=== PATIENT | male | born 1945 | race Caucasian/White ===

== ENCOUNTER → 2018-08-24 09:22 | Outpatient (CLI) | payer MEDICARE, SELFPAY ==
[2018-08-24] VITALS (8 sets, daily range): BP systolic 129–161; BP diastolic 60–76; PULSE 61–72; RESP 16–18; TEMP 36.4–36.8; O2SAT 95–98; BMI 26.6
[2018-08-24] MEDS: Acetaminophen 325 MG Tablet 650 MG PO (10:40)
[2018-08-24] MEDS: DiphenhydrAMINE 25 MG Capsule 50 MG PO (10:40)
== END ==
PROVIDERS: Family Provider Physician Assistant; PCP Physician Assistant; Referring Provider Internal Medicine Hematology & Oncology; Visit Provider Internal Medicine Hematology & Oncology
DX: D46.20 Refractory anemia with excess of blasts, unspecified (principal)
CPT/HCPCS: 36430; 86850; 86900; 86920; 86922; J7040; P9040; A4216

== ENCOUNTER → 2018-11-12 10:37 | Outpatient (CLI) | payer MEDICARE, SELFPAY ==
[2018-11-12 10:48] VITALS: BP 142/74; PULSE 71; RESP 16; TEMP 36.7; O2SAT 97; BMI 26.2
[2018-11-12] MEDS: Acetaminophen 325 MG Tablet 650 MG PO (10:58)
[2018-11-12 11:39] VITALS: BP 103/58; PULSE 65; RESP 16; TEMP 36.9; O2SAT 97
[2018-11-12 11:43] VITALS: BP 127/63; PULSE 64; RESP 15; TEMP 36.4; O2SAT 97
[2018-11-12 12:39] VITALS: BP 142/72; PULSE 68; RESP 16; TEMP 36.1; O2SAT 97
[2018-11-12 13:41] VITALS: BP 132/62; PULSE 69; RESP 16; TEMP 36.6; O2SAT 97
== END ==
PROVIDERS: Family Provider Physician Assistant; PCP Physician Assistant; Referring Provider Internal Medicine Hematology & Oncology; Visit Provider Internal Medicine Hematology & Oncology
DX: Z51.89 Encounter for other specified aftercare (principal); D46.20 Refractory anemia with excess of blasts, unspecified
CPT/HCPCS: 36430; 86850; 86900; 86920; 86922; J7040; P9016; A4216

== ENCOUNTER → 2018-12-25 08:37 | Outpatient (CLI) | payer MEDICARE, SELFPAY ==
[2018-11-12 10:48] VITALS: BMI 26.2
[2018-12-25] VITALS (7 sets, daily range): BP systolic 132–152; BP diastolic 55–80; PULSE 63–71; RESP 16–18; TEMP 36.1–36.4; O2SAT 95–99; BMI 26.1
== END ==
PROVIDERS: Family Provider Physician Assistant; PCP Physician Assistant; Referring Provider Internal Medicine Hematology & Oncology; Visit Provider Internal Medicine Hematology & Oncology
DX: D46.20 Refractory anemia with excess of blasts, unspecified (principal)
CPT/HCPCS: 36430; 86644; 86850; 86900; 86920; 86922; J7040; P9016; A4216

== ENCOUNTER → 2019-02-19 08:00 | Outpatient (CLI) | payer MEDICARE, SELFPAY ==
[2018-12-25 08:44] VITALS: BMI 26.1
[2019-02-19] VITALS (8 sets, daily range): BP systolic 128–148; BP diastolic 54–63; PULSE 65–74; RESP 16–18; TEMP 36.4–37; O2SAT 98–100; BMI 25.8
== END ==
PROVIDERS: Family Provider Physician Assistant; PCP Physician Assistant; Referring Provider Internal Medicine Hematology & Oncology; Visit Provider Internal Medicine Hematology & Oncology
DX: D46.9 Myelodysplastic syndrome, unspecified (principal)
CPT/HCPCS: 36430; 86850; 86900; 86920; 86922; J7040; P9016; A4216

== ENCOUNTER → 2019-04-16 09:00 | Outpatient (CLI) | payer MEDICARE, SELFPAY ==
[2019-02-19 08:11] VITALS: BMI 25.8
[2019-04-16] VITALS (7 sets, daily range): BP systolic 123–145; BP diastolic 47–89; PULSE 62–76; RESP 15–18; TEMP 36.4–37; O2SAT 98–100; BMI 25.8
== END ==
PROVIDERS: Family Provider Physician Assistant; PCP Physician Assistant; Referring Provider Internal Medicine Hematology & Oncology; Visit Provider Internal Medicine Hematology & Oncology
DX: D46.20 Refractory anemia with excess of blasts, unspecified (principal); D46.9 Myelodysplastic syndrome, unspecified
CPT/HCPCS: 36430; 86850; 86900; 86920; J7040; P9016; A4216

== ENCOUNTER → 2019-05-28 08:27 | Outpatient (CLI) | payer MEDICARE, SELFPAY ==
[2019-04-16 09:09] VITALS: BMI 25.8
[2019-05-28] VITALS (7 sets, daily range): BP systolic 118–142; BP diastolic 45–62; PULSE 58–67; RESP 16–18; TEMP 36.1–36.6; O2SAT 98–100; BMI 25.1
== END ==
PROVIDERS: Family Provider Physician Assistant; PCP Physician Assistant; Referring Provider Internal Medicine Hematology & Oncology; Visit Provider Internal Medicine Hematology & Oncology
DX: D46.20 Refractory anemia with excess of blasts, unspecified (principal)
CPT/HCPCS: 36430; 86850; 86900; 86920; 86922; J7040; P9016; A4216

== ENCOUNTER → 2019-07-09 08:32 | Outpatient (CLI) | payer MEDICARE, SELFPAY ==
[2019-05-28 08:35] VITALS: BMI 25.1
[2019-07-09 08:42] VITALS: BP 148/51; PULSE 85; RESP 16; TEMP 36.6; O2SAT 100; BMI 24.5
[2019-07-09 09:13] VITALS: BP 127/51; PULSE 68; RESP 15; TEMP 36.8; O2SAT 99
[2019-07-09 10:13] VITALS: BP 116/52; PULSE 65; RESP 16; TEMP 36.6; O2SAT 98
[2019-07-09 11:13] VITALS: BP 119/50; PULSE 60; RESP 16; TEMP 36.6; O2SAT 100
[2019-07-09 11:45] VITALS: BP 125/49; PULSE 58; RESP 16; TEMP 36.8; O2SAT 99
[2019-07-09 13:46] VITALS: BP 141/54; PULSE 65; RESP 16; TEMP 36.7; O2SAT 99
== END ==
PROVIDERS: Family Provider Physician Assistant; PCP Physician Assistant; Referring Provider Internal Medicine Hematology & Oncology; Visit Provider Internal Medicine Hematology & Oncology
DX: D46.9 Myelodysplastic syndrome, unspecified (principal)
CPT/HCPCS: 36430; 86850; 86900; 86901; 86920; 86922; J7040; P9016; A4216

== ENCOUNTER → 2019-08-18 07:58 | Outpatient (CLI) | payer MEDICARE, SELFPAY ==
[2019-07-09 08:42] VITALS: BMI 24.5
[2019-08-18] VITALS (7 sets, daily range): BP systolic 126–147; BP diastolic 57–71; PULSE 60–69; RESP 16; TEMP 36.1–36.5; O2SAT 99–100; BMI 24.3
== END ==
PROVIDERS: Family Provider Physician Assistant; PCP Physician Assistant; Referring Provider Internal Medicine Hematology & Oncology; Visit Provider Internal Medicine Hematology & Oncology
DX: D46.20 Refractory anemia with excess of blasts, unspecified (principal)
CPT/HCPCS: 36430; 86850; 86900; 86901; 86920; 86922; J7040; P9016; A4216

== ENCOUNTER → 2019-09-24 09:56 | Outpatient (CLI) | payer MEDICARE, SELFPAY ==
[2019-08-18 08:22] VITALS: BMI 24.3
[2019-09-24] VITALS (7 sets, daily range): BP systolic 124–154; BP diastolic 48–61; PULSE 60–77; RESP 16–18; TEMP 36.1–36.8; O2SAT 98–100; BMI 24.3
== END ==
PROVIDERS: Family Provider Physician Assistant; PCP Physician Assistant; Referring Provider Internal Medicine Hematology & Oncology; Visit Provider Internal Medicine Hematology & Oncology
DX: D46.20 Refractory anemia with excess of blasts, unspecified (principal)
CPT/HCPCS: 36430; 86850; 86900; 86901; 86920; 86922; J7040; P9016; A4216

== ENCOUNTER → 2019-10-29 08:52 | Outpatient (CLI) | payer MEDICARE, SELFPAY ==
[2019-09-24 10:17] VITALS: BMI 24.3
[2019-10-29] VITALS (7 sets, daily range): BP systolic 124–158; BP diastolic 57–72; PULSE 62–77; RESP 16–18; TEMP 36.1–36.3; O2SAT 98–100; BMI 24.8
== END ==
PROVIDERS: Family Provider Physician Assistant; PCP Physician Assistant; Referring Provider Internal Medicine Hematology & Oncology; Visit Provider Internal Medicine Hematology & Oncology
DX: D46.20 Refractory anemia with excess of blasts, unspecified (principal)
CPT/HCPCS: 36430; 86850; 86900; 86901; 86920; 86922; J7040; P9016; A4216

== ENCOUNTER → 2019-12-03 08:26 | Outpatient (CLI) | payer MEDICARE, SELFPAY ==
[2019-10-29 08:58] VITALS: BMI 24.8
[2019-12-03] VITALS (7 sets, daily range): BP systolic 123–144; BP diastolic 44–65; PULSE 62–75; RESP 16–18; TEMP 35.9–36.7; O2SAT 96–100; BMI 24.8
== END ==
PROVIDERS: PCP Physician Assistant; Referring Provider Internal Medicine Hematology & Oncology; Visit Provider Internal Medicine Hematology & Oncology
DX: D46.20 Refractory anemia with excess of blasts, unspecified (principal)
CPT/HCPCS: 36430; 86850; 86900; 86901; 86920; 86922; J7040; P9016; A4216

== ENCOUNTER → 2019-12-17 11:39 | Outpatient (CLI) | payer MEDICARE, SELFPAY ==
[2019-12-03 08:40] VITALS: BMI 24.8
[2019-12-17 11:47] VITALS: BP 163/65; PULSE 80; RESP 18; TEMP 35.7; O2SAT 96; BMI 24.8
[2019-12-17 12:44] VITALS: BP 138/64; PULSE 65; RESP 18; TEMP 36; O2SAT 97
[2019-12-17 13:45] VITALS: BP 137/76; PULSE 78; RESP 16; TEMP 36.7
[2019-12-17 14:11] VITALS: BP 142/59; PULSE 66; RESP 16; TEMP 36.3; O2SAT 98
[2019-12-17 14:31] VITALS: BP 153/67; PULSE 68; RESP 16; TEMP 36.3; O2SAT 98
== END ==
PROVIDERS: PCP Physician Assistant; Referring Provider Internal Medicine Hematology & Oncology; Visit Provider Internal Medicine Hematology & Oncology
DX: D46.20 Refractory anemia with excess of blasts, unspecified (principal)
CPT/HCPCS: 36430; 86850; 86900; 86901; 86920; 86922; J7040; P9016; A4216

== ENCOUNTER → 2019-12-31 08:59 | Outpatient (CLI) | payer MEDICARE, SELFPAY ==
[2019-12-17 11:47] VITALS: BMI 24.8
[2019-12-31 09:05] VITALS: BP 160/68; PULSE 79; RESP 16; TEMP 36.3; O2SAT 98; BMI 24.8
[2019-12-31 09:43] VITALS: BP 145/66; PULSE 67; RESP 16; TEMP 36.6
[2019-12-31 10:43] VITALS: BP 139/62; PULSE 62; RESP 18; TEMP 36.1; O2SAT 97
[2019-12-31 11:42] VITALS: BP 127/62; PULSE 60; RESP 16; TEMP 36.3; O2SAT 98
== END ==
PROVIDERS: PCP Physician Assistant; Referring Provider Internal Medicine Hematology & Oncology; Visit Provider Internal Medicine Hematology & Oncology
DX: D46.20 Refractory anemia with excess of blasts, unspecified (principal)
CPT/HCPCS: 36430; 86850; 86900; 86901; 86920; 86922; J7040; P9016; A4216

== ENCOUNTER → 2020-01-21 08:20 | Outpatient (CLI) | payer MEDICARE, SELFPAY ==
[2019-12-31 09:05] VITALS: BMI 24.8
[2020-01-21 08:29] VITALS: BP 161/60; PULSE 74; RESP 16; TEMP 36.2; O2SAT 100; BMI 24.8
[2020-01-21 09:04] VITALS: BP 133/52; PULSE 68; RESP 16; TEMP 36.6; O2SAT 98
[2020-01-21 10:04] VITALS: BP 133/50; PULSE 67; RESP 16; TEMP 36.4; O2SAT 99
[2020-01-21 10:45] VITALS: BP 135/53; PULSE 66; RESP 16; TEMP 36.4; O2SAT 100
== END ==
PROVIDERS: PCP Physician Assistant; Referring Provider Internal Medicine Hematology & Oncology; Visit Provider Internal Medicine Hematology & Oncology
DX: D46.20 Refractory anemia with excess of blasts, unspecified (principal)
CPT/HCPCS: 36430; 86850; 86900; 86901; 86920; 86922; J7040; P9016; A4216

== ENCOUNTER → 2020-02-23 09:23 | Outpatient (CLI) | payer MEDICARE, SELFPAY ==
[2020-01-21 08:29] VITALS: BMI 24.8
[2020-02-23 09:29] VITALS: BP 155/61; PULSE 78; RESP 16; TEMP 36.2; O2SAT 100; BMI 24.8
[2020-02-23] MEDS: 0.9% NaCl Peripheral Flush Adult/Peds IV (09:46)
[2020-02-23 10:24] VITALS: BP 133/57; PULSE 66; RESP 18; TEMP 36.5; O2SAT 96
[2020-02-23 11:24] VITALS: BP 130/54; PULSE 64; RESP 18; TEMP 36.1; O2SAT 97
[2020-02-23 12:15] VITALS: BP 132/59; PULSE 61; RESP 18; TEMP 36.4; O2SAT 100
== END ==
PROVIDERS: PCP Physician Assistant; Referring Provider Internal Medicine Hematology & Oncology; Visit Provider Internal Medicine Hematology & Oncology
DX: D46.20 Refractory anemia with excess of blasts, unspecified (principal)
CPT/HCPCS: 36430; 86850; 86900; 86901; 86920; 86922; J7040; P9016; A4216

== ENCOUNTER → 2020-03-24 08:31 | Outpatient (CLI) | payer MEDICARE, SELFPAY ==
[2020-02-23 09:29] VITALS: BMI 24.8
[2020-03-24] VITALS (9 sets, daily range): BP systolic 129–143; BP diastolic 53–67; PULSE 57–98; RESP 16–18; TEMP 36.3–37; O2SAT 98–100; BMI 24.8
--- OUTSIDE RECORDS SUMMARY | 2020-08-22 11:03 | XMS RPT_ITS | CCD ---
:1945 External Reference #:[id number] Author Organization [facility] Care Team Providers Name Role Phone Silas Carter) Primary Care Provider Allergies Reported Allergen Reaction(s) Severity Date of Onset Location antibiotics [Other] Other: See Comments 03-15-2011 - [facility] ([id number]) fluticasone / salmeterol Other: See Comments 1 - [facility] ([id number]) PARoxetine Other: See Comments 11-07-2017 [facility] ([id number]) Sulfamethoxazole GI Upset 01-20-2013 - [facility] ([id number]) Medications Medication Name Sig Date Prescriber Location Acetaminophen acetaminophen (TYLENOL EXTRA Ccf Provide r [facility] STRENGTH) 500 mg tablet (991 [id number]) Indications: MDS (myelodysplastic syndrome), low grade (HCC) Take 1,000 mg by mouth as needed. 0 Active Comment: Take 1,000 mg by mouth as ne eded. Albuterol albuterol HFA (VENTOLIN HFA) 06-02-2018 hollingsworth-Victoria) [facility] 90 mcg/actuation inhaler Raul ([id number]) Inhale 2 Puffs as instructed every 4 hours as needed for Wheezing/Shortness of Breath. 1 Inhaler 2 06/02/2018 Active Comment: Inhale 2 Puffs as instructed every 4 hours as needed for Wheezing/Shortness of Breath. Calcium Carbonate calcium carbonate 06-12-2020 Yuan) [facility] (CALCIUM ANTACID) Raul ([id number]) 500 mg chew Take 1-2 tablets by mouth once daily. 0 06/12/2020 Active Comment: Take 1-2 tablets by mouth on ce daily. Cephalexin cephALEXin (KEFLEX) 06-12-2020 - Sunday Yuan) [facility] 500 mg capsule 06-15-2020 Carter Sunday Rosen ([id number]) Indications: E. coli (Pa-C) Carter UTI Take 1 capsule by mouth every 8 hours. Started 06/02/20 21 capsule 0 06/12/2020 06/15/2020 Discontinued Comment: Take 1 capsule by mouth ever y 8 hours. Started 06/02/20 Cholecalciferol cholecalciferol (VITAMIN 06-12-2020 Rojas) [facility] D-3) 5,000 unit tab Carter ([id number]) Indications: MDS (myelodysplastic syndrome), low grade (HCC) Take 1 tablet by mouth once daily. 0 06/12/2020 Active Comment: Take 1 tablet by mouth once daily. COMPOUNDED COMPOUNDED 03-31-2018 [facility] PRESCRIPTION PRESCRIPTION (Niels-Victoria) Carter ([id number]) Indications: Stasis edema of both lower extremities Compression stockings 30-40mmHg 2 pairs Stasis edema of both lower extremities (primary encounter diagnosis) 1 Each 0 03/31/2018 Active COMPOUNDED PRESCRIPTION 03-31-2018 Yuan) [facility] ([id number]) Indications: Stasis edema of Carter both lower extremities Compression stockings 30-40mmHg 2 pairs Stasis edema of both lower extremities (primary encounter diagnosis) 1 Each 0 03/31/2018 Active COMPOUNDED PRESCRIPTION 03-31-2018 Yuan) [facility] ([id number]) Indications: Stasis edema of Carter both lower extremities Compression stockings 30-40mmHg 2 pairs Stasis edema of both lower extremities (primary encounter diagnosis) 1 Each 0 03/31/2018 Active COMPOUNDED PRESCRIPTION 03-31-2018 Yuan) [facility] ([id number]) Indications: Stasis edema of Carter both lower extremities Compression stockings 30-40mmHg 2 pairs Stasis edema of both lower extremities (primary encounter diagnosis) 1 Each 0 03/31/2018 Active COMPOUNDED PRESCRIPTION 03-31-2018 Yuan) [facility] ([id number]) Indications: Stasis edema of Carter both lower extremities Compression stockings 30-40mmHg 2 pairs Stasis edema of both lower extremities (primary encounter diagnosis) 1 Each 0 03/31/2018 Active COMPOUNDED PRESCRIPTION 03-31-2018 Dave-Victoria) [facility] ([id number]) Indications: Stasis edema of Carter both lower extremities Compression stockings 30-40mmHg 2 pairs Stasis edema of both lower extremities (primary encounter diagnosis) 1 Each 0 03/31/2018 Active COMPOUNDED PRESCRIPTION 03-31-2018 Dave-Victoria) [facility] ([id number]) Indications: Stasis edema of Carter both lower extremities Compression stockings 30-40mmHg 2 pairs Stasis edema of both lower extremities (primary encounter diagnosis) 1 Each 0 03/31/2018 Active COMPOUNDED PRESCRIPTION 03-31-2018 Dave-C) [facility] ([id number]) Indications: Stasis edema of Carter both lower extremities Compression stockings 30-40mmHg 2 pairs Stasis edema of both lower extremities (primary encounter diagnosis) 1 Each 0 03/31/2018 Active COMPOUNDED PRESCRIPTION 03-31-2018 [facility] ([id number]) Indications: Stasis edema of Carter both lower extremities Compression stockings 30-40mmHg 2 pairs Stasis edema of both lower extremities (primary encounter diagnosis) 1 Each 0 03/31/2018 Active COMPOUNDED PRESCRIPTION 03-31-2018 Yuan) [facility] ([id number]) Indications: Stasis edema of Carter both lower extremities Compression stockings 30-40mmHg 2 pairs Stasis edema of both lower extremities (primary encounter diagnosis) 1 Each 0 03/31/2018 Active COMPOUNDED PRESCRIPTION 03-31-2018 Dave-Victoria) [facility] ([id number]) Indications: Stasis edema of Carter both lower extremities Compression stockings 30-40mmHg 2 pairs Stasis edema of both lower extremities (primary encounter diagnosis) 1 Each 0 03/31/2018 Active COMPOUNDED PRESCRIPTION 03-31-2018 Dave-Victoria) [facility] ([id number]) Indications: Stasis edema of Carter both lower extremities Compression stockings 30-40mmHg 2 pairs Stasis edema of both lower extremities (primary encounter diagnosis) 1 Each 0 03/31/2018 Active COMPOUNDED PRESCRIPTION 03-31-2018 Dave-C) [facility] ([id number]) Indications: Stasis edema of Carter both lower extremities Compression stockings 30-40mmHg 2 pairs Stasis edema of both lower extremities (primary encounter diagnosis) 1 Each 0 03/31/2018 Active COMPOUNDED PRESCRIPTION 03-31-2018 Yuan) [facility] ([id number]) Indications: Stasis edema of Carter both lower extremities Compression stockings 30-40mmHg 2 pairs Stasis edema of both lower extremities (primary encounter diagnosis) 1 Each 0 03/31/2018 Active Comment: Compression stockings 30-40m mHg 2 pairs Stasis edema of both lower e xtremities (primary encounter diagnosis) Cranberry preparation Cranberry 400 mg 06-12-2020 Rosen (MattieC ) [facility] cap Take 4 capsules Carter ([id number]) by mouth once daily. 0 06/12/2020 Active Comment: Take 4 capsules by mouth onc e daily. Fluconazole fluconazole 06-12-2020 - Sunday Yuan) [facility] (DIFLUCAN) 150 mg 06-13-2020 Raul Rosen ([id number] ) tablet Indications: (Niels-C) Raul Dysuria Take 1 tablet by mouth once daily for 1 day. 1 tablet 0 06/12/2020 06/13/2020 Comment: Take 1 tablet by mouth once daily for 1 day. gabapentin gabapentin (NEURONTIN) 05-23-2020 - Sunday Rosen [facility] 300 mg capsule 08-21-2020 (MattieC) Raul ([id number]) Indications: Chronic midline low back pain without sciatica , Polyneuropathy in other diseases classified elsewhere (HCC) Take 1 capsule by mouth three times daily for 90 days. 270 capsule 1 05/23/2020 08/21/2020 Active Comment: Take 1 capsule by mouth thre e times daily for 90 days. guaiFENesin guaiFENesin (MUCINEX) 06-12-2020 - Sunday Rosen (MattieC) Cl bernice [facility] 600 mg 12 hr tablet 06-15-2020 Raul Rosen ([id number]) Take 2 tablets by (Niels-Victoria) Carter mouth twice daily. Started 06/02/20 14 tablet 0 06/12/2020 06/15/2020 Discontinued Comment: Take 2 tablets by mouth twic e daily. Started 06/02/20 montelukast montelukast (SINGULAIR) 02-16-2020 Shaheed Shukla [facility] 10 mg tablet Take 1 ([id number]) tablet by mouth daily at bedtime. 90 tablet 3 02/16/2020 Active Comment: Take 1 tablet by mouth daily at bedtime. omega-3 fatty acids omega-3 fatty acids 02-27-2017 - Silas [facility] (FISH OIL (FISH OIL 06-15-2020 (Niels-Victoria) Carter ([id number]) CONCENTRATE) 1,000 CONCENTRATE) 1,000 M Silas mg cap mg cap Take 2 (Diaz) Carter capsules by mouth twice daily. 360 capsule 3 02/27/2017 06/15/2020 Discontinued Comment: Take 2 capsules by mouth twi ce daily. Omeprazole omeprazole (PRILOSEC) 20 mg 06-08-2020 [facility] ([id number]) capsule Take 2 capsules by mouth once daily. 180 capsule 0 06/08/2020 Active Comment: Take 2 capsules by mouth onc e daily. POLYETHYLENE GLYCOL polyethylene glycol [id number] (MIRALAX) 17 (Diaz) Carter ([id number]) gram packet Indications: Chronic constipation Take 1 Packet by mouth once daily. 0 06/12/2020 Active Comment: Take 1 Packet by mouth once daily. tadalafil Tadalafil 2.5 mg tab 06-19-2020 Silas (Diaz) [facility] Indications: BPH with Carter (65514 ) obstruction/lower urinary tract symptoms Take 1 tablet by mouth once daily. 30 tablet 5 06/19/2020 Active Comment: Take 1 tablet by mouth once daily. Vitamin B6 pyridoxine, vitamin B6, (VITAMIN Ccf Prov ider [facility] (75485) B-6) 100 mg tablet Take 100 mg by mouth twice daily. 0 Active Comment: Take 100 mg by mouth twice d aily. 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 - [facility] macroglobulinemia (75469) Other nervous system 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 - [facility] disorders with another disorder (45399 ) Pulmonary heart disease Pulmonary hypertension Active 020 - [facility] (19350) Respiratory failure; Acute respiratory failure Active - [facility] insufficiency; arrest (48527 ) (adult) Unclassified Patient encounter status Active 06-02-2020 - [facility] (07807) Unclassified H/O: blood transfusion Active 12-24-2018 - [facility] (66596) Unclassified Protein level - finding Active 07-14-2015 - [facility] (05916) Past or Other Problems Category Problem Name Status Date Location Deficiency and other Macrocytic anemia Completed 07-14-2015 - [facility] anemia (28612) Neoplasms of Myelodysplastic syndrome Completed 12-13-2015 - [facility] unspecified nature or (clinical) (72151 ) uncertain behavior Other and unspecified Benign neoplasm of rectum Completed 2011 - [facility] benign neoplasm and anal canal (48679) Other and unspecified Benign neoplasm of colon Completed 012 - [facility] benign neoplasm (48705) Other connective Swelling of limb Completed 05-22-2018 - [facility] tissue disease (08707) Other lower Cough Completed 05-22-2018 - [facility] respiratory disease (62905) Other screening for Monoclonal IgM present Completed 08-14-2015 - [facility] suspected conditions (92855) (not mental disorders or infectious disease) Residual codes; Family history of Completed 01-23-2012 - [facility] unclassified malignant neoplasm of (08602 ) gastrointestinal tract Varicose veins of Venous varices Completed 01-30-2012 - [facility] lower extremity (53278) Results Result Name Value Range Unit Interpretation Flag Date Location cnpn on 2020-07-27 CNPN Telephone (HEMSANTI) Normal 07-27-2020 [facility] LORETA HURST ([id number]) 1945 M [facility] Date Time Provider Department ([id number]) 07/27/20 STEVEN AKERS During your visit today, we recorded the following informati on about you: Marina Martinez Pss 07/27/2020 3:39 PM Signed Please call patient with lab results. He is asking if he nee ds to have treatment tomorrow at [facility]. Margot De La Rosa LPN 07/27/2020 3:54 PM Signed Patient scheduled for 1 unit PRBC's 07/28/2020 @ [facility], [facility]. Orders faxed. Patient and lab aware. Margot De La Rosa LPN Allergies As of Date: 07/27/2020 Noted Allergy Reaction ADVAIR DISKUS (FLUTICASONE PROPIO*03/15/2011 14 - Other: See Comments Comments: oral yeast infection antibiotics [Other] 03/15/2011 14 - Other: See Comments Comments: Anything in Levaquin family BACTRIM (SULFAMETHOXAZOLE) 01/20/2013 8 - GI Upset PAXIL (PAROXETINE HCL) 11/07/2017 14 - Other: See Comments Comments: Mouth sores, sore throat, salivating constantly, t in taste in his mouth Date Reviewed: 06/15/2020 Reviewed by: Steven Akers - Fully Assessed Reason for Visit: Results [95] Prescriptions as of 07/27/2020 Sig: TADALAFIL 2.5 MG TABLET Take 1 tablet by mouth once d* CALCIUM CARBONATE 200 MG CALC* Take 1-2 tablets by mouth onc * CRANBERRY 400 MG CAPSULE Take 4 capsules by mouth once* CHOLECALCIFEROL (VITAMIN D3) * Take 1 tablet by mouth once d * POLYETHYLENE GLYCOL 3350 17 G* Take 1 Packet by mouth once d * OMEPRAZOLE 20 MG CAPSULE,PORTER* Take 2 capsules by mouth once * GABAPENTIN 300 MG CAPSULE Take 1 capsule by mouth three* MONTELUKAST 10 MG TABLET Take 1 tablet by mouth daily * ALBUTEROL SULFATE HFA 90 MCG/* Inhale 2 Puffs as instructed * COMPOUNDED PRESCRIPTION Compression stockings 30-40mm* PYRIDOXINE (VITAMIN B6) 100 M* Take 100 mg by mouth twice da * ACETAMINOPHEN 500 MG TABLET Take 1,000 mg by mouth as nee* Problem List As Of Date 07/27/2020 Noted Resolved Diverticulosis [K57.90] 01/23/2012 Family history of malignant neoplasm of gastroi*01/23/2012 More... 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 Pulmonary hypertension, mild (HCC) [I27.20] 06/12/2020 Acute respiratory failure with hypoxia (HCC) [J*06/12/2020 Ileus (HCC) [K56.7] 06/12/2020 Encounter Status:Closed by MARGOT DE LA ROSA LPN on 07/27/20 cbc and differential on 2020-07-27 Abs Baso 0.03 <0.11 k/uL Normal 07-27-2020 [facility] ([id number]) Abs Vance 0.35 <0.87 k/uL Normal 07-27-2020 [facility] ([id number]) Abs Neut 3.12 1.45-7.50 k/uL Normal 07-27-2020 [facility] (75782) Absolute nRBC <0.01 <0.01 Normal 07-27-2020 [facility] (24533) Basophils/100 WBC 0.6 % Normal 07-27-2020 [facility] (Bld) [facility] ([id number]) DTYPE Auto Diff Normal 07-27-2020 [facility] (48560) Eosinophils (Bld) 0.06 <0.46 k/uL Normal 07-27-2020 [facility] [#/Vol] [facility] (74301) Eosinophils/100 WBC 1.3 % Normal 07-27-2020 [facility] (Bld) [facility] ([id number]) Erythrocyte 22.4 11.5-15.0 % High 07-27-2020 [facility] distribution width [facility] (03287) (RBC) [Ratio] Hematocrit (Bld) 26.8 39.0-51.0 % Low 07-27-2020 [facility] [Volume fraction] [facility] (71434) Hemoglobin (Bld) 8.9 13.0-17.0 g/dL Low 07-27-2020 [facility] [Mass/Vol] [facility] ([id number]) Lymphocytes (Bld) 1.06 1.00-4.00 k/uL Normal 07-27-2020 [facility] [#/Vol] [facility] (91763) Lymphocytes/100 WBC 22.9 % Normal 07-27-2020 [facility] (d) [place] (47510) MCH (RBC) [Entitic 34.6 26.0-34.0 pG High 07-27-2020 [facility] mass] [facility] (17954) MCHC (RBC) 33.2 30.5-36.0 g/dL Normal 07-27-2020 [facility] [Mass/Vol] [facility] (27405) MCV (RBC) [Entitic 104.3 80.0-100.0 fL High 07-27-2020 [facility] vol] [facility] (27277) Monocytes/100 WBC 7.6 % Normal 07-27-2020 [facility] (Bld) [place] (68228) Neutrophils/100 WBC 67.6 % Normal 07-27-2020 [facility] (Bld) [facility] (57156) NRBCs 0.0 0 /100 WBC Normal 07-27-2020 [facility] (14850) Platelet mean volume 10.2 9.0-12.7 fL Normal 0 [facility] (Bld) [Entitic vol] [facility] (93413) Platelets (Bld) 260 150-400 k/uL Normal 07-27-2020 [facility] [#/Vol] [facility] (77846) RBC (Bld) [#/Vol] 2.57 4.20-6.00 m/uL Low 07-27-2020 [facility] (75074) WBC (Bld) [#/Vol] 4.62 3.70-11.00 k/uL Normal 07-27-2020 [facility] (06333) cnpn on 2020-06-29 CNPN Telephone (HEMAWS) Normal 06-29-2020 [facility] LORETA HURST ([id number]) 1945 M [place] Date Time Provider Department () 06/29/20 STEVEN AKERS During your visit today, we recorded the following informati on about you: Margot De La Rosa LPN 06/29/2020 12:23 PM Signed Patient scheduled for 2 units PRBC's 06/30/2020 @ 09, [facility]. Orders faxed. Patient and lab aware. Margot De La Rosa LPN Allergies As of Date: 06/29/2020 Noted Allergy Reaction ADVAIR DISKUS (FLUTICASONE PROPIO*03/15/2011 14 - Other: See Comments Comments: oral yeast infection antibiotics [Other] 03/15/2011 14 - Other: See Comments Comments: Anything in Levaquin family BACTRIM (SULFAMETHOXAZOLE) 01/20/2013 8 - GI Upset PAXIL (PAROXETINE HCL) 11/07/2017 14 - Other: See Comments Comments: Mouth sores, sore throat, salivating constantly, t in taste in his mouth Date Reviewed: 06/15/2020 Reviewed by: Steven Akers - Fully Assessed Reason for Visit: Transfusion [880] Prescriptions as of 06/29/2020 Sig: TADALAFIL 2.5 MG TABLET Take 1 tablet by mouth once d* CALCIUM CARBONATE 200 MG CALC* Take 1-2 tablets by mouth onc * CRANBERRY 400 MG CAPSULE Take 4 capsules by mouth once* CHOLECALCIFEROL (VITAMIN D3) * Take 1 tablet by mouth once d * POLYETHYLENE GLYCOL 3350 17 G* Take 1 Packet by mouth once d * OMEPRAZOLE 20 MG CAPSULE,PORTER* Take 2 capsules by mouth once * GABAPENTIN 300 MG CAPSULE Take 1 capsule by mouth three* MONTELUKAST 10 MG TABLET Take 1 tablet by mouth daily * ALBUTEROL SULFATE HFA 90 MCG/* Inhale 2 Puffs as instructed * COMPOUNDED PRESCRIPTION Compression stockings 30-40mm* PYRIDOXINE (VITAMIN B6) 100 M* Take 100 mg by mouth twice da * ACETAMINOPHEN 500 MG TABLET Take 1,000 mg by mouth as nee* Problem List As Of Date 06/29/2020 Noted Resolved Diverticulosis [K57.90] 01/23/2012 Family history of malignant neoplasm of gastroi*01/23/2012 More... 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 Pulmonary hypertension, mild (HCC) [I27.20] 06/12/2020 Acute respiratory failure with hypoxia (HCC) [J*06/12/2020 Ileus (HCC) [K56.7] 06/12/2020 Encounter Status:Closed by MARGOT DE LA ROSA LPN on 06/29/20 cbc and differential on 2020-06-29 Abs Baso 0.03 <0.11 k/uL Normal 06-29-2020 [facility] ([id number]) Abs Vance 0.33 <0.87 k/uL Normal 06-29-2020 [facility] ([id number]) Abs Neut 2.72 1.45-7.50 k/uL Normal 06-29-2020 [facility] (75457) Absolute nRBC <0.01 <0.01 Normal 06-29-2020 [facility] (08631) Basophils/100 WBC 0.7 % Normal 06-29-2020 [facility] (d) [place] (25992) DTYPE Auto Diff Normal 06-29-2020 [facility] ([id number]) Eosinophils (d) 0.06 <0.46 k/uL Normal 06-29-2020 [facility] [#/Vol] [place] ([id number]) Eosinophils/100 WBC 1.4 % Normal 06-29-2020 [facility] (Bld) [place] ([id number]) Erythrocyte 21.1 11.5-15.0 % High 06-29-2020 [facility] distribution width [facility] (42301) (RBC) [Ratio] Hematocrit (Bld) 28.0 39.0-51.0 % Low 06-29-2020 [facility] [Volume fraction] [facility] (39772) Hemoglobin (Bld) 9.2 13.0-17.0 g/dL Low 06-29-2020 [facility] [Mass/Vol] [place] (33786) Lymphocytes (Bld) 1.27 1.00-4.00 k/uL Normal 06-29-2020 [facility] [#/Vol] [facility] (46358) Lymphocytes/100 WBC 28.7 % Normal 06-29-2020 [facility] (Bld) [facility] ([id number]) MCH (RBC) [Entitic 33.7 26.0-34.0 pG Normal 06-29-2020 [facility] mass] [facility] (63445) MCHC (RBC) 32.9 30.5-36.0 g/dL Normal 06-29-2020 [facility] [Mass/Vol] [facility] (76956) MCV (RBC) [Entitic 102.6 80.0-100.0 fL High 06-29-2020 [facility] vol] [facility] (00734) Monocytes/100 WBC 7.5 % Normal 06-29-2020 [facility] (Bld) [facility] (88474) Neutrophils/100 WBC 61.7 % Normal 06-29-2020 [facility] (Bld) [facility] (15675) NRBCs 0.0 0 /100 WBC Normal 06-29-2020 [facility] (28230) Platelet mean volume 10.8 9.0-12.7 fL Normal 0 [facility] (Bld) [Entitic vol] [facility] (82054) Platelets (Bld) 270 150-400 k/uL Normal 06-29-2020 [facility] [#/Vol] [facility] (95570) RBC (Bld) [#/Vol] 2.73 4.20-6.00 m/uL Low 06-29-2020 [facility] (55440) WBC (Bld) [#/Vol] 4.42 3.70-11.00 k/uL Normal 06-29-2020 [facility] (52277) No panel information on 2020-06-29 Packaging Engineer the AASM Manual for Scoring of 06-29-2020 [facility] (13696) Sleep and Associated Events version 2.5. Packaging Engineer Apnea definition: The peak 06-29-2020 [facility] (81955) signal excursions drop by >90% of pre-event Packaging Engineer baseline using an oronasal 06-29-2020 [facility] (82380) thermal sensor (diagnostic study), PAP device flow Packaging Engineer (titration study) or an [facility] (52050) alternative apnea sensor (diagnostic study). The Packaging Engineer duration of the >90% drop in 06-29-2020 [facility] (08225) signal excursion is =10 seconds. Packaging Engineer Hypopnea definition: The peak 06-29-2020 [facility] (93395) signal excursions drop by =30% of pre-event Packaging Engineer baseline using nasal pressure 06-29-2020 [facility] ([facility]) (diagnostic study), PAP device flow (titration Packaging Engineer study) or an alternative 0 06-29-2020 [facility] ([facility]) hypopnea sensor (diagnostic study). The duration of Packaging Engineer the =30% drop in signal [facility] ([facility] Center) excursion is =10 seconds. There is a greater than or Packaging Engineer equal to 4% oxygen 020 [facility] ([facility]) desaturation from pre-event baseline. Packaging Engineer RESPIRATORY DATA: 06-29-20 [facility] ([facility]) Packaging Engineer The study started at 22:19:28 06-29-2020 [facility] ([facility]) and ended at 05:32:55 and the total recording Packaging Engineer time was 433 minutes. By 06-29-2020 [facility] ([facility]) convention, sleep is assumed for the whole Packaging Engineer recording. Snoring was noted. 06-29-2020 [facility] ([facility]) There was a total of 17 respiratory events. Of Packaging Engineer these events, the total number 06-29-2020 [facility] ([facility]) of apneas was 0 (0 obstructive, 0 mixed, and 0 Packaging Engineer central) and 17 hypopneas. The 06-29-2020 [facility] ([facility]) respiratory event index (MYRTLE) was 2.4 events Packaging Engineer per hour of study time. The 06-29-2020 [facility] ([facility]) mean oxygen saturation during the study was Packaging Engineer [facility] Sleep [facility] ([facility]) Disorders [facility] Packaging Engineer minutes at oxygen saturation 06-29-2020 [facility] ([facility]) measured less than 90% (0.3% of recording time) Packaging Engineer and 0.9 minutes at oxygen 06-29-2020 [facility] ([facility]) saturation measured at or less than 88% (0.2% of Packaging Engineer recording time). 0 [facility] ([facility]) Packaging Engineer Time MYRTLE/AHI 06-29-2020 [facility] ([facility]) Packaging Engineer Supine 3.5 min 0.0 020 [facility] ([facility]) Packaging Engineer Off-Supine 430.0 min 2.4 0 06-29-2020 [facility] ([facility]) Packaging Engineer test. Since the home sleep 06-29-2020 [facility] ([id number]) apnea test does not measure sleep, the MYRTLE is most Packaging Engineer ECG DATA: 06-29-2020 [facility] ([facility]) Packaging Engineer The average heart rate was [address] [place] [address]) bpm with a range of 55 bpm to 80 bpm. Packaging Engineer ICSD DIAGNOSIS: 06-29-2020 [facility] ([facility]) Packaging Engineer Primary Snoring [R06.83] 0 06-29-2020 [facility] ([facility]) Packaging Engineer Sleep Disorder, Unspecified 06-29-2020 [place] [address]) [G47.9] Packaging Engineer IMPRESSION: 06-29-2020 [facility] ([facility]) Packaging Engineer This study does not confirm [facility] ([facility]) absence of sleep apnea. Packaging Engineer Given the intrinsic 2019 [facility] ([facility]) limitations of home sleep testing in terms of lack of Packaging Engineer detection of sleep time and [address] [place] [address] ([facility]) lack of detection of electroencephalogram-based Packaging Engineer arousals to score potentially [address] [place] [address]) important respiratory events in addition to Packaging Engineer increased possibility of [address] [place] [address] ([facility]) unresolved technical issues, the degree of sleep Packaging Engineer apnea reflected in this study [address] ([facility]) may be an underestimate of the true degree of Packaging Engineer sleep disordered breathing. 06-29-2020 [facility] ([facility]) Packaging Engineer RECOMMENDATIONS: 0 [facility] ([facility]) Packaging Engineer This type of sleep study may [address] [place] [address]) underestimate the severity of sleep apnea. Packaging Engineer Recommend an in-laboratory [address] [place] [address]) polysomnogram if sleep apnea remains highly Packaging Engineer suspected. 06-29-2020 [facility] ([facility]) Packaging Engineer INTERPRETING PHYSICIAN: [address] [place] [address] ([facility]) Packaging Engineer I attest that [facility] [address] epoch by epoch review of the entire raw data. Packaging Engineer Araceli Morales MD, MS, [facility], [facility] [place] [address] ([facility]) [facility] Packaging Engineer Diplomate of the [place] [address] [place] [address] ([facility]) Board of Sleep Medicine Packaging Engineer 06-29-2020 [facility] ([facility]) Packaging Engineer Report Digitally Signed By: 06-29-2020 [facility] ([facility]) Packaging Engineer ARACELI MORALES M.D. (06/29/2020 06-29-2020 [facility] ([facility]) 6:05:14 PM) Packaging Engineer index has been replaced by the 06-29-2020 [facility] ([facility]) respiratory event index for home sleep apnea Packaging Engineer events x 60 / TRT (total 0 06-29-2020 [facility] ([facility]) recording time in minutes). Note: the apnea hypopnea Packaging Engineer MYRTLE definition: Respiratory 06-29-2020 [facility] ([facility]) event index (MYRTLE), calculated as respiratory Packaging Engineer abdominal effort, and body 06-29-2020 [facility] ([facility]) position. Packaging Engineer pressure transducer, snoring 06-29-2020 [facility] ([facility]) via nasal pressure transducer, chest and Packaging Engineer rate, oxygen saturation, 0 06-29-2020 [place] [address]) continuous airflow with thermistor and nasal Packaging Engineer a registered sleep [address] [place] [address]) technologist. The monitored parameters included heart Packaging Engineer and was unattended. The [facility] ([facility]) patient was instructed on proper use of the device by Packaging Engineer Procedure: This study was 06-29-2020 [facility] ([facility]) performed using a Type III ambulatory PSG device Packaging Engineer Sleep procedure: PSG 06-29 [facility] ([facility]) unattended Type III, minimum of 4 parameters ([id number]) Packaging Engineer ; Fax: 0 06-29-2020 [facility] ([facility]) Packaging Engineer Medications: Tylenol, Ventolin 06-29-2020 [facility] ([facility]) HFA, Neurontin, Singulair, Prilosec Packaging Engineer failure with hypoxia 06-29 [facility] ([facility]) Packaging Engineer Myelodysplastic syndrome, 06-29-2020 [facility] ([facility]) Pulmonary hypertension, Polyneuropathy, Respiratory Packaging Engineer Past medical history: Allergic 06-29-2020 [facility] ([facility]) rhinitis, Anxiety, Depression, GERD, Packaging Engineer throat. The patient endorses 06-29-2020 [facility] ([facility]) being a habitual side sleeper. Packaging Engineer snorting, multiple awakenings 06-29-2020 [facility] ([facility]) from sleep, and waking up with dry mouth/sore Packaging Engineer sleepiness, fatigue, snoring, 06-29-2020 [facility] ([facility]) witnessed apneas, waking up choking, gasping, Packaging Engineer Sleep history: The patient is 06-29-2020 [facility] ([facility]) a 75 year old male with a history of daytime Packaging Engineer Referring Provider: uSnday CARTER 06-29-2020 [facility] ([facility]) Mailcode: [id number] Packaging Engineer 93.0%, with a minimum oxygen 06-29-2020 [facility] ([facility]) saturation of 90.0%. The patient spent 1.4 Packaging Engineer Age: 75 (: 1945) ESS: 06-29-2020 [facility] ([facility]) Neck Circ. (cm): 38.0 Packaging Engineer Name: LORETA HURST Date of 06-29-2020 [facility] ([facility]) Study: 06/20/2020 [facility]#: [id number] Packaging Engineer Home Sleep Apnea Test (HSAT) 06-29-2020 [facility] ([facility]) Study Report Packaging Engineer [address] [facility] [address], 06-29-2020 [facility] ([facility]) [place] [address] Packaging Engineer Total 433.5 min 2.4 2019 [facility] ([facility]) Packaging Engineer accurate index of respiratory 06-29-2020 [facility] ([facility]) events. The MYRTLE is a surrogate of the AHI per progress on 2020-06 PROGRESS HNO ID: [id number] Normal 06-26-2020 [facility] Author: Alexia Mancera [facility] ([id number]) Service: ? Author Type: ? Type: Progress Notes Filed: 06/26/2020 9:26 AM Note Text: Sleep Study Check-In Documentation Date: June 26, 2020 Name: Loreta Husrt Comments: HST was returned in working order with all sleep q uflaco Mancera [facility] on 2020-06-22 CNPN Telephone (FAMPWS) Normal 06-22-2020 [facility] LORETA HURST ([id number]) 1945 [facility] Date Time Provider Department ([id number]) 06/22/20 CARTER (DIAZ) ENRIQUEPWS During your visit today, we recorded the following informati on about you: Malachi Leach LPN 06/22/2020 10:04 AM Signed Prior Authorization has been completed online at [employer] for Tadalafil, will await response. ORTEGA- [id number] Please keep encounter open until final decision has been rec eived and documented from insurance company. Stacey Leach LPN Vadim Bebo 06/22/2020 1:51 PM Signed Vascular Closure Plan returned call stating me dication has been approved. She will fax details. Malachi Leach LPN 06/26/2020 3:12 PM Signed Approval recieved and sent to scanning. Stacey Leach LPN Allergies As of Date: 06/22/2020 Noted Allergy Reaction ADVAIR DISKUS (FLUTICASONE PROPIO*03/15/2011 14 - Other: See Comments Comments: oral yeast infection antibiotics [Other] 03/15/2011 14 - Other: See Comments Comments: Anything in Levaquin family BACTRIM (SULFAMETHOXAZOLE) 01/20/2013 8 - GI Upset PAXIL (PAROXETINE HCL) 11/07/2017 14 - Other: See Comments Comments: Mouth sores, sore throat, salivating constantly, t in taste in his mouth Date Reviewed: 06/15/2020 Reviewed by: Steven Akers - Fully Assessed Reason for Visit: Insurance Authorization [[id number]] Cmt: Tadalafil Prescriptions as of 06/22/2020 Sig: TADALAFIL 2.5 MG TABLET Take 1 tablet by mouth once d* CALCIUM CARBONATE 200 MG CALC* Take 1-2 tablets by mouth onc * CRANBERRY 400 MG CAPSULE Take 4 capsules by mouth once* CHOLECALCIFEROL (VITAMIN D3) * Take 1 tablet by mouth once d * POLYETHYLENE GLYCOL 3350 17 G* Take 1 Packet by mouth once d * OMEPRAZOLE 20 MG CAPSULE,PORTER* Take 2 capsules by mouth once * GABAPENTIN 300 MG CAPSULE Take 1 capsule by mouth three* MONTELUKAST 10 MG TABLET Take 1 tablet by mouth daily * ALBUTEROL SULFATE HFA 90 MCG/* Inhale 2 Puffs as instructed * COMPOUNDED PRESCRIPTION Compression stockings 30-40mm* PYRIDOXINE (VITAMIN B6) 100 M* Take 100 mg by mouth twice da * ACETAMINOPHEN 500 MG TABLET Take 1,000 mg by mouth as nee* Problem List As Of Date 06/22/2020 Noted Resolved Diverticulosis [K57.90] 01/23/2012 Family history of malignant neoplasm of gastroi*01/23/2012 More... 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 Pulmonary hypertension, mild (HCC) [I27.20] 06/12/2020 Acute respiratory failure with hypoxia (HCC) [J*06/12/2020 Ileus (HCC) [K56.7] 06/12/2020 Encounter Status:Closed by MALACHI LEACH LPN on 06/26/20 progress on 2020-06 PROGRESS HNO ID: [id number] Normal 06-19-2020 [facility] Author: Martha Dominguez ([id number]) Service: ? Author Type: ? 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 Request/Comment: - Specimen received in preservative Critically 06-15-2020 [facility] identified Cx Nom Culture Result - <10,000 CFU /ml Enterococcus faecalis --> ABNORMAL ALERT Cephalosporins, clindamycin, and TMP-SMX are not effective for the treatment of enterococcal infections. --> ABNORMAL AL abnormal Clinic (U) ERT Insignificant colony count. No further workup. --> ABNOR MAL ALERT [facility] ([id number]) Comment: Performed By: #### URCUL ### #[facility] [id number] [place], [place] [phone] progress on 2020-06 PROGRESS HNO ID: [id number] Normal 06-15-2020 [facility] Author: Steven Akers [facility] Service: ? [facility] Author Type: Physician ([id number]) Type: Progress Notes Filed: 06/15/2020 9:59 AM Note Text: Diagnoses: 1) MDS--RARS. 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 Transfusion dependent. 5) Sensory neuropathy. HPI: The patient is a 75 yo male who had an unremarkable PMH . Evaluated 06/29/2015 for c/o sore throat, malaise and low grade fever t hat had been going on for about 2 weeks. Was found to have macrocytic ane beka and elevated serum iron and ferritin. Stool hemoccult negative. 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 Declined therapy. Current therapy: 1) Periodic RBC transfusion. Presents for ongoing oncologic management. Interim history: Was admitted to [facility] ICU for 3 days for urosepsis last week J alfonzo. Had dysuria and fever to 104.5. Symptoms improved but still some dysuria. Following up with PCP. No symptoms of cardiomyopathy including chest pain/pressure, palpitations, shortness of breath at rest, lower extremity swelling/edema, PND or orthopnea. Neuropathy stable--numbness limited to toes and balls of fee t. PMH, medications and allergies as below personally reviewed by me today. Any changes documented in appropriate section. ROS: Constitutional: No episode of fever, shaking chill and night sweats. Appetite is normal. Neuro: Denies vertigo and imbalance. HEENT: No recent change in voice, vision. Resp: Denies cough, wheeze and hemoptysis. CVS: See above. GI: No dysphagia or odynophagia. No nausea or vomiting. [facility] are working normally. Has occasional diarrhea. Endo: No hot flashes. Musculoskeletal: Denies bone, back, joint and muscular pain. Derm: No rash. Heme: No unusual bleeding or bruising. Psych: Normal mood. PHYSICAL EXAM: Vitals: Blood pressure 142/65, pulse 68, temperature 36.4 ?C (97.6 ?F), temperature source Temporal, weight 79.8 kg (176 lb), SpO2 9 8 %. Well-appearing and in no acute distress. EYES: Sclerae are anicteric bilaterally. NECK: Supple. LYMPHATIC: There is no palpable cervical or supraclavicular adenopathy. RESPIRATORY: Inspiratory breath sounds are of normal intensi ty in all ariza. No rales, wheezes or rhonchi. CARDIOVASCULAR: Rhythm is regular. Normal intensity S1/S2. ABDOMEN: The abdomen is nondistended. Still very tender LUQ. Extremities: No swelling. Has compression stockings on. SKIN: No jaundice or rash. No petechiae. NEUROLOGIC: equine breeder II-XII are grossly intact. No focal motor we akness. LABS: Component Latest Ref Rng AND Units 06/08/2020 WBC 3.70 - 11.00 k/uL 6.82 RBC 4.20 - 6.00 m/uL 3.40 (L) Hemoglobin 13.0 - 17.0 g/dL 11.3 (L) Hematocrit 39.0 - 51.0 % 35.4 (L) MCV 80.0 - 100.0 fL 104.1 (H) MCH 26.0 - 34.0 pG 33.2 MCHC 30.5 - 36.0 g/dL 31.9 RDW-CV 11.5 - 15.0 % 22.9 (H) Platelet Count 150 - 400 k/uL 324 MPV 9.0 - 12.7 fL 10.5 Neut% % 68.0 Abs Neut (ANC) 1.45 - 7.50 k/uL 4.64 Lymph% % 18.0 Abs Lymph 1.00 - 4.00 k/uL 1.23 Vance% % 11.0 Abs Vance <0.87 k/uL 0.75 Eosin% % 3.0 Abs Eosin <0.46 k/uL 0.20 Baso% % 0.0 Abs Baso <0.11 k/uL 0.00 NRBC 0 /100 WBC 2 (H) Absolute nRBC <0.01 k/uL 0.14 (H) ANC(includeSEG+BAND) k/uL 4.64 Anisocytosis Present Ovalocytes Few Polychromasia Slight RBC Fragments Few Platelet Estimate Platelet estimate adequate Diff Type Manual Diff Protein, Total 6.3 - 8.0 g/dL 7.1 Albumin 3.9 - 4.9 g/dL 4.5 Calcium 8.5 - 10.2 mg/dL 9.6 Bilirubin, Total 0.2 - 1.3 mg/dL 1.0 Alkaline Phosphatase 38 - 113 U/L 71 AST 14 - 40 U/L 30 Glucose 74 - 99 mg/dL 91 BUN 9 - 24 mg/dL 10 Creatinine 0.73 - 1.22 mg/dL 0.71 (L) Sodium 136 - 144 mmol/L 142 Potassium 3.7 - 5.1 mmol/L 4.4 Chloride 97 - 105 mmol/L 104 CO2 22 - 30 mmol/L 26 Anion Gap 9 - 18 mmol/L 12 ALT 10 - 54 U/L 57 (H) eGFR- >60 eGFR-All Other Races . >60 B2 Microglobulin <3.1 mg/L 2.5 Component Latest Ref Rng AND Units 07/14/2015 11/24/2015 06/11/20 16 04/28/2017 11/13/2017 08/13/2018 06/17/2019 06/08/2020 Protein, Total 6.3 - 8.0 g/dL 7.1 6.9 6.7 7.3 7.0 7.0 6.9 6. 7 Albumin 3.37 - 4.23 gm/dL 4.47 (H) 4.26 (H) 4.21 4.58 (H) 4. 40 (H) 4.49 (H) 4.33 (H) 4.10 Alpha 1 Globulin 0.18 - 0.31 gm/dL 0.21 0.22 0.17 (L) 0.22 0 .21 0.21 0.21 0.28 Alpha 2 Globulin 0.52 - 0.97 gm/dL 0.48 (L) 0.48 (L) 0.44 (L ) 0.53 0.50 (L) 0.49 (L) 0.56 0.66 Beta Globulin 0.84 - 1.36 gm/dL 0.78 (L) 0.76 (L) 0.74 (L) 0 .74 (L) 0.67 (L) 0.62 (L) 0.62 (L) 0.57 (L) Gamma Globulin 0.70 - 1.44 gm/dL 1.17 1.17 1.15 1.24 1.23 1. 20 1.18 1.09 Interpretation (Prot Electro) SEE COMMENT SEE COMMENT SEE CO MMENT SEE COMMENT SEE COMMENT SEE COMMENT SEE COMMENT SEE COMMENT M-Protein Location (1) Gamma fraction (2) Gamma fraction N/A Gamma fraction Gamma fraction Gamma fraction Gamma fraction Gamma fraction Gamma fraction M-Protein Concentration 0.00 gm/dL (1) 0.20 (2) 0.26 0.00 0. 19 (H) 0.22 (H) 0.20 (H) 0.18 (H) 0.22 (H) 1) 0.21 (2) 0.38 SPE Staff Review Reviewed by Fausto Meyer MD ([id number]) R eviewed by Virgilio Fletcher M.D. ([id number]) Reviewed by Fausto Meyer MD ([id number]) Reviewed by Liz Estrella MD ([id number]) Reviewed by Josep coffman MD.([id number]) Reviewed by Virgilio Fletcher M.D. ([id number]) Reviewed by Annie Sanches MD. ([id number]) Reviewed by Michelle Cruz MD PhD ([id number]) Component Latest Ref Rng AND Units 07/14/2015 11/24/2015 06/11/20 16 04/28/2017 11/13/2017 08/13/2018 06/17/2019 06/08/2020 MPA IgG, Serum 717 - 1,411 mg/dL 785 779 MPA IgA, Serum 78 - 391 mg/dL 186 223 MPA IgM, Serum 53 - 334 mg/dL 450 (H) 517 (H) [place] Free, Serum 3.30 - 19.40 mg/L 22.0 (H) 32.3 (H) 35.5 ( H) 35.7 (H) 38.1 (H) 42.8 (H) 41.1 (H) 44.7 (H) Lambda Free, Serum 5.7 - 26.3 mg/L 18.8 20.0 19.3 21.2 23.7 21.0 21.0 19.8 K/L Ratio, Serum 0.26 - 1.65 1.17 1.62 1.84 (H) 1.68 (H) 1.6 1 2.04 (H) 1.96 (H) 2.26 (H) MPA Result No M protein is identified. M protein is present. (A) M protein is present. (A) Interpretation ([facility]) SEE COMMENT SEE COMMENT Staff Review ([facility]) Reviewed by Annie Sanches MD. ([id number]) Reviewed by Liz Estrella MD ([id number]) PATHOLOGY: Bone marrow biopsy 08/2018: BONE MARROW, ASPIRATE, CLOT SECTION, CORE BIOPSY, PERIPHERAL BLOOD (A-C): - MYELODYSPLASTIC SYNDROME WITH RING SIDEROBLASTS AND SINGLE LINEAGE DYSPLASIA (SEE COMMENT). - HYPERCELLULAR MARROW (75%) WITH TRILINEAGE HEMATOPOIESIS. - ADEQUATE MEGAKARYOCYTES. - MARKEDLY INCREASED STAINABLE IRON WITH INCREASED RING SIDE ROBLASTS (86%). - NO EVIDENCE OF PERSISTENT/RECURRENT LYMPHOPROLIFERATIVE DI SORDER (SEE COMMENT). Comment: There is a macrocytic anemia associated with finn us ring sideroblasts in the marrow. Blasts are not increased and dys plastic features are not noted in other lineages. These findings are consistent with a myelodysplastic syndrome, best classified as myelodys plastic syndrome with ring sideroblasts and single lineage (erythroi d) dysplasia. Flow cytometry of the marrow aspirate was performed to rule out lymphoproliferative disorder and showed no evidence of an ab normal T- or B-lymphocyte population. Molecular analysis by next generation sequencing may be help ful to determine if SF3B1 mutation associated with MDS-RS and other mutations may be present. Please correlate with cytogenetic studies for ad ditional diagnostic and prognostic information. PERIPHERAL BLOOD: CBC (10/24/18): WBC 5.56 k/uL; Hgb 11 g/dL; MCV 106.1 fL; RD W 19.6%; Plts 324 k/uL. Differential (%): Neuts 65; Lymphs 29; Monos 4; Eos 0; Baso 2. Morphology/Interpretation: There is a macrocytic anemia with out hypersegmented neutrophils. RBC's show anisocytosis and occa sional ovalocytes. BONE MARROW ASPIRATE ? ?Normal % ? ?(0-2) ? ? ?1% ? Blasts ? ?(1-5) ? ? ?1% ? Promyelocytes ? ?(32-72) ? 63% ? Myelos/Metas/Bands/Segs ? ?(1-6) ? ? ?3% ? Eosinophils ? ?(0-1) ? ? ?0% ? Basophils ? ?(0-4) ? ? ?0% ? Monocytes ? ?(13-37) ? 31% ? Erythroid precursors ? ?(7-23) ? ? 0% ? Lymphocytes ? ?(0-2) ? ? ?1% ? Plasma cells ? ?Myeloid/Erythro (1.5-4): 2.19 ? Cells counted: 500 ?Iron stain result: Markedly increased with numerous ring sideroblasts (86% of NRBCs). ? ?Specimen Quality: Spicular, cellular. ? ?Megakaryocytes: Increased with normal morphology. ? ?Erythropoiesis: Dyserythropoiesis with megaloblastoid fea tures, basophilic stippling and irregular hemoglobinization. ? ?Granulopoiesis: Normal maturation. ? ?Other: Blasts are not increased. BONE MARROW BIOPSY: Adequacy: Adequate. Cellularity: Increased (75%). ME ratio: Decreased. Hematopoiesis: Erythroid hyperplasia. Megakaryocytes: Adequate to slightly increased. Megakaryocyte morphology: Normal. Lymphoid infiltrate: None present. Bone trabeculae: Normal. CLOT SECTION: Marrow particles: Many. Morphology: Similar to biopsy with small lipogranuloma. ANCILLARY TESTS: Flow cytometry: Performed. Cytogenetics: Pending. FISH: N/A Molecular: Buffy coat stored. Laboratory Developed Test (LDT) Disclaimer: Positive and negative controls stain appropriately. Performa nce characteristics of immunohistochemical, immunofluorescent an d chromogenic in-situ hybridization tests have been determined by [facility]'s Fritz Boucher [facility] ([facility]) in a manner consistent with CLIA requirements. One or more of t hese tests have not been cleared or approved by the FDA. [facility] is regulate d under CLIA as qualified to perform high-complexity testing. These tests ar e used for clinical purposes. They should not be regarded as investigat ional or for research. ? ? SPECIMEN SUBMITTED A: BONE MARROW, ?ASPIRATE RPIC B: BONE MARROW, BIOPSY RPIC C: BONE MARROW, CLOT RPIC ADDITIONAL PROCEDURE(S) CYTOGENETICS ? Date Ordered: ?09/02/2018 ? ? ? Date Reported: ?09/17/2018 Procedure Results and Interpretation Lab Analysis No: [id number] DIAGNOSIS: 46,XY[20] INTERPRETATION: Normal, male karyotype COMMENT: Ten metaphase cells were analyzed from the culture supplemented with GM-CSF and ten metaphase cells were analyzed from the 2 4 hour unstimulated culture. Twenty cells analyzed showed a 46,XY k aryotype or had random chromosomal loss, attributed to culture artifact. There was no significant numerical chromosome abnormality and no structur al change detected within the limits of resolution. The previous analysis in August 2015 also showed a normal k aryotype. Clinical and pathologic correlation is recommended. Morphologic/Cytogenetic Correlation: There is no change in t he diagnosis. FLOW CYTOMETRY - BONE MARROW LOW GRADE LEUK MARKERS ? Date Ordered: ?09/04/2018 ? ? ? Date Reported: ?09/04/2018 Procedure Results and Interpretation Specimen type: Bone Marrow Aspirate. CBC, differential and morphology comments: Please see bone m arrow report [id number]. Viability: 99%. ? ? Results: Marker ? Normal Cell ? ? ? Result (Lymphocytes) ? ?Type __ CD2 ?T/NK cells ? ? ?Normal pattern CD3 ?T-cells ? Normal pattern CD4 ?T-cell subset ? Normal pattern CD5 ?T-cells ? Normal pattern CD7 ?T/NK-cells ? ? ?Normal pattern CD8 ?T-cell subset ? Normal pattern CD10 ? B-cell subset ? Normal pattern CD13 ? Myeloid ? Normal pattern CD16/56 ?T/NK cell ? ? ? Normal pattern CD19 ? B-cell ?Normal pattern CD20 ? B-cell ?Normal pattern CD23 ? B-cell subset ? Normal pattern CD45 ? Simons-leukocyte ? Normal pattern CD79b ?B-cell ?Normal pattern CD123 ?Dendritic ? ? ? Normal pattern FMC7 ? B-cells ? Normal pattern kappa/lambda ? ? B-cells ? Polytypic Interpretation: Flow cytometric analysis of the bone marrow aspirate reveals that 11% of total events have the CD45 and side scatter properties of ly mphocytes. The lymphocytes are composed of a mixture of heterogenous T-cell s (72%; CD4:CD8 ratio = 1.46), NK cells (19%) and polytypic B-cells (12%). ? Final Impression: There is no immunophenotypic evidence of involvement by a lymphoproliferative disorder. Correlation with the clinical findings is suggested. ASSESSMENT/PLAN: (D46.20) MDS (myelodysplastic syndrome), low grade (HCC) (D53.9) Macrocytic anemia Assessment: -RARS. -IPSS=0 Low risk. -IPSS-R=2 Low risk. 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 -He developed secondary hypertension and left-sided tinnitus with Aranesp. -Previously discussed treatment options including supportive care with transfusion when indicated or treatment with azacitadine. Al so had offered [id number] trial--declined. He prefers periodic transfusion. Plan: -Continue supportive care for now. -Changed to scheduled CBC/possible transfusion every 2 weeks . Him to maintain hemoglobin above 9-9.5 as that is when he feels bes t. -Office visit with lab work in 6 months. -Monitor iron. 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 -Had CD5 negative low-grade lymphoproliferative disorder xavier ntified by flow cytometry only on bone marrow aspirate. The clonal cell s were lambda light chain restricted. -Patient has polyneuropathy. Previous MAG antibody testing n egative. -Over time, still nothing to suggest amyloidosis--ie, neurop athy rather limited stable for several years and has only very occasiona l and sporadic diarrhea. Echo 05/2018 was normal. -Serum monoclonal protein stable. -No evidence of the monoclonal lymphocyte population a most recent bone marrow biopsy. -Possible second MP--lambda light chain. Plan: -Will continue to monitor every 6 months. Steven Akers, DO PROGRESS HNO ID: [id number] Normal 06-15-2020 [place] Author: Junior Blancas III [facility] Service: ? [place] Author Type: Physician ([id number]) Type: Progress Notes Filed: 06/26/2020 9:26 AM Note Text: June 15, 2020 Standing PSG Orders signed in the last 90 days None Future PSG Orders signed in the last 90 days Ordered Auth. provider HOME SLEEP APNEA TEST (HSAT) [[id number]] 06/12/20 [facility] (P a-[facility]) Assoc. diagnoses: Pulmonary hypertension, mild (HCC) [I27.20 ], ROSS (obstructive sleep apnea) [G47.33] Q: Indications: A: Obstructive sleep apnea Q: STOP-BANG conditions - Select All That Apply: A: GENDER = male A2: AGE > 50 Q: Current use of supplemental oxygen during sleep period?: A: No All Prior Sleep Studies (past 365 days) Some values may be hidden. Unless noted otherwise, only the newest values recorded on each date are displayed. Sleep Studies HOME SLEEP APNEA TEST (HSAT) Future Expected: Expires: 1 BMI Readings from Last 2 Encounters: 12/16/19 : 27.50 kg/m? 11/18/19 : 26.97 kg/m? PAST MEDICAL HISTORY Diagnosis Date - Anemia - Asthma - Benign neoplasm of colon - Benign neoplasm of rectum and anal canal - Heartburn - Seasonal allergies - Snoring The medical record was reviewed to determine if the proposed sleep study conforms to the AASM Practice Parameters for the Indications for Polysomnography and Related Procedures, or if the sleep stud y is indicated for other reasons. Indications for study: ROSS suspected without comorbid medical or sleep disorders Sleep study to be performed: Home Sleep Apnea Test (HSAT) Special instructions: None-follow laboratory protocol Dannielle Kan Poly-T ----- I have read the above protocol, edited as needed, and agree to the plan. Lawrence Sierra MD 10:09 AM, 06/15/2020 I have read the above protocol, edited as needed, and agree to the plan Junior Blancas III, PhD, [facility] cnovsp on 6 CNOVSP Visit (SP) Office (DEMI) Normal [facility] LORETA HURST ([id number]) 1945 [facility] Date Time Provider Department ([id number]) 06/15/20 9:50 AM STEVEN AKERS During your visit today, we recorded the following informati on about you: Temperature Pulse Blood pressure Weight 97.6 degrees 68/minute 142/65 79.8 kg Steven Akers DO 06/15/2020 9:59 AM Signed Diagnoses: 1) MDS--RARS. 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 Transfusion dependent. 5) Sensory neuropathy. HPI: The patient is a 75 yo male who had an unremarkable PMH . Evaluated 06/29/2015 for c/o sore throat, malaise a nd low grade fever that had been going on for about 2 weeks. Was found to have macrocytic ane beka and elevated serum iron and ferritin. Stool hemoccult negative. 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 Declined therapy. Current therapy: 1) Periodic RBC transfusion. Presents for ongoing oncologic management. Interim history: Was admitted to [facility] ICU for 3 days for urosepsis last week May. Had dysuria and fever to 104.5. Symptoms improved but still some dysuria. Following up with PCP. No symptoms of cardiomyopathy including chest pain/pressure, palpitations, shortness of breath at rest, lower extre mity swelling/edema, PND or orthopnea. Neuropathy stable--numbness limited to toes and balls of fee t. PMH, medications and allergies as below personally rev iewed by me today. Any changes documented in appropriate section. ROS: Constitutional: No episode of fever, shaking chi ll and night sweats. Appetite is normal. Neuro: Denies vertigo and imbalance. HEENT: No recent change in voice, vision. Resp: Denies cough, wheeze and hemoptysis. CVS: See above. GI: No dysphagia or odynophagia. No nausea or vomiting. Faby ls are working normally. Has occasional diarrhea. Endo: No hot flashes. Musculoskeletal: Denies bone, back, joint and muscular pain. Derm: No rash. Heme: No unusual bleeding or bruising. Psych: Normal mood. PHYSICAL EXAM: Vitals: Blood pressure 142/65, pulse 68, temperature 36.4 ?C (97.6 ?F), temperature source Temporal, weight 79.8 kg (176 lb), SpO2 9 8 %. Well-appearing and in no acute distress. EYES: Sclerae are anicteric bilaterally. NECK: Supple. LYMPHATIC: There is no palpable cervical or supraclavicular adenopathy. RESPIRATORY: Inspiratory breath sounds are of no rmal intensity in all ariza. No rales, wheezes or rhonchi. CARDIOVASCULAR: Rhythm is regular. Normal intensity S1/S2. ABDOMEN: The abdomen is nondistended. Still very tender LUQ. Extremities: No swelling. Has compression stockings on. SKIN: No jaundice or rash. No petechiae. NEUROLOGIC: equine breeder II-XII are grossly intact. No focal motor we akness. LABS: Component Latest Ref Rng AND Units 06/08/2020 WBC 3.70 - 11.00 k/uL 6.82 RBC 4.20 - 6.00 m/uL 3.40 (L) Hemoglobin 13.0 - 17.0 g/dL 11.3 (L) Hematocrit 39.0 - 51.0 % 35.4 (L) MCV 80.0 - 100.0 fL 104.1 (H) MCH 26.0 - 34.0 pG 33.2 MCHC 30.5 - 36.0 g/dL 31.9 RDW-CV 11.5 - 15.0 % 22.9 (H) Platelet Count 150 - 400 k/uL 324 MPV 9.0 - 12.7 fL 10.5 Neut% % 68.0 Abs Neut (ANC) 1.45 - 7.50 k/uL 4.64 Lymph% % 18.0 Abs Lymph 1.00 - 4.00 k/uL 1.23 Vance% % 11.0 Abs Vance <0.87 k/uL 0.75 Eosin% % 3.0 Abs Eosin <0.46 k/uL 0.20 Baso% % 0.0 Abs Baso <0.11 k/uL 0.00 NRBC 0 /100 WBC 2 (H) Absolute nRBC <0.01 k/uL 0.14 (H) ANC(includeSEG+BAND) k/uL 4.64 Anisocytosis Present Ovalocytes Few Polychromasia Slight RBC Fragments Few Platelet Estimate Platelet estimate adequate Diff Type Manual Diff Protein, Total 6.3 - 8.0 g/dL 7.1 Albumin 3.9 - 4.9 g/dL 4.5 Calcium 8.5 - 10.2 mg/dL 9.6 Bilirubin, Total 0.2 - 1.3 mg/dL 1.0 Alkaline Phosphatase 38 - 113 U/L 71 AST 14 - 40 U/L 30 Glucose 74 - 99 mg/dL 91 BUN 9 - 24 mg/dL 10 Creatinine 0.73 - 1.22 mg/dL 0.71 (L) Sodium 136 - 144 mmol/L 142 Potassium 3.7 - 5.1 mmol/L 4.4 Chloride 97 - 105 mmol/L 104 CO2 22 - 30 mmol/L 26 Anion Gap 9 - 18 mmol/L 12 ALT 10 - 54 U/L 57 (H) eGFR- >60 eGFR-All Other Races . >60 B2 Microglobulin <3.1 mg/L 2.5 Component Latest Ref Rng AND Units 07/14/2015 11/24/2015 06/11/2016 04/28/2017 11/13/2017 08/13/2018 06/17/2019 06/08/2020 Protein, Total 6.3 - 8.0 g/dL 7.1 6.9 6.7 7.3 7.0 7.0 6.9 6. 7 Albumin 3.37 - 4.23 gm/dL 4.47 (H) 4.26 (H) 4.21 4.58 (H) 4.40 (H) 4.49 (H) 4.33 (H) 4.10 Alpha 1 Globulin 0.18 - 0.31 gm/dL 0.21 0.22 0.17 (L) 0.22 0.21 0.21 0.21 0.28 Alpha 2 Globulin 0.52 - 0.97 gm/dL 0.48 (L) 0.48 (L) 0.44 (L) 0.53 0.50 (L) 0.49 (L) 0.56 0.66 Beta Globulin 0.84 - 1.36 gm/dL 0.78 (L) 0.76 (L) 0.74 (L) 0.74 (L) 0.67 (L) 0.62 (L) 0.62 (L) 0.57 (L) Gamma Globulin 0.70 - 1.44 gm/dL 1.17 1.17 1.15 1.24 1.23 1. 20 1.18 1.09 Interpretation (Prot Electro) SEE COMMENT SEE CO MMENT SEE COMMENT SEE COMMENT SEE COMMENT SEE COMMENT SEE COMMENT SEE COMMENT M-Protein Location (1) Gamma fraction (2) Gamma fraction N /A Gamma fraction Gamma fraction Gamma fraction Gamma fraction Gamma fraction Gamma fraction M-Protein Concentration 0.00 gm/dL (1) 0.20 (2) 0.26 0.00 0.19 (H) 0.22 (H) 0.20 (H) 0.18 (H) 0.22 (H) 1) 0.21 (2) 0.38 SPE Staff Review Reviewed by Fausto Meyer MD ([id number]) Reviewed by Virgilio Fletcher M.D. ([id number]) Reviewed by Fausto jean MD ([id number]) Reviewed by Liz Estrella MD ([id number]) Reviewe d by Josep Cruz MD.([id number]) Reviewed by Virgilio Fletcher M.D. ([id number]) Reviewed by Annie Sanches MD. ([id number]) Reviewed by Michelle Cruz MD PhD ([id number]) Component Latest Ref Rng AND Units 07/14/2015 11/24/2015 06/11/2016 04/28/2017 11/13/2017 08/13/2018 06/17/2019 06/08/2020 MPA IgG, Serum 717 - 1,411 mg/dL 785 779 MPA IgA, Serum 78 - 391 mg/dL 186 223 MPA IgM, Serum 53 - 334 mg/dL 450 (H) 517 (H) [place] Free, Serum 3.30 - 19.40 mg/L 22.0 (H) 32.3 (H) 35.5 (H) 35.7 (H) 38.1 (H) 42.8 (H) 41.1 (H) 44.7 (H) Lambda Free, Serum 5.7 - 26.3 mg/L 18.8 20.0 19.3 21.2 23.7 21.0 21.0 19.8 K/L Ratio, Serum 0.26 - 1.65 1.17 1.62 1.84 (H) 1.68 (H) 1.61 2.04 (H) 1.96 (H) 2.26 (H) MPA Result No M protein is identified. M protein is present. (A) M protein is present. (A) Interpretation (MPA) SEE COMMENT SEE COMMENT Staff Review (MPA) Reviewed by Annie Sanches MD. ([id number]) Reviewed by Liz Estrella MD ([id number]) PATHOLOGY: Bone marrow biopsy 08/2018: BONE MARROW, ASPIRATE, CLOT SECTION, CORE BIOPSY, PERIPHERAL BLOOD (A-C): - MYELODYSPLASTIC SYNDROME WITH RING ROMARIO EROBLASTS AND SINGLE LINEAGE DYSPLASIA (SEE COMMENT). - HYPERCELLULAR MARROW (75%) WITH TRILINEAGE HEMATOPOIESIS. - ADEQUATE MEGAKARYOCYTES. - MARKEDLY INCREASED STAINABLE IRON WITH INCREASED RING SI DEROBLASTS (86%). - NO EVIDENCE OF PERSISTENT/RECURRENT LYMPHOPROLIFERATIVE DI SORDER (SEE COMMENT). Comment: There is a macrocytic anemia associated with finn us ring sideroblasts in the marrow. Blasts are not increased a nd dysplastic features are not noted in other lineages. These findings are consiste nt with a myelodysplastic syndrome, be st classified as myelodysplastic syndrome with ring sideroblasts and single lineage (erythroid) dysplasia. Flow cytometry of the marrow aspirate was performed to rule out lymphoproliferative disorder and showed no evidence of an ab normal T- or B-lymphocyte population. Molecular analysis by next g eneration sequencing may be helpful to determine if SF3B1 mutation associated with MDS-RS and other mutations ma y be present. Please correlate with cytogenetic studies for additional diagnostic and prognostic information. PERIPHERAL BLOOD: CBC (09/02/18): WBC 5.56 k/uL; Hgb 11 g/dL; MCV 106.1 fL; RD W 19.6%; Plts 324 k/uL. Differential (%): Neuts 65; Lymphs 29; Monos 4; Eos 0; Baso 2. Morphology/Interpretation: There is a ma crocytic anemia without hypersegmented neutrophils. RBC's show anisocytosis and occasional ovalocyt es. BONE MARROW ASPIRATE ? ?Normal % ? ?(0-2) ? ? ?1% ? Blasts ? ?(1-5) ? ? ?1% ? Promyelocytes ? ?(32-72) ? 63% ? Myelos/Metas/Bands/Segs ? ?(1-6) ? ? ?3% ? Eosinophils ? ?(0-1) ? ? ?0% ? Basophils ? ?(0-4) ? ? ?0% ? Monocytes ? ?(13-37) ? 31% ? Erythroid precursors ? ?(7-23) ? ? 0% ? Lymphocytes ? ?(0-2) ? ? ?1% ? Plasma cells ? ?Myeloid/Erythro (1.5-4): 2.19 ? Cells counted: 500 ?Iron stain result: Markedly increased with nu merous ring sideroblasts (86% of NRBCs). ? ?Specimen Quality: Spicular, cellular. ? ?Megakaryocytes: Increased with normal morphology. ? ?Erythropoiesis: Dyserythropoiesis with megaloblastoid fea tures, basophilic stippling and irregular hemoglobinization. ? ?Granulopoiesis: Normal maturation. ? ?Other: Blasts are not increased. BONE MARROW BIOPSY: Adequacy: Adequate. Cellularity: Increased (75%). ME ratio: Decreased. Hematopoiesis: Erythroid hyperplasia. Megakaryocytes: Adequate to slightly increased. Megakaryocyte morphology: Normal. Lymphoid infiltrate: None present. Bone trabeculae: Normal. CLOT SECTION: Marrow particles: Many. Morphology: Similar to biopsy with small lipogranuloma. ANCILLARY TESTS: Flow cytometry: Performed. Cytogenetics: Pending. FISH: N/A Molecular: Buffy coat stored. Laboratory Developed Test (LDT) Disclaimer: Positive and negative controls stain appropriately. Performa nce characteristics of immunohistochemical, immunofluorescent an d chromogenic in-situ hybridization tests have been determined by [facility] in a manner consistent with CLIA requirements. One or more of these tests have not been cleared or approved by the FDA. [facility] is regula zackery under CLIA as qualified to perform high-complexity testing. These tests ar e used for clinical purposes. They should not be regarded as investigat ional or for research. ? ? SPECIMEN SUBMITTED A: BONE MARROW, ?ASPIRATE RPIC B: BONE MARROW, BIOPSY RPIC C: BONE MARROW, CLOT RPIC ADDITIONAL PROCEDURE(S) CYTOGENETICS ? Date Ordered: ?09/02/2018 ? ? ? Date Reported: ?09/17/2018 Procedure Results and Interpretation Lab Analysis No: [id number] DIAGNOSIS: 46,XY[20] INTERPRETATION: Normal, male karyotype COMMENT: Ten metaphase cells were analyzed from the culture supplemented with GM-CSF and ten metaphase cells were analyzed from the 24 cecilia r unstimulated culture. Twenty cells analyzed showed a 46,XY karyotype or h ad random chromosomal loss, attributed to culture artifact. There was no significant numerical chromosome abnormality and no structural change detected within the limits of resolution. The previous analysis in August 2015 also showed a normal k aryotype. Clinical and pathologic correlation is recommended. Morphologic/Cytogenetic Correlation: There is no change in t he diagnosis. FLOW CYTOMETRY - BONE MARROW LOW GRADE LEUK MARKERS ? Date Ordered: ?09/04/2018 ? ? ? Date Reported: ?09/04/2018 Procedure Results and Interpretation Specimen type: Bone Marrow Aspirate. CBC, differential and morphology comments: Please see bone m arrow report [id number]. Viability: 99%. ? ? Results: Marker ? Normal Cell ? ? ? Result (Lymphocytes) ? ?Type __ CD2 ?T/NK cells ? ? ?Normal pattern CD3 ?T-cells ? Normal pattern CD4 ?T-cell subset ? Normal pattern CD5 ?T-cells ? Normal pattern CD7 ?T/NK-cells ? ? ?Normal pattern CD8 ?T-cell subset ? Normal pattern CD10 ? B-cell subset ? Normal pattern CD13 ? Myeloid ? Normal pattern CD16/56 ?T/NK cell ? ? ? Normal pattern CD19 ? B-cell ?Normal pattern CD20 ? B-cell ?Normal pattern CD23 ? B-cell subset ? Normal pattern CD45 ? Simons-leukocyte ? Normal pattern CD79b ?B-cell ?Normal pattern CD123 ?Dendritic ? ? ? Normal pattern FMC7 ? B-cells ? Normal pattern kappa/lambda ? ? B-cells ? Polytypic Interpretation: Flow cytometric analysis of the bone mar row aspirate reveals that 11% of total events have the CD45 and side scatter properties of lymphocy diego. The lymphocytes are composed of a mixture of heterogenous T-ce lls (72%; CD4:CD8 ratio = 1.46), NK cells (19%) and polytypic B-cells (12%). ? Final Impression: There is no immunophenotypic evidence of involve ment by a lymphoproliferative disorder. Correlation with the clinical findings is isabelle page ASSESSMENT/PLAN: (D46.20) MDS (myelodysplastic syndrome), low grade ([facility]) (D53.9) Macrocytic anemia Assessment: -RARS. -IPSS=0 Low risk. -IPSS-R=2 Low risk. 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 -He developed secondary hypertension and left-sided tinnitus with Aranesp. -Previously discussed treatment options including supportive care with transfusion when indicated or treatment with azacitadine. Al so had offered [id number] trial--declined. He prefers periodic transfusion. Plan: -Continue supportive care for now. -Changed to scheduled CBC/possible transfusion e very 2 weeks. Him to maintain hemoglobin above 9-9.5 as that is when he feels best. -Office visit with lab work in 6 months. -Monitor iron. 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 -Had CD5 negative low-grade lymphoproliferative disorder i dentified by flow cytometry only on bone marrow aspirate. The clonal cells wer e lambda light chain restricted. -Patient has polyneuropathy. Previous MAG antibody testing n egative. -Over time, still nothing to suggest amyloidosis--ie, neuropathy rather limited stable for several years and has only very occasional and sporadic diarrhea. Echo 05/2018 was normal. -Serum monoclonal protein stable. -No evidence of the monoclonal lymphocyt e population a most recent bone marrow biopsy. -Possible second MP--lambda light chain. Plan: -Will continue to monitor every 6 months. Steven Akers DO Referring Provider: STEVEN AKERS [[id number]] Allergies As of Date: 06/15/2020 Noted Allergy Reaction ADVAIR DISKUS (FLUTICASONE PROPIO*03/15/2011 14 - Other: See Comments Comments: oral yeast infection antibiotics [Other] 03/15/2011 14 - Other: See Comments Comments: Anything in Levaquin family BACTRIM (SULFAMETHOXAZOLE) 01/20/2013 8 - GI Upset PAXIL (PAROXETINE HCL) 11/07/2017 14 - Other: See Comments Comments: Mouth sores, sore throat, salivating constantly, t in taste in his mouth Date Reviewed: 06/15/2020 Reviewed by: Steven Akers - Fully Assessed Reason for Visit: Established Patient [175] Primary Visit Diagnosis:MDS (myelodysplastic syndrome), low grade (HCC) [D46.20] Other Visit Diagnoses:Macrocytic anemia [D53.9] 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 (HCC) [C88.0] Follow-up and Disposition History Recorded Prescriptions as of 06/15/2020 Sig: CALCIUM CARBONATE 200 MG CALC* Take 1-2 tablets by mouth onc * CRANBERRY 400 MG CAPSULE Take 4 capsules by mouth once* CHOLECALCIFEROL (VITAMIN D3) * Take 1 tablet by mouth once d * POLYETHYLENE GLYCOL 3350 17 G* Take 1 Packet by mouth once d * OMEPRAZOLE 20 MG CAPSULE,PORTER* Take 2 capsules by mouth once * GABAPENTIN 300 MG CAPSULE Take 1 capsule by mouth three* MONTELUKAST 10 MG TABLET Take 1 tablet by mouth daily * ALBUTEROL SULFATE HFA 90 MCG/* Inhale 2 Puffs as instructed * COMPOUNDED PRESCRIPTION Compression stockings 30-40mm* PYRIDOXINE (VITAMIN B6) 100 M* Take 100 mg by mouth twice da * ACETAMINOPHEN 500 MG TABLET Take 1,000 mg by mouth as nee* Medication notes this encounter CEPHALEXIN 500 MG CAPSULE >> Caity Moya MA 06/15/2020 9:37 AM >> CAITY MOYA MA [facility] Jun 15, 2020 9:37 AM Completed MUCINEX 600 MG TABLET, EXTENDED RELEASE >> Caity Moya MA 06/15/2020 9:37 AM >> CAITY MOYA MA Sandra Jun 15, 2020 9:37 AM Completed Problem List As Of Date 06/15/2020 Noted Resolved Diverticulosis [K57.90] 01/23/2012 Family history of malignant neoplasm of gastroi*01/23/2012 More... 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 Pulmonary hypertension, mild (HCC) [I27.20] 06/12/2020 Acute respiratory failure with hypoxia (HCC) [J*06/12/2020 Ileus (HCC) [K56.7] 06/12/2020 Encounter Status:Closed by STEVEN AKERS DO on 06/15/20 progress on 2020-06 PROGRESS HNO ID: [id number] Normal 06-14-2020 [facility] Author: Montse Ragland ([id number]) Service: ? Author Type: ? Type: Progress Notes Filed: 06/26/2020 9:26 AM Note Text: June 14, 2020 An order has been received for Home Sleep Apnea Test (HSAT) from rebeka Castrejon. [facility] Staff. Visit prep complete. Comments :No The sleep study is scheduled for 06/20. Insurance: Payor: PRIMETIME / Plan: PRIMETIME HMO POS / Prod uct Type: HMO / Payor/Plan Subscr Sex Relation Sub. Ins. ID Effective Gr oup Num 1. PRIMETIME - P* LORETA HURST R 1945 Male Self [id number] [birth year]19 [id number] [address] Montse Rodríguez Pss progress on 2020-06 PROGRESS HNO ID: [id number] Normal 06-12-2020 [facility] Author: Sunday Rosen (Diaz) Raul Dominguez ([id number]) Service: ? Author Type: Physician Concrete Finisher Type: Progress Notes Filed: 06/12/2020 12:26 PM Note Text: There were no vitals taken for this visit. This Team Access Model visit is a virtual encounter. It requ ired patient-provider interaction for the medical decision making as documented below. Patient was offered a virtual/telemedicine appointment in eu of an office visit due to recommendations to reduce patient exposu re to COVID-19. Patient is aware of limitations of performing the visit without a face to face visit in the office setting and agrees. 11:07 AM 75 year old male with c/o Admission date; 05/30/20 Discharge date: 06/02/20 Diagnoses: Hypoxia Possible transfusion reactions Suspected Covid-19 infections Sepsis secondary to E. Coli UTI/ pyelonephritis Chronic problems: Waldenstrom's macroglobulinemia Myelodysplastic syndrome: chronic transfusions IgM gammopathy GERD HTN Polyneuropathy Pre-admit info: 05/30/20 [facility] ED dysuria x 2 days, started on Keflex in ED 2 d ays prior with UC + E. Coli. Developed fever 102F, cough, chest pain increa sed by urinating, radiating down right arm into hand, constant x 3 days, mild SOB, COLEMAN. Also leg swelling but not wearing compression stock ings. Constipation with abdominal distention. T104.5, 15 59-90-2 3, 77%. EKG ST vr95, NS ST. CXR left basilar atelectasis. Chest CTA: neg ative for emboli, diffuse interstitial pulm edema. Negative: COVID-19, d-dimer 1.01, troponin <0.015, lactic acid 1.4, INR 1.4. Positives: WBC 9. 2 but elevated abs neut 8.4, low abs lymph0.26, H+H 8.4/24.9; Na 130, glu 1 31, ALT 72, AST 47. Hospital Course: Consults: ID Dr. Fritz Raygoza, Pulm Med Will Stared ceftriaxone in ED. Nocturnal desats: kept on O2 2l/min Transfused 2u PRBCs started in ED. Became SOB, given transie nt BiPAP and Lasix 40mg with improvement. Stabilized and discharged on Keflex x 1 week. Cardiac: 05/30/20 echo: EF 65%, diastole NL for age, trivial TI, RVSP 32mmHG, mild . Imagin06/01/20 CT ABD/PEL w/ contrast: lung bases bilateral pleural effusions, bibasilar atelectasis, mildly dilated bilateral kidneys with surrounding induration, rigth sided perla-ureteral stranding; dilated bow el loops consistent with ileus, induration subcutaneous fat consisten t with anasarca Labs: 05/31/20 BNP 237; fibrinogen 491 (H), troponin 0.022. hgb 8.8 , hct 27.2, total bili 2.1 (H), ferritin 2919, NA 131 (L) 06/01/20 Ca++ 7.6 (l). Serial troponins negative. Total bili 2.1 Blood cultures negative Urine culture E. Coli Procedures/ Surgery: 2 u PRBC's Medication Reconciliation: Achieved. Follow up scheduled: Dr. Will: Current symptoms: Feeling much better over last 2 days. Still some pain with urination but nothing like it was. Bowels moving, LBM this morning. On miralax. Weight was up to 190lbs, down to 170lbs. Wearing compression stockings; still swelling in left ankle/ foot. Was called To see erp pm Dr. Will. Wears breath-right strips, can't sleep on back. + snores. Coleman s been observed with apneas by . Urine flow weak over last year. Nocturia currently every 90 minutes but prior to hospitaliza tion about 3/ night. + stranguria. Component Latest Ref Rng AND Units 04/07/2014 05/04/20152016 PSA Screening 0.00 - 2.59 ng/mL 1.60 1.49 PSA 0.00 - 2.59 ng/mL 0.56 HISTORIES FAMILY HISTORY Problem Relation Age of Onset - None Father - Diabetes Mother - Heart Mother - Hypertension Mother - Colon Cancer Sister - other (uterine cancer) Sister - other (blood disorder) Sister - Breast Cancer Daughter PAST MEDICAL HISTORY Diagnosis Date - Anemia - Asthma - Benign neoplasm of colon - Benign neoplasm of rectum and anal canal - Heartburn - Seasonal allergies - Snoring PAST SURGICAL HISTORY Procedure Laterality Date - AXILLARY LYMPHADENECTOMY Left 1997 No BP or IV to left upper extremity - COLONOSCOP W/ OR W/O BRS SPEC 2002 Colonoscopy - COLONOSCOP W/ OR W/O BRS SPEC 05/01/2012 Colonoscopy - COLONOSCOP W/ OR W/O BRS SPEC 04/30/2017 Colonoscopy - EGD W/O OR W/BRUSH/WASH 04/30/2017 EGD - KNEE SCOPE,DIAGNOSTIC 2004? Arthroscopy, right knee - LAP UMBILICAL HERNIA REPAIR 1997 - PAST SURGICAL HISTORY OF 1997 Lymphnodes AND fatty tumor removed left axilla - PAST SURGICAL HISTORY OF 1996 Fatty tumors removed from chest AND abdomen - VASECTOMY 1998 Social History Tobacco Use - Smoking status: Former Smoker Packs/day: 0.80 Years: 16.00 Pack years: 12.80 Types: Cigarettes Quit date: 11/09/1977 Years since quittin.6 - Smokeless tobacco: Never Used - Tobacco comment: Smoked from age [age]. Substance Use Topics - Alcohol use: No - Drug use: No ACTIVE PROBLEM LIST Diverticulosis Family History of Malignant Neoplasm of Gastrointestinal Tra ct Varicosity Benign Neoplasm of Colon Benign Neoplasm of Rectum and Anal Canal Macrocytic Anemia Elevated Ferritin Igm Lambda Monoclonal Gammopathy Mds (Myelodysplastic Syndrome), Low Grade (Hcc) Polyneuropathy in Other Diseases Classified Elsewhere (Hcc) Chronic Gerd Idiopathic Aplastic Anemia (Hcc) Cough Swelling of Limb Waldenstroms Macroglobulinemia (Hcc) History of Transfusion Encounter for Support and Coordination of Transition of Care Current Outpatient Medications Medication Sig Dispense Refill - omeprazole (PRILOSEC) 20 mg capsule Take 2 capsules by garret th once daily. 180 capsule 0 - gabapentin (NEURONTIN) 300 mg capsule Take 1 capsule by mo uth three times daily for 90 days. 270 capsule 1 - montelukast (SINGULAIR) 10 mg tablet Take 1 tablet by mout h daily at bedtime. 90 tablet 3 - albuterol HFA (VENTOLIN HFA) 90 mcg/actuation inhaler Inha le 2 Puffs as instructed every 4 hours as needed for Wheezing/Shortness of Breath. 1 Inhaler 2 - COMPOUNDED PRESCRIPTION Compression stockings 30-40mmHg 2 pairs Stasis edema of both lower extremities (primary encounter di agnosis) 1 Each 0 - pyridoxine, vitamin B6, (VITAMIN B-6) 100 mg tablet Take 1 00 mg by mouth twice daily. - cholecalciferol (VITAMIN D-3) 5,000 unit tab Take 5,000 Un its by mouth once daily. - acetaminophen (TYLENOL EXTRA STRENGTH) 500 mg tablet Take 1,000 mg by mouth as needed. - omega-3 fatty acids (FISH OIL CONCENTRATE) 1,000 mg cap Ta ke 2 capsules by mouth twice daily. 360 capsule 3 - ibuprofen (MOTRIN) 400 mg tablet Take 400 mg by mouth as n eeded. No current facility-administered medications for this visit. DTAP,TDAP,TD(1 - Tdap) due on 1963 ADVANCE DIRECTIVE DISCUSSION due on 2009 SHINGRIX VACCINE(2 of 3) due on 09/01/2013 LIPID SCREEN due on 05/04/2020 EXAM: There were no vitals taken for this visit. Pleasant adult man in no acute distress. Alert and oriented all spheres. Normal affect and cognition. Speech normal. No deficits to l earning or comprehension. Speaking in full sentences easily. Oral membranes moist, pink ASSESSMENT/PLAN: 1. E. coli UTI - ICD9: 599.0, 041.49, ICD10: N39.0, B96.20 ( primary diagnosis) acute - Patient education for prevention given Completed treatment: still having polyuria and dysuria but i mproving. Recheck urine when comes in for visit with Dr. Akers this we ek. - CEPHALEXIN 500 MG CAPSULE - URINALYSIS, WITH MICROSCOPIC - URINE CULTURE 2. Acute pulmonary edema (HCC) - ICD9: 518.4, ICD10: J81.0 resolved 3. Acute respiratory failure with hypoxia (HCC) - ICD9: 518. 81, ICD10: J96.01 Resolved. Off O2. 4. MDS (myelodysplastic syndrome), low grade (HCC) - ICD9: 2 38.72, ICD10: D46.20 Chronic, followed by dr. Akers 5. Macrocytic anemia - ICD9: 281.9, ICD10: D53.9 As above 6. 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 7. 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 BPH with obstruction/lower urinary tract symptoms - ICD9: 600.01, 599.69, ICD10: N40.1, N13.8 Discussed options. Has had dizziness with Flomax in past. Discussed options including urology referral. After discussion of options including 1/2 dose Flomax, Nataliya chauhan, want to wait for a week or so to see baseline after recovery. 9. Pulmonary hypertension, mild (HCC) - ICD9: 416.8, ICD10: I27.20 Mild but + ROSS sx - HOME SLEEP APNEA TEST (HSAT) 10. ROSS (obstructive sleep apnea) - ICD9: 327.23, ICD10: G47 .33 - HOME SLEEP APNEA TEST (HSAT) 11. Chronic constipation - ICD9: 564.00, ICD10: K59.09 - POLYETHYLENE GLYCOL 3350 17 GRAM ORAL POWDER PACKET 12. Dysuria - ICD9: 788.1, ICD10: R30.0 complicated - Patient education for prevention given Treat for trauma - FLUCONAZOLE 150 MG TABLET 13. Ileus (HCC) - ICD9: 560.1, ICD10: K56.7 resolved 14. Other ascites - ICD9: 789.59, ICD10: R18.8 Resolved. Still swelling in left leg. Update in 1-2 week on progress: agrees to notify me through Nursing Home Quality F/u in 3 months otherwise. Sunday Carter PA-C 11:40a 43 minute visit Sunday Carter PA-C cnpn [facility]) Normal 06-12-2020 [facility] LORETA HURST ([id number]) 1945 [facility] Date Time Provider Department ([id number]) 06/12/20 CARTER) FAMWS During your visit today, we recorded the following informati on about you: Patricia Poe LPN 06/12/2020 12:46 PM Signed Please schedule 3 month follow up Mauro Moreno PA-C Julia Russell LPN 06/12/2020 12:57 PM Signed LEFT MESSAGE FOR PATIENT TO CALL OFFICE. Allergies As of Date: 06/12/2020 Noted Allergy Reaction ADVAIR DISKUS (FLUTICASONE PROPIO*03/15/2011 14 - Other: See Comments Comments: oral yeast infection antibiotics [Other] 03/15/2011 14 - Other: See Comments Comments: Anything in Levaquin family BACTRIM (SULFAMETHOXAZOLE) 01/20/2013 8 - GI Upset PAXIL (PAROXETINE HCL) 11/07/2017 14 - Other: See Comments Comments: Mouth sores, sore throat, salivating constantly, t in taste in his mouth Date Reviewed: 12/16/2019 Reviewed by: Caity Moya - Fully Assessed Reason for Visit: Appointment [186] Prescriptions as of 06/12/2020 Sig: CALCIUM CARBONATE 200 MG CALC* Take 1-2 tablets by mouth onc * CRANBERRY 400 MG CAPSULE Take 4 capsules by mouth once* CHOLECALCIFEROL (VITAMIN D3) * Take 1 tablet by mouth once d * POLYETHYLENE GLYCOL 3350 17 G* Take 1 Packet by mouth once d * FLUCONAZOLE 150 MG TABLET Take 1 tablet by mouth once d* X CEPHALEXIN 500 MG CAPSULE Take 1 capsule by mouth every* X MUCINEX 600 MG TABLET, EXTEND* Take 2 tablets by mouth twi ce* OMEPRAZOLE 20 MG CAPSULE,PORTER* Take 2 capsules by mouth once * GABAPENTIN 300 MG CAPSULE Take 1 capsule by mouth three* MONTELUKAST 10 MG TABLET Take 1 tablet by mouth daily * ALBUTEROL SULFATE HFA 90 MCG/* Inhale 2 Puffs as instructed * COMPOUNDED PRESCRIPTION Compression stockings 30-40mm* PYRIDOXINE (VITAMIN B6) 100 M* Take 100 mg by mouth twice da * ACETAMINOPHEN 500 MG TABLET Take 1,000 mg by mouth as nee* X OMEGA-3 FATTY ACIDS 1,000 MG * Take 2 capsules by mouth tw ic* Problem List As Of Date 06/12/2020 Noted Resolved Diverticulosis [K57.90] 01/23/2012 Family history of malignant neoplasm of gastroi*01/23/2012 More... 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 Pulmonary hypertension, mild (HCC) [I27.20] 06/12/2020 Acute respiratory failure with hypoxia (HCC) [J*06/12/2020 Ileus (HCC) [K56.7] 06/12/2020 Encounter Status:Closed by PATRICIA POE LPN on 07/06/20 protein electrophor. on 2020-06-08 Albumin [Mass/Vol] 4.10 3.37-4.23 gm/dL Normal 06-08-2020 [facility] ([id number]) Comment: Performed By: #### PAULIE Esparza SERMPA ####[facility] [id number] [place] [address] [phone] Alpha 1 Globulin 0.28 0.18-0.31 gm/dL Normal 06-08-2020 [facility] ([id number]) Comment: Performed By: #### B2M SEPG SERMPA ####[facility] [address] [place] [address] [phone] Alpha 2 Globulin 0.66 0.52-0.97 gm/dL Normal 06-08-2020 [facility] ([id number]) Comment: Performed By: #### B2M SEPG SERMPA ####[facility] [address] [place] [address] [phone] Beta Globulin 0.57 0.84-1.36 gm/dL Low 06-08-2020 [facility] ([id number]) Comment: Performed By: #### B2M, SEPG , SERMPA ####[place] [id number] [place] [address] Gamma Globulin 1.09 0.70-1.44 gm/dL Normal 06-08-2020 [facility] ([id number]) Comment: Performed By: #### B2M, SEPG , SERMPA ####[place] [address] [phone] Interpretation SEE COMMENT Normal 06-08-2020 [facility] (03554) Comment: Result Comment: An M protein is identified on protein electrophoresis. See separate immunofixation report for characterization of the M protein. Performed By: #### B2M, SEPG , SERMPA ####[place] [address] M Ari Concentratn 1) 0.21 (2) 0.38 0.00 Normal [facility] ([id number]) Comment: Performed By: #### B2M, SEPG , SERMPA ####[place] [address] Protein [Mass/Vol] Gamma fraction Normal 2019 [facility] ([id number]) Comment: Performed By: #### B2M, SEPG , SERMPA ####[place] [address] Protein [Mass/Vol] 6.7 6.3-8.0 g/dL Normal 06-08-2020 [facility] ([id number]) Comment: Performed By: #### B2M, SEPG , SERMPA ####[place] [address] SPE Staff Review Reviewed by Michelle Normal 0 06-08-2020 [facility] MD Nancy PhD ([id number]) [facility] ([id number]) Comment: Performed By: #### B2M, SEPG , SERMPA ####[place] [address] [address], [place] [address] [phone] protein elec,ur rand on 2020-06-08 Albumin [Mass/Vol] 54.7 % Normal 06-08-2020 [facility] (06994) Comment: Performed By: #### UJACKIE LAMAS PA ####[address] [place], [place] [phone] Alpha 1 Globulin 5.0 >0 % Normal 06-08-2020 [facility] ([id number]) Comment: Performed By: #### UJACKIE LAMAS PA ####[address] [place], [place] [phone] Alpha 2 Globulin 12.0 % Normal 06-08-2020 [facility] ([id number]) Comment: Performed By: #### UJACKIE LAMAS PA ####[address] [place], [place] [phone] Beta Globulin 16.3 % Normal 06-08-2020 [facility] ([id number]) Comment: Performed By: #### JACKIE MEJIA PA ####[place] [address] [address] [place], [place] [phone] Gamma Globulin 12.0 % Normal 06-08-2020 [facility] ([id number]) Comment: Performed By: #### UEPJACKIE Hebert PA ####[place] [address] [address] [place], [place] [phone] Interpretation SEE COMMENT Normal 06-08-2020 [facility] ([id number]) Comment: Result Comment: No definitiv e M protein is identified on protein electrophoresis. Performed By: #### UEPJACKIE Hebert PA ####[address] [place], [place] [phone] Protein (U) [Mass/Vol] <4 0-20 mg/dL Normal 020 [facility] ([id number]) Comment: Performed By: #### UEPG, URM PA ####[facility] [address] [place], [place] [phone] Staff Review Reviewed by Michelle Joyner 06-08 [facility] MD Nancy PhD ([id number]) [facility] ([id number]) Comment: Performed By: #### JACKIE MEJIA ####[facility] [place], [place] [phone] obsolete on 2020-05 OBSOLETE Refill (HEMAWS) Normal 06-08-2020 Roberto Carlos [facility] LORETA HURST ([id number]) 1945 [facility] Date Time Provider Department ([id number]) 06/08/20 STEVEN AKERS During your visit today, we recorded the following informati on about you: Christina Hernandez MD 06/08/2020 8:10 AM Signed Patient's request for medication is as follows Signed Prescriptions Disp Refills omeprazole (PRILOSEC) 20 mg capsule 180 capsule 0 Sig: Take 2 capsules by mouth once daily. DARIAN: No Authorizing Provider: CHRISTINA HERNANDEZ Order entered - please phone pharmacy and notify patient. Christina Hernandez MD Allergies As of Date: 06/08/2020 Noted Allergy Reaction ADVAIR DISKUS (FLUTICASONE PROPIO*03/15/2011 14 - Other: See Comments Comments: oral yeast infection antibiotics [Other] 03/15/2011 14 - Other: See Comments Comments: Anything in Levaquin family BACTRIM (SULFAMETHOXAZOLE) 01/20/2013 8 - GI Upset PAXIL (PAROXETINE HCL) 11/07/2017 14 - Other: See Comments Comments: Mouth sores, sore throat, salivating constantly, t in taste in his mouth Date Reviewed: 12/16/2019 Reviewed by: Caity Ma Pelfrey - Fully Assessed Reason for Visit: Refill Request [94] Order(s):omeprazole (PRILOSEC) 20 mg capsuleTake 2 capsules by mouth once daily.Disp: 180 capsuleRfl: 0 Prescriptions as of 06/08/2020 Sig: OMEPRAZOLE 20 MG CAPSULE,PORTER* Take 2 capsules by mouth once * GABAPENTIN 300 MG CAPSULE Take 1 capsule by mouth three* MONTELUKAST 10 MG TABLET Take 1 tablet by mouth daily * ALBUTEROL SULFATE HFA 90 MCG/* Inhale 2 Puffs as instructed * COMPOUNDED PRESCRIPTION Compression stockings 30-40mm* PYRIDOXINE (VITAMIN B6) 100 M* Take 100 mg by mouth twice da * CHOLECALCIFEROL (VITAMIN D3) * Take 5,000 Units by mouth onc * ACETAMINOPHEN 500 MG TABLET Take 1,000 mg by mouth as nee* OMEGA-3 FATTY ACIDS 1,000 MG * Take 2 capsules by mouth twic * IBUPROFEN 400 MG TABLET Take 400 mg by mouth as neede* Problem List As Of Date 06/08/2020 Noted Resolved Diverticulosis [K57.90] 01/23/2012 Family history of malignant neoplasm of gastroi*01/23/2012 More... 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 Prescriptions ordered this encounter Disp Refills Start End OMEPRAZOLE 20 MG CAPSULE,DELAYED REL* 180 * 0 06/08/2020 Route: ORAL Sig: Take 2 capsules by mouth once daily. Medications Discontinued During This Encounter omeprazole (PRILOSEC) 20 mg capsule 180 * 0 03/10/2020 06/08/20 Route: ORAL Sig: Take 2 capsules by mouth once daily. Disc: Reason for discontinue is not on file. Encounter Status:Closed by MARGOT DE LA ROSA LPN on 06/08/20 monoclonal prot ur on 2020-06-08 Protein No M protein is No M protein is Normal 06-08-20 [facility] [Mass/Vol] identified. identified. [facility]ini [facility] ([id number]) Comment: Performed By: #### JACKIE MEJIA PA ####[facility] [place], [place] [phone] [facility] Staff Review Reviewed by Michelle Joyner 06-08-2020 [facility] MD Nancy PhD ([id number]) [facility] ([id number]) Comment: Performed By: #### JACKIE MEJIA PA ####[facility] [place], [place] [phone] monclnl protein, ser on 2020-06-08 K/L Ratio, Serum 2.26 0.26-1.65 High 06-08-2020 [facility] ([id number]) Comment: Performed By: #### B2M SEPG , SERMPA ####[facility] [place], [place] [address] [phone] [place], Free, Serum 44.7 3.30-19.40 mg/L High 06-08-2020 [facility] ([id number]) Comment: Result Comment: Test perform ed by an immunoturbidimetric assay on [employer] instrument from [facility] . Immunoglobulin free light chain assay results should be interpreted in con junction with other tests and in correlation with clinical picture. Performed By: #### B2M, SEPG , SERMPA ####[place] [address] [place] [address] [phone] Lambda, Free, Serum 19.8 5.7-26.3 mg/L Normal 06-08-2020 [facility] ([id number]) Comment: Result Comment: Test perform ed by an immunoturbidimetric assay on [employer] instrument from [facility] . Immunoglobulin free light chain assay results should be interpreted in con junction with other tests and in correlation with clinical picture. Performed By: #### PAULIE Esparza SERMPA ####[place] [address] [place] [address] [phone] MPA Interpretation SEE COMMENT Normal 0 [facility] ([id number]) Comment: Result Comment: Atypical res tricted bands are present in the IgM and kappa regions, with an additional band in the lambda region. Consistent with IgM kappa monoclonal gammopathy. The significance of the additional free lambda band is unclear, but may rep resent an additional lambda containing clone. Performed By: #### PAULIE Esparza SERMPA ####[place] [address] [place] [address] [phone] [facility] Serum IgA 223 78-391 mg/dL Normal 06-08-2020 [facility] (96211) Comment: Performed By: #### PAULIE Esparza SERMPA ####[place] [address] [place] [address] [phone] [facility] Serum IgG 778 877-1853 mg/dL Normal 06-08-2020 [facility] (17861) Comment: Performed By: #### B2Sunday SEPEmilee SERMPA ####[facility] [place] [address] [phone] MPA Serum IgM 517 53-334 mg/dL High 06-08-2020 [facility] (86550) Comment: Performed By: #### B2PAULIE Brand SERMPA ####[facility] [place] [address] [phone] Protein M protein is No M protein is Critically 06-08-2020 [facility] [Mass/Vol] present. identified. [facility] ([id number]) Comment: Performed By: #### B2M, SEPG , SERMPA ####[facility] [address] [place] [address] [phone] Staff Review Reviewed by Liz Normal 0 [facility] MD Delores ([id number]) [facility] ([id number]) Comment: Performed By: #### B2M, SEPG , SERMPA ####[facility] [address] [place] [address] [phone] comp metabolic panel on 2020-06-08 Albumin [Mass/Vol] 4.5 3.9-4.9 g/dL Normal 06-08-2020 [facility] ([id number]) ALP [Catalytic 71 38-113 U/L Normal 06-08-2020 [facility] activity/Vol] [facility] and (18175) ALT [Catalytic 57 10-54 U/L High 06-08-2020 [facility] activity/Vol] [facility] and (62715) Anion gap 12 9-18 mmol/L Normal 06-08-2020 [facility] [Moles/Vol] [facility] (92135[facility] AST [Catalytic 30 14-40 U/L Normal 06-08-2020 [facility] activity/Vol] [facility] and (99655) Bilirubin [Mass/Vol] 1.0 0.2-1.3 mg/dL Normal 0 [facility] (02792) Calcium [Mass/Vol] 9.6 8.5-10.2 mg/dL Normal 06-08-2020 [facility] (54246) Chloride [Moles/Vol] 104 97-105 mmol/L Normal 0 [facility] (05371) CO2 [Moles/Vol] 26 22-30 mmol/L Normal 06-08-2020 [facility] (26050) Creatinine 0.71 0.73-1.22 mg/dL Low 06-08-2020 [facility] [Mass/Vol] [facility] (55922) eGFR- Amer. >60 Normal 06-08-2020 [facility] (18120) GFR/1.73 sq M >60 mL/min/{1.73_m Normal 06-08-2020 [facility] predicted among 2} Lissa vargas (51518) non-blacks MDRD (S/P/Bld) [Vol rate/Area] Comment: Result Comment: eGFR (Estima zackery GFR) Units of measure: mL/min/1.73 meters squared eGFR is derived from the ree xpressed MDRD Study equation using the following parameters: serum creatinine, age, gender and race. The creatinine assay has been calibrated to be traceable to IDMS. An eGFR <60 mL/min/1.73m2 fo r >3 months is consistent with chronic kidney disease. Refer to KDOQI guidelines for clinical interpretation. In patients with unstable re nal function, e.g. those with acute kidney injury, the eGFR may not accurately reflect actual GFR. Glucose [Mass/Vol] 91 74-99 mg/dL Normal 06-08-2020 [facility] ([id number]) Comment: Result Comment: The [place] Diabetes Association (ADA) provides guidance for cutoff values for fasting glucose and random glucose. The ADA defines fasting as no caloric intake for at least 8 hours. Fas ting plasma glucose results between 100 to 125 mg/dL indicate increased risk for diabetes (prediabetes). Fasting plasma glucose resul ts greater than or equal to 126 mg/dL meet the criteria for diagnosis of diabetes. In the absence of unequivocal hyperglycemia, results should be confirmed by repeat testing. In a patient with classic s ymptoms of hyperglycemia or hyperglycemic crisis, random plasma glucose results greater than or equal to 200 mg/dL meet the criteria for diagnosis of diabetes. Reference: Standards of [facility] Care in Diabetes 2016, [place] Diabetes Association. Diabetes Care. 2016.39(Suppl 1). Potassium [Moles/Vol] 4.4 3.7-5.1 mmol/L Normal 06-08-20 20 [facility] ([id number]) Protein [Mass/Vol] 7.1 6.3-8.0 g/dL Normal 06-08-2020 [facility] ([id number]) Sodium [Moles/Vol] 142 136-144 mmol/L Normal 06-08-2020 [facility] ([id number]) Urea nitrogen [Mass/Vol] 10 9-24 mg/dL Normal 06-08 [facility] ([id number]) cbc and differential on 2020-06-08 Abs Baso 0.00 <0.11 k/uL Normal 06-08-2020 [facility] ([id number]) Abs Vance 0.75 <0.87 k/uL Normal 06-08-2020 [facility] ([id number]) Abs Neut 4.64 1.45-7.50 k/uL Normal 06-08-2020 [facility] ([id number]) Absolute nRBC 0.14 <0.01 k/uL High 06-08-2020 [place] [facility] ([id number]) ANC(includeSEG+BAND 4.64 k/uL Normal 06-08-2020 [place] ) [facility] (77089) Anisocytosis Ql Present Normal 06-08-2020 [facility] (Bld) [facility] ([id number]) Basophils/100 WBC 0.0 % Normal 06-08-2020 [facility] (d) [facility] (22652) DTYPE Manual Diff Normal 06-08-2020 [facility] ([id number]) Eosinophils (Bld) 0.20 <0.46 k/uL Normal 06-08-2020 [facility] [#/Vol] [facility] (68140) Eosinophils/100 WBC 3.0 % Normal 06-08-2020 [place] (Bld) [facility] ([id number]) Erythrocyte 22.9 11.5-15.0 % High 06-08-2020 [facility] distribution width C linic (RBC) [Ratio] [place] and ([id number]) Hematocrit (Bld) 35.4 39.0-51.0 % Low 06-08-2020 [facility] [Volume fraction] Cl inic [place] (01773) Hemoglobin (Bld) 11.3 13.0-17.0 g/dL Low 06-08-2020 [facility] [Mass/Vol] [facility] (43768) Lymphocytes (Bld) 1.23 1.00-4.00 k/uL Normal 06-08-2020 [facility] [#/Vol] [facility] (69194) Lymphocytes/100 WBC 18.0 % Normal 06-08-2020 [place] (Bld) [facility] (01238) MCH (RBC) [Entitic 33.2 26.0-34.0 pG Normal 06-08-2020 [place] mass] [facility] ([id number]) MCHC (RBC) 31.9 30.5-36.0 g/dL [facility] (57767) MCV (RBC) [Entitic 104.1 80.0-100.0 fL High 06-08-2020 [place] vol] [facility] (51092) Monocytes/100 WBC 11.0 % Normal 06-08-2020 [facility] (Bld) [facility] (99338) Neutrophils/100 WBC 68.0 % Normal 06-08-2020 [place] (Bld) [facility] (42501) NRBCs 2 0 /100 WBC High 06-08-2020 [facility] (55556) Ovalocytes Few Normal 06-08-2020 [facility] (30975) Platelet mean 10.5 9.0-12.7 fL Normal 06-08-2020 [facility] (Bld) [facility] [Entitic vol] [facility] and (64305) Platelets (Bld) 324 150-400 k/uL Normal 06-08-2020 [facility] [#/Vol] [facility] (50453) Platelets (Bld) Platelet Normal 06-08-2020 [facility] [#/Vol] estimate Clinic adequate [place] (68575) Polychromasia Slight Normal 06-08-2020 [facility] (48698) RBC (Bld) [#/Vol] 3.40 4.20-6.00 m/uL Low 06-08-2020 C [facility] (29272) RBC Fragments Few Normal 06-08-2020 [facility] ([id number]) WBC (Bld) [#/Vol] 6.82 3.70-11.00 k/uL Normal 06-08-2020 [facility] (83036) b2 microglobulin on 2020-06-08 Globulin (S) [Mass/Vol] 2.5 <3.1 mg/L Normal 2019 [facility] ([id number]) Comment: Performed By: #### B2M, SEPG , SERMPA ####[facility] [id number] [place] [address] [phone] progress on 2020-05 PROGRESS HNO ID: [id number] Normal 06-05-2020 [facility] Author: Patricia Ray PINA [place] ([id number]) Service: ? Author Type: ? Type: Progress Notes Filed: 06/09/2020 10:54 AM Note Text: aware and swelling is worse and so will take him to ER to rule out a blood clot. PROGRESS HNO ID: [id number] Normal 06-05-2020 [facility] Author: Shaheed Shukla [place] ([id number]) Service: ? Author Type: Physician Type: Progress Notes Filed: 06/09/2020 10:54 AM Note Text: They were still worried about covid despite the negative diego ting. 1. His initial follow up should actually be via virtual visi t given the above 2. If having worsening edema, just in hospital and possible covid, back to ER to rule out clot PROGRESS HNO ID: [id number] Normal 06-05-2020 [facility] Author: Shaheed Shukla [place] ([id number]) Service: ? Author Type: Physician Type: Progress Notes Filed: 06/09/2020 10:54 AM Note Text: Can you get me the discharge summary to look at PROGRESS HNO ID: [id number] Normal 06-05-2020 [facility] Author: Patricia Poe [employer] [facility] ([id number]) Service: ? Author Type: ? Type: Progress Notes Filed: 06/09/2020 10:54 AM Note Text: TRANSITION CARE MANAGEMENT (TCM) INITIAL CONTACT Assurance Engineer Outreach Provider Action/FYI: Patient was discontinued from [facility] 06/02/20. Was treated for UTI while there. Sent home on Keflex 500mg TID for 7 days. According to patient continues to c/o burning with urin ation and has been taking AZO which is helping some but questions if the symptoms should be continuing still at this time. also mentioned that his legs from ankles up into thighs are swollen. Was given Lasix while in hospital but was not sent home with any. Could not find if doppler was done on legs in hospital records. Qu estions if he should be on Lasix at home while legs remain swollen. Was tested for COVID twice but both times testing came back negative racquel though had a lot of the symptoms. See telephone encounter 06/05/20. Initial contact with patient post discharge, spoke to spouse . Patient identified by name and . TRANSITION CARE MANAGEMENT INITIAL OUTREACH DOCUMENTATION: No flowsheet data found. SUMMARY: -Pt discharged from [facility] on 06/02/20. -Admitted for: Hypoxia, possible reaction to transfusion, zuniga spected COVID and sepsis secondary to UTI Do you have a hospital follow up appointment with your PCP? Appointment on 07/09/20 with Mauro Carter. MEDICATIONS: Many patients have questions or concerns about their medicat ions once they are home. Were you prescribed any new medications? Yes Keflex 500 mg three times daily x 7 days. Mucinex 1,200 mg twice daily. Albuterol inhaler 2 puffs every 4 hours as needed. Were you told to hold any medications? No Were any of your medications discontinued? No Do you have any questions about getting or taking your medic ations? No Your discharge instructions/After visit Summary (AVS) are im portant in guiding you through the recovery process. Is there anything I might help you understand? No Do you have all the necessary equipment and supplies at home ? Yes Medical records from recent hospitalization: On Dr. tomlinson for review. cnptoutreach on CNPTOUTREACH Patient Outreach (FAMPWS) Normal 0 06-05-2020 [place] [facility] LORETA HURST ([id number]) 1945 [facility] Date Time Provider Department ([id number]) 06/05/20 CARTER (DIAZ) FAMPWS During your visit today, we recorded the following informati on about you: Patricia Poe LPN 06/09/2020 10:54 AM Signed TRANSITION CARE MANAGEMENT (TCM) INITIAL CONTACT Assurance Engineer Outreach Provider Action/FYI: Patient was discontinued from [facility] 06/02/20. Was treate d for UTI while there. Sent home on Keflex 500mg TID for 7 days. According to patient continues to c /o burning with urination and has been taking AZO which is helping some but questi ons if the symptoms should be continuing still at this time. also mentioned that his legs from ankles up into thighs are swollen. [facility] but was not sent home with any. Could not find if doppler was done on legs in hospital records. Questions if h e should be on Lasix at home while legs remain swollen. Was tested for COVID twice but both times testing came back negative racquel though had a lot of the symptoms. See telephone encounter 06/05/20. Initial contact with patient post discharge, spoke to spouse . Patient identified by name and . TRANSITION CARE MANAGEMENT INITIAL OUTREACH DOCUMENTATION: No flowsheet data found. SUMMARY: -Pt discharged from [facility] on 06/02/20. -Admitted for: Hypoxia, possible reaction to tra nsfusion, suspected COVID and sepsis secondary to UTI Do you have a hospital follow up appointment with your PCP? Appointment on 07/09/20 with Mauro Carter. MEDICATIONS: Many patients have questions or concerns about their medications once they are home. Were you prescribed any new medications? Yes Keflex 500 mg three times daily x 7 days. Mucinex 1,200 mg twice daily. Albuterol inhaler 2 puffs every 4 hours as needed. Were you told to hold any medications? No Were any of your medications discontinued? No Do you have any questions about getting or taking your medic ations? No Your discharge instructions/After visit Summary (AVS) are important in guiding you through the recovery pro cess. Is there anything I might help you understand? No Do you have all the necessary equipment and supplies at home ? Yes Medical records from recent hospitalization: On Dr. tomlinson for review. Shaheed Shukla MD 06/09/2020 10:54 AM Signed Can you get me the discharge summary to look at Shaheed Shukla MD 06/09/2020 10:54 AM Signed They were still worried about covid despite the negative diego ting. 1. His initial follow up should actually be via virtual visit given the above 2. If having worsening edema, just in hospital a nd possible covid, back to ER to rule out clot Patricia Ray PINA 06/09/2020 10:54 AM Signed aware and swelling is w orse and so will take him to ER to rule out a blood clot. Allergies As of Date: 06/05/2020 Noted Allergy Reaction ADVAIR DISKUS (FLUTICASONE PROPIO*03/15/2011 14 - Other: See Comments Comments: oral yeast infection antibiotics [Other] 03/15/2011 14 - Other: See Comments Comments: Anything in Levaquin family BACTRIM (SULFAMETHOXAZOLE) 01/20/2013 8 - GI Upset PAXIL (PAROXETINE HCL) 11/07/2017 14 - Other: See Comments Comments: Mouth sores, sore throat, salivating constantly, t in taste in his mouth Date Reviewed: 12/16/2019 Reviewed by: Caity Moya - Fully Assessed Reason for Visit: tansition of care [Other] Prescriptions as of 06/05/2020 Sig: GABAPENTIN 300 MG CAPSULE Take 1 capsule by mouth three* X OMEPRAZOLE 20 MG CAPSULE,PORTER* Take 2 capsules by mouth on ce* MONTELUKAST 10 MG TABLET Take 1 tablet by mouth daily * ALBUTEROL SULFATE HFA 90 MCG/* Inhale 2 Puffs as instructed * COMPOUNDED PRESCRIPTION Compression stockings 30-40mm* PYRIDOXINE (VITAMIN B6) 100 M* Take 100 mg by mouth twice da * CHOLECALCIFEROL (VITAMIN D3) * Take 5,000 Units by mouth onc * ACETAMINOPHEN 500 MG TABLET Take 1,000 mg by mouth as nee* OMEGA-3 FATTY ACIDS 1,000 MG * Take 2 capsules by mouth twic * IBUPROFEN 400 MG TABLET Take 400 mg by mouth as neede* Problem List As Of Date 06/05/2020 Noted Resolved Diverticulosis [K57.90] 01/23/2012 Family history of malignant neoplasm of gastroi*01/23/2012 More... 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 Encounter Status:Closed by PATRICIA POE LPN on 06/09/20 cnpn on 2020-06-[facility] Normal 06-05-2020 [place] [facility] LORETA HURST ([id number]) 1945 [facility] Date Time Provider Department ([id number]) 06/05/20 [facility] (DIAZ) [facility] During your visit today, we recorded the following informati on about you: Patricia Poe LPN 06/05/2020 1:25 PM Signed Patient was discontinued from [facility] 06/02/20. Was treate d for UTI while there. Sent home on Keflex 500mg TID for 7 days. According to patient continues to c /o burning with urination and has been taking AZO which is helping some but questi ons if the symptoms should be continuing still at this time. also mentioned that his legs from ankles up into thighs are swollen. [facility] was [facility] home with any. Could not find if doppler was done on legs in hospital records. Questions if h e should be on Lasix at home while legs remain swollen. Was tested for COVID twice but both times testing came back negative racquel though had a lot of the symptoms. Shaheed Shukla MD 06/05/2020 3:36 PM Signed See other note Allergies As of Date: 06/05/2020 Noted Allergy Reaction ADVAIR DISKUS (FLUTICASONE PROPIO*03/15/2011 14 - Other: See Comments Comments: oral yeast infection antibiotics [Other] 03/15/2011 14 - Other: See Comments Comments: Anything in Levaquin family BACTRIM (SULFAMETHOXAZOLE) 01/20/2013 8 - GI Upset PAXIL (PAROXETINE HCL) 11/07/2017 14 - Other: See Comments Comments: Mouth sores, sore throat, salivating constantly, t in taste in his mouth Date Reviewed: 12/16/2019 Reviewed by: Caity Moya - Fully Assessed Reason for Visit: UTI [116] Edema [39] Prescriptions as of 06/05/2020 Sig: GABAPENTIN 300 MG CAPSULE Take 1 capsule by mouth three* OMEPRAZOLE 20 MG CAPSULE,PORTER* Take 2 capsules by mouth once * MONTELUKAST 10 MG TABLET Take 1 tablet by mouth daily * ALBUTEROL SULFATE HFA 90 MCG/* Inhale 2 Puffs as instructed * COMPOUNDED PRESCRIPTION Compression stockings 30-40mm* PYRIDOXINE (VITAMIN B6) 100 M* Take 100 mg by mouth twice da * CHOLECALCIFEROL (VITAMIN D3) * Take 5,000 Units by mouth onc * ACETAMINOPHEN 500 MG TABLET Take 1,000 mg by mouth as nee* OMEGA-3 FATTY ACIDS 1,000 MG * Take 2 capsules by mouth twic * IBUPROFEN 400 MG TABLET Take 400 mg by mouth as neede* Problem List As Of Date 06/05/2020 Noted Resolved Diverticulosis [K57.90] 01/23/2012 Family history of malignant neoplasm of gastroi*01/23/2012 More... 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 Encounter Status:Closed by SHAHEED SHUKLA MD on 06/05/20 cnpn on 2020-05-25 CNPN Telephone (DEMI) Normal 05-25-2020 [place] [facility] LORETA HURST ([id number]) 1945 [facility] Date Time Provider Department ([id number]) 05/25/20 STEVEN AKERS During your visit today, we recorded the following informati on about you: Steven Akers DO 05/25/2020 11:02 AM Signed Order filed. Steven Akers DO Allergies As of Date: 05/25/2020 Noted Allergy Reaction ADVAIR DISKUS (FLUTICASONE PROPIO*03/15/2011 14 - Other: See Comments Comments: oral yeast infection antibiotics [Other] 03/15/2011 14 - Other: See Comments Comments: Anything in Levaquin family BACTRIM (SULFAMETHOXAZOLE) 01/20/2013 8 - GI Upset PAXIL (PAROXETINE HCL) 11/07/2017 14 - Other: See Comments Comments: Mouth sores, sore throat, salivating constantly, t in taste in his mouth Date Reviewed: 12/16/2019 Reviewed by: Caity Moya - Fully Assessed Reason for Visit: Orders [681] Primary Visit Diagnosis:MDS (myelodysplastic syndrome), low grade (HCC) [D46.20] Order(s):CBC + DIFF [SQCBCDIF] Order #: [id number] STANDING Prescriptions as of 05/25/2020 Sig: GABAPENTIN 300 MG CAPSULE Take 1 capsule by mouth three* OMEPRAZOLE 20 MG CAPSULE,PORTER* Take 2 capsules by mouth once * MONTELUKAST 10 MG TABLET Take 1 tablet by mouth daily * ALBUTEROL SULFATE HFA 90 MCG/* Inhale 2 Puffs as instructed * COMPOUNDED PRESCRIPTION Compression stockings 30-40mm* PYRIDOXINE (VITAMIN B6) 100 M* Take 100 mg by mouth twice da * CHOLECALCIFEROL (VITAMIN D3) * Take 5,000 Units by mouth onc * ACETAMINOPHEN 500 MG TABLET Take 1,000 mg by mouth as nee* OMEGA-3 FATTY ACIDS 1,000 MG * Take 2 capsules by mouth twic * IBUPROFEN 400 MG TABLET Take 400 mg by mouth as neede* Problem List As Of Date 05/25/2020 Noted Resolved Diverticulosis [K57.90] 01/23/2012 Family history of malignant neoplasm of gastroi*01/23/2012 More... 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 04/28/2017 MDS (myelodysplastic syndrome), low grade (HCC)*12/13/2015 Polyneuropathy in other diseases classified els*05/08/2016 Chronic GERD [K21.9] 05/08/2016 Idiopathic aplastic anemia (HCC) [D61.3] 08/11/2017 Cough [R05] 05/22/2018 Swelling of limb [M79.89] 05/22/2018 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 (HCC) [C88.0] 08/21/2018 History of transfusion [Z92.89] 12/24/2018 Encounter Status:Closed by DOMONIQUE LÓPEZ on 05/25/20 CNPN Telephone ([employer]) Normal 05-25-2020 [place] [facility] LORETA HURST ([id number]) 1945 M [place] Date Time Provider Department ([id number]) 05/25/20 STEVEN AKERS During your visit today, we recorded the following informati on about you: Domonique López LPN, LPN 05/25/2020 4:08 PM Signed Pt. Scheduled for transfusion 2 inuts packed cells @ [facility] 05/10 7 @ 9:30 am Pt. And lab notified orders faxed. Domonique López LPN Allergies As of Date: 05/25/2020 Noted Allergy Reaction ADVAIR DISKUS (FLUTICASONE PROPIO*03/15/2011 14 - Other: See Comments Comments: oral yeast infection antibiotics [Other] 03/15/2011 14 - Other: See Comments Comments: Anything in Levaquin family BACTRIM (SULFAMETHOXAZOLE) 01/20/2013 8 - GI Upset PAXIL (PAROXETINE HCL) 11/07/2017 14 - Other: See Comments Comments: Mouth sores, sore throat, salivating constantly, t in taste in his mouth Date Reviewed: 12/16/2019 Reviewed by: Caity Moya - Fully Assessed Reason for Visit: Transfusion [880] Prescriptions as of 05/25/2020 Sig: GABAPENTIN 300 MG CAPSULE Take 1 capsule by mouth three* OMEPRAZOLE 20 MG CAPSULE,PORTER* Take 2 capsules by mouth once * MONTELUKAST 10 MG TABLET Take 1 tablet by mouth daily * ALBUTEROL SULFATE HFA 90 MCG/* Inhale 2 Puffs as instructed * COMPOUNDED PRESCRIPTION Compression stockings 30-40mm* PYRIDOXINE (VITAMIN B6) 100 M* Take 100 mg by mouth twice da * CHOLECALCIFEROL (VITAMIN D3) * Take 5,000 Units by mouth onc * ACETAMINOPHEN 500 MG TABLET Take 1,000 mg by mouth as nee* OMEGA-3 FATTY ACIDS 1,000 MG * Take 2 capsules by mouth twic * IBUPROFEN 400 MG TABLET Take 400 mg by mouth as neede* Problem List As Of Date 05/25/2020 Noted Resolved Diverticulosis [K57.90] 01/23/2012 Family history of malignant neoplasm of gastroi*01/23/2012 More... 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 04/28/2017 MDS (myelodysplastic syndrome), low grade (HCC)*12/13/2015 Polyneuropathy in other diseases classified els*05/08/2016 Chronic GERD [K21.9] 05/08/2016 Idiopathic aplastic anemia (HCC) [D61.3] 08/11/2017 Cough [R05] 05/22/2018 Swelling of limb [M79.89] 05/22/2018 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 (HCC) [C88.0] 08/21/2018 History of transfusion [Z92.89] 12/24/2018 Encounter Status:Closed by DOMONIQUE LÓPEZ on 05/25/20 cbc and differential on 2020-05-25 Abs Baso <0.03 <0.11 Normal 05-25-2020 [facility] ([id number]) Abs Vance 0.36 <0.87 k/uL Normal 05-25-2020 [facility] ([id number]) Abs Neut 2.76 1.45-7.50 k/uL Normal 05-25-2020 [facility] ([id number]) Absolute nRBC 0.02 <0.01 k/uL High 05-25-2020 [facility] ([id number]) Basophils/100 WBC 0.5 % Normal 05-25-2020 [facility] [place] ([id number]) DTYPE Auto Diff Normal 05-25-2020 [facility] ([id number]) Eosinophils (d) 0.05 <0.46 k/uL Normal 05-25-2020 [facility] [#/Vol] [place] ([id number]) Eosinophils/100 WBC 1.2 % Normal 05-25-2020 [facility] (Bld) [place] ([id number]) Erythrocyte 23.3 11.5-15.0 % High 05-25-2020 [facility] distribution width [facility] ([id number]) (RBC) [Ratio] Hematocrit (Bld) 25.5 39.0-51.0 % Low 05-25-2020 [facility] [Volume [facility]] [facility] ([id number]) Hemoglobin (Bld) 8.5 13.0-17.0 g/dL Low 05-25-2020 [facility] [Mass/Vol] [place] ([id number]) Lymphocytes (Bld) 1.05 1.00-4.00 k/uL Normal 05-25-2020 [facility] [#/Vol] [place] ([id number]) Lymphocytes/100 WBC 24.7 % Normal 05-25-2020 [facility] (Bld) [place] ([id number]) MCH (RBC) [Entitic 36.6 26.0-34.0 pG High 05-25-2020 [facility] mass] [place] ([id number]) MCHC (RBC) 33.3 30.5-36.0 g/dL Normal 05-25-2020 [facility] [Mass/Vol] [place] ([id number]) MCV (RBC) [Entitic 109.9 80.0-100.0 fL High 05-25-2020 [facility] vol] [place] (89359) Monocytes/100 WBC 8.5 % Normal 05-25-2020 [facility] (Bld) [place] ([id number]) Neutrophils/100 WBC 65.1 % Normal 05-25-2020 [facility] (Bld) [place] ([id number]) NRBCs 0.5 0 /100 WBC High 05-25-2020 [facility] ([id number]) Platelet mean volume 10.2 9.0-12.7 fL Normal 0 [facility] (d) [Entitic vol] [place] (25032) Platelets (Bld) 250 150-400 k/uL Normal 05-25-2020 [facility] [#/Vol] [facility] ([id number]) RBC (Bld) [#/Vol] 2.32 4.20-6.00 m/uL Low 05-25-2020 [facility] ([id number]) WBC (Bld) [#/Vol] 4.25 3.70-11.00 k/uL Normal 05-25-2020 [facility] ([id number]) obsolete on 2020-05 OBSOLETE Refill (FAMPWS) Normal 05-23-2020 [facility] LORETA HURST ([id number]) 1945 [facility] Date Time Provider Department ([id number]) 05/23/20 CARTER (DIAZ) FAMPWS During your visit today, we recorded the following informati on about you: Bing Marquis Ma 05/23/2020 12:44 PM Signed Patient has been identified by name and date of : Yes Pending Prescriptions Disp Refills GABAPENTIN 300 MG CAPSULE 270 capsule 1 Sig: Take 1 capsule by mouth three times daily for 90 days. DARIAN: No RX INSTRUCTIONS: Patient aware RX will be sent to pharmacy. No need to notify patient. Bing Marquis Ma Last ov: 11/2019 Last refill: 11/2019 No appointment scheduled Allergies As of Date: 05/23/2020 Noted Allergy Reaction ADVAIR DISKUS (FLUTICASONE PROPIO*03/15/2011 14 - Other: See Comments Comments: oral yeast infection antibiotics [Other] 03/15/2011 14 - Other: See Comments Comments: Anything in Levaquin family BACTRIM (SULFAMETHOXAZOLE) 01/20/2013 8 - GI Upset PAXIL (PAROXETINE HCL) 11/07/2017 14 - Other: See Comments Comments: Mouth sores, sore throat, salivating constantly, t in taste in his mouth Date Reviewed: 12/16/2019 Reviewed by: Caity Moya - Fully Assessed Reason for Visit: Refill Request [94] Visit Diagnoses:Chronic midline low back pain without sciatica [M54.5, G89.29] Polyneuropathy in other diseases classified elsewhere ([facility]) [G63] Order(s):gabapentin (NEURONTIN) 300 mg capsuleTake 1 capsu le by mouth three times daily for 90 days.Disp: 270 capsuleRfl: 1 Prescriptions as of 05/23/2020 Sig: GABAPENTIN 300 MG CAPSULE Take 1 capsule by mouth three* OMEPRAZOLE 20 MG CAPSULE,PORTER* Take 2 capsules by mouth once * MONTELUKAST 10 MG TABLET Take 1 tablet by mouth daily * ALBUTEROL SULFATE HFA 90 MCG/* Inhale 2 Puffs as instructed * COMPOUNDED PRESCRIPTION Compression stockings 30-40mm* PYRIDOXINE (VITAMIN B6) 100 M* Take 100 mg by mouth twice da * CHOLECALCIFEROL (VITAMIN D3) * Take 5,000 Units by mouth onc * ACETAMINOPHEN 500 MG TABLET Take 1,000 mg by mouth as nee* OMEGA-3 FATTY ACIDS 1,000 MG * Take 2 capsules by mouth twic * IBUPROFEN 400 MG TABLET Take 400 mg by mouth as neede* Problem List As Of Date 05/23/2020 Noted Resolved Diverticulosis [K57.90] 01/23/2012 Family history of malignant neoplasm of gastroi*01/23/2012 More... 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 Medications Discontinued During This Encounter gabapentin (NEURONTIN) 300 mg capsule 270 * 1 11/18/20192019 Route: ORAL Sig: Take 1 capsule by mouth three times daily for 90 days. Disc: Reason for discontinue is not on file. Encounter Status:Closed by Sunday CARTER PA-C on 05/23/20 cnpn on 2020-04-20 KAYLEEN Telephone (DEMI) Normal 04-20-2020 [facility] LORETA HURST ([id number]) 1945 [facility] Date Time Provider Department ([id number]) 04/20/20 STEVEN AKERS During your visit today, we recorded the following informati on about you: Margot De La Rosa LPN 04/20/2020 11:41 AM Signed Patient scheduled for 1 unit PRBC's 04/21/2020 @ [facility], [facility]. Orders faxed. Patient and lab aware. Margot De La Rosa LPN Allergies As of Date: 04/20/2020 Noted Allergy Reaction ADVAIR DISKUS (FLUTICASONE PROPIO*03/15/2011 14 - Other: See Comments Comments: oral yeast infection antibiotics [Other] 03/15/2011 14 - Other: See Comments Comments: Anything in Levaquin family BACTRIM (SULFAMETHOXAZOLE) 01/20/2013 8 - GI Upset PAXIL (PAROXETINE HCL) 11/07/2017 14 - Other: See Comments Comments: Mouth sores, sore throat, salivating constantly, t in taste in his mouth Date Reviewed: 12/16/2019 Reviewed by: Caity Moya - Fully Assessed Reason for Visit: Transfusion [880] Prescriptions as of 04/20/2020 Sig: OMEPRAZOLE 20 MG CAPSULE,PORTER* Take 2 capsules by mouth once * MONTELUKAST 10 MG TABLET Take 1 tablet by mouth daily * GABAPENTIN 300 MG CAPSULE Take 1 capsule by mouth three* ALBUTEROL SULFATE HFA 90 MCG/* Inhale 2 Puffs as instructed * COMPOUNDED PRESCRIPTION Compression stockings 30-40mm* PYRIDOXINE (VITAMIN B6) 100 M* Take 100 mg by mouth twice da * CHOLECALCIFEROL (VITAMIN D3) * Take 5,000 Units by mouth onc * ACETAMINOPHEN 500 MG TABLET Take 1,000 mg by mouth as nee* OMEGA-3 FATTY ACIDS 1,000 MG * Take 2 capsules by mouth twic * IBUPROFEN 400 MG TABLET Take 400 mg by mouth as neede* Problem List As Of Date 04/20/2020 Noted Resolved Diverticulosis [K57.90] 01/23/2012 Family history of malignant neoplasm of gastroi*01/23/2012 More... 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 04/28/2017 MDS (myelodysplastic syndrome), low grade (HCC)*12/13/2015 Polyneuropathy in other diseases classified els*05/08/2016 Chronic GERD [K21.9] 05/08/2016 Idiopathic aplastic anemia (HCC) [D61.3] 08/11/2017 Cough [R05] 05/22/2018 Swelling of limb [M79.89] 05/22/2018 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 (HCC) [C88.0] 08/21/2018 History of transfusion [Z92.89] 12/24/2018 Encounter Status:Closed by MARGOT DE LA ROSA LPN on 04/20/20 cbc on 2020-04-20 Absolute nRBC 0.02 <0.01 k/uL High 04-20-2020 [facility] ([id number]) Erythrocyte distribution 22.1 11.5-15.0 % High 04-20 [facility] width (RBC) [Ratio] [place] ([id number]) Hematocrit (Bld) [Volume 28.5 39.0-51.0 % Low 04-20 [facility] fraction] [facility] ([id number]) Hemoglobin (Bld) 9.5 13.0-17.0 g/dL Low 04-20-2020 [facility] [Mass/Vol] [place] ([id number]) MCH (RBC) [Entitic mass] 36.0 26.0-34.0 pG High 04-20 [facility] ([id number]) MCHC (RBC) [Mass/Vol] 33.3 30.5-36.0 g/dL Normal 04-20-20 20 [facility] ([id number]) MCV (RBC) [Entitic vol] 108.0 80.0-100.0 fL High 04-20 [facility] ([id number]) Platelet mean volume 10.3 9.0-12.7 fL Normal 0 [facility] (Bld) [Entitic vol] [facility] ([id number]) Platelets (Bld) [#/Vol] 271 150-400 k/uL Normal 2019 [facility] ([id number]) RBC (Bld) [#/Vol] 2.64 4.20-6.00 m/uL Low 04-20-2020 [facility] ([id number]) WBC (Bld) [#/Vol] 4.39 3.70-11.00 k/uL Normal 04-20-2020 [facility] ([id number]) cnpn on 2020-03-23 CNPN Telephone (DEMI) Normal 03-23-2020 [place] LORETA HURST ([id number]) 1945 [facility] Date Time Provider Department ([id number]) 03/23/20 STEVEN AKERS During your visit today, we recorded the following informati on about you: Darlyn Rascon, RN, RN 03/23/2020 12:[address] Akers reviewed CBC and ordered transfusion. P t and lab notified. Scheduled for 830 tomorr. Orders faxed and taken to lab. Allergies As of Date: 03/23/2020 Noted Allergy Reaction ADVAIR DISKUS (FLUTICASONE PROPIO*03/15/2011 14 - Other: See Comments Comments: oral yeast infection antibiotics [Other] 03/15/2011 14 - Other: See Comments Comments: Anything in Levaquin family BACTRIM (SULFAMETHOXAZOLE) 01/20/2013 8 - GI Upset PAXIL (PAROXETINE HCL) 11/07/2017 14 - Other: See Comments Comments: Mouth sores, sore throat, salivating constantly, t in taste in his mouth Date Reviewed: 12/16/2019 Reviewed by: Caity Moya - Fully Assessed Reason for Visit: Results [95] Cmt: transfuion Reason For Visit History Recorded Prescriptions as of 03/23/2020 Sig: OMEPRAZOLE 20 MG CAPSULE,PORTER* Take 2 capsules by mouth once * MONTELUKAST 10 MG TABLET Take 1 tablet by mouth daily * GABAPENTIN 300 MG CAPSULE Take 1 capsule by mouth three* ALBUTEROL SULFATE HFA 90 MCG/* Inhale 2 Puffs as instructed * COMPOUNDED PRESCRIPTION Compression stockings 30-40mm* PYRIDOXINE (VITAMIN B6) 100 M* Take 100 mg by mouth twice da * CHOLECALCIFEROL (VITAMIN D3) * Take 5,000 Units by mouth onc * ACETAMINOPHEN 500 MG TABLET Take 1,000 mg by mouth as nee* OMEGA-3 FATTY ACIDS 1,000 MG * Take 2 capsules by mouth twic * IBUPROFEN 400 MG TABLET Take 400 mg by mouth as neede* Problem List As Of Date 03/23/2020 Noted Resolved Diverticulosis [K57.90] 01/23/2012 Family history of malignant neoplasm of gastroi*01/23/2012 More... 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 04/28/2017 MDS (myelodysplastic syndrome), low grade (HCC)*12/13/2015 Polyneuropathy in other diseases classified els*05/08/2016 Chronic GERD [K21.9] 05/08/2016 Idiopathic aplastic anemia (HCC) [D61.3] 08/11/2017 Cough [R05] 05/22/2018 Swelling of limb [M79.89] 05/22/2018 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 (HCC) [C88.0] 08/21/2018 History of transfusion [Z92.89] 12/24/2018 Encounter Status:Closed by DARLYN RASCON RN on 03/23/20 cbc on 2020-03-23 Absolute nRBC 0.02 <0.01 k/uL High 03-23-2020 [facility] ([id number]) Erythrocyte distribution 22.8 11.5-15.0 % High 03-23 [facility] width (RBC) [Ratio] [place] ([id number]) Hematocrit (Bld) [Volume 25.1 39.0-51.0 % Low 03-23 [facility] fraction] [place] ([id number]) Hemoglobin (Bld) 8.4 13.0-17.0 g/dL Low 03-23-2020 [facility] [Mass/Vol] [place] ([id number]) MCH (RBC) [Entitic mass] 37.2 26.0-34.0 pG High 03-23 [facility] ([id number]) MCHC (RBC) [Mass/Vol] 33.5 30.5-36.0 g/dL Normal 03-23-20 20 [facility] ([id number]) MCV (RBC) [Entitic vol] 111.1 80.0-100.0 fL High 03-23 [facility] ([id number]) Comment: Result Comment: RECHECKED Platelet mean volume 11.1 9.0-12.7 fL Normal 0 [facility] (Bld) [Entitic vol] [place] ([id number]) Platelets (Bld) [#/Vol] 266 150-400 k/uL Normal 2019 [facility] ([id number]) RBC (Bld) [#/Vol] 2.26 4.20-6.00 m/uL Low 03-23-2020 [facility] ([id number]) WBC (Bld) [#/Vol] 4.88 3.70-11.00 k/uL Normal 03-23-2020 [facility] ([id number]) obsolete on 2020-03 OBSOLETE Refill (HEMAWS) Normal 03-10-2020 [facility] LORETA HURST Arnie ([id number]) 1945 M [place] Date Time Provider Department ([id number]) 03/10/20 STEVEN AKERS During your visit today, we recorded the following informati on about you: Allergies As of Date: 03/10/2020 Noted Allergy Reaction ADVAIR DISKUS (FLUTICASONE PROPIO*03/15/2011 14 - Other: See Comments Comments: oral yeast infection antibiotics [Other] 03/15/2011 14 - Other: See Comments Comments: Anything in Levaquin family BACTRIM (SULFAMETHOXAZOLE) 01/20/2013 8 - GI Upset PAXIL (PAROXETINE HCL) 11/07/2017 14 - Other: See Comments Comments: Mouth sores, sore throat, salivating constantly, t in taste in his mouth Date Reviewed: 12/16/2019 Reviewed by: Caity Moya - Fully Assessed Reason for Visit: Refill Request [94] Order(s):omeprazole (PRILOSEC) 20 mg capsuleTake 2 capsules by mouth once daily.Disp: 180 capsuleRfl: 0 Prescriptions as of 03/10/2020 Sig: OMEPRAZOLE 20 MG CAPSULE,PORTER* Take 2 capsules by mouth once * MONTELUKAST 10 MG TABLET Take 1 tablet by mouth daily * GABAPENTIN 300 MG CAPSULE Take 1 capsule by mouth three* ALBUTEROL SULFATE HFA 90 MCG/* Inhale 2 Puffs as instructed * COMPOUNDED PRESCRIPTION Compression stockings 30-40mm* PYRIDOXINE (VITAMIN B6) 100 M* Take 100 mg by mouth twice da * CHOLECALCIFEROL (VITAMIN D3) * Take 5,000 Units by mouth onc * ACETAMINOPHEN 500 MG TABLET Take 1,000 mg by mouth as nee* OMEGA-3 FATTY ACIDS 1,000 MG * Take 2 capsules by mouth twic * IBUPROFEN 400 MG TABLET Take 400 mg by mouth as neede* Problem List As Of Date 03/10/2020 Noted Resolved Diverticulosis [K57.90] 01/23/2012 Family history of malignant neoplasm of gastroi*01/23/2012 More... 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 04/28/2017 MDS (myelodysplastic syndrome), low grade (HCC)*12/13/2015 Polyneuropathy in other diseases classified els*05/08/2016 Chronic GERD [K21.9] 05/08/2016 Idiopathic aplastic anemia (HCC) [D61.3] 08/11/2017 Cough [R05] 05/22/2018 Swelling of limb [M79.89] 05/22/2018 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 (HCC) [C88.0] 08/21/2018 History of transfusion [Z92.89] 12/24/2018 Prescriptions ordered this encounter Disp Refills Start End OMEPRAZOLE 20 MG CAPSULE,DELAYED REL* 180 * 0 03/10/2020 Route: ORAL Sig: Take 2 capsules by mouth once daily. Medications Discontinued During This Encounter omeprazole (PRILOSEC) 20 mg capsule 180 * 0 12/16/2019 0 Route: ORAL Sig: Take 2 capsules by mouth once daily. Disc: Reason for discontinue is not on file. Encounter Status:Closed by STEVEN AKERS DO on 03/10/20 cbc on 2020-02-22 Absolute nRBC 0.02 <0.01 k/uL High 02-22-2020 [facility] ([id number]) Erythrocyte distribution 23.3 11.5-15.0 % High 02-21 [facility] width (RBC) [Ratio] [place] () Hematocrit (Bld) [Volume 26.5 39.0-51.0 % Low 02-21 [facility] fraction] [facility] () Hemoglobin (Bld) 8.8 13.0-17.0 g/dL Low 02-22-2020 [facility] [Mass/Vol] [place] ([id number]) MCH (RBC) [Entitic mass] 35.9 26.0-34.0 pG High 02-21 [facility] ([id number]) MCHC (RBC) [Mass/Vol] 33.2 30.5-36.0 g/dL Normal 02-22-20 20 [facility] ([id number]) MCV (RBC) [Entitic vol] 108.2 80.0-100.0 fL High 02-21 [facility] ([id number]) Platelet mean volume 9.9 9.0-12.7 fL Normal 0 [facility] (Bld) [Entitic vol] [place] ([id number]) Platelets (Bld) [#/Vol] 301 150-400 k/uL Normal 2019 [facility] ([id number]) RBC (Bld) [#/Vol] 2.45 4.20-6.00 m/uL Low 02-22-2020 [facility] ([id number]) WBC (Bld) [#/Vol] 5.21 3.70-11.00 k/uL Normal 02-22-2020 [facility] ([id number]) obsolete on 2020-02 OBSOLETE Refill (FAMPWS) Normal 02-15-2020 [facility] LORETA HURST ([id number]) 1945 [facility] Date Time Provider Department ([id number]) 02/15/20 CARTER) AVNI During your visit today, we recorded the following informati on about you: Florecita Preston Pss 02/15/2020 11:25 AM Signed Patient has been identified by name and date of : Yes Last office visit in this department: 11/18/2019 RX INSTRUCTIONS: Patient aware RX will be sent to pharmacy. No need to notify patient. Patient phones requesting refills as follows: Pending Prescriptions Disp Refills MONTELUKAST 10 MG TABLET 90 tablet 3 Sig: Take 1 tablet by mouth daily at bedtime. DARIAN: No Please review and advise. Florecita Preston Pss Allergies As of Date: 02/15/2020 Noted Allergy Reaction ADVAIR DISKUS (FLUTICASONE PROPIO*03/15/2011 14 - Other: See Comments Comments: oral yeast infection antibiotics [Other] 03/15/2011 14 - Other: See Comments Comments: Anything in Levaquin family BACTRIM (SULFAMETHOXAZOLE) 01/20/2013 8 - GI Upset PAXIL (PAROXETINE HCL) 11/07/2017 14 - Other: See Comments Comments: Mouth sores, sore throat, salivating constantly, t in taste in his mouth Date Reviewed: 12/16/2019 Reviewed by: Caity Moya - Fully Assessed Reason for Visit: Refill Request [94] Order(s):montelukast (SINGULAIR) 10 mg tabletTake 1 ta blet by mouth daily at bedtime.Disp: 90 tabletRfl: 3 Prescriptions as of 02/15/2020 Sig: MONTELUKAST 10 MG TABLET Take 1 tablet by mouth daily * OMEPRAZOLE 20 MG CAPSULE,PORTER* Take 2 capsules by mouth once * GABAPENTIN 300 MG CAPSULE Take 1 capsule by mouth three* ALBUTEROL SULFATE HFA 90 MCG/* Inhale 2 Puffs as instructed * COMPOUNDED PRESCRIPTION Compression stockings 30-40mm* PYRIDOXINE (VITAMIN B6) 100 M* Take 100 mg by mouth twice da * CHOLECALCIFEROL (VITAMIN D3) * Take 5,000 Units by mouth onc * ACETAMINOPHEN 500 MG TABLET Take 1,000 mg by mouth as nee* OMEGA-3 FATTY ACIDS 1,000 MG * Take 2 capsules by mouth twic * IBUPROFEN 400 MG TABLET Take 400 mg by mouth as neede* Problem List As Of Date 02/15/2020 Noted Resolved Diverticulosis [K57.90] 01/23/2012 Family history of malignant neoplasm of gastroi*01/23/2012 More... 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 04/28/2017 MDS (myelodysplastic syndrome), low grade (HCC)*12/13/2015 Polyneuropathy in other diseases classified els*05/08/2016 Chronic GERD [K21.9] 05/08/2016 Idiopathic aplastic anemia (HCC) [D61.3] 08/11/2017 Cough [R05] 05/22/2018 Swelling of limb [M79.89] 05/22/2018 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 (HCC) [C88.0] 08/21/2018 History of transfusion [Z92.89] 12/24/2018 Prescriptions ordered this encounter Disp Refills Start End MONTELUKAST 10 MG TABLET 90 t* 3 02/16/2020 Route: ORAL Sig: Take 1 tablet by mouth daily at bedtime. Medications Discontinued During This Encounter montelukast (SINGULAIR) 10 mg tablet 90 t* 3 07/02/2019 020 Class: [employer] Route: ORAL Sig: Take 1 tablet by mouth daily at bedtime. Disc: Reason for discontinue is not on file. Encounter Status:Closed by SHAHEED SHUKLA MD on 02/16/20 ruthann on 2020-01-20 CNPN Telephone (DEMI) Normal 01-20-2020 [facility] LORETA HURST ([id number]) 1945 [facility] Date Time Provider Department ([id number]) 01/20/20 STEVEN AKERS During your visit today, we recorded the following informati on about you: Margot Kenny PINA 01/20/2020 11:52 AM Signed Patient scheduled for 1 unit PRBC's 01/21/2020 @ [facility], [facility]. Orders faxed. Patient and lab aware. Margot Kenny PINA Allergies As of Date: 01/20/2020 Noted Allergy Reaction ADVAIR DISKUS (FLUTICASONE PROPIO*03/15/2011 14 - Other: See Comments Comments: oral yeast infection antibiotics [Other] 03/15/2011 14 - Other: See Comments Comments: Anything in Levaquin family BACTRIM (SULFAMETHOXAZOLE) 01/20/2013 8 - GI Upset PAXIL (PAROXETINE HCL) 11/07/2017 14 - Other: See Comments Comments: Mouth sores, sore throat, salivating constantly, t in taste in his mouth Date Reviewed: 12/16/2019 Reviewed by: Caity Moya - Fully Assessed Reason for Visit: Transfusion [880] Prescriptions as of 01/20/2020 Sig: OMEPRAZOLE 20 MG CAPSULE,PORTER* Take 2 capsules by mouth once * GABAPENTIN 300 MG CAPSULE Take 1 capsule by mouth three* MONTELUKAST 10 MG TABLET Take 1 tablet by mouth daily * ALBUTEROL SULFATE HFA 90 MCG/* Inhale 2 Puffs as instructed * COMPOUNDED PRESCRIPTION Compression stockings 30-40mm* PYRIDOXINE (VITAMIN B6) 100 M* Take 100 mg by mouth twice da * CHOLECALCIFEROL (VITAMIN D3) * Take 5,000 Units by mouth onc * ACETAMINOPHEN 500 MG TABLET Take 1,000 mg by mouth as nee* OMEGA-3 FATTY ACIDS 1,000 MG * Take 2 capsules by mouth twic * IBUPROFEN 400 MG TABLET Take 400 mg by mouth as neede* Problem List As Of Date 01/20/2020 Noted Resolved Diverticulosis [K57.90] 01/23/2012 Family history of malignant neoplasm of gastroi*01/23/2012 More... 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 04/28/2017 MDS (myelodysplastic syndrome), low grade (HCC)*12/13/2015 Polyneuropathy in other diseases classified els*05/08/2016 Chronic GERD [K21.9] 05/08/2016 Idiopathic aplastic anemia (HCC) [D61.3] 08/11/2017 Cough [R05] 05/22/2018 Swelling of limb [M79.89] 05/22/2018 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 (HCC) [C88.0] 08/21/2018 History of transfusion [Z92.89] 12/24/2018 Encounter Status:Closed by MARGOT DE LA ROSA LPN on 01/20/20 cbc on 2020-01-20 Absolute nRBC <0.01 <0.01 Normal 01-20-2020 [facility] ([id number]) Erythrocyte distribution 21.3 11.5-15.0 % High 01-19 [facility] width (RBC) [Ratio] [place] ([id number]) Hematocrit (Bld) [Volume 27.9 39.0-51.0 % Low 01-19 [facility] fraction] [place] ([id number]) Hemoglobin (Bld) 9.3 13.0-17.0 g/dL Low 01-20-2020 [facility] [Mass/Vol] [place] ([id number]) MCH (RBC) [Entitic mass] 34.6 26.0-34.0 pG High 01-19 [facility] ([id number]) MCHC (RBC) [Mass/Vol] 33.3 30.5-36.0 g/dL Normal 01-20-20 20 [facility] ([id number]) MCV (RBC) [Entitic vol] 103.7 80.0-100.0 fL High 01-19 [facility] ([id number]) Platelet mean volume 10.3 9.0-12.7 fL Normal 0 [facility] (Bld) [Entitic vol] [place] ([id number]) Platelets (Bld) [#/Vol] 308 150-400 k/uL Normal 2019 [facility] ([id number]) RBC (Bld) [#/Vol] 2.69 4.20-6.00 m/uL Low 01-20-2020 [facility] ([id number]) WBC (Bld) [#/Vol] 4.92 3.70-11.00 k/uL Normal 01-20-2020 [facility] ([id number]) cbc on 2019-12-30 Absolute nRBC <0.01 <0.01 Normal 12-30-2019 [facility] ([id number]) Erythrocyte distribution 21.7 11.5-15.0 % High 12-30 [facility] width (RBC) [Ratio] [place] ([id number]) Hematocrit (Bld) [Volume 28.2 39.0-51.0 % Low 12-30 [facility] fraction] [place] ([id number]) Hemoglobin (Bld) 9.5 13.0-17.0 g/dL Low 12-30-2019 [facility] [Mass/Vol] [place] ([id number]) MCH (RBC) [Entitic mass] 34.9 26.0-34.0 pG High 12-30 [facility] ([id number]) MCHC (RBC) [Mass/Vol] 33.7 30.5-36.0 g/dL Normal 12-30-19 20 [facility] ([id number]) MCV (RBC) [Entitic vol] 103.7 80.0-100.0 fL High 12-30 [facility] ([id number]) Platelet mean volume 10.0 9.0-12.7 fL Normal 0 [facility] (Bld) [Entitic vol] [place] ([id number]) Platelets (Bld) [#/Vol] 286 150-400 k/uL Normal 2019 [facility] ([id number]) RBC (Bld) [#/Vol] 2.72 4.20-6.00 m/uL Low 12-30-2019 [facility] ([id number]) WBC (Bld) [#/Vol] 4.13 3.70-11.00 k/uL Normal 12-30-2019 [facility] ([id number]) progress on 2019-12 PROGRESS HNO ID: [id number] Normal 12-16-2019 [place] Author: Steven Akers [facility] Service: ? 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 3) Macrocytic anemia. 5) Sensory neuropathy. HPI: The patient is a 74 yo male with an unremarkable PMH wh o was evaluated 06/29/2015 for c/o sore throat, malaise and low gra de fever that had been going on for about 2 weeks. Was found to have macro cytic anemia and elevated serum iron and ferritin. Stool hemoccult negati ve. 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 Declined therapy with rituximab. Current therapy: 1) Periodic RBC transfusion. Presents for ongoing oncologic management. Interim history: He has been contacting me when he feels need for transfusion . He feel significantly better afterwards. When he gets symptomatic he gets very run down and fatigued and is not able to do a lot of tasks aroun d the house that he would like to do. He also gets a pumping sensation i n the head and this is particularly bothersome. He doesn't get dyspneic how ever. No chest pain. Neuropathy stable--numbness limited to toes and balls of fee t. PMH, medications and allergies as below personally reviewed by me today. Any changes documented in appropriate section. ROS: Constitutional: No episode of fever, shaking chill and night sweats. Appetite is normal. Neuro: Denies vertigo and imbalance. HEENT: No recent change in voice, vision. Resp: Denies cough, wheeze and hemoptysis. CVS: See above. GI: No dysphagia or odynophagia. No nausea or vomiting. Faby ls are working normally. Has occasional diarrhea. Endo: No hot flashes. Musculoskeletal: Denies bone, back, joint and muscular pain. Derm: No rash. Heme: No unusual bleeding or bruising. Psych: Normal mood. PHYSICAL EXAM: Vitals: Blood pressure 133/61, pulse 69, temperature 36.6 ?C (97.8 ?F), temperature source Temporal, weight 82.8 kg (182 lb 8 oz). Well-appearing and in no acute distress. EYES: Sclerae are anicteric bilaterally. NECK: Supple. LYMPHATIC: There is no palpable cervical or supraclavicular adenopathy. RESPIRATORY: Inspiratory breath sounds are of normal intensi ty in all ariza. No rales, wheezes or rhonchi. CARDIOVASCULAR: Rhythm is regular. Normal intensity S1/S2. ABDOMEN: The abdomen is nondistended. Extremities: No swelling. Has compression stockings on. SKIN: No jaundice or rash. No petechiae. NEUROLOGIC: equine breeder II-XII are grossly intact. No focal motor we akness. 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 - HYPERCELLULAR MARROW (75%) WITH TRILINEAGE HEMATOPOIESIS. - ADEQUATE MEGAKARYOCYTES. - MARKEDLY INCREASED STAINABLE IRON WITH INCREASED RING SIDE ROBLASTS (86%). - NO EVIDENCE OF PERSISTENT/RECURRENT LYMPHOPROLIFERATIVE DI SORDER (SEE COMMENT). Comment: There is a macrocytic anemia associated with finn us ring sideroblasts in the marrow. Blasts are not increased and dys plastic features are not noted in other lineages. These findings are consistent with a myelodysplastic syndrome, best classified as myelodys plastic syndrome with ring sideroblasts and single lineage (erythroi d) dysplasia. Flow cytometry of the marrow aspirate was performed to rule out lymphoproliferative disorder and showed no evidence of an ab normal T- or B-lymphocyte population. Molecular analysis by next generation sequencing may be help ful to determine if SF3B1 mutation associated with MDS-RS and other mutations may be present. Please correlate with cytogenetic studies for ad ditional diagnostic and prognostic information. PERIPHERAL BLOOD: CBC (09/02/18): WBC 5.56 k/uL; Hgb 11 g/dL; MCV 106.1 fL; RD W 19.6%; Plts 324 k/uL. Differential (%): Neuts 65; Lymphs 29; Monos 4; Eos 0; Baso 2. Morphology/Interpretation: There is a macrocytic anemia with out hypersegmented neutrophils. RBC's show anisocytosis and occa sional ovalocytes. BONE MARROW ASPIRATE ? ?Normal % ? ?(0-2) ? ? ?1% ? Blasts ? ?(1-5) ? ? ?1% ? Promyelocytes ? ?(32-72) ? 63% ? Myelos/Metas/Bands/Segs ? ?(1-6) ? ? ?3% ? Eosinophils ? ?(0-1) ? ? ?0% ? Basophils ? ?(0-4) ? ? ?0% ? Monocytes ? ?(13-37) ? 31% ? Erythroid precursors ? ?(7-23) ? ? 0% ? Lymphocytes ? ?(0-2) ? ? ?1% ? Plasma cells ? ?Myeloid/Erythro (1.5-4): 2.19 ? Cells counted: 500 ?Iron stain result: Markedly increased with numerous ring sideroblasts (86% of NRBCs). ? ?Specimen Quality: Spicular, cellular. ? ?Megakaryocytes: Increased with normal morphology. ? ?Erythropoiesis: Dyserythropoiesis with megaloblastoid fea tures, basophilic stippling and irregular hemoglobinization. ? ?Granulopoiesis: Normal maturation. ? ?Other: Blasts are not increased. BONE MARROW BIOPSY: Adequacy: Adequate. Cellularity: Increased (75%). ME ratio: Decreased. Hematopoiesis: Erythroid hyperplasia. Megakaryocytes: Adequate to slightly increased. Megakaryocyte morphology: Normal. Lymphoid infiltrate: None present. Bone trabeculae: Normal. CLOT SECTION: Marrow particles: Many. Morphology: Similar to biopsy with small lipogranuloma. ANCILLARY TESTS: Flow cytometry: Performed. Cytogenetics: Pending. FISH: N/A Molecular: Buffy coat stored. Laboratory Developed Test (LDT) Disclaimer: Positive and negative controls stain appropriately. Performa nce characteristics of immunohistochemical, immunofluorescent an d chromogenic in-situ hybridization tests have been determined by [facility] ([facility] in a manner consistent with CLIA requirements. One or more of t hese tests have not been cleared or approved by the FDA. [facility] is regulate d under CLIA as qualified to perform high-complexity testing. These tests ar e used for clinical purposes. They should not be regarded as investigat ional or for research. ? ? KT/zainab/09/04/18 ? ? Jose C Reis M.D. (Electronic Signature) SPECIMEN SUBMITTED A: BONE MARROW, ?ASPIRATE RPIC B: BONE MARROW, BIOPSY RPIC C: BONE MARROW, CLOT RPIC ADDITIONAL PROCEDURE(S) CYTOGENETICS ? Date Ordered: ?09/02/2018 ? ? ? Date Reported: ?09/17/2018 Procedure Results and Interpretation Lab Analysis No: [id number] DIAGNOSIS: 46,XY[20] INTERPRETATION: Normal, male karyotype COMMENT: Ten metaphase cells were analyzed from the culture supplemented with GM-CSF and ten metaphase cells were analyzed from the 2 4 hour unstimulated culture. Twenty cells analyzed showed a 46,XY k aryotype or had random chromosomal loss, attributed to culture artifact. The re was no significant numerical chromosome abnormality and no structur al change detected within the limits of resolution. The previous analysis in August 2015 also showed a normal k aryotype. Clinical and pathologic correlation is recommended. Seater Assembler Interpretation: Qian Anderson, Ph.D., F.A.C.M. G. Pathologist Interpretation: ?Mateo Rosales M.D., Ph.D. Morphologic/Cytogenetic Correlation: There is no change in t he diagnosis. As Reviewed By: Jose C Reis MD Procedure Pathologist: Martha Sales M.D./OLGA FLOW CYTOMETRY - BONE MARROW LOW GRADE LEUK MARKERS ? Date Ordered: ?09/04/2018 ? ? ? Date Reported: ?09/04/2018 Procedure Results and Interpretation Specimen type: Bone Marrow Aspirate. CBC, differential and morphology comments: Please see bone m arrow report [id number]. Viability: 99%. ? ? Results: Marker ? Normal Cell ? ? ? Result (Lymphocytes) ? ?Type __ CD2 ?T/NK cells ? ? ?Normal pattern CD3 ?T-cells ? Normal pattern CD4 ?T-cell subset ? Normal pattern CD5 ?T-cells ? Normal pattern CD7 ?T/NK-cells ? ? ?Normal pattern CD8 ?T-cell subset ? Normal pattern CD10 ? B-cell subset ? Normal pattern CD13 ? Myeloid ? Normal pattern CD16/56 ?T/NK cell ? ? ? Normal pattern CD19 ? B-cell ?Normal pattern CD20 ? B-cell ?Normal pattern CD23 ? B-cell subset ? Normal pattern CD45 ? Simons-leukocyte ? Normal pattern CD79b ?B-cell ?Normal pattern CD123 ?Dendritic ? ? ? Normal pattern FMC7 ? B-cells ? Normal pattern kappa/lambda ? ? B-cells ? Polytypic Interpretation: Flow cytometric analysis of the bone marrow aspirate reveals that 11% of total events have the CD45 and side scatter properties of ly mphocytes. The lymphocytes are composed of a mixture of heterogenous T-cell s (72%; CD4:CD8 ratio = 1.46), NK cells (19%) and polytypic B-cells (12%). ? Final Impression: There is no immunophenotypic evidence of involvement by a lymphoproliferative disorder. Correlation with the clinical findings is suggested. ANALYTE SPECIFIC REAGENT (ASR) DISCLAIMER This test was developed and its performance characteristics determined by [facility] [place] ([facility]). It has not been cleared or approved by the FDA. [facility] is regulated under CLIA as qualified to perform high -complexity testing. This test is used for clinical purposes. It should not be regarded as investigational or for research. ASSESSMENT/PLAN: (D46.20) MDS (myelodysplastic syndrome), low grade (HCC) (D53.9) Macrocytic anemia Assessment: -RARS. -IPSS=0 Low risk. -IPSS-R=2 Low risk. 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 -He developed secondary hypertension and left-sided tinnitus with Aranesp. -Discussed treatment options including supportive care with transfusion when indicated or treatment with azacitadine. -Again discussed various therapies including the [id number] tr ial--he is willing to consider when he would more clearly needs definit naila treatment, i.e. increasing frequency of transfusion requirement. -He prefers periodic transfusion. Plan: -Continue supportive care for now. -Changed to scheduled CBC/possible transfusion every 2 weeks . Him to maintain hemoglobin above 9-9.5 as that is when he feels bes t. -Office visit with lab work in 6 months. -Monitor iron. 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 -Had CD5 negative low-grade lymphoproliferative disorder xavier ntified by flow cytometry only on the bone marrow aspirate. The clonal cells were lambda light chain restricted. -Patient has polyneuropathy. Previous MAG antibody testing n egative. -Over time, still nothing to suggest amyloidosis--ie, neurop athy rather limited stable for several years and has only very occasiona l and sporadic diarrhea. Echo 05/2018 was normal. -Serum monoclonal protein stable. -No evidence of the monoclonal lymphocyte population a most recent bone marrow biopsy. Plan: -Will continue to monitor every 6 months. Steven Akers, DO comp metabolic panel on 2019-12-16 Albumin [Mass/Vol] 4.4 3.9-4.9 g/dL Normal 12-16-2019 [facility] ([id number]) ALP [Catalytic 59 38-113 U/L Normal 12-16-2019 [facility] activity/Vol] [place] and (55095) ALT [Catalytic 22 10-54 U/L Normal 12-16-2019 [facility] activity/Vol] [place] and (00293) Anion gap 9 9-18 mmol/L Normal 12-16-2019 [facility][id number] AST [Catalytic 20 14-40 U/L Normal 12-16-2019 [facility] activity/Vol] [facility] and (06493) Bilirubin [Mass/Vol] 1.3 0.2-1.3 mg/dL Normal 0 [facility] (06084) Calcium [Mass/Vol] 9.2 8.5-10.2 mg/dL Normal 12-16-2019 [facility] ([id number]) Chloride [Moles/Vol] 105 97-105 mmol/L Normal 0 [facility] ([id number]) CO2 [Moles/Vol] 27 22-30 mmol/L Normal 12-16-2019 [facility] ([id number]) Creatinine 0.79 0.73-1.22 mg/dL Normal 12-16-2019 [facility] [Mass/Vol] [place] ([id number]) eGFR- Amer. >60 Normal 12-16-2019 [facility] ([id number]) GFR/1.73 sq M >60 mL/min/{1.73_m Normal 12-16-2019 [facility] predicted among 2} [facility] ([id number]) non-blacks MDRD (S/P/Bld) [Vol rate/Area] Comment: Result Comment: eGFR (Estima zackery GFR) Units of measure: mL/min/1.73 meters squared eGFR is derived from the ree xpressed MDRD Study equation using the following parameters: serum creatinine, age, gender and race. The creatinine assay has been calibrated to be traceable to IDMS. An eGFR <60 mL/min/1.73m2 fo r >3 months is consistent with chronic kidney disease. Refer to KDOQI guidelines for clinical interpretation. In patients with unstable re nal function, e.g. those with acute kidney injury, the eGFR may not accurately reflect actual GFR. Glucose [Mass/Vol] 118 74-99 mg/dL High 12-16-2019 [facility] ([id number]) Comment: Result Comment: The [place] Diabetes Association (ADA) provides guidance for cutoff values for fasting glucose and random glucose. The ADA defines fasting as no caloric intake for at least 8 hours. Fas ting plasma glucose results between 100 to 125 mg/dL indicate increased risk for diabetes (prediabetes). Fasting plasma glucose resul ts greater than or equal to 126 mg/dL meet the criteria for diagnosis of diabetes. In the absence of unequivocal hyperglycemia, results should be confirmed by repeat testing. In a patient with classic s ymptoms of hyperglycemia or hyperglycemic crisis, random plasma glucose results greater than or equal to 200 mg/dL meet the criteria for diagnosis of diabetes. Reference: Standards of [facility] Care in Diabetes 2016, [place] Diabetes Association. Diabetes Care. 2016.39(Suppl 1). Potassium [Moles/Vol] 3.9 3.7-5.1 mmol/L Normal 12-16-19 [facility] ([id number]) Protein [Mass/Vol] 6.5 6.3-8.0 g/dL Normal 12-16-2019 [facility] ([id number]) Sodium [Moles/Vol] 141 136-144 mmol/L Normal 12-16-2019 [facility] ([id number]) Urea nitrogen [Mass/Vol] 12 9-24 mg/dL Normal 12-16 [facility] ([id number]) cnovsp on 6 CNOVSP Visit (SP) Office (DEMI) Normal [facility] LORETA HURST ([id number]) 1945 [facility] Date Time Provider Department ([id number]) 12/16/19 9:50 AM STEVEN AKERS During your visit today, we recorded the following informati on about you: Temperature Pulse Blood pressure Weight 97.8 degrees 69/minute 133/61 82.8 kg Steven Akers DO 12/16/2019 10:43 AM Signed Diagnosis: 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 3) Macrocytic anemia. 5) Sensory neuropathy. HPI: The patient is a 74 yo male with an unremarkable PMH who was evaluated 06/29/2015 for c/o sore throat, malaise a nd low grade fever that had been going on for about 2 weeks. Was found to have macrocytic ane beka and elevated serum iron and ferritin. Stool hemoccult negative. 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 Declined therapy with rituximab. Current therapy: 1) Periodic RBC transfusion. Presents for ongoing oncologic management. Interim history: He has been contacting me when he feels need for transfusion . He feel significantly better afterwa rds. When he gets symptomatic he gets very run down and fatigued and is not able to do a lot of tasks around the house that he would like to do. He also gets a pumping sensation in the he ad and this is particularly bothersome. He doesn't get dyspneic however. No chest pain. Neuropathy stable--numbness limited to toes and balls of fee t. PMH, medications and allergies as below personally rev iewed by me today. Any changes documented in appropriate section. ROS: Constitutional: No episode of fever, shaking chi ll and night sweats. Appetite is normal. Neuro: Denies vertigo and imbalance. HEENT: No recent change in voice, vision. Resp: Denies cough, wheeze and hemoptysis. CVS: See above. GI: No dysphagia or odynophagia. No nausea or vomiting. Faby ls are working normally. Has occasional diarrhea. Endo: No hot flashes. Musculoskeletal: Denies bone, back, joint and muscular pain. Derm: No rash. Heme: No unusual bleeding or bruising. Psych: Normal mood. PHYSICAL EXAM: Vitals: Blood pressure 133/61, pulse 69, temperature 36.6 ?C (97.8 ?F), temperature source Temporal, weight 82.8 kg (182 lb 8 oz). Well-appearing and in no acute distress. EYES: Sclerae are anicteric bilaterally. NECK: Supple. LYMPHATIC: There is no palpable cervical or supraclavicular adenopathy. RESPIRATORY: Inspiratory breath sounds are of no rmal intensity in all ariza. No rales, wheezes or rhonchi. CARDIOVASCULAR: Rhythm is regular. Normal intensity S1/S2. ABDOMEN: The abdomen is nondistended. Extremities: No swelling. Has compression stockings on. SKIN: No jaundice or rash. No petechiae. NEUROLOGIC: equine breeder II-XII are grossly intact. No focal motor we akness. 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 - HYPERCELLULAR MARROW (75%) WITH TRILINEAGE HEMATOPOIESIS. - ADEQUATE MEGAKARYOCYTES. - MARKEDLY INCREASED STAINABLE IRON WITH INCREASED RING SI DEROBLASTS (86%). - NO EVIDENCE OF PERSISTENT/RECURRENT LYMPHOPROLIFERATIVE DI SORDER (SEE COMMENT). Comment: There is a macrocytic anemia associated with finn us ring sideroblasts in the marrow. Blasts are not increased and dys plastic features are not noted in other lineages. These findings are consistent with a myelodysplastic syndrome, best classified as myelodys plastic syndrome with ring sideroblasts and single lineage (erythroi d) dysplasia. Flow cytometry of the marrow aspirate was performed to rule out lymphoproliferative disorder and showed no evidence of an ab normal T- or B-lymphocyte population. Molecular analysis by next g eneration sequencing may be helpful to determine if SF3B1 mutation associated with MDS-RS and other mutations ma y be present. Please correlate with cytogenetic studies for additional diagnostic and prognostic information. PERIPHERAL BLOOD: CBC (09/02/18): WBC 5.56 k/uL; Hgb 11 g/dL; MCV 106.1 fL; RD W 19.6%; Plts 324 k/uL. Differential (%): Neuts 65; Lymphs 29; Monos 4; Eos 0; Baso 2. Morphology/Interpretation: There is a ma crocytic anemia without hypersegmented neutrophils. RBC's show anisocytosis and occasional ovalocyt es. BONE MARROW ASPIRATE ? ?Normal % ? ?(0-2) ? ? ?1% ? Blasts ? ?(1-5) ? ? ?1% ? Promyelocytes ? ?(32-72) ? 63% ? Myelos/Metas/Bands/Segs ? ?(1-6) ? ? ?3% ? Eosinophils ? ?(0-1) ? ? ?0% ? Basophils ? ?(0-4) ? ? ?0% ? Monocytes ? ?(13-37) ? 31% ? Erythroid precursors ? ?(7-23) ? ? 0% ? Lymphocytes ? ?(0-2) ? ? ?1% ? Plasma cells ? ?Myeloid/Erythro (1.5-4): 2.19 ? Cells counted: 500 ?Iron stain result: Markedly increased with nu merous ring sideroblasts (86% of NRBCs). ? ?Specimen Quality: Spicular, cellular. ? ?Megakaryocytes: Increased with normal morphology. ? ?Erythropoiesis: Dyserythropoiesis with megaloblastoid fea tures, basophilic stippling and irregular hemoglobinization. ? ?Granulopoiesis: Normal maturation. ? ?Other: Blasts are not increased. BONE MARROW BIOPSY: Adequacy: Adequate. Cellularity: Increased (75%). ME ratio: Decreased. Hematopoiesis: Erythroid hyperplasia. Megakaryocytes: Adequate to slightly increased. Megakaryocyte morphology: Normal. Lymphoid infiltrate: None present. Bone trabeculae: Normal. CLOT SECTION: Marrow particles: Many. Morphology: Similar to biopsy with small lipogranuloma. ANCILLARY TESTS: Flow cytometry: Performed. Cytogenetics: Pending. FISH: N/A Molecular: Buffy coat stored. Laboratory Developed Test (LDT) Disclaimer: Positive and negative controls stain appropriately. Performa nce characteristics of immunohistochemical, immunofluorescent an d chromogenic in-situ hybridization tests have been determined by [facility] ([facility]) in a manner consistent with CLIA requirements. One or more of these tests have not been cleared or approved by the FDA. [facility] is regula zackery under CLIA as qualified to perform high-complexity testing. These tests ar e used for clinical purposes. They should not be regarded as investigat ional or for research. ? ? KT/zainab/09/04/18 ? ? Jose C Reis M.D. (Electronic Signature) SPECIMEN SUBMITTED A: BONE MARROW, ?ASPIRATE RPIC B: BONE MARROW, BIOPSY RPIC C: BONE MARROW, CLOT RPIC ADDITIONAL PROCEDURE(S) CYTOGENETICS ? Date Ordered: ?09/02/2018 ? ? ? Date Reported: ?09/17/2018 Procedure Results and Interpretation Lab Analysis No: [id number] DIAGNOSIS: 46,XY[20] INTERPRETATION: Normal, male karyotype COMMENT: Ten metaphase cells were analyzed from the culture supplemented with GM-CSF and ten metaphase cells were analyzed from the 2 4 hour unstimulated culture. Twenty cells analyzed showed a 46,XY karyotype or had random chromosomal loss, attributed to culture artifact. The re was no significant numerical chromosome abnormality and no structur al change detected within the limits of resolution. The previous analysis in August 2015 also showed a normal k aryotype. Clinical and pathologic correlation is recommended. Seater Assembler Interpretation: Qian Anderson, Ph.D., .A.C.M. G. Pathologist Interpretation: ?Mateo Rosales M.D., Ph.D. Morphologic/Cytogenetic Correlation: There is no change in t he diagnosis. As Reviewed By: Jose C Reis MD Procedure Pathologist: Martha Sales M.D./OLGA FLOW CYTOMETRY - BONE MARROW LOW GRADE LEUK MARKERS ? Date Ordered: ?09/04/2018 ? ? ? Date Reported: ?09/04/2018 Procedure Results and Interpretation Specimen type: Bone Marrow Aspirate. CBC, differential and morphology comments: Please see bone m arrow report [id number]. Viability: 99%. ? ? Results: Marker ? Normal Cell ? ? ? Result (Lymphocytes) ? ?Type __ CD2 ?T/NK cells ? ? ?Normal pattern CD3 ?T-cells ? Normal pattern CD4 ?T-cell subset ? Normal pattern CD5 ?T-cells ? Normal pattern CD7 ?T/NK-cells ? ? ?Normal pattern CD8 ?T-cell subset ? Normal pattern CD10 ? B-cell subset ? Normal pattern CD13 ? Myeloid ? Normal pattern CD16/56 ?T/NK cell ? ? ? Normal pattern CD19 ? B-cell ?Normal pattern CD20 ? B-cell ?Normal pattern CD23 ? B-cell subset ? Normal pattern CD45 ? Simons-leukocyte ? Normal pattern CD79b ?B-cell ?Normal pattern CD123 ?Dendritic ? ? ? Normal pattern FMC7 ? B-cells ? Normal pattern kappa/lambda ? ? B-cells ? Polytypic Interpretation: Flow cytometric analysis of the bone marrow aspirate reveals that 11% of total events have the CD45 and side scatter properties of ly mphocytes. The lymphocytes are composed of a mixture of heterogenous T-ce lls (72%; CD4:CD8 ratio = 1.46), NK cells (19%) and polytypic B-cells (12%). ? Final Impression: There is no immunophenotypic evidence of involve ment by a lymphoproliferative disorder. Correlation with the clinical findings is suggeste d. ANALYTE SPECIFIC REAGENT (ASR) DISCLAIMER This test was developed and its performance characteristics determined by [facility] [place] ([facility]). It has not been cleared or approved by the FDA. [facility] is regulated under CLIA as qualified to perform high -complexity testing. This test is used for clinical purposes. It shoul d not be regarded as investigational or for research. ASSESSMENT/PLAN: (D46.20) MDS (myelodysplastic syndrome), low grade (HCC) (D53.9) Macrocytic anemia Assessment: -RARS. -IPSS=0 Low risk. -IPSS-R=2 Low risk. 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 -He developed secondary hypertension and left-sided tinnitus with Aranesp. -Discussed treatment options including supportive care with transfusion when indicated or treatment with azacitadine. -Again discussed various therapies inclu ding the [id number] trial--he is willing to consider when he would more clearly needs definitive joe tment, i.e. increasing frequency of transfusion requirement. -He prefers periodic transfusion. Plan: -Continue supportive care for now. -Changed to scheduled CBC/possible transfusion e very 2 weeks. Him to maintain hemoglobin above 9-9.5 as that is when he feels best. -Office visit with lab work in 6 months. -Monitor iron. 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 -Had CD5 negative low-grade lymphoproliferative disorder i dentified by flow cytometry only on the bone marrow aspira te. The clonal cells were lambda light chain restricted. -Patient has polyneuropathy. Previous MAG antibody testing n egative. -Over time, still nothing to suggest amyloidosis--ie, neuropathy rather limited stable for several years and has only very occasional and sporadic diarrhea. Echo 05/2018 was normal. -Serum monoclonal protein stable. -No evidence of the monoclonal lymphocyt e population a most recent bone marrow biopsy. Plan: -Will continue to monitor every 6 months. Steven Akers DO Referring Provider: STEVEN AKERS [[id number]] Allergies As of Date: 12/16/2019 Noted Allergy Reaction ADVAIR DISKUS (FLUTICASONE PROPIO*03/15/2011 14 - Other: See Comments Comments: oral yeast infection antibiotics [Other] 03/15/2011 14 - Other: See Comments Comments: Anything in Levaquin family BACTRIM (SULFAMETHOXAZOLE) 01/20/2013 8 - GI Upset PAXIL (PAROXETINE HCL) 11/07/2017 14 - Other: See Comments Comments: Mouth sores, sore throat, salivating constantly, t in taste in his mouth Date Reviewed: 12/16/2019 Reviewed by: Caity Moya - Fully Assessed Reason for Visit: Established Patient [175] Primary Visit Diagnosis:MDS (myelodysplastic syndrome), low grade (HCC) [D46.20] Other Visit Diagnosis: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 (HCC) [ C88.0] Order(s):omeprazole (PRILOSEC) 20 mg capsuleTake 2 capsules by mouth once daily.Disp: 180 capsuleRfl: 0 Follow-up and Disposition History Recorded Prescriptions as of 12/16/2019 Sig: OMEPRAZOLE 20 MG CAPSULE,PORTER* Take 2 capsules by mouth once * GABAPENTIN 300 MG CAPSULE Take 1 capsule by mouth three* MONTELUKAST 10 MG TABLET Take 1 tablet by mouth daily * ALBUTEROL SULFATE HFA 90 MCG/* Inhale 2 Puffs as instructed * COMPOUNDED PRESCRIPTION Compression stockings 30-40mm* PYRIDOXINE (VITAMIN B6) 100 M* Take 100 mg by mouth twice da * CHOLECALCIFEROL (VITAMIN D3) * Take 5,000 Units by mouth onc * ACETAMINOPHEN 500 MG TABLET Take 1,000 mg by mouth as nee* OMEGA-3 FATTY ACIDS 1,000 MG * Take 2 capsules by mouth twic * IBUPROFEN 400 MG TABLET Take 400 mg by mouth as neede* Problem List As Of Date 12/16/2019 Noted Resolved Diverticulosis [K57.90] 01/23/2012 Family history of malignant neoplasm of gastroi*01/23/2012 More... 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 04/28/2017 MDS (myelodysplastic syndrome), low grade (HCC)*12/13/2015 Polyneuropathy in other diseases classified els*05/08/2016 Chronic GERD [K21.9] 05/08/2016 Idiopathic aplastic anemia (HCC) [D61.3] 08/11/2017 Cough [R05] 05/22/2018 Swelling of limb [M79.89] 05/22/2018 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 (HCC) [C88.0] 08/21/2018 History of transfusion [Z92.89] 12/24/2018 Encounter Status:Closed by STEVEN AKERS DO on 12/16/19 cbc and differential on 2019-12-16 Abs Baso 0.04 <0.11 k/uL Normal 12-16-2019 [facility] ([id number]) Abs Vance 0.32 <0.87 k/uL Normal 12-16-2019 [facility] ([id number]) Abs Neut 3.54 1.45-7.50 k/uL Normal 12-16-2019 [facility] ([id number]) Absolute nRBC <0.01 <0.01 Normal 12-16-2019 [facility] ([id number]) Basophils/100 WBC 0.8 % Normal 12-16-2019 [facility] (Bld) [place] ([id number]) DTYPE Auto Diff Normal 12-16-2019 [facility] ([id number]) Eosinophils (Bld) 0.07 <0.46 k/uL Normal 12-16-2019 [facility] [#/Vol] [place] ([id number]) Eosinophils/100 WBC 1.4 % Normal 12-16-2019 [facility] (Bld) [place] ([id number]) Erythrocyte 23.4 11.5-15.0 % High 12-16-2019 [facility] distribution width [facility] ([id number]) (RBC) [Ratio] Hematocrit (Bld) 28.2 39.0-51.0 % Low 12-16-2019 [facility] [Volume fraction] [facility] ([id number]) Hemoglobin (Bld) 9.4 13.0-17.0 g/dL Low 12-16-2019 [facility] [Mass/Vol] [place] ([id number]) Lymphocytes (Bld) 1.08 1.00-4.00 k/uL Normal 12-16-2019 [facility] [#/Vol] [place] ([id number]) Lymphocytes/100 WBC 21.3 % Normal 12-16-2019 [facility] (Bld) [place] ([id number]) MCH (RBC) [Entitic 34.7 26.0-34.0 pG High 12-16-2019 [facility] mass] [place] ([id number]) MCHC (RBC) 33.3 30.5-36.0 g/dL Normal 12-16-2019 [facility] [Mass/Vol] [place] ([id number]) MCV (RBC) [Entitic 104.1 80.0-100.0 fL High 12-16-2019 [facility] vol] [place] ([id number]) Monocytes/100 WBC 6.3 % Normal 12-16-2019 [facility] (Bld) [place] ([id number]) Neutrophils/100 WBC 70.2 % Normal 12-16-2019 [facility] (Bld) [place] ([id number]) NRBCs 0.0 0 /100 WBC Normal 12-16-2019 [facility] ([id number]) Platelet mean volume 11.2 9.0-12.7 fL Normal 0 [facility] (Bld) [Entitic vol] [place] ([id number]) Platelets (Bld) 306 150-400 k/uL Normal 12-16-2019 [facility] [#/Vol] [place] ([id number]) RBC (Bld) [#/Vol] 2.71 4.20-6.00 m/uL Low 12-16-2019 [facility] ([id number]) WBC (Bld) [#/Vol] 5.07 3.70-11.00 k/uL Normal 12-16-2019 [facility] ([id number]) cbc on 2019-12-02 Absolute nRBC <0.01 <0.01 Normal 12-02-2019 [facility] ([id number]) Erythrocyte distribution 23.8 11.5-15.0 % High 12-02 [facility] width (RBC) [Ratio] [place] ([id number]) Hematocrit (Bld) [Volume 25.9 39.0-51.0 % Low 12-02 [facility] fraction] [place] ([id number]) Hemoglobin (Bld) 8.5 13.0-17.0 g/dL Low 12-02-2019 [facility] [Mass/Vol] [place] ([id number]) MCH (RBC) [Entitic mass] 34.7 26.0-34.0 pG High 12-02 [facility] ([id number]) MCHC (RBC) [Mass/Vol] 32.8 30.5-36.0 g/dL Normal 12-02-19 20 [facility] ([id number]) MCV (RBC) [Entitic vol] 105.7 80.0-100.0 fL High 12-02 [facility] ([id number]) Platelet mean volume 10.6 9.0-12.7 fL Normal 0 [facility] (Bld) [Entitic vol] [place] ([id number]) Platelets (Bld) [#/Vol] 323 150-400 k/uL Normal 2019 [facility] ([id number]) RBC (Bld) [#/Vol] 2.45 4.20-6.00 m/uL Low 12-02-2019 [facility] ([id number]) WBC (Bld) [#/Vol] 4.86 3.70-11.00 k/uL Normal 12-02-2019 [facility] ([id number]) progress on 2019-11 PROGRESS HNO ID: [id number] Normal 11-18-2019 [place] Author: Sunday Rosen (Diaz) [facility] Service: ? [place] Author Type: Physician Concrete Finisher ([id number]) Type: Progress Notes Filed: 11/18/2019 6:47 PM Note Text: BP 130/54 Pulse 76 Temp 36.2 ?C (97.2 ?F) (Tympanic) R jair 20 Wt 81.2 kg (179 lb) BMI 26.97 kg/m? This Team Access Model visit is a walk in encounter. It requ ired patient-provider interaction for the medical decision making as documented below. 74 year old male with c/o low back radiating into both hips and center of low back. Once up and gets going no pain with walking. No foot pain other than numbness from neuropathy. Here because he was told to come to me for MDS pain manageme nt. Didn't feel physical therapy would help so he did not schedu le. Patient states that he seems to get worse with activity so I felt that more activity and physical therapy would make her more. Patient doesn't do much around the house at all: very inacti ve. Actually whenheismoreactivehispainseemsless. Pain centers around the mid low back area radiating into reshma ateral low back, into buttocks and upper thighs. No nocturnal waking although when he does wake up he notes b ack hurts. Denies any dysfunction with bowel or bladder function. Patient initially had good pain relief with at bedtime dose of gabapentin but seems to warn off. HISTORIES FAMILY HISTORY Problem Relation Age of Onset - None Father - Diabetes Mother - Heart Mother - Hypertension Mother - Colon Cancer Sister - other (uterine cancer) Sister - other (blood disorder) Sister - Breast Cancer Daughter PAST MEDICAL HISTORY Diagnosis Date - Anemia - Asthma - Benign neoplasm of colon - Benign neoplasm of rectum and anal canal - Heartburn - Seasonal allergies - Snoring PAST SURGICAL HISTORY Procedure Laterality Date - AXILLARY LYMPHADENECTOMY Left 1997 No BP or IV to left upper extremity - COLONOSCOP W/ OR W/O BRSH SPEC 2002 Colonoscopy - COLONOSCOP W/ OR W/O BRSH SPEC 05/01/2012 Colonoscopy - COLONOSCOP W/ OR W/O BRSH SPEC 04/30/2017 Colonoscopy - EGD W/O OR W/BRUSH/WASH 04/30/2017 EGD - KNEE SCOPE,DIAGNOSTIC 2004? Arthroscopy, right knee - LAP UMBILICAL HERNIA REPAIR 1997 - PAST SURGICAL HISTORY OF 1997 Lymphnodes AND fatty tumor removed left axilla - PAST SURGICAL HISTORY OF 1996 Fatty tumors removed from chest AND abdomen - VASECTOMY 1998 Social History Tobacco Use - Smoking status: Former Smoker Packs/day: 0.80 Years: 16.00 Pack years: 12.80 Types: Cigarettes Last attempt to quit: 11/09/1977 Years since quittin.0 - Smokeless tobacco: Never Used - Tobacco comment: Smoked from age [age]. Substance Use Topics - Alcohol use: No - Drug use: No ACTIVE PROBLEM LIST Diverticulosis Family History of Malignant Neoplasm of Gastrointestinal Tra ct Varicosity Benign Neoplasm of Colon Benign Neoplasm of Rectum and Anal Canal Macrocytic Anemia Elevated Ferritin Igm Lambda Monoclonal Gammopathy Mds (Myelodysplastic Syndrome), Low Grade (Hcc) Polyneuropathy in Other Diseases Classified Elsewhere (Hcc) Chronic Gerd Idiopathic Aplastic Anemia (Hcc) Cough Swelling of Limb Waldenstroms Macroglobulinemia (Hcc) History of Transfusion Current Outpatient Medications Medication Sig Dispense Refill - gabapentin (NEURONTIN) 300 mg capsule Take 1 capsule by mo uth daily at bedtime for 30 days. 30 capsule 1 - omeprazole (PRILOSEC) 20 mg capsule TAKE 2 CAPSULES BY GARRET ONCE DAILY. 180 capsule 0 - montelukast (SINGULAIR) 10 mg tablet Take 1 tablet by mout h daily at bedtime. 90 tablet 3 - albuterol HFA (VENTOLIN HFA) 90 mcg/actuation inhaler Inha le 2 Puffs as instructed every 4 hours as needed for Wheezing/Shortness of Breath. 1 Inhaler 2 - pyridoxine, vitamin B6, (VITAMIN B-6) 100 mg tablet Take 1 00 mg by mouth twice daily. - cholecalciferol (VITAMIN D-3) 5,000 unit tab Take 5,000 Un its by mouth once daily. - acetaminophen (TYLENOL EXTRA STRENGTH) 500 mg tablet Take 1,000 mg by mouth as needed. - omega-3 fatty acids (FISH OIL CONCENTRATE) 1,000 mg cap Ta ke 2 capsules by mouth twice daily. 360 capsule 3 - ibuprofen (MOTRIN) 400 mg tablet Take 400 mg by mouth as n eeded. - COMPOUNDED PRESCRIPTION Compression stockings 30-40mmHg 2 pairs Stasis edema of both lower extremities (primary encounter di agnosis) 1 Each 0 No current facility-administered medications for this visit. DTAP,TDAP,TD(1 - Tdap) due on 1955 EXAM: BP 130/54 Pulse 76 Temp 36.2 ?C (97.2 ?F) (Tympanic) R jair 20 Wt 81.2 kg (179 lb) BMI 26.97 kg/m? Pleasant adult man in no acute distress. Alert and oriented all spheres. Normal affect and cognition. Speech normal. No deficits to l earning or comprehension. Skin warm, dry, pink to lips and nailbeds. Normal turgor. Respirations regular and unlabored. HEENT WNL. TM's clear. Nose and oropharynx free from injecti on or lesion. No cervical lymph nodes. Thyroid non-tender, no masses Chest CTA. HRRR without murmur or gallop. Back is mildly kyphotic with posture. He is able to straight en somewhat. Midline back is nontender. He does have tenderness over bila teral lumbar paravertebral muscles. He has some spasm there. SI joints ar e open when he flexes forward, fingers to about upper calf. Extrem: no clubbing or cyanosis. Edema: none. Extremities ar e warm and pink with prompt capillary refill. no sensory loss. Straight leg raise is negative. No pain wit h internal/external rotation of hips. DTRs are 2 out of 4+ and symmetric bilaterally to knee jerk and Achilles. Patient is able walk on tiptoes although balance is poor. He has poor muscular development i n his lower legs bilaterally. OMT with permission: Myofascial release to tender trigger po ints in the lumbar area, hamstring stretching, muscle energy techniques and traction successful in improved pain significantly. Patient was able to stand and move without discomfort, was able to forward flexed ankles. ASSESSMENT/PLAN: 1. Chronic midline low back pain without sciatica - ICD9: 72 4.2, 338.29, ICD10: M54.5, G89.29 Chronic low back pain which I'm not sure how much has to do with his history of MDS. I suspect he has poor course strengthening a nd due to chronic fatigue poor aerobic fitness. Recommended he start physical therapy, patient plans to do s o closer to home in [place]. Follow-up as needed for OMT. We'll increase gabapentin to 300 mg progressively to 3 times a day. If this is not sufficient for pain management will work at [facility] ing him pain-free through manual therapy, physical therapy and medic ation. - Ice for localized tenderness - Patient given instructions use of medications as ordered, intermittent rest, back care exercise program, weight loss and improved p osture - GABAPENTIN 300 MG CAPSULE 2. Polyneuropathy in other diseases classified elsewhere ( C) - ICD9: 357.4, ICD10: G63 - GABAPENTIN 300 MG CAPSULE Follow-up in 4-6 weeks. DIAZ Markham on 2019-11-18 CNOV Office Visit (FAMPWS) Normal 11-18-[address] [place] [address] [facility] LORETA HURST ([id number]) 1945 [facility] Date Time Provider Department ([id number]) 11/18/19 1:40 PM Sunday CARTER) FAMPWS During your visit today, we recorded the following informati on about you: Temperature Pulse Respiration Blood pressure 97.2 degrees 76/minute 20/minute 130/54 Weight 81.2 kg Sunday Carter PA-C 11/18/2019 6:47 PM Signed BP 130/54 Pulse 76 Temp 36.2 ?C (97.2 ?F) (Tympanic) R jair 20 Wt 81.2 kg (179 lb) BMI 26.97 kg/m? This Team Access Model visit is a walk in encounter. It requ ired patient-provider interaction for the medical decision making as documented below. 74 year old male with c/o low back radiating int o both hips and center of low back. Once up and gets going no pain with walking. No foot pain other than numbness from neuropathy. Here because he was told to come to me for MDS pain manageme nt. Didn't feel physical therapy would help so he did not schedu le. Patient states that he seems to get worse with activity so I felt that more activity and physical therapy would make her more. Patient doesn't do much around the house at all: very inacti ve. Actually whenheismoreactivehispainseemsless. Pain centers around the mid low back area radiating in to bilateral low back, into buttocks and upper thighs. No nocturnal waking although when he does wake up he notes b ack hurts. Denies any dysfunction with bowel or bladder function. Patient initially had good pain relief with at b edtime dose of gabapentin but seems to warn off. HISTORIES FAMILY HISTORY Problem Relation Age of Onset - None Father - Diabetes Mother - Heart Mother - Hypertension Mother - Colon Cancer Sister - other (uterine cancer) Sister - other (blood disorder) Sister - Breast Cancer Daughter PAST MEDICAL HISTORY Diagnosis Date - Anemia - Asthma - Benign neoplasm of colon - Benign neoplasm of rectum and anal canal - Heartburn - Seasonal allergies - Snoring PAST SURGICAL HISTORY Procedure Laterality Date - AXILLARY LYMPHADENECTOMY Left 1997 No BP or IV to left upper extremity - COLONOSCOP W/ OR W/O [facility] SPEC 2002 Colonoscopy - COLONOSCOP W/ OR W/O BRSH SPEC 05/01/2012 Colonoscopy - COLONOSCOP W/ OR W/O BRS SPEC 04/30/2017 Colonoscopy - EGD W/O OR W/BRUSH/WASH 04/30/2017 EGD - KNEE SCOPE,DIAGNOSTIC 2004? Arthroscopy, right knee - LAP UMBILICAL HERNIA REPAIR 1997 - PAST SURGICAL HISTORY OF 1997 Lymphnodes AND fatty tumor removed left axilla - PAST SURGICAL HISTORY OF 1996 Fatty tumors removed from chest AND abdomen - VASECTOMY 1998 Social History Tobacco Use - Smoking status: Former Smoker Packs/day: 0.80 Years: 16.00 Pack years: 12.80 Types: Cigarettes Last attempt to quit: 11/09/1977 Years since quittin.0 - Smokeless tobacco: Never Used - Tobacco comment: Smoked from age [age]. Substance Use Topics - Alcohol use: No - Drug use: No ACTIVE PROBLEM LIST Diverticulosis Family History of Malignant Neoplasm of Gastrointestinal Tra ct Varicosity Benign Neoplasm of Colon Benign Neoplasm of Rectum and Anal Canal Macrocytic Anemia Elevated Ferritin Igm Lambda Monoclonal Gammopathy Mds (Myelodysplastic Syndrome), Low Grade (Hcc) Polyneuropathy in Other Diseases Classified Elsewhere (Hcc) Chronic Gerd Idiopathic Aplastic Anemia (Hcc) Cough Swelling of Limb Waldenstroms Macroglobulinemia (Hcc) History of Transfusion Current Outpatient Medications Medication Sig Dispense Refill - gabapentin (NEURONTIN) 300 mg capsule Take 1 capsule by mo uth daily at bedtime for 30 days. 30 capsule 1 - omeprazole (PRILOSEC) 20 mg capsule TA KE 2 CAPSULES BY MOUTH ONCE DAILY. 180 capsule 0 - montelukast (SINGULAIR) 10 mg tablet Take 1 tablet by mouth daily at bedtime. 90 tablet 3 - albuterol HFA (VENTOLIN HFA) 90 mcg/actuation inhaler Inha le 2 Puffs as instructed every 4 hours as needed for W heezing/Shortness of Breath. 1 Inhaler 2 - pyridoxine, vitamin B6, (VITAMIN B-6) 100 mg tablet Take 1 00 mg by mouth twice daily. - cholecalciferol (VITAMIN D-3) 5,000 unit tab T conrado 5,000 Units by mouth once daily. - acetaminophen (TYLENOL EXTRA STRENGTH) 500 mg tablet Take 1,000 mg by mouth as needed. - omega-3 fatty acids (FISH OIL CONCENTRATE) 1,000 mg cap Take 2 capsules by mouth twice daily. 360 capsule 3 - ibuprofen (MOTRIN) 400 mg tablet Take 400 mg by mouth as n eeded. - COMPOUNDED PRESCRIPTION Compression stockings 30-40mmHg 2 pairs Stasis edema of both lower extremities (primary encounter diagnosis) 1 Each 0 No current facility-administered medications for this visit. DTAP,TDAP,TD(1 - Tdap) due on 1955 EXAM: BP 130/54 Pulse 76 Temp 36.2 ?C (97.2 ?F) (Tympanic) R jair 20 Wt 81.2 kg (179 lb) BMI 26.97 kg/m? Pleasant adult man in no acu te distress. Alert and oriented all spheres. Normal affect and cognition. Speech normal. No deficits to learning or comprehension. Skin warm, dry, pink to lips and nailbeds. Normal turgor. Respirations regular and unlabored. HEENT WNL. TM's clear. Nose and oropharynx free from i njection or lesion. No cervical lymph nodes. Thyroid non-tender, no masses Chest CTA. HRRR without murmur or gallop. Back is mildly kyphotic with posture. He is able to straight en somewhat. Midline back is nontender. He does have tenderness over bila teral lumbar paravertebral muscles. He has some spasm there. SI joints ar e open when he flexes forward, fingers to about upper calf. Extrem: no clubbing or cyanosis. Edema: none. Extremities are warm and pink with prompt capillary refill. no sensory loss. Straight leg raise is negative. No pain wit h internal/external rotation of hips. DTRs are 2 out of 4+ and symmetric bilaterally to knee jerk and Achilles. Patient is able walk on tiptoes although balance is poor. He has poor muscular develop ment in his lower legs bilaterally. OMT with permission: Myofascial release to tender trigger points in the lumbar area, hamstring stretching, muscle energy techniques and traction successful in improved pain significantly. Patient was able to stand and m ove without discomfort, was able to forward flexed ankles. ASSESSMENT/PLAN: 1. Chronic midline low back pain without sciatica - ICD9: 724.2, 338.29, ICD10: M54.5, G89.29 Chronic low back pain which I'm not sure how much has to do with his history of MDS. I suspect he has poor course strengthening and due to c hronic fatigue poor aerobic fitness. Recommended he start physica l therapy, patient plans to do so closer to home in [place]. Follow-up as needed for OMT. We'll increase gabapentin to 300 mg prog ressively to 3 times a day. If this is not sufficient for pain management will work at getting him pain-free through manual therapy, physical therapy and medication. - Ice for localized tenderness - Patient given instructions use of medi cations as ordered, intermittent rest, back care exercise program, weight loss and improved posture - GABAPENTIN 300 MG CAPSULE 2. Polyneuropathy in other diseases classified e lsewhere (HCC) - ICD9: 357.4, ICD10: G63 - GABAPENTIN 300 MG CAPSULE Follow-up in 4-6 weeks. M Silas Carter PA-C Referring Provider: SELF [[id number]] Allergies As of Date: 11/18/2019 Noted Allergy Reaction ADVAIR DISKUS (FLUTICASONE PROPIO*03/15/2011 14 - Other: See Comments Comments: oral yeast infection antibiotics [Other] 03/15/2011 14 - Other: See Comments Comments: Anything in Levaquin family BACTRIM (SULFAMETHOXAZOLE) 01/20/2013 8 - GI Upset PAXIL (PAROXETINE HCL) 11/07/2017 14 - Other: See Comments Comments: Mouth sores, sore throat, salivating constantly, t in taste in his mouth Date Reviewed: 11/18/2019 Reviewed by: Patricia Poe LPN - Fully Assessed Reason for Visit: Pain, Back [855] Cmt: that radiates down into hip. worse i n the last couple of weeks. Visit Diagnoses:Chronic midline low back pain without sciatica [M54.5, G89.29] Polyneuropathy in other diseases classified elsewhere ([facility]) [G63] Order(s):gabapentin (NEURONTIN) 300 mg capsuleTake 1 capsu le by mouth three times daily for 90 days.Disp: 270 capsuleRfl: 1 Prescriptions as of 11/18/2019 Sig: GABAPENTIN 300 MG CAPSULE Take 1 capsule by mouth three* OMEPRAZOLE 20 MG CAPSULE,PORTER* TAKE 2 CAPSULES BY MOUTH ONCE * MONTELUKAST 10 MG TABLET Take 1 tablet by mouth daily * ALBUTEROL SULFATE HFA 90 MCG/* Inhale 2 Puffs as instructed * PYRIDOXINE (VITAMIN B6) 100 M* Take 100 mg by mouth twice da * CHOLECALCIFEROL (VITAMIN D3) * Take 5,000 Units by mouth onc * ACETAMINOPHEN 500 MG TABLET Take 1,000 mg by mouth as nee* OMEGA-3 FATTY ACIDS 1,000 MG * Take 2 capsules by mouth twic * IBUPROFEN 400 MG TABLET Take 400 mg by mouth as neede* COMPOUNDED PRESCRIPTION Compression stockings 30-40mm* Problem List As Of Date 11/18/2019 Noted Resolved Diverticulosis [K57.90] 01/23/2012 Family history of malignant neoplasm of gastroi*01/23/2012 More... 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 Medications Discontinued During This Encounter gabapentin (NEURONTIN) 300 mg capsule 30 c* 1 10/12/20192019 Route: ORAL Sig: Take 1 capsule by mouth daily at bedtime for 30 days. Disc: Reason for discontinue is not on file. Encounter Status:Closed by Sunday CARTER PA-C on 11/18/19 mendy cbc on 2018 Erythrocyte Unable to assay. 11.5-15.0 Normal 10-28-2019 [facility] (RBC) [Ratio] difficulty. [facility] ([id number]) Hematocrit (Bld) 24.8 39.0-51.0 % Low 10-28-2019 [id number] Hemoglobin (Bld) 8.4 13.0-17.0 g/dL Low 10-28-2019 Cl bernice [Mass/Vol] [facility] ([id number]) MCH (RBC) [Entitic 35.7 26.0-34.0 pg High 10-28-2019 Dominguez mass] [facility] ([id number]) MCHC (RBC) 33.9 30.5-36.0 g/dL Normal 10-28-2019 [place] d [Mass/Vol] [facility] ([id number]) MCV (RBC) [Entitic 105.5 80.0-100.0 fL High 10-28-2019 [facility] vol] [facility] (68135) Platelet mean 10.5 9.0-12.7 fL Normal 10-28-2019 [facility] land volume (Bld) [facility] [Entitic vol] [place] and ([id number]) Comment: Result Comment: Test perform ed by: [facility] [place], [address] [place] [address] Rd., [place], [place] [address]. RBC (Bld) [#/Vol] 2.35 4.20-6.00 m/uL Low 10-28-2019 C [facility] ([id number]) WBC (Bld) [#/Vol] 5.27 3.70-11.00 k/uL Normal 10-28-2019 [facility] ([id number]) [place] Platelet Cnt 310 150-400 k/uL Normal 9 [facility] ([id number]) xr lumbar 3v ap/lat/l5-s1 on 2019-10-12 XR LUMBAR 3V * * *Final Report* * * Normal [facility] AP/LAT/L5-S1 DATE OF EXAM: Oct 12 2019 2:04PM [facility] WOX 5228 - XR LUMBAR 3V AP/LAT/L5-S1 / [facility] PROCEDURE REASON: multiple diagnoses ([id number]) * * * * Physician Interpretation * * * * EXAM TITLE: XR LUMBAR 3V AP/LAT/L5-S1 EXAM DATE/TIME: 10/12/2019 2:04 PM COMPARISON: None. CLINICAL INDICATION/HISTORY: Low back pain. TECHNIQUE: AP, lateral and cone down lateral views of the javier mbar spine are presented. FINDINGS: There are five xtu-uti-lrkrrtz lumbar vertebra. No fracture or subluxations are noted. Right sided curvature of the lumbar spine is noted. L1-2 disc space narrowing is visualized. Questionable L3-4 mild disc space narrowing. There is moderate osteophyte formation. IMPRESSION: Lumbar spine degenerative changes as described a anny. Multimedia Educational Specialist: NUNO Transcribe Date/Time: Oct 12 2019 4:19P Dictated by : BEATRIZ RUSSO MD This examination was interpreted and the report reviewed and electronically signed by: BEATRIZ RUSSO MD on Oct 12 2019 4:20PM EST [id number] progress on 2019-10 PROGRESS HNO ID: [id number] Normal 10-12-2019 [facility] Author: Kane Hollingsworth (Rt) Abigail Avila [facility] ([id number]) Service: ? Author Type: Neurology Technician Type: Progress Notes Filed: 10/12/2019 2:04 PM Note Text: Radiology Service Progress Note PATIENT NAME: Loreta Hurst DATE OF SERVICE: October 12, 2019 TIME: 1:58 PM PATIENT IDENTITY VERIFICATION COMPLETED USING TWO (2) IDENTI FIERS: Name and Date of confirmed by patient verbally. PATIENT GENDER DATA: Male PATIENT RELEVANT IMPLANT DATA REVIEWED: Not Applicable RADIOLOGY DEPARTMENT: General X-ray: Exam(s) Completed: Spin e X-Ray(s): Lumbar AP / LAT / L5-S1 PERIPHERAL IV DATA: Not applicable SIGNED BY: RT Shameka October 12, 2019 1:58 PM PROGRESS HNO ID: [id number] Normal 10-12-2019 [facility] Author: Sunday Rosen (Diaz) Carter [facility] ([id number]) Service: ? Author Type: Physician Concrete Finisher Type: Progress Notes Filed: 10/12/2019 4:41 PM Note Text: BP (!) 126/44 Pulse 72 Temp 36.2 ?C (97.2 ?F) (Tympanic) Resp 16 Wt 79.8 kg (176 lb) BMI 26.52 kg/m? This Team Access Model visit is a walk in encounter. It requ ired patient-provider interaction for the medical decision making as documented below. 74 year old male with hx MDS, MGUS c/o hips/buttock/lower ba ck pain x few months. This is a chronic issue with relapse and recovery suually tr igger by activity. 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 He had mentioned this to Dr. Akers who referred him to us fo r pain control. Feels the area gets hot. Pain is worse in the morning and if he does too much physical activity. Denies pain radiation. Worse with activity and abdominal bloating, but still hurts at rest at times. 8 hr Arthritis Tylenol, biofreeze, and CBD oil once/day help s with some pain relief. Denies bowel or bladder incontinence. Denies fever, chills, night sweats. Admits to heat intolerance. Has different chronic pain with MDS. Notes that the pain gets worse when he is close to needing a transfusion. Last transfusion was 09/24/19, but the pain has not gotten m uch better this time. Gets prn transfusions based on sx and lab:needing about ever y 5 weeks at this point. Has a hx of numbness/tingling with bilateral foot neuropathy . HISTORIES FAMILY HISTORY Problem Relation Age of Onset - None Father - Diabetes Mother - Heart Mother - Hypertension Mother - Colon Cancer Sister - other (uterine cancer) Sister - other (blood disorder) Sister - Breast Cancer Daughter PAST MEDICAL HISTORY Diagnosis Date - Anemia - Asthma - Benign neoplasm of colon - Benign neoplasm of rectum and anal canal - Heartburn - Seasonal allergies - Snoring PAST SURGICAL HISTORY Procedure Laterality Date - AXILLARY LYMPHADENECTOMY Left 1997 No BP or IV to left upper extremity - COLONOSCOP W/ OR W/O [facility] SPEC 2002 Colonoscopy - COLONOSCOP W/ OR W/O BRS SPEC 05/01/2012 Colonoscopy - COLONOSCOP W/ OR W/O BRSH SPEC 04/30/2017 Colonoscopy - EGD W/O OR W/BRUSH/WASH 04/30/2017 EGD - KNEE SCOPE,DIAGNOSTIC 2004? Arthroscopy, right knee - LAP UMBILICAL HERNIA REPAIR 1997 - PAST SURGICAL HISTORY OF 1997 Lymphnodes AND fatty tumor removed left axilla - PAST SURGICAL HISTORY OF 1996 Fatty tumors removed from chest AND abdomen - VASECTOMY 1998 Social History Tobacco Use - Smoking status: Former Smoker Packs/day: 0.80 Years: 16.00 Pack years: 12.80 Types: Cigarettes Last attempt to quit: 11/09/1977 Years since quittin.9 - Smokeless tobacco: Never Used - Tobacco comment: Smoked from age [age]. Substance Use Topics - Alcohol use: No - Drug use: No ACTIVE PROBLEM LIST Diverticulosis Family History of Malignant Neoplasm of Gastrointestinal Tra ct Varicosity Benign Neoplasm of Colon Benign Neoplasm of Rectum and Anal Canal Macrocytic Anemia Elevated Ferritin Igm Lambda Monoclonal Gammopathy Mds (Myelodysplastic Syndrome), Low Grade (Hcc) Polyneuropathy in Other Diseases Classified Elsewhere (Hcc) Chronic Gerd Idiopathic Aplastic Anemia (Hcc) Cough Swelling of Limb Waldenstroms Macroglobulinemia (Hcc) History of Transfusion Current Outpatient Medications Medication Sig Dispense Refill - omeprazole (PRILOSEC) 20 mg capsule TAKE 2 CAPSULES BY GARRET TH ONCE DAILY. 180 capsule 0 - montelukast (SINGULAIR) 10 mg tablet Take 1 tablet by mout h daily at bedtime. 90 tablet 3 - albuterol HFA (VENTOLIN HFA) 90 mcg/actuation inhaler Inha le 2 Puffs as instructed every 4 hours as needed for Wheezing/Shortness of Breath. 1 Inhaler 2 - pyridoxine, vitamin B6, (VITAMIN B-6) 100 mg tablet Take 1 00 mg by mouth twice daily. - cholecalciferol (VITAMIN D-3) 5,000 unit tab Take 5,000 Un its by mouth once daily. - acetaminophen (TYLENOL EXTRA STRENGTH) 500 mg tablet Take 1,000 mg by mouth as needed. - omega-3 fatty acids (FISH OIL CONCENTRATE) 1,000 mg cap Ta ke 2 capsules by mouth twice daily. 360 capsule 3 - ibuprofen (MOTRIN) 400 mg tablet Take 400 mg by mouth as n eeded. - COMPOUNDED PRESCRIPTION Compression stockings 30-40mmHg 2 pairs Stasis edema of both lower extremities (primary encounter di agnosis) 1 Each 0 No current facility-administered medications for this visit. DTAP,TDAP,TD(1 - Tdap) due on 1955 EXAM: BP (!) 126/44 Pulse 72 Temp 36.2 ?C (97.2 ?F) (Tympanic) Resp 16 Wt 79.8 kg (176 lb) BMI 26.52 kg/m? Pleasant elderly male in no acute distress. Alert and orient ed all spheres. Normal affect and cognition. Speech normal. No defi cits to learning or comprehension. Skin warm, dry, pink to lips and nailbeds. Normal turgor. Respirations regular and unlabored. Lungs CTA Heart RRR no m/r/g Extrem: no clubbing or cyanosis. Edema: none. Extremities ar e warm and pink with prompt capillary refill. Back: forward flexion to knees. Some pain with flexion and e xtension. + TTPS in bilateral paralumbar muscle areas. SIJs are mobile. Reflexes intact b/l at patellar and achilles tendons. XR Lumbosacral interp: There are five wdl-zsi-atlicxu lumbar vertebra. No fracture or subluxations are noted. Right sided curvature of the lumbar spine is noted. L1-2 disc space narrowing is visualized. Questionable L3-4 mild disc space narrowing. There is moderate osteophyte formation. OMT: myofascial release and muscle energy techniques employe d with success in nearly complete relief and ability to flex to ankles. ASSESSMENT/PLAN: 1. Chronic midline low back pain without sciatica - ICD9: 72 4.2, 338.29, ICD10: M54.5, G89.29 (primary diagnosis) Mechanical low back pain - Patient given instructions use of medications as ordered, back care exercise program, improved posture, proper lifting technique s, intermittent use of heat and Don Tigney spine handout given and reviewed. Muscle energy techniques as shown 30 sec stretch 3-4 reps tw ice a day. As pain improves may move to additional postural and back stren gthening exercises. - XR LUMBAR GENERAL 3V AP/LAT/L5-S1 - CONSULT TO PHYSICAL THERAPY - GABAPENTIN 300 MG CAPSULE 2. MDS (myelodysplastic syndrome), low grade (HCC) - ICD9: 2 38.72, ICD10: D46.20 Requiring more frequent episodes with transfusion therapy 3. 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 4. DDD (degenerative disc disease), lumbar - ICD9: 722.52, I CD10: M51.36 As above. - CONSULT TO PHYSICAL THERAPY 5. Polyneuropathy in other diseases classified elsewhere (HC C) - ICD9: 357.4, ICD10: G63 Discussed medication vs no medication (patient preference). Agreed to trial Gabapentin. Start with HS dose. If symptomat ic, notify and will lower dose. Discussed administration and side effects. Boxed warnings re viewed. - GABAPENTIN 300 MG CAPSULE F/u prn M Silas Carter PA-C cnov on 2019-10-12 CNOV Office Visit (FAMPWS) Normal 10-12-20 19 [facility] LORETA HURST ([id number]) 1945 [facility] Date Time Provider Department ([id number]) 10/12/19 1:00 PM Sunday CARTER) AVNI During your visit today, we recorded the following informati on about you: Temperature Pulse Respiration Blood pressure 97.2 degrees 72/minute 16/minute 112/50 Weight 79.8 kg M Silas Carter PA-C 10/12/2019 4:41 PM Signed BP (!) 126/44 Pulse 72 Temp 36.2 ?C (97.2 ?F) (Tympani c) Resp 16 Wt 79.8 kg (176 lb) BMI 26.52 kg/m? This Team Access Model visit is a walk in encounter. It requ ired patient-provider interaction for the medical decision making as documented below. 74 year old male with hx MDS, MGUS c/o hips/buttock/lower ba ck pain x few months. This is a chronic issue with relapse and recovery suually trigger by activity. 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 He had mentioned this to Dr. Akers who referred him to us for pain control. Feels the area gets hot. Pain is worse in the mo rning and if he does too much physical activity. Denies pain radiation. Worse with activity and abdominal bloating, but still hurts at rest at times. 8 hr Arthritis Tylenol, biofreeze, and CBD oil once/da y helps with some pain relief. Denies bowel or bladder incontinence. Denies fever, chills, night sweats. Admits to heat intolerance. Has different chronic pain with MDS. Notes that the pain gets worse when he is close to needing a transfusion. Last transfusion was 09/24/19, but the pain has not gotten much better this time. Gets prn transfusions based on sx and lab:needin g about every 5 weeks at this point. Has a hx of numbness/tingling with bilateral foot neuropathy . HISTORIES FAMILY HISTORY Problem Relation Age of Onset - None Father - Diabetes Mother - Heart Mother - Hypertension Mother - Colon Cancer Sister - other (uterine cancer) Sister - other (blood disorder) Sister - Breast Cancer Daughter PAST MEDICAL HISTORY Diagnosis Date - Anemia - Asthma - Benign neoplasm of colon - Benign neoplasm of rectum and anal canal - Heartburn - Seasonal allergies - Snoring PAST SURGICAL HISTORY Procedure Laterality Date - AXILLARY LYMPHADENECTOMY Left 1997 No BP or IV to left upper extremity - COLONOSCOP W/ OR W/O BRS SPEC 2002 Colonoscopy - COLONOSCOP W/ OR W/O BRSH SPEC 05/01/2012 Colonoscopy - COLONOSCOP W/ OR W/O BRSH SPEC 04/30/2017 Colonoscopy - EGD W/O OR W/BRUSH/WASH 04/30/2017 EGD - KNEE SCOPE,DIAGNOSTIC 2004? Arthroscopy, right knee - LAP UMBILICAL HERNIA REPAIR 1997 - PAST SURGICAL HISTORY OF 1997 Lymphnodes AND fatty tumor removed left axilla - PAST SURGICAL HISTORY OF 1996 Fatty tumors removed from chest AND abdomen - VASECTOMY 1998 Social History Tobacco Use - Smoking status: Former Smoker Packs/day: 0.80 Years: 16.00 Pack years: 12.80 Types: Cigarettes Last attempt to quit: 11/09/1977 Years since quittin.9 - Smokeless tobacco: Never Used - Tobacco comment: Smoked from age [age]. Substance Use Topics - Alcohol use: No - Drug use: No ACTIVE PROBLEM LIST Diverticulosis Family History of Malignant Neoplasm of Gastrointestinal Tra ct Varicosity Benign Neoplasm of Colon Benign Neoplasm of Rectum and Anal Canal Macrocytic Anemia Elevated Ferritin Igm Lambda Monoclonal Gammopathy Mds (Myelodysplastic Syndrome), Low Grade (Hcc) Polyneuropathy in Other Diseases Classified Elsewhere (Hcc) Chronic Gerd Idiopathic Aplastic Anemia (Hcc) Cough Swelling of Limb Waldenstroms Macroglobulinemia (Hcc) History of Transfusion Current Outpatient Medications Medication Sig Dispense Refill - omeprazole (PRILOSEC) 20 mg capsule TA KE 2 CAPSULES BY MOUTH ONCE DAILY. 180 capsule 0 - montelukast (SINGULAIR) 10 mg tablet Take 1 tablet by mouth daily at bedtime. 90 tablet 3 - albuterol HFA (VENTOLIN HFA) 90 mcg/actuation inhaler Inha le 2 Puffs as instructed every 4 hours as needed for W heezing/Shortness of Breath. 1 Inhaler 2 - pyridoxine, vitamin B6, (VITAMIN B-6) 100 mg tablet Take 1 00 mg by mouth twice daily. - cholecalciferol (VITAMIN D-3) 5,000 unit tab T conrado 5,000 Units by mouth once daily. - acetaminophen (TYLENOL EXTRA STRENGTH) 500 mg tablet Take 1,000 mg by mouth as needed. - omega-3 fatty acids (FISH OIL CONCENTRATE) 1,000 mg cap Take 2 capsules by mouth twice daily. 360 capsule 3 - ibuprofen (MOTRIN) 400 mg tablet Take 400 mg by mouth as n eeded. - COMPOUNDED PRESCRIPTION Compression stockings 30-40mmHg 2 pairs Stasis edema of both lower extremities (primary encounter diagnosis) 1 Each 0 No current facility-administered medications for this visit. DTAP,TDAP,TD(1 - Tdap) due on 1955 EXAM: BP (!) 126/44 Pulse 72 Temp 36.2 ?C (97.2 ?F) (Tympani c) Resp 16 Wt 79.8 kg (176 lb) BMI 26.52 kg/m? Pleasant elderly male in no acute distress. Alert and orie nted all spheres. Normal affect and cognition. Speech normal. No deficits to l earning or comprehension. Skin warm, dry, pink to lips and nailbeds. Normal turgor. Respirations regular and unlabored. Lungs CTA Heart RRR no m/r/g Extrem: no clubbing or cyanosis. Edema: none. Extremities are warm and pink with prompt capillary refill. Back: forward flexion to kne es. Some pain with flexion and extension. + TTPS in bilateral paralumbar muscle areas. SIJs are mobile. Reflexes intact b/l at patellar and achilles tendons. XR Lumbosacral interp: There are five axm-tqj-gqznmnk lumbar vertebra. No fracture or subluxations are noted. Right sided curvature of the lumbar spine is noted. L1-2 disc space narrowing is visualized. Questionable L3-4 mild disc space narrowing. There is moderate osteophyte formation. OMT: myofascial release and muscle energy techni ques employed with success in nearly complete relief and ability to flex to ankles. ASSESSMENT/PLAN: 1. Chronic midline low back pain without sciatica - ICD9: 724.2, 338.29, ICD10: M54.5, G89.29 (primary diagnosis) Mechanical low back pain - Patient given instructions use of medi cations as ordered, back care exercise program, improved posture, proper liftin g techniques, intermittent use of heat and Don Tigney spine handout given and reviewed. Dea e energy techniques as shown 30 sec stretch 3-4 reps twice a day. As pain improves may move to additional postural and back strengthening exercises. - XR LUMBAR GENERAL 3V AP/LAT/L5-S1 - CONSULT TO PHYSICAL THERAPY - GABAPENTIN 300 MG CAPSULE 2. MDS (myelodysplastic synd claude), low grade (HCC) - ICD9: 238.72, ICD10: D46.20 Requiring more frequent episodes with transfusion therapy 3. 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 4. DDD (degenerative disc disease), lumbar - ICD9: 722.52, I CD10: M51.36 As above. - CONSULT TO PHYSICAL THERAPY 5. 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 Agreed to trial Gabapentin. Start with HS dose. If symptomatic, notify and will lower dose. Discussed administration and side effects. Boxed warnings re viewed. - GABAPENTIN 300 MG CAPSULE F/u prn M DIAZ Hooker PA-C 10/12/2019 4:40 PM Signed Gabapentin (Patient Education - Adult Medication) You must carefully read the Consumer In formation Use and Disclaimer below in order to understand and correctly use this information Pronunciation (DEEPA greene) Brand Names: USGralise; Gralise Starter; Neurontin Brand Names: CanadaACT Gabapentin [DSC]; AG-Gabapentin; APO- Gabapentin; Auro-Gabapentin; BCI Gabapentin [DSC]; BIO-Gabapentin; DOM-G abapentin; GD-Gabapentin; GLN-Gabapentin; JAMP-Gabapentin; Mar-Gabapent in; MYLAN-Gabapentin [DSC]; Neurontin; PHL-Gabapentin [DSC]; PMS -Gabapentin; Priva-Gabapentin; PRO-Gabapentin; RAN-Gabapentin; MAGAN-Gabap entin; TARO-Gabapentin; TEVA-Gabapentin; VAN-Gabapentin [DSC] What is this drug used for? -It is used to treat seizures. -It is used to treat painful nerve diseases. -It may be given to you for other reasons. Talk with the doc mao. What do I need to tell my doctor BEFORE I take this drug? -If you have an allergy to gabapentin or any other part of t his drug. -If you are allergic to any drugs like this one, any other drugs, foods, or other substances. Tell your doctor about the allergy a nd what signs you had, like rash; hives; itching; shortness of breath; wheezi ng; cough; swelling of face, lips, tongue, or throat; or any other signs. -If you have kidney disease or are on dialysis. This is not a list of all drugs or health problems that inte ract with this drug. Tell your doctor and pharmacist about all of you r drugs (prescription or OTC, natural products, vitamins) and health problems. You m ust check to make sure that it is safe for you to take this drug with all of your drugs and health problems. Do not start, stop, or change the dose of any drug without checking with your doctor. What are some things I need to know or do while I take this drug? -Tell all of your health care providers that you take this drug. This includes your doctors, nurses, pharmacists, and dentists. -Avoid driving and doing other tasks or actions that call for you to be alert until you see how this drug affects you. -This drug may affect certain lab tests. Tell all of your alth care providers and lab workers that you take this drug. -Have blood work checked as you have been told by the doct or. Talk with the doctor. -Talk with your doctor before you drink alcohol or use other drugs and natural products that slow your actions. -This drug is not the same as gabapentin enacarb il (Horizant?). Do not use in its place. Talk with the doctor. -A severe and sometimes deadly reaction has happened. Most of the time, this reaction has signs like fever, rash, or swollen glands with problems in body organs like the liver, kidney, blood, heart, mus cles and joints, or lungs. If you have questions, talk with the doctor. -Do not stop taking this drug all of a s udden without calling your doctor. You may have a greater risk of side effects. If you need to st op this drug, you will want to slowly stop it as ordered by your doctor. -If you are 65 or older, use this drug with care. You could have more side effects. -Use with care in children. Talk with the doctor. -Tell your doctor if you are or plan on getting p regnant. You will need to talk about the benefits and risks of using this drug while you are . -Tell your doctor if you are breast-feeding. You will need to talk about any risks to your baby. What are some side effects that I need to call my doctor abo fl right away? WARNING/CAUTION: Even though it may be r are, some people may have very bad and sometimes deadly side effects when taking a drug. Tell your doctor or get medical help right away if y ou have any of the following signs or symptoms that may be related to a very bad side effect: -Signs of an allergic reaction, like rash; hives; itching; r ed, swollen, blistered, or peeling skin with or without fever; whee zing; tightness in the chest or throat; trouble chelle athing, swallowing, or talking; unusual hoarseness; or swelling of the mouth, face, lips, tongue, or throat. -Signs of liver problems like dark urine, feeling tired, not hungry, upset stomach or stomach pain, light-colored stools, t hrowing up, or yellow skin or eyes. -Signs of kidney problems like unable to pass ur ine, change in how much urine is passed, blood in the urine, or a big weight gain. -Trouble controlling body movements, twitching, change in ba sally, trouble swallowing or speaking. -Memory problems or loss. -Change in eyesight. -Feeling confused. -Shakiness. -Shortness of breath, a big weight gain, or swelling in the arms or legs. -Feeling very tired or weak. -Not able to control eye movements. -If seizures are worse or not the same after starting this d rug. -Any unexplained bruising or bleeding. -Swollen gland. -Fever or chills. -Sore throat. -Muscle pain or weakness. -Not able to focus. -Very bad dizziness or passing out. -Patients who take this drug may be at a greater risk of h aving thoughts or actions of suicide. The risk may be greater in people who coleman ve had these thoughts or actions in the past. Call the doctor right away if signs like low mood (depression), nervousness, restlessness, grouchin ess, panic attacks, or changes in mood or actions are new or wo rse. Call the doctor right away if any thoughts or actions of suicide occur. What are some other side effects of this drug? All drugs may cause side effects. Dede r, many people have no side effects or only have minor side effects. Call your doctor or get medical help if any of these side effects or any other side effects bother you or d o not go away: -Dizziness. -Feeling sleepy. -Upset stomach or throwing up. -Diarrhea. -Dry mouth. -Feeling tired or weak. These are not all of the side effects that may occur. If y ou have questions about side effects, call you r doctor. Call your doctor for medical advice about side effects. You may report side effects to your national health agency. How is this drug best taken? Use this drug as ordered by your doctor. Read all informat ion given to you. Follow all instructions closely. All products: -Keep taking this drug as you have been told by your docto r or other health care provider, even if you feel well. -To gain the most benefit, do not miss doses. -If you are taking an antacid that has aluminum or magnesium in it, take this drug at least 2 hours after taking the antacid. Gralise: -Take with the evening meal. -Swallow whole. Do not chew, break, or crush. All other products: -Take with or without food. Take with food if it causes an u pset stomach. Capsules: -Swallow whole with a full glass of water. Tablets: -You may break the tablet in half. Do not chew or crush. -If you break the tablet in half, use the other half of the tablet for the next dose, as told by the doctor. Throw away half-tabl ets not used within 28 days. Liquid (solution): -Measure liquid doses carefully. Use the measuring device that comes with this drug. If there is none, ask the pharmacist for a device to measure this drug. What do I do if I miss a dose? -Take a missed dose as soon as you think about it. -If it is close to the time for your next dose, skip the m issed dose and go back to your normal time. -Do not take 2 doses at the same time or extra doses. How do I store and/or throw out this drug? Liquid (solution): -Store in a refrigerator. Do not freeze. All other products: -Store at room temperature. -Store in a dry place. Do not store in a bathroom. All dose forms: -Keep all drugs in a safe place. Keep all drugs out of the reach of children and pets. -Throw away unused or drugs. Do not flush down a toilet or pour down a drain unless you are told to do so. Check with your pharmaci st if you have questions about the best way to throw out drugs. There may be drug take-back programs in your area. General drug facts -If your symptoms or health problems do not get better or if they become worse, call your doctor. -Do not share your drugs with others and do not take anyone else's drugs. -Keep a list of all your drugs (prescrip tion, natural products, vitamins, OTC) with you. Give this list to your doctor. -Talk with the doctor before starting any new dr ug, including prescription or OTC, natural products, or vitamins. -Some drugs may have another patient information leaflet. If you have any questions about this drug, please talk w ith your doctor, nurse, pharmacist, or other health care provider. -If you think there has been an overdose, call your po usman control center or get medical care right away. Be ready to tell or show what was taken, how much, and when it happened. Last Reviewed Date 2018-02-13 Referring Provider: SELF [200] Allergies As of Date: 10/12/2019 Noted Allergy Reaction ADVAIR DISKUS (FLUTICASONE PROPIO*03/15/2011 14 - Other: See Comments Comments: oral yeast infection antibiotics [Other] 03/15/2011 14 - Other: See Comments Comments: Anything in Levaquin family BACTRIM (SULFAMETHOXAZOLE) 01/20/2013 8 - GI Upset PAXIL (PAROXETINE HCL) 11/07/2017 14 - Other: See Comments Comments: Mouth sores, sore throat, salivating constantly, t in taste in his mouth Date Reviewed: 10/12/2019 Reviewed by: Sunday Rosen (Timothy Carter - Fully Assessed Reason for Visit: Pain, Back [855] Cmt: off and on for several months Primary Visit Diagnosis:Chronic midline low back pain without sciatica [M54.5, G89.29] Other Visit Diagnoses:MDS (myelodysplast ic syndrome), low grade (HCC) [D46.20] IgM lambda monoclonal gammopathy [D47.2] DDD (degenerative disc disease), lumbar [M51.36] Polyneuropathy in other diseases classified elsewhere (HCC) [G63] Order(s):XR LUMBAR GENERAL 3 V AP/LAT/L5-S1 [6456429] Order #: [id number] FUTURE CONSULT TO PHYSICAL THERAPY [9080] Order #: [id number]: 1 FUTURE gabapentin (NEURONTIN) 300 mg capsuleTake 1 capsule by mouth daily at bedtime for 30 days.Disp: 30 capsuleRfl: 1 Prescriptions as of 10/12/2019 Sig: OMEPRAZOLE 20 MG CAPSULE,PORTER* TAKE 2 CAPSULES BY MOUTH ONCE * MONTELUKAST 10 MG TABLET Take 1 tablet by mouth daily * ALBUTEROL SULFATE HFA 90 MCG/* Inhale 2 Puffs as instructed * PYRIDOXINE (VITAMIN B6) 100 M* Take 100 mg by mouth twice da * CHOLECALCIFEROL (VITAMIN D3) * Take 5,000 Units by mouth onc * ACETAMINOPHEN 500 MG TABLET Take 1,000 mg by mouth as nee* OMEGA-3 FATTY ACIDS 1,000 MG * Take 2 capsules by mouth twic * IBUPROFEN 400 MG TABLET Take 400 mg by mouth as neede* GABAPENTIN 300 MG CAPSULE Take 1 capsule by mouth daily* COMPOUNDED PRESCRIPTION Compression stockings 30-40mm* Problem List As Of Date 10/12/2019 Noted Resolved Diverticulosis [K57.90] 01/23/2012 Family history of malignant neoplasm of gastroi*01/23/2012 More... 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 04/28/2017 MDS (myelodysplastic syndrome), low grade (HCC)*12/13/2015 Polyneuropathy in other diseases classified els*05/08/2016 Chronic GERD [K21.9] 05/08/2016 Idiopathic aplastic anemia (HCC) [D61.3] 08/11/2017 Cough [R05] 05/22/2018 Swelling of limb [M79.89] 05/22/2018 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 (HCC) [C88.0] 08/21/2018 History of transfusion [Z92.89] 12/24/2018 Other instructions from your clinician: Gabapentin (Patient Education - Adult Medication) You must carefully read the Consumer Information Use and Di sclaimer below in order to understand and correctly use this informat ion Pronunciation (GA ba pen tin) Brand Names: USGralise; Gralise Starter; Neurontin Brand Names: CanadaACT Gabapentin [DSC]; AG-Gabapentin; APO- Gabapentin; Auro-Gabapentin; BCI Gabapentin [DSC]; BIO-Gabapentin; DOM-G abapentin; GD-Gabapentin; GLN-Gabapentin; JAMP-Gabapentin; Mar-Gabapent in; MYLAN-Gabapentin [DSC]; Neurontin; PHL-Gabapentin [DSC]; PMS -Gabapentin; Priva-Gabapentin; PRO-Gabapentin; RAN-Gabapentin; MAGAN-Gabap entin; TARO-Gabapentin; TEVA-Gabapentin; VAN-Gabapentin [DSC] What is this drug used for? -It is used to treat seizures. -It is used to treat painful nerve diseases. -It may be given to you for other reasons. Talk with the doc mao. What do I need to tell my doctor BEFORE I take this drug? -If you have an allergy to gabapentin or any other part of t his drug. -If you are allergic to any drugs like this one, any other d rugs, foods, or other substances. Tell your doctor about the allergy and what signs you had, like rash; hives; itching; shortness of breath; wheezin g; cough; swelling of face, lips, tongue, or throat; or any other sign s. -If you have kidney disease or are on dialysis. This is not a list of all drugs or health problems that inte ract with this drug. Tell your doctor and pharmacist about all of your drugs (pre scription or OTC, natural products, vitamins) and health problems. You mu st check to make sure that it is safe for you to take this drug with all of your drugs and health problems. Do not start, stop, or change the dose of any drug without checking with your doctor. What are some things I need to know or do while I take this drug? -Tell all of your health care providers that you take this d rug. This includes your doctors, nurses, pharmacists, and dentists. -Avoid driving and doing other tasks or actions that call fo r you to be alert until you see how this drug affects you. -This drug may affect certain lab tests. Tell all of your he alth care providers and lab workers that you take this drug. -Have blood work checked as you have been told by the doctor . Talk with the doctor. -Talk with your doctor before you drink alcohol or use other drugs and natural products that slow your actions. -This drug is not the same as gabapentin enacarbil (Horizant ?). Do not use in its place. Talk with the doctor. -A severe and sometimes deadly reaction has happened. Most o f the time, this reaction has signs like fever, rash, or swollen glands with problems in body organs like the liver, kidney, blood, heart, muscles and joints, or lungs. If you have questions, talk with the doctor. -Do not stop taking this drug all of a sudden without callin g your doctor. You may have a greater risk of side effects. If you need to stop this drug, you will want to slowly stop it as ordered by you r doctor. -If you are 65 or older, use this drug with care. You could have more side effects. -Use with care in children. Talk with the doctor. -Tell your doctor if you are or plan on getting pre gnant. You will need to talk about the benefits and risks of using this drug while you are . -Tell your doctor if you are breast-feeding. You will need t o talk about any risks to your baby. What are some side effects that I need to call my doctor abo fl right away? WARNING/CAUTION: Even though it may be rare, some people may have very bad and sometimes deadly side effects when taking a drug. Te ll your doctor or get medical help right away if you have any of the follow ing signs or symptoms that may be related to a very bad side effect: -Signs of an allergic reaction, like rash; hives; itching; r ed, swollen, blistered, or peeling skin with or without fever; wheezing; tightness in the chest or throat; trouble breathing, swallowing, or talki ng; unusual hoarseness; or swelling of the mouth, face, lips, tongue, or throat. -Signs of liver problems like dark urine, feeling tired, not hungry, upset stomach or stomach pain, light-colored stools, throwin g up, or yellow skin or eyes. -Signs of kidney problems like unable to pass urine, change in how much urine is passed, blood in the urine, or a big weight gain. -Trouble controlling body movements, twitching, change in ba sally, trouble swallowing or speaking. -Memory problems or loss. -Change in eyesight. -Feeling confused. -Shakiness. -Shortness of breath, a big weight gain, or swelling in the arms or legs. -Feeling very tired or weak. -Not able to control eye movements. -If seizures are worse or not the same after starting this d rug. -Any unexplained bruising or bleeding. -Swollen gland. -Fever or chills. -Sore throat. -Muscle pain or weakness. -Not able to focus. -Very bad dizziness or passing out. -Patients who take this drug may be at a greater risk of hav ing thoughts or actions of suicide. The risk may be greater in people who have had these thoughts or actions in the past. Call the doctor right away if signs like low mood (depression), nervousness, restlessness, grouc hiness, panic attacks, or changes in mood or actions are new or worse. Yordan l the doctor right away if any thoughts or actions of suicide occur. What are some other side effects of this drug? All drugs may cause side effects. However, many people have no side effects or only have minor side effects. Call your doctor or get medical help if any of these side effects or any other side effects bother you or do not go away: -Dizziness. -Feeling sleepy. -Upset stomach or throwing up. -Diarrhea. -Dry mouth. -Feeling tired or weak. These are not all of the side effects that may occur. If you have questions about side effects, call your doctor. Call your do ctor for medical advice about side effects. You may report side effects to your national health agency. How is this drug best taken? Use this drug as ordered by your doctor. Read all informatio n given to you. Follow all instructions closely. All products: -Keep taking this drug as you have been told by your doctor or other health care provider, even if you feel well. -To gain the most benefit, do not miss doses. -If you are taking an antacid that has aluminum or magnesium in it, take this drug at least 2 hours after taking the antacid. Gralise: -Take with the evening meal. -Swallow whole. Do not chew, break, or crush. All other products: -Take with or without food. Take with food if it causes an u pset stomach. Capsules: -Swallow whole with a full glass of water. Tablets: -You may break the tablet in half. Do not chew or crush. -If you break the tablet in half, use the other half of the tablet for the next dose, as told by the doctor. Throw away half-tablet s not used within 28 days. Liquid (solution): -Measure liquid doses carefully. Use the measuring device th at comes with this drug. If there is none, ask the pharmacist for a device to measure this drug. What do I do if I miss a dose? -Take a missed dose as soon as you think about it. -If it is close to the time for your next dose, skip the mis sed dose and go back to your normal time. -Do not take 2 doses at the same time or extra doses. How do I store and/or throw out this drug? Liquid (solution): -Store in a refrigerator. Do not freeze. All other products: -Store at room temperature. -Store in a dry place. Do not store in a bathroom. All dose forms: -Keep all drugs in a safe place. Keep all drugs out of the r each of children and pets. -Throw away unused or drugs. Do not flush down a joe let or pour down a drain unless you are told to do so. Check with your p harmacist if you have questions about the best way to throw out drugs. Th ere may be drug take-back programs in your area. General drug facts -If your symptoms or health problems do not get better or if they become worse, call your doctor. -Do not share your drugs with others and do not take anyone else's drugs. -Keep a list of all your drugs (prescription, natural produc ts, vitamins, OTC) with you. Give this list to your doctor. -Talk with the doctor before starting any new drug, includin g prescription or OTC, natural products, or vitamins. -Some drugs may have another patient information leaflet. If you have any questions about this drug, please talk with your doctor, andrew se, pharmacist, or other health care provider. -If you think there has been an overdose, call your [facility] or get medical care right away. Be ready to tell or show wha t was taken, how much, and when it happened. Last Reviewed Date 2018-02-13 Prescriptions ordered this encounter Disp Refills Start End GABAPENTIN 300 MG CAPSULE 30 c* 1 10/12/2019 11/11/2019 Route: ORAL Sig: Take 1 capsule by mouth daily at bedtime for 30 days. Medications Discontinued During This Encounter ranitidine (ZANTAC) 150 mg tablet 180 * 1 03/15/2019 10/12/2019 Route: ORAL Sig: Take 2 tablets by mouth daily before breakfast. Disc: Reason for discontinue is not on file. hydrOXYzine pamoate (VISTARIL) 25 mg* 30 c* 0 03/15/20192018 Route: ORAL Sig: Take 1 capsule by mouth three times daily as needed. Disc: Reason for discontinue is not on file. hydrocortisone (CORTISONE) 1 % cream 1 Tu* 0 03/15/2019 019 Route: TOPICAL Sig: Apply 1 application to affected area twice daily. Disc: Reason for discontinue is not on file. Encounter Status:Closed by Sunday CARTER PA-C on 10/12/19 [place] cbc on 2018 Erythrocyte distribution 24.5 11.5-15.0 % High 09-23 [facility] width (RBC) [Ratio] [place] ([id number]) Hematocrit (Bld) [Volume 24.8 39.0-51.0 % Low 09-23 [facility] fraction] [place] ([id number]) Hemoglobin (Bld) 8.4 13.0-17.0 g/dL Low 09-23-2019 [facility] [Mass/Vol] [place] ([id number]) MCH (RBC) [Entitic mass] 36.2 26.0-34.0 pg High 09-23 [facility] ([id number]) MCHC (RBC) [Mass/Vol] 33.9 30.5-36.0 g/dL Normal 09-23-20 19 [facility] ([id number]) MCV (RBC) [Entitic vol] 106.9 80.0-100.0 fL High 09-23 [facility] ([id number]) Platelet mean volume 9.9 9.0-12.7 fL Normal 9 [facility] (Bld) [Entitic vol] [place] ([id number]) Comment: Result Comment: Test perform ed by: [facility], [address] [place] [address] Rd., [place], [place] [address]. RBC (Bld) [#/Vol] 2.32 4.20-6.00 m/uL Low 09-23-2019 [facility] ([id number]) WBC (Bld) [#/Vol] 4.91 3.70-11.00 k/uL Normal 09-23-2019 [facility] ([id number]) [place] Platelet Cnt 315 150-400 k/uL Normal 9 [facility] ([id number]) obsolete on 2019-09 OBSOLETE Refill (HEMAWS) Normal 09-17-2019 [facility] LORETA HURST ([id number]) 1945 [facility] Date Time Provider Department ([id number]) 09/17/19 STEVEN AKERS HEMAWS During your visit today, we recorded the following informati on about you: Christina Hernandez MD 09/17/2019 3:01 PM Signed Patient's request for medication is as follows Signed Prescriptions Disp Refills omeprazole (PRILOSEC) 20 mg capsule 180 capsule 0 Sig: TAKE 2 CAPSULES BY MOUTH ONCE DAILY. DARIAN: No Authorizing Provider: CHRISTINA HERNANDEZ Order entered - please phone pharmacy and notify patient. Christina Hernandez MD Allergies As of Date: 09/17/2019 Noted Allergy Reaction ADVAIR DISKUS (FLUTICASONE PROPIO*03/15/2011 14 - Other: See Comments Comments: oral yeast infection antibiotics [Other] 03/15/2011 14 - Other: See Comments Comments: Anything in Levaquin family BACTRIM (SULFAMETHOXAZOLE) 01/20/2013 8 - GI Upset PAXIL (PAROXETINE HCL) 11/07/2017 14 - Other: See Comments Comments: Mouth sores, sore throat, salivating constantly, t in taste in his mouth Date Reviewed: 06/17/2019 Reviewed by: Caity Moya - Fully Assessed Reason for Visit: Refill Request [94] Order(s):omeprazole (PRILOSEC) 20 mg capsuleTAKE 2 CAPSULES BY MOUTH ONCE DAILY.Disp: 180 capsuleRfl: 0 Prescriptions as of 09/17/2019 Sig: OMEPRAZOLE 20 MG CAPSULE,PORTER* TAKE 2 CAPSULES BY MOUTH ONCE * MONTELUKAST 10 MG TABLET Take 1 tablet by mouth daily * RANITIDINE 150 MG TABLET Take 2 tablets by mouth daily* HYDROXYZINE PAMOATE 25 MG CAP* Take 1 capsule by mouth three * HYDROCORTISONE 1 % TOPICAL CR* Apply 1 application to affect * ALBUTEROL SULFATE HFA 90 MCG/* Inhale 2 Puffs as instructed * COMPOUNDED PRESCRIPTION Compression stockings 30-40mm* PYRIDOXINE (VITAMIN B6) 100 M* Take 100 mg by mouth twice da * CHOLECALCIFEROL (VITAMIN D3) * Take 5,000 Units by mouth onc * ACETAMINOPHEN 500 MG TABLET Take 1,000 mg by mouth as nee* OMEGA-3 FATTY ACIDS 1,000 MG * Take 2 capsules by mouth twic * IBUPROFEN 400 MG TABLET Take 400 mg by mouth as neede* Problem List As Of Date 09/17/2019 Noted Resolved Diverticulosis [K57.90] INVALID FOR* Family history of malignant neoplasm of gastroi*INVALID FOR* More... 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] INVALID FOR* Lymphoplasmacytic B-cell irwin or systemic lymp*INVALID FOR* 04/28/2017 MDS (myelodysplastic syndrome), low grade (HCC)*INVALID FOR* Polyneuropathy in other diseases classified els*INVALID FOR* Chronic GERD [K21.9] INVALID FOR* Idiopathic aplastic anemia (HCC) [D61.3] INVALID FOR* Cough [R05] INVALID FOR* Swelling of limb [M79.89] INVALID FOR* 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 (HCC) [C88.0] INVALID FOR* History of transfusion [Z92.89] INVALID FOR* Prescriptions ordered this encounter Disp Refills Start End OMEPRAZOLE 20 MG CAPSULE,DELAYED REL* 180 * 0 09/17/2019 Route: ORAL Sig: TAKE 2 CAPSULES BY MOUTH ONCE DAILY. Medications Discontinued During This Encounter omeprazole (PRILOSEC) 20 mg capsule 180 * 3 07/23/2018 019 Class: [employer] Route: ORAL Sig: Take 2 capsules by mouth once daily. Disc: Reason for discontinue is not on file. Encounter Status:Closed by MARGOT DE LA ROSA LPN on 09/17/19 [place] cbc on 2018 Erythrocyte distribution 21.5 11.5-15.0 % High 08-17 [facility] width (RBC) [Ratio] [place] ([id number]) Hematocrit (Bld) [Volume 25.3 39.0-51.0 % Low 08-17 [facility] fraction] [place] ([id number]) Hemoglobin (Bld) 8.6 13.0-17.0 g/dL Low 08-17-2019 [facility] [Mass/Vol] [place] ([id number]) MCH (RBC) [Entitic mass] 36.4 26.0-34.0 pg High 08-17 [facility] ([id number]) MCHC (RBC) [Mass/Vol] 34.0 30.5-36.0 g/dL Normal 08-17-20 [facility] ([id number]) MCV (RBC) [Entitic vol] 107.2 80.0-100.0 fL High 08-17 [facility] ([id number]) Platelet mean volume 10.2 9.0-12.7 fL Normal [facility] (Bld) [Entitic vol] [place] ([id number]) Comment: Result Comment: Test perform ed by: [facility] [place], [address] [place] [address]. RBC (Bld) [#/Vol] 2.36 4.20-6.00 m/uL Low 08-17-2019 C [facility] ([id number]) WBC (Bld) [#/Vol] 5.15 3.70-11.00 k/uL Normal 08-17-2019 [facility] ([id number]) [place] Platelet Cnt 339 150-400 k/uL Normal 9 [facility] ([id number]) Vital Signs Vital Sign Description Value / Unit Date Location The following section is limited to 5 en tries per type and includes entries from the following time range: 20200629 - 20200611 0. Body mass index (BMI) Height (cm): 177.8 06-29-2020 [facility] ([id number]) [Ratio] Weight (kg): 77.3 BMI: 24.5 Encounters Date Type Reason Provider Location 07-26-2020 - Patient encounter Steven Hollingsworth Masci Hematology /Oncology 07-26-2020 procedure Comment: RE: [facility] 07-24-2020 - 07-24-2020 Patient encounter External Pro vider [facility] procedure 07-20-2020 - 07-20-2020 Patient encounter External Pro vider [facility] procedure 06-29-2020 - 06-29-2020 Patient encounter Steven A Masci Hematology/Oncology procedure Comment: RE: [facility] 06-20-2020 - Patient encounter Sunday Yuan) [facility] 06-20-2020 procedure Carter 07-24-2020 - Results Only External Provider External[facility]N [facility] 07-24-2020 07-20-2020 - Results Only External Provider External-N [facility] 07-20-2020 06-20-2020 Results Only Sunday Yuan) [facility] [place] 06-29-2020 - Telephone encounter Steven Pinedai Hematolo gy/Oncology 06-29-2020 Comment: Transfusion 06-22-2020 - 06-22-2020 Telephone encounter Sunday Yuan) Family [facility] [place] Comment: Insurance Authorization (Tad alafil) 06-12-2020 - 06-12-2020 Telephone encounter Sunday Dave-C) Family [facility] [place] Comment: Appointment Procedures Procedure Name Date Provider Location EXTERNAL CARDIOLOGY 07-24-2020 External Provider [facility] ([id number]) EXTERNAL IMAGING 07-24-2020 - External Provider [place] [facility] 07-24-2020 ([id number]) EXTERNAL LAB 07-24-2020 External [facility] [place] [facility] ([id number]) EXTERNAL CARDIOLOGY 07-20-2020 External Provider [facility] ([id number]) EXTERNAL IMAGING 07-20-2020 External Provider [place] [facility] ([id number]) Polysom 6/>yrs sleep 4/> 06-20-2020 Rosen (Diaz) [facility] addl bettye attnd [place] ([id number]) Colonoscopy 04-30-2017 - [facility] 04-30-2017 ([id number]) Plan of Treatment Plan Description Date Location COLONOSCOPY COLONOSCOPY 04-30-2027 - [facility] 04-30-2027 ([id number]) COLORECTAL CANCER COLORECTAL CANCER 04-30-2027 [facility] inic SCREENING,SEE MODIFIER SCREENING,SEE MODIFIER ([id number] [phone]) DIABETES SCREEN DIABETES SCREEN 06-08-2023 - [facility] 06-08-2023 ([id number]) INFLUENZA (#1) INFLUENZA (#1) 2020 - [facility] 07-11-2020 ([id number]) LIPID SCREEN LIPID SCREEN 05-04-2020 - [facility] 05-04-2020 ([id number]) SHINGRIX VACCINE (2 of SHINGRIX VACCINE (2 of 09-01-2013 - [facility] 3) 3) 09-01-2013 ([id number]) ADVANCE DIRECTIVE ADVANCE DIRECTIVE 2009 - [facility] inic DISCUSSION DISCUSSION 2009 ([id number]) DTAP,TDAP,TD (1 - Tdap) DTAP,TDAP,TD (1 - Tdap) 1963 - [facility] 1963 ([id number]) no information [facility] ([id number]) Immunizations Vaccine Notes Status Date Location Influenza Vaccine, influenza virus (completed) 09-04-2010 - [facility] Split-Non Spec vaccine, unspecified 09-04-2010 (4419 [id number]) formulation Pneumococcal-13 Vac pneumococcal conjugate (completed) 05-04-2015 - [facility] Conjugate vaccine, 13 valent 05-04-2015 ([id number]) [facility] pneum[facility] ([facility]) [facility], 03-24-2013 (441 [id number]) 23 valent Zostavax zoster vaccine, live (completed) 07-07-2013 - [facility] 07-07-2013 ([id number]) Payers Payer Name Policy Number Location PRIMETIME [id number] [facility] (44 195) The following information is from the original human readable contentNo Payer Records Found Social History Type Social History Date Location Description Tobacco smoking status Former smoker 06-15-2020 - [facility] NHIS 06-15-2020 ([id number]) History of tobacco use Current smoker 11-09-1977 [facility] ([id number]) History of tobacco use Cigarette Smoker 11-09-1977 [facility] ([id number]) Cigarettes smoked 06-15-[address] - [facility] ic current (pack per day) 06-15-2020 ([id number]) - Reported Tobacco use and Never used 06-15-2020 - [facility] exposure 06-15-2020 ([id number]) Alcohol intake Current non-drinker of 06-15-2020 - [facility] alcohol (finding) 06-15-2020 ([id number]) Tobacco Comment Smoked from age [age]. 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 This clinical summary was aggregated from multiple sources. Caution should be exercised in using it in the provision of clinical care. This summary normalizes information from multiple sources, and as a consequence, information in this document may materially changethe coding, format and clinical context of patient data. In addition, data may be omittedin some cases. CLINICAL DECISIONS SHOULD BE BASED ON THE PRIMARY CLINICAL RECORDS. [facility] provides no warranty or guarantee of the accuracy or completeness of information in this document. UNRECOGNIZED CONTENT PROVIDED BELOW FOR UNRECOGNIZED SECTION Source Comments In the event this information is protected by the Federal Confidentiality of Alcohol and Drug Abuse Patient Records regulations: The Federal rules restrict any use of the information to criminally investigate or prosecute any alcohol or drug abuse patient.[facility] the event this information is protected by the Federal Confidentiality of Alcohol and Drug Abuse Patient Records regulations: The Federal rules restrict any use of the information to criminally investigate or prosecute any alcohol or drug abuse patient.[facility] the event this information is protected by the Federal Confidentiality of Alcohol and Drug Abuse Patient Records regulations: The Federal rules restrict any use of the information to criminally investigate or prosecute any alcohol or drug abuse patient.[facility] the event this information is protected by the Federal Confidentiality of Alcohol and Drug Abuse Patient Records regulations: The Federal rules restrict any use of the information to criminally investigate or prosecute any alcohol or drug abuse patient.[facility] Center[facility] the event this information is protected by the Federal Confidentiality of Alcohol and Drug Abuse Patient Records regulations: The Federal rules restrict any use of the information to criminally investigate or prosecute any alcohol or drug abuse patient.[facility] Center[facility] the event this information is protected by the Federal Confidentiality of Alcohol and Drug Abuse Patient Records regulations: The Federal rules restrict any use of the information to criminally investigate or prosecute any alcohol or drug abuse patient.[facility] Center[facility] the event this information is protected by the Federal Confidentiality of Alcohol and Drug Abuse Patient Records regulations: The Federal rules restrict any use of the information to criminally investigate or prosecute any alcohol or drug abuse patient.[facility] Center[facility] the event this information is protected by the Federal Confidentiality of Alcohol and Drug Abuse Patient Records regulations: The Federal rules restrict any use of the information to criminally investigate or prosecute any alcohol or drug abuse patient.[facility] Center[facility] the event this information is protected by the Federal Confidentiality of Alcohol and Drug Abuse Patient Records regulations: The Federal rules restrict any use of the information to criminally investigate or prosecute any alcohol or drug abuse patient.[facility] CenterIn the event this information is protected by the Federal Confidentiality of Alcohol and Drug Abuse Patient Records regulations: The Federal rules restrict any use of the information to criminally investigate or prosecute any alcohol or drug abuse patient.[facility] CenterIn the event this information is protected by the Federal Confidentiality of Alcohol and Drug Abuse Patient Records regulations: The Federal rules restrict any use of the information to criminally investigate or prosecute any alcohol or drug abuse patient.[facility] CenterIn the event this information is protected by the Federal Confidentiality of Alcohol and Drug Abuse Patient Records regulations: The Federal rules restrict any use of the information to criminally investigate or prosecute any alcohol or drug abuse patient.[facility] CenterIn the event this information is protected by the Federal Confidentiality of Alcohol and Drug Abuse Patient Records regulations: The Federal rules restrict any use of the information to criminally investigate or prosecute any alcohol or drug abuse patient.[facility] CenterIn the event this information is protected by the Federal Confidentiality of Alcohol and Drug Abuse Patient Records regulations: The Federal rules restrict any use of the information to criminally investigate or prosecute any alcohol or drug abuse patient.[facility] UNRECOGNIZED CONTENT PROVIDED BELOW FOR UNRECOGNIZED SECTION Reason for Visit Reason Onset Date Comments Insurance Authorization 06/22/2020 Tadalafil Reason Onset Date Comments Transfusion 06/29/2020 Reason Onset Date Comments Appointment 06/12/2020 UNRECOGNIZED CONTENT PROVIDED BELOW FOR UNRECOGNIZED SECTION Miscellaneous Notes Telephone Encounter - Malachi Leach LPN - 06/26/2020 3:12 PM EDTApproval recieved and sent to scanning. Stacey Leach LPN elephone Encounter - Vadim Lagunas - 06/22/2020 1:48 PM EDTStephanie / [facility] returned call stating medication has been approved. She will fax details. elephone Encounter - Malachi Leach LPN - 06/22/2020 10:03 AM EDTPrior Authorization has been completed online at [employer] for Tadalafil, will await response. ORTEGA- [id number] Please keep encounter open until final decision has been received and documented from insurance company. Stacey Leach LPN documented in this encounterTelephone Encounter - Margot De La Rosa LPN - 06/29/2020 12:20 PM EDTPatient scheduled for 2 units PRBC's 06/30/2020 @ 0900, [facility]. Orders faxed. Patient and lab aware. Margot De La Rosa LPN documented in this encounterTelephone Encounter - Patricia Poe LPN - 06/12/2020 12:56 PM EDTLEFT MESSAGE FOR PATIENT TO CALL OFFICE. elephone Encounter - Patricia Poe LPN - 06/12/2020 12:46 PM EDTPlease schedule 3 month follow up Mauro Moreno PA-C documented in this encounter UNRECOGNIZED CONTENT PROVIDED BELOW FOR UNRECOGNIZED SECTION No Status Records Found UNRECOGNIZED CONTENT PROVIDED BELOW FOR UNRECOGNIZED SECTION INFORMATION SOURCE DATE CREATED AUTHOR AUTHOR'S ORGANIZATIO N 07/27/2020 [facility] Roberto Carlos bradley
== END ==
PROVIDERS: PCP Physician Assistant; Referring Provider Internal Medicine Hematology & Oncology; Visit Provider Internal Medicine Hematology & Oncology
DX: D46.9 Myelodysplastic syndrome, unspecified (principal)
CPT/HCPCS: 36430; 86850; 86900; 86901; 86920; 86921; 86922; J7040; P9016

== ENCOUNTER → 2020-04-21 10:32 | Outpatient (CLI) | payer MEDICARE, SELFPAY ==
[2020-03-24 09:17] VITALS: BMI 24.8
[2020-04-21 11:00] VITALS: BP 142/58; PULSE 69; RESP 16; TEMP 36.1; O2SAT 100; BMI 24.8
[2020-04-21] MEDS: 0.9% NaCl VAD Flush IV (11:00)
[2020-04-21 11:26] VITALS: BP 142/58; PULSE 69; RESP 16; TEMP 35.7; O2SAT 100
[2020-04-21 11:41] VITALS: BP 130/52; PULSE 65; RESP 16; TEMP 35.8; O2SAT 100
[2020-04-21 12:41] VITALS: BP 129/58; PULSE 59; RESP 16; TEMP 35.7; O2SAT 100
[2020-04-21 13:21] VITALS: BP 148/58; PULSE 65; RESP 16; TEMP 35.4; O2SAT 100
[2020-04-21 13:37] VITALS: BP 148/58; PULSE 65; RESP 16; TEMP 35.4; O2SAT 100
--- OUTSIDE RECORDS SUMMARY | 2020-08-27 12:30 | XMS RPT_ITS | CCD ---
:1945 External Reference #:[id number] Author Organization [facility] Care Team Providers Name Role Phone Silas Carter) Primary Care Provider Allergies Reported Allergen Reaction(s) Severity Date of Onset Location antibiotics [Other] Other: See Comments 03-15-2011 - [place] [facility] ([id number]) fluticasone / salmeterol Other: See Comments 1 - [facility] ([id number]) PARoxetine Other: See Comments [facility] ([id number]) Sulfamethoxazole GI Upset 01-20-2013 - [facility] ([id number]) Medications Medication Name Sig Date Prescriber Location Acetaminophen acetaminophen (TYLENOL EXTRA Ccf Provide r [facility] STRENGTH) 500 mg tablet ([id number]) Indications: MDS (myelodysplastic syndrome), low grade (HCC) Take 1,000 mg by mouth as needed. 0 Active Comment: Take 1,000 mg by mouth as ne eded. Albuterol albuterol HFA (VENTOLIN HFA) 06-02-2018 Quincy hollingsworth-Victoria) [facility] 90 mcg/actuation inhaler Raul ([id number] 195) Inhale 2 Puffs as instructed every 4 hours as needed for Wheezing/Shortness of Breath. 1 Inhaler 2 06/02/2018 Active Comment: Inhale 2 Puffs as instructed every 4 hours as needed for Wheezing/Shortness of Breath. Calcium Carbonate calcium carbonate 06-12-2020 Quincy Yuan) [place] [facility] (CALCIUM ANTACID) Raul ([id number]) 500 mg chew Take 1-2 tablets by mouth once daily. 0 06/12/2020 Active Comment: Take 1-2 tablets by mouth on ce daily. Cephalexin cephALEXin (KEFLEX) 06-12-2020 - Quincy Yuan) [facility] 500 mg capsule 06-15-2020 Carter Quincy Rosen ([id number]) Indications: E. coli (Pa-C) Carter UTI Take 1 capsule by mouth every 8 hours. Started 06/02/20 21 capsule 0 06/12/2020 06/15/2020 Discontinued Comment: Take 1 capsule by mouth ever y 8 hours. Started 06/02/20 Cholecalciferol cholecalciferol (VITAMIN 06-12-2020 Quincy Rojas) [facility] D-3) 5,000 unit tab Carter ([id number]) Indications: MDS (myelodysplastic syndrome), low grade (HCC) Take 1 tablet by mouth once daily. 0 06/12/2020 Active Comment: Take 1 tablet by mouth once daily. COMPOUNDED COMPOUNDED 03-31-2018 Quincy Rosen [facility] PRESCRIPTION PRESCRIPTION (Niels-Victoria) Carter ([id number]) Indications: Stasis edema of both lower extremities Compression stockings 30-40mmHg 2 pairs Stasis edema of both lower extremities (primary encounter diagnosis) 1 Each 0 03/31/2018 Active COMPOUNDED PRESCRIPTION 03-31-2018 Quincy Yuan) [facility] ([id number]) Indications: Stasis edema of Carter both lower extremities Compression stockings 30-40mmHg 2 pairs Stasis edema of both lower extremities (primary encounter diagnosis) 1 Each 0 03/31/2018 Active COMPOUNDED PRESCRIPTION 03-31-2018 Quincy Yuan) [facility] ([id number]) Indications: Stasis edema of Carter both lower extremities Compression stockings 30-40mmHg 2 pairs Stasis edema of both lower extremities (primary encounter diagnosis) 1 Each 0 03/31/2018 Active COMPOUNDED PRESCRIPTION 03-31-2018 Quincy Yuan) [facility] ([id number]) Indications: Stasis edema of Carter both lower extremities Compression stockings 30-40mmHg 2 pairs Stasis edema of both lower extremities (primary encounter diagnosis) 1 Each 0 03/31/2018 Active COMPOUNDED PRESCRIPTION 03-31-2018 Quincy Yuan) [facility] ([id number]) Indications: Stasis edema of Carter both lower extremities Compression stockings 30-40mmHg 2 pairs Stasis edema of both lower extremities (primary encounter diagnosis) 1 Each 0 03/31/2018 Active COMPOUNDED PRESCRIPTION 03-31-2018 Quincy Dave-Victoria) [facility] ([id number]) Indications: Stasis edema of Carter both lower extremities Compression stockings 30-40mmHg 2 pairs Stasis edema of both lower extremities (primary encounter diagnosis) 1 Each 0 03/31/2018 Active COMPOUNDED PRESCRIPTION 03-31-2018 Quincy Dave-Victoria) [facility] ([id number]) Indications: Stasis edema of Carter both lower extremities Compression stockings 30-40mmHg 2 pairs Stasis edema of both lower extremities (primary encounter diagnosis) 1 Each 0 03/31/2018 Active COMPOUNDED PRESCRIPTION 03-31-2018 Quincy Dave-C) [facility] ([id number]) Indications: Stasis edema of Carter both lower extremities Compression stockings 30-40mmHg 2 pairs Stasis edema of both lower extremities (primary encounter diagnosis) 1 Each 0 03/31/2018 Active COMPOUNDED PRESCRIPTION 03-31-2018 Quincy Dave[facility] ([id number]) Indications: Stasis edema of Carter both lower extremities Compression stockings 30-40mmHg 2 pairs Stasis edema of both lower extremities (primary encounter diagnosis) 1 Each 0 03/31/2018 Active COMPOUNDED PRESCRIPTION 03-31-2018 Quincy Yuan) [facility] ([id number]) Indications: Stasis edema of Carter both lower extremities Compression stockings 30-40mmHg 2 pairs Stasis edema of both lower extremities (primary encounter diagnosis) 1 Each 0 03/31/2018 Active COMPOUNDED PRESCRIPTION 03-31-2018 Quincy Dave-Victoria) [facility] ([id number]) Indications: Stasis edema of Carter both lower extremities Compression stockings 30-40mmHg 2 pairs Stasis edema of both lower extremities (primary encounter diagnosis) 1 Each 0 03/31/2018 Active COMPOUNDED PRESCRIPTION 03-31-2018 Quincy Dave-Victoria) [facility] ([id number]) Indications: Stasis edema of Carter both lower extremities Compression stockings 30-40mmHg 2 pairs Stasis edema of both lower extremities (primary encounter diagnosis) 1 Each 0 03/31/2018 Active COMPOUNDED PRESCRIPTION 03-31-2018 Quincy Dave-C) [facility] ([id number]) Indications: Stasis edema of Carter both lower extremities Compression stockings 30-40mmHg 2 pairs Stasis edema of both lower extremities (primary encounter diagnosis) 1 Each 0 03/31/2018 Active COMPOUNDED PRESCRIPTION 03-31-2018 Quincy Yuan) [facility] ([id number]) Indications: Stasis edema of Carter both lower extremities Compression stockings 30-40mmHg 2 pairs Stasis edema of both lower extremities (primary encounter diagnosis) 1 Each 0 03/31/2018 Active [facility]OUND[facility]-31-[facility][id number][facility] Indications: Stasis edema of Carter both lower extremities Compression stockings 30-40mmHg 2 pairs Stasis edema of both lower extremities (primary encounter diagnosis) 1 Each 0 03/31/2018 Active COMPOUNDED PRESCRIPTION 03-31-2018 Quincy Yuan) [facility] ([id number]) Indications: Stasis edema of Carter both lower extremities Compression stockings 30-40mmHg 2 pairs Stasis edema of both lower extremities (primary encounter diagnosis) 1 Each 0 03/31/2018 Active Comment: Compression stockings 30-40m mHg 2 pairs Stasis edema of both lower e xtremities (primary encounter diagnosis) Cranberry preparation Cranberry 400 mg 06-12-2020 Quincy Rosen (Diaz ) [facility] cap Take 4 capsules Carter ([id number]) by mouth once daily. 0 06/12/2020 Active Comment: Take 4 capsules by mouth onc e daily. Fluconazole fluconazole 06-12-2020 - Silas Yuan) [facility] (DIFLUCAN) 150 mg 06-13-2020 Raul Rosen ([id number] ) tablet Indications: (Diaz) Raul Dysuria Take 1 tablet by mouth once daily for 1 day. 1 tablet 0 06/12/2020 06/13/2020 Comment: Take 1 tablet by mouth once daily for 1 day. gabapentin gabapentin (NEURONTIN) 05-23-2020 - Silas [facility] 300 mg capsule 08-21-2020 (Diaz) Raul ([id number]) Indications: Chronic midline low back pain without sciatica , Polyneuropathy in other diseases classified elsewhere ([facility]) Take 1 capsule by mouth three times daily for 90 days. 270 capsule 1 05/23/2020 Active Comment: Take 1 capsule by mouth thre e times daily for 90 days. guaiFENesin guaiFENesin (MUCINEX) 06-12-2020 - Quincy Rosen (Diaz) [facility] 600 mg 12 hr tablet 06-15-2020 Raul Rosen ([id number]) Take 2 tablets by (Diaz) Carter mouth twice daily. Started 06/02/20 14 tablet 0 06/12/2020 06/15/2020 Discontinued Comment: Take 2 tablets by mouth twic e daily. Started 06/02/20 montelukast montelukast (SINGULAIR) 02-16-2020 Shaheed Shukla [facility] 10 mg tablet Take 1 (32196) tablet by mouth daily at bedtime. 90 tablet 3 02/16/2020 Active Comment: Take 1 tablet by mouth daily at bedtime. omega-3 fatty acids omega-3 fatty acids 02-27-2017 - Quincy Kessler [facility] (FISH OIL (FISH OIL 06-15-2020 (Diaz) Raul ([id number]) CONCENTRATE) 1,000 CONCENTRATE) 1,000 M Silas mg cap mg cap Take 2 (Diaz) Raul capsules by mouth twice daily. 360 capsule 3 02/27/2017 06/15/2020 Discontinued Comment: Take 2 capsules by mouth twi ce daily. Omeprazole omeprazole (PRILOSEC) 20 mg 06-08-2020 [facility] ([id number]) capsule Take 2 capsules by mouth once daily. 180 capsule 0 06/08/2020 Active Comment: Take 2 capsules by mouth onc e daily. POLYETHYLENE GLYCOL polyethylene glycol 06-12-2020 Quincy Kessler [facility] [id number] (MIRALAX) 17 (Diaz) Raul (55439) gram packet Indications: Chronic constipation Take 1 Packet by mouth once daily. 0 06/12/2020 Active Comment: Take 1 Packet by mouth once daily. tadalafil Tadalafil 2.5 mg tab 06-19-2020 Quincy Rosen (Diaz) [facility] Indications: BPH with Carter ([id number] ) obstruction/lower urinary tract symptoms Take 1 tablet by mouth once daily. 30 tablet 5 06/19/2020 Active Comment: Take 1 tablet by mouth once daily. Vitamin B6 pyridoxine, vitamin B6, (VITAMIN Ccf Prov ider [facility] (27803) B-6) 100 mg tablet Take 100 mg by mouth twice daily. 0 Active Comment: Take 100 mg by mouth twice d aily. Problems Active Problems Category Problem Name Status Date Location Deficiency and other Idiopathic aplastic anemia Active 2016 - [facility] anemia (50129) Diverticulosis and Diverticular disease Active 01-23-2012 - [facility] diverticulitis (03543) Esophageal disorders Gastroesophageal reflux Active 6 - [facility] disease (58422) Intestinal obstruction Intestinal obstruction Active 06-12-20 - 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 disorders with another disorder (34343 ) Pulmonary heart disease Pulmonary hypertension Active 020 - [facility] (23367) Respiratory failure; Acute respiratory failure Active - [facility] insufficiency; arrest (23142 ) (adult) Unclassified Patient encounter status Active 06-02-2020 - [facility] (82208) Unclassified H/O: blood transfusion Active 12-24-2018 - 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 benign neoplasm (98044) Other connective Swelling of limb Completed 05-22-2018 - [facility] tissue disease (93118) Other lower Cough Completed 05-22-2018 - [facility] respiratory disease (26090) Other screening for Monoclonal IgM present Completed 08-14-2015 - [facility] suspected conditions (72954) (not mental disorders or infectious disease) Residual codes; Family history of Completed 01-23-2012 - [facility] unclassified malignant neoplasm of (15601 ) gastrointestinal tract Varicose veins of Venous varices Completed 01-30-2012 - Shasha [facility] lower extremity (71969) Results Result Name Value Range Unit Interpretation Flag Date Location cnpn on 2020-08-23 CNPN Telephone (HEMAWS) Normal 08-23-2020 [facility] LORETA HURST ([id number]) 1945 M [place] Date Time Provider Department ([id number]) 08/23/20 STEVEN AKERS During your visit today, we recorded the following informati on about you: Margot De La Rosa LPN 08/23/2020 11:04 AM Signed Patient scheduled for 1 unit PRBC 08/24/2020 @ [facility], [facility]. Or ders faxed. Patient and lab aware. Margot De La Rosa LPN Allergies As of Date: 08/23/2020 Noted Allergy Reaction ADVAIR DISKUS (FLUTICASONE PROPIO*03/15/2011 [...] for Visit: Transfusion [880] Prescriptions as of 08/23/2020 Sig: TADALAFIL 2.5 MG TABLET Take 1 [...] as nee* Problem List As Of Date 08/23/2020 Noted Resolved Diverticulosis [K57.90] 01/23/2012 Family history [...] by MARGOT DE LA ROSA LPN on 08/23/20 cbc and differential on 2020-08-23 Abs Baso 0.03 <0.11 k/uL Normal 08-23-2020 [facility] (64187) Abs Coffey 0.35 <0.87 k/uL Normal 08-23-2020 [facility] (81951) Abs Neut 3.52 1.45-7.50 k/uL Normal 08-23-2020 [facility] (30777) Absolute nRBC <0.01 <0.01 Normal 08-23-2020 [facility] (97757) Basophils/100 WBC 0.6 % Normal 08-23-2020 [facility] (d) [place] (44830) DTYPE Auto Diff Normal 08-23-2020 [facility] (65725) Eosinophils (d) 0.08 <0.46 k/uL Normal 08-23-2020 [facility] [#/Vol] [place] (28975) Eosinophils/100 WBC 1.6 % Normal 08-23-2020 [facility] (d) [place] (15167) Erythrocyte 22.5 11.5-15.0 % High 08-23-2020 [facility] distribution width [facility] (55518) (RBC) [Ratio] Hematocrit (Bld) 28.0 39.0-51.0 % Low 08-23-2020 [facility] [Volume fraction] [facility] (28049) Hemoglobin (Bld) 9.3 13.0-17.0 g/dL Low 08-23-2020 [facility] [Mass/Vol] [place] (48402) Lymphocytes (Bld) 0.98 1.00-4.00 k/uL Low 08-23-2020 [facility] [#/Vol] [place] (57474) Lymphocytes/100 WBC 19.7 % Normal 08-23-2020 [facility] (Bld) [place] (67906) MCH (RBC) [Entitic 36.3 26.0-34.0 pG High 08-23-2020 [facility] mass] [place] (87707) MCHC (RBC) 33.2 30.5-36.0 g/dL Normal 08-23-2020 [facility] [Mass/Vol] [place] (77233) MCV (RBC) [Entitic 109.4 80.0-100.0 fL High 08-23-2020 [facility] vol] [facility] (88517) Monocytes/100 WBC 7.0 % Normal 08-23-2020 C [facility] (Bld) [place] (58353) Neutrophils/100 WBC 71.1 % Normal 08-23-2020 [facility] (Bld) [place] (56091) NRBCs 0.0 0 /100 WBC Normal 08-23-2020 [facility] (78152) Platelet mean volume 11.2 9.0-12.[address] [facility] (d) [Entitic vol] [place] (95080) Platelets (Bld) 292 150-400 k/uL Normal 08-23-2020 [facility] [#/Vol] [place] (50306) RBC (Bld) [#/Vol] 2.56 4.20-6.00 m/uL Low 08-23-2020 [facility] (51807) WBC (Bld) [#/Vol] 4.98 3.70-11.00 k/uL Normal 08-23-2020 [facility] (58893) cnpn on 2020-07-27 KAYLEEN Telephone (HEMSANTI) Normal 07-27-2020 [facility] LORETA HURST ([id number]) 1945 [facility] Date Time Provider Department () 07/27/20 STEVEN AKERS During your visit today, we recorded the following informati on about you: Marina Martinez Pss 07/27/2020 3:39 PM Signed Please call patient with lab results. He is asking if he nee ds to have treatment tomorrow at [facility]. Margot De La Rosa LPN 07/27/2020 3:54 PM Signed Patient scheduled for 1 unit PRBC's 07/28/2020 @ 1030, [facility]. Orders faxed. Patient and lab aware. [...] Abs Baso 0.03 <0.11 k/uL Normal 07-27-2020 [facility] (67045) Abs Coffey 0.35 <0.87 k/uL Normal 07-27-2020 [facility] (20183) Abs Neut 3.12 1.45-7.50 k/uL Normal 07-27-2020 [facility] (83805) Absolute nRBC <0.01 <0.01 Normal 07-27-2020 [facility] (35840) Basophils/100 WBC 0.6 % Normal 07-27-2020 [facility] (Bld) [place] (04669) DTYPE Auto Diff Normal 07-27-2020 [facility] (51875) Eosinophils (Bld) 0.06 <0.46 k/uL Normal 07-27-2020 [facility] [#/Vol] [place] (86443) Eosinophils/100 WBC 1.3 % Normal 07-27-2020 [facility] (Bld) [place] (39699) Erythrocyte 22.4 11.5-15.0 % High 07-27-2020 [facility] distribution width [facility] (02461) (RBC) [Ratio] Hematocrit (Bld) 26.8 39.0-51.0 % Low 07-27-2020 [facility] [Volume fraction] [facility] (17537) Hemoglobin (Bld) 8.9 13.0-17.0 g/dL Low 07-27-2020 Cl [facility] [Mass/Vol] [place] (12129) Lymphocytes (Bld) 1.06 1.00-4.00 k/uL Normal 07-27-2020 C [facility] [#/Vol] [place] (22737) Lymphocytes/100 WBC 22.9 % Normal 07-27-2020 [facility] (Bld) [place] (57866) MCH (RBC) [Entitic 34.6 26.0-34.0 pG High 07-27-2020 [facility] mass] [place] (48436) MCHC (RBC) 33.2 30.5-36.0 g/dL Normal 07-27[facility] [[facility] [place] (17143) MCV (RBC) [Entitic 104.3 80.0-100.0 fL High 07-27-2020 [facility] vol] [place] (92973) Monocytes/100 WBC 7.6 % Normal 07-27-2020 C [facility] (d) [place] (91205) Neutrophils/100 WBC 67.6 % Normal 07-27-2020 [facility] (Bld) [place] (16661) NRBCs 0.0 0 /100 WBC Normal 07-27-2020 [facility] (49106) Platelet mean volume 10.2 9.0-12.[address] [facility] (d) [Entitic vol] [place] (20855) Platelets (Bld) 260 150-400 k/uL Normal 07-27-2020 [facility] [#/Vol] [place] (40007) RBC (Bld) [#/Vol] 2.57 4.20-6.00 m/uL Low 07-27-2020 [facility] (32919) WBC (Bld) [#/Vol] 4.62 3.70-11.00 k/uL Normal 07-27-2020 [facility] (75091) cnpn on 2020-06-29 CNPN Telephone (HEMAWS) Normal 06-29-2020 [place] [facility] LORETA HURST ([id number]) 1945 M [place] Date Time Provider Department (89808) 06/29/20 STEVEN AKERS During your visit today, we recorded the following informati on about you: Margot De La Rosa LPN 06/29/2020 12:23 PM Signed Patient scheduled for 2 units PRBC's 06/30/2020 @ 09, [facility]. Orders faxed. Patient and lab aware. [...] Abs Baso 0.03 <0.11 k/uL Normal 06-29-2020 [facility] (47163) Abs Coffey 0.33 <0.87 k/uL Normal 06-29-2020 [facility] (81717) Abs Neut 2.72 1.45-7.50 k/uL Normal 06-29-2020 [facility] (18206) Absolute nRBC <0.01 <0.01 Normal 06-29-2020 [facility] (74564) Basophils/100 WBC 0.7 % Normal 06-29-2020 [facility] ([facility]) [place] (53468) DTYPE Auto Diff Normal 06-29-2020 [facility] (45277) Eosinophils (Bld) 0.06 <0.46 k/uL Normal 06-29-2020 C [facility] [#/Vol] [place] (12407) Eosinophils/100 WBC 1.4 % Normal 06-29-2020 [facility] (Bld) [place] (20796) Erythrocyte 21.1 11.5-15.0 % High 06-29-2020 [facility] distribution width [facility] (38819) (RBC) [Ratio] Hematocrit (Bld) 28.0 39.0-51.0 % Low 06-29-2020 [facility] [Volume fraction] [facility] (41559) Hemoglobin (Bld) 9.2 13.0-17.0 g/dL Low 06-29-2020 [facility] [Mass/Vol] [place] (35196) Lymphocytes (Bld) 1.27 1.00-4.00 k/uL Normal 06-29-2020 [facility] [#/Vol] [place] (41870) Lymphocytes/100 WBC 28.7 % Normal 06-29-2020 [facility] (Bld) [place] (68476) MCH (RBC) [Entitic 33.7 26.0-34.0 pG Normal 06-29-2020 [facility] mass] [place] (78454) MCHC (RBC) 32.9 30.5-36.0 g/dL Normal 06-29-2020 [facility] [Mass/Vol] [place] (87487) MCV (RBC) [Entitic 102.6 80.0-100.0 fL High 06-29-2020 [facility] vol] [place] (19738) Monocytes/100 WBC 7.5 % Normal 06-29-2020 C [facility] (Bld) [place] (01062) Neutrophils/100 WBC 61.7 % Normal 06-29-2020 [facility] (Bld) [place] (12517) NRBCs 0.0 0 /100 WBC Normal 06-29-2020 [facility] (42705) Platelet mean volume 10.8 9.0-12.[address] [facility] (d) [Entitic vol] [place] (31127) Platelets (Bld) 270 150-400 k/uL Normal 06-29-2020 [facility] [#/Vol] [place] (69842) RBC (Bld) [#/Vol] 2.73 4.20-6.00 m/uL Low 06-29-2020 [facility] (47922) WBC (Bld) [#/Vol] 4.42 3.70-11.00 k/uL Normal 06-29-2020 [facility] (70572) No panel information on 2020-06-29 [employer] [place] Off-Supine 430.0 min 2.4 0 06-29-2020 [facility] ([facility]) [employer] Total 433.[address] [facility] ([facility]) [employer] [facility] ECG DATA: 06-29-2020 [facility] ([facility]) [employer] [facility] The average heart rate was 62 06-29-2020 [place] [address]) bpm with a range of 55 bpm to 80 bpm. [employer] [facility] ICSD DIAGNOSIS: 06-29-2020 [facility] ([facility]) [employer] [facility] Primary Snoring [R06.83] 0 06-29-2020 [facility] ([facility]) [employer] Sleep Disorder, Unspecified 06-29-2020 [facility] ([facility]) [G47.9] [employer] IMPRESSION: 06-29-2020 [facility] ([facility]) [employer] This study does not confirm 06-29-2020 [facility] ([facility]) absence of sleep apnea. [employer] Given the intrinsic 2019 [facility] ([facility]) limitations of home sleep testing in terms of lack of [employer] detection of sleep time and 06-29-2020 [facility] ([facility]) lack of detection of electroencephalogram-based [employer] arousals to score potentially 06-29-2020 [facility] ([facility]) important respiratory events in addition to [employer] increased possibility of 0 06-29-2020 [facility] ([facility]) unresolved technical issues, the degree of sleep [employer] [facility] Supine 3.[address] [facility] ([facility]) [employer] sleep disordered breathing. 06-29-2020 [facility] ([facility]) [employer] RECOMMENDATIONS: 0 [facility] ([facility]) [facility] This type of sleep study may 06-29-2020 [place] [address]) underestimate the severity of sleep apnea. [employer] Recommend an in-laboratory 06-29-2020 [facility] ([facility]) polysomnogram if sleep apnea remains highly [employer] suspected. 06-29-2020 [facility] ([facility]) [employer] INTERPRETING PHYSICIAN: [facility] ([facility]) [employer] I attest that I have performed 06-29-2020 [facility] ([facility]) epoch by epoch review of the entire raw data. [employer] [facility] Araceli Morales MD, MS, [facility], 06-29-2020 [facility] ([facility]) [facility] Diplomate of the [place] 06-29-2020 [facility] ([facility]) Board of Sleep Medicine Ship Ceiler 06-29-2020 [facility] ([facility]) Ship Ceiler Report Digitally Signed By: 06-29-2020 [facility] ([facility]) Ship Ceiler ARACELI MORALES M.D. (06/29/2020 06-29-2020 [facility] ([facility]) 6:05:14 PM) Ship Ceiler Time MYRTLE/AHI 06-29-2020 [facility] ([facility]) Ship Ceiler recording time). 0 [facility] ([facility]) Ship Ceiler and 0.9 minutes at oxygen 06-29-2020 [facility] ([facility]) saturation measured at or less than 88% (0.2% of Ship Ceiler ; Fax: 0 06-29-2020 [facility] ([facility]) Ship Ceiler minutes at oxygen saturation [address] ([facility]) measured less than 90% (0.3% of recording time) Ship Ceiler [facility] Sleep [facility] ([facility]) Disorders Center at [facility] Ship Ceiler per hour of study time. The 06-29-2020 [facility] ([facility]) mean oxygen saturation during the study was Ship Ceiler central) and 17 hypopneas. The 06-29-2020 [facility] ([facility]) respiratory event index (MYRTLE) was 2.4 events Ship Ceiler these events, the total number [address] [place] [address]) of apneas was 0 (0 obstructive, 0 mixed, and 0 Ship Ceiler recording. Snoring was noted. 06-29-2020 [facility] ([facility]) There was a total of 17 respiratory events. Of Ship Ceiler time was 433 minutes. By 0 06-29-2020 [facility] (93175) convention, sleep is assumed for the whole Ship Ceiler The study started at 22:19:28 06-29-2020 [facility] (69596) and ended at 05:32:55 and the total recording Ship Ceiler RESPIRATORY DATA: 06-29-20 [facility] (51265) Ship Ceiler equal to 4% oxygen [facility] (95353) desaturation from pre-event baseline. Ship Ceiler the =30% drop in signal [facility] (17580) excursion is =10 seconds. There is a greater than or Ship Ceiler study) or an alternative 0 06-29-2020 [facility] (46802) hypopnea sensor (diagnostic study). The duration of Ship Ceiler baseline using nasal pressure 06-29-2020 [facility] (78479) (diagnostic study), PAP device flow (titration Ship Ceiler Hypopnea definition: The peak 06-29-2020 [facility] (16584) signal excursions drop by =30% of pre-event Ship Ceiler duration of the >90% drop in 06-29-2020 [facility] ([facility]) signal excursion is =10 seconds. Ship Ceiler (titration study) or an [facility] (26081) alternative apnea sensor (diagnostic study). The Ship Ceiler baseline using an oronasal 06-29-2020 [facility] (48313) thermal sensor (diagnostic study), PAP device flow Ship Ceiler Apnea definition: The peak 06-29-2020 [facility] (13422) signal excursions drop by >90% of pre-event Ship Ceiler the AASM Manual for Scoring of 06-29-2020 [facility] ([facility]) Sleep and Associated Events version 2.5. Ship Ceiler accurate index of respiratory 06-29-2020 [facility] ([facility]) events. The MYRTLE is a surrogate of the AHI per Ship Ceiler test. Since the home sleep 06-29-2020 [facility] (40864) apnea test does not measure sleep, the MYRTLE is most Ship Ceiler index has been replaced by the 06-29-2020 [facility] ([facility]) respiratory event index for home sleep apnea Ship Ceiler events x 60 / TRT (total 0 06-29-2020 [facility] (32210) recording time in minutes). Note: the apnea hypopnea Ship Ceiler MYRTLE definition: Respiratory 06-29-2020 [facility] ([facility]) event index (MYRTLE), calculated as respiratory Ship Ceiler apnea reflected in this study 06-29-2020 [facility] ([facility]) may be an underestimate of the true degree of Ship Ceiler pressure transducer, snoring 06-29-2020 [facility] ([facility]) via nasal pressure transducer, chest and Ship Ceiler rate, oxygen saturation, 0 06-29-2020 [facility] ([facility]) continuous airflow with thermistor and nasal Ship Ceiler a registered sleep [address] [place] [address] ([facility]) technologist. The monitored parameters included heart Ship Ceiler and was unattended. The [facility] ([facility]) patient was instructed on proper use of the device by Ship Ceiler Procedure: This study was 06-29-2020 [facility] ([facility]) performed using a Type III ambulatory PSG device Ship Ceiler Sleep procedure: PSG 06-29 [facility] ([facility]) unattended Type III, minimum of 4 parameters (67155) Ship Ceiler Medications: Tylenol, Ventolin 06-29-2020 [facility] ([facility]) HFA, Neurontin, Singulair, Prilosec Ship Ceiler failure with hypoxia 06-29 [facility] ([facility]) Ship Ceiler Myelodysplastic syndrome, 06-29-2020 [facility] ([facility]) Pulmonary hypertension, Polyneuropathy, Respiratory Ship Ceiler Past medical history: Allergic 06-29-2020 [facility] ([facility]) rhinitis, Anxiety, Depression, GERD, Ship Ceiler throat. The patient endorses 06-29-2020 [facility] ([facility]) being a habitual side sleeper. Ship Ceiler snorting, multiple awakenings [address] [place] [address] ([facility]) from sleep, and waking up with dry mouth/sore Ship Ceiler sleepiness, fatigue, snoring, 06-29-2020 [facility] ([facility]) witnessed apneas, waking up choking, gasping, Ship Ceiler Sleep history: The patient is 06-29-2020 [facility] ([facility]) a 75 year old male with a history of daytime Ship Ceiler Referring Provider: Quincy CARTER 06-29-2020 [facility] ([facility]) Mailcode: WO10 Ship Ceiler 93.0%, with a minimum oxygen 06-29-2020 [facility] ([facility]) saturation of 90.0%. The patient spent 1.4 Ship Ceiler Age: 75 (: 1945) ESS: 06-29-2020 [facility] (80323) Neck Circ. (cm): 38.0 Ship Ceiler Name: LORETA HURST Date of 06-29-2020 [facility] (16428) Study: 06/20/2020 F#: [id number] Ship Ceiler Home Sleep Apnea Test (HSAT) 06-29-2020 [facility] (39792) Study Report Ship Ceiler [address], 06-29-2020 [facility] ([address]) [place] [address] Ship Ceiler abdominal effort, and body 06-29-2020 [facility] (51755) position. progress on 2020-06 PROGRESS HNO ID: [id number] Normal 06-26-2020 [facility] Author: Alexia Mancera [facility] ([id number]) Service: ? Author Type: ? Type: Progress Notes Filed: 06/26/2020 9:26 AM Note Text: Sleep Study Check-In Documentation Date: June 26, 2020 Name: Danilorosalinda Gaitan Aris Comments: HST was returned in working order with all sleep q uestionjose Mancera [facility] on 2020-06-22 CNPN Telephone (FAMPWS) Normal 06-22-2020 [facility] ARISDANILOROSALINDA Arnie ([id number]) 1945 [facility] Time Provider Department (54946) 06/22/20 [facility] During your visit today, we recorded the following informati on about you: Malachi Leach LPN 06/22/2020 10:04 AM Signed Prior Authorization has been completed online at [employer] for Tadalafil, will await response. ORTEGA- [id number] Please keep encounter open until final decision has been rec eived and documented from insurance company. SILVANA Coleman 06/22/2020 1:51 PM Signed [facility] returned call stating me dication has been [...] Fully Assessed Reason for Visit: Insurance Authorization [[id number]] Cmt: Tadalafil Prescriptions as of 06/22/2020 Sig: [...] 06/26/20 progress on 2020-06 PROGRESS HNO ID: [id number] Normal 06-19-2020 [facility] Author: Martha [facility] ([id number]) Service: ? Author Type: ? 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 Request/Comment: - Specimen received in preservative Critically 06-15-2020 [facility] identified Cx Nom Culture Result - <10,000 CFU /ml Enterococcus faecalis --> ABNORMAL ALERT Cephalosporins, clindamycin, and TMP-SMX are not effective for the treatment of enterococcal infections. --> ABNORMAL AL abnormal Clinic (U) ERT Insignificant colony count. No further workup. --> ABNOR MAL ALERT [facility] ([id number]) Comment: Performed By: #### URCUL ### #[facility] [id number] [place], [place] [phone] progress on 2020-06 PROGRESS HNO ID: [id number] Normal 06-15-2020 [facility] Author: Steven Akers [facility] Service: ? [facility] Author Type: Physician ([id number]) Type: Progress Notes Filed: 06/15/2020 9:59 AM [...] oncologic management. Interim history: Was admitted to [facility] ICU for 3 days for urosepsis last week Patricia mejía. Had dysuria and fever to 104.5. Symptoms [...] No jaundice or rash. No petechiae. 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 No focal motor [...] Abs Lymph 1.00 - 4.00 k/uL 1.23 Coffey% % 11.0 Abs Coffey <0.87 k/uL 0.75 Eosin% % 3.0 Abs [...] Staff Review Reviewed by Fausto Meyer MD ([id number]) R eviewed by Virgilio Fletcher M.D. ([id number]) Reviewed by Fausto Meyer MD ([id number]) Reviewed by Liz Estrella MD ([id number]) Reviewed by Josep coffman MD.([id number]) Reviewed by Virgilio Fletcher M.D. ([id number]) Reviewed by Annie Sanches MD. ([id number]) Reviewed by Michelle Cruz MD PhD ([id number]) Component Latest Ref Rng AND Units 07/14/2015 11/24/2015 06/11/20 16 04/28/2017 11/13/2017 08/13/2018 06/17/2019 06/08/2020 MPA IgG, Serum 717 - 1,411 mg/dL 785 779 MPA IgA, Serum 78 - 391 mg/dL 186 223 MPA IgM, Serum 53 - 334 mg/dL 450 (H) 517 (H) [place] Free, Serum 3.30 - 19.40 mg/L 22.0 [...] (MPA) SEE COMMENT SEE COMMENT Staff Review ([facility]) Reviewed by Annie Sanches MD. ([id number] [id number]) Reviewed by Liz Estrella MD ([id number]) PATHOLOGY: Bone marrow biopsy 08/2018: BONE MARROW, [...] in-situ hybridization tests have been determined by [facility]'s Fritz Mirza [facility] ([facility]) in a manner consistent with CLIA requirements. One or more of t hese tests have not been cleared or approved by the FDA. [facility] is regulate d under CLIA as qualified [...] Procedure Results and Interpretation Lab Analysis No: [id number] DIAGNOSIS: 46,XY[20] INTERPRETATION: Normal, male karyotype COMMENT: [...] comments: Please see bone m arrow report [id number]. Viability: 99%. ? ? Results: Marker ? [...] treatment with azacitadine. Al so had offered [id number] trial--declined. He prefers periodic transfusion. Plan: -Continue [...] months. Steven Akers, DO PROGRESS HNO ID: [id number] Normal 06-15-2020 [facility] Author: Junior Blancas III [facility] Service: ? [facility] Author Type: Physician ([id number]) Type: Progress Notes Filed: 06/26/2020 9:26 AM Note Text: June 15, 2020 Standing PSG Orders signed in the last 90 days None Future PSG Orders signed in the last 90 days Ordered Auth. provider HOME SLEEP APNEA TEST (HSAT) [[id number]] 06/12/20 Quincy Carter (P a-C) Assoc. diagnoses: Pulmonary hypertension, [...] to the plan Junior Blancas III, PhD, [facility] cnovsp on 6 CNOVSP Visit (SP) Office (DEMI) Normal [facility] LORETA HURST ([id number]) 1945 M [facility] Date Time Provider Department ([id number]) 06/15/20 9:50 AM STEVEN AKERS During your [...] oncologic management. Interim history: Was admitted to [facility] ICU for 3 days for urosepsis [...] No jaundice or rash. No petechiae. 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 No focal motor [...] Abs Lymph 1.00 - 4.00 k/uL 1.23 Coffey% % 11.0 Abs Coffey <0.87 k/uL 0.75 Eosin% % 3.0 Abs [...] Staff Review Reviewed by Fausto Meyer MD ([id number]) Reviewed by Virgilio Fletcher M.D. ([id number]) Reviewed by Fausto jean MD ([id number]) Reviewed by Liz Estrella MD (87659) Reviewe d by Josep Cruz MD.([id number]) Reviewed by Virgilio Fletcher M.D. ([id number]) Reviewed by Annie Sanches MD. ([id number] [id number]) Reviewed by Michelle Cruz MD PhD ([id number]) Component Latest Ref Rng AND Units 07/14/2015 11/24/2015 06/11/2016 04/28/2017 11/13/2017 08/13/2018 06/17/2019 06/08/2020 MPA IgG, Serum 717 - 1,411 mg/dL 785 779 MPA IgA, Serum 78 - 391 mg/dL 186 223 MPA IgM, Serum 53 - 334 mg/dL 450 (H) 517 (H) [place] Free, Serum 3.30 - 19.40 mg/L 22.0 [...] (MPA) SEE COMMENT SEE COMMENT Staff Review ([facility]) Reviewed by Annie Sanches MD. ([id number]) Reviewed by Liz Estrella MD ([id number]) PATHOLOGY: Bone marrow biopsy 08/2018: BONE MARROW, [...] in-situ hybridization tests have been determined by [facility] ([facility]) in a manner consistent with CLIA requirements. One or more of these tests have not been cleared or approved by the FDA. [facility] is regula zackery under CLIA as qualified [...] Procedure Results and Interpretation Lab Analysis No: [id number] DIAGNOSIS: 46,XY[20] INTERPRETATION: Normal, male karyotype COMMENT: [...] comments: Please see bone m arrow report [id number]. Viability: 99%. ? ? Results: Marker ? [...] treatment with azacitadine. Al so had offered [id number] trial--declined. He prefers periodic transfusion. Plan: -Continue [...] Steven Akers DO Referring Provider: STEVEN AKERS [[id number]] Allergies As of Date: 06/15/2020 Noted Allergy [...] Sandra Jun 15, 2020 9:37 AM Completed MUCINEX [...] 06/15/20 progress on 2020-06 PROGRESS HNO ID: [id number] Normal 06-14-2020 [facility] Author: Montse Rodríguez [facility] ([id number]) Service: ? Author Type: ? Type: Progress Notes Filed: 06/26/2020 9:26 AM Note Text: June 14, 2020 An order has been received for Home Sleep Apnea Test (HSAT) from darrick Castrejon. [facility] Staff. Visit prep complete. Comments :No The sleep study is scheduled for 06/20. Insurance: Payor: PRIMETIME / Plan: PRIMETIME HMO POS / Prod uct Type: HMO / Payor/Plan Subscr Sex Relation Sub. Ins. ID Effective Gr oup Num 1. PRIMETIME - P* LORETA HURST R 1945 Male Self [id number] 11[birth year]19 [id number] [address] Montse Rodríguez [facility] progress on 2020-06 PROGRESS HNO ID: [id number] Normal 06-12-2020 [facility] Author: Quincy Rosen (Pa-C) Ra[facility] ([id number]) Service: ? Author Type: Physician Event Organizer Type: Progress Notes Filed: 06/12/2020 12:26 PM Note Text: There were no vitals taken for this visit. This Team Access Model visit is a virtual encounter. It requ ired patient-provider interaction for the medical decision making as documented below. Patient was offered a virtual/telemedicine appointment in li eu of an office visit due to [...] gammopathy GERD HTN Polyneuropathy Pre-admit info: 05/30/20 [facility] ED dysuria x 2 days, started on Keflex in ED 2 d ays prior with UC + E. Coli. Developed fever 102F, cough, chest pain increa sed by urinating, radiating down right arm into hand, constant x 3 days, mild SOB, COLEMAN. Also leg swelling but not wearing compression stock ings. Constipation with abdominal distention. T104.5, 15 7/59-90-2 3, 77%. EKG ST vr95, NS ST. CXR left basilar atelectasis. Chest CTA: neg ative for emboli, diffuse interstitial pulm edema. Negative: COVID-19, d-dimer 1.01, troponin <0.015, lactic acid 1.4, INR 1.4. Positives: WBC 9. 2 but elevated abs neut 8.4, low abs lymph0.26, H+H 8.4/24.9; Na 130, glu 1 31, ALT 72, AST 47. Hospital Course: Consults: ID Dr. Fritz Raygoza, Pulquincy Will Stared ceftriaxone in ED. Nocturnal desats: [...] left ankle/ foot. 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 Will. Wears breath-right strips, can't sleep [...] upper extremity - COLONOSCOP W/ OR W/O [facility] SPEC 2002 Colonoscopy - COLONOSCOP W/ OR [...] on progress: agrees to notify me through mychart F/u in 3 months otherwise. Quincy Carter PA-C 11:40a 43 minute visit Quincy Carter [facility]-C [facility]) Normal 06-12-2020 [facility] LORETA HURST ([id number]) 1945 [facility] Date Time Provider Department ([id number]) 06/12/20 Quincy CARTER) [facility] During your visit today, we recorded the following informati on about you: Patricia Poe LPN 06/12/2020 12:46 PM Signed Please schedule 3 month follow up ThanksMauro PA-C Julia Russell LPN 06/12/2020 12:57 PM [...] Albumin [Mass/Vol] 4.10 3.37-4.23 gm/dL Normal 06-08-2020 [facility] (39058) Comment: Performed By: #### SERMPA, B 2M, SEPG ####[place] [address] [phone] Alpha 1 Globulin 0.28 0.18-0.31 gm/dL Normal 06-08-2020 [facility] (08335) Comment: Performed By: #### SERMPA, B 2M, SEPG ####[place] [address] [phone] Alpha 2 Globulin 0.66 0.52-0.97 gm/dL Normal 06-08-2020 [facility] (73919) Comment: Performed By: #### SERMPA, B 2M, SEPG ####[place] [address] [phone] Beta Globulin 0.57 0.84-1.36 gm/dL Low 06-08-2020 [facility] (93797) Comment: Performed By: #### SERMPA, B 2M, SEPG ####[place] [address] [phone] Gamma Globulin 1.09 0.70-1.44 gm/dL Normal 06-08-2020 [facility] (54243) Comment: Performed By: #### SERMPA, B 2M, SEPG ####[address] [place] [address] [phone] Interpretation SEE COMMENT Normal 06-08-2020 [facility] (97112) Comment: Result Comment: An M protein is identified on protein electrophoresis. See separate immunofixation report for characterization of the M protein. Performed By: #### SERMPA, B 2M, SEPG ####[place] [address] [phone] M Ari Concentratn 1) 0.21 (2) 0.38 0.00 Normal [facility] (02979) Comment: Performed By: #### CARLOS B 2M, SEPG ####[place] [address] [phone] Protein [Mass/Vol] Gamma fraction Normal 2019 [facility] (37124) Comment: Performed By: #### SERMPA B 2M, SEPG ####[place] [address] [phone] Protein [Mass/Vol] 6.7 6.3-8.0 g/dL Normal 06-08-2020 [facility] (53268) Comment: Performed By: #### CARLOS B 2M, SEPG ####[place] [address] [phone] SPE Staff Review Reviewed by Michelle Normal 0 06-08-2020 [facility] MD Nancy PhD ([id number]) [facility] (00659) Comment: Performed By: #### CARLOS B 2M, SEPG ####[place] [address] [phone] protein elec,ur rand on 2020-06-08 Albumin [Mass/Vol] 54.7 % Normal 06-08-2020 [facility] (07575) Comment: Performed By: #### UEPG, URM PA ####[address] [place], [place] [phone] Alpha 1 Globulin 5.0 >0 % Normal 06-08-2020 [facility] (20061) Comment: Performed By: #### UEPG, URM PA ####[address] [place], [place] [phone] Alpha 2 Globulin 12.0 % Normal 06-08-2020 [facility] (57481) Comment: Performed By: #### JACKIE MEJIA ####[facility], [place] [phone] Beta Globulin 16.3 % Normal 06-08-2020 [facility] (80787) Comment: Performed By: #### JACKIE MEJIA ####[facility], [place] [phone] Gamma Globulin 12.0 % Normal 06-08-2020 [facility] (15774) Comment: Performed By: #### JACKIE MEJIA ####[place] [address] [address] [place], [place] [phone] Interpretation SEE COMMENT Normal 06-08-2020 [facility] (33682) Comment: Result Comment: No definitiv e M protein is identified on protein electrophoresis. Performed By: #### JACKIE MEJIA ####[address] [place] [phone] Protein (U) [Mass/Vol] <4 0-20 mg/dL Normal 020 [facility] (10667) Comment: Performed By: #### JACKIE MEJIA ####[facility], [place] [phone] Staff Review Reviewed by Michelle Normal 06-08 [facility] MD Nancy PhD ([id number]) [facility] (10226) Comment: Performed By: #### JACKIE MEJIA ####[facility], [place] [phone] obsolete on 2020-05 OBSOLETE Refill (HEMAWS) Normal 06-08-2020 [facility] LORETA HURST ([id number]) 1945 M [place] Date Time Provider Department (85684) 06/08/20 STEVEN AKERS During your visit today, [...] is No M protein is Normal 06-08-20 Alberto [Mass/Vol] identified. identified. Clini victoria [facility] (52437) Comment: Performed By: #### JACKIE MEJIA PA ####[facility] [place], [place] [phone] [facility] Staff Review Reviewed by Michelle Normal 06-08-2020 [facility] MD Nancy PhD ([id number]) [facility] (92971) Comment: Performed By: #### UJACKIE LAMAS PA ####[facility], [place] [phone] monclnl protein, ser on 2020-06-08 K/L Ratio, Serum 2.26 0.26-1.65 High 06-08-2020 [facility] (20839) Comment: Performed By: #### SERMPA, B 2M, SEPG ####[place] [address], [place] [address] [phone] [place], Free, Serum 44.7 3.30-19.40 mg/L High 06-08-2020 [facility] (08357) Comment: Result Comment: Test perform ed by an immunoturbidimetric assay on Optilite instrument from [facility] . Immunoglobulin free light chain assay results should be interpreted in con junction with other tests and in correlation with clinical picture. Performed By: #### SERMPA, B 2M, SEPG ####[place] [address], [place] [address] [phone] Lambda, Free, Serum 19.8 5.7-26.3 mg/L Normal 06-08-2020 [facility] (18138) Comment: Result Comment: Test perform ed by an immunoturbidimetric assay on Optilite instrument from [facility] . Immunoglobulin free light chain assay results should be interpreted in con junction with other tests and in correlation with clinical picture. Performed By: #### SERMPA, B 2M, SEPG ####[facility] Ave[place], [place] [address] [phone] MPA Interpretation SEE COMMENT Normal 0 [facility] (25110) Comment: Result Comment: Atypical res tricted bands are present in the IgM and kappa regions, with an additional band in the lambda region. Consistent with IgM kappa monoclonal gammopathy. The significance of the additional free lambda band is unclear, but may rep resent an additional lambda containing clone. Performed By: #### SERMPA, B 2M, SEPG ####[place] [address] [phone] MPA Serum IgA 223 78-391 mg/dL Normal 06-08-2020 [facility] (01773) Comment: Performed By: #### SERMPA, B 2M, SEPG ####[place] [address] [phone] MPA Serum IgG 760 939-9594 mg/dL Normal 06-08-2020 [facility] (89336) Comment: Performed By: #### SERMPA, B 2M, SEPG ####[place] [address] [phone] MPA Serum IgM 517 53-334 mg/dL High 06-08-2020 [facility] (16565) Comment: Performed By: #### SERMPA, B 2M, SEPG ####[place] [address] [phone] Protein M protein is No M protein is Critically 06-08-2020 [place] [Mass/Vol] present. identified. [facility] (63596) Comment: Performed By: #### SERMPA, B 2M, SEPG ####[place] [address] Staff Review Reviewed by Liz Normal 0 [facility] MD Delores (93144) [place] (14487) Comment: Performed By: #### SERMPA, B 2M, SEPG ####[place] [address] [phone] comp metabolic panel on 2020-06-08 Albumin [Mass/Vol] 4.5 3.9-4.9 g/dL Normal 06-08-2020 [facility] (83925) ALP [Catalytic 71 38-113 U/L Normal 06-08-2020 [facility] activity/Vol] [place] [facility] (64183) ALT [Catalytic 57 10-54 U/L High 06-08-2020 [facility] activity/Vol] [place] [facility] (48777) Anion gap 12 9-18 mmol/L Normal 06-08-2020 [facility] [Moles/Vol] [facility]13464[facility] AST [Catalytic 30 14-40 U/L Normal 06-08-2020 [facility] activity/Vol] [place] [facility] (63450) Bilirubin [Mass/Vol] 1.0 0.2-1.3 mg/dL Normal 0 [facility] (57264) Calcium [Mass/Vol] 9.6 8.5-10.2 mg/dL Normal 06-08-2020 [facility] (07818) Chloride [Moles/Vol] 104 97-105 mmol/L Normal 0 [facility] (08755) CO2 [Moles/Vol] 26 22-30 mmol/L Normal 06-08-2020 [facility] [place] (80820) Creatinine 0.71 0.73-1.22 mg/dL Low 06-08-2020 [facility] [Mass/Vol] [place] (46677) eGFR- Amer. >60 Normal 06-08-2020 [facility] (35894) GFR/1.73 sq M >60 mL/min/{1.73_m Normal 06-08-2020 [facility] predicted among 2} [facility] (24543) non-blacks MDRD (S/P/Bld) [Vol rate/Area] Comment: Result [...] Glucose [Mass/Vol] 91 74-99 mg/dL Normal 06-08-2020 [facility] (27225) Comment: Result Comment: The [place] Diabetes [employer] (ADA) provides guidance for cutoff [...] for diagnosis of diabetes. Reference: Standards of [facility] Care in Diabetes 2016, [place] [employer]. Diabetes Care. 2016.39(Suppl 1). Potassium [Moles/Vol] 4.4 3.7-5.1 mmol/L Normal 06-08-20 20 [facility] (70202) Protein [Mass/Vol] 7.1 6.3-8.0 g/dL Normal 06-08-2020 [facility] (17874) Sodium [Moles/Vol] 142 136-144 mmol/L Normal 06-08-2020 [facility] (73325) Urea nitrogen [Mass/Vol] 10 9-24 mg/dL Normal 06-08 [facility] (70680) cbc and differential on 2020-06-08 Abs Baso 0.00 <0.11 k/uL Normal 06-08-2020 [facility] (81872) Abs Coffey 0.75 <0.87 k/uL Normal 06-08-2020 [facility] (49014) Abs Neut 4.64 1.45-7.50 k/uL Normal 06-08-2020 [facility] (23093) Absolute nRBC 0.14 <0.01 k/uL High 06-08-2020 [facility] (06604) ANC(includeSEG+BAND 4.64 k/uL Normal 06-08-2020 [facility] (50365) Anisocytosis Ql Present Normal 06-08-2020 [facility] (Bld[facility] (14129) Basophils/100 WBC 0.0 % Normal 06-08-2020 [facility] (33371) DTYPE Manual Diff Normal 06-08-2020 [place] [facility] (62204) Eosinophils (Bld) 0.20 <0.46 k/uL Normal 06-08-2020 C leveland [#/Vol] [facility] (62691) Eosinophils/100 WBC 3.0 % Normal 06-08-2020 [place] (Bld) [facility] (45741) Erythrocyte 22.9 11.5-15.0 % High 06-08-2020 [place] distribution width C linic (RBC) [Ratio] [place] [facility] (03807) Hematocrit (Bld) 35.4 39.0-51.0 % Low 06-08-2020 [facility] [Volume fraction] Cl inic [place] (78770) Hemoglobin (Bld) 11.3 13.0-17.0 g/dL Low 06-08-2020 [facility] [Mass/Vol] [facility] (38860) Lymphocytes (Bld) 1.23 1.00-4.00 k/uL Normal 06-08-2020 C [facility] [#/Vol] [facility] (65083) Lymphocytes/100 WBC 18.0 % Normal 06-08-2020 [place] (Bld) [facility] (26576) MCH (RBC) [Entitic 33.2 26.0-34.0 pG Normal 06-08-2020 [place] mass] [facility] (74352) MCHC (RBC) 31.9 30.5-36.0 g/dL Normal 06-08-2020 [facility] (52264) MCV (RBC) [Entitic 104.1 80.0-100.0 fL High 06-08-2020 [place] vol] [facility] (15843) Monocytes/100 WBC 11.0 % Normal 06-08-2020 C leveland (Bld) [facility] (77541) Neutrophils/100 WBC 68.0 % Normal 06-08-2020 [place] (Bld) [facility] (43937) NRBCs 2 0 /100 WBC High 06-08-2020 [facility] (63539) Ovalocytes Few Normal 06-08-2020 [place] [facility] (32796) Platelet mean 10.5 9.0-12.7 fL Normal 06-08-2020 [place] [facility] (Bld) [facility] [Entitic vol] [place] [facility] (25164) Platelets (Bld) Platelet Normal 06-08-2020 [facility] [#/Vol] estimate Clinic adequate [place] (14402) Platelets (Bld) 324 150-400 k/uL Normal 06-08-2020 [facility] [#/Vol] [facility] (17597) Polychromasia Slight Normal 06-08-2020 [facility] (66887) RBC (Bld) [#/Vol] 3.40 4.20-6.00 m/uL Low 06-08-2020 C leveland [facility] (45015) RBC Fragments Few Normal 06-08-2020 [facility] (96208) WBC (Bld) [#/Vol] 6.82 3.70-11.00 k/uL Normal 06-08-2020 [facility] (39161) b2 microglobulin on 2020-06-08 Globulin (S) [Mass/Vol] 2.5 <3.1 mg/L Normal 2019 [facility] (05247) Comment: Performed By: #### CARLOS, B 2M, SEPG ####[facility] [id number] [place], [place] [address] [phone] progress on 2020-05 PROGRESS HNO ID: [id number] Normal 06-05-2020 [facility] Author: Patricia Poe LPN [place] (97105) Service: ? Author Type: ? Type: Progress Notes Filed: 06/09/2020 10:54 AM Note Text: aware and swelling is worse and so will take him to ER to rule out a blood clot. PROGRESS HNO ID: [id number] Normal 06-05-2020 [facility] Author: Shaheed Shukla [place] ([id number]) Service: ? Author Type: Physician Type: Progress Notes Filed: 06/09/2020 10:54 AM Note Text: They were still worried about covid despite the negative diego ting. 1. His initial follow up should actually be via virtual visi t given the above 2. If having worsening edema, just in hospital and possible covid, back to ER to rule out clot PROGRESS HNO ID: [id number] Normal 06-05-2020 [facility] Author: Shaheed Shukla [place] (67513) Service: ? Author Type: Physician Type: Progress Notes Filed: 06/09/2020 10:54 AM Note Text: Can you get me the discharge summary to look at PROGRESS HNO ID: [id number] Normal 06-05-2020 [facility] Author: Patricia Poe LPN [place] ([id number]) Service: ? Author Type: ? Type: Progress Notes Filed: 06/09/2020 10:54 AM Note Text: TRANSITION CARE MANAGEMENT (TCM) INITIAL CONTACT [employer]st Outreach Provider Action/FYI: Patient was discontinued from [facility] 06/02/20. Was treated for UTI while [...] flowsheet data found. SUMMARY: -Pt discharged from [facility] on 06/02/20. -Admitted for: Hypoxia, possible reaction to transfusion, montalvo spected COVID and sepsis secondary to UTI [...] CNPTOUTREACH Patient Outreach (FAMPWS) Normal 0 06-05-2020 [place] [facility] LORETA HURST ([id number]) 1945 M [place] Date Time Provider Department ([id number]) 06/05/20 [place] [facility] During your visit today, we recorded the following informati on about you: Patricia Poe SILVANA 06/09/2020 10:54 AM Signed TRANSITION CARE MANAGEMENT (TCM) INITIAL CONTACT [employer] Outreach Provider Action/FYI: Patient was discontinued from [facility] 06/02/20. Was treate d for UTI [...] flowsheet data found. SUMMARY: -Pt discharged from [facility] on 06/02/20. -Admitted for: Hypoxia, possible [...] to ER to rule out clot Patricia Poe LPN 06/09/2020 10:54 AM Signed aware and swelling [...] Status:Closed by PATRICIA POE LPN on 06/09/20 ruthann on 2020-06-05 CNPN Telephone (FAMPWS) Normal 06-05-2020 [facility] LORETA HURST ([id number]) 1945 [facility] Date Time Provider Department ([id number]) 06/05/20 [place] CARTER (DIAZ) AVNI During your visit today, we recorded the following informati on about you: Patricia Poe SILVANA 06/05/2020 1:25 PM Signed Patient was discontinued from [facility] 06/02/20. Was treate d for UTI [...] Status:Closed by SHAHEED SHUKLA MD on 06/05/20 kayleen on 2020-05-25 CNPN Telephone (HEMSANTI) Normal 05-25-2020 [place] LORETA HURST ([id number]) 1945 M [place] Date Time Provider Department (47384) 05/25/20 STEVEN AKERS During your visit today, we recorded the following informati on about you: Domonique Kerry López LPN, SILVANA 05/25/2020 4:08 PM Signed Pt. Scheduled for transfusion 2 inuts packed cells @ [facility] 05/10 7 @ 9:30 am Pt. And lab notified orders faxed. Domonique Montalvoarthur López LPN Allergies As of Date: 05/25/2020 [...] transfusion [Z92.89] 12/24/2018 Encounter Status:Closed by DOMONIQUE ÓLPEZ on 05/25/20 CNPN Telephone (HEMSANTI) Normal 05-25-2020 [place] [facility] LORETA HURST ([id number]) 1945 [facility] Date Time Provider Department (78491) 05/25/20 STEVEN AKERS During your visit today, [...] [D46.20] Order(s):CBC + DIFF [SQCBCDIF] Order #: [id number] STANDING Prescriptions as of 05/25/2020 Sig: GABAPENTIN [...] 2020-05-25 Abs Baso <0.03 <0.11 Normal 05-25-2020 [facility] (64429) Abs Coffey 0.36 <0.87 k/uL Normal 05-25-2020 [facility] (73185) Abs Neut 2.76 1.45-7.50 k/uL Normal 05-25-2020 [facility] (43723) Absolute nRBC 0.02 <0.01 k/uL High 05-25-2020 [facility] (05829) Basophils/100 WBC 0.5 % Normal 05-25-2020 [facility] (Bld) [place] (19512) DTYPE Auto Diff Normal 05-25-2020 [facility] (91739) Eosinophils (Bld) 0.05 <0.46 k/uL Normal 05-25-2020 [facility] [#/Vol] [place] (37747) Eosinophils/100 WBC 1.2 % Normal 05-25-2020 [facility] (Bld) [place] (50658) Erythrocyte 23.3 11.5-15.0 % High 05-25-2020 [facility] distribution width [facility] (24504) (RBC) [Ratio] Hematocrit (Bld) 25.5 39.0-51.0 % Low 05-25-2020 [facility] [Volume fraction] [facility] (12836) Hemoglobin (Bld) 8.5 13.0-17.0 g/dL Low 05-25-2020 [facility] [Mass/Vol] [place] (48799) Lymphocytes (Bld) 1.05 1.00-4.00 k/uL Normal 05-25-2020 [facility] [#/Vol] [place] (94792) Lymphocytes/100 WBC 24.7 % Normal 05-25-2020 [facility] (Bld) [place] (90987) MCH (RBC) [Entitic 36.6 26.0-34.0 pG High 05-25-2020 [facility] mass] [place] (85308) MCHC (RBC) 33.3 30.5-36.0 g/dL Normal 05-25-2020 [facility] [Mass/Vol] [place] (48192) MCV (RBC) [Entitic 109.9 80.0-100.0 fL High 05-25-2020 [facility] vol] [place] (52316) Monocytes/100 WBC 8.5 % Normal 05-25-2020 C [facility] (Bld) [place] (73942) Neutrophils/100 WBC 65.1 % Normal 05-25-2020 [facility] (Bld) [place] (53137) NRBCs 0.5 0 /100 WBC High 05-25-2020 [facility] (14061) Platelet mean volume 10.2 9.0-12.[address] [facility] (Bld) [Entitic vol] [place] (90905) Platelets (Bld) 250 150-400 k/uL Normal 05-25-2020 [facility] [#/Vol] [place] (79010) RBC (Bld) [#/Vol] 2.32 4.20-6.00 m/uL Low 05-25-2020 C [facility] (91082) WBC (Bld) [#/Vol] 4.25 3.70-11.00 k/uL Normal 05-25-2020 [facility] (86157) obsolete on 2020-05 OBSOLETE Refill (FAMPWS) Normal 05-23-2020 [facility] LORETA HURST ([id number]) 1945 [facility] Date Time Provider Department (31104) 05/23/20 [place] CARTER) FAMPWS During your visit today, we [...] G89.29] Polyneuropathy in other diseases classified elsewhere ([facility]) [G63] Order(s):gabapentin (NEURONTIN) 300 mg capsuleTake 1 [...] is not on file. Encounter Status:Closed by [place] CARTER PA-C on 05/23/20 kayleen on 2020-04-20 CNPN Telephone (HEMLive Shuttle) Normal 04-20-2020 [place] LORETA Zuleta ([id number]) 1945 M [place] Date Time Provider Department (07823) 04/20/20 STEVEN AKERS During your visit today, we recorded the following informati on about you: Margot Kenny PINA 04/20/2020 11:41 AM Signed Patient scheduled for 1 unit PRBC's 04/21/2020 @ [facility], [facility]. Orders faxed. Patient and lab aware. Margot De La Rosa SILVANA Allergies As of Date: 04/20/2020 Noted Allergy [...] Absolute nRBC 0.02 <0.01 k/uL High 04-20-2020 [facility] (67899) Erythrocyte distribution 22.1 11.5-15.0 % High 04-20 [facility] width (RBC) [Ratio] [place] (08113) Hematocrit (Bld) [Volume 28.5 39.0-51.0 % Low 04-20 [facility] fraction] [place] (11572) Hemoglobin (Bld) 9.5 13.0-17.0 g/dL Low 04-20-2020 [facility] [Mass/Vol] [place] (14760) MCH (RBC) [Entitic mass] 36.0 26.0-34.0 pG High 04-20 [facility] (56739) MCHC (RBC) [Mass/Vol] 33.3 30.5-36.0 g/dL Normal 04-20-20 20 [facility] (62534) MCV (RBC) [Entitic vol] 108.0 80.0-100.0 fL High 04-20 [facility] (10913) Platelet mean volume 10.3 9.0-12.[address] [facility] (Bld) [Entitic vol] [place] (13968) Platelets (Bld) [#/Vol] 271 150-400 k/uL Normal 2019 [facility] (30695) RBC (Bld) [#/Vol] 2.64 4.20-6.00 m/uL Low 04-20-2020 C [facility] (23158) WBC (Bld) [#/Vol] 4.39 3.70-11.00 k/uL Normal 04-20-2020 [facility] (50980) cnpn on 2020-03-23 CNPN Telephone (HEMAWS) Normal 03-23-2020 [place] [facility] LORETA HURST ([id number]) 1945 [facility] Date Time Provider Department () 03/23/20 STEVEN AKERS HEMSANTI During your visit today, we recorded the [...] Absolute nRBC 0.02 <0.01 k/uL High 03-23-2020 [facility] (89614) Erythrocyte distribution 22.8 11.5-15.0 % High 03-23 [facility] width (RBC) [Ratio] [place] () Hematocrit (Bld) [Volume 25.1 39.0-51.0 % Low 03-23 [facility] fraction] [place] () Hemoglobin (Bld) 8.4 13.0-17.0 g/dL Low 03-23-2020 Cl [facility] [Mass/Vol] [place] (22903) MCH (RBC) [Entitic mass] 37.2 26.0-34.0 pG High 03-23 [facility] (18235) MCHC (RBC) [Mass/Vol] 33.5 30.5-36.0 g/dL Normal 03-23-20 [facility] (51984) MCV (RBC) [Entitic vol] 111.1 80.0-100.0 fL High 03-23 [facility] (36596) Comment: Result Comment: RECHECKED Platelet mean volume 11.1 9.0-12.[address] [facility] (Bld) [Entitic vol] [place] (88051) Platelets (Bld) [#/Vol] 266 150-400 k/uL Normal 2019 [facility] (08019) RBC (Bld) [#/Vol] 2.26 4.20-6.00 m/uL Low 03-23-2020 C [facility] (74565) WBC (Bld) [#/Vol] 4.88 3.70-11.00 k/uL Normal 03-23-2020 [facility] (74765) obsolete on 2020-03 OBSOLETE Refill (HEMAWS) Normal 03-10-2020 [facility] LORETA HURST ([id number]) 1945 M [place] Date Time Provider Department () 03/10/20 STEVEN AKERS During your visit today, [...] Absolute nRBC 0.02 <0.01 k/uL High 02-22-2020 [facility] (58446) Erythrocyte distribution 23.3 11.5-15.0 % High 02-21 [facility] width (RBC) [Ratio] [place] (11345) Hematocrit (Bld) [Volume 26.5 39.0-51.0 % Low 02-21 [facility] fraction] [place] (62278) Hemoglobin (Bld) 8.8 13.0-17.0 g/dL Low 02-22-2020 [facility] [Mass/Vol] [place] (30261) MCH (RBC) [Entitic mass] 35.9 26.0-34.0 pG High 02-21 [facility] (06280) MCHC (RBC) [Mass/Vol] 33.2 30.5-36.0 g/dL Normal 02-22-20 20 [facility] (51810) MCV (RBC) [Entitic vol] 108.2 80.0-100.0 fL High 02-21 [facility] (44727) Platelet mean volume 9.9 9.0-12.7 fL Normal 0 [facility] (Bld) [Entitic vol] [place] (56220) Platelets (Bld) [#/Vol] 301 150-400 k/uL Normal 2019 [facility] (35469) RBC (Bld) [#/Vol] 2.45 4.20-6.00 m/uL Low 02-22-2020 C [facility] (40237) WBC (Bld) [#/Vol] 5.21 3.70-11.00 k/uL Normal 02-22-2020 [facility] (05296) obsolete on 2020-02 OBSOLETE Refill (FAMPWS) Normal 02-15-2020 [facility] LORETA HURST ([id number]) 1945 [facility] Date Time Provider Department () 02/15/20 [place] CARTER (DIAZ) FAMPWS During your visit today, [...] Status:Closed by SHAHEED SHUKLA MD on 02/16/20 kayleen on 2020-01-20 KAYLEEN Telephone (DEMI) Normal 01-20-2020 [place] [facility] LORETA HURST ([id number]) 1945 [facility] Date Time Provider Department (56475) 01/20/20 STEVEN AKERS During your visit today, we recorded the following informati on about you: Margot De La Rosa LPN 01/20/2020 11:52 AM Signed Patient scheduled for 1 unit PRBC's 01/21/2020 @ [address] [place] [address]. Orders faxed. Patient and lab aware. Margot De La Rosa LPN Allergies As of Date: 01/20/2020 Noted Allergy [...] 2020-01-20 Absolute nRBC <0.01 <0.01 Normal 01-20-2020 [facility] (75962) Erythrocyte distribution 21.3 11.5-15.0 % High 01-19 [facility] width (RBC) [Ratio] [place] (46471) Hematocrit (Bld) [Volume 27.9 39.0-51.0 % Low 01-19 [facility] fraction] [place] (90183) Hemoglobin (Bld) 9.3 13.0-17.0 g/dL Low 01-20-2020 [facility] [Mass/Vol] [place] (25797) MCH (RBC) [Entitic mass] 34.6 26.0-34.0 pG High 01-19 [facility] (42917) MCHC (RBC) [Mass/Vol] 33.3 30.5-36.0 g/dL Normal 01-20-20 20 [facility] (83575) MCV (RBC) [Entitic vol] 103.7 80.0-100.0 fL High 01-19 [facility] (30440) Platelet mean volume 10.3 9.0-12.[address] [facility] (Bld) [Entitic vol] [place] (72469) Platelets (Bld) [#/Vol] 308 150-400 k/uL Normal 2019 [facility] (46287) RBC (Bld) [#/Vol] 2.69 4.20-6.00 m/uL Low 01-20-2020 C [facility] (99076) WBC (Bld) [#/Vol] 4.92 3.70-11.00 k/uL Normal 01-20-2020 [facility] (78985) cbc on 2019-12-30 Absolute nRBC <0.01 <0.01 Normal 12-30-2019 [facility] (83530) Erythrocyte distribution 21.7 11.5-15.0 % High 12-30 [facility] width (RBC) [Ratio] [place] (09644) Hematocrit (Bld) [Volume 28.2 39.0-51.0 % Low 12-30 [facility] fraction] [place] (66831) Hemoglobin (Bld) 9.5 13.0-17.0 g/dL Low 12-30-2019 [facility] [Mass/Vol] [place] (18671) MCH (RBC) [Entitic mass] 34.9 26.0-34.0 pG High 12-30 [facility] (30334) MCHC (RBC) [Mass/Vol] 33.7 30.5-36.0 g/dL Normal 12-30-19 20 [facility] (59163) MCV (RBC) [Entitic vol] 103.7 80.0-100.0 fL High 12-30 [facility] (13794) Platelet mean volume 10.0 9.0-12.[address] [facility] (Bld) [Entitic vol] [place] (81125) Platelets (Bld) [#/Vol] 286 150-400 k/uL Normal 2019 [facility] (48366) RBC (Bld) [#/Vol] 2.72 4.20-6.00 m/uL Low 12-30-2019 C [facility] (58024) WBC (Bld) [#/Vol] 4.13 3.70-11.00 k/uL Normal 12-30-2019 [facility] (71026) progress on 2019-12 PROGRESS HNO ID: [id number] Normal 12-16-2019 [place] Author: Steven Akers [facility] Service: ? [place] Author Type: Physician (77399) Type: Progress Notes Filed: 12/16/2019 10:43 AM [...] are of normal intensi ty in all arzia. No rales, wheezes or rhonchi. CARDIOVASCULAR: Rhythm is regular. Normal intensity S1/S2. ABDOMEN: The abdomen is nondistended. Extremities: No swelling. Has compression stockings on. SKIN: No jaundice or rash. No petechiae. 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 No focal motor [...] in-situ hybridization tests have been determined by [facility] ([facility]) in a manner consistent with CLIA requirements. One or more of t hese tests have not been cleared or approved by the FDA. -[facility] is regulate d under CLIA as qualified [...] Procedure Results and Interpretation Lab Analysis No: [id number] DIAGNOSIS: 46,XY[20] INTERPRETATION: Normal, male karyotype COMMENT: [...] aryotype. Clinical and pathologic correlation is recommended. Meat Supervisor Interpretation: Qian Anderson, Ph.D., F.A.C.M. G. Pathologist [...] comments: Please see bone m arrow report [id number]. Viability: 99%. ? ? Results: Marker ? [...] developed and its performance characteristics determined by [facility]'s Fritz Yuki [facility] Chloe ([facility]). It has not been cleared or approved [...] azacitadine. -Again discussed various therapies including the [id number] tr ial--he is willing to consider when [...] Albumin [Mass/Vol] 4.4 3.9-4.9 g/dL Normal 12-16-2019 [facility] (32346) ALP [Catalytic 59 38-113 U/L Normal 12-16-2019 [facility] activity/Vol] [place] [facility] (65039) ALT [Catalytic 22 10-54 U/L Normal 12-16-2019 [facility] activity/Vol] [facility] [facility] (47181) Anion gap 9 9-18 mmol/L Normal 12-16-2019 [facility] [Moles/Vol] [place] [facility] (18892) AST [Catalytic 20 14-40 U/L Normal 12-16-2019 [facility] activity/Vol] [facility] [facility] (29670) Bilirubin [Mass/Vol] 1.3 0.2-1.3 mg/dL Normal 0 [facility] (70214) Calcium [Mass/Vol] 9.2 8.5-10.2 mg/dL Normal 12-16-2019 [facility] (56563) Chloride [Moles/Vol] 105 97-105 mmol/L Normal 0 [facility] (53319) CO2 [Moles/Vol] 27 22-30 mmol/L Normal 12-16-2019 [facility] [place] (15059) Creatinine 0.79 0.73-1.22 mg/dL Normal 12-16-2019 [facility] [Mass/Vol] [place] (41220) eGFR- Amer. >60 Normal 12-16-2019 [facility] (86873) GFR/1.73 sq M >60 mL/min/{1.73_m Normal 12-16-2019 [facility] predicted among 2} Roberto Carlosv sam (54134) non-blacks MDRD (S/P/Bld) [Vol rate/Area] Comment: Result [...] Glucose [Mass/Vol] 118 74-99 mg/dL High 12-16-2019 [facility] (05178) Comment: Result Comment: The [place] [employer] (ADA) provides guidance for cutoff [...] for diagnosis of diabetes. Reference: Standards of [facility] Care in Diabetes 2016, [place] [employer]. Diabetes Care. 2016.39(Suppl 1). Potassium [Moles/Vol] 3.9 3.7-5.1 mmol/L Normal 12-16-19 20 [facility] (21316) Protein [Mass/Vol] 6.5 6.3-8.0 g/dL Normal 12-16-2019 [facility] ([id number]) Sodium [Moles/Vol] 141 136-144 mmol/L Normal 12-16-2019 [facility] (15608) Urea nitrogen [Mass/Vol] 12 9-24 mg/dL Normal 12-16 [facility] (57481) cnovsp on 6 CNOVSP Visit (SP) Office (HEMAWS) Normal [place] [facility] LORETA HURST ([id number]) 1945 M [place] Date Time Provider Department () 12/16/19 9:50 AM STEVEN AKERS During your [...] No jaundice or rash. No petechiae. 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 No focal motor [...] in-situ hybridization tests have been determined by [facility] Fritz Yuki [facility] (RTPLNM) in a manner consistent with CLIA requirements. One or more of these tests have not been cleared or approved by the FDA. -[facility] is regula zackery under CLIA as qualified [...] Procedure Results and Interpretation Lab Analysis No: [id number] DIAGNOSIS: 46,XY[20] INTERPRETATION: Normal, male karyotype COMMENT: [...] aryotype. Clinical and pathologic correlation is recommended. Meat Supervisor Interpretation: Qian Anderson, Ph.D., F.A.C.M. G. Pathologist Interpretation: ?Heesun Rosales, M.D., Ph.D. Morphologic/Cytogenetic Correlation: There is no change in t he diagnosis. As Reviewed By: Jose C Reis MD Procedure Pathologist: Martha Sales M.D./OLGA FLOW CYTOMETRY - BONE MARROW LOW GRADE LEUK MARKERS ? Date Ordered: ?09/04/2018 ? ? ? Date Reported: ?09/04/2018 Procedure Results and Interpretation Specimen type: Bone Marrow Aspirate. CBC, differential and morphology comments: Please see bone m arrow report [id number]. Viability: 99%. ? ? Results: Marker ? [...] Correlation with the clinical findings is isabelle hamilton. ANALYTE SPECIFIC REAGENT (ASR) DISCLAIMER This test was developed and its performance characteristics determined by [facility] Chloe ([facility]). It has not been cleared or approved [...] -Again discussed various therapies inclu ding the [id number] trial--he is willing to consider when he [...] Steven Akers DO Referring Provider: STEVEN AKERS [[id number]] Allergies As of Date: 12/16/2019 Noted Allergy [...] Abs Baso 0.04 <0.11 k/uL Normal 12-16-2019 [facility] ([id number]) Abs Coffey 0.32 <0.87 k/uL Normal 12-16-2019 [facility] (56001) Abs Neut 3.54 1.45-7.50 k/uL Normal 12-16-2019 [facility] (89062) Absolute nRBC <0.01 <0.01 Normal 12-16-2019 [facility] (02097) Basophils/100 WBC 0.8 % Normal 12-16-2019 [facility] (Bld) [place] (59118) DTYPE Auto Diff Normal 12-16-2019 [facility] (13474) Eosinophils (d) 0.07 <0.46 k/uL Normal 12-16-2019 [facility] [#/Vol] [place] (86922) Eosinophils/100 WBC 1.4 % Normal 12-16-2019 [facility] (Bld) [place] (89341) Erythrocyte 23.4 11.5-15.0 % High 12-16-2019 [facility] distribution width [facility] (85153) (RBC) [Ratio] Hematocrit (Bld) 28.2 39.0-51.0 % Low 12-16-2019 [facility] [Volume fraction] [facility] (45962) Hemoglobin (Bld) 9.4 13.0-17.0 g/dL Low 12-16-2019 [facility] [Mass/Vol] [place] (48655) Lymphocytes (Bld) 1.08 1.00-4.00 k/uL Normal 12-16-2019 C [facility] [#/Vol] [place] (25457) Lymphocytes/100 WBC 21.3 % Normal 12-16-2019 [facility] (Bld) [place] (07373) MCH (RBC) [Entitic 34.7 26.0-34.0 pG High 12-16-2019 [facility] mass] [place] ([id number]) MCHC (RBC) 33.3 30.5-36.0 g/dL Normal 12-16-2019 [facility] [Mass/Vol] [place] (87463) MCV (RBC) [Entitic 104.1 80.0-100.0 fL High 12-16-2019 [facility] vol] [place] (25454) Monocytes/100 WBC 6.3 % Normal 12-16-2019 C [facility] (Bld) [place] (87912) Neutrophils/100 WBC 70.2 % Normal 12-16-2019 [facility] (Bld) [place] (92159) NRBCs 0.0 0 /100 WBC Normal 12-16-2019 [facility] (69962) Platelet mean volume 11.2 9.0-12.[address] [facility] (d) [Entitic vol] [place] (18162) Platelets (Bld) 306 150-400 k/uL Normal 12-16-[address] [facility] [#/Vol] [place] (05328) RBC (Bld) [#/Vol] 2.71 4.20-6.00 m/uL Low 12-16-2019 C [facility] (88576) WBC (Bld) [#/Vol] 5.07 3.70-11.00 k/uL Normal 12-16-2019 [facility] (46389) cbc on 2019-12-02 Absolute nRBC <0.01 <0.01 Normal 12-02-2019 [facility] (59391) Erythrocyte distribution 23.8 11.5-15.0 % High 12-02 [facility] width (RBC) [Ratio] [place] (64729) Hematocrit (Bld) [Volume 25.9 39.0-51.0 % Low 12-02 [facility] fraction] [place] (99485) Hemoglobin (Bld) 8.5 13.0-17.0 g/dL Low 12-02-2019 Cl [facility] [Mass/Vol] [place] (46474) MCH (RBC) [Entitic mass] 34.7 26.0-34.0 pG High 12-02 [facility] (58772) MCHC (RBC) [Mass/Vol] 32.8 30.5-36.0 g/dL Normal 12-02-19 20 [facility] (04913) MCV (RBC) [Entitic vol] 105.7 80.0-100.0 fL High 12-02 [facility] (63427) Platelet mean volume 10.6 9.0-12.[address] [facility] (Bld) [Entitic vol] [place] (24012) Platelets (Bld) [#/Vol] 323 150-400 k/uL Normal 2019 [facility] (50882) RBC (Bld) [#/Vol] 2.45 4.20-6.00 m/uL Low 12-02-2019 C [facility] (17107) WBC (Bld) [#/Vol] 4.86 3.70-11.00 k/uL Normal 12-02-2019 [facility] (66734) progress on 2019-11 PROGRESS HNO ID: [id number] Normal 11-18-2019 [place] Author: Quincy Rosen (Diaz) [facility] Service: ? [place] Author Type: Physician Event Organizer ([id number]) Type: Progress Notes Filed: 11/18/2019 6:47 PM [...] upper extremity - COLONOSCOP W/ OR W/O [facility] SPEC 2002 Colonoscopy - COLONOSCOP W/ OR [...] do s o closer to home in [place]. Follow-up as needed for OMT. We'll increase gabapentin to 300 mg progressively to 3 times a day. If this is not sufficient for pain management will work at gett ing him pain-free through manual therapy, physical therapy and medic ation. - Ice for localized tenderness - Patient given instructions use of medications as ordered, intermittent rest, back care exercise program, weight loss and improved p osture - GABAPENTIN 300 MG CAPSULE 2. 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 Quincy Carter PA-C cnov on 2019-11-18 CNOV Office Visit (FAMPWS) Normal 11-18-[address] [place] [address] Clinic LORETA HURST ([id number]) 1945 [facility] Date Time Provider Department ([id number]) 11/18/19 1:40 PM [facility] visit today, we recorded the following informati on about you: Temperature Pulse Respiration Blood pressure 97.2 degrees 76/minute 20/minute 130/54 Weight 81.2 kg Quincy Carter PA-C 11/18/2019 6:47 PM Signed BP [...] to do so closer to home in [place]. Follow-up as needed for OMT. We'll increase [...] Polyneuropathy in other diseases classified e lsewhere ([facility]) - ICD9: 357.4, ICD10: G63 - GABAPENTIN 300 MG CAPSULE Follow-up in 4-6 weeks. Quincy Carter PA-C Referring Provider: SELF [[id number]] Allergies [...] G89.29] Polyneuropathy in other diseases classified elsewhere (HCC) [G63] Order(s):gabapentin (NEURONTIN) 300 mg capsuleTake 1 [...] is not on file. Encounter Status:Closed by Quincy CARTER PA-C on 11/18/19 mendy cbc on 2018 Erythrocyte Unable to assay. 11.5-15.0 Normal 10-28-2019 [place] distribution width [facility] (RBC) [Ratio] difficulty. [facility] ([id number]) Hematocrit (Bld) 24.8 39.0-51.0 % Low 10-28-2019 [facility] [[facility] fraction[facility] (62842[facility] Hemoglobin (Bld) 8.4 13.0-17.0 g/dL Low 10-28-2019 [facility] [Mass/Vol] [facility] (73041) MCH (RBC) [Entitic 35.7 26.0-34.0 pg High 10-28-2019 [place] mass] [facility] (21557) MCHC (RBC) 33.9 30.5-36.0 g/dL Normal 10-28-2019 [place] [Mass/Vol] [facility] (40264) MCV (RBC) [Entitic 105.5 80.0-100.0 fL High 10-28-2019 [place] vol] [facility] (35139) Platelet mean 10.5 9.0-12.7 fL Normal 10-28-2019 [place] volume (Bld) [facility] [Entitic vol] [place] and (46697) Comment: Result Comment: Test perform ed by: [facility] [place], [address] [place], [place] [address]. RBC (Bld) [#/Vol] 2.35 4.20-6.00 m/uL Low 10-28-2019 [facility] (68657) WBC (Bld) [#/Vol] 5.27 3.70-11.00 k/uL Normal 10-28-2019 [facility] (37698) [place] Platelet Cnt 310 150-400 k/uL Normal 9 [facility] (52546) xr lumbar 3v ap/lat/l5-s1 on 2019-10-12 XR LUMBAR 3V * * *Final Report* * * Normal [place] AP/LAT/L5-S1 DATE OF EXAM: Oct 12 2019 2:04PM Clinic WOX 5228 - XR LUMBAR 3V AP/LAT/L5-S1 / [place] PROCEDURE REASON: multiple diagnoses (16020) * * * * Physician Interpretation * * * * EXAM TITLE: XR LUMBAR 3V AP/LAT/L5-S1 EXAM DATE/TIME: 10/12/2019 2:04 PM COMPARISON: None. CLINICAL INDICATION/HISTORY: Low back pain. TECHNIQUE: AP, lateral and cone down lateral views of the javier mbar spine are presented. FINDINGS: There are five qbn-uab-ektsphg lumbar vertebra. No fracture or subluxations are noted. Right sided curvature of the lumbar spine is noted. L1-2 disc space narrowing is visualized. Questionable L3-4 mild disc space narrowing. There is moderate osteophyte formation. IMPRESSION: Lumbar spine degenerative changes as described a anny. Clinical Research Tech: PSCB Transcribe Date/Time: Oct 12 2019 4:19P Dictated by : BEATRIZ RUSSO MD This examination was interpreted and the report reviewed and electronically signed by: BEATRIZ RUSSO MD on Oct 12 2019 4:20PM EST [id number] progress on 2019-10 PROGRESS HNO ID: [id number] Normal 10-12-2019 [facility] Author: Kane Hollingsworth (Abigail Lundberg [place] ([id number]) Service: ? 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 Author: Quincy Rosen (Diaz) Raul [place] ([id number]) Service: ? Author Type: Physician Event Organizer Type: Progress Notes Filed: 10/12/2019 4:41 PM [...] upper extremity - COLONOSCOP W/ OR W/O [facility] SPEC 2002 Colonoscopy - COLONOSCOP W/ OR [...] 20 mg capsule TAKE 2 CAPSULES BY ONCE DAILY. 180 capsule 0 - montelukast [...] tendons. XR Lumbosacral interp: There are five kzj-bwr-okugcge lumbar vertebra. No fracture or subluxations are [...] - GABAPENTIN 300 MG CAPSULE F/u prn Quincy Carter PA-C cnov on 2019-10-12 CNOV Office Visit (FAMPWS) Normal 10-12-[address] [place] [address] [facility] LORETA HURST ([id number]) 1945 [facility] Date Time Provider Department ([id number]) 10/12/19 1:00 PM Quincy CARTER) FAMPWS During your visit today, we recorded the following informati on about you: Temperature Pulse Respiration Blood pressure 97.2 degrees 72/minute 16/minute 112/50 Weight 79.8 kg Quincy Carter PA-C 10/12/2019 4:41 PM Signed BP [...] upper extremity - COLONOSCOP W/ OR W/O [facility] SPEC 2002 Colonoscopy - COLONOSCOP W/ OR [...] tendons. XR Lumbosacral interp: There are five obt-cjf-dgvflvs lumbar vertebra. No fracture or subluxations are [...] Don Tigney spine handout given and reviewed. Muscl e energy techniques as shown 30 sec [...] understand and correctly use this information Pronunciation ([place] ba pen tin) Brand Names: [...] I need to call my doctor abo oh right away? WARNING/CAUTION: Even though it may [...] drug? All drugs may cause side effects. Howeve r, many people have no side effects [...] -Talk with the doctor before starting any francisca branham, including prescription or OTC, natural products, or [...] his mouth Date Reviewed: 10/12/2019 Reviewed by: Quincy Rosen (Timothy Carter - Fully Assessed Reason [...] [G63] Order(s):XR LUMBAR GENERAL 3 V AP/LAT/L5-S1 [[id number]] Order #: [id number] FUTURE CONSULT TO PHYSICAL THERAPY [9004] Order #: [id number]: 1 FUTURE gabapentin (NEURONTIN) 300 mg capsuleTake [...] I need to call my doctor abo ut right away? WARNING/CAUTION: Even though it may [...] been an overdose, call your poison c ontrol center or get medical care right away. [...] is not on file. Encounter Status:Closed by Quincy CARTER PA-C on 10/12/19 gow[place] cbc on 2018 Erythrocyte distribution 24.5 11.5-15.0 % High 09-23 [facility] width (RBC) [Ratio] [place] ([id number]) Hematocrit (Bld) [Volume 24.8 39.0-51.0 % Low 09-23 [facility] fraction] [place] ([id number]) Hemoglobin (Bld) 8.4 13.0-17.0 g/dL Low 09-23-2019 [facility] [Mass/Vol] [place] (77522) MCH (RBC) [Entitic mass] 36.2 26.0-34.0 pg High 09-23 [facility] (94902) MCHC (RBC) [Mass/Vol] 33.9 30.5-36.0 g/dL Normal 09-23-20 19 [facility] (72667) MCV (RBC) [Entitic vol] 106.9 80.0-100.0 fL High 09-23 [facility] (69589) Platelet mean volume 9.9 9.0-12.[address] [facility] (Bld) [Entitic vol] [place] (96633) Comment: Result Comment: Test perform ed by: [facility] [address] [place], [place] [address]. RBC (Bld) [#/Vol] 2.32 4.20-6.00 m/uL Low 09-23-2019 [facility] (46658) WBC (Bld) [#/Vol] 4.91 3.70-11.00 k/uL Normal 09-23-2019 [facility] (49083) [place] Platelet Cnt 315 150-400 k/uL Normal 9 [facility] (99409) obsolete on 2019-09 OBSOLETE Refill (HEMAWS) Normal 09-17-2019 [facility] LORETA HURST ([id number]) 1945 [place] Date Time Provider Department ([id number]) 09/17/19 STEVEN AKERS During your visit today, we [...] MARGOT DE LA ROSA LPN on 09/17/19 Vital Signs Vital Sign Description Value / Unit Date Location The following section is limited to 5 en tries per type and includes entries from the following time range: 20200629 - 20200611 0. Body mass index (BMI) Height (cm): 177.8 06-29-2020 [facility] ([id number]) [Ratio] Weight (kg): 77.3 BMI: 24.5 Encounters Date Type Reason Provider Location 08-22-2020 - Patient encounter Steven Hollingsworth Masci Hematology /Oncology 08-22-2020 procedure Comment: RE: [facility]gent [facility] 07-26-2020 - 07-26-2020 Patient encounter Steven Darrick Masci Hematology/Oncology procedure Comment: RE: [facility]gent [facility] 07-24-2020 - 07-24-2020 Patient encounter External Pro vider [facility] procedure 07-20-2020 - 07-20-2020 Patient encounter External Pro vider [facility] procedure 06-29-2020 - 06-29-2020 Patient encounter Steven Darrick Masci Hematology/Oncology procedure Comment: RE: Non-Urgent [facility] 06-20-2020 - Patient encounter Quincy Yuan) [facility] 06-20-2020 procedure Carter 07-24-2020 - Results Only External Provider External-N [facility] 07-24-2020 07-20-2020 - Results Only External Provider External-N [facility] 07-20-2020 06-20-2020 Results Only Quincy Yuan) Family [facility] katie [place] 08-23-2020 - Telephone encounter Steven Darrick Pinedai Hematolo gy/Oncology 08-23-2020 Comment: Transfusion 06-29-2020 - 06-29-2020 Telephone encounter Steven Darrick Tobar ci Hematology/Oncology Comment: Transfusion 06-22-2020 - 06-22-2020 Telephone encounter Quincy Yuan) Family Damion Pierre Comment: Insurance Authorization (Tad alafil) 06-12-2020 - 06-12-2020 Telephone encounter Quincy Yuan) Family Damion Pierre Comment: Appointment Procedures Procedure Name Date Provider Location EXTERNAL CARDIOLOGY 07-24-[address] [facility] ([id number]) EX[facility]-24-2020 [facility]15069[facility] EXTERNAL LAB 07-24-2020 External Provider [facility] ic (30474) EXTERNAL CARDIOLOGY 07-20-[address] [facility] (88124) EXTERNAL IMAGING 07-20-2020 External Provider [facility] jayla (06348) Polysom 6/>yrs sleep 4/> 06-20-2020 Quincy Rosen (Diaz) [facility] addl bettye attnd Raul (71949) Colonoscopy 04-30-2017 - [facility] 04-30-2017 (18635) Plan of Treatment Plan Description Date Location COLONOSCOPY COLONOSCOPY 04-30-2027 - [facility] 04-30-2027 (18430) COLORECTAL CANCER COLORECTAL CANCER 04-30-2027 [facility] inic SCREENING,SEE MODIFIER SCREENING,SEE MODIFIER (8 1357) DIABETES SCREEN DIABETES SCREEN 06-08-2023 - [facility] 06-08-2023 (58054) INFLUENZA (#1) INFLUENZA (#1) 2020 - [facility] 07-11-2020 (43004) LIPID SCREEN LIPID SCREEN 05-04-2020 - [facility] 05-04-2020 (63787) SHINGRIX VACCINE (2 of SHINGRIX VACCINE (2 of 09-01-2013 - [facility] 3) 3) 09-01-2013 (10645) ADVANCE DIRECTIVE ADVANCE DIRECTIVE 2009 - [facility] in DISCUSSION DISCUSSION 2009 (18370) DTAP,TDAP,TD (1 - Tdap) DTAP,TDAP,TD (1 - Tdap) 1963 - [facility] 1963 (28706) no information [facility] (70848) Immunizations Vaccine Notes Status Date Location Influenza Vaccine, influenza virus (completed) 09-04-2010 - [facility] Split-Non Spec vaccine, unspecified 09-04-2010 (4419 5) formulation Pneumococcal-13 Vac pneumococcal conjugate (completed) 05-04-2015 - [facility] Conjugate vaccine, 13 valent 05-04-2015 (74429) Pneumovax pneumococcal (completed) 03-24-2013 - [facility] c polysaccharide vaccine, 03-24-2013 (441 95) 23 valent Zostavax zoster vaccine, live (completed) 07-07-2013 - [facility] 07-07-2013 (51658) Payers Payer Name Policy Number Location PRIMETIME [id number] [facility] (44 195) The following information is from the original human readable contentNo Payer Records Found Social History Type Social History Date Location Description History of tobacco use Current smoker 11-09-1977 [facility] (95721) Exposure to SARS-CoV-[address] [facility] (event) (10612) History of tobacco use Cigarette Smoker 11-09-1977 [facility] (54985) Cigarettes smoked 06-15-2020 - [facility] ic current (pack per day) - 08-14-2020 (44200) Reported Tobacco use and exposure Never used 06-15-2020 [facility] 08-14-2020 (06069) Alcohol intake Current non-drinker of 06-15-2020 [facility] alcohol (finding) 08-14-2020 (80174) Tobacco Comment Smoked from age 15-32. 07-14-2015 - [facility] 07-14-2015 (44422) Sex Assigned At Male 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 Activity MPS 08-14-2020 (45685) History SDOH Education 9 08-14-2020 - [facility] 08-14-2020 (73099) History SDOH Financial 5 08-14-2020 - 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 [facility] provides no warranty or guarantee of the accuracy or completeness of information in this document. UNRECOGNIZED CONTENT PROVIDED BELOW FOR UNRECOGNIZED SECTION Source Comments In the event this information is protected by the Federal Confidentiality of Alcohol and Drug Abuse Patient Records regulations: The Federal rules restrict any use of the information to criminally investigate or prosecute any alcohol or drug abuse patient.[facility] the event this information is protected by the Federal Confidentiality of Alcohol and Drug Abuse Patient Records regulations: The Federal rules restrict any use of the information to criminally investigate or prosecute any alcohol or drug abuse patient.[facility] the event this information is protected by the Federal Confidentiality of Alcohol and Drug Abuse Patient Records regulations: The Federal rules restrict any use of the information to criminally investigate or prosecute any alcohol or drug abuse patient.[facility] the event this information is protected by the Federal Confidentiality of Alcohol and Drug Abuse Patient Records regulations: The Federal rules restrict any use of the information to criminally investigate or prosecute any alcohol or drug abuse patient.[facility] the event this information is protected by the Federal Confidentiality of Alcohol and Drug Abuse Patient Records regulations: The Federal rules restrict any use of the information to criminally investigate or prosecute any alcohol or drug abuse patient.[facility] the event this information is protected by the Federal Confidentiality of Alcohol and Drug Abuse Patient Records regulations: The Federal rules restrict any use of the information to criminally investigate or prosecute any alcohol or drug abuse patient.[facility] the event this information is protected by the Federal Confidentiality of Alcohol and Drug Abuse Patient Records regulations: The Federal rules restrict any use of the information to criminally investigate or prosecute any alcohol or drug abuse patient.[facility] the event this information is protected by the Federal Confidentiality of Alcohol and Drug Abuse Patient Records regulations: The Federal rules restrict any use of the information to criminally investigate or prosecute any alcohol or drug abuse patient.[facility] the event this information is protected by the Federal Confidentiality of Alcohol and Drug Abuse Patient Records regulations: The Federal rules restrict any use of the information to criminally investigate or prosecute any alcohol or drug abuse patient.[facility] the event this information is protected by the Federal Confidentiality of Alcohol and Drug Abuse Patient Records regulations: The Federal rules restrict any use of the information to criminally investigate or prosecute any alcohol or drug abuse patient.[facility] the event this information is protected by the Federal Confidentiality of Alcohol and Drug Abuse Patient Records regulations: The Federal rules restrict any use of the information to criminally investigate or prosecute any alcohol or drug abuse patient.[facility] the event this information is protected by the Federal Confidentiality of Alcohol and Drug Abuse Patient Records regulations: The Federal rules restrict any use of the information to criminally investigate or prosecute any alcohol or drug abuse patient.[facility] CenterIn the event this information is protected by the Federal Confidentiality of Alcohol and Drug Abuse Patient Records regulations: The Federal rules restrict any use of the information to criminally investigate or prosecute any alcohol or drug abuse patient.[facility] CenterIn the event this information is protected by the Federal Confidentiality of Alcohol and Drug Abuse Patient Records regulations: The Federal rules restrict any use of the information to criminally investigate or prosecute any alcohol or drug abuse patient.[facility] CenterIn the event this information is protected by the Federal Confidentiality of Alcohol and Drug Abuse Patient Records regulations: The Federal rules restrict any use of the information to criminally investigate or prosecute any alcohol or drug abuse patient.[facility] CenterIn the event this information is protected by the Federal Confidentiality of Alcohol and Drug Abuse Patient Records regulations: The Federal rules restrict any use of the information to criminally investigate or prosecute any alcohol or drug abuse patient.[facility] UNRECOGNIZED CONTENT PROVIDED BELOW FOR UNRECOGNIZED SECTION Reason for Visit Reason Onset Date Comments Insurance Authorization 06/22/2020 Tadalafil Reason Onset Date Comments Transfusion 06/29/2020 Reason Onset Date Comments Appointment 06/12/2020 Reason Comments Transfusion UNRECOGNIZED CONTENT PROVIDED BELOW FOR UNRECOGNIZED SECTION Miscellaneous Notes Telephone Encounter - Malachi Leach LPN - 06/26/2020 3:12 PM EDTApproval recieved and sent to scanning. Stacey Leach LPN elephone Encounter - Vadim Lagunas - 06/22/2020 1:48 [address]TStephanie [facility] call stating medication has been approved. She will fax details. elephone Encounter - Malachi Leach LPN - 06/22/2020 10:03 AM EDTPrior Authorization has been completed online at [employer] for Tadalafil, will await response. ORTEGA- [id number] Please keep encounter open until final decision has been received and documented from insurance company. Stacey Leach LPN documented in this encounterTelephone Encounter - Margot De La Rosa LPN - 06/29/2020 12:20 PM EDTPatient scheduled for 2 units PRBC's 06/30/2020 @ 0900, [facility]. Orders faxed. Patient and lab aware. Margot De La Rosa LPN documented in this encounterTelephone Encounter - Patricia Poe LPN - 06/12/2020 12:56 PM EDTLEFT MESSAGE FOR PATIENT TO CALL OFFICE. elephone Encounter - Patricia Poe LPN - 06/12/2020 12:46 PM EDTPlease schedule 3 month follow up ThanksMauro PA-C documented in this encounterTelephone Encounter - Margot De La Rosa LPN - 08/23/2020 11:03 AM EDTPatient scheduled for 1 unit PRBC 08/24/2020 @ 0830, [facility]. Orders faxed. Patient and lab aware. Margot De La Rosa LPN documented in this encounter UNRECOGNIZED CONTENT PROVIDED BELOW FOR UNRECOGNIZED SECTION No Status Records Found UNRECOGNIZED CONTENT PROVIDED BELOW FOR UNRECOGNIZED SECTION INFORMATION SOURCE DATE CREATED AUTHOR AUTHOR'S ORGANIZATIO N 08/24/2020 [facility] mirna
== END ==
PROVIDERS: PCP Physician Assistant; Referring Provider Internal Medicine Hematology & Oncology; Visit Provider Internal Medicine Hematology & Oncology
DX: D46.20 Refractory anemia with excess of blasts, unspecified (principal)
CPT/HCPCS: 36430; 86850; 86900; 86901; 86920; 86922; J7040; P9016; A4216

== ENCOUNTER → 2020-05-26 09:34 | Outpatient (CLI) | payer MEDICARE, SELFPAY ==
[2020-04-21 11:00] VITALS: BMI 24.8
[2020-05-26] VITALS (8 sets, daily range): BP systolic 119–141; BP diastolic 50–57; PULSE 57–71; RESP 14–16; TEMP 35.8–36.8; O2SAT 96–100; BMI 24.8
[2020-05-26] MEDS: 0.9% NaCl Peripheral Flush Adult/Peds IV (09:58)
== END ==
PROVIDERS: PCP Physician Assistant; Referring Provider Internal Medicine Hematology & Oncology; Visit Provider Internal Medicine Hematology & Oncology
DX: D46.20 Refractory anemia with excess of blasts, unspecified (principal)
CPT/HCPCS: 36430; 86850; 86900; 86901; 86920; 86922; J7040; P9016; A4216

== ENCOUNTER 2020-05-28 16:59 | Emergency (ER) | payer MEDICARE, SELFPAY ==
[2020-05-26 09:46] VITALS: BMI 24.8
[2020-05-28 17:01] VITALS: BP 159/71; PULSE 86; RESP 16; TEMP 37.5; O2SAT 97; BMI 24.8
--- NOTE | 2020-05-28 17:21 | ED.DCSUM_ITS ---
History of Present Illness Chief Complaint: Complaint Informant: Patient, Significant Other Onset: Today Context: Gradual Onset Timing: Continuous Quality: see below -- urinary sx only Location: urinary Current Severity: Severe Maximum Severity: Severe Worsened by: urinating Relieved by: nothing. drank bunch of water, took cranberry pills. Associated Symptoms: burning dysuria, urinary urgency and frequency, incontinence, hematuria Narrative: Starting this morning, patient with small amounts of hematuria and very small clots, burning dysuria, urinating very frequently, and incontinent of urine at times. When asked in more detail, he is only incontinent when he feels urinary urgency and cannot make it to the toilet in time, resulting in a small amount of leakage. Once he gets there, he is able to urinate. He has had no episodes of feeling like he needs to urinate but then not being able. He denies any systemic symptoms. He has chronic mild discomfort in his low back, that is no different. There is no lateralizing abdominal or back discomfort and he denies abdominal pain. No nausea, vomiting, there was an episode of feeling hot last night but he did not have a fever. He is on no anticoagulant, but has been taking a baby aspirin daily for the last several weeks. He recently had blood work and a transfusion which she does routinely about every 3 or 4 weeks for MDS/Waldenstrom macroglobulinemia. He is on no immun osuppressant medications or chemotherapy or prednisone. - Past Medical History (1) Waldenstrom macroglobulinemia Status: Chronic (2) Myelodysplastic syndrome Status: Chronic (3) Hypertension Status: Chronic Past Medical History - Allergies and Home Meds Allergies/Adverse Reactions: Allergies levofloxacin [From Levaquin] Allergy (Verified 05/28/20 17:00) Other WALKING AND PASSED OUT AND FELL INTO A WALL sulfamethoxazole [From Bactrim] Adverse Reaction (Verified 05/28/20 17:00) Other SORE THROAT trimethoprim [From Bactrim] Adverse Reaction (Verified 05/28/20 17:00) Other SORE THROAT Primary Care Physician: Sunday Carter PA [Primary Care Provider] - Lives: Spouse/ Significant Other Smoking Status: Former smoker Review of Systems General: Denies: Chills, Fever, Sweats Eyes: Denies: Visual changes - bilaterally, Diplopia ENT: Denies: Rhinorrhea, Sore throat Cardiovascular: Denies: Chest pain, Palpitations Respiratory: Denies: Dyspnea, Cough, Dyspnea on exertion Gastrointestinal: Denies: Abdominal pain, Nausea, Vomiting, Diarrhea, Melena, Hematochezia Genitourinary: Reports: Dysuria, Hematuria, Frequency Musculoskeletal: Reports: Back pain. Denies: Myalgias, Neck pain, Extremity Pain Skin: Denies: Rash, Wounds Neurological: Denies: Headache, Weakness, Numbness Physical Exam Vital Signs/Narrative: Vital Signs Temp Pulse Resp BP Pulse Ox 05/28/20 17:01 99.5 F H 86 16 159/71 H 97 General: Well nourished, Well developed, No Acute Distress Head: Normocephalic, Atraumatic Eyes: Perrl, EOMI ENT: Moist mucous membranes, No rhinorrhea Neck: Supple, Nontender Cardiovascular: Regular rate, Regular rhythm, No murmurs. Negative for: Tachycardia Respiratory: No distress, CTA bilaterally, Chest nontender Abdomen: Soft, Nondistended, Normal bowel sounds, No masses, Tender - Suprapubic mostly. Mildly tender throughout the lower abdomen. Otherwise nontender.. Negative for: Guarding, Rebound tenderness Back: Nontender, Normal Inspection. Negative for: CVA tenderness Extremities: Nontender, No edema Skin: Normal color, No rash Neurological: Alert, Oriented x3, Cranial nerves II-XII grossly intact, Normal Strength, Normal Sensation, Normal Gait Psychological: Normal affect, Normal Mood Diagnostic/Tx/Re-eval Laboratory Results 05/28/20 17:04 Urine Color Yellow Urine Clarity Sl. Cloudy Urine pH 8.0 Ur Specific [place] 1.010 Urine Protein 15 H Urine Glucose (UA) Normal Urine Ketones Negative Urine Occult Blood 250 H Urine Nitrite Negative Urine Bilirubin Negative Urine Urobilinogen Normal Ur Leukocyte Esterase 100 H Urine RBC 0-5 SEEN Urine WBC 5-10 SEEN Ur Squamous Epith Cells 0 SEEN Urine Bacteria RARE Urine Mucus 0 SEEN - Medical Decision Making Nursing did a bedside bladder scan, it estimated 100 cc, inconsistent with acute urinary retention. The patient did urinate a small amount, there was no gross blood or grossly visible clots. It is consistent with infection as above, and this was sent for culture and he was started on cephalexin. He has an allergy to Bactrim. He had blood work couple days ago that showed hemoglobin of 8.5, he states he had a blood transfusion. His other tests were unremarkable and I do not think those need to be repeated since he has no systemic symptoms. He does not have acute urinary retention or have any other need for a Delacruz catheter/bladder irrigation at this time. I think treating with antibiotic to see if he gets better as well as Azo/Pyridium would be reasonable, discussed with him and and they agree with that plan. ED Disposition - Plan for ED Patient: Disposition: Home or Assisted Living Diagnosis: Acute hemorrhagic cystitis Instructions: ED CYSTITIS Male Adult Prescriptions: Cephalexin [Keflex] 500 mg PO 4X/DAY #28 cap [id number] Phenazopyridine HCl [Pyridium] 100 mg PO TID PRN #6 tab PRN Reason: dysuria Transmission Status[id number] Referrals: Sunday Carter PA [Primary Care Provider] - 3-5 Days if not improving Additional Instructions: Your urine does appear to be infected. We sent your urine for a culture.
[2020-05-28 17:50] LABS: Mucous, Urine 0 SEEN /hpf (<or=2+); Squamous Epithelial Cells - UA 0 SEEN /hpf (0-5)
[2020-05-28 17:52] LABS: Color, Urine Yellow (Yellow); Glucose, Dipstick Normal (Normal); Ketone-Dipstick Negative (Negative); Leukocyte Esterase-Dipstick 100 /ul (Negative); Nitrite-Dipstick Negative (Negative); Occult Blood-Urine 250 /ul (Negative); Protein-Dipstick 15 mg/dl (Negative); Urine Bilirubin Dipstick Negative (Negative); Urine Clarity Sl. Cloudy (Clear); Urine Urobilinogen Normal (Normal)
[2020-05-28 17:58] LABS: Red Blood Cells-Urine 0-5 SEEN /hpf (0-5); White Blood Cells 5-10 SEEN /hpf (0-5)
[2020-05-28 17:59] LABS: Bacteria RARE /hpf (None Seen)
[2020-05-28] MEDS: Cephalexin 250 MG Capsule 500 MG PO (18:18)
[2020-05-28] MEDS: Phenazopyridine 95 MG Tablet 190 MG PO (18:18)
[2020-05-28 18:20] VITALS: BP 144/63; PULSE 87; RESP 17; O2SAT 94
== END 2020-05-28 18:22 | disposition home or self-care (01) ==
PROVIDERS: Emergency Provider Emergency Medicine; PCP Physician Assistant
DX: N30.01 Acute cystitis with hematuria (principal); R32 Unspecified urinary incontinence; D46.9 Myelodysplastic syndrome, unspecified; C88.0 Waldenstrom macroglobulinemia; I10 Essential (primary) hypertension; Z79.82 Long term (current) use of aspirin; Z79.899 Other long term (current) drug therapy; Z87.891 Personal history of nicotine dependence
CPT/HCPCS: 81001; 87086; 87088; 87186; 99283

== ENCOUNTER 2020-05-30 15:10 | Inpatient (IN) | payer MEDICARE, SELFPAY ==
[2020-05-30] VITALS (16 sets, daily range): BP systolic 135–169; BP diastolic 43–89; PULSE 74–98; RESP 17–46; TEMP 38.7–40.2; O2SAT 91–98; BMI 27.1; BMI 26.6; BMI 26.7
--- NOTE | 2020-05-30 15:27 | RAD_ITS ---
STUDY: X-RAY CHEST REASON FOR EXAM: Male, 75 years old. Cough. TECHNIQUE: Single frontal view of the chest. COMPARISON: None. FINDINGS: Left basilar atelectasis. There is no demonstrated pleural abnormality. Prominent cardiac silhouette. Normal mediastinum and sybil. Normal visualized pulmonary arteries. Normal visualized aortic arch and descending thoracic aorta. Normal visualized thoracic spine. Normal visualized ribs, clavicles, and shoulders. There is no demonstrated abnormality of the visualized soft tissue structures of the upper abdomen. RAD/Chest 1 View (Portable) IMPRESSION: Left basilar atelectasis. Electronically Signed: Shaheed Streeter MD at 17:12 EDT Tel , Service support ,
--- NOTE | 2020-05-30 15:27 | EKG12_ITS ---
Test Reason : SOB Blood Pressure : / mmHG Vent. Rate : 095 BPM Atrial Rate : 095 BPM P-R Int : 168 ms QRS Dur : 078 ms QT Int : 320 ms P-R-T Axes : 061 025 040 degrees QTc Int : 402 ms Normal sinus rhythm Normal ECG Confirmed by JANEL BEAN ([id number]), manuscript editor LAUREN TURK ([id number]) on 06/01/2020 2:45:51 PM Referred By: GAEL Confirmed By:JANEL BEAN
[2020-05-30] MEDS: Ondansetron 4 MG/2 ML Vial IV (15:52)
[2020-05-30] MEDS: Lidocaine Jelly 2% 20 ML Syringe (URO-JET) 20 APPLIC TOPICAL (15:52)
[2020-05-30] MEDS: Morphine 4 MG/ML Syringe IV ×2 (15:52→20:05)
[2020-05-30] MEDS: 0.9% Normal Saline 1,000 ML 150 ML IV (15:55)
[2020-05-30 16:10] LABS: Absolute Lymphocyte Count 0.26 X10^3/uL (0.83-4.51); Absolute Neutrophil Count 8.4 X10^3/uL (2.0-7.7); Basophil# 0.02 X10^3/uL; Basophil% 0.2 % (0-1); Hematocrit 24.9 % (40-54); Hemoglobin 8.4 g/dL (13.0-16.5); Lymphocyte # 0.26 X10^3/ul (4.0); Lymphocyte % 2.8 % (19-41); Mean Corp Hgb Conc 33.7 g/dL (32-36); Mean Corpuscular Hgb 35.4 pg (27.0-32.0); Mean Corpuscular Volume 105.1 fL (80-94); Mean Platelet Vol. 11.7 fl (6.2-12.0); Monocyte# 0.44 X10^3/uL; Monocyte% 4.8 % (0-10); NRBC Flagged by Analyzer 0 % (0-5); Neutrophil # 8.43 X10^3/uL (2.7-7.7); Neutrophil % 91.8 % (47-70); POSITIVE DIFFERENTIAL YES; POSITIVE MORPHOLOGY YES; Platelet Count 204 K/mm3 (150-450); RBC Distribution Width CV 24.9 % (11.6-14.6); RBC Distribution Width SD 93.8 fl (35.1-43.9); Red Blood Count 2.37 M/mm3 (4.6-6.2); White Blood Count 9.2 K/mm3 (4.4-11.0)
[2020-05-30 16:17] LABS: Differential Indicated SCAN CRITERIA MET; Lactic Acid 1.4 mmol/L (0.4-1.9)
[2020-05-30 16:20] LABS: International Normalized Ratio 1.4; Prothrombin Time (Protime)PT. 16.2 SECONDS (11.7-14.9)
[2020-05-30 16:21] LABS: Partial Thromboplast Time 31.7 Seconds (24.1-36.2)
[2020-05-30 16:28] LABS: Bacteria 0 SEEN /hpf (None Seen); Mucous, Urine 0 SEEN /hpf (<or=2+); Red Blood Cells-Urine 0 SEEN /hpf (0-5); Squamous Epithelial Cells - UA 0 SEEN /hpf (0-5)
[2020-05-30 16:28] LABS: ALB/GLOB Ratio 1.1 RATIO (0.9-2.4); AST(SGOT) 47 U/L (15-37); Alanine Aminotransfer ALT/SGPT 72 U/L (16-61); Albumin, Serum 3.9 g/dL (3.2-5.0); Alkaline Phosphatase 86 U/L (45-117); Anion Gap 5 (5-15); BUN 15 mg/dL (7-18); BUN/Creat Ratio 17.3 RATIO (10-20); Calcium,Total 8.7 mg/dL (8.5-10.1); Chloride 99 mmol/L (98-107); Creatinine, Serum 0.87 mg/dL (0.70-1.30); EST Glomerular Filtration Rate 91 mL/min (>60); Est Glom Filt Rate - Afr Amer 110 mL/min (>60); Estimated Creatinine Clearance 74.58 ml/min; Globulin 3.4 g/dL (2.2-4.2); Glucose 131 mg/dL (74-106); Protein, Total 7.3 g/dL (6.4-8.2); Sodium Level 130 mmol/L (136-145)
[2020-05-30 16:32] LABS: Glucose, Dipstick Normal (Normal); Ketone-Dipstick Negative (Negative); Leukocyte Esterase-Dipstick 25 /ul (Negative); Nitrite-Dipstick Positive (Negative); Occult Blood-Urine 10 /ul (Negative); Protein-Dipstick 30 mg/dl (Negative); Specific Gravity, Urine 1.015 (1.002-1.030); Urine Clarity Clear (Clear); Urine Urobilinogen 8 mg/dl (Normal)
[2020-05-30 16:37] LABS: Color, Urine SEE COMMENT BELOW (Yellow); Urine Bilirubin Dipstick 3 mg/dL (Negative)
[2020-05-30 16:38] LABS: White Blood Cells 0-5 SEEN /hpf (0-5)
[2020-05-30 17:04] LABS: Platelet Estimate ADEQUATE (ADEQ)
[2020-05-30 17:05] LABS: Anisocytosis 2+; Macrocytosis 2+; Red Cell Morphology N CHROM NORMAL (NORM C&C)
[2020-05-30 17:06] LABS: D-Dimer Quantitative (DVT/PE) 1.01 FEU/ug/m (0.27-0.49)
--- NOTE | 2020-05-30 17:08 | CT_ITS ---
STUDY: CTA CHEST REASON FOR EXAM: Male, 75 years old. CURRENT UTI, HX-LYMPHOMA, ASTHMA, CONFUSION, ?PE RADIATION DOSAGE (If Supplied By Facility): CTDIvol = ( 12.09 ) mGy, DLP = ( 478.46 ) mGycm TECHNIQUE: The examination was performed with the intravenous administration of IV 100mL Isovue-370. Post-processing of the angiographic images was performed, with multiplanar reformation and 3D reconstruction. Individualized dose optimization techniques were used for this CT. COMPARISON: None. FINDINGS: Normal enhancement of the main pulmonary artery and right and left pulmonary arteries. Normal enhancement of the bilateral peripheral pulmonary arteries. There is no demonstrated pulmonary embolism. Normal thoracic aorta and visualized great vessels. There is no demonstrated aortic dissection. Normal heart and pericardium. Normal mediastinum. Normal hilar regions. Normal visualized trachea and bronchi. Diffuse interstitial pulmonary edema. Normal pleura. 5 x 4 cm lipoma in the musculature of the left anterior shoulder. Normal osseous structures. Normal visualized upper abdomen. CT/CTA Chest W/WO Contrast IMPRESSION: No pulmonary embolus. Diffuse interstitial pulmonary edema. Electronically Signed: Shaheed Streeter MD at 18:14 EDT Tel , Service support ,
[2020-05-30] MEDS: Acetaminophen 500 MG Tablet 1000 MG PO (17:25)
[2020-05-30] MEDS: Ceftriaxone 1 GM/50 ML BAG IV (17:49)
--- NOTE | 2020-05-30 18:48 | ED.VISSUMM ---
- ER Visit Summary Date of Service: 05/30/20 Chief Complaint: Dysuria History of Present Illness: The patient is a 75 M who sees Mauro Carter and Dr. Akers. He reports he has dysuria that began 2 days ago. He was seen in the emergency department and placed on Keflex and has not had any improvement. Reports a fever of 102 degrees and chills. He also reports he has a cough that began today. He has chest pain that he reports is increased with urinating. It then radiates down his right arm. This is been constant for the past 3 days. Reports that he is been mildly short of breath. He also complains of a mild headache. Patient does not have a known COVID exposure. However, he has had sick contacts. He does not wear a mask when he goes out. Physical Examination: Vitals: 104.3, 157 or 59, 90, 23, 77% on room air which is hypoxic. General: Well-nourished and well-developed. Head: Normocephalic atraumatic. Neck: Supple, no lymphadenopathy. No JVD. Nontender. Cardiovascular: Regular rate and rhythm. 2 out of 6 systolic murmur. Respiratory: No respiratory distress. Clear to auscultation bilaterally. Abdominal: Soft, mild suprapubic tenderness to palpation, nondistended, normal bowel sounds. No guarding, rebound, or peritoneal signs. Back: Nontender. Extremities: Nontender, 2+ pitting edema lower extremities bilaterally. Skin: Normal color, no rash. Neurologic: Alert and oriented ?3. Cranial nerves II through XII are intact. Normal strength and sensation. Psych: Normal affect. Test Results: EKG is sinus at [address] changes. Troponin is negative. D-dimer is 1.01. UA shows leukocytes and nitrites. Lactic acid is 1.4. COVID is negative. LFTs show total bili of 2.6, ALT of 72, AST 47. INR is 1.4. PTT is 31.7. Chem-7 shows a sodium of 130 and glucose 131. CBC shows an H&H 8.4 and 24.9, 7 neutrophils 93, lymphocytes 3. Clinical Impression(s) from Imaging Studies Chest X-Ray 05/30/20 15:27 IMPRESSION: Left basilar atelectasis. Electronically Signed: Shaheed Streeter MD at 17:12 EDT Tel , Service support , Chest CTA 05/30/20 17:08 IMPRESSION: No pulmonary embolus. Diffuse interstitial pulmonary edema. Electronically Signed: Shaheed Streeter MD at 18:14 EDT Tel , Service support , Emergency Department Course and Treatment: I had concerned the patient had urinary retention and a Delacruz catheter was placed. He has blood-tinged urine returned. He is only had 300 cc of urine out. He was given a dose of Rocephin IV, Lasix IV, and Tylenol p.o. Urine culture from the showed E. coli that was pansensitive. Treatment Plan: Patient likely has COVID-19 even though his test was negative. He has a temperature of 104 degrees and his pulse ox is decreased into the high 70s on room air. Currently he is 92% on 4 L and does not appear to be in any distress. The patient was discussed with Dr. Will who agrees that he likely does have COVID-19. At this time the patient is full code. However, given that he looks comfortable I do not feel that intubation is indicated at this time. The patient was discussed with Dr. Davis and will be admitted to the ICU for further evaluation treatment. Disposition: Admitted in critical condition Impression: 1. UTI. 2. Hypoxia. 3. URI. 4. Probable COVID-19 infection. 5. Critical care time 33 minutes. 6. Sepsis. This note was generated with [employer] software. It may contain incorrect words, spelling, and punctuation that were not noted in review of the chart prior to signing ED Disposition - Plan for ED Patient: Referrals: Sunday Carter PA [Primary Care Provider] -
[2020-05-30] MEDS: Furosemide 40 MG/4 ML Vial IV (18:55)
--- NOTE | 2020-05-30 19:04 | PCM.HP.STD ---
Problem List (1) Sepsis Status: Acute (2) Acute cystitis Status: Acute History of Present Illness Date of Admission: 05/30/20 Chief Complaint: Dysuria The patient is a 75 year old M significant history of asthma; myelodysplastic syndrome; and lymphoma who presents to the emergency department with a 2-day history of progressively worsening dysuria. Patient was at the emergency department 2 days ago and was given Keflex and Pyridium. His symptoms improved only to worsen later on. Associated with his symptoms is chills and fever. Reportedly at home his temperatures was between 99 to 100 ?F. Associated with symptoms is chills and malaise. He has a chronic left leg swelling which has increased. His attributed increased left leg swelling to patient not wearing his GERRI hose. On the day of presentation patient had a nonproductive cough. Patient denies shortness of breath. Also associated with symptoms is chest pain that radiates to his right arm. Patient has not been able to wear a mask. However he denies knowingly being in close contact with anybody who is sick. At emergent department patient was hypoxic with his oxygen saturation in the 70s on room air. His oxygen saturation improved to 94 with nasal cannula. Chest CTA showed pulmonary edema. Emergent department doctor discussed the case with export sales assistant who recommended the patient be admitted to the intensive care unit. Past Medical History Past Medical History (Chronic Problems): Chronic Problems Waldenstrom macroglobulinemia (Chronic) Myelodysplastic syndrome (Chronic) Hypertension (Chronic) Allergies levofloxacin [From Levaquin] Allergy (Verified 05/30/20 15:12) Other WALKING AND PASSED OUT AND FELL INTO A WALL sulfamethoxazole [From Bactrim] Adverse Reaction (Verified 05/30/20 15:12) Other SORE THROAT trimethoprim [From Bactrim] Adverse Reaction (Verified 05/30/20 15:12) Other SORE THROAT Home Medications: Ambulatory Orders Medication Instructions Recorded [place]-3 Fatty Acids/Fish Oil [Fish 1 each PO BID 05/22/17 Oil 1,000 mg Capsule] Montelukast [Singulair] 10 mg PO QHS 08/24/18 Omeprazole [Prilosec] 40 mg PO DAILY 08/24/18 Pyridoxine HCl [Vitamin B-6] 100 mg PO BID 08/24/18 Gabapentin [Neurontin] 300 mg PO TID 10/29/19 Cephalexin [Keflex] 500 mg PO 4X/DAY #28 cap 05/28/20 Phenazopyridine HCl [Pyridium] 100 mg PO TID PRN #6 tab 05/28/20 Calcium Carbonate [Calcium] 500 mg PO DAILY 05/30/20 Cholecalciferol (Vitamin D3) 2,000 unit PO DAILY 05/30/20 [Vitamin D3] Cranberry 1,600 mg PO DAILY PRN PRN 05/30/20 Surgical History: herniorrhaphy, - - Multiple lipoma removal. Lives: Spouse/ Significant Other Smoking Status: Former smoker Alcohol: None - *Family History Maternal History Items: Diabetes, Heart Disease Paternal History Items: Stroke - His father from a stroke at the age of 95. Review of Systems Constitutional: Reports: Chills, Fever, Malaise. Denies: Weight Change HEENT: Denies: Head Aches, Sinus Congestion, Sinus Drainage Cardiovascular: Reports: Chest Pain, Edema - Left leg. Denies: Palpitations Respiratory: Reports: Cough. Denies: Shortness of breath at rest, Sputum production Gastrointestinal: Reports: Constipation. Denies: Abdominal Pain, Nausea, Vomiting Genitourinary: Reports: Dysuria Musculoskeletal: Denies: Joint Pain, Joint Tenderness Skin: Denies: Rash, Wounds Neurological: Denies: Numbness, Tingling, Focal weakness Psychiatric: Denies: Anxiety, Depression, Homicidal Ideations, Suicidal Ideations Hematologic/ Lymphatic: Denies: Easy Bruising, Easy Bleeding VTE Information - Inpt Only VTE Present on Admission: No VTE Mechan Device Prophylaxis: None VTE Pharm Prophylaxis ordered?: Yes Patient Problems: Active and Suspected Problems Sepsis (Acute) Acute cystitis (Acute) - Physical Exam Vitals/I&O's: Vital Signs Temp Pulse Resp BP Pulse Ox 102.7 F H 81 46 H 138/89 H 96 05/30/20 18:51 05/30/20 18:51 05/30/20 18:51 05/30/20 18:51 05/30/20 18:51 Oxygen Flow Rate (L/min) 5 Oxygen Delivery Method Nasal Cannula Weight: 85.9 kg Body Mass Index (BMI) 27.1 General: Alert, Oriented x3, Cooperative HEENT: Atraumatic, PERRLA, EOMI, Normocephalic Neck: Supple, No JVD, Negative Carotid Bruits Lungs: Rales, Tachypneic Cardiovascular: Regular rate, Normal S1, Normal S2, No murmurs Abdomen: Bowel Sounds Present, Soft, Non Tender Extremities: Capillary Refill Less than 3 Seconds, Edema - Left foot and left lower leg. Skin: No rashes, No breakdown Musculoskeletal: No Tenderness to Palpation of Joints or Extremities Neurological: Cranial nerves II-XII grossly intact Psych/Mental Status: Normal Affect, Appropriate Laboratory Results 05/30/20 15:40: COVID-19 (KATLIN) Negative 05/30/20 15:45: WBC 9.2, RBC 2.37 L, Hgb 8.4 L, Hct 24.9 L, MCV 105.1 H, MCH 35.4 H, MCHC 33.7, RDW Std Deviation 93.8 H, RDW Coeff of Jcarlos 24.9 H, Plt Count 204, MPV 11.7, Immature Gran % (Auto) 0.400, Neut % (Auto) 91.8 H, Lymph % (Auto) 2.8 L, Parke % (Auto) 4.8, Eos % (Auto) 0.0, Baso % (Auto) 0.2, Absolute Neuts (auto) 8.4 H, Absolute Lymphs (auto) 0.26 L, Nucleated RBC % 0, Differential Comment SEE COMMENT, Platelet Estimate ADEQUATE, RBC Morphology N CHROM, Anisocytosis 2+, Macrocytosis 2+ 05/30/20 15:45: PT 16.2 H, INR 1.4, APTT 31.7, D-Dimer Quant (PE/DVT) 1.01 H* 05/30/20 15:45: Sodium 130 L, Potassium 4.0, Chloride 99, Carbon Dioxide 26.0, Anion Gap 5, BUN 15, Creatinine 0.87, Estim Creat Clear Calc 74.58, Est GFR (MDRD) Af Amer 110, Est GFR (MDRD) Non-Af 91, BUN/Creatinine Ratio 17.3, Glucose 131 H, Calcium 8.7, Total Bilirubin 2.60 H, AST 47 H, ALT 72 H, Alkaline Phosphatase 86, Total Protein 7.3, Albumin 3.9, Globulin 3.4, Albumin/Globulin Ratio 1.1 05/30/20 15:45: Lactic Acid 1.4 05/30/20 16:20: Urine Color SEE COMMENT BELOW, Urine Clarity Clear, Urine pH 5.0, Ur Specific [place] 1.015, Urine Protein 30 H, Urine Glucose (UA) Normal, Urine Ketones Negative, Urine Occult Blood 10 H, Urine Nitrite Positive H, Urine Bilirubin 3 H, Urine Urobilinogen 8 H, Ur Leukocyte Esterase 25 H, Urine RBC 0 SEEN, Urine WBC 0-5 SEEN, Ur Squamous Epith Cells 0 SEEN, Urine Bacteria 0 SEEN, Urine Mucus 0 SEEN Assessment/Plan All Active Problems Sepsis (Acute) Acute cystitis (Acute) The patient is a 75 year old M significant history of asthma; myelodysplastic syndrome; and lymphoma who presents to the emergency department with outpatient diagnosed UTI; with worsening symptoms on antibiotics; fever; chills; and hypoxia who tested negative for cough at the ED. Sepsis second to likely acute cystitis. Will admit to the intensive care unit. Patient with a T-max of 104.3 F at the emergency department; respiratory rate of more than 20 Heart rate of more than 90. Review of emergency department labs showed abnormal urinalysis with protein; nitrites and leukocyte esterase. Urine bacteria was negative. But of note patient had been on antibiotics for 2 days. Blood culture was obtained in the emergency department; follow. Follow urine culture obtained emergency department. Lactic acid at the emergency department was unremarkable. Review of old records shows that urine culture on 05/28/2021 was remarkable for presumptive E. coli which was pansensitive and ESBL negative. Patient was given ceftriaxone in the emergency department. We will dose ceftriaxone 1 g every 12 hours. Tylenol PRN for fever. Trend CBC and CMP. Acute respiratory insufficiency Actual chest x-ray imaging was independently reviewed. Chest x-ray showed left basilar atelectasis. I agree radiologist interpretation. Chest CTA with no pulmonary embolus but diffuse interstitial pulmonary edema. Was initially started on maintenance IV fluids at emergency department. Lasix 40 mg IV was ordered by emergency department physician Since patient will be receiving 2 units of blood ordered at the emergency department will order another Lasix 40 mg IV in a.m.. Incentive spirometer ordered We will get an echocardiogram. Albuterol inhalation as needed for shortness of breath. Covid screen at emergency department was negative. Will order other markers of covid including ferritin triglyceride; troponin; and orders. Continue enhanced droplet precautions started at the emergency department. Mucinex for cough. Chest pain Likely pleuritic from coughing. Echocardiogram as above Trend troponin Received morphine at emergency department. Oxycodone PRN ordered. Left lower extremity swelling Likely chronic. We will hold off Doppler at this time. Patient to continue home GERRI hose. Acute on chronic anemia Patient with a history of myelodysplastic syndrome. Can not rule out contributory inflammatory anemia at this time. Reportedly about 4 days ago patient received 2 units of blood. Reportedly his hemoglobin at that time was 8.5. On this presentation his hemoglobin is 8.4. Emergency department doctor ordered 2 units of blood. Follow CBC in a.m. Constipation Scheduled MiraLAX PRN Senokot as ordered. DVT prophylaxis Continue GERRI hose from home CTA chest was negative. Lovenox per suspect covid protocol Inpatient E&M: 09396 Init Hosp L3
--- NOTE | 2020-05-30 19:37 | ECHOD_ITS ---
Version 2 Reason For Study: CP Procedure This was a 2D Doppler, Color Flow transthoracic echocardiogram. Technically difficult study, patient on BIPAP sitting upright. Exam performed portable in ICU/CCU. Left Ventricle Normal size and thickness. The estimated ejection fraction is 65 %. Normal diastology for age. Right Ventricle Normal size and thickness. Normal systolic function. Atria Normal left atrium. Normal right atrium. Normal atrial septum. Mitral Valve The mitral valve is structurally normal. No prolapse or stenosis seen. Tricuspid Valve Normal tricuspid valve. Trivial tricuspid valve insufficiency. Right ventricular systolic pressure estimated to be 32 mmHg. Aortic Valve Trisinus/trileaflet aortic valve. Mild diffuse aortic valve thickening. Mild aortic stenosis. Pulmonic Valve Normal pulmonic valve. Great Vessels Normal aortic root. Normal arch. Normal inferior vena cava. No collapse of the inferior vena cava. Pericardium/Pleural No pericardial effusion. MMode/2D Measurements & Calculations LVIDd: 4.8 cm IVSd: 1.3 cm LVOT diam: 2.0 cm LVIDs: 3.2 cm LVPWd: 1.3 cm LVOT area: 3.1 cm2 RVDd: 4.3 cm FS: 33.6 % LA dimension: 3.4 cm LAV(MOD-sp4): 37.0 ml LA A4 area: 15.3 cm2 Time Measurements MV dec time: 0.25 sec Doppler Measurements & Calculations MV E max denton: 109.2 cm/sec Lat Peak E' [place]: 11.3 cm/sec Med Peak E' [place]: 8.4 cm/sec MV A max denton: 95.2 cm/sec E/E' lat: 9.7 E/E' med: 13.0 MV E/A: 1.1 MV V2 max: 109.8 cm/sec MV P1/2t max [place]on: 110.7 cm/sec Ao V2 max: 196.5 cm/sec MV max P.8 mmHg MV P1/2t: 80.3 msec Ao max P.4 mmHg MV V2 mean: 67.7 cm/sec MV dec slope: 403.7 cm/sec2 Ao V2 mean: 128.6 cm/sec MV mean P.1 mmHg MVA(P1/2t): 2.7 cm2 Ao mean P.7 mmHg MV V2 VTI: 33.6 cm Ao V2 VTI: 32.1 cm MVA(VTI): 2.3 cm2 JEM(I,D): 2.4 cm2 JEM(V,D): 2.1 cm2 LV V1 max: 134.9 cm/sec SV(LVOT): 78.7 ml PA V2 max: 120.4 cm/sec LV V1 max P.3 mmHg LV V1 mean P.7 mmHg LV V1 mean: 88.3 cm/sec LV V1 VTI: 25.7 cm TR max [place]on: 258.1 cm/sec TR max P.6 mmHg Interpretation Summary The estimated ejection fraction is 65 %. Normal diastology for age. Trivial tricuspid valve insufficiency. Right ventricular systolic pressure estimated to be 32 mmHg. Mild aortic stenosis. There is no comparison study available. Ordering Physician: Subhash Davis Performed By: Esau Padron RCS
--- NOTE | 2020-05-30 20:10 | ED.RN ---
called report to Adriana in ICU. ICU is awaiting an RN to be called in.
[2020-05-30 20:20] LABS: BNP,B-Type NATRIURETIC PEPTIDE 253.7 pg/mL (0-100)
[2020-05-30 21:32] LABS: Fibrinogen 491 mg/dl (203-444)
[2020-05-30 21:42] LABS: Procalcitonin 0.15 ng/mL (0.00-0.09)
[2020-05-30 21:50] LABS: Ferritin 2919 ng/mL (26-388); LDH 190 U/L (87-241); Triglycerides 39 mg/dL
[2020-05-30] MEDS: Acetaminophen 325 MG Tablet 650 MG PO (22:27)
[2020-05-30] MEDS: Polyethylene Glycol 3350 17 GM PACKET PO (22:28)
[2020-05-30] MEDS: Montelukast 10 MG Tablet PO (22:28)
[2020-05-30] MEDS: Gabapentin 300 MG Capsule PO (22:28)
[2020-05-30] MEDS: Enoxaparin 30 MG/0.3 ML Syringe SC (22:28)
[2020-05-30] MEDS: guaiFENesin 1,200 MG Tablet 1200 MG PO (22:30)
[2020-05-30] MEDS: Pyridoxine HCl 100 MG Tablet PO (22:30)
[2020-05-31] VITALS (43 sets, daily range): BP systolic 96–154; BP diastolic 36–92; PULSE 63–100; RESP 12–37; TEMP 37.2–40.2; O2SAT 81–100
[2020-05-31] MEDS: Acetaminophen 325 MG Tablet 650 MG PO ×2 (04:24→13:19)
[2020-05-31] MEDS: 0.9% Saline Lock 10 ML Syringe IV ×3 (04:40→21:34)
[2020-05-31] MEDS: Furosemide 40 MG/4 ML Vial IV (04:40)
[2020-05-31] MEDS: Gabapentin 300 MG Capsule PO ×3 (04:46→21:34)
--- NOTE | 2020-05-31 05:07 | RAD_ITS ---
STUDY: X-RAY CHEST REASON FOR EXAM: Male, 75 years old. Dyspnea while receiving blood. TECHNIQUE: AP portable chest. COMPARISON: May 30, 2020. CT chest May 30, 2020. FINDINGS: The lungs are clear and expanded. There is no demonstrated pleural abnormality. No definite vascular congestion. Normal size heart. Normal mediastinum and sybil. Normal visualized pulmonary arteries. Normal visualized aortic arch and descending thoracic aorta. Normal visualized thoracic spine. Normal visualized ribs, clavicles, and shoulders. There is no demonstrated abnormality of the visualized soft tissue structures of the upper abdomen. RAD/Chest 1 View (Portable) IMPRESSION: No acute cardiopulmonary disease. Electronically Signed: Natanael Tong MD at 6:42 EDT , Service support ,
--- NOTE | 2020-05-31 05:42 | NURSING ---
Addendum entered by Adriana Youssef 05/31/20 07:36: at 0440 patient was on 4L NC not 2L NC Original Note: 0430: Patient put litigation partner light. Nurse entered room to assess patient. Noted to have crackles bilaterally posterior and pulse ox in high 80's. NC increased to 4L and nurse left room to retrieve lasix scheduled for 0600. 0435: Nurse returned to the room with lasix. Crackles remain in posterior lung ariza 0440: Patient pulse ox dropped to 80% on 2L NC and stated he felt like he was suffocating. Oxygen increased to 6L NC and patient sat up at 45 degree angle. Blood transfusion was stopped per hospital policy. Respiratory was paged for bipap and Dr. Davis was paged 0445: Dr. Davis returned phone call and stated that he was on his way up to the floor 0450: Respiratory therapist in the room and setting up bipap to place on patient. Pulse ox noted to be 90-92% on 6L NC at that time with crackles still noted in posterior lung ariza. 0455: Dr. Davis in the room to assess patient and gave verbal order for bipap. Also told to end the transfusion and send for transfusion reaction. 0500: Patient on Bipap 14/10 35%. Patient states he feels better and is able to breath better. Pulse ox high 90's and patient resting comfortably with no signs of distress noted.
[2020-05-31] MEDS: Ceftriaxone 1 GM/50 ML BAG IV ×2 (06:00→21:34)
[2020-05-31 06:26] LABS: Absolute Lymphocyte Count 0.19 X10^3/uL (0.83-4.51); Absolute Neutrophil Count 4.4 X10^3/uL (2.0-7.7); Basophil# 0.01 X10^3/uL; Basophil% 0.2 % (0-1); Hematocrit 27.2 % (40-54); Hemoglobin 8.8 g/dL (13.0-16.5); Lymphocyte # 0.19 X10^3/ul (4.0); Lymphocyte % 3.9 % (19-41); Mean Corp Hgb Conc 32.4 g/dL (32-36); Mean Corpuscular Hgb 33.5 pg (27.0-32.0); Mean Corpuscular Volume 103.4 fL (80-94); Mean Platelet Vol. 11.9 fl (6.2-12.0); Monocyte% 6.1 % (0-10); NRBC Flagged by Analyzer 0 % (0-5); Neutrophil # 4.38 X10^3/uL (2.7-7.7); Neutrophil % 89.4 % (47-70); POSITIVE DIFFERENTIAL YES; POSITIVE MORPHOLOGY YES; Platelet Count 183 K/mm3 (150-450); RBC Distribution Width CV 23.3 % (11.6-14.6); RBC Distribution Width SD 86.6 fl (35.1-43.9); Red Blood Count 2.63 M/mm3 (4.6-6.2); White Blood Count 4.9 K/mm3 (4.4-11.0)
[2020-05-31 06:42] LABS: AST(SGOT) 45 U/L (15-37); Alanine Aminotransfer ALT/SGPT 54 U/L (16-61); Alkaline Phosphatase 64 U/L (45-117); Anion Gap 5 (5-15); BUN 16 mg/dL (7-18); BUN/Creat Ratio 16.5 RATIO (10-20); Calcium,Total 7.6 mg/dL (8.5-10.1); Chloride 100 mmol/L (98-107); Creatinine, Serum 0.97 mg/dL (0.70-1.30); EST Glomerular Filtration Rate 80 mL/min (>60); Est Glom Filt Rate - Afr Amer 97 mL/min (>60); Globulin 3.1 g/dL (2.2-4.2); Glucose 119 mg/dL (74-106); Potassium 3.6 mmol/L (3.5-5.1); Protein, Total 6.1 g/dL (6.4-8.2); Sodium Level 131 mmol/L (136-145)
[2020-05-31 06:44] LABS: Differential Indicated SCAN CRITERIA MET
[2020-05-31 07:17] LABS: Color, Urine- Transfusion RXN Yellow (Yellow); Occult Blood-Urine Supernatant Negative (Negative); TXN RXN Red Blood Cells-Urine 10-25 SEEN /hpf
--- NOTE | 2020-05-31 07:25 | PCM.PN.HOSP ---
Patient Problems: Active and Suspected Problems Sepsis (Acute) Acute cystitis (Acute) Reason for Visit: Follow-up on dysuria Subjective: Patient was seen and examined. He has abdominal distension and constipation. Still having fevers, Tmax 104.3F. He is currently on bowel regimen. CT of the abdomen and pelvis planned for later after bowel regimen. Currently on 2 L of oxygen. Shortness of breath started after his blood transfusions. COVID-19 test is negative Vitals/I&O's: Vital Signs Temp Pulse Resp BP Pulse Ox 102.9 F H 73 22 H 116/44 L 97 05/31/20 06:00 05/31/20 06:00 05/31/20 06:00 05/31/20 06:00 05/31/20 07:10 Oxygen Flow Rate (L/min) 6 Oxygen Delivery Method Nasal Cannula Weight: 85.1 kg Body Mass Index (BMI) 26.6 Intake and Output for Last 24 Hours 05/29/20 05/30/20 05/31/20 23:59 23:59 23:59 Intake Total 1077.5 / 1077.5 1010.5 / 1010.5 Output Total 2175 / 2175 735 / 735 Balance -1097.5 / -1097.5 275.5 / 275.5 General: Alert, Oriented x3, Cooperative, No apparent distress, - - on 2L of oxygen HEENT: Atraumatic, PERRLA, EOMI, Normocephalic Neck: Supple Lungs: Diminished Cardiovascular: Regular rate, Regular Rhythm, Normal S1, Normal S2, No murmurs Abdomen: Bowel Sounds Present, Soft, Non Tender, Non-Distended, No Hepato-splenomegaly Extremities: No edema Skin: No rashes Musculoskeletal: No Tenderness to Palpation of Joints or Extremities Lymphatic: No Cervical, Supraclavicular, or Inguinal Adenopathy Neurological: Cranial nerves II-XII grossly intact, Neuro grossly intact Psych/Mental Status: Normal Affect, Appropriate Microbiology Past 72 Hours 05/31/20 05:27 Blood product unit Transfusion Reaction Gram Stain - Final Laboratory Results 05/30/20 15:40: COVID-19 (KATLIN) Negative 05/30/20 15:45: WBC 9.2, RBC 2.37 L, Hgb 8.4 L, Hct 24.9 L, MCV 105.1 H, MCH 35.4 H, MCHC 33.7, RDW Std Deviation 93.8 H, RDW Coeff of Jcarlos 24.9 H, Plt Count 204, MPV 11.7, Immature Gran % (Auto) 0.400, Neut % (Auto) 91.8 H, Lymph % (Auto) 2.8 L, [place] % (Auto) 4.8, Eos % (Auto) 0.0, Baso % (Auto) 0.2, Absolute Neuts (auto) 8.4 H, Absolute Lymphs (auto) 0.26 L, Nucleated RBC % 0, Differential Comment SEE COMMENT, Platelet Estimate ADEQUATE, RBC Morphology N CHROM, Anisocytosis 2+, Macrocytosis 2+ 05/30/20 15:45: PT 16.2 H, INR 1.4, APTT 31.7, D-Dimer Quant (PE/DVT) 1.01 H* 05/30/20 15:45: Sodium 130 L, Potassium 4.0, Chloride 99, Carbon Dioxide 26.0, Anion Gap 5, BUN 15, Creatinine 0.87, Estim Creat Clear Calc 74.58, Est GFR (MDRD) Af Amer 110, Est GFR (MDRD) Non-Af 91, BUN/Creatinine Ratio 17.3, Glucose 131 H, Calcium 8.7, Total Bilirubin 2.60 H, AST 47 H, ALT 72 H, Alkaline Phosphatase 86, Total Protein 7.3, Albumin 3.9, Globulin 3.4, Albumin/Globulin Ratio 1.1 05/30/20 15:45: Lactic Acid 1.4 05/30/20 15:45: B-Natriuretic Peptide 253.7 H 05/30/20 15:45: Troponin I < 0.015 05/30/20 15:45: Fibrinogen 491 H 05/30/20 15:45: Ferritin 2919 H, Lactate Dehydrogenase 190, C-React Prot Ext Range 149.00 H, Triglycerides 39 05/30/20 15:45: Procalcitonin 0.15 H 05/30/20 16:20: Urine Color SEE COMMENT BELOW, Urine Clarity Clear, Urine pH 5.0, Ur Specific [place] 1.015, Urine Protein 30 H, Urine Glucose (UA) Normal, Urine Ketones Negative, Urine Occult Blood 10 H, Urine Nitrite Positive H, Urine Bilirubin 3 H, Urine Urobilinogen 8 H, Ur Leukocyte Esterase 25 H, Urine RBC 0 SEEN, Urine WBC 0-5 SEEN, Ur Squamous Epith Cells 0 SEEN, Urine Bacteria 0 SEEN, Urine Mucus 0 SEEN 05/30/20 18:52: Blood Type B POSITIVE, Antibody Screen NEGATIVE, Crossmatch See Detail 05/30/20 21:45: Troponin I < 0.015 05/31/20 02:15: Troponin I 0.022 05/31/20 05:27: Direct Antiglob Test NEG w/POLYSPECIFIC 05/31/20 05:50: WBC 4.9, RBC 2.63 L, Hgb 8.8 L, Hct 27.2 L, MCV 103.4 H, MCH 33.5 H, MCHC 32.4, RDW Std Deviation 86.6 H, RDW Coeff of Jcarlos 23.3 H, Plt Count 183, MPV 11.9, Immature Gran % (Auto) 0.400, Neut % (Auto) 89.4 H, Lymph % (Auto) 3.9 L, [place] % (Auto) 6.1, Eos % (Auto) 0.0, Baso % (Auto) 0.2, Absolute Neuts (auto) 4.4, Absolute Lymphs (auto) 0.19 L, Nucleated RBC % 0 05/31/20 05:50: Sodium 131 L, Potassium 3.6, Chloride 100, Carbon Dioxide 26.0, Anion Gap 5, BUN 16, Creatinine 0.97, Estim Creat Clear Calc 66.90, Est GFR (MDRD) Af Amer 97, Est GFR (MDRD) Non-Af 80, BUN/Creatinine Ratio 16.5, Glucose 119 H, Calcium 7.6 L, Total Bilirubin 2.10 H, AST 45 H, ALT 54, Alkaline Phosphatase 64, Total Protein 6.1 L, Albumin 3.0 L, Globulin 3.1, Albumin/Globulin Ratio 1.0 05/31/20 05:50: Troponin I 0.018 Current Medications Acetaminophen (Tylenol) 650 mg PO Q6H PRN PRN PRN Reason: Pain Score 1-10/Temp > 100.7 F Last Admin: 05/31/20 04:24 Dose: 650 mg Documented by: Albuterol Sulfate (Ventolin Aerosols) 2.5 mg INHALATION Q2H PRN PRN PRN Reason: SOB/Wheezing Calcium Carbonate (Os-Yordan 500) 500 mg PO DAILYCM [facility]ILL[facility] Cholecalciferol (Vitamin D (25mcg)) 2,000 unit PO DAILY [facility] Dextrose (D50w Syringe) 0 gm IV X1 PRN; Protocol PRN Reason: Hypoglycemia Enoxaparin Sodium (Lovenox) 30 mg SC BID [facility] Last Admin: 05/30/20 22:28 Dose: 30 mg Documented by: Gabapentin (Neurontin) 300 mg PO TID [facility] Last Admin: 05/31/20 04:46 Dose: 300 mg Documented by: Glucagon () 1 mg IM .X1 PRN PRN Reason: Hypoglycemia Guaifenesin (Mucinex) 1,200 mg PO BID [facility] Last Admin: 05/30/20 22:30 Dose: 1,200 mg Documented by: Ceftriaxone Sodium (Rocephin) 1 gm in 50 mls @ 100 mls/hr IV Q12 [facility] Last Infusion: 05/31/20 06:30 Dose: Infused Documented by: Sodium Chloride () 500 mls @ 15 mls/hr IV PRN PRN PRN Reason: Blood Transfusion Sodium Chloride () 250 mls @ 15 mls/hr IV .[id number] PRN PRN Reason: Saline Flush Last Infusion: 05/31/20 06:30 Dose: 15 mls/hr Documented by: Montelukast Sodium (Singulair) 10 mg PO QHS [facility] Last Admin: 05/30/20 22:28 Dose: 10 mg Documented by: Ondansetron HCl (Zofran) 4 mg IV Q8H PRN PRN PRN Reason: NAUSEA/VOMITING Oxycodone HCl (Oxyir) 5 mg PO Q4H PRN PRN PRN Reason: Pain Score 6-10/10 Pantoprazole Sodium (Protonix) 40 mg PO DAILY [facility] Phenazopyridine HCl (Azo Standard) 95 mg PO TID PRN PRN PRN Reason: DISURIA Polyethylene Glycol (Miralax) 17 gm PO DAILY [facility] Last Admin: 05/30/20 22:28 Dose: 17 gm Documented by: Pyridoxine HCl (Vitamin B-6) 100 mg PO BID [facility] Last Admin: 05/30/20 22:30 Dose: 100 mg Documented by: Senna/Docusate Sodium (Senokot-S, Bertha-Colace) 1 tablet PO DAILY PRN PRN PRN Reason: CONSTIPATION Sodium Chloride () 10 - 40 ml IV UD PRN PRN Reason: SALINE FLUSH Last Admin: 05/31/20 04:40 Dose: 40 ml Documented by: STROKE Vital Signs/Narrative: Vital Signs Temp Pulse Resp BP BP Pulse Ox 05/31/20 07:10 97 05/31/20 06:00 102.9 F H 73 22 H 116/44 L 98 05/31/20 05:00 104.3 F H 89 26 H 133/42 H 97 05/31/20 04:55 86 28 H 98 05/31/20 04:43 104.1 F H 100 29 H 138/61 H 81 05/31/20 04:00 103.1 F H 88 28 H 135/50 H 91 05/31/20 03:57 103.1 F H 91 28 H 135/50 H 91 Medical Necessity - Tobacco Use Smoking Status: Former smoker Assessment/Plan All Active Problems Sepsis (Acute) Acute cystitis (Acute) 1. Hypoxia likely related to fluid overload versus transfusion reaction Transfusion reaction cultures are pending, Gram stain negative Patient received a couple of doses of Lasix with improvement in his oxygenation CT of the chest showed views interstitial pulmonary edema Will encourage use of incentive spirometer, albuterol inhaler prn 2. Sepsis secondary to acute UTI, improving, Urine and blood cultures are pending, COVID-19 PCR negative Continue on IV ceftriaxone 3. Chronic leg swelling, no reported history of CHF 2d-ECHO is pending, daily weights 4. Myelodysplastic syndrome/lymphoma, following with oncology 5. DVT PPx- Lovenox SC BID Inpatient E&M: [id number] [facility] [[email or web address]] Hosp L3
[2020-05-31 07:49] LABS: Anisocytosis 1+; Red Cell Morphology N CHROM NORMAL (NORM C&C)
--- NOTE | 2020-05-31 07:52 | PCM.CON.CC ---
Problem List (1) Waldenstrom macroglobulinemia Status: Chronic (2) Myelodysplastic syndrome Status: Chronic (3) Hypertension Status: Chronic (4) Sepsis Status: Acute Reason for Consult Date of Consultation: 05/31/20 Reason for Consultation: Hypotension and hypoxia History of Present Illness: The patient is a 75 year old M with medical history listed below, who presented to [facility] on 05/30/2020 secondary to fever and chills. Patient reportedly had been placed on Keflex for dysuria 2 days prior to presentation. Patient had also reported a cough and chest pain. Patient states the chest pain can radiate down his right arm and has been constant for 3 days. Patient has had a mild headache. Patient denied any COVID exposure, but had had some sick contacts. Patient does not routinely wear a facemask. On presentation to the ER, patient was noted to have a temperature of 104.3 ?F and was 77% on room air without significant respiratory distress. Patient did have some mild suprapubic tenderness with lower extremity edema. Laboratory work-up showed a slightly elevated d-dimer at 1.01 and a UA with leukocyte esterase and nitrites. Lactate was within normal limits and COVID was negative. Slight elevation of liver enzymes was noted. Patient had a hemoglobin of 8.4. Chest x-ray has showed some left basilar atelectasis. Patient was catheterized in the ER and noted to have only 300 cc. Patient improved to 92% on 4 L nasal cannula. There was still high clinical suspicion for COVID-19, so patient was admitted to the intensive care unit for further evaluation. While in the intensive care unit, patient did receive transfusion of 2 units of packed red blood cells. Patient tolerated the first without complication, but the second had to be stopped assisted through secondary to the development of fever and significant hypoxia with respiratory distress. Patient was given 40 mg of IV Lasix and placed on BiPAP therapy with significant improvement in overall condition. Blood was sent for possible transfusion reaction. Nursing reports the patient did put out 450 cc of urine associated with Lasix dosing. Patient reports he is subjectively unchanged compared to previous. Patient does report some abdominal discomfort and states he has not had a bowel movement in over 5 days. Patient denies any productive cough, epistaxis, hemoptysis, melena or hematochezia. Patient does report a [id number] smoking history, but is never formally been diagnosed with COPD or other lung pathology. Patient does not see a heater tender at baseline. Review of systems otherwise negative from a constitutional, HEENT, respiratory, cardiovascular, GI, genitourinary, musculoskeletal, skin, neurologic, psychiatric and hematologic system unless stated above. Past Medical History Past Medical History (Chronic Problems): Chronic Problems Waldenstrom macroglobulinemia (Chronic) Myelodysplastic syndrome (Chronic) Hypertension (Chronic) Allergies levofloxacin [From Levaquin] Allergy (Verified 05/30/20 15:12) Other WALKING AND PASSED OUT AND FELL INTO A WALL sulfamethoxazole [From Bactrim] Adverse Reaction (Verified 05/30/20 15:12) Other SORE THROAT trimethoprim [From Bactrim] Adverse Reaction (Verified 05/30/20 15:12) Other SORE THROAT Home Medications: Ambulatory Orders Medication Instructions Recorded [place]-3 Fatty Acids/Fish Oil [Fish 1 each PO BID 05/22/17 Oil 1,000 mg Capsule] Montelukast [Singulair] 10 mg PO QHS 08/24/18 Omeprazole [Prilosec] 40 mg PO DAILY 08/24/18 Pyridoxine HCl [Vitamin B-6] 100 mg PO BID 08/24/18 Gabapentin [Neurontin] 300 mg PO TID 10/29/19 Cephalexin [Keflex] 500 mg PO 4X/DAY #28 cap 05/28/20 Phenazopyridine HCl [Pyridium] 100 mg PO TID PRN #6 tab 05/28/20 Calcium Carbonate [Calcium] 500 mg PO DAILY 05/30/20 Cholecalciferol (Vitamin D3) 2,000 unit PO DAILY 05/30/20 [Vitamin D3] Cranberry 1,600 mg PO DAILY PRN PRN 05/30/20 Surgical History: herniorrhaphy, - - Multiple lipoma removal. Lives: Spouse/ Significant Other Smoking Status: Former smoker Alcohol: None - *Family History Maternal History Items: Diabetes, Heart Disease Paternal History Items: Stroke - His father from a stroke at the age of 95. Review of Systems Comment: See HPI Patient Problems: Active and Suspected Problems Sepsis (Acute) Acute cystitis (Acute) Subjective: Nursing did report patient had apneic episodes while sleeping prior to BiPAP placement. Objective: All imaging was personally reviewed. Agree with formal interpretation of chest x-ray. Personal review of the CT of the chest shows right lower lobe bronchiectatic changes. Otherwise, agree with formal interpretation. Patient has never had an echocardiogram or PFTs at [facility] - Physical Exam Vitals/I&O's: Vital Signs Temp Pulse Resp BP Pulse Ox 39.4 C H 73 22 H 116/44 L 97 05/31/20 06:00 05/31/20 06:00 05/31/20 06:00 05/31/20 06:00 05/31/20 07:10 Oxygen Flow Rate (L/min) 6 Oxygen Delivery Method Nasal Cannula Weight: 85.1 kg Body Mass Index (BMI) 26.6 Intake and Output for Last 24 Hours 05/29/20 05/30/20 05/31/20 23:59 23:59 23:59 Intake Total 1077.5 / 1077.5 1010.5 / 1010.5 Output Total 2175 / 2175 735 / 735 Balance -1097.5 / -1097.5 275.5 / 275.5 General: Alert, Oriented x3, Cooperative, No apparent distress - On BiPAP therapy, - - Appears younger than stated age. HEENT: Atraumatic, PERRLA, EOMI, Normocephalic, - - Slight scleral injection without any icterus Oral: No Gingival or Mucosal Lesions/ Ulcerations, Dry Mucosa Neck: Supple, No JVD, No Nodes, Trachea Midline Lungs: No rhonchi, No wheeze, No rales, Diminished, - - Symmetric expansion. No dullness to percussion. Cardiovascular: Normal S1, Normal S2, No murmurs, No rub noted, No Gallop, Tachycardic Abdomen: Bowel Sounds Present, Soft, Distended, Tender - Slightly without rebound or guarding Extremities: No clubbing, No cyanosis, Edema - 2+ lower extremities Skin: No rashes, No breakdown Musculoskeletal: No Tenderness to Palpation of Joints or Extremities Lymphatic: No Cervical, Supraclavicular, or Inguinal Adenopathy Neurological: Cranial nerves II-XII grossly intact, Neuro grossly intact, Motor Exam 5/5 strength throughout Psych/Mental Status: Alert and oriented to time, place, person, mood and affect Microbiology Past 72 Hours 05/31/20 05:27 Blood product unit Transfusion Reaction Gram Stain - Final Laboratory Results 05/30/20 15:40: COVID-19 (KATLIN) Negative 05/30/20 15:45: WBC 9.2, RBC 2.37 L, Hgb 8.4 L, Hct 24.9 L, MCV 105.1 H, MCH 35.4 H, MCHC 33.7, RDW Std Deviation 93.8 H, RDW Coeff of Jcarlos 24.9 H, Plt Count 204, MPV 11.7, Immature Gran % (Auto) 0.400, Neut % (Auto) 91.8 H, Lymph % (Auto) 2.8 L, [place] % (Auto) 4.8, Eos % (Auto) 0.0, Baso % (Auto) 0.2, Absolute Neuts (auto) 8.4 H, Absolute Lymphs (auto) 0.26 L, Nucleated RBC % 0, Differential Comment SEE COMMENT, Platelet Estimate ADEQUATE, RBC Morphology N CHROM, Anisocytosis 2+, Macrocytosis 2+ 05/30/20 15:45: PT 16.2 H, INR 1.4, APTT 31.7, D-Dimer Quant (PE/DVT) 1.01 H* 05/30/20 15:45: Sodium 130 L, Potassium 4.0, Chloride 99, Carbon Dioxide 26.0, Anion Gap 5, BUN 15, Creatinine 0.87, Estim Creat Clear Calc 74.58, Est GFR (MDRD) Af Amer 110, Est GFR (MDRD) Non-Af 91, BUN/Creatinine Ratio 17.3, Glucose 131 H, Calcium 8.7, Total Bilirubin 2.60 H, AST 47 H, ALT 72 H, Alkaline Phosphatase 86, Total Protein 7.3, Albumin 3.9, Globulin 3.4, Albumin/Globulin Ratio 1.1 05/30/20 15:45: Lactic Acid 1.4 05/30/20 15:45: B-Natriuretic Peptide 253.7 H 05/30/20 15:45: Troponin I < 0.015 05/30/20 15:45: Fibrinogen 491 H 05/30/20 15:45: Ferritin 2919 H, Lactate Dehydrogenase 190, C-React Prot Ext Range 149.00 H, Triglycerides 39 05/30/20 15:45: Procalcitonin 0.15 H 05/30/20 16:20: Urine Color SEE COMMENT BELOW, Urine Clarity Clear, Urine pH 5.0, Ur Specific [place] 1.015, Urine Protein 30 H, Urine Glucose (UA) Normal, Urine Ketones Negative, Urine Occult Blood 10 H, Urine Nitrite Positive H, Urine Bilirubin 3 H, Urine Urobilinogen 8 H, Ur Leukocyte Esterase 25 H, Urine RBC 0 SEEN, Urine WBC 0-5 SEEN, Ur Squamous Epith Cells 0 SEEN, Urine Bacteria 0 SEEN, Urine Mucus 0 SEEN 05/30/20 18:52: Blood Type B POSITIVE, Antibody Screen NEGATIVE, Crossmatch See Detail 05/30/20 21:45: Troponin I < 0.015 05/31/20 02:15: Troponin I 0.022 05/31/20 05:27: Direct Antiglob Test NEG w/POLYSPECIFIC 05/31/20 05:50: WBC 4.9, RBC 2.63 L, Hgb 8.8 L, Hct 27.2 L, MCV 103.4 H, MCH 33.5 H, MCHC 32.4, RDW Std Deviation 86.6 H, RDW Coeff of Jcarlos 23.3 H, Plt Count 183, MPV 11.9, Immature Gran % (Auto) 0.400, Neut % (Auto) 89.4 H, Lymph % (Auto) 3.9 L, [place] % (Auto) 6.1, Eos % (Auto) 0.0, Baso % (Auto) 0.2, Absolute Neuts (auto) 4.4, Absolute Lymphs (auto) 0.19 L, Nucleated RBC % 0, Differential Comment , RBC Morphology N CHROM, Anisocytosis 1+ 05/31/20 05:50: Sodium 131 L, Potassium 3.6, Chloride 100, Carbon Dioxide 26.0, Anion Gap 5, BUN 16, Creatinine 0.97, Estim Creat Clear Calc 66.90, Est GFR (MDRD) Af Amer 97, Est GFR (MDRD) Non-Af 80, BUN/Creatinine Ratio 16.5, Glucose 119 H, Calcium 7.6 L, Total Bilirubin 2.10 H, AST 45 H, ALT 54, Alkaline Phosphatase 64, Total Protein 6.1 L, Albumin 3.0 L, Globulin 3.1, Albumin/Globulin Ratio 1.0 05/31/20 05:50: Troponin I 0.018 Clinical Impression(s) from Imaging Studies Chest X-Ray 05/30/20 15:27 IMPRESSION: Left basilar atelectasis. Electronically Signed: Shaheed Streeter MD at 17:12 EDT Tel , Service support , Chest CTA 05/30/20 17:08 IMPRESSION: No pulmonary embolus. Diffuse interstitial pulmonary edema. Electronically Signed: Shaheed Streeter MD at 18:14 EDT Tel , Service support , Chest X-Ray 05/31/20 05:07 IMPRESSION: No acute cardiopulmonary disease. Electronically Signed: Natanael Tong MD at 6:42 EDT , Service support , Current Medications Acetaminophen (Tylenol) 650 mg PO Q6H PRN PRN PRN Reason: Pain Score 1-10/Temp > 100.7 F Last Admin: 05/31/20 04:24 Dose: 650 mg Documented by: Albuterol Sulfate (Ventolin Aerosols) 2.5 mg INHALATION Q2H PRN PRN PRN Reason: SOB/Wheezing Calcium Carbonate (Os-Yordan 500) 500 mg PO DAILYCM [facility] Cholecalciferol (Vitamin D (25mcg)) 2,000 unit PO DAILY [facility] Dextrose (D50w Syringe) 0 gm IV X1 PRN; Protocol PRN Reason: Hypoglycemia Enoxaparin Sodium (Lovenox) 30 mg SC BID [facility] Last Admin: 05/30/20 22:28 Dose: 30 mg Documented by: Gabapentin (Neurontin) 300 mg PO TID [facility] Last Admin: 05/31/20 04:46 Dose: 300 mg Documented by: Glucagon () 1 mg IM .X1 PRN PRN Reason: Hypoglycemia Guaifenesin (Mucinex) 1,200 mg PO BID [facility] Last Admin: 05/30/20 22:30 Dose: 1,200 mg Documented by: Ceftriaxone Sodium (Rocephin) 1 gm in 50 mls @ 100 mls/hr IV Q12 [facility] Last Infusion: 05/31/20 06:30 Dose: Infused Documented by: Sodium Chloride () 500 mls @ 15 mls/hr IV PRN PRN PRN Reason: Blood Transfusion Sodium Chloride () 250 mls @ 15 mls/hr IV .[id number] PRN PRN Reason: Saline Flush Last Infusion: 05/31/20 06:30 Dose: 15 mls/hr Documented by: Montelukast Sodium (Singulair) 10 mg PO QHS [facility] Last Admin: 05/30/20 22:28 Dose: 10 mg Documented by: Ondansetron HCl (Zofran) 4 mg IV Q8H PRN PRN PRN Reason: NAUSEA/VOMITING Oxycodone HCl (Oxyir) 5 mg PO Q4H PRN PRN PRN Reason: Pain Score 6-10/10 Pantoprazole Sodium (Protonix) 40 mg PO DAILY [facility] Phenazopyridine HCl (Azo Standard) 95 mg PO TID PRN PRN PRN Reason: DISURIA Polyethylene Glycol (Miralax) 17 gm PO DAILY [facility] Last Admin: 05/30/20 22:28 Dose: 17 gm Documented by: Pyridoxine HCl (Vitamin B-6) 100 mg PO BID [facility] Last Admin: 05/30/20 22:30 Dose: 100 mg Documented by: Senna/Docusate Sodium (Senokot-S, Bertha-Colace) 1 tablet PO DAILY PRN PRN PRN Reason: CONSTIPATION Sodium Chloride () 10 - 40 ml IV UD PRN PRN Reason: SALINE FLUSH Last Admin: 05/31/20 04:40 Dose: 40 ml Documented by: Assessment/Plan Active and Suspected Problems Sepsis (Acute) Acute cystitis (Acute) RECOMMENDATIONS: 1. Attempt to give break off of BiPAP therapy 2. Agree with echocardiogram 3. Continue empiric antibiotics 4. Aggressive bowel regimen with possible CT abdomen later today 5. Continue COVID precautions for now. Potentially retest at 24 hours IMPRESSIONS: 1. Acute hypoxic respiratory failure Unclear etiology at this time. Patient did have hypoxia on presentation with bilateral infiltrates. Differential diagnosis would include COVID-19, congestive heart failure, atelectasis with hypoventilation and pulmonary embolism. Patient does have bronchiectasis, but does not have a focal infiltrate on chest x-ray or CT scan to suggest acute pneumonia. Patient has been somewhat hypotensive and does not have an echocardiogram in the system. Low diastolic pressures are suggestive of aortic valve insufficiency, but this could not be auscultated with isolation stethoscope. Until alternative diagnosis for fevers and respiratory failure can be found, would continue COVID-19 precautions. BiPAP rescue as necessary. 2. Severe sepsis Exact etiology is unclear. Patient reportedly was treated for cystitis recently and this may be why there are no bacteria or white blood cells in the urine. Patient also has bronchiectasis, but has no focal infiltrates. COVID-19 would be a consideration. Would attempt to obtain sputum culture if possible. Patient does have chronic lower extremity edema on physical exam, but no signs of cellulitis that I can tell. Patient does have significant reported constipation with abdominal distention. Diverticulitis would be another concern. Would like to stabilize patient's respiratory status prior to any CT of the abdomen. 3. Constipation/acute on chronic anemia/myelodysplastic syndrome/Waldenstrom macroglobulinemia Complicates care, management, recovery and prognosis. Aggressive bowel regimen has been ordered. Would hold on further transfusions. TIME: 35 minutes critical care time spent addressing patient's acute hypoxic respiratory failure, sepsis, constipation, anemia, review of all data and collaboration with care team (7:15 AM to 8:15 AM) [id number]: [id number] Critical care first hour
[2020-05-31] MEDS: Calcium (Elemental) 500 MG Tablet PO (08:31)
[2020-05-31] MEDS: Polyethylene Glycol 3350 17 GM PACKET PO (08:31)
[2020-05-31] MEDS: Enoxaparin 30 MG/0.3 ML Syringe SC ×2 (08:31→21:33)
[2020-05-31] MEDS: Pantoprazole Sodium 40 MG Tablet PO (08:34)
[2020-05-31] MEDS: Pyridoxine HCl 100 MG Tablet PO ×2 (08:34→21:34)
[2020-05-31] MEDS: guaiFENesin 1,200 MG Tablet 1200 MG PO ×2 (08:34→21:34)
--- NOTE | 2020-05-31 10:30 | CASEMGMT ---
RN CM called patient in room for initial transition planning/care coordination assessment. RN TONYA introduced self and role at [facility]. Patient alert and oriented. Patient willing to participate in assessment and is able to answer all questions appropriately. Care providers, pharmacy, and demographics verified. Patient wishes to discharge home, denies need for home health at this time. Patient states he has no further needs or concerns at this time. CM to follow for discharge planning needs that may arise. PCP: Raul Specialists: Oswald oncologist Preferred Pharmacy: [facility] Insurance: [employer] Prescription Benefit: yes Living Will/HPOA: none LNOK: Living Arrangements: Patient lives with in [facility]. Patient states he is able to ambulate stairs. Patient states he can self isolate at home if needed. Transportation: self/ DME/HHC: Patient states he has cane at home. Patient denies need for HHC. Will monitor for need for home oxygen at discharge. Disposition Plan: Patient to discharge home with family support and follow-up plans in place. Martha LASSITER, RN, CM
[2020-05-31] MEDS: Magnesium Citrate 300 ML 150 ML PO (11:32)
--- NOTE | 2020-05-31 13:55 | NURSING ---
Addendum entered by Xu Graves 05/31/20 14:27: During this episode patients core temperature was also noted to increase from about 101.6 to 103's rapidly. Patient with fever and chills. After application of Bipap and Lasix administration this RN stayed at the bedside until pt respirations began to slow and his demeanor relaxed( about 20 minutes). Pt stated that he was beginning to feel better and it was getting easier to breath. will continue to monitor. Original Note: RN responded to patients call light. on arrival to room, patient was noted to have labored breathing, tachypnea and was tremulous. Pt stated that he feels like im suffocating and can't catch my breath. Crackles auscultated in bilateral lower lobes. Pt was placed back on bipap machine at previous settings by this RN, RT Deja present on unit but in other room, notified of changes. Dr Will present on unit, als notified of situation. Order for STAT 20mg IV Lasix received.
[2020-05-31] MEDS: Furosemide 20 MG/2 ML VIAL IV (14:05)
--- NOTE | 2020-05-31 17:11 | PCM.HP.ID ---
Problem List (1) Sepsis Status: Acute Reason for Consult: jessica lam Consulted by: Dr. Mendieta History of Present Illness: The patient is a 75 year old M with h/o MDS, presented ED last night with several days of cough, headache, fever, dyspnea, and sore throat. Also developed dysuria, some lower abd pain, some increased frequency. No prior uti. Reports had similar fever, headache, and sore throat about 2 weeks ago. Was not tested for covid. No change in taste/smell for him, no aches. Came to ED, found to be hypoxic, febrile. Admitted to [facility] precautions on ceftriaxone. Feeling about the same today. 05/28 ucx with ecoli. Full ROS performed and neg except as noted above. Denies orthopnea/PND. - Medical History Past Medical History (Chronic Problems): Chronic Problems Waldenstrom macroglobulinemia (Chronic) Myelodysplastic syndrome (Chronic) Hypertension (Chronic) Allergies/Adverse Reactions: Allergies levofloxacin [From Levaquin] Allergy (Verified 05/30/20 15:12) Other WALKING AND PASSED OUT AND FELL INTO A WALL sulfamethoxazole [From Bactrim] Adverse Reaction (Verified 05/30/20 15:12) Other SORE THROAT trimethoprim [From Bactrim] Adverse Reaction (Verified 05/30/20 15:12) Other SORE THROAT Home Medications: Ambulatory Orders Medication Instructions Recorded Edmonson-3 Fatty Acids/Fish Oil [Fish 1 each PO BID 05/22/17 Oil 1,000 mg Capsule] Montelukast [Singulair] 10 mg PO QHS 08/24/18 Omeprazole [Prilosec] 40 mg PO DAILY 08/24/18 Pyridoxine HCl [Vitamin B-6] 100 mg PO BID 08/24/18 Gabapentin [Neurontin] 300 mg PO TID 10/29/19 Cephalexin [Keflex] 500 mg PO 4X/DAY #28 cap 05/28/20 Phenazopyridine HCl [Pyridium] 100 mg PO TID PRN #6 tab 05/28/20 Calcium Carbonate [Calcium] 500 mg PO DAILY 05/30/20 Cholecalciferol (Vitamin D3) 2,000 unit PO DAILY 05/30/20 [Vitamin D3] Cranberry 1,600 mg PO DAILY PRN PRN 05/30/20 - Social History SMOKING STATUS:: Former smoker Vital Signs Temp Pulse Resp BP Pulse Ox 103.4 F H 76 20 H 134/42 H 99 05/31/20 15:00 05/31/20 16:00 05/31/20 16:00 05/31/20 16:00 05/31/20 16:00 Oxygen Flow Rate (L/min) 4 Oxygen Delivery Method Nasal Cannula Weight: 85.1 kg Body Mass Index (BMI) 26.6 Microbiology Past 72 Hours 05/31/20 05:27 Transfusion Reaction Gram Stain - Final Blood product unit Laboratory Tests Past 24 Hrs 05/30/20 05/30/20 05/30/20 15:40 15:45 15:45 WBC RBC Hgb Hct MCV MCH MCHC RDW Std Deviation RDW Coeff of Jcarlos Plt Count MPV Immature Gran % (Auto) Neut % (Auto) Lymph % (Auto) [place] % (Auto) Eos % (Auto) Baso % (Auto) Absolute Neuts (auto) Absolute Lymphs (auto) Nucleated RBC % Differential Comment RBC Morphology Anisocytosis Fibrinogen Sodium Potassium Chloride Carbon Dioxide Anion Gap BUN Creatinine Estim Creat Clear Calc Est GFR (MDRD) Af Amer Est GFR (MDRD) Non-Af BUN/Creatinine Ratio Glucose Calcium Ferritin Total Bilirubin AST ALT Alkaline Phosphatase Lactate Dehydrogenase Troponin I < 0.015 C-React Prot Ext Range B-Natriuretic Peptide 253.7 H Total Protein Albumin Globulin Albumin/Globulin Ratio Triglycerides Procalcitonin COVID-19 (KATLIN) Negative Blood Type Antibody Screen Direct Antiglob Test Crossmatch 05/30/20 05/30/20 05/30/20 15:45 15:45 15:45 WBC RBC Hgb Hct MCV MCH MCHC RDW Std Deviation RDW Coeff of Jcarlos Plt Count MPV Immature Gran % (Auto) Neut % (Auto) Lymph % (Auto) [place] % (Auto) Eos % (Auto) Baso % (Auto) Absolute Neuts (auto) Absolute Lymphs (auto) Nucleated RBC % Differential Comment RBC Morphology Anisocytosis Fibrinogen 491 H Sodium Potassium Chloride Carbon Dioxide Anion Gap BUN Creatinine Estim Creat Clear Calc Est GFR (MDRD) Af Amer Est GFR (MDRD) Non-Af BUN/Creatinine Ratio Glucose Calcium Ferritin 2919 H Total Bilirubin AST ALT Alkaline Phosphatase Lactate Dehydrogenase 190 Troponin I C-React Prot Ext Range 149.00 H B-Natriuretic Peptide Total Protein Albumin Globulin Albumin/Globulin Ratio Triglycerides 39 Procalcitonin 0.15 H COVID-19 (KATLIN) Blood Type Antibody Screen Direct Antiglob Test Crossmatch 05/30/20 05/30/20 05/31/20 18:52 21:45 02:15 WBC RBC Hgb Hct MCV MCH MCHC RDW Std Deviation RDW Coeff of Jcarlos Plt Count MPV Immature Gran % (Auto) Neut % (Auto) Lymph % (Auto) [place] % (Auto) Eos % (Auto) Baso % (Auto) Absolute Neuts (auto) Absolute Lymphs (auto) Nucleated RBC % Differential Comment RBC Morphology Anisocytosis Fibrinogen Sodium Potassium Chloride Carbon Dioxide Anion Gap BUN Creatinine Estim Creat Clear Calc Est GFR (MDRD) Af Amer Est GFR (MDRD) Non-Af BUN/Creatinine Ratio Glucose Calcium Ferritin Total Bilirubin AST ALT Alkaline Phosphatase Lactate Dehydrogenase Troponin I < 0.015 0.022 C-React Prot Ext Range B-Natriuretic Peptide Total Protein Albumin Globulin Albumin/Globulin Ratio Triglycerides Procalcitonin COVID-19 (KATLIN) Blood Type B POSITIVE Antibody Screen NEGATIVE Direct Antiglob Test Crossmatch See Detail 05/31/20 05/31/20 05/31/20 05:27 05:50 05:50 WBC 4.9 RBC 2.63 L Hgb 8.8 L Hct 27.2 L MCV 103.4 H MCH 33.5 H MCHC 32.4 RDW Std Deviation 86.6 H RDW Coeff of Jcarlos 23.3 H Plt Count 183 MPV 11.9 Immature Gran % (Auto) 0.400 Neut % (Auto) 89.4 H Lymph % (Auto) 3.9 L [place] % (Auto) 6.1 Eos % (Auto) 0.0 Baso % (Auto) 0.2 Absolute Neuts (auto) 4.4 Absolute Lymphs (auto) 0.19 L Nucleated RBC % 0 Differential Comment RBC Morphology N CHROM Anisocytosis 1+ Fibrinogen Sodium 131 L Potassium 3.6 Chloride 100 Carbon Dioxide 26.0 Anion Gap 5 BUN 16 Creatinine 0.97 Estim Creat Clear Calc 66.90 Est GFR (MDRD) Af Amer 97 Est GFR (MDRD) Non-Af 80 BUN/Creatinine Ratio 16.5 Glucose 119 H Calcium 7.6 L Ferritin Total Bilirubin 2.10 H AST 45 H ALT 54 Alkaline Phosphatase 64 Lactate Dehydrogenase Troponin I C-React Prot Ext Range B-Natriuretic Peptide Total Protein 6.1 L Albumin 3.0 L Globulin 3.1 Albumin/Globulin Ratio 1.0 Triglycerides Procalcitonin COVID-19 (KATLIN) Blood Type Antibody Screen Direct Antiglob Test NEG w/POLYSPECIFIC Crossmatch 05/31/20 05:50 WBC RBC Hgb Hct MCV MCH MCHC RDW Std Deviation RDW Coeff of Jcarlos Plt Count MPV Immature Gran % (Auto) Neut % (Auto) Lymph % (Auto) [place] % (Auto) Eos % (Auto) Baso % (Auto) Absolute Neuts (auto) Absolute Lymphs (auto) Nucleated RBC % Differential Comment RBC Morphology Anisocytosis Fibrinogen Sodium Potassium Chloride Carbon Dioxide Anion Gap BUN Creatinine Estim Creat Clear Calc Est GFR (MDRD) Af Amer Est GFR (MDRD) Non-Af BUN/Creatinine Ratio Glucose Calcium Ferritin Total Bilirubin AST ALT Alkaline Phosphatase Lactate Dehydrogenase Troponin I 0.018 C-React Prot Ext Range B-Natriuretic Peptide Total Protein Albumin Globulin Albumin/Globulin Ratio Triglycerides Procalcitonin COVID-19 (KATLIN) Blood Type Antibody Screen Direct Antiglob Test Crossmatch - Other Studies Radiology: [] reviewed Other Studies: [] Route of nutrition/ use of supplements: [] Nutritional Intake: [] IV Site: [] Delacruz Catheter: [] - Physical Exam General: Alert, Cooperative, - - ill appearing HEENT: Atraumatic, PERRLA, EOMI Neck: Supple, No Nodes Lungs: Diminished Cardiovascular: Regular rate, Regular Rhythm Abdomen: Soft, Non Tender, Non-Distended Extremities: Edema Skin: No rashes IV Site: Peripheral, without redness Musculoskeletal: No Tenderness to Palpation of Joints or Extremities Neurological: Cranial nerves II-XII grossly intact - Assessment/Plan Antibiotics: [] Assessment/Plan: [] Active and Suspected Problems Sepsis (Acute) Acute cystitis (Acute) hypoxia, sepsis, ecoli bacteruria - UA on 05/28 and 05/30 without pyuria. Ucx 05/28 with sensitive ecoli. Given with similar symptoms recently and significant fever/hypoxia, high concern for covid even with neg PCR. Will start decadron. On bid lovenox proph. D-dimer mildly elevated. Does have lymphopenia. Cont ceftriaxone. Will follow, thank you.
[2020-05-31] MEDS: dexAMETHasone 10 MG/ML Vial 6 MG IV (18:03)
[2020-05-31] MEDS: Montelukast 10 MG Tablet PO (21:34)
--- NOTE | 2020-05-31 22:05 | NURSING ---
, Sigrid called into unit and update provided.
[2020-06-01] VITALS (24 sets, daily range): BP systolic 99–147; BP diastolic 36–74; PULSE 60–85; RESP 13–26; TEMP 36.7–37.3; O2SAT 90–99
[2020-06-01 03:44] LABS: Absolute Lymphocyte Count 0.23 X10^3/uL (0.83-4.51); Absolute Neutrophil Count 1.4 X10^3/uL (2.0-7.7); Hematocrit 27.2 % (40-54); Hemoglobin 9.1 g/dL (13.0-16.5); Lymphocyte # 0.23 X10^3/ul (4.0); Lymphocyte % 12.8 % (19-41); Mean Corp Hgb Conc 33.5 g/dL (32-36); Mean Corpuscular Hgb 34.1 pg (27.0-32.0); Mean Corpuscular Volume 101.9 fL (80-94); Mean Platelet Vol. 12.6 fl (6.2-12.0); Monocyte# 0.13 X10^3/uL; Monocyte% 7.3 % (0-10); NRBC Flagged by Analyzer 0 % (0-5); Neutrophil # 1.41 X10^3/uL (2.7-7.7); Neutrophil % 78.8 % (47-70); POSITIVE DIFFERENTIAL YES; POSITIVE MORPHOLOGY YES; Platelet Count 142 K/mm3 (150-450); Red Blood Count 2.67 M/mm3 (4.6-6.2); White Blood Count 1.8 K/mm3 (4.4-11.0)
[2020-06-01 04:16] LABS: AST(SGOT) 37 U/L (15-37); Alanine Aminotransfer ALT/SGPT 50 U/L (16-61); Alkaline Phosphatase 61 U/L (45-117); Anion Gap 6 (5-15); BUN 17 mg/dL (7-18); BUN/Creat Ratio 20.9 RATIO (10-20); Calcium,Total 7.9 mg/dL (8.5-10.1); Chloride 99 mmol/L (98-107); Creatinine, Serum 0.81 mg/dL (0.70-1.30); EST Glomerular Filtration Rate 98 mL/min (>60); Est Glom Filt Rate - Afr Amer 119 mL/min (>60); Estimated Creatinine Clearance 80.11 ml/min; Globulin 3.1 g/dL (2.2-4.2); Glucose 160 mg/dL (74-106); Magnesium 2.3 mg/dL (1.6-2.6); Potassium 3.7 mmol/L (3.5-5.1); Protein, Total 6.1 g/dL (6.4-8.2); Sodium Level 131 mmol/L (136-145)
[2020-06-01 04:18] LABS: Differential Indicated SCAN CRITERIA MET
[2020-06-01 04:24] LABS: Differential Comment SCANNED
[2020-06-01 04:25] LABS: Anisocytosis 1+; Macrocytosis 1+; Schistocytes RARE
[2020-06-01 04:26] LABS: Ovalocyte RARE
[2020-06-01] MEDS: Gabapentin 300 MG Capsule PO ×3 (05:37→21:33)
--- NOTE | 2020-06-01 07:44 | PN_ITS ---
Patient Problems: Active and Suspected Problems Sepsis (Acute) Acute cystitis (Acute) Reason for Visit: Follow-up on dysuria Subjective: Patient was seen and examined. He feels improved. Off oxygen. Denies any fever, chills, chest pain. Has left sided abdominal discomfort. Objective: Physical exam: General: Alert, Oriented x3, Cooperative, No apparent distress HEENT: Atraumatic, PERRLA, EOMI, Normocephalic Neck: Supple Lungs: Diminished Cardiovascular: Regular rate, Regular Rhythm, Normal S1, Normal S2, No murmurs Abdomen: Bowel Sounds Present, Soft, Non Tender, Non-Distended, No Hepato- splenomegaly Extremities: No edema Skin: No rashes Musculoskeletal: No Tenderness to Palpation of Joints or Extremities Lymphatic: No Cervical, Supraclavicular, or Inguinal Adenopathy Neurological: Cranial nerves II-XII grossly intact, Neuro grossly intact Psych/Mental Status: Normal Affect, Appropriate Vitals/I&O's: Vital Signs Temp Pulse Resp BP Pulse Ox 98.1 F 60 16 120/61 97 06/01/20 05:00 06/01/20 05:00 06/01/20 05:00 06/01/20 05:00 06/01/20 05:00 Oxygen Flow Rate (L/min) 3 Oxygen Delivery Method Nasal Cannula Weight: 84.3 kg Body Mass Index (BMI) 26.6 Intake and Output for Last 24 Hours 05/30/20 05/31/20 06/01/20 23:59 23:59 23:59 Intake Total 1077.5 / 1077.5 2349.5 / 2349.5 240 / 240 Output Total 2175 / 2175 2410 / 2410 230 / 230 Balance -1097.5 / -1097.5 -60.5 / -60.5 Microbiology Past 72 Hours 05/31/20 05:27 Blood product unit Transfusion Reaction Gram Stain - Final Laboratory Results 05/31/20 05:50: Differential Comment , RBC Morphology N CHROM, Anisocytosis 1+ 06/01/20 03:40: WBC 1.8 L, RBC 2.67 L, Hgb 9.1 L, Hct 27.2 L, MCV 101.9 H, MCH 34.1 H, MCHC 33.5, RDW Std Deviation 85.0 H, RDW Coeff of Jcarlos 23.0 H, Plt Count 142 L, MPV 12.6 H, Immature Gran % (Auto) 1.100 H, Neut % (Auto) 78.8 H, Lymph % (Auto) 12.8 L, [place] % (Auto) 7.3, Eos % (Auto) 0.0, Baso % (Auto) 0.0, Absolute Neuts (auto) 1.4 L, Absolute Lymphs (auto) 0.23 L, Nucleated RBC % 0, Differential Comment SCANNED, Diff Path Review May foll, Anisocytosis 1+, Macrocytosis 1+, Ovalocytes RARE, Schistocytes RARE 06/01/20 03:40: Sodium 131 L, Potassium 3.7, Chloride 99, Carbon Dioxide 26.0, Anion Gap 6, BUN 17, Creatinine 0.81, Estim Creat Clear Calc 80.11, Est GFR (MDRD) Af Amer 119, Est GFR (MDRD) Non-Af 98, BUN/Creatinine Ratio 20.9 H, Glucose 160 H, Calcium 7.9 L, Magnesium 2.3, Total Bilirubin 0.90, AST 37, ALT 50, Alkaline Phosphatase 61, Total Protein 6.1 L, Albumin 3.0 L, Globulin 3.1, Albumin/Globulin Ratio 1.0 Current Medications Acetaminophen (Tylenol) 650 mg PO Q6H PRN PRN PRN Reason: Pain Score 1-10/Temp > 100.7 F Last Admin: 05/31/20 13:19 Dose: 650 mg Documented by: Albuterol Sulfate (Proair Hfa (Sp) Surgery/Vent Pts) 2 puff INHALATION Q4H PRN PRN PRN Reason: SOB &/OR WHEEZING Calcium Carbonate (Os-Yordan 500) 500 mg PO DAILYCM [facility] Last Admin: 05/31/20 08:31 Dose: 500 mg Documented by: Cholecalciferol (Vitamin D (25mcg)) 2,000 unit PO DAILY [facility] Last Admin: 05/31/20 08:34 Dose: 2,000 unit Documented by: Dexamethasone Sodium Phosphate (Decadron) 6 mg IV Q24 [facility] Stop: 06/09/20 10:01 Last Admin: 05/31/20 18:03 Dose: 6 mg Documented by: Dextrose (D50w Syringe) 0 gm IV X1 PRN; Protocol PRN Reason: Hypoglycemia Enoxaparin Sodium (Lovenox) 30 mg SC BID [facility] Last Admin: 05/31/20 21:33 Dose: 30 mg Documented by: Gabapentin (Neurontin) 300 mg PO TID [facility] Last Admin: 06/01/20 05:37 Dose: 300 mg Documented by: Glucagon () 1 mg IM .X1 PRN PRN Reason: Hypoglycemia Guaifenesin (Mucinex) 1,200 mg PO BID [facility] Last Admin: 05/31/20 21:34 Dose: 1,200 mg Documented by: Ceftriaxone Sodium (Rocephin) 1 gm in 50 mls @ 100 mls/hr IV Q12 [facility] Last Infusion: 05/31/20 22:04 Dose: Infused Documented by: Sodium Chloride () 500 mls @ 15 mls/hr IV PRN PRN PRN Reason: Blood Transfusion Sodium Chloride () 250 mls @ 15 mls/hr IV .[id number] PRN PRN Reason: Saline Flush Last Infusion: 05/31/20 22:10 Dose: 0 mls/hr Documented by: Montelukast Sodium (Singulair) 10 mg PO QHS [facility] Last Admin: 05/31/20 21:34 Dose: 10 mg Documented by: Ondansetron HCl (Zofran) 4 mg IV Q8H PRN PRN PRN Reason: NAUSEA/VOMITING Oxycodone HCl (Oxyir) 5 mg PO Q4H PRN PRN PRN Reason: Pain Score 6-10/10 Pantoprazole Sodium (Protonix) 40 mg PO DAILY [facility] Last Admin: 05/31/20 08:34 Dose: 40 mg Documented by: Phenazopyridine HCl (Azo Standard) 95 mg PO TID PRN PRN PRN Reason: DISURIA Polyethylene Glycol (Miralax) 17 gm PO BID [facility] Last Admin: 05/31/20 21:48 Dose: Not Given Documented by: Pyridoxine HCl (Vitamin B-6) 100 mg PO BID [facility] Last Admin: 05/31/20 21:34 Dose: 100 mg Documented by: Senna/Docusate Sodium (Senokot-S, Bertha-Colace) 1 tablet PO DAILY PRN PRN PRN Reason: CONSTIPATION Sodium Chloride () 10 - 40 ml IV UD PRN PRN Reason: SALINE FLUSH Last Admin: 05/31/20 21:34 Dose: 20 ml Documented by: STROKE Vital Signs/Narrative: Vital Signs Temp Pulse Resp BP Pulse Ox 06/01/20 05:00 98.1 F 60 16 120/61 97 06/01/20 04:00 98.1 F 66 17 113/50 L 97 Medical Necessity - Tobacco Use Smoking Status: Former smoker Assessment/Plan All Active Problems Sepsis (Acute) Acute cystitis (Acute) 1. Acute hypoxia likely related to acute fluid overload versus transfusion reaction vs COVID-19 infection, resolved. CT of the chest showed views interstitial pulmonary edema Will continue to encourage use of incentive spirometer, albuterol inhaler prn 2. Suspected acute COVID-19 infection, in enhanced precautions Procalcitonin on admission is 0.15, CRP 149, BNPep 253.7, LDH 190, Lactic acid 1.4, ferritin 2919 On IV dexamethasone 3. Possible transfusion reaction, s/p 2 units pRBC Blood cultures are negative, transfusion reaction culture pending, gram stain negative 4. Sepsis secondary to acute E. coli UTI, improving, Urine cultures pending, blood cultures negative, COVID-19 PCR negative x 2 Continue on IV ceftriaxone 5. Chronic leg swelling, no reported history of CHF 2d-ECHO shows EF 65%, will continue daily weights 6. Myelodysplastic syndrome/lymphoma, following with oncology 7. DVT PPx- Lovenox SC BID Inpatient E&M: 09800 Subs Hosp L2
--- NOTE | 2020-06-01 09:33 | CASEMGMT ---
RN CM Note: participated in ICU interdisciplinary rounds. Continues in isolation currently. Second COVID testing negative, Dr. Raygoza on consult. 3L NC, will attempt to wean. Patient does not wear home oxygen. CM to continue to follow and assist with any homegoing needs that arise. Josefina BSN RN ACM
--- NOTE | 2020-06-01 09:46 | CT_ITS ---
STUDY: CT ABDOMEN AND PELVIS WITH CONTRAST REASON FOR EXAM: Male, 75 years old. ABD PAIN, SEPSIS, FEVER, Weakness, chronic leg swelling RADIATION DOSAGE (If Supplied By Facility): CTDIvol = ( 14.30 ) mGy, DLP = ( 1008.21 ) mGycm TECHNIQUE: Transaxial images were obtained from the dome of the diaphragm to the symphysis pubis without oral contrast. Oral and amp; IV Gastrografin and amp; 100mL Isovue-300 was administered. Sagittal and coronal images were reconstructed. Individualized dose optimization techniques were used for this CT. COMPARISON: None. FINDINGS: Lung bases show bilateral pleural effusions with bibasilar atelectasis. The visualized portions of the heart are within normal limits. Normal liver. Normal gallbladder and extrahepatic biliary system. There is mild splenomegaly. Normal pancreas. Normal bilateral adrenal glands. There are mildly dilated renal pelves and calyces. There is nonspecific induration around the periphery of both kidneys. Left ureter is of normal course and caliber while while there is right-sided hydroureter and periureteral inflammatory stranding. No obstructing stone stricture or mass is noted. Findings suggest perhaps recent passage of a stone. Normal visualized stomach. Multiple nondistended fluid-filled small bowel loops are noted consistent with ileus. Normal colon. The appendix is visualized and appears normal. Breast seen on coronal recon image 56 There is diffuse atherosclerotic calcification of the abdominal aorta, without a demonstrated aneurysm. Normal inferior vena cava. Normal retroperitoneum. Bladder contains a Delacruz catheter and air likely from Delacruz catheter placement. There are prostatic calcifications. Induration of the subcutaneous fat consistent with anasarca. There are diffuse degenerative changes of the visualized lumbar spine. CT/Abdomen/Pelvis WITH Contrast IMPRESSION: Dilated renal pelves and calyces with nonspecific induration of the perinephric fat. Each kidney however enhances normally and the borders are well-defined. There is a simple right renal cyst which needs no specific follow-up. There is right-sided hydroureter with periureteral inflammatory stranding. No obstructing stone or stricture is noted. This could be explained either by nonradiopaque stone or recent passage of a stone. Small bowel ileus Induration of the subcutaneous fat consistent with anasarca Degenerative bony changes Delacruz catheter noted within the bladder Free-flowing bilateral pleural effusions and bibasilar atelectasis Electronically Signed: Vishnu Mckinney MD at 13:01 EDT , Service support ,
--- NOTE | 2020-06-01 10:12 | PCM.PN.INT ---
Subjective: Patient did well overnight. Patient did have a high fever, but tolerated it well hemodynamically. Patient has been able to be weaned to room air this morning and did have multiple bowel movements overnight. Patient continues to report a dull left-sided abdominal pain. Objective: Echocardiogram showed mild aortic stenosis with elevated pulmonary artery pressures, but no diastolic dysfunction or focal wall motion abnormalities noted. General: Alert, Oriented x3, Cooperative, No apparent distress, - - No conversational dyspnea. HEENT: Atraumatic, PERRLA, EOMI, Normocephalic, - - No scleral icterus or injection noted Oral: Moist Mucosa, No Gingival or Mucosal Lesions/ Ulcerations Neck: Supple, No JVD, No Nodes, Trachea Midline Lungs: No rhonchi, No wheeze, No rales, Diminished, - - Symmetric expansion. Abdomen: Bowel Sounds Present, Soft, Distended - Improved from yesterday, Tender - Left lower quadrant Extremities: No clubbing, No cyanosis, No edema, Capillary Refill Less than 3 Seconds Skin: No rashes, No breakdown Musculoskeletal: No Tenderness to Palpation of Joints or Extremities Lymphatic: No Cervical, Supraclavicular, or Inguinal Adenopathy Neurological: Cranial nerves II-XII grossly intact, Neuro grossly intact, Motor Exam 5/5 strength throughout Psych/Mental Status: Alert and oriented to time, place, person, mood and affect Vital Signs Temp Pulse Resp BP Pulse Ox 36.7 C 60 16 120/61 97 06/01/20 05:00 06/01/20 05:00 06/01/20 05:00 06/01/20 05:00 06/01/20 09:16 Oxygen Flow Rate (L/min) 3 Oxygen Delivery Method Nasal Cannula Weight: 84.3 kg Body Mass Index (BMI) 26.6 Intake and Output for Last 24 Hours 05/30/20 05/31/20 06/01/20 23:59 23:59 23:59 Intake Total 1077.5 / 1077.5 2349.5 / 2349.5 240 / 240 Output Total 2175 / 2175 2410 / 2410 230 / 230 Balance -1097.5 / -1097.5 -60.5 / -60.5 Labs (Last 48 Hours) 05/30/20 05/30/20 05/30/20 15:40 15:45 15:45 WBC 9.2 RBC 2.37 L Hgb 8.4 L Hct 24.9 L MCV 105.1 H MCH 35.4 H MCHC 33.7 RDW Std Deviation 93.8 H RDW Coeff of Jcarlos 24.9 H Plt Count 204 MPV 11.7 Immature Gran % (Auto) 0.400 Neut % (Auto) 91.8 H Lymph % (Auto) 2.8 L Green[place] % (Auto) 4.8 Eos % (Auto) 0.0 Baso % (Auto) 0.2 Absolute Neuts (auto) 8.4 H Absolute Lymphs (auto) 0.26 L Nucleated RBC % 0 Differential Comment SEE COMMENT Diff Path Review Platelet Estimate ADEQUATE RBC Morphology N CHROM Anisocytosis 2+ Macrocytosis 2+ Ovalocytes Schistocytes PT 16.2 H INR 1.4 APTT 31.7 Fibrinogen D-Dimer Quant (PE/DVT) 1.01 H* Sodium Potassium Chloride Carbon Dioxide Anion Gap BUN Creatinine Estim Creat Clear Calc Est GFR (MDRD) Af Amer Est GFR (MDRD) Non-Af BUN/Creatinine Ratio Glucose Lactic Acid Calcium Magnesium Ferritin Total Bilirubin AST ALT Alkaline Phosphatase Lactate Dehydrogenase Troponin I C-React Prot Ext Range B-Natriuretic Peptide Total Protein Albumin Globulin Albumin/Globulin Ratio Triglycerides Procalcitonin Urine Color Urine Clarity Urine pH Ur Specific [place] Urine Protein Urine Glucose (UA) Urine Ketones Urine Occult Blood Urine Nitrite Urine Bilirubin Urine Urobilinogen Ur Leukocyte Esterase Urine RBC Urine WBC Ur Squamous Epith Cells Urine Bacteria Urine Mucus COVID-19 (KATLIN) Negative Blood Type Antibody Screen Direct Antiglob Test Crossmatch 05/30/20 05/30/20 05/30/20 15:45 15:45 15:45 WBC RBC Hgb Hct MCV MCH MCHC RDW Std Deviation RDW Coeff of Jcarlos Plt Count MPV Immature Gran % (Auto) Neut % (Auto) Lymph % (Auto) [place] % (Auto) Eos % (Auto) Baso % (Auto) Absolute Neuts (auto) Absolute Lymphs (auto) Nucleated RBC % Differential Comment Diff Path Review Platelet Estimate RBC Morphology Anisocytosis Macrocytosis Ovalocytes Schistocytes PT INR APTT Fibrinogen D-Dimer Quant (PE/DVT) Sodium 130 L Potassium 4.0 Chloride 99 Carbon Dioxide 26.0 Anion Gap 5 BUN 15 Creatinine 0.87 Estim Creat Clear Calc 74.58 Est GFR (MDRD) Af Amer 110 Est GFR (MDRD) Non-Af 91 BUN/Creatinine Ratio 17.3 Glucose 131 H Lactic Acid 1.4 Calcium 8.7 Magnesium Ferritin Total Bilirubin 2.60 H AST 47 H ALT 72 H Alkaline Phosphatase 86 Lactate Dehydrogenase Troponin I C-React Prot Ext Range B-Natriuretic Peptide 253.7 H Total Protein 7.3 Albumin 3.9 Globulin 3.4 Albumin/Globulin Ratio 1.1 Triglycerides Procalcitonin Urine Color Urine Clarity Urine pH Ur Specific [place] Urine Protein Urine Glucose (UA) Urine Ketones Urine Occult Blood Urine Nitrite Urine Bilirubin Urine Urobilinogen Ur Leukocyte Esterase Urine RBC Urine WBC Ur Squamous Epith Cells Urine Bacteria Urine Mucus COVID-19 (KATLIN) Blood Type Antibody Screen Direct Antiglob Test Crossmatch 05/30/20 05/30/20 05/30/20 15:45 15:45 15:45 WBC RBC Hgb Hct MCV MCH MCHC RDW Std Deviation RDW Coeff of Jcarlos Plt Count MPV Immature Gran % (Auto) Neut % (Auto) Lymph % (Auto) [place] % (Auto) Eos % (Auto) Baso % (Auto) Absolute Neuts (auto) Absolute Lymphs (auto) Nucleated RBC % Differential Comment Diff Path Review Platelet Estimate RBC Morphology Anisocytosis Macrocytosis Ovalocytes Schistocytes PT INR APTT Fibrinogen 491 H D-Dimer Quant (PE/DVT) Sodium Potassium Chloride Carbon Dioxide Anion Gap BUN Creatinine Estim Creat Clear Calc Est GFR (MDRD) Af Amer Est GFR (MDRD) Non-Af BUN/Creatinine Ratio Glucose Lactic Acid Calcium Magnesium Ferritin 2919 H Total Bilirubin AST ALT Alkaline Phosphatase Lactate Dehydrogenase 190 Troponin I < 0.015 C-React Prot Ext Range 149.00 H B-Natriuretic Peptide Total Protein Albumin Globulin Albumin/Globulin Ratio Triglycerides 39 Procalcitonin Urine Color Urine Clarity Urine pH Ur Specific [place] Urine Protein Urine Glucose (UA) Urine Ketones Urine Occult Blood Urine Nitrite Urine Bilirubin Urine Urobilinogen Ur Leukocyte Esterase Urine RBC Urine WBC Ur Squamous Epith Cells Urine Bacteria Urine Mucus COVID-19 (KATLIN) Blood Type Antibody Screen Direct Antiglob Test Crossmatch 05/30/20 05/30/20 05/30/20 15:45 16:20 18:52 WBC RBC Hgb Hct MCV MCH MCHC RDW Std Deviation RDW Coeff of Jcarlos Plt Count MPV Immature Gran % (Auto) Neut % (Auto) Lymph % (Auto) [place] % (Auto) Eos % (Auto) Baso % (Auto) Absolute Neuts (auto) Absolute Lymphs (auto) Nucleated RBC % Differential Comment Diff Path Review Platelet Estimate RBC Morphology Anisocytosis Macrocytosis Ovalocytes Schistocytes PT INR APTT Fibrinogen D-Dimer Quant (PE/DVT) Sodium Potassium Chloride Carbon Dioxide Anion Gap BUN Creatinine Estim Creat Clear Calc Est GFR (MDRD) Af Amer Est GFR (MDRD) Non-Af BUN/Creatinine Ratio Glucose Lactic Acid Calcium Magnesium Ferritin Total Bilirubin AST ALT Alkaline Phosphatase Lactate Dehydrogenase Troponin I C-React Prot Ext Range B-Natriuretic Peptide Total Protein Albumin Globulin Albumin/Globulin Ratio Triglycerides Procalcitonin 0.15 H Urine Color SEE COMMENT BELOW Urine Clarity Clear Urine pH 5.0 Ur Specific [place] 1.015 Urine Protein 30 H Urine Glucose (UA) Normal Urine Ketones Negative Urine Occult Blood 10 H Urine Nitrite Positive H Urine Bilirubin 3 H Urine Urobilinogen 8 H Ur Leukocyte Esterase 25 H Urine RBC 0 SEEN Urine WBC 0-5 SEEN Ur Squamous Epith Cells 0 SEEN Urine Bacteria 0 SEEN Urine Mucus 0 SEEN COVID-19 (KATLIN) Blood Type B POSITIVE Antibody Screen NEGATIVE Direct Antiglob Test Crossmatch See Detail 05/30/20 05/31/20 05/31/20 21:45 02:15 05:27 WBC RBC Hgb Hct MCV MCH MCHC RDW Std Deviation RDW Coeff of Jcarlos Plt Count MPV Immature Gran % (Auto) Neut % (Auto) Lymph % (Auto) [place] % (Auto) Eos % (Auto) Baso % (Auto) Absolute Neuts (auto) Absolute Lymphs (auto) Nucleated RBC % Differential Comment Diff Path Review Platelet Estimate RBC Morphology Anisocytosis Macrocytosis Ovalocytes Schistocytes PT INR APTT Fibrinogen D-Dimer Quant (PE/DVT) Sodium Potassium Chloride Carbon Dioxide Anion Gap BUN Creatinine Estim Creat Clear Calc Est GFR (MDRD) Af Amer Est GFR (MDRD) Non-Af BUN/Creatinine Ratio Glucose Lactic Acid Calcium Magnesium Ferritin Total Bilirubin AST ALT Alkaline Phosphatase Lactate Dehydrogenase Troponin I < 0.015 0.022 C-React Prot Ext Range B-Natriuretic Peptide Total Protein Albumin Globulin Albumin/Globulin Ratio Triglycerides Procalcitonin Urine Color Urine Clarity Urine pH Ur Specific [place] Urine Protein Urine Glucose (UA) Urine Ketones Urine Occult Blood Urine Nitrite Urine Bilirubin Urine Urobilinogen Ur Leukocyte Esterase Urine RBC Urine WBC Ur Squamous Epith Cells Urine Bacteria Urine Mucus COVID-19 (KATLIN) Blood Type Antibody Screen Direct Antiglob Test NEG w/POLYSPECIFIC Crossmatch 05/31/20 05/31/20 05/31/20 05:50 05:50 05:50 WBC 4.9 RBC 2.63 L Hgb 8.8 L Hct 27.2 L MCV 103.4 H MCH 33.5 H MCHC 32.4 RDW Std Deviation 86.6 H RDW Coeff of Jcarlos 23.3 H Plt Count 183 MPV 11.9 Immature Gran % (Auto) 0.400 Neut % (Auto) 89.4 H Lymph % (Auto) 3.9 L [place] % (Auto) 6.1 Eos % (Auto) 0.0 Baso % (Auto) 0.2 Absolute Neuts (auto) 4.4 Absolute Lymphs (auto) 0.19 L Nucleated RBC % 0 Differential Comment Diff Path Review Platelet Estimate RBC Morphology N CHROM Anisocytosis 1+ Macrocytosis Ovalocytes Schistocytes PT INR APTT Fibrinogen D-Dimer Quant (PE/DVT) Sodium 131 L Potassium 3.6 Chloride 100 Carbon Dioxide 26.0 Anion Gap 5 BUN 16 Creatinine 0.97 Estim Creat Clear Calc 66.90 Est GFR (MDRD) Af Amer 97 Est GFR (MDRD) Non-Af 80 BUN/Creatinine Ratio 16.5 Glucose 119 H Lactic Acid Calcium 7.6 L Magnesium Ferritin Total Bilirubin 2.10 H AST 45 H ALT 54 Alkaline Phosphatase 64 Lactate Dehydrogenase Troponin I 0.018 C-React Prot Ext Range B-Natriuretic Peptide Total Protein 6.1 L Albumin 3.0 L Globulin 3.1 Albumin/Globulin Ratio 1.0 Triglycerides Procalcitonin Urine Color Urine Clarity Urine pH Ur Specific [place] Urine Protein Urine Glucose (UA) Urine Ketones Urine Occult Blood Urine Nitrite Urine Bilirubin Urine Urobilinogen Ur Leukocyte Esterase Urine RBC Urine WBC Ur Squamous Epith Cells Urine Bacteria Urine Mucus COVID-19 (KATLIN) Blood Type Antibody Screen Direct Antiglob Test Crossmatch 06/01/20 06/01/20 06/01/20 03:40 03:40 Unknown WBC 1.8 L RBC 2.67 L Hgb 9.1 L Hct 27.2 L MCV 101.9 H MCH 34.1 H MCHC 33.5 RDW Std Deviation 85.0 H RDW Coeff of Jcarlos 23.0 H Plt Count 142 L MPV 12.6 H Immature Gran % (Auto) 1.100 H Neut % (Auto) 78.8 H Lymph % (Auto) 12.8 L [place] % (Auto) 7.3 Eos % (Auto) 0.0 Baso % (Auto) 0.0 Absolute Neuts (auto) 1.4 L Absolute Lymphs (auto) 0.23 L Nucleated RBC % 0 Differential Comment SCANNED Diff Path Review May foll Platelet Estimate RBC Morphology Anisocytosis 1+ Macrocytosis 1+ Ovalocytes RARE Schistocytes RARE PT INR APTT Fibrinogen D-Dimer Quant (PE/DVT) Sodium 131 L Potassium 3.7 Chloride 99 Carbon Dioxide 26.0 Anion Gap 6 BUN 17 Creatinine 0.81 Estim Creat Clear Calc 80.11 Est GFR (MDRD) Af Amer 119 Est GFR (MDRD) Non-Af 98 BUN/Creatinine Ratio 20.9 H Glucose 160 H Lactic Acid Calcium 7.9 L Magnesium 2.3 Ferritin Total Bilirubin 0.90 AST 37 ALT 50 Alkaline Phosphatase 61 Lactate Dehydrogenase Troponin I C-React Prot Ext Range B-Natriuretic Peptide Total Protein 6.1 L Albumin 3.0 L Globulin 3.1 Albumin/Globulin Ratio 1.0 Triglycerides Procalcitonin Urine Color Urine Clarity Urine pH Ur Specific [place] Urine Protein Urine Glucose (UA) Urine Ketones Urine Occult Blood Urine Nitrite Urine Bilirubin Urine Urobilinogen Ur Leukocyte Esterase Urine RBC Urine WBC Ur Squamous Epith Cells Urine Bacteria Urine Mucus COVID-19 (KATLIN) Not Detected Blood Type Antibody Screen Direct Antiglob Test Crossmatch Microbiology 05/31/20 05:27 Blood product unit Transfusion Reaction Gram Stain - Final Medical Necessity - Tobacco Use Smoking Status: Former smoker Assessment/Plan All Active Problems Sepsis (Acute) Acute cystitis (Acute) RECOMMENDATIONS: 1. Increase activity as tolerated 2. Obtain CT of the abdomen and pelvis with p.o. and IV contrast 3. Okay to slow down on bowel regimen 4. Sitter discontinuation of COVID precautions 5. Possible transfer from the intensive care unit later today IMPRESSIONS: 1. Acute hypoxic respiratory failure Unclear etiology at this time. Patient did have hypoxia on presentation with bilateral infiltrates. Differential diagnosis would include COVID-19, congestive heart failure, atelectasis with hypoventilation and pulmonary embolism. Patient does have bronchiectasis, but does not have a focal infiltrate on chest x-ray or CT scan to suggest acute pneumonia. Patient was significant improvement over the last 24 hours and is now down to room air. Patient did have a bowel movement with subjective improvement. Patient is having cough with incentive spirometer indicating an element of atelectasis. Patient was started on anticoagulation and Decadron last evening, but is been on these medications for less than 24 hours, so it is unclear if they would make such a clinical improvement 2. Severe sepsis Exact etiology is unclear. Patient reportedly was treated for cystitis recently and this may be why there are no bacteria or white blood cells in the urine. Patient also has bronchiectasis, but has no focal infiltrates. COVID-19 would be a consideration. Would attempt to obtain sputum culture if possible. Patient does have chronic lower extremity edema on physical exam, but no signs of cellulitis that I can tell. Patient with high fevers yesterday. Patient does have recurrent constipation at baseline. Clinical suspicion for diverticulitis leading to current sepsis. Patient is doing well from a renal perspective, so will obtain a CT of the abdomen and pelvis with contrast. 3. Constipation/acute on chronic anemia/myelodysplastic syndrome/Waldenstrom macroglobulinemia Complicates care, management, recovery and prognosis. Aggressive bowel regimen has been ordered. Would hold on further transfusions. Inpatient E&M: [id number] [facility] Hosp L3
--- NOTE | 2020-06-01 10:21 | PCM.PN.ID ---
Patient Problems: Active and Suspected Problems Sepsis (Acute) Acute cystitis (Acute) Subjective: Feeling better today, less dyspnea, fever resolved. - Physical Exam Vitals/I&O's: Vital Signs Temp Pulse Resp BP Pulse Ox 98.1 F 60 16 120/61 97 06/01/20 05:00 06/01/20 05:00 06/01/20 05:00 06/01/20 05:00 06/01/20 09:16 Oxygen Flow Rate (L/min) 3 Oxygen Delivery Method Nasal Cannula Weight: 84.3 kg Body Mass Index (BMI) 26.6 Intake and Output for Last 24 Hours 05/30/20 05/31/20 06/01/20 23:59 23:59 23:59 Intake Total 1077.5 / 1077.5 2349.5 / 2349.5 240 / 240 Output Total 2175 / 2175 2410 / 2410 230 / 230 Balance -1097.5 / -1097.5 -60.5 / -60.5 General: Alert, Cooperative, No apparent distress Lungs: Diminished Cardiovascular: Regular rate, Regular Rhythm Abdomen: Soft, Non Tender, Non-Distended Skin: No rashes Microbiology Past 72 Hours 05/31/20 05:27 Blood product unit Transfusion Reaction Gram Stain - Final Laboratory Results 06/01/20 03:40: WBC 1.8 L, RBC 2.67 L, Hgb 9.1 L, Hct 27.2 L, MCV 101.9 H, MCH 34.1 H, MCHC 33.5, RDW Std Deviation 85.0 H, RDW Coeff of Jcarlos 23.0 H, Plt Count 142 L, MPV 12.6 H, Immature Gran % (Auto) 1.100 H, Neut % (Auto) 78.8 H, Lymph % (Auto) 12.8 L, [place] % (Auto) 7.3, Eos % (Auto) 0.0, Baso % (Auto) 0.0, Absolute Neuts (auto) 1.4 L, Absolute Lymphs (auto) 0.23 L, Nucleated RBC % 0, Differential Comment SCANNED, Diff Path Review May foll, Anisocytosis 1+, Macrocytosis 1+, Ovalocytes RARE, Schistocytes RARE 06/01/20 03:40: Sodium 131 L, Potassium 3.7, Chloride 99, Carbon Dioxide 26.0, Anion Gap 6, BUN 17, Creatinine 0.81, Estim Creat Clear Calc 80.11, Est GFR (MDRD) Af Amer 119, Est GFR (MDRD) Non-Af 98, BUN/Creatinine Ratio 20.9 H, Glucose 160 H, Calcium 7.9 L, Magnesium 2.3, Total Bilirubin 0.90, AST 37, ALT 50, Alkaline Phosphatase 61, Total Protein 6.1 L, Albumin 3.0 L, Globulin 3.1, Albumin/Globulin Ratio 1.0 06/01/20 : COVID-19 (KATLIN) Not Detected Current Medications Acetaminophen (Tylenol) 650 mg PO Q6H PRN PRN PRN Reason: Pain Score 1-10/Temp > 100.7 F Last Admin: 05/31/20 13:19 Dose: 650 mg Documented by: Albuterol Sulfate (Proair Hfa (Sp) Surgery/Vent Pts) 2 puff INHALATION Q4H PRN PRN PRN Reason: SOB &/OR WHEEZING Calcium Carbonate (Os-Yordan 500) 500 mg PO DAILYCM [facility] Last Admin: 05/31/20 08:31 Dose: 500 mg Documented by: Cholecalciferol (Vitamin D (25mcg)) 2,000 unit PO DAILY [facility] Last Admin: 05/31/20 08:34 Dose: 2,000 unit Documented by: Dexamethasone Sodium Phosphate (Decadron) 6 mg IV Q24 [facility] Stop: 06/09/20 10:01 Last Admin: 05/31/20 18:03 Dose: 6 mg Documented by: Dextrose (D50w Syringe) 0 gm IV X1 PRN; Protocol PRN Reason: Hypoglycemia Enoxaparin Sodium (Lovenox) 30 mg SC BID [facility] Last Admin: 05/31/20 21:33 Dose: 30 mg Documented by: Gabapentin (Neurontin) 300 mg PO TID [facility] Last Admin: 06/01/20 05:37 Dose: 300 mg Documented by: Glucagon () 1 mg IM .X1 PRN PRN Reason: Hypoglycemia Guaifenesin (Mucinex) 1,200 mg PO BID [facility] Last Admin: 05/31/20 21:34 Dose: 1,200 mg Documented by: Ceftriaxone Sodium (Rocephin) 1 gm in 50 mls @ 100 mls/hr IV Q12 [facility] Last Infusion: 05/31/20 22:04 Dose: Infused Documented by: Sodium Chloride () 500 mls @ 15 mls/hr IV PRN PRN PRN Reason: Blood Transfusion Sodium Chloride () 250 mls @ 15 mls/hr IV .[id number] PRN PRN Reason: Saline Flush Last Infusion: 05/31/20 22:10 Dose: 0 mls/hr Documented by: Insulin Human Lispro (Humalog Kwikpen (Bkc)) 0 unit SC ACHS [facility]; Protocol Montelukast Sodium (Singulair) 10 mg PO QHS [facility] Last Admin: 05/31/20 21:34 Dose: 10 mg Documented by: Ondansetron HCl (Zofran) 4 mg IV Q8H PRN PRN PRN Reason: NAUSEA/VOMITING Oxycodone HCl (Oxyir) 5 mg PO Q4H PRN PRN PRN Reason: Pain Score 6-10/10 Pantoprazole Sodium (Protonix) 40 mg PO DAILY [facility] Last Admin: 05/31/20 08:34 Dose: 40 mg Documented by: Phenazopyridine HCl (Azo Standard) 95 mg PO TID PRN PRN PRN Reason: DISURIA Polyethylene Glycol (Miralax) 17 gm PO BID [facility] Last Admin: 05/31/20 21:48 Dose: Not Given Documented by: Pyridoxine HCl (Vitamin B-6) 100 mg PO BID [facility] Last Admin: 05/31/20 21:34 Dose: 100 mg Documented by: Senna/Docusate Sodium (Senokot-S, Bertha-Colace) 1 tablet PO DAILY PRN PRN PRN Reason: CONSTIPATION Sodium Chloride () 10 - 40 ml IV UD PRN PRN Reason: SALINE FLUSH Last Admin: 05/31/20 21:34 Dose: 20 ml Documented by: Medical Necessity - Tobacco Use Smoking Status: Former smoker Route of nutrition/ use of supplements: [] Nutritional Intake: [] IV Site: [] Delacruz Catheter: [] - Assessment/Plan Antibiotics: [] Assessment/Plan: [] Active and Suspected Problems Sepsis (Acute) Acute cystitis (Acute) hypoxia, sepsis, ecoli bacteruria - UA on 05/28 and 05/30 without pyuria. Ucx 05/28 with sensitive ecoli after coming in at that time with lower abd pain and dysuria. Started on keflex by the ED which should have worked on that ecoli. 05/30 came in with fever, headache, sore throat, lymphopenia. Given with similar symptoms recently and significant fever/hypoxia, high concern for covid even with neg PCR x2. Fever dramatically improved with decadron. Cont ceftriaxone. Will follow
[2020-06-01 12:10] LABS: Pathologist Review Reviewed
[2020-06-01] MEDS: Enoxaparin 30 MG/0.3 ML Syringe SC ×2 (13:45→21:33)
[2020-06-01] MEDS: Pantoprazole Sodium 40 MG Tablet PO (13:45)
[2020-06-01] MEDS: dexAMETHasone 10 MG/ML Vial 6 MG IV (13:46)
[2020-06-01] MEDS: Calcium (Elemental) 500 MG Tablet PO (13:47)
[2020-06-01] MEDS: guaiFENesin 1,200 MG Tablet 1200 MG PO ×2 (13:47→21:33)
[2020-06-01] MEDS: Pyridoxine HCl 100 MG Tablet PO ×2 (13:47→21:33)
[2020-06-01] MEDS: Ceftriaxone 1 GM/50 ML BAG IV ×2 (13:51→21:31)
[2020-06-01 14:11] LABS: Bedside Glucose 158 mg/dL (70-110)
[2020-06-01 16:46] LABS: Bedside Glucose 179 mg/dL (70-110)
[2020-06-01] MEDS: Insulin Lispro 100 UNIT/ML INSULN.PEN SC ×2 (16:48→21:39)
[2020-06-01] MEDS: Montelukast 10 MG Tablet PO (21:33)
[2020-06-01] MEDS: Acetaminophen 325 MG Tablet 650 MG PO (22:13)
[2020-06-01 22:31] LABS: Bedside Glucose 221 mg/dL (70-110)
[2020-06-01] MEDS: Phenazopyridine 95 MG Tablet PO (23:40)
--- NOTE | 2020-06-01 23:47 | NURSING ---
pt assisted up to the toilet to have another loose bm. still c/o burning and pain at the cath site, prn azo and oxy given. rating his pain an 8/10
[2020-06-01] MEDS: oxyCODONE 5 MG Tablet PO (23:49)
[2020-06-02] VITALS (16 sets, daily range): BP systolic 105–169; BP diastolic 33–88; PULSE 54–77; RESP 12–18; TEMP 36.2–37.1; O2SAT 90–98
[2020-06-02 04:39] LABS: Absolute Lymphocyte Count 0.45 X10^3/uL (0.83-4.51); Absolute Neutrophil Count 2.7 X10^3/uL (2.0-7.7); Eosinophil# 0.01 X10^3/uL; Eosinophils% 0.3 % (0-5); Hematocrit 26.6 % (40-54); Lymphocyte # 0.45 X10^3/ul (4.0); Lymphocyte % 13.1 % (19-41); Mean Corp Hgb Conc 33.8 g/dL (32-36); Mean Corpuscular Volume 100.4 fL (80-94); Mean Platelet Vol. 11.8 fl (6.2-12.0); Monocyte% 8.7 % (0-10); NRBC Flagged by Analyzer 0 % (0-5); Neutrophil # 2.65 X10^3/uL (2.7-7.7); POSITIVE DIFFERENTIAL YES; POSITIVE MORPHOLOGY YES; Platelet Count 164 K/mm3 (150-450); RBC Distribution Width CV 22.4 % (11.6-14.6); RBC Distribution Width SD 82.1 fl (35.1-43.9); Red Blood Count 2.65 M/mm3 (4.6-6.2); White Blood Count 3.4 K/mm3 (4.4-11.0)
[2020-06-02 04:43] LABS: Differential Indicated SCAN CRITERIA MET
[2020-06-02 04:56] LABS: ALB/GLOB Ratio 0.9 RATIO (0.9-2.4); AST(SGOT) 46 U/L (15-37); Alanine Aminotransfer ALT/SGPT 51 U/L (16-61); Alkaline Phosphatase 64 U/L (45-117); Anion Gap 5 (5-15); BUN 19 mg/dL (7-18); BUN/Creat Ratio 25.4 RATIO (10-20); Calcium,Total 8.5 mg/dL (8.5-10.1); Chloride 99 mmol/L (98-107); Creatinine, Serum 0.75 mg/dL (0.70-1.30); EST Glomerular Filtration Rate 108 mL/min (>60); Est Glom Filt Rate - Afr Amer 130 mL/min (>60); Estimated Creatinine Clearance 64.89 ml/min; Globulin 3.4 g/dL (2.2-4.2); Glucose 169 mg/dL (74-106); Potassium 4.3 mmol/L (3.5-5.1); Protein, Total 6.4 g/dL (6.4-8.2); Sodium Level 131 mmol/L (136-145)
[2020-06-02 05:38] LABS: Anisocytosis 1+; Differential Comment SCANNED; Macrocytosis 1+
[2020-06-02 05:40] LABS: Ovalocyte RARE
[2020-06-02] MEDS: Gabapentin 300 MG Capsule PO (05:46)
[2020-06-02] MEDS: Insulin Lispro 100 UNIT/ML INSULN.PEN SC ×2 (07:16→12:23)
[2020-06-02] MEDS: Phenazopyridine 95 MG Tablet PO (07:16)
[2020-06-02 07:36] LABS: Bedside Glucose 152 mg/dL (70-110)
--- NOTE | 2020-06-02 08:01 | PN_ITS ---
Subjective: Patient did okay overnight. Patient has had significant flatus and diarrhea reported and continues to report vague left-sided abdominal pain. Patient does believe this is improving. Patient has no respiratory symptoms at this time General: Alert, Oriented x3, Cooperative, No apparent distress, Well developed, Well nourished, - - Speaking in full sentences HEENT: Atraumatic, PERRLA, EOMI, Normocephalic, - - No scleral icterus or injection noted. Glasses in place. Oral: Moist Mucosa, No Gingival or Mucosal Lesions/ Ulcerations Neck: Supple, No JVD, No Nodes, Trachea Midline Lungs: Clear to auscultation, Normal air movement, No rhonchi, No wheeze, No rales Cardiovascular: Regular rate, Regular Rhythm, Normal S1, Normal S2, No murmurs, No rub noted, No Gallop Abdomen: Bowel Sounds Present, Soft, Tender - Palpation on the left, but no rebound or guarding Extremities: No clubbing, No cyanosis, No edema Skin: No rashes, No breakdown Musculoskeletal: No Tenderness to Palpation of Joints or Extremities Lymphatic: No Cervical, Supraclavicular, or Inguinal Adenopathy Neurological: Cranial nerves II-XII grossly intact, Neuro grossly intact, Motor Exam 5/5 strength throughout Psych/Mental Status: Alert and oriented to time, place, person, mood and affect Vital Signs Temp Pulse Resp BP Pulse Ox 36.3 C L 74 13 146/55 H 96 06/02/20 07:00 06/02/20 07:00 06/02/20 07:00 06/02/20 07:00 06/02/20 07:40 Oxygen Flow Rate (L/min) 2 Oxygen Delivery Method Nasal Cannula Weight: 84.5 kg Body Mass Index (BMI) 26.6 Intake and Output for Last 24 Hours 05/31/20 06/01/20 06/02/20 23:59 23:59 23:59 Intake Total 2349.5 / 2349.5 920 / 920 100 / 100 Output Total 2410 / 2410 5955 / 6105 1350 / 1350 Balance -60.5 / -60.5 -5035 / -5185 -1250 / -1250 Labs (Last 48 Hours) 06/01/20 06/01/20 06/01/20 03:40 03:40 13:53 WBC 1.8 L RBC 2.67 L Hgb 9.1 L Hct 27.2 L MCV 101.9 H MCH 34.1 H MCHC 33.5 RDW Std Deviation 85.0 H RDW Coeff of Jcarlos 23.0 H Plt Count 142 L MPV 12.6 H Immature Gran % (Auto) 1.100 H Neut % (Auto) 78.8 H Lymph % (Auto) 12.8 L [place] % (Auto) 7.3 Eos % (Auto) 0.0 Baso % (Auto) 0.0 Absolute Neuts (auto) 1.4 L Absolute Lymphs (auto) 0.23 L Nucleated RBC % 0 Differential Comment SCANNED Diff Path Review Reviewed Anisocytosis 1+ Macrocytosis 1+ Ovalocytes RARE Schistocytes RARE Sodium 131 L Potassium 3.7 Chloride 99 Carbon Dioxide 26.0 Anion Gap 6 BUN 17 Creatinine 0.81 Estim Creat Clear Calc 80.11 Est GFR (MDRD) Af Amer 119 Est GFR (MDRD) Non-Af 98 BUN/Creatinine Ratio 20.9 H Glucose 160 H Calcium 7.9 L Magnesium 2.3 Total Bilirubin 0.90 AST 37 ALT 50 Alkaline Phosphatase 61 Total Protein 6.1 L Albumin 3.0 L Globulin 3.1 Albumin/Globulin Ratio 1.0 COVID-19 (KATLIN) POC Glucose 158 H 06/01/20 06/01/20 06/01/20 16:42 21:38 Unknown WBC RBC Hgb Hct MCV MCH MCHC RDW Std Deviation RDW Coeff of Jcarlos Plt Count MPV Immature Gran % (Auto) Neut % (Auto) Lymph % (Auto) [place] % (Auto) Eos % (Auto) Baso % (Auto) Absolute Neuts (auto) Absolute Lymphs (auto) Nucleated RBC % Differential Comment Diff Path Review Anisocytosis Macrocytosis Ovalocytes Schistocytes Sodium Potassium Chloride Carbon Dioxide Anion Gap BUN Creatinine Estim Creat Clear Calc Est GFR (MDRD) Af Amer Est GFR (MDRD) Non-Af BUN/Creatinine Ratio Glucose Calcium Magnesium Total Bilirubin AST ALT Alkaline Phosphatase Total Protein Albumin Globulin Albumin/Globulin Ratio COVID-19 (KATLIN) Not Detected POC Glucose 179 H 221 H 06/02/20 06/02/20 06/02/20 04:20 04:20 07:05 WBC 3.4 L RBC 2.65 L Hgb 9.0 L Hct 26.6 L MCV 100.4 H MCH 34.0 H MCHC 33.8 RDW Std Deviation 82.1 H RDW Coeff of Jcarlos 22.4 H Plt Count 164 MPV 11.8 Immature Gran % (Auto) 0.900 Neut % (Auto) 77.0 H Lymph % (Auto) 13.1 L [place] % (Auto) 8.7 Eos % (Auto) 0.3 Baso % (Auto) 0.0 Absolute Neuts (auto) 2.7 Absolute Lymphs (auto) 0.45 L Nucleated RBC % 0 Differential Comment SCANNED Diff Path Review May foll Anisocytosis 1+ Macrocytosis 1+ Ovalocytes RARE Schistocytes Sodium 131 L Potassium 4.3 Chloride 99 Carbon Dioxide 27.0 Anion Gap 5 BUN 19 H Creatinine 0.75 Estim Creat Clear Calc 64.89 Est GFR (MDRD) Af Amer 130 Est GFR (MDRD) Non-Af 108 BUN/Creatinine Ratio 25.4 H Glucose 169 H Calcium 8.5 Magnesium Total Bilirubin 0.50 AST 46 H ALT 51 Alkaline Phosphatase 64 Total Protein 6.4 Albumin 3.0 L Globulin 3.4 Albumin/Globulin Ratio 0.9 COVID-19 (KATLIN) POC Glucose 152 H Microbiology 05/30/20 16:20 Urine Catheter - Catheter Urine Culture - Preliminary Gram negative tuan 05/30/20 16:00 Blood Culture (Wb) - Anticubital Left Blood Culture - Preliminary No growth in 48 hours. 05/30/20 15:45 Blood Culture (Wb) - Anticubital Right Blood Culture - Preliminary No growth in 48 hours. 05/31/20 05:27 Blood product unit Transfusion Reaction Gram Stain - Final Clinical Impression(s) from Imaging Studies Abdomen/Pelvis CT 06/01/20 09:46 IMPRESSION: Dilated renal pelves and calyces with nonspecific induration of the perinephric fat. Each kidney however enhances normally and the borders are well-defined. There is a simple right renal cyst which needs no specific follow-up. There is right-sided hydroureter with periureteral inflammatory stranding. No obstructing stone or stricture is noted. This could be explained either by nonradiopaque stone or recent passage of a stone. Small bowel ileus Induration of the subcutaneous fat consistent with anasarca Degenerative bony changes Delacruz catheter noted within the bladder Free-flowing bilateral pleural effusions and bibasilar atelectasis Electronically Signed: Vishnu Mckinney MD at 13:01 EDT , Service support , Medical Necessity - Tobacco Use Smoking Status: Former smoker Assessment/Plan All Active Problems Sepsis (Acute) Acute cystitis (Acute) RECOMMENDATIONS: 1. Increase activity as tolerated 2. Antibiotics per infectious disease 3. Discontinue Delacruz 4. Consider discontinuation of Decadron and COVID precautions 5. Possible discharge later today IMPRESSIONS: 1. Acute hypoxic respiratory failure Unclear etiology at this time. Patient did have hypoxia on presentation with bilateral infiltrates. Differential diagnosis would include COVID-19, congestive heart failure, atelectasis with hypoventilation and pulmonary embolism. Patient does have bronchiectasis, but does not have a focal infiltrate on chest x-ray or CT scan to suggest acute pneumonia. Patient was significant improvement over the last 24 hours and is now down to room air. Patient currently with no respiratory symptoms, but movement is relatively limited secondary to cognitive precautions. 2. Severe sepsis Exact etiology is unclear. Patient reportedly was treated for cystitis recently and this may be why there are no bacteria or white blood cells in the urine. Patient also has bronchiectasis, but has no focal infiltrates. COVID-19 is unlikely in my opinion. Patient does have chronic lower extremity edema on physical exam, but no signs of cellulitis that I can tell. Patient had fever resolved with systemic antibiotics. Do not believe Decadron is helpful and can be discontinued in my opinion. Patient does have recurrent constipation at baseline. CT of the abdomen is suggestive of urinary source with possible pyelonephritis given perinephric stranding. This would account for convalescence in less than 24 hours after systemic antibiotics. 3. Constipation/acute on chronic anemia/myelodysplastic syndrome/Waldenstrom macroglobulinemia Complicates care, management, recovery and prognosis. Aggressive bowel regimen has been ordered. Would hold on further transfusions. Inpatient E&M: 55547 [facility] Hosp L2
[2020-06-02] MEDS: guaiFENesin 1,200 MG Tablet 1200 MG PO (09:17)
[2020-06-02] MEDS: Calcium (Elemental) 500 MG Tablet PO (09:17)
[2020-06-02] MEDS: Pantoprazole Sodium 40 MG Tablet PO (09:17)
[2020-06-02] MEDS: Enoxaparin 30 MG/0.3 ML Syringe SC (09:17)
[2020-06-02] MEDS: Ceftriaxone 1 GM/50 ML BAG IV (09:21)
[2020-06-02] MEDS: Pyridoxine HCl 100 MG Tablet PO (09:40)
[2020-06-02] MEDS: dexAMETHasone 10 MG/ML Vial 6 MG IV (09:40)
[2020-06-02] MEDS: 0.9% Saline Lock 10 ML Syringe IV (09:43)
--- NOTE | 2020-06-02 10:21 | PCM.DC ---
- Discharge Diagnoses Current Active Problems: Current Active and Chronic Problems Sepsis (Acute) Acute cystitis (Acute) Reason(s) for Visit for Discharge Instructions: Fever, shortness of breath, dysuria You will use the following diet at home:: Cardiac Your food should be the consistency of: Regular Your liquids should be the consistency of: Regular/Thin Discharge Activity: Return to Normal Activity Additional Instructions: Continue to self isolate yourself at home for a total of 14 days from the start of your symptoms. Complete your antibiotics. Follow-up with your primary care doctor via [facility] in 1 to 2 weeks. Follow-up with your oncologist as scheduled. Allergies/Adverse Reactions: Allergies levofloxacin [From Levaquin] Allergy (Verified 05/30/20 15:12) Other WALKING AND PASSED OUT AND FELL INTO A WALL sulfamethoxazole [From Bactrim] Adverse Reaction (Verified 05/30/20 15:12) Other SORE THROAT trimethoprim [From Bactrim] Adverse Reaction (Verified 05/30/20 15:12) Other SORE THROAT Medications to take at Discharge [place]-3 Fatty Acids/Fish Oil [Fish Oil 1,000 mg Capsule] 1 each PO BID 05/22/17 Montelukast [Singulair] 10 mg PO QHS 08/24/18 Omeprazole [Prilosec] 40 mg PO DAILY 08/24/18 Pyridoxine HCl [Vitamin B-6] 100 mg PO BID 08/24/18 Gabapentin [Neurontin] 300 mg PO TID 10/29/19 Phenazopyridine HCl [Pyridium] 100 mg PO TID PRN #6 tab 05/28/20 Calcium Carbonate [Calcium] 500 mg PO DAILY 05/30/20 Cholecalciferol (Vitamin D3) [Vitamin D3] 2,000 unit PO DAILY 05/30/20 Cranberry 1,600 mg PO DAILY PRN PRN 05/30/20 Albuterol IH (ProAir) [Proair Hfa] 2 puff INHALATION Q4H PRN PRN 30 Days #1 inhaler 06/02/20 Cephalexin [Keflex] 500 mg PO Q8 7 Days #21 cap 06/02/20 Guaifenesin [Mucinex] 1,200 mg PO BID 7 Days #14 tab 06/02/20 The following prescriptions were given: Cephalexin [Keflex] 500 mg PO Q8 7 Days #21 cap [facility] Guaifenesin [Mucinex] 1,200 mg PO BID 7 Days #14 tab [facility]: [facility] Albuterol IH (ProAir) [Proair Hfa] 2 puff INHALATION Q4H PRN PRN 30 Days #1 inhaler PRN Reason: SOB &/OR WHEEZING [facility]: [facility] Primary Care Physician: Sunday Carter PA [Primary Care Provider] - Please follow up with your Primary Care Physician in: within 1-2 weeks Test Results: Test results from this visit will be discussed in further detail at your follow-up appointment, if applicable. Please Follow Up With: Renita Guzman MD When: as scheduled Proposed Discharge Date: 06/02/20
--- NOTE | 2020-06-02 10:23 | DS.PCM_ITS ---
Discharge Date and Diagnosis Date of Admission: 05/30/20 Date of Discharge: 06/02/20 - Primary Discharge Diagnosis Acute Problems: Active Problems Hypoxia Possible transfusion reaction Suspected COVID-19 infection Sepsis secondary to acute E. coli UTI/pyelonephritis - Secondary Discharge Diagnosis Chronic Problems: Chronic Problems Waldenstrom macroglobulinemia (Chronic) Myelodysplastic syndrome (Chronic) Hypertension (Chronic) Hospital Course and Treatment Imaging Results: Clinical Impression(s) from Imaging Studies Chest X-Ray 05/30/20 15:27 IMPRESSION: Left basilar atelectasis. Electronically Signed: Shaheed Streeter MD at 17:12 EDT Tel , Service support , Chest CTA 05/30/20 17:08 IMPRESSION: No pulmonary embolus. Diffuse interstitial pulmonary edema. Electronically Signed: Shaheed Streeter MD at 18:14 EDT Tel , Service support , Chest X-Ray 05/31/20 05:07 IMPRESSION: No acute cardiopulmonary disease. Electronically Signed: Natanael Tong MD at 6:42 EDT , Service support , Abdomen/Pelvis CT 06/01/20 09:46 IMPRESSION: Dilated renal pelves and calyces with nonspecific induration of the perinephric fat. Each kidney however enhances normally and the borders are well-defined. There is a simple right renal cyst which needs no specific follow-up. There is right-sided hydroureter with periureteral inflammatory stranding. No obstructing stone or stricture is noted. This could be explained either by nonradiopaque stone or recent passage of a stone. Small bowel ileus Induration of the subcutaneous fat consistent with anasarca Degenerative bony changes Delacruz catheter noted within the bladder Free-flowing bilateral pleural effusions and bibasilar atelectasis Electronically Signed: Vishnu Mckinney MD at 13:01 EDT , Service support , Intensive care Infectious disease Operations: None Procedures: 2-D Echocardiogram Summary of Care Provided: The patient is a 75 year old M with past medical history of myelodysplastic syndrome/lymphoma who came in with complaints of progressive dysuria. Patient was seen earlier on in the emergency department 2 days prior to admission and discharged on Keflex and Pyridium. His symptoms however worsened with associated chills and fever. He seemed to have chronic left leg swelling that was increased. His symptoms were associated with nonproductive cough and he denies shortness of breath. His oxygen saturation was 70% on room air. CT of the chest showed interstitial pulmonary edema. Chest work-up was indicated of acute cystitis. He was managed as sepsis secondary to acute cystitis when his respiratory rate was elevated more than 20, heart rate more than 90, his T-max in the emergency department was 104.3. Blood cultures were negative. Urine cultures grew E. coli, pansensitive. She reportedly was transfused in the outpatient 4 days prior to presentation. At that time, his hemoglobin was 8.5. His hemoglobin on admission was 8.4. 2 units of packed RBCs were ordered by the ED physician. Patient was also started on IV ceftriaxone. Reportedly became more short of breath while the RBC cells were being transfused. 40 mg of IV Lasix was taking. Transfusion labs were taken with negative results. Patient was managed momentarily on BiPAP. His respiratory status appeared to improve with the Lasix therapy. Patient's initial COVID-19 test was negative but he was still kept in enhanced contact isolation by infectious disease. During this hospital stay, he was managed on IV ceftriaxone. He was discharged on p.o. Keflex for 1 more week. Patient will follow-up with a factory lay out engineer for sleep apnea work-up Subjective: On the day of discharge, patient was examined. Denied any new complaints. He felt improved. Was noted to have nocturnal desaturation. He was kept on oxygen. Objective: Physical exam: General: Alert, Oriented x3, Cooperative, No apparent distress HEENT: Atraumatic, PERRLA, EOMI, Normocephalic Neck: Supple Lungs: Diminished Cardiovascular: Regular rate, Regular Rhythm, Normal S1, Normal S2, No murmurs Abdomen: Bowel Sounds Present, Soft, Non Tender, Non-Distended, No Hepato- splenomegaly Extremities: No edema Skin: No rashes Musculoskeletal: No Tenderness to Palpation of Joints or Extremities Lymphatic: No Cervical, Supraclavicular, or Inguinal Adenopathy Neurological: Cranial nerves II-XII grossly intact, Neuro grossly intact Psych/Mental Status: Normal Affect, Appropriate - Physical Exam Vitals/I&O's: Vital Signs Temp Pulse Resp BP Pulse Ox 97.7 F L 77 17 139/61 H 97 06/02/20 09:00 06/02/20 09:00 06/02/20 09:00 06/02/20 09:00 06/02/20 09:00 Oxygen Flow Rate (L/min) 2 Oxygen Delivery Method Room Air Weight: 84.5 kg Body Mass Index (BMI) 26.6 Intake and Output for Last 24 Hours 05/31/20 06/01/20 06/02/20 23:59 23:59 23:59 Intake Total 2349.5 / 2349.5 920 / 920 390 / 390 Output Total 2410 / 2410 5955 / 6105 1825 / 1825 Balance -60.5 / -60.5 -5035 / -5185 -1435 / -1435 Microbiology Past 72 Hours 05/30/20 16:20 Urine Catheter - Catheter Urine Culture - Final Escherichia coli 05/30/20 16:00 Blood Culture (Wb) - Anticubital Left Blood Culture - Preliminary No growth in 48 hours. 05/30/20 15:45 Blood Culture (Wb) - Anticubital Right Blood Culture - Prel iminary No growth in 48 hours. 05/31/20 05:27 Blood product unit Transfusion Reaction Gram Stain - Final Laboratory Results 06/01/20 03:40: Diff Path Review Reviewed 06/01/20 13:53: POC Glucose 158 H 06/01/20 16:42: POC Glucose 179 H 06/01/20 21:38: POC Glucose 221 H 06/02/20 04:20: WBC 3.4 L, RBC 2.65 L, Hgb 9.0 L, Hct 26.6 L, MCV 100.4 H, MCH 34.0 H, MCHC 33.8, RDW Std Deviation 82.1 H, RDW Coeff of Jcarlos 22.4 H, Plt Count 164, MPV 11.8, Immature Gran % (Auto) 0.900, Neut % (Auto) 77.0 H, Lymph % (Auto) 13.1 L, [place] % (Auto) 8.7, Eos % (Auto) 0.3, Baso % (Auto) 0.0, Absolute Neuts (auto) 2.7, Absolute Lymphs (auto) 0.45 L, Nucleated RBC % 0, Differential Comment SCANNED, Diff Path Review May foll, Anisocytosis 1+, Macrocytosis 1+, Ovalocytes RARE 06/02/20 04:20: Sodium 131 L, Potassium 4.3, Chloride 99, Carbon Dioxide 27.0, Anion Gap 5, BUN 19 H, Creatinine 0.75, Estim Creat Clear Calc 64.89, Est GFR (MDRD) Af Amer 130, Est GFR (MDRD) Non-Af 108, BUN/Creatinine Ratio 25.4 H, Glucose 169 H, Calcium 8.5, Total Bilirubin 0.50, AST 46 H, ALT 51, Alkaline Phosphatase 64, Total Protein 6.4, Albumin 3.0 L, Globulin 3.4, Albumin/Globulin Ratio 0.9 06/02/20 07:05: POC Glucose 152 H Current Medications Acetaminophen (Tylenol) 650 mg PO Q6H PRN PRN PRN Reason: Pain Score 1-10/Temp > 100.7 F Last Admin: 06/01/20 22:13 Dose: 650 mg Documented by: Albuterol Sulfate (Proair Hfa (Sp) Surgery/Vent Pts) 2 puff INHALATION Q4H PRN PRN PRN Reason: SOB &/OR WHEEZING Last Admin: 06/02/20 05:55 Dose: 2 puff Documented by: Calcium Carbonate (Os[facility]Yordan 500) [facility] Last Admin: 06/02/20 09:17 Dose: 500 mg Documented by: Cholecalciferol (Vitamin D (25mcg)) 2,000 unit PO DAILY [facility] Last Admin: 06/02/20 09:56 Dose: 2,000 unit Documented by: Dexamethasone Sodium Phosphate (Decadron) 6 mg IV Q24 [facility] Stop: 06/09/20 10:01 Last Admin: 06/02/20 09:40 Dose: 6 mg Documented by: Dextrose (D50w Syringe) 0 gm IV X1 PRN; Protocol PRN Reason: Hypoglycemia Enoxaparin Sodium (Lovenox) 30 mg SC BID [facility] Last Admin: 06/02/20 09:17 Dose: 30 mg Documented by: Gabapentin (Neurontin) 300 mg PO TID [facility] Last Admin: 06/02/20 05:46 Dose: 300 mg Documented by: Glucagon () 1 mg IM .X1 PRN PRN Reason: Hypoglycemia Guaifenesin (Mucinex) 1,200 mg PO BID [facility] Last Admin: 06/02/20 09:17 Dose: 1,200 mg Documented by: Ceftriaxone Sodium (Rocephin) 1 gm in 50 mls @ 100 mls/hr IV Q12 [facility] Last Infusion: 06/02/20 09:57 Dose: Infused Documented by: Sodium Chloride () 500 mls @ 15 mls/hr IV PRN PRN PRN Reason: Blood Transfusion Sodium Chloride () 250 mls @ 15 mls/hr IV .[id number] PRN PRN Reason: Saline Flush Last Infusion: 06/02/20 02:03 Dose: Infused Documented by: Insulin Human Lispro (Humalog Kwikpen (Bkc)) 0 unit SC ACHS [facility]; Protocol Last Admin: 06/02/20 07:16 Dose: 152 u Documented by: Montelukast Sodium (Singulair) 10 mg PO QHS [facility] Last Admin: 06/01/20 21:33 Dose: 10 mg Documented by: Ondansetron HCl (Zofran) 4 mg IV Q8H PRN PRN PRN Reason: NAUSEA/VOMITING Oxycodone HCl (Oxyir) 5 mg PO Q4H PRN PRN PRN Reason: Pain Score 6-10/10 Last Admin: 06/01/20 23:49 Dose: 5 mg Documented by: Pantoprazole Sodium (Protonix) 40 mg PO DAILY [facility] Last Admin: 06/02/20 09:17 Dose: 40 mg Documented by: Phenazopyridine HCl (Azo Standard) 95 mg PO TID PRN PRN PRN Reason: DISURIA Last Admin: 06/02/20 07:16 Dose: 95 mg Documented by: Polyethylene Glycol (Miralax) 17 gm PO BID [facility] Last Admin: 06/02/20 09:20 Dose: Not Given Documented by: Pyridoxine HCl (Vitamin B-6) 100 mg PO BID [facility] Last Admin: 06/02/20 09:40 Dose: 100 mg Documented by: Senna/Docusate Sodium (Senokot-S, Bertha-Colace) 1 tablet PO DAILY PRN PRN PRN Reason: CONSTIPATION Sodium Chloride () 10 - 40 ml IV UD PRN PRN Reason: SALINE FLUSH Last Admin: 06/02/20 09:43 Dose: 10 ml Documented by: Discharge Diet: No Restrictions Discharge Activity: Return to Normal Activity Home Medications: Medications to take at Discharge [place]-3 Fatty Acids/Fish Oil [Fish Oil 1,000 mg Capsule] 1 each PO BID 05/22/17 Montelukast [Singulair] 10 mg PO QHS 08/24/18 Omeprazole [Prilosec] 40 mg PO DAILY 08/24/18 Pyridoxine HCl [Vitamin B-6] 100 mg PO BID 08/24/18 Gabapentin [Neurontin] 300 mg PO TID 10/29/19 Phenazopyridine HCl [Pyridium] 100 mg PO TID PRN #6 tab 05/28/20 Calcium Carbonate [Calcium] 500 mg PO DAILY 05/30/20 Cholecalciferol (Vitamin D3) [Vitamin D3] 2,000 unit PO DAILY 05/30/20 Cranberry 1,600 mg PO DAILY PRN PRN 05/30/20 Albuterol IH (ProAir) [Proair Hfa] 2 puff INHALATION Q4H PRN PRN 30 Days #1 inhaler 06/02/20 Cephalexin [Keflex] 500 mg PO Q8 7 Days #21 cap 06/02/20 Guaifenesin [Mucinex] 1,200 mg PO BID 7 Days #14 tab 06/02/20 Following Prescrptions Were Given to Patient: Cephalexin [Keflex] 500 mg PO Q8 7 Days #21 cap Transmission Status: Received by [facility] Guaifenesin [Mucinex] 1,200 mg PO BID 7 Days #14 tab Transmission Status: Received by [facility] Albuterol IH (ProAir) [Proair Hfa] 2 puff INHALATION Q4H PRN PRN 30 Days #1 inhaler PRN Reason: SOB &/OR WHEEZING Transmission Status: Received by [facility] Primary Care Physician: Sunday Carter PA [Primary Care Provider] - Please follow up with your Primary Care Physician in: within 1-2 weeks Please Follow Up With: Renita Guzman MD When: as scheduled Disposition: Home Minutes spent on discharge:: 40 Patient Condition:: Stable Medical Necessity - Tobacco Use Smoking Status: Former smoker Tobacco Use: Non-smoker Meaningful Use Info Meaningful Use Diagnoses (Choose all that apply): None applicable Inpatient E&M: 99059 Disch Hosp
[2020-06-02 12:14] LABS: Pathologist Review Reviewed
[2020-06-02 12:35] LABS: Bedside Glucose 205 mg/dL (70-110)
== END 2020-06-02 13:30 | disposition home or self-care (01) | DRG 871 ==
LOC: ED 19:14 → ICU 19:47
PROVIDERS: Internal Medicine Critical Care Medicine; Admitting Provider Hospitalist; Emergency Provider Emergency Medicine; PCP Physician Assistant; Visit Provider Internal Medicine
DX: A41.9 Sepsis, unspecified organism (principal); N10 Acute pyelonephritis; J81.1 Chronic pulmonary edema; B96.20 Unspecified Escherichia coli [E. coli] as the cause of diseases classified elsewhere; J96.01 Acute respiratory failure with hypoxia; T80.89XA Other complications following infusion, transfusion and therapeutic injection, initial encounter; I95.9 Hypotension, unspecified; Y84.8 Other medical procedures as the cause of abnormal reaction of the patient, or of later complication, without mention of misadventure at the time of the procedure; Y92.239 Unspecified place in hospital as the place of occurrence of the external cause; J47.9 Bronchiectasis, uncomplicated; D46.9 Myelodysplastic syndrome, unspecified; C88.0 Waldenstrom macroglobulinemia; J06.9 Acute upper respiratory infection, unspecified; K59.00 Constipation, unspecified; M79.89 Other specified soft tissue disorders; I10 Essential (primary) hypertension; J45.909 Unspecified asthma, uncomplicated; Z79.899 Other long term (current) drug therapy; Z85.72 Personal history of non-Hodgkin lymphomas; Z87.891 Personal history of nicotine dependence
CPT/HCPCS: 71045; 71275; 74177; 80053; 81001; 82728; 82962; 83605; 83615; 83735; 83880; 84145; 84478; 84484; 85025; 85379; 85384; 85610; 85730; 86140; 86850; 86880; 86900; 86901; 86920; 86922; 87040; 87070; 87077; 87086; 87088; 87186; 87205; 87635; 93005; 93306; 94002; 97162; 97166; 99251; 99283; 99285; G2023; J7030; J7050; P9016; Q9967; A4216; G0463; J1940; J2405; U0003

== ENCOUNTER 2020-06-05 18:24 | Emergency (ER) | payer MEDICARE, SELFPAY ==
[2020-05-30 21:09] VITALS: BMI 26.6
[2020-06-05 18:26] VITALS: BP 155/77; PULSE 66; RESP 16; TEMP 36.8; O2SAT 96; BMI 27.1
[2020-06-05 21:39] VITALS: BP 154/71; PULSE 67; RESP 20; TEMP 36.8; O2SAT 95
--- NOTE | 2020-06-05 21:56 | EKG12_ITS ---
Test Reason : LOWER EXTREMITY Blood Pressure : / mmHG Vent. Rate : 065 BPM Atrial Rate : 065 BPM P-R Int : 168 ms QRS Dur : 088 ms QT Int : 380 ms P-R-T Axes : 059 018 035 degrees QTc Int : 395 ms Normal sinus rhythm Possible Left atrial enlargement Borderline ECG Confirmed by BARRERA DAWSON, GLYNN ([id number]), editorial director DOROTEO VALLADARES ([id number]) on 06/07/2020 12:41:41 PM Referred By: CRYSTAL Confirmed By:GLYNN RUST MD
--- NOTE | 2020-06-05 22:04 | US_ITS ---
STUDY: VENOUS DOPPLER ULTRASOUND - BILATERAL LOWER EXTREMITIES REASON FOR EXAM: Male, 75 years old. BILAT SWELLING ( SINCE STAY IN ICU) X 4 DAYS TECHNIQUE: Ultrasound evaluation of the deep vein system to include daly-scale imaging and compression was performed. Daly-scale imaging and Doppler sonographic evaluation, including duplex spectral analysis and qualitative color flow sonography, was performed. COMPARISON: None. FINDINGS: RIGHT LEG Common Femoral Vein: Normal compression, spontaneity and augmentation. Normal color Doppler. Common Femoral Vein/Greater Saphenous Junction: Normal compression, spontaneity and augmentation. Normal color Doppler. Femoral Proximal: Normal compression, spontaneity and augmentation. Normal color Doppler. Femoral Middle: Normal compression, spontaneity and augmentation. Normal color Doppler. Femoral Distal: Normal compression, spontaneity and augmentation. Normal color Doppler. Popliteal Vein: Normal compression, spontaneity and augmentation. Normal color Doppler. Posterior Tibial Vein: Normal compression, spontaneity and augmentation. Normal color Doppler. Peroneal Vein: Normal compression, spontaneity and augmentation. Normal color Doppler. LEFT LEG Common Femoral Vein: Normal compression, spontaneity and augmentation. Normal color Doppler. Common Femoral Vein/Greater Saphenous Junction: Normal compression, spontaneity and augmentation. Normal color Doppler. Femoral Proximal: Normal compression, spontaneity and augmentation. Normal color Doppler. Femoral Middle: Normal compression, spontaneity and augmentation. Normal color Doppler. Femoral Distal: Normal compression, spontaneity and augmentation. Normal color Doppler. Popliteal Vein: Normal compression, spontaneity and augmentation. Normal color Doppler. Posterior Tibial Vein: Normal compression, spontaneity and augmentation. Normal color Doppler. Peroneal Vein: Normal compression, spontaneity and augmentation. Normal color Doppler. US/Venous Duplex Imag/Jasvir Extrem IMPRESSION: No demonstrated deep venous fibrosis of the bilateral lower extremities. Electronically Signed: Clyde Cordero MD at 23:32 EDT , Service support ,
--- NOTE | 2020-06-05 22:14 | RAD_ITS ---
STUDY: X-RAY CHEST REASON FOR EXAM: Male, 75 years old. Previously discharged on Friday from ICU with sepsis. Swelling in legs since then. TECHNIQUE: Single AP portable view of the chest. COMPARISON: May 31 2020 FINDINGS: There are interstitial fibrotic changes of the lungs. The lungs are hyperinflated. No visualized consolidation. Small bilateral pleural effusions are present. Mild interstitial thickening and edema is also present bilaterally. Normal heart size. Stable osseous structures. RAD/Chest 1 View (Portable) IMPRESSION: Mild interstitial edema and small bilateral pleural effusions Electronically Signed: Clyde Cordero MD at 22:35 EDT , Service support ,
[2020-06-05 22:32] LABS: Absolute Lymphocyte Count 1.11 X10^3/uL (0.83-4.51); Absolute Neutrophil Count 5.1 X10^3/uL (2.0-7.7); Basophil# 0.03 X10^3/uL; Basophil% 0.4 % (0-1); Eosinophils% 2.8 % (0-5); Hematocrit 32.9 % (40-54); Hemoglobin 10.7 g/dL (13.0-16.5); Lymphocyte # 1.11 X10^3/ul (4.0); Lymphocyte % 15.4 % (19-41); Mean Corp Hgb Conc 32.5 g/dL (32-36); Mean Corpuscular Volume 104.4 fL (80-94); Mean Platelet Vol. 11.5 fl (6.2-12.0); Monocyte# 0.43 X10^3/uL; Monocyte% 5.9 % (0-10); NRBC Flagged by Analyzer 0 % (0-5); Neutrophil # 5.11 X10^3/uL (2.7-7.7); Neutrophil % 70.7 % (47-70); POSITIVE MORPHOLOGY YES; Platelet Count 306 K/mm3 (150-450); RBC Distribution Width CV 22.9 % (11.6-14.6); RBC Distribution Width SD 87.3 fl (35.1-43.9); Red Blood Count 3.15 M/mm3 (4.6-6.2); White Blood Count 7.2 K/mm3 (4.4-11.0)
[2020-06-05 23:05] LABS: Differential Indicated SCAN CRITERIA MET
[2020-06-05 23:14] LABS: ALB/GLOB Ratio 1.2 RATIO (0.9-2.4); AST(SGOT) 48 U/L (15-37); Alanine Aminotransfer ALT/SGPT 106 U/L (16-61); Albumin, Serum 3.9 g/dL (3.2-5.0); Alkaline Phosphatase 83 U/L (45-117); Anion Gap 2 (5-15); BUN 10 mg/dL (7-18); BUN/Creat Ratio 12.9 RATIO (10-20); Chloride 105 mmol/L (98-107); Creatinine, Serum 0.78 mg/dL (0.70-1.30); EST Glomerular Filtration Rate 103 mL/min (>60); Est Glom Filt Rate - Afr Amer 125 mL/min (>60); Estimated Creatinine Clearance 64.89 ml/min; Globulin 3.3 g/dL (2.2-4.2); Glucose 111 mg/dL (74-106); Potassium 4.2 mmol/L (3.5-5.1); Protein, Total 7.2 g/dL (6.4-8.2); Sodium Level 138 mmol/L (136-145)
[2020-06-05 23:18] LABS: BNP,B-Type NATRIURETIC PEPTIDE 145.5 pg/mL (0-100)
[2020-06-05 23:37] LABS: Mucous, Urine 0 SEEN /hpf (<or=2+); Red Blood Cells-Urine 0 SEEN /hpf (0-5); Squamous Epithelial Cells - UA 0 SEEN /hpf (0-5); White Blood Cells 0 SEEN /hpf (0-5)
[2020-06-05 23:38] VITALS: BP 155/74; PULSE 61; RESP 17; TEMP 36.7; O2SAT 91
[2020-06-05 23:40] LABS: Color, Urine Yellow (Yellow); Glucose, Dipstick Normal (Normal); Ketone-Dipstick Negative (Negative); Leukocyte Esterase-Dipstick Negative /ul (Negative); Nitrite-Dipstick Positive (Negative); Occult Blood-Urine Negative /ul (Negative); Protein-Dipstick Negative (Negative); Urine Clarity Clear (Clear); Urine Urobilinogen 4 mg/dl (Normal)
[2020-06-05] MEDS: Furosemide 20 MG/2 ML VIAL IV (23:41)
[2020-06-05 23:42] LABS: Urine Bilirubin Dipstick 1 mg/dL (Negative)
[2020-06-05 23:56] LABS: Bacteria RARE /hpf (None Seen)
--- NOTE | 2020-06-06 00:19 | ED.VISSUMM ---
- ER Visit Summary Date of Service: 06/06/20 Chief Complaint: Lower extremity swelling History of Present Illness: The patient is a 75 M who presents with lower extremity swelling that has been getting worse over the past few days. Patient was recently admitted for sepsis and urinary tract infection. Patient states that both legs have gotten swollen since he was discharged. Patient states that the left is worse than the right. Patient denies any fevers or chills. Patient denies any paresthesias or weakness. Patient still admits to some dysuria. Patient denies any shortness of breath but admits to a slight cough. Physical Examination: Vital signs are stable. Patient is afebrile. Patient is in no acute distress. Oral mucosa is pink and moist. Neck is supple. Trachea is midline. There is no JVD. Heart was regular rate and rhythm. Lungs are diminished in the bases bilaterally. Abdomen is soft. Bowel sounds are normal. There is no tenderness. Cranial nerves II through XII are intact. There are no focal motor or sensory deficits. Extremities are intact. There is some pitting of edema of the lower extremities bilaterally, slightly worse on the left. Test Results: EKG showed normal sinus rhythm with a rate of 65. There are no acute ST or T wave changes. CBC was within normal limits. Comprehensive metabolic profile was within normal limits. Urinalysis showed positive nitrates but no other evidence of urinary tract infection. Troponin was normal. BNP was slightly elevated at 145.5. Chest x-ray was obtained. There is some mild interstitial edema but no acute cardiopulmonary process. Venous duplex of the lower extremities was obtained. There is no evidence of DVT. Emergency Department Course and Treatment: Patient was given a dose of Lasix here. Patient was feeling better on reevaluation. Patient was instructed to continue his antibiotic as prescribed until gone. Patient was instructed to follow-up with his primary care physician in 5 to 7 days. Patient and family understood and were agreeable with the plan. All questions were answered. Disposition: Discharge home Impression: Peripheral edema This note was generated with [employer] dictation software. It may contain incorrect words, spelling, and punctuation that were not noted in review of the chart prior to signing ED Disposition - Plan for ED Patient: Disposition: Home or Assisted Living Diagnosis: Peripheral edema Instructions: ED Lymphedema Referrals: Sunday Carter PA [Primary Care Provider] - 3-5 Days
[2020-06-06 00:30] VITALS: BP 157/80; PULSE 65; RESP 19; O2SAT 98
== END 2020-06-06 00:42 | disposition home or self-care (01) ==
PROVIDERS: Emergency Provider Emergency Medicine; PCP Physician Assistant
DX: R60.0 Localized edema (principal); R30.0 Dysuria; R05 Cough; D46.9 Myelodysplastic syndrome, unspecified; K21.9 Gastro-esophageal reflux disease without esophagitis; Z85.72 Personal history of non-Hodgkin lymphomas; Z87.440 Personal history of urinary (tract) infections; Z87.891 Personal history of nicotine dependence; Z79.899 Other long term (current) drug therapy
CPT/HCPCS: 71045; 80053; 81001; 83880; 84484; 85025; 93005; 93970; 99283; A4216; J1940

== ENCOUNTER → 2020-06-30 08:57 | Outpatient (CLI) | payer MEDICARE, SELFPAY ==
[2020-06-05 18:26] VITALS: BMI 27.1
[2020-06-30] VITALS (7 sets, daily range): BP systolic 122–148; BP diastolic 57–66; PULSE 63–80; RESP 16; TEMP 36–37; O2SAT 97–100; BMI 23.5
[2020-06-30] MEDS: 0.9% NaCl Peripheral Flush Adult/Peds IV (09:13)
[2020-06-30] MEDS: Furosemide 20 MG/2 ML VIAL IV (12:05)
== END ==
PROVIDERS: PCP Physician Assistant; Referring Provider Internal Medicine Hematology & Oncology; Visit Provider Internal Medicine Hematology & Oncology
DX: D46.20 Refractory anemia with excess of blasts, unspecified (principal)
CPT/HCPCS: 36430; 86850; 86900; 86901; 86920; 86922; J7040; P9016; A4216; J1940

== ENCOUNTER → 2020-07-28 10:10 | Outpatient (CLI) | payer MEDICARE, SELFPAY ==
[2020-06-30 09:04] VITALS: BMI 23.5
[2020-07-28 10:24] VITALS: BP 137/50; PULSE 75; RESP 16; TEMP 37.1; O2SAT 97; BMI 24.0
[2020-07-28] MEDS: 0.9% NaCl Peripheral Flush Adult/Peds IV ×2 (10:32→10:42)
[2020-07-28 11:07] VITALS: BP 123/50; PULSE 63; RESP 16; TEMP 36.8; O2SAT 98
[2020-07-28 12:07] VITALS: BP 109/58; PULSE 61; RESP 16; TEMP 36.9
[2020-07-28 13:07] VITALS: BP 127/49; PULSE 65; RESP 16; TEMP 37.1
[2020-07-28] MEDS: Furosemide 20 MG/2 ML VIAL IV (13:16)
== END ==
PROVIDERS: PCP Physician Assistant; Referring Provider Internal Medicine Hematology & Oncology; Visit Provider Internal Medicine Hematology & Oncology
DX: D46.20 Refractory anemia with excess of blasts, unspecified (principal)
CPT/HCPCS: 36430; 86850; 86900; 86901; 86920; 86922; J7040; P9016; A4216; J1940

== ENCOUNTER → 2020-08-24 08:32 | Outpatient (CLI) | payer MEDICARE, SELFPAY ==
[2020-07-28 10:24] VITALS: BMI 24.0
[2020-08-24 08:39] VITALS: BP 150/63; PULSE 74; RESP 18; TEMP 36.4; O2SAT 99; BMI 24.3
[2020-08-24] MEDS: 0.9% NaCl Peripheral Flush Adult/Peds IV ×2 (08:58→11:30)
[2020-08-24 09:11] VITALS: BP 150/63; PULSE 74; RESP 16; TEMP 36.4; O2SAT 98
[2020-08-24 09:26] VITALS: BP 133/64; PULSE 69; RESP 18; TEMP 36.6; O2SAT 97
[2020-08-24 10:26] VITALS: BP 146/63; PULSE 68; RESP 16; TEMP 36.2; O2SAT 99
[2020-08-24 10:55] VITALS: BP 129/57; PULSE 62; RESP 16; TEMP 36.5; O2SAT 96
[2020-08-24] MEDS: Furosemide 20 MG/2 ML VIAL IV (11:30)
== END ==
PROVIDERS: PCP Physician Assistant; Referring Provider Internal Medicine Hematology & Oncology; Visit Provider Internal Medicine Hematology & Oncology
DX: D46.20 Refractory anemia with excess of blasts, unspecified (principal)
CPT/HCPCS: 36430; 86850; 86900; 86901; 86920; 86922; J7040; P9016; A4216; J1940

== ENCOUNTER → 2020-09-22 10:23 | Outpatient (CLI) | payer MEDICARE, SELFPAY ==
[2020-08-24 08:39] VITALS: BMI 24.3
[2020-09-22] VITALS (8 sets, daily range): BP systolic 126–144; BP diastolic 47–78; PULSE 67–96; RESP 16; TEMP 36.3–36.8; O2SAT 96–99; BMI 24.3
[2020-09-22] MEDS: 0.9% NaCl Peripheral Flush Adult/Peds IV (11:15)
[2020-09-22] MEDS: Furosemide 20 MG/2 ML VIAL IV (14:35)
== END ==
PROVIDERS: PCP Physician Assistant; Referring Provider Internal Medicine Hematology & Oncology; Visit Provider Internal Medicine Hematology & Oncology
DX: D46.20 Refractory anemia with excess of blasts, unspecified (principal)
CPT/HCPCS: 36430; 86850; 86900; 86901; 86920; 86922; J7040; P9016; A4216; J1940

== ENCOUNTER → 2020-10-20 09:51 | Outpatient (CLI) | payer MEDICARE, SELFPAY ==
[2020-09-22 10:34] VITALS: BMI 24.3
[2020-10-20 10:00] VITALS: BP 129/57; PULSE 74; RESP 16; TEMP 35.7; O2SAT 100; BMI 24.3
[2020-10-20 10:25] VITALS: BP 129/57; PULSE 74; RESP 16; TEMP 36; O2SAT 100
[2020-10-20] MEDS: 0.9% NaCl Peripheral Flush Adult/Peds IV (10:35)
[2020-10-20 10:40] VITALS: BP 127/46; PULSE 68; RESP 16; TEMP 35.8; O2SAT 98
[2020-10-20 11:40] VITALS: BP 114/49; PULSE 65; RESP 16; TEMP 36.2; O2SAT 98
[2020-10-20 12:40] VITALS: BP 131/64; PULSE 66; RESP 16; TEMP 36.1; O2SAT 99
[2020-10-20] MEDS: Furosemide 20 MG/2 ML VIAL IV (13:29)
== END ==
PROVIDERS: PCP Physician Assistant; Visit Provider Internal Medicine Hematology & Oncology
DX: D46.20 Refractory anemia with excess of blasts, unspecified (principal)
CPT/HCPCS: 36430; 86850; 86900; 86901; 86920; 86922; J7040; P9016; A4216; J1940

== ENCOUNTER → 2020-11-17 09:48 | Outpatient (CLI) | payer MEDICARE, SELFPAY ==
[2020-10-20 10:00] VITALS: BMI 24.3
[2020-11-17] VITALS (8 sets, daily range): BP systolic 127–142; BP diastolic 57–69; PULSE 67–78; RESP 16; TEMP 36.3–36.6; O2SAT 98–99; BMI 24.3
[2020-11-17] MEDS: 0.9% NaCl Peripheral Flush Adult/Peds IV (10:18)
[2020-11-17] MEDS: Furosemide 20 MG/2 ML VIAL IV (12:35)
== END ==
PROVIDERS: PCP Physician Assistant; Referring Provider Internal Medicine Hematology & Oncology; Visit Provider Internal Medicine Hematology & Oncology
DX: D46.20 Refractory anemia with excess of blasts, unspecified (principal)
CPT/HCPCS: 36430; 86850; 86900; 86901; 86920; 86922; J7040; P9016; A4216; J1940

== ENCOUNTER → 2020-12-18 10:54 | Outpatient (CLI) | payer MEDICARE, SELFPAY ==
[2020-11-17 10:05] VITALS: BMI 24.3
[2020-12-18 11:20] VITALS: BP 168/53; PULSE 78; RESP 16; TEMP 36.3; O2SAT 100; BMI 26.1
[2020-12-18] MEDS: 0.9% NaCl Peripheral Flush Adult/Peds IV (11:20)
[2020-12-18 11:42] VITALS: BP 132/49; PULSE 65; RESP 16; TEMP 36.6; O2SAT 98
[2020-12-18 12:42] VITALS: BP 128/52; PULSE 68; RESP 16; TEMP 36.6; O2SAT 100
[2020-12-18 13:30] VITALS: BP 146/52; PULSE 76; RESP 16; TEMP 36.6; O2SAT 100
[2020-12-18] MEDS: Furosemide 20 MG/2 ML VIAL IV (13:47)
== END ==
PROVIDERS: PCP Physician Assistant; Referring Provider Internal Medicine Hematology & Oncology; Visit Provider Internal Medicine Hematology & Oncology
DX: D46.20 Refractory anemia with excess of blasts, unspecified (principal)
CPT/HCPCS: 36430; 86850; 86900; 86901; 86920; 86922; J7040; P9016; A4216; J1940

== ENCOUNTER → 2021-01-17 09:04 | Outpatient (CLI) | payer MEDICARE, SELFPAY ==
[2020-12-18 11:20] VITALS: BMI 26.1
[2021-01-17] VITALS (7 sets, daily range): BP systolic 126–141; BP diastolic 45–72; PULSE 64–80; RESP 16; TEMP 36.3–36.8; O2SAT 98–100; BMI 25.1
[2021-01-17] MEDS: 0.9% NaCl Peripheral Flush Adult/Peds IV (09:30)
[2021-01-17] MEDS: Furosemide 20 MG/2 ML VIAL IV (12:04)
== END ==
PROVIDERS: PCP Physician Assistant; Referring Provider Internal Medicine Hematology & Oncology; Visit Provider Internal Medicine Hematology & Oncology
DX: D46.20 Refractory anemia with excess of blasts, unspecified (principal)
CPT/HCPCS: 36430; 86644; 86850; 86900; 86901; 86920; 86922; J7040; P9016; A4216; J1940

== ENCOUNTER → 2021-02-16 08:47 | Outpatient (CLI) | payer MEDICARE, SELFPAY ==
[2021-01-17 09:31] VITALS: BMI 25.1
[2021-02-16] VITALS (7 sets, daily range): BP systolic 130–153; BP diastolic 55–84; PULSE 64–88; RESP 16; TEMP 36.3–36.6; O2SAT 93–98; BMI 25.5
[2021-02-16] MEDS: 0.9% NaCl Peripheral Flush Adult/Peds IV (08:56)
[2021-02-16] MEDS: Furosemide 20 MG/2 ML VIAL IV (11:50)
== END ==
PROVIDERS: PCP Physician Assistant; Referring Provider Internal Medicine Hematology & Oncology; Visit Provider Internal Medicine Hematology & Oncology
DX: D46.20 Refractory anemia with excess of blasts, unspecified (principal)
CPT/HCPCS: 36430; 86850; 86900; 86901; 86920; 86922; J7040; P9016; A4216; J1940

== ENCOUNTER → 2021-03-16 09:52 | Outpatient (CLI) | payer MEDICARE, SELFPAY ==
[2021-02-16 08:57] VITALS: BMI 25.5
[2021-03-16 09:58] VITALS: BP 157/55; PULSE 86; RESP 16; TEMP 36.2; O2SAT 99; BMI 25.1
[2021-03-16] MEDS: 0.9% NaCl Peripheral Flush Adult/Peds IV (10:18)
[2021-03-16 10:44] VITALS: BP 133/49; PULSE 70; RESP 16; TEMP 36.4; O2SAT 96
[2021-03-16 11:44] VITALS: BP 133/44; PULSE 68; RESP 16; TEMP 36.4; O2SAT 100
[2021-03-16 12:50] VITALS: BP 147/51; PULSE 65; RESP 16; TEMP 36.4; O2SAT 97
[2021-03-16] MEDS: Furosemide 20 MG/2 ML VIAL IV (13:23)
== END ==
PROVIDERS: PCP Physician Assistant; Referring Provider Internal Medicine Hematology & Oncology; Visit Provider Internal Medicine Hematology & Oncology
DX: D46.20 Refractory anemia with excess of blasts, unspecified (principal)
CPT/HCPCS: 36430; 86850; 86900; 86901; 86920; 86922; J7040; P9016; A4216; J1940

== ENCOUNTER → 2021-04-13 10:20 | Outpatient (CLI) | payer MEDICARE, SELFPAY ==
[2021-03-16 09:58] VITALS: BMI 25.1
[2021-04-13] MEDS: 0.9% NaCl Peripheral Flush Adult/Peds IV (10:38)
[2021-04-13 10:42] VITALS: BP 156/55; PULSE 80; RESP 16; TEMP 35.9; O2SAT 100; BMI 25.1
[2021-04-13 11:12] VITALS: BP 128/45; PULSE 67; RESP 16; TEMP 36.1; O2SAT 96
[2021-04-13 12:07] VITALS: BP 132/52; PULSE 64; RESP 16; TEMP 36; O2SAT 98
[2021-04-13 13:05] VITALS: BP 135/49; PULSE 67; RESP 16; TEMP 36.2; O2SAT 97
[2021-04-13] MEDS: Furosemide 20 MG/2 ML VIAL IV (13:05)
== END ==
PROVIDERS: PCP Physician Assistant; Referring Provider Internal Medicine Hematology & Oncology; Visit Provider Internal Medicine Hematology & Oncology
DX: D46.9 Myelodysplastic syndrome, unspecified (principal)
CPT/HCPCS: 36430; 86850; 86900; 86901; 86920; 86922; J7040; J7050; P9040; A4216; J1940

== ENCOUNTER → 2021-05-04 08:46 | Outpatient (CLI) | payer MEDICARE, SELFPAY ==
[2021-04-13 10:42] VITALS: BMI 25.1
[2021-05-04] VITALS (7 sets, daily range): BP systolic 129–146; BP diastolic 55–65; PULSE 63–71; RESP 16; TEMP 36.3–36.8; O2SAT 97–99; BMI 25.1
[2021-05-04] MEDS: 0.9% NaCl Peripheral Flush Adult/Peds IV (09:09)
[2021-05-04] MEDS: Furosemide 20 MG/2 ML VIAL IV (11:43)
== END ==
PROVIDERS: PCP Physician Assistant; Referring Provider Internal Medicine Hematology & Oncology; Visit Provider Internal Medicine Hematology & Oncology
DX: D46.20 Refractory anemia with excess of blasts, unspecified (principal)
CPT/HCPCS: 36430; 86850; 86900; 86901; 86920; 86922; J7040; P9016; A4216; J1940

== ENCOUNTER → 2021-05-25 08:28 | Outpatient (CLI) | payer MEDICARE, SELFPAY ==
[2021-05-04 08:58] VITALS: BMI 25.1
[2021-05-25] VITALS (7 sets, daily range): BP systolic 131–147; BP diastolic 51–59; PULSE 59–77; RESP 16; TEMP 36.2–36.8; O2SAT 93–99; BMI 25.1
[2021-05-25] MEDS: 0.9% NaCl Peripheral Flush Adult/Peds IV (08:40)
[2021-05-25] MEDS: Furosemide 20 MG/2 ML VIAL IV (11:27)
== END ==
PROVIDERS: PCP Physician Assistant; Referring Provider Internal Medicine Hematology & Oncology; Visit Provider Internal Medicine Hematology & Oncology
DX: D46.20 Refractory anemia with excess of blasts, unspecified (principal)
CPT/HCPCS: 36430; 86850; 86900; 86901; 86920; 86922; J7040; P9016; A4216; J1940

== ENCOUNTER → 2021-06-22 08:28 | Outpatient (CLI) | payer MEDICARE, SELFPAY ==
[2021-05-25 08:38] VITALS: BMI 25.1
[2021-06-22 08:36] VITALS: BP 141/48; PULSE 81; RESP 16; TEMP 36.2; O2SAT 99; BMI 25.1
[2021-06-22 09:15] VITALS: BP 113/50; PULSE 63; RESP 16; TEMP 36.6; O2SAT 98
[2021-06-22 10:15] VITALS: BP 122/52; PULSE 65; RESP 16; TEMP 36.6; O2SAT 96
[2021-06-22 10:59] VITALS: BP 127/57; PULSE 63; RESP 16; TEMP 36.1; O2SAT 100
[2021-06-22] MEDS: Furosemide 20 MG/2 ML VIAL IV (11:40)
[2021-06-22 11:45] VITALS: BP 131/55; PULSE 64; RESP 16; TEMP 36.5; O2SAT 98
[2021-06-22 11:53] VITALS: BP 131/55; PULSE 64; RESP 16; TEMP 36.5; O2SAT 98
== END ==
PROVIDERS: PCP Physician Assistant; Referring Provider Internal Medicine Hematology & Oncology; Visit Provider Internal Medicine Hematology & Oncology
DX: D46.20 Refractory anemia with excess of blasts, unspecified (principal)
CPT/HCPCS: 36430; 86850; 86900; 86901; 86920; 86922; J7040; P9040; A4216; J1940

== ENCOUNTER → 2021-07-13 08:27 | Outpatient (CLI) | payer MEDICARE, SELFPAY ==
[2021-07-13] VITALS (8 sets, daily range): BP systolic 129–144; BP diastolic 53–65; PULSE 59–70; RESP 16; TEMP 35.8–36.3; O2SAT 99–100
[2021-07-13] MEDS: 0.9% NaCl Peripheral Flush Adult/Peds IV (09:00)
[2021-07-13] MEDS: Furosemide 20 MG/2 ML VIAL IV (11:45)
== END ==
PROVIDERS: PCP Physician Assistant; Referring Provider Internal Medicine Hematology & Oncology; Visit Provider Internal Medicine Hematology & Oncology
DX: D46.20 Refractory anemia with excess of blasts, unspecified (principal)
CPT/HCPCS: 36430; 86850; 86900; 86901; 86920; 86922; J7040; P9040; A4216; J1940

== ENCOUNTER → 2021-08-10 10:07 | Outpatient (CLI) | payer MEDICARE, SELFPAY ==
[2021-08-10 10:17] VITALS: BP 149/67; PULSE 79; RESP 16; TEMP 36.6; O2SAT 100
[2021-08-10 10:54] VITALS: BP 133/55; PULSE 69; RESP 16; TEMP 36.9
[2021-08-10 11:54] VITALS: BP 136/61; PULSE 67; RESP 16; TEMP 36.6; O2SAT 98
[2021-08-10] MEDS: Furosemide 20 MG/2 ML VIAL IV (12:39)
[2021-08-10 12:42] VITALS: BP 135/63; PULSE 71; RESP 16; TEMP 36.6; O2SAT 98
== END ==
PROVIDERS: PCP Physician Assistant; Referring Provider Internal Medicine Hematology & Oncology; Visit Provider Internal Medicine Hematology & Oncology
DX: D46.20 Refractory anemia with excess of blasts, unspecified (principal)
CPT/HCPCS: 36430; 86850; 86900; 86901; 86920; 86922; J7040; P9040; A4216; J1940

== ENCOUNTER → 2021-08-31 07:57 | Outpatient (CLI) | payer MEDICARE, SELFPAY ==
[2021-08-31] VITALS (7 sets, daily range): BP systolic 127–156; BP diastolic 47–55; PULSE 58–81; RESP 16; TEMP 35.8–36.2; O2SAT 96–100
[2021-08-31] MEDS: 0.9% NaCl Peripheral Flush Adult/Peds IV (08:16)
[2021-08-31] MEDS: Furosemide 20 MG/2 ML VIAL IV (11:01)
== END ==
PROVIDERS: PCP Physician Assistant; Visit Provider Internal Medicine Hematology & Oncology
DX: D46.20 Refractory anemia with excess of blasts, unspecified (principal)
CPT/HCPCS: 36430; 86850; 86900; 86901; 86920; 86922; J7040; P9016; A4216; J1940

== ENCOUNTER → 2021-09-14 10:39 | Outpatient (CLI) | payer MEDICARE, SELFPAY ==
[2021-09-14 11:29] VITALS: BP 131/54; PULSE 63; RESP 16; TEMP 36.3; O2SAT 98; BMI 24.2
[2021-09-14] MEDS: 0.9% NaCl Peripheral Flush Adult/Peds IV (11:34)
[2021-09-14 11:53] VITALS: BP 140/56; PULSE 63; RESP 16; TEMP 36.4; O2SAT 97
[2021-09-14 12:53] VITALS: BP 133/55; PULSE 69; RESP 16; TEMP 36.4; O2SAT 98
[2021-09-14 13:35] VITALS: BP 137/55; PULSE 70; RESP 16; TEMP 36.4; O2SAT 98
[2021-09-14] MEDS: Furosemide 20 MG/2 ML VIAL IV (13:50)
== END ==
PROVIDERS: PCP Physician Assistant; Referring Provider Internal Medicine Hematology & Oncology; Visit Provider Internal Medicine Hematology & Oncology
DX: D46.20 Refractory anemia with excess of blasts, unspecified (principal)
CPT/HCPCS: 36430; 86850; 86900; 86901; 86920; 86922; J7040; P9016; A4216; J1940

== ENCOUNTER → 2021-09-28 09:08 | Outpatient (CLI) | payer MEDICARE, SELFPAY ==
[2021-09-28 09:32] VITALS: BP 121/48; PULSE 65; RESP 16; TEMP 36.5; O2SAT 100
[2021-09-28 10:20] VITALS: BP 129/48; PULSE 60; RESP 16; TEMP 36.6
[2021-09-28 11:20] VITALS: BP 124/48; PULSE 68; RESP 16; TEMP 36.6; O2SAT 95
[2021-09-28] MEDS: Furosemide 20 MG/2 ML VIAL IV (12:18)
== END ==
PROVIDERS: PCP Physician Assistant; Referring Provider Internal Medicine Hematology & Oncology; Visit Provider Internal Medicine Hematology & Oncology
DX: D46.20 Refractory anemia with excess of blasts, unspecified (principal)
CPT/HCPCS: 36430; 86850; 86900; 86901; 86920; 86922; J7040; P9040; A4216; J1940

== ENCOUNTER → 2021-10-08 13:26 | Outpatient (CLI) | payer MEDICARE, SELFPAY ==
--- NOTE | 2021-10-08 13:37 | RAD_ITS ---
STUDY: X-RAY - LUMBAR SPINE REASON FOR EXAM: Male, 76 years old. Other intervertebral disc degeneration, lumbar region TECHNIQUE: 2 view(s) of the lumbar spine were obtained. COMPARISON: None FINDINGS: Normal lumbar lordosis. Mild dextroscoliosis centered at L3. There is a normal alignment of the vertebrae. Normal vertebral bodies and endplates. Normal disc space heights. Facet hypertrophy in the lower lumbar spine consistent with degenerative disc disease. The soft tissue structures are unremarkable. RAD/Lumbar Spine 2 or 3 Views IMPRESSION: Mild dextro scoliosis with degenerative disc disease. MRI would be useful. Electronically Signed: Garrett Coh MD at 8:23 EST Tel , Service support ,
== END ==
PROVIDERS: PCP Physician Assistant; Referring Provider Anesthesiology Pain Medicine; Visit Provider Anesthesiology Pain Medicine
DX: M51.36 Other intervertebral disc degeneration, lumbar region (principal)
CPT/HCPCS: 72100

== ENCOUNTER → 2021-10-12 10:30 | Outpatient (CLI) | payer MEDICARE, SELFPAY ==
[2021-10-12 10:38] VITALS: BP 142/64; PULSE 76; RESP 16; TEMP 36; O2SAT 98
[2021-10-12] MEDS: 0.9% NaCl Peripheral Flush Adult/Peds IV (10:43)
[2021-10-12 11:22] VITALS: BP 130/55; PULSE 68; RESP 16; TEMP 36.2
[2021-10-12 12:22] VITALS: BP 129/55; PULSE 64; RESP 16; TEMP 36; O2SAT 99
[2021-10-12 13:00] VITALS: BP 135/55; PULSE 66; RESP 16; TEMP 36.1; O2SAT 99
[2021-10-12] MEDS: Furosemide 20 MG/2 ML VIAL IV (13:01)
== END ==
PROVIDERS: PCP Physician Assistant; Referring Provider Internal Medicine Hematology & Oncology; Visit Provider Internal Medicine Hematology & Oncology
DX: D46.20 Refractory anemia with excess of blasts, unspecified (principal)
CPT/HCPCS: 36430; 86850; 86900; 86901; 86920; J7040; P9016; A4216; J1940

== ENCOUNTER → 2021-10-26 10:31 | Outpatient (CLI) | payer MEDICARE, SELFPAY ==
[2021-10-26 11:16] VITALS: BP 117/41; PULSE 67; RESP 16; TEMP 36.3; O2SAT 99
[2021-10-26] MEDS: 0.9% NaCl Peripheral Flush Adult/Peds IV (11:19)
[2021-10-26 11:41] VITALS: BP 123/49; PULSE 60; RESP 16; TEMP 36.2; O2SAT 99
[2021-10-26 12:41] VITALS: BP 133/47; PULSE 64; RESP 16; TEMP 36.2
[2021-10-26 13:35] VITALS: BP 138/45; PULSE 70; RESP 16; TEMP 36.2; O2SAT 97
[2021-10-26] MEDS: Furosemide 20 MG/2 ML VIAL IV (13:36)
== END ==
PROVIDERS: PCP Physician Assistant; Referring Provider Internal Medicine Hematology & Oncology; Visit Provider Internal Medicine Hematology & Oncology
DX: D46.20 Refractory anemia with excess of blasts, unspecified (principal)
CPT/HCPCS: 36430; 86850; 86900; 86901; 86920; 86922; J7040; P9016; A4216; J1940

== ENCOUNTER → 2021-11-08 10:02 | Outpatient (CLI) | payer MEDICARE, SELFPAY ==
[2021-11-08 10:13] VITALS: BP 133/43; PULSE 77; RESP 16; TEMP 36.5; O2SAT 100
[2021-11-08] MEDS: 0.9% NaCl Peripheral Flush Adult/Peds IV ×2 (10:21→12:45)
[2021-11-08 10:55] VITALS: BP 123/47; PULSE 65; RESP 16; TEMP 36.4; O2SAT 100
[2021-11-08 12:00] VITALS: BP 131/56; PULSE 63; RESP 16; TEMP 36.4; O2SAT 98
[2021-11-08] MEDS: Furosemide 20 MG/2 ML VIAL IV (12:45)
[2021-11-08 12:55] VITALS: BP 125/47; PULSE 69; RESP 16; TEMP 36.6; O2SAT 96
[2021-11-08 12:56] VITALS: BP 125/47; PULSE 69; RESP 16; TEMP 36.6; O2SAT 96
== END ==
PROVIDERS: PCP Physician Assistant; Referring Provider Internal Medicine Hematology & Oncology; Visit Provider Internal Medicine Hematology & Oncology
DX: D46.20 Refractory anemia with excess of blasts, unspecified (principal)
CPT/HCPCS: 36430; 86850; 86900; 86901; 86920; 86922; J7040; P9040; A4216; J1940

== ENCOUNTER 2021-11-23 10:12 | Outpatient (CLI) | payer MEDICARE, SELFPAY ==
[2021-11-23 10:31] VITALS: BP 133/55; PULSE 77; RESP 18; TEMP 36.6; O2SAT 98; BMI 24.3
[2021-11-23] MEDS: 0.9% NaCl Peripheral Flush Adult/Peds IV (11:18)
[2021-11-23 11:30] VITALS: BP 126/49; PULSE 65; RESP 16; TEMP 36.6; O2SAT 97
[2021-11-23 12:30] VITALS: BP 125/59; PULSE 69; RESP 16; TEMP 36.6; O2SAT 98
[2021-11-23 13:25] VITALS: BP 123/44; PULSE 66; RESP 16; TEMP 36.6
[2021-11-23] MEDS: Furosemide 20 MG/2 ML VIAL IV (13:27)
== END 2021-11-23 23:59 | disposition short-term general hospital (02) ==
LOC: MEDOUTP 10:13
PROVIDERS: PCP Physician Assistant; Referring Provider Internal Medicine Hematology & Oncology; Visit Provider Internal Medicine Hematology & Oncology
DX: D46.20 Refractory anemia with excess of blasts, unspecified (principal)
CPT/HCPCS: 36430; 86850; 86900; 86901; 86920; 86922; J7040; P9040; A4216; J1940

== ENCOUNTER 2021-12-06 12:59 | Outpatient (CLI) | payer MEDICARE, SELFPAY ==
--- NOTE | 2021-12-06 13:23 | MRI_ITS ---
We are attempting to reach an attending provider to discuss findings. An addendum with communication details will be sent when the communication is complete. STUDY: MRI LUMBAR SPINE WITHOUT CONTRAST REASON FOR EXAM: Male, 76 years old. BACK PAIN, LEG PAIN TECHNIQUE: Standardized fat and water weighted pulse sequences were obtained in the sagittal and axial planes. COMPARISON: Lumbar spine radiographs 10/08/2021. CT abdomen and pelvis with contrast 06/01/2020. FINDINGS: T11-T12: Normal T11 inferior endplate. Mild old anterior wedge compression fracture of the upper T12 vertebral body without bone edema. Left lower anterior T11 vertebral body benign hemangioma. No ventral extradural defect. Abnormal T1 and T2 hyperintensities of the vertebral bodies and posterior osseous elements. Normal central canal and bilateral lateral recesses. Normal bilateral intervertebral neural foramina. T12-L1: Normal endplates. Normal disc height and morphology. Normal facet joints. Normal central canal and bilateral lateral recesses. Right T12 pedicle benign vertebral body hemangioma. 2 posterior T12 benign vertebral body hemangiomas. Abnormal T1 and T2 hypointensities of the vertebral bodies and posterior osseous elements. Normal lumbar lordosis. There is no substantial scoliosis. Normal conus medullaris that terminates at the upper L1 vertebral body level. L1-2: Schmorl''s nodes with reactive edema in the L1 inferior endplate. Normal L2 endplate. Normal disc height. No ventral extra dural defect. Abnormal irregular T1 and T2 hyperintensities the vertebral bodies and posterior osseous elements. Normal central canal and bilateral lateral recesses. Normal bilateral intervertebral neural foramina. L2-3: Normal endplates. Normal disc height. Abnormal mottled T1 and T2 hypointensity of the vertebral bodies and posterior osseous elements. Normal central canal and bilateral lateral recesses. Normal bilateral intervertebral neural foramina. L3-4: Normal endplates. Schmorl''s node in with minimal reactive edema in the central L4 superior endplate. Mild disc space height narrowing. Abnormal mottled T1 and T2 hypointensities of the vertebral bodies and posterior osseous elements. Normal central canal and bilateral lateral recesses. Normal bilateral intervertebral neural foramina. L4-5: Normal endplates. Normal disc height. Abnormal mottled T1 and T2 hypointensities of the vertebral bodies and posterior osseous elements. Mild bilateral degenerative facet arthropathy. Mild central canal stenosis with an AP canal diameter 10 elements. Normal bilateral lateral recesses. Normal bilateral intervertebral neural. Small right L4 superior articular facet hemangioma. No significant facet arthropathy. Normal bilateral intervertebral neural foramina. L5-S1: Normal endplates. Abnormal mottled T1 and T2 hyperintensities of the vertebral bodies and posterior elements. No significant facet arthropathy. Normal central canal and bilateral lateral recesses. Normal bilateral intervertebral neural foramina. Abnormal T1 and T2 hypointensities of the sacral alar wings and the iliac bones. Normal visualized paraspinous soft tissue structures. MRI/Spine Lumbar (Routine) IMPRESSION: 1. Diffuse abnormal T1-T2 hyperintensities of the vertebral bodies and posterior elements of the lumbar spine, sacrum and iliac bones. 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 2. No MRI evidence of lumbar extruded disc fragment. Electronically Signed: Jovani Flores MD at 16:16 EST ,
== END 2021-12-06 23:59 | disposition short-term general hospital (02) ==
LOC: MRI 13:00
PROVIDERS: PCP Physician Assistant; Referring Provider Anesthesiology Pain Medicine; Visit Provider Anesthesiology Pain Medicine
DX: M48.061 Spinal stenosis, lumbar region without neurogenic claudication (principal)
CPT/HCPCS: 72148

== ENCOUNTER 2021-12-18 10:51 | Outpatient (CLI) | payer MEDICARE, SELFPAY ==
[2021-12-18] MEDS: 0.9% NaCl Peripheral Flush Adult/Peds IV (11:25)
[2021-12-18 11:28] VITALS: BP 145/66; PULSE 76; RESP 18; TEMP 36.7; O2SAT 96
[2021-12-18 11:33] VITALS: BP 138/76; PULSE 71; RESP 16; TEMP 36.7; O2SAT 96
[2021-12-18 11:48] VITALS: BP 138/63; PULSE 68; RESP 16; TEMP 36.6; O2SAT 98
[2021-12-18 12:48] VITALS: BP 147/83; PULSE 75; RESP 16; TEMP 36.7; O2SAT 97
[2021-12-18] MEDS: Furosemide 20 MG/2 ML VIAL IV (13:48)
--- NOTE | 2021-12-18 15:58 | ONC.PHONE ---
patients had called with several questions, as they are considering changing to [facility]. 1. What is the cut off number in order to qaulify for a blood transfusion? HGB of 9 is when he typically gets blood at [facility] Spoke with Dr. Alfaro, he stated with the critical blood shortage we will have to follow the guidelines per blood bank (HGB 7-8) Without the blood shortage a HGB of 9 and symptoms could get a transfusion. 2. Will the portal send a message when new results are available? Yes, the portal will send a message when a new item is available. 3. Pt was to check with her insurance [employer] regarding a charge for labs done in a hospital setting v/s an office setting. 4. Wondered if Dr. Alfaro would be able to discuss in more detail what treatment options are available for Loreta since he has ciro iron in his blood due to multiple transfusions. She stated Dr. Alfaro had some suggestions of treatment available. Dr. Alfaro would like to see the patient in person to discuss these options. Pt stated they would set something up after their routine appointment with Dr. Akers. 5. Could we keep our [facility] PCP - Yes 6. Dr. Traore used for pain management? Yes 7. Blood Bank allow family to donate blood on Loreta's behalf? Spoke to Blood bank and stated they would need to call blood bank for direction. Prior to shortage completed in [place]. Gave Sigrid the number [phone] for autologous blood donation. Pt and family happy with follow up.
== END 2021-12-18 23:59 | disposition home or self-care (01) ==
LOC: MEDOUTP 10:52
PROVIDERS: PCP Physician Assistant; Referring Provider Internal Medicine Hematology & Oncology; Visit Provider Internal Medicine Hematology & Oncology
DX: D46.20 Refractory anemia with excess of blasts, unspecified (principal)
CPT/HCPCS: 36430; 86850; 86900; 86901; 86920; 86922; J7040; P9016; A4216; J1940

== ENCOUNTER → 2022-03-07 | Outpatient (CLI) | payer MEDICARE, SELFPAY ==
--- NOTE | 2022-03-07 12:44 | CT_ITS ---
EXAM: CT CHEST, ABDOMEN AND PELVIS WITH INTRAVENOUS CONTRAST CLINICAL INDICATION: MDS Notes Myelodysplastic syndrome follow up, currently getting blood transfusions, prior umbilical hernia repair. TECHNIQUE: Helically acquired images were obtained of the chest, abdomen and pelvis with intravenous contrast. This CT exam was performed using one or more of the following dose reduction techniques: automated exposure control, adjustment of the mA and/or kV according to patient size, and/or use of iterative reconstruction technique. This report was created using Tealium report generation technology. CONTRAST: IV 100mL Isovue-300 RADIATION DOSE: CTDIvol = 16.68 mGy, DLP = 1592.83 mGy-cm COMPARISON: Jun 01 2020 12:41pm FINDINGS: CHEST: LUNGS AND PLEURAL SPACES: Unremarkable. No mass. No consolidation or edema. No pleural effusion or thickening. No pneumothorax. HEART: There are calcifications of the coronary arteries. Heart size is normal. No pericardial effusion. MEDIASTINUM: See below. THYROID: The thyroid is heterogenous. It contains nodules. This should be further evaluated with ultrasound. This can be performed as an outpatient. ABDOMEN: LIVER: There is periportal edema noted. GALLBLADDER AND BILE DUCTS: Unremarkable. No calcified gallstones. No gallbladder distention or wall edema. No intra- or extrahepatic biliary ductal dilation. PANCREAS: Unremarkable. No focal cystic or solid mass. SPLEEN: There is moderate splenomegaly. ADRENALS: Unremarkable. No nodules. KIDNEYS AND URETERS: There are hypodensities in the right kidney. These are consistent for cysts. No follow up required. Normal renal size and position. No hydronephrosis. STOMACH AND BOWEL: Unremarkable. No stomach or bowel distention. No focal inflammatory change. PELVIS: APPENDIX: The appendix is visualized and appears normal. BLADDER: Normal urinary bladder. REPRODUCTIVE: There are prostatic calcifications. CHEST, ABDOMEN and PELVIS: INTRAPERITONEAL SPACE: Unremarkable. No ascites or other fluid collection. No free air. BONES/JOINTS: There are degenerative changes of the shoulders. There are multi-level degenerative changes of the thoracic spine. T11 vertebral body hemangiomas. There are diffuse degenerative changes of the visualized lumbar spine. SOFT TISSUES: Intramuscular lipoma of the left subscapularis muscle. There is a right-sided inguinal hernia containing adipose tissue. There is a left-sided inguinal hernia containing adipose tissue and minimal fluid. VASCULATURE: There is atherosclerotic calcification of the aortic arch with tortuosity and elongation of the aortic arch and descending thoracic aorta. There are calcifications of the abdominal aorta. This is consistent for atherosclerotic disease. There is no abdominal aortic aneurysm. No aortic dissection. No obvious central pulmonary embolism although this study was not performed with the pulmonary embolism protocol. LYMPH NODES: Mild mediastinal adenopathy. Subcentimeter lymph nodes in the aortic hiatus. Stable inguinal lymph nodes. Normal inferior vena cava. Subcentimeter mesenteric lymph nodes. OTHER FINDINGS: Stable left peripelvic cysts. No follow-up required. CT/CT Chest, Abd, Pel w/Contrast IMPRESSION: 1. The thyroid is heterogenous. It contains nodules. This should be further evaluated with ultrasound. This can be performed as an outpatient. 2. Mild mediastinal adenopathy. 3. There is moderate splenomegaly. Electronically Signed: James Alejo MD at 16:10 EDT ,
== END | disposition home or self-care (01) ==
PROVIDERS: PCP Physician Assistant; Referring Provider Internal Medicine Medical Oncology; Visit Provider Internal Medicine Medical Oncology
DX: D46.9 Myelodysplastic syndrome, unspecified (principal); E04.2 Nontoxic multinodular goiter
CPT/HCPCS: 71260; 74177; Q9967; A4216

== ENCOUNTER 2022-05-09 17:12 | Inpatient (IN) | payer MEDICARE, SELFPAY ==
[2022-05-09] VITALS (10 sets, daily range): BP systolic 133–159; BP diastolic 46–82; PULSE 74–99; RESP 16–18; TEMP 36.8–37.8; O2SAT 97–100; BMI 25.1; BMI 24.4
--- NOTE | 2022-05-09 17:50 | EDS_ITS ---
HPI History of Present Illness Chief Complaint: Fever Detail of Chief Complaint: 100.3 ?F, urinary symptoms and slight increased cough Informant: patient and spouse/S.O. Onset/Context/Timing Onset: Days (Urinary symptoms for the past 48 to 72 hours. Cough is increased past 2 days) Context: Sudden Onset (With regards to the urinary symptoms) Timing: Intermittent Quality: Read HPI Location: Read HPI Current Severity: Per HPI Maximum Severity: Per HPI Worsened by: Nothing Relieved by: Nothing Associated Symptoms Associated Symptoms: Nausea, slight increased cough Narrative Narrative: Patient is a 76-year-old male with history of [place] macroglobulinemia who presents because of documented temperature 4 hours prior to presentation of 100. 3 ?F. Patient took Tylenol. He was instructed to come to the emergency department. His first dose of chemo was April 21. His next dose of chemo is scheduled for May 19. He denies headache. He denies visual, ocular auditory symptoms. He does report slight sore throat. He does report slight increase in cough. Cough is nonproductive. He denies chest discomfort. He does endorse nausea without vomiting or diarrhea. He does report incontinence, urgency and dysuria for the past 2 days. He has not noted blood in his urine. He denies testicular pain. He denies rash. Per review of old records was also history of myelodysplastic syndrome. Prior similar symptoms: No Recent Illness/Hospitalization: [facility] Medical History (Updated 05/09/22 @ 19:[address] Jose rGimaldo MD) Encounter for education [place] MDS (myelodysplastic syndrome) Secondary pulmonary arterial hypertension Sensory neuropathy Home Medications omega-3 fatty acids-fish oil 340 mg-1,000 mg capsule (Fish Oil) 1 ea PO DAILY supplement 05/22/17 [History Last Taken 05/30/20] montelukast 10 mg tablet 10 mg PO QHS allergies 08/24/18 [History Last Taken 05/29/20] omeprazole 20 mg capsule,delayed release 40 mg PO DAILY 08/24/18 [History Last Taken 05/30/20] pyridoxine (vitamin B6) 100 mg tablet 100 mg PO DAILY supplement 08/24/18 [History Last Taken 05/30/20 .] calcium carbonate 500 mg calcium (1,250 mg) tablet 500 mg PO DAILY 05/30/20 [History Last Taken 05/30/20] cholecalciferol (vitamin D3) 50 mcg (2,000 unit) capsule 5,000 unit PO DAILY supplement 05/30/20 [History Last Taken 05/30/20] tadalafil 2.5 mg tablet 2.5 mg PO DAILY 07/28/20 [History Last Taken Unknown] folic acid 1 mg tablet 1 ea PO DAILY 08/13/21 [History Last Taken Unknown] tramadol 50 mg tablet (Ultram) 50 ea PO TID 08/13/21 [History Last Taken Unknown] ondansetron 4 mg disintegrating tablet 4 mg PO Q8H PRN nausea and vomiting #30 tabs 04/17/22 [Rx Last Taken Unknown] losartan 25 mg tablet 25 mg PO DAILY #90 tabs 04/26/22 [Rx Last Taken Unknown] decitabine 35 mg-cedazuridine 100 mg tablet (Inqovi) See Rx Instructions .Route .COMPLEX 05/01/22 [History Last Taken Unknown] doxazosin 4 mg tablet 1 tab PO QHS 05/01/22 [History Last Taken Unknown] Allergy/AdvReac Type Severity Reaction Status Date / Time levofloxacin [From Levaquin] Allergy Other Verified 05/09/22 17:12 sulfamethoxazole AdvReac Other Verified 05/09/22 17:12 [From Bactrim] trimethoprim [From Bactrim] AdvReac Other Verified 05/09/22 17:12 Family History Sister Colon cancer Bleeding disorder Mother Heart disease Diabetes Father CVA (cerebral vascular accident), Onset Age: 95 Surgical History History of bone marrow biopsy History of hernia repair Social History (Updated 05/09/22 @ 17:[address] Jose Grimaldo MD) household members: spouse Smoking Status: Former smoker alcohol intake: never substance use type: does not use caffeine: Yes Type: coffee Number of servings: 3 what type of physical activity do you participate in: none shelley/alevism: Druze seatbelt use: always do you feel safe at home: Yes ROS ROS ED Constitutional Constitutional ED: Reports fever(s); Denies chills, subjective, sweats or weight loss Eyes Eyes: Denies blurry vision, change in vision or diplopia ENT ENT ED: Reports sore throat; Denies ear pain or rhinorrhea Cardiovascular Cardiovascular: Denies chest pain, orthopnea, palpitations, paroxysmal nocturnal dyspnea or racing heartbeat Respiratory/Chest Respiratory/Chest: Reports cough; Denies dyspnea, dyspnea on exertion, orthopnea or paroxysmal nocturnal dyspnea Gastrointestinal Gastrointestinal: Reports nausea; Denies abdominal pain, constipation, diarrhea, melena or vomiting Genitourinary Genitourinary ED: Reports dysuria, urinary frequency and other Details: Frequency and incontinence ; Denies hematuria Musculoskeletal Musculoskeletal: Denies arthralgias, back pain, myalgias or neck pain Integumentary Denies abscess Neurologic Neurologic: Reports weakness; Denies headache(s) or paresthesias Psychiatric Psychiatric: Reports depression; Denies anxiety Endocrine Endocrinology: Denies cold intolerance or heat intolerance EXAM Physical Exam Const Vital Signs: 05/09/22 17:19 05/09/22 17:21 05/09/22 18:06 Temperature 98.7 F 98.7 F Temperature Source Oral Oral Pulse Rate 86 86 Respiratory Rate 16 16 Respiratory Effort Normal Non-Labored Respiratory Pattern Normal Blood Pressure 155/57 H 155/57 H Blood Pressure Mean 89 Pulse Ox 100 100 Oxygen Delivery Method Room Air Room Air 05/09/22 18:21 05/09/22 19:29 Temperature 98.4 F Temperature Source Oral Pulse Rate 75 74 Respiratory Rate 16 18 Respiratory Effort Respiratory Pattern Blood Pressure 133/74 H 144/49 H Blood Pressure Mean 93 80 Pulse Ox 97 97 Oxygen Delivery Method Room Air Room Air Positive well nourished and well developed; Negative for cachectic, contractures or unkempt Constitutional Narrative: Patient has slow psychomotor skills. Affect is flat. General Appearance ED: well developed and NAD; Negative for unkempt, cachectic, contractures or pallor Nutritional Appearance: Negative for cachectic HEENT Reports dry mucous membranes; Denies moist mucous membranes HEENT Narrative: Ears normal. TMs normal. Nares patent. Uvula midline. There is no erythema or exudate the posterior pharynx. Negative for trauma or tenderness Mouth ED: Yes dry mucous membranes Mouth: dry mucous membranes Eyes PERRL and EOMs intact bilaterally General Eye ED: Negative for scleral icterus Neck no lymphadenopathy, supple and no JVD Chest Wall inspection of chest normal Resp normal respiratory effort and No clear to auscultation bilaterally Auscultation: rales right base GI normal to inspection, nondistended, normoactive bowel sounds, non-tender and non-distended; Negative for hepatosplenomegaly Auscultation: normoactive bowel sounds Palpation: soft Back/Spine no CVA tenderness Cervical Spine: Negative for cervical spine tenderness Thoracic Spine / Upper Back: Negative for thoracic spinal tenderness Lumbar Spine / Lower Back: Negative for lumbar spinal tenderness Extremity General Extremety ED: Negative for edema or tenderness General Extremity: Negative for edema Neuro oriented x3, CN's II-XII intact bilaterally and no sensory deficits noted Neuro Narrative: Patient awake but not necessarily alert Motor Exam: strength 5/5 throughout Psych Psych Narrative: Depressed mood with flat affect. Appearance: Negative for unkempt Skin no rashes or lesions noted and no wounds Skin Narrative: Petechiae lower extremity bilateral General Skin Exam: Negative for jaundice or pallor Lesions: lesion noted Rashes: rashes noted MDM MDM MDM Narrative Medical decision making narrative: Concern for neutropenia. Patient presently is not febrile. Believe his source is . However since he does have slight change in respiratory symptoms we will attain chest x-ray. CBC, electrolyte panel was ordered. Clinically he appears dehydrated. Fluid bolus was ordered. Lab Data Attestation: I reviewed the patient's lab results. Lab results narrative: Comprehensive metabolic panel is unremarkable. Lactate unremarkable. Urine is normal. With a total white count of 0.3 and an absolute neutrophil count of 30 dose of cefepime was administered. He also was typed and crossed for 1 unit of blood and 2 packs of platelets since he has petechiae and platelet count of 4000. Suspect his dyspnea is due to anemia, hemoglobin 7.1 Labs: Laboratory Results - last 24 hr 05/09/22 05/09/22 05/09/22 18:20 18:25 18:25 WBC 0.3 L* RBC 2.19 L Hgb 7.1 L Hct 21.1 L MCV 96.3 H MCH 32.4 H MCHC 33.6 RDW Std Deviation 62.3 H RDW Coeff of Jcarlos 18.0 H Plt Count 4 L* MPV TNP Immature Gran % (Auto) 0.000 Neut % (Auto) 10.7 L Lymph % (Auto) 85.7 H [place] % (Auto) 0.0 Eos % (Auto) 3.6 Baso % (Auto) 0.0 Absolute Neuts (auto) 0.0 L Absolute Lymphs (auto) 0.24 L Nucleated RBC % 0 Differential Comment SCANNED Diff Path Review May foll Sodium 136 Potassium 4.1 Chloride 103 Carbon Dioxide 30.0 Anion Gap 3 L BUN 12 Creatinine 0.74 Estim Creat Clear Calc 63.88 Est GFR (MDRD) Af Amer 131 Est GFR (MDRD) Non-Af 108 BUN/Creatinine Ratio 16.1 Glucose 124 H Lactic Acid Calcium 8.9 Total Bilirubin 0.70 AST 19 ALT 41 Alkaline Phosphatase 94 Total Protein 6.3 L Albumin 3.5 Globulin 2.8 Albumin/Globulin Ratio 1.2 Urine Color Yellow Urine Clarity Clear Urine pH 7.0 Ur Specific [place] 1.010 Urine Protein Negative Urine Glucose (UA) Normal Urine Ketones Negative Urine Occult Blood Negative Urine Nitrite Negative Urine Bilirubin Negative Urine Urobilinogen Normal Ur Leukocyte Esterase Negative Urine RBC 0 SEEN Urine WBC 0 SEEN Ur Squamous Epith Cells 0 SEEN Urine Bacteria RARE Urine Mucus 0 SEEN Crossmatch 05/09/22 05/09/22 18:25 19:50 WBC RBC Hgb Hct MCV MCH MCHC RDW Std Deviation RDW Coeff of Jcarlos Plt Count MPV Immature Gran % (Auto) Neut % (Auto) Lymph % (Auto) [place] % (Auto) Eos % (Auto) Baso % (Auto) Absolute Neuts (auto) Absolute Lymphs (auto) Nucleated RBC % Differential Comment Diff Path Review Sodium Potassium Chloride Carbon Dioxide Anion Gap BUN Creatinine Estim Creat Clear Calc Est GFR (MDRD) Af Amer Est GFR (MDRD) Non-Af BUN/Creatinine Ratio Glucose Lactic Acid 0.7 Calcium Total Bilirubin AST ALT Alkaline Phosphatase Total Protein Albumin Globulin Albumin/Globulin Ratio Urine Color Urine Clarity Urine pH Ur Specific [place] Urine Protein Urine Glucose (UA) Urine Ketones Urine Occult Blood Urine Nitrite Urine Bilirubin Urine Urobilinogen Ur Leukocyte Esterase Urine RBC Urine WBC Ur Squamous Epith Cells Urine Bacteria Urine Mucus Crossmatch See Detail Radiography Chest X-Ray - ED: 1 View and Read by ED Physician (Chronic changes. Cardiac silhouette size normal. The aorta appears tortuous. Osseous structures are unremarkable. Lung is unremarkable. Chest x-ray is interpreted by me at 1922.) Diagnostic Testing: Clinical Impression(s) from Imaging Studies Chest X-Ray 05/09/22 19:08 IMPRESSION: Degenerative changes, as described above. No demonstrated acute cardiopulmonary process. Electronically Signed: Jian Manuel DO at 19:27 EDT Reading Location ID and State: [address] [place] [address] Tel [phone], Service support , Rhythm Strip Rhythm Strip: Sinus Rhythm Rate: 76 Ectopy: None Discharge Plan Dx/Rx/DC Orders Clinical Impression: Neutropenic fever, Thrombocytopenia, Symptomatic anemia, Signs and symptoms of anemia Disposition Disposition: Acute [facility]
[2022-05-09] MEDS: 0.9% Normal Saline 1,000 ML 1000 ML IV (18:33)
[2022-05-09 18:39] LABS: Mucous, Urine 0 SEEN /hpf (<or=2+); Red Blood Cells-Urine 0 SEEN /hpf (0-5); Squamous Epithelial Cells - UA 0 SEEN /hpf (0-5); White Blood Cells 0 SEEN /hpf (0-5)
[2022-05-09 18:41] LABS: Absolute Lymphocyte Count 0.24 X10^3/uL (0.83-4.51); Eosinophil# 0.01 X10^3/uL; Eosinophils% 3.6 % (0-5); Hematocrit 21.1 % (40-54); Hemoglobin 7.1 g/dL (13.0-16.5); Lymphocyte # 0.24 X10^3/ul (0.83-4.51); Lymphocyte % 85.7 % (19-41); Mean Corp Hgb Conc 33.6 g/dL (32-36); Mean Corpuscular Hgb 32.4 pg (27.0-32.0); Mean Corpuscular Volume 96.3 fL (80-94); NRBC Flagged by Analyzer 0 % (0-5); Neutrophil # 0.03 X10^3/uL (2.7-7.7); Neutrophil % 10.7 % (47-70); POSITIVE COUNT YES; POSITIVE DIFFERENTIAL YES; POSITIVE MORPHOLOGY YES; RBC Distribution Width SD 62.3 fl (35.1-43.9); Red Blood Count 2.19 M/mm3 (4.6-6.2)
[2022-05-09 18:46] LABS: Color, Urine Yellow (Yellow); Glucose, Dipstick Normal (Normal); Ketone-Dipstick Negative (Negative); Leukocyte Esterase-Dipstick Negative /ul (Negative); Nitrite-Dipstick Negative (Negative); Occult Blood-Urine Negative /ul (Negative); Protein-Dipstick Negative (Negative); Urine Bilirubin Dipstick Negative (Negative); Urine Clarity Clear (Clear); Urine Urobilinogen Normal (Normal)
[2022-05-09 18:54] LABS: Bacteria RARE /hpf (None Seen)
--- NOTE | 2022-05-09 19:08 | RAD_ITS ---
STUDY: X-RAY CHEST REASON FOR EXAM: Male, 76 years old. Cough and fever. Immunosuppressed. TECHNIQUE: Single AP portable view of the chest. COMPARISON: 05/06/2020. FINDINGS: The lungs are clear and expanded. There is no demonstrated pleural abnormality. Normal size heart. Normal mediastinum and sybil. Normal visualized pulmonary arteries. Normal visualized aortic arch and descending thoracic aorta. There are diffuse degenerative changes of the visualized thoracic spine. There is degenerative osteoarthritis of the bilateral shoulders. There is no demonstrated abnormality of the visualized soft tissue structures of the upper abdomen. RAD/Chest 1 View (Portable) IMPRESSION: Degenerative changes, as described above. No demonstrated acute cardiopulmonary process. Electronically Signed: Jian Manuel DO at 19:27 EDT ,
[2022-05-09 19:11] LABS: ALB/GLOB Ratio 1.2 RATIO (0.9-2.4); AST(SGOT) 19 U/L (15-37); Alanine Aminotransfer ALT/SGPT 41 U/L (16-61); Albumin, Serum 3.5 g/dL (3.2-5.0); Alkaline Phosphatase 94 U/L (45-117); Anion Gap 3 (5-15); BUN 12 mg/dL (7-18); BUN/Creat Ratio 16.1 RATIO (10-20); Calcium,Total 8.9 mg/dL (8.5-10.1); Chloride 103 mmol/L (98-107); Creatinine, Serum 0.74 mg/dL (0.70-1.30); EST Glomerular Filtration Rate 108 mL/min (>60); Est Glom Filt Rate - Afr Amer 131 mL/min (>60); Estimated Creatinine Clearance 63.88 ml/min; Globulin 2.8 g/dL (2.2-4.2); Glucose 124 mg/dL (74-106); Potassium 4.1 mmol/L (3.5-5.1); Protein, Total 6.3 g/dL (6.4-8.2); Sodium Level 136 mmol/L (136-145)
[2022-05-09 19:15] LABS: Lactic Acid 0.7 mmol/L (0.4-1.9)
[2022-05-09 19:36] LABS: Differential Indicated SCAN CRITERIA MET; Platelet Count 4 K/mm3 (150-450); White Blood Count 0.3 K/mm3 (4.4-11.0)
[2022-05-09 19:54] LABS: Differential Comment SCANNED
--- NOTE | 2022-05-09 20:29 | PCM.HP.STD ---
HPI - General General Date of Admission: 05/09/22 Date of Service: 05/09/22 Chief Complaint: Fever, urinary symptoms, recent chemotherapy. 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 Alfaro with history of intolerance of TREV, BM Bx 08/2018 hypercellular marrow, myelodysplastic syndrome with ringed sideroblasts and single lineage dysplasia, ring sideroblasts had increased to 86% requiring periodic PRBC transfusions now nearly needed every 2-3 weeks with recent initiation chemotherapy with Inqovi which was initially administered 04/21/2022 and continued for 5 days with onset of 2 days of urinary incontinence, urgency as well as dysuria and suprapubic discomfort as well as a mild cough noted to be dry and dyspnea, worse with any exertion and significant progressively worsening fatigue as well as fever of 100.3 at home with encouragement per patient's oncologist to present to the ED for evaluation. Patient does report that he took Tylenol prior to ED presentation. Work-up in the ED included T90.7, heart rate 86, BP 155/57, respiratory rate 16, 100% on room air, CBC with WC 0.3, hemoglobin 7.1, platelet 4 with lymphopenia and neutropenia, CMP with glucose 124, hepatic profile unremarkable, urinalysis with no acute findings however given patient's symptoms and significant pancytopenia with neutropenia still high suspicion for UTI, type and cross performed per ED physician, urine culture pending per ED, blood culture x 2 pending per ED. ED physician ordered 2 packs of platelets and 1 unit blood to be administered and patient was administered IV cefepime. ED physician did discuss case with patient's oncology team. [facility] Medical History (Updated 05/09/22 @ 19:[address] Jose Grimaldo MD) Encounter for education [place] MDS (myelodysplastic syndrome) Secondary pulmonary arterial hypertension Sensory neuropathy Home Medications omega-3 fatty acids-fish oil 340 mg-1,000 mg capsule (Fish Oil) 1 ea PO DAILY supplement 05/22/17 [History Last Taken 05/30/20] montelukast 10 mg tablet 10 mg PO QHS allergies 08/24/18 [History Last Taken 05/29/20] omeprazole 20 mg capsule,delayed release 40 mg PO DAILY 08/24/18 [History Last Taken 05/30/20] pyridoxine (vitamin B6) 100 mg tablet 100 mg PO DAILY supplement 08/24/18 [History Last Taken 05/30/20 .] calcium carbonate 500 mg calcium (1,250 mg) tablet 500 mg PO DAILY 05/30/20 [History Last Taken 05/30/20] cholecalciferol (vitamin D3) 50 mcg (2,000 unit) capsule 5,000 unit PO DAILY supplement 05/30/20 [History Last Taken 05/30/20] tadalafil 2.5 mg tablet 2.5 mg PO DAILY 07/28/20 [History Last Taken Unknown] folic acid 1 mg tablet 1 ea PO DAILY 08/13/21 [History Last Taken Unknown] tramadol 50 mg tablet (Ultram) 50 ea PO TID 08/13/21 [History Last Taken Unknown] ondansetron 4 mg disintegrating tablet 4 mg PO Q8H PRN nausea and vomiting #30 tabs 04/17/22 [Rx Last Taken Unknown] losartan 25 mg tablet 25 mg PO DAILY #90 tabs 04/26/22 [Rx Last Taken Unknown] decitabine 35 mg-cedazuridine 100 mg tablet (Inqovi) See Rx Instructions .Route .COMPLEX 05/01/22 [History Last Taken Unknown] doxazosin 4 mg tablet 1 tab PO QHS 05/01/22 [History Last Taken Unknown] docusate sodium 100 mg capsule (Colace) 200 mg PO BID constipation 05/09/22 [History Last Taken Unknown] sennosides 8.6 mg tablet (senna) 17.2 mg PO BID constipation 05/09/22 [History Last Taken Unknown] Allergy/AdvReac Type Severity Reaction Status Date / Time levofloxacin [From Levaquin] Allergy Other Verified 05/09/22 17:12 sulfamethoxazole AdvReac Other Verified 05/09/22 17:12 [From Bactrim] trimethoprim [From Bactrim] AdvReac Other Verified 05/09/22 17:12 Family History Sister Colon cancer Bleeding disorder Mother Heart disease Diabetes Father CVA (cerebral vascular accident), Onset Age: 95 Surgical History History of bone marrow biopsy History of hernia repair Social History (Updated 05/09/22 @ 17:[address] Jose Grimaldo MD) household members: spouse Smoking Status: Former smoker alcohol intake: never substance use type: does not use caffeine: Yes Type: coffee Number of servings: 3 what type of physical activity do you participate in: none shelley/baptist: Yarsanism seatbelt use: always do you feel safe at home: Yes ROS ROS Narrative Admission Review of Systems: CONSTITUTIONAL: No weight loss, + fever, chills, weakness or fatigue. HEENT: Eyes: No visual loss, blurred vision, double vision or yellow sclerae. Ears, Nose, Throat: No hearing loss, sneezing, congestion, runny nose or sore throat. SKIN: No rash or itching, lesions, wounds. CARDIOVASCULAR: No chest pain, chest pressure or chest discomfort, palpitations, edema, orthopnea, syncopal events. RESPIRATORY: No shortness of breath, cough or sputum, wheezing, hemoptysis. GASTROINTESTINAL: No anorexia, nausea, vomiting or diarrhea, abdominal pain, melena, BRBPR. GENITOURINARY: + dysuria, frequency, urgency, suprapubic discomfort. NEUROLOGICAL: No headache, dizziness, syncope, paralysis, ataxia, numbness or tingling in the extremities, focal weakness, change in bowel or bladder control, seizure. MUSCULOSKELETAL: + muscle, back pain, joint pain or stiffness. HEMATOLOGIC: + anemia, bleeding or bruising. LYMPHATICS: + enlarged nodes. No history of splenectomy. PSYCHIATRIC: No history of depression or anxiety. ENDOCRINOLOGIC: No reports of sweating, cold or heat intolerance. No polyuria or polydipsia. ALLERGIES: No history of asthma, hives, eczema or rhinitis. Vital Signs Vital Signs Vital Signs: 05/09/22 17:19 05/09/22 17:21 05/09/22 18:06 Temperature 98.7 F 98.7 F Temperature Source Oral Oral Pulse Rate 86 86 Respiratory Rate 16 16 Respiratory Effort Normal Non-Labored Respiratory Pattern Normal Blood Pressure 155/57 H 155/57 H Blood Pressure Mean 89 Pulse Ox 100 100 Oxygen Delivery Method Room Air Room Air 05/09/22 18:21 05/09/22 19:29 Temperature 98.4 F Temperature Source Oral Pulse Rate 75 74 Respiratory Rate 16 18 Respiratory Effort Respiratory Pattern Blood Pressure 133/74 H 144/49 H Blood Pressure Mean 93 80 Pulse Ox 97 97 Oxygen Delivery Method Room Air Room Air Weight Weight: 175 lb 0.752 oz Body Mass Index (BMI) 25.1 Physical Exam Narrative Physical Examination: General: Awake, alert, oriented x 3 and cooperative, seated upright in the ED bed, fatigued otherwise no acute distress. Skin: Pale color, normal turgor, no icterus, no cyanosis, occasional staged ecchymoses. HEENT: AT/NC, EOMI, PERRLA, MMM, no carotid bruits or JVD noted. Lungs: Diminished, greater bases, appropriate effort, no rales, ronchi or wheezing. Heart: Regular rate and rhythm; no gallop, rub audible. Abdomen: Soft, mild suprapubic tenderness to palpation otherwise abdomen nontender ND, distant normal BS, no HSM. Extremities: No cyanosis, clubbing, or edema. Neurological: Patient awake, alert, oriented as noted, cognitive function intact; pupils equally reactive to light and accommodation, cranial nerves II-XII grossly normal, moving all 4 extremities, no focal deficits, strength moderately to severely global decreased. Psychiatric: Affect appears flat, fatigued, no acute evidence of depressive or anxiety feelings. Results Lab / Micro Data Result Diagrams: 05/09/22 18:25 05/09/22 18:25 Labs: Laboratory Results - last 24 hr 05/09/22 18:20: Urine Color Yellow, Urine Clarity Clear, Urine pH 7.0, Ur Specific [place] 1.010, Urine Protein Negative, Urine Glucose (UA) Normal, Urine Ketones Negative, Urine Occult Blood Negative, Urine Nitrite Negative, Urine Bilirubin Negative, Urine Urobilinogen Normal, Ur Leukocyte Esterase Negative, Urine RBC 0 SEEN, Urine WBC 0 SEEN, Ur Squamous Epith Cells 0 SEEN, Urine Bacteria RARE, Urine Mucus 0 SEEN 05/09/22 18:25: WBC 0.3 L*, RBC 2.19 L, Hgb 7.1 L, Hct 21.1 L, MCV 96.3 H, MCH 32.4 H, MCHC 33.6, RDW Std Deviation 62.3 H, RDW Coeff of Jcarlos 18.0 H, Plt Count 4 L*, MPV TNP, Immature Gran % (Auto) 0.000, Neut % (Auto) 10.7 L, Lymph % (Auto) 85.7 H, [place] % (Auto) 0.0, Eos % (Auto) 3.6, Baso % (Auto) 0.0, Absolute Neuts (auto) 0.0 L, Absolute Lymphs (auto) 0.24 L, Nucleated RBC % 0, Differential Comment SCANNED, Diff Path Review March foll 05/09/22 18:25: Sodium 136, Potassium 4.1, Chloride 103, Carbon Dioxide 30.0, Anion Gap 3 L, BUN 12, Creatinine 0.74, Estim Creat Clear Calc 63.88, Est GFR (MDRD) Af Amer 131, Est GFR (MDRD) Non-Af 108, BUN/Creatinine Ratio 16.1, Glucose 124 H, Calcium 8.9, Total Bilirubin 0.70, AST 19, ALT 41, Alkaline Phosphatase 94, Total Protein 6.3 L, Albumin 3.5, Globulin 2.8, Albumin/Globulin Ratio 1.2 05/09/22 18:25: Lactic Acid 0.7 05/09/22 19:50: Crossmatch See Detail Rhythm Strip Rhythm Strip: Sinus Rhythm Rate: 76 Ectopy: None Radiology Impression Chest X-Ray 05/09/22 19:08 IMPRESSION: Degenerative changes, as described above. No demonstrated acute cardiopulmonary process. 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 Alfaro with history of intolerance of TREV, BM Bx 08/2018 hypercellular marrow, myelodysplastic syndrome with ringed sideroblasts and single lineage dysplasia, ring sideroblasts had increased to 86% requiring periodic PRBC transfusions now nearly needed every 2-3 weeks with recent initiation chemotherapy with Inqovi which was initially administered 04/21/2022 and continued for 5 days with onset of 2 days of urinary incontinence, urgency as well as dysuria and suprapubic discomfort as well as a mild cough noted to be dry and dyspnea, worse with any exertion and significant progressively worsening fatigue as well as fever of 100.3 at home with encouragement per patient's oncologist to present to the ED for evaluation. Patient does report that he took Tylenol prior to ED presentation. #1. Acute Neutropenic Fever secondary to Acute Complicated Urinary Tract Infection: Will admit to MS, maintain on neutropenic precautions, continue planned treatment of deficiencies with plts pack x 2 and PRBC u x 1 with trending following, notable UTI type symptoms despite UA although given his neutropenia some concern about UA being unable to project his true infection, pending UCx, monitor I/Os, continue IV cefepime w/ transition as able pending sensitivities and speciation. Bld cx x 2 obtained in the ED. #2. 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 Alfaro, recent CT scan on 03/07/2022 w/ mild mediastinal nodes, moderate splenomegaly, multiple thyroid nodules, flow cytometry on 03/21/2022 w/ neutrophils with low side light scatter c/w MDS, noted recent PET/CT done on 03/27/2022 with no evidence of NHL/Leukemia. Recent course Inqovi chemotherapy started on 04/21/22 x 5 day course. Admission CBC w/ WBC 0.3, Hgb 7.1, Plts 4 with neutropenia and lymphopenia. Will continue treatment as noted above, Oncology consulted and pending, mag and phos requested, continue neutropenic precautions, will await their input for potential granix administration, continue with planned PRBC administration and 2 pack plts, will repeat CBC following and in AM. #3. Hypertension: Continue home regimen including losartan with hold parameters as needed, PRN hydralazine. #4. Pulmonary hypertension: We will continue home tadalafil regimen. #5. GERD: We will maintain on home PPI. #6. DVT prophylaxis: Defer SCDs or chemoprophylaxis given acute presentation with significant pancytopenia. #7. CODE status: Patient does not have healthcare power of trial attorney nor living will which was strongly encouraged and and patient are amenable and intend to do so. Discussed CODE status at length including difference between FULL code, DNR-CCA and DNR-CC status. Following discussions about the differences in these status, requested at this time to remain full code as he is unsure and plans to discuss this further with his and update staff if any change from full code is needed. Advanced Care Planning Face to Face Time: 16 minutes. Charges/Coding Visit Charges Inpatient E&M: 91463 Init Hosp L3 Procedures Hospitalists Procedures: 89404 Advncd Care Plan 30 Min
[2022-05-09 21:33] LABS: Phosphorus 3.4 mg/dL (2.5-4.9)
[2022-05-09 21:42] LABS: Procalcitonin 0.04 ng/mL (0.00-0.09)
--- NOTE | 2022-05-09 22:20 | ED.RN ---
Dr. Grimaldo allowed pt to take his home tramadol 50 mg.
[2022-05-09] MEDS: Doxazosin 4 MG Tablet PO (23:46)
[2022-05-09] MEDS: Montelukast 10 MG Tablet PO (23:46)
[2022-05-10] VITALS (15 sets, daily range): BP systolic 101–158; BP diastolic 42–55; PULSE 63–88; RESP 18–20; TEMP 36.8–37.9; O2SAT 92–98
[2022-05-10] MEDS: Acetaminophen 325 MG Tablet 650 MG PO ×4 (00:01→23:42)
[2022-05-10] MEDS: Senna/Docusate Sodium 1 Tablet 2 TABLET PO ×2 (00:02→10:49)
[2022-05-10] MEDS: Furosemide 20 MG/2 ML VIAL IV (00:28)
[2022-05-10] MEDS: 0.9% Saline Lock 10 ML Syringe IV ×3 (00:29→23:49)
[2022-05-10] MEDS: traMADol 50 MG Tablet PO ×3 (05:05→23:42)
[2022-05-10 07:52] LABS: Absolute Lymphocyte Count 0.22 X10^3/uL (0.83-4.51); Eosinophil# 0.01 X10^3/uL; Eosinophils% 4.2 % (0-5); Hematocrit 19.9 % (40-54); Hemoglobin 6.8 g/dL (13.0-16.5); Lymphocyte # 0.22 X10^3/ul (0.83-4.51); Lymphocyte % 91.7 % (19-41); Mean Corp Hgb Conc 34.2 g/dL (32-36); Mean Corpuscular Hgb 32.7 pg (27.0-32.0); Mean Corpuscular Volume 95.7 fL (80-94); Mean Platelet Vol. 10.1 fl (6.2-12.0); NRBC Flagged by Analyzer 0 % (0-5); Neutrophil # 0.01 X10^3/uL (2.7-7.7); Neutrophil % 4.1 % (47-70); POSITIVE COUNT YES; POSITIVE DIFFERENTIAL YES; POSITIVE MORPHOLOGY YES; RBC Distribution Width CV 17.2 % (11.6-14.6); RBC Distribution Width SD 59.6 fl (35.1-43.9); Red Blood Count 2.08 M/mm3 (4.6-6.2)
[2022-05-10 08:02] LABS: Differential Indicated SCAN CRITERIA MET
[2022-05-10 08:19] LABS: ALB/GLOB Ratio 1.1 RATIO (0.9-2.4); AST(SGOT) 17 U/L (15-37); Alanine Aminotransfer ALT/SGPT 31 U/L (16-61); Albumin, Serum 2.8 g/dL (3.2-5.0); Alkaline Phosphatase 66 U/L (45-117); Anion Gap 6 (5-15); BUN 9 mg/dL (7-18); BUN/Creat Ratio 14.6 RATIO (10-20); Chloride 103 mmol/L (98-107); Creatinine, Serum 0.62 mg/dL (0.70-1.30); EST Glomerular Filtration Rate 134 mL/min (>60); Est Glom Filt Rate - Afr Amer 162 mL/min (>60); Estimated Creatinine Clearance 63.88 ml/min; Globulin 2.5 g/dL (2.2-4.2); Glucose 113 mg/dL (74-106); Potassium 3.6 mmol/L (3.5-5.1); Protein, Total 5.3 g/dL (6.4-8.2); Sodium Level 136 mmol/L (136-145)
[2022-05-10 08:38] LABS: Platelet Count 18 K/mm3 (150-450); White Blood Count 0.2 K/mm3 (4.4-11.0)
[2022-05-10 08:41] LABS: Platelet Estimate MKD DEC (ADEQ); Red Cell Morphology NORM C+C NORMAL (NORM C&C)
[2022-05-10] MEDS: Folic Acid 1 MG Tablet PO (10:49)
[2022-05-10] MEDS: Pantoprazole Sodium 40 MG Tablet PO (10:49)
[2022-05-10] MEDS: Pyridoxine HCl 100 MG Tablet PO (10:49)
[2022-05-10] MEDS: Calcium (Elemental) 500 MG Tablet PO (10:50)
[2022-05-10] MEDS: Cholecalciferol (Vit D3) 125 MCG CAPSULE (5,000 UNITS) PO (10:50)
[2022-05-10 12:56] LABS: Pathologist Review Reviewed
--- NOTE | 2022-05-10 13:08 | CASEMGMT ---
TALON CASTANEDA Assessment: Face to Face with pt for initial transition planning/care coordination assessment. RN TONYA introduced self and role at [facility], pt voices understanding and consents to assessment. Pt is A/O x4 and answers all questions appropriately at this time. Pt sitting up in chair in no distress. Care providers, pharmacy, and demographics verified/updated. Admitting Dx: neutropenic fever, pancytopenia, UTI PCP:MENDEL Hooker Specialists:Segun, cardio; Basali, pain mgmt; Prah, onc Pref[facility] [place] Insurance: [employer] Prescription Benefit: yes LW/HPOA: Pt denies having a LW/DPOA and denies need for info regarding AD. LNOK: Sigrid Hurst, Living Arrangements: Pt lives with in a raised ranch log cabin with 12 steps to enter with a rail. Pt reports he is I in ADL's and denies concerns at home. Transportation: Pt transports him to medical appts. DME/HHC/SNF: Pt recently started using a cane, he also has a BSC, grab bars at the toilet and shower. Pt denies hx of HHC or SNF stays. Pt states no concerns with going home at time of dc. Pt states no further concerns/needs. CM to follow. Advised pt to ask CM if any further question/concerns/needs arise, voices understanding. Pt Goal: Home Plan: Home
--- NOTE | 2022-05-10 14:19 | PN.HOSP_ITS ---
Subjective Subjective Follow-up for pancytopenia Patient has history of MDS, diagnosed in 2015 [place] macroglobulinemia and neuropathy and declined treatment.. Bone marrow biopsy in 2018 shows hypercellular marrow, low dysplastic syndrome with ring sideroblasts and single lineage dysplasia. MRI in November 2021 showed diffuse abnormal T1-T2 hyperintensity vertebral bodies of the lumbar spine and sacrum and iliac bones suggestive of possible diffuse metastatic bone disease or multiple myeloma. Patient has been getting paracenteses as an outpatient to keep Elevated. CT scan on 02/27/2022 shows mediastinal lymphadenopathy moderate splenomegaly. PET/CT done 03/27/2022 was negative. The patient is admitted for severe pancytopenia. Platelet count 18,000 Objective Data Objective Data Vital Signs: Vital Signs Temp Pulse Resp BP Pulse Ox O2 Del Method 98.4 F 70 18 114/42 L 98 Room Air 05/10/22 13:24 05/10/22 13:24 05/10/22 13:24 05/10/22 13:24 05/10/22 13:24 05/10/22 13:24 Oxygen Delivery Method Room Air Weight: 170 lb 3.15 oz Body Mass Index (BMI) 24.4 Intake & Output: Intake and Output for Last 24 Hours 05/08/22 05/09/22 05/10/22 23:59 23:59 23:59 Intake Total 1100 / 1100 800 / 800 Output Total 400 / 400 Balance 1100 / 1100 400 / 400 Lab / Micro Data Result Diagrams: 05/10/22 07:39 05/10/22 07:39 Labs: Laboratory Results - last 24 hr 05/09/22 18:20: Urine Color Yellow, Urine Clarity Clear, Urine pH 7.0, Ur Speci fic [place] 1.010, Urine Protein Negative, Urine Glucose (UA) Normal, Urine Ketones Negative, Urine Occult Blood Negative, Urine Nitrite Negative, Urine Bilirubin Negative, Urine Urobilinogen Normal, Ur Leukocyte Esterase Negative, Urine RBC 0 SEEN, Urine WBC 0 SEEN, Ur Squamous Epith Cells 0 SEEN, Urine Bacteria RARE, Urine Mucus 0 SEEN 05/09/22 18:25: WBC 0.3 L*, RBC 2.19 L, Hgb 7.1 L, Hct 21.1 L, MCV 96.3 H, MCH 32.4 H, MCHC 33.6, RDW Std Deviation 62.3 H, RDW Coeff of Jcarlos 18.0 H, Plt Count 4 L*, MPV TNP, Immature Gran % (Auto) 0.000, Neut % (Auto) 10.7 L, Lymph % (Auto) 85.7 H, [place] % (Auto) 0.0, Eos % (Auto) 3.6, Baso % (Auto) 0.0, Absolute Neuts (auto) 0.0 L, Absolute Lymphs (auto) 0.24 L, Nucleated RBC % 0, Differential Comment SCANNED, Diff Path Review Reviewed 05/09/22 18:25: Sodium 136, Potassium 4.1, Chloride 103, Carbon Dioxide 30.0, Anion Gap 3 L, BUN 12, Creatinine 0.74, Estim Creat Clear Calc 63.88, Est GFR (MDRD) Af Amer 131, Est GFR (MDRD) Non-Af 108, BUN/Creatinine Ratio 16.1, Glucose 124 H, Calcium 8.9, Total Bilirubin 0.70, AST 19, ALT 41, Alkaline Phosphatase 94, Total Protein 6.3 L, Albumin 3.5, Globulin 2.8, Albumin/Globulin Ratio 1.2 05/09/22 18:25: Lactic Acid 0.7 05/09/22 18:25: Phosphorus 3.4, Magnesium 2.0 05/09/22 18:25: Procalcitonin 0.04 05/09/22 19:50: Blood Type B POSITIVE, Antibody Screen NEGATIVE, Crossmatch See Detail 05/09/22 19:50: Crossmatch See Detail 05/10/22 07:39: WBC 0.2 L*, RBC 2.08 L, Hgb 6.8 L, Hct 19.9 L, MCV 95.7 H, MCH 32.7 H, MCHC 34.2, RDW Std Deviation 59.6 H, RDW Coeff of Jcarlos 17.2 H, Plt Count 18 L*, MPV 10.1, Immature Gran % (Auto) 0.000, Neut % (Auto) 4.1 L, Lymph % (Auto) 91.7 H, [place] % (Auto) 0.0, Eos % (Auto) 4.2, Baso % (Auto) 0.0, Absolute Neuts (auto) 0.0 L, Absolute Lymphs (auto) 0.22 L, Nucleated RBC % 0, Differential Comment , Diff Path Review May foll, Platelet Estimate MKD DEC, RBC Morphology NORM C+C 05/10/22 07:39: Sodium 136, Potassium 3.6, Chloride 103, Carbon Dioxide 27.0, Anion Gap 6, BUN 9, Creatinine 0.62 L, Estim Creat Clear Calc 63.88, Est GFR (MDRD) Af Amer 162, Est GFR (MDRD) Non-Af 134, BUN/Creatinine Ratio 14.6, Glucose 113 H, Calcium 8.0 L, Total Bilirubin 1.20 H, AST 17, ALT 31, Alkaline Phosphatase 66, Total Protein 5.3 L, Albumin 2.8 L, Globulin 2.5, Albumin/Globul in Ratio 1.1 Micro: Microbiology 05/09/22 18:20 Urine, Clean Catch Urine 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 No demonstrated acute cardiopulmonary process. Electronically Signed: Jian Manuel at 19:27 EDT Reading Location ID and State: [address] [place] [address] Tel [phone], Service support , Rhythm Strip Rhythm Strip: Sinus Rhythm Rate: 76 Ectopy: None Physical Exam Narrative General: Awake, fatigue. Low pitched voice. HEENT: Atraumatic, PERRLA, EOMI, Normocephalic Oral: No Gingival or Mucosal Lesions/ Ulcerations Neck: Supple, No JVD, Negative Carotid Bruits Lungs: Air entry diminished in bilateral lung bases. Mild dyspnea on exertion no crepitation/rhonchi Cardiovascular: BP on lower side. Regular rate, Regular Rhythm, Normal S1, Normal S2, No murmurs Abdomen: Bowel Sounds Present, Soft, Non Tender, Non-Distended : No renal angle tenderness. No suprapubic tenderness. Extremities: No edema, Capillary Refill Less than 3 Seconds Skin: No rashes, No breakdown Musculoskeletal: No Tenderness to Palpation of Joints or Extremities Neurological: Cranial nerves II-XII grossly intact, DTR 2+/4 and Symmetrical, Neuro grossly intact Psych/Mental Status: Normal Affect, Appropriate.
--- NOTE | 2022-05-10 14:45 | PN.HOSP_ITS ---
Documented by User: Ritu Scherer NP, EDUCATION SALES CONSULTANT-C 05/10/22 14:56 Subjective Subjective Patient seen and examined. Denies fever, chills. Reports some urinary frequency. Denies other symptoms or complaints. Objective Data Objective Data Vital Signs: Vital Signs Temp Pulse Resp BP Pulse Ox O2 Del Method 99.2 F H 67 18 118/45 L 97 Room Air 05/10/22 14:27 05/10/22 14:27 05/10/22 14:27 05/10/22 14:27 05/10/22 14:27 05/10/22 14:27 Oxygen Delivery Method Room Air Weight: 170 lb 3.15 oz Body Mass Index (BMI) 24.4 Intake & Output: Intake and Output for Last 24 Hours 05/08/22 05/09/22 05/10/22 23:59 23:59 23:59 Intake Total 1100 / 1100 800 / 800 Output Total 400 / 400 Balance 1100 / 1100 400 / 400 Lab / Micro Data Result Diagrams: 05/11/22 05:55 05/11/22 05:55 Labs: Laboratory Results - last 24 hr 05/09/22 18:20: Urine Color Yellow, Urine Clarity Clear, Urine pH 7.0, Ur Specific [place] 1.010, Urine Protein Negative, Urine Glucose (UA) Normal, Urine Ketones Negative, Urine Occult Blood Negative, Urine Nitrite Negative, Urine Bilirubin Negative, Urine Urobilinogen Normal, Ur Leukocyte Esterase Negative, U rine RBC 0 SEEN, Urine WBC 0 SEEN, Ur Squamous Epith Cells 0 SEEN, Urine Bacteria RARE, Urine Mucus 0 SEEN 05/09/22 18:25: WBC 0.3 L*, RBC 2.19 L, Hgb 7.1 L, Hct 21.1 L, MCV 96.3 H, MCH 32.4 H, MCHC 33.6, RDW Std Deviation 62.3 H, RDW Coeff of Jcarlos 18.0 H, Plt Count 4 L*, MPV TNP, Immature Gran % (Auto) 0.000, Neut % (Auto) 10.7 L, Lymph % (Auto) 85.7 H, [place] % (Auto) 0.0, Eos % (Auto) 3.6, Baso % (Auto) 0.0, Absolute Neuts (auto) 0.0 L, Absolute Lymphs (auto) 0.24 L, Nucleated RBC % 0, Differential Comment SCANNED, Diff Path Review Reviewed 05/09/22 18:25: Sodium 136, Potassium 4.1, Chloride 103, Carbon Dioxide 30.0, Anion Gap 3 L, BUN 12, Creatinine 0.74, Estim Creat Clear Calc 63.88, Est GFR (MDRD) Af Amer 131, Est GFR (MDRD) Non-Af 108, BUN/Creatinine Ratio 16.1, Glucose 124 H, Calcium 8.9, Total Bilirubin 0.70, AST 19, ALT 41, Alkaline Phosphatase 94, Total Protein 6.3 L, Albumin 3.5, Globulin 2.8, Albumin/Globulin Ratio 1.2 05/09/22 18:25: Lactic Acid 0.7 05/09/22 18:25: Phosphorus 3.4, Magnesium 2.0 05/09/22 18:25: Procalcitonin 0.04 05/09/22 19:50: Blood Type B POSITIVE, Antibody Screen NEGATIVE, Crossmatch See Detail 05/09/22 19:50: Crossmatch See Detail 05/10/22 07:39: WBC 0.2 L*, RBC 2.08 L, Hgb 6.8 L, Hct 19.9 L, MCV 95.7 H, MCH 32.7 H, MCHC 34.2, RDW Std Deviation 59.6 H, RDW Coeff of Jcarlos 17.2 H, Plt Count 18 L*, MPV 10.1, Immature Gran % (Auto) 0.000, Neut % (Auto) 4.1 L, Lymph % (Auto) 91.7 H, [place] % (Auto) 0.0, Eos % (Auto) 4.2, Baso % (Auto) 0.0, Absolute Neuts (auto) 0.0 L, Absolute Lymphs (auto) 0.22 L, Nucleated RBC % 0, Differential Comment , Diff Path Review May foll, Platelet Estimate MKD DEC, RBC Morphology NORM C+C 05/10/22 07:39: Sodium 136, Potassium 3.6, Chloride 103, Carbon Dioxide 27.0, Anion Gap 6, BUN 9, Creatinine 0.62 L, Estim Creat Clear Calc 63.88, Est GFR (MDRD) Af Amer 162, Est GFR (MDRD) Non-Af 134, BUN/Creatinine Ratio 14.6, Glucose 113 H, Calcium 8.0 L, Total Bilirubin 1.20 H, AST 17, ALT 31, Alkaline Phosphatase 66, Total Protein 5.3 L, Albumin 2.8 L, Globulin 2.5, Albumin/Globulin Ratio 1.1 Micro: Microbiology 05/09/22 18:20 Urine, Clean Catch Urine Culture - Preliminary GNR lactose instructor warper Radiography Diagnostic Testing: Radiology Impression Chest X-Ray 05/09/22 19:08 IMPRESSION: Degenerative changes, as described above. No demonstrated acute cardiopulmonary process. Electronically Signed: Jian Manuel DO at 19:27 EDT Reading Location ID and State: [address] [place] [address] Tel [phone], Service support , Rhythm Strip Rhythm Strip: Sinus Rhythm Rate: 76 Ectopy: None Physical Exam Const alert, oriented x3 and no apparent distress Orientation / Consciousness: awake, oriented to person, oriented to place and oriented to time HEENT normocephalic and moist oral mucous membranes Eyes PERRL, EOMs intact bilaterally and conjunctivae normal Neck no lymphadenopathy Resp normal respiratory effort and clear to auscultation bilaterally Cardio regular rate, regular rhythm and no murmurs Peripheral Pulses: pulses 2+ throughout GI normal to inspection, nondistended, normoactive bowel sounds, non-tender and non-distended Extremity normal to inspection Skin no rashes or lesions noted Lesions: no lesions Rashes: no rashes Trauma: no lacerations or abrasions Neuro CN's II-XII intact bilaterally, no focal motor deficits, no sensory deficits noted and deep tendon reflexes 2+ bilaterally Psych mental status grossly normal and affect normal Assessment & Plan Assessment/Plan (1) Neutropenic fever: PLAN: Plan 1. Acute neutropenic fever, secondary to suspected UTI-on IV cefepime. Urine and blood cultures pending. 2. 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 Alfaro. Oncology consulted. 1 unit PRBC and 2 units platelets ordered. Trend H&H. 3. Hypertension-continue losartan. 4. Pulmonary hypertension-on tadalafil. 5. GERD-continue PPI. DVT prophylaxis-deferred given pancytopenia This patient was seen by CEDRIC Kearns under the supervision of Dr. Mcadams. Time spent examining patient, reviewing data and subsequent management of care: 16 minutes Documented by User: Dr. Crispin Mcadams MD 05/11/22 08:21 Subjective Subjective Patient seen and examined. Denies fever, chills. Reports some urinary frequency. Denies other symptoms or complaints. Seen and examined. Follow-up for pancytopenia No fever or chills. Patient has some increased urinary frequency and urgency but denies dysuria. Patient has history of MDS, diagnosed in 2014 [place] macroglobulinemia and neuropathy and declined treatment..? Bone marrow biopsy in 2017 shows hypercellular marrow, MDS with ring sideroblasts and single lineage dysplasia.? MRI in November 2021 showed diffuse abnormal T1-T2 hyperintensity vertebral bodies of the lumbar spine and sacrum and iliac bones suggestive of possible dif fuse metastatic bone disease or multiple myeloma.? Patient has been getting IV iron infusion for management of anemia ? CT scan on 02/27/2022 shows mediastinal lymphadenopathy moderate splenomegaly.? PET/CT done 03/27/2022 was negative. The patient is admitted for severe pancytopenia.? Platelet count 18,000 Objective Data Lab / Micro Data Result Diagrams: 05/11/22 05:55 05/11/22 05:55 Labs: Laboratory Results - last 24 hr 05/09/22 18:20: Urine Color Yellow, Urine Clarity Clear, Urine pH 7.0, Ur Specific [place] 1.010, Urine Protein Negative, Urine Glucose (UA) Normal, Urine Ketones Negative, Urine Occult Blood Negative, Urine Nitrite Negative, Urine Bilirubin Negative, Urine Urobilinogen Normal, Ur Leukocyte Esterase Negative, Urine RBC 0 SEEN, Urine WBC 0 SEEN, Ur Squamous Epith Cells 0 SEEN, Urine Mariel teria RARE, Urine Mucus 0 SEEN 05/09/22 18:25: WBC 0.3 L*, RBC 2.19 L, Hgb 7.1 L, Hct 21.1 L, MCV 96.3 H, MCH 32.4 H, MCHC 33.6, RDW Std Deviation 62.3 H, RDW Coeff of Jcarlos 18.0 H, Plt Count 4 L*, MPV TNP, Immature Gran % (Auto) 0.000, Neut % (Auto) 10.7 L, Lymph % (Auto) 85.7 H, [place] % (Auto) 0.0, Eos % (Auto) 3.6, Baso % (Auto) 0.0, Absolute Neuts (auto) 0.0 L, Absolute Lymphs (auto) 0.24 L, Nucleated RBC % 0, Differential Comment SCANNED, Diff Path Review Reviewed 05/09/22 18:25: Sodium 136, Potassium 4.1, Chloride 103, Carbon Dioxide 30.0, Anion Gap 3 L, BUN 12, Creatinine 0.74, Estim Creat Clear Calc 63.88, Est GFR (MDRD) Af Amer 131, Est GFR (MDRD) Non-Af 108, BUN/Creatinine Ratio 16.1, Glucose 124 H, Calcium 8.9, Total Bilirubin 0.70, AST 19, ALT 41, Alkaline Phosphatase 94, Total Protein 6.3 L, Albumin 3.5, Globulin 2.8, Albumin/Globulin Ratio 1.2 05/09/22 18:25: Lactic Acid 0.7 05/09/22 18:25: Phosphorus 3.4, Magnesium 2.0 05/09/22 18:25: Procalcitonin 0.04 05/09/22 19:50: Blood Type B POSITIVE, Antibody Screen NEGATIVE, Crossmatch See Detail 05/09/22 19:50: Crossmatch See Detail 05/10/22 07:39: WBC 0.2 L*, RBC 2.08 L, Hgb 6.8 L, Hct 19.9 L, MCV 95.7 H, MCH 32.7 H, MCHC 34.2, RDW Std Deviation 59.6 H, RDW Coeff of Jcarlos 17.2 H, Plt Count 18 L*, MPV 10.1, Immature Gran % (Auto) 0.000, Neut % (Auto) 4.1 L, Lymph % (Auto) 91.7 H, [place] % (Auto) 0.0, Eos % (Auto) 4.2, Baso % (Auto) 0.0, Absolute Neuts (auto) 0.0 L, Absolute Lymphs (auto) 0.22 L, Nucleated RBC % 0, Differential Comment , Diff Path Review May foll, Platelet Estimate MKD DEC, RBC Morphology NORM C+C 05/10/22 07:39: Sodium 136, Potassium 3.6, Chloride 103, Carbon Dioxide 27.0, Anion Gap 6, BUN 9, Creatinine 0.62 L, Estim Creat Clear Calc 63.88, Est GFR (MDRD) Af Amer 162, Est GFR (MDRD) Non-Af 134, BUN/Creatinine Ratio 14.6, Glucose 113 H, Calcium 8.0 L, Total Bilirubin 1.20 H, AST 17, ALT 31, Alkaline Phosphatase 66, Total Protein 5.3 L, Albumin 2.8 L, Globulin 2.5, Albumin/Globulin Ratio 1.1 Physical Exam Narrative General: Awake, fatigue.? Low pitched voice. HEENT: Atraumatic, PERRLA, EOMI, Normocephalic Oral: No Gingival or Mucosal Lesions/ Ulcerations Neck: Supple, No JVD, Negative Carotid Bruits Lungs:? Air entry diminished in bilateral lung bases.? Mild dyspnea on exertion no crepitation/rhonchi Cardiovascular: BP on lower side.? Regular rate, Regular Rhythm, Normal S1, Normal S2, No murmurs Abdomen: Bowel Sounds Present, Soft, Non Tender, Non-Distended : No renal angle tenderness.? No suprapubic tenderness. Extremities: No edema, Capillary Refill Less than 3 Seconds Skin: No rashes, No breakdown Musculoskeletal: No Tenderness to Palpation of Joints or Extremities Neurological: Cranial nerves II-XII grossly intact, DTR? 2+/4 and Symmetrical, Neuro grossly intact Psych/Mental Status: Normal Affect, Appropriate. Assessment & Plan Assessment/Plan (1) Neutropenic fever: PLAN: Plan 1. Acute neutropenic fever, secondary to suspected UTI-on IV cefepime. Urine and blood cultures pending. 2. 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 Alfaro. Oncology consulted. 1 unit PRBC and 2 units platelets ordered. Trend H&H. 3. Hypertension-continue losartan. 4. Pulmonary hypertension-on tadalafil. 5. GERD-continue PPI. DVT prophylaxis-deferred given pancytopenia This patient was seen by CLAIRE KearnsC under the supervision of Dr. Mcadams. Time spent examining patient, reviewing data and subsequent management of care: 15 minutes This patient was seen in conjunction with EDUCATION SALES CONSULTANTRitu. I have independently interviewed and examined the patient and reviewed pertinent history, examination findings, laboratory and plan of management. I have reviewed the note and agree with the documented findings with the few additional points. In brief, patient is 76-year-old admitted with acute neutropenic fever: 1. Acute neutropenic fever secondary to suspected UTI: Patient is on IV's cefepime. Follow-up blood cultures and urine culture. 2. Acute pancytopenia secondary to MDS?ringed sideroblasts, [place] macroglobulinemia with progression to bone possible bony metastasis/progression to multiple myeloma: Patient has history of MDS diagnosed in 2015, [place] macroglobulinemia and neuropathy with bone marrow biopsy in 2018 showed hypercellular marrow, MDS with ringed sideroblasts. MRI genitourinary shows diffuse abnormal T1-T2 hyperintensity of vertebral bodies and posterior elements of lumbar spine, sacrum and 11/2 possible diffuse metastatic bone disease or progression to multiple myeloma. CT scan on 02/27/2022 shows mediastinal lymphadenopathy moderate splenomegaly.?PET/CT done 03/27/2022 was negative. Discussed with oncologist. Consult requested. 3. Hypertension: Blood pressure on lower side. Hold antihypertensive medication until systolic blood pressure is more than 130. 4. Pulmonary hypertension on tadalafil. Other comorbidities as mentioned above I have discussed my assessment with Ritu GONZALEZ and orders have been reviewed. Total time of the visit including total time spent in counseling or coordination of care, (more than 50% of the total time, spent in obtaining medical information from nurses and other ancillary care providers,explaining to the patient about labs, imaging, diagnosis and management), discussion with oncologist, review of labs and imaging is 45 minutes. I spent 30 minutes and CARLOS Chaney spent 15 minutes Charges/Coding Visit Charges Inpatient E&M: 29680 Init Hosp L3
--- NOTE | 2022-05-10 14:59 | ONC.CONSULT ---
Assessment & Plan Assessment/Plan (1) Neutropenic fever: Status: Acute Code(s): D70.9 - Neutropenia, unspecified; R50.81 - Fever presenting with conditions classified elsewhere Plan: Continue empiric broad-spectrum antibiotic cover, adjust if indicated by culture sensitivities. Continue empiric antibiotic cover until neutrophil recovery at or above 1000 for 3 successive days. Any documented infection will need to be fully treated. (2) Myelodysplastic syndrome: Status: Chronic Code(s): D46.9 - Myelodysplastic syndrome, unspecified Plan: Patient is status post Inqovi receiving the first cycle April 21 through April 25, 2022. Cycles are repeated at 4 weeks intervals. Patient will follow-up after discharge with Dr. Alfaro. (3) Pancytopenia: Status: Acute Code(s): D61.818 - Other pancytopenia Plan: Pancytopenia is secondary to underlying primary bone marrow disease, MDS, and recent systemic chemotherapy. Await bone marrow recovery. Growth factor is not indicated since this is a primary stem cell bone marrow disease. Support with blood product transfusions to maintain hemoglobin at or above 8 g per DL. Prophylactic platelet transfusions are indicated for platelet count less than 10K in absence of any significant bleed. HPI Consult Data Date of Service:: 05/10/22 PCP / Referring Provider: MENDEL Markham Attending: Dr. Crispin Mcadams MD Chief Complaint Chief Complaint: Fever History of Present Illness History of Present Illness: 76-year-old gentleman admitted from the emergency room May 09, 2022 with acute fever. Has experienced increasing fatigue over several days. No other localizing symptoms. 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 He was treated with erythrocyte stimulating agent therapy with no response. He started systemic therapy with Inqovi receiving the first cycle April 21 through April 25, 2022. Advanced Directives Power of Asset Protection Lead: No Living Will: No [facility] Medical History (Updated 05/10/22 @ 15:[address] Lary Russo MD) Encounter for education [place] MDS (myelodysplastic syndrome) Pancytopenia Secondary pulmonary arterial hypertension Sensory neuropathy Home Medications omega-3 fatty acids-fish oil 340 mg-1,000 mg capsule (Fish Oil) 1 ea PO DAILY supplement 07/13/17 [History Last Taken 05/09/22] montelukast 10 mg tablet 10 mg PO QHS allergies 08/24/18 [History Last Taken 05/08/22] omeprazole 20 mg capsule,delayed release 40 mg PO DAILY GERD 08/24/18 [History Last Taken 05/09/22] pyridoxine (vitamin B6) 100 mg tablet 100 mg PO DAILY supplement 08/24/18 [History Last Taken 05/09/22] calcium carbonate 500 mg calcium (1,250 mg) tablet 500 mg PO DAILY supplement 05/30/20 [History Last Taken 05/09/22] cholecalciferol (vitamin D3) 50 mcg (2,000 unit) capsule 5,000 unit PO DAILY supplement 05/30/20 [History Last Taken 05/09/22] tadalafil 2.5 mg tablet 2.5 mg PO DAILY blood pressure 07/28/20 [History Last Taken 05/09/22] folic acid 1 mg tablet 1 ea PO DAILY supplement 08/13/21 [History Last Taken Unknown] tramadol 50 mg tablet (Ultram) 50 mg PO TID pain 08/13/21 [History Last Taken 05/09/22] ondansetron 4 mg disintegrating tablet 4 mg PO Q8H PRN nausea and vomiting #30 tabs 04/17/22 [Rx Last Taken Unknown] losartan 25 mg tablet 25 mg PO DAILY #90 tabs 04/26/22 [Rx Last Taken 05/09/22] decitabine 35 mg-cedazuridine 100 mg tablet (Inqovi) See Rx Instructions .Route .COMPLEX chemo 05/01/22 [History Last Taken 04/25/22] doxazosin 4 mg tablet 4 mg PO QHS bladder 05/01/22 [History Last Taken 05/08/22] docusate sodium 100 mg capsule (Colace) 200 mg PO BID constipation 05/09/22 [History Last Taken 05/09/22] sennosides 8.6 mg tablet (senna) 17.2 mg PO BID constipation 05/09/22 [History Last Taken 05/09/22] Allergy/AdvReac Type Severity Reaction Status Date / Time levofloxacin [From Levaquin] Allergy Other Verified 05/09/22 17:12 sulfamethoxazole AdvReac Other Verified 05/09/22 17:12 [From Bactrim] trimethoprim [From Bactrim] AdvReac Other Verified 05/09/22 17:12 Family History Sister Colon cancer Bleeding disorder Mother Heart disease Diabetes Father CVA (cerebral vascular accident), Onset Age: 95 Surgical History History of bone marrow biopsy History of hernia repair Social History (Updated 05/09/22 @ 17:[address] Jose Grimaldo MD) household members: spouse Smoking Status: Former smoker alcohol intake: never substance use type: does not use caffeine: Yes Type: coffee Number of servings: 3 what type of physical activity do you participate in: none shelley/sabianism: Tenriism seatbelt use: always do you feel safe at home: Yes ROS Constitutional Constitutional: Reports fatigue and fever(s); Denies chills, night sweats, poor appetite, weight gain or weight loss ENT HEENT: Denies dysphagia, hoarseness, loss taste/smell, odynophagia or sore throat Cardiovascular Cardiovascular: Denies chest pain, dyspnea, edema or palpitations Respiratory/Chest Respiratory/Chest: Denies cough, hemoptysis or pain on inspiration Gastrointestinal Gastrointestinal: Denies abdominal pain, change in bowel habits, diarrhea, hematochezia, melena, nausea or vomiting Genitourinary Genitourinary: Reports nocturia, urinary frequency and urinary hesitancy; Denies change in urinary stream, dysuria, hematuria or urinary incontinence Musculoskeletal Musculoskeletal: Denies back pain Integumentary Integumentary: Reports unusual bruising; Denies new lesions or rash Neurologic Neurologic: Denies abnormal speech, behavior changes, confusion, focal weakness, headache(s) or numbness Psychiatric Psychiatric: Denies anxiety Endocrine Endocrinology: Denies flushing Hematologic/Lymphatic Hematologic/Lymphatic: Reports easy bruising; Denies easy bleeding or lymphadenopathy Physical Exam Narrative ECOG 1 Const alert, oriented x3, no apparent distress, average body habitus and well nourished General Appearance: cooperative, comfortable, well kempt and well hydrated Orientation / Consciousness: oriented to person, oriented to place and oriented to time HEENT normocephalic, moist oral mucous membranes and oropharynx normal Head and Scalp: atraumatic Eyes conjunctivae normal and no scleral icterus Neck no lymphadenopathy and no JVD Lymph Lymphatic: no lymphadenopathy noted Resp normal respiratory effort and clear to auscultation bilaterally Effort and Inspection: able to speak in complete sentences Auscultation: Negative for rales or wheezes Cardio regular rate, regular rhythm and no JVD GI soft to palpation, non-tender and no masses Extremity no clubbing, cyanosis or edema Skin no rashes or lesions noted General Skin Exam: ecchymosis Neuro CN's II-XII intact bilaterally, moves all extremities and no focal motor deficits Psych mental status grossly normal, cooperative, affect normal and speech normal Vital Signs Temperature 99.2 F H 05/10/22 14:27 Temperature Source Temporal 05/10/22 14:27 Pulse Rate 67 05/10/22 14:27 Respiratory Rate 18 05/10/22 14:27 Respiratory Effort Non-Labored 05/09/22 22:43 Respiratory Pattern Normal 05/09/22 18:06 Blood Pressure 118/45 L 05/10/22 14:27 Blood Pressure Mean 69 05/10/22 14:27 Blood Pressure Source Monitor 05/10/22 14:27 Blood Pressure Position Semi-Fowlers 05/10/22 14:27 Blood Pressure Location Right Arm 05/10/22 14:27 Pulse Ox 97 05/10/22 14:27 Oxygen Delivery Method Room Air 05/10/22 14:27 Laboratory Results - last 24 hr 05/09/22 18:20: Urine Color Yellow, Urine Clarity Clear, Urine pH 7.0, Ur Specific [place] 1.010, Urine Protein Negative, Urine Glucose (UA) Normal, Urine Ketones Negative, Urine Occult Blood Negative, Urine Nitrite Negative, Urine Bilirubin Negative, Urine Urobilinogen Normal, Ur Leukocyte Esterase Negative, Urine RBC 0 SEEN, Urine WBC 0 SEEN, Ur Squamous Epith Cells 0 SEEN, Urine Bacteria RARE, Urine Mucus 0 SEEN 05/09/22 18:25: WBC 0.3 L*, RBC 2.19 L, Hgb 7.1 L, Hct 21.1 L, MCV 96.3 H, MCH 32.4 H, MCHC 33.6, RDW Std Deviation 62.3 H, RDW Coeff of Jcarlos 18.0 H, Plt Count 4 L*, MPV TNP, Immature Gran % (Auto) 0.000, Neut % (Auto) 10.7 L, Lymph % (Auto) 85.7 H, [place] % (Auto) 0.0, Eos % (Auto) 3.6, Baso % (Auto) 0.0, Absolute Neuts (auto) 0.0 L, Absolute Lymphs (auto) 0.24 L, Nucleated RBC % 0, Differential Comment SCANNED, Diff Path Review Reviewed 05/09/22 18:25: Sodium 136, Potassium 4.1, Chloride 103, Carbon Dioxide 30.0, Anion Gap 3 L, BUN 12, Creatinine 0.74, Estim Creat Clear Calc 63.88, Est GFR (MDRD) Af Amer 131, Est GFR (MDRD) Non-Af 108, BUN/Creatinine Ratio 16.1, Glucose 124 H, Calcium 8.9, Total Bilirubin 0.70, AST 19, ALT 41, Alkaline Phosphatase 94, Total Protein 6.3 L, Albumin 3.5, Globulin 2.8, Albumin/Globulin Ratio 1.2 05/09/22 18:25: Lactic Acid 0.7 05/09/22 18:25: Phosphorus 3.4, Magnesium 2.0 05/09/22 18:25: Procalcitonin 0.04 05/09/22 19:50: Blood Type B POSITIVE, Antibody Screen NEGATIVE, Crossmatch See Detail 05/09/22 19:50: Crossmatch See Detail 05/10/22 07:39: WBC 0.2 L*, RBC 2.08 L, Hgb 6.8 L, Hct 19.9 L, MCV 95.7 H, MCH 32.7 H, MCHC 34.2, RDW Std Deviation 59.6 H, RDW Coeff of Jcarlos 17.2 H, Plt Count 18 L*, MPV 10.1, Immature Gran % (Auto) 0.000, Neut % (Auto) 4.1 L, Lymph % (Auto) 91.7 H, [place] % (Auto) 0.0, Eos % (Auto) 4.2, Baso % (Auto) 0.0, Absolute Neuts (auto) 0.0 L, Absolute Lymphs (auto) 0.22 L, Nucleated RBC % 0, Differential Comment , Diff Path Review May bryon, Platelet Estimate MKD DEC, RBC Morphology NORM C+C 05/10/22 07:39: Sodium 136, Potassium 3.6, Chloride 103, Carbon Dioxide 27.0, Anion Gap 6, BUN 9, Creatinine 0.62 L, Estim Creat Clear Calc 63.88, Est GFR (MDRD) Af Amer 162, Est GFR (MDRD) Non-Af 134, BUN/Creatinine Ratio 14.6, Glucose 113 H, Calcium 8.0 L, Total Bilirubin 1.20 H, AST 17, ALT 31, Alkaline Phosphatase 66, Total Protein 5.3 L, Albumin 2.8 L, Globulin 2.5, Albumin/Globulin Ratio 1.1 Microbiology 05/09/22 18:20 Urine, Clean Catch Urine Culture - Preliminary GNR 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 No demonstrated acute cardiopulmonary process. Electronically Signed: Jian Manuel DO at 19:27 EDT Reading Location ID and State: [facility] / [place] Tel [phone], Service support ,
[2022-05-10] MEDS: Doxazosin 4 MG Tablet PO (23:42)
[2022-05-10] MEDS: Montelukast 10 MG Tablet PO (23:42)
[2022-05-11] MEDS: Senna/Docusate Sodium 1 Tablet 2 TABLET PO ×3 (00:19→21:30)
[2022-05-11 05:39] VITALS: BP 110/47; PULSE 62; RESP 18; TEMP 37.2; O2SAT 92
[2022-05-11] MEDS: traMADol 50 MG Tablet PO ×3 (05:47→21:30)
[2022-05-11 06:36] LABS: Absolute Lymphocyte Count 0.34 X10^3/uL (0.83-4.51); Eosinophil# 0.01 X10^3/uL; Eosinophils% 2.7 % (0-5); Hematocrit 22.6 % (40-54); Hemoglobin 7.6 g/dL (13.0-16.5); Lymphocyte # 0.34 X10^3/ul (0.83-4.51); Lymphocyte % 91.9 % (19-41); Mean Corp Hgb Conc 33.6 g/dL (32-36); Mean Corpuscular Hgb 32.1 pg (27.0-32.0); Mean Corpuscular Volume 95.4 fL (80-94); Mean Platelet Vol. 13.3 fl (6.2-12.0); NRBC Flagged by Analyzer 0 % (0-5); Neutrophil # 0.02 X10^3/uL (2.7-7.7); Neutrophil % 5.4 % (47-70); POSITIVE COUNT YES; POSITIVE DIFFERENTIAL YES; RBC Distribution Width CV 17.1 % (11.6-14.6); RBC Distribution Width SD 58.6 fl (35.1-43.9); Red Blood Count 2.37 M/mm3 (4.6-6.2)
[2022-05-11 06:53] LABS: Anion Gap 4 (5-15); BUN 12 mg/dL (7-18); BUN/Creat Ratio 15.7 RATIO (10-20); Calcium,Total 8.3 mg/dL (8.5-10.1); Chloride 104 mmol/L (98-107); Creatinine, Serum 0.77 mg/dL (0.70-1.30); Differential Indicated SCAN CRITERIA MET; EST Glomerular Filtration Rate 105 mL/min (>60); Est Glom Filt Rate - Afr Amer 126 mL/min (>60); Estimated Creatinine Clearance 63.88 ml/min; Glucose 109 mg/dL (74-106); Potassium 3.7 mmol/L (3.5-5.1); Sodium Level 135 mmol/L (136-145)
[2022-05-11 06:54] LABS: Platelet Count 15 K/mm3 (150-450); White Blood Count 0.4 K/mm3 (4.4-11.0)
[2022-05-11 07:00] VITALS: O2SAT 92
[2022-05-11 07:10] LABS: Differential Comment SCANNED
--- NOTE | 2022-05-11 10:24 | PCM.PN.HOSP ---
Documented by User: Ritu Scherer NP, FURNACE ROASTER-C 05/11/22 10:29 Subjective Subjective Patient seen and examined. Reports intermittent fever, chills. Denies other symptoms or complaints. States he is overall feeling improved. Objective Data Objective Data Vital Signs: Vital Signs Temp Pulse Resp BP Pulse Ox O2 Del Method 99.0 F 62 18 110/47 L 92 Room Air 05/11/22 05:39 05/11/22 05:39 05/11/22 05:39 05/11/22 05:39 05/11/22 07:00 05/11/22 07:00 Oxygen Delivery Method Room Air Weight: 169 lb 15.622 oz Body Mass Index (BMI) 24.4 Intake & Output: Intake and Output for Last 24 Hours 05/09/22 05/10/22 05/11/22 23:59 23:59 23:59 Intake Total 1100 / 1100 1700 / 2200 600 / 600 Output Total 600 / 600 250 / 250 Balance 1100 / 1100 1100 / 1600 350 / 350 Lab / Micro Data Result Diagrams: 05/11/22 05:55 05/11/22 05:55 Labs: Laboratory Results - last 24 hr 05/09/22 18:25: Diff Path Review Reviewed 05/09/22 19:50: Crossmatch See Detail 05/11/22 05:55: WBC 0.4 L*, RBC 2.37 L, Hgb 7.6 L, Hct 22.6 L, MCV 95.4 H, MCH 32.1 H, MCHC 33.6, RDW Std Deviation 58.6 H, RDW Coeff of Jcarlos 17.1 H, Plt Count 15 L*, MPV 13.3 H, Immature Gran % (Auto) 0.000, Neut % (Auto) 5.4 L, Lymph % (Auto) 91.9 H, [place] % (Auto) 0.0, Eos % (Auto) 2.7, Baso % (Auto) 0.0, Absolute Neuts (auto) 0.0 L, Absolute Lymphs (auto) 0.34 L, Nucleated RBC % 0, Differential Comment SCANNED, Diff Path Review March05/11/22 05:55: Sodium 135 L, Potassium 3.7, Chloride 104, Carbon Dioxide 27.0, Anion Gap 4 L, BUN 12, Creatinine 0.77, Estim Creat Clear Calc 63.88, Est GFR (MDRD) Af Amer 126, Est GFR (MDRD) Non-Af 105, BUN/Creatinine Ratio 15.7, Glucose 109 H, Calcium 8.3 L Micro: Microbiology 05/09/22 18:20 Urine, Clean Catch Urine Culture - Final Mixed Gram Pos & Gram Neg Org Rhythm Strip Rhythm Strip: Sinus Rhythm Rate: 76 Ectopy: None Physical Exam Const alert, oriented x3 and no apparent distress Orientation / Consciousness: awake, oriented to person, oriented to place and oriented to time HEENT normocephalic and moist oral mucous membranes Eyes PERRL, EOMs intact bilaterally and conjunctivae normal Neck no lymphadenopathy Resp normal respiratory effort and clear to auscultation bilaterally Cardio regular rate, regular rhythm and no murmurs Peripheral Pulses: pulses 2+ throughout GI normal to inspection, nondistended, normoactive bowel sounds, non-tender and non-distended Extremity normal to inspection Skin no rashes or lesions noted Lesions: no lesions Rashes: no rashes Trauma: no lacerations or abrasions Neuro CN's II-XII intact bilaterally, no focal motor deficits, no sensory deficits noted and deep tendon reflexes 2+ bilaterally Psych mental status grossly normal and affect normal Assessment & Plan Assessment/Plan (1) Pancytopenia: PLAN: Plan 1.? Acute neutropenic fever, secondary to suspected UTI-on IV cefepime.? Urine and blood cultures pending. 2. 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 Alfaro.? Oncology consulted.?S/P 2 unit PRBC and 2 units platelets.? Counts improving. Trend CBC. 3. Hypertension-continue losartan. 4. Pulmonary hypertension-on tadalafil. 5. GERD-continue PPI. DVT prophylaxis-deferred given pancytopenia This patient was seen by CEDRIC Kearns under the supervision of Dr. Mcadams. Time spent examining patient, reviewing data and subsequent management of care: 12 minutes Documented by User: Dr. Crispin Mcadams MD 05/11/22 16:34 Subjective Subjective Patient seen and examined. Reports intermittent fever, chills. Denies other symptoms or complaints. States he is overall feeling improved. Seen and examined. Follow-up for neutropenic fever Patient intermittent fever or chills. Patient had burning micturition but has resolved now. Objective Data Lab / Micro Data Result Diagrams: 05/11/22 05:55 05/11/22 05:55 Labs: Laboratory Results - last 24 hr 05/09/22 18:25: Diff Path Review Reviewed 05/09/22 19:50: Crossmatch See Detail 05/11/22 05:55: WBC 0.4 L*, RBC 2.37 L, Hgb 7.6 L, Hct 22.6 L, MCV 95.4 H, MCH 32.1 H, MCHC 33.6, RDW Std Deviation 58.6 H, RDW Coeff of Jcarlos 17.1 H, Plt Count 15 L*, MPV 13.3 H, Immature Gran % (Auto) 0.000, Neut % (Auto) 5.4 L, Lymph % (Auto) 91.9 H, [place] % (Auto) 0.0, Eos % (Auto) 2.7, Baso % (Auto) 0.0, Absolute Neuts (auto) 0.0 L, Absolute Lymphs (auto) 0.34 L, Nucleated RBC % 0, Differential Comment SCANNED, Diff Path Review March05/11/22 05:55: Sodium 135 L, Potassium 3.7, Chloride 104, Carbon Dioxide 27.0, Anion Gap 4 L, BUN 12, Creatinine 0.77, Estim Creat Clear Calc 63.88, Est GFR (MDRD) Af Amer 126, Est GFR (MDRD) Non-Af 105, BUN/Creatinine Ratio 15.7, Glucose 109 H, Calcium 8.3 L Physical Exam Narrative General: Awake, fatigue.? Low pitched voice. HEENT: Atraumatic, PERRLA, EOMI, Normocephalic Oral: No Gingival or Mucosal Lesions/ Ulcerations Neck: Supple, No JVD, Negative Carotid Bruits Lungs:? Air entry diminished in bilateral lung bases.? Mild dyspnea on exertion no crepitation/rhonchi Cardiovascular: BP on lower side.? Regular rate, Regular Rhythm, Normal S1, Normal S2, No murmurs Abdomen: Bowel Sounds Present, Soft, Non Tender, Non-Distended : On perineal exam no deep tenderness of scrotum or urethra. No renal angle tenderness.? No suprapubic tenderness. Extremities: No edema, Capillary Refill Less than 3 Seconds Skin: No rashes, No breakdown Musculoskeletal: No Tenderness to Palpation of Joints or Extremities Neurological: Cranial nerves II-XII grossly intact, DTR? 2+/4 and Symmetrical, Neuro grossly intact Psych/Mental Status: Flat affect Assessment & Plan Assessment/Plan (1) Pancytopenia: PLAN: Plan 1.? Acute neutropenic fever, secondary to suspected UTI-on IV cefepime.? Urine and blood cultures pending. 2. 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 Alfaro.? Oncology consulted.?S/P 2 unit PRBC and 2 units platelets.? Counts improving. Trend CBC. 3. Hypertension-continue losartan. 4. Pulmonary hypertension-on tadalafil. 5. GERD-continue PPI. DVT prophylaxis-deferred given pancytopenia This patient was seen by Ritu Scherer NP-C under the supervision of Dr. Mcadams. This patient was seen in conjunction with FURNACE ROASTER, Ritu.? I have independently interviewed and examined the patient and reviewed pertinent history, examination findings, laboratory and plan of management.? I have? reviewed the note and agree with the documented findings with the few? additional points. In brief, patient is 76-year-old admitted with acute neutropenic fever: 1.? Acute neutropenic fever secondary to suspected UTI: Patient is on IV's cefepime.? Follow-up blood cultures and urine culture.? 2.? Acute pancytopenia secondary to MDS?ringed sideroblasts, WaldenStrom macroglobulinemia with progression to bone possible bony metastasis/progression to multiple myeloma: Patient has history of MDS diagnosed in 2015, [place] Yoko macroglobulinemia and neuropathy with bone marrow biopsy in 2018 showed hypercellular marrow, MDS with ringed sideroblasts.? MRI genitourinary shows diffuse abnormal T1-T2 hyperintensity of vertebral bodies and posterior elements of lumbar spine, sacrum and 11/2 possible diffuse metastatic bone disease or progression to multiple myeloma.? CT scan on 02/27/2022 shows mediastinal lymphadenopathy moderate splenomegaly.?PET/CT done 03/27/2022 was negative.? Discussed with oncologist.? 05/11: Patient was evaluated by oncologist. As patient has primary bone marrow disorder, MDS therefore not going to respond with growth factors therefore not indicated. 3.? Hypertension: Blood pressure on lower side.? Hold antihypertensive medication until systolic blood pressure is more than 130. 05/11: Blood pressure better than yesterday 4.? Pulmonary hypertension on tadalafil. Other comorbidities as mentioned above I have discussed my assessment with Ritu GONZALEZ and orders have been reviewed. Total time of the visit including total time spent in counseling or coordination of care, (more than 50% of the total time, spent in obtaining medical information from nurses and other ancillary care providers,explaining to the patient about labs, imaging, diagnosis and management), discussion with oncologist, review of labs and imaging is? 42 minutes.? I spent 30 minutes and CARLOS Chaney spent 12 minutes Charges/Coding Visit Charges Inpatient E&M: 69712 Subs Hosp L3
[2022-05-11] MEDS: Pyridoxine HCl 100 MG Tablet PO (10:59)
[2022-05-11] MEDS: Folic Acid 1 MG Tablet PO (11:00)
[2022-05-11] MEDS: Pantoprazole Sodium 40 MG Tablet PO (11:00)
[2022-05-11] MEDS: Losartan Potassium 25 MG Tablet PO (11:00)
[2022-05-11] MEDS: Calcium (Elemental) 500 MG Tablet PO (11:00)
[2022-05-11] MEDS: Cholecalciferol (Vit D3) 125 MCG CAPSULE (5,000 UNITS) PO (11:00)
[2022-05-11] MEDS: Acetaminophen 325 MG Tablet 650 MG PO ×2 (11:11→17:49)
[2022-05-11] MEDS: TBO-FILGRASTIM 480 MCG/0.8 ML ML SC (11:12)
[2022-05-11 11:39] VITALS: BP 110/70; PULSE 65; RESP 16; TEMP 36.7; O2SAT 95
[2022-05-11] MEDS: CLARIFY ORDER NOTE (13:55)
[2022-05-11 17:00] VITALS: BP 128/54; PULSE 50; RESP 14; TEMP 37; O2SAT 98
[2022-05-11] MEDS: 0.9% Saline Lock 10 ML Syringe IV (21:29)
[2022-05-11] MEDS: Doxazosin 4 MG Tablet PO (21:30)
[2022-05-11 22:15] VITALS: BP 128/53; PULSE 66; RESP 16; TEMP 37.3; O2SAT 97
[2022-05-12] VITALS (9 sets, daily range): BP systolic 119–160; BP diastolic 54–78; PULSE 66–87; RESP 14–17; TEMP 36.6–37.7; O2SAT 93–96
[2022-05-12] MEDS: Acetaminophen 325 MG Tablet 650 MG PO (03:07)
[2022-05-12] MEDS: Montelukast 10 MG Tablet PO ×2 (03:07→22:30)
[2022-05-12 05:49] LABS: Eosinophil# 0.01 X10^3/uL; Eosinophils% 2.9 % (0-5); Hematocrit 22.2 % (40-54); Hemoglobin 7.4 g/dL (13.0-16.5); Lymphocyte % 85.7 % (19-41); Mean Corp Hgb Conc 33.3 g/dL (32-36); Mean Corpuscular Hgb 31.8 pg (27.0-32.0); Mean Corpuscular Volume 95.3 fL (80-94); Monocyte# 0.01 X10^3/uL; Monocyte% 2.9 % (0-10); NRBC Flagged by Analyzer 0 % (0-5); Neutrophil # 0.03 X10^3/uL (2.7-7.7); Neutrophil % 8.5 % (47-70); POSITIVE COUNT YES; POSITIVE DIFFERENTIAL YES; POSITIVE MORPHOLOGY YES; RBC Distribution Width CV 16.9 % (11.6-14.6); RBC Distribution Width SD 58.8 fl (35.1-43.9); Red Blood Count 2.33 M/mm3 (4.6-6.2)
[2022-05-12] MEDS: traMADol 50 MG Tablet PO ×3 (06:07→22:28)
[2022-05-12 06:10] LABS: Anion Gap 9 (5-15); BUN 12 mg/dL (7-18); BUN/Creat Ratio 17.1 RATIO (10-20); Calcium,Total 8.2 mg/dL (8.5-10.1); Chloride 103 mmol/L (98-107); EST Glomerular Filtration Rate 116 mL/min (>60); Est Glom Filt Rate - Afr Amer 140 mL/min (>60); Estimated Creatinine Clearance 63.88 ml/min; Glucose 121 mg/dL (74-106); Potassium 3.9 mmol/L (3.5-5.1); Sodium Level 136 mmol/L (136-145)
[2022-05-12 06:15] LABS: Differential Indicated SCAN CRITERIA MET; Platelet Count 15 K/mm3 (150-450); White Blood Count 0.4 K/mm3 (4.4-11.0)
[2022-05-12 06:40] LABS: Differential Comment SCANNED; Platelet Estimate MKD DEC (ADEQ)
[2022-05-12 06:41] LABS: Hypochromasia 1+
[2022-05-12] MEDS: Cholecalciferol (Vit D3) 125 MCG CAPSULE (5,000 UNITS) PO (07:44)
[2022-05-12] MEDS: Pantoprazole Sodium 40 MG Tablet PO (07:45)
[2022-05-12] MEDS: Calcium (Elemental) 500 MG Tablet PO (07:45)
[2022-05-12] MEDS: Pyridoxine HCl 100 MG Tablet PO (07:45)
[2022-05-12] MEDS: Folic Acid 1 MG Tablet PO (07:45)
[2022-05-12] MEDS: Senna/Docusate Sodium 1 Tablet 2 TABLET PO (07:48)
--- NOTE | 2022-05-12 09:55 | PN.HOSP_ITS ---
Documented by User: Ritu Scherer NP, TRAINING PROJECT MANAGER-C 05/12/22 10:01 Subjective Subjective Patient seen and examined. Continues to report nighttime fever, chills. States he did not sleep well overnight. Denies urinary symptoms. Denies upper respiratory symptoms. Objective Data Objective Data Vital Signs: Vital Signs Temp Pulse Resp BP Pulse Ox O2 Del Method 97.9 F 67 14 129/54 H 93 Room Air 05/12/22 07:39 05/12/22 07:39 05/12/22 07:39 05/12/22 07:39 05/12/22 07:39 05/12/22 08:42 Oxygen Delivery Method Room Air Weight: 170 lb 3.15 oz Body Mass Index (BMI) 24.4 Intake & Output: Intake and Output for Last 24 Hours 05/10/22 05/11/22 05/12/22 23:59 23:59 23:59 Intake Total 1700 / 2200 1050 / 1050 Output Total 600 / 600 250 / 500 970 / 970 Balance 1100 / 1600 800 / 550 -970 / -970 Lab / Micro Data Result Diagrams: 05/12/22 05:02 05/12/22 05:02 Labs: Laboratory Results - last 24 hr 05/12/22 05:02: WBC 0.4 L*, RBC 2.33 L, Hgb 7.4 L, Hct 22.2 L, MCV 95.3 H, MCH 31.8, MCHC 33.3, RDW Std Deviation 58.8 H, RDW Coeff of Jcarlos 16.9 H, Plt Count 15 L*, MPV TNP, Immature Gran % (Auto) 0.000, Neut % (Auto) 8.5 L, Lymph % (Auto) 85.7 H, [place] % (Auto) 2.9, Eos % (Auto) 2.9, Baso % (Auto) 0.0, Absolute Neuts (auto) 0.0 L, Absolute Lymphs (auto) 0.30 L, Nucleated RBC % 0, Differential Comment SCANNED, Diff Path Review May bryon, Platelet Estimate MKD DEC, Hypochromasia 1+ 05/12/22 05:02: Sodium 136, Potassium 3.9, Chloride 103, Carbon Dioxide 24.0, Anion Gap 9, BUN 12, Creatinine 0.70, Estim Creat Clear Calc 63.88, Est GFR (MDRD) Af Amer 140, Est GFR (MDRD) Non-Af 116, BUN/Creatinine Ratio 17.1, Gluc ose 121 H, Calcium 8.2 L Micro: Microbiology 05/09/22 20:35 Blood Culture (Wb) - Right Hand Blood Culture - Preliminary No growth in 48 hours. 05/09/22 20:30 Blood Culture (Wb) - Right Forearm Blood Culture - Preliminary No growth in 48 hours. 05/10/22 20:40 Urine, Clean Catch Urine Culture - Preliminary Culture exhibits no growth. 05/09/22 18:20 Urine, Clean Catch Urine Culture - Final Mixed Gram Pos & Gram Neg Org Rhythm Strip Rhythm Strip: Sinus Rhythm Rate: 76 Ectopy: None Physical Exam Const alert, oriented x3 and no apparent distress Orientation / Consciousness: awake, oriented to person, oriented to place and oriented to time HEENT normocephalic and moist oral mucous membranes Eyes PERRL, EOMs intact bilaterally and conjunctivae normal Neck no lymphadenopathy Resp normal respiratory effort and clear to auscultation bilaterally Cardio regular rate, regular rhythm and no murmurs Peripheral Pulses: pulses 2+ throughout GI normal to inspection, nondistended, normoactive bowel sounds, non-tender and non-distended Extremity normal to inspection Skin no rashes or lesions noted Lesions: no lesions Rashes: no rashes Trauma: no lacerations or abrasions Neuro CN's II-XII intact bilaterally, no focal motor deficits, no sensory deficits noted and deep tendon reflexes 2+ bilaterally Psych mental status grossly normal and affect normal Assessment & Plan Assessment/Plan (1) Pancytopenia: PLAN: Plan 1.? Acute neutropenic fever-UTI ruled out. CXR unremarkable. on IV cefepime empirically until neutrophil at or above 1000 for 3 days.? Urine and blood cultures without growth thus far. 2. 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 Alfaro.? Oncology consulted.? Per oncology, growth factor not indicated since primary stem cell bone marrow disease. Supportive blood product transfusions to maintain hemoglobin at or above 8. Additional 1 unit PRBC ordered. Trend CBC. 3. Hypertension-continue losartan. 4. Pulmonary hypertension-on tadalafil. 5. GERD-continue PPI. DVT prophylaxis-deferred given pancytopenia This patient was seen by Ritu Gilmer, TRAINING PROJECT MANAGER-C under the supervision of Dr. Mcadams. Time spent examining patient, reviewing data and subsequent management of care: 12 minutes Documented by User: Dr. Crispin Mcadams MD 05/12/22 14:32 Subjective Subjective Patient seen and examined. Continues to report nighttime fever, chills. States he did not sleep well overnight. Denies urinary symptoms. Denies upper respiratory symptoms. Seen and examined. Patient continues to spike fever. Hemoglobin has dropped. Patient has mild cough occasional but denies bringing up phlegm, chest congestion tightness, labored breathing or shortness of breath. Objective Data Lab / Micro Data Result Diagrams: 05/12/22 05:02 05/12/22 05:02 Labs: Laboratory Results - last 24 hr 05/12/22 05:02: WBC 0.4 L*, RBC 2.33 L, Hgb 7.4 L, Hct 22.2 L, MCV 95.3 H, MCH 31.8, MCHC 33.3, RDW Std Deviation 58.8 H, RDW Coeff of Jcarlos 16.9 H, Plt Count 15 L*, MPV TNP, Immature Gran % (Auto) 0.000, Neut % (Auto) 8.5 L, Lymph % (Auto) 85.7 H, [place] % (Auto) 2.9, Eos % (Auto) 2.9, Baso % (Auto) 0.0, Absolute Neuts (auto) 0.0 L, Absolute Lymphs (auto) 0.30 L, Nucleated RBC % 0, Differential Comment SCANNED, Diff Path Review May foll, Platelet Estimate MKD DEC, Hypoch romasia 1+ 05/12/22 05:02: Sodium 136, Potassium 3.9, Chloride 103, Carbon Dioxide 24.0, Anion Gap 9, BUN 12, Creatinine 0.70, Estim Creat Clear Calc 63.88, Est GFR (MDRD) Af Amer 140, Est GFR (MDRD) Non-Af 116, BUN/Creatinine Ratio 17.1, Glucose 121 H, Calcium 8.2 L Physical Exam Narrative General: Awake, alert, oriented x3 HEENT: Atraumatic, PERRLA, EOMI, Normocephalic Oral: No Gingival or Mucosal Lesions/ Ulcerations Neck: Supple, No JVD, Negative Carotid Bruits Lungs:? Air entry diminished in bilateral lung bases.? no crepitation/rhonchi Cardiovascular: Regular rate, Regular Rhythm, Normal S1, Normal S2, No murmurs Abdomen: Bowel Sounds Present, Soft, Non Tender, Non-Distended : No perineal/urethral tenderness. No renal angle tenderness.? No suprapubic tenderness. Extremities: No edema, Capillary Refill Less than 3 Seconds Skin: No rashes, No breakdown Musculoskeletal: No Tenderness to Palpation of Joints or Extremities Neurological: Cranial nerves II-XII grossly intact, DTR? 2+/4 and Symmetrical, Neuro grossly intact Psych/Mental Status: Flat affect Assessment & Plan Assessment/Plan (1) Pancytopenia: PLAN: Plan 1.? Acute neutropenic fever-UTI ruled out. CXR unremarkable. on IV cefepime empirically until neutrophil at or above 1000 for 3 days.? Urine and blood cultures without growth thus far. 2. 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 Alfaro.? Oncology consulted.? Per oncology, growth factor not indicated since primary stem cell bone marrow disease. Supportive blood product transfusions to maintain hemoglobin at or above 8. Additional 1 unit PRBC ordered. Trend CBC. 3. Hypertension-continue losartan. 4. Pulmonary hypertension-on tadalafil. 5. GERD-continue PPI. DVT prophylaxis-deferred given pancytopenia This patient was seen by CEDRIC Kearns under the supervision of Dr. Mcadams. Time spent examining patient, reviewing data and subsequent management of care: 12 minutes This patient was seen in conjunction with Ritu GONZALEZ.? I have independently interviewed and examined the patient and reviewed pertinent history, examination findings, laboratory and plan of management.? I have? reviewed the note and agree with the documented findings with the few? additional points. In brief, patient is 76-year-old admitted with acute neutropenic fever: 1.? Acute neutropenic fever secondary to suspected UTI: Patient is on IV's cefepime.? Follow-up blood cultures and urine culture.? 2.? Acute pancytopenia secondary to MDS?ringed sideroblasts, Walden[place]rom macroglobulinemia with progression to bone possible bony metastasis/progression to multiple myeloma: Patient has history of MDS diagnosed in 2015, [place] Yoko macroglobulinemia and neuropathy with bone marrow biopsy in 2018 showed hypercellular marrow, MDS with ringed sideroblasts.? MRI genitourinary shows diffuse abnormal T1-T2 hyperintensity of vertebral bodies and posterior elements of lumbar spine, sacrum and 11/2 possible diffuse metastatic bone disease or progression to multiple myeloma.? CT scan on 02/27/2022 shows mediastinal lymphadenopathy moderate splenomegaly.?PET/CT done 03/27/2022 was negative.? Discussed with oncologist.? 05/11: Patient was evaluated by oncologist.? As patient has primary bone marrow disorder, MDS therefore not going to respond with growth factors therefore not indicated. 05/12: Patient spiking low-grade fever T-max 99.2 Fahrenheit. Continue IV ant ibiotic. Urine culture shows no growth. Blood cultures negative for more than 48 hours. Hemoglobin dropped to 7.4, WBC 0.4 thousand, ANC 0.0, platelet count 15,000. 1 unit PRBC transfusion ordered. Monitor CBC daily 3.? Hypertension: Blood pressure on lower side.? Hold antihypertensive medicat ion until systolic blood pressure is more than 130. 05/11: Blood pressure better than yesterday 05/12: BP 134/60. Improving 4.? Pulmonary hypertension on tadalafil. Other comorbidities as mentioned above I have discussed my assessment with TRAINING PROJECT MANAGERRitu and orders have been reviewed. Total time of the visit including total time spent in counseling or coordination of care, (more than 50% of the total time, spent in obtaining medical information from nurses and other ancillary care providers,explaining to the patient about labs, imaging, diagnosis and management), discussion with oncologist, review of labs and imaging is? 42 minutes.? I spent 30 minutes and CARLOS Chaney spent 12 minutes Microbiology Past 72 Hours 05/09/22 20:35 Blood Culture (Wb) - Right Hand Blood Culture - Preliminary No growth in 48 hours. 05/09/22 20:30 Blood Culture (Wb) - Right Forearm Blood Culture - Preliminary No growth in 48 hours. 05/10/22 20:40 Urine, Clean Catch Urine Culture - Preliminary Culture exhibits no growth. 05/09/22 18:20 Urine, Clean Catch Urine Culture - Final Mixed Gram Pos & Gram Neg Org Laboratory Results 05/09/22 19:50: Crossmatch See Detail 05/09/22 19:50: Crossmatch See Detail 05/12/22 05:02: WBC 0.4 L*, RBC 2.33 L, Hgb 7.4 L, Hct 22.2 L, MCV 95.3 H, MCH 31.8, MCHC 33.3, RDW Std Deviation 58.8 H, RDW Coeff of Jcarlos 16.9 H, Plt Count 15 L*, MPV TNP, Immature Gran % (Auto) 0.000, Neut % (Auto) 8.5 L, Lymph % (Auto) 85.7 H, [place] % (Auto) 2.9, Eos % (Auto) 2.9, Baso % (Auto) 0.0, Absolute Neuts (auto) 0.0 L, Absolute Lymphs (auto) 0.30 L, Nucleated RBC % 0, Differential Comment SCANNED, Diff Path Review May bryon, Platelet Estimate MKD DEC, Hypochromasia 1+ 05/12/22 05:02: Sodium 136, Potassium 3.9, Chloride 103, Carbon Dioxide 24.0, Anion Gap 9, BUN 12, Creatinine 0.70, Estim Creat Clear Calc 63.88, Est GFR (MDRD) Af Amer 140, Est GFR (MDRD) Non-Af 116, BUN/Creatinine Ratio 17.1, Glucose 121 H, Calcium 8.2 L Charges/Coding Visit Charges Inpatient E&M: 74488 Subs Hosp L3
[2022-05-12] MEDS: CLARIFY ORDER NOTE (09:59)
[2022-05-12] MEDS: 0.9% Saline Lock 10 ML Syringe IV (22:28)
[2022-05-12] MEDS: Doxazosin 4 MG Tablet PO (22:30)
[2022-05-13] MEDS: MELATONIN 3 MG TABLET PO (00:15)
[2022-05-13 02:40] VITALS: BP 128/49; PULSE 74; RESP 16; TEMP 37; O2SAT 92
[2022-05-13 06:59] LABS: Absolute Lymphocyte Count 0.29 X10^3/uL (0.83-4.51); Eosinophil# 0.01 X10^3/uL; Eosinophils% 2.9 % (0-5); Hematocrit 24.4 % (40-54); Hemoglobin 8.3 g/dL (13.0-16.5); Lymphocyte # 0.29 X10^3/ul (0.83-4.51); Lymphocyte % 85.3 % (19-41); Mean Corpuscular Volume 94.2 fL (80-94); NRBC Flagged by Analyzer 0 % (0-5); Neutrophil # 0.03 X10^3/uL (2.7-7.7); Neutrophil % 8.9 % (47-70); POSITIVE COUNT YES; POSITIVE DIFFERENTIAL YES; POSITIVE MORPHOLOGY YES; RBC Distribution Width CV 17.1 % (11.6-14.6); RBC Distribution Width SD 58.1 fl (35.1-43.9); Red Blood Count 2.59 M/mm3 (4.6-6.2)
[2022-05-13] MEDS: traMADol 50 MG Tablet PO ×3 (07:07→21:36)
[2022-05-13 07:11] LABS: Differential Indicated SCAN CRITERIA MET; Platelet Count 20 K/mm3 (150-450); White Blood Count 0.3 K/mm3 (4.4-11.0)
[2022-05-13 07:23] LABS: Anion Gap 7 (5-15); BUN 12 mg/dL (7-18); BUN/Creat Ratio 18.9 RATIO (10-20); Calcium,Total 7.9 mg/dL (8.5-10.1); Chloride 105 mmol/L (98-107); Creatinine, Serum 0.64 mg/dL (0.70-1.30); EST Glomerular Filtration Rate 130 mL/min (>60); Est Glom Filt Rate - Afr Amer 157 mL/min (>60); Estimated Creatinine Clearance 63.88 ml/min; Glucose 115 mg/dL (74-106); Potassium 3.8 mmol/L (3.5-5.1); Sodium Level 135 mmol/L (136-145)
[2022-05-13 07:45] LABS: Anisocytosis 1+; Hypochromasia 1+; Platelet Estimate MKD DEC (ADEQ)
[2022-05-13] MEDS: Pantoprazole Sodium 40 MG Tablet PO (08:08)
[2022-05-13] MEDS: Calcium (Elemental) 500 MG Tablet PO (08:08)
[2022-05-13] MEDS: Pyridoxine HCl 100 MG Tablet PO (08:09)
[2022-05-13] MEDS: Folic Acid 1 MG Tablet PO (08:09)
[2022-05-13] MEDS: Cholecalciferol (Vit D3) 125 MCG CAPSULE (5,000 UNITS) PO (08:09)
[2022-05-13] MEDS: Acetaminophen 325 MG Tablet 650 MG PO (08:14)
[2022-05-13 08:15] VITALS: BP 127/58; PULSE 71; RESP 14; TEMP 36.8; O2SAT 93
--- NOTE | 2022-05-13 11:52 | DCINST_ITS ---
Discharge Instructions Diet Discharge Diet: No restrictions Activity Discharge Activity: Return to Normal Activity Dressing / Incision Call your doctor if you observe: Fever of 101 or Higher Follow Up Care Test Results: Test results from this visit will be discussed in further detail at your follow- up appointment, if applicable. Discharge Plan Admission Admit Date/Time: 05/09/22 20:57 Primary Reason for Your Visit: Neutropenic fever Attending Provider: Lalo Emery Primary Care Provider: Sunday Carter Consulting Providers: Neo Franks ; Subhash Alfaro ; Lary Russo ; Fritz Obrien ; Bakari Saeed ; Ilan Freitas ; Henok Lopez ; Delisa Francis NP ; Lisa Armstrong ; Crispin Mcadams Discharge Orders/Prescriptions Prescriptions: Continued tramadol [Ultram] 50 mg tablet 50 mg PO TID Label Comments: TAKE 1 TABLET BY MOUTH EVERY 6 HOURS NEEDED FOR PAIN folic acid 1 mg tablet 1 ea PO DAILY Label Comments: TAKE 1 TABLET BY MOUTH ONCE DAILY losartan 25 mg tablet 25 mg PO DAILY Qty: 90 3RF ondansetron 4 mg tablet,disintegrating 4 mg PO Q8H PRN (Reason: nausea and vomiting) Qty: 30 2RF Fish Oil 1 EACH capsule 1 ea PO DAILY omeprazole 20 MG capsule 40 mg PO DAILY montelukast 10 MG tablet 10 mg PO QHS pyridoxine (vitamin B6) 100 MG tablet 100 mg PO DAILY calcium carbonate 500 MG tablet 500 mg PO DAILY cholecalciferol (vitamin D3) 2,000 UNIT capsule 5,000 unit PO DAILY tadalafil 2.5 MG tablet 2.5 mg PO DAILY Inqovi 35-100 mg tablet See Rx Instructions .ROUTE .COMPLEX Rx Instructions: 1 TAB orally ;x5 days then off 21 days doxazosin 4 mg tablet 4 mg PO QHS sennosides [senna] 8.6 mg Tablet 17.2 mg PO BID docusate sodium [Colace] 100 mg Capsule 200 mg PO BID Referrals / Follow Up: Subhash Alfaro MD [NON-STAFF] - See Referral Note (As scheduled 05/15/2022 for repeat labs, make follow-up appointment as well.) Sunday Carter PA [Primary Care Provider] - In 1 Week Disposition Disposition (needs filled in before D/C Order can be placed): Home, Self Care
--- NOTE | 2022-05-13 13:07 | DS.PCM_ITS ---
Providers Date of Admission: 05/09/22 Date of Discharge: 05/13/22 Primary Care Physician: MENDEL Markham Consultations 05/09/22 22:42 Consult: Oncology/Hematology Routine Consulting Provider: [facility] ([facility]) Reason for Consult: Neutropenic fever, susp UTI, pancytopenia, recent chemo EMERGENT Consult: No MD Notified: Yes Date Notified: 05/09/22 Time Notified: 21:13 Method of Notification: ED Physician Initiated Reason For Visit: NEUTROPENIC FEVER, PANCYTOPENIA, UTI Diagnosis Discharge Diagnosis (1) Pancytopenia: Status: Acute Code(s): D61.818 - Other pancytopenia Medications at Discharge Home Medications omega-3 fatty acids-fish oil 340 mg-1,000 mg capsule (Fish Oil) 1 ea PO DAILY supplement 05/22/17 montelukast 10 mg tablet 10 mg PO QHS allergies 08/24/18 omeprazole 20 mg capsule,delayed release 40 mg PO DAILY GERD 08/24/18 pyridoxine (vitamin B6) 100 mg tablet 100 mg PO DAILY supplement 08/24/18 calcium carbonate 500 mg calcium (1,250 mg) tablet 500 mg PO DAILY supplement 05/30/20 cholecalciferol (vitamin D3) 50 mcg (2,000 unit) capsule 5,000 unit PO DAILY supplement 05/30/20 tadalafil 2.5 mg tablet 2.5 mg PO DAILY blood pressure 07/28/20 folic acid 1 mg tablet 1 ea PO DAILY supplement 08/13/21 tramadol 50 mg tablet (Ultram) 50 mg PO TID pain 08/13/21 ondansetron 4 mg disintegrating tablet 4 mg PO Q8H PRN nausea and vomiting #30 tabs 04/17/22 losartan 25 mg tablet 25 mg PO DAILY #90 tabs 04/26/22 decitabine 35 mg-cedazuridine 100 mg tablet (Inqovi) See Rx Instructions .Route .COMPLEX chemo 05/01/22 doxazosin 4 mg tablet 4 mg PO QHS bladder 05/01/22 docusate sodium 100 mg capsule (Colace) 200 mg PO BID constipation 05/09/22 sennosides 8.6 mg tablet (senna) 17.2 mg PO BID constipation 05/09/22 Hospital Course Operations None Procedures None Summary of Care Provided Hospital Course: Patient is a 76 year old male admitted 05/09/22 due to fever. 1.? Acute neutropenic fever-UTI ruled out. CXR unremarkable. on IV cefepime empirically until neutrophil at or above 1000 for 3 days.? Urine and blood cultures without growth thus far. 2. 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 Alfaro.? Oncology consulted during admission.? 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 Supportive blood product transfusions to maintain hemoglobin at or above 8.? Additional 1 unit PRBC ordered. Trend CBC.? 3. Hypertension-continue losartan. 4. Pulmonary hypertension-on tadalafil. 5. GERD-continue PPI. Physical Exam Const alert, oriented x3 and no apparent distress Orientation / Consciousness: awake, oriented to person, oriented to place and oriented to time HEENT normocephalic and moist oral mucous membranes Eyes PERRL, EOMs intact bilaterally and conjunctivae normal Neck no lymphadenopathy Resp normal respiratory effort and clear to auscultation bilaterally Cardio regular rate, regular rhythm and no murmurs Peripheral Pulses: pulses 2+ throughout GI normal to inspection, nondistended, normoactive bowel sounds, non-tender and non-distended Extremity normal to inspection Skin no rashes or lesions noted Lesions: no lesions Rashes: no rashes Trauma: no lacerations or abrasions Neuro CN's II-XII intact bilaterally, no focal motor deficits, no sensory deficits noted and deep tendon reflexes 2+ bilaterally Psych mental status grossly normal and affect normal Patient seen and examined prior to discharge. Physical assessment as noted above. Patient is stable for discharge with follow up recommendations as noted above. This patient was seen by CEDRIC Kearns under the supervision of Dr. Emery. Time spent examining patient, reviewing data and subsequent management of care: 20 minutes Weight / BMI Weight Weight: 179 lb 7.3 oz Body Mass Index (BMI) 24.4 ABG / Lab / Microbiology Data Result Diagrams: 05/13/22 06:27 05/13/22 06:27 Laboratory: Laboratory Results - last 24 hr 05/09/22 19:50: Crossmatch See Detail 05/13/22 06:27: WBC 0.3 L*, RBC 2.59 L, Hgb 8.3 L, Hct 24.4 L, MCV 94.2 H, MCH 32.0, MCHC 34.0, RDW Std Deviation 58.1 H, RDW Coeff of Jcarlos 17.1 H, Plt Count 20 L*, Immature Gran % (Auto) 2.900 H, Neut % (Auto) 8.9 L, Lymph % (Auto) 85.3 H, [place] % (Auto) 0.0, Eos % (Auto) 2.9, Baso % (Auto) 0.0, Absolute Neuts (auto) 0.0 L, Absolute Lymphs (auto) 0.29 L, Nucleated RBC % 0, Differential Comment , Diff Path Review March foll, Platelet Estimate MKD DEC, Hypochromasia 1+, Anisocytosis 1+ 05/13/22 06:27: Sodium 135 L, Potassium 3.8, Chloride 105, Carbon Dioxide 23.0, Anion Gap 7, BUN 12, Creatinine 0.64 L, Estim Creat Clear Calc 63.88, Est GFR ( MDRD) Af Amer 157, Est GFR (MDRD) Non-Af 130, BUN/Creatinine Ratio 18.9, Glucose 115 H, Calcium 7.9 L Microbiology: Microbiology 05/10/22 20:40 Urine, Clean Catch Urine Culture - Final Culture exhibits no growth. 05/09/22 20:35 Blood Culture (Wb) - Right Hand Blood Culture - Preliminary No growth in 48 hours. 05/09/22 20:30 Blood Culture (Wb) - Right Forearm Blood Culture - Preliminary No growth in 48 hours. 05/09/22 18:20 Urine, Clean Catch Urine Culture - Final Mixed Gram Pos & Gram Neg Org D/C Instructions Discharge Diet: No restrictions Call your doctor if you observe: Fever of 101 or Higher Meaningful Use Info Meaningful Use Diagnoses (Choose all that apply): None applicable Discharge Plan Admission Admit Date/Time: 05/09/22 20:57 Primary Reason for Your Visit: Neutropenic fever Attending Provider: Lalo Emery Primary Care Provider: Sunday Carter Consulting Providers: Neo Franks ; Subhash Alfaro ; Lary Rsuso ; Fritz Obrien ; Bakari Saeed ; Ilan Freitas ; Henok Lopez ; Delisa Francis NP ; Lisa Armstrong ; Crispin Mcadams Discharge Orders/Prescriptions Prescriptions: Continued tramadol [Ultram] 50 mg tablet 50 mg PO TID Label Comments: TAKE 1 TABLET BY MOUTH EVERY 6 HOURS NEEDED FOR PAIN folic acid 1 mg tablet 1 ea PO DAILY Label Comments: TAKE 1 TABLET BY MOUTH ONCE DAILY losartan 25 mg tablet 25 mg PO DAILY Qty: 90 3RF ondansetron 4 mg tablet,disintegrating 4 mg PO Q8H PRN (Reason: nausea and vomiting) Qty: 30 2RF Fish Oil 1 EACH capsule 1 ea PO DAILY omeprazole 20 MG capsule 40 mg PO DAILY montelukast 10 MG tablet 10 mg PO QHS pyridoxine (vitamin B6) 100 MG tablet 100 mg PO DAILY calcium carbonate 500 MG tablet 500 mg PO DAILY cholecalciferol (vitamin D3) 2,000 UNIT capsule 5,000 unit PO DAILY tadalafil 2.5 MG tablet 2.5 mg PO DAILY Inqovi 35-100 mg tablet See Rx Instructions .ROUTE .COMPLEX Rx Instructions: 1 TAB orally ;x5 days then off 21 days doxazosin 4 mg tablet 4 mg PO QHS sennosides [senna] 8.6 mg Tablet 17.2 mg PO BID docusate sodium [Colace] 100 mg Capsule 200 mg PO BID Referrals / Follow Up: Subhash Alfaro MD [NON-STAFF] - See Referral Note (As scheduled 05/15/2022 for repeat labs, make follow-up appointment as well.) Sunday Carter PA [Primary Care Provider] - In 1 Week Disposition Disposition (needs filled in before D/C Order can be placed): Home, Self Care
--- NOTE | 2022-05-13 13:26 | PCM.PN.HOSP ---
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 Fever significantly improved. Patient denies current symptoms/complaints. Discussed with oncology, until ANC improves, it is recommended he stay in the hospital on IV antibiotics. Objective Data Objective Data Vital Signs: Vital Signs Temp Pulse Resp BP Pulse Ox O2 Del Method 98.2 F 71 14 127/58 H 93 Room Air 05/13/22 08:15 05/13/22 08:15 05/13/22 08:15 05/13/22 08:15 05/13/22 08:15 05/13/22 08:15 Oxygen Delivery Method Room Air Weight: 179 lb 7.3 oz Body Mass Index (BMI) 24.4 Intake & Output: Intake and Output for Last 24 Hours 05/11/22 05/12/22 05/13/22 23:59 23:59 23:59 Intake Total 1050 / 1050 633.25 / 633.25 100 / 100 Output Total 250 / 500 1270 / 1270 300 / 300 Balance 800 / 550 -636.75 / -636.75 -200 / -200 Lab / Micro Data Result Diagrams: 05/13/22 06:27 05/13/22 06:27 Labs: Laboratory Results - last 24 hr 05/09/22 19:50: Crossmatch See Detail 05/13/22 06:27: WBC 0.3 L*, RBC 2.59 L, Hgb 8.3 L, Hct 24.4 L, MCV 94.2 H, MCH 32.0, MCHC 34.0, RDW Std Deviation 58.1 H, RDW Coeff of Jcarlos 17.1 H, Plt Count 20 L*, Immature Gran % (Auto) 2.900 H, Neut % (Auto) 8.9 L, Lymph % (Auto) 85.3 H, [place] % (Auto) 0.0, Eos % (Auto) 2.9, Baso % (Auto) 0.0, Absolute Neuts (auto) 0.0 L, Absolute Lymphs (auto) 0.29 L, Nucleated RBC % 0, Differential Comment , Diff Path Review May foll, Platelet Estimate MKD DEC, Hypochromasia 1+, Anisocytosis 1+ 05/13/22 06:27: Sodium 135 L, Potassium 3.8, Chloride 105, Carbon Dioxide 23.0, Anion Gap 7, BUN 12, Creatinine 0.64 L, Estim Creat Clear Calc 63.88, Est GFR (MDRD) Af Amer 157, Est GFR (MDRD) Non-Af 130, BUN/Creatinine Ratio 18.9, Glucose 115 H, Calcium 7.9 L Micro: Microbiology 05/10/22 20:40 Urine, Clean Catch Urine Culture - Final Culture exhibits no growth. 05/09/22 20:35 Blood Culture (Wb) - Right Hand Blood Culture - Preliminary No growth in 48 hours. 05/09/22 20:30 Blood Culture (Wb) - Right Forearm Blood Culture - Preliminary No growth in 48 hours. 05/09/22 18:20 Urine, Clean Catch Urine Culture - Final Mixed Gram Pos & Gram Neg Org Rhythm Strip Rhythm Strip: Sinus Rhythm Rate: 76 Ectopy: None Physical Exam Const alert, oriented x3 and no apparent distress Orientation / Consciousness: awake, oriented to person, oriented to place and oriented to time HEENT normocephalic and moist oral mucous membranes Eyes PERRL, EOMs intact bilaterally and conjunctivae normal Neck no lymphadenopathy Resp normal respiratory effort and clear to auscultation bilaterally Cardio regular rate, regular rhythm and no murmurs Peripheral Pulses: pulses 2+ throughout GI normal to inspection, nondistended, normoactive bowel sounds, non-tender and non-distended Extremity normal to inspection Skin no rashes or lesions noted Lesions: no lesions Rashes: no rashes Trauma: no lacerations or abrasions Neuro CN's II-XII intact bilaterally, no focal motor deficits, no sensory deficits noted and deep tendon reflexes 2+ bilaterally Psych mental status grossly normal and affect normal Assessment & Plan Assessment/Plan (1) Pancytopenia: PLAN: Plan 1.? Acute neutropenic fever-UTI ruled out. CXR unremarkable. on IV cefepime empirically until neutrophil at or above 1000 for 3 days.? Urine and blood cultures without growth thus far. Unfortunately, ANC remains 0. Will trend labs. 2. 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 Alfaro.? Oncology consulted.? 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 Supportive blood product transfusions to maintain hemoglobin at or above 8.? Trend CBC.? 3. Hypertension-continue losartan. 4. Pulmonary hypertension-on tadalafil. 5. GERD-continue PPI. DVT prophylaxis-deferred given pancytopenia This patient was seen by CEDRIC Kearns under the supervision of Dr. Emery. Time spent examining patient, reviewing data and subsequent management of care: 12 minutes Documented by User: Dr. Lalo Emery DO 05/13/22 15:02 Objective Data Lab / Micro Data Result Diagrams: 05/13/22 06:27 05/13/22 06:27 Assessment & Plan Assessment/Plan (1) Pancytopenia: Charges/Coding Addendum Addendum: Patient seen and examined independently. Data and vitals reviewed. I agree with the above note by the nurse practitioner. Patient feels fine vents overnight. Anxious to go home. No acute distress and afebrile. Heart rate regular rate and rhythm plus S1-S2 without murmurs Rubs. Lungs Are Clear to Auscultation Bilaterally. Abdomen Soft Nontender Nondistended Normal Bowel Sounds. Bilateral Compression Stockings on the Lower Extremities. Assessment and plan 1. Neutropenic fever Etiology unclear. Bacteria grown in the urine culture but the urinalysis itself was unremarkable. Currently on cefepime Per oncology, they want him to have 7 days of antibiotics and/or to continue until his ANC is greater than 1000. As far as ANC is improved. 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 Waiting on bone marrow recovery given his recent systemic chemotherapy. 2. Anemia Stable Oncology recommending transfusion up to 8. Patient has no underlying coronary artery disease. Continue to monitor for now. Visit Charges Inpatient E&M: 76173 Subs Hosp L2
[2022-05-13 14:30] VITALS: BP 130/53; PULSE 69; RESP 16; TEMP 36.7; O2SAT 97
[2022-05-13 21:30] VITALS: BP 131/59; PULSE 73; RESP 16; TEMP 36.8; O2SAT 96
[2022-05-13] MEDS: Doxazosin 4 MG Tablet PO (21:37)
[2022-05-13] MEDS: Montelukast 10 MG Tablet PO (21:37)
[2022-05-13] MEDS: 0.9% Saline Lock 10 ML Syringe IV (21:38)
[2022-05-13] MEDS: Senna/Docusate Sodium 1 Tablet 2 TABLET PO (21:44)
[2022-05-14 05:30] VITALS: BP 123/56; PULSE 71; RESP 18; TEMP 36.8; O2SAT 93
[2022-05-14] MEDS: traMADol 50 MG Tablet PO ×2 (05:40→14:47)
[2022-05-14 06:38] LABS: Absolute Lymphocyte Count 0.26 X10^3/uL (0.83-4.51); Absolute Neutrophil Count 0.1 X10^3/uL (2.0-7.7); Eosinophil# 0.01 X10^3/uL; Eosinophils% 3.1 % (0-5); Hematocrit 24.1 % (40-54); Hemoglobin 8.2 g/dL (13.0-16.5); Lymphocyte # 0.26 X10^3/ul (0.83-4.51); Lymphocyte % 81.3 % (19-41); Mean Corpuscular Hgb 31.9 pg (27.0-32.0); Mean Corpuscular Volume 93.8 fL (80-94); Mean Platelet Vol. 11.1 fl (6.2-12.0); NRBC Flagged by Analyzer 6.3 % (0-5); Neutrophil # 0.05 X10^3/uL (2.7-7.7); Neutrophil % 15.6 % (47-70); POSITIVE COUNT YES; POSITIVE DIFFERENTIAL YES; POSITIVE MORPHOLOGY YES; RBC Distribution Width CV 17.3 % (11.6-14.6); RBC Distribution Width SD 57.8 fl (35.1-43.9); Red Blood Count 2.57 M/mm3 (4.6-6.2)
[2022-05-14 07:06] LABS: Anion Gap 6 (5-15); BUN 10 mg/dL (7-18); BUN/Creat Ratio 18.1 RATIO (10-20); Calcium,Total 8.5 mg/dL (8.5-10.1); Chloride 102 mmol/L (98-107); Creatinine, Serum 0.55 mg/dL (0.70-1.30); EST Glomerular Filtration Rate 152 mL/min (>60); Est Glom Filt Rate - Afr Amer 184 mL/min (>60); Estimated Creatinine Clearance 63.88 ml/min; Glucose 118 mg/dL (74-106); Potassium 3.9 mmol/L (3.5-5.1); Sodium Level 133 mmol/L (136-145)
[2022-05-14 07:08] LABS: Differential Indicated SCAN CRITERIA MET; Platelet Count 32 K/mm3 (150-450); White Blood Count 0.3 K/mm3 (4.4-11.0)
[2022-05-14 07:20] LABS: Differential Comment SCANNED
[2022-05-14 07:45] VITALS: BP 128/57; PULSE 71; RESP 18; TEMP 36.8; O2SAT 92
[2022-05-14] MEDS: Acetaminophen 325 MG Tablet 650 MG PO (07:56)
--- NOTE | 2022-05-14 09:40 | PCM.PN.HOSP ---
Subjective Subjective Patient seen and examined. Fever remains improved. Patient denies current symptoms or complaints. Case management looking into outpatient IV antibiotic options. Objective Data Objective Data Vital Signs: Vital Signs Temp Pulse Resp BP Pulse Ox O2 Del Method 98.3 F 71 18 128/57 H 92 Room Air 05/14/22 07:45 05/14/22 07:45 05/14/22 07:45 05/14/22 07:45 05/14/22 07:45 05/14/22 07:50 Oxygen Delivery Method Room Air Weight: 181 lb 3.52 oz Body Mass Index (BMI) 24.4 Intake & Output: Intake and Output for Last 24 Hours 05/12/22 05/13/22 05/14/22 23:59 23:59 23:59 Intake Total 633.25 / 633.25 369.5 / 369.5 Output Total 1270 / 1270 300 / 300 Balance -636.75 / -636.75 69.5 / 69.5 Lab / Micro Data Result Diagrams: 05/14/22 05:40 05/14/22 05:40 Labs: Laboratory Results - last 24 hr 05/14/22 05:40: WBC 0.3 L*, RBC 2.57 L, Hgb 8.2 L, Hct 24.1 L, MCV 93.8, MCH 31.9, MCHC 34.0, RDW Std Deviation 57.8 H, RDW Coeff of Jcarlos 17.3 H, Plt Count 32 L*, MPV 11.1, Immature Gran % (Auto) 0.000, Neut % (Auto) 15.6 L, Lymph % (Auto) 81.3 H, [place] % (Auto) 0.0, Eos % (Auto) 3.1, Baso % (Auto) 0.0, Absolute Neuts (auto) 0.1 L, Absolute Lymphs (auto) 0.26 L, Nucleated RBC % 6.3 H, Differential Comment SCANNED, Diff Path Review March05/14/22 05:40: Sodium 133 L, Potassium 3.9, Chloride 102, Carbon Dioxide 25.0, Anion Gap 6, BUN 10, Creatinine 0.55 L, Estim Creat Clear Calc 63.88, Est GFR (MDRD) Af Amer 184, Est GFR (MDRD) Non-Af 152, BUN/Creatinine Ratio 18.1, Glucose 118 H, Calcium 8.5 Micro: Microbiology 05/10/22 20:40 Urine, Clean Catch Urine Culture - Final Culture exhibits no growth. 05/09/22 20:35 Blood Culture (Wb) - Right Hand Blood Culture - Preliminary No growth in 48 hours. 05/09/22 20:30 Blood Culture (Wb) - Right Forearm Blood Culture - Preliminary No growth in 48 hours. 05/09/22 18:20 Urine, Clean Catch Urine Culture - Final Mixed Gram Pos & Gram Neg Org Rhythm Strip Rhythm Strip: Sinus Rhythm Rate: 76 Ectopy: None Physical Exam Const alert, oriented x3 and no apparent distress Orientation / Consciousness: awake, oriented to person, oriented to place and oriented to time HEENT normocephalic and moist oral mucous membranes Eyes PERRL, EOMs intact bilaterally and conjunctivae normal Neck no lymphadenopathy Resp normal respiratory effort and clear to auscultation bilaterally Cardio regular rate, regular rhythm and no murmurs Peripheral Pulses: pulses 2+ throughout GI normal to inspection, nondistended, normoactive bowel sounds, non-tender and non-distended Extremity normal to inspection Skin no rashes or lesions noted Lesions: no lesions Rashes: no rashes Trauma: no lacerations or abrasions Neuro CN's II-XII intact bilaterally, no focal motor deficits, no sensory deficits noted and deep tendon reflexes 2+ bilaterally Psych mental status grossly normal and affect normal Assessment & Plan Assessment/Plan (1) Pancytopenia: (2) Neutropenic fever: PLAN: Plan 1.? Acute neutropenic fever-UTI ruled out. CXR unremarkable. on IV cefepime empirically until neutrophil at or above 1000 for 3 days.? Urine and blood cultures without growth thus far.? Case management looking into options for outpatient IV antibiotics. Trend CBC. 2. 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 Alfaro.? Oncology consulted.? 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 Supportive blood product transfusions to maintain hemoglobin at or above 8.? Trend CBC.? 3. Hypertension-continue losartan. 4. Pulmonary hypertension-on tadalafil. 5. GERD-continue PPI. DVT prophylaxis-deferred given pancytopenia This patient was seen by CEDRIC Kearns under the supervision of Dr. Emery. Time spent examining patient, reviewing data and subsequent management of care: 12 minutes
[2022-05-14] MEDS: 0.9% Saline Lock 10 ML Syringe IV (09:53)
[2022-05-14] MEDS: Calcium (Elemental) 500 MG Tablet PO (09:56)
[2022-05-14] MEDS: Cholecalciferol (Vit D3) 125 MCG CAPSULE (5,000 UNITS) PO (09:56)
[2022-05-14] MEDS: Folic Acid 1 MG Tablet PO (09:56)
[2022-05-14] MEDS: Pyridoxine HCl 100 MG Tablet PO (09:56)
[2022-05-14] MEDS: Pantoprazole Sodium 40 MG Tablet PO (09:56)
[2022-05-14] MEDS: Losartan Potassium 25 MG Tablet PO (09:56)
--- NOTE | 2022-05-14 13:23 | DCINST_ITS ---
Discharge Instructions Diet Discharge Diet: No restrictions Activity Discharge Activity: Return to Normal Activity Dressing / Incision Call your doctor if you observe: Fever of 101 or Higher Follow Up Care Test Results: Test results from this visit will be discussed in further detail at your follow- up appointment, if applicable. Discharge Plan Admission Admit Date/Time: 05/09/22 20:57 Primary Reason for Your Visit: Neutropenic fever Attending Provider: Lalo Emery Primary Care Provider: Sunday Carter Consulting Providers: Neo Franks ; Subhash Alfaro ; Lary Russo ; Fritz Obrien ; Bakari Saeed ; Ilan Freitas ; Henok Lopez ; Delisa Francis NP ; Lisa Armstrong ; Crispin Mcadams Discharge Orders/Prescriptions Prescriptions: New ciprofloxacin HCl 750 mg tablet 750 mg PO BID Qty: 14 0RF amoxicillin-pot clavulanate 875-125 mg tablet 1 tab PO BID Qty: 14 0RF Continued tramadol [Ultram] 50 mg tablet 50 mg PO TID Label Comments: TAKE 1 TABLET BY MOUTH EVERY 6 HOURS NEEDED FOR PAIN folic acid 1 mg tablet 1 ea PO DAILY Label Comments: TAKE 1 TABLET BY MOUTH ONCE DAILY losartan 25 mg tablet 25 mg PO DAILY Qty: 90 3RF ondansetron 4 mg tablet,disintegrating 4 mg PO Q8H PRN (Reason: nausea and vomiting) Qty: 30 2RF Fish Oil 1 EACH capsule 1 ea PO DAILY omeprazole 20 MG capsule 40 mg PO DAILY montelukast 10 MG tablet 10 mg PO QHS pyridoxine (vitamin B6) 100 MG tablet 100 mg PO DAILY calcium carbonate 500 MG tablet 500 mg PO DAILY cholecalciferol (vitamin D3) 2,000 UNIT capsule 5,000 unit PO DAILY tadalafil 2.5 MG tablet 2.5 mg PO DAILY Inqovi 35-100 mg tablet See Rx Instructions .ROUTE .COMPLEX Rx Instructions: 1 TAB orally ;x5 days then off 21 days doxazosin 4 mg tablet 4 mg PO QHS sennosides [senna] 8.6 mg Tablet 17.2 mg PO BID docusate sodium [Colace] 100 mg Capsule 200 mg PO BID Referrals / Follow Up: Subhash Alfaro MD [NON-STAFF] - See Referral Note (As scheduled 05/15/2022 for repeat labs, make follow-up appointment as well.) Sunday Carter, PA [Primary Care Provider] - In 1 Week Disposition Disposition (needs filled in before D/C Order can be placed): Home, Self Care
--- NOTE | 2022-05-14 13:27 | DS.PCM_ITS ---
Documented by User: Ritu Scherer NP, CHEMICAL RESEARCH ENGINEER-C 05/14/22 13:36 Providers Date of Admission: 05/09/22 Date of Discharge: 05/14/22 Primary Care Physician: MENDEL Markham Consultations 05/09/22 22:42 Consult: Oncology/Hematology Routine Consulting Provider: [facility]) Reason for Consult: Neutropenic fever, susp UTI, pancytopenia, recent chemo EMERGENT Consult: No MD Notified: Yes Date Notified: 05/09/22 Time Notified: 21:13 Method of Notification: ED Physician Initiated Reason For Visit: NEUTROPENIC FEVER, PANCYTOPENIA, UTI Diagnosis Discharge Diagnosis (1) Pancytopenia: Status: Acute Code(s): D61.818 - Other pancytopenia (2) Neutropenic fever: Status: Acute Code(s): D70.9 - Neutropenia, unspecified; R50.81 - Fever presenting with conditions classified elsewhere Medications at Discharge Home Medications omega-3 fatty acids-fish oil 340 mg-1,000 mg capsule (Fish Oil) 1 ea PO DAILY supplement 05/22/17 montelukast 10 mg tablet 10 mg PO QHS allergies 08/24/18 omeprazole 20 mg capsule,delayed release 40 mg PO DAILY GERD 08/24/18 pyridoxine (vitamin B6) 100 mg tablet 100 mg PO DAILY supplement 08/24/18 calcium carbonate 500 mg calcium (1,250 mg) tablet 500 mg PO DAILY supplement 05/30/20 cholecalciferol (vitamin D3) 50 mcg (2,000 unit) capsule 5,000 unit PO DAILY supplement 05/30/20 tadalafil 2.5 mg tablet 2.5 mg PO DAILY blood pressure 07/28/20 folic acid 1 mg tablet 1 ea PO DAILY supplement 08/13/21 tramadol 50 mg tablet (Ultram) 50 mg PO TID pain 08/13/21 ondansetron 4 mg disintegrating tablet 4 mg PO Q8H PRN nausea and vomiting #30 tabs 04/17/22 losartan 25 mg tablet 25 mg PO DAILY #90 tabs 04/26/22 decitabine 35 mg-cedazuridine 100 mg tablet (Inqovi) See Rx Instructions .Route .COMPLEX chemo 05/01/22 doxazosin 4 mg tablet 4 mg PO QHS bladder 05/01/22 docusate sodium 100 mg capsule (Colace) 200 mg PO BID constipation 05/09/22 sennosides 8.6 mg tablet (senna) 17.2 mg PO BID constipation 05/09/22 amoxicillin 875 mg-potassium clavulanate 125 mg tablet 1 tab PO BID #14 tabs 05/14/22 clindamycin HCl 300 mg capsule 300 mg PO Q8H #21 caps 05/14/22 Hospital Course Operations None Procedures None Summary of Care Provided Hospital Course: Patient is a 76-year-old male admitted 05/09/2022 due to fever. 1.? Acute neutropenic fever-UTI ruled out. CXR unremarkable. IV cefepime during admission. Continue antibiotics empirically until neutrophil at or above 1000 for 3 days.? Urine and blood cultures negative.? Patient without active uncontrolled comorbid medical problems including sepsis, source of infection, renal or hepatic insufficiency. Will discharge on Cipro 750 mg twice daily and Augmentin 875 mg twice daily with close outpatient surveillance by oncology. Patient is scheduled for lab work 05/15/2022 with further follow-up with oncology. 2. 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 Alfaro.? Oncology consulted during admission.? 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 Supportive blood product transfusions to maintain hemoglobin at or above 8.? Patient received 3 units PRBC during admission and 2 units platelets. Remained stable. Scheduled for outpatient labs 05/15/2022. 3. Hypertension-continue losartan. 4. Pulmonary hypertension-on tadalafil. 5. GERD-continue PPI. Physical Exam Const alert, oriented x3 and no apparent distress Orientation / Consciousness: awake, oriented to person, oriented to place and oriented to time HEENT normocephalic and moist oral mucous membranes Eyes PERRL, EOMs intact bilaterally and conjunctivae normal Neck no lymphadenopathy Resp normal respiratory effort and clear to auscultation bilaterally Cardio regular rate, regular rhythm and no murmurs Peripheral Pulses: pulses 2+ throughout GI normal to inspection, nondistended, normoactive bowel sounds, non-tender and non-distended Extremity normal to inspection Skin no rashes or lesions noted Lesions: no lesions Rashes: no rashes Trauma: no lacerations or abrasions Neuro CN's II-XII intact bilaterally, no focal motor deficits, no sensory deficits noted and deep tendon reflexes 2+ bilaterally Psych mental status grossly normal and affect normal Patient seen and examined prior to discharge. Physical assessment as noted above. Patient is stable for discharge with follow up recommendations as noted above. This patient was seen by CEDRIC Kearns under the supervision of Dr. Emery. Time spent examining patient, reviewing data and subsequent management of care: 18 minutes Weight / BMI Weight Weight: 181 lb 3.52 oz Body Mass Index (BMI) 24.4 ABG / Lab / Microbiology Data Result Diagrams: 05/14/22 05:40 05/14/22 05:40 Laboratory: Laboratory Results - last 24 hr 05/14/22 05:40: WBC 0.3 L*, RBC 2.57 L, Hgb 8.2 L, Hct 24.1 L, MCV 93.8, MCH 31.9, MCHC 34.0, RDW Std Deviation 57.8 H, RDW Coeff of Jcarlos 17.3 H, Plt Count 32 L*, MPV 11.1, Immature Gran % (Auto) 0.000, Neut % (Auto) 15.6 L, Lymph % (Auto) 81.3 H, Talbot % (Auto) 0.0, Eos % (Auto) 3.1, Baso % (Auto) 0.0, Absolute Neuts (auto) 0.1 L, Absolute Lymphs (auto) 0.26 L, Nucleated RBC % 6.3 H, Differential Comment SCANNED, Diff Path Review March foll 05/14/22 05:40: Sodium 133 L, Potassium 3.9, Chloride 102, Carbon Dioxide 25.0, Anion Gap 6, BUN 10, Creatinine 0.55 L, Estim Creat Clear Calc 63.88, Est GFR (MDRD) Af Amer 184, Est GFR (MDRD) Non-Af 152, BUN/Creatinine Ratio 18.1, Glucose 118 H, Calcium 8.5 Microbiology: Microbiology 05/14/22 10:58 Nasal Secretion SARS-CoV-2 Antigen (Rapid) - Final 05/10/22 20:40 Urine, Clean Catch Urine Culture - Final Culture exhibits no growth. 05/09/22 20:35 Blood Culture (Wb) - Right Hand Blood Culture - Preliminary No growth in 48 hours. 05/09/22 20:30 Blood Culture (Wb) - Right Forearm Blood Culture - Prelimin archie No growth in 48 hours. 05/09/22 18:20 Urine, Clean Catch Urine Culture - Final Mixed Gram Pos & Gram Neg Org D/C Instructions Discharge Diet: No restrictions Call your doctor if you observe: Fever of 101 or Higher Meaningful Use Info Meaningful Use Diagnoses (Choose all that apply): None applicable Discharge Plan Admission Admit Date/Time: 05/09/22 20:57 Primary Reason for Your Visit: Neutropenic fever Attending Provider: Lalo Emery Primary Care Provider: Sunday Carter Consulting Providers: Neo Franks ; Subhash Alfaro ; Lary Russo ; Fritz Obrien ; Bakari Saeed ; Ilan Freitas ; Henok Lopez ; Delisa Francis NP ; Lisa Armstrong ; Crispin Mcadams Discharge Orders/Prescriptions Prescriptions: New amoxicillin-pot clavulanate 875-125 mg tablet 1 tab PO BID Qty: 14 0RF clindamycin HCl 300 mg capsule 300 mg PO Q8H Qty: 21 0RF Continued tramadol [Ultram] 50 mg tablet 50 mg PO TID Label Comments: TAKE 1 TABLET BY MOUTH EVERY 6 HOURS NEEDED FOR PAIN folic acid 1 mg tablet 1 ea PO DAILY Label Comments: TAKE 1 TABLET BY MOUTH ONCE DAILY losartan 25 mg tablet 25 mg PO DAILY Qty: 90 3RF ondansetron 4 mg tablet,disintegrating 4 mg PO Q8H PRN (Reason: nausea and vomiting) Qty: 30 2RF Fish Oil 1 EACH capsule 1 ea PO DAILY omeprazole 20 MG capsule 40 mg PO DAILY montelukast 10 MG tablet 10 mg PO QHS pyridoxine (vitamin B6) 100 MG tablet 100 mg PO DAILY calcium carbonate 500 MG tablet 500 mg PO DAILY cholecalciferol (vitamin D3) 2,000 UNIT capsule 5,000 unit PO DAILY tadalafil 2.5 MG tablet 2.5 mg PO DAILY Inqovi 35-100 mg tablet See Rx Instructions .ROUTE .COMPLEX Rx Instructions: 1 TAB orally ;x5 days then off 21 days doxazosin 4 mg tablet 4 mg PO QHS sennosides [senna] 8.6 mg Tablet 17.2 mg PO BID docusate sodium [Colace] 100 mg Capsule 200 mg PO BID Referrals / Follow Up: Subhash Alfaro MD [NON-STAFF] - See Referral Note (As scheduled 05/15/2022 for repeat labs, make follow-up appointment as well.) Sunday Carter PA [Primary Care Provider] - In 1 Week Disposition Disposition (needs filled in before D/C Order can be placed): Home, Self Care Documented by User: Dr. Lalo Emery DO 05/14/22 17:15 Providers Date of Admission: 05/09/22 Reason For Visit: NEUTROPENIC FEVER, PANCYTOPENIA, UTI Diagnosis Discharge Diagnosis (1) Pancytopenia: Status: Acute Code(s): D61.818 - Other pancytopenia (2) Neutropenic fever: Status: Acute Code(s): D70.9 - Neutropenia, unspecified; R50.81 - Fever presenting with conditions classified elsewhere Medications at Discharge Home Medications omega-3 fatty acids-fish oil 340 mg-1,000 mg capsule (Fish Oil) 1 ea PO DAILY supplement 05/22/17 montelukast 10 mg tablet 10 mg PO QHS allergies 08/24/18 omeprazole 20 mg capsule,delayed release 40 mg PO DAILY GERD 08/24/18 pyridoxine (vitamin B6) 100 mg tablet 100 mg PO DAILY supplement 08/24/18 calcium carbonate 500 mg calcium (1,250 mg) tablet 500 mg PO DAILY supplement 05/30/20 cholecalciferol (vitamin D3) 50 mcg (2,000 unit) capsule 5,000 unit PO DAILY s upplement 05/30/20 tadalafil 2.5 mg tablet 2.5 mg PO DAILY blood pressure 07/28/20 folic acid 1 mg tablet 1 ea PO DAILY supplement 08/13/21 tramadol 50 mg tablet (Ultram) 50 mg PO TID pain 08/13/21 ondansetron 4 mg disintegrating tablet 4 mg PO Q8H PRN nausea and vomiting #30 tabs 04/17/22 losartan 25 mg tablet 25 mg PO DAILY #90 tabs 04/26/22 decitabine 35 mg-cedazuridine 100 mg tablet (Inqovi) See Rx Instructions .Route .COMPLEX chemo 05/01/22 doxazosin 4 mg tablet 4 mg PO QHS bladder 05/01/22 docusate sodium 100 mg capsule (Colace) 200 mg PO BID constipation 05/09/22 sennosides 8.6 mg tablet (senna) 17.2 mg PO BID constipation 05/09/22 amoxicillin 875 mg-potassium clavulanate 125 mg tablet 1 tab PO BID #14 tabs 05/14/22 clindamycin HCl 300 mg capsule 300 mg PO Q8H #21 caps 05/14/22 Hospital Course Summary of Care Provided Minutes Spent on Discharge: 35 Hospital Course: Patient is a 76-year-old male admitted 05/09/2022 due to fever. 1.? Acute neutropenic fever-UTI ruled out. CXR unremarkable. IV cefepime during admission. Continue antibiotics empirically until neutrophil at or above 1000 for 3 days.? Urine and blood cultures negative.? Patient without active uncontrolled comorbid medical problems including sepsis, source of infection, renal or hepatic insufficiency. Will discharge on Cipro 750 mg twice daily and Augmentin 875 mg twice daily with close outpatient surveillance by oncology. Patient is scheduled for lab work 05/15/2022 with further follow-up with oncology. 2. 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 Alfaro.? Oncology consulted during admission.? 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 Supportive blood product transfusions to maintain hemoglobin at or above 8.? Patient received 3 units PRBC during admission and 2 units platelets. Remained stable. Scheduled for outpatient labs 05/15/2022. 3. Hypertension-continue losartan. 4. Pulmonary hypertension-on tadalafil. 5. GERD-continue PPI. Physical Exam Const alert, oriented x3 and no apparent distress Orientation / Consciousness: awake, oriented to person, oriented to place and oriented to time HEENT normocephalic and moist oral mucous membranes Eyes PERRL, EOMs intact bilaterally and conjunctivae normal Neck no lymphadenopathy Resp normal respiratory effort and clear to auscultation bilaterally Cardio regular rate, regular rhythm and no murmurs Peripheral Pulses: pulses 2+ throughout GI normal to inspection, nondistended, normoactive bowel sounds, non-tender and non-distended Extremity normal to inspection Skin no rashes or lesions noted Lesions: no lesions Rashes: no rashes Trauma: no lacerations or abrasions Neuro CN's II-XII intact bilaterally, no focal motor deficits, no sensory deficits noted and deep tendon reflexes 2+ bilaterally Psych mental status grossly normal and affect normal Patient seen and examined prior to discharge. Physical assessment as noted above. Patient is stable for discharge with follow up recommendations as noted above. This patient was seen by CEDRIC Kearns under the supervision of Dr. Emery. Time spent examining patient, reviewing data and subsequent management of care: 18 minutes Patient seen and examined independently. Data and vitals reviewed. I agree with the above note by the nurse practitioner. Patient admitted with neutropenic fever. Cultures performed and were unremarkable. Patient's course was uncomplicated. Reviewing the IDSA neutropenic fever guidelines, patient is considered low risk for outpatient a ntibiotics. Patient does have a fluoroquinolone allergy so patient will be discharged with Augmentin and clindamycin completed weeks course of antibiotics. Did discuss with the patient's that she was able to read notes and explained to her that I spoke with Dr. Russo and he was in agreement with the plan. Patient advised to return if anything changes. Patient's noted that she has been sick lately so we did check him for COVID-19 and that was negative. Patient was unvaccinated for COVID. Physical Exam Const alert Resp normal respiratory effort, no retractions, no use of accessory muscles and clear to auscultation bilaterally Cardio regular rate, regular rhythm, S1 normal heart sound and S2 normal heart sound Extremity normal to inspection Neuro oriented x3 ABG / Lab / Microbiology Data Result Diagrams: 05/14/22 05:40 05/14/22 05:40 Discharge Plan Admission Admit Date/Time: 05/09/22 20:57 Primary Reason for Your Visit: Neutropenic fever Attending Provider: Lalo Emery Primary Care Provider: Sunday Carter Consulting Providers: Neo Franks ; Subhash Alfaro ; Lary Russo ; Fritz Obrien ; Bakari Saeed ; Ilan Freitas ; Henok Lopez ; Delisa Francis NP ; Lisa Armstrong ; Crispin Mcadams Discharge Orders/Prescriptions Prescriptions: New amoxicillin-pot clavulanate 875-125 mg tablet 1 tab PO BID Qty: 14 0RF clindamycin HCl 300 mg capsule 300 mg PO Q8H Qty: 21 0RF Continued tramadol [Ultram] 50 mg tablet 50 mg PO TID Label Comments: TAKE 1 TABLET BY MOUTH EVERY 6 HOURS NEEDED FOR PAIN folic acid 1 mg tablet 1 ea PO DAILY Label Comments: TAKE 1 TABLET BY MOUTH ONCE DAILY losartan 25 mg tablet 25 mg PO DAILY Qty: 90 3RF ondansetron 4 mg tablet,disintegrating 4 mg PO Q8H PRN (Reason: nausea and vomiting) Qty: 30 2RF Fish Oil 1 EACH capsule 1 ea PO DAILY omeprazole 20 MG capsule 40 mg PO DAILY montelukast 10 MG tablet 10 mg PO QHS pyridoxine (vitamin B6) 100 MG tablet 100 mg PO DAILY calcium carbonate 500 MG tablet 500 mg PO DAILY cholecalciferol (vitamin D3) 2,000 UNIT capsule 5,000 unit PO DAILY tadalafil 2.5 MG tablet 2.5 mg PO DAILY Inqovi 35-100 mg tablet See Rx Instructions .ROUTE .COMPLEX Rx Instructions: 1 TAB orally ;x5 days then off 21 days doxazosin 4 mg tablet 4 mg PO QHS sennosides [senna] 8.6 mg Tablet 17.2 mg PO BID docusate sodium [Colace] 100 mg Capsule 200 mg PO BID Referrals / Follow Up: Subhash Alfaro MD [NON-STAFF] - See Referral Note (As scheduled 05/15/2022 for repeat labs, make follow-up appointment as well.) Sunday Carter PA [Primary Care Provider] - In 1 Week Disposition Disposition (needs filled in before D/C Order can be placed): Home, Self Care Charges/Coding Visit Charges Inpatient E&M: 83040 Disch Hosp
--- NOTE | 2022-05-14 13:43 | CASEMGMT ---
Addendum entered by Kaz Carrera 05/14/22 16:13: [facility] able to accept pt but SN may not be available for 5 days. TALON CASTANEDA placed call to and she was made aware. She was also made aware of need for pt f/u w/Dr Alfaro or PCP to have labs drawn w/in 2 days per CARLOS Chaney. Discussed options for labs to be drawn w/ if [facility] SN unable to see pt w/in 2 days, such as [facility] OP lab or OP oncology. She voices understanding and voices appreciation for info and [facility] set-up. She denies having other discharge planning needs at this time. Call placed to [facility]. No answer. VM left notifying them referral has been cancelled. Addendum entered by Kaz Carrera 05/14/22 15:36: No response from [facility] and this TALON CASTANEDA has attempted several times to contact someone in intake. Call placed to [facility]. Referral made and referral packet faxed. Awaiting response. notified of above and aware walker to be delivered after 4 PM today. states pt just called her telling her his legs are swelling up. RNChantale, states she is aware of pt c/o same and has a call out to CARLOS Chaney, to notify her of same. aware d/c paperwork instructs for pt to have labs drawn @ appt w/Dr Alfaro tomorrow. states she has cancelled that appt d/t she does not want to take pt out with his neutropenia and how he is feeling. She was made aware to discuss possible option of having labs drawn by [facility] nurse for f/u. She voices understanding. Addendum entered by Kaz Carrera 05/14/22 14:31: Dr Emery has spoken w/pt's and pt will be discharged home on PO atb's today. TALON CASTANEDA placed call to . She states her questions have been answered and she is aware of d/c plan. Discussed HHC w/her and she states would like [facility] and does not have a preference of [facility] agencies. TALON CASTANEDA did review w/her [facility] providers consistent w/pt's geographic region and insurance network. Order placed for [facility]. Referral packet faxed to Pending sale to [facility] at this time. Call placed to [facility] @ [phone] and VM left re: referral. Awaiting response. Pt would like a walker. He was provided w/list of local DME companies. Pt and do not have a preference of DME co. Script for walker obtained and faxed to [employer]. TC to [facility] [employer]. Walker to be delivered to pt's room today shortly after 4 PM. Original Note: TALON CASTANEDA NOTE: Per Dr Emery, pt being discharged home on PO atb's. PT/OT ryu reviewed and additional therapy recommended. TALON CASTANEDA to room to talk w/pt and inquired if he would like HHC. He asked TALON CASTANEDA to call his , Sigrid. Call placed to while in room w/pt and she was updated on discharge plan. voiced concerns re: atb's being changed to PO and also pt being discharged home. Dr Emery notified and states will call to discuss concerns w/her. Yves LASSITER RN, CM
[2022-05-14 14:14] LABS: Pathologist Review Reviewed
[2022-05-14 14:15] LABS: Pathologist Review Reviewed
[2022-05-14 14:15] LABS: Pathologist Review Reviewed
[2022-05-14 14:15] LABS: Pathologist Review Reviewed
[2022-05-14 14:15] LABS: Pathologist Review Reviewed
--- NOTE | 2022-05-14 14:20 | NURSING ---
discussed dc with patient, informed patient discussed with case mgmt, aware awaiting on walker to be delivered and case mgmt to arrange HHC. pt denies further needs at present. call light within reach.
[2022-05-14 14:37] VITALS: BP 145/62; PULSE 84; RESP 18; TEMP 36.7; O2SAT 97
--- NOTE | 2022-05-14 16:01 | CHAPLAIN ---
Type of Pastoral Visit _x__ Initial Visit ___ Follow-up Visit ___ On-call Visit ___ General Patient Visit ___ Spiritual Assessment ___ Family Conference ___ Bereavement ___ Rapid Response ___ Code Blue ___ Other (describe below) Pastoral Care Referral From _x__ Patient ___ Family ___ Nurse ___ Physician ___ Corporate Ethics Officer ___ Vulcanizer ___ Other (describe below) Sacrament/Intervention _x__ Active listening ___ Anointing ___ Hindu ___ Bereavement ___ Communion _x__ Genesis exploration ___ _x__ Life review _x__ Prayer ___ Reconciliation ___ Sacrament of Sick _x__ Supportive presence ___ Wedding ___ Other (describe below) Pastoral Comments patient is welcoming and open to talk about his health concerns; pt has tried chemo and is deciding to stop it; pt states he has had honest discussion with his yesterday about when to seek hospice care; pt identifies as a Hinduism believer with a episcopalian connection; pt has supportive and family; pt goal is to live longer but expresses realism of his situation and approaching is possible; pt admits need to direction and support; pt welcomes prayer and presence of loan underwriter for spiritual care
[2022-05-14 16:25] VITALS: BP 121/43; PULSE 71; RESP 18; TEMP 36.9
== END 2022-05-14 17:20 | disposition home health service (06) | DRG 810 ==
LOC: ED 20:30 → MS3 21:48
PROVIDERS: Nurse Practitioner Family; Admitting Provider Family Medicine; Emergency Provider Emergency Medicine; PCP Physician Assistant
DX: D61.810 Antineoplastic chemotherapy induced pancytopenia (principal); D70.9 Neutropenia, unspecified; R50.81 Fever presenting with conditions classified elsewhere; T45.1X5A Adverse effect of antineoplastic and immunosuppressive drugs, initial encounter; C88.0 Waldenstrom macroglobulinemia; I27.21 Secondary pulmonary arterial hypertension; D61.818 Other pancytopenia; D46.9 Myelodysplastic syndrome, unspecified; I10 Essential (primary) hypertension; K21.9 Gastro-esophageal reflux disease without esophagitis; Z28.310 Unvaccinated for COVID-19; Z20.822 Contact with and (suspected) exposure to COVID-19; Z79.899 Other long term (current) drug therapy; Z87.891 Personal history of nicotine dependence
CPT/HCPCS: 36415; 71045; 80048; 80053; 81001; 83605; 83735; 84100; 84145; 85025; 86644; 86850; 86900; 86901; 86920; 86922; 86965; 87040; 87086; 87088; 87426; 97162; 99284; J7030; J7040; J7050; P9016; P9037; A4216; J1447; J1940

== ENCOUNTER → 2022-12-19 | Outpatient (CLI) | payer MEDICARE, SELFPAY ==
[2022-12-19] VITALS (7 sets, daily range): BP systolic 124–139; BP diastolic 48–62; PULSE 62–79; RESP 16; TEMP 36.3–36.9; O2SAT 97–100
[2022-12-19] MEDS: 0.9% NaCl Peripheral Flush Adult/Peds IV (09:43)
== END | disposition home or self-care (01) ==
LOC: MEDOUTP 09:26
PROVIDERS: PCP Physician Assistant; Referring Provider Internal Medicine Hematology & Oncology; Visit Provider Internal Medicine Hematology & Oncology
DX: D46.20 Refractory anemia with excess of blasts, unspecified (principal)
CPT/HCPCS: 36430; 86850; 86900; 86901; 86920; 86922; J7040; P9016; A4216

== ENCOUNTER → 2023-01-09 | Outpatient (CLI) | payer MEDICARE, SELFPAY ==
[2023-01-09] MEDS: 0.9% NaCl Peripheral Flush Adult/Peds IV (10:12)
[2023-01-09 10:30] VITALS: BP 133/52; PULSE 66; RESP 14; TEMP 36.1; O2SAT 97; BMI 24.7
[2023-01-09 10:54] VITALS: BP 132/72; PULSE 65; RESP 14; TEMP 36.2; O2SAT 97
[2023-01-09 11:54] VITALS: BP 131/57; PULSE 65; RESP 16; TEMP 36.1
[2023-01-09 12:39] VITALS: BP 148/67; PULSE 65; RESP 16; TEMP 36.1; O2SAT 98
== END | disposition home or self-care (01) ==
LOC: MEDOUTP 09:59
PROVIDERS: PCP Physician Assistant; Referring Provider Internal Medicine Hematology & Oncology; Visit Provider Internal Medicine Hematology & Oncology
DX: D46.9 Myelodysplastic syndrome, unspecified (principal)
CPT/HCPCS: 36430; 86850; 86900; 86901; 86920; 86922; J7040; P9016; A4216

== ENCOUNTER → 2023-01-27 | Outpatient (CLI) | payer MEDICARE, SELFPAY ==
[2023-01-27] MEDS: 0.9% NaCl Peripheral Flush Adult/Peds IV (13:03)
[2023-01-27 13:17] VITALS: BP 136/50; PULSE 69; RESP 16; TEMP 36.4; O2SAT 98; BMI 24.8
[2023-01-27 14:04] VITALS: BP 127/50; PULSE 85; RESP 16; TEMP 36.6; O2SAT 99
[2023-01-27 15:04] VITALS: BP 133/47; PULSE 63; RESP 16; TEMP 36.4
[2023-01-27 16:04] VITALS: BP 130/51; PULSE 66; RESP 14; TEMP 36.7; O2SAT 96
== END | disposition home or self-care (01) ==
LOC: MEDOUTP 12:45
PROVIDERS: PCP Physician Assistant; Referring Provider Internal Medicine Hematology & Oncology; Visit Provider Internal Medicine Hematology & Oncology
DX: Z51.89 Encounter for other specified aftercare (principal); D46.20 Refractory anemia with excess of blasts, unspecified
CPT/HCPCS: 36430; 86850; 86900; 86901; 86920; 86922; J7040; P9016; A4216

== ENCOUNTER → 2023-03-06 | Outpatient (CLI) | payer MEDICARE, SELFPAY ==
[2023-03-06 13:40] LABS: Amphetamine Urine VISTA NEGATIVE (<1000 ng/mL); Barbiturate Urine VISTA NEGATIVE (< 200 ng/mL); Benzodiazepine Urine VISTA NEGATIVE (< 200 ng/mL); Cocaine Urine VISTA NEGATIVE (< 300 ng/mL); Ecstacy Urine VISTA NEGATIVE (< 500 ng/mL); Methadone Urine VISTA NEGATIVE (< 300 ng/mL); PCP Urine VISTA NEGATIVE (< 25 ng/mL); THC Urine VISTA NEGATIVE (< 50 ng/mL); Vista UDS pH Range 8
== END | disposition home or self-care (01) ==
PROVIDERS: PCP Physician Assistant; Referring Provider Anesthesiology Pain Medicine; Visit Provider Anesthesiology Pain Medicine
DX: F11.20 Opioid dependence, uncomplicated (principal)
CPT/HCPCS: 80307

== ENCOUNTER 2023-03-07 12:28 | Outpatient (CLI) | payer MEDICARE, SELFPAY ==
[2023-03-07] MEDS: 0.9% NaCl Peripheral Flush Adult/Peds IV (12:39)
[2023-03-07 12:43] VITALS: BP 128/53; PULSE 70; RESP 18; O2SAT 98
[2023-03-07 13:24] VITALS: BP 125/51; PULSE 66; RESP 16; TEMP 36.3; O2SAT 99
[2023-03-07 14:24] VITALS: BP 137/54; PULSE 64; RESP 16; TEMP 36.2
[2023-03-07 15:16] VITALS: BP 137/64; RESP 16
== END 2023-03-07 12:29 | disposition home or self-care (01) ==
LOC: MEDOUTP 12:28
PROVIDERS: PCP Physician Assistant; Referring Provider Internal Medicine Hematology & Oncology; Visit Provider Internal Medicine Hematology & Oncology
DX: D46.20 Refractory anemia with excess of blasts, unspecified (principal)
CPT/HCPCS: 36430; 86850; 86900; 86901; 86920; 86922; J7040; P9016; A4216

== ENCOUNTER 2023-03-07 15:58 | Emergency (ER) | payer MEDICARE, SELFPAY ==
[2023-03-07 15:58] VITALS: BP 155/71; PULSE 76; RESP 18; TEMP 36.2; O2SAT 98; BMI 25.1
[2023-03-07 16:43] LABS: Bacteria 0 SEEN /hpf (None Seen); Mucous, Urine 0 SEEN /hpf (<or=2+); Red Blood Cells-Urine 0 SEEN /hpf (0-5); Squamous Epithelial Cells - UA 0 SEEN /hpf (0-5); White Blood Cells 0 SEEN /hpf (0-5)
[2023-03-07 16:47] LABS: Absolute Lymphocyte Count 0.67 X10^3/uL (0.83-4.51); Absolute Neutrophil Count 2.7 X10^3/uL (2.0-7.7); Basophil# 0.02 X10^3/uL; Basophil% 0.5 % (0-1); Eosinophil# 0.04 X10^3/uL; Eosinophils% 1.1 % (0-5); Hematocrit 25.1 % (40-54); Hemoglobin 8.2 g/dL (13.0-16.5); Lymphocyte # 0.67 X10^3/ul (0.83-4.51); Lymphocyte % 17.9 % (19-41); Mean Corp Hgb Conc 32.7 g/dL (32-36); Mean Corpuscular Hgb 34.7 pg (27.0-32.0); Mean Corpuscular Volume 106.4 fL (80-94); Mean Platelet Vol. 11.7 fl (6.2-12.0); Monocyte# 0.22 X10^3/uL; Monocyte% 5.9 % (0-10); NRBC Flagged by Analyzer 0.8 % (0-5); Neutrophil # 2.67 X10^3/uL (2.7-7.7); Neutrophil % 71.1 % (47-70); POSITIVE MORPHOLOGY YES; Platelet Count 171 K/mm3 (150-450); RBC Distribution Width CV 25.2 % (11.6-14.6); Red Blood Count 2.36 M/mm3 (4.6-6.2); White Blood Count 3.8 K/mm3 (4.4-11.0)
[2023-03-07 16:48] LABS: Color, Urine Yellow (Yellow); Glucose, Dipstick Normal (Normal); Ketone-Dipstick Negative (Negative); Leukocyte Esterase-Dipstick Negative /ul (Negative); Nitrite-Dipstick Negative (Negative); Occult Blood-Urine Negative /ul (Negative); Protein-Dipstick Negative (Negative); Urine Bilirubin Dipstick Negative (Negative); Urine Clarity Clear (Clear); Urine Urobilinogen Normal (Normal)
--- NOTE | 2023-03-07 16:54 | CT_ITS ---
EXAM: CT ABDOMEN AND PELVIS WITH INTRAVENOUS CONTRAST CLINICAL INDICATION: LUQ abd pain TECHNIQUE: Helically acquired images were obtained of the abdomen and pelvis with intravenous contrast. This CT exam was performed using one or more of the following dose reduction techniques: automated exposure control, adjustment of the mA and/or kV according to patient size, and/or use of iterative reconstruction technique. CONTRAST: IV 100mL Isovue-300 COMPARISON: 02/27/2022 FINDINGS: LOWER THORAX: Unremarkable. Lung bases are clear. No cardiomegaly. No significant pericardial effusion. ABDOMEN: LIVER: Unremarkable. Homogeneous. No focal mass. GALLBLADDER AND BILE DUCTS: Unremarkable. No calcified gallstones. No gallbladder distention or wall edema. No intra- or extrahepatic biliary ductal dilation. PANCREAS: Unremarkable. No focal cystic or solid mass. SPLEEN: Spleen measures 14.7 cm. ADRENALS: Unremarkable. No nodules. KIDNEYS AND URETERS: There are peripelvic cysts in the left kidney which are stable. There are also cortical cysts on the right kidney which are stable. No follow-up imaging is necessary. No hydronephrosis. STOMACH AND BOWEL: Unremarkable. No stomach or bowel distention. No focal inflammatory change. PELVIS: APPENDIX: No evidence of acute appendicitis. BLADDER: Unremarkable. REPRODUCTIVE: Unremarkable as visualized. No mass. ABDOMEN and PELVIS: INTRAPERITONEAL SPACE: Unremarkable. No ascites or other fluid collection. No free air. BONES/JOINTS: Unremarkable. No suspicious lytic or blastic abnormality. SOFT TISSUES: Unremarkable. No discrete abdominal or pelvic wall hernia. VASCULATURE: Unremarkable. Abdominal aorta is non-dilated. LYMPH NODES: Unremarkable. No enlarged lymph nodes. CT/Abdomen/Pelvis W IV Cont ONLY IMPRESSION: Stable moderate splenomegaly. No acute abnormalities are identified. There has been no significant change from the reference examination. Electronically Signed: Odell Ibrahim MD at 17:33 EDT ,
--- NOTE | 2023-03-07 16:55 | EDS_ITS ---
HPI HPI - GI History of Present Illness Chief Complaint: Abd Pain Detail of Chief Complaint: Left upper quadrant abdominal pain since yesterday morning. Informant: patient and spouse/S.O. Abdominal Pain/Flank Pain Onset: Yesterday Context: Sudden Onset Timing: Continuous Quality: Aching Location: LUQ Current Severity: Moderate Maximum Severity: Moderate Worsened by: Nothing Relieved by: Nothing Nausea/Vomiting/Emesis GI Symptom: Negative for Nausea or Vomiting Diarrhea/Melena/Hematochezia GI Symptom: Negative for Diarrhea, Melena or Hematochezia Associated Symptoms Associated Symptoms: Negative for Dysuria, Frequency, Hematuria or Urgency Narrative Narrative: 69-year-old male history of myelodysplastic syndrome and cancer. Received blood transfusion yesterday. His only prior abdominal surgery was umbilical hernia repair. States since yesterday morning he has had left upper quadrant abdominal pain come on relatively suddenly. Denies nausea or vomiting. He has had a low- grade temperature 99.3 for several days. Denies any dysuria. No history of diverticulitis. He does have constipation but has been having bowel movements. Prior similar symptoms: No Recent Illness/Hospitalization: No PFSH PFSH Medical History Encounter for education [place] MDS (myelodysplastic syndrome) Myelodysplastic syndrome Pancytopenia Secondary pulmonary arterial hypertension Sensory neuropathy Thrombocytopenia Home Medications montelukast 10 mg tablet 10 mg PO QHS allergies 08/24/18 [History Last Taken 05/08/22] omeprazole 20 mg capsule,delayed release 40 mg PO DAILY GERD 08/24/18 [History Last Taken 05/09/22] pyridoxine (vitamin B6) 100 mg tablet 100 mg PO DAILY supplement 08/24/18 [History Last Taken 05/09/22] calcium carbonate 500 mg calcium (1,250 mg) tablet 500 mg PO DAILY supplement 05/30/20 [History Last Taken 05/09/22] cholecalciferol (vitamin D3) 50 mcg (2,000 unit) capsule 5,000 unit PO DAILY supplement 05/30/20 [History Last Taken 05/09/22] tadalafil 2.5 mg tablet 2.5 mg PO DAILY blood pressure 07/28/20 [History Last Taken 05/09/22] tramadol 50 mg tablet (Ultram) 50 mg PO TID pain 08/13/21 [History Last Taken 05/09/22] ondansetron 4 mg disintegrating tablet 4 mg PO Q8H PRN nausea and vomiting #30 tabs 04/17/22 [Rx Last Taken Unknown] losartan 25 mg tablet 25 mg PO DAILY #90 tabs 04/26/22 [Rx Last Taken 05/09/22] doxazosin 4 mg tablet 4 mg PO QHS bladder 05/01/22 [History Last Taken 05/08/22] sennosides 8.6 mg tablet (senna) 17.2 mg PO BID constipation 05/09/22 [History Last Taken 05/09/22] folic acid 400 mcg tablet 0.4 mg PO DAILY #90 tabs 09/05/22 [Rx Last Taken Unknown] magnesium hydroxide 1,200 mg chewable tablet (Dulcolax (magnesium hydroxide)) 1,200 mg PO DAILY PRN Constipation 10/10/22 [History Last Taken Unknown] quercetin 500 mg capsule 500 mg PO DAILY 10/10/22 [History Last Taken Unknown] furosemide 40 mg tablet (Lasix) 40 mg PO DAILY PRN Edema 01/09/23 [History Last Taken Unknown] luspatercept-aamt 75 mg subcutaneous solution 25 mg subcut Q3W 02/17/23 [History Last Taken Unknown] Allergy/AdvReac Type Severity Reaction Status Date / Time levofloxacin [From Levaquin] Allergy Other Verified 03/07/23 16:01 remdesivir Allergy Other Verified 03/07/23 16:01 sulfamethoxazole AdvReac Other Verified 03/07/23 16:01 [From Bactrim] trimethoprim [From Bactrim] AdvReac Other Verified 03/07/23 16:01 Family History Sister Colon cancer Bleeding disorder Mother Heart disease Diabetes Father CVA (cerebral vascular accident), Onset Age: 95 Surgical History History of bone marrow biopsy History of hernia repair Social History household members: spouse Smoking Status: Former smoker alcohol intake: never substance use type: does not use caffeine: Yes Type: coffee Number of servings: 3 what type of physical activity do you participate in: none shelley/hoahaoism: [employer] seatbelt use: always do you feel safe at home: Yes ROS ROS ED ROS Narrative Abdominal pain. Constipation. Review of Systems ROS Unobtainable: Denies due to encephalopathy Constitutional Constitutional ED: Reports fever(s) and subjective; Denies chills ENT ENT ED: Denies ear pain Cardiovascular Cardiovascular: Denies chest pain Respiratory/Chest Respiratory/Chest: Denies cough or dyspnea Gastrointestinal Gastrointestinal: Reports abdominal pain and constipation; Denies diarrhea, melena, nausea or vomiting Genitourinary Genitourinary ED: Denies dysuria or hematuria Musculoskeletal Musculoskeletal: Denies arthralgias Integumentary Denies abscess Neurologic Neurologic: Denies headache(s) Psychiatric Psychiatric: Denies anxiety Endocrine Endocrinology: Denies polydipsia or polyphagia Hematologic/Lymphatic Hematologic/Lymphatic: Denies easy bleeding Allergic/Immunologic Allergic/Immunologic ED: Denies mouth swelling EXAM Physical Exam Narrative Exam Narrative: Male no acute distress. Vital signs stable afebrile. Temperature 97.2. He does not look septic or toxic. No distress. at bedside. H EENT exam unremarkable. Neck nontender. Lungs clear to auscultation. Heart regular rhythm rate about 75 no murmur. Chest nontender. Abdomen soft nondistended normal bowel sounds no peritoneal signs. Mild left upper quadrant tenderness. No rebound guarding rigidity. Right upper right lower quadrant unremarkable. No hernia or mass. No distention or signs of obstruction. No pulsatile mass. Soft. Moving all 4 extremities. Nontender no edema. Const Vital Signs: 03/07/23 15:58 Temperature 97.2 F L Temperature Source Temporal Pulse Rate 76 Respiratory Rate 18 Blood Pressure 155/71 H Blood Pressure Mean 99 Pulse Ox 98 Oxygen Delivery Method Room Air Positive well nourished and well developed; Negative for obese, cachectic, contractures or unkempt General Appearance ED: well developed and NAD; Negative for unkempt, cachectic, contractures or pallor Nutritional Appearance: Negative for cachectic or obese HEENT Reports moist mucous membranes normocephalic and atraumatic; Negative for trauma or tenderness Eyes PERRL and EOMs intact bilaterally General Eye ED: Negative for pale conjunctiva or scleral icterus Neck no lymphadenopathy, supple and no JVD General: Negative for tenderness Carotids: Negative for other Lymph Lymphatic: Negative for other Resp normal respiratory effort and clear to auscultation bilaterally Effort and Inspection: Negative for respiratory distress Auscultation: Negative for rales, rhonchi or wheezes Cardio regular rate, regular rhythm, S1 normal heart sound, S2 normal heart sound and no murmurs Rate: Negative for bradycardia or tachycardic Rhythm: Negative for abnormal rhythm GI non-distended and no masses; Negative for non-tender GI Narrative: Mild left upper quadrant tenderness. No peritoneal signs. No mass. No obstruction. Right upper and right lower quadrants are unremarkable. Inspection: Negative for abdominal distention Auscultation: normoactive bowel sounds Palpation: soft and tender; Negative for guarding or rigid Back/Spine no CVA tenderness General Back: Negative for CVA tenderness Cervical Spine: Negative for cervical spine tenderness Thoracic Spine / Upper Back: Negative for thoracic spinal tenderness Lumbar Spine / Lower Back: Negative for lumbar spinal tenderness Neuro CN's II-XII intact bilaterally and moves all extremities Sensorium / Orientation: alert, oriented to person, oriented to place and oriented to time; Negative for orientation impaired, confused, lethargic or stuporous Motor Exam: strength 5/5 throughout Psych mental status grossly normal and thought process normal Appearance: Negative for unkempt Attitude: No agitated Mood & Affect: Negative for depressed, anxious or tearful Skin no wounds General Skin Exam: Negative for jaundice or pallor Lesions: no lesions Rashes: no rashes Trauma: Negative for abrasion Nails: Negative for discolored MDM MDM MDM Narrative Medical decision making narrative: Patient with left upper quadrant abdominal pain. Benign exam. CAT scan and labs will be obtained. Repeat exam patient doing well at 6:30 PM. He has very minimal tenderness. We went over his CAT scan and lab results were basically his baseline. He has mild splenomegaly. He has no signs of infection, perforation or obstruction. There is no significant signs of a significant amount of constipation. He and his are comfortable with him being discharged home. Tylenol for pain. Plenty of fluids. Rest. Follow-up as needed or return if worse. History & Record Review Discussion w/independent historian: Patient and Family Additional record(s) reviewed:: Prior inpatient record, Prior outpatient record, Prior ED visit and Prior labs Lab Data Attestation: I reviewed the patient's lab results. Lab results narrative: CBC shows white count 3.8. H&H 8.2 and 25.1. Has a history of chronic anemia from myelodysplastic syndrome. This is his baseline. Platelets 171. Chemistries unremarkable gap of 3. Normal BUN of 12 creatinine 0.8. Glucose 120. Liver enzymes are normal. Urinalysis is negative. Lipase is normal at 39. Basically his labs are his normal baseline with a chronic anemia. CAT scan pelvis shows splenomegaly which is chronic and no acute process as read by the radiologist. Reviewed by me.. Labs: Laboratory Results - last 24 hr 03/07/23 03/07/23 03/07/23 16:38 16:38 16:38 WBC 3.8 L RBC 2.36 L Hgb 8.2 L Hct 25.1 L MCV 106.4 H MCH 34.7 H MCHC 32.7 RDW Std Deviation 92.0 H RDW Coeff of Jcarlos 25.2 H Plt Count 171 MPV 11.7 Immature Gran % (Auto) 3.500 H Neut % (Auto) 71.1 H Lymph % (Auto) 17.9 L [place] % (Auto) 5.9 Eos % (Auto) 1.1 Baso % (Auto) 0.5 Absolute Neuts (auto) 2.7 Absolute Lymphs (auto) 0.67 L Nucleated RBC % 0.8 Platelet Estimate ADEQUATE RBC Morphology N CHROM Hypochromasia 1+ Anisocytosis 1+ Macrocytosis 1+ Sodium 137 Potassium 4.2 Chloride 106 Carbon Dioxide 28.0 Anion Gap 3 L BUN 12 Creatinine 0.80 Estim Creat Clear Calc 78.58 Est GFR (MDRD) Af Amer 119 Est GFR (MDRD) Non-Af 99 BUN/Creatinine Ratio 14.9 Glucose 120 H Calcium 9.1 Total Bilirubin 1.40 H AST 24 ALT 45 Alkaline Phosphatase 88 Total Protein 6.6 Albumin 3.8 Globulin 2.8 Albumin/Globulin Ratio 1.4 Lipase Urine Color Yellow Urine Clarity Clear Urine pH 7.0 Ur Specific Rogers 1.010 Urine Protein Negative Urine Glucose (UA) Normal Urine Ketones Negative Urine Occult Blood Negative Urine Nitrite Negative Urine Bilirubin Negative Urine Urobilinogen Normal Ur Leukocyte Esterase Negative Urine RBC 0 SEEN Urine WBC 0 SEEN Ur Squamous Epith Cells 0 SEEN Urine Bacteria 0 SEEN Urine Mucus 0 SEEN 03/07/23 16:38 WBC RBC Hgb Hct MCV MCH MCHC RDW Std Deviation RDW Coeff of Jcarlos Plt Count MPV Immature Gran % (Auto) Neut % (Auto) Lymph % (Auto) [place] % (Auto) Eos % (Auto) Baso % (Auto) Absolute Neuts (auto) Absolute Lymphs (auto) Nucleated RBC % Platelet Estimate RBC Morphology Hypochromasia Anisocytosis Macrocytosis Sodium Potassium Chloride Carbon Dioxide Anion Gap BUN Creatinine Estim Creat Clear Calc Est GFR (MDRD) Af Amer Est GFR (MDRD) Non-Af BUN/Creatinine Ratio Glucose Calcium Total Bilirubin AST ALT Alkaline Phosphatase Total Protein Albumin Globulin Albumin/Globulin Ratio Lipase 39 Urine Color Urine Clarity Urine pH Ur Specific Rogers Urine Protein Urine Glucose (UA) Urine Ketones Urine Occult Blood Urine Nitrite Urine Bilirubin Urine Urobilinogen Ur Leukocyte Esterase Urine RBC Urine WBC Ur Squamous Epith Cells Urine Bacteria Urine Mucus Radiography Diagnostic Testing: Clinical Impression(s) from Imaging Studies Abdomen/Pelvis CT 03/07/23 16:54 IMPRESSION: Stable moderate splenomegaly. No acute abnormalities are identified. There has been no significant change from the reference examination. Electronically Signed: Odell Ibrahim MD at 17:33 EDT , Discharge Plan Triage Chief Complaint: Abd Pain ED Provider: Chaim Garcia Dx/Rx/DC Orders Clinical Impression: Abdominal pain, [place] macroglobulinemia, Myelodysplastic syndrome Instructions: Abdominal Pain Prescriptions: No Action tramadol [Ultram] 50 mg tablet 50 mg PO TID Label Comments: TAKE 1 TABLET BY MOUTH EVERY 6 HOURS NEEDED FOR PAIN losartan 25 mg tablet 25 mg PO DAILY Qty: 90 3RF ondansetron 4 mg tablet,disintegrating 4 mg PO Q8H PRN (Reason: nausea and vomiting) Qty: 30 2RF folic acid 400 mcg tablet 0.4 mg PO DAILY Qty: 90 3RF quercetin 500 mg capsule 500 mg PO DAILY Dulcolax (magnesium hydroxide) 1,200 mg tablet,chewable 1,200 mg PO DAILY PRN (Reason: Constipation) luspatercept-aamt 75 mg recon soln 25 mg subcut Q3W omeprazole 20 MG capsule 40 mg PO DAILY montelukast 10 MG tablet 10 mg PO QHS pyridoxine (vitamin B6) 100 MG tablet 100 mg PO DAILY calcium carbonate 500 MG tablet 500 mg PO DAILY cholecalciferol (vitamin D3) 2,000 UNIT capsule 5,000 unit PO DAILY tadalafil 2.5 MG tablet 2.5 mg PO DAILY doxazosin 4 mg tablet 4 mg PO QHS sennosides [senna] 8.6 mg Tablet 17.2 mg PO BID furosemide [Lasix] 40 mg tablet 40 mg PO DAILY PRN (Reason: Edema) Primary Care Provider: Sunday Carter Referrals: Sunday Carter PA [Primary Care Provider] - 1 Week if not improving Activity Restrictions/Additional Instructions: Tylenol for pain. Your labs and CAT scan were basically unremarkable. Follow-up with your primary care provider if not improving. Disposition Disposition: Home, Self Care
[2023-03-07 17:03] LABS: ALB/GLOB Ratio 1.4 RATIO (0.9-2.4); AST(SGOT) 24 U/L (15-37); Alanine Aminotransfer ALT/SGPT 45 U/L (16-61); Albumin, Serum 3.8 g/dL (3.2-5.0); Alkaline Phosphatase 88 U/L (45-117); Anion Gap 3 (5-15); BUN 12 mg/dL (7-18); BUN/Creat Ratio 14.9 RATIO (10-20); Calcium,Total 9.1 mg/dL (8.5-10.1); Chloride 106 mmol/L (98-107); EST Glomerular Filtration Rate 99 mL/min (>60); Est Glom Filt Rate - Afr Amer 119 mL/min (>60); Estimated Creatinine Clearance 78.58 ml/min; Globulin 2.8 g/dL (2.2-4.2); Glucose 120 mg/dL (74-106); Potassium 4.2 mmol/L (3.5-5.1); Protein, Total 6.6 g/dL (6.4-8.2); Sodium Level 137 mmol/L (136-145)
[2023-03-07] MEDS: Ondansetron 4 MG/2 ML Vial IV (17:05)
[2023-03-07] MEDS: morphine 8 MG/ML Syringe 6 MG IV (17:05)
[2023-03-07 17:17] LABS: Differential Indicated SCAN CRITERIA MET
[2023-03-07 17:18] LABS: Anisocytosis 1+; Platelet Estimate ADEQUATE (ADEQ); Red Cell Morphology N CHROM NORMAL (NORM C&C)
[2023-03-07 17:19] LABS: Hypochromasia 1+; Macrocytosis 1+
[2023-03-07 18:01] LABS: Lipase 39 U/L (13-75)
[2023-03-07 18:56] VITALS: BP 143/71; PULSE 76; RESP 14; O2SAT 99
== END 2023-03-07 18:57 | disposition home or self-care (01) ==
PROVIDERS: Emergency Provider Emergency Medicine; PCP Physician Assistant; Visit Provider Emergency Medicine
DX: R10.12 Left upper quadrant pain (principal); D46.20 Refractory anemia with excess of blasts, unspecified; C88.0 Waldenstrom macroglobulinemia; R50.9 Fever, unspecified; R16.1 Splenomegaly, not elsewhere classified; I10 Essential (primary) hypertension; Z79.899 Other long term (current) drug therapy; Z87.891 Personal history of nicotine dependence
CPT/HCPCS: 36430; 74177; 80053; 81001; 83690; 85025; 86850; 86900; 86901; 86920; 86922; 96374; 96375; 99283; J7030; J7040; P9016; Q9967; A4216; J2405

== ENCOUNTER → 2023-03-10 | Outpatient (CLI) | payer MEDICARE, SELFPAY ==
--- NOTE | 2023-03-10 09:59 | ECHODONC_ITS ---
Reason For Study: DYSPNEA/SOB Procedure This was a 2D Doppler, Color Flow transthoracic echocardiogram. Myocardial strain analysis was performed in this exam to aid in the assessment of cardiac function. Exam performed in department. Left Ventricle Normal LV size. Left ventricular systolic function is normal. The estimated ejection fraction is 60 %. Stage 2 diastolic dysfunction. No regional wall motion abnormalities noted. Right Ventricle Normal RV size. Normal systolic function. Atria Normal left atrium. Normal right atrium. Mitral Valve There is mild mitral annular calcification. Mild (1+) eccentric mitral valve insufficiency. Tricuspid Valve Normal tricuspid valve. Mild (1+) tricuspid valve insufficiency. Pulmonary artery systolic pressure is 35 mmHg. Aortic Valve Trisinus/trileaflet aortic valve. Mild focal aortic valve calcification. Pulmonic Valve Normal pulmonic valve. Great Vessels Normal aortic root. The pulmonary artery is normal size. Normal inferior vena cava. Pericardium/Pleural No pericardial effusion. MMode/2D Measurements & Calculations LVIDd: 4.7 cm IVSd: 1.2 cm Ao root diam: 3.3 cm LVIDs: 3.3 cm LVPWd: 0.90 cm RVDd: 3.7 cm FS: 29.3 % LAV(MOD-bp): 41.5 ml LVAd ap4: 35.9 cm2 SV(MOD-sp4): 65.9 ml LAV(MOD-bp) Indexed: 21.3 ml/m2 LVLd ap4: 8.8 cm LAV(MOD-sp2): 42.7 ml EDV(MOD-sp4): 120.0 ml LAV(MOD-sp4): 39.8 ml EDV(sp4-el): 124.2 ml LVAs ap4: 21.9 cm2 LVLs ap4: 7.3 cm ESV(MOD-sp4): 54.1 ml ESV(sp4-el): 55.5 ml EF(MOD-sp4): 54.9 % EF(sp4-el): 55.3 % SV(sp4-el): 68.7 ml LA A4 area: 16.5 cm2 LA dimension(2D): 3.7 cm RA A4 area: 15.3 cm2 Time Measurements MV dec time: 0.24 sec Doppler Measurements & Calculations MV E max [place]: 100.8 cm/sec Lat Peak E' [place]: 10.4 cm/sec Med Peak E' [place]: 7.8 cm/sec MV A max [place]: 98.4 cm/sec E/E' lat: 9.7 E/E' med: 12.9 MV E/A: 1.0 Ao V2 max: 164.5 cm/sec LV V1 max: 92.5 cm/sec PA V2 max: 102.4 cm/sec Ao max P.8 mmHg LV V1 max P.4 mmHg TR max [place]: 280.1 cm/sec TR max P.4 mmHg ECHO/ONC Echo Complete Interpretation Summary Normal LV size. Left ventricular systolic function is normal. The estimated ejection fraction is 60 %. Mild (1+) eccentric mitral valve insufficiency. Stage 2 diastolic dysfunction. The global longitudinal strain is mildly abnormal. The global longitudinal stra in = -15.4% (abnormal). Ordering Physician: Aysha Gee/Venkatesh Cast Referring Physician: Sunday HERNANDEZ Performed By: Avis Doss RDCS
== END | disposition home or self-care (01) ==
LOC: CVS 09:57
PROVIDERS: PCP Physician Assistant; Referring Provider Physician Assistant Medical; Visit Provider Physician Assistant Medical
DX: I27.21 Secondary pulmonary arterial hypertension (principal); R06.02 Shortness of breath
CPT/HCPCS: 93306; 93356

== ENCOUNTER → 2023-03-20 | Outpatient (CLI) | payer MEDICARE, SELFPAY | END | disposition home or self-care (01) | LOC: LABSPEC 12:45 | PROVIDERS: PCP Physician Assistant; Referring Provider Internal Medicine Hematology & Oncology; Visit Provider Internal Medicine Hematology & Oncology | DX: D46.9 Myelodysplastic syndrome, unspecified (principal) | CPT/HCPCS: 86850; 86900; 86901; 86920; 86922 ==

== ENCOUNTER 2023-03-21 11:00 | Outpatient (CLI) | payer MEDICARE, SELFPAY ==
[2023-03-21] MEDS: 0.9% NaCl Peripheral Flush Adult/Peds IV (11:14)
[2023-03-21 11:23] VITALS: BP 130/51; PULSE 65; RESP 16; TEMP 36; O2SAT 96
[2023-03-21 11:57] VITALS: BP 131/50; PULSE 65; RESP 16; TEMP 36; O2SAT 96
[2023-03-21 12:57] VITALS: BP 142/52; PULSE 67; RESP 16; TEMP 36.4; O2SAT 98
[2023-03-21 13:40] VITALS: BP 131/55; PULSE 63; RESP 16; TEMP 36.4; O2SAT 97
== END 2023-03-21 11:01 | disposition home or self-care (01) ==
LOC: MEDOUTP 11:00
PROVIDERS: PCP Physician Assistant; Referring Provider Internal Medicine Hematology & Oncology; Visit Provider Internal Medicine Hematology & Oncology
DX: D46.20 Refractory anemia with excess of blasts, unspecified (principal)
CPT/HCPCS: 36430; 86850; 86900; 86901; 86920; 86922; J7040; P9016; A4216

== ENCOUNTER 2023-04-04 08:51 | Outpatient (CLI) | payer MEDICARE, SELFPAY ==
[2023-04-04 08:57] VITALS: BP 130/57; PULSE 69; RESP 16; TEMP 36.1; O2SAT 100
[2023-04-04 09:31] VITALS: BP 130/54; PULSE 65; RESP 16; TEMP 36.9
[2023-04-04 10:31] VITALS: BP 141/62; PULSE 58; RESP 16; TEMP 36.4
[2023-04-04 11:18] VITALS: BP 142/64; PULSE 54; RESP 16; TEMP 36.6; O2SAT 99
== END 2023-04-04 08:52 | disposition home or self-care (01) ==
LOC: MEDOUTP 08:51
PROVIDERS: PCP Physician Assistant; Referring Provider Internal Medicine Hematology & Oncology; Visit Provider Internal Medicine Hematology & Oncology
DX: D46.20 Refractory anemia with excess of blasts, unspecified (principal)
CPT/HCPCS: 36430; 86850; 86900; 86901; 86920; 86922; J7040; P9016; A4216

== ENCOUNTER 2023-05-02 10:41 | Outpatient (CLI) | payer MEDICARE, SELFPAY ==
[2023-05-02 11:06] VITALS: BP 132/52; PULSE 67; RESP 16; TEMP 36.1; O2SAT 97; BMI 24.3
[2023-05-02 11:41] VITALS: BP 138/55; PULSE 65; RESP 16; TEMP 36; O2SAT 96
[2023-05-02 12:38] VITALS: BP 138/63; PULSE 57; RESP 16; TEMP 35.8
[2023-05-02 13:38] VITALS: BP 143/53; PULSE 60; RESP 12; TEMP 35.9; O2SAT 99
== END 2023-05-02 10:42 | disposition home or self-care (01) ==
LOC: MEDOUTP 10:41
PROVIDERS: PCP Physician Assistant; Referring Provider Internal Medicine Hematology & Oncology; Visit Provider Internal Medicine Hematology & Oncology
DX: D46.20 Refractory anemia with excess of blasts, unspecified (principal)
CPT/HCPCS: 36430; 86644; 86850; 86900; 86901; 86920; 86922; J7040; P9040; A4216

== ENCOUNTER 2023-06-06 12:43 | Outpatient (CLI) | payer MEDICARE, SELFPAY ==
[2023-06-06 11:14] VITALS: BP 137/53; PULSE 68; RESP 16; TEMP 36.8; O2SAT 100; BMI 24.3
[2023-06-06 11:38] VITALS: BP 127/50; PULSE 64; RESP 16; TEMP 36.6; O2SAT 100
[2023-06-06 12:38] VITALS: BP 138/53; PULSE 61; RESP 16; TEMP 36.5; O2SAT 100
[2023-06-06 13:00] VITALS: BP 130/51; PULSE 62; RESP 14; TEMP 36.4; O2SAT 99
== END 2023-06-06 15:13 | disposition home or self-care (01) ==
LOC: MEDOUTP 15:14
PROVIDERS: PCP Physician Assistant; Visit Provider Internal Medicine Hematology & Oncology
DX: D46.20 Refractory anemia with excess of blasts, unspecified (principal)
CPT/HCPCS: 36430; 86850; 86900; 86901; 86920; 86922; J7040; P9016; A4216

== ENCOUNTER 2023-06-19 16:20 | Emergency (ER) | payer MEDICARE, SELFPAY ==
[2023-06-19 16:21] VITALS: BP 166/68; PULSE 81; RESP 16; TEMP 36.6; O2SAT 99; BMI 26.5
--- NOTE | 2023-06-19 16:45 | RAD_ITS ---
INDICATION: Trauma, fall, chest wall pain EXAMINATION/TECHNIQUE: X-RAY - portable upright AP chest x-ray COMPARISON: 05/09/2022 FINDINGS: LINES/DEVICES: None. LUNGS: No consolidation, edema or effusion. No pneumothorax. MEDIASTINUM AND CARDIOVASCULAR STRUCTURES: Cardiac silhouette not enlarged. Central airways and mediastinal contour are unremarkable. BONES AND SOFT TISSUES: Unremarkable. RAD/Chest 1 View (Portable) IMPRESSION: No radiographic evidence of acute cardiopulmonary disease. Electronically Signed: Natanael Milian MD at 17:03 EDT ,
--- NOTE | 2023-06-19 16:49 | EX.ED.GENINJ ---
HPI <MENDEL Elliott - Last Filed: 06/19/23 21:39> History of Present Illness Chief Complaint: Fall Narrative Narrative: Patient presenting today for evaluation due to a fall that occurred 2 weeks ago. He reports that he was sitting on the toilet around 2 AM and fell asleep and fell forward causing his chest to hit it against the bottom drawer of a cabinet. He reports that since then he has had pain to his anterior chest wall whenever he moves or takes a deep breath. He has been taking his prescribed tramadol and Tylenol with minimal relief of his symptoms. He denies feeling short of breath. He denies any fevers, chills, abdominal pain, nausea, or vomiting. He has a history of MDS. [facility] <MENDEL Elliott - Last Filed: 06/19/23 21:39> [facility] Medical History Encounter for education [place] MDS (myelodysplastic syndrome) Myelodysplastic syndrome Pancytopenia Secondary pulmonary arterial hypertension Sensory neuropathy Thrombocytopenia Home Medications montelukast 10 mg tablet 10 mg PO QHS allergies 08/24/18 [History Last Taken 05/08/22] omeprazole 20 mg capsule,delayed release 40 mg PO DAILY GERD 08/24/18 [History Last Taken 05/09/22] pyridoxine (vitamin B6) 100 mg tablet 100 mg PO DAILY supplement 08/24/18 [History Last Taken 05/09/22] calcium carbonate 500 mg calcium (1,250 mg) tablet 500 mg PO DAILY supplement 05/30/20 [History Last Taken 05/09/22] cholecalciferol (vitamin D3) 50 mcg (2,000 unit) capsule 5,000 unit PO DAILY supplement 05/30/20 [History Last Taken 05/09/22] tadalafil 2.5 mg tablet 2.5 mg PO DAILY blood pressure 07/28/20 [History Last Taken 05/09/22] tramadol 50 mg tablet (Ultram) 50 mg PO TID pain 08/13/21 [History Last Taken 05/09/22] ondansetron 4 mg disintegrating tablet 4 mg PO Q8H PRN nausea and vomiting #30 tabs 04/17/22 [Rx Last Taken Unknown] losartan 25 mg tablet 25 mg PO DAILY #90 tabs 04/26/22 [Rx Last Taken 05/09/22] doxazosin 4 mg tablet 4 mg PO QHS bladder 05/01/22 [History Last Taken 05/08/22] folic acid 400 mcg tablet 0.4 mg PO DAILY #90 tabs 09/05/22 [Rx Last Taken Unknown] magnesium hydroxide 1,200 mg chewable tablet (Dulcolax (magnesium hydroxide)) 1,200 mg PO DAILY PRN Constipation 10/10/22 [History Last Taken Unknown] quercetin 500 mg capsule 500 mg PO DAILY 10/10/22 [History Last Taken Unknown] furosemide 40 mg tablet (Lasix) 40 mg PO DAILY PRN Edema 01/09/23 [History Last Taken Unknown] luspatercept-aamt 75 mg subcutaneous solution 25 mg subcut Q3W 02/17/23 [History Last Taken Unknown] sennosides 8.6 mg-docusate sodium 50 mg capsule (Senna Plus) 1 tab-cap PO QHS 04/18/23 [History Last Taken Unknown] Allergy/AdvReac Type Severity Reaction Status Date / Time levofloxacin [From Levaquin] Allergy Other Verified 06/19/23 16:24 remdesivir Allergy Other Verified 06/19/23 16:24 sulfamethoxazole AdvReac Other Verified 06/19/23 16:24 [From Bactrim] trimethoprim [From Bactrim] AdvReac Other Verified 06/19/23 16:24 Family History Sister Colon cancer Bleeding disorder Mother Heart disease Diabetes Father CVA (cerebral vascular accident), Onset Age: 95 Surgical History History of bone marrow biopsy History of hernia repair Social History household members: spouse Smoking Status: Former smoker alcohol intake: never substance use type: does not use caffeine: Yes Type: coffee Number of servings: 3 what type of physical activity do you participate in: none shelley/zoroastrianism: Christianity seatbelt use: always do you feel safe at home: Yes ROS <MENDEL Elliott - Last Filed: 06/19/23 21:39> ROS ED Constitutional Constitutional ED: Denies chills or fever(s) Eyes Eyes: Denies change in vision Cardiovascular Cardiovascular: Reports other Details: Positive for chest wall pain ; Denies palpitations Respiratory/Chest Respiratory/Chest: Denies cough or dyspnea Gastrointestinal Gastrointestinal: Denies abdominal pain, nausea or vomiting Musculoskeletal Musculoskeletal: Reports back pain; Denies myalgias or neck pain Integumentary Denies Abrasions or rash Neurologic Neurologic: Reports weakness; Denies paresthesias EXAM <MENDEL Elliott - Last Filed: 06/19/23 21:39> Physical Exam Const Vital Signs: 06/19/23 16:21 06/19/23 17:15 06/19/23 18:41 Temperature 98 F Temperature Source Temporal Pulse Rate 81 79 Respiratory Rate 16 18 Respiratory Effort Normal Non-Labored Respiratory Depth Normal Respiratory Pattern Normal Blood Pressure 166/68 H 137/74 H Blood Pressure Mean 100 95 Pulse Ox 99 99 Oxygen Delivery Method Room Air Room Air Positive well nourished, well developed and no apparent distress General Appearance ED: well developed HEENT Reports normocephalic and head/scalp atraumatic Mouth ED: Yes moist mucous membranes normal Eyes PERRL and EOMs intact bilaterally Neck full ROM and supple Chest Wall inspection of chest normal Chest Narrative: Palpate to palpation to the left anterior chest wall, no pain to palpation to the sternum. Resp normal respiratory effort and clear to auscultation bilaterally Cardio regular rate and regular rhythm GI soft to palpation, non-tender, non-distended and no masses Back/Spine normal ROM and normal to inspection Back/Spine Narrative: Left-sided paraspinal tenderness to the thoracic spine. Extremity normal to inspection and full ROM Neuro oriented x3, CN's II-XII intact bilaterally, moves all extremities, no focal motor deficits and no sensory deficits noted Sensorium / Orientation: awake and alert Psych mental status grossly normal and thought process normal Skin no rashes or lesions noted and no wounds <Dr. Jose Grimaldo MD - Last Filed: 06/20/23 02:03> Physical Exam Const Vital Signs: 06/19/23 16:21 06/19/23 17:15 06/19/23 18:41 Temperature 98 F Temperature Source Temporal Pulse Rate 81 79 Respiratory Rate 16 18 Respiratory Effort Normal Non-Labored Respiratory Depth Normal Respiratory Pattern Normal Blood Pressure 166/68 H 137/74 H Blood Pressure Mean 100 95 Pulse Ox 99 99 Oxygen Delivery Method Room Air Room Air [facility] <MENDEL Elliott - Last Filed: 06/19/23 21:39> [facility] Narrative Medical decision making narrative: Patient presenting for evaluation due to pain to his anterior chest wall after falling off the toilet 2 weeks ago and hitting his chest against the bottom door of a cabinet. He did hit his head during that time but did not lose consciousness. He denies any increased confusion, nausea, vomiting, visual changes, dizziness. He does have pain to palpation to his left anterior chest as well as left thoracic paraspinal tenderness. Chest x-ray will be obtained to rule out rib fracture. On further examination, patient does appear to be pale and has a history of anemia. He told the attending that he does feel short of breath on exertion and has been feeling more fatigued recently, labs will be obtained to rule out leukocytosis, anemia, electrolyte abnormality, and BRIAN. Patient is anemic with a hemoglobin of 7.9. I did offer to give patient a unit of blood due to his symptomatic anemia but he would like to come back in the morning for this. Attending did speak with patient's on-call oncologist who will write an order for patient to have a blood transfusion in the morning. Patient is comfortable with this plan. X-ray was negative for fracture. He will be discharged home in stable condition and is comfortable with plan. Lab Data Attestation: I reviewed the patient's lab results. Lab results narrative: H&H 7.9 and 24.0, BMP unremarkable Labs: Laboratory Results - last 24 hr 06/19/23 06/19/23 17:00 17:05 WBC 3.5 L RBC 2.11 L Hgb 7.9 L Hct 24.0 L MCV 113.7 H MCH 37.4 H MCHC 32.9 RDW Std Deviation 102.3 H RDW Coeff of Jcarlos 25.2 H Plt Count 189 MPV 11.4 Immature Gran % (Auto) 4.000 H Neut % (Auto) 69.0 Lymph % (Auto) 20.1 Phelps % (Auto) 5.7 Eos % (Auto) 0.9 Baso % (Auto) 0.3 Absolute Neuts (auto) 2.4 Absolute Lymphs (auto) 0.70 L Nucleated RBC % 0.9 Differential Comment SCANNED Hypochromasia 1+ Anisocytosis 3+ Crenated Cell 1+ Schistocytes RARE Sodium 138 Potassium 4.5 Chloride 106 Carbon Dioxide 27.0 Anion Gap 5 BUN 12 Creatinine 0.82 Estim Creat Clear Calc 70.67 Est GFR (MDRD) Af Amer 117 Est GFR (MDRD) Non-Af 97 BUN/Creatinine Ratio 14.7 Glucose 110 H Calcium 9.2 Blood Type B POSITIVE Antibody Screen NEGATIVE Crossmatch See Detail Radiography X-Ray: Read by ED Physician and Read by Radiologist Diagnostic Testing: Clinical Impression(s) from Imaging Studies Chest X-Ray 06/19/23 16:45 IMPRESSION: No radiographic evidence of acute cardiopulmonary disease. Electronically Signed: Natanael Milian MD at 17:03 EDT , <Dr. Jose Grimaldo MD - Last Filed: 06/20/23 02:03> [facility] Narrative Medical decision making narrative: Patient presenting for evaluation due to pain to his anterior chest wall after falling off the toilet 2 weeks ago and hitting his chest against the bottom door of a cabinet. He did hit his head during that time but did not lose consciousness. He denies any increased confusion, nausea, vomiting, visual changes, dizziness. He does have pain to palpation to his left anterior chest as well as left thoracic paraspinal tenderness. Chest x-ray will be obtained to rule out rib fracture. On further examination, patient does appear to be pale and has a history of anemia. He told the attending that he does feel short of breath on exertion and has been feeling more fatigued recently, labs will be obtained to rule out leukocytosis, anemia, electrolyte abnormality, and BRIAN. Patient is anemic with a hemoglobin of 7.9. I did offer to give patient a unit of blood due to his symptomatic anemia but he would like to come back in the morning for this. Attending did speak with patient's on-call oncologist who will write an order for patient to have a blood transfusion in the morning. Patient is comfortable with this plan. X-ray was negative for fracture. He will be discharged home in stable condition and is comfortable with plan. I have personally performed a face to face assessment of the patient and have reviewed the OSWALD Note. I performed a substantive portion of the visit including all aspects of the following. My ellis findings include: History is remarkable for anterior chest pain due to fall. He localizes the pain over the sternum and left side of chest. He denies shortness of breath. He reports increased pain with movement and deep breathing. He does endorse dyspnea with activity, fatigue, pica and history of anemia due to MDS. He has required transfusions in the past. Exam is remarkable for patient being pale. Conjunctive is pale. There is erythema creases of the palms. Patient does have reproducible pain over the sternum. There is no crepitus subcutaneous air. Breath sounds are symmetric. There is no hyperresonance to percussion. Heart is regular. Rate is normal. There is no murmur, gallop or rub. Medical Decision Making x-ray was obtained to assess for sternal fracture, rib fractures and hemothorax/pneumothorax. CBC was obtained to assess H&H since he has symptomatic anemia and appears pale. Other additions or changes: Patient was typed and crossed for 1 unit of blood. Nurse practitioner Selene on-call for Dr. Han will contact patient with time for blood transfusion tomorrow. Lab Data Labs: Laboratory Results - last 24 hr 06/19/23 06/19/23 17:00 17:05 WBC 3.5 L RBC 2.11 L Hgb 7.9 L Hct 24.0 L MCV 113.7 H MCH 37.4 H MCHC 32.9 RDW Std Deviation 102.3 H RDW Coeff of Jcarlos 25.2 H Plt Count 189 MPV 11.4 Immature Gran % (Auto) 4.000 H Neut % (Auto) 69.0 Lymph % (Auto) 20.1 Phelps % (Auto) 5.7 Eos % (Auto) 0.9 Baso % (Auto) 0.3 Absolute Neuts (auto) 2.4 Absolute Lymphs (auto) 0.70 L Nucleated RBC % 0.9 Differential Comment SCANNED Hypochromasia 1+ Anisocytosis 3+ Crenated Cell 1+ Schistocytes RARE Sodium 138 Potassium 4.5 Chloride 106 Carbon Dioxide 27.0 Anion Gap 5 BUN 12 Creatinine 0.82 Estim Creat Clear Calc 70.67 Est GFR (MDRD) Af Amer 117 Est GFR (MDRD) Non-Af 97 BUN/Creatinine Ratio 14.7 Glucose 110 H Calcium 9.2 Blood Type B POSITIVE Antibody Screen NEGATIVE Crossmatch See Detail Radiography Diagnostic Testing: Clinical Impression(s) from Imaging Studies Chest X-Ray 06/19/23 16:45 IMPRESSION: No radiographic evidence of acute cardiopulmonary disease. Electronically Signed: Natanael Milian MD at 17:03 EDT Reading Location ID and State: [facility] [place] Tel , Service support , Discharge Plan Triage Chief Complaint: Fall ED Midlevel Provider: Sydnee De Jesus ED Provider: Jose Grimaldo Dx/Rx/DC Orders Clinical Impression: Signs and symptoms of anemia, Myelodysplastic syndrome, Chest wall contusion, Waldenstrom macroglobulinemia, HTN (hypertension), benign, Symptomatic anemia Instructions: Anemia, ED Chest Wall Contusion Prescriptions: No Action tramadol [Ultram] 50 mg tablet 50 mg PO TID Patient Comments: TAKE 1 TABLET BY MOUTH EVERY 6 HOURS NEEDED FOR PAIN losartan 25 mg tablet 25 mg PO DAILY Qty: 90 3RF ondansetron 4 mg tablet,disintegrating 4 mg PO Q8H PRN (Reason: nausea and vomiting) Qty: 30 2RF folic acid 400 mcg tablet 0.4 mg PO DAILY Qty: 90 3RF quercetin 500 mg capsule 500 mg PO DAILY Dulcolax (magnesium hydroxide) 1,200 mg tablet,chewable 1,200 mg PO DAILY PRN (Reason: Constipation) luspatercept-aamt 75 mg recon soln 25 mg subcut Q3W Senna Plus 8.6-50 mg capsule 1 tab-cap PO QHS omeprazole 20 MG capsule 40 mg PO DAILY montelukast 10 MG tablet 10 mg PO QHS pyridoxine (vitamin B6) 100 MG tablet 100 mg PO DAILY calcium carbonate 500 MG tablet 500 mg PO DAILY cholecalciferol (vitamin D3) 2,000 UNIT capsule 5,000 unit PO DAILY tadalafil 2.5 MG tablet 2.5 mg PO DAILY doxazosin 4 mg tablet 4 mg PO QHS furosemide [Lasix] 40 mg tablet 40 mg PO DAILY PRN (Reason: Edema) Primary Care Provider: Sunday Carter Referrals: Sunday Carter PA [Primary Care Provider] - Activity Restrictions/Additional Instructions: Please follow-up tomorrow to have a blood transfusion and return for any worsening of your symptoms. Follow-up with your PCP in 3 to 5 days. Disposition Disposition: Home, Self Care Discharge Date/Time: 06/19/23 18:42
[2023-06-19 17:14] LABS: Absolute Neutrophil Count 2.4 X10^3/uL (2.0-7.7); Basophil# 0.01 X10^3/uL; Basophil% 0.3 % (0-1); Eosinophil# 0.03 X10^3/uL; Eosinophils% 0.9 % (0-5); Hemoglobin 7.9 g/dL (13.0-16.5); Lymphocyte % 20.1 % (19-41); Mean Corp Hgb Conc 32.9 g/dL (32-36); Mean Corpuscular Hgb 37.4 pg (27.0-32.0); Mean Corpuscular Volume 113.7 fL (80-94); Mean Platelet Vol. 11.4 fl (6.2-12.0); Monocyte% 5.7 % (0-10); NRBC Flagged by Analyzer 0.9 % (0-5); Neutrophil # 2.41 X10^3/uL (2.7-7.7); POSITIVE MORPHOLOGY YES; Platelet Count 189 K/mm3 (150-450); RBC Distribution Width CV 25.2 % (11.6-14.6); Red Blood Count 2.11 M/mm3 (4.6-6.2); White Blood Count 3.5 K/mm3 (4.4-11.0)
[2023-06-19 17:34] LABS: RBC Distribution Width SD 102.3 fl (35.1-43.9)
[2023-06-19 17:35] LABS: Anion Gap 5 (5-15); BUN 12 mg/dL (7-18); BUN/Creat Ratio 14.7 RATIO (10-20); Calcium,Total 9.2 mg/dL (8.5-10.1); Chloride 106 mmol/L (98-107); Creatinine, Serum 0.82 mg/dL (0.70-1.30); Differential Indicated SCAN CRITERIA MET; EST Glomerular Filtration Rate 97 mL/min (>60); Est Glom Filt Rate - Afr Amer 117 mL/min (>60); Estimated Creatinine Clearance 70.67 ml/min; Glucose 110 mg/dL (74-106); Potassium 4.5 mmol/L (3.5-5.1); Sodium Level 138 mmol/L (136-145)
[2023-06-19 18:00] LABS: Differential Comment SCANNED
[2023-06-19 18:01] LABS: Anisocytosis 3+
[2023-06-19 18:02] LABS: Crenated RBC 1+; Hypochromasia 1+; Schistocytes RARE
[2023-06-19 18:41] VITALS: BP 137/74; PULSE 79; RESP 18; O2SAT 99
== END 2023-06-19 18:42 | disposition home or self-care (01) ==
PROVIDERS: Emergency Provider Emergency Medicine; PCP Physician Assistant; Visit Provider Emergency Medicine
DX: S20.20XA Contusion of thorax, unspecified, initial encounter (principal); D46.9 Myelodysplastic syndrome, unspecified; I27.21 Secondary pulmonary arterial hypertension; C88.0 Waldenstrom macroglobulinemia; D69.6 Thrombocytopenia, unspecified; I10 Essential (primary) hypertension; W18.12XA Fall from or off toilet with subsequent striking against object, initial encounter; R06.02 Shortness of breath; Z79.899 Other long term (current) drug therapy; Z87.891 Personal history of nicotine dependence
CPT/HCPCS: 71045; 80048; 85025; 86850; 86900; 86901; 86920; 99283; A4216

== ENCOUNTER 2023-06-20 10:34 | Outpatient (CLI) | payer MEDICARE, SELFPAY ==
[2023-06-20 10:50] VITALS: BP 134/61; PULSE 74; RESP 16; TEMP 36.3; O2SAT 97
[2023-06-20 11:24] VITALS: BP 129/49; PULSE 70; RESP 16; O2SAT 96
[2023-06-20 12:24] VITALS: BP 130/63; PULSE 66; RESP 16; TEMP 36.3
[2023-06-20 13:15] VITALS: BP 135/58; PULSE 60; RESP 16; O2SAT 97
== END 2023-06-20 10:35 | disposition home or self-care (01) ==
LOC: MEDOUTP 10:37
PROVIDERS: PCP Physician Assistant; Referring Provider Emergency Medicine; Visit Provider Emergency Medicine
DX: D64.9 Anemia, unspecified (principal)
CPT/HCPCS: 36430; 86920; J7040; P9016; A4216

== ENCOUNTER 2023-07-04 10:55 | Outpatient (CLI) | payer MEDICARE, SELFPAY ==
[2023-07-04 11:39] VITALS: BP 126/59; PULSE 65; RESP 16; TEMP 36.4; O2SAT 96; BMI 26.3
[2023-07-04 12:21] VITALS: BP 129/64; PULSE 62; RESP 16; TEMP 36.4; O2SAT 95
[2023-07-04 13:21] VITALS: BP 134/57; PULSE 59; RESP 18; TEMP 36.3; O2SAT 94
[2023-07-04 14:30] VITALS: BP 137/62; PULSE 64; RESP 16; TEMP 36.4; O2SAT 94
== END 2023-07-04 10:56 | disposition home or self-care (01) ==
LOC: MEDOUTP 10:55
PROVIDERS: PCP Physician Assistant; Referring Provider Internal Medicine Hematology & Oncology; Visit Provider Internal Medicine Hematology & Oncology
DX: D46.20 Refractory anemia with excess of blasts, unspecified (principal)
CPT/HCPCS: 36430; 86850; 86900; 86901; 86920; 86922; J7040; P9016; A4216

== ENCOUNTER 2023-08-08 11:32 | Outpatient (CLI) | payer MEDICARE, SELFPAY ==
[2023-08-08 11:38] VITALS: BP 136/53; PULSE 77; RESP 16; TEMP 36.2; O2SAT 99
[2023-08-08 12:14] VITALS: BP 127/54; PULSE 64; RESP 16; TEMP 36.4
[2023-08-08 13:14] VITALS: BP 130/52; PULSE 62; RESP 16; TEMP 36.4
== END 2023-08-08 11:33 | disposition home or self-care (01) ==
LOC: MEDOUTP 11:34
PROVIDERS: PCP Physician Assistant; Referring Provider Internal Medicine Hematology & Oncology; Visit Provider Internal Medicine Hematology & Oncology
DX: D46.20 Refractory anemia with excess of blasts, unspecified (principal)
CPT/HCPCS: 36430; 86850; 86900; 86901; 86920; 86922; J7040; P9016; A4216

== ENCOUNTER 2023-08-22 11:15 | Outpatient (CLI) | payer MEDICARE, SELFPAY ==
[2023-08-22 11:34] VITALS: BP 135/59; PULSE 77; RESP 16; TEMP 36.2; O2SAT 98; BMI 25.8
[2023-08-22] MEDS: 0.9% Normal Saline (500mL Bag) 500 ML 15 ML IV (11:38)
[2023-08-22] MEDS: 0.9% NaCl Peripheral Flush Adult/Peds IV (11:38)
[2023-08-22 12:13] VITALS: BP 133/65; PULSE 69; RESP 16; TEMP 36.6; O2SAT 95
[2023-08-22 13:18] VITALS: BP 125/59; PULSE 60; RESP 16; TEMP 36.5; O2SAT 99
[2023-08-22 13:57] VITALS: BP 127/58; PULSE 62; RESP 16; TEMP 36.6
== END 2023-08-22 11:16 | disposition home or self-care (01) ==
LOC: MEDOUTP 11:16
PROVIDERS: PCP Physician Assistant; Referring Provider Internal Medicine Hematology & Oncology; Visit Provider Internal Medicine Hematology & Oncology
DX: D46.20 Refractory anemia with excess of blasts, unspecified (principal)
CPT/HCPCS: 36430; 86850; 86900; 86901; 86920; 86922; J7040; P9016; A4216

== ENCOUNTER 2023-09-19 11:27 | Outpatient (CLI) | payer MEDICARE, SELFPAY ==
[2023-09-19 11:37] VITALS: BP 143/53; PULSE 73; RESP 16; TEMP 36.4; O2SAT 98; BMI 25.8
[2023-09-19] MEDS: 0.9% NaCl VAD Flush IV (11:41)
[2023-09-19] MEDS: 0.9% Normal Saline (500mL Bag) 500 ML 15 ML IV (11:52)
[2023-09-19 12:25] VITALS: BP 140/62; PULSE 65; RESP 16; TEMP 36.3
[2023-09-19 13:30] VITALS: BP 149/58; PULSE 65; RESP 16; TEMP 36.6; O2SAT 99
[2023-09-19 14:06] VITALS: BP 136/54; PULSE 65; RESP 16; TEMP 36.8; O2SAT 97
== END 2023-09-19 11:28 | disposition home or self-care (01) ==
LOC: MEDOUTP 11:27
PROVIDERS: PCP Physician Assistant; Referring Provider Internal Medicine Hematology & Oncology; Visit Provider Internal Medicine Hematology & Oncology
DX: D46.20 Refractory anemia with excess of blasts, unspecified (principal)
CPT/HCPCS: 36430; 86850; 86900; 86901; 86920; 86922; J7040; P9016; A4216

== ENCOUNTER 2023-10-17 08:07 | Outpatient (CLI) | payer MEDICARE, SELFPAY ==
[2023-10-17] VITALS (7 sets, daily range): BP systolic 125–154; BP diastolic 55–69; PULSE 58–68; RESP 16; TEMP 36.4–36.7; O2SAT 93–99; BMI 25.8
[2023-10-17] MEDS: 0.9% Normal Saline (500mL Bag) 500 ML 15 ML IV (08:36)
[2023-10-17] MEDS: 0.9% NaCl Peripheral Flush Adult/Peds IV (08:37)
== END 2023-10-17 08:08 | disposition home or self-care (01) ==
LOC: MEDOUTP 08:08
PROVIDERS: PCP Physician Assistant; Referring Provider Internal Medicine Hematology & Oncology; Visit Provider Internal Medicine Hematology & Oncology
DX: D46.20 Refractory anemia with excess of blasts, unspecified (principal)
CPT/HCPCS: 36430; 86850; 86900; 86901; 86920; 86922; J7040; P9016; A4216

== ENCOUNTER 2023-11-14 10:30 | Outpatient (CLI) | payer MEDICARE, SELFPAY ==
[2023-11-14] MEDS: 0.9% NaCl Peripheral Flush Adult/Peds IV (11:15)
[2023-11-14] MEDS: 0.9% Normal Saline (500mL Bag) 500 ML 15 ML IV (11:15)
[2023-11-14 11:17] VITALS: BP 136/50; PULSE 72; RESP 16; TEMP 36.2; O2SAT 96
[2023-11-14 12:01] VITALS: BP 125/52; PULSE 67; RESP 16; TEMP 36.4
[2023-11-14 13:10] VITALS: BP 146/55; PULSE 72; RESP 16; TEMP 36.4; O2SAT 98
[2023-11-14 13:54] VITALS: BP 121/49; PULSE 68; RESP 16; TEMP 36.5
== END 2023-11-14 10:31 | disposition home or self-care (01) ==
LOC: MEDOUTP 10:33
PROVIDERS: PCP Physician Assistant; Referring Provider Internal Medicine Hematology & Oncology; Visit Provider Internal Medicine Hematology & Oncology
DX: D46.20 Refractory anemia with excess of blasts, unspecified (principal)
CPT/HCPCS: 36430; 86850; 86900; 86901; 86920; 86922; J7040; P9016; A4216

== ENCOUNTER 2023-11-28 11:08 | Outpatient (CLI) | payer MEDICARE, SELFPAY ==
[2023-11-28 11:20] VITALS: BP 149/52; PULSE 73; RESP 16; TEMP 36.3; O2SAT 97; BMI 26.4
[2023-11-28 12:06] VITALS: BP 119/50; PULSE 64; RESP 16; TEMP 36.3; O2SAT 94
[2023-11-28 13:06] VITALS: BP 135/50; PULSE 60; RESP 16; TEMP 36.3; O2SAT 97
[2023-11-28 13:59] VITALS: BP 133/51; PULSE 65; RESP 16; TEMP 36.6; O2SAT 97
== END 2023-11-28 11:09 | disposition home or self-care (01) ==
LOC: MEDOUTP 11:12
PROVIDERS: PCP Physician Assistant; Referring Provider Internal Medicine Hematology & Oncology; Visit Provider Internal Medicine Hematology & Oncology
DX: D46.20 Refractory anemia with excess of blasts, unspecified (principal)
CPT/HCPCS: 36430; 86850; 86900; 86901; 86920; 86922; J7040; P9016; A4216

== ENCOUNTER 2023-12-12 10:10 | Outpatient (CLI) | payer MEDICARE, SELFPAY ==
[2023-12-12 10:41] VITALS: BP 106/73; PULSE 74; RESP 16; TEMP 36.8; O2SAT 99; BMI 25.8
[2023-12-12 10:54] VITALS: BP 123/56; PULSE 70; RESP 16; TEMP 36.9; O2SAT 95
[2023-12-12 11:49] VITALS: BP 144/56; PULSE 65; RESP 16; TEMP 37; O2SAT 98
[2023-12-12 12:39] VITALS: BP 141/57; PULSE 62; RESP 16; TEMP 37; O2SAT 98
== END 2023-12-12 10:11 | disposition home or self-care (01) ==
LOC: MEDOUTP 10:10
PROVIDERS: PCP Physician Assistant; Referring Provider Internal Medicine Hematology & Oncology; Visit Provider Internal Medicine Hematology & Oncology
DX: D46.20 Refractory anemia with excess of blasts, unspecified (principal)
CPT/HCPCS: 36430; 86850; 86900; 86901; 86920; 86922; J7040; P9016; A4216

== ENCOUNTER 2024-01-02 08:44 | Outpatient (CLI) | payer MEDICARE, SELFPAY ==
[2024-01-02] VITALS (7 sets, daily range): BP systolic 120–148; BP diastolic 63–71; PULSE 57–66; RESP 16; TEMP 35.9–36.2; O2SAT 95–97
== END 2024-01-02 08:45 | disposition home or self-care (01) ==
LOC: MEDOUTP 08:44
PROVIDERS: PCP Physician Assistant; Referring Provider Internal Medicine Hematology & Oncology; Visit Provider Internal Medicine Hematology & Oncology
DX: D46.20 Refractory anemia with excess of blasts, unspecified (principal)
CPT/HCPCS: 36430; 86850; 86900; 86901; 86920; 86922; J7040; P9016; A4216

== ENCOUNTER 2024-01-30 09:03 | Outpatient (CLI) | payer MEDICARE, SELFPAY ==
[2024-01-30] VITALS (7 sets, daily range): BP systolic 128–149; BP diastolic 51–60; PULSE 60–73; RESP 16; TEMP 36.3–36.7; O2SAT 96–98; BMI 25.8
== END 2024-01-30 09:04 | disposition home or self-care (01) ==
LOC: MEDOUTP 09:06
PROVIDERS: PCP Physician Assistant; Referring Provider Internal Medicine Hematology & Oncology; Visit Provider Internal Medicine Hematology & Oncology
DX: D46.20 Refractory anemia with excess of blasts, unspecified (principal)
CPT/HCPCS: 36430; 86850; 86900; 86901; 86920; 86922; J7040; P9016; A4216

== ENCOUNTER 2024-02-20 07:57 | Outpatient (CLI) | payer MEDICARE, SELFPAY ==
[2024-02-20] VITALS (7 sets, daily range): BP systolic 116–152; BP diastolic 48–58; PULSE 63–80; RESP 16; TEMP 36.1–36.4; O2SAT 96–99; BMI 25.8
[2024-02-20] MEDS: 0.9% NaCl Peripheral Flush Adult/Peds IV (08:04)
[2024-02-20] MEDS: 0.9% Normal Saline (500mL Bag) 500 ML 15 ML IV (08:04)
== END 2024-02-20 07:58 | disposition home or self-care (01) ==
LOC: MEDOUTP 07:57
PROVIDERS: PCP Physician Assistant; Referring Provider Internal Medicine Hematology & Oncology; Visit Provider Internal Medicine Hematology & Oncology
DX: D46.20 Refractory anemia with excess of blasts, unspecified (principal)
CPT/HCPCS: 36430; 86850; 86900; 86901; 86920; 86922; J7040; P9016; A4216

== ENCOUNTER 2024-03-05 09:01 | Outpatient (CLI) | payer MEDICARE, SELFPAY ==
[2024-03-05 09:12] VITALS: BP 139/53; PULSE 71; RESP 16; TEMP 36.4; O2SAT 99; BMI 25.8
[2024-03-05] MEDS: 0.9% NaCl Peripheral Flush Adult/Peds IV (09:16)
[2024-03-05] MEDS: 0.9% Normal Saline (500mL Bag) 500 ML 15 ML IV (09:16)
[2024-03-05 10:14] VITALS: BP 115/59; PULSE 62; RESP 16; TEMP 36.5; O2SAT 97
[2024-03-05 11:10] VITALS: BP 134/53; PULSE 59; RESP 16; TEMP 36.4
[2024-03-05 11:48] VITALS: BP 118/49; PULSE 61; RESP 16; TEMP 36.4; O2SAT 98
[2024-03-05 12:16] VITALS: BP 131/52; PULSE 64; RESP 16; TEMP 36.6; O2SAT 97
[2024-03-05 13:16] VITALS: BP 146/55; PULSE 67; RESP 16; TEMP 36.6
== END 2024-03-05 09:02 | disposition home or self-care (01) ==
LOC: MEDOUTP 09:01
PROVIDERS: PCP Physician Assistant; Visit Provider Internal Medicine Hematology & Oncology
DX: D46.20 Refractory anemia with excess of blasts, unspecified (principal)
CPT/HCPCS: 36430; 86850; 86900; 86901; 86920; 86922; J7040; P9016; A4216

== ENCOUNTER 2024-03-22 07:35 | Outpatient (CLI) | payer MEDICARE, SELFPAY ==
[2024-03-22] VITALS (8 sets, daily range): BP systolic 123–136; BP diastolic 47–53; PULSE 60–68; RESP 16; TEMP 35.8–36.1; O2SAT 95–100; BMI 25.4
== END 2024-03-22 07:36 | disposition home or self-care (01) ==
LOC: MEDOUTP 07:35
PROVIDERS: PCP Physician Assistant; Referring Provider Internal Medicine Hematology & Oncology; Visit Provider Internal Medicine Hematology & Oncology
DX: D46.20 Refractory anemia with excess of blasts, unspecified (principal)
CPT/HCPCS: 36430; 86850; 86900; 86901; 86920; 86921; 86922; J7040; P9016; A4216

== ENCOUNTER 2024-04-02 08:59 | Outpatient (CLI) | payer MEDICARE, SELFPAY ==
[2024-04-02 09:29] VITALS: BP 139/89; PULSE 69; RESP 16; TEMP 35.9; O2SAT 99; BMI 25.4
[2024-04-02] MEDS: 0.9% NaCl Peripheral Flush Adult/Peds IV (09:45)
[2024-04-02] MEDS: 0.9% Normal Saline (500mL Bag) 500 ML 15 ML IV (09:46)
[2024-04-02 10:17] VITALS: BP 114/52; PULSE 59; RESP 16; TEMP 36.1; O2SAT 97
[2024-04-02 11:13] VITALS: BP 116/51; PULSE 59; RESP 16; TEMP 36.1; O2SAT 98
[2024-04-02 12:22] VITALS: BP 127/61; PULSE 59; RESP 16; TEMP 36.1
[2024-04-02 13:23] VITALS: BP 127/55; PULSE 65; RESP 16; TEMP 36.1; O2SAT 96
[2024-04-02 14:06] VITALS: BP 130/59; PULSE 66; RESP 16; TEMP 36.2; O2SAT 95
== END 2024-04-02 23:59 | disposition home or self-care (01) ==
LOC: MEDOUTP 08:59
PROVIDERS: PCP Physician Assistant; Referring Provider Internal Medicine Hematology & Oncology; Visit Provider Internal Medicine Hematology & Oncology
DX: D46.20 Refractory anemia with excess of blasts, unspecified (principal)
CPT/HCPCS: 36430; 86850; 86900; 86901; 86920; 86922; J7040; P9016; A4216

== ENCOUNTER 2024-04-16 11:30 | Outpatient (CLI) | payer MEDICARE, SELFPAY ==
[2024-04-16] MEDS: 0.9% Normal Saline (500mL Bag) 500 ML 15 ML IV (11:59)
[2024-04-16] MEDS: 0.9% NaCl Peripheral Flush Adult/Peds IV (11:59)
[2024-04-16 12:02] VITALS: BP 117/52; PULSE 68; RESP 16; TEMP 36.6; O2SAT 97; BMI 25.4
[2024-04-16 12:25] VITALS: BP 118/47; PULSE 62; RESP 16; TEMP 36.4
[2024-04-16 13:32] VITALS: BP 134/53; PULSE 62; RESP 16; TEMP 36.3; O2SAT 98
== END 2024-04-16 23:59 | disposition home or self-care (01) ==
LOC: MEDOUTP 11:31
PROVIDERS: PCP Physician Assistant; Visit Provider Internal Medicine Hematology & Oncology
DX: D46.9 Myelodysplastic syndrome, unspecified (principal)
CPT/HCPCS: 96360; 96361; 36430; 86850; 86900; 86901; 86920; 86922; J7040; P9016; A4216

== ENCOUNTER 2024-04-23 08:42 | Outpatient (CLI) | payer MEDICARE, SELFPAY ==
[2024-04-23 09:10] VITALS: BP 148/57; PULSE 70; RESP 16; TEMP 36.4; O2SAT 99; BMI 25.4
[2024-04-23 09:49] VITALS: BP 124/55; PULSE 63; RESP 16; TEMP 36.5; O2SAT 98
[2024-04-23 10:53] VITALS: BP 126/52; PULSE 64; RESP 16; TEMP 36.6; O2SAT 99
[2024-04-23 11:36] VITALS: BP 126/65; PULSE 65; TEMP 36.4; O2SAT 98
[2024-04-23 12:15] VITALS: BP 129/51; PULSE 63; RESP 16; TEMP 36.5; O2SAT 98
[2024-04-23 13:15] VITALS: BP 131/49; PULSE 60; RESP 16; TEMP 36.6; O2SAT 97
== END 2024-04-23 23:59 | disposition home or self-care (01) ==
LOC: MEDOUTP 08:43
PROVIDERS: PCP Physician Assistant; Referring Provider Internal Medicine Hematology & Oncology; Visit Provider Internal Medicine Hematology & Oncology
DX: D46.20 Refractory anemia with excess of blasts, unspecified (principal)
CPT/HCPCS: 36430; 86644; 86850; 86900; 86901; 86920; 86922; J7040; P9016; A4216

== ENCOUNTER → 2024-05-12 | Outpatient (CLI) | payer MEDICARE, SELFPAY | END | disposition home or self-care (01) | LOC: LABSPEC 17:01 | PROVIDERS: PCP Physician Assistant; Visit Provider Internal Medicine Hematology & Oncology | DX: D64.9 Anemia, unspecified (principal) | CPT/HCPCS: 86850; 86900; 86901; 86920; 86922 ==

== ENCOUNTER 2024-05-14 08:42 | Outpatient (CLI) | payer MEDICARE, SELFPAY ==
[2024-05-14] VITALS (7 sets, daily range): BP systolic 118–143; BP diastolic 45–57; PULSE 60–68; RESP 14–16; TEMP 36–36.2; O2SAT 96–100; BMI 25.4
[2024-05-14] MEDS: 0.9% Normal Saline (500mL Bag) 500 ML 15 ML IV (09:05)
== END 2024-05-14 23:59 | disposition home or self-care (01) ==
PROVIDERS: PCP Physician Assistant; Referring Provider Internal Medicine Hematology & Oncology; Visit Provider Internal Medicine Hematology & Oncology
DX: Z51.89 Encounter for other specified aftercare (principal); D46.20 Refractory anemia with excess of blasts, unspecified
CPT/HCPCS: 36430; 86850; 86900; 86901; 86920; 86922; J7040; P9016; A4216

== ENCOUNTER 2024-05-28 09:04 | Outpatient (CLI) | payer MEDICARE, SELFPAY ==
[2024-05-28 09:14] VITALS: BP 134/44; PULSE 69; RESP 16; TEMP 36.1; O2SAT 99
[2024-05-28] MEDS: 0.9% NaCl Peripheral Flush Adult/Peds IV (09:18)
[2024-05-28] MEDS: 0.9% Normal Saline (500mL Bag) 500 ML 15 ML IV (09:18)
[2024-05-28 10:04] VITALS: BP 129/47; PULSE 65; RESP 16; TEMP 36.2; O2SAT 99
[2024-05-28 11:00] VITALS: BP 128/49; PULSE 68; RESP 16; TEMP 36.3; O2SAT 95
[2024-05-28 12:09] VITALS: BP 126/54; PULSE 61; RESP 16; TEMP 36.2
[2024-05-28 13:15] VITALS: BP 127/55; PULSE 66; RESP 16; TEMP 36.3; O2SAT 95
[2024-05-28 14:03] VITALS: BP 123/51; PULSE 66; RESP 16; TEMP 36.2; O2SAT 98
== END 2024-05-28 23:59 | disposition home or self-care (01) ==
LOC: MEDOUTP 09:06
PROVIDERS: PCP Physician Assistant; Referring Provider Internal Medicine Hematology & Oncology; Visit Provider Internal Medicine Hematology & Oncology
DX: D46.20 Refractory anemia with excess of blasts, unspecified (principal)
CPT/HCPCS: 36430; 86850; 86900; 86901; 86920; 86922; J7040; P9016; A4216

== ENCOUNTER 2024-06-10 09:34 | Outpatient (CLI) | payer MEDICARE, SELFPAY ==
[2024-06-10] VITALS (7 sets, daily range): BP systolic 119–132; BP diastolic 42–58; PULSE 58–67; RESP 14–16; TEMP 35.8–36; O2SAT 92–97; BMI 25.4
== END 2024-06-10 23:59 | disposition home or self-care (01) ==
LOC: MEDOUTP 09:34
PROVIDERS: PCP Physician Assistant; Referring Provider Internal Medicine Hematology & Oncology; Visit Provider Internal Medicine Hematology & Oncology
DX: D46.20 Refractory anemia with excess of blasts, unspecified (principal)
CPT/HCPCS: 36430; 86850; 86900; 86901; 86920; 86922; J7040; P9016; A4216

== ENCOUNTER 2024-06-25 10:16 | Outpatient (CLI) | payer MEDICARE, SELFPAY ==
[2024-06-25] MEDS: 0.9% Normal Saline (500mL Bag) 500 ML 15 ML IV (10:46)
[2024-06-25] MEDS: 0.9% NaCl Peripheral Flush Adult/Peds IV (10:46)
[2024-06-25 10:47] VITALS: BP 128/57; PULSE 72; RESP 16; TEMP 35.9; O2SAT 96
[2024-06-25 11:39] VITALS: BP 140/56; PULSE 70; RESP 16; TEMP 35.8
[2024-06-25 12:39] VITALS: BP 138/57; PULSE 68; RESP 16; TEMP 35.9; O2SAT 94
[2024-06-25 13:40] VITALS: BP 134/54; PULSE 70; RESP 16; TEMP 35.9
== END 2024-06-25 23:59 | disposition home or self-care (01) ==
LOC: MEDOUTP 10:17
PROVIDERS: PCP Physician Assistant; Referring Provider Internal Medicine Hematology & Oncology; Visit Provider Internal Medicine Hematology & Oncology
DX: D46.20 Refractory anemia with excess of blasts, unspecified (principal)
CPT/HCPCS: 96360; 96361; 36430; 86644; 86850; 86900; 86901; 86920; 86922; J7040; P9016; A4216

== ENCOUNTER 2024-07-09 07:59 | Outpatient (CLI) | payer MEDICARE, SELFPAY ==
[2024-07-09 08:18] VITALS: BP 90/66; PULSE 75; RESP 16; TEMP 35.7; O2SAT 99; BMI 25.4
[2024-07-09 08:44] VITALS: BP 126/43; PULSE 71; RESP 16; TEMP 35.9; O2SAT 93
[2024-07-09 09:44] VITALS: BP 128/46; PULSE 74; RESP 16; TEMP 35.8
[2024-07-09 10:35] VITALS: BP 126/50; PULSE 68; RESP 16; TEMP 35.7; O2SAT 100
[2024-07-09 11:03] VITALS: BP 125/47; PULSE 67; RESP 16; TEMP 35.8; O2SAT 99
[2024-07-09 12:03] VITALS: BP 128/50; PULSE 63; RESP 16; TEMP 35.7
== END 2024-07-09 23:59 | disposition home or self-care (01) ==
LOC: MEDOUTP 07:59
PROVIDERS: PCP Physician Assistant; Referring Provider Internal Medicine Hematology & Oncology; Visit Provider Internal Medicine Hematology & Oncology
DX: Z51.89 Encounter for other specified aftercare (principal); D46.20 Refractory anemia with excess of blasts, unspecified
CPT/HCPCS: 36430; 86850; 86900; 86901; 86920; 86922; J7040; P9016; A4216

== ENCOUNTER 2024-07-23 08:28 | Outpatient (CLI) | payer MEDICARE, SELFPAY ==
[2024-07-23] VITALS (7 sets, daily range): BP systolic 111–141; BP diastolic 44–62; PULSE 61–74; RESP 16; TEMP 35.6–35.9; O2SAT 94–100; BMI 25.8
[2024-07-23] MEDS: 0.9% NaCl Peripheral Flush Adult/Peds IV ×2 (08:52→09:00)
[2024-07-23] MEDS: 0.9% Normal Saline (500mL Bag) 500 ML 15 ML IV (08:52)
== END 2024-07-23 23:59 | disposition home or self-care (01) ==
LOC: MEDOUTP 08:28
PROVIDERS: PCP Physician Assistant; Referring Provider Internal Medicine Hematology & Oncology; Visit Provider Internal Medicine Hematology & Oncology
DX: D46.20 Refractory anemia with excess of blasts, unspecified (principal)
CPT/HCPCS: 36430; 86850; 86900; 86901; 86920; 86922; J7040; P9016; A4216

== ENCOUNTER → 2024-07-28 | Outpatient (CLI) | payer MEDICARE, SELFPAY ==
--- NOTE | 2024-07-28 12:49 | ECHODONC_ITS ---
Reason For Study: Chemotherapy Procedure This was a 2D Doppler, Color Flow transthoracic echocardiogram. Myocardial strain analysis was performed in this exam to aid in the assessment of cardiac function. Exam performed in department. Left Ventricle Normal LV size. Left ventricular systolic function is normal. The left ventricular ejection fraction is 65 %. Normal diastology for age. No regional wall motion abnormalities noted. Right Ventricle Normal RV size. Normal systolic function. Atria Normal left atrium. Normal right atrium. Mitral Valve Normal mitral valve. Mild (1+) eccentric mitral valve insufficiency. Tricuspid Valve Normal tricuspid valve. Mild (1+) tricuspid valve insufficiency. Pulmonary artery systolic pressure is 33 mmHg. Aortic Valve Trisinus/trileaflet aortic valve. Pulmonic Valve Normal pulmonic valve. Great Vessels Normal aortic root. The pulmonary artery is normal size. Normal inferior vena cava. Pericardium/Pleural No pericardial effusion. MMode/2D Measurements & Calculations LVIDd: 4.8 cm IVSd: 1.0 cm LVOT diam: 2.2 cm LVIDs: 3.3 cm LVPWd: 1.1 cm LVOT area: 3.9 cm2 RVDd: 4.5 cm FS: 31.8 % Ao root diam: 3.1 cm asc Aorta Diam: 3.3 cm LAV(MOD-bp): 57.4 ml LA dimension: 3.7 cm LAV(MOD-bp) Indexed: 29.9 ml/m2 LAV(MOD-sp2): 56.5 ml LAV(MOD-sp4): 56.2 ml TAPSE: 1.5 cm LA A4 area: 20.9 cm2 RA A4 area: 19.8 cm2 Time Measurements MV dec time: 0.27 sec Doppler Measurements & Calculations MV E max denton: 113.5 cm/sec Lat Peak E' [place]: 9.2 cm/sec Med Peak E' [place]: 6.9 cm/sec MV A max denton: 102.7 cm/sec E/E' lat: 12.4 E/E' med: 16.3 MV E/A: 1.1 MV V2 max: 146.7 cm/sec MV P1/2t max denton: 147.3 cm/sec Ao V2 max: 210.7 cm/sec MV max P.6 mmHg MV P1/2t: 104.4 msec Ao max P.8 mmHg MV V2 mean: 76.7 cm/sec MV dec slope: 413.3 cm/sec2 Ao V2 mean: 147.0 cm/sec MV mean P.9 mmHg Ao mean P.8 mmHg MV V2 VTI: 49.4 cm MVA(P1/2t): 2.1 cm2 Ao V2 VTI: 49.8 cm MVA(VTI): 2.3 cm2 AV (velocity ratio): 0.58 JEM(I,D): 2.3 cm2 JEM(V,D): 2.2 cm2 LV V1 max: 119.3 cm/sec SV(LVOT): 112.1 ml PA V2 max: 97.7 cm/sec LV V1 max P.8 mmHg PA max PG (full): 1.7 mmHg LV V1 mean P.3 mmHg LV V1 mean: 85.4 cm/sec LV V1 VTI: 28.9 cm TR max denton: 275.8 cm/sec TR max P.4 mmHg ECHO/ONC Echo Complete Interpretation Summary Normal LV size. Left ventricular systolic function is normal. The left ventricular ejection fraction is 65 %. The global longitudinal strain is normal. The global longitudinal strain = -17. 9 % (normal). Ordering Physician: Venkatesh Cast Referring Physician: Venkatesh Cast Performed By: Esau Zelaya and Student
== END | disposition home or self-care (01) ==
LOC: CVS 12:47
PROVIDERS: PCP Physician Assistant; Referring Provider Internal Medicine Cardiovascular Disease; Visit Provider Internal Medicine Cardiovascular Disease
DX: I34.0 Nonrheumatic mitral (valve) insufficiency (principal)
CPT/HCPCS: 93306; 93356

== ENCOUNTER → 2024-08-05 | Outpatient (CLI) | payer MEDICARE, SELFPAY | END | disposition home or self-care (01) | LOC: LABSPEC 16:28 | PROVIDERS: PCP Physician Assistant; Visit Provider Internal Medicine Hematology & Oncology | DX: R69 Illness, unspecified (principal) | CPT/HCPCS: 86850; 86900; 86901; 86920; 86922 ==

== ENCOUNTER 2024-08-06 08:01 | Outpatient (CLI) | payer MEDICARE, SELFPAY ==
[2024-08-06] VITALS (7 sets, daily range): BP systolic 126–139; BP diastolic 49–65; PULSE 58–73; RESP 14–16; TEMP 35.8–36.2; O2SAT 93–98; BMI 27.9
== END 2024-08-06 23:59 | disposition home or self-care (01) ==
LOC: MEDOUTP 08:01
PROVIDERS: PCP Physician Assistant; Referring Provider Internal Medicine Hematology & Oncology; Visit Provider Internal Medicine Hematology & Oncology
DX: D46.20 Refractory anemia with excess of blasts, unspecified (principal)
CPT/HCPCS: 36430; 86850; 86900; 86901; 86920; 86922; J7040; P9016; A4216

== ENCOUNTER 2024-08-27 08:28 | Outpatient (CLI) | payer MEDICARE, SELFPAY ==
[2024-08-27] VITALS (7 sets, daily range): BP systolic 123–149; BP diastolic 46–100; PULSE 61–71; RESP 16; TEMP 35.6–36.1; O2SAT 98–100; BMI 25.8
== END 2024-08-27 23:59 | disposition home or self-care (01) ==
LOC: MEDOUTP 08:28
PROVIDERS: PCP Physician Assistant; Referring Provider Internal Medicine Hematology & Oncology; Visit Provider Internal Medicine Hematology & Oncology
DX: D46.20 Refractory anemia with excess of blasts, unspecified (principal)
CPT/HCPCS: 36430; 86850; 86900; 86901; 86920; 86922; P9016; A4216

== ENCOUNTER 2024-09-10 08:35 | Outpatient (CLI) | payer MEDICARE, SELFPAY ==
[2024-09-10] VITALS (7 sets, daily range): BP systolic 119–147; BP diastolic 45–83; PULSE 62–68; RESP 14–16; TEMP 36.1–36.4; O2SAT 97–99; BMI 25.9
[2024-09-10] MEDS: 0.9% Normal Saline (500mL Bag) 500 ML 15 ML IV (09:02)
[2024-09-10] MEDS: 0.9% NaCl Peripheral Flush Adult/Peds IV (09:02)
== END 2024-09-10 23:59 | disposition home or self-care (01) ==
LOC: MEDOUTP 08:35
PROVIDERS: PCP Physician Assistant; Referring Provider Internal Medicine Hematology & Oncology; Visit Provider Internal Medicine Hematology & Oncology
DX: D46.20 Refractory anemia with excess of blasts, unspecified (principal)
CPT/HCPCS: 36430; 86850; 86900; 86901; 86920; 86922; J7040; P9016; A4216

== ENCOUNTER 2024-09-24 08:34 | Outpatient (CLI) | payer MEDICARE, SELFPAY ==
[2024-09-24 08:48] VITALS: BP 131/47; PULSE 69; RESP 14; TEMP 36.1; O2SAT 98; BMI 26.3
[2024-09-24 09:13] VITALS: BP 120/57; PULSE 68; RESP 16; TEMP 36.3; O2SAT 99
[2024-09-24 10:13] VITALS: BP 122/46; PULSE 68; RESP 16; TEMP 36.2; O2SAT 98
[2024-09-24 11:05] VITALS: BP 128/57; PULSE 68; RESP 16; TEMP 36.2; O2SAT 98
== END 2024-09-24 23:59 | disposition home or self-care (01) ==
LOC: MEDOUTP 08:34
PROVIDERS: PCP Physician Assistant; Referring Provider Internal Medicine Hematology & Oncology; Visit Provider Internal Medicine Hematology & Oncology
DX: D46.20 Refractory anemia with excess of blasts, unspecified (principal)
CPT/HCPCS: 36430; 86850; 86900; 86901; 86920; 86922; J7040; P9016; A4216

== ENCOUNTER 2024-10-01 08:30 | Outpatient (CLI) | payer MEDICARE, SELFPAY ==
[2024-10-01] VITALS (7 sets, daily range): BP systolic 118–150; BP diastolic 47–94; PULSE 60–72; RESP 14–16; TEMP 36.1–36.5; O2SAT 95–100
[2024-10-01] MEDS: 0.9% NaCl Peripheral Flush Adult/Peds IV (08:43)
== END 2024-10-01 23:59 | disposition home or self-care (01) ==
LOC: MEDOUTP 08:30
PROVIDERS: PCP Physician Assistant; Referring Provider Internal Medicine Hematology & Oncology; Visit Provider Internal Medicine Hematology & Oncology
DX: D46.20 Refractory anemia with excess of blasts, unspecified (principal)
CPT/HCPCS: 36430; 86850; 86900; 86901; 86920; 86922; J7040; P9016; A4216

== ENCOUNTER 2024-10-22 09:10 | Outpatient (CLI) | payer MEDICARE, SELFPAY ==
[2024-10-22 09:20] VITALS: BP 135/49; PULSE 70; RESP 16; TEMP 36; O2SAT 100; BMI 26.3
[2024-10-22 10:00] VITALS: BP 134/53; PULSE 65; RESP 14; TEMP 36.2; O2SAT 97
[2024-10-22 11:00] VITALS: BP 126/49; PULSE 67; RESP 16; TEMP 36.1; O2SAT 100
[2024-10-22 11:56] VITALS: BP 137/46; PULSE 62; RESP 16; TEMP 36.2; O2SAT 99
[2024-10-22 13:02] VITALS: BP 135/51; PULSE 65; RESP 16; O2SAT 97
[2024-10-22 14:05] VITALS: BP 137/46; PULSE 62; RESP 16; TEMP 36.2; O2SAT 99
== END 2024-10-22 23:59 | disposition home or self-care (01) ==
LOC: MEDOUTP 09:10
PROVIDERS: PCP Physician Assistant; Referring Provider Internal Medicine Hematology & Oncology; Visit Provider Internal Medicine Hematology & Oncology
DX: D46.20 Refractory anemia with excess of blasts, unspecified (principal)
CPT/HCPCS: 36430; 86850; 86900; 86901; 86920; 86922; P9016; A4216

== ENCOUNTER 2024-11-12 08:46 | Outpatient (CLI) | payer MEDICARE, SELFPAY ==
[2024-11-12] VITALS (7 sets, daily range): BP systolic 120–154; BP diastolic 52–67; PULSE 64–78; RESP 14–16; TEMP 35.7–36.6; O2SAT 94–97
== END 2024-11-12 23:59 | disposition home or self-care (01) ==
LOC: MEDOUTP 08:47
PROVIDERS: PCP Physician Assistant; Referring Provider Internal Medicine Hematology & Oncology; Visit Provider Internal Medicine Hematology & Oncology
DX: D46.20 Refractory anemia with excess of blasts, unspecified (principal)
CPT/HCPCS: 36430; 86850; 86900; 86901; 86920; 86922; P9016; A4216

== ENCOUNTER 2024-12-03 08:02 | Outpatient (CLI) | payer MEDICARE, SELFPAY ==
[2024-12-03 08:24] VITALS: BP 148/62; PULSE 79; RESP 16; TEMP 35.7; O2SAT 98; BMI 25.8
[2024-12-03 08:57] VITALS: BP 131/66; PULSE 72; RESP 16; TEMP 36.1; O2SAT 98
[2024-12-03 10:00] VITALS: BP 128/57; PULSE 68; RESP 16; TEMP 35.9; O2SAT 98
[2024-12-03 10:48] VITALS: BP 137/61; PULSE 67; RESP 16; TEMP 36.2; O2SAT 98
[2024-12-03 11:48] VITALS: BP 135/64; PULSE 70; RESP 16; TEMP 36.1; O2SAT 99
== END 2024-12-03 23:59 | disposition home or self-care (01) ==
LOC: MEDOUTP 08:02
PROVIDERS: PCP Physician Assistant; Referring Provider Internal Medicine Hematology & Oncology; Visit Provider Internal Medicine Hematology & Oncology
DX: D46.20 Refractory anemia with excess of blasts, unspecified (principal)
CPT/HCPCS: 36430; 86850; 86900; 86901; 86920; 86922; P9016; A4216

== ENCOUNTER 2024-12-17 08:31 | Outpatient (CLI) | payer MEDICARE, SELFPAY ==
[2024-12-17 08:44] VITALS: BP 145/67; PULSE 81; RESP 16; TEMP 35.9; O2SAT 97
[2024-12-17 09:25] VITALS: BP 129/45; PULSE 60; RESP 16; TEMP 36.3; O2SAT 98
[2024-12-17 10:40] VITALS: BP 124/50; PULSE 66; RESP 16; TEMP 36.1; O2SAT 98
[2024-12-17 11:16] VITALS: BP 121/47; PULSE 62; RESP 16; TEMP 36.5; O2SAT 96
[2024-12-17 12:16] VITALS: BP 128/52; PULSE 68; RESP 16; TEMP 36.6; O2SAT 96
== END 2024-12-17 23:59 | disposition home or self-care (01) ==
LOC: MEDOUTP 08:31
PROVIDERS: PCP Physician Assistant; Referring Provider Internal Medicine Hematology & Oncology; Visit Provider Internal Medicine Hematology & Oncology
DX: D64.9 Anemia, unspecified (principal)
CPT/HCPCS: 36430; 86850; 86900; 86901; P9016; A4216

== ENCOUNTER 2024-12-31 08:21 | Outpatient (CLI) | payer MEDICARE, SELFPAY ==
[2024-12-31] VITALS (8 sets, daily range): BP systolic 127–155; BP diastolic 44–79; PULSE 64–77; RESP 16; TEMP 36–36.4; O2SAT 95–98
== END 2024-12-31 23:59 | disposition home or self-care (01) ==
LOC: MEDOUTP 08:21
PROVIDERS: PCP Physician Assistant; Referring Provider Internal Medicine Hematology & Oncology; Visit Provider Internal Medicine Hematology & Oncology
DX: D46.20 Refractory anemia with excess of blasts, unspecified (principal)
CPT/HCPCS: 36430; 86850; 86900; 86901; P9016; A4216

== ENCOUNTER 2025-01-14 07:58 | Outpatient (CLI) | payer MEDICARE, SELFPAY ==
[2025-01-14] VITALS (7 sets, daily range): BP systolic 114–138; BP diastolic 43–49; PULSE 66–79; RESP 14–16; TEMP 36.2–36.4; O2SAT 94–97
== END 2025-01-14 23:59 | disposition home or self-care (01) ==
LOC: MEDOUTP 07:58
PROVIDERS: PCP Physician Assistant; Referring Provider Internal Medicine Hematology & Oncology; Visit Provider Internal Medicine Hematology & Oncology
DX: D46.20 Refractory anemia with excess of blasts, unspecified (principal)
CPT/HCPCS: 36430; 86644; 86850; 86900; 86901; P9016; A4216

== ENCOUNTER 2025-01-28 08:09 | Outpatient (CLI) | payer MEDICARE, SELFPAY ==
[2025-01-28] VITALS (7 sets, daily range): BP systolic 124–138; BP diastolic 52–60; PULSE 61–71; RESP 16; TEMP 35.8–36.6; O2SAT 96–98; BMI 26.6
== END 2025-01-28 23:59 | disposition home or self-care (01) ==
LOC: MEDOUTP 08:09
PROVIDERS: PCP Physician Assistant; Referring Provider Internal Medicine Hematology & Oncology; Visit Provider Internal Medicine Hematology & Oncology
DX: D46.9 Myelodysplastic syndrome, unspecified (principal)
CPT/HCPCS: 36430; 86850; 86900; 86901; 86920; 86922; P9016; A4216

== ENCOUNTER 2025-02-10 12:47 | Emergency (ER) | payer MEDICARE, SELFPAY ==
[2025-02-10 12:48] VITALS: BP 162/66; PULSE 74; RESP 18; TEMP 36.7; O2SAT 97; BMI 27.6
--- NOTE | 2025-02-10 13:55 | VDLE_ITS ---
Reason For Study Reason For Study: Swelling RIGHT LEFT CFV is compressible, spontaneous, phasic, competent GSV is normal. and demonstrates normal augmentation. CFV is compressible, spontaneous, phasic, competent, Procedure and demonstrates normal augmentation. This is a venous duplex using B-mode, color flow and FV is compressible, spontaneous, phasic, competent spectral Doppler. and demonstrates normal augmentation. Exam performed portable in ED. POP V is compressible, spontaneous, phasic, competent A preliminary report was called and/or faxed to and demonstrates normal augmentation. Zev. T/P Trunk is compressible. PTV is compressible. LT PerV is compressible. VL/Venous Duplex US, Unilateral Interpretation Summary Deep veins of the left lower extremity are patent and compressible segmentally. There is no evidence of left lower extremity deep vein thrombosis. The left great saphenous vein appears patent an d compressible segmentally. Ordering Physician: Esau Brothers Performed By: Genesis Delgado RVT
[2025-02-10 14:02] LABS: Bacteria 0 SEEN /hpf (None Seen); Mucous, Urine 0 SEEN /hpf (<or=2+); Red Blood Cells-Urine 0 SEEN /hpf (0-5); Squamous Epithelial Cells - UA 0 SEEN /hpf (0-5)
[2025-02-10 14:03] LABS: Color, Urine Yellow (Yellow); Glucose, Dipstick Normal (Normal); Ketone-Dipstick Negative (Negative); Leukocyte Esterase-Dipstick 25 /ul (Negative); Nitrite-Dipstick Negative (Negative); Occult Blood-Urine Negative /ul (Negative); Protein-Dipstick Negative (Negative); Specific Gravity, Urine 1.005 (1.002-1.030); Urine Bilirubin Dipstick Negative (Negative); Urine Clarity Clear (Clear); Urine Urobilinogen Normal (Normal)
[2025-02-10 14:16] LABS: White Blood Cells 0-5 SEEN /hpf (0-5)
--- NOTE | 2025-02-10 14:25 | EX.ED.DYSGE1 ---
HPI History of Present Illness Chief Complaint: Complaint Narrative Narrative: Chief complaint and HPI: Dysuria, urinary incontinence, suprapubic abdominal pain. 79-year-old male with past medical history of myelodysplastic syndrome and HTN presents for evaluation of dysuria urinary incontinence, and suprapubic abdominal pain. Patient states for the past week he has been having dysuria, urinary continence, suprapubic abdominal pain. He states that his symptoms have not improved which is why he presents. He denies any fever, chills, shortness of breath, chest pain, nausea, vomiting, constipation, diarrhea, penile or testicular pain. Patient states he has been eating and drinking well. He had a history of a UTI in the past that required admission. He denies any difficulty in his prostate. also states that yesterday she noticed some left lower extremity swelling that has since resolved. She states that he has myelodysplastic syndrome and is worried that he could possibly have a DVT. Patient has no history of DVT in the past. Review of systems: See HPI Medications: As listed on the chart Allergies: As listed on the chart PFSH: Per chart Vital signs: As listed on the chart. Reviewed. Physical exam: Gen: A&O x3, NAD Head: Normocephalic, atraumatic Eyes: No sclera icterus, conjunctiva clear ENT: Moist mucous membranes Neck: Trachea midline, No JVD CV: RRR, no murmurs, no peripheral edema Resp: Lungs CTA BL, no w/r/c GI: Abd soft, non-distended, mildly tender to palpation in the suprapubic region, no r/r/g : No CVA tenderness. Circumcised penis. No penile tenderness or discharge. No penile or testicular swelling. Normal lie and position of the testicles. No testicular tenderness, masses, or skin changes. No rashes. Musc: Full ROM, no deformity, femoral/DP/PT pulses +2 bilaterally, no peripheral edema or swelling of the bilateral lower extremities, negative Homans' sign bilaterally Skin: Warm, dry Neuro: Alert, oriented, grossly intact, sensation intact Psych: Cooperative, appropriate mood and affect [facility] Medical History Pancytopenia Thrombocytopenia MDS (myelodysplastic syndrome) Secondary pulmonary arterial hypertension Encounter for education [place] Sensory neuropathy Myelodysplastic syndrome Home Medications ?Medication ?Instructions ?Recorded ?Last Taken ?Type montelukast 10 mg tablet 10 mg PO QHS allergies 08/24/18 05/08/22 History pyridoxine (vitamin B6) 100 mg 100 mg PO DAILY supplement 08/24/18 05/09/22 History tablet calcium carbonate 500 mg PO DAILY supplement 05/30/20 05/09/22 History tadalafil 2.5 mg tablet 2.5 mg PO DAILY blood pressure 07/28/20 05/09/22 History tramadol 50 mg tablet (Ultram) 50 mg PO TID pain 08/13/21 05/09/22 History ondansetron 4 mg disintegrating 4 mg PO Q8H PRN nausea and 04/17/22 Unknown Rx tablet vomiting #30 tabs doxazosin 4 mg tablet 4 mg PO QHS bladder 05/01/22 05/08/22 History folic acid 400 mcg tablet 0.4 mg PO DAILY #90 tabs 09/05/22 Unknown Rx quercetin 500 mg capsule 500 mg PO DAILY 10/10/22 Unknown History furosemide 40 mg tablet (Lasix) 40 mg PO DAILY PRN Edema 01/09/23 Unknown History melatonin 5 mg capsule 10 mg PO QHS PRN sleep 11/14/23 Unknown History albuterol sulfate 90 mcg/actuation 2 puff inhalation Q6H PRN 01/12/24 Unknown History aerosol inhaler shortness of breath or wheezing cholecalciferol (vitamin D3) 125 125 mcg PO DAILY 01/12/24 Unknown History mcg (5,000 unit) tablet diphenhydramine HCl 25 mg tablet 25 mg PO ONCE PRN allergy symptoms 01/12/24 Unknown History (Benadryl Allergy) omeprazole 40 mg capsule,delayed 40 mg PO DAILY 01/12/24 Unknown History release polyethylene glycol 3350 17 17 g PO DAILY 01/12/24 Unknown History gram/dose oral powder decitabine 50 mg intravenous 50 mg IV QWEEK 02/20/24 Unknown History solution (Dacogen) losartan 25 mg tablet 25 mg PO DAILY #90 tabs 06/15/24 Unknown Rx buspirone 5 mg tablet 5 mg PO TID 08/06/24 Unknown History citalopram 10 mg tablet (Celexa) 10 mg PO QHS 01/28/25 Unknown History hydroxyzine HCl 25 mg tablet 25 mg PO 4X/DAY PRN 02/10/25 Unknown History levothyroxine 25 mcg tablet 25 mcg PO DAILY disorder of 02/10/25 Unknown History thyroid gland olanzapine 2.5 mg tablet 2.5 mg PO QHS 02/10/25 Unknown History omeprazole 20 mg capsule,delayed 40 mg PO DAILY 02/10/25 Unknown History release oxycodone 5 mg tablet 2.5 - 5 mg PO Q6H PRN PRN pain 02/10/25 Unknown History sennosides 8.6 mg-docusate sodium 1 tab-cap PO DAILY 02/10/25 Unknown History 50 mg tablet (Laxative Stool Softener With Senna) Allergy/AdvReac Type Severity Reaction Status Date / Time levofloxacin (From Levaquin) Allergy Other Verified 02/10/25 12:48 remdesivir Allergy Other Verified 02/10/25 12:48 sulfamethoxazole (From AdvReac Other Verified 02/10/25 12:48 Bactrim) trimethoprim (From Bactrim) AdvReac Other Verified 02/10/25 12:48 Family History Sister Colon cancer Bleeding disorder Mother Heart disease Diabetes Father CVA (cerebral vascular accident), Onset Age: 95 Surgical History History of hernia repair History of bone marrow biopsy Social History household members: spouse Smoking Status: Former smoker alcohol intake: never substance use type: does not use caffeine: Yes Type: coffee Number of servings: 3 what type of physical activity do you participate in: none 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 Differential diagnosis includes but is not limited to UTI, urolithiasis, pyelonephritis, electrolyte abnormality, DVT. Patient has no clinical signs of DVT on physical exam such as swelling, warmth, erythema. However given his myelodysplastic syndrome will order venous duplex ultrasound of the left lower extremity. NS bolus ordered. Abdominal pain workup ordered including CT abdomen and pelvis. UA is negative for UTI. Venous duplex ultrasound negative for DVT. Patient has baseline leukopenia and anemia. Hemoglobin is 1.7. states that he is scheduled to have a blood transfusion tomorrow. He periodically gets transfusions. Platelets unremarkable. BMP unremarkable. CT abdomen pelvis pending at this time. Patient signed out to oncoming physician, Dr. Dueñas. Final disposition pending CT abdomen/pelvis. Lab Data Labs: Laboratory Results - last 24 hr 02/10/25 02/10/25 12:45 14:19 WBC 3.5 L RBC 2.30 L Hgb 7.1 L Hct 21.6 L MCV 93.9 MCH 30.9 MCHC 32.9 RDW Std Deviation 56.1 H RDW Coeff of Jcarlos 17.8 H Plt Count 154 MPV 10.9 Immature Gran % (Auto) 1.700 H Neut % (Auto) 75.3 H Lymph % (Auto) 16.4 L [place] % (Auto) 5.2 Eos % (Auto) 1.1 Baso % (Auto) 0.3 Absolute Neuts (auto) 2.6 Absolute Lymphs (auto) 0.57 L Nucleated RBC % 0 Sodium 139 Potassium 4.4 Chloride 103 Carbon Dioxide 26.7 Anion Gap 9 BUN 10 Creatinine 0.71 Estim Creat Clear Calc 77.15 Est GFR (MDRD) Non-Af 93 BUN/Creatinine Ratio 14.7 Glucose 104 H Calcium 9.3 Urine Color Yellow Urine Clarity Clear Urine pH 7.0 Ur Specific [place] 1.005 Urine Protein Negative Urine Glucose (UA) Normal Urine Ketones Negative Urine Occult Blood Negative Urine Nitrite Negative Urine Bilirubin Negative Urine Urobilinogen Normal Ur Leukocyte Esterase 25 H Urine RBC 0 SEEN Urine WBC 0-5 SEEN Ur Squamous Epith Cells 0 SEEN Urine Bacteria 0 SEEN Urine Mucus 0 SEEN Discharge Plan Triage Chief Complaint: Complaint ED Provider: Esau Brothers Dx/Rx/DC Orders Prescriptions: No Action tramadol [Ultram] 50 mg tablet 50 mg PO TID Patient Comments: TAKE 1 TABLET BY MOUTH EVERY 6 HOURS NEEDED FOR PAIN ondansetron 4 mg tablet,disintegrating 4 mg PO Q8H PRN (Reason: nausea and vomiting) Qty: 30 2RF folic acid 400 mcg tablet 0.4 mg PO DAILY Qty: 90 3RF quercetin 500 mg capsule 500 mg PO DAILY cholecalciferol (vitamin D3) 125 mcg (5,000 unit) tablet 125 mcg PO DAILY omeprazole 40 mg capsule,delayed release(DR/EC) 40 mg PO DAILY albuterol sulfate 90 mcg/actuation HFA aerosol inhaler 2 puff inhalation Q6H PRN (Reason: shortness of breath or wheezing) polyethylene glycol 3350 17 gram/dose powder 17 g PO DAILY diphenhydramine HCl [Benadryl Allergy] 25 mg tablet 25 mg PO ONCE PRN (Reason: allergy symptoms) losartan 25 mg tablet 25 mg PO DAILY Qty: 90 3RF montelukast 10 MG tablet 10 mg PO QHS pyridoxine (vitamin B6) 100 MG tablet 100 mg PO DAILY calcium carbonate 500 MG tablet 500 mg PO DAILY tadalafil 2.5 MG tablet 2.5 mg PO DAILY doxazosin 4 mg tablet 4 mg PO QHS furosemide [Lasix] 40 mg tablet 40 mg PO DAILY PRN (Reason: Edema) melatonin 5 mg capsule 10 mg PO QHS PRN (Reason: sleep) decitabine [Dacogen] 50 mg recon soln 50 mg IV QWEEK citalopram [Celexa] 10 mg tablet 10 mg PO QHS hydroxyzine HCl 25 mg tablet 25 mg PO 4X/DAY PRN olanzapine 2.5 mg tablet 2.5 mg PO QHS levothyroxine 25 mcg tablet 25 mcg PO DAILY omeprazole 20 mg capsule,delayed release(DR/EC) 40 mg PO DAILY oxycodone 5 mg tablet 2.5 - 5 mg PO Q6H PRN PRN (Reason: pain) sennosides-docusate sodium [Lax Stool Softener With Senna] 8.6-50 mg tablet 1 tab-cap PO DAILY buspirone 5 mg tablet 5 mg PO TID Primary Care Provider: Gladys Carney Referrals: Gladys Carney, [employer] [Primary Care Provider] - Print Language: Moroccan
[2025-02-10 14:28] LABS: Absolute Lymphocyte Count 0.57 X10^3/uL (0.83-4.51); Absolute Neutrophil Count 2.6 X10^3/uL (2.0-7.7); Basophil# 0.01 X10^3/uL; Basophil% 0.3 % (0-1); Eosinophil# 0.04 X10^3/uL; Eosinophils% 1.1 % (0-5); Hematocrit 21.6 % (40-54); Hemoglobin 7.1 g/dL (13.0-16.5); Lymphocyte # 0.57 X10^3/ul (0.83-4.51); Lymphocyte % 16.4 % (19-41); Mean Corp Hgb Conc 32.9 g/dL (32-36); Mean Corpuscular Hgb 30.9 pg (27.0-32.0); Mean Corpuscular Volume 93.9 fL (80-94); Mean Platelet Vol. 10.9 fl (6.2-12.0); Monocyte# 0.18 X10^3/uL; Monocyte% 5.2 % (0-10); NRBC Flagged by Analyzer 0 % (0-5); Neutrophil # 2.62 X10^3/uL (2.7-7.7); Neutrophil % 75.3 % (47-70); POSITIVE DIFFERENTIAL YES; Platelet Count 154 K/mm3 (150-450); RBC Distribution Width CV 17.8 % (11.6-14.6); RBC Distribution Width SD 56.1 fl (35.1-43.9); White Blood Count 3.5 K/mm3 (4.4-11.0)
[2025-02-10] MEDS: 0.9% Normal Saline (1000mL) 1,000 ML 999 ML IV (14:40)
[2025-02-10 15:15] LABS: Anion Gap 9 (5-15); BUN 10 mg/dL (4-19); BUN/Creat Ratio 14.7 RATIO (10-20); Calcium,Total 9.3 mg/dL (7.6-11.0); Carbon Dioxide 26.7 mmol/L (21.0-32.0); Chloride 103 mmol/L (98-108); Creatinine, Serum 0.71 mg/dL (0.70-1.20); EST Glomerular Filtration Rate 93 (>60); Estimated Creatinine Clearance 77.15 ml/min (50-250); Glucose 104 mg/dL (70-99); Potassium 4.4 mmol/L (3.3-5.1); Sodium Level 139 mmol/L (133-145)
--- NOTE | 2025-02-10 15:20 | CT_ITS ---
PROCEDURE: ABDOMEN/PELVIS WITHOUT CONT 02/10/2025 REASON FOR EXAM: 79-year-old male, DYSURIA TECHNIQUE: Abdomen and pelvis CT without intravenous contrast. Noncontrast technique limits evaluation of the abdominal and pelvic viscera. Coronal and Sagittal reconstruction series were provided. One or more dose reduction techniques were used (e.g., Automated exposure control, adjustment of the mA and/or kV according to patient size, use of iterative reconstruction technique). PATIENT PREPARATION: Per protocol ORAL CONTRAST TYPE: None. COMPARISON: None. FINDINGS: Lung bases: Tree-in-bud nodularity within the left lower lobe. The heart is normal in size with coronary artery, mitral annular and aortic valvular calcifications. Liver: Hepatomegaly with diffusely increased hepatic density. Gallbladder: Mild dependent layering sludge within the gallbladder. Spleen: Mild splenomegaly. Pancreas: Unremarkable. Adrenals: Punctate hyperdensity within the left adrenal gland. Unremarkable right adrenal gland. Kidneys: No hydronephrosis or nephrolithiasis. Bilateral renal cysts and additional hypodensities, several of which demonstrate peripheral calcification, compatible with remote hemorrhage. No hydronephrosis or nephrolithiasis. Focal area of soft tissue stranding and dilation within the mid right ureter, at the approximate level of the UPJ (series 2, image 104 for example). Bladder: Moderately distended with mild diffuse bladder wall thickening. Reproductive Organs: Dystrophic calcifications within the prostate. Bowel: The bowel loops are normal in caliber. No ascites or pneumoperitoneum. Normal appendix. Lymph nodes: Prominent periportal nodes. No suspicious lymphadenopathy. Vasculature: Moderate calcific plaque of the aortoiliac vessels. Bones: Thoracolumbar spondylosis. No aggressive osseous lesions. CT/Abdomen/Pelvis without Cont IMPRESSION: 1. Focal area of soft tissue stranding and dilation of the right ureter at the right UPJ, which is indeterminate in etiology based on noncontrast examination. Recommend nonemergent outpatient CT abdomen pelvis with venous and delayed phase imaging for further evaluation to exclude neoplasm. 2. No hydronephrosis or nephrolithiasis. 3. Hepatosplenomegaly with diffusely increased hepatic density, most compatible with hemochromatosis. Additional considerations include Marquez's disease or amiodarone use. Clinical correlation recommended. 4. Mild diffuse bladder wall thickening, which may be secondary to developing U TI. Correlation with urinalysis recommended. 5. Tree-in-bud nodularity within the left lower lobe, likely infectious/inflamm atory etiology such as aspiration pneumonitis. Reading Location: [id number]
[2025-02-10 16:00] VITALS: BP 164/67; PULSE 88; O2SAT 91
[2025-02-10 18:00] VITALS: PULSE 89; RESP 20; O2SAT 91
[2025-02-10 18:16] LABS: AST(SGOT) 38 U/L (<=37); Alanine Aminotransfer ALT/SGPT 46 U/L (<=46); Albumin, Serum 4.2 g/dL (3.4-4.8); Alkaline Phosphatase 75 U/L (40-129); Bilirubin, Direct 0.57 mg/dL (0.00-0.30); Globulin 2.3 g/dL (2.2-4.2); Protein, Total 6.4 g/dL (5.9-8.4); Total Bilirubin 1.19 mg/dL (0.00-1.30)
== END 2025-02-10 19:03 | disposition home or self-care (01) ==
PROVIDERS: Emergency Medicine; Emergency Provider Surgery; PCP Clinical Nurse Specialist Adult Health; Visit Provider Surgery
DX: R30.0 Dysuria (principal); D46.9 Myelodysplastic syndrome, unspecified; R32 Unspecified urinary incontinence; M79.89 Other specified soft tissue disorders; I10 Essential (primary) hypertension; Z79.899 Other long term (current) drug therapy; Z87.891 Personal history of nicotine dependence
CPT/HCPCS: 74176; 80048; 80076; 81001; 85025; 86850; 86900; 86901; 93971; 96360; 99283; A4216

== ENCOUNTER 2025-02-11 08:03 | Outpatient (CLI) | payer MEDICARE, SELFPAY ==
[2025-02-11] VITALS (7 sets, daily range): BP systolic 111–134; BP diastolic 50–76; PULSE 62–79; RESP 16–18; TEMP 35.9–36.6; O2SAT 95–100
== END 2025-02-11 23:59 | disposition home or self-care (01) ==
LOC: MEDOUTP 08:04
PROVIDERS: PCP Clinical Nurse Specialist Adult Health; Referring Provider Internal Medicine Hematology & Oncology; Visit Provider Internal Medicine Hematology & Oncology
DX: D46.20 Refractory anemia with excess of blasts, unspecified (principal)
CPT/HCPCS: 36430; P9016; A4216

== ENCOUNTER 2025-02-25 08:24 | Outpatient (CLI) | payer MEDICARE, SELFPAY ==
[2025-02-25 08:45] VITALS: BP 132/43; PULSE 63; RESP 16; TEMP 35.8; O2SAT 99; BMI 26.3
[2025-02-25 09:11] VITALS: BP 128/45; PULSE 57; RESP 16; TEMP 35.7; O2SAT 95
[2025-02-25 10:13] VITALS: BP 120/90; PULSE 65; RESP 16; TEMP 35.7; O2SAT 97
[2025-02-25 11:37] VITALS: BP 136/51; PULSE 62; RESP 16; TEMP 35.8; O2SAT 98
[2025-02-25 12:56] VITALS: BP 141/53; PULSE 63; RESP 16; TEMP 35.6; O2SAT 100
== END 2025-02-25 23:59 | disposition home or self-care (01) ==
LOC: MEDOUTP 08:24
PROVIDERS: PCP Clinical Nurse Specialist Adult Health; Referring Provider Internal Medicine Hematology & Oncology; Visit Provider Internal Medicine Hematology & Oncology
DX: D46.20 Refractory anemia with excess of blasts, unspecified (principal)
CPT/HCPCS: 36430; 86644; 86850; 86900; 86901; P9016; A4216

== ENCOUNTER 2025-03-11 08:07 | Outpatient (CLI) | payer MEDICARE, SELFPAY ==
[2025-03-11 08:17] VITALS: BP 133/49; PULSE 60; RESP 16; TEMP 35.8; O2SAT 96
[2025-03-11 08:56] VITALS: BP 131/49; PULSE 58; RESP 16; TEMP 36.1; O2SAT 95
[2025-03-11 09:56] VITALS: BP 126/44; PULSE 60; RESP 16; TEMP 35.9; O2SAT 96
[2025-03-11 10:46] VITALS: BP 119/45; PULSE 60; RESP 16; TEMP 36; O2SAT 97
[2025-03-11 11:42] VITALS: BP 126/45; PULSE 58; RESP 16; TEMP 36.5; O2SAT 98
[2025-03-11 12:42] VITALS: BP 134/46; PULSE 64; RESP 16; TEMP 36.2; O2SAT 98
== END 2025-03-11 23:59 | disposition home or self-care (01) ==
LOC: MEDOUTP 08:07
PROVIDERS: PCP Clinical Nurse Specialist Adult Health; Referring Provider Internal Medicine Hematology & Oncology; Visit Provider Internal Medicine Hematology & Oncology
DX: D46.20 Refractory anemia with excess of blasts, unspecified (principal)
CPT/HCPCS: 36430; 86850; 86900; 86901; P9016; A4216

== ENCOUNTER 2025-03-25 08:05 | Outpatient (CLI) | payer MEDICARE, SELFPAY ==
[2025-03-25 08:26] VITALS: BP 131/49; PULSE 64; RESP 16; TEMP 36.2; O2SAT 94; BMI 26.6
[2025-03-25 09:01] VITALS: BP 127/89; PULSE 64; RESP 16; TEMP 36; O2SAT 96
[2025-03-25 10:31] VITALS: BP 141/49; PULSE 64; RESP 16
[2025-03-25 10:34] VITALS: BP 141/49; PULSE 64; RESP 16
== END 2025-03-25 23:59 | disposition home or self-care (01) ==
LOC: MEDOUTP 08:05
PROVIDERS: PCP Clinical Nurse Specialist Adult Health; Referring Provider Internal Medicine Hematology & Oncology; Visit Provider Internal Medicine Hematology & Oncology
DX: D46.9 Myelodysplastic syndrome, unspecified (principal)
CPT/HCPCS: 36430; 86850; 86900; 86901; P9016; A4216

== ENCOUNTER 2025-04-08 08:05 | Outpatient (CLI) | payer MEDICARE, SELFPAY ==
[2025-04-08] VITALS (7 sets, daily range): BP systolic 115–148; BP diastolic 43–51; PULSE 58–77; RESP 16; TEMP 36–36.2; O2SAT 94–98; BMI 26.6
== END 2025-04-08 23:59 | disposition home or self-care (01) ==
LOC: MEDOUTP 08:05
PROVIDERS: PCP Clinical Nurse Specialist Adult Health; Referring Provider Internal Medicine Hematology & Oncology; Visit Provider Internal Medicine Hematology & Oncology
DX: D46.20 Refractory anemia with excess of blasts, unspecified (principal)
CPT/HCPCS: 36430; 86850; 86900; 86901; P9016; A4216

== ENCOUNTER 2025-04-22 08:31 | Outpatient (CLI) | payer MEDICARE, SELFPAY ==
[2025-04-22] VITALS (7 sets, daily range): BP systolic 112–136; BP diastolic 37–53; PULSE 63–69; RESP 14–16; TEMP 35.8–36.4; O2SAT 95–99
== END 2025-04-22 23:59 | disposition home or self-care (01) ==
LOC: MEDOUTP 08:31
PROVIDERS: PCP Clinical Nurse Specialist Adult Health; Referring Provider Internal Medicine Hematology & Oncology; Visit Provider Internal Medicine Hematology & Oncology
DX: D46.9 Myelodysplastic syndrome, unspecified (principal)
CPT/HCPCS: 36430; 86850; 86900; 86901; P9016; A4216

== ENCOUNTER 2025-05-06 08:36 | Outpatient (CLI) | payer MEDICARE, SELFPAY ==
[2025-05-06] VITALS (7 sets, daily range): BP systolic 119–136; BP diastolic 45–62; PULSE 58–70; RESP 16; TEMP 35.7–35.9; O2SAT 94–99; BMI 26.6
== END 2025-05-06 23:59 | disposition home or self-care (01) ==
LOC: MEDOUTP 08:36
PROVIDERS: PCP Clinical Nurse Specialist Adult Health; Referring Provider Internal Medicine Hematology & Oncology; Visit Provider Internal Medicine Hematology & Oncology
DX: D46.20 Refractory anemia with excess of blasts, unspecified (principal)
CPT/HCPCS: 36430; 86850; 86900; 86901; P9016; A4216

== ENCOUNTER 2025-05-20 08:25 | Outpatient (CLI) | payer MEDICARE, SELFPAY ==
[2025-05-20 08:49] VITALS: BP 128/47; PULSE 69; RESP 16; TEMP 35.6; O2SAT 100; BMI 26.6
[2025-05-20] MEDS: 0.9% NaCl Peripheral Flush Adult IV (08:51)
[2025-05-20 09:29] VITALS: BP 129/50; PULSE 73; RESP 16; TEMP 36.7; O2SAT 100
[2025-05-20 10:29] VITALS: BP 121/44; PULSE 64; RESP 16; TEMP 35.9; O2SAT 100
[2025-05-20 11:54] VITALS: BP 145/52; PULSE 72; RESP 16; TEMP 36; O2SAT 99
[2025-05-20 12:18] VITALS: BP 132/47; PULSE 65; RESP 16; TEMP 35.8; O2SAT 98
[2025-05-20 13:45] VITALS: BP 130/46; PULSE 65; RESP 16; TEMP 35.8; O2SAT 98
== END 2025-05-20 23:59 | disposition home or self-care (01) ==
PROVIDERS: PCP Clinical Nurse Specialist Adult Health; Referring Provider Internal Medicine Hematology & Oncology; Visit Provider Internal Medicine Hematology & Oncology
DX: D46.20 Refractory anemia with excess of blasts, unspecified (principal)
CPT/HCPCS: 36430; 86850; 86900; 86901; P9016; A4216

== ENCOUNTER 2025-06-03 08:05 | Outpatient (CLI) | payer MEDICARE, SELFPAY ==
[2025-06-03] VITALS (8 sets, daily range): BP systolic 118–136; BP diastolic 36–56; PULSE 58–64; RESP 16; TEMP 36.2–36.8; O2SAT 97–99; BMI 25.8
== END 2025-06-03 23:59 | disposition home or self-care (01) ==
PROVIDERS: PCP Clinical Nurse Specialist Adult Health; Referring Provider Internal Medicine Hematology & Oncology; Visit Provider Internal Medicine Hematology & Oncology
DX: D46.20 Refractory anemia with excess of blasts, unspecified (principal)
CPT/HCPCS: 36430; 86850; 86900; 86901; P9016; A4216

== ENCOUNTER 2025-06-17 08:05 | Outpatient (CLI) | payer MEDICARE, SELFPAY ==
[2025-06-17 08:21] VITALS: BP 101/89; PULSE 66; RESP 16; TEMP 36.2; O2SAT 99; BMI 26.3
[2025-06-17 08:50] VITALS: BP 116/53; PULSE 63; RESP 16; TEMP 36.2; O2SAT 99
[2025-06-17 09:50] VITALS: BP 125/61; PULSE 69; RESP 14; TEMP 36.1; O2SAT 98
[2025-06-17 10:45] VITALS: BP 111/48; PULSE 66; RESP 16; TEMP 36.2; O2SAT 98
[2025-06-17 11:45] VITALS: BP 123/51; PULSE 67; RESP 16; TEMP 36.1; O2SAT 98
[2025-06-17 12:24] VITALS: BP 136/55; PULSE 72; RESP 16; TEMP 36; O2SAT 99
== END 2025-06-17 23:59 | disposition home or self-care (01) ==
LOC: MEDOUTP 08:06
PROVIDERS: PCP Clinical Nurse Specialist Adult Health; Referring Provider Internal Medicine Hematology & Oncology; Visit Provider Internal Medicine Hematology & Oncology
DX: D46.20 Refractory anemia with excess of blasts, unspecified (principal)
CPT/HCPCS: 36430; 86850; 86900; 86901; P9016; A4216

== ENCOUNTER 2025-07-01 08:39 | Outpatient (CLI) | payer MEDICARE, SELFPAY ==
[2025-07-01 08:55] VITALS: BP 139/57; PULSE 69; RESP 16; TEMP 35.8; O2SAT 98; BMI 26.3
[2025-07-01 09:51] VITALS: BP 126/51; PULSE 64; RESP 14; TEMP 35.9; O2SAT 96
[2025-07-01 10:51] VITALS: BP 128/45; PULSE 71; RESP 16; TEMP 36.1; O2SAT 99
[2025-07-01 12:15] VITALS: BP 131/46; PULSE 65; RESP 16; TEMP 36.1; O2SAT 99
[2025-07-01 13:36] VITALS: BP 126/41; PULSE 66; RESP 16
== END 2025-07-01 23:59 | disposition home or self-care (01) ==
LOC: MEDOUTP 08:40
PROVIDERS: PCP Clinical Nurse Specialist Adult Health; Referring Provider Internal Medicine Hematology & Oncology; Visit Provider Internal Medicine Hematology & Oncology
DX: D46.20 Refractory anemia with excess of blasts, unspecified (principal)
CPT/HCPCS: 36430; 86850; 86900; 86901; P9016; A4216

== ENCOUNTER 2025-07-15 08:39 | Outpatient (CLI) | payer MEDICARE, SELFPAY ==
[2025-07-15 08:56] VITALS: BP 125/33; PULSE 69; RESP 14; TEMP 36.4; O2SAT 96; BMI 26.3
[2025-07-15 09:25] VITALS: BP 120/41; PULSE 68; RESP 16; TEMP 36.6
[2025-07-15 10:40] VITALS: BP 121/44; PULSE 66; RESP 16; TEMP 37; O2SAT 99
[2025-07-15 11:25] VITALS: BP 130/50; PULSE 68; RESP 16; TEMP 36.5; O2SAT 98
[2025-07-15 12:47] VITALS: BP 142/46; PULSE 69; RESP 16; TEMP 36.6; O2SAT 98
== END 2025-07-15 23:59 | disposition home or self-care (01) ==
LOC: MEDOUTP 08:39
PROVIDERS: PCP Clinical Nurse Specialist Adult Health; Referring Provider Internal Medicine Hematology & Oncology; Visit Provider Internal Medicine Hematology & Oncology
DX: D46.9 Myelodysplastic syndrome, unspecified (principal)
CPT/HCPCS: 36430; 86850; 86900; 86901; P9016; A4216

== ENCOUNTER 2025-07-29 08:08 | Outpatient (CLI) | payer MEDICARE, SELFPAY ==
[2025-07-29 08:27] VITALS: BP 133/43; PULSE 68; RESP 16; TEMP 36.3; O2SAT 98; BMI 26.3
[2025-07-29 09:05] VITALS: BP 118/43; PULSE 64; RESP 16; TEMP 36.3; O2SAT 100
[2025-07-29 10:02] VITALS: BP 134/48; PULSE 70; RESP 16; TEMP 36.5
[2025-07-29 10:38] VITALS: BP 123/41; PULSE 66; RESP 14; TEMP 36.4; O2SAT 96
[2025-07-29 11:48] VITALS: BP 136/47; PULSE 68; RESP 16; TEMP 36.3
[2025-07-29 13:23] VITALS: BP 129/42; PULSE 67; RESP 16; TEMP 36.4; O2SAT 95
== END 2025-07-29 23:59 | disposition home or self-care (01) ==
LOC: MEDOUTP 08:09
PROVIDERS: PCP Clinical Nurse Specialist Adult Health; Referring Provider Internal Medicine Hematology & Oncology; Visit Provider Internal Medicine Hematology & Oncology
DX: D46.9 Myelodysplastic syndrome, unspecified (principal)
CPT/HCPCS: 36430; 86850; 86900; 86901; P9016; A4216

== ENCOUNTER 2025-08-12 08:37 | Outpatient (CLI) | payer MEDICARE, SELFPAY ==
[2025-08-12] VITALS (7 sets, daily range): BP systolic 118–140; BP diastolic 40–87; PULSE 61–70; RESP 14–16; TEMP 35.9–36.2; O2SAT 95–99; BMI 26.3
[2025-08-12] MEDS: 0.9% NaCl IVPB Med Flush (250 mL) 15 ML IV (09:03)
== END 2025-08-12 23:59 | disposition home or self-care (01) ==
LOC: MEDOUTP 08:38
PROVIDERS: PCP Clinical Nurse Specialist Adult Health; Referring Provider Internal Medicine Hematology & Oncology; Visit Provider Internal Medicine Hematology & Oncology
DX: D46.9 Myelodysplastic syndrome, unspecified (principal)
CPT/HCPCS: 36430; 86850; 86900; 86901; P9016; A4216

== ENCOUNTER 2025-08-26 08:10 | Outpatient (CLI) | payer MEDICARE, SELFPAY ==
[2025-08-26 08:34] VITALS: BP 145/51; PULSE 76; RESP 16; TEMP 36.2; O2SAT 98; BMI 26.3
[2025-08-26 09:06] VITALS: BP 140/45; PULSE 71; RESP 16; TEMP 36.3; O2SAT 95
[2025-08-26 10:13] VITALS: BP 125/45; PULSE 68; RESP 16; TEMP 36.2; O2SAT 95
[2025-08-26 11:01] VITALS: BP 118/41; PULSE 66; RESP 16; TEMP 36.2
[2025-08-26 12:01] VITALS: BP 142/49; PULSE 73; RESP 16; TEMP 36.2
== END 2025-08-26 23:59 | disposition home or self-care (01) ==
LOC: MEDOUTP 08:15
PROVIDERS: PCP Clinical Nurse Specialist Adult Health; Referring Provider Internal Medicine Hematology & Oncology; Visit Provider Internal Medicine Hematology & Oncology
DX: D46.9 Myelodysplastic syndrome, unspecified (principal)
CPT/HCPCS: 36430; 86850; 86900; 86901; P9016; A4216

== ENCOUNTER 2025-09-09 08:20 | Outpatient (CLI) | payer MEDICARE, SELFPAY ==
[2025-09-09 08:39] VITALS: BP 132/48; PULSE 75; RESP 16; TEMP 36.3; O2SAT 92; BMI 26.3
[2025-09-09 09:12] VITALS: BP 124/51; PULSE 67; RESP 16; TEMP 36.3; O2SAT 95
[2025-09-09 10:12] VITALS: BP 125/62; PULSE 69; RESP 16; TEMP 36.2
[2025-09-09 11:16] VITALS: BP 123/53; PULSE 66; RESP 16; TEMP 36.1; O2SAT 96
[2025-09-09 12:40] VITALS: BP 121/50; PULSE 67; RESP 16; TEMP 36.3; O2SAT 95
== END 2025-09-09 23:59 | disposition home or self-care (01) ==
LOC: MEDOUTP 08:20
PROVIDERS: PCP Clinical Nurse Specialist Adult Health; Referring Provider Internal Medicine Hematology & Oncology; Visit Provider Internal Medicine Hematology & Oncology
DX: D46.Z Other myelodysplastic syndromes (principal)
CPT/HCPCS: 36430; 86644; 86850; 86900; 86901; P9016; A4216

== ENCOUNTER 2025-09-23 08:13 | Outpatient (CLI) | payer MEDICARE, SELFPAY ==
[2025-09-23 08:21] VITALS: BP 112/46; PULSE 78; RESP 16; TEMP 35.8; O2SAT 96; BMI 26.3
[2025-09-23 08:58] VITALS: BP 123/46; PULSE 68; RESP 16; TEMP 36.1
[2025-09-23 09:58] VITALS: BP 132/48; PULSE 65; RESP 16; TEMP 36.1; O2SAT 98
[2025-09-23 10:49] VITALS: BP 143/54; PULSE 73; RESP 16; TEMP 35.8; O2SAT 96
[2025-09-23 11:32] VITALS: BP 134/53; PULSE 64; RESP 16; TEMP 35.9; O2SAT 98
[2025-09-23 12:42] VITALS: BP 134/48; PULSE 65; RESP 16; TEMP 35.8; O2SAT 98
== END 2025-09-23 23:59 | disposition home or self-care (01) ==
LOC: MEDOUTP 08:13
PROVIDERS: PCP Clinical Nurse Specialist Adult Health; Referring Provider Internal Medicine Hematology & Oncology; Visit Provider Internal Medicine Hematology & Oncology
DX: D46.9 Myelodysplastic syndrome, unspecified (principal)
CPT/HCPCS: 36430; 86644; 86850; 86900; 86901; P9016; A4216

== ENCOUNTER 2025-10-07 08:31 | Outpatient (CLI) | payer MEDICARE, SELFPAY ==
[2025-10-07] VITALS (7 sets, daily range): BP systolic 123–139; BP diastolic 37–47; PULSE 65–77; RESP 16; TEMP 36.2–36.3; O2SAT 94–98; BMI 26.3
--- OUTSIDE RECORDS SUMMARY | 2025-10-07 08:58 | XMS RPT_ITS | CCD ---
Author Organization [facility] CliniSyut Care Team Providers Care Stem Roller Operator Name Role Phone Sunday Carter PA-C Primary Care Provider Raul OGLESBY PA Sunday Phipps Primary Care Provider MENDEL Fraga Referring Provider Dr. Subhash Alfaro Attending Provider MENDEL Fraga Primary Care Provider MENDEL Fraga Referring Provider Dr. Subhash Alfaro Attending Provider Dr. Venkatesh Cast Attending Provider Penny WAREDRESSER, WAREDRESSER-C Delisa Attending Provider Dr. Jose Grimaldo Emergency Provider Dr. Lisa Armstrong Admit Provider Dr. Lisa Armstrong Attending Provider Dr. Lisa Armstrong Other Provider Dr. Neo Franks Other Provider Dr. Subhash Alfaro Other Provider Dr. Lary Russo Other Provider Dr. Fritz Obrien Other Provider Dr. Bakari Saeed Other Provider Unavailable Dr. Ilan Freitas Other Provider Dr. Henok Lopez Other Provider Penny WAREDRESSER, WAREDRESSER-C Delisa Other Provider Dr. Crispin Mcadams Attending Provider Dr. Crispin Mcadams Other Provider Dr. Lary Russo Attending Provider Gilmer GONZALEZ, WAREDRESSER-C Ritu Attending Provider Dr. Lalo Emery Other Provider Carter PA-C, M Moise Primary Care Provider Carter PA-C, M Moise Primary Care Provider Carter PA, PA [facility] Primary Care Provider Carter PA, PA M Moise Referring Provider Penny WAREDRESSER, WAREDRESSER-C Delisa Attending Provider Carter PA, PA [facility] Primary Care Provider Carter PA, PA [facility] Referring Provider Penny WAREDRESSER, WAREDRESSER-Victoria Hercules Attending Provider Gee PA, PA Aysha Brand Attending Provider Dr. Venkatesh Cast Attending Provider Carter PA, PA [facility] Primary Care Provider Carter PA, PA [facility] Referring Provider Juan José WAREDRESSER, WAREDRESSER-Victoria Renteria Attending Provider Carter PA, PA [facility] Primary Care Provider Dr. Venkatesh Cast Attending Provider Gee PA, PA Aysha Brand Referring Provider Carter PA, PA [facility] Referring Provider Carter PA, PA [facility] Primary Care Provider Carter PA, PA [facility] Primary Care Provider [phone] Carter PA, PA [facility] Referring Provider Juan José WAREDRESSER, WAREDRESSER-Victoria Renteria Attending Provider Carter PA-C, Sunday Moise Primary Care Provider Carter PA-C, Hetal Phipps Primary Care Provider Unavailable Masci DO, Steven Hollingsworth Unavailable Doup RN, Salena Unavailable Unavailable Haluis alberto GOLD MINER.AERIAL ERECTOR, Anita Unavailable Suppan GOLD MINER.AERIAL ERECTOR, Gladys A Unavailable [phone] Suppan GOLD MINER.AERIAL ERECTOR, Gladys A Unavailable Suppan GOLD MINER.AERIAL ERECTOR, Gladys A Unavailable Suppan GOLD MINER.AERIAL ERECTOR, Gladys A Primary Care Provi denise Sunday Fraga Primary Care Provider Masci , Dr. Harris Attending Provider Masci , Dr. Harris Referring Provider Sunday Fraga Primary Care Provider Masci DO, Dr. Harris Attending Provider Masci , Dr. Harris Referring Provider Sunday Fraga Primary Care Provider Masci DO, Dr. Harris Attending Provider Masci , Dr. Harris Referring Provider Suppan PAWAN, Gladys Primary Care Provider Zev FINCH, Dr. Cifuentes Attending Provider Zev FINCH, Dr. Cifuentes Emergency Provider Purnima DAWSON, Dr. May Attending Provider Zev FINCH, Dr. Cifuentes Referring Provider Sunday Fraga Primary Care Provider Masci , Dr. Harris Attending Provider Masci , Dr. Harris Referring Provider Sunday Fraga Primary Care Provider Masci , Dr. Harris Attending Provider Masci , Dr. Harris Referring Provider Sunday Fraga Primary Care Provider Masci DO, Dr. Harris Attending Provider Masci DO, Dr. Harris Referring Provider Sunday Fraga Primary Care Provider Masci DO, Dr. Harris Attending Provider Masci DO, Dr. Harris Referring Provider Sunday Fraga Primary Care Provider Masci DO, Dr. Harris Attending Provider Masci DO, Dr. Harris Referring Provider Masci DO, Dr. Harris Attending Provider Masci DO, Dr. Harris Referring Provider Suppan MUSIC PROFESSIONALS, Gladys Primary Care Provider Masci DO, Dr. Harris Attending Provider Masci DO, Dr. Harris Referring Provider Suppan MUSIC PROFESSIONALS, Gladys Primary Care Provider Masci DO, Dr. Harris Attending Provider Masci DO, Dr. Harris Referring Provider Suppan [employer] PROFESSION[employer], Gladys Primary Care Provider Masci DO, Dr. Harris Attending Provider Masci DO, Dr. Harris Referring Provider Suppan [employer] PROFESSION[employer], Gladys Primary Care Physician Masci DO, Dr. Harris Attending Physician Masci DO, Dr. Harris Referring Provider HETAL CARTER Primary Care Unavailable MASCISTEVEN Referring Unavailable SUPPAN, GLADYS A Primary Care Unavailable SUPPAN, GLADYS A Referring Unavailable MASCISTEVEN Referring Unavailable SUPPAN, GLADYS A Primary Care Unavailable SUPPAN, GLADYS A Primary Care Unavailable MASCISTEVEN Referring Unavailable SUPPAN, GLADYS A Primary Care Unavailable HETAL CARTER Primary Care Unavailable STEVEN AKERS Referring Unavailable MASCSTEVEN Armijo Attending Unavailable SUPPAN, GLADYS A Primary Care Unavailable MASCI, STEVEN A Referring Unavailable SUPPAN, GLADYS A Primary Care Unavailable CARTER, HETAL PHIPPS Primary Care Unavailable MASCI, STEVEN A Referring Unavailable CARTER, HETAL PHIPPS Primary Care Unavailable MASCI, STEVEN A Referring Unavailable CARTER, HETAL PHIPPS Primary Care Unavailable MASCI, STEVEN A Referring Unavailable CARTER, HETAL PHIPPS Primary Care Unavailable SUPPAN, GLADYS A Primary Care Unavailable SUPPAN, GLADYS A Primary Care Unavailable DOMENICA GARCIA Attending Unavailable MARIE LANZA Attending Unavailable SUPPAN, GLADYS A Primary Care Unavailable SUPPAN, GLADYS A Primary Care Unavailable SUPPAN, GLADYS A Primary Care Unavailable MASCI, STEVEN A Referring Unavailable SUPPAN, GLADYS A Primary Care Unavailable MASCI, STEVEN A Referring Unavailable SUPPAN, GLADYS A Primary Care Unavailable MASCI, STEVEN A Referring Unavailable SUPPAN, GLADYS A Primary Care Unavailable SUPPAN, GLADYS A Primary Care Unavailable SUPPAN, GLADYS A Attending Unavailable CARTER, HETAL PHIPPS Primary Care Unavailable MASCI, STEVEN A Referring Unavailable MASCI, STEVEN A Referring Unavailable SUPPAN, GLADYS A Primary Care Unavailable MASCI, STEVEN A Referring Unavailable SUPPAN, GLADYS A Primary Care Unavailable SUPPAN, GLADYS A Primary Care Unavailable MASCI, STEVEN A Referring Unavailable SUPPAN, GLADYS A Primary Care Unavailable MASCI, STEVEN A Referring Unavailable SUPPAN, GLADYS A Primary Care Unavailable MASCI, STEVEN A Referring Unavailable SUPPAN, GLADYS A Primary Care Unavailable MASCI, STEVEN A Attending Unavailable SUPPAN, GLADYS A Primary Care Unavailable SUPPAN, GLADYS A Primary Care Unavailable CARTER, HETAL PHIPPS Primary Care Unavailable MASCI, STEVEN A Referring Unavailable CARTER, HETAL PHIPPS Primary Care Unavailable MASCI, STEVEN A Attending Unavailable MASCI, STEVEN A Referring Unavailable CARTER, HETAL PHIPPS Primary Care Unavailable MASCI, STEVEN A Referring Unavailable CARTER, HETAL PHIPPS Primary Care Unavailable MASCI, STEVEN A Referring Unavailable CARTER, HETAL PHIPPS Primary Care Unavailable MASCI, STEVEN A Referring Unavailable CARTER, HETAL PHIPPS Primary Care Unavailable MASCI, STEVEN A Referring Unavailable CARTER, HETAL PHIPPS Primary Care Unavailable CARTER, HETAL PHIPPS Primary Care Unavailable MASCI, STEVEN A Attending Unavailable CARTER, HETAL PHIPPS Primary Care Unavailable CARTER, HETAL PHIPPS Primary Care Unavailable SUPPAN, GLADYS A Attending Unavailable HETAL CARTER MOISE Primary Care Unavailable MASCI, STEVEN Hollingsworth Referring Unavailable Suppan PAWAN, [facility] Primary Care Physician Masci DO, Dr. Harris Attending Physician [phone] Masci DO, Dr. Harris Referring Provider [phone] Sunday Fraga Primary Care Unavailable Masci, Steven Referring Unavailable Masci, Steven Attending Unavailable Sunday Fraga Moise Primary Care Unavailable Masci, Steven Referring Unavailable Masci, Steven Attending Unavailable Sunday Fraga Quentin Primary Care Unavailable Masci, Steven Referring Unavailable Masci, Steven Attending Unavailable Sunday Fraga Quentin Primary Care Unavailable Masci, Steven Referring Unavailable Masci, Steven Attending Unavailable Suppan, Gladys Primary Care Unavailable Masci, Steven Referring Unavailable Masci, Steven Attending Unavailable Suppan, Gladys Primary Care Unavailable Masci, Steven Referring Unavailable Masci, Steven Attending Unavailable Suppan, Gladys Primary Care Unavailable Masci, Steven Attending Unavailable Masci, Steven Referring Unavailable Suppan, Gladys Primary Care Unavailable Masci, Steven Attending Unavailable Masci, Steven Referring Unavailable Sunday Fraga Quentin Primary Care Unavailable Masci, Steven Referring Unavailable Masci, Steven Attending Unavailable Masci, Steven Referring Unavailable Suppan, Gladys Primary Care Unavailable Masci, Steven Attending Unavailable Suppan, Gladys Primary Care Unavailable Masci, Steven Referring Unavailable Masci, Steven Attending Unavailable Suppan, Gladys Primary Care Unavailable Klusty-Gurdeep, Esau Referring Unavailabl Lalo Gray Attending Unavailable Suppan, Gladys Primary Care Unavailable Masci, Steven Referring Unavailable Masci, Steven Attending Unavailable Suppan, Gladys Primary Care Unavailable Masci, Steven Referring Unavailable Masci, Steven Attending Unavailable Suppan, Gladys Primary Care Unavailable Klusty-Gurdeep, Esau Attending Unavailabl e Sunday Fraga Quentin Primary Care Unavailable Masci, Steven Attending Unavailable Masci, Steven Referring Unavailable Suppan, Gladys Primary Care Unavailable Masci, Steven Referring Unavailable Masci, Steven Attending Unavailable Masci, Steven Referring Unavailable Masci, Steven Attending Unavailable Suppan, Gladys Primary Care Unavailable Sunday Fraga Primary Care Unavailable Masci, Steven Referring Unavailable Masci, Steven Attending Unavailable Sunday Fraga Quentin Primary Care Unavailable Masci, Steven Referring Unavailable Masci, Steven Attending Unavailable Masci, Steven Referring Unavailable Masci, Steven Attending Unavailable Suppan, Gladys Primary Care Unavailable Masci, Steven Referring Unavailable Masci, Steven Attending Unavailable Suppan, Gladys Primary Care Unavailable Sunday Fraga [facility] Unavailable Masci, Steven Referring Unavailable Masci, Steven Attending Unavailable Suppan, Gladys Primary Care Unavailable Masci, Steven Attending Unavailable Masci, Steven Referring Unavailable Suppan, Gladys Primary Care Unavailable Masci, Steven Referring Unavailable Masci, Steven Attending Unavailable Suppan, Gladys Primary Care Unavailable Masci, Steven Attending Unavailable Masci, Steven Referring Unavailable Suppan, Gladys Primary Care Unavailable Masci, Steven Attending Unavailable Masci, Steven Referring Unavailable Allergies Allergy Classification Reported Allergen(s) Allergy Type Date of Onset Reaction(s) Facility Adrenergic Antagonists (4 sources) tamsulosin Drug Allergy 12-19-19 21 Intolerance [facility] fluticasone / salmeterol (4 sources) fluticasone / salmeterol Drug Allergy 03-15-20 11 Intolerance [facility] Work Phone: Mirtazapine (4 sources) Mirtazapine Drug Allergy 01-27-20 24 Intolerance [facility] Quinolones (antibiotic) (4 sources) levoFLOXacin Drug Allergy 01-15-20 24 Intolerance [facility] Serotonin Reuptake Inhibitors (SSRIs) (4 sources) PARoxetine Drug Allergy 11-07-20 17 Intolerance [facility] Sulfonamides (antibiotic) (4 sources) Sulfamethoxazole Drug Allergy 01-21-20 13 GI Upset [facility] (20 sources) fluticasone / salmeterol; Translations: [FLUTICASONE PROPION-SALMETEROL] Drug Allergy 03-15-20 11 Other: See Comments, Intolerance [facility] Work Phone: (20 sources) PARoxetine; Translations: [PAROXETINE HCL] Drug Allergy 11-07-20 17 Other: See Comments, Intolerance [facility] (20 sources) Sulfamethoxazole; Translations: [SULFAMETHOXAZOLE] Drug Allergy 01-21-20 13 GI Upset [facility] Comment on above: SORE THROAT (20 sources) tamsulosin; Translations: [TAMSULOSIN] Drug Allergy 12-19-19 21 Intolerance [facility] Work Phone: (20 sources) antibiotics [Other] Propensity to adverse reactions 03-15-20 11 Other: See Comments [facility] Work Phone: (20 sources) levoFLOXacin; Translations: [LEVOFLOXACIN] Drug Allergy 02-15-20 22 Intolerance [facility] Comment on above: WALKING AND PASSED OUT AND FELL INTO A WALL (20 sources) Trimethoprim Drug Allergy 02-15-20 22 Other [facility] Comment on above: SORE THROAT (20 sources) remdesivir Drug Allergy 01-28-20 23 Other [facility] (20 sources) Mirtazapine; Translations: [MIRTAZAPINE] Drug Allergy 01-27-20 24 Intolerance [facility] Work Phone: (1 source) levoFLOXacin Drug Allergy 08-26-20 25 [facility] Repository (1 source) Sulfamethoxazole Drug Allergy 08-26-20 25 [facility] Repository (1 source) Trimethoprim Drug Allergy 08-26-20 25 [facility] Repository (1 source) remdesivir Drug allergy (disorder) 08-26-20 25 [facility] Repository Medications Current Medications Medication Drug Class(es) Dates Sig (Normalized) Sig (Original) acetaminophen 500 mg oral tablet (20 sources) acetaminophen (TYLENOL) 500 mg tablet Indications: MDS (myelodysplastic syndrome), low grade (HCC) Take 1,000 mg by mouth as needed. Active Comment on above: Take 1,000 mg by garret th as needed. acetaminophen 325 mg / oxyCODONE hydrochloride 5 mg oral tablet (1 source) Opioid Agonist Start: 11-26-2022 End: 11-26-2022 take 1 tablet by mouth once, then take 1 tablet by mouth every hour oxyCODONE-acetaminophe n (PERCOCET) 5-325 mg tablet Indications: MDS (myelodysplastic syndrome), low grade (HCC) , 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 (HCC) Take 1 tablet by mouth one time only for 1 dose. about 1 hour prior to bone marrow biopsy. 1 tablet 0 11/26/2022 11/26/2022 Active Comment on above: Take 1 tablet by garret th one time only for 1 dose. about 1 hour prior to bone marrow biopsy. [id number] 200 actuat albuterol 0.09 mg/actuat metered dose inhaler (20 sources) beta2-Adrenergi c Agonist Start: 01-12-2024 Start: 01-12-2024 take 1 puff(s) by in halation every six hours Albuterol Sulfate Active 2 PUFF INHALATION EVERY 6 HOURS January 12, 2024 1:00am Start: 09-14-2021 take 2 puff(s) by in halation every four hours as needed for wheezing albuterol HFA (VENTOLIN HFA) 90 mcg/actuation inhaler Indications: Cough Inhale 2 Puffs as instructed every 4 hours as needed for wheezing/shortness of breath. 1 Each 5 09/14/2021 Active Start: 06-02-2020 End: 07-02-2020 Albuterol Sulfate 1 PUFF inh aler Discontinued 2 NMA inhalation EVERY 4 HOURS NEEDED as needed for SOB &/OR WHEEZING June 01, 2020 11:00pm June 30, 2020 11:00pm July 01, 2020 11:02pm Start: 06-02-2020 End: 07-02-2020 take 1 puff(s) by inhalation every four hours as needed Albuterol Sulfate Discontinued 2 PUFF inhalation EVERY 4 HOURS NEEDED 12 09June 02, 2020 12:00am July 02, 2020 12:02am Comment on above: Inhale 2 Puffs as in structed every 4 hours as needed for wheezing/shortness of breath. busPIRone hydrochloride 5 mg oral tablet (20 sources) Start: 07-20-20 End: 07-17-20 take 1 tablet by mouth three times daily calcium citrate 1040 mg oral tablet (20 sources) Start: 06-01-20 take 1 tablet by mouth once daily Calcium Citrate 250 mg calcium tab Take 1 tablet by mouth once daily. 06/01/2020 Active Comment on above: Take 1 tablet by garret th once daily. cholecalciferol 0.125 mg oral tablet (20 sources) Vitamin D Start: 01-12-20 take 1 tablet by mouth once daily Start: 06-12-2020 take 1 tablet by garret th once daily cholecalciferol (VITAMIN D-3) 5,000 unit tab Indications: MDS (myelodysplastic syndrome), low grade (HCC) Take 1 tablet by mouth once daily. 06/12/2020 Active Start: 05-30-2020 take 2000 [IU] by mo [facility] once daily Cholecalciferol (Vitamin D3) Active 2000 UNIT PO DAILY May 30, 2020 4:25pm Start: 05-30-2020 End: 01-12-2024 Cholecalciferol (Vitamin D3) 2,000 UNIT capsule Discontinued 5000 U PO DAILY May 29, 2020 11:00pm January 12, 2024 11:10am supplement Start: 05-30-2020 End: 01-12-2024 take 5000 [IU] by mouth once daily Cholecalciferol (Vitamin D3) Discontinued 5000 UNIT PO DAILY May 30, 2020 12:00am January 12, 2024 12:10pm Comment on above: Take 1 tablet by garret once daily. COMPOUNDED PRESCRIPTION (20 sources) Start: 03-31-2018 COMPOUNDED PRESCRIPTION Indications: Stasis edema of both lower extremities Compression stockings 30-40mmHg 2 pairs Stasis edema of both lower extremities (primary encounter diagnosis) 1 Each 03/31/2018 Active Start: 03-31-2018 COMPOUNDED PRE SCRIPTION Indications: Stasis edema of both lower extremities Compression stockings 30-40mmHg 2 pairs Stasis edema of both lower extremities (primary encounter diagnosis) 1 Each 0 03/31/2018 Active Comment on above: Compression stocking s 30-40mmHg 2 pairs Stasis edema of both lower extremities (primary encounter diagnosis) dexamethasone 2 mg oral tablet (4 sources) Corticosteroid Start: 07-15-2025 take 1 tablet by mouth once daily diphenhydrAMINE hydrochloride 25 mg oral tablet (19 sources) Histamine-1 Receptor Antagonist Start: 01-12-2024 take 1 tablet by mouth once as needed docusate sodium 50 mg / sennosides, half-way 8.6 mg oral tablet (20 sources) Start: 02-10-2025 Start: 04-18-2023 End: 01-12-2024 Sennosides-Docusate Sodium ( Senna Plus) 8.6-50 mg capsule Discontinued 1 NMA PO AT BEDTIME April 17, 2023 11:00pm January 12, 2024 11:12am enteric contrast (will be provided with radiology test) (1 source) Start: 11-26-2022 End: 11-27-2022 enteric contrast (will be provided with radiology test) Indications: MDS (myelodysplastic syndrome), low grade (HCC) , Waldenstrom macroglobulinemia (HCC) , Splenomegaly For CT CHESTABD/PEL W IVCON Routine order Administer, As Directed One Time Only, via Oral, Rectal, both Oral and Rectal, Enteric Tube, Stoma or Indwelling Catheter, Enteric Contrast as designated per enteric contrast guidelines 1 Each 0 11/26/2022 11/27/2022 Active Comment on above: For CT CHESTABD/PEL W IVCON Routine order Administer, As Directed One Time Only, via Oral, Rectal, both Oral and Rectal, Enteric Tube, Stoma or Indwelling Catheter, Enteric Contrast as designated per enteric contrast guidelines furosemide 40 mg oral tablet (20 sources) Loop Diuretic Start: 05-16-2022 End: 01-09-2023 take 1 tablet by mouth once daily as needed for edema Comment on above: Take 40 mg by mouth once daily. Take 40 mg by mouth as needed. Take 1 tablet by garret th as needed. hydrOXYzine hydrochloride 25 mg oral tablet (20 sources) Antihistamine Start: 02-03-2025 take 1 tablet by mouth four times daily as needed iv contrast (will be provided with radiology test) (1 source) Start: 11-26-2022 End: 11-27-2022 iv contrast (will be provided with radiology test) Indications: MDS (myelodysplastic syndrome), low grade (HCC) , Waldenstrom macroglobulinemia (HCC) , Splenomegaly CT Chest ABD/PEL-Inject, intravenously, once for 1 dose.No IV access, insert saline lock prior to the beginning of sedation, infusion, injection of imaging exam. Discontinue saline lock post exam. If Pt. has a central line or IVAD, may access for administration according to line specific nursing protocol. Once exam is complete flush line and de-access according to line specific nursing protocol in the CT contrast administration guidelines link. 1 Each 0 11/26/2022 11/27/2022 Active Comment on above: CT Chest ABD/PEL-Inj ect, intravenously, once for 1 dose.No IV access, insert saline lock prior to the beginning of sedation, infusion, injection of imaging exam. Discontinue saline lock post exam. If Pt. has a central line or IVAD, may access for administration according to line specific nursing protocol. Once exam is complete flush line and de-access according to line specific nursing protocol in the CT contrast administration guidelines link. LORazepam 1 mg oral tablet (1 source) Benzodiazepine Start: 11-26-2022 End: 11-26-2022 take 1 tablet by mouth once, then take 1 tablet by mouth every hour LORazepam (ATIVAN) 1 mg tablet Indications: MDS (myelodysplastic syndrome), low grade (HCC) , 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 (HCC) Take 1 tablet by mouth one time only for 1 dose. about 1 hour prior to bone marrow biopsy. 1 tablet 0 11/26/2022 11/26/2022 Active Comment on above: Take 1 tablet by garret th one time only for 1 dose. about 1 hour prior to bone marrow biopsy. luspatercept-aamt 100 mg in syringe 2 mL (REBLOZYL) (20 sources) Start: 03-06-2023 End: 03-05-2024 luspatercept-aamt 100 mg in syringe 2 mL (REBLOZYL) Inject 2 mL subcutaneously every 3 weeks. 34 mL 0 03/06/2023 03/05/2024 Active Comment on above: Inject 2 mL subcutan eously every 3 weeks. montelukast 10 mg oral tablet (20 sources) Leukotriene Receptor Antagonist Start: 08-24-2018 End: 01-28-2025 take 1 tablet by mouth at bedtime Comment on above: Take 1 tablet by garret th daily at bedtime. [place]-3 Fatty Acids-Fish Oil (Fish Oil) 1 EACH capsule (20 sources) Start: 05-22-2017 [place]-3 Fatty Acids-Fish Oil (Fish Oil) 1 EACH capsule Active 1 EACH PO TWICE A DAY May 22, 2017 5:12pm Start: 05-22-2017 End: 10-10-2022 [place]-3 Fatty Acids-Fish Oil (Fish Oil) 1 EACH capsule Discontinued 1 NMA PO DAILY May 21, 2017 11:00pm October 10, 2022 11:31am supplement Start: 05-22-2017 End: 10-10-2022 [place]-3 Fatty Acids-Fish Oil (Fish Oil) 1 EACH capsule Discontinued 1 NMA PO DAILY May 22, 2017 12:00am October 10, 2022 12:31pm supplement Start: 05-22-2017 End: 10-10-2022 [place]-3 Fatty Acids-Fish Oil (Fish Oil) 1 EACH capsule Discontinued 1 NMA PO DAILY May 22, 2017 12:00am October 10, 2022 12:31pm Start: 05-22-2017 End: 10-10-2022 [place]-3 Fatty Acids-Fish Oil (Fish Oil) 1 EACH capsule Discontinued 1 NMA PO DAILY May 21, 2017 11:00pm October 10, 2022 11:31am Start: 05-22-2017 End: 10-10-2022 [place]-3 Fatty Acids-Fish Oil (Fish Oil) 1 EACH capsule Discontinued 1 EACH PO DAILY May 21, 2017 11:00pm October 10, 2022 11:31am Start: 05-22-2017 End: 10-10-2022 [place]-3 Fatty Acids-Fish Oil (Fish Oil) 1 EACH capsule Discontinued 1 EACH PO DAILY May 22, 2017 12:00am October 10, 2022 12:31pm Start: 05-22-2017 [place]-3 Fatty Acids-Fish Oil (Fish Oil) 1 EACH capsule Active 1 EACH PO DAILY May 22, 2017 12:00am omeprazole 20 mg delayed release oral capsule (20 sources) Proton Pump Inhibitor Start: 01-24-2025 take 2 capsules by mouth once daily Start: 01-12-2024 End: 02-11-2025 take 1 capsule by mouth once daily Omeprazole 40 mg capsule,delayed release(DR/EC) Discontinued 40 mg PO DAILY January 12, 2024 12:00am February 11, 2025 7:29am Start: 08-24-2018 End: 01-22-2025 take 2 capsules by mouth once daily Omeprazole 20 MG capsule Discontinued 40 mg PO DAILY August 23, 2018 11:00pm January 12, 2024 11:11am GERD Start: 08-24-2018 End: 01-12-2024 take 40 mg by mouth once daily Omeprazole Discontinued 40 MG PO DAILY August 24, 2018 12:00am January 12, 2024 12:11pm Comment on above: Take 2 capsules by m out once daily. ondansetron 4 mg disintegrating oral tablet (20 sources) Serotonin-3 Receptor Antagonist Start: 04-17-2022 End: 06-18-2024 take 1 tablet by mouth every eight hours as needed for nausea and vomiting Comment on above: DISSOLVE 1 TABLET IN MOUTH EVERY 8 HOURS NEEDED FOR NAUSEA AND VOMITING Take 1 tablet by garret every 8 hours as needed for nausea/vomiting. DISSOLVE 1 TABLET IN MOUTH EVERY 8 HOURS NEEDED FOR NAUSEA AND VOMITING oxyCODONE hydrochloride 5 mg oral tablet (20 sources) Opioid Agonist Start: 02-10-2025 take 2 tablets by mouth every four hours as needed for pain Start: 02-03-2025 take 2.5-5 mg by garret th every six hours as needed for pain Oxycodone 5 mg tablet Active 2.5 - 5 mg PO EVERY 6 HOURS NEEDED as needed for pain February 10, 2025 12:00am polyethylene glycol 3350 39400 mg powder for oral solution (19 sources) Osmotic Laxative Start: 01-12-2024 take 17 g by mouth once daily as needed for constipation Polyethylene Glycols (20 sources) polyethylene glycol 3350 (MIRALAX ORAL) Take by mouth once daily as needed. Active polyethylene gly col 3350 (MIRALAX ORAL) Take by mouth once daily. Takes as needed Active polyethylene gly col 3350 (MIRALAX ORAL) Take by mouth once daily. Takes as needed 0 Active polyethylene gly col 3350 (MIRALAX ORAL) Take by mouth once daily. 0 Active Comment on above: Take by mouth once d aily. quercetin 500 mg oral capsule (20 sources) Start: 10-10-2022 take 1 capsule by mouth once daily take 1 tablet by mouth once neville y QUERCETIN ORAL Take 1 tablet by mouth once daily. Active take 1 tablet by mouth once neville y QUERCETIN ORAL Take 1 tablet by mouth once daily. 0 Active Comment on above: Take 1 tablet by garret th once daily. tadalafil 2.5 mg oral tablet (20 sources) Phosphodiesterase 5 Inhibitor Start: 2019 End: 2024 take 1 tablet by mouth once daily Comment on above: Take 1 tablet by garret th once daily. TAKE 1 TABLET BY GARRET TH ONCE DAILY traMADol hydrochloride 50 mg oral tablet (20 sources) Opioid Agonist Start: 2024 End: 2024 take 1 tablet by mouth every eight hours as needed for pain traMADol (ULTRAM) 50 mg tablet Indications: Chronic midline low back pain without sciatica , MDS (myelodysplastic syndrome), low grade (HCC) , 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 Take 1 tablet by mouth every 8 hours as needed for pain for up to 30 days. 90 tablet 01/03/2025 02/02/2025 Active Start: 12-02-2024 End: 01-01-2025 take 1 tablet by mouth every eight hours as needed for pain traMADol (ULTRAM) 50 mg tablet Indications: Chronic midline low back pain without sciatica , MDS (myelodysplastic syndrome), low grade (HCC) , 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 Take 1 tablet by mouth every 8 hours as needed for pain for up to 30 days. 90 tablet 12/02/2024 01/01/2025 Active Start: 08-06-2024 End: 11-30-2024 take 1 tablet by mouth every eight hours as needed for pain traMADol (ULTRAM) 50 mg tablet Indications: Chronic midline low back pain without sciatica , MDS (myelodysplastic syndrome), low grade (HCC) , 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 Take 1 tablet by mouth every 8 hours as needed for pain for up to 30 days. 90 tablet 10/31/2024 11/30/2024 Active Start: 05-07-2024 End: 08-03-2024 take 1 tablet by mouth every eight hours as needed for pain traMADol (ULTRAM) 50 mg tablet Indications: Chronic midline low back pain without sciatica , MDS (myelodysplastic syndrome), low grade (HCC) , 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 Take 1 tablet by mouth every 8 hours as needed for pain for up to 30 days. 90 tablet 07/04/2024 08/03/2024 Active Start: 09-14-2021 End: 05-02-2024 take 1 tablet by mouth every six hours as needed for pain traMADol (ULTRAM) 50 mg tablet Indications: Chronic midline low back pain without sciatica , MDS (myelodysplastic syndrome), low grade (HCC) , 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 (HCC) Take 1 tablet by mouth every 6 hours as needed for pain for up to 30 days. 90 tablet 0 02/06/2024 03/07/2024 Active Start: 08-13-2021 End: 02-11-2025 take 1 tablet by mouth three times daily Tramadol (Ultram) 50 mg tablet Discontinued 50 mg PO THREE TIMES A DAY August 12, 2021 11:00pm February 11, 2025 7:28am pain Start: 08-13-2021 Tramadol (Ultr am) 50 mg tablet Active 50 EACH PO THREE TIMES A DAY August 13, 2021 3:36pm Comment on above: Take 1 tablet by garret th every 6 hours as needed for pain. Take 1 tablet by garret th every 6 hours as needed for pain for up to 30 days. Turmeric extract (20 sources) take 1 tablet by mouth once daily TURMERIC ORAL Take 1 tablet by mouth once daily. Active TURMERIC ORAL Ta ke by mouth once daily. Active vitamin b6 100 mg oral tablet (20 sources) Start: 08-24-2018 take 100 mg by mouth twice daily Pyridoxine (Vitamin B6) Active 100 MG PO TWICE A DAY August 24, 2018 9:45am Start: 08-24-2018 take 1 tablet by mouth once da ghulam Comment on above: Take 100 mg by mouth twice daily. Take 100 mg by mouth once daily. Completed/Discontinued Medications Medication Drug Class(es) Dates Sig (Normalized) Sig (Original) amoxicillin 875 mg / clavulanate 125 mg oral tablet (20 sources) Penicillin-class Antibacterial Start: 05-14-2022 End: 05-23-2022 Amoxicillin-Pot Clavulanate 875-125 mg tablet Discontinued 1 {tbl} PO TWICE A DAY 14 May 13, 2022 11:00pm May 23, 2022 9:27am Start: 05-14-2022 End: 05-23-2022 take 1 tablet by mouth twice daily Amoxicillin-Pot Clavulanate Discontinued 1 TABLET PO TWICE A DAY May 14, 2022 12:00am May 23, 2022 10:27am Comment on above: Take 1 tablet by garret th twice daily. calcium carbonate 500 mg chewable tablet (20 sources) Start: 06-12-2020 End: 12-20-2021 take 1-2 tablets by mouth once daily calcium carbonate (CALCIUM ANTACID) 500 mg chew Take 1-2 tablets by mouth once daily. 06/12/2020 12/20/2021 Discontinued Start: 05-30-2020 take 1 tablet by garret th once daily End: 02-27-2023 take 1000 mg by mouth once daily, then take 1000 mg by mouth once daily calcium carbonate (CALCIUM 500 ORAL) Take 1,000 mg by mouth once daily. States 1000mg daily 02/27/2023 Discontinued Comment on above: Take 1,000 mg by garret th once daily. States 1000mg daily cedazuridine 100 mg / decitabine 35 mg oral tablet (20 sources) Nucleoside Metabolic Inhibitor Start: 05-01-20 End: 07-11-20 Decitabine-Cedazurid ine (Inqovi) 35-100 mg tablet Discontinued 0 .ROUTE .COMPLEX April 30, 2022 11:00pm July 11, 2022 11:01am chemo 1 TAB orally ;x5 days then off 21 days cephalexin 500 mg oral capsule (20 sources) Cephalosporin Antibacterial Start: 02-11-20 End: 03-25-20 take 1 capsule by mouth twice daily Cephalexin 500 mg capsule Discontinued 500 mg PO TWICE A DAY 10 5 0 February 09, 2025 11:00pm March 25, 2025 7:16am Start: 06-02-2020 End: 06-09-2020 take 1 capsule by mouth every eight hours Cephalexin 500 MG capsule Discontinued 500 mg PO EVERY 8 HOURS 21 7 0 June 01, 2020 11:00pm June 07, 2020 11:00pm June 08, 2020 11:03pm Start: 05-28-2020 End: 06-02-2020 take 1 capsule by mouth four times daily Cephalexin 500 MG capsule Discontinued 500 mg PO 4 TIMES DAILY 28 0 May 27, 2020 11:00pm June 02, 2020 9:20am citalopram 10 mg oral tablet (20 sources) Serotonin Reuptake Inhibitor Start: 01-27-2025 End: 04-27-2025 take 1 tablet by mouth at bedtime Citalopram (Celexa) 10 mg tablet Discontinued 10 mg PO AT BEDTIME January 27, 2025 11:00pm February 11, 2025 7:30am clindamycin 300 mg oral capsule (20 sources) Lincosamide Antibacterial Start: 05-14-2022 End: 05-23-2022 take 1 capsule by mouth every eight hours Clindamycin Hcl 300 mg capsule Discontinued 300 mg PO Q8H 0 May 13, 2022 11:00pm May 23, 2022 9:27am Comment on above: Take 1 capsule by mo [facility] every 8 hours. Copper (20 sources) Copper-containing Intrauterine Device End: 06-30-2025 take 1 tablet by mouth once daily COPPER ORAL Take 1 tablet by mouth once daily. 06/30/2025 Discontinued take 1 tablet by mouth once neville y COPPER ORAL Take 1 tablet by mouth once daily. Active COPPER ORAL Take 1 tablet by mouth two times a day. Takes once daily Active COPPER ORAL Take 1 tablet by mouth two times a day. Takes once daily 0 Active take 1 tablet by mouth twice sarah ly COPPER ORAL Take 1 tablet by mouth twice daily. 0 Active Comment on above: Take 1 tablet by garret th twice daily. copper gluconate 2 mg oral tablet (4 sources) End: 2 take 1 tablet by mouth twice daily copper gluconate 2 mg tablet Take 2 mg by mouth twice daily. 05/21/2022 Discontinued (Discontinued by another Health Care Provider) Comment on above: Take 2 mg by mouth t wice daily. cranberry preparation 400 mg oral capsule (20 sources) Non-Standardized Food Allergenic Extract, Non-Standardized Plant Allergenic Extract Start: 0 End: 1 take 4 capsules by mouth once daily Cranberry 400 mg cap Take 4 capsules by mouth once daily. 06/12/2020 10/02/2021 Discontinued Start: 05-30-2020 take 1600 mg by mout h once daily as needed Cranberry Active 1600 MG PO DAILY NEEDED May 30, 2020 4:25pm Start: 05-30-2020 End: 04-17-2022 take 1 capsule by mouth once daily as needed Cranberry Fruit 400 MG capsule Discontinued 1600 mg PO DAILY NEEDED as needed for urinary May 30, 2020 12:00am April 17, 2022 4:16pm Start: 05-30-2020 End: 04-17-2022 take 1 capsule by mouth once daily as needed Cranberry Fruit 400 MG capsule Discontinued 1600 mg PO DAILY NEEDED as needed for urinary May 29, 2020 11:00pm April 17, 2022 3:16pm Start: 05-30-2020 End: 04-17-2022 take 1600 mg by mouth once daily as needed Cranberry Discontinued 1600 MG PO DAILY NEEDED May 29, 2020 11:00pm April 17, 2022 3:16pm Start: 05-30-2020 End: 04-17-2022 take 1600 mg by mouth once daily as needed Cranberry Discontinued 1600 MG PO DAILY NEEDED May 30, 2020 12:00am April 17, 2022 4:16pm decitabine 50 mg injection (20 sources) Nucleoside Metabolic Inhibitor Start: 09-30-2024 End: 09-30-2024 8.01 mg (0.1 mg/kg/dose 80.1 kg Treatment plan Recorded weight), SUBCUTANEOUS, ONCE, 1 dose, On Sandra 09/30/24 at 1000, EXP:__15 min RT (mix cold) Hazardous Chemotherapy Drug: Use appropriate PPE. Refrigerate. Start: 09-23-2024 End: 09-23-2024 8.01 mg (0.1 mg/kg/dose 80.1 kg Treatment plan Recorded weight), SUBCUTANEOUS, ONCE, 1 dose, On Sandra 09/23/24 at 1130, EXP:_15 min RT (mix cold) Hazardous Chemotherapy Drug: Use appropriate PPE. Refrigerate. Start: 09-16-2024 End: 09-16-2024 8.01 mg (0.1 mg/kg/dose 80.1 kg Treatment plan Recorded weight), SUBCUTANEOUS, ONCE, 1 dose, On Sandra 09/16/24 at 1000, EXP:_ 15 min RT (mix cold) Hazardous Chemotherapy Drug: Use appropriate PPE. Refrigerate. Start: 09-09-2024 End: 09-09-2024 8.01 mg (0.1 mg/kg/dose 80.1 kg Treatment plan Recorded weight), SUBCUTANEOUS, ONCE, 1 dose, On Sandra 09/09/24 at 1130, EXP:_15 min RT (mix cold) Hazardous Chemotherapy Drug: Use appropriate PPE. Refrigerate. Start: 09-02-2024 End: 09-02-2024 8.01 mg (0.1 mg/kg/dose 80.1 kg Treatment plan Recorded weight), SUBCUTANEOUS, ONCE, 1 dose, On Sandra 09/02/24 at 1200, EXP:__15 min RT (mix cold) Hazardous Chemotherapy Drug: Use appropriate PPE. Refrigerate. Start: 08-26-2024 End: 08-26-2024 8.01 mg (0.1 mg/kg/dose 80.1 kg Treatment plan Recorded weight), SUBCUTANEOUS, ONCE, 1 dose, On Sandra 08/26/24 at 1130, EXP:_15 min RT (mix cold) Hazardous Chemotherapy Drug: Use appropriate PPE. Refrigerate. Start: 08-19-2024 End: 08-19-2024 8.01 mg (0.1 mg/kg/dose 80.1 kg Treatment plan Recorded weight), SUBCUTANEOUS, ONCE, 1 dose, On Fri08/19/24 at 1100, EXP:_ 15 min RT (mix cold) Hazardous Chemotherapy Drug: Use appropriate PPE. Refrigerate. Start: 08-12-2024 End: 08-12-2024 8.01 mg (0.1 mg/kg/dose 80.1 kg Treatment plan Recorded weight), SUBCUTANEOUS, ONCE, 1 dose, On Fri08/12/24 at 1030, EXP:_15 min RT (mix cold) Hazardous Chemotherapy Drug: Use appropriate PPE. Refrigerate. Start: 08-05-2024 End: 08-05-2024 8.01 mg (0.1 mg/kg/dose 80. 1 kg Treatment plan Recorded weight), SUBCUTANEOUS, ONCE, 1 dose, On Fri08/05/24 at 1430, EXP: 15 min RT (mix cold) Hazardous Chemotherapy Drug: Use appropriate PPE. Refrigerate. Start: 07-28-2024 End: 07-28-2024 8.01 mg (0.1 mg/kg/dose 80.1 kg Treatment plan Recorded weight), SUBCUTANEOUS, ONCE, 1 dose, On Fri07/28/24 at 1100, EXP:_15 min RT (mix cold) Hazardous Chemotherapy Drug: Use appropriate PPE. Refrigerate. Start: 07-22-2024 End: 07-22-2024 8.01 mg (0.1 mg/kg/dose 80.1 kg Treatment plan Recorded weight), SUBCUTANEOUS, ONCE, 1 dose, On Fri07/22/24 at 1030, Expires: 07/22/24 @ (15 minutes) Hazardous Chemotherapy Drug: Use appropriate PPE. Refrigerate. Start: 07-15-2024 End: 07-15-2024 8.01 mg (0.1 mg/kg/dose 80.1 kg Treatment plan Recorded weight), SUBCUTANEOUS, ONCE, 1 dose, On Fri07/15/24 at 1100, Expires: 07/15/24 @ (15 minutes) Hazardous Chemotherapy Drug: Use appropriate PPE. Refrigerate. Start: 07-01-2024 End: 07-01-2024 8.01 mg (0.1 mg/kg/dose 80.1 kg Treatment plan Recorded weight), SUBCUTANEOUS, ONCE, 1 dose, On Sandra 07/01/24 at 1430, EXP:_15 min RT- (mix cold) Hazardous Chemotherapy Drug: Use appropriate PPE. Refrigerate. Start: 06-24-2024 End: 06-24-2024 decitabine 8.01 mg subcutane ous injection (DACOGEN) Start: 06-17-2024 End: 06-17-2024 decitabine 8.01 mg subcutane ous injection (DACOGEN) Start: 06-09-2024 End: 06-09-2024 decitabine 8.01 mg subcutane ous injection (DACOGEN) Start: 06-03-2024 End: 06-03-2024 decitabine 8.01 mg subcutane ous injection (DACOGEN) Start: 05-27-2024 End: 05-27-2024 decitabine 8.01 mg subcutane ous injection (DACOGEN) Start: 05-20-2024 End: 05-20-2024 decitabine 8.01 mg subcutane ous injection (DACOGEN) Start: 05-12-2024 End: 05-12-2024 decitabine 8.01 mg subcutane ous injection (DACOGEN) Start: 05-06-2024 End: 05-06-2024 decitabine 8.01 mg subcutane ous injection (DACOGEN) Start: 04-29-2024 End: 04-29-2024 decitabine 8.01 mg subcutane ous injection (DACOGEN) Start: 04-15-2024 End: 04-15-2024 decitabine 8.01 mg subcutane ous injection (DACOGEN) Start: 04-08-2024 End: 04-08-2024 decitabine 8.01 mg subcutane ous injection (DACOGEN) Start: 04-01-2024 End: 04-01-2024 decitabine 8.01 mg subcutane ous injection (DACOGEN) Start: 03-25-2024 End: 03-25-2024 decitabine 8.01 mg subcutane ous injection (DACOGEN) Start: 03-19-2024 End: 03-19-2024 decitabine 8.01 mg subcutane ous injection (DACOGEN) Start: 03-11-2024 End: 03-11-2024 decitabine 8.01 mg subcutane ous injection (DACOGEN) Start: 03-04-2024 End: 03-04-2024 decitabine 8.01 mg subcutane ous injection (DACOGEN) Start: 02-20-2024 End: 02-11-2025 take 50 mg intravenously every week Decitabine (Dacogen) 50 mg recon soln Discontinued 50 mg IV EVERY WEEK February 19, 2024 11:00pm February 11, 2025 7:30am deferasirox 500 mg tablet for oral suspension (20 sources) Iron Chelator Start: 04-21-2024 End: 01-27-2025 take 3 tablets by mouth once daily deferasirox (EXJADE) 500 mg disintegrating tablet Take 3 tablets by mouth once daily. Take on an empty stomach at least 30 minutes before food, preferably at the same time each day. Completely disperse tablets by stirring in at least 7 oz. water, orange juice, or apple juice until a fine suspension is obtained 90 tablet 5 04/21/2024 01/27/2025 Discontinued (Cost of medication) docusate sodium 100 mg oral capsule (20 sources) Start: 05-09-2022 End: 02-17-2023 take 2 capsules by mouth twice daily Docusate Sodium (Colace) 100 mg Capsule Discontinued 200 mg PO TWICE A DAY May 08, 2022 11:00pm February 17, 2023 12:44pm constipation doxazosin 4 mg oral tablet (20 sources) alpha-Adrenergic Toney Start: 12-11-2021 End: 04-21-2025 take 1 tablet by mouth at bedtime Doxazosin 4 mg tablet Discontinued 4 mg PO AT BEDTIME April 30, 2022 11:00pm March 25, 2025 7:16am bladder Comment on above: Take 1 tablet by garret th daily at bedtime. take 1 tablet by garret th once daily at bedtime doxycycline monohydrate 100 mg oral tablet (1 source) Tetracycline-class Drug Start: 09-14-2021 End: 09-28-2021 take 1 tablet by mouth twice daily doxycycline monohydrate 100 mg tablet Take 1 tablet by mouth twice daily for 14 days. 28 tablet 09/14/2021 09/28/2021 DULoxetine 20 mg delayed release oral capsule (8 sources) Serotonin and Norepinephrine Reuptake Inhibitor Start: 05-20-2025 End: 08-12-2025 take 1 capsule by mouth once daily Duloxetine (Cymbalta) 20 mg capsule,delayed release(DR/EC) Discontinued 20 mg PO DAILY May 19, 2025 11:00pm August 12, 2025 7:48am folic acid 1 mg oral tablet (20 sources) Start: 02-05-2024 End: 06-30-2025 take 1 tablet by mouth once daily folic acid 1 mg tablet Indications: MDS (myelodysplastic syndrome), low grade (HCC) Take 1 tablet by mouth once daily 90 tablet 3 01/28/2025 06/30/2025 Discontinued Start: 09-05-2022 End: 03-25-2025 take 0.4 mg by mouth once daily Folic Acid 400 mcg tab let Discontinued 0.4 mg PO DAILY 90 3 September 04, 2022 11:00pm March 25, 2025 7:16am Start: 09-05-2022 take 0.4 mg by mouth once neville y Folic Acid Active 0.4 MG PO DAILY 90 September 05, 2022 12:00am Start: 08-13-2021 End: 05-23-2022 Folic Acid 1 mg tablet Disco ntinued 1 NMA PO DAILY August 12, 2021 11:00pm May 23, 2022 10:00am supplement Start: 06-14-2021 End: 02-06-2023 take 1 tablet by mouth once daily Folic Acid 1 mg tablet Discontinued 1 mg PO DAILY 90 90 0 May 22, 2022 11:00pm August 19, 2022 11:00pm August 20, 2022 11:03pm Comment on above: Take 1 tablet by garret th once daily. Take 1 tablet by garret th once daily gabapentin 100 mg oral capsule (17 sources) Anti-epileptic Agent Start: 03-04-2025 End: 06-02-2025 take 1 capsule by mouth once daily Gabapentin 100 mg capsule Discontinued 100 mg PO DAILY March 10, 2025 11:00pm March 25, 2025 7:15am Start: 07-05-2021 End: 12-20-2021 take 1 capsule by mouth three times daily gabapentin (NEURONTIN) 300 mg capsule Indications: Chronic midline low back pain without sciatica , Polyneuropathy in other diseases classified elsewhere (HCC) Take 1 capsule by mouth three times daily for 90 days. 270 capsule 1 07/05/2021 12/20/2021 Discontinued 12 hr guaiFENesin 600 mg extended release oral tablet (20 sources) Start: 07-03-2023 End: 10-16-2023 take 2 tablets by mouth twice daily guaiFENesin (MUCINEX) 600 mg 12 hr tablet Take 2 tablets by mouth twice daily. 120 tablet 2 07/03/2023 10/16/2023 Discontinued Start: 06-02-2020 End: 06-09-2020 take 1 tablet by mouth twice daily Guaifenesin 1,200 MG tablet Discontinued 1200 mg PO TWICE A DAY 14 7 0 June 01, 2020 11:00pm June 07, 2020 11:00pm June 08, 2020 11:03pm Comment on above: Take 2 tablets by mo [facility] twice daily. Lactobacillus acidophilus (20 sources) End: take 1 capsule by mouth once daily Lactobacillus acidophilus (PROBIOTIC ORAL) Take 1 capsule by mouth once daily. Takes 30 Billion cell capsule 01/27/2025 Discontinued (Discontinued by Patient) take 1 capsule by mouth once sarah ly Lactobacillus acidophilus (PROBIOTIC ORAL) Take 1 capsule by mouth once daily. Takes 30 Billion cell capsule Active take 1 capsule by mouth once sarah ly Lactobacillus acidophilus (PROBIOTIC ORAL) Take 1 capsule by mouth once daily. Takes 30 Billion cell capsule 0 Active levothyroxine sodium 0.025 mg oral capsule (20 sources) l-Thyroxine Start: 08-06-2024 End: 02-10-2025 take 1 capsule by mouth once daily Levothyroxine 25 mcg capsule Discontinued 25 ug PO DAILY August 05, 2024 11:00pm February 10, 2025 11:58am Start: 07-27-2024 End: 08-23-2025 take 1 tablet by mouth once daily losartan potassium 25 mg oral tablet (20 sources) Angiotensin 2 Receptor Toney Start: 04-26-2022 End: 07-29-2025 take 1 tablet by mouth once daily Losartan 25 mg tablet Discontinued 25 mg PO DAILY 90 3 May 30, 2025 11:27am July 29, 2025 8:10am Comment on above: [facility] luspatercept-aamt 75 mg injection (20 sources) Start: 02-17-2023 End: 01-30-2024 Luspatercept-Aamt Discontinued 25 MG SC every 3 weeks February 17, 2023 1:43pm January 30, 2024 9:25am Start: 02-17-2023 End: 01-30-2024 Luspatercept-Aamt 75 mg pat n soln Discontinued 25 mg SC every 3 weeks February 17, 2023 12:43pm January 30, 2024 8:25am Magnesium (20 sources) End: 02-27-2023 take 1 tablet by mouth once daily Magnesium 200 mg tab Take 1 tablet by mouth once daily. 0 02/27/2023 Discontinued take 1 tablet by mouth once neville y Magnesium 200 mg tab Take 1 tablet by mouth once daily. 0 Active Comment on above: Take 1 tablet by garret once daily. magnesium hydroxide 1200 mg chewable tablet (20 sources) Start: End: take 1 tablet by mouth once daily as needed for constipation Magnesium Hydroxide (Dulcolax (Magnesium Hydroxide)) 1,200 mg tablet,chewable Discontinued 1200 mg PO DAILY as needed for Constipation October 10, 2022 12:00am January 12, 2024 11:11am Comment on above: Take 1,200 mg by garret once daily. melatonin 5 mg oral capsule (20 sources) Start: End: take 2 capsules by mouth at bedtime as needed for sleep Melatonin 5 mg capsule Discontinued 10 mg PO AT BEDTIME as needed for sleep November 14, 2023 12:00am August 12, 2025 7:49am Start: 11-14-2023 take 10 mg by mouth at bedtime Melatonin Active 10 MG PO AT BEDTIME November 14, 2023 1:00am Start: 11-14-2023 Melatonin Acti ve MG November 14, 2023 12:00am End: 06-30-2025 take 1 capsule by mouth once daily at bedtime Melatonin 5 mg cap Take 1 capsule by mouth daily at bedtime. 06/30/2025 Discontinued Comment on above: Take 1 capsule by mo [facility] daily at bedtime. 0.6 ml methylnaltrexone bromide 20 mg/ml injection (5 sources) Opioid Antagonist Start: 2022 End: 2022 methylnaltrexone (RELISTOR) 12 mg/0.6 mL solution Indications: Constipation due to pain medication Inject 0.6 mL subcutaneously every 48 hours as needed. 9 mL 2 04/03/2023 05/01/2023 Discontinued Comment on above: Inject 0.6 mL subcut aneously every 48 hours as needed. mirtazapine 15 mg oral tablet (20 sources) Start: 2023 End: 2023 take 0.5 tablet by mouth once daily at bedtime mirtazapine (REMERON) 15 mg tablet Indications: Chronic insomnia Take 0.5 tablets by mouth daily at bedtime. 15 tablet 2 01/15/2024 07/20/2024 Discontinued (Discontinued by Patient) Comment on above: Take 0.5 tablets by mouth daily at bedtime. OLANZapine 2.5 mg oral tablet (20 sources) Atypical Antipsychotic Start: 2024 End: 2024 take 1 tablet by mouth at bedtime Olanzapine 2.5 mg tablet Discontinued 2.5 mg PO AT BEDTIME February 09, 2025 11:00pm August 12, 2025 7:49am Start: 12-16-2024 End: 01-28-2025 take 1 tablet by mouth at bedtime Olanzapine (Zyprexa) 2.5 mg tablet Discontinued 2.5 mg PO AT BEDTIME December 17, 2024 12:00am January 28, 2025 7:32am phenazopyridine hydrochloride 100 mg oral tablet (20 sources) Start: 05-28-2020 End: 04-17-2022 take 1 tablet by mouth three times daily as needed Phenazopyridine 100 MG tablet Discontinued 100 mg PO THREE TIMES A DAY as needed for dysuria 6 0 May 28, 2020 5:09pm April 17, 2022 3:17pm microencapsulated potassium chloride 20 meq extended release oral tablet (20 sources) Start: 05-22-2023 End: 02-26-2025 take 1 tablet by mouth once daily as needed potassium chloride ER (KLOR-CON) 20 mEq tablet Indications: Hypokalemia Take 1 tablet by mouth once daily as needed. 3 tablet 01/27/2025 02/26/2025 Comment on above: Take 1 tablet by [facility] once daily. QUERCETIN DIHYDRATE, BULK, MISC (3 sources) End: 05-21-2022 QUERCETIN DIHYDRATE, BULK, MISC PRN 0 05/21/2022 Discontinued (Discontinued by Patient) QUERCETIN DIHYDR ATE, BULK, MISC PRN 0 Active Comment on above: PRN sennosides, half-way 8.6 mg oral tablet (20 sources) Start: 05-09-2022 End: 06-12-2023 take 1 tablet by mouth once daily senna (SENOKOT) 8.6 mg tab Take 8.6 mg by mouth once daily. 0 05/09/2022 06/12/2023 Discontinued Start: 05-09-2022 End: 04-18-2023 take 2 tablets by mouth twice daily Sennosides (Senna) 8.6 mg Tablet Discontinued 17.2 mg PO TWICE A DAY May 08, 2022 11:00pm April 18, 2023 8:44am constipation Comment on above: Take 8.6 mg by mouth once daily. sildenafil 50 mg oral tablet (3 sources) Phosphodiesterase 5 Inhibitor Start: 06-24-2023 End: 07-03-2023 sildenafil (VIAGRA) 50 mg tablet 1-2 tabs as needed daily 30 tablet 5 06/24/2023 07/03/2023 Discontinued Comment on above: 1-2 tabs as needed d aily valACYclovir 1000 mg oral tablet (13 sources) Herpesvirus Nucleoside Analog DNA Polymerase Inhibitor, Herpes Simplex Virus Nucleoside Analog DNA Polymerase Inhibitor, Herpes Zoster Virus Nucleoside Analog DNA Polymerase Inhibitor Start: 03-11-2025 End: 03-25-2025 Valacyclovir 1 gram tablet Discontinued 1000 mg PO THREE TIMES A DAY March 10, 2025 11:00pm March 25, 2025 7:24am Start: 03-04-2025 End: 03-14-2025 take 1 tablet by mouth three times daily at mealtime valACYclovir (VALTREX) 1 gram tablet Indications: Herpes zoster without complication Take 1 tablet by mouth three times a day for 10 days. Take with food 30 tablet 03/04/2025 03/14/2025 Active vitamin b12 1 mg oral capsule (20 sources) Vitamin B12 Start: 07-11-2022 End: 02-17-2023 take 1 capsule by mouth every month Cyanocobalamin (Vitamin B-12) 1,000 mcg capsule Discontinued 1000 ug PO EVERY MONTH July 10, 2022 11:00pm February 17, 2023 12:43pm Zinc (1 source) End: 12-20-2021 ZINC ORAL Take by mouth. 12/20/2021 Discontinued Problems Active Problems Problem Classification Problem Date Documented Da te Episodic/Chronic Abdominal pain (20 sources) Abdominal pain; Translations: [Unspecified abdominal pain] Onset: 5 03-07-2023 Episodic Administrative/social admission (20 sources) Patient encounter status; Translations: [Counseling, unspecified] Onset: 2 Episodic Anxiety disorders (5 sources) Mixed anxiety and depressive disorder; Translations: [Other specified anxiety disorders] 07-20-2024 Chronic Cardiac dysrhythmias (1 source) Bradycardia; Translations: [Bradycardia, unspecified] Episodic Coagulation and hemorrhagic disorders (4 sources) Platelet count below reference range; Translations: [Thrombocytopenia, unspecified] Chronic Conditions associated with dizziness or vertigo (20 sources) Lightheadedness; Translations: [Dizziness and giddiness] 02-17-2023 Episodic Deficiency and other anemia (20 sources) Idiopathic aplastic anemia; Translations: [Idiopathic aplastic anemia] Onset: 7 08-11-2017 Chronic Deficiency and other anemia (20 sources) Pancytopenia; Translations: [Other pancytopenia] Onset: 5 Chronic Deficiency and other anemia (1 source) Other pancytopenia; Translations: [Other pancytopenia] Chronic Deficiency and other anemia (2 sources) Bone marrow disorder; Translations: [Other specified aplastic anemias and other bone marrow failure syndromes] Chronic Deficiency and other anemia (20 sources) Anemia; Translations: [Anemia, unspecified] Onset: 5 01-26-2023 Episodic Delirium, dementia, and amnestic and other cognitive disorders (1 source) Age-related physical debility; Translations: [Age-related physical debility] Onset: 5 Chronic Diseases of white blood cells (20 sources) Febrile neutropenia; Translations: [Neutropenia, unspecified] Chronic Diverticulosis and diverticulitis (20 sources) Diverticular disease; Translations: [Diverticulosis of intestine, part unspecified, without perforation or abscess without bleeding] Onset: 2 01-23-2012 Chronic Esophageal disorders (20 sources) Gastroesophageal reflux disease; Translations: [Gastro-esophageal reflux disease without esophagitis] Onset: 6 05-08-2016 Chronic Essential hypertension (20 sources) Hypertensive disorder; Translations: [Essential (primary) hypertension] Chronic Fluid and electrolyte disorders (2 sources) Hypervolemia; Translations: [Fluid overload, unspecified] 05-22-2023 Episodic Headache; including migraine (20 sources) Headache; Translations: [Headache] Episodic Comment on above: Diffuse, daily and p ersistent. Hyperplasia of prostate (11 sources) Nocturia due to benign prostatic hypertrophy; Translations: [Benign prostatic hyperplasia with lower urinary tract symptoms] Chronic Inflammatory conditions of male genital organs (1 source) Acute prostatitis; Translations: [Acute prostatitis] 09-14-2021 Episodic Malaise and fatigue (3 sources) Fatigue; Translations: [Chronic fatigue, unspecified] Onset: 5 07-20-2024 Chronic Malaise and fatigue (20 sources) Tired; Translations: [Other fatigue] Episodic Comment on above: Echocardiogram show normal EF with diastolic dysfunction R/O CHF with normal EF. 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 He did not tolerate TREV in 2014. Started Inqovi C1 on 04/21/2022 and finished on 04/25/2022.Had Neutropenic fever on 05/09/2022. Advised dose attenuation with cycle 2, however pt declined further treatment with Inqovi. Has not required PRBC transfusion since May 2022. Non-Hodgkin`s lymphoma (20 sources) Waldenstrom macroglobulinemia; Translations: [Waldenstrom macroglobulinemia] Onset: 6 Resolved: 7 08-21-2018 Chronic Comment on above: Lymphoplasmacytic ly mphoma, has mediastinal adenopathy and splenomegaly, no hypermetabolic activity suggestive of lymphoma. Other and ill-defined heart disease (20 sources) Diastolic dysfunction; Translations: [Other ill-defined heart diseases] Onset: 2 03-20-2022 Chronic Other and ill-defined heart disease (1 source) Other ill-defined heart diseases; Translations: [Diastolic dysfunction] Onset: 2 Chronic Other gastrointestinal disorders (20 sources) Constipation; Translations: [Constipation, unspecified] 04-30-2022 Episodic Comment on above: Already on Senna. Other gastrointestinal disorders (2 sources) Constipation, unspecified; Translations: [Constipation, unspecified] Episodic Other gastrointestinal disorders (8 sources) Splenomegaly; Translations: [Splenomegaly, not elsewhere classified] Episodic Other lower respiratory disease (20 sources) Dyspnea on exertion; Translations: [Other forms of dyspnea] 02-17-2023 Episodic Other lower respiratory disease (13 sources) Other forms of dyspnea; Translations: [Other respiratory abnormalities] 02-17-2023 Episodic Other nervous system disorders (20 sources) Polyneuropathy associated with another disorder; Translations: [Polyneuropathy in diseases classified elsewhere] Onset: 6 05-08-2016 Chronic Other nervous system disorders (1 source) Polyneuropathy in diseases classified elsewhere; Translations: [Polyneuropathy in other diseases classified elsewhere (HCC)] Onset: 6 Chronic Other nervous system disorders (1 source) Other chronic pain; Translations: [Chronic midline low back pain without sciatica] Onset: 5 Chronic Other nutritional; endocrine; and metabolic disorders (20 sources) 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; Translations: [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] Onset: 3 12-18-2022 Chronic Other nutritional; endocrine; and metabolic disorders (5 sources) Iron overload; Translations: [Other disorders of iron metabolism] 10-13-2024 Chronic Other nutritional; endocrine; and metabolic disorders (1 source) Other disorders of iron metabolism; Translations: [Iron overload] Onset: 5 Chronic Other nutritional; endocrine; and metabolic disorders (1 source) 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 Ferritin level is decreasing. Discussed differenti al diagnoses which includes malignancy, red marrow reconversion.PET/CT shows no evidence of NHL/Leukemia. Other upper respiratory disease (1 source) Seasonal allergic rhinitis; Translations: [Other seasonal allergic rhinitis] 01-28-2025 Chronic Pulmonary heart disease (20 sources) Pulmonary hypertension, unspecified; Translations: [Other chronic pulmonary heart diseases] Onset: 0 06-12-2020 Chronic Residual codes; unclassified (1 source) Obstructive sleep apnea syndrome; Translations: [Obstructive sleep apnea (adult) (pediatric)] 07-03-2023 Chronic Residual codes; unclassified (2 sources) Insomnia co-occurrent and due to medical condition; Translations: [Insomnia due to medical condition] 12-16-2024 Chronic Residual codes; unclassified (20 sources) Peripheral edema; Translations: [Edema, unspecified] 06-07-2020 Episodic Residual codes; unclassified (20 sources) Sign; Translations: [Other general symptoms and signs] 05-22-2022 Episodic Residual codes; unclassified (2 sources) Other general symptoms and signs; Translations: [Anemia, unspecified] Episodic Screening and history of mental health and substance abuse codes (2 sources) Encounter for screening for depression; Translations: [Encounter for screening examination for other mental health and behavioral disorders] Onset: Episodic Septicemia (except in labor) (20 sources) Sepsis; Translations: [Sepsis, unspecified organism] 04-25-2022 Episodic Spondylosis; intervertebral disc disorders; other back problems (14 sources) Chronic low back pain; Translations: [Chronic midline low back pain without sciatica] 03-04-2024 Episodic Superficial injury; contusion (20 sources) Contusion of chest; Translations: [Contusion of unspecified front wall of thorax, initial encounter] 06-19-2023 Episodic Thyroid disorders (5 sources) Subclinical hypothyroidism; Translations: [Other specified hypothyroidism] Onset: 4 07-27-2024 Chronic Unclassified (1 source) Chronic midline low back pain without sciatica; Translations: [Chronic midline low back pain without sciatica] Onset: 5 Unclassified (1 source) Established Patient Onset: 5 Urinary tract infections (20 sources) Acute cystitis; Translations: [Acute cystitis without hematuria] 04-25-2022 Episodic Past or Other Problems Problem Classification Problem Date Documented Da te Episodic/Chronic Deficiency and other anemia (20 sources) Macrocytic anemia; Translations: [Nutritional anemia, unspecified] Onset: 5 07-14-2015 Episodic Deficiency and other anemia (3 sources) Anemia, unspecified; Translations: [Anemia, unspecified] Onset: 5 Episodic Deficiency and other anemia (1 source) Nutritional anemia, unspecified; Translations: [Macrocytic anemia] Onset: 4 Episodic Genitourinary symptoms and ill-defined conditions (20 sources) Delay when starting to pass urine; Translations: [Hesitancy of micturition] Onset: 1 09-14-2021 Episodic Intestinal obstruction without hernia (20 sources) Intestinal obstruction co-occurrent and due to decreased peristalsis; Translations: [Ileus, unspecified] Onset: 0 06-12-2020 Episodic Other and unspecified benign neoplasm (20 sources) Benign neoplasm of colon; Translations: [Benign neoplasm of colon, unspecified] Onset: 2 05-01-2012 Episodic Other and unspecified benign neoplasm (20 sources) Benign neoplasm of rectum and anal canal; Translations: [Benign neoplasm of rectum] Onset: 2 05-01-2012 Episodic Other connective tissue disease (20 sources) Swelling of limb; Translations: [Other specified soft tissue disorders] Onset: 8 05-22-2018 Episodic Other diseases of kidney and ureters (20 sources) Cyst of kidney; Translations: [Cyst of kidney, acquired] Onset: 3 12-18-2022 Episodic Other gastrointestinal disorders (1 source) Splenomegaly, not elsewhere classified; Translations: [Splenomegaly] Onset: 5 Episodic Other lower respiratory disease (20 sources) Cough; Translations: [Cough] Onset: 8 05-22-2018 Episodic Residual codes; unclassified (20 sources) Family history of malignant neoplasm of gastrointestinal tract; Translations: [Family history of malignant neoplasm of digestive organs] Onset: 2 11-05-2021 Episodic Residual codes; unclassified (20 sources) H/O: blood transfusion; Translations: [Personal history of other medical treatment] Onset: 9 12-24-2018 Episodic Residual codes; unclassified (20 sources) Early satiety; Translations: [Early satiety] Onset: 1 09-14-2021 Episodic Respiratory failure; insufficiency; arrest (adult) (20 sources) Acute respiratory failure; Translations: [Acute respiratory failure with hypoxia] Onset: 0 Resolved: 4 06-12-2020 Episodic Varicose veins of lower extremity (20 sources) Venous varices; Translations: [Asymptomatic varicose veins of unspecified lower extremity] Onset: 2 01-30-2012 Episodic Viral infection (1 source) Zoster without complications; Translations: [Herpes zoster without complication] Onset: 5 Episodic Results Test Name Value Interpretation Reference Range Facility [facility] 09-08-2025 Normal [facility] Comment on above: Result Comment: [id number] OP RC TRANSFUSED 09/09/25 0842 [id number] OP RC TRANSFUSED 09/09/25 1041 Performed By: #### B , BT #### [facility] [address] [place] [address]. [place], [address] CBC W Auto Differential pane l (Bld)on 09-08-2025 Basophils (Bld) [#/Vol] 10*3/uL Normal <0.11 C [facility] Comment on above: Order Comment: Speci men Type: BLOOD SPECIMENOrdering Facility: [facility] Address: [address] [place] [address] Performed By: #### 5 7021-8 ####[facility] SHERRILIANNE [id number] [place] [address] [place] Basophils/100 WBC (Bld) 0.4 % Normal [facility] Comment on above: Order Comment: Speci men Type: BLOOD SPECIMENOrdering Facility: [facility] Address: [address] [place] [address] Performed By: #### 5 7021-8 ####[facility] [id number] [place] [address] [place] Differential cell count method Nom (Bld) Auto Normal [facility] Comment on above: Order Comment: Speci men Type: BLOOD SPECIMENOrdering Facility: [facility] Address: [address] [place] [address] Performed By: #### 5 7021-8 ####[facility] [id number] [place] [address] [place] Eosinophils (Bld) [#/Vol] 0.09 10*3/uL Normal <0.46 [facility] Comment on above: Order Comment: Speci men Type: BLOOD SPECIMENOrdering Facility: [facility] Address: [address] [place] [address] Performed By: #### 5 7021-8 ####[facility] [id number] [place] [address] [place] Eosinophils/100 WBC (Bld) 2.0 % Normal [facility] Comment on above: Order Comment: Speci men Type: BLOOD SPECIMENOrdering Facility: [facility] Address: [address] [place] [address] Performed By: #### 5 7021-8 ####[facility] [id number] [place] [address] [place] Erythrocyte distribution width (RBC) [Ratio] 19.9 % High 11.5-15.0 [facility] Comment on above: Order Comment: Speci men Type: BLOOD SPECIMENOrdering Facility: [facility] Address: [address] [place] [address] Performed By: #### 5 7021-8 ####[facility] WILLIAM [id number] [place] [address] [place] Hematocrit (Bld) [Volume fraction] 23.4 % Low 39.0-51.0 [facility] Comment on above: Order Comment: Speci men Type: BLOOD SPECIMENOrdering Facility: [facility] Address: [address] [place] [address] Performed By: #### 5 7021-8 ####[facility] [id number] [place] [address] [place] Hemoglobin (Bld) [Mass/Vol] 7.9 g/dL Low 13.0-17.0 [facility] Comment on above: Order Comment: Speci men Type: BLOOD SPECIMENOrdering Facility: [facility] Address: [address] [place] [address] Performed By: #### 5 7021-8 ####[facility]SLU[facility]ITO [id number] [place] [address] [place] Immature granulocytes (Bld) [#/Vol] 0.03 10*3/uL Normal <0.10 [facility] Comment on above: Order Comment: Speci men Type: BLOOD SPECIMENOrdering Facility: [facility] Address: [address] [place] [address] Performed By: #### 5 7021-8 ####[facility]CL[facility] [id number] [place] [address] [place] Immature granulocytes/100 WBC (Bld) 0.7 % Normal [facility] Comment on above: Order Comment: Speci men Type: BLOOD SPECIMENOrdering Facility: [facility] Address: [address] [place] [address] Performed By: #### 5 7021-8 ####[facility]CL[facility] [id number] [place] [address] [place] Lymphocytes (Bld) [#/Vol] 0.73 10*3/uL Low 1.00-4.00 [facility] Comment on above: Order Comment: Speci men Type: BLOOD SPECIMENOrdering Facility: [facility] Address: [address] [place] [address] Performed By: #### 5 7021-8 ####[facility]CL[facility] [id number] [place] [address] [place] Lymphocytes/100 WBC (Bld) 16.2 % Normal [facility] Comment on above: Order Comment: Speci men Type: BLOOD SPECIMENOrdering Facility: [facility] Address: [address] [place] [address] Performed By: #### 5 7021-8 ####[facility]SNCL[facility] [id number] [place] [address] [place] MCH (RBC) [Entitic mass] 29.8 pg Normal 26.0-34.0 [facility] Comment on above: Order Comment: Speci men Type: BLOOD SPECIMENOrdering Facility: [facility] Address: [address] [place] [address] Performed By: #### 5 7021-8 ####[facility] [id number] [place] [address] [place] MCHC (RBC) [Mass/Vol] 33.8 g/dL Normal 30.5-36.0 [facility] Comment on above: Order Comment: Speci men Type: BLOOD SPECIMENOrdering Facility: [facility] Address: [address] [place] [address] Performed By: #### 5 7021-8 ####[facility] [id number] [place] [address] [place] MCV (RBC) [Entitic vol] 88.3 fL Normal 80.0-100.0 C [facility] Comment on above: Order Comment: Speci men Type: BLOOD SPECIMENOrdering Facility: [facility] Address: [address] [place] [address] Performed By: #### 5 7021-8 ####[facility] [id number] [place] [address] [place] Monocytes (Bld) [#/Vol] 0.26 10*3/uL Normal <0.87 [facility] Comment on above: Order Comment: Speci men Type: BLOOD SPECIMENOrdering Facility: [facility] Address: [address] [place] [address] Performed By: #### 5 7021-8 ####[facility] [id number] [place] [address] [place] Monocytes/100 WBC (Bld) 5.8 % Normal [facility] Comment on above: Order Comment: Speci men Type: BLOOD SPECIMENOrdering Facility: [facility] Address: [address] [place] [address] Performed By: #### 5 7021-8 ####[facility] [id number] [place] [address] [place] Neutrophils (Bld) [#/Vol] 3.37 10*3/uL Normal 1.45-7.50 [facility] Comment on above: Order Comment: Speci men Type: BLOOD SPECIMENOrdering Facility: [facility] Address: [address] [place] [address] Performed By: #### 5 7021-8 ####[facility] [id number] [place] [address] [place] Neutrophils/100 WBC (Bld) 74.9 % Normal [facility] Comment on above: Order Comment: Speci men Type: BLOOD SPECIMENOrdering Facility: [facility] Address: [address] [place] [address] Performed By: #### 5 7021-8 ####[facility] SH[facility]NE [id number] [place] [address] [place] Nucleated RBC (Bld) [#/Vol] 10*3/uL Normal <0.01 [facility] Comment on above: Order Comment: Speci men Type: BLOOD SPECIMENOrdering Facility: [facility] Address: [address] [place] [address] Performed By: #### 5 7021-8 ####[facility]ITALDarrick [id number] [place] [address] [place] Nucleated RBC/100 WBC (Bld) [Ratio] 0.0 /100 WBC Normal [facility] Comment on above: Order Comment: Speci men Type: BLOOD SPECIMENOrdering Facility: [facility] Address: [address] [place] [address] Performed By: #### 5 7021-8 ####[facility]ITALDar[facility] [id number] [place] [address] [place] Platelet mean volume (Bld) [Entitic vol] 10.2 fL Normal 9.0-12.7 [facility] Comment on above: Order Comment: Speci men Type: BLOOD SPECIMENOrdering Facility: [facility] Address: [address] [place] [address] Performed By: #### 5 7021-8 ####[facility] [id number] [place] [address] [place] Platelets (Bld) [#/Vol] 148 10*3/uL Low 150-400 [facility] Comment on above: Order Comment: Speci men Type: BLOOD SPECIMENOrdering Facility: [facility] Address: [address] [place] [address] Performed By: #### 5 7021-8 ####[facility]SWNCL[facility] [id number] [place] [address] [place] RBC (Bld) [#/Vol] 2.65 10*6/uL Low 4.20-6.00 [facility] Comment on above: Order Comment: Speci men Type: BLOOD SPECIMENOrdering Facility: [facility] Address: [address] [place] [address] Performed By: #### 5 7021-8 ####[facility] [id number] [place] [address] [place] WBC (Bld) [#/Vol] 4.50 10*3/uL Normal 3.70-11.00 [facility] Comment on above: Order Comment: Speci men Type: BLOOD SPECIMENOrdering Facility: [facility] Address: [address] [place] [address] Performed By: #### 5 7021-8 ####[facility] [id number] [place] [address] [place] CNPNon 09-08-2025 CNPN Normal [facility] Type AND Screenon 09-08-2025 Ab SCREEN GEL PENDING Normal [facility] Comment on above: Order Comment: PRETR ANSFUSION PLT = 148 PERFORMED AT CCFWPRETRANSFUSION HGB = 7.9 HCT = 23.4 PERFORMED AT CCFWN1 @0815NYA Performed By: #### B ARNIE VELAS #### [facility] [address] [place], [address] ABO and Rh group Nom (Bld) Blood group B Rh(D) positive Normal [facility] Comment on above: Order Comment: PRETR ANSFUSION PLT = 148 PERFORMED AT CCFWPRETRANSFUSION HGB = 7.9 HCT = 23.4 PERFORMED AT FWN1 @0815NYA Performed By: #### B ARNIE VELAS #### [facility] [address] [place], [address] BRCon 08-25-2025 RC Normal [facility] Comment on above: Result Comment: [id number] OP RC TRANSFUSED 08/26/25 1028 [id number] BP RC TRANSFUSED 08/26/25 0838 Performed By: #### B ARNIE VELAS #### [facility] [address] [place], [address] CBC W Auto Differential pane l (Bld)on 08-25-2025 Basophils (Bld) [#/Vol] 10*3/uL Normal <0.11 C [facility] Comment on above: Order Comment: Speci men Type: BLOOD SPECIMENOrdering Facility: [facility] Address: [address] [place] [address] Performed By: #### 5 7021-8 ####[facility] SPRINGSWROCKYLIA [id number] [place] [address] [place] Basophils/100 WBC (Bld) 0.2 % Normal [facility] Comment on above: Order Comment: Speci men Type: BLOOD SPECIMENOrdering Facility: [facility] Address: [address] [place] [address] Performed By: #### 5 7021-8 ####[facility]INGSWROCKYL[facility] [id number] [place] [address] [place] Differential cell count method Nom (Bld) Auto Normal [facility] Comment on above: Order Comment: Speci men Type: BLOOD SPECIMENOrdering Facility: [facility] Address: [address] [place] [address] Performed By: #### 5 7021-8 ####[facility] [facility]INGSWNCLIA [id number] [place] [address] [place] Eosinophils (Bld) [#/Vol] 0.09 10*3/uL Normal <0.46 [facility] Comment on above: Order Comment: Speci men Type: BLOOD SPECIMENOrdering Facility: [facility] Address: [address] [place] [address] Performed By: #### 5 7021-8 ####[facility] [id number] [place] [address] [place] Eosinophils/100 WBC (Bld) 2.0 % Normal [facility] Comment on above: Order Comment: Speci men Type: BLOOD SPECIMENOrdering Facility: [facility] Address: [address] [place] [address] Performed By: #### 5 7021-8 ####[facility] [id number] [place] [address] [place] Erythrocyte distribution width (RBC) [Ratio] 19.3 % High 11.5-15.0 [facility] Comment on above: Order Comment: Speci men Type: BLOOD SPECIMENOrdering Facility: [facility] Address: [address] [place] [address] Performed By: #### 5 7021-8 ####[facility] [id number] [place] [address] [place] Hematocrit (Bld) [Volume fraction] 22.4 % Low 39.0-51.0 [facility] Comment on above: Order Comment: Speci men Type: BLOOD SPECIMENOrdering Facility: [facility] Address: [address] [place] [address] Performed By: #### 5 7021-8 ####[facility] [id number] [place] [address] [place] Hemoglobin (Bld) [Mass/Vol] 7.7 g/dL Low 13.0-17.0 [facility] Comment on above: Order Comment: Speci men Type: BLOOD SPECIMENOrdering Facility: [facility] Address: [address] [place] [address] Performed By: #### 5 7021-8 ####[facility] MILLTOWNCLIA [id number] [place] [address] [place] Immature granulocytes (Bld) [#/Vol] 0.03 10*3/uL Normal <0.10 [facility] Comment on above: Order Comment: Speci men Type: BLOOD SPECIMENOrdering Facility: [facility] Address: [address] [place] [address] Performed By: #### 5 7021-8 ####[facility]SWNCL[facility] [id number] [place] [address] [place] Immature granulocytes/100 WBC (Bld) 0.7 % Normal [facility] Comment on above: Order Comment: Speci men Type: BLOOD SPECIMENOrdering Facility: [facility] Address: [address] [place] [address] Performed By: #### 5 7021-8 ####[facility] [id number] [place] [address] [place] Lymphocytes (Bld) [#/Vol] 0.56 10*3/uL Low 1.00-4.00 [facility] Comment on above: Order Comment: Speci men Type: BLOOD SPECIMENOrdering Facility: [facility] Address: [address] [place] [address] Performed By: #### 5 7021-8 ####[facility] MILLWNCLIA [id number] [place] [address] [place] Lymphocytes/100 WBC (Bld) 12.3 % Normal [facility] Comment on above: Order Comment: Speci men Type: BLOOD SPECIMENOrdering Facility: [facility] Address: [address] [place] [address] Performed By: #### 5 7021-8 ####[facility] MILLWNCLIA [id number] [place] [address] [place] MCH (RBC) [Entitic mass] 30.4 pg Normal 26.0-34.0 [facility] Comment on above: Order Comment: Speci men Type: BLOOD SPECIMENOrdering Facility: [facility] Address: [address] [place] [address] Performed By: #### 5 7021-8 ####[facility] SPRINGSLUISITO [id number] [address] [place] MCHC (RBC) [Mass/Vol] 34.4 g/dL Normal 30.5-36.0 [facility] Comment on above: Order Comment: Speci men Type: BLOOD SPECIMENOrdering Facility: [facility] Address: [address] [place] [address] Performed By: #### 5 7021-8 ####[facility] SPRINGSROCKYDarrick [id number] [address] [place] MCV (RBC) [Entitic vol] 88.5 fL Normal 80.0-100.0 [facility] Comment on above: Order Comment: Speci men Type: BLOOD SPECIMENOrdering Facility: [facility] Address: [address] [place] [address] Performed By: #### 5 7021-8 ####[facility] SPRINGSLUISITO [id number] [place] [address] [place] Monocytes (Bld) [#/Vol] 0.21 10*3/uL Normal <0.87 [facility] Comment on above: Order Comment: Speci men Type: BLOOD SPECIMENOrdering Facility: [facility] Address: [address] [place] [address] Performed By: #### 5 7021-8 ####[facility] SPRINGSNCLI [id number] [address] [place] Monocytes/100 WBC (Bld) 4.6 % Normal [facility] Comment on above: Order Comment: Speci men Type: BLOOD SPECIMENOrdering Facility: [facility] Address: [address] [place] [address] Performed By: #### 5 7021-8 ####[facility] SHERRIWNCLIA [id number] [place] [address] [place] Neutrophils (Bld) [#/Vol] 3.64 10*3/uL Normal 1.45-7.50 [facility] Comment on above: Order Comment: Speci men Type: BLOOD SPECIMENOrdering Facility: [facility] Address: [address] [place] [address] Performed By: #### 5 7021-8 ####[facility] [id number] [place] [address] [place] Neutrophils/100 WBC (Bld) 80.2 % Normal [facility] Comment on above: Order Comment: Speci men Type: BLOOD SPECIMENOrdering Facility: [facility] Address: [address] [place] [address] Performed By: #### 5 7021-8 ####[facility] [id number] [place] [address] [place] Nucleated RBC (Bld) [#/Vol] 10*3/uL Normal <0.01 [facility] Comment on above: Order Comment: Speci men Type: BLOOD SPECIMENOrdering Facility: [facility] Address: [address] [place] [address] Performed By: #### 5 7021-8 ####[facility] [id number] [place] [address] [place] Nucleated RBC/100 WBC (Bld) [Ratio] 0.0 /100 WBC Normal [facility] Comment on above: Order Comment: Speci men Type: BLOOD SPECIMENOrdering Facility: [facility] Address: [address] [place] [address] Performed By: #### 5 7021-8 ####[facility] BECKYNCLIA [id number] [place] [address] [place] Platelet mean volume (Bld) [Entitic vol] 10.8 fL Normal 9.0-12.7 [facility] Comment on above: Order Comment: Speci men Type: BLOOD SPECIMENOrdering Facility: [facility] Address: [address] [place], [place] [address] Performed By: #### 5 7021-8 ####[facility] SPRINGSNCLIA [id number] [place] [address] [place] Platelets (Bld) [#/Vol] 145 10*3/uL Low 150-400 [facility] Comment on above: Order Comment: Speci men Type: BLOOD SPECIMENOrdering Facility: [facility] Address: [address] [place], [place] [address] Performed By: #### 5 7021-8 ####[facility] SPRINGSNCLIA [id number] [place] [address] [place] RBC (Bld) [#/Vol] 2.53 10*6/uL Low 4.20-6.00 [facility] Comment on above: Order Comment: Speci men Type: BLOOD SPECIMENOrdering Facility: [facility] Address: [address] [place] [address] Performed By: #### 5 7021-8 ####[facility] SPRINGSWNCL[facility] [id number] [place] [address] [place] WBC (Bld) [#/Vol] 4.54 10*3/uL Normal 3.70-11.00 [facility] Comment on above: Order Comment: Speci men Type: BLOOD SPECIMENOrdering Facility: [facility] Address: [address] [place] [address] Performed By: #### 5 7021-8 ####[facility] SPRINGSNCLIA [id number] [place] [address] [place] Type AND Screenon 08-25-2025 Ab SCREEN GEL Negative Normal [facility] Comment on above: Order Comment: PRETR ANSFUSION HGB = 7.7 HCT = 22.4 PERFORMED AT [facility] N 08/26/2025 @ 0800 N Y A Performed By: #### B MARGO VELA #### [facility] [address] [place], [address] CNPNon 08-15-2025 CNPN Normal [facility] BRCon 08-11-2025 RC Normal [facility] Comment on above: Result Comment: [id number] BN RC TRANSFUSED 08/12/25 0907 [id number] BN RC TRANSFUSED 08/12/25 1118 Performed By: #### B MARGO VELA #### [facility] [address] [place], [address] CBC W Auto Differential pane l (Bld)on 08-11-2025 Basophils (Bld) [#/Vol] 10*3/uL Normal <0.11 [facility] Comment on above: Order Comment: Speci men Type: BLOOD SPECIMENOrdering Facility: [facility] Address: [address] [place] [address] Performed By: #### 5 7021-8 ####[facility] [id number] [place] [address] [place] Basophils/100 WBC (Bld) 0.2 % Normal [facility] Comment on above: Order Comment: Speci men Type: BLOOD SPECIMENOrdering Facility: [facility] Address: [address] [place] [address] Performed By: #### 5 7021-8 ####[facility] [id number] [place] [address] [place] Differential cell count method Nom (Bld) Auto Normal [facility] Comment on above: Order Comment: Speci men Type: BLOOD SPECIMENOrdering Facility: [facility] Address: [address] [place] [address] Performed By: #### 5 7021-8 ####[facility] SHERRIMARIONNCLESLY [id number] [place] [address] [place] Eosinophils (Bld) [#/Vol] 0.09 10*3/uL Normal <0.46 [facility] Comment on above: Order Comment: Speci men Type: BLOOD SPECIMENOrdering Facility: [facility] Address: [address] [place] [address] Performed By: #### 5 7021-8 ####[facility] [id number] [place] [address] [place] Eosinophils/100 WBC (Bld) 1.4 % Normal [facility] Comment on above: Order Comment: Speci men Type: BLOOD SPECIMENOrdering Facility: [facility] Address: [address] [place] [address] Performed By: #### 5 7021-8 ####[facility] [id number] [place] [address] [place] Erythrocyte distribution width (RBC) [Ratio] 17.9 % High 11.5-15.0 [facility] Comment on above: Order Comment: Speci men Type: BLOOD SPECIMENOrdering Facility: [facility] Address: [address] [place] [address] Performed By: #### 5 7021-8 ####[facility] [id number] [place] [address] [place] Hematocrit (Bld) [Volume fraction] 21.8 % Low 39.0-51.0 [facility] Comment on above: Order Comment: Speci men Type: BLOOD SPECIMENOrdering Facility: [facility] Address: [address] [place] [address] Performed By: #### 5 7021-8 ####[facility] SPRINGSNCLIA [id number] [place] [address] [place] Hemoglobin (Bld) [Mass/Vol] 7.5 g/dL Low 13.0-17.0 [facility] Comment on above: Order Comment: Speci men Type: BLOOD SPECIMENOrdering Facility: [facility] Address: [address] [place] [address] Performed By: #### 5 7021-8 ####[facility] SPRINGSNCLIA [id number] [place] [address] [place] Immature granulocytes (Bld) [#/Vol] 0.04 10*3/uL Normal <0.10 [facility] Comment on above: Order Comment: Speci men Type: BLOOD SPECIMENOrdering Facility: [facility] Address: [address] [place] [address] Performed By: #### 5 7021-8 ####[facility] SPRINGSNCLIA [id number] [place] [address] [place] Immature granulocytes/100 WBC (Bld) 0.6 % Normal [facility] Comment on above: Order Comment: Speci men Type: BLOOD SPECIMENOrdering Facility: [facility] Address: [address] [place] [address] Performed By: #### 5 7021-8 ####[facility] SPRINGSNCLIA [id number] [place] [address] [place] Lymphocytes (Bld) [#/Vol] 0.70 10*3/uL Low 1.00-4.00 [facility] Comment on above: Order Comment: Speci men Type: BLOOD SPECIMENOrdering Facility: [facility] Address: [address] [place] [address] Performed By: #### 5 7021-8 ####[facility] [id number] [place] [address] [place] Lymphocytes/100 WBC (Bld) 10.9 % Normal [facility] Comment on above: Order Comment: Speci men Type: BLOOD SPECIMENOrdering Facility: [facility] Address: [address] [place] [address] Performed By: #### 5 7021-8 ####[facility] SPRINGSLUISITO [id number] [place] [address] [place] MCH (RBC) [Entitic mass] 30.5 pg Normal 26.0-34.0 [facility] Comment on above: Order Comment: Speci men Type: BLOOD SPECIMENOrdering Facility: [facility] Address: [address] [place] [address] Performed By: #### 5 7021-8 ####[facility] SPRINGSROCKYDarrick [id number] [place] [address] [place] MCHC (RBC) [Mass/Vol] 34.4 g/dL Normal 30.5-36.0 [facility] Comment on above: Order Comment: Speci men Type: BLOOD SPECIMENOrdering Facility: [facility] Address: [address] [place] [address] Performed By: #### 5 7021-8 ####[facility]SLUISITO [id number] [place] [address] [place] MCV (RBC) [Entitic vol] 88.6 fL Normal 80.0-100.0 C [facility] Comment on above: Order Comment: Speci men Type: BLOOD SPECIMENOrdering Facility: [facility] Address: [address] [place] [address] Performed By: #### 5 7021-8 ####[facility] SPRINGSNCLI [id number] [place] [address] [place] Monocytes (Bld) [#/Vol] 0.28 10*3/uL Normal <0.87 [facility] Comment on above: Order Comment: Speci men Type: BLOOD SPECIMENOrdering Facility: [facility] Address: [address] [place] [address] Performed By: #### 5 7021-8 ####[facility] [id number] [place] [address] [place] Monocytes/100 WBC (Bld) 4.3 % Normal [facility] Comment on above: Order Comment: Speci men Type: BLOOD SPECIMENOrdering Facility: [facility] Address: [address] [place] [address] Performed By: #### 5 7021-8 ####[facility] [id number] [place] [address] [place] Neutrophils (Bld) [#/Vol] 5.32 10*3/uL Normal 1.45-7.50 [facility] Comment on above: Order Comment: Speci men Type: BLOOD SPECIMENOrdering Facility: [facility] Address: [address] [place] [address] Performed By: #### 5 7021-8 ####[facility] [id number] [place] [address] [place] Neutrophils/100 WBC (Bld) 82.6 % Normal [facility] Comment on above: Order Comment: Speci men Type: BLOOD SPECIMENOrdering Facility: [facility] Address: [address] [place] [address] Performed By: #### 5 7021-8 ####[facility] [id number] [place] [address] [place] Nucleated RBC (Bld) [#/Vol] 0.02 10*3/uL High <0.01 [facility] Comment on above: Order Comment: Speci men Type: BLOOD SPECIMENOrdering Facility: [facility] Address: [address] [place], [place] [id number] Performed By: #### 5 7021-8 ####[facility] BECKYNCLIA [id number] [place] [address] [place] Nucleated RBC/100 WBC (Bld) [Ratio] 0.3 /100 WBC Normal [facility] Comment on above: Order Comment: Speci men Type: BLOOD SPECIMENOrdering Facility: [facility] Address: [address] [place] [address] Performed By: #### 5 7021-8 ####[facility]INGSNCL[facility] [id number] [place] [address] [place] Platelet mean volume (Bld) [Entitic vol] 10.6 fL Normal 9.0-12.7 [facility] Comment on above: Order Comment: Speci men Type: BLOOD SPECIMENOrdering Facility: [facility] Address: [address] [place] [address] Performed By: #### 5 7021-8 ####[facility] SPRINGSNCLIA [id number] [place] [address] [place] Platelets (Bld) [#/Vol] 160 10*3/uL Normal 150-400 [facility] Comment on above: Order Comment: Speci men Type: BLOOD SPECIMENOrdering Facility: [facility] Address: [address] [place] [address] Performed By: #### 5 7021-8 ####[facility]INGSNCLIA [id number] [place] [address] [place] RBC (Bld) [#/Vol] 2.46 10*6/uL Low 4.20-6.00 [facility] Comment on above: Order Comment: Speci men Type: BLOOD SPECIMENOrdering Facility: [facility] Address: [address] [place] [address] Performed By: #### 5 7021-8 ####[facility] [id number] [place] [address] [place] WBC (Bld) [#/Vol] 6.44 10*3/uL Normal 3.70-11.00 [facility] Comment on above: Order Comment: Speci men Type: BLOOD SPECIMENOrdering Facility: [facility] Address: [address] [place] [address] Performed By: #### 5 7021-8 ####[facility] MILLTOWNCLIA [id number] [place] [address] [place] CNPNon 08-11-2025 CNPN Normal [facility] Comprehensive metabolic 2000 panelon 08-11-2025 Albumin [Mass/Vol] 4.2 g/dL Normal 3.9-4.9 [facility] Comment on above: Order Comment: Speci men Type: BLOOD SPECIMENOrdering Facility: [facility] Address: [address] [place] [address] Performed By: #### 1 9123-9, 56142-4 ####[facility] SPRINGSWNCLIA [id number] [place] [address] [place] ALP [Catalytic activity/Vol] 94 U/L Normal 38-113 [facility] Comment on above: Order Comment: Speci men Type: BLOOD SPECIMENOrdering Facility: [facility] Address: [address] [place], [place] [id number] Performed By: #### 1 9123-9, 91541-2 ####[facility] MILLTOWNCLIA [id number] [place] [address] [place] ALT [Catalytic activity/Vol] 65 U/L High 10-54 [facility] Comment on above: Order Comment: Speci men Type: BLOOD SPECIMENOrdering Facility: [facility] Address: [address] [place] [address] Performed By: #### 1 9123-9, 46302-9 ####[facility] MILLTOWNCLIA [id number] [place] [address] [place] Anion gap [Moles/Vol] 11 mmol/L Normal 8-15 [facility] Comment on above: Order Comment: Speci men Type: BLOOD SPECIMENOrdering Facility: [facility] Address: [address] [place] [address] Performed By: #### 1 9123-9, 95774-4 ####[facility] MILLTOWNCLIA [id number] [place] [address] [place] AST [Catalytic activity/Vol] 41 U/L High 14-40 [facility] Comment on above: Order Comment: Speci men Type: BLOOD SPECIMENOrdering Facility: [facility] Address: [address] [place] [address] Performed By: #### 1 9123-9, 31357-6 ####[facility] MILLTOWROCKYLIA [id number] [place] [address] [place] Bilirubin [Mass/Vol] 0.7 mg/dL Normal 0.2-1.3 [facility] Comment on above: Order Comment: Speci men Type: BLOOD SPECIMENOrdering Facility: [facility] Address: [address] [place] [address] Performed By: #### 1 9123-9, 19198-3 ####[facility] MILLTOWNCLIA [id number] [place] [address] [place] Calcium [Mass/Vol] 9.7 mg/dL Normal 8.5-10.2 [facility] Comment on above: Order Comment: Speci men Type: BLOOD SPECIMENOrdering Facility: [facility] Address: [address] [place] [address] Performed By: #### 1 9123-9, 41719-8 ####[facility] MILLTOWNCLIA [id number] [place] [address] [place] Chloride [Moles/Vol] 99 mmol/L Normal 98-107 [facility] Comment on above: Order Comment: Speci men Type: BLOOD SPECIMENOrdering Facility: [facility] Address: [address] [place] [address] Performed By: #### 1 9123-9, 63310-3 ####[facility] [id number] [place] [address] [place] CO2 [Moles/Vol] 23 mmol/L Normal 22-30 [facility] Comment on above: Order Comment: Speci men Type: BLOOD SPECIMENOrdering Facility: [facility] Address: [address] [place] [address] Performed By: #### 1 9123-9, 23060-4 ####[facility] [id number] [place] [address] [place] Creatinine [Mass/Vol] 0.65 mg/dL Low 0.73-1.22 [facility] Comment on above: Order Comment: Speci men Type: BLOOD SPECIMENOrdering Facility: [facility] Address: [address] [place] [address] Performed By: #### 1 9123-9, 96580-3 ####[facility] [id number] [place] [address] [place] eGFRcr SerPlBld CKD-EPI 2020 95 mL/min/1.73m??? Normal >=60 [facility] Comment on above: Order Comment: Speci men Type: BLOOD SPECIMENOrdering Facility: [facility] Address: [address] [place] [address] Result Comment: Lilly mated Glomerular Filtration Rate (eGFR) is calculated using the 2020 CKD-EPI creatinine equation. This equation utilizes serum creatinine, sex, and age as parameters. The creatinine assay has traceable calibration to isotope dilution-mass spectrometry. Refer to KDIGO guidelines for clinical interpretation. In patients with unstable renal function, e.g. those with acute kidney injury, the eGFR may not accurately reflect actual GFR. Performed By: #### 1 9123-9, 48425-2 ####[facility] [id number] [place] [address] [place] Glucose [Mass/Vol] 215 mg/dL High 74-99 [facility] Comment on above: Order Comment: Speci men Type: BLOOD SPECIMENOrdering Facility: [facility] Address: [address] [place] [address] Result Comment: The [place] [employer] (ADA) provides guidance for cutoff values for fasting glucose and random glucose. The ADA defines fasting as no caloric intake for at least 8 hours. Fasting plasma glucose results between 100 to 125 mg/dL indicate increased risk for diabetes (prediabetes).Fasting plasma glucose results greater than or equal to 126 mg/dL meet the criteria for diagnosis of diabetes. In the absence of unequivocal hyperglycemia, results should be confirmed by repeat testing. In a patient with classic symptoms of hyperglycemia or hyperglycemic crisis, random plasma glucose results greater than or equal to 200 mg/dL meet the criteria for diagnosis of diabetes.Reference: Standards of Medical Care in Diabetes 2016, [place] Diabetes Association. Diabetes Care. 2016.39(Suppl 1). Performed By: #### 1 9123-9, 59784-2 ####[facility] SHERRIMARIONNCA [id number] [place] [address] [place] Potassium [Moles/Vol] 4.2 mmol/L Normal 3.7-5.1 [facility] Comment on above: Order Comment: Speci men Type: BLOOD SPECIMENOrdering Facility: [facility] Address: [address] [place] [address] Performed By: #### 1 9123-9, 02607-7 ####[facility] [id number] [place] [address] [place] Protein [Mass/Vol] 6.4 g/dL Normal 6.3-8.0 [facility] Comment on above: Order Comment: Speci men Type: BLOOD SPECIMENOrdering Facility: [facility] Address: [address] [place] [address] Performed By: #### 1 9123-9, 33641-3 ####[facility] [id number] [place] [address] [place] Sodium [Moles/Vol] 133 mmol/L Low 136-144 [facility] Comment on above: Order Comment: Speci men Type: BLOOD SPECIMENOrdering Facility: [facility] Address: [address] [place] [address] Performed By: #### 1 9123-9, 46488-0 ####[facility] [id number] [place] [address] [place] Urea nitrogen [Mass/Vol] 15 mg/dL Normal 9-24 [facility] Comment on above: Order Comment: Speci men Type: BLOOD SPECIMENOrdering Facility: [facility] Address: [address] [place] [address] Performed By: #### 1 9123-9, 15588-5 ####[facility] [id number] [place] [address] [place] HbA1c (Bld)on 08-11-2025 Average glucose Estimated from glycated hemoglobin (Bld) [Mass/Vol] 169 mg/dL Normal [facility] Comment on above: Order Comment: Speci men Type: BLOOD SPECIMENOrdering Facility: [facility] Address: [address] [place] [address] Result Comment: eAG: (Estimated average glucose) is a calculated value from HgbA1c and is loss control representative of the average blood glucose level in the last 2-3 month period. Performed By: #### 5 5454-3 ####[facility] [id number] [place] [address] [place] HbA1c (Bld) [Mass fraction] 7.5 % High 4.3-5.6 [facility] Comment on above: Order Comment: Speci men Type: BLOOD SPECIMENOrdering Facility: [facility] Address: [address] [place] [address] Result Comment: [place] Diabetes Association guidelines indicate that patients with HgbA1c in the range 5.7-6.4% are at increased risk for development of diabetes, and intervention by lifestyle modification may be beneficial. HgbA1c greater or equal to 6.5% is considered diagnostic of diabetes. Performed By: #### 5 5454-3 ####[facility]CL[facility] [id number] [address] [address] [place] LIPID PANEL, NONFASTINGon Cholesterol [Mass/Vol] 95 mg/dL Normal <200 [facility] Comment on above: Order Comment: Gilma ojeda Type: BLOOD SPECIMENOrdering Facility: [facility] Address: [address] [place] [address] Result Comment: <200 mg/dL, Desirable 200-239 mg/dL, Borderline high>239 mg/dL, High Performed By: #### L IPNF, 3016-3, 3023-7, 2132-07 ####[facility] [id number] [address] [place] [address] [place] HDL CHOLESTEROL, NF 39 mg/dL Low >39 [facility] Comment on above: Order Comment: Erwinvladimir ojeda Type: BLOOD SPECIMENOrdering Facility: [facility] Address: [address] [place] [address] Result Comment: 40-5 9 mg/dL, Acceptable>59 mg/dL, High: Negative risk factor for coronary heart disease<40 mg/dL, Low: Positive risk factor for coronary heart disease Performed By: #### L IPNF, 3016-3, 3023-7, 2132-07 ####[facility] [id number] [address] [place] [address] [place] LDL CHOLESTEROL CALCULATED, NF 44 mg/dL Normal <100 [facility] Comment on above: Order Comment: Erwini men Type: BLOOD SPECIMENOrdering Facility: [facility] Address: [address] [place] [address] Result Comment: <100 mg/dL, Optimal 100-129 mg/dL, Near optimal/above optimal 130-159 mg/dL, Borderline high 160-189 mg/dL, High>189 mg/dL, Very highSecondary prevention optimal LDL Cholesterol levels are recommended to be <70 mg/dLLDL cholesterol is calculated using the Matos-NIH equation. Performed By: #### L ZEFERINO, 3015-3, 3024-05, 2132-07 ####[facility] [id number] [place] [id number] [place] LDL/HDL RATIO, NF 1.13 mg/dL Normal <2.54 [facility] Comment on above: Order Comment: Speci men Type: BLOOD SPECIMENOrdering Facility: [facility] Address: [address] [place] [address] Result Comment: Refandrew timmonsce:1. National Cholesterol Education Program ATP III Guideline At-A-Glance Quick Desk Reference: National Heart, Lung, and Blood [place]. National Institutes of Health. 2001: NIH Publication No. 01-3305.2. An International Atherosclerosis Society position paper: global recommendations for the management of dyslipidemia: executive summary, Atherosclerosis. 2014: 232(2):410-413. Performed By: #### L ZEFERINO, 3015-3, 3024-05, 2132-07 ####[facility] [id number] [address] [place] NON HDL CHOL, NF 56 mg/dL Normal <130 [facility] Comment on above: Order Comment: Speci men Type: BLOOD SPECIMENOrdering Facility: [facility] Address: [address] [place] [address] Result Comment: <130 mg/dL, Optimal 130-159 mg/dL, Near optimal/above optimal 160-189 mg/dL, Borderline high 190-219 mg/dL, High>219 mg/dL, Very highSecondary prevention optimal non HDL Cholesterol levels are recommended to be <100 mg/dL Performed By: #### L ZEFERINO, 3016-3, 3024-05, 2132-07 ####[facility] [id number] [address] [address] [place] T CHOL/HDL RATIO NF 2.44 mg/dL Normal <5.10 [facility] Comment on above: Order Comment: Speci men Type: BLOOD SPECIMENOrdering Facility: [facility] Address: [address] [place] [address] Performed By: #### L IPNF, 6-3, 3024-05, 2132-07 ####[facility] [id number] [place] [id number] [place] TRIGLYCERIDES, NF 47 mg/dL Normal <150 [facility] Comment on above: Order Comment: Speci men Type: BLOOD SPECIMENOrdering Facility: [facility] Address: [address] [place] [address] Result Comment: <150 mg/dL, Normal 150-199 mg/dL, Borderline high 200-499 mg/dL, High>499 mg/dL, Very high Performed By: #### L IPNF, 6-3, 3024-05, 2132-07 ####[facility] [id number] [place] [address] [place] VLDL CHOLESTEROL, NF 7 mg/dL Normal <30 [facility] Comment on above: Order Comment: Speci men Type: BLOOD SPECIMENOrdering Facility: [facility] Address: [address] [place] [address] Performed By: #### L IPNF, 6-3, 3024-05, 2132-07 ####[facility] [id number] [place] [id number] [place] Magnesium SerPl-mCncon 08-11 Magnesium [Mass/Vol] 1.8 mg/dL Normal 1.7-2.3 [facility] Comment on above: Order Comment: Speci men Type: BLOOD SPECIMENOrdering Facility: [facility] Address: [address] [place], [place] [address] Performed By: #### 1 9123-9, 06924-3 ####[facility] [id number] [place] [address] [place] T4 Free SerPl-mCncon 025 Free T4 [Mass/Vol] 1.0 ng/dL Normal 0.9-1.7 [facility] Comment on above: Order Comment: Speci men Type: BLOOD SPECIMENOrdering Facility: [facility] Address: [address] [place] [address] Performed By: #### L IPNF, 3016-3, 3024-7, 2132-07 ####[facility] [id number] [place] [id number] [place] TSH SerPl-aCncon 08-11-2025 TSH Qn 5.430 m[IU]/L High 0.270-4.200 [facility] Comment on above: Order Comment: Speci men Type: BLOOD SPECIMENOrdering Facility: [facility] Address: [address] [place] [address] Performed By: #### L IPNF, 3016-3, 3024-7, 2132-07 ####[facility] LABIA [id number] [place] [id number] [place] Type AND Screenon 08-11-2025 Ab SCREEN GEL Negative Normal [facility] Comment on above: Order Comment: PRETR ANSFUSION HGB = 7.5 HCT = PERFORMED AT CCFWN1 0830NYA Performed By: #### B RC, BTS #### [facility] [address] [facility] [place], [address] Vit B12 SerPl-mCncon 025 Cobalamin (Vitamin B12) [Mass/Vol] 591 pg/mL Normal 232-1245 [facility] Comment on above: Order Comment: Speci men Type: BLOOD SPECIMENOrdering Facility: [facility] Address: [address] [place] [address] Performed By: #### L IPNF, 3016-3, 3024-7, 2132-9 ####[facility] [id number] [place] [address] [place] BRCon 07-28-2025 RC Normal [facility] Comment on above: Result Comment: [id number] BP RC TRANSFUSED 07/29/25 1056 [id number] BP RC TRANSFUSED 07/29/25 0839 Performed By: #### B [facility] #### [facility] [address] [place], [place], [address] Bacteria Ur Culton 5 Bacteria identified Cx Nom (U) CULTURE, URINE: No growth (<1,000 CFU/ml) Normal [facility] Comment on above: Performed By: #### 6 30-4 ####[facility] [id number] [place] [id number] [place] CBC W Auto Differential pane l (Bld)on 07-28-2025 Basophils (Bld) [#/Vol] 10*3/uL Normal <0.11 [facility] Comment on above: Order Comment: Speci men Type: BLOOD SPECIMENOrdering Facility: [facility] Address: [address] [place] [address] Performed By: #### 5 7021-8 ####[facility] [id number] [place] [address] [place] Basophils/100 WBC (Bld) 0.5 % Normal [facility] Comment on above: Order Comment: Speci men Type: BLOOD SPECIMENOrdering Facility: [facility] Address: [address] [place] [address] Performed By: #### 5 7021-8 ####[facility] [id number] [place] [address] [place] Differential cell count method Nom (Bld) Auto Normal [facility] Comment on above: Order Comment: Speci men Type: BLOOD SPECIMENOrdering Facility: [facility] Address: [address] [place] [address] Performed By: #### 5 7021-8 ####[facility] [id number] [place] [address] [place] Eosinophils (Bld) [#/Vol] 0.06 10*3/uL Normal <0.46 [facility] Comment on above: Order Comment: Speci men Type: BLOOD SPECIMENOrdering Facility: [facility] Address: [address] [place] [address] Performed By: #### 5 7021-8 ####[facility] [id number] [place] [address] [place] Eosinophils/100 WBC (Bld) 1.4 % Normal [facility] Comment on above: Order Comment: Speci men Type: BLOOD SPECIMENOrdering Facility: [facility] Address: [address] [place] [address] Performed By: #### 5 7021-8 ####[facility] [id number] [place] [address] [place] Erythrocyte distribution width (RBC) [Ratio] 18.2 % High 11.5-15.0 [facility] Comment on above: Order Comment: Speci men Type: BLOOD SPECIMENOrdering Facility: [facility] Address: [address] [place] [address] Performed By: #### 5 7021-8 ####[facility] [id number] [place] [address] [place] Hematocrit (Bld) [Volume fraction] 22.4 % Low 39.0-51.0 [facility] Comment on above: Order Comment: Speci men Type: BLOOD SPECIMENOrdering Facility: [facility] Address: [address] [place] [address] Performed By: #### 5 7021-8 ####[facility] SHERRIVidhyaNCSAURABH [id number] [place] [address] [place] Hemoglobin (Bld) [Mass/Vol] 7.6 g/dL Low 13.0-17.0 [facility] Comment on above: Order Comment: Speci men Type: BLOOD SPECIMENOrdering Facility: [facility] Address: [address] [place] [address] Performed By: #### 5 7021-8 ####[facility] SPRINGSNCDarrick [id number] [place] [address] [place] Immature granulocytes (Bld) [#/Vol] 0.03 10*3/uL Normal <0.10 [facility] Comment on above: Order Comment: Speci men Type: BLOOD SPECIMENOrdering Facility: [facility] Address: [address] [place] [address] Performed By: #### 5 7021-8 ####[facility] SPRINGSNCLIA [id number] [place] [address] [place] Immature granulocytes/100 WBC (Bld) 0.7 % Normal [facility] Comment on above: Order Comment: Speci men Type: BLOOD SPECIMENOrdering Facility: [facility] Address: [address] [place], [place] [address] Performed By: #### 5 7021-8 ####[facility] SPRINGSNCLIA [id number] [place] [address] [place] Lymphocytes (Bld) [#/Vol] 0.68 10*3/uL Low 1.00-4.00 [facility] Comment on above: Order Comment: Speci men Type: BLOOD SPECIMENOrdering Facility: [facility] Address: [address] [place] [address] Performed By: #### 5 7021-8 ####[facility] SPRINGSROCKYLIA [id number] [place] [address] [place] Lymphocytes/100 WBC (Bld) 15.7 % Normal [facility] Comment on above: Order Comment: Speci men Type: BLOOD SPECIMENOrdering Facility: [facility] Address: [address] [place] [address] Performed By: #### 5 7021-8 ####[facility]PITALLESLY [id number] [place] [address] [place] MCH (RBC) [Entitic mass] 29.7 pg Normal 26.0-34.0 [facility] Comment on above: Order Comment: Speci men Type: BLOOD SPECIMENOrdering Facility: [facility] Address: [address] [place] [address] Performed By: #### 5 7021-8 ####[facility] [id number] [place] [address] [place] MCHC (RBC) [Mass/Vol] 33.9 g/dL Normal 30.5-36.0 [facility] Comment on above: Order Comment: Speci men Type: BLOOD SPECIMENOrdering Facility: [facility] Address: [address] [place] [address] Performed By: #### 5 7021-8 ####[facility]IT[facility] [id number] [place] [address] [place] MCV (RBC) [Entitic vol] 87.5 fL Normal 80.0-100.0 [facility] Comment on above: Order Comment: Speci men Type: BLOOD SPECIMENOrdering Facility: [facility] Address: [address] [place] [address] Performed By: #### 5 7021-8 ####[facility] [id number] [place] [address] [place] Monocytes (Bld) [#/Vol] 0.25 10*3/uL Normal <0.87 [facility] Comment on above: Order Comment: Speci men Type: BLOOD SPECIMENOrdering Facility: [facility] Address: [address] [place] [address] Performed By: #### 5 7021-8 ####[facility] SPRINGSWGALIA [id number] [place] [address] [place] Monocytes/100 WBC (Bld) 5.8 % Normal [facility] Comment on above: Order Comment: Speci men Type: BLOOD SPECIMENOrdering Facility: [facility] Address: [address] [place] [address] Performed By: #### 5 7021-8 ####[facility]INGSNCLIA [id number] [place] [address] [place] Neutrophils (Bld) [#/Vol] 3.28 10*3/uL Normal 1.45-7.50 [facility] Comment on above: Order Comment: Speci men Type: BLOOD SPECIMENOrdering Facility: [facility] Address: [address] [place] [address] Performed By: #### 5 7021-8 ####[facility] [id number] [place] [address] [place] Neutrophils/100 WBC (Bld) 75.9 % Normal [facility] Comment on above: Order Comment: Speci men Type: BLOOD SPECIMENOrdering Facility: [facility] Address: [address] [place] [address] Performed By: #### 5 7021-8 ####[facility]INGSNCL[facility] [id number] [place] [address] [place] Nucleated RBC (Bld) [#/Vol] 10*3/uL Normal <0.01 [facility] Comment on above: Order Comment: Speci men Type: BLOOD SPECIMENOrdering Facility: [facility] Address: [address] [place] [address] Performed By: #### 5 7021-8 ####[facility] BECKYNCSAURABH [id number] [place] [address] [place] Nucleated RBC/100 WBC (Bld) [Ratio] 0.0 /100 WBC Normal [facility] Comment on above: Order Comment: Speci men Type: BLOOD SPECIMENOrdering Facility: [facility] Address: [address] [place] [address] Performed By: #### 5 7021-8 ####[facility] SHERRIMARIONNCSAURABH [id number] [place] [address] [place] Platelet mean volume (Bld) [Entitic vol] 11.2 fL Normal 9.0-12.7 [facility] Comment on above: Order Comment: Speci men Type: BLOOD SPECIMENOrdering Facility: [facility] Address: [address] [place] [address] Performed By: #### 5 7021-8 ####[facility] SPRINGSNCLESLYA [id number] [place] [address] [place] Platelets (Bld) [#/Vol] 173 10*3/uL Normal 150-400 [facility] Comment on above: Order Comment: Speci men Type: BLOOD SPECIMENOrdering Facility: [facility] Address: [address] [place] [address] Performed By: #### 5 7021-8 ####[facility] SPRINGSNCLIA [id number] [place] [address] [place] RBC (Bld) [#/Vol] 2.56 10*6/uL Low 4.20-6.00 [facility] Comment on above: Order Comment: Speci men Type: BLOOD SPECIMENOrdering Facility: [facility] Address: [address] [place], [place] [address] Performed By: #### 5 7021-8 ####[facility]RUSLAN POLANCOMARIONNCLIA [id number] [place] [address] [place] WBC (Bld) [#/Vol] 4.32 10*3/uL Normal 3.70-11.00 [facility] Comment on above: Order Comment: Speci men Type: BLOOD SPECIMENOrdering Facility: [facility] Address: [address] [place] [address] Performed By: #### 5 7021-8 ####[facility] SPRINGSNCLIA [id number] [place] [address] [place] CNOVon 07-28-2025 CNOV Normal [facility] CNPNon 07-28-2025 CNPN Normal [facility] Type AND Screenon 07-28-2025 ABO and Rh group Nom (Bld) Blood group B Rh(D) positive [facility] Comment on above: Order Comment: N 01/28/2025 @0800 N Y A Performed By: #### Benito MENDES [facility] #### [facility] [address] [place], [place], [address] Ab SCREEN GEL Negative Normal [facility] Comment on above: Order Comment: N 01/28/2025 @0800 N Y A Performed By: #### Benito MENDES [facility] #### [facility] [address] [place], [place], [address] XR ABDOMEN 1V SUPINEon 07-28 XR ABDOMEN 1V SUPINE Normal [facility] BRCon 07-14-2025 RC Normal [facility] Comment on above: Result Comment: [id number] OP RC TRANSFUSED 07/15/25 0901 [id number] BP RC TRANSFUSED 07/15/25 1100 Performed By: #### Benito MENDES #### [facility] [address] [place], [address] CBC W Auto Differential pane l (Bld)on 07-14-2025 Basophils (Bld) [#/Vol] 10*3/uL Normal <0.11 C [facility] Comment on above: Order Comment: Speci men Type: BLOOD SPECIMENOrdering Facility: [facility] Address: [address] [place] [address] Performed By: #### 5 7021-8 ####[facility]ITALL[facility] [id number] [place] [address] [place] Basophils/100 WBC (Bld) 0.2 % Normal [facility] Comment on above: Order Comment: Speci men Type: BLOOD SPECIMENOrdering Facility: [facility] Address: [address] [place] [address] Performed By: #### 5 7021-8 ####[facility] [id number] [place] [address] [place] Differential cell count method Nom (Bld) Auto Normal [facility] Comment on above: Order Comment: Speci men Type: BLOOD SPECIMENOrdering Facility: [facility] Address: [address] [place] [address] Performed By: #### 5 7021-8 ####[facility] [id number] [place] [address] [place] Eosinophils (Bld) [#/Vol] 0.06 10*3/uL Normal <0.46 [facility] Comment on above: Order Comment: Speci men Type: BLOOD SPECIMENOrdering Facility: [facility] Address: [address] [place] [address] Performed By: #### 5 7021-8 ####[facility] [id number] [place] [address] [place] Eosinophils/100 WBC (Bld) 1.3 % Normal [facility] Comment on above: Order Comment: Speci men Type: BLOOD SPECIMENOrdering Facility: [facility] Address: [address] [place] [address] Performed By: #### 5 7021-8 ####[facility] SHERRILIANNE [id number] [place] [address] [place] Erythrocyte distribution width (RBC) [Ratio] 16.6 % High 11.5-15.0 [facility] Comment on above: Order Comment: Speci men Type: BLOOD SPECIMENOrdering Facility: [facility] Address: [address] [place] [address] Performed By: #### 5 7021-8 ####[facility] SPRINGSNCSAURABH [id number] [place] [address] [place] Hematocrit (Bld) [Volume fraction] 21.8 % Low 39.0-51.0 [facility] Comment on above: Order Comment: Speci men Type: BLOOD SPECIMENOrdering Facility: [facility] Address: [address] [place] [address] Performed By: #### 5 7021-8 ####[facility]OSPITALLESLYA [id number] [place] [address] [place] Hemoglobin (Bld) [Mass/Vol] 7.4 g/dL Low 13.0-17.0 [facility] Comment on above: Order Comment: Speci men Type: BLOOD SPECIMENOrdering Facility: [facility] Address: [address] [place] [address] Performed By: #### 5 7021-8 ####[facility]ITALLI [id number] [place] [address] [place] Immature granulocytes (Bld) [#/Vol] 0.04 10*3/uL Normal <0.10 [facility] Comment on above: Order Comment: Speci men Type: BLOOD SPECIMENOrdering Facility: [facility] Address: [address] [place] [address] Performed By: #### 5 7021-8 ####[facility]PITALLESLY [id number] [place] [address] [place] Immature granulocytes/100 WBC (Bld) 0.9 % Normal [facility] Comment on above: Order Comment: Speci men Type: BLOOD SPECIMENOrdering Facility: [facility] Address: [address] [place] [address] Performed By: #### 5 7021-8 ####[facility] [id number] [place] [address] [place] Lymphocytes (Bld) [#/Vol] 0.60 10*3/uL Low 1.00-4.00 [facility] Comment on above: Order Comment: Speci men Type: BLOOD SPECIMENOrdering Facility: [facility] Address: [address] [place] [address] Performed By: #### 5 7021-8 ####[facility] [id number] [place] [address] [place] Lymphocytes/100 WBC (Bld) 13.3 % Normal [facility] Comment on above: Order Comment: Speci men Type: BLOOD SPECIMENOrdering Facility: [facility] Address: [address] [place] [address] Performed By: #### 5 7021-8 ####[facility] [id number] [place] [address] [place] MCH (RBC) [Entitic mass] 30.3 pg Normal 26.0-34.0 [facility] Comment on above: Order Comment: Speci men Type: BLOOD SPECIMENOrdering Facility: [facility] Address: [address] [place] [address] Performed By: #### 5 7021-8 ####[facility] [id number] [place] [address] [place] MCHC (RBC) [Mass/Vol] 33.9 g/dL Normal 30.5-36.0 [facility] Comment on above: Order Comment: Speci men Type: BLOOD SPECIMENOrdering Facility: [facility] Address: [address] [place] [address] Performed By: #### 5 7021-8 ####[facility] [id number] [place] [address] [place] MCV (RBC) [Entitic vol] 89.3 fL Normal 80.0-100.0 [facility] Comment on above: Order Comment: Speci men Type: BLOOD SPECIMENOrdering Facility: [facility] Address: [address] [place] [address] Performed By: #### 5 7021-8 ####[facility] [id number] [place] [address] [place] Monocytes (Bld) [#/Vol] 0.25 10*3/uL Normal <0.87 [facility] Comment on above: Order Comment: Speci men Type: BLOOD SPECIMENOrdering Facility: [facility] Address: [address] [place] [address] Performed By: #### 5 7021-8 ####[facility] [id number] [place] [address] [place] Monocytes/100 WBC (Bld) 5.5 % Normal [facility] Comment on above: Order Comment: Speci men Type: BLOOD SPECIMENOrdering Facility: [facility] Address: [address] [place] [address] Performed By: #### 5 7021-8 ####[facility] [id number] [place] [address] [place] Neutrophils (Bld) [#/Vol] 3.55 10*3/uL Normal 1.45-7.50 [facility] Comment on above: Order Comment: Speci men Type: BLOOD SPECIMENOrdering Facility: [facility] Address: [address] [place] [address] Performed By: #### 5 7021-8 ####[facility] SHERRIMARIONLUISITO [id number] [place] [address] [place] Neutrophils/100 WBC (Bld) 78.8 % Normal [facility] Comment on above: Order Comment: Speci men Type: BLOOD SPECIMENOrdering Facility: [facility] Address: [address] [place] [address] Performed By: #### 5 7021-8 ####[facility] [id number] [place] [address] [place] Nucleated RBC (Bld) [#/Vol] 10*3/uL Normal <0.01 [facility] Comment on above: Order Comment: Speci men Type: BLOOD SPECIMENOrdering Facility: [facility] Address: [address] [place] [address] Performed By: #### 5 7021-8 ####[facility] [id number] [place] [address] [place] Nucleated RBC/100 WBC (Bld) [Ratio] 0.0 /100 WBC Normal [facility] Comment on above: Order Comment: Speci men Type: BLOOD SPECIMENOrdering Facility: [facility] Address: [address] [place] [address] Performed By: #### 5 7021-8 ####[facility]PITALLIA [id number] [place] [address] [place] Platelet mean volume (Bld) [Entitic vol] 10.3 fL Normal 9.0-12.7 [facility] Comment on above: Order Comment: Speci men Type: BLOOD SPECIMENOrdering Facility: [facility] Address: [address] [place] [address] Performed By: #### 5 7021-8 ####[facility] SPRINGSNCLIA [id number] [place] [address] [place] Platelets (Bld) [#/Vol] 147 10*3/uL Low 150-400 [facility] Comment on above: Order Comment: Speci men Type: BLOOD SPECIMENOrdering Facility: [facility] Address: [address] [place] [address] Performed By: #### 5 7021-8 ####[facility] [id number] [place] [address] [place] RBC (Bld) [#/Vol] 2.44 10*6/uL Low 4.20-6.00 [facility] Comment on above: Order Comment: Speci men Type: BLOOD SPECIMENOrdering Facility: [facility] Address: [address] [place] [address] Performed By: #### 5 7021-8 ####[facility] [id number] [place] [address] [place] WBC (Bld) [#/Vol] 4.51 10*3/uL Normal 3.70-11.00 [facility] Comment on above: Order Comment: Speci men Type: BLOOD SPECIMENOrdering Facility: [facility] Address: [address] [place] [address] Performed By: #### 5 7021-8 ####[facility] [id number] [place] [address] [place] CNPNon 07-14-2025 CNPN Normal [facility] Type AND Screenon 07-14-2025 Ab SCREEN GEL Negative Normal [facility] Comment on above: Order Comment: A Performed By: #### B TS #### [facility] [address] [facility] [place], [place], [facility] BRCon 06-30-2025 RC Normal [facility] Comment on above: Result Comment: [id number] OP RC TRANSFUSED 07/01/25 1130 [id number] OP RC TRANSFUSED 07/01/25 0925 Performed By: #### B TS #### [facility] [address] [place], [place], [id number] CBC W Auto Differential pane l (Bld)on 06-30-2025 Basophils (Bld) [#/Vol] 10*3/uL Normal <0.11 [facility] Comment on above: Order Comment: Speci men Type: BLOOD SPECIMENOrdering Facility: [facility] Address: [address] [place] [address] Performed By: #### 5 7021-8 ####[facility] [id number] [place] [address] [place] Basophils/100 WBC (Bld) 0.3 % Normal [facility] Comment on above: Order Comment: Speci men Type: BLOOD SPECIMENOrdering Facility: [facility] Address: [address] [place] [address] Performed By: #### 5 7021-8 ####[facility] [id number] [place] [address] [place] Differential cell count method Nom (Bld) Auto Normal [facility] Comment on above: Order Comment: Speci men Type: BLOOD SPECIMENOrdering Facility: [facility] Address: [address] [place] [address] Performed By: #### 5 7021-8 ####[facility] [id number] [place] [address] [place] Eosinophils (Bld) [#/Vol] 0.05 10*3/uL Normal <0.46 [facility] Comment on above: Order Comment: Speci men Type: BLOOD SPECIMENOrdering Facility: [facility] Address: [address] [place] [address] Performed By: #### 5 7021-8 ####[facility] SHERRIJEFEA [id number] [place] [address] [place] Eosinophils/100 WBC (Bld) 1.3 % Normal [facility] Comment on above: Order Comment: Speci men Type: BLOOD SPECIMENOrdering Facility: [facility] Address: [address] [place] [address] Performed By: #### 5 7021-8 ####[facility] SPRINGSLUISITO [id number] [place] [address] [place] Erythrocyte distribution width (RBC) [Ratio] 16.5 % High 11.5-15.0 [facility] Comment on above: Order Comment: Speci men Type: BLOOD SPECIMENOrdering Facility: [facility] Address: [address] [place] [address] Performed By: #### 5 7021-8 ####[facility] SPRINGSROCKYDarrick [id number] [place] [address] [place] Hematocrit (Bld) [Volume fraction] 22.8 % Low 39.0-51.0 [facility] Comment on above: Order Comment: Speci men Type: BLOOD SPECIMENOrdering Facility: [facility] Address: [address] [place] [address] Performed By: #### 5 7021-8 ####[facility] SPRINGSROCKYLIA [id number] [place] [address] [place] Hemoglobin (Bld) [Mass/Vol] 7.6 g/dL Low 13.0-17.0 [facility] Comment on above: Order Comment: Speci men Type: BLOOD SPECIMENOrdering Facility: [facility] Address: [address] [place] [address] Performed By: #### 5 7021-8 ####[facility] SPRINGSNCLIA [id number] [place] [address] [place] Immature granulocytes (Bld) [#/Vol] 10*3/uL Normal <0.10 [facility] Comment on above: Order Comment: Speci men Type: BLOOD SPECIMENOrdering Facility: [facility] Address: [address] [place] [address] Performed By: #### 5 7021-8 ####[facility] H[facility]PITALA [id number] [place] [address] [place] Immature granulocytes/100 WBC (Bld) 0.5 % Normal [facility] Comment on above: Order Comment: Speci men Type: BLOOD SPECIMENOrdering Facility: [facility] Address: [address] [place] [address] Performed By: #### 5 7021-8 ####[facility] [id number] [place] [address] [place] Lymphocytes (Bld) [#/Vol] 0.79 10*3/uL Low 1.00-4.00 [facility] Comment on above: Order Comment: Speci men Type: BLOOD SPECIMENOrdering Facility: [facility] Address: [address] [place] [address] Performed By: #### 5 7021-8 ####[facility] [id number] [place] [address] [place] Lymphocytes/100 WBC (Bld) 19.8 % Normal [facility] Comment on above: Order Comment: Speci men Type: BLOOD SPECIMENOrdering Facility: [facility] Address: [address] [place] [address] Performed By: #### 5 7021-8 ####[facility] [id number] [place] [address] [place] MCH (RBC) [Entitic mass] 29.8 pg Normal 26.0-34.0 [facility] Comment on above: Order Comment: Speci men Type: BLOOD SPECIMENOrdering Facility: [facility] Address: [address] [place] [address] Performed By: #### 5 7021-8 ####[facility] SHERRIMARIONLUISITO [id number] [place] [address] [place] MCHC (RBC) [Mass/Vol] 33.3 g/dL Normal 30.5-36.0 [facility] Comment on above: Order Comment: Speci men Type: BLOOD SPECIMENOrdering Facility: [facility] Address: [address] [place] [address] Performed By: #### 5 7021-8 ####[facility] [id number] [place] [address] [place] MCV (RBC) [Entitic vol] 89.4 fL Normal 80.0-100.0 C [facility] Comment on above: Order Comment: Speci men Type: BLOOD SPECIMENOrdering Facility: [facility] Address: [address] [place] [address] Performed By: #### 5 7021-8 ####[facility] [id number] [place] [address] [place] Monocytes (Bld) [#/Vol] 0.22 10*3/uL Normal <0.87 [facility] Comment on above: Order Comment: Speci men Type: BLOOD SPECIMENOrdering Facility: [facility] Address: [address] [place] [address] Performed By: #### 5 7021-8 ####[facility] [id number] [place] [address] [place] Monocytes/100 WBC (Bld) 5.5 % Normal [facility] Comment on above: Order Comment: Speci men Type: BLOOD SPECIMENOrdering Facility: [facility] Address: [address] [place] [address] Performed By: #### 5 7021-8 ####[facility] SPRINGSGALIA [id number] [place] [address] [place] Neutrophils (Bld) [#/Vol] 2.90 10*3/uL Normal 1.45-7.50 [facility] Comment on above: Order Comment: Speci men Type: BLOOD SPECIMENOrdering Facility: [facility] Address: [address] [place] [address] Performed By: #### 5 7021-8 ####[facility] [id number] [place] [address] [place] Neutrophils/100 WBC (Bld) 72.6 % Normal [facility] Comment on above: Order Comment: Speci men Type: BLOOD SPECIMENOrdering Facility: [facility] Address: [address] [place] [address] Performed By: #### 5 7021-8 ####[facility] [id number] [place] [address] [place] Nucleated RBC (Bld) [#/Vol] 10*3/uL Normal <0.01 [facility] Comment on above: Order Comment: Speci men Type: BLOOD SPECIMENOrdering Facility: [facility] Address: [address] [place] [address] Performed By: #### 5 7021-8 ####[facility] [id number] [place] [address] [place] Nucleated RBC/100 WBC (Bld) [Ratio] 0.0 /100 WBC Normal [facility] Comment on above: Order Comment: Speci men Type: BLOOD SPECIMENOrdering Facility: [facility] Address: [address] [place] [address] Performed By: #### 5 7021-8 ####[facility] SPRINGSNCLIA [id number] [place] [address] [place] Platelet mean volume (Bld) [Entitic vol] 10.7 fL Normal 9.0-12.7 [facility] Comment on above: Order Comment: Speci men Type: BLOOD SPECIMENOrdering Facility: [facility] Address: [address] [place] [address] Performed By: #### 5 7021-8 ####[facility] [id number] [place] [address] [place] Platelets (Bld) [#/Vol] 157 10*3/uL Normal 150-400 [facility] Comment on above: Order Comment: Speci men Type: BLOOD SPECIMENOrdering Facility: [facility] Address: [address] [place] [address] Performed By: #### 5 7021-8 ####[facility] [id number] [place] [address] [place] RBC (Bld) [#/Vol] 2.55 10*6/uL Low 4.20-6.00 [facility] Comment on above: Order Comment: Speci men Type: BLOOD SPECIMENOrdering Facility: [facility] Address: [address] [place] [address] Performed By: #### 5 7021-8 ####[facility] HOSPITALA [id number] [place] [address] [place] WBC (Bld) [#/Vol] 3.99 10*3/uL Normal 3.70-11.00 [facility] Comment on above: Order Comment: Speci men Type: BLOOD SPECIMENOrdering Facility: [facility] Address: [address] [place] [address] Performed By: #### 5 7021-8 ####[facility] SPRINGSNCLIA [id number] [place] [address] [place] CNOVSPon 06-30-2025 CNOVSP Normal [facility] CNPNon 08-21-2025 CNPN Normal [facility] Type AND Screenon 06-30-2025 Ab SCREEN GEL PENDING Normal [facility] Comment on above: Order Comment: A Performed By: #### B TS #### [facility] Laboratory [address] [place], [place], [address] ABO and Rh group Nom (Bld) Blood group B Rh(D) positive Normal [facility] Comment on above: Order Comment: A Performed By: #### B TS #### [facility] [address] [place], [place], [address] BRCon 06-16-2025 RC Normal [facility] Comment on above: Result Comment: [id number] ON RC TRANSFUSED 06/17/25 0826 [id number] BN RC TRANSFUSED 06/17/25 1013 Performed By: #### B TS, BR #### [facility] [address] [place], [place], [address] CBC W Auto Differential pane l (Bld)on 06-16-2025 Basophils (Bld) [#/Vol] 10*3/uL Normal <0.11 [facility] Comment on above: Order Comment: Speci men Type: BLOOD SPECIMENOrdering Facility: [facility] Address: [address] [place] [address] Performed By: #### 5 7021-8 ####[facility] SPRINGSELLIEA [id number] [place] [address] [place] Basophils/100 WBC (Bld) 0.6 % Normal [facility] Comment on above: Order Comment: Speci men Type: BLOOD SPECIMENOrdering Facility: [facility] Address: [address] [place] [address] Performed By: #### 5 7021-8 ####[facility] HOSPITALLIA [id number] [place] [address] [place] Differential cell count method Nom (Bld) Auto Normal [facility] Comment on above: Order Comment: Speci men Type: BLOOD SPECIMENOrdering Facility: [facility] Address: [address] [place] [address] Performed By: #### 5 7021-8 ####[facility] SHERRILIANNE [id number] [place] [address] [place] Eosinophils (Bld) [#/Vol] 0.04 10*3/uL Normal <0.46 [facility] Comment on above: Order Comment: Speci men Type: BLOOD SPECIMENOrdering Facility: [facility] Address: [address] [place] [address] Performed By: #### 5 7021-8 ####[facility]SROCKYPAR[facility] [id number] [place] [address] [place] Eosinophils/100 WBC (Bld) 1.3 % Normal [facility] Comment on above: Order Comment: Speci men Type: BLOOD SPECIMENOrdering Facility: [facility] Address: [address] [place] [address] Performed By: #### 5 7021-8 ####[facility] SPRINGSNCDarrick [id number] [place] [address] [place] Erythrocyte distribution width (RBC) [Ratio] 16.1 % High 11.5-15.0 [facility] Comment on above: Order Comment: Speci men Type: BLOOD SPECIMENOrdering Facility: [facility] Address: [address] [place] [address] Performed By: #### 5 7021-8 ####[facility] SPRINGSNCLIA [id number] [place] [address] [place] Hematocrit (Bld) [Volume fraction] 23.9 % Low 39.0-51.0 [facility] Comment on above: Order Comment: Speci men Type: BLOOD SPECIMENOrdering Facility: [facility] Address: [address] [place] [address] Performed By: #### 5 7021-8 ####[facility] SHERRIJENNILIA [id number] [place] [address] [place] Hemoglobin (Bld) [Mass/Vol] 8.0 g/dL Low 13.0-17.0 [facility] Comment on above: Order Comment: Speci men Type: BLOOD SPECIMENOrdering Facility: [facility] Address: [address] [place] [address] Performed By: #### 5 7021-8 ####[facility] SPRINGSROCKYLIA [id number] [place] [address] [place] Immature granulocytes (Bld) [#/Vol] 10*3/uL Normal <0.10 [facility] Comment on above: Order Comment: Speci men Type: BLOOD SPECIMENOrdering Facility: [facility] Address: [address] [place] [address] Performed By: #### 5 7021-8 ####[facility] [id number] [place] [address] [place] Immature granulocytes/100 WBC (Bld) 0.3 % Normal [facility] Comment on above: Order Comment: Speci men Type: BLOOD SPECIMENOrdering Facility: [facility] Address: [address] [place] [address] Performed By: #### 5 7021-8 ####[facility] SPRINGSELLIEA [id number] [place] [address] [place] Lymphocytes (Bld) [#/Vol] 0.70 10*3/uL Low 1.00-4.00 [facility] Comment on above: Order Comment: Speci men Type: BLOOD SPECIMENOrdering Facility: [facility] Address: [address] [place] [address] Performed By: #### 5 7021-8 ####[facility]SNCP[facility] [id number] [place] [id number] [place] Lymphocytes/100 WBC (Bld) 22.4 % Normal [facility] Comment on above: Order Comment: Speci men Type: BLOOD SPECIMENOrdering Facility: [facility] Address: [address] [place] [address] Performed By: #### 5 7021-8 ####[facility]SN[facility] [id number] [place] [address] [place] MCH (RBC) [Entitic mass] 30.2 pg Normal 26.0-34.0 [facility] Comment on above: Order Comment: Speci men Type: BLOOD SPECIMENOrdering Facility: [facility] Address: [address] [place] [address] Performed By: #### 5 7021-8 ####[facility]SN[facility] [id number] [place] [address] [place] MCHC (RBC) [Mass/Vol] 33.5 g/dL Normal 30.5-36.0 [facility] Comment on above: Order Comment: Speci men Type: BLOOD SPECIMENOrdering Facility: [facility] Address: [address] [place] [address] Performed By: #### 5 7021-8 ####[facility] SPRINGSNCLIA [id number] [place] [address] [place] MCV (RBC) [Entitic vol] 90.2 fL Normal 80.0-100.0 [facility] Comment on above: Order Comment: Speci men Type: BLOOD SPECIMENOrdering Facility: [facility] Address: [address] [place] [address] Performed By: #### 5 7021-8 ####[facility] SPRINGSNCLI [id number] [place] [address] [place] Monocytes (Bld) [#/Vol] 0.17 10*3/uL Normal <0.87 [facility] Comment on above: Order Comment: Speci men Type: BLOOD SPECIMENOrdering Facility: [facility] Address: [address] [place] [address] Performed By: #### 5 7021-8 ####[facility] [id number] [place] [address] [place] Monocytes/100 WBC (Bld) 5.4 % Normal [facility] Comment on above: Order Comment: Speci men Type: BLOOD SPECIMENOrdering Facility: [facility] Address: [address] [place] [address] Performed By: #### 5 7021-8 ####[facility] [id number] [place] [address] [place] Neutrophils (Bld) [#/Vol] 2.19 10*3/uL Normal 1.45-7.50 [facility] Center Comment on above: Order Comment: Speci men Type: BLOOD SPECIMENOrdering Facility: [facility] Address: [address] [place] [address] Performed By: #### 5 7021-8 ####[facility] [id number] [place] [address] [place] Neutrophils/100 WBC (Bld) 70.0 % Normal [facility] Comment on above: Order Comment: Speci men Type: BLOOD SPECIMENOrdering Facility: [facility] Address: [address] [place] [address] Performed By: #### 5 7021-8 ####[facility] [id number] [place] [address] [place] Nucleated RBC (Bld) [#/Vol] 10*3/uL Normal <0.01 [facility] Comment on above: Order Comment: Speci men Type: BLOOD SPECIMENOrdering Facility: [facility] Address: [address] [place] [address] Performed By: #### 5 7021-8 ####[facility] SHERRIJENNILIA [id number] [place] [address] [place] Nucleated RBC/100 WBC (Bld) [Ratio] 0.0 /100 WBC Normal [facility] Comment on above: Order Comment: Speci men Type: BLOOD SPECIMENOrdering Facility: [facility] Address: [address] [place] [address] Performed By: #### 5 7021-8 ####[facility] [id number] [place] [address] [place] Platelet mean volume (Bld) [Entitic vol] 9.9 fL Normal 9.0-12.7 [facility] Comment on above: Order Comment: Speci men Type: BLOOD SPECIMENOrdering Facility: [facility] Address: [address] [place] [address] Performed By: #### 5 7021-8 ####[facility] [id number] [place] [address] [place] Platelets (Bld) [#/Vol] 162 10*3/uL Normal 150-400 [facility] Comment on above: Order Comment: Speci men Type: BLOOD SPECIMENOrdering Facility: [facility] Address: [address] [place] [address] Performed By: #### 5 7021-8 ####[facility] [id number] [place] [address] [place] RBC (Bld) [#/Vol] 2.65 10*6/uL Low 4.20-6.00 [facility] Comment on above: Order Comment: Speci men Type: BLOOD SPECIMENOrdering Facility: [facility] Address: [address] [place] [address] Performed By: #### 5 7021-8 ####[facility]SNCL[facility] [id number] [place] [address] [place] WBC (Bld) [#/Vol] 3.13 10*3/uL Low 3.70-11.00 [facility] Comment on above: Order Comment: Speci men Type: BLOOD SPECIMENOrdering Facility: [facility] Address: [address] [place] [address] Performed By: #### 5 7021-8 ####[facility] [id number] [place] [address] [place] CNPNon 06-16-2025 CNPN Normal [facility] Type AND Screenon 06-16-2025 Ab SCREEN GEL Negative Normal [facility] Comment on above: Order Comment: PRETR ANSFUSION HGB = 8.0 HCT = 23.9 PERFORMED AT [facility] N 06/17/25 AT 0800 N Y A Performed By: #### B , [facility] #### [facility] [address] [place], [address] BRCon 06-02-2025 RC Normal [facility] Comment on above: Result Comment: [id number] BP RC TRANSFUSED 06/03/25 1118 [id number] OP RC TRANSFUSED 06/03/25 0912 Performed By: #### B TS #### [facility] [address] [place], [address] CBC W Auto Differential pane l (Bld)on 06-02-2025 Basophils (Bld) [#/Vol] 10*3/uL Normal <0.11 [facility] Comment on above: Order Comment: Speci men Type: BLOOD SPECIMENOrdering Facility: [facility] Address: [address] [place] [address] Performed By: #### 5 7021-8 ####[facility] [id number] [place] [address] [place] Basophils/100 WBC (Bld) 0.5 % Normal [facility] Comment on above: Order Comment: Speci men Type: BLOOD SPECIMENOrdering Facility: [facility] Address: [address] [place] [address] Performed By: #### 5 7021-8 ####[facility] SPRINGSLUISITO [id number] [place] [address] [place] Differential cell count method Nom (Bld) Auto Normal [facility] Comment on above: Order Comment: Speci men Type: BLOOD SPECIMENOrdering Facility: [facility] Address: [address] [place] [address] Performed By: #### 5 7021-8 ####[facility] [id number] [place] [address] [place] Eosinophils (Bld) [#/Vol] 0.04 10*3/uL Normal <0.46 [facility] Comment on above: Order Comment: Speci men Type: BLOOD SPECIMENOrdering Facility: [facility] Address: [address] [place] [address] Performed By: #### 5 7021-8 ####[facility] [id number] [place] [address] [place] Eosinophils/100 WBC (Bld) 1.0 % Normal [facility] Comment on above: Order Comment: Speci men Type: BLOOD SPECIMENOrdering Facility: [facility] Address: [address] [place] [address] Performed By: #### 5 7021-8 ####[facility] [id number] [place] [address] [place] Erythrocyte distribution width (RBC) [Ratio] 16.8 % High 11.5-15.0 [facility] Comment on above: Order Comment: Speci men Type: BLOOD SPECIMENOrdering Facility: [facility] Address: [address] [place] [address] Performed By: #### 5 7021-8 ####[facility] [id number] [place] [address] [place] Hematocrit (Bld) [Volume fraction] 22.9 % Low 39.0-51.0 [facility] Comment on above: Order Comment: Speci men Type: BLOOD SPECIMENOrdering Facility: [facility] Address: [address] [place] [address] Performed By: #### 5 7021-8 ####[facility] [id number] [place] [address] [place] Hemoglobin (Bld) [Mass/Vol] 7.8 g/dL Low 13.0-17.0 [facility] Comment on above: Order Comment: Speci men Type: BLOOD SPECIMENOrdering Facility: [facility] Address: [address] [place] [address] Performed By: #### 5 7021-8 ####[facility] [id number] [place] [address] [place] Immature granulocytes (Bld) [#/Vol] 10*3/uL Normal <0.10 [facility] Comment on above: Order Comment: Speci men Type: BLOOD SPECIMENOrdering Facility: [facility] Address: [address] [place] [address] Performed By: #### 5 7021-8 ####[facility] [id number] [place] [address] [place] Immature granulocytes/100 WBC (Bld) 0.3 % Normal [facility] Comment on above: Order Comment: Speci men Type: BLOOD SPECIMENOrdering Facility: [facility] Address: [address] [place] [address] Performed By: #### 5 7021-8 ####[facility] [id number] [place] [address] [place] Lymphocytes (Bld) [#/Vol] 0.83 10*3/uL Low 1.00-4.00 [facility] Comment on above: Order Comment: Speci men Type: BLOOD SPECIMENOrdering Facility: [facility] Address: [address] [place] [address] Performed By: #### 5 7021-8 ####[facility] SPRINGSNCA [id number] [place] [address] [place] Lymphocytes/100 WBC (Bld) 21.8 % Normal [facility] Comment on above: Order Comment: Speci men Type: BLOOD SPECIMENOrdering Facility: [facility] Address: [address] [place] [address] Performed By: #### 5 7021-8 ####[facility] SPRINGSNCLI [id number] [place] [address] [place] MCH (RBC) [Entitic mass] 30.7 pg Normal 26.0-34.0 [facility] Comment on above: Order Comment: Speci men Type: BLOOD SPECIMENOrdering Facility: [facility] Address: [address] [place] [address] Performed By: #### 5 7021-8 ####[facility] [id number] [place] [address] [place] MCHC (RBC) [Mass/Vol] 34.1 g/dL Normal 30.5-36.0 [facility] Comment on above: Order Comment: Speci men Type: BLOOD SPECIMENOrdering Facility: [facility] Address: [address] [place] [address] Performed By: #### 5 7021-8 ####[facility]SNCL[facility] [id number] [place] [address] [place] MCV (RBC) [Entitic vol] 90.2 fL Normal 80.0-100.0 C [facility] Comment on above: Order Comment: Speci men Type: BLOOD SPECIMENOrdering Facility: [facility] Address: [address] [place] [address] Performed By: #### 5 7021-8 ####[facility] SHERRIMARIONELLIEA [id number] [place] [address] [place] Monocytes (Bld) [#/Vol] 0.21 10*3/uL Normal <0.87 [facility] Comment on above: Order Comment: Speci men Type: BLOOD SPECIMENOrdering Facility: [facility] Address: [address] [place] [address] Performed By: #### 5 7021-8 ####[facility] [id number] [place] [address] [place] Monocytes/100 WBC (Bld) 5.5 % Normal [facility] Comment on above: Order Comment: Speci men Type: BLOOD SPECIMENOrdering Facility: [facility] Address: [address] [place] [address] Performed By: #### 5 7021-8 ####[facility] [id number] [place] [address] [place] Neutrophils (Bld) [#/Vol] 2.70 10*3/uL Normal 1.45-7.50 [facility] Comment on above: Order Comment: Speci men Type: BLOOD SPECIMENOrdering Facility: [facility] Address: [address] [place] [address] Performed By: #### 5 7021-8 ####[facility] [id number] [place] [address] [place] Neutrophils/100 WBC (Bld) 70.9 % Normal [facility] Comment on above: Order Comment: Speci men Type: BLOOD SPECIMENOrdering Facility: [facility] Address: [address] [place] [address] Performed By: #### 5 7021-8 ####[facility] [id number] [place] [address] [place] Nucleated RBC (Bld) [#/Vol] 0.02 10*3/uL High <0.01 [facility] Comment on above: Order Comment: Speci men Type: BLOOD SPECIMENOrdering Facility: [facility] Address: [address] [place] [address] Performed By: #### 5 7021-8 ####[facility] [id number] [place] [address] [place] Nucleated RBC/100 WBC (Bld) [Ratio] 0.5 /100 WBC Normal [facility] Comment on above: Order Comment: Speci men Type: BLOOD SPECIMENOrdering Facility: [facility] Address: [address] [place] [address] Performed By: #### 5 7021-8 ####[facility] [id number] [place] [address] [place] Platelet mean volume (Bld) [Entitic vol] 11.1 fL Normal 9.0-12.7 [facility] Comment on above: Order Comment: Speci men Type: BLOOD SPECIMENOrdering Facility: [facility] Address: [address] [place] [address] Performed By: #### 5 7021-8 ####[facility] [id number] [place] [address] [place] Platelets (Bld) [#/Vol] 161 10*3/uL Normal 150-400 [facility] Comment on above: Order Comment: Speci men Type: BLOOD SPECIMENOrdering Facility: [facility] Address: [address] [place] [address] Performed By: #### 5 7021-8 ####[facility] [id number] [place] [address] [place] RBC (Bld) [#/Vol] 2.54 10*6/uL Low 4.20-6.00 [facility] Comment on above: Order Comment: Speci men Type: BLOOD SPECIMENOrdering Facility: [facility] Address: [address] [place] [address] Performed By: #### 5 7021-8 ####[facility] [id number] [place] [address] [place] WBC (Bld) [#/Vol] 3.81 10*3/uL Normal 3.70-11.00 [facility] Comment on above: Order Comment: Speci men Type: BLOOD SPECIMENOrdering Facility: [facility] Address: [address] [place] [address] Performed By: #### 5 7021-8 ####[facility] [id number] [place] [address] [place] CNPNon 06-02-2025 CNPN Normal [facility] Type AND Screenon 06-02-2025 Ab SCREEN GEL Negative Normal [facility] Comment on above: Order Comment: A Performed By: #### B TS #### [facility] [address] [facility] [place], [place], [address] BRCon 05-19-2025 RC Normal [facility] Comment on above: Result Comment: [id number] OP RC TRANSFUSED 05/20/25 1145 [id number] BP RC TRANSFUSED 05/20/25 0853 Performed By: #### B RC, BTS #### [facility] [address] [facility] [place], [place], [address] CBC W Auto Differential pane l (Bld)on 05-19-2025 Basophils (Bld) [#/Vol] 10*3/uL Normal <0.11 C [facility] Comment on above: Order Comment: Speci men Type: BLOOD SPECIMENOrdering Facility: [facility] Address: [address] [place] [address] Performed By: #### 5 7021-8 ####[facility] MILLWNCLIA [id number] [place] [address] [place] Basophils/100 WBC (Bld) 0.3 % Normal C [facility] Comment on above: Order Comment: Speci men Type: BLOOD SPECIMENOrdering Facility: [facility] Address: [address] [place] [address] Performed By: #### 5 7021-8 ####[facility] [id number] [place] [address] [place] Differential cell count method Nom (Bld) Auto Normal [facility] Comment on above: Order Comment: Speci men Type: BLOOD SPECIMENOrdering Facility: [facility] Address: [address] [place] [address] Performed By: #### 5 7021-8 ####[facility] [id number] [place] [address] [place] Eosinophils (Bld) [#/Vol] 0.04 10*3/uL Normal <0.46 [facility] Comment on above: Order Comment: Speci men Type: BLOOD SPECIMENOrdering Facility: [facility] Address: [address] [place] [address] Performed By: #### 5 7021-8 ####[facility] [id number] [place] [address] [place] Eosinophils/100 WBC (Bld) 1.1 % Normal [facility] Comment on above: Order Comment: Speci men Type: BLOOD SPECIMENOrdering Facility: [facility] Address: [address] [place] [address] Performed By: #### 5 7021-8 ####[facility] [id number] [place] [address] [place] Erythrocyte distribution width (RBC) [Ratio] 17.0 % High 11.5-15.0 [facility] Comment on above: Order Comment: Speci men Type: BLOOD SPECIMENOrdering Facility: [facility] Address: [address] [place] [address] Performed By: #### 5 7021-8 ####[facility] [id number] [place] [address] [place] Hematocrit (Bld) [Volume fraction] 22.2 % Low 39.0-51.0 [facility] Comment on above: Order Comment: Speci men Type: BLOOD SPECIMENOrdering Facility: [facility] Address: [address] [place] [address] Performed By: #### 5 7021-8 ####[facility] [id number] [place] [address] [place] Hemoglobin (Bld) [Mass/Vol] 7.4 g/dL Low 13.0-17.0 [facility] Comment on above: Order Comment: Speci men Type: BLOOD SPECIMENOrdering Facility: [facility] Address: [address] [place] [address] Performed By: #### 5 7021-8 ####[facility] [id number] [place] [address] [place] Immature granulocytes (Bld) [#/Vol] 10*3/uL Normal <0.10 [facility] Comment on above: Order Comment: Speci men Type: BLOOD SPECIMENOrdering Facility: [facility] Address: [address] [place] [address] Performed By: #### 5 7021-8 ####[facility]SNCLI [id number] [place] [address] [place] Immature granulocytes/100 WBC (Bld) 0.6 % Normal [facility] Comment on above: Order Comment: Speci men Type: BLOOD SPECIMENOrdering Facility: [facility] Address: [address] [place] [address] Performed By: #### 5 7021-8 ####[facility] SHERRILIANNE [id number] [place] [address] [place] Lymphocytes (Bld) [#/Vol] 0.71 10*3/uL Low 1.00-4.00 [facility] Comment on above: Order Comment: Speci men Type: BLOOD SPECIMENOrdering Facility: [facility] Address: [address] [place] [address] Performed By: #### 5 7021-8 ####[facility] [id number] [place] [address] [place] Lymphocytes/100 WBC (Bld) 19.9 % Normal [facility] Comment on above: Order Comment: Speci men Type: BLOOD SPECIMENOrdering Facility: [facility] Address: [address] [place] [address] Performed By: #### 5 7021-8 ####[facility] HOSPITALDarrick [id number] [place] [address] [place] MCH (RBC) [Entitic mass] 29.2 pg Normal 26.0-34.0 [facility] Comment on above: Order Comment: Speci men Type: BLOOD SPECIMENOrdering Facility: [facility] Address: [address] [place] [address] Performed By: #### 5 7021-8 ####[facility]SNCL[facility] [id number] [place] [address] [place] MCHC (RBC) [Mass/Vol] 33.3 g/dL Normal 30.5-36.0 [facility] Comment on above: Order Comment: Speci men Type: BLOOD SPECIMENOrdering Facility: [facility] Address: [address] [place] [address] Performed By: #### 5 7021-8 ####[facility] MILLWNCLIA [id number] [place] [address] [place] MCV (RBC) [Entitic vol] 87.7 fL Normal 80.0-100.0 C [facility] Comment on above: Order Comment: Speci men Type: BLOOD SPECIMENOrdering Facility: [facility] Address: [address] [place] [address] Performed By: #### 5 7021-8 ####[facility] [id number] [place] [address] [place] Monocytes (Bld) [#/Vol] 0.18 10*3/uL Normal <0.87 [facility] Comment on above: Order Comment: Speci men Type: BLOOD SPECIMENOrdering Facility: [facility] Address: [address] [place] [address] Performed By: #### 5 7021-8 ####[facility] [id number] [place] [address] [place] Monocytes/100 WBC (Bld) 5.1 % Normal C [facility] Comment on above: Order Comment: Speci men Type: BLOOD SPECIMENOrdering Facility: [facility] Address: [address] [place] [address] Performed By: #### 5 7021-8 ####[facility] [id number] [place] [address] [place] Neutrophils (Bld) [#/Vol] 2.60 10*3/uL Normal 1.45-7.50 [facility] Comment on above: Order Comment: Speci men Type: BLOOD SPECIMENOrdering Facility: [facility] Address: [address] [place] [address] Performed By: #### 5 7021-8 ####[facility]INGSNCL[facility] [id number] [place] [address] [place] Neutrophils/100 WBC (Bld) 73.0 % Normal [facility] Comment on above: Order Comment: Speci men Type: BLOOD SPECIMENOrdering Facility: [facility] Address: [address] [place] [address] Performed By: #### 5 7021-8 ####[facility] [id number] [place] [address] [place] Nucleated RBC (Bld) [#/Vol] 10*3/uL Normal <0.01 [facility] Comment on above: Order Comment: Speci men Type: BLOOD SPECIMENOrdering Facility: [facility] Address: [address] [place] [address] Performed By: #### 5 7021-8 ####[facility] [id number] [place] [address] [place] Nucleated RBC/100 WBC (Bld) [Ratio] 0.0 /100 WBC Normal [facility] Comment on above: Order Comment: Speci men Type: BLOOD SPECIMENOrdering Facility: [facility] Address: [address] [place] [address] Performed By: #### 5 7021-8 ####[facility] [id number] [place] [address] [place] Platelet mean volume (Bld) [Entitic vol] 11.1 fL Normal 9.0-12.7 [facility] Comment on above: Order Comment: Speci men Type: BLOOD SPECIMENOrdering Facility: [facility] Address: [address] [place] [address] Performed By: #### 5 7021-8 ####[facility] [id number] [place] [address] [place] Platelets (Bld) [#/Vol] 162 10*3/uL Normal 150-400 [facility] Comment on above: Order Comment: Speci men Type: BLOOD SPECIMENOrdering Facility: [facility] Address: [address] [place] [address] Performed By: #### 5 7021-8 ####[facility]SNCL[facility] [id number] [place] [address] [place] RBC (Bld) [#/Vol] 2.53 10*6/uL Low 4.20-6.00 [facility] Comment on above: Order Comment: Speci men Type: BLOOD SPECIMENOrdering Facility: [facility] Address: [address] [place] [address] Performed By: #### 5 7021-8 ####[facility] [id number] [place] [address] [place] WBC (Bld) [#/Vol] 3.56 10*3/uL Low 3.70-11.00 [facility] Comment on above: Order Comment: Speci men Type: BLOOD SPECIMENOrdering Facility: [facility] Address: [address] [place] [address] Performed By: #### 5 7021-8 ####[facility] [id number] [place] [address] [place] CNPNon 05-19-2025 CNPN Normal [facility] Type AND Screenon 05-19-2025 Ab SCREEN GEL Negative Normal [facility] Comment on above: Order Comment: PRETR ANSFUSION HGB = 7.4 HCT = 22.2 PERFORMED AT [facility]05/20/25 @ [id number] Performed By: #### B , BTS #### [facility] [address] [place], [address] CNPNon 05-08-2025 CNPN Normal [facility] BRCon 05-05-2025 RC Normal [facility] Comment on above: Result Comment: [id number] BP RC TRANSFUSED 05/06/25 1127 [id number] BP RC TRANSFUSED 05/06/25 0903 Performed By: #### B , [facility] #### [facility] [address] [place] [place], [place], [id number] CBC W Auto Differential pane l (Bld)on 05-05-2025 Basophils (Bld) [#/Vol] 10*3/uL Normal <0.11 [facility] Comment on above: Order Comment: Speci men Type: BLOOD SPECIMENOrdering Facility: [facility] Address: [address] [place] [address] Performed By: #### 5 7021-8 ####[facility]PITALLIA [id number] [place] [address] [place] Basophils/100 WBC (Bld) 0.5 % Normal C [facility] Comment on above: Order Comment: Speci men Type: BLOOD SPECIMENOrdering Facility: [facility] Address: [address] [place] [address] Performed By: #### 5 7021-8 ####[facility] [id number] [place] [address] [place] Differential cell count method Nom (Bld) Auto Normal [facility] Comment on above: Order Comment: Speci men Type: BLOOD SPECIMENOrdering Facility: [facility] Address: [address] [place] [address] Performed By: #### 5 7021-8 ####[facility] MILLTOWNCLIA [id number] [place] [address] [place] Eosinophils (Bld) [#/Vol] 0.06 10*3/uL Normal <0.46 [facility] Comment on above: Order Comment: Speci men Type: BLOOD SPECIMENOrdering Facility: [facility] Address: [address] [place] [address] Performed By: #### 5 7021-8 ####[facility] MILLWNCLIA [id number] [place] [address] [place] Eosinophils/100 WBC (Bld) 1.6 % Normal [facility] Comment on above: Order Comment: Speci men Type: BLOOD SPECIMENOrdering Facility: [facility] Address: [address] [place] [address] Performed By: #### 5 7021-8 ####[facility] SPRINGSLUISITO [id number] [place] [address] [place] Erythrocyte distribution width (RBC) [Ratio] 17.3 % High 11.5-15.0 [facility] Comment on above: Order Comment: Speci men Type: BLOOD SPECIMENOrdering Facility: [facility] Address: [address] [place] [address] Performed By: #### 5 7021-8 ####[facility] SPRINGSLUISITO [id number] [place] [address] [place] Hematocrit (Bld) [Volume fraction] 23.4 % Low 39.0-51.0 [facility] Comment on above: Order Comment: Speci men Type: BLOOD SPECIMENOrdering Facility: [facility] Address: [address] [place] [address] Performed By: #### 5 7021-8 ####[facility] SPRINGSLUISITO [id number] [place] [address] [place] Hemoglobin (Bld) [Mass/Vol] 7.9 g/dL Low 13.0-17.0 [facility] Comment on above: Order Comment: Speci men Type: BLOOD SPECIMENOrdering Facility: [facility] Address: [address] [place] [address] Performed By: #### 5 7021-8 ####[facility] SPRINGSNCLI [id number] [place] [address] [place] Immature granulocytes (Bld) [#/Vol] 10*3/uL Normal <0.10 [facility] Comment on above: Order Comment: Speci men Type: BLOOD SPECIMENOrdering Facility: [facility] Address: [address] [place] [address] Performed By: #### 5 7021-8 ####[facility] SHERRIVidhyaNCSAURABH [id number] [place] [address] [place] Immature granulocytes/100 WBC (Bld) 0.3 % Normal [facility] Comment on above: Order Comment: Speci men Type: BLOOD SPECIMENOrdering Facility: [facility] Address: [address] [place] [address] Performed By: #### 5 7021-8 ####[facility]INGSROCKYPAR[facility] [id number] [place] [address] [place] Lymphocytes (Bld) [#/Vol] 0.91 10*3/uL Low 1.00-4.00 [facility] Comment on above: Order Comment: Speci men Type: BLOOD SPECIMENOrdering Facility: [facility] Address: [address] [place] [address] Performed By: #### 5 7021-8 ####[facility] [id number] [place] [address] [place] Lymphocytes/100 WBC (Bld) 24.3 % Normal [facility] Comment on above: Order Comment: Speci men Type: BLOOD SPECIMENOrdering Facility: [facility] Address: [address] [place] [address] Performed By: #### 5 7021-8 ####[facility]ITALA [id number] [place] [address] [place] MCH (RBC) [Entitic mass] 30.2 pg Normal 26.0-34.0 [facility] Comment on above: Order Comment: Speci men Type: BLOOD SPECIMENOrdering Facility: [facility] Address: [address] [place] [address] Performed By: #### 5 7021-8 ####[facility] SHERRIWNCLIA [id number] [place] [address] [place] MCHC (RBC) [Mass/Vol] 33.8 g/dL Normal 30.5-36.0 [facility] Comment on above: Order Comment: Speci men Type: BLOOD SPECIMENOrdering Facility: [facility] Address: [address] [place] [address] Performed By: #### 5 7021-8 ####[facility] SPRINGSNCA [id number] [place] [address] [place] MCV (RBC) [Entitic vol] 89.3 fL Normal 80.0-100.0 [facility] Comment on above: Order Comment: Speci men Type: BLOOD SPECIMENOrdering Facility: [facility] Address: [address] [place] [address] Performed By: #### 5 7021-8 ####[facility] [id number] [place] [address] [place] Monocytes (Bld) [#/Vol] 0.21 10*3/uL Normal <0.87 [facility] Comment on above: Order Comment: Speci men Type: BLOOD SPECIMENOrdering Facility: [facility] Address: [address] [place] [address] Performed By: #### 5 7021-8 ####[facility] [id number] [address] [place] Monocytes/100 WBC (Bld) 5.6 % Normal C [facility] Comment on above: Order Comment: Speci men Type: BLOOD SPECIMENOrdering Facility: [facility] Address: [address] [place] [address] Performed By: #### 5 7021-8 ####[facility] SPRINGSNCLI [id number] [place] [address] [place] Neutrophils (Bld) [#/Vol] 2.54 10*3/uL Normal 1.45-7.50 [facility] Comment on above: Order Comment: Speci men Type: BLOOD SPECIMENOrdering Facility: [facility] Address: [address] [place] [address] Performed By: #### 5 7021-8 ####[facility] [id number] [place] [address] [place] Neutrophils/100 WBC (Bld) 67.7 % Normal [facility] Comment on above: Order Comment: Speci men Type: BLOOD SPECIMENOrdering Facility: [facility] Address: [address] [place] [address] Performed By: #### 5 7021-8 ####[facility]INGSNCPARK [facility] [id number] [place] [address] [place] Nucleated RBC (Bld) [#/Vol] 10*3/uL Normal <0.01 [facility] Comment on above: Order Comment: Speci men Type: BLOOD SPECIMENOrdering Facility: [facility] Address: [address] [place] [address] Performed By: #### 5 7021-8 ####[facility] SPRINGSNCLI [id number] [place] [address] [place] Nucleated RBC/100 WBC (Bld) [Ratio] 0.0 /100 WBC Normal [facility] Comment on above: Order Comment: Speci men Type: BLOOD SPECIMENOrdering Facility: [facility] Address: [address] [place] [address] Performed By: #### 5 7021-8 ####[facility] SPRINGSNCLIA [id number] [place] [address] [place] Platelet mean volume (Bld) [Entitic vol] 10.1 fL Normal 9.0-12.7 [facility] Comment on above: Order Comment: Speci men Type: BLOOD SPECIMENOrdering Facility: [facility] Address: [address] [place] [address] Performed By: #### 5 7021-8 ####[facility] GABBY BECKYNCLESLYA [id number] [place] [address] [place] Platelets (Bld) [#/Vol] 161 10*3/uL Normal 150-400 [facility] Comment on above: Order Comment: Speci men Type: BLOOD SPECIMENOrdering Facility: [facility] Address: [address] [place] [address] Performed By: #### 5 7021-8 ####[facility] SHERRIMARIONNCLIA [id number] [place] [address] [place] RBC (Bld) [#/Vol] 2.62 10*6/uL Low 4.20-6.00 [facility] Comment on above: Order Comment: Speci men Type: BLOOD SPECIMENOrdering Facility: [facility] Address: [address] [place] [address] Performed By: #### 5 7021-8 ####[facility] SPRINGSNCLIA [id number] [place] [address] [place] WBC (Bld) [#/Vol] 3.75 10*3/uL Normal 3.70-11.00 [facility] Comment on above: Order Comment: Speci men Type: BLOOD SPECIMENOrdering Facility: [facility] Address: [address] [place] [address] Performed By: #### 5 7021-8 ####[facility] SPRINGSNCLIA [id number] [place] [address] [place] CNPNon 05-05-2025 CNPN Normal [facility] Comprehensive metabolic 2000 panelon 05-05-2025 Albumin [Mass/Vol] 4.2 g/dL Normal 3.9-4.9 [facility] Comment on above: Order Comment: Speci men Type: BLOOD SPECIMENOrdering Facility: [facility] Address: [address] [place] [address] Performed By: #### 2 4323-8 ####[facility] SHERRIWROCKYLIA [id number] [place] [address] [place] ALP [Catalytic activity/Vol] 76 U/L Normal 38-113 [facility] Comment on above: Order Comment: Speci men Type: BLOOD SPECIMENOrdering Facility: [facility] Address: [address] [place] [address] Performed By: #### 2 4323-8 ####[facility] SPRINGSWNCLIA [id number] [place] [address] [place] ALT [Catalytic activity/Vol] 57 U/L High 10-54 [facility] Comment on above: Order Comment: Speci men Type: BLOOD SPECIMENOrdering Facility: [facility] Address: [address] [place] [address] Performed By: #### 2 4323-8 ####[facility] SPRINGSNCLIA [id number] [place] [address] [place] Anion gap [Moles/Vol] 12 mmol/L Normal 8-15 [facility] Comment on above: Order Comment: Speci men Type: BLOOD SPECIMENOrdering Facility: [facility] Address: [address] [place] [address] Performed By: #### 2 4323-8 ####[facility] MILLTOWNCLIA [id number] [place] [address] [place] AST [Catalytic activity/Vol] 43 U/L High 14-40 [facility] Comment on above: Order Comment: Speci men Type: BLOOD SPECIMENOrdering Facility: [facility] Address: [address] [place] [address] Performed By: #### 2 4323-8 ####[facility] MILLTOWNCLIA [id number] [place] [address] [place] Bilirubin [Mass/Vol] 1.2 mg/dL Normal 0.2-1.3 [facility] Comment on above: Order Comment: Speci men Type: BLOOD SPECIMENOrdering Facility: [facility] Address: [address] [place] [address] Performed By: #### 2 4323-8 ####[facility] MILLWNCLIA [id number] [place] [address] [place] Calcium [Mass/Vol] 9.7 mg/dL Normal 8.5-10.2 [facility] Comment on above: Order Comment: Speci men Type: BLOOD SPECIMENOrdering Facility: [facility] Address: [address] [place] [address] Performed By: #### 2 4323-8 ####[facility] [id number] [place] [address] [place] Chloride [Moles/Vol] 99 mmol/L Normal 98-107 [facility] Comment on above: Order Comment: Speci men Type: BLOOD SPECIMENOrdering Facility: [facility] Address: [address] [place] [address] Performed By: #### 2 4323-8 ####[facility] MILLWNCLIA [id number] [place] [address] [place] CO2 [Moles/Vol] 24 mmol/L Normal 22-30 [facility] Comment on above: Order Comment: Speci men Type: BLOOD SPECIMENOrdering Facility: [facility] Address: [address] [place] [address] Performed By: #### 2 4323-8 ####[facility] SPRINGSNCLIA [id number] [place] [address] [place] Creatinine [Mass/Vol] 0.68 mg/dL Low 0.73-1.22 [facility] Comment on above: Order Comment: Gilma ojeda Type: BLOOD SPECIMENOrdering Facility: [facility] Address: [address] [place] [address] Performed By: #### 2 4323-8 ####[facility] [id number] [place] [address] [place] Creatinine and Glomerular filtration rate.predicted panel (S/P/Bld) 94 mL/min/1.73m??? Normal >=60 [facility] Comment on above: Order Comment: Gilma ojeda Type: BLOOD SPECIMENOrdering Facility: [facility] Address: [address] [place] [address] Result Comment: Lilly mated Glomerular Filtration Rate (eGFR) is calculated using the 2020 CKD-EPI creatinine equation. This equation utilizes serum creatinine, sex, and age as parameters. The creatinine assay has traceable calibration to isotope dilution-mass spectrometry. Refer to KDIGO guidelines for clinical interpretation. In patients with unstable renal function, e.g. those with acute kidney injury, the eGFR may not accurately reflect actual GFR. Performed By: #### 2 4323-8 ####[facility] [id number] [place] [address] [place] Glucose [Mass/Vol] 147 mg/dL High 74-99 [facility] Comment on above: Order Comment: Gilma ojeda Type: BLOOD SPECIMENOrdering Facility: [facility] Address: [address] [place] [address] Result Comment: The [place] [employer] (ADA) provides guidance for cutoff values for fasting glucose and random glucose. The ADA defines fasting as no caloric intake for at least 8 hours. Fasting plasma glucose results between 100 to 125 mg/dL indicate increased risk for diabetes (prediabetes).Fasting plasma glucose results greater than or equal to 126 mg/dL meet the criteria for diagnosis of diabetes. In the absence of unequivocal hyperglycemia, results should be confirmed by repeat testing. In a patient with classic symptoms of hyperglycemia or hyperglycemic crisis, random plasma glucose results greater than or equal to 200 mg/dL meet the criteria for diagnosis of diabetes.Reference: Standards of Medical Care in Diabetes 2016, [place] [employer]. Diabetes Care. 2016.39(Suppl 1). Performed By: #### 2 4323-8 ####[facility] SHERRIGA [id number] [place] [address] [place] Potassium [Moles/Vol] 4.7 mmol/L Normal 3.7-5.1 [facility] Comment on above: Order Comment: Speci men Type: BLOOD SPECIMENOrdering Facility: [facility] Address: [address] [place] [address] Performed By: #### 2 4323-8 ####[facility] SPRINGSROCKYDarrick [id number] [place] [address] [place] Protein [Mass/Vol] 6.5 g/dL Normal 6.3-8.0 [facility] Comment on above: Order Comment: Speci men Type: BLOOD SPECIMENOrdering Facility: [facility] Address: [address] [place] [address] Performed By: #### 2 4323-8 ####[facility] SPRINGSLUISITO [id number] [place] [address] [place] Sodium [Moles/Vol] 135 mmol/L Low 136-144 [facility] Comment on above: Order Comment: Speci men Type: BLOOD SPECIMENOrdering Facility: [facility] Address: [address] [place] [address] Performed By: #### 2 4323-8 ####[facility] SPRINGSLUISITO [id number] [place] [address] [place] Urea nitrogen [Mass/Vol] 13 mg/dL Normal 9-24 [facility] Comment on above: Order Comment: Speci men Type: BLOOD SPECIMENOrdering Facility: [facility] Address: [address] [place] [address] Performed By: #### 2 4323-8 ####[facility] SPRINGSWNCLIA [id number] [place] [address] [place] Type AND Screenon 05-05-2025 Ab SCREEN GEL Negative Normal [facility] Comment on above: Order Comment: PRETR ANSFUSION HGB = 8.0 HCT = 23.9 PERFORMED AT [facility] N 06/17/25 AT 0800 N Y A Performed By: #### B TS, [facility] #### [facility] [address] [place], [address] US ABD RIGHT UPPER QUADRANTo n 05-05-2025 US ABD RIGHT UPPER QUADRANT Normal [facility] US ABD SPLEEN -NBon 05-05-20 US ABD SPLEEN -NB Normal [facility] BRCon 04-21-2025 RC Normal [facility] Comment on above: Result Comment: [id number] BP RC TRANSFUSED 04/22/25 1135 [id number] BP RC TRANSFUSED 04/22/25 0904 Performed By: #### B #### [facility] [address] [place], [address] CBC W Auto Differential pane l (Bld)on 04-21-2025 Basophils (Bld) [#/Vol] 10*3/uL Normal <0.11 C [facility] Comment on above: Order Comment: Speci men Type: BLOOD SPECIMENOrdering Facility: [facility] Address: [address] [place] [address] Performed By: #### 5 7021-8 ####[facility] SPRINGSNCLIA [id number] [place] [address] [place] Basophils/100 WBC (Bld) 0.3 % Normal [facility] Comment on above: Order Comment: Speci men Type: BLOOD SPECIMENOrdering Facility: [facility] Address: [address] [place] [address] Performed By: #### 5 7021-8 ####[facility] [id number] [place] [address] [place] Differential cell count method Nom (Bld) Auto Normal [facility] Comment on above: Order Comment: Speci men Type: BLOOD SPECIMENOrdering Facility: [facility] Address: [address] [place] [address] Performed By: #### 5 7021-8 ####[facility] [id number] [place] [address] [place] Eosinophils (Bld) [#/Vol] 0.05 10*3/uL Normal <0.46 [facility] Comment on above: Order Comment: Speci men Type: BLOOD SPECIMENOrdering Facility: [facility] Address: [address] [place] [address] Performed By: #### 5 7021-8 ####[facility]SN[facility] [id number] [place] [address] [place] Eosinophils/100 WBC (Bld) 1.3 % Normal [facility] Comment on above: Order Comment: Speci men Type: BLOOD SPECIMENOrdering Facility: [facility] Address: [address] [place] [address] Performed By: #### 5 7021-8 ####[facility] [id number] [place] [address] [place] Erythrocyte distribution width (RBC) [Ratio] 17.8 % High 11.5-15.0 [facility] Comment on above: Order Comment: Speci men Type: BLOOD SPECIMENOrdering Facility: [facility] Address: [address] [place] [address] Performed By: #### 5 7021-8 ####[facility] SPRINGSNCLI [id number] [place] [address] [place] Hematocrit (Bld) [Volume fraction] 22.3 % Low 39.0-51.0 [facility] Comment on above: Order Comment: Speci men Type: BLOOD SPECIMENOrdering Facility: [facility] Address: [address] [place] [address] Performed By: #### 5 7021-8 ####[facility] SHERRILIANNE [id number] [place] [address] [place] Hemoglobin (Bld) [Mass/Vol] 7.4 g/dL Low 13.0-17.0 [facility] Comment on above: Order Comment: Speci men Type: BLOOD SPECIMENOrdering Facility: [facility] Address: [address] [place] [address] Performed By: #### 5 7021-8 ####[facility] [id number] [place] [address] [place] Immature granulocytes (Bld) [#/Vol] 10*3/uL Normal <0.10 [facility] Comment on above: Order Comment: Speci men Type: BLOOD SPECIMENOrdering Facility: [facility] Address: [address] [place] [address] Performed By: #### 5 7021-8 ####[facility] [id number] [place] [address] [place] Immature granulocytes/100 WBC (Bld) 0.5 % Normal [facility] Comment on above: Order Comment: Speci men Type: BLOOD SPECIMENOrdering Facility: [facility] Address: [address] [place] [address] Performed By: #### 5 7021-8 ####[facility] SPRINGSNCLIA [id number] [place] [address] [place] Lymphocytes (Bld) [#/Vol] 0.70 10*3/uL Low 1.00-4.00 [facility] Comment on above: Order Comment: Speci men Type: BLOOD SPECIMENOrdering Facility: [facility] Address: [address] [place] [address] Performed By: #### 5 7021-8 ####[facility]PITALL[facility] [id number] [place] [address] [place] Lymphocytes/100 WBC (Bld) 17.8 % Normal [facility] Comment on above: Order Comment: Speci men Type: BLOOD SPECIMENOrdering Facility: [facility] Address: [address] [place] [address] Performed By: #### 5 7021-8 ####[facility] [id number] [place] [address] [place] MCH (RBC) [Entitic mass] 30.5 pg Normal 26.0-34.0 [facility] Comment on above: Order Comment: Speci men Type: BLOOD SPECIMENOrdering Facility: [facility] Address: [address] [place] [address] Performed By: #### 5 7021-8 ####[facility] [id number] [place] [address] [place] MCHC (RBC) [Mass/Vol] 33.2 g/dL Normal 30.5-36.0 [facility] Comment on above: Order Comment: Speci men Type: BLOOD SPECIMENOrdering Facility: [facility] Address: [address] [place] [address] Performed By: #### 5 7021-8 ####[facility] [id number] [place] [address] [place] MCV (RBC) [Entitic vol] 91.8 fL Normal 80.0-100.0 C [facility] Comment on above: Order Comment: Speci men Type: BLOOD SPECIMENOrdering Facility: [facility] Address: [address] [place] [address] Performed By: #### 5 7021-8 ####[facility] [id number] [place] [address] [place] Monocytes (Bld) [#/Vol] 0.21 10*3/uL Normal <0.87 [facility] Comment on above: Order Comment: Speci men Type: BLOOD SPECIMENOrdering Facility: [facility] Address: [address] [place] [address] Performed By: #### 5 7021-8 ####[facility]OSPITALLIA [id number] [place] [address] [place] Monocytes/100 WBC (Bld) 5.3 % Normal [facility] Comment on above: Order Comment: Speci men Type: BLOOD SPECIMENOrdering Facility: [facility] Address: [address] [place] [address] Performed By: #### 5 7021-8 ####[facility] SPRINGSNCA [id number] [place] [address] [place] Neutrophils (Bld) [#/Vol] 2.94 10*3/uL Normal 1.45-7.50 [facility] Comment on above: Order Comment: Speci men Type: BLOOD SPECIMENOrdering Facility: [facility] Address: [address] [place] [address] Performed By: #### 5 7021-8 ####[facility] [id number] [place] [address] [place] Neutrophils/100 WBC (Bld) 74.8 % Normal [facility] Comment on above: Order Comment: Speci men Type: BLOOD SPECIMENOrdering Facility: [facility] Address: [address] [place] [address] Performed By: #### 5 7021-8 ####[facility] SPRINGSNCLIA [id number] [place] [address] [place] Nucleated RBC (Bld) [#/Vol] 10*3/uL Normal <0.01 [facility] Comment on above: Order Comment: Speci men Type: BLOOD SPECIMENOrdering Facility: [facility] Address: [address] [place] [address] Performed By: #### 5 7021-8 ####[facility] WILLIAM [id number] [place] [address] [place] Nucleated RBC/100 WBC (Bld) [Ratio] 0.0 /100 WBC Normal [facility] Comment on above: Order Comment: Speci men Type: BLOOD SPECIMENOrdering Facility: [facility] Address: [address] [place] [address] Performed By: #### 5 7021-8 ####[facility] SHERRIVidhyaNCSAURABH [id number] [place] [address] [place] Platelet mean volume (Bld) [Entitic vol] 11.2 fL Normal 9.0-12.7 [facility] Comment on above: Order Comment: Speci men Type: BLOOD SPECIMENOrdering Facility: [facility] Address: [address] [place] [address] Performed By: #### 5 7021-8 ####[facility] SHERRIMARIONNCLESLYA [id number] [place] [address] [place] Platelets (Bld) [#/Vol] 140 10*3/uL Low 150-400 [facility] Comment on above: Order Comment: Speci men Type: BLOOD SPECIMENOrdering Facility: [facility] Address: [address] [place] [address] Performed By: #### 5 7021-8 ####[facility] SPRINGSNCLIA [id number] [place] [address] [place] RBC (Bld) [#/Vol] 2.43 10*6/uL Low 4.20-6.00 [facility] Comment on above: Order Comment: Speci men Type: BLOOD SPECIMENOrdering Facility: [facility] Address: [address] [place] [address] Performed By: #### 5 7021-8 ####[facility]INGSNCA [id number] [place] [address] [place] WBC (Bld) [#/Vol] 3.93 10*3/uL Normal 3.70-11.00 [facility] Comment on above: Order Comment: Speci men Type: BLOOD SPECIMENOrdering Facility: [facility] Address: [address] [place] [address] Performed By: #### 5 7021-8 ####[facility] [id number] [place] [address] [place] CNOVSPon 04-21-2025 CNOVSP Normal [facility] CNPNon 04-21-2025 CNPN Normal [facility] Comprehensive metabolic 2000 panelon 04-21-2025 Albumin [Mass/Vol] 4.2 g/dL Normal 3.9-4.9 [facility] Comment on above: Order Comment: Speci men Type: BLOOD SPECIMENOrdering Facility: [facility] Address: [address] [place] [address] Performed By: #### 2 4323-8 ####[facility] SPRINGSNCLIA [id number] [place] [address] [place] ALP [Catalytic activity/Vol] 78 U/L Normal 38-113 [facility] Comment on above: Order Comment: Speci men Type: BLOOD SPECIMENOrdering Facility: [facility] Address: [address] [place] [address] Performed By: #### 2 4323-8 ####[facility] [id number] [place] [address] [place] ALT [Catalytic activity/Vol] 55 U/L High 10-54 [facility] Comment on above: Order Comment: Speci men Type: BLOOD SPECIMENOrdering Facility: [facility] Address: [address] [place] [address] Performed By: #### 2 4323-8 ####[facility] GABBY MILLTOWNCLIA [id number] [place] [address] [place] Anion gap [Moles/Vol] 13 mmol/L Normal 8-15 [facility] Comment on above: Order Comment: Speci men Type: BLOOD SPECIMENOrdering Facility: [facility] Address: [address] [place] [address] Performed By: #### 2 4323-8 ####[facility] MILLWNCLIA [id number] [place] [address] [place] AST [Catalytic activity/Vol] 39 U/L Normal 14-40 [facility] Comment on above: Order Comment: Speci men Type: BLOOD SPECIMENOrdering Facility: [facility] Address: [address] [place] [address] Performed By: #### 2 4323-8 ####[facility] SPRINGSWNCLIA [id number] [place] [address] [place] Bilirubin [Mass/Vol] 1.1 mg/dL Normal 0.2-1.3 [facility] Comment on above: Order Comment: Speci men Type: BLOOD SPECIMENOrdering Facility: [facility] Address: [facility] [place] [address] Performed By: #### 2 4323-8 ####[facility] MILLTOWNCLIA [id number] [place] [address] [place] Calcium [Mass/Vol] 9.1 mg/dL Normal 8.5-10.2 [facility] Comment on above: Order Comment: Speci men Type: BLOOD SPECIMENOrdering Facility: [facility] Address: [address] [place] [address] Performed By: #### 2 4323-8 ####[facility] MILLTOWNCLIA [id number] [place] [address] [place] Chloride [Moles/Vol] 100 mmol/L Normal 98-107 [facility] Comment on above: Order Comment: Speci men Type: BLOOD SPECIMENOrdering Facility: [facility] Address: [address] [place] [address] Performed By: #### 2 4323-8 ####[facility]SNCP[facility] [id number] [place] [address] [place] CO2 [Moles/Vol] 25 mmol/L Normal 22-30 [facility] Comment on above: Order Comment: Speci men Type: BLOOD SPECIMENOrdering Facility: [facility] Address: [address] [place] [address] Performed By: #### 2 4323-8 ####[facility]SNCP[facility] [id number] [place] [address] [place] Creatinine [Mass/Vol] 0.73 mg/dL Normal 0.73-1.22 [facility] Comment on above: Order Comment: Speci men Type: BLOOD SPECIMENOrdering Facility: [facility] Address: [address] [place] [address] Performed By: #### 2 4323-8 ####[facility] SPRINGSNCLI [id number] [place] [address] [place] [facility] Creatinine and Glomerular filtration rate.predicted panel (S/P/Bld) 92 mL/min/1.73m??? Normal >=60 [facility] Comment on above: Order Comment: Speci men Type: BLOOD SPECIMENOrdering Facility: [facility] Address: [address] [place] [address] Result Comment: Lilly mated Glomerular Filtration Rate (eGFR) is calculated using the 2020 CKD-EPI creatinine equation. This equation utilizes serum creatinine, sex, and age as parameters. The creatinine assay has traceable calibration to isotope dilution-mass spectrometry. Refer to KDIGO guidelines for clinical interpretation. In patients with unstable renal function, e.g. those with acute kidney injury, the eGFR may not accurately reflect actual GFR. Performed By: #### 2 4323-8 ####[facility] SHERRIWNCLIA [id number] [place] [address] [place] Glucose [Mass/Vol] 173 mg/dL High 74-99 [facility] Comment on above: Order Comment: Speci men Type: BLOOD SPECIMENOrdering Facility: [facility] Address: [address] [place] [address] Result Comment: The [place] Diabetes Association (ADA) provides guidance for cutoff values for fasting glucose and random glucose. The ADA defines fasting as no caloric intake for at least 8 hours. Fasting plasma glucose results between 100 to 125 mg/dL indicate increased risk for diabetes (prediabetes).Fasting plasma glucose results greater than or equal to 126 mg/dL meet the criteria for diagnosis of diabetes. In the absence of unequivocal hyperglycemia, results should be confirmed by repeat testing. In a patient with classic symptoms of hyperglycemia or hyperglycemic crisis, random plasma glucose results greater than or equal to 200 mg/dL meet the criteria for diagnosis of diabetes.Reference: Standards of Medical Care in Diabetes 2016, [place] [employer] Association. Diabetes Care. 2016.39(Suppl 1). Performed By: #### 2 4323-8 ####[facility] SPRINGSNCLIA [id number] [place] [address] [place] Potassium [Moles/Vol] 4.3 mmol/L Normal 3.7-5.1 [facility] Comment on above: Order Comment: Speci men Type: BLOOD SPECIMENOrdering Facility: [facility] Address: [address] [place] [address] Performed By: #### 2 4323-8 ####[facility] SPRINGSNCLIA [id number] [place] [address] [place] Protein [Mass/Vol] 6.2 g/dL Low 6.3-8.0 [facility] Comment on above: Order Comment: Speci men Type: BLOOD SPECIMENOrdering Facility: [facility] Address: [address] [place] [address], [place] [address] Performed By: #### 2 4323-8 ####[facility]ERR[facility]ENTERA [id number] [place] [address] [place] Sodium [Moles/Vol] 138 mmol/L Normal 136-144 [facility] Comment on above: Order Comment: Speci men Type: BLOOD SPECIMENOrdering Facility: [facility] Address: [address] [place], [place] [id number] Performed By: #### 2 4323-8 ####[facility] [id number] [place] [address] [place] Urea nitrogen [Mass/Vol] 13 mg/dL Normal 9-24 [facility] Comment on above: Order Comment: Speci men Type: BLOOD SPECIMENOrdering Facility: [facility] Address: [address] [place], [place] [id number] Performed By: #### 2 4323-8 ####[facility] [id number] [place] [address] [place] Type AND Screenon 04-21-2025 Ab SCREEN GEL Negative Normal [facility] Comment on above: Order Comment: A Performed By: #### B TS #### [facility] [address] [facility]. [place], [place], [address] BRCon 04-07-2025 RC Normal [facility] Comment on above: Result Comment: [id number] OP RC TRANSFUSED 04/08/25 0829 [id number] BP RC TRANSFUSED 04/08/25 1046 Performed By: #### B , BTS #### [facility] [address] [place], [place], [id number] CBC W Auto Differential pane l (Bld)on 04-07-2025 Basophils (Bld) [#/Vol] 10*3/uL Normal <0.11 [facility] Comment on above: Order Comment: Speci men Type: BLOOD SPECIMENOrdering Facility: [facility] Address: [address] [place] [address] Performed By: #### 5 7021-8 ####[facility] SPRINGSWNCLIA [id number] [place] [address] [place] Basophils/100 WBC (Bld) 0.5 % Normal [facility] Comment on above: Order Comment: Speci men Type: BLOOD SPECIMENOrdering Facility: [facility] Address: [address] [place] [address] Performed By: #### 5 7021-8 ####[facility]PITALLIA [id number] [place] [address] [place] Differential cell count method Nom (Bld) Auto Normal [facility] Comment on above: Order Comment: Speci men Type: BLOOD SPECIMENOrdering Facility: [facility] Address: [address] [place] [address] Performed By: #### 5 7021-8 ####[facility]ITALL[facility] [id number] [place] [address] [place] Eosinophils (Bld) [#/Vol] 0.03 10*3/uL Normal <0.46 [facility] Comment on above: Order Comment: Speci men Type: BLOOD SPECIMENOrdering Facility: [facility] Address: [address] [place] [address] Performed By: #### 5 7021-8 ####[facility]ALL[facility] [id number] [place] [address] [place] Eosinophils/100 WBC (Bld) 0.8 % Normal [facility] Comment on above: Order Comment: Speci men Type: BLOOD SPECIMENOrdering Facility: [facility] Address: [address] [place] [address] Performed By: #### 5 7021-8 ####[facility]ITALL[facility] [id number] [place] [address] [place] Erythrocyte distribution width (RBC) [Ratio] 18.1 % High 11.5-15.0 [facility] Comment on above: Order Comment: Speci men Type: BLOOD SPECIMENOrdering Facility: [facility] Address: [address] [place] [address] Performed By: #### 5 7021-8 ####[facility] SPRINGSROCKYDarrick [id number] [place] [address] [place] Hematocrit (Bld) [Volume fraction] 22.8 % Low 39.0-51.0 [facility] Comment on above: Order Comment: Speci men Type: BLOOD SPECIMENOrdering Facility: [facility] Address: [address] [place] [address] Performed By: #### 5 7021-8 ####[facility] SPRINGSROCKYDarrick [id number] [place] [address] [place] Hemoglobin (Bld) [Mass/Vol] 7.4 g/dL Low 13.0-17.0 [facility] Comment on above: Order Comment: Speci men Type: BLOOD SPECIMENOrdering Facility: [facility] Address: [address] [place] [address] Performed By: #### 5 7021-8 ####[facility] HOSPITALSAURABH [id number] [place] [address] [place] Immature granulocytes (Bld) [#/Vol] 10*3/uL Normal <0.10 [facility] Comment on above: Order Comment: Speci men Type: BLOOD SPECIMENOrdering Facility: [facility] Address: [address] [place] [address] Performed By: #### 5 7021-8 ####[facility] SPRINGSNCLIA [id number] [place] [address] [place] Immature granulocytes/100 WBC (Bld) 0.5 % Normal [facility] Comment on above: Order Comment: Speci men Type: BLOOD SPECIMENOrdering Facility: [facility] Address: [address] [place] [address] Performed By: #### 5 7021-8 ####[facility] SHERRIMARIONNCLESLY [id number] [place] [address] [place] Lymphocytes (Bld) [#/Vol] 0.84 10*3/uL Low 1.00-4.00 [facility] Comment on above: Order Comment: Speci men Type: BLOOD SPECIMENOrdering Facility: [facility] Address: [address] [place] [address] Performed By: #### 5 7021-8 ####[facility] [id number] [place] [address] [place] Lymphocytes/100 WBC (Bld) 21.3 % Normal [facility] Comment on above: Order Comment: Speci men Type: BLOOD SPECIMENOrdering Facility: [facility] Address: [address] [place] [address] Performed By: #### 5 7021-8 ####[facility] [id number] [place] [address] [place] MCH (RBC) [Entitic mass] 30.1 pg Normal 26.0-34.0 [facility] Comment on above: Order Comment: Speci men Type: BLOOD SPECIMENOrdering Facility: [facility] Address: [address] [place] [address] Performed By: #### 5 7021-8 ####[facility] SPRINGSNCA [id number] [place] [address] [place] MCHC (RBC) [Mass/Vol] 32.5 g/dL Normal 30.5-36.0 [facility] Comment on above: Order Comment: Speci men Type: BLOOD SPECIMENOrdering Facility: [facility] Address: [address] [place] [address] Performed By: #### 5 7021-8 ####[facility] SHERRIMARIONNCLIA [id number] [place] [address] [place] MCV (RBC) [Entitic vol] 92.7 fL Normal 80.0-100.0 C [facility] Comment on above: Order Comment: Speci men Type: BLOOD SPECIMENOrdering Facility: [facility] Address: [address] [place] [address] Performed By: #### 5 7021-8 ####[facility]PITALLIA [id number] [place] [address] [place] Monocytes (Bld) [#/Vol] 0.21 10*3/uL Normal <0.87 [facility] Comment on above: Order Comment: Speci men Type: BLOOD SPECIMENOrdering Facility: [facility] Address: [address] [place] [address] Performed By: #### 5 7021-8 ####[facility]ITALL[facility] [id number] [place] [address] [place] Monocytes/100 WBC (Bld) 5.3 % Normal C [facility] Comment on above: Order Comment: Speci men Type: BLOOD SPECIMENOrdering Facility: [facility] Address: [address] [place] [address] Performed By: #### 5 7021-8 ####[facility]ITALL[facility] [id number] [place] [address] [place] Neutrophils (Bld) [#/Vol] 2.82 10*3/uL Normal 1.45-7.50 [facility] Comment on above: Order Comment: Speci men Type: BLOOD SPECIMENOrdering Facility: [facility] Address: [address] [place] [address] Performed By: #### 5 7021-8 ####[facility]ALL[facility] [id number] [place] [address] [place] Neutrophils/100 WBC (Bld) 71.6 % Normal [facility] Comment on above: Order Comment: Speci men Type: BLOOD SPECIMENOrdering Facility: [facility] Address: [address] [place] [address] Performed By: #### 5 7021-8 ####[facility] [id number] [place] [address] [place] Nucleated RBC (Bld) [#/Vol] 10*3/uL Normal <0.01 [facility] Comment on above: Order Comment: Speci men Type: BLOOD SPECIMENOrdering Facility: [facility] Address: [address] [place] [address] Performed By: #### 5 7021-8 ####[facility]SNCP[facility] [id number] [place] [address] [place] Nucleated RBC/100 WBC (Bld) [Ratio] 0.0 /100 WBC Normal [facility] Comment on above: Order Comment: Speci men Type: BLOOD SPECIMENOrdering Facility: [facility] Address: [address] [place] [address] Performed By: #### 5 7021-8 ####[facility] [id number] [place] [address] [place] Platelet mean volume (Bld) [Entitic vol] 10.2 fL Normal 9.0-12.7 [facility] Comment on above: Order Comment: Speci men Type: BLOOD SPECIMENOrdering Facility: [facility] Address: [address] [place] [address] Performed By: #### 5 7021-8 ####[facility] SPRINGSNCLI [id number] [place] [address] [place] Platelets (Bld) [#/Vol] 132 10*3/uL Low 150-400 [facility] Comment on above: Order Comment: Speci men Type: BLOOD SPECIMENOrdering Facility: [facility] Address: [address] [place] [address] Performed By: #### 5 7021-8 ####[facility] SHERRIVidhyaNCLIA [id number] [place] [address] [place] RBC (Bld) [#/Vol] 2.46 10*6/uL Low 4.20-6.00 [facility] Comment on above: Order Comment: Speci men Type: BLOOD SPECIMENOrdering Facility: [facility] Address: [address] [place] [address] Performed By: #### 5 7021-8 ####[facility] SPRINGSNCLIA [id number] [place] [address] [place] WBC (Bld) [#/Vol] 3.94 10*3/uL Normal 3.70-11.00 [facility] Comment on above: Order Comment: Speci men Type: BLOOD SPECIMENOrdering Facility: [facility] Address: [address] [place] [address] Performed By: #### 5 7021-8 ####[facility] SPRINGSNCLIA [id number] [place] [address] [place] CNPNon 04-07-2025 CNPN Normal [facility] Comprehensive metabolic 2000 panelon 04-07-2025 Albumin [Mass/Vol] 4.3 g/dL Normal 3.9-4.9 [facility] Comment on above: Order Comment: Speci men Type: BLOOD SPECIMENOrdering Facility: [facility] Address: [address] [place] [address] Performed By: #### 2 4323-8 ####[facility] SPRINGSNCLIA [id number] [place] [address] [place] ALP [Catalytic activity/Vol] 75 U/L Normal 38-113 [facility] Comment on above: Order Comment: Speci men Type: BLOOD SPECIMENOrdering Facility: [facility] Address: [address] [place] [address] Performed By: #### 2 4323-8 ####[facility] SHERRITOWNCLIA [id number] [place] [address] [place] ALT [Catalytic activity/Vol] 45 U/L Normal 10-54 [facility] Comment on above: Order Comment: Speci men Type: BLOOD SPECIMENOrdering Facility: [facility] Address: [address] [place] [address] Performed By: #### 2 4323-8 ####[facility] SPRINGSWNCLIA [id number] [place] [address] [place] Anion gap [Moles/Vol] 11 mmol/L Normal 8-15 [facility] Comment on above: Order Comment: Speci men Type: BLOOD SPECIMENOrdering Facility: [facility] Address: [address] [place] [address] Performed By: #### 2 4323-8 ####[facility] SPRINGSWNCLIA [id number] [place] [address] [place] AST [Catalytic activity/Vol] 35 U/L Normal 14-40 [facility] Comment on above: Order Comment: Speci men Type: BLOOD SPECIMENOrdering Facility: [facility] Address: [address] [place] [address] Performed By: #### 2 4323-8 ####[facility] SPRINGSWNCLIA [id number] [place] [address] [place] Bilirubin [Mass/Vol] 1.1 mg/dL Normal 0.2-1.3 [facility] Comment on above: Order Comment: Speci men Type: BLOOD SPECIMENOrdering Facility: [facility] Address: [address] [place] [address] Performed By: #### 2 4323-8 ####[facility] GABBY MILLTOWNCLIA [id number] [place] [address] [place] Calcium [Mass/Vol] 9.5 mg/dL Normal 8.5-10.2 [facility] Comment on above: Order Comment: Speci men Type: BLOOD SPECIMENOrdering Facility: [facility] Address: [address] [place] [address] Performed By: #### 2 4323-8 ####[facility] MILLTOWNCLIA [id number] [place] [address] [place] Chloride [Moles/Vol] 101 mmol/L Normal 98-107 [facility] Comment on above: Order Comment: Speci men Type: BLOOD SPECIMENOrdering Facility: [facility] Address: [address] [place] [address] Performed By: #### 2 4323-8 ####[facility] SPRINGSNCLIA [id number] [place] [address] [place] CO2 [Moles/Vol] 24 mmol/L Normal 22-30 [facility] Comment on above: Order Comment: Speci men Type: BLOOD SPECIMENOrdering Facility: [facility] Address: [address] [place] [address] Performed By: #### 2 4323-8 ####[facility] MILLTOWNCLIA [id number] [place] [address] [place] Creatinine [Mass/Vol] 0.69 mg/dL Low 0.73-1.22 [facility] Comment on above: Order Comment: Speci men Type: BLOOD SPECIMENOrdering Facility: [facility] Address: [address] [place] [address] Performed By: #### 2 4323-8 ####[facility] MILLWNCLIA [id number] [place] [address] [place] Creatinine and Glomerular filtration rate.predicted panel (S/P/Bld) 94 mL/min/1.73m??? Normal >=60 [facility] Comment on above: Order Comment: Gilma ojeda Type: BLOOD SPECIMENOrdering Facility: [facility] Address: [address] [place] [address] Result Comment: Lilly mated Glomerular Filtration Rate (eGFR) is calculated using the 2020 CKD-EPI creatinine equation. This equation utilizes serum creatinine, sex, and age as parameters. The creatinine assay has traceable calibration to isotope dilution-mass spectrometry. Refer to KDIGO guidelines for clinical interpretation. In patients with unstable renal function, e.g. those with acute kidney injury, the eGFR may not accurately reflect actual GFR. Performed By: #### 2 4323-8 ####[facility] [id number] [place] [address] [place] Glucose [Mass/Vol] 131 mg/dL High 74-99 [facility] Comment on above: Order Comment: Gilma ojeda Type: BLOOD SPECIMENOrdering Facility: [facility] Address: [address] [place] [address] Result Comment: The [place] Diabetes Association (ADA) provides guidance for cutoff values for fasting glucose and random glucose. The ADA defines fasting as no caloric intake for at least 8 hours. Fasting plasma glucose results between 100 to 125 mg/dL indicate increased risk for diabetes (prediabetes).Fasting plasma glucose results greater than or equal to 126 mg/dL meet the criteria for diagnosis of diabetes. In the absence of unequivocal hyperglycemia, results should be confirmed by repeat testing. In a patient with classic symptoms of hyperglycemia or hyperglycemic crisis, random plasma glucose results greater than or equal to 200 mg/dL meet the criteria for diagnosis of diabetes.Reference: Standards of Medical Care in Diabetes 2016, [place] [employer] Association. Diabetes Care. 2016.39(Suppl 1). Performed By: #### 2 4323-8 ####[facility] [id number] [place] [address] [place] Potassium [Moles/Vol] 4.4 mmol/L Normal 3.7-5.1 [facility] Comment on above: Order Comment: Speci men Type: BLOOD SPECIMENOrdering Facility: [facility] Address: [address] [place] [address] Performed By: #### 2 4323-8 ####[facility] BECKYNCLIA [id number] [place] [address] [place] Protein [Mass/Vol] 6.6 g/dL Normal 6.3-8.0 [facility] Comment on above: Order Comment: Speci men Type: BLOOD SPECIMENOrdering Facility: [facility] Address: [address] [place] [address] Performed By: #### 2 4323-8 ####[facility] SPRINGSNCLIA [id number] [address] [place] Sodium [Moles/Vol] 136 mmol/L Normal 136-144 [facility] Comment on above: Order Comment: Speci men Type: BLOOD SPECIMENOrdering Facility: [facility] Address: [address] [place] [address] Performed By: #### 2 4323-8 ####[facility]INGSNCLIA [id number] [address] [place] Urea nitrogen [Mass/Vol] 11 mg/dL Normal 9-24 [facility] Comment on above: Order Comment: Speci men Type: BLOOD SPECIMENOrdering Facility: [facility] Address: [address] [place] [address] Performed By: #### 2 4323-8 ####[facility] SPRINGSNCLIA [id number] [place] [address] [place] Type AND Screenon 04-07-2025 ABO and Rh group Nom (Bld) Blood group B Rh(D) positive Normal [facility] Comment on above: Order Comment: PRETR ANSFUSION HGB = 7.7 HCT = 22.4 PERFORMED AT [facility] N 08/26/2025 @ 0800 N Y A Performed By: #### B MIRIAN BTS #### [facility] [address] [place], [place], [address] Ab SCREEN GEL Negative Normal [facility] Comment on above: Order Comment: PRETR ANSFUSION HGB = 7.7 HCT = 22.4 [facility] 08/26/2025 @ 0800 N Y A Performed By: #### B MIRIAN BTS #### [facility] [address] [place], [place], [address] BRCon 03-24-2025 RC Normal [facility] Comment on above: Result Comment: [id number] BP RC TRANSFUSED 03/25/25 0834 Performed By: #### B ARNIE VELAS #### [facility] [address] [place], [place], [address] CBC W Auto Differential pane l (Bld)on 03-24-2025 Basophils (Bld) [#/Vol] 10*3/uL Normal <0.11 C [facility] Comment on above: Order Comment: Speci men Type: BLOOD SPECIMENOrdering Facility: [facility] Address: [address] [place] [address] Performed By: #### 5 7021-8 ####[facility] [id number] [place] [address] [place] Basophils/100 WBC (Bld) 0.5 % Normal [facility] Comment on above: Order Comment: Speci men Type: BLOOD SPECIMENOrdering Facility: [facility] Address: [address] [place] [address] Performed By: #### 5 7021-8 ####[facility] [id number] [place] [address] [place] Differential cell count method Nom (Bld) Auto Normal [facility] Comment on above: Order Comment: Speci men Type: BLOOD SPECIMENOrdering Facility: [facility] Address: [address] [place] [address] Performed By: #### 5 7021-8 ####[facility] MILLWNCLIA [id number] [place] [address] [place] Eosinophils (Bld) [#/Vol] 0.04 10*3/uL Normal <0.46 [facility] Comment on above: Order Comment: Speci men Type: BLOOD SPECIMENOrdering Facility: [facility] Address: [address] [place] [address] Performed By: #### 5 7021-8 ####[facility] SPRINGSWGALIA [id number] [place] [address] [place] Eosinophils/100 WBC (Bld) 1.0 % Normal [facility] Comment on above: Order Comment: Speci men Type: BLOOD SPECIMENOrdering Facility: [facility] Address: [address] [place] [address] Performed By: #### 5 7021-8 ####[facility]ALL[facility] [id number] [place] [address] [place] Erythrocyte distribution width (RBC) [Ratio] 18.2 % High 11.5-15.0 [facility] Comment on above: Order Comment: Speci men Type: BLOOD SPECIMENOrdering Facility: [facility] Address: [address] [place] [address] Performed By: #### 5 7021-8 ####[facility] SPRINGSNCLIA [id number] [place] [address] [place] Hematocrit (Bld) [Volume fraction] 25.1 % Low 39.0-51.0 [facility] Comment on above: Order Comment: Speci men Type: BLOOD SPECIMENOrdering Facility: [facility] Address: [address] [place] [address] Performed By: #### 5 7021-8 ####[facility]ITALLIA [id number] [place] [address] [place] Hemoglobin (Bld) [Mass/Vol] 8.3 g/dL Low 13.0-17.0 [facility] Comment on above: Order Comment: Speci men Type: BLOOD SPECIMENOrdering Facility: [facility] Address: [address] [place] [address] Performed By: #### 5 7021-8 ####[facility]ALL[facility] [id number] [place] [address] [place] Immature granulocytes (Bld) [#/Vol] 10*3/uL Normal <0.10 [facility] Comment on above: Order Comment: Speci men Type: BLOOD SPECIMENOrdering Facility: [facility] Address: [address] [place] [address] Performed By: #### 5 7021-8 ####[facility] [id number] [place] [address] [place] Immature granulocytes/100 WBC (Bld) 0.5 % Normal [facility] Comment on above: Order Comment: Speci men Type: BLOOD SPECIMENOrdering Facility: [facility] Address: [address] [place] [address] Performed By: #### 5 7021-8 ####[facility]ITALL[facility] [id number] [place] [address] [place] Lymphocytes (Bld) [#/Vol] 0.92 10*3/uL Low 1.00-4.00 [facility] Comment on above: Order Comment: Speci men Type: BLOOD SPECIMENOrdering Facility: [facility] Address: [address] [place] [address] Performed By: #### 5 7021-8 ####[facility]ALL[facility] [id number] [place] [address] [place] Lymphocytes/100 WBC (Bld) 23.2 % Normal [facility] Comment on above: Order Comment: Speci men Type: BLOOD SPECIMENOrdering Facility: [facility] Address: [address] [place] [address] Performed By: #### 5 7021-8 ####[facility] SHERRIMARIONNCSAURABH [id number] [place] [address] [place] MCH (RBC) [Entitic mass] 30.9 pg Normal 26.0-34.0 [facility] Comment on above: Order Comment: Speci men Type: BLOOD SPECIMENOrdering Facility: [facility] Address: [address] [place] [address] Performed By: #### 5 7021-8 ####[facility] [id number] [place] [address] [place] MCHC (RBC) [Mass/Vol] 33.1 g/dL Normal 30.5-36.0 [facility] Comment on above: Order Comment: Speci men Type: BLOOD SPECIMENOrdering Facility: [facility] Address: [address] [place] [address] Performed By: #### 5 7021-8 ####[facility] SPRINGSNCA [id number] [address] [place] MCV (RBC) [Entitic vol] 93.3 fL Normal 80.0-100.0 C [facility] Comment on above: Order Comment: Speci men Type: BLOOD SPECIMENOrdering Facility: [facility] Address: [address] [place] [address] Performed By: #### 5 7021-8 ####[facility] SPRINGSNCA [id number] [place] [address] [place] Monocytes (Bld) [#/Vol] 0.21 10*3/uL Normal <0.87 [facility] Comment on above: Order Comment: Speci men Type: BLOOD SPECIMENOrdering Facility: [facility] Address: [address] [place] [address] Performed By: #### 5 7021-8 ####[facility] SPRINGSNCLIA [id number] [place] [address] [place] Monocytes/100 WBC (Bld) 5.3 % Normal [facility] Comment on above: Order Comment: Speci men Type: BLOOD SPECIMENOrdering Facility: [facility] Address: [address] [place] [address] Performed By: #### 5 7021-8 ####[facility]INGSNCLIA [id number] [place] [address] [place] Neutrophils (Bld) [#/Vol] 2.76 10*3/uL Normal 1.45-7.50 [facility] Comment on above: Order Comment: Speci men Type: BLOOD SPECIMENOrdering Facility: [facility] Address: [address] [place] [address] Performed By: #### 5 7021-8 ####[facility]ITAL[facility] [id number] [place] [address] [place] Neutrophils/100 WBC (Bld) 69.5 % Normal [facility] Comment on above: Order Comment: Speci men Type: BLOOD SPECIMENOrdering Facility: [facility] Address: [address] [place] [address] Performed By: #### 5 7021-8 ####[facility] [id number] [place] [address] [place] Nucleated RBC (Bld) [#/Vol] 10*3/uL Normal <0.01 [facility] Comment on above: Order Comment: Speci men Type: BLOOD SPECIMENOrdering Facility: [facility] Address: [address] [place] [address] Performed By: #### 5 7021-8 ####[facility] [id number] [place] [address] [place] Nucleated RBC/100 WBC (Bld) [Ratio] 0.0 /100 WBC Normal [facility] Comment on above: Order Comment: Speci men Type: BLOOD SPECIMENOrdering Facility: [facility] Address: [address] [place] [address] Performed By: #### 5 7021-8 ####[facility] SHERRIMARIONLUISITO [id number] [place] [address] [place] Platelet mean volume (Bld) [Entitic vol] 10.8 fL Normal 9.0-12.7 [facility] Comment on above: Order Comment: Speci men Type: BLOOD SPECIMENOrdering Facility: [facility] Address: [address] [place] [address] Performed By: #### 5 7021-8 ####[facility] [id number] [place] [address] [place] Platelets (Bld) [#/Vol] 134 10*3/uL Low 150-400 [facility] Comment on above: Order Comment: Speci men Type: BLOOD SPECIMENOrdering Facility: [facility] Address: [address] [place] [address] Performed By: #### 5 7021-8 ####[facility] SPRINGSROCKYSAURABH [id number] [place] [address] [place] RBC (Bld) [#/Vol] 2.69 10*6/uL Low 4.20-6.00 [facility] Comment on above: Order Comment: Speci men Type: BLOOD SPECIMENOrdering Facility: [facility] Address: [address] [place] [address] Performed By: #### 5 7021-8 ####[facility] SPRINGSNCLIA [id number] [place] [address] [place] WBC (Bld) [#/Vol] 3.97 10*3/uL Normal 3.70-11.00 [facility] Comment on above: Order Comment: Speci men Type: BLOOD SPECIMENOrdering Facility: [facility] Address: [address] [place] [address] Performed By: #### 5 7021-8 ####[facility] [id number] [place] [address] [place] CNPNon 03-24-2025 CNPN Normal [facility] Type AND Screenon 03-24-2025 ABO and Rh group Nom (Bld) Blood group B Rh(D) positive Normal [facility] Comment on above: Order Comment: PRETR ANSFUSION HGB = 7.7 HCT = 22.4 [facility] 08/26/2025 @ 0800 N Y A Performed By: #### B RC, BTS #### [facility] [address] [place], [address] BRCon 03-10-2025 RC Normal [facility] Comment on above: Result Comment: [id number] OP RC TRANSFUSED 03/11/25 1105 [id number] OP RC TRANSFUSED 03/11/25 0829 Performed By: #### B TS, BR #### [facility] [address] [place], [address] CBC W Auto Differential pane l (Bld)on 03-10-2025 Basophils (Bld) [#/Vol] 10*3/uL Normal <0.11 C [facility] Comment on above: Order Comment: Speci men Type: BLOOD SPECIMENOrdering Facility: [facility] Address: [place] [address] Performed By: #### 5 7021-8 ####[facility] [id number] [place] [address] [place] Basophils/100 WBC (Bld) 0.3 % Normal C [facility] Comment on above: Order Comment: Speci men Type: BLOOD SPECIMENOrdering Facility: [facility] Address: [address] [place] [address] Performed By: #### 5 7021-8 ####[facility] BECKYELLIEA [id number] [place] [address] [place] Differential cell count method Nom (Bld) Auto Normal [facility] Comment on above: Order Comment: Speci men Type: BLOOD SPECIMENOrdering Facility: [facility] Address: [address] [place] [address] Performed By: #### 5 7021-8 ####[facility] SHERRIJEFEA [id number] [place] [address] [place] Eosinophils (Bld) [#/Vol] 0.07 10*3/uL Normal <0.46 [facility] Comment on above: Order Comment: Speci men Type: BLOOD SPECIMENOrdering Facility: [facility] Address: [address] [place] [address] Performed By: #### 5 7021-8 ####[facility] SHERRIMARIONELLIEA [id number] [place] [address] [place] Eosinophils/100 WBC (Bld) 2.0 % Normal [facility] Comment on above: Order Comment: Speci men Type: BLOOD SPECIMENOrdering Facility: [facility] Address: [address] [place] [address] Performed By: #### 5 7021-8 ####[facility] SHERRIVidhyaROCKYLIA [id number] [place] [address] [place] Erythrocyte distribution width (RBC) [Ratio] 17.7 % High 11.5-15.0 [facility] Comment on above: Order Comment: Speci men Type: BLOOD SPECIMENOrdering Facility: [facility] Address: [address] [place] [address] Performed By: #### 5 7021-8 ####[facility] [id number] [place] [address] [place] Hematocrit (Bld) [Volume fraction] 25.0 % Low 39.0-51.0 [facility] Comment on above: Order Comment: Speci men Type: BLOOD SPECIMENOrdering Facility: [facility] Address: [address] [place] [address] Performed By: #### 5 7021-8 ####[facility] [id number] [place] [address] [place] Hemoglobin (Bld) [Mass/Vol] 8.2 g/dL Low 13.0-17.0 [facility] Comment on above: Order Comment: Speci men Type: BLOOD SPECIMENOrdering Facility: [facility] Address: [address] [place] [address] Performed By: #### 5 7021-8 ####[facility] [id number] [place] [address] [place] Immature granulocytes (Bld) [#/Vol] 10*3/uL Normal <0.10 [facility] Comment on above: Order Comment: Speci men Type: BLOOD SPECIMENOrdering Facility: [facility] Address: [address] [place] [address] Performed By: #### 5 7021-8 ####[facility] [id number] [place] [address] [place] Immature granulocytes/100 WBC (Bld) 0.6 % Normal [facility] Comment on above: Order Comment: Speci men Type: BLOOD SPECIMENOrdering Facility: [facility] Address: [address] [place] [address] Performed By: #### 5 7021-8 ####[facility]INGSNCLIA [id number] [place] [address] [place] Lymphocytes (Bld) [#/Vol] 0.67 10*3/uL Low 1.00-4.00 [facility] Comment on above: Order Comment: Speci men Type: BLOOD SPECIMENOrdering Facility: [facility] Address: [address] [place] [address] Performed By: #### 5 7021-8 ####[facility] [id number] [place] [address] [place] Lymphocytes/100 WBC (Bld) 18.8 % Normal [facility] Comment on above: Order Comment: Speci men Type: BLOOD SPECIMENOrdering Facility: [facility] Address: [address] [place] [address] Performed By: #### 5 7021-8 ####[facility] [id number] [place] [address] [place] MCH (RBC) [Entitic mass] 31.2 pg Normal 26.0-34.0 [facility] Comment on above: Order Comment: Speci men Type: BLOOD SPECIMENOrdering Facility: [facility] Address: [address] [place] [address] Performed By: #### 5 7021-8 ####[facility] [id number] [place] [address] [place] MCHC (RBC) [Mass/Vol] 32.8 g/dL Normal 30.5-36.0 [facility] Comment on above: Order Comment: Speci men Type: BLOOD SPECIMENOrdering Facility: [facility] Address: [address] [place] [address] Performed By: #### 5 7021-8 ####[facility] [id number] [place] [address] [place] MCV (RBC) [Entitic vol] 95.1 fL Normal 80.0-100.0 C [facility] Comment on above: Order Comment: Speci men Type: BLOOD SPECIMENOrdering Facility: [facility] Address: [address] [place] [address] Performed By: #### 5 7021-8 ####[facility] MILLTOWNCLIA [id number] [place] [address] [place] Monocytes (Bld) [#/Vol] 0.13 10*3/uL Normal <0.87 [facility] Comment on above: Order Comment: Speci men Type: BLOOD SPECIMENOrdering Facility: [facility] Address: [address] [place] [address] Performed By: #### 5 7021-8 ####[facility] SPRINGSWNCLIA [id number] [place] [address] [place] Monocytes/100 WBC (Bld) 3.6 % Normal [facility] Comment on above: Order Comment: Speci men Type: BLOOD SPECIMENOrdering Facility: [facility] Address: [address] [place] [address] Performed By: #### 5 7021-8 ####[facility] SPRINGSWNCLIA [id number] [place] [address] [place] Neutrophils (Bld) [#/Vol] 2.67 10*3/uL Normal 1.45-7.50 [facility] Comment on above: Order Comment: Speci men Type: BLOOD SPECIMENOrdering Facility: [facility] Address: [address] [place] [address] Performed By: #### 5 7021-8 ####[facility] MILLTOWNCLIA [id number] [place] [address] [place] Neutrophils/100 WBC (Bld) 74.7 % Normal [facility] Comment on above: Order Comment: Speci men Type: BLOOD SPECIMENOrdering Facility: [facility] Address: [address] [place] [address] Performed By: #### 5 7021-8 ####[facility] [id number] [place] [address] [place] Nucleated RBC (Bld) [#/Vol] 10*3/uL Normal <0.01 [facility] Comment on above: Order Comment: Speci men Type: BLOOD SPECIMENOrdering Facility: [facility] Address: [address] [place] [address] Performed By: #### 5 7021-8 ####[facility] [id number] [place] [address] [place] Nucleated RBC/100 WBC (Bld) [Ratio] 0.0 /100 WBC Normal [facility] Comment on above: Order Comment: Speci men Type: BLOOD SPECIMENOrdering Facility: [facility] Address: [address] [place] [address] Performed By: #### 5 7021-8 ####[facility] [id number] [place] [address] [place] Platelet mean volume (Bld) [Entitic vol] 9.8 fL Normal 9.0-12.7 [facility] Comment on above: Order Comment: Speci men Type: BLOOD SPECIMENOrdering Facility: [facility] Address: [address] [place] [address] Performed By: #### 5 7021-8 ####[facility] [id number] [place] [address] [place] Platelets (Bld) [#/Vol] 122 10*3/uL Low 150-400 [facility] Comment on above: Order Comment: Speci men Type: BLOOD SPECIMENOrdering Facility: [facility] Address: [address] [place] [address] Performed By: #### 5 7021-8 ####[facility] [id number] [place] [address] [place] RBC (Bld) [#/Vol] 2.63 10*6/uL Low 4.20-6.00 [facility] Comment on above: Order Comment: Speci men Type: BLOOD SPECIMENOrdering Facility: [facility] Address: [address] [place] [address] Performed By: #### 5 7021-8 ####[facility] [id number] [place] [address] [place] WBC (Bld) [#/Vol] 3.57 10*3/uL Low 3.70-11.00 [facility] Comment on above: Order Comment: Speci men Type: BLOOD SPECIMENOrdering Facility: [facility] Address: [address] [place] [address] Performed By: #### 5 7021-8 ####[facility] [id number] [place] [address] [place] CNPNon 03-10-2025 CNPN Normal [facility] Type AND Screenon 03-10-2025 Ab SCREEN GEL Negative Normal [facility] Comment on above: Order Comment: N 03/11/2025 N Y A Performed By: #### DOMONIQUE CISSE #### [facility] [address] [place], [place], [address] CNOVon 03-04-2025 CNOV Normal [facility] BRCon 02-24-2025 RC Normal [facility] Comment on above: Result Comment: [id number] BN RC TRANSFUSED 02/25/25 0845 [id number] BN RC TRANSFUSED 02/25/25 1112 Performed By: #### DOMONIQUE CISSE #### [facility] [address] [place], [place], [address] CBC W Auto Differential pane l (Bld)on 02-24-2025 Basophils (Bld) [#/Vol] 10*3/uL Normal <0.11 C [facility] Comment on above: Order Comment: Speci men Type: BLOOD SPECIMENOrdering Facility: [facility] Address: [address] [place] [address] Performed By: #### 5 7021-8 ####[facility] MILLWNCLIA [id number] [place] [address] [place] Basophils/100 WBC (Bld) 0.3 % Normal [facility] Comment on above: Order Comment: Speci men Type: BLOOD SPECIMENOrdering Facility: [facility] Address: [address] [place] [address] Performed By: #### 5 7021-8 ####[facility] [id number] [place] [address] [place] Differential cell count method Nom (Bld) Auto Normal [facility] Comment on above: Order Comment: Speci men Type: BLOOD SPECIMENOrdering Facility: [facility] Address: [address] [place] [address] Performed By: #### 5 7021-8 ####[facility] [id number] [place] [address] [place] Eosinophils (Bld) [#/Vol] 0.03 10*3/uL Normal <0.46 [facility] Comment on above: Order Comment: Speci men Type: BLOOD SPECIMENOrdering Facility: [facility] Address: [address] [place] [address] Performed By: #### 5 7021-8 ####[facility] MILLWNCLIA [id number] [place] [address] [place] Eosinophils/100 WBC (Bld) 0.9 % Normal [facility] Comment on above: Order Comment: Speci men Type: BLOOD SPECIMENOrdering Facility: [facility] Address: [address] [place] [address] Performed By: #### 5 7021-8 ####[facility] MILLWNCLIA [id number] [place] [address] [place] Erythrocyte distribution width (RBC) [Ratio] 18.9 % High 11.5-15.0 [facility] Comment on above: Order Comment: Speci men Type: BLOOD SPECIMENOrdering Facility: [facility] Address: [address] [place] [address] Performed By: #### 5 7021-8 ####[facility]INGSLUISITO [id number] [place] [address] [place] Hematocrit (Bld) [Volume fraction] 24.6 % Low 39.0-51.0 [facility] Comment on above: Order Comment: Speci men Type: BLOOD SPECIMENOrdering Facility: [facility] Address: [address] [place] [address] Performed By: #### 5 7021-8 ####[facility]INGSLUISIT[facility] [id number] [place] [address] [place] Hemoglobin (Bld) [Mass/Vol] 8.2 g/dL Low 13.0-17.0 [facility] Comment on above: Order Comment: Speci men Type: BLOOD SPECIMENOrdering Facility: [facility] Address: [address] [place] [address] Performed By: #### 5 7021-8 ####[facility]INGSLUISIT[facility] [id number] [place] [address] [place] Immature granulocytes (Bld) [#/Vol] 10*3/uL Normal <0.10 [facility] Comment on above: Order Comment: Speci men Type: BLOOD SPECIMENOrdering Facility: [facility] Address: [address] [place] [address] Performed By: #### 5 7021-8 ####[facility] SPRINGSNCLIDarrick [id number] [place] [address] [place] Immature granulocytes/100 WBC (Bld) 0.6 % Normal [facility] Comment on above: Order Comment: Speci men Type: BLOOD SPECIMENOrdering Facility: [facility] Address: [address] [place] [address] Performed By: #### 5 7021-8 ####[facility] [id number] [place] [address] [place] Lymphocytes (Bld) [#/Vol] 0.63 10*3/uL Low 1.00-4.00 [facility] Comment on above: Order Comment: Speci men Type: BLOOD SPECIMENOrdering Facility: [facility] Address: [address] [place] [address] Performed By: #### 5 7021-8 ####[facility] [id number] [place] [address] [place] Lymphocytes/100 WBC (Bld) 19.3 % Normal [facility] Comment on above: Order Comment: Speci men Type: BLOOD SPECIMENOrdering Facility: [facility] Address: [address] [place] [address] Performed By: #### 5 7021-8 ####[facility] [id number] [place] [address] [place] MCH (RBC) [Entitic mass] 31.3 pg Normal 26.0-34.0 [facility] Comment on above: Order Comment: Speci men Type: BLOOD SPECIMENOrdering Facility: [facility] Address: [address] [place] [address] Performed By: #### 5 7021-8 ####[facility] [id number] [place] [address] [place] MCHC (RBC) [Mass/Vol] 33.3 g/dL Normal 30.5-36.0 [facility] Comment on above: Order Comment: Speci men Type: BLOOD SPECIMENOrdering Facility: [facility] Address: [address] [place] [address] Performed By: #### 5 7021-8 ####[facility] SHERRIJENNILIA [id number] [place] [address] [place] MCV (RBC) [Entitic vol] 93.9 fL Normal 80.0-100.0 C [facility] Comment on above: Order Comment: Speci men Type: BLOOD SPECIMENOrdering Facility: [facility] Address: [address] [place] [address] Performed By: #### 5 7021-8 ####[facility]INGSNCL[facility] [id number] [place] [address] [place] Monocytes (Bld) [#/Vol] 0.14 10*3/uL Normal <0.87 [facility] Comment on above: Order Comment: Speci men Type: BLOOD SPECIMENOrdering Facility: [facility] Address: [address] [place] [address] Performed By: #### 5 7021-8 ####[facility] [id number] [place] [address] [place] Monocytes/100 WBC (Bld) 4.3 % Normal C [facility] Comment on above: Order Comment: Speci men Type: BLOOD SPECIMENOrdering Facility: [facility] Address: [address] [place] [address] Performed By: #### 5 7021-8 ####[facility] [id number] [place] [address] [place] Neutrophils (Bld) [#/Vol] 2.44 10*3/uL Normal 1.45-7.50 [facility] Comment on above: Order Comment: Speci men Type: BLOOD SPECIMENOrdering Facility: [facility] Address: [address] [place] [address] Performed By: #### 5 7021-8 ####[facility] [id number] [place] [address] [place] Neutrophils/100 WBC (Bld) 74.6 % Normal [facility] Comment on above: Order Comment: Speci men Type: BLOOD SPECIMENOrdering Facility: [facility] Address: [address] [place] [address] Performed By: #### 5 7021-8 ####[facility] [id number] [place] [address] [place] Nucleated RBC (Bld) [#/Vol] 10*3/uL Normal <0.01 [facility] Comment on above: Order Comment: Speci men Type: BLOOD SPECIMENOrdering Facility: [facility] Address: [address] [place] [address] Performed By: #### 5 7021-8 ####[facility] [id number] [place] [address] [place] Nucleated RBC/100 WBC (Bld) [Ratio] 0.0 /100 WBC Normal [facility] Comment on above: Order Comment: Speci men Type: BLOOD SPECIMENOrdering Facility: [facility] Address: [address] [place] [address] Performed By: #### 5 7021-8 ####[facility] [id number] [place] [address] [place] Platelet mean volume (Bld) [Entitic vol] 10.6 fL Normal 9.0-12.7 [facility] Comment on above: Order Comment: Speci men Type: BLOOD SPECIMENOrdering Facility: [facility] Address: [address] [place] [address] Performed By: #### 5 7021-8 ####[facility] [id number] [place] [address] [place] Platelets (Bld) [#/Vol] 134 10*3/uL Low 150-400 [facility] Comment on above: Order Comment: Speci men Type: BLOOD SPECIMENOrdering Facility: [facility] Address: [address] [place] [address] Performed By: #### 5 7021-8 ####[facility] SHERRITOWNCLIA [id number] [place] [address] [place] RBC (Bld) [#/Vol] 2.62 10*6/uL Low 4.20-6.00 [facility] Comment on above: Order Comment: Speci men Type: BLOOD SPECIMENOrdering Facility: [facility] Address: [address] [place] [address] Performed By: #### 5 7021-8 ####[facility]INGSNCL[facility] [id number] [place] [address] [place] WBC (Bld) [#/Vol] 3.27 10*3/uL Low 3.70-11.00 [facility] Comment on above: Order Comment: Speci men Type: BLOOD SPECIMENOrdering Facility: [facility] Address: [address] [place] [address] Performed By: #### 5 7021-8 ####[facility]SNCL[facility] [id number] [place] [address] [place] CNOVSPon 02-24-2025 CNOVSP Normal [facility] CNPNon 02-24-2025 CNPN Normal [facility] Comprehensive metabolic 2000 panelon 02-24-2025 Albumin [Mass/Vol] 4.5 g/dL Normal 3.9-4.9 [facility] Comment on above: Order Comment: Speci men Type: BLOOD SPECIMENOrdering Facility: [facility] Address: [address] [place] [address] Performed By: #### 2 4323-8 ####[facility] SPRINGSWNCLIA [id number] [place] [address] [place] ALP [Catalytic activity/Vol] 75 U/L Normal 38-113 [facility] Comment on above: Order Comment: Speci men Type: BLOOD SPECIMENOrdering Facility: [facility] Address: [address] [place] [address] Performed By: #### 2 4323-8 ####[facility] [id number] [place] [address] [place] ALT [Catalytic activity/Vol] 61 U/L High 10-54 [facility] Comment on above: Order Comment: Speci men Type: BLOOD SPECIMENOrdering Facility: [facility] Address: [address] [place] [address] Performed By: #### 2 4323-8 ####[facility] [id number] [place] [address] [place] Anion gap [Moles/Vol] 10 mmol/L Normal 8-15 [facility] Comment on above: Order Comment: Speci men Type: BLOOD SPECIMENOrdering Facility: [facility] Address: [address] [place] [address] Performed By: #### 2 4323-8 ####[facility] [id number] [place] [address] [place] AST [Catalytic activity/Vol] 42 U/L High 14-40 [facility] Comment on above: Order Comment: Speci men Type: BLOOD SPECIMENOrdering Facility: [facility] Address: [address] [place] [address] Performed By: #### 2 4323-8 ####[facility] [id number] [place] [address] [place] Bilirubin [Mass/Vol] 1.5 mg/dL High 0.2-1.3 [facility] Comment on above: Order Comment: Speci men Type: BLOOD SPECIMENOrdering Facility: [facility] Address: [address] [place] [address] Performed By: #### 2 4323-8 ####[facility] MILLTOWNCLIA [id number] [place] [address] [place] Calcium [Mass/Vol] 9.8 mg/dL Normal 8.5-10.2 [facility] Comment on above: Order Comment: Speci men Type: BLOOD SPECIMENOrdering Facility: [facility] Address: [address] [place] [address] Performed By: #### 2 4323-8 ####[facility] MILLWNCLIA [id number] [place] [address] [place] Chloride [Moles/Vol] 101 mmol/L Normal 98-107 [facility] Comment on above: Order Comment: Speci men Type: BLOOD SPECIMENOrdering Facility: [facility] Address: [address] [place] [address] Performed By: #### 2 4323-8 ####[facility] SPRINGSWNCLIA [id number] [place] [address] [place] CO2 [Moles/Vol] 26 mmol/L Normal 22-30 [facility] Comment on above: Order Comment: Speci men Type: BLOOD SPECIMENOrdering Facility: [facility] Address: [address] [place] [address] Performed By: #### 2 4323-8 ####[facility] MILLTOWNCLIA [id number] [place] [address] [place] Creatinine [Mass/Vol] 0.71 mg/dL Low 0.73-1.22 [facility] Comment on above: Order Comment: Speci men Type: BLOOD SPECIMENOrdering Facility: [facility] Address: [address] [place] [address] Performed By: #### 2 4323-8 ####[facility] MILLTOWNCLIA [id number] [place] [address] [place] Creatinine and Glomerular filtration rate.predicted panel (S/P/Bld) 93 mL/min/1.73m??? Normal >=60 [facility] Comment on above: Order Comment: Gilma ojeda Type: BLOOD SPECIMENOrdering Facility: [facility] Address: [address] [place] [address] Result Comment: Lilly mated Glomerular Filtration Rate (eGFR) is calculated using the 2020 CKD-EPI creatinine equation. This equation utilizes serum creatinine, sex, and age as parameters. The creatinine assay has traceable calibration to isotope dilution-mass spectrometry. Refer to KDIGO guidelines for clinical interpretation. In patients with unstable renal function, e.g. those with acute kidney injury, the eGFR may not accurately reflect actual GFR. Performed By: #### 2 4323-8 ####[facility] [id number] [place] [address] [place] Glucose [Mass/Vol] 156 mg/dL High 74-99 [facility] Comment on above: Order Comment: Gilma ojeda Type: BLOOD SPECIMENOrdering Facility: [facility] Address: [address] [place] [address] Result Comment: The [place] [employer] Association (ADA) provides guidance for cutoff values for fasting glucose and random glucose. The ADA defines fasting as no caloric intake for at least 8 hours. Fasting plasma glucose results between 100 to 125 mg/dL indicate increased risk for diabetes (prediabetes).Fasting plasma glucose results greater than or equal to 126 mg/dL meet the criteria for diagnosis of diabetes. In the absence of unequivocal hyperglycemia, results should be confirmed by repeat testing. In a patient with classic symptoms of hyperglycemia or hyperglycemic crisis, random plasma glucose results greater than or equal to 200 mg/dL meet the criteria for diagnosis of diabetes.Reference: Standards of Medical Care in Diabetes 2016, [place] [employer] Association. Diabetes Care. 2016.39(Suppl 1). Performed By: #### 2 4323-8 ####[facility] [id number] [place] [address] [place] Potassium [Moles/Vol] 4.0 mmol/L Normal 3.7-5.1 [facility] Comment on above: Order Comment: Speci men Type: BLOOD SPECIMENOrdering Facility: [facility] Address: [address] [place] [address] Performed By: #### 2 4323-8 ####[facility] SPR[facility]SWNCLIA [id number] [place] [address] [place] Protein [Mass/Vol] 6.6 g/dL Normal 6.3-8.0 [facility] Comment on above: Order Comment: Speci men Type: BLOOD SPECIMENOrdering Facility: [facility] Address: [address] [place] [address] Performed By: #### 2 4323-8 ####[facility] SPRINGSNCA [id number] [place] [address] [place] Sodium [Moles/Vol] 137 mmol/L Normal 136-144 [facility] Comment on above: Order Comment: Speci men Type: BLOOD SPECIMENOrdering Facility: [facility] Address: [address] [place] [address] Performed By: #### 2 4323-8 ####[facility]INGSNCL[facility] [id number] [place] [address] [place] Urea nitrogen [Mass/Vol] 12 mg/dL Normal 9-24 [facility] Comment on above: Order Comment: Speci men Type: BLOOD SPECIMENOrdering Facility: [facility] Address: [address] [place] [address] Performed By: #### 2 4323-8 ####[facility]INGSNCL[facility] [id number] [place] [address] [place] Ferritin SerPl-mCncon 2024 Ferritin [Mass/Vol] 80120.0 ng/mL High 30.3-565.7 [facility] Comment on above: Order Comment: Speci men Type: BLOOD SPECIMENOrdering Facility: [facility] Address: [address] [place] [address] Performed By: #### 3 016-3, 2-9, 4-8, 6-4 ####[facility] LABCLIA [id number] [place] [address] [place] Folate SerPl-mCncon 02-25-20 25 Folate [Mass/Vol] ng/mL Normal >4.7 [facility] Comment on above: Order Comment: Speci men Type: BLOOD SPECIMENOrdering Facility: [facility] Address: [address] [place] [address] Result Comment: A re sult of > 20 ng/mL is not necessarily indicative of a pathologic or treatable condition: it reflects a limitation of the test methodology.Assay reference range: 4.8 to 24.2 ng/mL. Suitable for detection of folate deficiency.Reference:Folate III (Folate III) [package insert V 1.0 [place]]. [facility], [place], [place]: September 2015. Performed By: #### 3 016-3, 2-9, 4-8, 6-4 ####[facility] LABIA [id number] [place] [address] [place] Methylmalonate SerPl-sCncon 02-24-2025 Methylmalonate [Moles/Vol] 0.09 umol/L Normal <=0.40 [facility] Comment on above: Order Comment: Speci [facility] Type: BLOOD SPECIMENOrdering Facility: [facility] Address: [address] [place] [address] Result Comment: This test was developed, and its performance characteristics determined by the [facility] Department of Pathology and Laboratory Medicine. It has not been cleared or approved by the FDA. The [facility] Department of Pathology and Laboratory Medicine is regulated under CLIA as qualified to perform high-complexity testing. This test is used for clinical purposes. It should not be regarded as investigational or for research. Performed By: #### 1 3964-2 ####[facility] LABCLIA [id number] [place] [address] [place] TSH SerPl-aCncon 02-24-2025 TSH Qn 4.180 m[IU]/L Normal 0.270-4.200 [facility] Comment on above: Order Comment: Speci men Type: BLOOD SPECIMENOrdering Facility: [facility] Address: [address] [place] [address] Performed By: #### 3 016-3, 2-9, 2284-8, 2276-4 ####[facility] LABCLIA [id number] [place] [id number] [place] Type AND Screenon 02-24-2025 Ab SCREEN GEL Negative Normal [facility] Comment on above: Order Comment: PRETR ANSFUSION HGB = 8.2 HCT = 24.6 PERFORMED AT [place] [address] @0830NYA Performed By: #### B RC, BTS #### [facility] [address] [place], [place], [address] Vit B12 SerPl-mCncon 025 Cobalamin (Vitamin B12) [Mass/Vol] 523 pg/mL Normal 232-1245 [facility] Comment on above: Order Comment: Speci men Type: BLOOD SPECIMENOrdering Facility: [facility] Address: [address] [place] [address] Performed By: #### 3 016-3, 2-9, 2284-8, 2276-4 ####[facility] LABCL[facility] [id number] [place] [id number] [place] CNPNon 02-11-2025 CNPN Normal [facility] Abdomen/Pelvis without Conto n 02-10-2025 Abdomen/Pelvis without Cont [facility] Imaging Services [address] [place], [place] [id number] Abdomen/Pelvis without Cont MR#: [id number] Acct: [id number] Name: LORETA HURST Rep #: [id number] : 1945 M 79 From: Bernadine Silva nd, MD PCP: Gladys Da Silva, [employer] Status: REG ER Study: Abdomen/Pelvis without Cont Date of Exam: 02/01 Exam# [id number] Ordering Dr: Esau Brothers DO PROCEDURE: ABDOMEN/PELVIS WITHOUT CONT 02/10/2025 REASON FOR EXAM: 79-year-old male, DYSURIA TECHNIQUE: Abdomen and pelvis CT without intravenous contrast. Noncontrast technique limits evaluation of the abdominal and pelvic viscera. Coronal and Sagittal reconstruction series were provided. One or more dose reduction techniques were used (e.g., Automated exposure control, adjustment of the mA and/or kV according to patient size, use of iterative reconstruction technique). PATIENT PREPARATION: Per protocol ORAL CONTRAST TYPE: None. COMPARISON: None. FINDINGS: Lung bases: Tree-in-bud nodularity within the left lower lobe. The heart is normal in size with coronary artery, mitral annular and aortic valvular calcifications. Liver: Hepatomegaly with diffusely increased hepatic density. Gallbladder: Mild dependent layering sludge within the gallbladder. Spleen: Mild splenomegaly. Pancreas: Unremarkable. Adrenals: Punctate hyperdensity within the left adrenal gland. Unremarkable right adrenal gland. Kidneys: No hydronephrosis or nephrolithiasis. Bilateral renal cysts and additional hypodensities, several of which demonstrate peripheral calcification, compatible with remote hemorrhage. No hydronephrosis or nephrolithiasis. Focal area of soft tissue stranding and dilation within the mid right ureter, at the approximate level of the UPJ (series 2, image 104 for example). Bladder: Moderately distended with mild diffuse bladder wall thickening. Reproductive Organs: Dystrophic calcifications within the prostate. Bowel: The bowel loops are normal in caliber. No ascites or pneumoperitoneum. Normal appendix. Lymph nodes: Prominent periportal nodes. No suspicious lymphadenopathy. Vasculature: Moderate calcific plaque of the aortoiliac vessels. Bones: Thoracolumbar spondylosis. No aggressive osseous lesions. CT/Abdomen/Pelvis without Cont IMPRESSION: 1. Focal area of soft tissue stranding and dilation of the right ureter at the right UPJ, which is indeterminate in etiology based on noncontrast examination. Recommend nonemergent outpatient CT abdomen pelvis with venous and delayed phase imaging for further evaluation to exclude neoplasm. 2. No hydronephrosis or nephrolithiasis. 3. Hepatosplenomegaly with diffusely increased hepatic density, most compatible with hemochromatosis. Additional considerations include Marquez's disease or amiodarone use. Clinical correlation recommended. 4. Mild diffuse bladder wall thickening, which may be secondary to developing UTI. Correlation with urinalysis recommended. 5. Tree-in-bud nodularity within the left lower lobe, likely infectious/inflammatory etiology such as aspiration pneumonitis. Reading Location: [id number] CC: PAWAN Da Silva; Dr. Esau Brothers DO Warp Dresser: Signed Normal [facility] Absolute lymphocyte countOrd ered By: Esau Brothers on 02-10-2025 Lymphocytes Auto (Unsp spec) [#/Vol] 0.57 10*3/uL Low 0.83-4.51 [facility] Absolute neutrophil countOrd ered By: Esau Brothers on 02-10-2025 Neutrophils (Bld) [#/Vol] 2.6 10*3/uL 2.0-7.7 [facility] Anion gap in Serum or Plasma Ordered By: Esau Brothers on 02-10-2025 Anion gap [Moles/Vol] 9 mmol/L 5-15 [facility] Automated lymphocyte count a s percentage of total leukocytesOrdered By: Esau Brothers on 02-10-2025 Lymphocytes/100 WBC Auto (Unsp spec) 16.4 % Low 19-41 [facility] BRCon 02-10-2025 RC Normal [facility] Comment on above: Result Comment: [id number] RC TRANSFUSED 02/11/25 0827 [id number] BN RC TRANSFUSED 02/11/25 1038 Performed By: #### B , BTS #### [facility] Laboratory [address] [place], [address] BUN/creatinine ratioOrdered By: Esau Brothers on 02-10-2025 Urea nitrogen/Creatinine [Mass ratio] 14.7 mg/mg 10-20 [facility] Basic Metabolic Profile (BMP )on 02-10-2025 BUN/CRE 14.7 RATIO Normal 10-20 [facility] Comment on above: Performed By: #### B TS #### [facility] Laboratory [address] [place], [address] Calcium [Mass/Vol] 9.3 mg/dL Normal 7.6-11.0 [facility] Comment on above: Performed By: #### B TS #### [facility] [address] [place], [address] Chloride [Moles/Vol] 103 mmol/L Normal 98-108 [facility] Comment on above: Performed By: #### B TS #### [facility] [address] [place], [address] CO2 [Moles/Vol] 26.7 mmol/L Normal 21.0-32.0 [facility] Comment on above: Performed By: #### B TS #### [facility] [address] [place], [address] Creatinine [Mass/Vol] 0.71 mg/dL Normal 0.70-1.20 [facility] Comment on above: Performed By: #### B TS #### [facility] [address] [place], [address] ECRCL 77.15 ml/min Normal 50-250 [facility] Comment on above: Performed By: #### B TS #### [facility] [address] [place], [address] GAP 9 Normal 5-15 [facility] Comment on above: Performed By: #### B TS #### [facility] [address] [place], [address] GFR/1.73 sq M.predicted among non-blacks MDRD (S/P/Bld) [Vol rate/Area] 93 mL/min/{1.73_m2} Normal >60 [facility] Comment on above: Result Comment: mL/m in/1.73m2 CKD-EPI Creatinine Equation (2020) Performed By: #### B TS #### [facility] [address] [place], [address] Glucose [Mass/Vol] 104 mg/dL High 70-99 [facility] Comment on above: Performed By: #### B TS #### [facility] [address] [place], [address] Potassium [Moles/Vol] 4.4 mmol/L Normal 3.3-5.1 [facility] Comment on above: Performed By: #### B TS #### [facility] [address] [place], [address] Sodium [Moles/Vol] 139 mmol/L Normal 133-145 [facility] Comment on above: Performed By: #### B TS #### [facility] [address] [place], [address] Urea nitrogen [Mass/Vol] 10 mg/dL Normal 4-19 [facility] Comment on above: Performed By: #### B TS #### [facility] [address] [place], [address] Basophil percentageOrdered B y: Esau Brothers on 02-10-2025 Basophils/100 WBC (Bld) 0.3 % 0-1 [facility] Bilirubin Test strip Ql (U)O rdered By: Esau Brothers on 02-10-2025 Bilirubin Ql (U) Negative Negative [facility] Bilirubin directOrdered By: Abrahan Dueñas on 02-10-2025 Bilirubin.direct [Mass/Vol] 0.57 mg/dL High 0.00-0.30 [facility] Bilirubin, totalOrdered By: Abrahan Dueñas on 02-10-2025 Bilirubin [Mass/Vol] 1.19 mg/dL 0.00-1.30 [facility] CBC W/Diff, Automatedon 04-0 3-2024 Absolute Lymph 0.57 X10 3/uL Low 0.83-4.51 [facility] Comment on above: Performed By: #### Benito MENDES BR #### [facility] Laboratory [address] [place], [address] Absolute Neut 2.6 X10 3/uL Normal 2.0-7.7 [facility] Comment on above: Performed By: #### Benito MENDES, BRC #### [facility] [address] [place], [address] Basophils/100 WBC (Bld) 0.3 % Normal 0-1 [facility] Comment on above: Performed By: #### Benito MENDES BRC #### [facility] [address] [place], [address] Eosinophils/100 WBC (Bld) 1.1 % Normal 0-5 [facility] Comment on above: Performed By: #### Benito MENDSE BR #### [facility] [address] [place], [address] Erythrocyte distribution width (RBC) [Ratio] 17.8 % High 11.6-14.6 [facility] Comment on above: Performed By: #### Benito MENDES BR #### [facility] [address] [place], [address] Hematocrit (Bld) [Volume fraction] 21.6 % Low 40-54 [facility] Comment on above: Performed By: #### Benito MENDES BRC #### [facility] [address] [place], [address] Hemoglobin (Bld) [Mass/Vol] 7.1 g/dL Low 13.0-16.5 [facility] Comment on above: Performed By: #### Benito MENDES, BRC #### [facility] [address] [place], [address] IG% 1.700 High 0.0-0.9 [facility] Comment on above: Result Comment: IG% - Immature Granulocytes (promyelocytes, myelocytes and metamyelocytes) > 1% indicates that a LEFT SHIFT is Present. Performed By: #### Benito MENDES, BRC #### [facility] [address] [place], [address] Lymphocytes/100 WBC (Bld) 16.4 % Low 19-41 [facility] Comment on above: Performed By: #### Benito MENDES, BRC #### [facility] [address] [place], [address] MCH (RBC) [Entitic mass] 30.9 pg Normal 27.0-32.0 [facility] Comment on above: Performed By: #### Benito MENDES, BRC #### [facility] [address] [place], [address] MCHC (RBC) [Mass/Vol] 32.9 g/dL Normal 32-36 [facility] Comment on above: Performed By: #### Benito MENDES, BRC #### [facility] [address] [place], [address] MCV (RBC) [Entitic vol] 93.9 fL Normal 80-94 [facility] Comment on above: Performed By: #### Benito MENDES, BRC #### [facility] [address] [place], [address] Monocytes/100 WBC (Bld) 5.2 % Normal 0-10 [facility] Comment on above: Performed By: #### Benito MENDES, BRC #### [facility] [address] [place], [address] Neutrophils/100 WBC (Bld) 75.3 % High 47-70 [facility] Comment on above: Performed By: #### Benito MENDES, BRC #### [facility] [address] [place], [address] Nucleated RBC (Bld) [#/Vol] 0 10*3/uL Normal 0-5 [facility] Comment on above: Performed By: #### Benito MENDES, BRC #### [facility] [address] [place], [address] Platelet mean volume (Bld) [Entitic vol] 10.9 fL Normal 6.2-12.0 [facility] Comment on above: Performed By: #### Benito MENDES, BRC #### [facility] Laboratory [address] [place], [address] Platelets (Bld) [#/Vol] 154 10*3/uL Normal 150-450 [facility] Comment on above: Performed By: #### Benito MENDES, BRC #### [facility] [address] [place], [address] RBC (Bld) [#/Vol] 2.30 10*6/uL Low 4.6-6.2 [facility] Comment on above: Performed By: #### Benito MENDES, BRC #### [facility] [address] [place], [address] RDW SD 56.1 fl High 35.1-43.9 [facility] Comment on above: Performed By: #### Benito MENDES, BRC #### [facility] [address] [place], [address] WBC (Bld) [#/Vol] 3.5 10*3/uL Low 4.4-11.0 [facility] Comment on above: Performed By: #### Benito MENDES, BRC #### [facility] Laboratory [address] [place], [address] Carbon dioxide, total [Moles /volume] in Central venous bloodOrdered By: Esau Brothers on 02-10-2025 CO2 [Moles/Vol] 26.7 mmol/L 21.0-32.0 [facility] Chloride assayOrdered By: Thomas Brothers on 02-10-2025 Chloride [Moles/Vol] 103 mmol/L 98-108 [facility] Emergency Department Summary on 02-10-2025 Emergency Department Summary [facility] Medical Records Department [address] [place] [address] Emergency Department Summary 02/10/25 MR#: [id number] Acct: [id number] Name: LORETA HURST Rep #: [id number] : 1945 79 From: Esau Brothers DO PCP: PAWAN Ortiz Status:REG ER Location: ED ADDENDUM by Dr. Abrahan Dueñas DO on 02/10/25 at 1825 I did provide a patient hard copy of his CT results and advised him to show his primary care physician these results for the further testing that was recommended 02/10/251824 Cosigner Signature (if applicable): cc: [employer] Gladys Da Silva * Signed ADDENDUM by Dr. Abrahan Dueñas DO on 02/10/25 at 1825 Patient's case signed out to me to follow-up on CT abdomen pelvis. Patient CT abdomen pelvis showed focal area of soft tissue stranding and dilation of the right ureter at the right UPJ which is indeterminate in etiology based on noncontrast examination recommending nonemergent outpatient CT abdomen pelvis with venous and delayed phase imaging for further evaluation to exclude neoplasm. No hydronephrosis or nephrolithiasis. Hepatosplenomegaly with diffuse increased hepatic density most compatible with hemochromatosis additional considerations include Marquez's disease or amiodarone use. I did add on a liver function panel as patient does not have a history of these diagnoses. Mild diffuse bladder wall thickening which may be secondary to developing UTI patient urinalysis is normal however given his symptoms we will treat with Keflex. There is tree-in-bud nodularity in the left lower lobe like infectious/inflammatory etiology such as aspiration pneumonitis patient has no upper respiratory symptoms at this point time therefore I have low suspicion for this. Did discuss results with the patient and significant other bedside they are requesting type and screen for his transfusion tomorrow this was ordered. He was encouraged to return with worsening symptoms and concerns. Significant other bedside states that his illness is end-stage and he does not want any aggressive measures at this point time. All question concerns answered patient was discharged home in stable condition 02/10/251824 Cosigner Signature (if applicable): cc: PAWAN Da Silva * Signed HPI History of Present Illness Chief Complaint: Complaint Narrative Narrative: Chief complaint and HPI: Dysuria, urinary incontinence, suprapubic abdominal pain. 79-year-old male with past medical history of myelodysplastic syndrome and HTN presents for evaluation of dysuria urinary incontinence, and suprapubic abdominal pain. Patient states for the past week he has been having dysuria, urinary continence, suprapubic abdominal pain. He states that his symptoms have not improved which is why he presents. He denies any fever, chills, shortness of breath, chest pain, nausea, vomiting, constipation, diarrhea, penile or testicular pain. Patient states he has been eating and drinking well. He had a history of a UTI in the past that required admission. He denies any difficulty in his prostate. also states that yesterday she noticed some left lower extremity swelling that has since resolved. She states that he has myelodysplastic syndrome and is worried that he could possibly have a DVT. Patient has no history of DVT in the past. Review of systems: See HPI Medications: As listed on the chart Allergies: As listed on the chart PFSH: Per chart Vital signs: As listed on the chart. Reviewed. Physical exam: Gen: A O x3, NAD Head: Normocephalic, atraumatic Eyes: No sclera icterus, conjunctiva clear ENT: Moist mucous membranes Neck: Trachea midline, No JVD CV: RRR, no murmurs, no peripheral edema Resp: Lungs CTA BL, no w/r/c GI: Abd soft, non-distended, mildly tender to palpation in the suprapubic region, no r/r/g : No CVA tenderness. Circumcised penis. No penile tenderness or discharge. No penile or testicular swelling. Normal lie and position of the testicles. No testicular tenderness, masses, or skin changes. No rashes. Musc: Full ROM, no deformity, femoral/DP/PT pulses +2 bilaterally, no peripheral edema or swelling of the bilateral lower extremities, negative Homans' sign bilaterally Skin: Warm, dry Neuro: Alert, oriented, grossly intact, sensation intact Psych: Cooperative, appropriate mood and affect [facility] Medical History Pancytopenia Thrombocytopenia MDS (myelodysplastic syndrome) Secondary pulmonary arterial hypertension Encounter for education [place] Sensory neuropathy Myelodysplastic syndrome Home Medications ???Medication ???Instructions ???Recorded ???Last Taken ???Type montelukast 10 mg tablet 10 mg PO QHS allergies 08/24/18 History pyridoxine (vitamin B6) 100 (more content not included)... Normal [facility] Eosinophil percentageOrdered By: Esaujoe Brothers on 02-10-2025 Eosinophils/100 WBC (Bld) 1.1 % 0-5 [facility] Epithelial cells.squamous LM Ql (Urine sed)Ordered By: Esaujoe Brothers on 02-10-2025 Epithelial cells.squamous LM.HPF (Urine sed) [#/Area] 0 /[HPF] 0-5 [facility] Erythrocyte distribution wid th (RBC) [Ratio]Ordered By: [place] Zev on 02-10-2025 Erythrocyte distribution width (RBC) [Entitic vol] 56.1 fL High 35.1-43.9 [facility] Erythrocyte distribution wid th ratioOrdered By: [facility] on 02-10-2025 Erythrocyte distribution width (RBC) [Ratio] 17.8 % High 11.6-14.6 [facility] Erythrocyte distribution wid th standard deviationOrdered By: [facility] on 02-10-2025 Erythrocyte distribution width (RBC) [Ratio] 56.1 fl High 35.1-43.9 [facility] Estimation of creatinine alvino aranceOrdered By: [facility]Sudarshan on 02-10-2025 Estimated Creatinine Clearance Calc 77.15 ml/min 50-250 [facility] GFR/1.73 sq M.predicted [place] g non-blacks MDRD (S/P/Bld) [Vol rate/Area]Ordered By: Esaujoe Brothers on 02-10-2025 Estimated GFR (MDRD) Non-Af Amer 93 >60 [facility] Comment on above: mL/min/1.73m2 CKD-EP I Creatinine Equation (2020) Glomerular filtration rate ( GFR) estimation/1.73 sq m using serum, plasma, or whole bOrdered By: Esau Brothers on 02-10-2025 GFR/1.73 sq M.predicted among non-blacks MDRD (S/P/Bld) [Vol rate/Area] 93 mL/min/{1.73_m2} >60 [facility] Comment on above: mL/min/1.73m2 CKD-EP I Creatinine Equation (2020) Glucose Ql (U)Ordered By: Thomas Brothers on 02-10-2025 Urine Glucose (UA) Normal mg/dl Normal [facility] Hematocrit Auto (Bld) [Volum e fraction]Ordered By: Esau Brothers on 02-10-2025 Hematocrit (Bld) [Volume fraction] 21.6 % Low 40-54 [facility] Hemoglobin measurementOrdere d By: Esau Brothers on 02-10-2025 Hemoglobin (Bld) [Mass/Vol] 7.1 g/dL Low 13.0-16.5 [facility] Immature granulocytes/100 WB C Auto (Bld)Ordered By: Esau Brothers on 02-10-2025 Immature granulocytes/100 WBC (Bld) 1.700 % High 0.0-0.9 [facility] Comment on above: IG% - Immature Granu locytes (promyelocytes, myelocytes and metamyelocytes) > 1% indicates that a LEFT SHIFT is Present. Ketones Test strip Ql (U)Ord ered By: Esau Brothers on 02-10-2025 Ketones Ql (U) Negative Negative [facility] Laboratory - Chemistry and C hemistry - challengeOrdered By: Abrahan Dueñas on 02-10-2025 AST [Catalytic activity/Vol] 38 U/L <38 [facility] Liver Profileon 02-10-2025 Albumin [Mass/Vol] 4.2 g/dL Normal 3.4-4.8 [facility] Comment on above: Performed By: #### B TS, BRC #### [facility] Laboratory [address] [place], [address] ALK PHOS 75 U/L Normal 40-129 [facility] Comment on above: Performed By: #### Benito MENDES, BRC #### [facility] [address] [place], [address] ALT [Catalytic activity/Vol] 46 U/L Normal <=46 [facility] Comment on above: Performed By: #### Benito MENDES, BRC #### [facility] [address] [place], [address] AST [Catalytic activity/Vol] 38 U/L Normal <=37 [facility] Comment on above: Performed By: #### Benito MENDES, BR #### [facility] [address] [place], [address] Bilirubin [Mass/Vol] 1.19 mg/dL Normal 0.00-1.30 [facility] Comment on above: Performed By: #### Benito MENDES BR #### [facility] Laboratory [address] [place], [address] Bilirubin.direct [Mass/Vol] 0.57 mg/dL High 0.00-0.30 [facility] Comment on above: Performed By: #### Benito MENDES, BR #### [facility] [address] [place], [address] Globulin (S) [Mass/Vol] 2.3 g/dL Normal 2.2-4.2 [facility] Comment on above: Performed By: #### Benito MENDES, BRC #### [facility] [address] [place], [address] T PROT 6.4 g/dL Normal 5.9-8.4 [facility] Comment on above: Performed By: #### Benito MENDES, BRC #### [facility] [address] [place], [address] Lymphocytes Auto (Unsp spec) [#/Vol]Ordered By: Esau Brothers on 02-10-2025 Lymphocytes (Bld) [#/Vol] 0.57 10*3/uL Low 0.83-4.51 [facility] Lymphocytes/100 WBC Auto (Un sp spec)Ordered By: Esau Brothers on 02-10-2025 Lymphocytes/100 WBC (Bld) 16.4 % Low 19-41 [facility] MCV (mean corpuscular volume ) determinationOrdered By: Esau Brothers on 02-10-2025 MCV (RBC) [Entitic vol] 93.9 fL 80-94 [facility] Mean corpuscular hemoglobin (MCH) determinationOrdered By: Esau Brothers on 02-10-2025 MCH (RBC) [Entitic mass] 30.9 pg 27.0-32.0 [facility] Mean corpuscular hemoglobin concentration (MCHC) determinationOrdered By: Esau Brothers on 02-10-2025 MCHC (RBC) [Mass/Vol] 32.9 g/dL 32-36 [facility] Mean platelet volume determi nationOrdered By: Esau Brothers on 02-10-2025 Platelet mean volume (Bld) [Entitic vol] 10.9 fL 6.2-12.0 [facility] Microscopic analysis of urin e for red blood cells (RBC)Ordered By: Esau Brothers on 02-10-2025 Microscopic analysis of urine for red blood cells (RBC) 0 SEEN /hpf 0-5 [facility] Urine RBC 0 SEEN /hpf 0-5 [facility] Monocyte percentageOrdered B y: Esau Brothers on 02-10-2025 Monocytes/100 WBC (Bld) 5.2 % 0-10 [facility] Mucus LM Ql (Urine sed)Order ed By: Esau Brothers on 02-10-2025 Mucus Ql (Urine sed) 0 SEEN /hpf [facility] Neutrophil percentageOrdered By: Esau Brothers on 02-10-2025 Neutrophils/100 WBC (Bld) 75.3 % High 47-70 [facility] Nitrite Test strip Ql (U)Ord ered By: Esau Brothers on 02-10-2025 Nitrite Ql (U) Negative Negative [facility] Nucleated red blood cell per centageOrdered By: Esau Brothers on 02-10-2025 Nucleated RBC/100 WBC (Bld) [Ratio] 0 % 0-5 [facility] Platelet countOrdered By: Thomas Brothers on 02-10-2025 Platelets (Bld) [#/Vol] 154 10*3/uL 150-450 [facility] Potassium (Unsp spec) [Mass/ Vol]Ordered By: Esau Brothers on 02-10-2025 Potassium [Moles/Vol] 4.4 mmol/L 3.3-5.1 [facility] Potassium measurement (mass/ volume)Ordered By: Esau Brothers on 02-10-2025 Potassium (Unsp spec) [Mass/Vol] 4.4 mmol/L 3.3-5.1 [facility] Protein Test strip Ql (U)Ord ered By: Esau Brothers on 02-10-2025 Protein Ql (U) Negative Negative [facility] RBC Auto (Bld) [#/Vol]Ordere d By: Esau Brothers on 02-10-2025 RBC (Bld) [#/Vol] 2.30 10*6/uL Low 4.6-6.2 [facility] Serum creatinine measurement (mass/volume)Ordered By: Esau Brothers on 02-10-2025 Creatinine [Mass/Vol] 0.71 mg/dL 0.70-1.20 [facility] Serum globulin measurementOr dered By: Abrahan Dueñas on 02-10-2025 Globulin (S) [Mass/Vol] 2.3 g/dL 2.2-4.2 [facility] Serum glucose measurement (m ass/volume)Ordered By: Esau Brothers on 04-03-2025 Glucose [Mass/Vol] 104 mg/dL High 70-99 [facility] Serum or plasma alanine gloria otransferase (ALT) measurementOrdered By: Abrahan Dueñas on 02-10-2025 ALT [Catalytic activity/Vol] 46 U/L <47 [facility] Serum or plasma albumin alexander urement (mass/volume)Ordered By: Abrahan Dueñas on 02-10-2025 Albumin [Mass/Vol] 4.2 g/dL 3.4-4.8 [facility] Serum or plasma alkaline les sphatase measurementOrdered By: Abrahan Dueñas on 02-10-2025 ALP [Catalytic activity/Vol] 75 U/L 40-129 [facility] Serum or plasma calcium alexander urement (mass/volume)Ordered By: Esau Mackenzie on 02-10-2025 Calcium [Mass/Vol] 9.3 mg/dL 7.6-11.0 [facility] Serum or plasma urea nitroge n measurement (mass/volume)Ordered By: Esau Brothers on 02-10-2025 Urea nitrogen [Mass/Vol] 10 mg/dL 4-19 [facility] Sodium levelOrdered By: Mejia Brothers on 02-10-2025 Sodium [Moles/Vol] 139 mmol/L 133-145 [facility] Squamous epithelial cells de tection in urine sediment by light microscopyOrdered By: Esau Brothers on 02-10-2025 Epithelial cells.squamous LM Ql (Urine sed) 0 SEEN /hpf 0-5 [facility] Total proteinOrdered By: Jackeline Dueñas on 02-10-2025 Protein [Mass/Vol] 6.4 g/dL 5.9-8.4 [facility] Type AND Screenon 02-10-2025 Ab SCREEN GEL Negative Normal [facility] Comment on above: Order Comment: A Performed By: #### B TS #### [facility] Laboratory [facility] [address] [place], [place], [id number] ABO and Rh group Nom (Bld) Blood group B Rh(D) positive Normal [facility] Comment on above: Order Comment: A Performed By: #### B TS #### [facility] Laboratory [address] [place], [address] Urinalysis, Completeon 02-10 WBC 0-5 SEEN Normal 0-5 [facility] Comment on above: Order Comment: N 01/28/2025 @0800 N Y A Performed By: #### Benito MENDES, [facility] #### [facility] Laboratory [address] [place], [address] BACTERIA 0 SEEN Normal None Seen [facility] Comment on above: Order Comment: N 01/28/2025 @0800 N Y A Performed By: #### Benito MENDES, [facility] #### [facility] Laboratory [address] [place], [address] EPI,SQUAMOUS 0 SEEN Normal 0-5 [facility] Comment on above: Order Comment: N 01/28/2025 @0800 N Y A Performed By: #### Benito MENDES, [facility] #### [facility] Laboratory [address] [place], [address] Mucus Ql (Urine sed) 0 SEEN Normal [facility] Comment on above: Order Comment: N 01/28/2025 @0800 N Y A Performed By: #### Benito MENDES, [facility] #### [facility] Laboratory [address] [place], [address] RBC 0 SEEN Normal 0-5 [facility] Comment on above: Order Comment: N 01/28/2025 @0800 N Y A Performed By: #### Benito MENDES, [facility] #### [facility] Laboratory [address] [place], [address] Urine blood detectionOrdered By: Esau Brothers on 02-10-2025 Urine Occult Blood Negative Negative [facility] Urine clarityOrdered By: Kishore Brothers on 02-10-2025 Clarity (U) Clear Clear [facility] Urine color determinationOrd ered By: Esau Brothers on 02-10-2025 Color (U) Yellow Yellow [facility] Urine glucose detectionOrder ed By: Esau Brothers on 02-10-2025 Glucose Ql (U) Normal mg/dl Normal [facility] Urine leukocyte esterase det ection by dipstickOrdered By: Esau Brothers on 02-10-2025 Leukocyte esterase Test strip Ql (U) 25 /ul High Negative [facility] Urine pHOrdered By: Esau Florez on 02-10-2025 pH (U) 7.0 [pH] 5.0 - 8.0 [facility] Urine sediment bacteria coun t by microscopy (number/high power field)Ordered By: Esau Brothers on 02-10-2025 Bacteria LM.HPF (Urine sed) [#/Area] 0 /[HPF] None Seen [facility] Urine specific gravity measu rementOrdered By: Esau Brothers on 02-10-2025 Specific gravity (U) [Rel density] 1.005 1.002-1.030 [facility] Urine urobilinogen measureme ntOrdered By: Esau Brothers on 02-10-2025 Urobilinogen Ql (U) Normal mg/dl Normal [facility] Urobilinogen Ql (U)Ordered B y: Esau Brothers on 02-10-2025 Urine Urobilinogen Normal mg/dl Normal [facility] Venous Duplex US, Unilateral on 02-10-2025 Venous Duplex US, Unilateral [facility] [address] [place] [address] Venous Duplex US, Unilateral 02/10/25 1432 MR#: [id number] Acct: [id number] Name: LORETA HURST Arnie Rep #: [id number] : 1945 79 From: Lalo Felton MD Attending Dr: Status: REG ER Ordering Dr: Esau Brothers DO Date: 5 Location: ED Sex: M C Admitted: Reason For Study Reason For Study: Swelling RIGHT LEFT CFV is compressible, spontaneous, phasic, competent GSV is normal. and demonstrates normal augmentation. CFV is compressible, spontaneous, phasic, competent, Procedure and demonstrates normal augmentation. This is a venous duplex using B-mode, color flow and FV is compressible, spontaneous, phasic, competent spectral Doppler. and demonstrates normal augmentation. Exam performed portable in ED. POP V is compressible, spontaneous, phasic, competent A preliminary report was called and/or faxed to and demonstrates normal augmentation. Zev. T/P Trunk is compressible. PTV is compressible. LT PerV is compressible. VL/Venous Duplex US, Unilateral Interpretation Summary Deep veins of the left lower extremity are patent and compressible segmentally. There is no evidence of left lower extremity deep vein thrombosis. The left great saphenous vein appears patent and compressible segmentally. Ordering Physician: Esau Brothers Performed By: Genesis Delgado, RVT 02/10/25 170 Date Lalo Felton MD CC: PAWAN Da Silva; Dr. Esau Brothers, Date Dictated: 02/10/25 1432 Date Transcribed: 02/10/251702 Warp Dresser: Signed Normal [facility] White blood cell (WBC) count Ordered By: Esau Brothers on 02-10-2025 WBC (Bld) [#/Vol] 3.5 10*3/uL Low 4.4-11.0 [facility] White blood cell countOrdere d By: Esau Brothers on 02-10-2025 Urine WBC 0-5 SEEN /hpf 0-5 [facility] White blood cell count 0-5 SEEN /hpf 0-5 [facility] BRCon 01-27-2025 RC Normal Neg [facility] Comment on above: Result Comment: [id number] RC TRANSFUSED 01/28/25 1108 [id number] BP RC TRANSFUSED 01/28/25 0904 Performed By: #### B , [facility] #### [facility] Laboratory [address] [place], [place], [id number] CBC W Auto Differential pane l (Bld)on 01-27-2025 Basophils (Bld) [#/Vol] 10*3/uL Normal <0.11 [facility] Comment on above: Order Comment: Speci men Type: BLOOD SPECIMENOrdering Facility: [facility] Address: [address] [place] [address] Performed By: #### 5 7021-8 ####[facility] SPRINGSWNCLIA [id number] [place] [address] [place] Basophils/100 WBC (Bld) 0.3 % Normal [facility] Comment on above: Order Comment: Speci men Type: BLOOD SPECIMENOrdering Facility: [facility] Address: [address] [place] [address] Performed By: #### 5 7021-8 ####[facility] MILLWNCLIA [id number] [place] [address] [place] Differential cell count method Nom (Bld) Auto Normal [facility] Comment on above: Order Comment: Speci men Type: BLOOD SPECIMENOrdering Facility: [facility] Address: [address] [place] [address] Performed By: #### 5 7021-8 ####[facility] MILLWNCLIA [id number] [place] [address] [place] Eosinophils (Bld) [#/Vol] 0.05 10*3/uL Normal <0.46 [facility] Comment on above: Order Comment: Speci men Type: BLOOD SPECIMENOrdering Facility: [facility] Address: [address] [place] [address] Performed By: #### 5 7021-8 ####[facility] SHERRILIANNE [id number] [place] [address] [place] Eosinophils/100 WBC (Bld) 1.7 % Normal [facility] Comment on above: Order Comment: Speci men Type: BLOOD SPECIMENOrdering Facility: [facility] Address: [address] [place] [address] Performed By: #### 5 7021-8 ####[facility] SPRINGSNCLIDarrick [id number] [place] [address] [place] Erythrocyte distribution width (RBC) [Ratio] 17.4 % High 11.5-15.0 [facility] Comment on above: Order Comment: Speci men Type: BLOOD SPECIMENOrdering Facility: [facility] Address: [address] [place] [address] Performed By: #### 5 7021-8 ####[facility] [id number] [place] [address] [place] Hematocrit (Bld) [Volume fraction] 23.5 % Low 39.0-51.0 [facility] Comment on above: Order Comment: Speci men Type: BLOOD SPECIMENOrdering Facility: [facility] Address: [address] [place] [address] Performed By: #### 5 7021-8 ####[facility] [id number] [place] [address] [place] Hemoglobin (Bld) [Mass/Vol] 7.7 g/dL Low 13.0-17.0 [facility] Comment on above: Order Comment: Speci men Type: BLOOD SPECIMENOrdering Facility: [facility] Address: [address] [place] [address] Performed By: #### 5 7021-8 ####[facility] MILLWNCLIA [id number] [place] [address] [place] Immature granulocytes (Bld) [#/Vol] 10*3/uL Normal <0.10 [facility] Comment on above: Order Comment: Speci men Type: BLOOD SPECIMENOrdering Facility: [facility] Address: [address] [place] [address] Performed By: #### 5 7021-8 ####[facility] [id number] [place] [address] [place] Immature granulocytes/100 WBC (Bld) 0.3 % Normal [facility] Comment on above: Order Comment: Speci men Type: BLOOD SPECIMENOrdering Facility: [facility] Address: [address] [place] [address] Performed By: #### 5 7021-8 ####[facility] [id number] [place] [address] [place] Lymphocytes (Bld) [#/Vol] 0.54 10*3/uL Low 1.00-4.00 [facility] Comment on above: Order Comment: Speci men Type: BLOOD SPECIMENOrdering Facility: [facility] Address: [address] [place] [address] Performed By: #### 5 7021-8 ####[facility] [id number] [place] [address] [place] Lymphocytes/100 WBC (Bld) 17.8 % Normal [facility] Comment on above: Order Comment: Speci men Type: BLOOD SPECIMENOrdering Facility: [facility] Address: [address] [place] [address] Performed By: #### 5 7021-8 ####[facility] [id number] [place] [address] [place] MCH (RBC) [Entitic mass] 31.0 pg Normal 26.0-34.0 [facility] Comment on above: Order Comment: Speci men Type: BLOOD SPECIMENOrdering Facility: [facility] Address: [address] [place] [address] Performed By: #### 5 7021-8 ####[facility] [id number] [place] [address] [place] MCHC (RBC) [Mass/Vol] 32.8 g/dL Normal 30.5-36.0 [facility] Comment on above: Order Comment: Speci men Type: BLOOD SPECIMENOrdering Facility: [facility] Address: [address] [place] [address] Performed By: #### 5 7021-8 ####[facility] [id number] [place] [address] [place] MCV (RBC) [Entitic vol] 94.8 fL Normal 80.0-100.0 C [facility] Comment on above: Order Comment: Speci men Type: BLOOD SPECIMENOrdering Facility: [facility] Address: [address] [place] [address] Performed By: #### 5 7021-8 ####[facility] SPRINGSNCLI [id number] [place] [address] [place] Monocytes (Bld) [#/Vol] 0.14 10*3/uL Normal <0.87 [facility] Comment on above: Order Comment: Speci men Type: BLOOD SPECIMENOrdering Facility: [facility] Address: [address] [place], [place] [id number] Performed By: #### 5 7021-8 ####[facility]SNCL[facility] [id number] [address] [place] Monocytes/100 WBC (Bld) 4.6 % Normal C [facility] Comment on above: Order Comment: Speci men Type: BLOOD SPECIMENOrdering Facility: [facility] Address: [address] [place] [address] Performed By: #### 5 7021-8 ####[facility] SHERRIJENNILIA [id number] [place] [address] [place] Neutrophils (Bld) [#/Vol] 2.28 10*3/uL Normal 1.45-7.50 [facility] Comment on above: Order Comment: Speci men Type: BLOOD SPECIMENOrdering Facility: [facility] Address: [address] [place] [address] Performed By: #### 5 7021-8 ####[facility] [id number] [place] [address] [place] Neutrophils/100 WBC (Bld) 75.3 % Normal [facility] Comment on above: Order Comment: Speci men Type: BLOOD SPECIMENOrdering Facility: [facility] Address: [address] [place] [address] Performed By: #### 5 7021-8 ####[facility] [id number] [place] [address] [place] Nucleated RBC (Bld) [#/Vol] 10*3/uL Normal <0.01 [facility] Comment on above: Order Comment: Speci men Type: BLOOD SPECIMENOrdering Facility: [facility] Address: [address] [place] [address] Performed By: #### 5 7021-8 ####[facility]SNCL[facility] [id number] [place] [address] [place] Nucleated RBC/100 WBC (Bld) [Ratio] 0.0 /100 WBC Normal [facility] Comment on above: Order Comment: Speci men Type: BLOOD SPECIMENOrdering Facility: [facility] Address: [address] [place] [address] Performed By: #### 5 7021-8 ####[facility] SHERRIWNCLIA [id number] [place] [address] [place] Platelet mean volume (Bld) [Entitic vol] 11.1 fL Normal 9.0-12.7 [facility] Comment on above: Order Comment: Speci men Type: BLOOD SPECIMENOrdering Facility: [facility] Address: [address] [place] [address] Performed By: #### 5 7021-8 ####[facility] [id number] [place] [address] [place] Platelets (Bld) [#/Vol] 134 10*3/uL Low 150-400 [facility] Comment on above: Order Comment: Speci men Type: BLOOD SPECIMENOrdering Facility: [facility] Address: [address] [place] [address] Performed By: #### 5 7021-8 ####[facility] [id number] [place] [address] [place] RBC (Bld) [#/Vol] 2.48 10*6/uL Low 4.20-6.00 [facility] Comment on above: Order Comment: Speci men Type: BLOOD SPECIMENOrdering Facility: [facility] Address: [address] [place] [address] Performed By: #### 5 7021-8 ####[facility] [id number] [place] [address] [place] WBC (Bld) [#/Vol] 3.03 10*3/uL Low 3.70-11.00 [facility] Comment on above: Order Comment: Speci men Type: BLOOD SPECIMENOrdering Facility: [facility] Address: [address] [place] [address] Performed By: #### 5 7021-8 ####[facility] [id number] [place] [address] [place] CNOVon 01-27-2025 CNOV Normal [facility] CNPNon 01-27-2025 CNPN Normal [facility] Comprehensive metabolic 2000 panelon 01-27-2025 Albumin [Mass/Vol] 4.3 g/dL Normal 3.9-4.9 [facility] Comment on above: Order Comment: Speci men Type: BLOOD SPECIMENOrdering Facility: [facility] Address: [address] [place] [address] Performed By: #### 2 4323-8 ####[facility] MILLTOWNCLIA [id number] [place] [address] [place] ALP [Catalytic activity/Vol] 97 U/L Normal 38-113 [facility] Comment on above: Order Comment: Speci men Type: BLOOD SPECIMENOrdering Facility: [facility] Address: [address] [place] [address] Performed By: #### 2 4323-8 ####[facility] SPRINGSWNCLIA [id number] [place] [address] [place] ALT [Catalytic activity/Vol] 65 U/L High 10-54 [facility] Comment on above: Order Comment: Speci men Type: BLOOD SPECIMENOrdering Facility: [facility] Address: [address] [place] [address] Performed By: #### 2 4323-8 ####[facility] MILLTOWNCLIA [id number] [place] [address] [place] Anion gap [Moles/Vol] 8 mmol/L Normal 8-15 [facility] Comment on above: Order Comment: Speci men Type: BLOOD SPECIMENOrdering Facility: [facility] Address: [address] [place] [address] Performed By: #### 2 4323-8 ####[facility] MILLTOWNCLIA [id number] [place] [address] [place] AST [Catalytic activity/Vol] 48 U/L High 14-40 [facility] Comment on above: Order Comment: Speci men Type: BLOOD SPECIMENOrdering Facility: [facility] Address: [address] [place] [address] Performed By: #### 2 4323-8 ####[facility]SNCL[facility] [id number] [place] [address] [place] Bilirubin [Mass/Vol] 1.0 mg/dL Normal 0.2-1.3 [facility] Comment on above: Order Comment: Speci men Type: BLOOD SPECIMENOrdering Facility: [facility] Address: [address] [place] [address] Performed By: #### 2 4323-8 ####[facility]SNCL[facility] [id number] [place] [address] [place] Calcium [Mass/Vol] 9.4 mg/dL Normal 8.5-10.2 [facility] Comment on above: Order Comment: Speci men Type: BLOOD SPECIMENOrdering Facility: [facility] Address: [address] [place] [address] Performed By: #### 2 4323-8 ####[facility] [id number] [place] [address] [place] Chloride [Moles/Vol] 102 mmol/L Normal 98-107 [facility] Comment on above: Order Comment: Speci men Type: BLOOD SPECIMENOrdering Facility: [facility] Address: [address] [place] [address] Performed By: #### 2 4323-8 ####[facility] [id number] [place] [address] [place] CO2 [Moles/Vol] 29 mmol/L Normal 22-30 [facility] Comment on above: Order Comment: Speci men Type: BLOOD SPECIMENOrdering Facility: [facility] Address: [address] [place] [address] Performed By: #### 2 4323-8 ####[facility] [id number] [place] [address] [place] Creatinine [Mass/Vol] 0.77 mg/dL Normal 0.73-1.22 [facility] Comment on above: Order Comment: Speci men Type: BLOOD SPECIMENOrdering Facility: [facility] Address: [address] [place] [address] Performed By: #### 2 4323-8 ####[facility] [id number] [place] [address] [place] Creatinine and Glomerular filtration rate.predicted panel (S/P/Bld) 91 mL/min/1.73m??? Normal >=60 [facility] Comment on above: Order Comment: Speci men Type: BLOOD SPECIMENOrdering Facility: [facility] Address: [address] [place] [address] Result Comment: Lilly mated Glomerular Filtration Rate (eGFR) is calculated using the 2020 CKD-EPI creatinine equation. This equation utilizes serum creatinine, sex, and age as parameters. The creatinine assay has traceable calibration to isotope dilution-mass spectrometry. Refer to KDIGO guidelines for clinical interpretation. In patients with unstable renal function, e.g. those with acute kidney injury, the eGFR may not accurately reflect actual GFR. Performed By: #### 2 4323-8 ####[facility] [id number] [place] [address] [place] Glucose [Mass/Vol] 175 mg/dL High 74-99 [facility] Comment on above: Order Comment: Speci men Type: BLOOD SPECIMENOrdering Facility: [facility] Address: [address] [place] [address] Result Comment: The [place] [employer] (ADA) provides guidance for cutoff values for fasting glucose and random glucose. The ADA defines fasting as no caloric intake for at least 8 hours. Fasting plasma glucose results between 100 to 125 mg/dL indicate increased risk for diabetes (prediabetes).Fasting plasma glucose results greater than or equal to 126 mg/dL meet the criteria for diagnosis of diabetes. In the absence of unequivocal hyperglycemia, results should be confirmed by repeat testing. In a patient with classic symptoms of hyperglycemia or hyperglycemic crisis, random plasma glucose results greater than or equal to 200 mg/dL meet the criteria for diagnosis of diabetes.Reference: Standards of Medical Care in Diabetes 2016, [place] [employer] Association. Diabetes Care. 2016.39(Suppl 1). Performed By: #### 2 4323-8 ####[facility] SPRINGSWGALIA [id number] [place] [address] [place] Potassium [Moles/Vol] 4.3 mmol/L Normal 3.7-5.1 [facility] Comment on above: Order Comment: Speci men Type: BLOOD SPECIMENOrdering Facility: [facility] Address: [address] [place] [address] Performed By: #### 2 4323-8 ####[facility] [id number] [place] [address] [place] Protein [Mass/Vol] 6.5 g/dL Normal 6.3-8.0 [facility] Comment on above: Order Comment: Speci men Type: BLOOD SPECIMENOrdering Facility: [facility] Address: [address] [place] [address] Performed By: #### 2 4323-8 ####[facility] [id number] [place] [address] [place] Sodium [Moles/Vol] 139 mmol/L Normal 136-144 [facility] Comment on above: Order Comment: Speci men Type: BLOOD SPECIMENOrdering Facility: [facility] Address: [address] [place] [address] Performed By: #### 2 4323-8 ####[facility] [id number] [place] [address] [place] Urea nitrogen [Mass/Vol] 15 mg/dL Normal 9-24 [facility] Comment on above: Order Comment: Speci men Type: BLOOD SPECIMENOrdering Facility: [facility] Address: [address] [place] [address] Performed By: #### 2 4323-8 ####[facility] [id number] [place] [address] [place] Type AND Screenon 01-27-2025 Ab SCREEN GEL Negative Normal [facility] Comment on above: Order Comment: N 01/28/2025 @0800 N Y A Performed By: #### Benito MENDES, [facility] #### [facility] [facility] [address] [place], [place], [address] ABO and Rh group Nom (Bld) Blood group B Rh(D) positive Normal [facility] Comment on above: Order Comment: N 01/28/2025 @0800 N Y A Performed By: #### B CINTHYA, [facility] #### [facility] [address] [place], [place], [address] Urinalysis complete panel (U )on 01-27-2025 Bacteria LM.HPF (Urine sed) [#/Area] Negative Normal Negative [facility] Comment on above: Order Comment: Speci men Type: URINE SPECIMENOrdering Facility: [facility] Address: [address] [place] [address] Performed By: #### 2 4356-8 ####[facility] LABCLIA [id number] [address] [place] Bilirubin Ql (U) Negative Normal Negative [facility] Comment on above: Order Comment: Speci men Type: URINE SPECIMENOrdering Facility: [facility] Address: [address] [place] [address] Performed By: #### 2 4356-8 ####[facility] LABCLIA [id number] [address] [place] [address] [place] Clarity (Unsp spec) Clear Normal Clear Dylon [facility] Comment on above: Order Comment: Speci men Type: URINE SPECIMENOrdering Facility: [facility] Address: [address] [place] [address] Performed By: #### 2 4356-8 ####[facility] LABCLIA [id number] [address] [place] [address] [place] Color (U) Yellow Normal Yellow [facility] Comment on above: Order Comment: Speci men Type: URINE SPECIMENOrdering Facility: [facility] Address: [address] [place] [address] Performed By: #### 2 4356-8 ####[facility] LABCLIA [id number] [address] [place] [address] [place] Epithelial cells LM.HPF (Urine sed) [#/Area] None Seen Normal [facility] Comment on above: Order Comment: Speci men Type: URINE SPECIMENOrdering Facility: [facility] Address: [address] [place] [address] Performed By: #### 2 4356-8 ####[facility] LABCLIA [id number] [address] [place] [address] [place] Glucose Test strip (U) [Mass/Vol] Negative Normal Negative [facility] Comment on above: Order Comment: Speci men Type: URINE SPECIMENOrdering Facility: [facility] Address: [address] [place] [address] Performed By: #### 2 4356-8 ####[facility] LABCLIA [id number] [address] [place] [address] [place] Hemoglobin Ql (U) Negative Normal Negative [facility] Comment on above: Order Comment: Speci men Type: URINE SPECIMENOrdering Facility: [facility] Address: [address] [place], [place] [address] Performed By: #### 2 4356-8 ####[facility] LABCLIA [id number] [address] [place] [address] [place] Hyaline casts (Urine sed) [#/Area] 0 /[LPF] Normal 0 /LPF [facility] Comment on above: Order Comment: Speci men Type: URINE SPECIMENOrdering Facility: [facility] Address: [address] [place] [address] Performed By: #### 2 4356-8 ####[facility] LABCLIA [id number] [address] [place] [address] [place] Ketones Ql (U) Negative Normal Negative [facility] Comment on above: Order Comment: Speci men Type: URINE SPECIMENOrdering Facility: [facility] Address: [address] [place] [address] Performed By: #### 2 4356-8 ####[facility] LABCLIA [id number] [address], [place] [address] [place] Leukocyte esterase Test strip Ql (U) Negative Normal Negative [facility] Comment on above: Order Comment: Speci men Type: URINE SPECIMENOrdering Facility: [facility] Address: [address] [place] [address] Performed By: #### 2 4356-8 ####[facility] LABCLIA [id number] [address], [facility] [place] Nitrite Ql (U) Negative Normal Negative [facility] Comment on above: Order Comment: Speci men Type: URINE SPECIMENOrdering Facility: [facility] Address: [address] [place] [address] Performed By: #### 2 4356-8 ####[facility] LABCLIA [id number] [place] [id number] [place] pH (U) 7.5 [pH] Normal <8.5 [facility] Comment on above: Order Comment: Speci men Type: URINE SPECIMENOrdering Facility: [facility] Address: [address] [place] [address] Performed By: #### 2 4356-8 ####[facility] LABIA [id number] [address], [place] [address] [place] Protein (U) [Mass/Vol] Negative Normal Negative Cl [facility] Comment on above: Order Comment: Speci men Type: URINE SPECIMENOrdering Facility: [facility] Address: [address] [place] [address] Performed By: #### 2 4356-8 ####[facility] LABIA [id number] [address], [place] [address] [place] RBC LM.HPF (Urine sed) [#/Area] 0-2 /HPF Normal 0-2 /HPF [facility] Comment on above: Order Comment: Speci men Type: URINE SPECIMENOrdering Facility: [facility] Address: [address] [place] [address] Performed By: #### 2 4356-8 ####[facility] H[facility]PITALIA [id number] [address], [place] [address] [place] Specific gravity (U) [Rel density] 1.011 Normal 1.005-1.030 [facility] Comment on above: Order Comment: Speci men Type: URINE SPECIMENOrdering Facility: [facility] Address: [address] [place] [address] Performed By: #### 2 4356-8 ####[facility] LABIA [id number] [address], [facility] [place] Urobilinogen Ql (U) 1.0 EU/dL Normal 0.2-1.0 EU/dL [facility] Comment on above: Order Comment: Speci men Type: URINE SPECIMENOrdering Facility: [facility] Address: [address] [place] [address] Performed By: #### 2 4356-8 ####[facility] LABIA [id number] [place] [id number] [place] WBC LM.HPF (Urine sed) [#/Area] 0-5 /HPF Normal 0-5 /HPF [facility] Comment on above: Order Comment: Speci men Type: URINE SPECIMENOrdering Facility: [facility] Address: [address] [place] [address] Performed By: #### 2 4356-8 ####[facility] LABCLIA [id number] [place] [address] [place] BRCon 01-13-2025 RC Normal [facility] Comment on above: Result Comment: [id number] BN RC TRANSFUSED 01/14/25 0831 [id number] BN RC TRANSFUSED 01/14/25 1035 Performed By: #### B TS, [facility] #### [facility] [address] [facility]. [place], [place], [id number] CBC W Auto Differential pane l (Bld)on 01-13-2025 Basophils (Bld) [#/Vol] 10*3/uL Normal <0.11 C [facility] Comment on above: Order Comment: Speci men Type: BLOOD SPECIMENOrdering Facility: [facility] Address: [address] [place] [address] Performed By: #### 5 7021-8 ####[facility] [id number] [place] [address] [place] Basophils/100 WBC (Bld) 0.3 % Normal C [facility] Comment on above: Order Comment: Speci men Type: BLOOD SPECIMENOrdering Facility: [facility] Address: [address] [place], [place] [address] Performed By: #### 5 7021-8 ####[facility] [id number] [place] [address] [place] Differential cell count method Nom (Bld) Auto Normal [facility] Comment on above: Order Comment: Speci men Type: BLOOD SPECIMENOrdering Facility: [facility] Address: [address] [place] [address] Performed By: #### 5 7021-8 ####[facility] MILLWNCLIA [id number] [place] [address] [place] Eosinophils (Bld) [#/Vol] 0.06 10*3/uL Normal <0.46 [facility] Comment on above: Order Comment: Speci men Type: BLOOD SPECIMENOrdering Facility: [facility] Address: [address] [place] [address] Performed By: #### 5 7021-8 ####[facility]SROCKYLIA [id number] [place] [address] [place] Eosinophils/100 WBC (Bld) 1.6 % Normal [facility] Comment on above: Order Comment: Speci men Type: BLOOD SPECIMENOrdering Facility: [facility] Address: [address] [place] [address] Performed By: #### 5 7021-8 ####[facility]IT[facility] [id number] [place] [address] [place] Erythrocyte distribution width (RBC) [Ratio] 18.6 % High 11.5-15.0 [facility] Comment on above: Order Comment: Speci men Type: BLOOD SPECIMENOrdering Facility: [facility] Address: [address] [place] [address] Performed By: #### 5 7021-8 ####[facility] SPRINGSWNCLIA [id number] [place] [address] [place] Hematocrit (Bld) [Volume fraction] 23.6 % Low 39.0-51.0 [facility] Comment on above: Order Comment: Speci men Type: BLOOD SPECIMENOrdering Facility: [facility] Address: [address] [place] [address] Performed By: #### 5 7021-8 ####[facility] SPRINGSNCLIA [id number] [place] [address] [place] Hemoglobin (Bld) [Mass/Vol] 7.9 g/dL Low 13.0-17.0 [facility] Comment on above: Order Comment: Speci men Type: BLOOD SPECIMENOrdering Facility: [facility] Address: [address] [place] [address] Performed By: #### 5 7021-8 ####[facility] [id number] [place] [address] [place] Immature granulocytes (Bld) [#/Vol] 10*3/uL Normal <0.10 [facility] Comment on above: Order Comment: Speci men Type: BLOOD SPECIMENOrdering Facility: [facility] Address: [address] [place] [address] Performed By: #### 5 7021-8 ####[facility] [id number] [place] [address] [place] Immature granulocytes/100 WBC (Bld) 0.3 % Normal [facility] Comment on above: Order Comment: Speci men Type: BLOOD SPECIMENOrdering Facility: [facility] Address: [address] [place] [address] Performed By: #### 5 7021-8 ####[facility] [id number] [place] [address] [place] Lymphocytes (Bld) [#/Vol] 0.61 10*3/uL Low 1.00-4.00 [facility] Comment on above: Order Comment: Speci men Type: BLOOD SPECIMENOrdering Facility: [facility] Address: [address] [place] [address] Performed By: #### 5 7021-8 ####[facility] [id number] [place] [address] [place] Lymphocytes/100 WBC (Bld) 16.1 % Normal [facility] Comment on above: Order Comment: Speci men Type: BLOOD SPECIMENOrdering Facility: [facility] Address: [address] [place] [address] Performed By: #### 5 7021-8 ####[facility] [id number] [place] [address] [place] MCH (RBC) [Entitic mass] 32.5 pg Normal 26.0-34.0 [facility] Comment on above: Order Comment: Speci men Type: BLOOD SPECIMENOrdering Facility: [facility] Address: [address] [place] [address] Performed By: #### 5 7021-8 ####[facility] [id number] [place] [address] [place] MCHC (RBC) [Mass/Vol] 33.5 g/dL Normal 30.5-36.0 [facility] Comment on above: Order Comment: Speci men Type: BLOOD SPECIMENOrdering Facility: [facility] Address: [address] [place] [address] Performed By: #### 5 7021-8 ####[facility] [id number] [place] [address] [place] MCV (RBC) [Entitic vol] 97.1 fL Normal 80.0-100.0 C [facility] Comment on above: Order Comment: Speci men Type: BLOOD SPECIMENOrdering Facility: [facility] Address: [address] [place] [address] Performed By: #### 5 7021-8 ####[facility] [id number] [place] [address] [place] Monocytes (Bld) [#/Vol] 0.17 10*3/uL Normal <0.87 [facility] Comment on above: Order Comment: Speci men Type: BLOOD SPECIMENOrdering Facility: [facility] Address: [address] [place] [address] Performed By: #### 5 7021-8 ####[facility] MILLTOWNCLIA [id number] [place] [address] [place] Monocytes/100 WBC (Bld) 4.5 % Normal [facility] Comment on above: Order Comment: Speci men Type: BLOOD SPECIMENOrdering Facility: [facility] Address: [address] [place] [address] Performed By: #### 5 7021-8 ####[facility] MILLTOWNCLIA [id number] [place] [address] [place] Neutrophils (Bld) [#/Vol] 2.93 10*3/uL Normal 1.45-7.50 [facility] Comment on above: Order Comment: Speci men Type: BLOOD SPECIMENOrdering Facility: [facility] Address: [address] [place] [address] Performed By: #### 5 7021-8 ####[facility] SPRINGSWNCLIA [id number] [place] [address] [place] Neutrophils/100 WBC (Bld) 77.2 % Normal [facility] Comment on above: Order Comment: Speci men Type: BLOOD SPECIMENOrdering Facility: [facility] Address: [address] [place] [address] Performed By: #### 5 7021-8 ####[facility] MILLTOWNCLIA [id number] [place] [address] [place] Nucleated RBC (Bld) [#/Vol] 10*3/uL Normal <0.01 [facility] Comment on above: Order Comment: Speci men Type: BLOOD SPECIMENOrdering Facility: [facility] Address: [address] [place] [address] Performed By: #### 5 7021-8 ####[facility] MILLWNCLIA [id number] [place] [address] [place] Nucleated RBC/100 WBC (Bld) [Ratio] 0.0 /100 WBC Normal [facility] Comment on above: Order Comment: Speci men Type: BLOOD SPECIMENOrdering Facility: [facility] Address: [address] [place] [address] Performed By: #### 5 7021-8 ####[facility] HOSPITALDarrick [id number] [place] [address] [place] Platelet mean volume (Bld) [Entitic vol] 10.8 fL Normal 9.0-12.7 [facility] Comment on above: Order Comment: Speci men Type: BLOOD SPECIMENOrdering Facility: [facility] Address: [address] [place] [address] Performed By: #### 5 7021-8 ####[facility] [id number] [place] [address] [place] Platelets (Bld) [#/Vol] 133 10*3/uL Low 150-400 [facility] Comment on above: Order Comment: Speci men Type: BLOOD SPECIMENOrdering Facility: [facility] Address: [address] [place] [address] Performed By: #### 5 7021-8 ####[facility] HOSPITALDarrick [id number] [place] [address] [place] RBC (Bld) [#/Vol] 2.43 10*6/uL Low 4.20-6.00 [facility] Comment on above: Order Comment: Speci men Type: BLOOD SPECIMENOrdering Facility: [facility] Address: [address] [place] [address] Performed By: #### 5 7021-8 ####[facility] [id number] [place] [address] [place] WBC (Bld) [#/Vol] 3.79 10*3/uL Normal 3.70-11.00 [facility] Comment on above: Order Comment: Speci men Type: BLOOD SPECIMENOrdering Facility: [facility] Address: [address] [place] [address] Performed By: #### 5 7021-8 ####[facility] MILLWNCLIA [id number] [place] [address] [place] CNPNon 01-13-2025 CNPN Normal [facility] Comprehensive metabolic 2000 panelon 01-13-2025 Albumin [Mass/Vol] 4.4 g/dL Normal 3.9-4.9 [facility] Comment on above: Order Comment: Speci men Type: BLOOD SPECIMENOrdering Facility: [facility] Address: [address] [place] [address] Performed By: #### 2 4323-8 ####[facility]IT[facility] [id number] [place] [address] [place] ALP [Catalytic activity/Vol] 102 U/L Normal 38-113 [facility] Comment on above: Order Comment: Speci men Type: BLOOD SPECIMENOrdering Facility: [facility] Address: [address] [place] [address] Performed By: #### 2 4323-8 ####[facility] [id number] [place] [address] [place] ALT [Catalytic activity/Vol] 72 U/L High 10-54 [facility] Comment on above: Order Comment: Speci men Type: BLOOD SPECIMENOrdering Facility: [facility] Address: [address] [place] [address] Performed By: #### 2 4323-8 ####[facility] MILLTOWNCLIA [id number] [place] [address] [place] Anion gap [Moles/Vol] 8 mmol/L Normal 8-15 [facility] Comment on above: Order Comment: Speci men Type: BLOOD SPECIMENOrdering Facility: [facility] Address: [address] [place] [address] Performed By: #### 2 4323-8 ####[facility] BECKYNCLIA [id number] [place] [address] [place] AST [Catalytic activity/Vol] 49 U/L High 14-40 [facility] Comment on above: Order Comment: Speci men Type: BLOOD SPECIMENOrdering Facility: [facility] Address: [address] [place] [address] Performed By: #### 2 4323-8 ####[facility] SHERRIVidhyaNCLIA [id number] [place] [address] [place] Bilirubin [Mass/Vol] 1.0 mg/dL Normal 0.2-1.3 [facility] Comment on above: Order Comment: Speci men Type: BLOOD SPECIMENOrdering Facility: [facility] Address: [address] [place] [address] Performed By: #### 2 4323-8 ####[facility] SHERRIMARIONNCLIA [id number] [place] [address] [place] Calcium [Mass/Vol] 9.4 mg/dL Normal 8.5-10.2 [facility] Comment on above: Order Comment: Speci men Type: BLOOD SPECIMENOrdering Facility: [facility] Address: [address] [place] [address] Performed By: #### 2 4323-8 ####[facility] SPRINGSNCLIA [id number] [place] [address] [place] Chloride [Moles/Vol] 102 mmol/L Normal 98-107 [facility] Comment on above: Order Comment: Speci men Type: BLOOD SPECIMENOrdering Facility: [facility] Address: [address] [place] [address] Performed By: #### 2 4323-8 ####[facility] SPRINGSNCLIA [id number] [place] [address] [place] CO2 [Moles/Vol] 28 mmol/L Normal 22-30 [facility] Comment on above: Order Comment: Speci men Type: BLOOD SPECIMENOrdering Facility: [facility] Address: [address] [place] [address] Performed By: #### 2 4323-8 ####[facility] [id number] [place] [address] [place] Creatinine [Mass/Vol] 0.73 mg/dL Normal 0.73-1.22 [facility] Comment on above: Order Comment: Speci men Type: BLOOD SPECIMENOrdering Facility: [facility] Address: [address] [place] [address] Performed By: #### 2 4323-8 ####[facility] [id number] [place] [address] [place] Creatinine and Glomerular filtration rate.predicted panel (S/P/Bld) 92 mL/min/1.73m??? Normal >=60 [facility] Comment on above: Order Comment: Speci men Type: BLOOD SPECIMENOrdering Facility: [facility] Address: [address] [place] [address] Result Comment: Lilly mated Glomerular Filtration Rate (eGFR) is calculated using the 2020 CKD-EPI creatinine equation. This equation utilizes serum creatinine, sex, and age as parameters. The creatinine assay has traceable calibration to isotope dilution-mass spectrometry. Refer to KDIGO guidelines for clinical interpretation. In patients with unstable renal function, e.g. those with acute kidney injury, the eGFR may not accurately reflect actual GFR. Performed By: #### 2 4323-8 ####[facility] SPRINGSWNCLIA [id number] [place] [address] [place] Glucose [Mass/Vol] 143 mg/dL High 74-99 [facility] Comment on above: Order Comment: Speci men Type: BLOOD SPECIMENOrdering Facility: [facility] Address: [address] [place] [address] Result Comment: The [place] Diabetes Association (ADA) provides guidance for cutoff values for fasting glucose and random glucose. The ADA defines fasting as no caloric intake for at least 8 hours. Fasting plasma glucose results between 100 to 125 mg/dL indicate increased risk for diabetes (prediabetes).Fasting plasma glucose results greater than or equal to 126 mg/dL meet the criteria for diagnosis of diabetes. In the absence of unequivocal hyperglycemia, results should be confirmed by repeat testing. In a patient with classic symptoms of hyperglycemia or hyperglycemic crisis, random plasma glucose results greater than or equal to 200 mg/dL meet the criteria for diagnosis of diabetes.Reference: Standards of Medical Care in Diabetes 2016, [place] [employer] Association. Diabetes Care. 2016.39(Suppl 1). Performed By: #### 2 4323-8 ####[facility] SPRINGSROCKYDarrick [id number] [place] [address] [place] Potassium [Moles/Vol] 4.1 mmol/L Normal 3.7-5.1 [facility] Comment on above: Order Comment: Gilma ojeda Type: BLOOD SPECIMENOrdering Facility: [facility] Address: [address] [place], [place] [address] Performed By: #### 2 4323-8 ####[facility] SPRINGSLUISITO [id number] [place] [address] [place] Protein [Mass/Vol] 6.5 g/dL Normal 6.3-8.0 [facility] Comment on above: Order Comment: Erwini rusty Type: BLOOD SPECIMENOrdering Facility: [facility] Address: [address] [place], [place] [address] Performed By: #### 2 4323-8 ####[facility]SROCKYLIA [id number] [place] [address] [place] Sodium [Moles/Vol] 138 mmol/L Normal 136-144 [facility] Comment on above: Order Comment: Speci men Type: BLOOD SPECIMENOrdering Facility: [facility] Address: [address] [place] [address] Performed By: #### 2 4323-8 ####[facility] ADRIENLIA [id number] [place], [place] [id number] [place] [address] [place] Urea nitrogen [Mass/Vol] 13 mg/dL Normal 9-24 [facility] Comment on above: Order Comment: Speci men Type: BLOOD SPECIMENOrdering Facility: [facility] Address: [address] [place] [place] [address] Performed By: #### 2 4323-8 ####[facility] SHERRIMARIONNCLIA [id number] [place], [place] [id number] [place] [address] [place] Type AND Screenon 01-13-2025 Ab SCREEN GEL Negative Normal [facility] Comment on above: Order Comment: PRETR ANSFUSION HGB = 8.0 HCT = 23.9 PERFORMED AT [facility] N 06/17/25 AT 0800 N Y A Performed By: #### B CINTHYA [facility] #### [facility] Laboratory [address] [place], [place], [address] BRCon 12-29-2024 RC Normal [facility] Comment on above: Result Comment: [id number] BP RC TRANSFUSED 12/31/24 1105 [id number] BP RC TRANSFUSED 12/31/24 0844 Performed By: #### B CINTHYA [facility] #### [facility] [address] [place], [place], [address] CBC W Auto Differential pane l (Bld)on 12-29-2024 Basophils (Bld) [#/Vol] 10*3/uL Normal <0.11 C [facility] Comment on above: Order Comment: Speci men Type: BLOOD SPECIMENOrdering Facility: [facility] Address: [address] [place] [address] Performed By: #### 5 7021-8 ####[facility] MILLSAMWNCLIA [id number] [place] [address] [place] Basophils/100 WBC (Bld) 0.3 % Normal [facility] Comment on above: Order Comment: Speci men Type: BLOOD SPECIMENOrdering Facility: [facility] Address: [address] [place] [address] Performed By: #### 5 7021-8 ####[facility] SHERRIMARIONROCKYLIA [id number] [place] [address] [place] Differential cell count method Nom (Bld) Auto Normal [facility] Comment on above: Order Comment: Speci men Type: BLOOD SPECIMENOrdering Facility: [facility] Address: [address] [place] [address] Performed By: #### 5 7021-8 ####[facility] SHERRIJENNILIA [id number] [place] [address] [place] Eosinophils (Bld) [#/Vol] 0.05 10*3/uL Normal <0.46 [facility] Comment on above: Order Comment: Speci men Type: BLOOD SPECIMENOrdering Facility: [facility] Address: [address] [place] [address] Performed By: #### 5 7021-8 ####[facility] SHERRIVidhyaROCKYLIA [id number] [place] [address] [place] Eosinophils/100 WBC (Bld) 1.3 % Normal [facility] Comment on above: Order Comment: Speci men Type: BLOOD SPECIMENOrdering Facility: [facility] Address: [address] [place] [address] Performed By: #### 5 7021-8 ####[facility] SHERRIMARIONROCKYLIA [id number] [place] [address] [place] Erythrocyte distribution width (RBC) [Ratio] 19.8 % High 11.5-15.0 [facility] Comment on above: Order Comment: Speci men Type: BLOOD SPECIMENOrdering Facility: [facility] Address: [address] [place] [address] Performed By: #### 5 7021-8 ####[facility] GABBY BECKYNCSAURABH [id number] [place] [address] [place] Hematocrit (Bld) [Volume fraction] 23.4 % Low 39.0-51.0 [facility] Comment on above: Order Comment: Speci men Type: BLOOD SPECIMENOrdering Facility: [facility] Address: [address] [place] [address] Performed By: #### 5 7021-8 ####[facility]INGSLUISITO [id number] [place] [address] [place] Hemoglobin (Bld) [Mass/Vol] 7.6 g/dL Low 13.0-17.0 [facility] Comment on above: Order Comment: Speci men Type: BLOOD SPECIMENOrdering Facility: [facility] Address: [address] [place] [address] Performed By: #### 5 7021-8 ####[facility] SPRINGSLUISITO [id number] [place] [address] [place] Immature granulocytes (Bld) [#/Vol] 10*3/uL Normal <0.10 [facility] Comment on above: Order Comment: Speci men Type: BLOOD SPECIMENOrdering Facility: [facility] Address: [address] [place] [address] Performed By: #### 5 7021-8 ####[facility] SPRINGSNCLIA [id number] [place] [address] [place] Immature granulocytes/100 WBC (Bld) 0.5 % Normal [facility] Comment on above: Order Comment: Speci men Type: BLOOD SPECIMENOrdering Facility: [facility] Address: [address] [place] [address] Performed By: #### 5 7021-8 ####[facility] SPRINGSNCLIA [id number] [place] [address] [place] Lymphocytes (Bld) [#/Vol] 0.69 10*3/uL Low 1.00-4.00 [facility] Comment on above: Order Comment: Speci men Type: BLOOD SPECIMENOrdering Facility: [facility] Address: [address] [place] [address] Performed By: #### 5 7021-8 ####[facility] SPRINGSNCA [id number] [place] [address] [place] Lymphocytes/100 WBC (Bld) 17.7 % Normal [facility] Comment on above: Order Comment: Speci men Type: BLOOD SPECIMENOrdering Facility: [facility] Address: [address] [place] [address] Performed By: #### 5 7021-8 ####[facility] [id number] [place] [address] [place] MCH (RBC) [Entitic mass] 31.9 pg Normal 26.0-34.0 [facility] Comment on above: Order Comment: Speci men Type: BLOOD SPECIMENOrdering Facility: [facility] Address: [address] [place] [address] Performed By: #### 5 7021-8 ####[facility] [id number] [place] [address] [place] MCHC (RBC) [Mass/Vol] 32.5 g/dL Normal 30.5-36.0 [facility] Comment on above: Order Comment: Speci men Type: BLOOD SPECIMENOrdering Facility: [facility] Address: [address] [place] [address] Performed By: #### 5 7021-8 ####[facility] SPRINGSNCLI [id number] [place] [address] [place] MCV (RBC) [Entitic vol] 98.3 fL Normal 80.0-100.0 C [facility] Comment on above: Order Comment: Speci men Type: BLOOD SPECIMENOrdering Facility: [facility] Address: [address] [place] [address] Performed By: #### 5 7021-8 ####[facility] [id number] [place] [address] [place] Monocytes (Bld) [#/Vol] 0.18 10*3/uL Normal <0.87 [facility] Comment on above: Order Comment: Speci men Type: BLOOD SPECIMENOrdering Facility: [facility] Address: [address] [place] [address] Performed By: #### 5 7021-8 ####[facility] [id number] [place] [address] [place] Monocytes/100 WBC (Bld) 4.6 % Normal C [facility] Comment on above: Order Comment: Speci men Type: BLOOD SPECIMENOrdering Facility: [facility] Address: [address] [place] [address] Performed By: #### 5 7021-8 ####[facility] [id number] [place] [address] [place] Neutrophils (Bld) [#/Vol] 2.94 10*3/uL Normal 1.45-7.50 [facility] Comment on above: Order Comment: Speci men Type: BLOOD SPECIMENOrdering Facility: [facility] Address: [address] [place] [address] Performed By: #### 5 7021-8 ####[facility] [id number] [place] [address] [place] Neutrophils/100 WBC (Bld) 75.6 % Normal [facility] Comment on above: Order Comment: Speci men Type: BLOOD SPECIMENOrdering Facility: [facility] Address: [address] [place] [address] Performed By: #### 5 7021-8 ####[facility] SPRINGSNCLESLY [id number] [place] [address] [place] Nucleated RBC (Bld) [#/Vol] 10*3/uL Normal <0.01 [facility] Comment on above: Order Comment: Speci men Type: BLOOD SPECIMENOrdering Facility: [facility] Address: [address] [place] [address] Performed By: #### 5 7021-8 ####[facility] [id number] [place] [address] [place] Nucleated RBC/100 WBC (Bld) [Ratio] 0.0 /100 WBC Normal [facility] Comment on above: Order Comment: Speci men Type: BLOOD SPECIMENOrdering Facility: [facility] Address: [address] [place] [address] Performed By: #### 5 7021-8 ####[facility] [id number] [place] [address] [place] Platelet mean volume (Bld) [Entitic vol] 10.8 fL Normal 9.0-12.7 [facility] Comment on above: Order Comment: Speci men Type: BLOOD SPECIMENOrdering Facility: [facility] Address: [address] [place] [address] Performed By: #### 5 7021-8 ####[facility] [id number] [place] [address] [place] Platelets (Bld) [#/Vol] 128 10*3/uL Low 150-400 [facility] Comment on above: Order Comment: Speci men Type: BLOOD SPECIMENOrdering Facility: [facility] Address: [address] [place] [address] Performed By: #### 5 7021-8 ####[facility] ADRIENLIA [id number] [place] [address] [place] RBC (Bld) [#/Vol] 2.38 10*6/uL Low 4.20-6.00 [facility] Comment on above: Order Comment: Speci men Type: BLOOD SPECIMENOrdering Facility: [facility] Address: [address] [place], [place] [address] Performed By: #### 5 7021-8 ####[facility] SPRINGSNCLESLYA [id number] [place] [address] [place] WBC (Bld) [#/Vol] 3.89 10*3/uL Normal 3.70-11.00 [facility] Comment on above: Order Comment: Speci men Type: BLOOD SPECIMENOrdering Facility: [facility] Address: [address] [place], [place] [address] Performed By: #### 5 7021-8 ####[facility] SPRINGSELLIEA [id number] [place] [address] [place] CNPNon 12-29-2024 CNPN Normal [facility] Comprehensive metabolic 2000 panelon 12-29-2024 Albumin [Mass/Vol] 4.4 g/dL Normal 3.9-4.9 [facility] Comment on above: Order Comment: Speci men Type: BLOOD SPECIMENOrdering Facility: [facility] Address: [address] [place], [place] [address] Performed By: #### 2 4323-8 ####[facility] SPRINGSNCLIA [id number] [place] [address] [place] ALP [Catalytic activity/Vol] 108 U/L Normal 38-113 [facility] Comment on above: Order Comment: Speci men Type: BLOOD SPECIMENOrdering Facility: [facility] Address: [address] [place] [address] Performed By: #### 2 4323-8 ####[facility] MILLTOWNCLIA [id number] [place] [address] [place] ALT [Catalytic activity/Vol] 72 U/L High 10-54 [facility] Comment on above: Order Comment: Speci men Type: BLOOD SPECIMENOrdering Facility: [facility] Address: [address] [place] [address] Performed By: #### 2 4323-8 ####[facility] SPRINGSWNCLIA [id number] [place] [address] [place] Anion gap [Moles/Vol] 7 mmol/L Low 8-15 [facility] Comment on above: Order Comment: Speci men Type: BLOOD SPECIMENOrdering Facility: [facility] Address: [address] [place] [address] Performed By: #### 2 4323-8 ####[facility] SPRINGSNCLIA [id number] [place] [address] [place] AST [Catalytic activity/Vol] 52 U/L High 14-40 [facility] Comment on above: Order Comment: Speci men Type: BLOOD SPECIMENOrdering Facility: [facility] Address: [address] [place] [address] Performed By: #### 2 4323-8 ####[facility] SPRINGSWNCLIA [id number] [place] [address] [place] Bilirubin [Mass/Vol] 0.7 mg/dL Normal 0.2-1.3 [facility] Comment on above: Order Comment: Speci men Type: BLOOD SPECIMENOrdering Facility: [facility] Address: [address] [place] [address] Performed By: #### 2 4323-8 ####[facility] SPRINGSNCLIA [id number] [place] [address] [place] Calcium [Mass/Vol] 9.7 mg/dL Normal 8.5-10.2 [facility] Comment on above: Order Comment: Speci men Type: BLOOD SPECIMENOrdering Facility: [facility] Address: [address] [place] [address] Performed By: #### 2 4323-8 ####[facility] MILLTOWNCLIA [id number] [place] [address] [place] Chloride [Moles/Vol] 102 mmol/L Normal 98-107 [facility] Comment on above: Order Comment: Speci men Type: BLOOD SPECIMENOrdering Facility: [facility] Address: [address] [place] [address] Performed By: #### 2 4323-8 ####[facility] SPRINGSNCLI [id number] [place] [address] [place] CO2 [Moles/Vol] 29 mmol/L Normal 22-30 [facility] Comment on above: Order Comment: Speci men Type: BLOOD SPECIMENOrdering Facility: [facility] Address: [address] [place] [address] Performed By: #### 2 4323-8 ####[facility] [id number] [place] [address] [place] Creatinine [Mass/Vol] 0.73 mg/dL Normal 0.73-1.22 [facility] Comment on above: Order Comment: Speci men Type: BLOOD SPECIMENOrdering Facility: [facility] Address: [address] [place] [address] Performed By: #### 2 4323-8 ####[facility] SPRINGSNCLIA [id number] [place] [address] [place] Creatinine and Glomerular filtration rate.predicted panel (S/P/Bld) 92 mL/min/1.73m??? Normal >=60 [facility] Comment on above: Order Comment: Speci men Type: BLOOD SPECIMENOrdering Facility: [facility] Address: [address] [place] [id number] Result Comment: Lilly mated Glomerular Filtration Rate (eGFR) is calculated using the 2020 CKD-EPI creatinine equation. This equation utilizes serum creatinine, sex, and age as parameters. The creatinine assay has traceable calibration to isotope dilution-mass spectrometry. Refer to KDIGO guidelines for clinical interpretation. In patients with unstable renal function, e.g. those with acute kidney injury, the eGFR may not accurately reflect actual GFR. Performed By: #### 2 4323-8 ####[facility] [id number] [place] [address] [place] Glucose [Mass/Vol] 118 mg/dL High 74-99 [facility] Comment on above: Order Comment: Gilma ojeda Type: BLOOD SPECIMENOrdering Facility: [facility] Address: [address] [place] [address] Result Comment: The [place] Diabetes Association (ADA) provides guidance for cutoff values for fasting glucose and random glucose. The ADA defines fasting as no caloric intake for at least 8 hours. Fasting plasma glucose results between 100 to 125 mg/dL indicate increased risk for diabetes (prediabetes).Fasting plasma glucose results greater than or equal to 126 mg/dL meet the criteria for diagnosis of diabetes. In the absence of unequivocal hyperglycemia, results should be confirmed by repeat testing. In a patient with classic symptoms of hyperglycemia or hyperglycemic crisis, random plasma glucose results greater than or equal to 200 mg/dL meet the criteria for diagnosis of diabetes.Reference: Standards of Medical Care in Diabetes 2016, [place] [employer] Association. Diabetes Care. 2016.39(Suppl 1). Performed By: #### 2 4323-8 ####[facility] [id number] [place] [address] [place] Potassium [Moles/Vol] 4.1 mmol/L Normal 3.7-5.1 [facility] Comment on above: Order Comment: Gilma ojeda Type: BLOOD SPECIMENOrdering Facility: [facility] Address: [address] [id number] Performed By: #### 2 4323-8 ####[facility] MILLWNCLIA [id number] [place] [address] [place] Protein [Mass/Vol] 6.6 g/dL Normal 6.3-8.0 [facility] Comment on above: Order Comment: Speci men Type: BLOOD SPECIMENOrdering Facility: [facility] Address: [address] [place] [address] Performed By: #### 2 4323-8 ####[facility] [id number] [place] [address] [place] Sodium [Moles/Vol] 138 mmol/L Normal 136-144 [facility] Comment on above: Order Comment: Speci men Type: BLOOD SPECIMENOrdering Facility: [facility] Address: [address] [place] [address] Performed By: #### 2 4323-8 ####[facility] [id number] [place] [address] [place] Urea nitrogen [Mass/Vol] 13 mg/dL Normal 9-24 [facility] Comment on above: Order Comment: Speci men Type: BLOOD SPECIMENOrdering Facility: [facility] Address: [address] [place] [address] Performed By: #### 2 4323-8 ####[facility] SPRINGSNCLI [id number] [address] [place] Type AND Screenon 12-29-2024 ABO and Rh group Nom (Bld) Blood group B Rh(D) positive Normal [facility] Comment on above: Order Comment: N 12/31/2024 @0800 N Y A Performed By: #### B DOMONIQUE MENDES #### [facility] [address] [place] [place], [address] B2 Microglob SerPl-mCncon 02 -06-2025 Dric-1-Mfplpcwbqmvik [Mass/Vol] 3.1 ug/mL High <3.1 [facility] Comment on above: Order Comment: Speci men Type: BLOOD SPECIMENOrdering Facility: [facility] Address: [address] [place] [address] Result Comment: Beta -2 Microglobulin test is performed using the [employer] immunoturbidimetric method. Results obtained with different methods or kits cannot be used interchangeably. Performed By: #### 1 952-1, 2276-4 ####[facility] LABCLIA [id number] [facility] [id number] [id number] [place] BRCon 12-16-2024 RC Normal [facility] Comment on above: Result Comment: [id number] BN RC TRANSFUSED 12/17/24 0859 [id number] OP RC TRANSFUSED 12/17/24 1046 Performed By: #### B [facility] #### [facility] [address] [facility] [place], [place], [address] CBC W Auto Differential pane l (Bld)on 12-16-2024 Basophils (Bld) [#/Vol] 10*3/uL Normal <0.11 C [facility] Comment on above: Order Comment: Speci men Type: BLOOD SPECIMENOrdering Facility: [facility] Address: [address] [place] [address] Performed By: #### 5 7021-8 ####[facility] [id number] [place] [address] [place] Basophils/100 WBC (Bld) 0.3 % Normal [facility] Comment on above: Order Comment: Speci men Type: BLOOD SPECIMENOrdering Facility: [facility] Address: [address] [place] [address] Performed By: #### 5 7021-8 ####[facility]SNCP[facility] [id number] [place] [address] [place] Differential cell count method Nom (Bld) Auto Normal [facility] Comment on above: Order Comment: Speci men Type: BLOOD SPECIMENOrdering Facility: [facility] Address: [address] [place] [address] Performed By: #### 5 7021-8 ####[facility] SHERRIMARIONNCLESLY [id number] [place] [address] [place] Eosinophils (Bld) [#/Vol] 0.03 10*3/uL Normal <0.46 [facility] Comment on above: Order Comment: Speci men Type: BLOOD SPECIMENOrdering Facility: [facility] Address: [address] [place] [address] Performed By: #### 5 7021-8 ####[facility]SROCKYPAR[facility] [id number] [place] [address] [place] Eosinophils/100 WBC (Bld) 0.8 % Normal [facility] Comment on above: Order Comment: Speci men Type: BLOOD SPECIMENOrdering Facility: [facility] Address: [address] [place] [address] Performed By: #### 5 7021-8 ####[facility] [id number] [place] [address] [place] Erythrocyte distribution width (RBC) [Ratio] 20.3 % High 11.5-15.0 [facility] Comment on above: Order Comment: Speci men Type: BLOOD SPECIMENOrdering Facility: [facility] Address: [address] [place] [address] Performed By: #### 5 7021-8 ####[facility] SPRINGSNCLI [id number] [place] [address] [place] Hematocrit (Bld) [Volume fraction] 23.6 % Low 39.0-51.0 [facility] Comment on above: Order Comment: Speci men Type: BLOOD SPECIMENOrdering Facility: [facility] Address: [address] [place] [address] Performed By: #### 5 7021-8 ####[facility] SPRINGSNCLIA [id number] [place] [address] [place] Hemoglobin (Bld) [Mass/Vol] 7.7 g/dL Low 13.0-17.0 [facility] Comment on above: Order Comment: Speci men Type: BLOOD SPECIMENOrdering Facility: [facility] Address: [address] [place] [address] Performed By: #### 5 7021-8 ####[facility] [id number] [place] [address] [place] Immature granulocytes (Bld) [#/Vol] 10*3/uL Normal <0.10 [facility] Comment on above: Order Comment: Speci men Type: BLOOD SPECIMENOrdering Facility: [facility] Address: [address] [place] [address] Performed By: #### 5 7021-8 ####[facility] [id number] [place] [address] [place] Immature granulocytes/100 WBC (Bld) 0.6 % Normal [facility] Comment on above: Order Comment: Speci men Type: BLOOD SPECIMENOrdering Facility: [facility] Address: [address] [place] [address] Performed By: #### 5 7021-8 ####[facility] [id number] [place] [address] [place] Lymphocytes (Bld) [#/Vol] 0.63 10*3/uL Low 1.00-4.00 [facility] Comment on above: Order Comment: Speci men Type: BLOOD SPECIMENOrdering Facility: [facility] Address: [address] [place] [address] Performed By: #### 5 7021-8 ####[facility] [id number] [place] [address] [place] Lymphocytes/100 WBC (Bld) 17.7 % Normal [facility] Comment on above: Order Comment: Speci men Type: BLOOD SPECIMENOrdering Facility: [facility] Address: [address] [place] [address] Performed By: #### 5 7021-8 ####[facility] [id number] [place] [address] [place] MCH (RBC) [Entitic mass] 31.6 pg Normal 26.0-34.0 [facility] Comment on above: Order Comment: Speci men Type: BLOOD SPECIMENOrdering Facility: [facility] Address: [address] [place] [address] Performed By: #### 5 7021-8 ####[facility] [id number] [place] [address] [place] MCHC (RBC) [Mass/Vol] 32.6 g/dL Normal 30.5-36.0 [facility] Comment on above: Order Comment: Speci men Type: BLOOD SPECIMENOrdering Facility: [facility] Address: [address] [place] [address] Performed By: #### 5 7021-8 ####[facility] [id number] [place] [address] [place] MCV (RBC) [Entitic vol] 96.7 fL Normal 80.0-100.0 C [facility] Comment on above: Order Comment: Speci men Type: BLOOD SPECIMENOrdering Facility: [facility] Address: [address] [place] [address] Performed By: #### 5 7021-8 ####[facility] SPRINGSNCLIA [id number] [place] [address] [place] Monocytes (Bld) [#/Vol] 0.13 10*3/uL Normal <0.87 [facility] Comment on above: Order Comment: Speci men Type: BLOOD SPECIMENOrdering Facility: [facility] Address: [address] [place] [address] Performed By: #### 5 7021-8 ####[facility] SPRINGSNCLIA [id number] [place] [address] [place] Monocytes/100 WBC (Bld) 3.7 % Normal [facility] Comment on above: Order Comment: Speci men Type: BLOOD SPECIMENOrdering Facility: [facility] Address: [address] [place] [address] Performed By: #### 5 7021-8 ####[facility] SPRINGSNCA [id number] [place] [address] [place] Neutrophils (Bld) [#/Vol] 2.74 10*3/uL Normal 1.45-7.50 [facility] Comment on above: Order Comment: Speci men Type: BLOOD SPECIMENOrdering Facility: [facility] Address: [address] [place] [address] Performed By: #### 5 7021-8 ####[facility] [id number] [place] [address] [place] Neutrophils/100 WBC (Bld) 76.9 % Normal [facility] Comment on above: Order Comment: Speci men Type: BLOOD SPECIMENOrdering Facility: [facility] Address: [address] [place] [address] Performed By: #### 5 7021-8 ####[facility]IT[facility] [id number] [place] [address] [place] Nucleated RBC (Bld) [#/Vol] 10*3/uL Normal <0.01 [facility] Comment on above: Order Comment: Speci men Type: BLOOD SPECIMENOrdering Facility: [facility] Address: [address] [place] [address] Performed By: #### 5 7021-8 ####[facility] SHERRIVidhyaNCLIA [id number] [place] [address] [place] Nucleated RBC/100 WBC (Bld) [Ratio] 0.0 /100 WBC Normal [facility] Comment on above: Order Comment: Speci men Type: BLOOD SPECIMENOrdering Facility: [facility] Address: [address] [place] [address] Performed By: #### 5 7021-8 ####[facility] SPRINGSROCKYLIA [id number] [place] [address] [place] Platelet mean volume (Bld) [Entitic vol] 10.9 fL Normal 9.0-12.7 [facility] Comment on above: Order Comment: Speci men Type: BLOOD SPECIMENOrdering Facility: [facility] Address: [address] [place] [address] Performed By: #### 5 7021-8 ####[facility] [id number] [place] [address] [place] Platelets (Bld) [#/Vol] 141 10*3/uL Low 150-400 [facility] Comment on above: Order Comment: Speci men Type: BLOOD SPECIMENOrdering Facility: [facility] Address: [address] [place] [address] Performed By: #### 5 7021-8 ####[facility]IT[facility] [id number] [place] [address] [place] RBC (Bld) [#/Vol] 2.44 10*6/uL Low 4.20-6.00 [facility] Comment on above: Order Comment: Speci men Type: BLOOD SPECIMENOrdering Facility: [facility] Address: [address] [place] [address] Performed By: #### 5 7021-8 ####[facility] [id number] [place] [address] [place] WBC (Bld) [#/Vol] 3.56 10*3/uL Low 3.70-11.00 [facility] Comment on above: Order Comment: Speci men Type: BLOOD SPECIMENOrdering Facility: [facility] Address: [address] [place] [address] Performed By: #### 5 7021-8 ####[facility] HOSPITALDarrick [id number] [place] [address] [place] CNOVSPon 12-16-2024 CNOVSP Normal [facility] CNPNon 12-16-2024 CNPN Normal [facility] Comprehensive metabolic 2000 panelon 12-16-2024 Albumin [Mass/Vol] 4.5 g/dL Normal 3.9-4.9 [facility] Comment on above: Order Comment: Speci men Type: BLOOD SPECIMENOrdering Facility: [facility] Address: [address] [place] [address] Result Comment: Dony ected result: Previously reported as 4.7 g/dL on 12/16/2024 at 11:29 AM EST. Performed By: #### 2 532-0 ####[facility] SPRINGSLUISITO [id number] [place] [address] [place]#### 24359-5 ####[facility] LABCLIA [id number] [place], [place] [id number] [place] [address] [place] ALP [Catalytic activity/Vol] 99 U/L Normal 38-113 [facility] Comment on above: Order Comment: Speci men Type: BLOOD SPECIMENOrdering Facility: [facility] Address: [address] [place] [address] Result Comment: Dony ected result: Previously reported as 101 U/L on 12/16/2024 at 11:29 AM EST. Performed By: #### 2 532-0 ####[facility]OSPITALSAURABH [id number] [address]#### 50683-6 ####[facility] LABCLIA [id number] [place] [address] [place] ALT With P-5'-P [Catalytic activity/Vol] 60 U/L High 10-54 [facility] Comment on above: Order Comment: Speci men Type: BLOOD SPECIMENOrdering Facility: [facility] Address: [address] [place] [address] Result Comment: Dony ected result: Previously reported as 61 U/L on 12/16/2024 at 11:29 AM EST. Performed By: #### 2 532-0 ####[facility] [id number] [address] [place]#### 08950-4 ####[facility] LABCLIA [id number] [place] [address] [place] Anion gap [Moles/Vol] 9 mmol/L Normal 8-15 [facility] Comment on above: Order Comment: Speci men Type: BLOOD SPECIMENOrdering Facility: [facility] Address: [address] [place] [address] Performed By: #### 2 532-0 ####[facility] [id number] [address]#### 86888-0 ####[facility] LABCLIA [id number] [place] [address] [place] AST With P-5'-P [Catalytic activity/Vol] 51 U/L High 14-40 [facility] Comment on above: Order Comment: Speci men Type: BLOOD SPECIMENOrdering Facility: [facility] Address: [address] [place] [address] Result Comment: Dony ected result: Previously reported as 43 U/L on 12/16/2024 at 11:29 AM EST. Performed By: #### 2 532-0 ####[facility] MILLWNCLIA [id number] [address]#### 87214-1 ####[facility] LABCLIA [id number] [place] [address] [place] Bilirubin [Mass/Vol] 1.0 mg/dL Normal 0.2-1.3 [facility] Comment on above: Order Comment: Speci men Type: BLOOD SPECIMENOrdering Facility: [facility] Address: [address] [place] [address] Performed By: #### 2 532-0 ####[facility] [id number] [address] [place]#### 96658-5 ####[facility] LABCLIA [id number] [place] [address] [place] Calcium [Mass/Vol] 9.6 mg/dL Normal 8.5-10.2 [facility] Comment on above: Order Comment: Speci men Type: BLOOD SPECIMENOrdering Facility: [facility] Address: [address] [place] [address] Result Comment: Dony ected result: Previously reported as 10.0 mg/dL on 12/16/2024 at 11:29 AM EST. Performed By: #### 2 532-0 ####[facility] [id number] [address] [place]#### 82619-6 ####[facility] LABCLIA [id number] [place] [id number] [place] Chloride [Moles/Vol] 101 mmol/L Normal 98-107 [facility] Comment on above: Order Comment: Speci men Type: BLOOD SPECIMENOrdering Facility: [facility] Address: [address] [place] [address] Performed By: #### 2 532-0 ####[facility]ITALL[facility] [id number] [place] [address] [facility] [place]#### 90213-9 ####[facility] LABCLIA [id number] [place] [address] [place] CO2 [Moles/Vol] 26 mmol/L Normal 22-30 [facility] Comment on above: Order Comment: Speci men Type: BLOOD SPECIMENOrdering Facility: [facility] Address: [address] [place] [address] Result Comment: Dony ected result: Previously reported as 28 mmol/L on 12/16/2024 at 11:29 AM EST. Performed By: #### 2 532-0 ####[facility] [id number] [address] [place]#### 52380-4 ####[facility] LABCLIA [id number] [place] [id number] [place] [facility] Creatinine [Mass/Vol] 0.77 mg/dL Normal 0.73-1.22 [facility] Comment on above: Order Comment: Speci men Type: BLOOD SPECIMENOrdering Facility: [facility] Address: [address] [place] [address] Result Comment: Dony ected result: Previously reported as 0.78 mg/dL on 12/16/2024 at 11:29 AM EST. Performed By: #### 2 532-0 ####[facility] [id number] [address] [place]#### 63201-1 ####[facility] LABCLIA [id number] [place] [address] [facility] Creatinine and Glomerular filtration rate.predicted panel (S/P/Bld) 91 mL/min/1.73m??? Normal >=60 [facility] Comment on above: Order Comment: Speci men Type: BLOOD SPECIMENOrdering Facility: [facility] Address: [address] [place] [address] Result Comment: Lilly mated Glomerular Filtration Rate (eGFR) is calculated using the 2020 CKD-EPI creatinine equation. This equation utilizes serum creatinine, sex, and age as parameters. The creatinine assay has traceable calibration to isotope dilution-mass spectrometry. Refer to KDIGO guidelines for clinical interpretation. In patients with unstable renal function, e.g. those with acute kidney injury, the eGFR may not accurately reflect actual GFR.Corrected result: Previously reported as 90 mL/min/1.73m??? on 12/16/2024 at 11:29 AM EST. Performed By: #### 2 532-0 ####[facility] [id number] [address] STATES [place]#### 61419-5 ####[facility] LABCLIA [id number] [place], [place] [address] [place] [address] OF [facility] Glucose [Mass/Vol] 124 mg/dL High 74-99 [facility] Comment on above: Order Comment: Speci men Type: BLOOD SPECIMENOrdering Facility: [facility] Address: [address] [place], [place] [id number] Result Comment: The [place] Diabetes Association (ADA) provides guidance for cutoff values for fasting glucose and random glucose. The ADA defines fasting as no caloric intake for at least 8 hours. Fasting plasma glucose results between 100 to 125 mg/dL indicate increased risk for diabetes (prediabetes).Fasting plasma glucose results greater than or equal to 126 mg/dL meet the criteria for diagnosis of diabetes. In the absence of unequivocal hyperglycemia, results should be confirmed by repeat testing. In a patient with classic symptoms of hyperglycemia or hyperglycemic crisis, random plasma glucose results greater than or equal to 200 mg/dL meet the criteria for diagnosis of diabetes.Reference: Standards of Medical Care in Diabetes 2016, [place] Diabetes Association. Diabetes Care. 2016.39(Suppl 1).Corrected result: Previously reported as 132 mg/dL on 12/16/2024 at 11:29 AM EST. Performed By: #### 2 532-0 ####[facility]ITALLI [id number] [address] STATES [place]#### 03085-8 ####[facility] LABCLIA [id number] [place] [address] [place] Potassium [Moles/Vol] 4.2 mmol/L Normal 3.7-5.1 [facility] Comment on above: Order Comment: Speci men Type: BLOOD SPECIMENOrdering Facility: [facility] Address: [address] [place] [address] Performed By: #### 2 532-0 ####[facility] SPRINGSWNCLIA [id number] [place] [address] [place]#### 50328-6 ####[facility] LABCLIA [id number] [place] [address] [place] Protein [Mass/Vol] 7.0 g/dL Normal 6.3-8.0 [facility] Comment on above: Order Comment: Speci men Type: BLOOD SPECIMENOrdering Facility: [facility] Address: [address] [place] [address] Result Comment: Dony ected result: Previously reported as 7.1 g/dL on 12/16/2024 at 11:29 AM EST. Performed By: #### 2 532-0 ####[facility] SPRINGSWNCLIA [id number] [address] [place]#### 93625-8 ####[facility] LABCLIA [id number] [place] [address] [place] Sodium [Moles/Vol] 136 mmol/L Normal 136-144 [facility] Comment on above: Order Comment: Speci men Type: BLOOD SPECIMENOrdering Facility: [facility] Address: [address] [place] [address] Performed By: #### 2 532-0 ####[facility] SPRINGSNCLIA [id number] [place] [address] [place]#### 40570-7 ####[facility] LABCLIA [id number] [place] [address] [place] Urea nitrogen [Mass/Vol] 11 mg/dL Normal 9-24 [facility] Comment on above: Order Comment: Speci men Type: BLOOD SPECIMENOrdering Facility: [facility] Address: [address] [place] [address] Result Comment: Dony ected result: Previously reported as 12 mg/dL on 12/16/2024 at 11:29 AM EST. Performed By: #### 2 532-0 ####[facility] [id number] [place] [address] [place]#### 31516-0 ####[facility] LABCLIA [id number] [place] [id number] [place] Ferritin SerPl-mCncon 2024 Ferritin [Mass/Vol] 30259.0 ng/mL High 30.3-565.7 [facility] Comment on above: Order Comment: Speci men Type: BLOOD SPECIMENOrdering Facility: [facility] Address: [address] [place] [address] Performed By: #### 1 952-1, 2276-4 ####[facility] LABCLIA [id number] [facility] [id number] [place] [address] [place] Folate SerPl-mCncon 12-16-19 25 Folate [Mass/Vol] ng/mL Normal >4.7 [facility] Comment on above: Order Comment: Speci men Type: BLOOD SPECIMENOrdering Facility: [facility] Address: [address] [place] [address] Result Comment: A re sult of > 20 ng/mL is not necessarily indicative of a pathologic or treatable condition: it reflects a limitation of the test methodology.Assay reference range: 4.8 to 24.2 ng/mL. Suitable for detection of folate deficiency.Reference:Folate III (Folate III) [package insert V 1.0 [place]]. [facility], [place], [place]: September 2015. Performed By: #### 2 132-9, 2885-2, 2284-8 ####[facility] LABCLIA [id number] [address] [place] IMMUNOFIXATION SCREEN, SERUM on 12-16-2024 INTERPRETATION ([facility]) Normal [facility] Comment on above: Order Comment: Speci men Type: BLOOD SPECIMENOrdering Facility: [facility] Address: [address] [place] [address] Performed By: #### I FESC ####[facility] LABIA [id number] [place] [address] [place] MPA RESULT M protein is present. Abnormal No M protein is identified. [facility] Comment on above: Order Comment: Speci men Type: BLOOD SPECIMENOrdering Facility: [facility] Address: [address] [place] [address] Performed By: #### I FES ####[facility] LABIA [id number] [address] [place] STAFF REVIEW ([facility]) Reviewed by Ubaldo calderon M.D. Normal [facility] Comment on above: Order Comment: Speci men Type: BLOOD SPECIMENOrdering Facility: [facility] Address: [address] [place] [address] Performed By: #### I FESC ####[facility] LABCLIA [id number] [place] [address] [place] IMMUNOGLOBULINS,IGG,IGA,IGMo n 12-16-2024 IgA [Mass/Vol] 222 mg/dL Normal 70-400 [facility] Comment on above: Order Comment: Speci men Type: BLOOD SPECIMENOrdering Facility: [facility] Address: [address] [place] [address] Performed By: #### S ERIMM ####[facility] LABCLIA [id number] [place] [address] [place] IgG [Mass/Vol] 635 mg/dL Low 700-1600 [facility] Comment on above: Order Comment: Speci men Type: BLOOD SPECIMENOrdering Facility: [facility] Address: [address] [place] [address] Performed By: #### S ERIMM ####[facility] LABCLIA [id number] [place] [address] [place] IgM [Mass/Vol] 637 mg/dL High 40-230 [facility] Comment on above: Order Comment: Speci men Type: BLOOD SPECIMENOrdering Facility: [facility] Address: [address] [place] [address] Performed By: #### S ERIMM ####[facility] LABIA [id number] [place] [address] [place] KAPPA/GREGORY,FREE,SERon 2024 Immunoglobulin light chains.kappa.free (S) [Mass/Vol] 65.8 mg/L High 3.3-19.4 [facility] Comment on above: Order Comment: Speci men Type: BLOOD SPECIMENOrdering Facility: [facility] Address: [address] [place] [address] Result Comment: Rare ly, increased serum free light chains levels may not be detected or accurately quantified due to prozone phenomenon or in high viscosity samples using this immunoturbidimetric assay. Correlation with other laboratory results and clinical findings is recommended.The [place] Free Light Chain was performed using the Binding Site Optilite immunoturbidimetric method. Result obtained with different assay methods or kits cannot be used interchangeably. Performed By: #### K LFRS ####[facility] LABIA [id number] [place] [address] [place] Immunoglobulin light chains.kappa/Immunoglob ulin light chains.lambda (S) [Mass ratio] 2.61 High 0.26-1.65 [facility] Comment on above: Order Comment: Speci men Type: BLOOD SPECIMENOrdering Facility: [facility] Address: [address] [place] [address] Performed By: #### K LFRS ####[facility] LABCLIA [id number] [place] [address] [place] Immunoglobulin light chains.lambda.free [Mass/Vol] 25.2 mg/L Normal 5.7-26.3 [facility] Comment on above: Order Comment: Speci men Type: BLOOD SPECIMENOrdering Facility: [facility] Address: [address] [place] [address] Result Comment: Rare ly, increased serum free light chains levels may not be detected or accurately quantified due to prozone phenomenon or in high viscosity samples using this immunoturbidimetric assay. Correlation with other laboratory results and clinical findings is recommended.The Lambda Free Light Chain was performed using the Binding Site Optilite immunoturbidimetric method. Result obtained with different assay methods or kits cannot be used interchangeably. Performed By: #### K LFRS ####[facility] LABCLIA [id number] [place] [address] [place] LDH SerPl-cCncon 12-16-2024 LDH [Catalytic activity/Vol] 159 U/L Normal 135-225 [facility] Comment on above: Order Comment: Speci men Type: BLOOD SPECIMENOrdering Facility: [facility] Address: [address] [place] [address] Performed By: #### 2 532-0 ####[facility] [id number] [place] [address] [place]#### 07900-1 ####[facility] LABCLIA [id number] [place] [address] [place] Methylmalonate SerPl-sCncon 12-16-2024 Methylmalonate [Moles/Vol] 0.11 umol/L Normal <=0.40 [facility] Comment on above: Order Comment: Speci men Type: BLOOD SPECIMENOrdering Facility: [facility] Address: [address] [place] [address] Result Comment: This test was developed, and its performance characteristics determined by the [facility] Department of Pathology and Laboratory Medicine. It has not been cleared or approved by the FDA. The [facility] Department of Pathology and Laboratory Medicine is regulated under CLIA as qualified to perform high-complexity testing. This test is used for clinical purposes. It should not be regarded as investigational or for research. Performed By: #### 1 3964-2 ####[facility] H[facility]PITALIA [id number] [place] [address] [place] PROTEIN ELECTROPHORESIS SERU M (P)on 12-16-2024 Albumin [Mass/Vol] 4.62 g/dL Normal 3.43-5.41 [facility] Comment on above: Order Comment: Speci men Type: BLOOD SPECIMENOrdering Facility: [facility] Address: [address] [place] [address] Performed By: #### L [id number] ####[facility] [id number] [place] [address] [place] Alpha 1 globulin Elph [Mass/Vol] 0.26 g/dL Normal 0.18-0.43 [facility] Comment on above: Order Comment: Speci men Type: BLOOD SPECIMENOrdering Facility: [facility] Address: [address] [place] [address] Performed By: #### L [id number] ####[facility] LABIA [id number] [place] [address] [place] Alpha 2 globulin Elph [Mass/Vol] 0.54 g/dL Normal 0.42-0.98 [facility] Comment on above: Order Comment: Speci men Type: BLOOD SPECIMENOrdering Facility: [facility] Address: [address] [place] [address] Performed By: #### L [id number] ####[facility] LABIA [id number] [id number] [address] [place] Beta globulin Elph [Mass/Vol] 0.55 g/dL Low 0.61-1.17 [facility] Comment on above: Order Comment: Speci men Type: BLOOD SPECIMENOrdering Facility: [facility] Address: [address] [place] [address] Performed By: #### L [id number] ####[facility] LABCLIA [id number] [place] [address] [place] Gamma globulin Elph [Mass/Vol] 0.93 g/dL Normal 0.53-1.51 [facility] Comment on above: Order Comment: Speci men Type: BLOOD SPECIMENOrdering Facility: [facility] Address: [address] [place] [address] Performed By: #### L [id number] ####[facility] LABCLIA [id number] [place] [address] [place] [place] INTERPRETATION COMMENT FOR PROTEIN ELECTROPHORESIS Normal [facility] Comment on above: Order Comment: Speci men Type: BLOOD SPECIMENOrdering Facility: [facility] Address: [address] [place] [address] Performed By: #### L [id number] ####[facility] LABCLIA [id number] [place] [address] [place] M-PROTEIN LOCATION Normal [facility] Comment on above: Order Comment: Speci men Type: BLOOD SPECIMENOrdering Facility: [facility] Address: [address] [place] [address] Result Comment: Not Applicable. Performed By: #### L [id number] ####[facility] LABCLIA [id number] [place] [address] [place] Protein Fractions [Interp] An atypical region of restricted mobility is identified on protein electrophoresis. Abnormal No definitive M protein is identified on protein electrophor esis. [facility] Comment on above: Order Comment: Speci men Type: BLOOD SPECIMENOrdering Facility: [facility] Address: [address] [place] [address] Performed By: #### L [id number] ####[facility] LABCLIA [id number] [place] [address] [place] Protein.monoclonal Elph [Mass/Vol] 0.00 g/dL Normal <=0.00 [facility] Comment on above: Order Comment: Speci men Type: BLOOD SPECIMENOrdering Facility: [facility] Address: [address] [place] [address] Performed By: #### L [id number] ####[facility] LABIA [id number] [place] [address] [place] SPE STAFF REVIEW Reviewed by Ubaldo calderon M.D. Normal [facility] Comment on above: Order Comment: Speci men Type: BLOOD SPECIMENOrdering Facility: [facility] Address: [address] [place] [address] Performed By: #### L [id number] ####[facility] LABCLIA [id number] [place] [address] [place] Prot SerPl-mCncon 12-16-2024 Protein [Mass/Vol] 6.9 g/dL Normal 6.3-8.0 [facility] Comment on above: Order Comment: Speci men Type: BLOOD SPECIMENOrdering Facility: [facility] Address: [address] [place] [address] Performed By: #### 2 132-9, 2885-2, 2284-8 ####[facility] LABCLIA [id number] [place] [address] [place] Type AND Screenon 12-16-2024 Ab SCREEN GEL Negative Normal [facility] Comment on above: Order Comment: PRETR ANSFUSION HGB = 8.0 HCT = 23.9 PERFORMED AT [facility] N 06/17/25 AT 0800 N Y A Performed By: #### B CINTHYA [facility] #### [facility] [address] [place], [place], [id number] Vit B12 [facility] Cobalamin (Vitamin B12) [Mass/Vol] 574 pg/mL Normal 232-1245 [facility] Comment on above: Order Comment: Speci men Type: BLOOD SPECIMENOrdering Facility: [facility] Address: [address] [place] [address] Performed By: #### 2 132-9, 2885-2, 2284-8 ####[facility] LABCLIA [id number] [facility] [address] [place] [address] [place] BRCon 12-02-2024 RC Normal Neg [facility] Comment on above: Result Comment: [id number] ON RC TRANSFUSED 12/03/24 1026 [id number] ON RC TRANSFUSED 12/03/24 0832 Performed By: #### B , [facility] #### [facility] [address] [place], [place], [id number] CBC W Auto Differential pane l (Bld)on 12-02-2024 Basophils (Bld) [#/Vol] 10*3/uL Normal <0.11 [facility] Comment on above: Order Comment: Speci men Type: BLOOD SPECIMENOrdering Facility: [facility] Address: [address] [place] [address] Performed By: #### 5 7021-8 ####[facility]INGSWNCLIA [id number] [place] [address] [place] Basophils/100 WBC (Bld) 0.3 % Normal [facility] Comment on above: Order Comment: Speci men Type: BLOOD SPECIMENOrdering Facility: [facility] Address: [address] [place] [address] Performed By: #### 5 7021-8 ####[facility] SPRINGSNCLIA [id number] [place] [address] [place] Differential cell count method Nom (Bld) Auto Normal [facility] Comment on above: Order Comment: Speci men Type: BLOOD SPECIMENOrdering Facility: [facility] Address: [address] [place] [address] Performed By: #### 5 7021-8 ####[facility] [id number] [place] [address] [place] Eosinophils (Bld) [#/Vol] 0.03 10*3/uL Normal <0.46 [facility] Comment on above: Order Comment: Speci men Type: BLOOD SPECIMENOrdering Facility: [facility] Address: [address] [place] [address] Performed By: #### 5 7021-8 ####[facility] [id number] [place] [address] [place] Eosinophils/100 WBC (Bld) 0.9 % Normal [facility] Comment on above: Order Comment: Speci men Type: BLOOD SPECIMENOrdering Facility: [facility] Address: [address] [place] [address] Performed By: #### 5 7021-8 ####[facility] [id number] [place] [address] [place] Erythrocyte distribution width (RBC) [Ratio] 20.5 % High 11.5-15.0 [facility] Comment on above: Order Comment: Speci men Type: BLOOD SPECIMENOrdering Facility: [facility] Address: [address] [place] [address] Performed By: #### 5 7021-8 ####[facility] [id number] [place] [address] [place] Hematocrit (Bld) [Volume fraction] 21.8 % Low 39.0-51.0 [facility] Comment on above: Order Comment: Speci men Type: BLOOD SPECIMENOrdering Facility: [facility] Address: [address] [place] [address] Performed By: #### 5 7021-8 ####[facility] SPRINGSNCLIA [id number] [place] [address] [place] Hemoglobin (Bld) [Mass/Vol] 7.3 g/dL Low 13.0-17.0 [facility] Comment on above: Order Comment: Speci men Type: BLOOD SPECIMENOrdering Facility: [facility] Address: [address] [place] [address] Performed By: #### 5 7021-8 ####[facility] SPRINGSNCLIA [id number] [place] [address] [place] Immature granulocytes (Bld) [#/Vol] 10*3/uL Normal <0.10 [facility] Comment on above: Order Comment: Speci men Type: BLOOD SPECIMENOrdering Facility: [facility] Address: [address] [place] [address] Performed By: #### 5 7021-8 ####[facility]INGSNCL[facility] [id number] [place] [address] [place] Immature granulocytes/100 WBC (Bld) 0.3 % Normal [facility] Comment on above: Order Comment: Speci men Type: BLOOD SPECIMENOrdering Facility: [facility] Address: [address] [place] [address] Performed By: #### 5 7021-8 ####[facility]PITALLIA [id number] [place] [address] [place] Lymphocytes (Bld) [#/Vol] 0.53 10*3/uL Low 1.00-4.00 [facility] Comment on above: Order Comment: Speci men Type: BLOOD SPECIMENOrdering Facility: [facility] Address: [address] [place] [address] Performed By: #### 5 7021-8 ####[facility] [id number] [place] [address] [place] Lymphocytes/100 WBC (Bld) 16.6 % Normal [facility] Comment on above: Order Comment: Speci men Type: BLOOD SPECIMENOrdering Facility: [facility] Address: [address] [place] [address] Performed By: #### 5 7021-8 ####[facility] SPRINGSLUISITO [id number] [place] [address] [place] MCH (RBC) [Entitic mass] 32.7 pg Normal 26.0-34.0 [facility] Comment on above: Order Comment: Speci men Type: BLOOD SPECIMENOrdering Facility: [facility] Address: [address] [place] [address] Performed By: #### 5 7021-8 ####[facility] SPRINGSROCKYDarrick [id number] [place] [address] [place] MCHC (RBC) [Mass/Vol] 33.5 g/dL Normal 30.5-36.0 [facility] Comment on above: Order Comment: Speci men Type: BLOOD SPECIMENOrdering Facility: [facility] Address: [address] [place] [address] Performed By: #### 5 7021-8 ####[facility] SPRINGSLUISITO [id number] [place] [address] [place] MCV (RBC) [Entitic vol] 97.8 fL Normal 80.0-100.0 C [facility] Comment on above: Order Comment: Speci men Type: BLOOD SPECIMENOrdering Facility: [facility] Address: [address] [place] [address] Performed By: #### 5 7021-8 ####[facility] SPRINGSNCLI [id number] [place] [address] [place] Monocytes (Bld) [#/Vol] 0.15 10*3/uL Normal <0.87 [facility] Comment on above: Order Comment: Speci men Type: BLOOD SPECIMENOrdering Facility: [facility] Address: [address] [place] [address] Performed By: #### 5 7021-8 ####[facility] [id number] [place] [address] [place] Monocytes/100 WBC (Bld) 4.7 % Normal [facility] Comment on above: Order Comment: Speci men Type: BLOOD SPECIMENOrdering Facility: [facility] Address: [address] [place] [address] Performed By: #### 5 7021-8 ####[facility] [id number] [place] [address] [place] Neutrophils (Bld) [#/Vol] 2.46 10*3/uL Normal 1.45-7.50 [facility] Comment on above: Order Comment: Speci men Type: BLOOD SPECIMENOrdering Facility: [facility] Address: [address] [place] [address] Performed By: #### 5 7021-8 ####[facility] [id number] [place] [address] [place] Neutrophils/100 WBC (Bld) 77.2 % Normal [facility] Comment on above: Order Comment: Speci men Type: BLOOD SPECIMENOrdering Facility: [facility] Address: [address] [place] [address] Performed By: #### 5 7021-8 ####[facility] [id number] [place] [address] [place] Nucleated RBC (Bld) [#/Vol] 10*3/uL Normal <0.01 [facility] Comment on above: Order Comment: Speci men Type: BLOOD SPECIMENOrdering Facility: [facility] Address: [address] [place] [address] Performed By: #### 5 7021-8 ####[facility] BECKYNCLIA [id number] [place] [address] [place] Nucleated RBC/100 WBC (Bld) [Ratio] 0.0 /100 WBC Normal [facility] Comment on above: Order Comment: Speci men Type: BLOOD SPECIMENOrdering Facility: [facility] Address: [address] [place] [address] Performed By: #### 5 7021-8 ####[facility] SPRINGSNCLIA [id number] [place] [address] [place] Platelet mean volume (Bld) [Entitic vol] 10.7 fL Normal 9.0-12.7 [facility] Comment on above: Order Comment: Speci men Type: BLOOD SPECIMENOrdering Facility: [facility] Address: [address] [place] [address] Performed By: #### 5 7021-8 ####[facility]INGSNCLIA [id number] [place] [address] [place] Platelets (Bld) [#/Vol] 120 10*3/uL Low 150-400 [facility] Comment on above: Order Comment: Speci men Type: BLOOD SPECIMENOrdering Facility: [facility] Address: [address] [place] [address] Performed By: #### 5 7021-8 ####[facility]SNCL[facility] [id number] [place] [address] [place] RBC (Bld) [#/Vol] 2.23 10*6/uL Low 4.20-6.00 [facility] Comment on above: Order Comment: Speci men Type: BLOOD SPECIMENOrdering Facility: [facility] Address: [address] [place] [address] Performed By: #### 5 7021-8 ####[facility]SN[facility] [id number] [place] [address] [place] WBC (Bld) [#/Vol] 3.19 10*3/uL Low 3.70-11.00 [facility] Comment on above: Order Comment: Speci men Type: BLOOD SPECIMENOrdering Facility: [facility] Address: [address] [place] [address] Performed By: #### 5 7021-8 ####[facility] [id number] [place] [address] [place] CBC W/Diff, Automatedon 11-11 Absolute Neut Normal 2.0-7.7 [facility] Comment on above: Result Comment: NOT NEEDED. ORDERED IN ERROR Performed By: #### Benito MENDES, BR #### [facility] [address] [place], [address] HCT Normal 40-54 [facility] Comment on above: Result Comment: NOT NEEDED. ORDERED IN ERROR Performed By: #### Benito MENDES, BR #### [facility] [address] [place], [address] HGB Normal 13.0-16.5 [facility] Comment on above: Result Comment: NOT NEEDED. ORDERED IN ERROR Performed By: #### Benito MENDES, [facility] #### [facility] [address] [place], [address] MCH Normal 27.0-32.0 [facility] Comment on above: Result Comment: NOT NEEDED. ORDERED IN ERROR Performed By: #### Benito MENDES, [facility] #### [facility] [address] [place], [address] MCHC Normal 32-36 [facility] Comment on above: Result Comment: NOT NEEDED. ORDERED IN ERROR Performed By: #### Benito MENDES, BR #### [facility] [address] [place], [address] MCV Normal 80-94 [facility] Comment on above: Result Comment: NOT NEEDED. ORDERED IN ERROR Performed By: #### Benito MENDES, BR #### [facility] [address] [place], [address] NEUT% Normal 47-70 [facility] Comment on above: Result Comment: NOT NEEDED. ORDERED IN ERROR Performed By: #### B CINTHYA, BRC #### [facility] [address] [place], [address] PLT Normal 150-450 [facility] Comment on above: Result Comment: NOT NEEDED. ORDERED IN ERROR Performed By: #### B CINTHYA, BRC #### [facility] [address] [place], [address] RBC Normal 4.6-6.2 [facility] Comment on above: Result Comment: NOT NEEDED. ORDERED IN ERROR Performed By: #### Benito MENDES, BRC #### [facility] [address] [place], [address] RDW CV Normal 11.6-14.6 [facility] Comment on above: Result Comment: NOT NEEDED. ORDERED IN ERROR Performed By: #### B CINTHYA, BRC #### [facility] [address] [place], [address] RDW SD Normal 35.1-43.9 [facility] Comment on above: Result Comment: NOT NEEDED. ORDERED IN ERROR Performed By: #### B CINTHYA, BRC #### [facility] [address] [place], [address] WBC Normal 4.4-11.0 [facility] Comment on above: Result Comment: NOT NEEDED. ORDERED IN ERROR Performed By: #### B CINTHYA, BRC #### [facility] [address] [place], [address] CNPNon 12-02-2024 CNPN Normal [facility] ilon 12-02-2024 ALB Normal 3.2-5.0 [facility] Comment on above: Result Comment: NOT NEEDED. ORDERED IN ERROR Performed By: #### Benito MENDES, BRC #### [facility] [address] [place], [address] ALK P Normal 45-117 [facility] Comment on above: Result Comment: NOT NEEDED. ORDERED IN ERROR Performed By: #### Benito MENDES, BRC #### [facility] [address] [place], [address] ALT Normal 16-61 [facility] Comment on above: Result Comment: NOT NEEDED. ORDERED IN ERROR Performed By: #### Benito MENDES, BRC #### [facility] [address] [place], [address] AST Normal 15-37 [facility] Comment on above: Result Comment: NOT NEEDED. ORDERED IN ERROR Performed By: #### Benito MENDES, BRC #### [facility] [address] [place], [address] BUN Normal 7-18 [facility] Comment on above: Result Comment: NOT NEEDED. ORDERED IN ERROR Performed By: #### Benito MENDES, BRC #### [facility] [address] [place], [address] BUN/CRE Normal 10-20 [facility] Comment on above: Result Comment: NOT NEEDED. ORDERED IN ERROR Performed By: #### Benito MENDES, BRC #### [facility] [address] [place], [address] CA,Total Normal 8.5-10.1 [facility] Comment on above: Result Comment: NOT NEEDED. ORDERED IN ERROR Performed By: #### Benito MENDES, BRC #### [facility] [address] [place], [address] CL Normal 98-107 [facility] Comment on above: Result Comment: NOT NEEDED. ORDERED IN ERROR Performed By: #### Benito MENDES, BRC #### [facility] [address] [place], [address] CO2 Normal 21.0-32.0 [facility] Comment on above: Result Comment: NOT NEEDED. ORDERED IN ERROR Performed By: #### Benito MENDES, BRC #### [facility] [address] [place], [address] CREAT,SERUM Normal 0.70-1.30 [facility] Comment on above: Result Comment: NOT NEEDED. ORDERED IN ERROR Performed By: #### Benito MENDES, BRC #### [facility] [address] [place], [address] EST GFR Normal >60 [facility] Comment on above: Result Comment: NOT NEEDED. ORDERED IN ERROR Performed By: #### Benito MENDES, [facility] #### [facility] [address] [place], [address] EST GFR - AA Normal >60 [facility] Comment on above: Result Comment: NOT NEEDED. ORDERED IN ERROR Performed By: #### Benito MENDES, BR #### [facility] [address] [place], [address] GAP Normal 5-15 [facility] Comment on above: Result Comment: NOT NEEDED. ORDERED IN ERROR Performed By: #### Benito MENDES, BR #### [facility] [address] [place], [address] GLU Normal 74-106 [facility] Comment on above: Result Comment: NOT NEEDED. ORDERED IN ERROR Performed By: #### Benito MENDES, BRC #### [facility] [address] [place], [address] Potassium Normal 3.5-5.1 [facility] Comment on above: Result Comment: NOT NEEDED. ORDERED IN ERROR Performed By: #### Benito MENDES, BR #### [facility] [address] [place], [address] T BILI Normal 0.20-1.00 [facility] Comment on above: Result Comment: NOT NEEDED. ORDERED IN ERROR Performed By: #### B CINTHYA, BRC #### [facility] [address] [place], [address] T PROT Normal 6.4-8.2 [facility] Comment on above: Result Comment: NOT NEEDED. ORDERED IN ERROR Performed By: #### B CINTHYA, BRC #### [facility] [address] [place], [address] Comprehensive Metabolic Profil Normal 136-145 [facility] Comment on above: Result Comment: NOT NEEDED. ORDERED IN ERROR Performed By: #### B CINTHYA, BRC #### [facility] [address] [place], [address] Comprehensive metabolic 2000 panelon 12-02-2024 Albumin [Mass/Vol] 4.6 g/dL Normal 3.9-4.9 [facility] Comment on above: Order Comment: Speci men Type: BLOOD SPECIMENOrdering Facility: [facility] Address: [address] [place] [address] Performed By: #### 2 4323-8 ####[facility] [id number] [place] [address] [place] ALP [Catalytic activity/Vol] 93 U/L Normal 38-113 [facility] Comment on above: Order Comment: Speci men Type: BLOOD SPECIMENOrdering Facility: [facility] Address: [address] [place] [address] Performed By: #### 2 4323-8 ####[facility] [id number] [place] [address] [place] ALT [Catalytic activity/Vol] 69 U/L High 10-54 [facility] Comment on above: Order Comment: Speci men Type: BLOOD SPECIMENOrdering Facility: [facility] Address: [address] [place] [address] Performed By: #### 2 4323-8 ####[facility] MILLTOWNCLIA [id number] [place] [address] [place] Anion gap [Moles/Vol] 7 mmol/L Low 8-15 [facility] Comment on above: Order Comment: Speci men Type: BLOOD SPECIMENOrdering Facility: [facility] Address: [address] [place] [address] Performed By: #### 2 4323-8 ####[facility] MILLTOWNCLIA [id number] [place] [address] [place] AST [Catalytic activity/Vol] 46 U/L High 14-40 [facility] Comment on above: Order Comment: Speci men Type: BLOOD SPECIMENOrdering Facility: [facility] Address: [address] [place] [address] Performed By: #### 2 4323-8 ####[facility] SPR[facility]SWNCL[facility] [id number] [place] [address] [place] Bilirubin [Mass/Vol] 1.0 mg/dL Normal 0.2-1.3 [facility] Comment on above: Order Comment: Speci men Type: BLOOD SPECIMENOrdering Facility: [facility] Address: [address] [place] [address] Performed By: #### 2 4323-8 ####[facility] MILLTOWNCLIA [id number] [place] [address] [place] Calcium [Mass/Vol] 9.6 mg/dL Normal 8.5-10.2 [facility] Comment on above: Order Comment: Speci men Type: BLOOD SPECIMENOrdering Facility: [facility] Address: [address] [place] [address] Performed By: #### 2 4323-8 ####[facility] MILLTOWNCLIA [id number] [place] [address] [place] Chloride [Moles/Vol] 101 mmol/L Normal 98-107 [facility] Comment on above: Order Comment: Speci men Type: BLOOD SPECIMENOrdering Facility: [facility] [facility] Address: [address] [place] [address] Performed By: #### 2 4323-8 ####[facility] [id number] [place] [address] [place] CO2 [Moles/Vol] 29 mmol/L Normal 22-30 [facility] Comment on above: Order Comment: Speci men Type: BLOOD SPECIMENOrdering Facility: [facility] Address: [address] [place] [address] Performed By: #### 2 4323-8 ####[facility] [id number] [place] [address] [place] Creatinine [Mass/Vol] 0.77 mg/dL Normal 0.73-1.22 [facility] Comment on above: Order Comment: Speci men Type: BLOOD SPECIMENOrdering Facility: [facility] Address: [address] [place] [address] Performed By: #### 2 4323-8 ####[facility] [id number] [address] OF [facility] Creatinine and Glomerular filtration rate.predicted panel (S/P/Bld) 91 mL/min/1.73m??? Normal >=60 [facility] Comment on above: Order Comment: Speci men Type: BLOOD SPECIMENOrdering Facility: [facility] Address: [address] [place] [address] Result Comment: Lilly mated Glomerular Filtration Rate (eGFR) is calculated using the 2020 CKD-EPI creatinine equation. This equation utilizes serum creatinine, sex, and age as parameters. The creatinine assay has traceable calibration to isotope dilution-mass spectrometry. Refer to KDIGO guidelines for clinical interpretation. In patients with unstable renal function, e.g. those with acute kidney injury, the eGFR may not accurately reflect actual GFR. Performed By: #### 2 4323-8 ####[facility]INGSWNCA [id number] [place] [address] [place] Glucose [Mass/Vol] 136 mg/dL High 74-99 [facility] Comment on above: Order Comment: Gilma ojeda Type: BLOOD SPECIMENOrdering Facility: [facility] Address: [address] [place] [address] Result Comment: The [place] Diabetes Association (ADA) provides guidance for cutoff values for fasting glucose and random glucose. The ADA defines fasting as no caloric intake for at least 8 hours. Fasting plasma glucose results between 100 to 125 mg/dL indicate increased risk for diabetes (prediabetes).Fasting plasma glucose results greater than or equal to 126 mg/dL meet the criteria for diagnosis of diabetes. In the absence of unequivocal hyperglycemia, results should be confirmed by repeat testing. In a patient with classic symptoms of hyperglycemia or hyperglycemic crisis, random plasma glucose results greater than or equal to 200 mg/dL meet the criteria for diagnosis of diabetes.Reference: Standards of Medical Care in Diabetes 2016, [place] Diabetes Association. Diabetes Care. 2016.39(Suppl 1). Performed By: #### 2 4323-8 ####[facility]CLIA [id number] [place] [address] [place] Potassium [Moles/Vol] 4.1 mmol/L Normal 3.7-5.1 [facility] Comment on above: Order Comment: Gilma ojeda Type: BLOOD SPECIMENOrdering Facility: [facility] Address: [address] [place], [place] [address] Performed By: #### 2 4323-8 ####[facility] [id number] [place] [address] [place] Protein [Mass/Vol] 6.6 g/dL Normal 6.3-8.0 [facility] Comment on above: Order Comment: Gilma ojeda Type: BLOOD SPECIMENOrdering Facility: [facility] Address: [address] [place] [address] Performed By: #### 2 4323-8 ####[facility] GABBY JURAODLIA [id number] [place] [address] [place] Sodium [Moles/Vol] 137 mmol/L Normal 136-144 [facility] Comment on above: Order Comment: Speci men Type: BLOOD SPECIMENOrdering Facility: [facility] Address: [facility] [place] [address] Performed By: #### 2 4323-8 ####[facility] BRITNEYA [id number] [place] [address] [place] Urea nitrogen [Mass/Vol] 12 mg/dL Normal 9-24 [facility] Comment on above: Order Comment: Speci men Type: BLOOD SPECIMENOrdering Facility: [facility] Address: [facility] [place] [address] Performed By: #### 2 4323-8 ####[facility] GABBY THOMAS [id number] [address] [place] Type AND Screenon 12-02-2024 Ab SCREEN GEL Negative [facility] Comment on above: Order Comment: PRETR ANSFUSION HGB = 8.0 HCT = 23.9 PERFORMED AT [facility] N 06/17/25 AT 0800 N Y A Performed By: #### Benito MENDES [facility] #### [facility] [address] [facility]. [place], [place], [address] ABO and Rh group Nom (Bld) Blood group B Rh(D) positive Normal [facility] Comment on above: Order Comment: PRETR ANSFUSION HGB = 8.0 HCT = 23.9 PERFORMED AT [facility] N 06/17/25 AT 0800 N Y A Performed By: #### B CINTHYA [facility] #### [facility] [address] [place], [place], [address] BRCon 11-11-2024 RC Normal [facility] Comment on above: Result Comment: [id number] ON RC TRANSFUSED 11/12/24 0917 [id number] BN RC TRANSFUSED 11/12/24 1153 Performed By: #### B MIRIAN, BTS #### [facility] [address] [place], [address] CBC W Auto Differential pane l (Bld)on 11-11-2024 Basophils (Bld) [#/Vol] 10*3/uL Normal <0.11 [facility] Comment on above: Order Comment: Speci men Type: BLOOD SPECIMENOrdering Facility: [facility] Address: [address] [place] [address] Performed By: #### 5 7021-8 ####[facility] [id number] [place] [address] [place] Basophils/100 WBC (Bld) 0.2 % Normal C [facility] Comment on above: Order Comment: Speci men Type: BLOOD SPECIMENOrdering Facility: [facility] Address: [address] [place] [address] Performed By: #### 5 7021-8 ####[facility] [id number] [place] [address] [place] Differential cell count method Nom (Bld) Auto Normal [facility] Comment on above: Order Comment: Speci men Type: BLOOD SPECIMENOrdering Facility: [facility] Address: [address] [place] [address] Performed By: #### 5 7021-8 ####[facility] [id number] [place] [address] [place] Eosinophils (Bld) [#/Vol] 10*3/uL Normal <0.46 [facility] Comment on above: Order Comment: Speci men Type: BLOOD SPECIMENOrdering Facility: [facility] Address: [address] [place] [address] Performed By: #### 5 7021-8 ####[facility] MILLWNCLIA [id number] [place] [address] [place] Eosinophils/100 WBC (Bld) 0.4 % Normal [facility] Comment on above: Order Comment: Speci men Type: BLOOD SPECIMENOrdering Facility: [facility] Address: [address] [place] [address] Performed By: #### 5 7021-8 ####[facility] SPRINGSROCKYLIA [id number] [place] [address] [place] Erythrocyte distribution width (RBC) [Ratio] 20.9 % High 11.5-15.0 [facility] Comment on above: Order Comment: Speci men Type: BLOOD SPECIMENOrdering Facility: [facility] Address: [address] [place] [address] Performed By: #### 5 7021-8 ####[facility] [id number] [place] [address] [place] Hematocrit (Bld) [Volume fraction] 23.3 % Low 39.0-51.0 [facility] Comment on above: Order Comment: Speci men Type: BLOOD SPECIMENOrdering Facility: [facility] Address: [address] [place] [address] Performed By: #### 5 7021-8 ####[facility] [id number] [place] [address] [place] Hemoglobin (Bld) [Mass/Vol] 7.7 g/dL Low 13.0-17.0 [facility] Comment on above: Order Comment: Speci men Type: BLOOD SPECIMENOrdering Facility: [facility] Address: [address] [place] [address] Performed By: #### 5 7021-8 ####[facility]SNCLI [id number] [place] [address] [place] Immature granulocytes (Bld) [#/Vol] 10*3/uL Normal <0.10 [facility] Comment on above: Order Comment: Speci men Type: BLOOD SPECIMENOrdering Facility: [facility] Address: [address] [place] [address] Performed By: #### 5 7021-8 ####[facility] [id number] [place] [address] [place] Immature granulocytes/100 WBC (Bld) 0.4 % Normal [facility] Comment on above: Order Comment: Speci men Type: BLOOD SPECIMENOrdering Facility: [facility] Address: [address] [place] [address] Performed By: #### 5 7021-8 ####[facility] [id number] [place] [address] [place] Lymphocytes (Bld) [#/Vol] 0.53 10*3/uL Low 1.00-4.00 [facility] Comment on above: Order Comment: Speci men Type: BLOOD SPECIMENOrdering Facility: [facility] Address: [address] [place] [address] Performed By: #### 5 7021-8 ####[facility] [id number] [place] [address] [place] Lymphocytes/100 WBC (Bld) 10.9 % Normal [facility] Comment on above: Order Comment: Speci men Type: BLOOD SPECIMENOrdering Facility: [facility] Address: [address] [place] [address] Performed By: #### 5 7021-8 ####[facility] SPRINGSNCA [id number] [place] [address] [place] MCH (RBC) [Entitic mass] 32.5 pg Normal 26.0-34.0 [facility] Comment on above: Order Comment: Speci men Type: BLOOD SPECIMENOrdering Facility: [facility] Address: [address] [place] [address] Performed By: #### 5 7021-8 ####[facility] SHERRIVidhyaROCKYSAURABH [id number] [place] [address] [place] MCHC (RBC) [Mass/Vol] 33.0 g/dL Normal 30.5-36.0 [facility] Comment on above: Order Comment: Speci men Type: BLOOD SPECIMENOrdering Facility: [facility] Address: [address] [place] [address] Performed By: #### 5 7021-8 ####[facility] SPRINGSLUISITO [id number] [place] [address] [place] MCV (RBC) [Entitic vol] 98.3 fL Normal 80.0-100.0 C [facility] Comment on above: Order Comment: Speci men Type: BLOOD SPECIMENOrdering Facility: [facility] Address: [address] [place] [address] Performed By: #### 5 7021-8 ####[facility] SPRINGSLUISITO [id number] [place] [address] [place] Monocytes (Bld) [#/Vol] 0.17 10*3/uL Normal <0.87 [facility] Comment on above: Order Comment: Speci men Type: BLOOD SPECIMENOrdering Facility: [facility] Address: [address] [place] [address] Performed By: #### 5 7021-8 ####[facility] SPRINGSLUISITO [id number] [place] [address] [place] Monocytes/100 WBC (Bld) 3.5 % Normal C [facility] Comment on above: Order Comment: Speci men Type: BLOOD SPECIMENOrdering Facility: [facility] Address: [address] [place] [address] Performed By: #### 5 7021-8 ####[facility] MILLTOWNCLIA [id number] [place] [address] [place] Neutrophils (Bld) [#/Vol] 4.11 10*3/uL Normal 1.45-7.50 [facility] Comment on above: Order Comment: Speci men Type: BLOOD SPECIMENOrdering Facility: [facility] Address: [address] [place] [address] Performed By: #### 5 7021-8 ####[facility] SPRINGSNCLIA [id number] [place] [address] [place] Neutrophils/100 WBC (Bld) 84.6 % Normal [facility] Comment on above: Order Comment: Speci men Type: BLOOD SPECIMENOrdering Facility: [facility] Address: [address] [place] [address] Performed By: #### 5 7021-8 ####[facility]ALL[facility] [id number] [place] [address] [place] Nucleated RBC (Bld) [#/Vol] 10*3/uL Normal <0.01 [facility] Comment on above: Order Comment: Speci men Type: BLOOD SPECIMENOrdering Facility: [facility] Address: [address] [place] [address] Performed By: #### 5 7021-8 ####[facility] SPRINGSNCLIA [id number] [place] [address] [place] Nucleated RBC/100 WBC (Bld) [Ratio] 0.0 /100 WBC Normal [facility] Comment on above: Order Comment: Speci men Type: BLOOD SPECIMENOrdering Facility: [facility] Address: [address] [place] [address] Performed By: #### 5 7021-8 ####[facility]INGSNCLIA [id number] [place] [address] [place] Platelet mean volume (Bld) [Entitic vol] 11.3 fL Normal 9.0-12.7 [facility] Comment on above: Order Comment: Speci men Type: BLOOD SPECIMENOrdering Facility: [facility] Address: [address] [place] [address] Performed By: #### 5 7021-8 ####[facility] SPRINGSNCLIA [id number] [place] [address] [place] Platelets (Bld) [#/Vol] 121 10*3/uL Low 150-400 [facility] Comment on above: Order Comment: Speci men Type: BLOOD SPECIMENOrdering Facility: [facility] Address: [address] [place] [address] Performed By: #### 5 7021-8 ####[facility] SPRINGSNCA [id number] [place] [address] [place] RBC (Bld) [#/Vol] 2.37 10*6/uL Low 4.20-6.00 [facility] Comment on above: Order Comment: Speci men Type: BLOOD SPECIMENOrdering Facility: [facility] Address: [address] [place] [address] Performed By: #### 5 7021-8 ####[facility] SPRINGSNCA [id number] [place] [address] [place] WBC (Bld) [#/Vol] 4.86 10*3/uL Normal 3.70-11.00 [facility] Comment on above: Order Comment: Speci men Type: BLOOD SPECIMENOrdering Facility: [facility] Address: [address] [place] [address] Performed By: #### 5 7021-8 ####[facility] SPRINGSNCLIA [id number] [place] [address] [place] CNPNon 11-11-2024 CNPN Normal [facility] metabolic 2000 panelon 11-11-2024 Albumin [Mass/Vol] 4.3 g/dL Normal 3.9-4.9 [facility] Comment on above: Order Comment: Speci men Type: BLOOD SPECIMENOrdering Facility: [facility] Address: [address] [place] [address] Performed By: #### 2 4323-8 ####[facility] SPRINGSNCLIA [id number] [place] [address] [place] ALP [Catalytic activity/Vol] 106 U/L Normal 38-113 [facility] Comment on above: Order Comment: Speci men Type: BLOOD SPECIMENOrdering Facility: [facility] Address: [address] [place] [address] Performed By: #### 2 4323-8 ####[facility] SPRINGSNCA [id number] [place] [address] [place] ALT [Catalytic activity/Vol] 83 U/L High 10-54 [facility] Comment on above: Order Comment: Speci men Type: BLOOD SPECIMENOrdering Facility: [facility] Address: [address] [place] [address] Performed By: #### 2 4323-8 ####[facility]IT[facility] [id number] [place] [address] [place] Anion gap [Moles/Vol] 9 mmol/L Normal 8-15 [facility] Comment on above: Order Comment: Speci men Type: BLOOD SPECIMENOrdering Facility: [facility] Address: [address] [place] [address] Performed By: #### 2 4323-8 ####[facility] [id number] [place] [address] [place] AST [Catalytic activity/Vol] 51 U/L High 14-40 [facility] Comment on above: Order Comment: Speci men Type: BLOOD SPECIMENOrdering Facility: [facility] Address: [address] [place] [address] Performed By: #### 2 4323-8 ####[facility] GABBY MILLTOWNCLIA [id number] [place] [address] [place] Bilirubin [Mass/Vol] 0.9 mg/dL Normal 0.2-1.3 [facility] Comment on above: Order Comment: Speci men Type: BLOOD SPECIMENOrdering Facility: [facility] Address: [address] [place] [address] Performed By: #### 2 4323-8 ####[facility] MILLTOWNCLIA [id number] [place] [address] [place] Calcium [Mass/Vol] 9.3 mg/dL Normal 8.5-10.2 [facility] Comment on above: Order Comment: Speci men Type: BLOOD SPECIMENOrdering Facility: [facility] Address: [address] [place] [address] Performed By: #### 2 4323-8 ####[facility] MILLTOWNCLIA [id number] [place] [address] [place] Chloride [Moles/Vol] 99 mmol/L Normal 98-107 [facility] Comment on above: Order Comment: Speci men Type: BLOOD SPECIMENOrdering Facility: [facility] Address: [address] [place] [address] Performed By: #### 2 4323-8 ####[facility] GABBY MILLTOWNCLIA [id number] [place] [address] [place] CO2 [Moles/Vol] 28 mmol/L Normal 22-30 [facility] Comment on above: Order Comment: Speci men Type: BLOOD SPECIMENOrdering Facility: [facility] Address: [address] [place] [address] Performed By: #### 2 4323-8 ####[facility] GABBY MILLTOWNCLIA [id number] [place] [address] [place] Creatinine [Mass/Vol] 0.79 mg/dL Normal 0.73-1.22 [facility] Comment on above: Order Comment: Gilma ojeda Type: BLOOD SPECIMENOrdering Facility: [facility] Address: [address] [place] [address] Performed By: #### 2 4323-8 ####[facility] [id number] [place] [address] [place] Creatinine and Glomerular filtration rate.predicted panel (S/P/Bld) 90 mL/min/1.73m??? Normal >=60 [facility] Comment on above: Order Comment: Gilma ojeda Type: BLOOD SPECIMENOrdering Facility: [facility] Address: [address] [place] [address] Result Comment: Lilly mated Glomerular Filtration Rate (eGFR) is calculated using the 2020 CKD-EPI creatinine equation. This equation utilizes serum creatinine, sex, and age as parameters. The creatinine assay has traceable calibration to isotope dilution-mass spectrometry. Refer to KDIGO guidelines for clinical interpretation. In patients with unstable renal function, e.g. those with acute kidney injury, the eGFR may not accurately reflect actual GFR. Performed By: #### 2 4323-8 ####[facility] [id number] [place] [address] [place] Glucose [Mass/Vol] 127 mg/dL High 74-99 [facility] Comment on above: Order Comment: Gilma ojeda Type: BLOOD SPECIMENOrdering Facility: [facility] Address: [address] [place] [address] Result Comment: The [place] Diabetes Association (ADA) provides guidance for cutoff values for fasting glucose and random glucose. The ADA defines fasting as no caloric intake for at least 8 hours. Fasting plasma glucose results between 100 to 125 mg/dL indicate increased risk for diabetes (prediabetes).Fasting plasma glucose results greater than or equal to 126 mg/dL meet the criteria for diagnosis of diabetes. In the absence of unequivocal hyperglycemia, results should be confirmed by repeat testing. In a patient with classic symptoms of hyperglycemia or hyperglycemic crisis, random plasma glucose results greater than or equal to 200 mg/dL meet the criteria for diagnosis of diabetes.Reference: Standards of Medical Care in Diabetes 2016, [place] [employer]. Diabetes Care. 2016.39(Suppl 1). Performed By: #### 2 4323-8 ####[facility] [id number] [place] [address] [place] Potassium [Moles/Vol] 4.1 mmol/L Normal 3.7-5.1 [facility] Comment on above: Order Comment: Speci men Type: BLOOD SPECIMENOrdering Facility: [facility] Address: [address] [place], [place] [address] Performed By: #### 2 4323-8 ####[facility] [id number] [place] [address] [place] Protein [Mass/Vol] 6.2 g/dL Low 6.3-8.0 [facility] Comment on above: Order Comment: Speci men Type: BLOOD SPECIMENOrdering Facility: [facility] Address: [address] [place], [place] [address] Performed By: #### 2 4323-8 ####[facility] [id number] [place] [address] [place] Sodium [Moles/Vol] 136 mmol/L Normal 136-144 [facility] Comment on above: Order Comment: Speci men Type: BLOOD SPECIMENOrdering Facility: [facility] Address: [address] [place] [address] Performed By: #### 2 4323-8 ####[facility] [id number] [place] [address] [place] Urea nitrogen [Mass/Vol] 13 mg/dL Normal 9-24 [facility] Comment on above: Order Comment: Speci men Type: BLOOD SPECIMENOrdering Facility: [facility] Address: [address] [place] [address] Performed By: #### 2 4323-8 ####[facility] [id number] [place] [address] [place] Type AND Screenon 11-11-2024 Ab SCREEN GEL Negative Normal [facility] Comment on above: Order Comment: PRETR ANSFUSION HGB = 7.7 HCT = 22.4 [facility] 08/26/2025 @ 0800 N Y A Performed By: #### B RC, BTS #### [facility] [address] [place], [address] CBC W Auto Differential pane l (Bld)on 11-04-2024 Basophils (Bld) [#/Vol] 10*3/uL Normal <0.11 C [facility] Comment on above: Order Comment: Speci men Type: BLOOD SPECIMENOrdering Facility: [facility] Address: [address] [place] [address] Performed By: #### 5 7021-8 ####[facility] [id number] [address] [place] Basophils/100 WBC (Bld) 0.3 % Normal [facility] Comment on above: Order Comment: Speci men Type: BLOOD SPECIMENOrdering Facility: [facility] Address: [address] [place] [address] Performed By: #### 5 7021-8 ####[facility] [id number] [place] [address] [place] Differential cell count method Nom (Bld) Auto Normal [facility] Comment on above: Order Comment: Speci men Type: BLOOD SPECIMENOrdering Facility: [facility] Address: [address] [place] [address] Performed By: #### 5 7021-8 ####[facility] [id number] [place] [address] [place] Eosinophils (Bld) [#/Vol] 0.08 10*3/uL Normal <0.46 [facility] Comment on above: Order Comment: Speci men Type: BLOOD SPECIMENOrdering Facility: [facility] Address: [address] [place] [address] Performed By: #### 5 7021-8 ####[facility] [id number] [place] [address] [place] Eosinophils/100 WBC (Bld) 2.2 % Normal [facility] Comment on above: Order Comment: Speci men Type: BLOOD SPECIMENOrdering Facility: [facility] Address: [address] [place] [address] Performed By: #### 5 7021-8 ####[facility] [id number] [place] [address] [place] Erythrocyte distribution width (RBC) [Ratio] 19.7 % High 11.5-15.0 [facility] Comment on above: Order Comment: Speci men Type: BLOOD SPECIMENOrdering Facility: [facility] Address: [address] [place] [address] Performed By: #### 5 7021-8 ####[facility] [id number] [place] [address] [place] Hematocrit (Bld) [Volume fraction] 25.9 % Low 39.0-51.0 [facility] Comment on above: Order Comment: Speci men Type: BLOOD SPECIMENOrdering Facility: [facility] Address: [address] [place] [address] Performed By: #### 5 7021-8 ####[facility] [id number] [place] [address] [place] Hemoglobin (Bld) [Mass/Vol] 8.7 g/dL Low 13.0-17.0 [facility] Comment on above: Order Comment: Speci men Type: BLOOD SPECIMENOrdering Facility: [facility] Address: [address] [place] [address] Performed By: #### 5 7021-8 ####[facility] SHERRIJEFEA [id number] [place] [address] [place] Immature granulocytes (Bld) [#/Vol] 10*3/uL Normal <0.10 [facility] Comment on above: Order Comment: Speci men Type: BLOOD SPECIMENOrdering Facility: [facility] Address: [address] [place] [address] Performed By: #### 5 7021-8 ####[facility] [id number] [place] [address] [place] Immature granulocytes/100 WBC (Bld) 0.6 % Normal [facility] Comment on above: Order Comment: Speci men Type: BLOOD SPECIMENOrdering Facility: [facility] Address: [address] [place] [address] Performed By: #### 5 7021-8 ####[facility] [id number] [place] [address] [place] Lymphocytes (Bld) [#/Vol] 0.60 10*3/uL Low 1.00-4.00 [facility] Comment on above: Order Comment: Speci men Type: BLOOD SPECIMENOrdering Facility: [facility] Address: [address] [place] [address] Performed By: #### 5 7021-8 ####[facility] [id number] [place] [address] [place] Lymphocytes/100 WBC (Bld) 16.8 % Normal [facility] Comment on above: Order Comment: Speci men Type: BLOOD SPECIMENOrdering Facility: [facility] Address: [address] [place] [address] Performed By: #### 5 7021-8 ####[facility] [id number] [place] [address] [place] MCH (RBC) [Entitic mass] 32.8 pg Normal 26.0-34.0 [facility] Comment on above: Order Comment: Speci men Type: BLOOD SPECIMENOrdering Facility: [facility] Address: [address] [place] [address] Performed By: #### 5 7021-8 ####[facility] [id number] [place] [address] [place] MCHC (RBC) [Mass/Vol] 33.6 g/dL Normal 30.5-36.0 [facility] Comment on above: Order Comment: Speci men Type: BLOOD SPECIMENOrdering Facility: [facility] Address: [address] [place] [address] Performed By: #### 5 7021-8 ####[facility] [id number] [place] [address] [place] MCV (RBC) [Entitic vol] 97.7 fL Normal 80.0-100.0 [facility] Comment on above: Order Comment: Speci men Type: BLOOD SPECIMENOrdering Facility: [facility] Address: [address] [place] [address] Performed By: #### 5 7021-8 ####[facility] [id number] [place] [address] [place] Monocytes (Bld) [#/Vol] 0.12 10*3/uL Normal <0.87 [facility] Comment on above: Order Comment: Speci men Type: BLOOD SPECIMENOrdering Facility: [facility] Address: [address] [place] [address] Performed By: #### 5 7021-8 ####[facility] [id number] [place] [address] [place] Monocytes/100 WBC (Bld) 3.4 % Normal [facility] Comment on above: Order Comment: Speci men Type: BLOOD SPECIMENOrdering Facility: [facility] Address: [address] [place] [address] Performed By: #### 5 7021-8 ####[facility] [id number] [place] [address] [place] Neutrophils (Bld) [#/Vol] 2.74 10*3/uL Normal 1.45-7.50 [facility] Comment on above: Order Comment: Speci men Type: BLOOD SPECIMENOrdering Facility: [facility] Address: [address] [place] [address] Performed By: #### 5 7021-8 ####[facility] [id number] [place] [address] [place] Neutrophils/100 WBC (Bld) 76.7 % Normal [facility] Comment on above: Order Comment: Speci men Type: BLOOD SPECIMENOrdering Facility: [facility] Address: [address] [place] [address] Performed By: #### 5 7021-8 ####[facility] [id number] [place] [address] [place] Nucleated RBC (Bld) [#/Vol] 10*3/uL Normal <0.01 [facility] Comment on above: Order Comment: Speci men Type: BLOOD SPECIMENOrdering Facility: [facility] Address: [address] [place] [address] Performed By: #### 5 7021-8 ####[facility] [id number] [place] [address] [place] Nucleated RBC/100 WBC (Bld) [Ratio] 0.0 /100 WBC Normal [facility] Comment on above: Order Comment: Speci men Type: BLOOD SPECIMENOrdering Facility: [facility] Address: [address] [place] [address] Performed By: #### 5 7021-8 ####[facility] BECKYNCLESLYA [id number] [place] [address] [place] Platelet mean volume (Bld) [Entitic vol] 10.5 fL Normal 9.0-12.7 [facility] Comment on above: Order Comment: Speci men Type: BLOOD SPECIMENOrdering Facility: [facility] Address: [address] [place] [address] Performed By: #### 5 7021-8 ####[facility] [id number] [place] [address] [place] Platelets (Bld) [#/Vol] 117 10*3/uL Low 150-400 [facility] Comment on above: Order Comment: Speci men Type: BLOOD SPECIMENOrdering Facility: [facility] Address: [address] [place] [address] Performed By: #### 5 7021-8 ####[facility] [id number] [place] [address] [place] RBC (Bld) [#/Vol] 2.65 10*6/uL Low 4.20-6.00 [facility] Comment on above: Order Comment: Speci men Type: BLOOD SPECIMENOrdering Facility: [facility] Address: [address] [place] [address] Performed By: #### 5 7021-8 ####[facility] [id number] [place] [address] [place] WBC (Bld) [#/Vol] 3.57 10*3/uL Low 3.70-11.00 [facility] Comment on above: Order Comment: Speci men Type: BLOOD SPECIMENOrdering Facility: [facility] Address: [address] [place] [address] Performed By: #### 5 7021-8 ####[facility] GABBY MILLTOWNCLIA [id number] [place] [address] [facility] Comprehensive metabolic 2000 panelon 11-04-2024 Albumin [Mass/Vol] 4.4 g/dL Normal 3.9-4.9 [facility] Comment on above: Order Comment: Speci men Type: BLOOD SPECIMENOrdering Facility: [facility] Address: [address] [place] [address] Performed By: #### 2 4323-8 ####[facility] MILLTOWNCLIA [id number] [place] [address] [place] ALP [Catalytic activity/Vol] 115 U/L High 38-113 [facility] Comment on above: Order Comment: Speci men Type: BLOOD SPECIMENOrdering Facility: [facility] Address: [address] [place] [address] Performed By: #### 2 4323-8 ####[facility] MILLSAMWROCKYLIA [id number] [address] [place] ALT [Catalytic activity/Vol] 82 U/L High 10-54 [facility] Comment on above: Order Comment: Speci men Type: BLOOD SPECIMENOrdering Facility: [facility] Address: [address] [place] [address] Performed By: #### 2 4323-8 ####[facility] GABBY MILLTOWNCLIA [id number] [place] [address] [place] Anion gap [Moles/Vol] 10 mmol/L Normal 8-15 [facility] Comment on above: Order Comment: Speci men Type: BLOOD SPECIMENOrdering Facility: [facility] Address: [address] [place] [address] Performed By: #### 2 4323-8 ####[facility] MILLTOWNCLIA [id number] [place] [address] [place] AST [Catalytic activity/Vol] 57 U/L High 14-40 [facility] Comment on above: Order Comment: Speci men Type: BLOOD SPECIMENOrdering Facility: [facility] Address: [address] [place] [address] Performed By: #### 2 4323-8 ####[facility] SPRINGSWNCLIA [id number] [place] [address] [place] Bilirubin [Mass/Vol] 0.7 mg/dL Normal 0.2-1.3 [facility] Comment on above: Order Comment: Speci men Type: BLOOD SPECIMENOrdering Facility: [facility] Address: [address] [place] [address] Performed By: #### 2 4323-8 ####[facility]CL[facility] [id number] [place] [address] [place] Calcium [Mass/Vol] 9.7 mg/dL Normal 8.5-10.2 [facility] Comment on above: Order Comment: Speci men Type: BLOOD SPECIMENOrdering Facility: [facility] Address: [address] [place] [address] Performed By: #### 2 4323-8 ####[facility] SPRINGSWNCLIA [id number] [place] [address] [place] Chloride [Moles/Vol] 101 mmol/L Normal 98-107 [facility] Comment on above: Order Comment: Speci men Type: BLOOD SPECIMENOrdering Facility: [facility] Address: [address] [place] [address] Performed By: #### 2 4323-8 ####[facility] GABBY MILLTOWNCLIA [id number] [place] [address] [place] CO2 [Moles/Vol] 27 mmol/L Normal 22-30 [facility] Comment on above: Order Comment: Speci men Type: BLOOD SPECIMENOrdering Facility: [facility] Address: [address] [place] [address] Performed By: #### 2 4323-8 ####[facility] GABBY SHERRIMARIONNCSAURABH [id number] [place] [address] [place] Creatinine [Mass/Vol] 0.76 mg/dL Normal 0.73-1.22 [facility] Comment on above: Order Comment: Speci men Type: BLOOD SPECIMENOrdering Facility: [facility] Address: [address] [place] [address] Performed By: #### 2 4323-8 ####[facility] [id number] [place] [address] [place] Creatinine and Glomerular filtration rate.predicted panel (S/P/Bld) 91 mL/min/1.73m??? Normal >=60 [facility] Comment on above: Order Comment: Speci men Type: BLOOD SPECIMENOrdering Facility: [facility] Address: [address] [place] [address] Result Comment: Lilly mated Glomerular Filtration Rate (eGFR) is calculated using the 2020 CKD-EPI creatinine equation. This equation utilizes serum creatinine, sex, and age as parameters. The creatinine assay has traceable calibration to isotope dilution-mass spectrometry. Refer to KDIGO guidelines for clinical interpretation. In patients with unstable renal function, e.g. those with acute kidney injury, the eGFR may not accurately reflect actual GFR. Performed By: #### 2 4323-8 ####[facility]SNCL[facility] [id number] [place] [address] [place] Glucose [Mass/Vol] 147 mg/dL High 74-99 [facility] Comment on above: Order Comment: Speci men Type: BLOOD SPECIMENOrdering Facility: [facility] Address: [address] [place] [address] Result Comment: The [place] [employer] Association (ADA) provides guidance for cutoff values for fasting glucose and random glucose. The ADA defines fasting as no caloric intake for at least 8 hours. Fasting plasma glucose results between 100 to 125 mg/dL indicate increased risk for diabetes (prediabetes).Fasting plasma glucose results greater than or equal to 126 mg/dL meet the criteria for diagnosis of diabetes. In the absence of unequivocal hyperglycemia, results should be confirmed by repeat testing. In a patient with classic symptoms of hyperglycemia or hyperglycemic crisis, random plasma glucose results greater than or equal to 200 mg/dL meet the criteria for diagnosis of diabetes.Reference: Standards of Medical Care in Diabetes 2016, [place] [employer]. Diabetes Care. 2016.39(Suppl 1). Performed By: #### 2 4323-8 ####[facility] MILLTOWNCLIA [id number] [place] [address] [place] Potassium [Moles/Vol] 4.0 mmol/L Normal 3.7-5.1 [facility] Comment on above: Order Comment: Speci men Type: BLOOD SPECIMENOrdering Facility: [facility] Address: [address] [place] [address] Performed By: #### 2 4323-8 ####[facility] MILLTOWNCLIA [id number] [place] [address] [place] Protein [Mass/Vol] 6.5 g/dL Normal 6.3-8.0 [facility] Comment on above: Order Comment: Speci men Type: BLOOD SPECIMENOrdering Facility: [facility] Address: [address] [place] [address] Performed By: #### 2 4323-8 ####[facility] MILLTOWNCLIA [id number] [place] [id number] [place] Sodium [Moles/Vol] 138 mmol/L Normal 136-144 [facility] Comment on above: Order Comment: Speci men Type: BLOOD SPECIMENOrdering Facility: [facility] Address: [address] [place], [place] [address] Performed By: #### 2 4323-8 ####[facility] MILLTOWNCLIA [id number] [place] [address] [place] Urea nitrogen [Mass/Vol] 12 mg/dL Normal - [facility] Comment on above: Order Comment: Speci men Type: BLOOD SPECIMENOrdering Facility: [facility] Address: [address] [place] [address] Performed By: #### 2 4323-8 ####[facility] [id number] [place] [address] [place] BRCon 10-20-2024 RC Normal [facility] Comment on above: Result Comment: [id number] BN RC TRANSFUSED 10/22/24 0938 [id number] BP RC TRANSFUSED 10/22/24 1132 Performed By: #### B , BTS #### [facility] [address] [facility] [place], [address] CBC W Auto Differential pane l (Bld)on 10-20-2024 Basophils (Bld) [#/Vol] 10*3/uL Normal <0.11 [facility] Comment on above: Order Comment: Speci men Type: BLOOD SPECIMENOrdering Facility: [facility] Address: [address] [place] [address] Performed By: #### 5 7021-8 ####[facility] SPRINGSROCKYLIA [id number] [place] [address] [place] Basophils/100 WBC (Bld) 0.4 % Normal [facility] Comment on above: Order Comment: Speci men Type: BLOOD SPECIMENOrdering Facility: [facility] Address: [address] [place] [address] Performed By: #### 5 7021-8 ####[facility] [id number] [place] [address] [place] Differential cell count method Nom (Bld) Auto Normal [facility] Comment on above: Order Comment: Speci men Type: BLOOD SPECIMENOrdering Facility: [facility] Address: [address] [place] [address] Performed By: #### 5 7021-8 ####[facility] SPRINGSLUISITO [id number] [place] [address] [place] Eosinophils (Bld) [#/Vol] 0.03 10*3/uL Normal <0.46 [facility] Comment on above: Order Comment: Speci men Type: BLOOD SPECIMENOrdering Facility: [facility] Address: [address] [place] [address] Performed By: #### 5 7021-8 ####[facility] [id number] [place] [address] [place] Eosinophils/100 WBC (Bld) 1.3 % Normal [facility] Comment on above: Order Comment: Speci men Type: BLOOD SPECIMENOrdering Facility: [facility] Address: [address] [place] [address] Performed By: #### 5 7021-8 ####[facility] [id number] [place] [address] [place] Erythrocyte distribution width (RBC) [Ratio] 20.3 % High 11.5-15.0 [facility] Comment on above: Order Comment: Speci men Type: BLOOD SPECIMENOrdering Facility: [facility] Address: [address] [place] [address] Performed By: #### 5 7021-8 ####[facility] [id number] [place] [address] [place] Hematocrit (Bld) [Volume fraction] 22.9 % Low 39.0-51.0 [facility] Comment on above: Order Comment: Speci men Type: BLOOD SPECIMENOrdering Facility: [facility] Address: [address] [place] [address] Performed By: #### 5 7021-8 ####[facility] SPRINGSWNCLIA [id number] [place] [address] [place] Hemoglobin (Bld) [Mass/Vol] 7.8 g/dL Low 13.0-17.0 [facility] Comment on above: Order Comment: Speci men Type: BLOOD SPECIMENOrdering Facility: [facility] Address: [address] [place] [address] Performed By: #### 5 7021-8 ####[facility] [id number] [place] [address] [place] Immature granulocytes (Bld) [#/Vol] 10*3/uL Normal <0.10 [facility] Comment on above: Order Comment: Speci men Type: BLOOD SPECIMENOrdering Facility: [facility] Address: [address] [place] [address] Performed By: #### 5 7021-8 ####[facility] [id number] [place] [address] [place] Immature granulocytes/100 WBC (Bld) 0.4 % Normal [facility] Comment on above: Order Comment: Speci men Type: BLOOD SPECIMENOrdering Facility: [facility] Address: [address] [place] [address] Performed By: #### 5 7021-8 ####[facility] [id number] [place] [address] [place] Lymphocytes (Bld) [#/Vol] 0.69 10*3/uL Low 1.00-4.00 [facility] Comment on above: Order Comment: Speci men Type: BLOOD SPECIMENOrdering Facility: [facility] Address: [address] [place] [address] Performed By: #### 5 7021-8 ####[facility]INGSNCLIA [id number] [place] [address] [place] Lymphocytes/100 WBC (Bld) 29.5 % Normal [facility] Comment on above: Order Comment: Speci men Type: BLOOD SPECIMENOrdering Facility: [facility] Address: [address] [place] [address] Performed By: #### 5 7021-8 ####[facility] [id number] [place] [address] [place] MCH (RBC) [Entitic mass] 32.8 pg Normal 26.0-34.0 [facility] Comment on above: Order Comment: Speci men Type: BLOOD SPECIMENOrdering Facility: [facility] Address: [address] [place] [address] Performed By: #### 5 7021-8 ####[facility] [id number] [place] [address] [place] MCHC (RBC) [Mass/Vol] 34.1 g/dL Normal 30.5-36.0 [facility] Comment on above: Order Comment: Speci men Type: BLOOD SPECIMENOrdering Facility: [facility] Address: [address] [place] [address] Performed By: #### 5 7021-8 ####[facility] [id number] [place] [address] [place] MCV (RBC) [Entitic vol] 96.2 fL Normal 80.0-100.0 [facility] Comment on above: Order Comment: Speci men Type: BLOOD SPECIMENOrdering Facility: [facility] Address: [address] [place], [place] [id number] Performed By: #### 5 7021-8 ####[facility] [id number] [place] [address] [place] Monocytes (Bld) [#/Vol] 0.13 10*3/uL Normal <0.87 [facility] Comment on above: Order Comment: Speci men Type: BLOOD SPECIMENOrdering Facility: [facility] Address: [address] [place] [address] Performed By: #### 5 7021-8 ####[facility] SPRINGSLUISITO [id number] [place] [address] [place] Monocytes/100 WBC (Bld) 5.6 % Normal [facility] Comment on above: Order Comment: Speci men Type: BLOOD SPECIMENOrdering Facility: [facility] Address: [address] [place] [address] Performed By: #### 5 7021-8 ####[facility] [id number] [place] [address] [place] Neutrophils (Bld) [#/Vol] 1.47 10*3/uL Normal 1.45-7.50 [facility] Comment on above: Order Comment: Speci men Type: BLOOD SPECIMENOrdering Facility: [facility] Address: [address] [place] [address] Performed By: #### 5 7021-8 ####[facility] [id number] [place] [address] [place] Neutrophils/100 WBC (Bld) 62.8 % Normal [facility] Comment on above: Order Comment: Speci men Type: BLOOD SPECIMENOrdering Facility: [facility] Address: [address] [place] [address] Performed By: #### 5 7021-8 ####[facility] [id number] [place] [address] [place] Nucleated RBC (Bld) [#/Vol] 10*3/uL Normal <0.01 [facility] Comment on above: Order Comment: Speci men Type: BLOOD SPECIMENOrdering Facility: [facility] Address: [address] [place] [address] Performed By: #### 5 7021-8 ####[facility] ADRIENLIA [id number] [place] [address] [place] Nucleated RBC/100 WBC (Bld) [Ratio] 0.0 /100 WBC Normal [facility] Comment on above: Order Comment: Speci men Type: BLOOD SPECIMENOrdering Facility: [facility] Address: [address] [place] [address] Performed By: #### 5 7021-8 ####[facility] [id number] [place] [address] [place] Platelet mean volume (Bld) [Entitic vol] 10.6 fL Normal 9.0-12.7 [facility] Comment on above: Order Comment: Speci men Type: BLOOD SPECIMENOrdering Facility: [facility] Address: [address] [place] [address] Performed By: #### 5 7021-8 ####[facility] [id number] [place] [address] [place] Platelets (Bld) [#/Vol] 123 10*3/uL Low 150-400 [facility] Comment on above: Order Comment: Speci men Type: BLOOD SPECIMENOrdering Facility: [facility] Address: [address] [place] [address] Performed By: #### 5 7021-8 ####[facility] [id number] [place] [address] [place] RBC (Bld) [#/Vol] 2.38 10*6/uL Low 4.20-6.00 [facility] Comment on above: Order Comment: Speci men Type: BLOOD SPECIMENOrdering Facility: [facility] Address: [address] [place] [address] Performed By: #### 5 7021-8 ####[facility] SPRINGSNCLIA [id number] [place] [address] [place] WBC (Bld) [#/Vol] 2.34 10*3/uL Low 3.70-11.00 [facility] Comment on above: Order Comment: Speci men Type: BLOOD SPECIMENOrdering Facility: [facility] Address: [address] [place] [address] Performed By: #### 5 7021-8 ####[facility] HOSPITALDarrick [id number] [place] [address] [place] CNPNon 10-20-2024 CNPN Normal [facility] metabolic 2000 panelon 10-20-2024 Albumin [Mass/Vol] 4.5 g/dL Normal 3.9-4.9 [facility] Comment on above: Order Comment: Speci men Type: BLOOD SPECIMENOrdering Facility: [facility] Address: [address] [place] [address] Performed By: #### 2 4323-8 ####[facility] [id number] [place] [address] [place] ALP [Catalytic activity/Vol] 96 U/L Normal 38-113 [facility] Comment on above: Order Comment: Speci men Type: BLOOD SPECIMENOrdering Facility: [facility] Address: [address] [place] [address] Performed By: #### 2 4323-8 ####[facility] [id number] [place] [address] [place] ALT [Catalytic activity/Vol] 89 U/L High 10-54 [facility] Comment on above: Order Comment: Speci men Type: BLOOD SPECIMENOrdering Facility: [facility] Address: [address] [place] [address] Performed By: #### 2 4323-8 ####[facility]INGSNCL[facility] [id number] [place] [address] [place] Anion gap [Moles/Vol] 8 mmol/L Normal 8-15 [facility] Comment on above: Order Comment: Speci men Type: BLOOD SPECIMENOrdering Facility: [facility] Address: [address] [place] [address] Performed By: #### 2 4323-8 ####[facility] [id number] [place] [address] [place] AST [Catalytic activity/Vol] 56 U/L High 14-40 [facility] Comment on above: Order Comment: Speci men Type: BLOOD SPECIMENOrdering Facility: [facility] Address: [address] [place] [address] Performed By: #### 2 4323-8 ####[facility] [id number] [place] [address] [place] Bilirubin [Mass/Vol] 0.8 mg/dL Normal 0.2-1.3 [facility] Comment on above: Order Comment: Speci men Type: BLOOD SPECIMENOrdering Facility: [facility] Address: [address] [place] [address] Performed By: #### 2 4323-8 ####[facility] [id number] [place] [address] [place] Calcium [Mass/Vol] 9.6 mg/dL Normal 8.5-10.2 [facility] Comment on above: Order Comment: Speci men Type: BLOOD SPECIMENOrdering Facility: [facility] Address: [address] [place] [address] Performed By: #### 2 4323-8 ####[facility] [id number] [place] [address] [place] Chloride [Moles/Vol] 100 mmol/L Normal 98-107 [facility] Comment on above: Order Comment: Speci men Type: BLOOD SPECIMENOrdering Facility: [facility] Address: [address] [id number] Performed By: #### 2 4323-8 ####[facility]PITALLIA [id number] [place] [address] [place] CO2 [Moles/Vol] 27 mmol/L Normal 22-30 [facility] Comment on above: Order Comment: Speci men Type: BLOOD SPECIMENOrdering Facility: [facility] Address: [address] [place] [address] Performed By: #### 2 4323-8 ####[facility] [id number] [place] [address] [place] Creatinine [Mass/Vol] 0.71 mg/dL Low 0.73-1.22 [facility] Comment on above: Order Comment: Speci men Type: BLOOD SPECIMENOrdering Facility: [facility] Address: [address] [place] [address] Performed By: #### 2 4323-8 ####[facility] [id number] [place] [address] [place] Creatinine and Glomerular filtration rate.predicted panel (S/P/Bld) 93 mL/min/1.73m??? Normal >=60 [facility] Comment on above: Order Comment: Speci men Type: BLOOD SPECIMENOrdering Facility: [facility] Address: [address] [place] [address] Result Comment: Lilly mated Glomerular Filtration Rate (eGFR) is calculated using the 2020 CKD-EPI creatinine equation. This equation utilizes serum creatinine, sex, and age as parameters. The creatinine assay has traceable calibration to isotope dilution-mass spectrometry. Refer to KDIGO guidelines for clinical interpretation. In patients with unstable renal function, e.g. those with acute kidney injury, the eGFR may not accurately reflect actual GFR. Performed By: #### 2 4323-8 ####[facility]CL[facility] [id number] [place] [address] [place] Glucose [Mass/Vol] 95 mg/dL Normal 74-99 [facility] Comment on above: Order Comment: Speci men Type: BLOOD SPECIMENOrdering Facility: [facility] Address: [address] [place], [place] [id number] Result Comment: The [place] Diabetes Association (ADA) provides guidance for cutoff values for fasting glucose and random glucose. The ADA defines fasting as no caloric intake for at least 8 hours. Fasting plasma glucose results between 100 to 125 mg/dL indicate increased risk for diabetes (prediabetes).Fasting plasma glucose results greater than or equal to 126 mg/dL meet the criteria for diagnosis of diabetes. In the absence of unequivocal hyperglycemia, results should be confirmed by repeat testing. In a patient with classic symptoms of hyperglycemia or hyperglycemic crisis, random plasma glucose results greater than or equal to 200 mg/dL meet the criteria for diagnosis of diabetes.Reference: Standards of Medical Care in Diabetes 2016, [place] [employer] Association. Diabetes Care. 2016.39(Suppl 1). Performed By: #### 2 4323-8 ####[facility]ENTERA [id number] [place] [address] [place] Potassium [Moles/Vol] 4.3 mmol/L Normal 3.7-5.1 [facility] Comment on above: Order Comment: Erwini men Type: BLOOD SPECIMENOrdering Facility: [facility] Address: [address] [place] [address] Performed By: #### 2 4323-8 ####[facility] SPRINGSWGALIDarrick [id number] [place] [address] [place] Protein [Mass/Vol] 6.6 g/dL Normal 6.3-8.0 [facility] Comment on above: Order Comment: Speci men Type: BLOOD SPECIMENOrdering Facility: [facility] Address: [address] [place], [place] [id number] Performed By: #### 2 4323-8 ####[facility] SPRINGSWNCLIA [id number] [place] [address] [place] Sodium [Moles/Vol] 135 mmol/L Low 136-144 [facility] Comment on above: Order Comment: Speci men Type: BLOOD SPECIMENOrdering Facility: [facility] Address: [address] [place] [address] Performed By: #### 2 4323-8 ####[facility] [id number] [address] OF [facility] Urea nitrogen [Mass/Vol] 11 mg/dL Normal 9-24 [facility] Comment on above: Order Comment: Speci men Type: BLOOD SPECIMENOrdering Facility: [facility] Address: [address] [place] [address] Performed By: #### 2 4323-8 ####[facility] [id number] [address] OF [facility] Type AND Screenon 10-20-2024 Ab SCREEN GEL Negative Normal [facility] Comment on above: Order Comment: PRETR ANSFUSION HGB = 7.7 HCT = 22.4 PERFORMED AT [facility] N 08/26/2025 @ 0800 N Y A Performed By: #### Benito VELA BTS #### [facility] [address] [facility]. [place], [place], [id number] ABO and Rh group Nom (Bld) Blood group B Rh(D) positive Normal [facility] Comment on above: Order Comment: PRETR ANSFUSION HGB = 7.7 HCT = 22.4 PERFORMED AT [facility] N 08/26/2025 @ 0800 N Y A Performed By: #### B MIRIAN BTS #### [facility] [address] [place], [place], [id number] CBC W Auto Differential pane l (Bld)on 10-13-2024 Basophils (Bld) [#/Vol] 10*3/uL Normal <0.11 C [facility] Comment on above: Order Comment: Speci men Type: BLOOD SPECIMENOrdering Facility: [facility] Address: [address] [place] [address] Performed By: #### 5 7021-8 ####[facility] MILLWNCLIA [id number] [place] [address] [place] Basophils/100 WBC (Bld) 0.5 % Normal [facility] Comment on above: Order Comment: Speci men Type: BLOOD SPECIMENOrdering Facility: [facility] Address: [address] [place] [address] Performed By: #### 5 7021-8 ####[facility]PITALL[facility] [id number] [place] [address] [place] Differential cell count method Nom (Bld) Auto Normal [facility] Comment on above: Order Comment: Speci men Type: BLOOD SPECIMENOrdering Facility: [facility] Address: [address] [place] [address] Performed By: #### 5 7021-8 ####[facility] [id number] [place] [address] [place] Eosinophils (Bld) [#/Vol] 0.05 10*3/uL Normal <0.46 [facility] Comment on above: Order Comment: Speci men Type: BLOOD SPECIMENOrdering Facility: [facility] Address: [address] [place] [address] Performed By: #### 5 7021-8 ####[facility] [id number] [place] [address] [place] Eosinophils/100 WBC (Bld) 2.4 % Normal [facility] Comment on above: Order Comment: Speci men Type: BLOOD SPECIMENOrdering Facility: [facility] Address: [address] [place] [address] Performed By: #### 5 7021-8 ####[facility]CL[facility] [id number] [place] [address] [place] Erythrocyte distribution width (RBC) [Ratio] 19.2 % High 11.5-15.0 [facility] Comment on above: Order Comment: Speci men Type: BLOOD SPECIMENOrdering Facility: [facility] Address: [address] [place] [address] Performed By: #### 5 7021-8 ####[facility] [id number] [place] [address] [place] Hematocrit (Bld) [Volume fraction] 26.3 % Low 39.0-51.0 [facility] Comment on above: Order Comment: Speci men Type: BLOOD SPECIMENOrdering Facility: [facility] Address: [address] [place] [address] Performed By: #### 5 7021-8 ####[facility] [id number] [place] [address] [place] Hemoglobin (Bld) [Mass/Vol] 8.8 g/dL Low 13.0-17.0 [facility] Comment on above: Order Comment: Speci men Type: BLOOD SPECIMENOrdering Facility: [facility] Address: [address] [place] [address] Performed By: #### 5 7021-8 ####[facility] [id number] [place] [address] [place] Immature granulocytes (Bld) [#/Vol] 0.03 10*3/uL Normal <0.10 [facility] Comment on above: Order Comment: Speci men Type: BLOOD SPECIMENOrdering Facility: [facility] Address: [address] [place] [address] Performed By: #### 5 7021-8 ####[facility] [id number] [place] [address] [place] Immature granulocytes/100 WBC (Bld) 1.5 % Normal [facility] Comment on above: Order Comment: Speci men Type: BLOOD SPECIMENOrdering Facility: [facility] Address: [address] [place] [address] Performed By: #### 5 7021-8 ####[facility] SHERRIMARIONLUISITO [id number] [place] [address] [place] Lymphocytes (Bld) [#/Vol] 0.50 10*3/uL Low 1.00-4.00 [facility] Comment on above: Order Comment: Speci men Type: BLOOD SPECIMENOrdering Facility: [facility] Address: [address] [place] [address] Performed By: #### 5 7021-8 ####[facility] [id number] [place] [address] [place] Lymphocytes/100 WBC (Bld) 24.4 % Normal [facility] Comment on above: Order Comment: Speci men Type: BLOOD SPECIMENOrdering Facility: [facility] Address: [address] [place] [address] Performed By: #### 5 7021-8 ####[facility] [id number] [place] [address] [place] MCH (RBC) [Entitic mass] 32.2 pg Normal 26.0-34.0 [facility] Comment on above: Order Comment: Speci men Type: BLOOD SPECIMENOrdering Facility: [facility] Address: [address] [place] [address] Performed By: #### 5 7021-8 ####[facility] [id number] [place] [address] [place] MCHC (RBC) [Mass/Vol] 33.5 g/dL Normal 30.5-36.0 [facility] Comment on above: Order Comment: Speci men Type: BLOOD SPECIMENOrdering Facility: [facility] Address: [address] [place] [address] Performed By: #### 5 7021-8 ####[facility] MILLWNCLIA [id number] [place] [address] [place] MCV (RBC) [Entitic vol] 96.3 fL Normal 80.0-100.0 C [facility] Comment on above: Order Comment: Speci men Type: BLOOD SPECIMENOrdering Facility: [facility] Address: [address] [place] [address] Performed By: #### 5 7021-8 ####[facility] [id number] [place] [address] [place] Monocytes (Bld) [#/Vol] 0.10 10*3/uL Normal <0.87 [facility] Comment on above: Order Comment: Speci men Type: BLOOD SPECIMENOrdering Facility: [facility] Address: [address] [place] [address] Performed By: #### 5 7021-8 ####[facility] [id number] [place] [address] [place] Monocytes/100 WBC (Bld) 4.9 % Normal C [facility] Comment on above: Order Comment: Speci men Type: BLOOD SPECIMENOrdering Facility: [facility] Address: [address] [place] [address] Performed By: #### 5 7021-8 ####[facility] [id number] [place] [address] [place] Neutrophils (Bld) [#/Vol] 1.36 10*3/uL Low 1.45-7.50 [facility] Comment on above: Order Comment: Speci men Type: BLOOD SPECIMENOrdering Facility: [facility] Address: [address] [place] [address] Performed By: #### 5 7021-8 ####[facility] SPRINGSNCLIA [id number] [place] [address] [place] Neutrophils/100 WBC (Bld) 66.3 % Normal [facility] Comment on above: Order Comment: Speci men Type: BLOOD SPECIMENOrdering Facility: [facility] Address: [address] [place] [address] Performed By: #### 5 7021-8 ####[facility] [id number] [place] [address] [place] Nucleated RBC (Bld) [#/Vol] 10*3/uL Normal <0.01 [facility] Comment on above: Order Comment: Speci men Type: BLOOD SPECIMENOrdering Facility: [facility] Address: [address] [place] [address] Performed By: #### 5 7021-8 ####[facility] [id number] [place] [address] [place] Nucleated RBC/100 WBC (Bld) [Ratio] 0.0 /100 WBC Normal [facility] Comment on above: Order Comment: Speci men Type: BLOOD SPECIMENOrdering Facility: [facility] Address: [address] [place] [address] Performed By: #### 5 7021-8 ####[facility] [id number] [place] [address] [place] Platelet mean volume (Bld) [Entitic vol] 10.1 fL Normal 9.0-12.7 [facility] Comment on above: Order Comment: Speci men Type: BLOOD SPECIMENOrdering Facility: [facility] Address: [address] [place] [address] Performed By: #### 5 7021-8 ####[facility] [id number] [place] [address] [place] Platelets (Bld) [#/Vol] 104 10*3/uL Low 150-400 [facility] Comment on above: Order Comment: Speci men Type: BLOOD SPECIMENOrdering Facility: [facility] Address: [address] [place] [address] Performed By: #### 5 7021-8 ####[facility] BECKYROCKYSAURABH [id number] [place] [address] [place] RBC (Bld) [#/Vol] 2.73 10*6/uL Low 4.20-6.00 [facility] Comment on above: Order Comment: Speci men Type: BLOOD SPECIMENOrdering Facility: [facility] Address: [address] [place] [address] Performed By: #### 5 7021-8 ####[facility] SHERRIMARIONROCKYLESLYDarrick [id number] [place] [address] [place] WBC (Bld) [#/Vol] 2.05 10*3/uL Low 3.70-11.00 [facility] Comment on above: Order Comment: Speci men Type: BLOOD SPECIMENOrdering Facility: [facility] Address: [address] [place] [address] Performed By: #### 5 7021-8 ####[facility] SHERRIMARIONROCKYLESLYDarrick [id number] [place] [address] [place] CNOVSPon 10-13-2024 CNOVSP Normal [facility] CNPNon 10-13-2024 CNPN Normal [facility] Comprehensive metabolic 2000 panelon 10-13-2024 Albumin [Mass/Vol] 4.6 g/dL Normal 3.9-4.9 [facility] Comment on above: Order Comment: Speci men Type: BLOOD SPECIMENOrdering Facility: [facility] Address: [address] [place], [place] [id number] Performed By: #### 2 4323-8 ####[facility] SHERRIMARIONNCLIA [id number] [place] [address] [place] ALP [Catalytic activity/Vol] 102 U/L Normal 38-113 [facility] Comment on above: Order Comment: Speci men Type: BLOOD SPECIMENOrdering Facility: [facility] Address: [address] [place] [address] Performed By: #### 2 4323-8 ####[facility] SHERRIVidhyaNCLIA [id number] [place] [address] [place] ALT [Catalytic activity/Vol] 106 U/L High 10-54 [facility] Comment on above: Order Comment: Speci men Type: BLOOD SPECIMENOrdering Facility: [facility] Address: [address] [place] [address] Performed By: #### 2 4323-8 ####[facility] SPRINGSNCLIA [id number] [place] [address] [place] Anion gap [Moles/Vol] 9 mmol/L Normal 8-15 [facility] Comment on above: Order Comment: Speci men Type: BLOOD SPECIMENOrdering Facility: [facility] Address: [address] [place] [address] Performed By: #### 2 4323-8 ####[facility] SPRINGSNCLIA [id number] [place] [address] [place] AST [Catalytic activity/Vol] 69 U/L High 14-40 [facility] Comment on above: Order Comment: Speci men Type: BLOOD SPECIMENOrdering Facility: [facility] Address: [address] [place] [address] Performed By: #### 2 4323-8 ####[facility] SPRINGSNCLIA [id number] [place] [address] [place] Bilirubin [Mass/Vol] 0.8 mg/dL Normal 0.2-1.3 [facility] Comment on above: Order Comment: Speci men Type: BLOOD SPECIMENOrdering Facility: [facility] Address: [address] [place] [address] Performed By: #### 2 4323-8 ####[facility] GABBY MILLTOWNCLIA [id number] [place] [address] [place] Calcium [Mass/Vol] 10.2 mg/dL Normal 8.5-10.2 [facility] Comment on above: Order Comment: Speci men Type: BLOOD SPECIMENOrdering Facility: [facility] Address: [address] [place] [address] Performed By: #### 2 4323-8 ####[facility] MILLTOWNCLIA [id number] [place] [address] [place] Chloride [Moles/Vol] 102 mmol/L Normal 98-107 [facility] Comment on above: Order Comment: Speci men Type: BLOOD SPECIMENOrdering Facility: [facility] Address: [address] [place] [address] Performed By: #### 2 4323-8 ####[facility] SPRINGSWNCLIA [id number] [place] [address] [place] CO2 [Moles/Vol] 25 mmol/L Normal 22-30 [facility] Comment on above: Order Comment: Speci men Type: BLOOD SPECIMENOrdering Facility: [facility] Address: [address] [place] [address] Performed By: #### 2 4323-8 ####[facility] MILLTOWNCLIA [id number] [place] [address] [place] Creatinine [Mass/Vol] 0.81 mg/dL Normal 0.73-1.22 [facility] Comment on above: Order Comment: Speci men Type: BLOOD SPECIMENOrdering Facility: [facility] Address: [address] [place] [address] Performed By: #### 2 4323-8 ####[facility] MILLTOWNCLIA [id number] [place] [address] [place] Creatinine and Glomerular filtration rate.predicted panel (S/P/Bld) 89 mL/min/1.73m??? Normal >=60 [facility] Comment on above: Order Comment: Gilma ojeda Type: BLOOD SPECIMENOrdering Facility: [facility] Address: [address] [place] [address] Result Comment: Lilly mated Glomerular Filtration Rate (eGFR) is calculated using the 2020 CKD-EPI creatinine equation. This equation utilizes serum creatinine, sex, and age as parameters. The creatinine assay has traceable calibration to isotope dilution-mass spectrometry. Refer to KDIGO guidelines for clinical interpretation. In patients with unstable renal function, e.g. those with acute kidney injury, the eGFR may not accurately reflect actual GFR. Performed By: #### 2 4323-8 ####[facility] [id number] [place] [address] [place] Glucose [Mass/Vol] 106 mg/dL High 74-99 [facility] Comment on above: Order Comment: Gilma ojeda Type: BLOOD SPECIMENOrdering Facility: [facility] Address: [address] [place] [address] Result Comment: The [place] Diabetes Association (ADA) provides guidance for cutoff values for fasting glucose and random glucose. The ADA defines fasting as no caloric intake for at least 8 hours. Fasting plasma glucose results between 100 to 125 mg/dL indicate increased risk for diabetes (prediabetes).Fasting plasma glucose results greater than or equal to 126 mg/dL meet the criteria for diagnosis of diabetes. In the absence of unequivocal hyperglycemia, results should be confirmed by repeat testing. In a patient with classic symptoms of hyperglycemia or hyperglycemic crisis, random plasma glucose results greater than or equal to 200 mg/dL meet the criteria for diagnosis of diabetes.Reference: Standards of Medical Care in Diabetes 2016, [place] Diabetes Association. Diabetes Care. 2016.39(Suppl 1). Performed By: #### 2 4323-8 ####[facility] [id number] [place] [address] [place] Potassium [Moles/Vol] 4.5 mmol/L Normal 3.7-5.1 [facility] Comment on above: Order Comment: Speci men Type: BLOOD SPECIMENOrdering Facility: [facility] Address: [address] [place] [address] Performed By: #### 2 4323-8 ####[facility] JAMESWNCLIA [id number] [place] [address] [place] Protein [Mass/Vol] 6.8 g/dL Normal 6.3-8.0 [facility] Comment on above: Order Comment: Speci men Type: BLOOD SPECIMENOrdering Facility: [facility] Address: [address] [place] [address] Performed By: #### 2 4323-8 ####[facility] SPRINGSNCLIA [id number] [place] [address] [place] Sodium [Moles/Vol] 136 mmol/L Normal 136-144 [facility] Comment on above: Order Comment: Speci men Type: BLOOD SPECIMENOrdering Facility: [facility] Address: [address] [place] [address] Performed By: #### 2 4323-8 ####[facility] SPRINGSNCLIA [id number] [place] [address] [place] Urea nitrogen [Mass/Vol] 10 mg/dL Normal 9-24 [facility] Comment on above: Order Comment: Speci men Type: BLOOD SPECIMENOrdering Facility: [facility] Address: [address] [place] [address] Performed By: #### 2 4323-8 ####[facility] MILLTOWNCLIA [id number] [place] [address] [place] BRCon 09-30-2024 RC Normal [facility] Comment on above: Result Comment: [id number] RC TRANSFUSED 10/01/24 0856 [id number] BP RC TRANSFUSED 10/01/24 1058 Performed By: #### B RC, BTS #### [facility] Laboratory [address] [place], [address] CBC W Auto Differential pane l (Bld)on 09-30-2024 Anisocytosis Ql (Bld) Present Normal [facility] Comment on above: Order Comment: Speci men Type: BLOOD SPECIMENOrdering Facility: [facility] Address: [address] [place] [address] Performed By: #### 5 7021-8 ####[facility] SPRINGSWNCLIA [id number] [address] LABORATORYCLIA [id number] [place] [address] [place] Basophils (Bld) [#/Vol] 0.04 10*3/uL Normal <0.11 [facility] Comment on above: Order Comment: Speci men Type: BLOOD SPECIMENOrdering Facility: [facility] Address: [address] [place] [address] Performed By: #### 5 7021-8 ####[facility] SPRINGSWGALIA [id number] [address] LABORATORYCLIA [id number] [place] [address] [place] Basophils/100 WBC (Bld) 2.0 % Normal [facility] Comment on above: Order Comment: Speci men Type: BLOOD SPECIMENOrdering Facility: [facility] Address: [address] [place] [address] Performed By: #### 5 7021-8 ####[facility] SPRINGSWNCLIA [id number] [address] LABORATORYCLIA [id number] [place] [address] [place] Differential cell count method Nom (Bld) Manual Normal [facility] Comment on above: Order Comment: Speci men Type: BLOOD SPECIMENOrdering Facility: [facility] Address: [address] [place] [address] Performed By: #### 5 7021-8 ####[facility] MILLTOWNCLIA [id number] [address] LABORATORYCLIA [id number] [place] [address] [place] Eosinophils (Bld) [#/Vol] 0.00 10*3/uL Normal <0.46 [facility] Comment on above: Order Comment: Speci men Type: BLOOD SPECIMENOrdering Facility: [facility] Address: [address] [place] [address] Performed By: #### 5 7021-8 ####[facility] SPRINGSROCKYLIA [id number] [address] LABORATORYCLIA [id number] [place] [address] [place] Eosinophils/100 WBC (Bld) 0.0 % Normal [facility] Comment on above: Order Comment: Speci men Type: BLOOD SPECIMENOrdering Facility: [facility] Address: [address] [place] [address] Performed By: #### 5 7021-8 ####[facility] SPRINGSWROCKYLIA [id number] [address] LABORATORYCLIA [id number] [place] [address] [place] Erythrocyte distribution width (RBC) [Ratio] 19.0 % High 11.5-15.0 [facility] Comment on above: Order Comment: Speci men Type: BLOOD SPECIMENOrdering Facility: [facility] Address: [address] [place] [address] Performed By: #### 5 7021-8 ####[facility] SPRINGSWNCLIA [id number] [address] LABORATORYCLIA [id number] [place] [address] [place] Hematocrit (Bld) [Volume fraction] 23.6 % Low 39.0-51.0 [facility] Comment on above: Order Comment: Speci men Type: BLOOD SPECIMENOrdering Facility: [facility] Address: [address] [place] [address] Performed By: #### 5 7021-8 ####[facility]IT[facility] [id number] [address] LABORATORYIA [id number] [place] [address] [place] Hemoglobin (Bld) [Mass/Vol] 7.8 g/dL Low 13.0-17.0 [facility] Comment on above: Order Comment: Speci men Type: BLOOD SPECIMENOrdering Facility: [facility] Address: [address] [place] [address] Performed By: #### 5 7021-8 ####[facility]IT[facility] [id number] [address] LABORATORYCLIA [id number] [place] [address] [place] Miller-Birdsong bodies LM Ql (Bld) Occasional Normal [facility] Comment on above: Order Comment: Speci men Type: BLOOD SPECIMENOrdering Facility: [facility] Address: [address] [place] [address] Performed By: #### 5 7021-8 ####[facility]ITALLIA [id number] [address] LABORATORYCLIA [id number] [place] [address] [place] Lymphocytes (Bld) [#/Vol] 0.68 10*3/uL Low 1.00-4.00 [facility] Comment on above: Order Comment: Speci men Type: BLOOD SPECIMENOrdering Facility: [facility] Address: [address] [place] [address] Performed By: #### 5 7021-8 ####[facility] SHERRITOWNCLIA [id number] [address] LABORATORYCLIA [id number] [address] Lymphocytes/100 WBC (Bld) 38.0 % Normal [facility] Comment on above: Order Comment: Speci men Type: BLOOD SPECIMENOrdering Facility: [facility] Address: [address] [place] [address] Performed By: #### 5 7021-8 ####[facility] SPRINGSNCLIA [id number] [address] LABORATORYCLIA [id number] [place] [address] [place] [facility] MCH (RBC) [Entitic mass] 31.8 pg Normal 26.0-34.0 [facility] Comment on above: Order Comment: Speci men Type: BLOOD SPECIMENOrdering Facility: [facility] Address: [address] [place] [address] Performed By: #### 5 7021-8 ####[facility] SPRINGSWNCLIA [id number] [address] LABORATORYCLIA [id number] [place] [address] [place] MCHC (RBC) [Mass/Vol] 33.1 g/dL Normal 30.5-36.0 [facility] Comment on above: Order Comment: Speci men Type: BLOOD SPECIMENOrdering Facility: [facility] Address: [address] [place] [address] Performed By: #### 5 7021-8 ####[facility]ALTOWNCLIA [id number] [address] LABORATORYCLIA [id number] [place] [address] [place] MCV (RBC) [Entitic vol] 96.3 fL Normal 80.0-100.0 [facility] Comment on above: Order Comment: Speci men Type: BLOOD SPECIMENOrdering Facility: [facility] Address: [address] [place] [address] Performed By: #### 5 7021-8 ####[facility] SPRINGSWNCLIA [id number] [address] LABORATORYCLIA [id number] [address] [place] Monocytes (Bld) [#/Vol] 0.09 10*3/uL Normal <0.87 [facility] Comment on above: Order Comment: Speci men Type: BLOOD SPECIMENOrdering Facility: [facility] Address: [address] [place] [address] Performed By: #### 5 7021-8 ####[facility] SPRINGSNCLIA [id number] [address] LABORATORYCLIA [id number] [place] [address] [place] Monocytes/100 WBC (Bld) 5.0 % Normal [facility] Comment on above: Order Comment: Speci men Type: BLOOD SPECIMENOrdering Facility: [facility] Address: [address] [place] [address] Performed By: #### 5 7021-8 ####[facility] SPRINGSWNCLIA [id number] [address] LABORATORYCLIA [id number] [place] [address] [place] Neutrophils (Bld) [#/Vol] 0.98 10*3/uL Low 1.45-7.50 [facility] Comment on above: Order Comment: Speci men Type: BLOOD SPECIMENOrdering Facility: [facility] Address: [address] [place] [address] Performed By: #### 5 7021-8 ####[facility] MILLTOWNCLIA [id number] [address] LABORATORYCLIA [id number] [place] [address] [place] Neutrophils/100 WBC (Bld) 55.0 % Normal [facility] Comment on above: Order Comment: Speci men Type: BLOOD SPECIMENOrdering Facility: [facility] Address: [address] [place] [address] Performed By: #### 5 7021-8 ####[facility] SPRINGSWNCLIA [id number] [address] LABORATORYCLIA [id number] [place] [address] [place] Nucleated RBC (Bld) [#/Vol] 10*3/uL Normal <0.01 [facility] Comment on above: Order Comment: Speci men Type: BLOOD SPECIMENOrdering Facility: [facility] Address: [address] [place] [address] Performed By: #### 5 7021-8 ####[facility] SPRINGSWNCLIA [id number] [address] LABORATORYCLIA [id number] [place] [address] [place] Nucleated RBC/100 WBC (Bld) [Ratio] 0.0 /100 WBC Normal [facility] Comment on above: Order Comment: Speci men Type: BLOOD SPECIMENOrdering Facility: [facility] Address: [address] [place] [address] Performed By: #### 5 7021-8 ####[facility] MILLTOWNCLIA [id number] [address] LABORATORYCLIA [id number] [place] [address] [place] Ovalocytes LM Ql (Bld) Few Normal Cl [facility] Comment on above: Order Comment: Speci men Type: BLOOD SPECIMENOrdering Facility: [facility] Address: [address] [place] [address] Performed By: #### 5 7021-8 ####[facility]INGSNCLIA [id number] [address] LABORATORYCLIA [id number] [place] [address] [place] Platelet mean volume (Bld) [Entitic vol] 11.0 fL Normal 9.0-12.7 [facility] Comment on above: Order Comment: Speci men Type: BLOOD SPECIMENOrdering Facility: [facility] Address: [address] [place] [address] Performed By: #### 5 7021-8 ####[facility] SPRINGSNCLIA [id number] [address] LABORATORYCLIA [id number] [place] [address] [place] Platelets (Bld) [#/Vol] 82 10*3/uL Low 150-400 C [facility] Comment on above: Order Comment: Speci men Type: BLOOD SPECIMENOrdering Facility: [facility] Address: [address] [place] [address] Result Comment: No c lot detected. Performed By: #### 5 7021-8 ####[facility] SPRINGSWNCLIA [id number] [address] LABORATORYCLIA [id number] [place] [address] [place] Platelets Estimate (Bld) [#/Vol] Decreased Normal [facility] Comment on above: Order Comment: Speci men Type: BLOOD SPECIMENOrdering Facility: [facility] Address: [address] [place] [address] Performed By: #### 5 7021-8 ####[facility] [id number] [address] LABORATORYCLIA [id number] [place] [address] [place] RBC (Bld) [#/Vol] 2.45 10*6/uL Low 4.20-6.00 [facility] Comment on above: Order Comment: Speci men Type: BLOOD SPECIMENOrdering Facility: [facility] Address: [address] [place] [address] Performed By: #### 5 7021-8 ####[facility]ITALLIA [id number] [address] LABORATORYCLIA [id number] [address] [place] RBC FRAGMENTS Few Abnormal None Seen [facility] Comment on above: Order Comment: Speci men Type: BLOOD SPECIMENOrdering Facility: [facility] Address: [address] [place] [address] Performed By: #### 5 7021-8 ####[facility]ALL[facility] [id number] [address] LABORATORYIA [id number] [address] STATES OF [facility] RED CELL MORPH Reviewed: see result s of individual morphologies Normal [facility] Comment on above: Order Comment: Speci men Type: BLOOD SPECIMENOrdering Facility: [facility] Address: [address] [place] [address] Performed By: #### 5 7021-8 ####[facility] MILLTOWNCLIA [id number] [address] LABORATORYCLIA [id number] [place] [address] [place] WBC (Bld) [#/Vol] 1.78 10*3/uL Low 3.70-11.00 [facility] Comment on above: Order Comment: Speci men Type: BLOOD SPECIMENOrdering Facility: [facility] Address: [address] [place] [address] Performed By: #### 5 7021-8 ####[facility]INGSROCKYLIA [id number] [address] LABORATORYCLIA [id number] [place] [address] [place] CNPNon 09-30-2024 CNPN Normal [facility] Comprehensive metabolic 2000 panelon 09-30-2024 Albumin [Mass/Vol] 4.5 g/dL Normal 3.9-4.9 [facility] Comment on above: Order Comment: Speci men Type: BLOOD SPECIMENOrdering Facility: [facility] Address: [address] [place] [id number] Performed By: #### 2 4323-8 ####[facility] SPRINGSWNCLIA [id number] [place] [address] [place] ALP [Catalytic activity/Vol] 95 U/L Normal 38-113 [facility] Comment on above: Order Comment: Speci men Type: BLOOD SPECIMENOrdering Facility: [facility] Address: [address] [place] [address] Performed By: #### 2 4323-8 ####[facility] MILLTOWNCLIA [id number] [place] [address] [place] ALT [Catalytic activity/Vol] 82 U/L High 10-54 [facility] Comment on above: Order Comment: Speci men Type: BLOOD SPECIMENOrdering Facility: [facility] Address: [address] [place] [address] Performed By: #### 2 4323-8 ####[facility] SPRINGSWNCLIA [id number] [place] [address] [place] Anion gap [Moles/Vol] 11 mmol/L Normal 8-15 [facility] Comment on above: Order Comment: Speci men Type: BLOOD SPECIMENOrdering Facility: [facility] Address: [address] [place] [address] Performed By: #### 2 4323-8 ####[facility]ITALL[facility] [id number] [place] [address] [place] AST [Catalytic activity/Vol] 53 U/L High 14-40 [facility] Comment on above: Order Comment: Speci men Type: BLOOD SPECIMENOrdering Facility: [facility] Address: [address] [place] [address] Performed By: #### 2 4323-8 ####[facility] [id number] [place] [address] [place] Bilirubin [Mass/Vol] 0.9 mg/dL Normal 0.2-1.3 [facility] Comment on above: Order Comment: Speci men Type: BLOOD SPECIMENOrdering Facility: [facility] Address: [address] [place] [address] Performed By: #### 2 4323-8 ####[facility] SPRINGSNCLIA [id number] [place] [address] [place] Calcium [Mass/Vol] 9.8 mg/dL Normal 8.5-10.2 [facility] Comment on above: Order Comment: Speci men Type: BLOOD SPECIMENOrdering Facility: [facility] Address: [address] [place] [address] Performed By: #### 2 4323-8 ####[facility] SPRINGSNCLIA [id number] [place] [address] [place] Chloride [Moles/Vol] 99 mmol/L Normal 98-107 [facility] Comment on above: Order Comment: Speci men Type: BLOOD SPECIMENOrdering Facility: [facility] Address: [address] [place] [address] Performed By: #### 2 4323-8 ####[facility] [id number] [place] [address] [place] CO2 [Moles/Vol] 25 mmol/L Normal 22-30 [facility] Comment on above: Order Comment: Speci men Type: BLOOD SPECIMENOrdering Facility: [facility] Address: [address] [place] [address] Performed By: #### 2 4323-8 ####[facility] [id number] [place] [address] [place] Creatinine [Mass/Vol] 0.80 mg/dL Normal 0.73-1.22 [facility] Comment on above: Order Comment: Speci men Type: BLOOD SPECIMENOrdering Facility: [facility] Address: [address] [place] [address] Performed By: #### 2 4323-8 ####[facility] [id number] [address] Creatinine and Glomerular filtration rate.predicted panel (S/P/Bld) 89 mL/min/1.73m??? Normal >=60 [facility] Comment on above: Order Comment: Speci men Type: BLOOD SPECIMENOrdering Facility: [facility] Address: [address] [place] [address] Result Comment: Lilly mated Glomerular Filtration Rate (eGFR) is calculated using the 2020 CKD-EPI creatinine equation. This equation utilizes serum creatinine, sex, and age as parameters. The creatinine assay has traceable calibration to isotope dilution-mass spectrometry. Refer to KDIGO guidelines for clinical interpretation. In patients with unstable renal function, e.g. those with acute kidney injury, the eGFR may not accurately reflect actual GFR. Performed By: #### 2 4323-8 ####[facility] SPRINGSWNCLIDarrick [id number] [place] [address] [place] Glucose [Mass/Vol] 150 mg/dL High 74-99 [facility] Comment on above: Order Comment: Gilma ojeda Type: BLOOD SPECIMENOrdering Facility: [facility] Address: [address] [place] [address] Result Comment: The [place] Diabetes Association (ADA) provides guidance for cutoff values for fasting glucose and random glucose. The ADA defines fasting as no caloric intake for at least 8 hours. Fasting plasma glucose results between 100 to 125 mg/dL indicate increased risk for diabetes (prediabetes).Fasting plasma glucose results greater than or equal to 126 mg/dL meet the criteria for diagnosis of diabetes. In the absence of unequivocal hyperglycemia, results should be confirmed by repeat testing. In a patient with classic symptoms of hyperglycemia or hyperglycemic crisis, random plasma glucose results greater than or equal to 200 mg/dL meet the criteria for diagnosis of diabetes.Reference: Standards of Medical Care in Diabetes 2016, [place] [employer]. Diabetes Care. 2016.39(Suppl 1). Performed By: #### 2 4323-8 ####[facility] SPRINGSNCA [id number] [place] [address] [place] Potassium [Moles/Vol] 4.1 mmol/L Normal 3.7-5.1 [facility] Comment on above: Order Comment: Gilma ojeda Type: BLOOD SPECIMENOrdering Facility: [facility] Address: [address] [place] [address] Performed By: #### 2 4323-8 ####[facility] SPRINGSNCLIA [id number] [place] [address] [place] Protein [Mass/Vol] 6.7 g/dL Normal 6.3-8.0 [facility] Comment on above: Order Comment: Speci men Type: BLOOD SPECIMENOrdering Facility: [facility] Address: [facility] [place] [address] Performed By: #### 2 4323-8 ####[facility] SPRINGSWGALIA [id number] [place] [address] [place] Sodium [Moles/Vol] 135 mmol/L Low 136-144 [facility] Comment on above: Order Comment: Speci men Type: BLOOD SPECIMENOrdering Facility: [facility] Address: [address] [place] [address] Performed By: #### 2 4323-8 ####[facility] [id number] [place] [address] [place] Urea nitrogen [Mass/Vol] 13 mg/dL Normal 9-24 [facility] Comment on above: Order Comment: Speci men Type: BLOOD SPECIMENOrdering Facility: [facility] Address: [address] [place] [address] Performed By: #### 2 4323-8 ####[facility] [id number] [address] STATES OF [facility] Type AND Screenon 09-30-2024 Ab SCREEN GEL PENDING Normal [facility] Comment on above: Order Comment: PRETR ANSFUSION HGB = 7.7 HCT = 22.4 PERFORMED AT [facility] N 08/26/2025 @ 0800 N Y A Performed By: #### B MARGO VELA #### [facility] [address] [place], [address] ABO and Rh group Nom (Bld) Blood group B Rh(D) positive Normal [facility] Comment on above: Order Comment: PRETR ANSFUSION HGB = 7.7 HCT = 22.4 PERFORMED AT [facility] N 08/26/2025 @ 0800 N Y A Performed By: #### B ARNIE VELAS #### [facility] [address] [place], [address] CNPNon 09-27-2024 CNPN Normal [facility] BRCon 09-23-2024 RC Normal Neg [facility] Comment on above: Result Comment: [id number] BP RC TRANSFUSED 09/24/24 0850 Performed By: #### B ARNIE VELAS #### [facility] [address] [place], [address] CBC W Auto Differential pane l (Bld)on 09-23-2024 Anisocytosis Ql (Bld) Present Normal [facility] Comment on above: Order Comment: Speci men Type: BLOOD SPECIMENOrdering Facility: [facility] Address: [address] [place] [address] Performed By: #### 5 7021-8 ####[facility] MILLTOWNCLIA [id number] [address] LABORATORYCLIA [id number] [place] [address] [place] Basophils (Bld) [#/Vol] 0.00 10*3/uL Normal <0.11 [facility] Comment on above: Order Comment: Speci men Type: BLOOD SPECIMENOrdering Facility: [facility] Address: [address] [place] [address] Performed By: #### 5 7021-8 ####[facility] MILLTOWNCLIA [id number] [address] LABORATORYCLIA [id number] [place] [address] [place] Basophils/100 WBC (Bld) 0.0 % Normal [facility] Comment on above: Order Comment: Speci men Type: BLOOD SPECIMENOrdering Facility: [facility] Address: [address] [place] [address] Performed By: #### 5 7021-8 ####[facility] MILLTOWNCLIA [id number] [address] LABORATORYCLIA [id number] [place] [address] [place] Dacrocytes LM Ql (Bld) Few Normal Cl [facility] Comment on above: Order Comment: Speci men Type: BLOOD SPECIMENOrdering Facility: [facility] Address: [address] [place] [address] Performed By: #### 5 7021-8 ####[facility] SPRINGSWNCLIA [id number] [address] LABORATORYIA [id number] [place] [address] [place] Differential cell count method Nom (Bld) Manual Normal [facility] Comment on above: Order Comment: Speci men Type: BLOOD SPECIMENOrdering Facility: [facility] Address: [address] [place] [address] Performed By: #### 5 7021-8 ####[facility] SPRINGSWNCLIA [id number] [address] LABORATORYIA [id number] [place] [address] [place] Eosinophils (Bld) [#/Vol] 0.04 10*3/uL Normal <0.46 [facility] Comment on above: Order Comment: Speci men Type: BLOOD SPECIMENOrdering Facility: [facility] Address: [address] [place] [address] Performed By: #### 5 7021-8 ####[facility] SPR[facility]SWNCLIA [id number] [address] LABORATORYIA [id number] [place] [address] [place] Eosinophils/100 WBC (Bld) 2.0 % Normal [facility] Comment on above: Order Comment: Speci men Type: BLOOD SPECIMENOrdering Facility: [facility] Address: [address] [place] [address] Performed By: #### 5 7021-8 ####[facility] SPRINGSWGALIA [id number] [address] LABORATORYCLIA [id number] [place] [address] [place] Erythrocyte distribution width (RBC) [Ratio] 18.9 % High 11.5-15.0 [facility] Comment on above: Order Comment: Speci men Type: BLOOD SPECIMENOrdering Facility: [facility] Address: [address] [place] [address] Performed By: #### 5 7021-8 ####[facility] [id number] [address] LABORATORYCLIA [id number] [place] [address] [place] Giant platelets LM Ql (Bld) Present Normal [facility] Comment on above: Order Comment: Speci men Type: BLOOD SPECIMENOrdering Facility: [facility] Address: [address] [place] [address] Performed By: #### 5 7021-8 ####[facility] [id number] [address] LABORATORYCLIA [id number] [place] [address] [place] Hematocrit (Bld) [Volume fraction] 23.6 % Low 39.0-51.0 [facility] Comment on above: Order Comment: Speci men Type: BLOOD SPECIMENOrdering Facility: [facility] Address: [address] [place] [address] Performed By: #### 5 7021-8 ####[facility] MILLTOWNCLIA [id number] [address] LABORATORYCLIA [id number] [place] [address] [place] Hemoglobin (Bld) [Mass/Vol] 7.8 g/dL Low 13.0-17.0 [facility] Comment on above: Order Comment: Speci men Type: BLOOD SPECIMENOrdering Facility: [facility] Address: [address] [place] [address] Performed By: #### 5 7021-8 ####[facility] MILLWNCLIA [id number] [address] LABORATORYCLIA [id number] [place] [address] [place] Lymphocytes (Bld) [#/Vol] 0.48 10*3/uL Low 1.00-4.00 [facility] Comment on above: Order Comment: Speci men Type: BLOOD SPECIMENOrdering Facility: [facility] Address: [address] [place] [address] Performed By: #### 5 7021-8 ####[facility] MILLTOWNCLIA [id number] [address] LABORATORYCLIA [id number] [place] [address] [place] Lymphocytes/100 WBC (Bld) 27.0 % Normal [facility] Comment on above: Order Comment: Speci men Type: BLOOD SPECIMENOrdering Facility: [facility] Address: [address] [place] [address] Performed By: #### 5 7021-8 ####[facility] MILLTOWNCLIA [id number] [address] LABORATORYCLIA [id number] [address] MCH (RBC) [Entitic mass] 31.3 pg Normal 26.0-34.0 [facility] Comment on above: Order Comment: Speci men Type: BLOOD SPECIMENOrdering Facility: [facility] Address: [address] [place] [address] Performed By: #### 5 7021-8 ####[facility] [id number] [address] LABORATORYCLIA [id number] [place] [address] [place] MCHC (RBC) [Mass/Vol] 33.1 g/dL Normal 30.5-36.0 [facility] Comment on above: Order Comment: Speci men Type: BLOOD SPECIMENOrdering Facility: [facility] Address: [address] [place] [address] Performed By: #### 5 7021-8 ####[facility] [id number] [address] LABORATORYCLIA [id number] [address] [facility] MCV (RBC) [Entitic vol] 94.8 fL Normal 80.0-100.0 [facility] Comment on above: Order Comment: Speci men Type: BLOOD SPECIMENOrdering Facility: [facility] Address: [address] [place] [address] Performed By: #### 5 7021-8 ####[facility] [id number] [address] LABORATORYCLIA [id number] [address] OF [facility] Monocytes (Bld) [#/Vol] 0.07 10*3/uL Normal <0.87 [facility] Comment on above: Order Comment: Speci men Type: BLOOD SPECIMENOrdering Facility: [facility] Address: [address] [place] [address] Performed By: #### 5 7021-8 ####[facility] MILLTOWNCLIA [id number] [address] LABORATORYCLIA [id number] [place] [address] [place] Monocytes/100 WBC (Bld) 4.0 % Normal [facility] Comment on above: Order Comment: Speci men Type: BLOOD SPECIMENOrdering Facility: [facility] Address: [address] [place] [address] Performed By: #### 5 7021-8 ####[facility] MILLTOWNCLIA [id number] [address] LABORATORYCLIA [id number] [place] [address] [place] Neutrophils (Bld) [#/Vol] 1.19 10*3/uL Low 1.45-7.50 [facility] Comment on above: Order Comment: Speci men Type: BLOOD SPECIMENOrdering Facility: [facility] Address: [address] [place] [address] Performed By: #### 5 7021-8 ####[facility] MILLTOWNCLIA [id number] [address] LABORATORYCLIA [id number] [place] [address] [place] Neutrophils/100 WBC (Bld) 67.0 % Normal [facility] Comment on above: Order Comment: Speci men Type: BLOOD SPECIMENOrdering Facility: [facility] Address: [address] [place] [address] Performed By: #### 5 7021-8 ####[facility] MILLTOWNCLIA [id number] [address] LABORATORYCLIA [id number] [place] [address] [place] Nucleated RBC (Bld) [#/Vol] 10*3/uL Normal <0.01 [facility] Comment on above: Order Comment: Speci men Type: BLOOD SPECIMENOrdering Facility: [facility] Address: [address] [place] [address] Performed By: #### 5 7021-8 ####[facility] MILLTOWNCLIA [id number] [address] LABORATORYCLIA [id number] [place] [address] [place] Nucleated RBC/100 WBC (Bld) [Ratio] 0.0 /100 WBC Normal [facility] Comment on above: Order Comment: Speci men Type: BLOOD SPECIMENOrdering Facility: [facility] Address: [address] [place] [address] Performed By: #### 5 7021-8 ####[facility]SWGAL[facility] [id number] [address] LABORATORYCLIA [id number] [place] [address] [place] Ovalocytes LM Ql (Bld) Few Normal Cl [facility] Comment on above: Order Comment: Speci men Type: BLOOD SPECIMENOrdering Facility: [facility] Address: [address] [place] [address] Performed By: #### 5 7021-8 ####[facility]SWNCLIA [id number] [address] LABORATORYCLIA [id number] [place] [address] [place] Platelet mean volume (Bld) [Entitic vol] 11.1 fL Normal 9.0-12.7 [facility] Comment on above: Order Comment: Speci men Type: BLOOD SPECIMENOrdering Facility: [facility] Address: [address] [place] [address] Performed By: #### 5 7021-8 ####[facility] PENAROCKYLIA [id number] [address] LABORATORYCLIA [id number] [place] [address] [place] Platelets (Bld) [#/Vol] 99 10*3/uL Low 150-400 C [facility] Comment on above: Order Comment: Speci men Type: BLOOD SPECIMENOrdering Facility: [facility] Address: [address] [place] [address] Result Comment: No c lot detected. Performed By: #### 5 7021-8 ####[facility] BECKYROCKYLIA [id number] [address] LABORATORYCLIA [id number] [place] [address] [place] Platelets Estimate (Bld) [#/Vol] Decreased Normal [facility] Comment on above: Order Comment: Speci men Type: BLOOD SPECIMENOrdering Facility: [facility] Address: [address] [place] [address] Performed By: #### 5 7021-8 ####[facility] BECKYROCKYLIA [id number] [address] LABORATORYCLIA [id number] [place] [address] [place] RBC (Bld) [#/Vol] 2.49 10*6/uL Low 4.20-6.00 [facility] Comment on above: Order Comment: Speci men Type: BLOOD SPECIMENOrdering Facility: [facility] Address: [address] [place] [address] Performed By: #### 5 7021-8 ####[facility] [id number] [address] LABORATORYCLIA [id number] [place] [address] [place] RED CELL MORPH Reviewed: see result s of individual morphologies Normal [facility] Comment on above: Order Comment: Speci men Type: BLOOD SPECIMENOrdering Facility: [facility] Address: [address] [place] [address] Performed By: #### 5 7021-8 ####[facility]IT[facility] [id number] [address] LABORATORYCLIA [id number] [place] [address] [place] WBC (Bld) [#/Vol] 1.78 10*3/uL Low 3.70-11.00 [facility] Comment on above: Order Comment: Speci men Type: BLOOD SPECIMENOrdering Facility: [facility] Address: [address] [place] [address] Result Comment: No c lot detected. Performed By: #### 5 7021-8 ####[facility] [id number] [address] LABORATORYIA [id number] [place] [address] [place] CNPNon 09-23-2024 CNPN Normal [facility] Comprehensive metabolic 2000 panelon 09-23-2024 Albumin [Mass/Vol] 4.7 g/dL Normal 3.9-4.9 [facility] Comment on above: Order Comment: Speci men Type: BLOOD SPECIMENOrdering Facility: [facility] Address: [address] [place] [address] Performed By: #### 2 4323-8 ####[facility] SPRINGSWNCLIA [id number] [place] [address] [place] ALP [Catalytic activity/Vol] 91 U/L Normal 38-113 [facility] Comment on above: Order Comment: Speci men Type: BLOOD SPECIMENOrdering Facility: [facility] Address: [address] [place] [address] Performed By: #### 2 4323-8 ####[facility] [id number] [place] [address] [place] ALT [Catalytic activity/Vol] 83 U/L High 10-54 [facility] Comment on above: Order Comment: Speci men Type: BLOOD SPECIMENOrdering Facility: [facility] Address: [address] [place] [address] Performed By: #### 2 4323-8 ####[facility] [id number] [place] [address] [place] Anion gap [Moles/Vol] 10 mmol/L Normal 8-15 [facility] Comment on above: Order Comment: Speci men Type: BLOOD SPECIMENOrdering Facility: [facility] Address: [address] [place] [address] Performed By: #### 2 4323-8 ####[facility] [id number] [place] [address] [place] AST [Catalytic activity/Vol] 52 U/L High 14-40 [facility] Comment on above: Order Comment: Speci men Type: BLOOD SPECIMENOrdering Facility: [facility] Address: [address] [place] [address] Performed By: #### 2 4323-8 ####[facility] [id number] [place] [address] [place] Bilirubin [Mass/Vol] 1.1 mg/dL Normal 0.2-1.3 [facility] Comment on above: Order Comment: Speci men Type: BLOOD SPECIMENOrdering Facility: [facility] Address: [address] [place] [address] Performed By: #### 2 4323-8 ####[facility] MILLTOWNCLIA [id number] [place] [address] [place] Calcium [Mass/Vol] 10.3 mg/dL High 8.5-10.2 [facility] Comment on above: Order Comment: Speci men Type: BLOOD SPECIMENOrdering Facility: [facility] Address: [address] [place] [address] Performed By: #### 2 4323-8 ####[facility] MILLTOWNCLIA [id number] [place] [address] [place] Chloride [Moles/Vol] 101 mmol/L Normal 98-107 [facility] Comment on above: Order Comment: Speci men Type: BLOOD SPECIMENOrdering Facility: [facility] Address: [address] [place] [address] Performed By: #### 2 4323-8 ####[facility] SPRINGSWNCLIA [id number] [place] [address] [place] CO2 [Moles/Vol] 26 mmol/L Normal 22-30 [facility] Comment on above: Order Comment: Speci men Type: BLOOD SPECIMENOrdering Facility: [facility] Address: [address] [place] [address] Performed By: #### 2 4323-8 ####[facility] MILLTOWNCLIA [id number] [place] [address] [place] Creatinine [Mass/Vol] 0.77 mg/dL Normal 0.73-1.22 [facility] Comment on above: Order Comment: Speci men Type: BLOOD SPECIMENOrdering Facility: [facility] Address: [address] [place] [address] Performed By: #### 2 4323-8 ####[facility] MILLTOWNCLIA [id number] [place] [address] [place] Creatinine and Glomerular filtration rate.predicted panel (S/P/Bld) 91 mL/min/1.73m??? Normal >=60 [facility] Comment on above: Order Comment: Gilma ojeda Type: BLOOD SPECIMENOrdering Facility: [facility] Address: [address] [place] [address] Result Comment: Lilly mated Glomerular Filtration Rate (eGFR) is calculated using the 2020 CKD-EPI creatinine equation. This equation utilizes serum creatinine, sex, and age as parameters. The creatinine assay has traceable calibration to isotope dilution-mass spectrometry. Refer to KDIGO guidelines for clinical interpretation. In patients with unstable renal function, e.g. those with acute kidney injury, the eGFR may not accurately reflect actual GFR. Performed By: #### 2 4323-8 ####[facility] [id number] [place] [address] [place] Glucose [Mass/Vol] 133 mg/dL High 74-99 [facility] Comment on above: Order Comment: Gilma ojeda Type: BLOOD SPECIMENOrdering Facility: [facility] Address: [address] [place] [address] Result Comment: The [place] Diabetes Association (ADA) provides guidance for cutoff values for fasting glucose and random glucose. The ADA defines fasting as no caloric intake for at least 8 hours. Fasting plasma glucose results between 100 to 125 mg/dL indicate increased risk for diabetes (prediabetes).Fasting plasma glucose results greater than or equal to 126 mg/dL meet the criteria for diagnosis of diabetes. In the absence of unequivocal hyperglycemia, results should be confirmed by repeat testing. In a patient with classic symptoms of hyperglycemia or hyperglycemic crisis, random plasma glucose results greater than or equal to 200 mg/dL meet the criteria for diagnosis of diabetes.Reference: Standards of Medical Care in Diabetes 2016, [place] [employer] Association. Diabetes Care. 2016.39(Suppl 1). Performed By: #### 2 4323-8 ####[facility] [id number] [place] [address] [place] Potassium [Moles/Vol] 4.2 mmol/L Normal 3.7-5.1 [facility] Comment on above: Order Comment: Speci men Type: BLOOD SPECIMENOrdering Facility: [facility] Address: [address] [place] [address] Performed By: #### 2 4323-8 ####[facility] SPR[facility]SWNCLI [id number] [place] [address] [place] Protein [Mass/Vol] 7.0 g/dL Normal 6.3-8.0 [facility] Comment on above: Order Comment: Speci men Type: BLOOD SPECIMENOrdering Facility: [facility] Address: [address] [place] [address] Performed By: #### 2 4323-8 ####[facility] [id number] [place] [address] [place] Sodium [Moles/Vol] 137 mmol/L Normal 136-144 [facility] Comment on above: Order Comment: Speci men Type: BLOOD SPECIMENOrdering Facility: [facility] Address: [address] [place] [address] Performed By: #### 2 4323-8 ####[facility] SPRINGSNCLIA [id number] [place] [address] [place] Urea nitrogen [Mass/Vol] 12 mg/dL Normal 9-24 [facility] Comment on above: Order Comment: Speci men Type: BLOOD SPECIMENOrdering Facility: [facility] Address: [address] [place] [address] Performed By: #### 2 4323-8 ####[facility] SPRINGSNCLIA [id number] [place] [address] [place] T3Free SerPl-mCncon 09-23-20 24 Free T3 [Mass/Vol] 2.9 pg/mL Normal 2.3-4.1 [facility] Comment on above: Order Comment: Speci men Type: BLOOD SPECIMENOrdering Facility: [facility] Address: [address] [place] [address] Performed By: #### 3 024-7, 305-0, 3016-3 ####[facility] LABCLIA [id number] [place] [address] [place] T4 Free SerPl-mCncon 024 Free T4 [Mass/Vol] 1.1 ng/dL Normal 0.9-1.7 [facility] Comment on above: Order Comment: Speci men Type: BLOOD SPECIMENOrdering Facility: [facility] Address: [address] [place] [address] Performed By: #### 3 024-7, 0, 3 ####[facility] LABIA [id number] [place] [address] [place] TSH SerPl-aCncon 09-23-2024 TSH Qn 4.230 m[IU]/L High 0.270-4.200 [facility] Comment on above: Order Comment: Speci men Type: BLOOD SPECIMENOrdering Facility: [facility] Address: [address] [place] [address] Performed By: #### 3 024-7, 0, 3015-3 ####[facility] [id number] [address] [place] Type AND Screenon 09-23-2024 Ab SCREEN GEL Negative Normal [facility] Comment on above: Order Comment: PRETR ANSFUSION HGB =7.8 HCT = PERFORMED AT CCFWN11/15NYANEMIA Performed By: #### B MIRIAN BTS #### [facility] [address] [address] [place], [address] ABO and Rh group Nom (Bld) Blood group B Rh(D) positive Normal [facility] Comment on above: Order Comment: PRETR ANSFUSION HGB =7.8 HCT = PERFORMED AT CCFWN11/15NYANEMIA Performed By: #### B RC, BTS #### [facility] [address] [place], [place], [id number] CBC W Auto Differential pane l (Bld)on 09-16-2024 Anisocytosis Ql (Bld) Present Normal [facility] Comment on above: Order Comment: Speci men Type: BLOOD SPECIMENOrdering Facility: [facility] Address: [address] [place] [address] Performed By: #### 5 7021-8 ####[facility] MILLWNCLIA [id number] [address] LABORATORYCLIA [id number] [place] [address] [place] [facility] Basophils (Bld) [#/Vol] 0.00 10*3/uL Normal <0.11 [facility] Comment on above: Order Comment: Speci men Type: BLOOD SPECIMENOrdering Facility: [facility] Address: [address] [place] [address] Performed By: #### 5 7021-8 ####[facility] [id number] [address] LABORATORYCLIA [id number] [address] [place] Basophils/100 WBC (Bld) 0.0 % Normal [facility] Comment on above: Order Comment: Speci men Type: BLOOD SPECIMENOrdering Facility: [facility] Address: [address] [place] [id number] Performed By: #### 5 7021-8 ####[facility] SPRINGSWNCLIA [id number] [address] LABORATORYCLIA [id number] [place] [address] [place] Dacrocytes LM Ql (Bld) Few Normal [facility] Comment on above: Order Comment: Speci men Type: BLOOD SPECIMENOrdering Facility: [facility] Address: [address] [place] [address] Performed By: #### 5 7021-8 ####[facility] SHERRITOWNCLIA [id number] [address] LABORATORYCLIA [id number] [place] [address] [place] Differential cell count method Nom (Bld) Manual Normal [facility] Comment on above: Order Comment: Speci men Type: BLOOD SPECIMENOrdering Facility: [facility] Address: [address] [place] [address] Performed By: #### 5 7021-8 ####[facility] SPRINGSNCLIA [id number] [address] LABORATORYCLIA [id number] [place] [address] [place] Eosinophils (Bld) [#/Vol] 0.00 10*3/uL Normal <0.46 [facility] Comment on above: Order Comment: Speci men Type: BLOOD SPECIMENOrdering Facility: [facility] Address: [address] [place] [address] Performed By: #### 5 7021-8 ####[facility] SPRINGSNCLIA [id number] [address] LABORATORYCLIA [id number] [place] [address] [place] Eosinophils/100 WBC (Bld) 0.0 % Normal [facility] Comment on above: Order Comment: Speci men Type: BLOOD SPECIMENOrdering Facility: [facility] Address: [address] [place] [address] Performed By: #### 5 7021-8 ####[facility] MILLWNCLIA [id number] [address] LABORATORYCLIA [id number] [place] [address] [place] Erythrocyte distribution width (RBC) [Ratio] 18.4 % High 11.5-15.0 [facility] Comment on above: Order Comment: Speci men Type: BLOOD SPECIMENOrdering Facility: [facility] Address: [address] [place] [address] Performed By: #### 5 7021-8 ####[facility] SPRINGSWGALIA [id number] [address] LABORATORYIA [id number] [place] [address] [place] Giant platelets LM Ql (Bld) Present Normal [facility] Comment on above: Order Comment: Speci men Type: BLOOD SPECIMENOrdering Facility: [facility] Address: [address] [place] [address] Performed By: #### 5 7021-8 ####[facility] SPRINGSWGALIA [id number] [address] LABORATORYIA [id number] [place] [address] [place] Hematocrit (Bld) [Volume fraction] 25.6 % Low 39.0-51.0 [facility] Comment on above: Order Comment: Speci men Type: BLOOD SPECIMENOrdering Facility: [facility] Address: [address] [place] [address] Performed By: #### 5 7021-8 ####[facility] [id number] [address] LABORATORYIA [id number] [place] [address] [place] Hemoglobin (Bld) [Mass/Vol] 8.5 g/dL Low 13.0-17.0 [facility] Comment on above: Order Comment: Speci men Type: BLOOD SPECIMENOrdering Facility: [facility] Address: [address] [place] [address] Performed By: #### 5 7021-8 ####[facility] JAMESWNCLIA [id number] [address] LABORATORYCLIA [id number] [place] [address] [place] Lymphocytes (Bld) [#/Vol] 0.62 10*3/uL Low 1.00-4.00 [facility] Comment on above: Order Comment: Speci men Type: BLOOD SPECIMENOrdering Facility: [facility] Address: [address] [place] [address] Performed By: #### 5 7021-8 ####[facility] [id number] [address] LABORATORYCLIA [id number] [address] [place] Lymphocytes/100 WBC (Bld) 38.0 % Normal [facility] Comment on above: Order Comment: Speci men Type: BLOOD SPECIMENOrdering Facility: [facility] Address: [address] [place] [address] Performed By: #### 5 7021-8 ####[facility] [id number] [address] LABORATORYCLIA [id number] [place] [address] [place] MCH (RBC) [Entitic mass] 31.0 pg Normal 26.0-34.0 [facility] Comment on above: Order Comment: Speci men Type: BLOOD SPECIMENOrdering Facility: [facility] Address: [address] [place] [address] Performed By: #### 5 7021-8 ####[facility] SPRINGSWNCLIA [id number] [address] LABORATORYCLIA [id number] [address] STATES OF [facility] MCHC (RBC) [Mass/Vol] 33.2 g/dL Normal 30.5-36.0 [facility] Comment on above: Order Comment: Speci men Type: BLOOD SPECIMENOrdering Facility: [facility] Address: [address] [place] [address] Performed By: #### 5 7021-8 ####[facility] SPRINGSWNCLIA [id number] [address] LABORATORYCLIA [id number] [address] MCV (RBC) [Entitic vol] 93.4 fL Normal 80.0-100.0 [facility] Comment on above: Order Comment: Speci men Type: BLOOD SPECIMENOrdering Facility: [facility] Address: [address] [place] [address] Performed By: #### 5 7021-8 ####[facility] SPRINGSWNCLIA [id number] [address] LABORATORYCLIA [id number] [place] [address] [place] Monocytes (Bld) [#/Vol] 0.07 10*3/uL Normal <0.87 [facility] Comment on above: Order Comment: Speci men Type: BLOOD SPECIMENOrdering Facility: [facility] Address: [address] [place], [place] [address] Performed By: #### 5 7021-8 ####[facility] MILLTOWNCLIA [id number] [address] LABORATORYCLIA [id number] [place] [address] [place] Monocytes/100 WBC (Bld) 4.0 % Normal [facility] Comment on above: Order Comment: Speci men Type: BLOOD SPECIMENOrdering Facility: [facility] Address: [address] [place] [address] Performed By: #### 5 7021-8 ####[facility] MILLTOWNCLIA [id number] [address] LABORATORYCLIA [id number] [place] [address] [place] Neutrophils (Bld) [#/Vol] 0.95 10*3/uL Low 1.45-7.50 [facility] Comment on above: Order Comment: Speci men Type: BLOOD SPECIMENOrdering Facility: [facility] Address: [address] [place] [address] Performed By: #### 5 7021-8 ####[facility] SPRINGSWNCLIA [id number] [address] LABORATORYCLIA [id number] [place] [address] [place] Neutrophils/100 WBC (Bld) 58.0 % Normal [facility] Comment on above: Order Comment: Speci men Type: BLOOD SPECIMENOrdering Facility: [facility] Address: [address] [place] [address] Performed By: #### 5 7021-8 ####[facility] SPRINGSWNCLIA [id number] [address] LABORATORYCLIA [id number] [place] [address] [place] Nucleated RBC (Bld) [#/Vol] 10*3/uL Normal <0.01 [facility] Comment on above: Order Comment: Speci men Type: BLOOD SPECIMENOrdering Facility: [facility] Address: [address] [place] [address] Performed By: #### 5 7021-8 ####[facility] MILLTOWNCLIA [id number] [address] LABORATORYCLIA [id number] [place] [address] [place] Nucleated RBC/100 WBC (Bld) [Ratio] 0.0 /100 WBC Normal [facility] Comment on above: Order Comment: Speci men Type: BLOOD SPECIMENOrdering Facility: [facility] Address: [address] [place] [address] Performed By: #### 5 7021-8 ####[facility] SPRINGSWROCKYLIA [id number] [address] LABORATORYIA [id number] [place] [address] [place] Ovalocytes LM Ql (Bld) Few Normal [facility] Comment on above: Order Comment: Speci men Type: BLOOD SPECIMENOrdering Facility: [facility] Address: [address] [place] [address] Performed By: #### 5 7021-8 ####[facility] SPRINGSWNCLIA [id number] [address] LABORATORYCLIA [id number] [place] [address] [place] Platelet mean volume (Bld) [Entitic vol] 10.5 fL Normal 9.0-12.7 [facility] Comment on above: Order Comment: Speci men Type: BLOOD SPECIMENOrdering Facility: [facility] Address: [address] [facility] [place] [id number] Performed By: #### 5 7021-8 ####[facility] MILLWNCLIA [id number] [address] LABORATORYCLIA [id number] [place] [address] [place] Platelets (Bld) [#/Vol] 85 10*3/uL Low 150-400 [facility] Comment on above: Order Comment: Speci men Type: BLOOD SPECIMENOrdering Facility: [facility] Address: [address] [place] [address] Result Comment: No c lot detected. Performed By: #### 5 7021-8 ####[facility]IA [id number] [address] LABORATORYCLIA [id number] [place] [address] [place] Platelets Estimate (Bld) [#/Vol] Decreased Normal [facility] Comment on above: Order Comment: Speci men Type: BLOOD SPECIMENOrdering Facility: [facility] Address: [address] [place] [address] Performed By: #### 5 7021-8 ####[facility] [id number] [address] LABORATORYCLIA [id number] [place] [address] [place] RBC (Bld) [#/Vol] 2.74 10*6/uL Low 4.20-6.00 [facility] Comment on above: Order Comment: Speci men Type: BLOOD SPECIMENOrdering Facility: [facility] Address: [address] [place] [address] Performed By: #### 5 7021-8 ####[facility] [id number] [address] LABORATORYCLIA [id number] [address] STATES OF [facility] RBC FRAGMENTS Few Abnormal None Seen [facility] Comment on above: Order Comment: Speci men Type: BLOOD SPECIMENOrdering Facility: [facility] Address: [address] [place] [address] Performed By: #### 5 7021-8 ####[facility] BECKYNCLIA [id number] [address] LABORATORYCLIA [id number] [place] [address] [place] [facility] RED CELL MORPH Reviewed: see result s of individual morphologies Normal [facility] Comment on above: Order Comment: Speci men Type: BLOOD SPECIMENOrdering Facility: [facility] Address: [address] [place] [address] Performed By: #### 5 7021-8 ####[facility] SPRINGSNCLIA [id number] [address] LABORATORYCLIA [id number] [place] [address] [place] WBC (Bld) [#/Vol] 1.63 10*3/uL Low 3.70-11.00 [facility] Comment on above: Order Comment: Speci men Type: BLOOD SPECIMENOrdering Facility: [facility] Address: [address] [place] [address] Performed By: #### 5 7021-8 ####[facility] SPRINGSNCLIA [id number] [address] LABORATORYCLIA [id number] [place] [address] [place] Comprehensive metabolic 2000 panelon 09-16-2024 Albumin [Mass/Vol] 4.5 g/dL Normal 3.9-4.9 [facility] Comment on above: Order Comment: Speci men Type: BLOOD SPECIMENOrdering Facility: [facility] Address: [address] [place] [address] Performed By: #### 2 4323-8 ####[facility] MILLWNCLIA [id number] [place] [address] [place] ALP [Catalytic activity/Vol] 83 U/L Normal 38-113 [facility] Comment on above: Order Comment: Speci men Type: BLOOD SPECIMENOrdering Facility: [facility] Address: [address] [place] [address] Performed By: #### 2 4323-8 ####[facility]INGSNCLIA [id number] [place] [address] [place] ALT [Catalytic activity/Vol] 97 U/L High 10-54 [facility] Comment on above: Order Comment: Speci men Type: BLOOD SPECIMENOrdering Facility: [facility] Address: [address] [place] [address] Performed By: #### 2 4323-8 ####[facility] SPRINGSNCLIA [id number] [place] [address] [place] Anion gap [Moles/Vol] 10 mmol/L Normal 8-15 [facility] Comment on above: Order Comment: Speci men Type: BLOOD SPECIMENOrdering Facility: [facility] Address: [address] [place] [address] Performed By: #### 2 4323-8 ####[facility]INGSNCLIA [id number] [place] [address] [place] AST [Catalytic activity/Vol] 58 U/L High 14-40 [facility] Comment on above: Order Comment: Speci men Type: BLOOD SPECIMENOrdering Facility: [facility] Address: [address] [place] [address] Performed By: #### 2 4323-8 ####[facility] SPRINGSNCLIA [id number] [place] [address] [place] Bilirubin [Mass/Vol] 1.3 mg/dL Normal 0.2-1.3 [facility] Comment on above: Order Comment: Speci men Type: BLOOD SPECIMENOrdering Facility: [facility] Address: [address] [place], [place] [address] Performed By: #### 2 4323-8 ####[facility] JAMESWNCLIA [id number] [place] [address] [place] Calcium [Mass/Vol] 9.8 mg/dL Normal 8.5-10.2 [facility] Comment on above: Order Comment: Speci men Type: BLOOD SPECIMENOrdering Facility: [facility] Address: [address] [place] [address] Performed By: #### 2 4323-8 ####[facility] SPRINGSWROCKYLIA [id number] [place] [address] [place] Chloride [Moles/Vol] 102 mmol/L Normal 98-107 [facility] Comment on above: Order Comment: Speci men Type: BLOOD SPECIMENOrdering Facility: [facility] Address: [address] [place] [address] Performed By: #### 2 4323-8 ####[facility] SPRINGSWROCKYLIA [id number] [place] [address] [place] CO2 [Moles/Vol] 24 mmol/L Normal 22-30 [facility] Comment on above: Order Comment: Speci men Type: BLOOD SPECIMENOrdering Facility: [facility] Address: [address] [place] [address] Performed By: #### 2 4323-8 ####[facility]ALSAMWNCLIA [id number] [place] [address] [place] Creatinine [Mass/Vol] 0.77 mg/dL Normal 0.73-1.22 [facility] Comment on above: Order Comment: Speci men Type: BLOOD SPECIMENOrdering Facility: [facility] Address: [address] [place] [address] Performed By: #### 2 4323-8 ####[facility] SPRINGSNCLIA [id number] [place] [address] [place] Creatinine and Glomerular filtration rate.predicted panel (S/P/Bld) 91 mL/min/1.73m??? Normal >=60 [facility] Comment on above: Order Comment: Gilma ojeda Type: BLOOD SPECIMENOrdering Facility: [facility] Address: [address] [place] [address] Result Comment: Lilly mated Glomerular Filtration Rate (eGFR) is calculated using the 2020 CKD-EPI creatinine equation. This equation utilizes serum creatinine, sex, and age as parameters. The creatinine assay has traceable calibration to isotope dilution-mass spectrometry. Refer to KDIGO guidelines for clinical interpretation. In patients with unstable renal function, e.g. those with acute kidney injury, the eGFR may not accurately reflect actual GFR. Performed By: #### 2 4323-8 ####[facility] [id number] [place] [address] [place] Glucose [Mass/Vol] 156 mg/dL High 74-99 [facility] Comment on above: Order Comment: Gilma ojeda Type: BLOOD SPECIMENOrdering Facility: [facility] Address: [address] [place] [address] Result Comment: The [place] Diabetes Association (ADA) provides guidance for cutoff values for fasting glucose and random glucose. The ADA defines fasting as no caloric intake for at least 8 hours. Fasting plasma glucose results between 100 to 125 mg/dL indicate increased risk for diabetes (prediabetes).Fasting plasma glucose results greater than or equal to 126 mg/dL meet the criteria for diagnosis of diabetes. In the absence of unequivocal hyperglycemia, results should be confirmed by repeat testing. In a patient with classic symptoms of hyperglycemia or hyperglycemic crisis, random plasma glucose results greater than or equal to 200 mg/dL meet the criteria for diagnosis of diabetes.Reference: Standards of Medical Care in Diabetes 2016, [place] [employer] Association. Diabetes Care. 2016.39(Suppl 1). Performed By: #### 2 4323-8 ####[facility] SPRINGSNCLI [id number] [place] [address] [place] Potassium [Moles/Vol] 4.0 mmol/L Normal 3.7-5.1 [facility] Comment on above: Order Comment: Speci men Type: BLOOD SPECIMENOrdering Facility: [facility] Address: [address] [place] [address] Performed By: #### 2 4323-8 ####[facility] MILLWILLYA [id number] [place] [address] [place] Protein [Mass/Vol] 6.7 g/dL Normal 6.3-8.0 [facility] Comment on above: Order Comment: Speci men Type: BLOOD SPECIMENOrdering Facility: [facility] Address: [address] [place] [address] Performed By: #### 2 4323-8 ####[facility] SPRINGSELLIEA [id number] [place] [address] [place] Sodium [Moles/Vol] 136 mmol/L Normal 136-144 [facility] Comment on above: Order Comment: Speci men Type: BLOOD SPECIMENOrdering Facility: [facility] Address: [address] [place] [address] Performed By: #### 2 4323-8 ####[facility] SPRINGSNCLIA [id number] [place] [address] [place] Urea nitrogen [Mass/Vol] 12 mg/dL Normal 9-24 [facility] Comment on above: Order Comment: Speci men Type: BLOOD SPECIMENOrdering Facility: [facility] Address: [address] [place] [address] Performed By: #### 2 4323-8 ####[facility] SPRINGSNCLIA [id number] [place] [address] [place] Absolute lymphocyte countOrd ered By: Jose Grimaldo on 06-19-2023 Lymphocytes Auto (Unsp spec) [#/Vol] 0.70 10*3/uL 0.83-4.51 [facility] Basophil percentageOrdered B y: Jose Grimaldo on 06-19-2023 Basophils/100 WBC (Bld) 0.3 % 0-1 [facility] Chloride [Moles/Vol] 106 mmol/L 98-107 [facility] Eosinophils/100 WBC (Bld) 0.9 % 0-5 [facility] Glucose [Mass/Vol] 110 mg/dL 74-106 [facility] Comment on above: Fasting Glucose resu lt from 100 to 125 mg/dL suggests IMPAIRED HOMEOSTASIS per A.D.A. criteria. Neutrophils (Bld) [#/Vol] 2.4 10*3/uL 2.0-7.7 [facility] Neutrophils/100 WBC (Bld) 69.0 % 47-70 [facility] Potassium [Moles/Vol] 4.5 mmol/L 3.5-5.1 [facility] Sodium [Moles/Vol] 138 mmol/L 136-145 [facility] WBC (Bld) [#/Vol] 3.5 10*3/uL 4.4-11.0 [facility] Blood lynnette cells detection b y light microscopyOrdered By: Jose Grimaldo on 06-19-2023 Lynnette cells LM Ql (Bld) 1+ [facility] Blood erythrocytes count (nu mber/volume)Ordered By: Jose Grimaldo on 06-19-2023 RBC (Bld) [#/Vol] 2.11 10*6/uL 4.6-6.2 [facility] Blood hemoglobin measurement (mass/volume)Ordered By: Jose Grimaldo on 06-19-2023 Hemoglobin (Bld) [Mass/Vol] 7.9 g/dL 13.0-16.5 [facility] Blood lymphocytes/100 leukoc ytesOrdered By: Jose Grimaldo on 06-19-2023 Lymphocytes/100 WBC (Bld) 20.1 % 19-41 [facility] Blood manual differential co mment interpretation (narrative result)Ordered By: Jose Grimaldo on 06-19-2023 Manual differential comment Javi (Bld) [Interp] SCANNED [facility] Blood monocytes/100 leukocyt esOrdered By: Jose Grimaldo on 06-19-2023 Monocytes/100 WBC (Bld) 5.7 % 0-10 [facility] Blood platelet mean volumeOr dered By: Jose Grimaldo on 06-19-2023 Platelet mean volume (Bld) [Entitic vol] 11.4 fL 6.2-12.0 [facility] Blood schistocytes detection by light microscopyOrdered By: Jose Grimaldo on 06-19-2023 Schistocytes LM Ql (Bld) RARE [facility] Determination of erythrocyte mean corpuscular volume (MCV)Ordered By: Jose Grimaldo on 06-19-2023 MCV (RBC) [Entitic vol] 113.7 fL 80-94 [facility] Hematocrit Auto (Bld) [Volum e fraction]Ordered By: Josepraveen Grimaldo on 06-19-2023 Hematocrit (Bld) [Volume fraction] 24.0 % 40-54 [facility] Hypochromatic red blood cell detectionOrdered By: Josepraveen Grimaldo on 06-19-2023 Hypochromia Ql (Bld) 1+ [facility] Laboratory - Chemistry and C hemistry - challengeOrdered By: Josepraveen Grimaldo on 06-19-2023 CO2 [Moles/Vol] 27.0 mmol/L 21.0-32.0 [facility] Urea nitrogen/Creatinine [Mass ratio] 14.7 mg/mg 10-20 [facility] Laboratory - Hematology and Cell countsOrdered By: Josepraveen Grimaldo on 06-19-2023 Anisocytosis Ql (Bld) 3+ [facility] Erythrocyte distribution width (RBC) [Entitic vol] 102.3 fL 35.1-43.9 [facility] Erythrocyte distribution width (RBC) [Ratio] 25.2 % 11.6-14.6 [facility] Immature granulocytes/100 WBC (Bld) 4.000 % 0.0-0.9 [facility] Comment on above: IG% - Immature Granu locytes (promyelocytes, myelocytes and metamyelocytes) > 1% indicates that a LEFT SHIFT is Present. MCH (RBC) [Entitic mass] 37.4 pg 27.0-32.0 [facility] Nucleated RBC/100 WBC (Bld) [Ratio] 0.9 % 0-5 [facility] MCHC Auto (RBC) [Mass/Vol]Or dered By: Jose Grimaldo on 06-19-2023 MCHC (RBC) [Mass/Vol] 32.9 g/dL 32-36 [facility] No Panel InformationOrdered By: Jose Grimaldo on 06-19-2023 Estimated Creatinine Clearance Calc 70.67 ml/min [facility] Estimated GFR (MDRD) Amer 117 mL/min >60 [facility] Comment on above: GFR Calc Estimated GFR (MDRD) Non-Af Amer 97 mL/min >60 [facility] Comment on above: Non- GFR Calc Platelets bldOrdered By: Jose Grimaldo on 06-19-2023 Platelets (Bld) [#/Vol] 189 10*3/uL 150-450 [facility] Serum or plasma calcium alexander urement (mass/volume)Ordered By: Jose Grimaldo on 06-19-2023 Calcium [Mass/Vol] 9.2 mg/dL 8.5-10.1 [facility] Serum or plasma creatinine m easurement (mass/volume)Ordered By: Jose Grimaldo on 06-19-2023 Creatinine [Mass/Vol] 0.82 mg/dL 0.70-1.30 [facility] Comment on above: The validity of the calculated GFR & GFRAA in patients over 70 years has not been determined. Clinical correlation is essential. Serum or plasma urea nitroge n measurement (mass/volume)Ordered By: Jose Grimaldo on 06-19-2023 Urea nitrogen [Mass/Vol] 12 mg/dL 7-18 [facility] Thin prep Papanicolaou smear with manual screeningOrdered By: Jose Grimaldo on 06-19-2023 Thin prep Papanicolaou smear with manual screening 5 5-15 [facility] No Panel Informationon 05-01 [facility] Absolute lymphocyte countOrd ered By: ED PROVIDER on 03-07-2023 Lymphocytes Auto (Unsp spec) [#/Vol] 0.67 10*3/uL 0.83-4.51 [facility] [place] percentageOrdered B y: ED PROVIDER on 03-07-2023 Basophil percentage 0 SEEN /hpf 0-5 [facility] Basophils/100 WBC (Bld) 0.5 % 0-1 [facility] Bilirubin [Mass/Vol] 1.40 mg/dL 0.20-1.00 [facility] Comment on above: For patients on eltr ombopag therapy, use of Dimension [place] TBIL is not recommended. Chloride [Moles/Vol] 106 mmol/L 98-107 [facility] Eosinophils/100 WBC (Bld) 1.1 % 0-5 [facility] Glucose [Mass/Vol] 120 mg/dL 74-106 [facility] Comment on above: Fasting Glucose resu lt from 100 to 125 mg/dL suggests IMPAIRED HOMEOSTASIS per A.D.A. criteria. Neutrophils (Bld) [#/Vol] 2.7 10*3/uL 2.0-7.7 [facility] Neutrophils/100 WBC (Bld) 71.1 % 47-70 [facility] Potassium [Moles/Vol] 4.2 mmol/L 3.5-5.1 [facility] Protein [Mass/Vol] 6.6 g/dL 6.4-8.2 [facility] Sodium [Moles/Vol] 137 mmol/L 136-145 [facility] WBC (Bld) [#/Vol] 3.8 10*3/uL 4.4-11.0 [facility] Bilirubin Test strip Ql (U)O rdered By: ED PROVIDER on 03-07-2023 Bilirubin Ql (U) Negative Negative [facility] Blood erythrocytes count (nu mber/volume)Ordered By: ED PROVIDER on 03-07-2023 RBC (Bld) [#/Vol] 2.36 10*6/uL 4.6-6.2 [facility] Blood hemoglobin measurement (mass/volume)Ordered By: ED PROVIDER on 03-07-2023 Hemoglobin (Bld) [Mass/Vol] 8.2 g/dL 13.0-16.5 [facility] Blood lymphocytes/100 leukoc ytesOrdered By: ED PROVIDER on 03-07-2023 Lymphocytes/100 WBC (Bld) 17.9 % 19-41 [facility] Blood monocytes/100 leukocyt esOrdered By: ED PROVIDER on 03-07-2023 Monocytes/100 WBC (Bld) 5.9 % 0-10 [facility] Blood platelet adequacy dete ction by light microscopyOrdered By: ED PROVIDER on 03-07-2023 Platelets LM Ql (Bld) ADEQUATE ADEQ [facility] Blood platelet mean volumeOr dered By: ED PROVIDER on 03-07-2023 Platelet mean volume (Bld) [Entitic vol] 11.7 fL 6.2-12.0 [facility] Determination of erythrocyte mean corpuscular volume (MCV)Ordered By: ED PROVIDER on 03-07-2023 MCV (RBC) [Entitic vol] 106.4 fL 80-94 [facility] Hematocrit Auto (Bld) [Volum e fraction]Ordered By: ED PROVIDER on 03-07-2023 Hematocrit (Bld) [Volume fraction] 25.1 % 40-54 [facility] Hypochromatic red blood cell detectionOrdered By: ED PROVIDER on 03-07-2023 Hypochromia Ql (Bld) 1+ [facility] Ketones Test strip Ql (U)Ord ered By: ED PROVIDER on 03-07-2023 Ketones Ql (U) Negative Negative [facility] Laboratory - Chemistry and C hemistry - challengeOrdered By: ED PROVIDER on 03-07-2023 ALP [Catalytic activity/Vol] 88 U/L 45-117 [facility] ALT [Catalytic activity/Vol] 45 U/L 16-61 [facility] CO2 [Moles/Vol] 28.0 mmol/L 21.0-32.0 [facility] Globulin (S) [Mass/Vol] 2.8 g/dL 2.2-4.2 [facility] Urea nitrogen/Creatinine [Mass ratio] 14.9 mg/mg 10-20 [facility] Laboratory - Chemistry and C hemistry - challengeOrdered By: Dr. Garcia on 03-07-2023 Lipase [Catalytic activity/Vol] 39 U/L 13-75 [facility] Comment on above: Please note:LIPASE r evised reference range effective 23. New Lipase methodology. Expected to produce lower values than the previous assay method. NEW Reference Range: 13 - 75 U/L Laboratory - Hematology and Cell countsOrdered By: ED PROVIDER on 03-07-2023 Anisocytosis Ql (Bld) 1+ [facility] Erythrocyte distribution width (RBC) [Entitic vol] 92.0 fL 35.1-43.9 [facility] Erythrocyte distribution width (RBC) [Ratio] 25.2 % 11.6-14.6 [facility] Immature granulocytes/100 WBC (Bld) 3.500 % 0.0-0.9 [facility] Comment on above: IG% - Immature Granu locytes (promyelocytes, myelocytes and metamyelocytes) > 1% indicates that a LEFT SHIFT is Present. MCH (RBC) [Entitic mass] 34.7 pg 27.0-32.0 [facility] Nucleated RBC/100 WBC (Bld) [Ratio] 0.8 % 0-5 [facility] MCHC Auto (RBC) [Mass/Vol]Or dered By: ED PROVIDER on 03-07-2023 MCHC (RBC) [Mass/Vol] 32.7 g/dL 32-36 [facility] Macrocytes detectionOrdered By: ED PROVIDER on 03-07-2023 Macrocytes Ql (Bld) 1+ [facility] Mucus LM Ql (Urine sed)Order ed By: ED PROVIDER on 03-07-2023 Mucus Ql (Urine sed) 0 SEEN /hpf [facility] Nitrite Test strip Ql (U)Ord ered By: ED PROVIDER on 03-07-2023 Nitrite Ql (U) Negative Negative [facility] No Panel InformationOrdered By: ED PROVIDER on 03-07-2023 Estimated Creatinine Clearance Calc 78.58 ml/min [facility] Estimated GFR (MDRD) Amer 119 mL/min >60 [facility] Comment on above: GFR Calc Estimated GFR (MDRD) Non-Af Amer 99 mL/min >60 [facility] Comment on above: Non- GFR Calc Platelets bldOrdered By: ED PROVIDER on 03-07-2023 Platelets (Bld) [#/Vol] 171 10*3/uL 150-450 [facility] Protein Test strip Ql (U)Ord ered By: ED PROVIDER on 03-07-2023 Protein Ql (U) Negative Negative [facility] RBC morphologyOrdered By: ED PROVIDER on 03-07-2023 RBC morphology finding Nom (Bld) N CHROM NORMAL NORM C&C [facility] Serum or plasma albumin alexander urement (mass/volume)Ordered By: ED PROVIDER on 03-07-2023 Albumin [Mass/Vol] 3.8 g/dL 3.2-5.0 [facility] Serum or plasma albumin/glob ulin mass ratioOrdered By: ED PROVIDER on 03-07-2023 Albumin/Globulin [Mass ratio] 1.4 {ratio} 0.9-2.4 [facility] Serum or plasma calcium alexander urement (mass/volume)Ordered By: ED PROVIDER on 03-07-2023 Calcium [Mass/Vol] 9.1 mg/dL 8.5-10.1 [facility] Serum or plasma creatinine m easurement (mass/volume)Ordered By: ED PROVIDER on 03-07-2023 Creatinine [Mass/Vol] 0.80 mg/dL 0.70-1.30 [facility] Comment on above: The validity of the calculated GFR & GFRAA in patients over 70 years has not been determined. Clinical correlation is essential. Serum or plasma urea nitroge n measurement (mass/volume)Ordered By: ED PROVIDER on 03-07-2023 Urea nitrogen [Mass/Vol] 12 mg/dL 7-18 [facility] Squamous epithelial cells de tection in urine sediment by light microscopyOrdered By: ED PROVIDER on 03-07-2023 Epithelial cells.squamous LM Ql (Urine sed) 0 SEEN /hpf 0-5 [facility] Thin prep Papanicolaou smear with manual screeningOrdered By: ED PROVIDER on 03-07-2023 Thin prep Papanicolaou smear with manual screening 24 U/L 15-37 [facility] Thin prep Papanicolaou smear with manual screening 3 5-15 [facility] Urine blood detectionOrdered By: ED PROVIDER on 03-07-2023 RBC Ql (U) Negative Negative [facility] RBC Ql (U) 0 SEEN /hpf 0-5 [facility] Urine clarityOrdered By: ED PROVIDER on 03-07-2023 Clarity (U) Clear Clear [facility] Urine color determinationOrd ered By: ED PROVIDER on 03-07-2023 Color (U) Yellow Yellow [facility] Urine glucose detectionOrder ed By: ED PROVIDER on 03-07-2023 Glucose Ql (U) Normal mg/dl Normal [facility] Urine leukocyte esterase det ection by dipstickOrdered By: ED PROVIDER on 03-07-2023 Leukocyte esterase Test strip Ql (U) Negative Negative [facility] Urine pHOrdered By: ED PROVI DENISE on 03-07-2023 pH (U) 7.0 [pH] 5.0 - 8.0 [facility] Urine sediment bacteria coun t by microscopy (number/high power field)Ordered By: ED PROVIDER on 03-07-2023 Bacteria LM.HPF (Urine sed) [#/Area] 0 /[HPF] None Seen [facility] Urine specific gravity measu rementOrdered By: ED PROVIDER on 03-07-2023 Specific gravity (U) [Rel density] 1.010 1.002-1.030 [facility] Urobilinogen Auto test strip Ql (U)Ordered By: ED PROVIDER on 03-07-2023 Urobilinogen Ql (U) Normal mg/dl Normal [facility] Laboratory - Drug toxicology Ordered By: Dr. Traore on 03-06-2023 Amphetamines Ql (U) Negative <1000 ng/mL [facility] Benzodiazepines Ql (U) Negative < 200 ng/mL [facility] Cannabinoids Screen Ql (U) Negative < 50 ng/mL [facility] Cocaine Ql (U) Negative < 300 ng/mL [facility] Opiates Ql (U) Negative < 300 ng/mL [facility] No Panel InformationOrdered By: Dr. Traore on 03-06-2023 MDMA (Ecstasy) Screen Negative < 500 ng/mL [facility] Miscellaneous Test See comment [facility] Comment on above: TEST RESULT LIMITSTr amadol Positive Rnqwvn=385 Tramadol Conf,MS,UR 5690 ng/mL Ajjvvj=100 TESTING PERFORMED AT [facility]. ORIGINAL REPORT ON FILE IN LAB CONTAINS ADDITIONAL TEST SITE INFORMATION. Urine Barbiturates Screen Negative < 200 ng/mL [facility] Urine Drug Screen Comment [facility] Comment on above: CONFIRMATORY TESTING FOR ALL POSITIVE URINE DRUG SCREENRESULTS WILL ONLY BE SENT OUT UPON PHYSICIAN ORDER. VISTA Urine Drug Screen methods provide only preliminaryanalytical test results. A more specific alternate chemicalmethod must be used in order to obtain a confirmedanalytical result. Gas chromatography/mass spectrometery(GC/MS) is the preferred confirmatory method. Clinicalconsideration and professional judgement should be appliedto any drug of abuse test result, particularly whenpreliminary positive results are used. URINE TCA TESTING MUST BE ORDERED SEPARATELY. USE TESTMNEMONIC: [facility] Urine Methadone Screen Negative < 300 ng/mL [facility] Urine phencyclidine (PCP) de tectionOrdered By: Dr. Traore on 03-06-2023 Phencyclidine Ql (U) Negative < 25 ng/mL [facility] CBC W Auto Differential pane l (Bld)on 01-24-2023 Basophils (Bld) [#/Vol] <0.11 k/uL [facility] Basophils/100 WBC (Bld) 0.3 % [facility] Differential cell count method Nom (Bld) Auto [facility] Eosinophils (Bld) [#/Vol] <0.46 k/uL [facility] Eosinophils/100 WBC (Bld) 0.5 % [facility] Erythrocyte distribution width (RBC) [Ratio] 19.7 % High 11.5 - 15.0 % [facility] Hematocrit (Bld) [Volume fraction] 24.3 % Low 39.0 - 51.0 % [facility] Hemoglobin (Bld) [Mass/Vol] 8.2 g/dL Low 13.0 - 17.0 g/dL [facility] Immature granulocytes (Bld) [#/Vol] <0.10 k/uL [facility] Immature granulocytes/100 WBC (Bld) 0.3 % [facility] Lymphocytes (Bld) [#/Vol] 0.62 10*3/uL Low 1.00 - 4.00 k/uL [facility] Lymphocytes/100 WBC (Bld) 17.0 % [facility] MCH (RBC) [Entitic mass] 35.3 pg High 26.0 - 34.0 pg [facility] MCHC (RBC) [Mass/Vol] 33.7 g/dL 30.5 - 36.0 g/dL [facility] MCV (RBC) [Entitic vol] 104.7 fL High 80.0 - 100.0 fL [facility] Monocytes (Bld) [#/Vol] 0.18 10*3/uL <0.87 k/uL [facility] Monocytes/100 WBC (Bld) 4.9 % [facility] Neutrophils (Bld) [#/Vol] 2.81 10*3/uL 1.45 - 7.50 k/uL [facility] Neutrophils/100 WBC (Bld) 77.0 % [facility] Nucleated RBC (Bld) [#/Vol] <0.01 k/uL [facility] Nucleated RBC/100 WBC (Bld) [Ratio] 0.0 /100 WBC [facility] Platelet mean volume (Bld) [Entitic vol] 10.4 fL 9.0 - 12.7 fL [facility] Platelets (Bld) [#/Vol] 152 10*3/uL 150 - 400 k/uL [facility] RBC (Bld) [#/Vol] 2.32 10*6/uL Low 4.20 - 6.0 0 m/uL [facility] WBC (Bld) [#/Vol] 3.65 10*3/uL Low 3.70 - 11.00 k/uL [facility] No Panel Informationon 12-10 [facility] Absolute lymphocyte countOrd ered By: Delisa Francis on 11-13-2022 Lymphocytes Auto (Unsp spec) [#/Vol] 0.55 10*3/uL 0.83-4.51 [facility] Basophil percentageOrdered B y: Delisa Francis on 11-13-2022 Basophils/100 WBC (Bld) 0.4 % 0-1 [facility] Bilirubin [Mass/Vol] 0.90 mg/dL 0.20-1.00 [facility] Comment on above: For patients on eltr ombopag therapy, use of Dimension [place] TBIL is not recommended. Chloride [Moles/Vol] 105 mmol/L 98-107 [facility] Eosinophils/100 WBC (Bld) 2.0 % 0-5 [facility] Glucose [Mass/Vol] 145 mg/dL 74-106 [facility] Comment on above: Fasting Glucose resu lt greater than or equal to 126 mg/dL suggests DIABETES MELLITUS per A.D.A. criteria. LDH [Catalytic activity/Vol] 136 U/L 87-241 [facility] Neutrophils (Bld) [#/Vol] 1.7 10*3/uL 2.0-7.7 [facility] Neutrophils/100 WBC (Bld) 69.4 % 47-70 [facility] Potassium [Moles/Vol] 3.8 mmol/L 3.5-5.1 [facility] Protein [Mass/Vol] 6.8 g/dL 6.4-8.2 [facility] Sodium [Moles/Vol] 140 mmol/L 136-145 [facility] WBC (Bld) [#/Vol] 2.5 10*3/uL 4.4-11.0 [facility] Blood erythrocytes count (nu mber/volume)Ordered By: Delisa Francis on 11-13-2022 RBC (Bld) [#/Vol] 1.86 10*6/uL 4.6-6.2 [facility] Blood hemoglobin measurement (mass/volume)Ordered By: Delisa Francis on 11-13-2022 Hemoglobin (Bld) [Mass/Vol] 7.6 g/dL 13.0-16.5 [facility] Blood lymphocytes/100 leukoc ytesOrdered By: Delisa Francis on 11-13-2022 Lymphocytes/100 WBC (Bld) 22.2 % 19-41 [facility] Blood manual differential co mment interpretation (narrative result)Ordered By: Delisa Francis on 11-13-2022 Manual differential comment Javi (Bld) [Interp] COMMENT [facility] Comment on above: LYMPHOPENIA. Blood monocytes/100 leukocyt esOrdered By: Delisa Francis on 11-13-2022 Monocytes/100 WBC (Bld) 5.6 % 0-10 [facility] Blood platelet mean volumeOr dered By: Delisa Francis on 11-13-2022 Platelet mean volume (Bld) [Entitic vol] 10.9 fL 6.2-12.0 [facility] Determination of erythrocyte mean corpuscular volume (MCV)Ordered By: Delisa Francis on 11-13-2022 MCV (RBC) [Entitic vol] 125.3 fL 80-94 [facility] Hematocrit Auto (Bld) [Volum e fraction]Ordered By: Delisa Francis on 11-13-2022 Hematocrit (Bld) [Volume fraction] 23.3 % 40-54 [facility] Interpretation of serum or p lasma protein pattern by immunofixation (narrative resultOrdered By: Delisa Francis on 11-13-2022 Protein Fractions Immunofixation Javi [Interp] See comment [facility] Comment on above: MONOCLONAL IGM KAPPA #1 = 0.2 G/DLMONOCLONAL IGM KAPPA #2 = 0.3 G/DL Laboratory - Chemistry and C hemistry - challengeOrdered By: Delisa Francis on 11-13-2022 ALP [Catalytic activity/Vol] 69 U/L 45-117 [facility] ALT [Catalytic activity/Vol] 32 U/L 16-61 [facility] CO2 [Moles/Vol] 29.0 mmol/L 21.0-32.0 [facility] Urea nitrogen/Creatinine [Mass ratio] 17.0 mg/mg 10-20 [facility] Laboratory - Hematology and Cell countsOrdered By: Delisa Francis on 11-13-2022 Anisocytosis Ql (Bld) 1+ [facility] Erythrocyte distribution width (RBC) [Entitic vol] 73.6 fL 35.1-43.9 [facility] Erythrocyte distribution width (RBC) [Ratio] 16.0 % 11.6-14.6 [facility] Immature granulocytes/100 WBC (Bld) 0.400 % 0.0-0.9 [facility] Comment on above: IG% - Immature Granu locytes (promyelocytes, myelocytes and metamyelocytes) > 1% indicates that a LEFT SHIFT is Present. MCH (RBC) [Entitic mass] 40.9 pg 27.0-32.0 [facility] Nucleated RBC/100 WBC (Bld) [Ratio] 0 % 0-5 [facility] MCHC Auto (RBC) [Mass/Vol]Or dered By: Delisa Francis on 11-13-2022 MCHC (RBC) [Mass/Vol] 32.6 g/dL 32-36 [facility] No Panel InformationOrdered By: Delisa Francis on 11-13-2022 Addendum Document Comment . [facility] Comment on above: Protein electrophore sis scan will follow via computer,mail, or regulatory affairs manager delivery. Estimated Creatinine Clearance Calc 66.87 ml/min [facility] Estimated GFR (MDRD) Amer 100 mL/min >60 [facility] Comment on above: GFR Calc Estimated GFR (MDRD) Non-Af Amer 83 mL/min >60 [facility] Comment on above: Non- GFR Calc Free Lambda Light Chains, Quant 23.4 mg/L 5.7-26.3 [facility] Platelets bldOrdered By: Reese Francis on 11-13-2022 Platelets (Bld) [#/Vol] 107 10*3/uL 150-450 [facility] Review by pathologistOrdered By: Delisa Francis on 11-13-2022 Pathologist review Javi (Unsp spec) [Interp] Reviewed [facility] Comment on above: Previous reported re sult: Verena slater Edited by: RGOOD on 11/15/22:0942Pancytopenia.Macrocytic anemia.LeukopeniaMild Thrombocytopenia.Clinical correlation necessary.Rigoberto Badillo D.O. 11/15/22 AMENDED REPORT 11/15/22 [id number] PATH REV previously reported as: Verena slater Serum xoxqd-3-fkaiiyan measu rement by electrophoresisOrdered By: Delisa Francis on 11-13-2022 Alpha 1 globulin Elph [Mass/Vol] 0.2 g/dL 0.0-0.4 [facility] Alpha 1 globulin Elph [Mass/Vol] 0.5 g/dL 0.4-1.0 [facility] Serum globulin measurement ( mass/volume)Ordered By: Delisa Francis on 11-13-2022 Globulin (S) [Mass/Vol] 2.1 g/dL 2.2-3.9 [facility] Serum immunoglobulin kappa l ight chains/immunoglobulin lambda light chains mass ratioOrdered By: Delisa Francis on 11-13-2022 Immunoglobulin light chains.kappa/Immunoglob ulin light chains.lambda (S) [Mass ratio] 4.06 0.26-1.65 [facility] Comment on above: Performed at: - [employer] [id number] Director: Ramakrishna Lea PhD, Phone: [phone] Serum or plasma IgA measurem ent (mass/volume)Ordered By: Delisa Francis on 11-13-2022 IgA [Mass/Vol] 183 mg/dL 61-437 [facility] Serum or plasma IgG measurem ent (mass/volume)Ordered By: Delisa Francis on 11-13-2022 IgG [Mass/Vol] 539 mg/dL 603-1613 [facility] Serum or plasma IgM measurem ent (mass/volume)Ordered By: Delisa Francis on 11-13-2022 IgM [Mass/Vol] 620 mg/dL 15-143 [facility] Serum or plasma albumin alexander urement (mass/volume)Ordered By: Delisa Francis on 11-13-2022 Albumin [Mass/Vol] 4.1 g/dL 2.9-4.4 [facility] Serum or plasma albumin/glob ulin mass ratioOrdered By: Delisa Francis on 11-13-2022 Albumin/Globulin [Mass ratio] 1.5 {ratio} 0.9-2.4 [facility] Serum or plasma beta globuli n measurement by electrophoresis (mass/volume)Ordered By: Delisa Francis on 11-13-2022 Beta globulin Elph [Mass/Vol] 0.5 g/dL 0.7-1.3 [facility] Serum or plasma calcium alexander urement (mass/volume)Ordered By: Delisa Francis on 11-13-2022 Calcium [Mass/Vol] 9.2 mg/dL 8.5-10.1 [facility] Serum or plasma creatinine m easurement (mass/volume)Ordered By: Delisa Francis on 11-13-2022 Creatinine [Mass/Vol] 0.94 mg/dL 0.70-1.30 [facility] Comment on above: The validity of the calculated GFR & GFRAA in patients over 70 years has not been determined. Clinical correlation is essential. Serum or plasma gamma globul in measurement by electrophoresis (mass/volume)Ordered By: Delisa Francis on 11-13-2022 Gamma globulin Elph [Mass/Vol] 0.9 g/dL 0.4-1.8 [facility] Serum or plasma immunoelectr ophoresis interpretation (nominal result)Ordered By: Delisa Francis on 11-13-2022 Interpretation IEP [Interp] Comment . [facility] Comment on above: Immunofixation shows a monoclonal gammopathy of IgM kappawith monomer.LAMBDA APPEARS ASYMMETRICAL Serum or plasma immunoglobul in kappa light chains measurement (mass/volume)Ordered By: Delisa Francis on 11-13-2022 Immunoglobulin light chains.kappa [Mass/Vol] 95.1 mg/L 3.3-19.4 [facility] Serum or plasma urea nitroge n measurement (mass/volume)Ordered By: Delisa Francis on 11-13-2022 Urea nitrogen [Mass/Vol] 16 mg/dL 7-18 [facility] Thin prep Papanicolaou smear with manual screeningOrdered By: Delisa Francis on 11-13-2022 Thin prep Papanicolaou smear with manual screening 17 U/L 15-37 [facility] Thin prep Papanicolaou smear with manual screening 6 5-15 [facility] Thin prep Papanicolaou smear with manual screening 2.0 0.7-1.7 [facility] Total protein bloodOrdered B y: Delisa Francis on 11-13-2022 Protein [Mass/Vol] 6.2 g/dL 6.0-8.5 [facility] Hypochromatic red blood cell detectionOrdered By: Dr. Alfaro on 10-29-2022 Hypochromia Ql (Bld) 1+ [facility] Ovalocyte detectionOrdered B y: Dr. Alfaro on 10-29-2022 Ovalocytes LM Ql (Bld) 1+ [facility] Serum or plasma ferritin petey surement (mass/volume)Ordered By: Dr. Alfaro on 10-29-2022 Ferritin [Mass/Vol] 3592 ng/mL 26-388 [facility] Teardrop cell detectionOrder ed By: Dr. Alfaro on 10-29-2022 Dacrocytes LM Ql (Bld) RARE [facility] Macrocytes detectionOrdered By: Dr. Alfaro on 10-21-2022 Macrocytes Ql (Bld) 2+ [facility] No Panel InformationOrdered By: Dr. 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 Alfaro on 10-10-2022 Urate [Mass/Vol] 5.0 mg/dL 3.5-7.2 [facility] Comment on above: The drugs N-Acetylcy steine and Metamizole may falsely depress this assay. Thin prep Papanicolaou smear with manual screeningOrdered By: Dr. Alfaro on 10-10-2022 Thin prep Papanicolaou smear with manual screening 79 ug/dL 69-132 [facility] Comment on above: Detection Limit = 5P erformed at: [facility] [address] [id number] Director: Ramakrishna Lea PhD, Phone: [phone] at: [facility] [address] [id number] Director: Arik Mendez MD, Phone: [phone] Iron measurement (mass/mass) Ordered By: Dr. Alfaro on 09-05-2022 Iron (Unsp spec) [Mass/Mass] 156 ug/dL 65-175 [facility] Laboratory - Chemistry and C hemistry - challengeOrdered By: Dr. Alfaro on 09-05-2022 Cobalamin (Vitamin B12) [Mass/Vol] 510 pg/mL 211-911 [facility] No Panel InformationOrdered By: Dr. Alfaro on 09-05-2022 Total Iron Binding Capacity 185 ug/dL 250-450 [facility] Serum or plasma erythropoiet in (EPO) measurement (units/volume)Ordered By: Dr. Alfaro on 09-05-2022 Erythropoietin (EPO) Qn 202.8 mIU/mL 2.6-18.5 [facility] Comment on above: [employer] el DxI 800 Immunoassay SystemValues obtained with different assay methods or kits cannotbe used interchangeably. Results cannot be interpreted asabsolute evidence of the presence or absence of malignantdisease.Performed at: [facility] [address] [id number] Director: Ramakrishna Lea PhD, Phone: [phone] Serum or plasma folate measu rement (mass/volume)Ordered By: Dr. Alfaro on 09-05-2022 Folate [Mass/Vol] 39.70 ng/mL 3.1-55.4 [facility] Serum or plasma iron saturat ion measurement (mass fraction)Ordered By: Dr. Alfaro on 09-05-2022 Iron saturation [Mass fraction] 84.3 % 15.0-55.0 [facility] Blood platelet adequacy dete ction by light microscopyOrdered By: Delisa Francis on 07-11-2022 Platelets LM Ql (Bld) SLT DEC ADEQ [facility] Hemoglobin in reticulocytes (mass per reticulocyte)Ordered By: Dr. Alfaro on 05-23-2022 Hemoglobin (Reticulocytes) [Entitic mass] 34.0 pg 30-35 [facility] No Panel InformationOrdered By: Dr. Alfaro on 05-23-2022 Immature Reticulocyte Fraction 11.10 % 3.00-15.90 [facility] Reticulocyte Count 1.89 % 0.5-1.5 [facility] Absolute lymphocyte counton 05-14-2022 Lymphocytes Auto (Unsp spec) [#/Vol] 0.26 10*3/uL 0.83-4.51 [facility] Work Phone: [phone] Basophil percentageon 2021 Basophils/100 WBC (Bld) 0.0 % 0-1 [facility] Work Phone: [phone] Chloride [Moles/Vol] 102 mmol/L 98-107 [facility] Work Phone: Eosinophils/100 WBC (Bld) 3.1 % 0-5 [facility] Work Phone: [phone] Glucose [Mass/Vol] 118 mg/dL 74-106 [facility] Work Phone: Comment on above: Fasting Glucose resu lt from 100 to 125 mg/dL suggests IMPAIRED HOMEOSTASIS per A.D.A. criteria. Neutrophils (Bld) [#/Vol] 0.1 10*3/uL 2.0-7.7 [facility] Work Phone: [phone] Neutrophils/100 WBC (Bld) 15.6 % 47-70 [facility] Work Phone: [phone] Potassium [Moles/Vol] 3.9 mmol/L 3.5-5.1 [facility] Work Phone: [phone] Sodium [Moles/Vol] 133 mmol/L 136-145 [facility] Work Phone: [phone] WBC (Bld) [#/Vol] 0.3 10*3/uL 4.4-11.0 [facility] Work Phone: Comment on above: CRITICAL VALUE VERIF IED. CALLED TO COLBY LAYNE05/14/22 0707 Benitez Armstrong.RESULTS READ BACK BY SAME . Blood erythrocytes count (nu mber/volume)on 05-14-2022 RBC (Bld) [#/Vol] 2.57 10*6/uL 4.6-6.2 [facility] Work Phone: Blood hemoglobin measurement (mass/volume)on 05-14-2022 Hemoglobin (Bld) [Mass/Vol] 8.2 g/dL 13.0-16.5 [facility] Work Phone: Blood lymphocytes/100 leukoc yteson 05-14-2022 Lymphocytes/100 WBC (Bld) 81.3 % 19-41 [facility] Work Phone: [phone] Blood manual differential co mment interpretation (narrative result)on 05-14-2022 Manual differential comment Javi (Bld) [Interp] SCANNED [facility] Work Phone: Blood monocytes/100 leukocyt eson 05-14-2022 Monocytes/100 WBC (Bld) 0.0 % 0-10 [facility] Work Phone: Blood platelet mean volumeon 05-14-2022 Platelet mean volume (Bld) [Entitic vol] 11.1 fL 6.2-12.0 [facility] Work Phone: [phone] Determination of erythrocyte mean corpuscular volume (MCV)on 05-14-2022 MCV (RBC) [Entitic vol] 93.8 fL 80-94 [facility] Work Phone: [phone] Hematocrit Auto (Bld) [Volum e fraction]on 05-14-2022 Hematocrit (Bld) [Volume fraction] 24.1 % 40-54 [facility] Work Phone: [phone] Laboratory - Chemistry and C hemistry - challengeon 05-14-2022 CO2 [Moles/Vol] 25.0 mmol/L 21.0-32.0 [facility] Work Phone: [phone] Urea nitrogen/Creatinine [Mass ratio] 18.1 mg/mg 10-20 [facility] Work Phone: [phone] Laboratory - Hematology and Cell countson 05-14-2022 Erythrocyte distribution width (RBC) [Entitic vol] 57.8 fL 35.1-43.9 [facility] Work Phone: [phone] Erythrocyte distribution width (RBC) [Ratio] 17.3 % 11.6-14.6 [facility] Work Phone: [phone] Immature granulocytes/100 WBC (Bld) 0.000 % 0.0-0.9 [facility] Work Phone: [phone] Comment on above: IG% - Immature Granu locytes (promyelocytes, myelocytes and metamyelocytes) > 1% indicates that a LEFT SHIFT is Present. MCH (RBC) [Entitic mass] 31.9 pg 27.0-32.0 [facility] Work Phone: [phone] Nucleated RBC/100 WBC (Bld) [Ratio] 6.3 % 0-5 [facility] Work Phone: [phone] MCHC Auto (RBC) [Mass/Vol]on 05-14-2022 MCHC (RBC) [Mass/Vol] 34.0 g/dL 32-36 [facility] Work Phone: No Panel Informationon 05-14 Estimated Creatinine Clearance Calc 63.88 ml/min [facility] Work Phone: Estimated GFR (MDRD) Amer 184 mL/min >60 [facility] Work Phone: Comment on above: GFR Calc Estimated GFR (MDRD) Non-Af Amer 152 mL/min >60 [facility] Work Phone: Comment on above: Non- GFR Calc Platelets bldon 05-14-2022 Platelets (Bld) [#/Vol] 32 10*3/uL 150-450 [facility] Work Phone: Comment on above: CRITICAL VALUE VERIF IED. CALLED TO COLBY LAYNE05/14/22 07 Benitez Armstrong.RESULTS READ BACK BY SAME . Review by pathologiston Pathologist review Javi (Unsp spec) [Interp] Reviewed [facility] Work Phone: Comment on above: Previous reported re sult: Verena slater Edited by: RGOOD on 05/14/22:1415Pancytopenia.Normocytic anemia.Leukopenia and Neutropenia.Marked ThrombocytopeniaClinical correlation necessary.Brian Turner M.D. 05/14/22 AMENDED REPORT 05/14/22 1415 PATH REV previously reported as: Verena slater Serum or plasma calcium alexander urement (mass/volume)on 05-14-2022 Calcium [Mass/Vol] 8.5 mg/dL 8.5-10.1 [facility] Work Phone: Serum or plasma creatinine m easurement (mass/volume)on 05-14-2022 Creatinine [Mass/Vol] 0.55 mg/dL 0.70-1.30 [facility] Work Phone: Comment on above: The validity of the calculated GFR & GFRAA in patients over 70 years has not been determined. Clinical correlation is essential. Serum or plasma urea nitroge n measurement (mass/volume)on 05-14-2022 Urea nitrogen [Mass/Vol] 10 mg/dL 7-18 [facility] Work Phone: Thin prep Papanicolaou smear with manual screeningon 05-14-2022 Thin prep Papanicolaou smear with manual screening 6 5-15 [facility] Work Phone: Blood platelet adequacy dete ction by light microscopyon 05-13-2022 Platelets LM Ql (Bld) MKD DEC ADEQ [facility] Work Phone: Hypochromatic red blood cell detectionon 05-13-2022 Hypochromia Ql (Bld) 1+ [facility] Work Phone: [phone] Laboratory - Hematology and Cell countson 05-13-2022 Anisocytosis Ql (Bld) 1+ [facility] Work Phone: Basophil percentageon 2021 Bilirubin [Mass/Vol] 1.20 mg/dL 0.20-1.00 [facility] Work Phone: Comment on above: For patients on eltr ombopag therapy, use of Dimension [place] TBIL is not recommended. Protein [Mass/Vol] 5.3 g/dL 6.4-8.2 [facility] Work Phone: Laboratory - Chemistry and C hemistry - challengeon 05-10-2022 ALP [Catalytic activity/Vol] 66 U/L 45-117 [facility] Work Phone: ALT [Catalytic activity/Vol] 31 U/L 16-61 [facility] Work Phone: Globulin (S) [Mass/Vol] 2.5 g/dL 2.2-4.2 [facility] Work Phone: RBC morphologyon 05-10-2022 RBC morphology finding Nom (Bld) NORM C+C NORMAL NORM C&C [facility] Work Phone: Serum or plasma albumin alexander urement (mass/volume)on 05-10-2022 Albumin [Mass/Vol] 2.8 g/dL 3.2-5.0 [facility] Work Phone: Serum or plasma albumin/glob ulin mass ratioon 05-10-2022 Albumin/Globulin [Mass ratio] 1.1 {ratio} 0.9-2.4 [facility] Work Phone: [phone] Thin prep Papanicolaou smear with manual screeningon 05-10-2022 Thin prep Papanicolaou smear with manual screening 17 U/L 15-37 [facility] Work Phone: Absolute lymphocyte counton 05-09-2022 Lymphocytes Auto (Unsp spec) [#/Vol] 0.24 10*3/uL 0.83-4.51 [facility] Work Phone: Basophil percentageon 2021 Basophil percentage 3.4 mg/dL 2.5-4.9 [facility] Work Phone: [phone] Basophils/100 WBC (Bld) 0.0 % 0-1 [facility] Work Phone: [phone] Bilirubin [Mass/Vol] 0.70 mg/dL 0.20-1.00 [facility] Work Phone: [phone] Comment on above: For patients on eltr ombopag therapy, use of Dimension [place] TBIL is not recommended. Chloride [Moles/Vol] 103 mmol/L 98-107 [facility] Work Phone: Eosinophils/100 WBC (Bld) 3.6 % 0-5 [facility] Work Phone: [phone] Glucose [Mass/Vol] 124 mg/dL 74-106 [facility] Work Phone: Comment on above: Fasting Glucose resu lt from 100 to 125 mg/dL suggests IMPAIRED HOMEOSTASIS per A.D.A. criteria. Lactate [Moles/Vol] 0.7 mmol/L 0.4-2.0 [facility] Work Phone: Neutrophils (Bld) [#/Vol] 0.0 10*3/uL 2.0-7.7 [facility] Work Phone: Neutrophils/100 WBC (Bld) 10.7 % 47-70 [facility] Work Phone: Potassium [Moles/Vol] 4.1 mmol/L 3.5-5.1 [facility] Work Phone: [phone] Protein [Mass/Vol] 6.3 g/dL 6.4-8.2 [facility] Work Phone: Sodium [Moles/Vol] 136 mmol/L 136-145 [facility] Work Phone: WBC (Bld) [#/Vol] 0.3 10*3/uL 4.4-11.0 [facility] Work Phone: Comment on above: CRITICAL VALUE VERIF IED. CALLED TO [id number] Domenica Hinds.RESULTS READ BACK BY SAME . Basophil percentage 0 SEEN /hpf 0-5 [facility] Work Phone: Bilirubin Test strip Ql (U)o n 05-09-2022 Bilirubin Ql (U) Negative Negative [facility] Work Phone: Blood erythrocytes count (nu mber/volume)on 05-09-2022 RBC (Bld) [#/Vol] 2.19 10*6/uL 4.6-6.2 [facility] Work Phone: Blood hemoglobin measurement (mass/volume)on 05-09-2022 Hemoglobin (Bld) [Mass/Vol] 7.1 g/dL 13.0-16.5 [facility] Work Phone: Blood lymphocytes/100 leukoc yteson 05-09-2022 Lymphocytes/100 WBC (Bld) 85.7 % 19-41 [facility] Work Phone: Blood manual differential co mment interpretation (narrative result)on 05-09-2022 Manual differential comment Javi (Bld) [Interp] SCANNED [facility] Work Phone: Comment on above: LEUKOCYTOPENIA NOTED THROMBOCYTOPENIA NOTED Blood monocytes/100 leukocyt eson 05-09-2022 Monocytes/100 WBC (Bld) 0.0 % 0-10 [facility] Work Phone: Blood platelet mean volumeon 05-09-2022 Platelet mean volume (Bld) [Entitic vol] TNP [facility] Work Phone: Comment on above: Test not performed Determination of erythrocyte mean corpuscular volume (MCV)on 05-09-2022 MCV (RBC) [Entitic vol] 96.3 fL 80-94 [facility] Work Phone: [phone] Hematocrit Auto (Bld) [Volum e fraction]on 05-09-2022 Hematocrit (Bld) [Volume fraction] 21.1 % 40-54 [facility] Work Phone: [phone] Ketones Test strip Ql (U)on 05-09-2022 Ketones Ql (U) Negative Negative [facility] Work Phone: [phone] Laboratory - Chemistry and C hemistry - challengeon 05-09-2022 ALP [Catalytic activity/Vol] 94 U/L 45-117 [facility] Work Phone: [phone] ALT [Catalytic activity/Vol] 41 U/L 16-61 [facility] Work Phone: [phone] CO2 [Moles/Vol] 30.0 mmol/L 21.0-32.0 [facility] Work Phone: [phone] Globulin (S) [Mass/Vol] 2.8 g/dL 2.2-4.2 [facility] Work Phone: [phone] Magnesium [Mass/Vol] 2.0 mg/dL 1.6-2.6 [facility] Work Phone: [phone] Urea nitrogen/Creatinine [Mass ratio] 16.1 mg/mg 10-20 [facility] Work Phone: [phone] Laboratory - Hematology and Cell countson 05-09-2022 Erythrocyte distribution width (RBC) [Entitic vol] 62.3 fL 35.1-43.9 [facility] Work Phone: [phone] Erythrocyte distribution width (RBC) [Ratio] 18.0 % 11.6-14.6 [facility] Work Phone: [phone] Immature granulocytes/100 WBC (Bld) 0.000 % 0.0-0.9 [facility] Work Phone: Comment on above: IG% - Immature Granu locytes (promyelocytes, myelocytes and metamyelocytes) > 1% indicates that a LEFT SHIFT is Present. MCH (RBC) [Entitic mass] 32.4 pg 27.0-32.0 [facility] Work Phone: Nucleated RBC/100 WBC (Bld) [Ratio] 0 % 0-5 [facility] Work Phone: MCHC Auto (RBC) [Mass/Vol]on 05-09-2022 MCHC (RBC) [Mass/Vol] 33.6 g/dL 32-36 [facility] Work Phone: Mucus LM Ql (Urine sed)on Mucus Ql (Urine sed) 0 SEEN /hpf [facility] Work Phone: Nitrite Test strip Ql (U)on 05-09-2022 Nitrite Ql (U) Negative Negative [facility] Work Phone: No Panel Informationon 05-09 Estimated Creatinine Clearance Calc 63.88 ml/min [facility] Work Phone: Estimated GFR (MDRD) Amer 131 mL/min >60 [facility] Work Phone: Comment on above: GFR Calc Estimated GFR (MDRD) Non-Af Amer 108 mL/min >60 [facility] Work Phone: Comment on above: Non- GFR Calc Platelets bldon 05-09-2022 Platelets (Bld) [#/Vol] 4 10*3/uL 150-450 [facility] Work Phone: Comment on above: CRITICAL VALUE VERIF IED. CALLED TO [id number] Domenica Hinds.RESULTS READ BACK BY SAME . Protein Test strip Ql (U)on 05-09-2022 Protein Ql (U) Negative Negative [facility] Work Phone: Review by pathologiston 04-12 Pathologist review Javi (Unsp spec) [Interp] May foll [facility] Work Phone: Serum or plasma albumin alexander urement (mass/volume)on 05-09-2022 Albumin [Mass/Vol] 3.5 g/dL 3.2-5.0 [facility] Work Phone: Serum or plasma albumin/glob ulin mass ratioon 05-09-2022 Albumin/Globulin [Mass ratio] 1.2 {ratio} 0.9-2.4 [facility] Work Phone: Serum or plasma calcium alexander urement (mass/volume)on 05-09-2022 Calcium [Mass/Vol] 8.9 mg/dL 8.5-10.1 [facility] Work Phone: Serum or plasma creatinine m easurement (mass/volume)on 05-09-2022 Creatinine [Mass/Vol] 0.74 mg/dL 0.70-1.30 [facility] Work Phone: Comment on above: The validity of the calculated GFR & GFRAA in patients over 70 years has not been determined. Clinical correlation is essential. Serum or plasma urea nitroge n measurement (mass/volume)on 05-09-2022 Urea nitrogen [Mass/Vol] 12 mg/dL 7-18 [facility] Work Phone: Serum procalcitonin measurem enton 05-09-2022 Procalcitonin [Mass/Vol] 0.04 ng/mL 0.00-0.09 [facility] Work Phone: Comment on above: A procalcitonin (PCT ) level above 2.0 ng/mL on the first day of ICU admission is associated with a high risk for progression to severe sepsis and/or septic shock. A PCT level below 0.5 ng/mL on the first day of ICU admission is associated with a low risk for progression to severe and/or septic shock. Note: Concentrations <0.5 ng/mL do not exclude an infection on account of localized infections (without systemic signs) which can be associated with such low concentrations, or a systemic infection in its initial stages (<6 hours). Furthermore, increased procalcitonin can occur without infection. PCT concentrations between 0.5 and 2.0 ng/mL should be interpreted taking into account the patient's history. It is recommended to retest PCT within 6-24 hours if any concentrations <2 ng/mL are obtained. Squamous epithelial cells de tection in urine sediment by light microscopyon 05-09-2022 Epithelial cells.squamous LM Ql (Urine sed) 0 SEEN /hpf 0-5 [facility] Work Phone: [phone] Thin prep Papanicolaou smear with manual screeningon 05-09-2022 Thin prep Papanicolaou smear with manual screening 19 U/L 15-37 [facility] Work Phone: Thin prep Papanicolaou smear with manual screening 3 5-15 [facility] Work Phone: [phone] Urine blood detectionon -3 RBC Ql (U) Negative Negative [facility] Work Phone: [phone] RBC Ql (U) 0 SEEN /hpf 0-5 [facility] Work Phone: [phone] Urine clarityon 05-09-2022 Clarity (U) Clear Clear [facility] Work Phone: Urine color determinationon 05-09-2022 Color (U) Yellow Yellow [facility] Work Phone: Urine glucose detectionon Glucose Ql (U) Normal mg/dl Normal [facility] Work Phone: Urine leukocyte esterase det ection by dipstickon 05-09-2022 Leukocyte esterase Test strip Ql (U) Negative Negative [facility] Work Phone: [phone] Urine pHon 05-09-2022 pH (U) 7.0 [pH] 5.0 - 8.0 [facility] Work Phone: [phone] Urine sediment bacteria coun t by microscopy (number/high power field)on 05-09-2022 Bacteria LM.HPF (Urine sed) [#/Area] RARE /hpf None Seen [facility] Work Phone: Urine specific gravity measu rementon 05-09-2022 Specific gravity (U) [Rel density] 1.010 1.002-1.030 [facility] Work Phone: Urobilinogen Auto test strip Ql (U)on 05-09-2022 Urobilinogen Ql (U) Normal mg/dl Normal [facility] Work Phone: Absolute lymphocyte counton 04-30-2022 Lymphocytes Auto (Unsp spec) [#/Vol] 0.55 10*3/uL 0.83-4.51 [facility] Work Phone: Basophil percentageon 2021 Basophils/100 WBC (Bld) 0.6 % 0-1 [facility] Work Phone: Bilirubin [Mass/Vol] 1.20 mg/dL 0.20-1.00 [facility] Work Phone: Comment on above: For patients on eltr ombopag therapy, use of Dimension [place] TBIL is not recommended. Chloride [Moles/Vol] 103 mmol/L 98-107 [facility] Work Phone: Eosinophils/100 WBC (Bld) 3.1 % 0-5 [facility] Work Phone: Glucose [Mass/Vol] 93 mg/dL 74-106 [facility] Work Phone: Neutrophils (Bld) [#/Vol] 1.0 10*3/uL 2.0-7.7 [facility] Work Phone: Neutrophils/100 WBC (Bld) 60.5 % 47-70 [facility] Work Phone: Potassium [Moles/Vol] 4.3 mmol/L 3.5-5.1 [facility] Work Phone: Protein [Mass/Vol] 6.5 g/dL 6.4-8.2 [facility] Work Phone: Sodium [Moles/Vol] 138 mmol/L 136-145 [facility] Work Phone: WBC (Bld) [#/Vol] 1.6 10*3/uL 4.4-11.[facility] Work Phone: Blood erythrocytes count (nu mber/volume)on 04-30-2022 RBC (Bld) [#/Vol] 2.26 10*6/uL 4.6-6.2 [facility] Work Phone: Blood hemoglobin measurement (mass/volume)on 04-30-2022 Hemoglobin (Bld) [Mass/Vol] 7.8 g/dL 13.0-16.5 [facility] Work Phone: Blood lymphocytes/100 leukoc yteson 04-30-2022 Lymphocytes/100 WBC (Bld) 34.0 % 19-41 [facility] Work Phone: Blood manual differential co mment interpretation (narrative result)on 04-30-2022 Manual differential comment Javi (Bld) [Interp] See comment [facility] Work Phone: Comment on above: NEUTROPENIA NOTEDLYM PHOPENIA NOTED Blood monocytes/100 leukocyt eson 04-30-2022 Monocytes/100 WBC (Bld) 1.2 % 0-10 [facility] Work Phone: Blood platelet adequacy dete ction by light microscopyon 04-30-2022 Platelets LM Ql (Bld) MOD DEC ADEQ [facility] Work Phone: Blood platelet mean volumeon 04-30-2022 Platelet mean volume (Bld) [Entitic vol] 12.2 fL 6.2-12.0 [facility] Work Phone: Determination of erythrocyte mean corpuscular volume (MCV)on 04-30-2022 MCV (RBC) [Entitic vol] 100.4 fL 80-94 [facility] Work Phone: Hematocrit Auto (Bld) [Volum e fraction]on 04-30-2022 Hematocrit (Bld) [Volume fraction] 22.7 % 40-54 [facility] Work Phone: Laboratory - Chemistry and C hemistry - challengeon 04-30-2022 ALP [Catalytic activity/Vol] 64 U/L 45-117 [facility] Work Phone: ALT [Catalytic activity/Vol] 45 U/L 16-61 [facility] Work Phone: CO2 [Moles/Vol] 32.0 mmol/L 21.0-32.0 [facility] Work Phone: [phone] Globulin (S) [Mass/Vol] 2.6 g/dL 2.2-4.2 [facility] Work Phone: [phone] Urea nitrogen/Creatinine [Mass ratio] 18.4 mg/mg 10-20 [facility] Work Phone: [phone] Laboratory - Hematology and Cell countson 04-30-2022 Anisocytosis Ql (Bld) 2+ [facility] Work Phone: [phone] Erythrocyte distribution width (RBC) [Entitic vol] 74.4 fL 35.1-43.9 [facility] Work Phone: [phone] Erythrocyte distribution width (RBC) [Ratio] 21.2 % 11.6-14.6 [facility] Work Phone: [phone] Immature granulocytes/100 WBC (Bld) 0.600 % 0.0-0.9 [facility] Work Phone: [phone] Comment on above: IG% - Immature Granu locytes (promyelocytes, myelocytes and metamyelocytes) > 1% indicates that a LEFT SHIFT is Present. MCH (RBC) [Entitic mass] 34.5 pg 27.0-32.0 [facility] Work Phone: [phone] Nucleated RBC/100 WBC (Bld) [Ratio] 0 % 0-5 [facility] Work Phone: [phone] MCHC Auto (RBC) [Mass/Vol]on 04-30-2022 MCHC (RBC) [Mass/Vol] 34.4 g/dL 32-36 [facility] Work Phone: [phone] No Panel Informationon 04-30 Estimated Creatinine Clearance Calc 63.88 ml/min [facility] Work Phone: [phone] Estimated GFR (MDRD) Amer 139 mL/min >60 [facility] Work Phone: Comment on above: GFR Calc Estimated GFR (MDRD) Non-Af Amer 114 mL/min >60 [facility] Work Phone: Comment on above: Non- GFR Calc Platelets bldon 04-30-2022 Platelets (Bld) [#/Vol] 62 10*3/uL 150-450 [facility] Work Phone: RBC morphologyOrdered By: Dr Bradley Alfaro on 04-30-2022 RBC morphology finding Nom (Bld) N CHROM NORMAL NORM C&C [facility] Review by pathologiston 04-11 Pathologist review Javi (Unsp spec) [Interp] Reviewed [facility] Work Phone: Comment on above: Previous reported re sult: Verena slater Edited by: JEFF on 05/01/22:1248Pancytopenia.Leukopenia and Neutropenia.Severe Macrocytic anemia.Moderate ThrombocytopeniaClinical correlation necessary.Brian Turner M.D. 05/01/22 AMENDED REPORT 05/01/22 1248 PATH REV previously reported as: Verena slater Serum or plasma albumin alexander urement (mass/volume)on 04-30-2022 Albumin [Mass/Vol] 3.9 g/dL 3.2-5.0 [facility] Work Phone: Serum or plasma albumin/glob ulin mass ratioon 04-30-2022 Albumin/Globulin [Mass ratio] 1.5 {ratio} 0.9-2.4 [facility] Work Phone: Serum or plasma calcium alexander urement (mass/volume)on 04-30-2022 Calcium [Mass/Vol] 9.3 mg/dL 8.5-10.1 [facility] Work Phone: Serum or plasma creatinine m easurement (mass/volume)on 04-30-2022 Creatinine [Mass/Vol] 0.71 mg/dL 0.70-1.30 [facility] Work Phone: Comment on above: The validity of the calculated GFR & GFRAA in patients over 70 years has not been determined. Clinical correlation is essential. Serum or plasma urea nitroge n measurement (mass/volume)on 04-30-2022 Urea nitrogen [Mass/Vol] 13 mg/dL 7-18 [facility] Work Phone: [phone] Thin prep Papanicolaou smear with manual screeningon 04-30-2022 Thin prep Papanicolaou smear with manual screening 20 U/L 15-37 [facility] Work Phone: Thin prep Papanicolaou smear with manual screening 3 5-15 [facility] Work Phone: Thin prep Papanicolaou smear with manual screening 119 U/L 87-241 [facility] Work Phone: [phone] Hypochromatic red blood cell detectionon 04-17-2022 Hypochromia Ql (Bld) 1+ [facility] Work Phone: [phone] Macrocytes detectionon 04-17 Macrocytes Ql (Bld) 1+ [facility] Work Phone: [phone] Ovalocyte detectionon 2021 Ovalocytes LM Ql (Bld) 1+ [facility] Work Phone: Laboratory - Chemistry and C hemistry - challengeon 03-21-2022 Free T4 [Mass/Vol] 0.85 ng/dL 0.76-1.46 [facility] No Panel Informationon 03-21 Free Triiodothyronine (T3) pg/dL 2.5 pg/mL 2.18-3.98 [facility] Miscellaneous Test See comment [facility] Comment on above: TEST RESULT LIMITSCL L FISH Panel Specimen Type Comment: BLOOD Cells Counted Comment: 100/PROBE Cells Analyzed Comment: 100/PROBE FISH Result Comment: NORMAL CLL PANEL Interpretation Comment: The CLL interphase fluorescence in situ hybridization (FISH) panel analysis was normal. There were no cells with CCND1-IGH fusion. No extra signals or deletions of SOLITARIO, chromosome 12, 13q, or TP53 were observed. SPECIFIC FISH RESULTS: CCND1/IGH: NORMAL . nuc jayro 11q13(YMKY8b1),14q32(IGHx2)[100] SOLITARIO: NORMAL nuc jayro 11q22.3(ATMx2)[100] . 12cen: NORMAL . nuc jayro 12cen(K02H2o3)[100] . 13q: NORMAL . nuc jayro 13q14.3(DLEUx2),13q34(QCOZ9k6)[100] . TP53: NORMAL . nuc jayro 17p13.1(TP53x2)[100] This analysis is limited to abnormalities detectableby the specific probes included in the study. FISH resultsshould be interpreted within the context of a fullcytogenetic analysis and hematologic evaluation. REFERENCES:. Mireya,(2013) Adv Exp Med Biol 792:193-214.PMID#[id number] . Maldonado et al.,(2011) Clin Lab Med 31:649-658.PMID#[id number] This test was developed and its performacecharacteristics determined by [employer] ([employer]). It has not been cleared orapproved by the U.S. Food and Drug Administration. The DNAprobe vendor for this study was [employer] ([employer]).Director Review: Comment: MURPHY YOUNG, PHD, [facility] TESTING PERFORMED AT [employer]. ORIGINAL REPORT ON FILE IN LAB CONTAINS ADDITIONAL TEST SITE INFORMATION. Serum Cryoglobulins Comment None detected [facility] Comment on above: None Detected at 72 hoursThis test was developed and its performance characteristicsdetermined by [employer]. It has not been cleared orapproved by the Food and Drug Administration.Performed at: [facility] [employer] [id number] Director: Ramakrishna Lea PhD, Phone: [phone] Thyroid Stimulating Hormone (TSH) 5.00 uIU/mL 0.358-3.74 [facility] Albumin Elph [Mass/Vol]on Albumin [Mass/Vol] 4.2 g/dL 2.9-4.4 [facility] Work Phone: Erythrocyte sedimentation ra terese 03-15-2022 ESR (Bld) [Velocity] 10 mm/h 0-20 [facility] Hemoglobin in reticulocytes (mass per reticulocyte)on 03-15-2022 Hemoglobin (Reticulocytes) [Entitic mass] 37.3 pg 30-35 [facility] Work Phone: Interpretation of serum or p lasma protein pattern by immunofixation (narrative resulton 03-15-2022 Protein Fractions Immunofixation Javi [Interp] See comment [facility] Work Phone: Comment on above: MONOCLONAL IGM KAPPA #1 = 0.3 G/DLMONOCLONAL IGM KAPPA #2 = 0.4 G/DL No Panel Informationon 03-15 Addendum Document Comment . [facility] Work Phone: Comment on above: Protein electrophore sis scan will follow via computer,mail, or regulatory affairs manager delivery. Free Lambda Light Chains, Quant 18.7 mg/L 5.7-26.3 [facility] Work Phone: Immature Reticulocyte Fraction 16.10 % 3.00-15.90 [facility] Work Phone: Reticulocyte Count 1.61 % 0.5-1.5 [facility] Work Phone: Serum bidvx-3-lrnmgore measu rement by electrophoresison 03-15-2022 Alpha 1 globulin Elph [Mass/Vol] 0.2 g/dL 0.0-0.4 [facility] Work Phone: Alpha 1 globulin Elph [Mass/Vol] 0.5 g/dL 0.4-1.0 [facility] Work Phone: Serum immunoglobulin kappa l ight chains/immunoglobulin lambda light chains mass ratioon 03-15-2022 Immunoglobulin light chains.kappa/Immunoglob ulin light chains.lambda (S) [Mass ratio] 4.29 0.26-1.65 [facility] Work Phone: Comment on above: Performed at: [address] [id number] Director: Ramakrishna Lea PhD, Phone: [phone] Serum or plasma IgA measurem ent (mass/volume)on 03-15-2022 IgA [Mass/Vol] 181 mg/dL 61-437 [facility] Work Phone: Serum or plasma IgG measurem ent (mass/volume)on 03-15-2022 IgG [Mass/Vol] 607 mg/dL 603-1613 [facility] Work Phone: Serum or plasma IgM measurem ent (mass/volume)on 03-15-2022 IgM [Mass/Vol] 684 mg/dL 15-143 [facility] Work Phone: Comment on above: Results confirmed on dilution. Serum or plasma beta globuli n measurement by electrophoresis (mass/volume)on 03-15-2022 Beta globulin Elph [Mass/Vol] 0.6 g/dL 0.7-1.3 [facility] Work Phone: Serum or plasma gamma globul in measurement by electrophoresis (mass/volume)on 03-15-2022 Gamma globulin Elph [Mass/Vol] 1.1 g/dL 0.4-1.8 [facility] Work Phone: Serum or plasma immunoelectr ophoresis interpretation (nominal result)on 03-15-2022 Interpretation IEP [Interp] Comment . 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.LAMBDA APPEARS ASYMMETRICAL Serum or plasma immunoglobul in kappa light chains measurement (mass/volume)on 03-15-2022 Immunoglobulin light chains.kappa [Mass/Vol] 80.3 mg/L 3.3-19.4 [facility] Work Phone: Thin prep Papanicolaou smear with manual screeningon 03-15-2022 Thin prep Papanicolaou smear with manual screening 1.8 0.7-1.7 [facility] Work Phone: Total protein bloodon 2021 Protein [Mass/Vol] 6.6 g/dL 6.0-8.5 [facility] Work Phone: Absolute lymphocyte counton 02-14-2022 Lymphocytes Auto (Unsp spec) [#/Vol] 0.75 10*3/uL 0.83-4.51 [facility] Work Phone: Basophil percentageon 2021 Basophils/100 WBC (Bld) 0.0 % 0-1 [facility] Work Phone: Eosinophils/100 WBC (Bld) 0.9 % 0-5 [facility] Work Phone: Neutrophils (Bld) [#/Vol] 2.4 10*3/uL 2.0-7.7 [facility] Work Phone: Neutrophils/100 WBC (Bld) 70.1 % 47-70 [facility] Work Phone: WBC (Bld) [#/Vol] 3.4 10*3/uL 4.4-11.0 [facility] Work Phone: Blood erythrocytes count (nu mber/volume)on 02-14-2022 RBC (Bld) [#/Vol] 2.26 10*6/uL 4.6-6.2 [facility] Work Phone: Blood hemoglobin measurement (mass/volume)on 02-14-2022 Hemoglobin (Bld) [Mass/Vol] 8.0 g/dL 13.0-16.5 [facility] Work Phone: Blood lymphocytes/100 leukoc yteson 02-14-2022 Lymphocytes/100 WBC (Bld) 22.4 % 19-41 [facility] Work Phone: Blood monocytes/100 leukocyt eson 02-14-2022 Monocytes/100 WBC (Bld) 6.0 % 0-10 [facility] Work Phone: Blood platelet mean volumeon 02-14-2022 Platelet mean volume (Bld) [Entitic vol] 10.4 fL 6.2-12.0 [facility] Work Phone: Determination of erythrocyte mean corpuscular volume (MCV)on 02-14-2022 MCV (RBC) [Entitic vol] 105.8 fL 80-94 [facility] Work Phone: [phone] Hematocrit Auto (Bld) [Volum e fraction]on 02-14-2022 Hematocrit (Bld) [Volume fraction] 23.9 % 40-54 [facility] Work Phone: [phone] Laboratory - Hematology and Cell countson 02-14-2022 Anisocytosis Ql (Bld) 1+ [facility] Work Phone: [phone] Erythrocyte distribution width (RBC) [Entitic vol] 87.1 fL 35.1-43.9 [facility] Work Phone: [phone] Erythrocyte distribution width (RBC) [Ratio] 22.6 % 11.6-14.6 [facility] Work Phone: [phone] Immature granulocytes/100 WBC (Bld) 0.600 % 0.0-0.9 [facility] Work Phone: [phone] Comment on above: IG% - Immature Granu locytes (promyelocytes, myelocytes and metamyelocytes) > 1% indicates that a LEFT SHIFT is Present. MCH (RBC) [Entitic mass] 35.4 pg 27.0-32.0 [facility] Work Phone: [phone] Nucleated RBC/100 WBC (Bld) [Ratio] 0 % 0-5 [facility] Work Phone: [phone] MCHC Auto (RBC) [Mass/Vol]on 02-14-2022 MCHC (RBC) [Mass/Vol] 33.5 g/dL 32-36 [facility] Work Phone: [phone] Platelets bldon 02-14-2022 Platelets (Bld) [#/Vol] 155 10*3/uL 150-450 [facility] Work Phone: [phone] Laboratory - Drug toxicology on 01-09-2022 Amphetamines Ql (U) Negative <1000 ng/mL [facility] Benzodiazepines Ql (U) Negative < 200 ng/mL [facility] Cannabinoids Screen Ql (U) Negative < 50 ng/mL [facility] Cocaine Ql (U) Negative < 300 ng/mL [facility] Opiates Ql (U) Negative < 300 ng/mL [facility] Macrocytes detectionon 01-09 Macrocytes Ql (Bld) 1+ [facility] Work Phone: No Panel Informationon 01-09 Miscellaneous Test See comment [facility] Work Phone: Comment on above: TEST RESULT LIMITS T ramadol Positive Cdfqnk=651 Tramadol Conf, [place], [place] 3360 ng/mL Gfgxak=100 TESTING PERFORMED AT [facility]. ORIGINAL REPORT ON FILE IN LAB CONTAINS ADDITIONAL TEST SITE INFORMATION. Urine Barbiturates Screen Negative < 200 ng/mL [facility] Urine Drug Screen Comment [facility] Comment on above: CONFIRMATORY TESTING FOR ALL POSITIVE URINE DRUG SCREENRESULTS WILL ONLY BE SENT OUT UPON PHYSICIAN ORDER. VISTA Urine Drug Screen methods provide only preliminaryanalytical test results. A more specific alternate chemicalmethod must be used in order to obtain a confirmedanalytical result. Gas chromatography/mass spectrometery(GC/MS) is the preferred confirmatory method. Clinicalconsideration and professional judgement should be appliedto any drug of abuse test result, particularly whenpreliminary positive results are used. URINE TCA TESTING MUST BE ORDERED SEPARATELY. USE TESTMNEMONIC: [facility] Urine Methadone Screen Negative < 300 ng/mL [facility] Urine Methamphetamine-MDMA Screen Negative < 500 ng/mL [facility] Ovalocyte detectionon 2021 Ovalocytes LM Ql (Bld) [facility] Work Phone: Review by pathologiston 0 Pathologist review Javi (Unsp spec) [Interp] Reviewed [facility] Work Phone: Comment on above: Previous reported re sult: Verena slater Edited by: JEFF on 01/11/22:914Leukopenia and Macrocytic anemia.Clinical correlation necessary.Brian Turner M.D. 01/11/22 AMENDED REPORT 01/11/2215 PATH REV previously reported as: March bryon Urine phencyclidine (PCP) de tectionon 01-09-2022 Phencyclidine Ql (U) Negative < 25 ng/mL [facility] No Panel Informationon 12-25 Prostate Specific Antigen Screen 0.72 ng/mL 0.00-4.00 [facility] Comment on above: This test was perfor med using the TPSA assay method for the[employer] chemistry system. Values obtained with differentassay methods cannot be used interchangably.When changing PSA assays in the course of monitoring apatient, additional sequential testing should be carriedout to confirm baseline values. XR Abdomen Supine and Uprigh ton 09-14-2021 IMPRESSION: NO ACUTE ABDOMINAL PATHOLOGY VISUALIZED Warp Dresser: NUNO Transcribe Date/Time: Sep 14 2021 4:09P Dictated by : JOSELYN LINARES MD This examination was interpreted and the report reviewed and electronically signed by: JOSELYN LINARES MD on Sep 14 2021 4:14PM [facility] DIVISION OF RADIOLOGY * * *Final Report* * * DATE OF EXAM: Sep 14 2021 3:15PM WOX [id number] - XR ABDOMEN 1V SUPINE / PROCEDURE REASON: Prostatitis, acute * * * * Physician Interpretation * * * * Indication: Lower abdominal pain Comparison: None 2 x-rays of the abdomen are obtained. There is a non-obstructed bowel gas pattern. There is no hepatomegaly or splenomegaly. No abnormal calcifications are visualized. There are no acute osseous abnormalities. Dextroscoliosis of the lumbar spine. DIVISION OF RADIOLOGY Provider, Omar Stovall - 09/14/2021 * * *Final Report* * * DATE OF EXAM: Sep 14 2021 3:15PM WOX [id number] - XR ABDOMEN 1V SUPINE / PROCEDURE REASON: Prostatitis, acute * * * * Physician Interpretation * * * * Indication: Lower abdominal pain Comparison: None 2 x-rays of the abdomen are obtained. There is a non-obstructed bowel gas pattern. There is no hepatomegaly or splenomegaly. No abnormal calcifications are visualized. There are no acute osseous abnormalities. Dextroscoliosis of the lumbar spine. IMPRESSION IMPRESSION: NO ACUTE ABDOMINAL PATHOLOGY VISUALIZED Warp Dresser: PSCB Transcribe Date/Time: Sep 14 2021 4:09P Dictated by : JOSELYN LINARES MD This examination was interpreted and the report reviewed and electronically signed by: JOSELYN LINARES MD on Sep 14 2021 4:14PM EST [facility] Radiology Study observation (narrative) [facility] XR Abdomen Supine and Uprigh tOrdered By: [facility] Provider on 09-14-2021 [facility] BONE MARROW BIOPSY [facility] Culture, urine Bacteria identified Cx Nom (U) Culture exhibits no growth. [facility] Work Phone: Vital Signs Date Time Vital Sign Value Performing Clinician Facility 09-09-2025 12:40-0400 Body temperature 97.3 [degF] Gladys Da Silva [employer] Work Phone: [facility] 09-09-2025 12:40-0400 Diastolic blood pressure 50 mm[Hg] Gladys [employer]an [employer] Work Phone: [facility] 09-09-2025 12:40-0400 Heart rate 67 /min Gladys [employer] Work Phone: [facility] 09-09-2025 12:40-0400 Respiratory rate 16 /min Gladys [employer] Work Phone: [facility] 09-09-2025 12:40-0400 SaO2% (BldA) [Mass fraction] 95 % Gladys Suppan [employer] Work Phone: [facility] 09-09-2025 12:40-0400 Systolic blood pressure 121 mm[Hg] Gladys [employer] Work Phone: [phone] [place] [address] 09-09-2025 08:39-0400 Body height 172.72 cm Gladys Supp[employer] Work Phone: [phone] [place] [address] 09-09-2025 08:39-0400 Body mass index (BMI) [Ratio] 26.3 kg/m2 Gladys [employer] Work Phone: [phone])[phone] [place] [address] 09-09-2025 08:39-0400 Body weight 78.47 kg Gladys Supp[employer] Work Phone: [phone] [place] [address] 08-26-2025 12:01-0400 Body temperature 97.1 [degF] Gladys [employer] Work Phone: [phone])287-721957 [place] [address] 08-26-2025 12:01-0400 Diastolic blood pressure 49 mm[Hg] Gladys [employer] Work Phone: [phone])[phone] [place] [address] 08-26-2025 12:01-0400 Heart rate 73 /min Gladys [employer] Work Phone: [phone] [place] [address] 08-26-2025 12:01-0400 Respiratory rate 16 /min Gladys [employer] Work Phone: [phone])361-692957 [place] [address] 08-26-2025 12:01-0400 Systolic blood pressure 142 mm[Hg] Gladys [employer] Work Phone: [phone])[phone] [place] [address] 08-26-2025 10:13-0400 SaO2% (BldA) [Mass fraction] 95 % Gladys Supp[employer] Work Phone: [phone] [place] [address] 08-26-2025 08:34-0400 Body mass index (BMI) [Ratio] 26.3 kg/m2 Gladys Supp[employer] Work Phone: [phone])580-201357 [place] [address] 08-26-2025 08:34-0400 Body weight 78.47 kg Gladys Suppan [employer] Work Phone: [phone])940-030157 [place] [address] 08-12-2025 13:17-0400 Body temperature 97 [degF] Gladys Suppan [employer] Work Phone: [phone] [place] [address] 08-12-2025 13:17-0400 Diastolic blood pressure 44 mm[Hg] Gladys [employer] Work Phone: [phone])[phone] [place] [address] 08-12-2025 13:17-0400 Heart rate 66 /min Gladys Supp[employer] Work Phone: [phone])381-167157 [place] [address] 08-12-2025 13:17-0400 Respiratory rate 14 /min Gladys [employer] Work Phone: [phone] [place] [address] 08-12-2025 13:17-0400 SaO2% (BldA) [Mass fraction] 96 % Gladys Supp[employer] Work Phone: [phone])622-538757 [place] [address] 08-12-2025 13:17-0400 Systolic blood pressure 127 mm[Hg] Gladys [employer] Work Phone: [phone])198-706457 [place] [address] 08-12-2025 08:51-0400 Body height 172.72 cm Gladys Suppan [employer] Work Phone: [phone] [place] [address] 08-12-2025 08:51-0400 Body mass index (BMI) [Ratio] 26.3 kg/m2 Gladys Supp[employer] Work Phone: [phone] [place] [address] 08-12-2025 08:51-0400 Body weight 78.47 kg Gladys Suppan [employer] Work Phone: [phone])120-871157 [place] [address] 07-29-2025 13:23-0400 Body temperature 97.6 [degF] Gladys [employer] Work Phone: [phone])346-309457 [place] [address] 07-29-2025 13:23-0400 Diastolic blood pressure 42 mm[Hg] Gladys [employer] Work Phone: [phone])690-350092 [place] [address] 07-29-2025 13:23-0400 Heart rate 67 /min Gladys [employer] Work Phone: [phone])357-912192 [place] [address] 07-29-2025 13:23-0400 Respiratory rate 16 /min Gladys [employer] Work Phone: [phone])380-566792 [place] [address] 07-29-2025 13:23-0400 SaO2% (BldA) [Mass fraction] 95 % Gladys [employer] Work Phone: [phone])164-822357 [place] [address] 07-29-2025 13:23-0400 Systolic blood pressure 129 mm[Hg] Gladys [employer] Work Phone: [phone])625-192557 [place] [address] 07-29-2025 08:27-0400 Body height 172.72 cm Gladys [employer] Work Phone: [phone])562-970557 [place] [address] 07-29-2025 08:27-0400 Body mass index (BMI) [Ratio] 26.3 kg/m2 Gladys [employer] Work Phone: [phone])265-975757 [place] [address] 07-29-2025 08:27-0400 Body weight 78.47 kg Gladys [employer] Work Phone: [phone])084-649257 [place] [address] 07-15-2025 12:47-0400 Body temperature 97.9 [degF] Gladys [employer] Work Phone: [phone])318-173857 [place] [address] 07-15-2025 12:47-0400 Diastolic blood pressure 46 mm[Hg] Gladys [employer] Work Phone: 1(571)151-421057 [place] [address] 07-15-2025 12:47-0400 Heart rate 69 /min Gladys [employer] Work Phone: [phone])089-556957 [place] [address] 07-15-2025 12:47-0400 Respiratory rate 16 /min Gladys [employer] Work Phone: [phone])[phone] [place] [address] 07-15-2025 12:47-0400 SaO2% (BldA) [Mass fraction] 98 % Gladys [employer] Work Phone: [phone])896-060157 [place] [address] 07-15-2025 12:47-0400 Systolic blood pressure 142 mm[Hg] Gladys [employer] Work Phone: [phone])148-356657 [place] [address] 07-15-2025 08:56-0400 Body height 172.72 cm Gladys [employer] Work Phone: [phone])[phone] [place] [address] 07-15-2025 08:56-0400 Body mass index (BMI) [Ratio] 26.3 kg/m2 Gladys [employer] Work Phone: [facility] 07-15-2025 08:56-0400 Body weight 78.47 kg Gladys [employer] Work Phone: [facility] 07-01-2025 13:36-0400 Diastolic blood pressure 41 mm[Hg] Gladys [employer] Work Phone: [phone])952-489292 [place] [address] 07-01-2025 13:36-0400 Heart rate 66 /min Gladys [employer] Work Phone: [phone])[phone] [place] [address] 07-01-2025 13:36-0400 Respiratory rate 16 /min Gladys [employer] Work Phone: [facility] 07-01-2025 13:36-0400 Systolic blood pressure 126 mm[Hg] Gladys [employer]an [employer] Work Phone: [facility] 07-01-2025 12:15-0400 Body temperature 96.9 [degF] Gladys [employer] Work Phone: [facility] 07-01-2025 12:15-0400 SaO2% (BldA) [Mass fraction] 99 % Gladys [employer]an [employer] Work Phone: [facility] 07-01-2025 08:55-0400 Body height 172.72 cm Gladys Suppan [employer] Work Phone: [facility] 07-01-2025 08:55-0400 Body mass index (BMI) [Ratio] 26.3 kg/m2 Gladys [employer] Work Phone: [facility] 07-01-2025 08:55-0400 Body weight 78.47 kg Gladys [employer] Work Phone: [facility] 06-30-2025 11:14-0400 Body mass index (BMI) [Ratio] 26.64 kg/m2 Steven Akers DO Work Phone: [facility] 06-30-2025 11:14-0400 Body temperature 97.7 [degF] Steven Pinedai DO Work Phone: [facility] 06-30-2025 11:14-0400 Body weight 80.74 kg Steven Pinedai DO Work Phone: [facility] 06-30-2025 11:14-0400 Diastolic blood pressure 71 mm[Hg] Steven Pinedai DO Work Phone: [facility] 06-30-2025 11:14-0400 Heart rate 71 /min Steven Pinedai DO Work Phone: [facility] 06-30-2025 11:14-0400 SaO2% (BldA) [Mass fraction] 98 % Steven Pinedai DO Work Phone: [facility] 06-30-2025 11:14-0400 Systolic blood pressure 124 mm[Hg] Steven Pinedai DO Work Phone: [facility] 06-17-2025 12:24-0400 Body temperature 96.8 [degF] Gladys [employer]an [employer] Work Phone: [facility] [place] 06-17-2025 12:24-0400 Diastolic blood pressure 55 mm[Hg] Gladys Suppan [employer] Work Phone: [facility] 06-17-2025 12:24-0400 Heart rate 72 /min Gladys Suppan [employer] Work Phone: [facility] 06-17-2025 12:24-0400 Respiratory rate 16 /min Gladys Suppan [employer] Work Phone: [facility] 06-17-2025 12:24-0400 SaO2% (BldA) [Mass fraction] 99 % Gladys Suppan [employer] Work Phone: [facility] 06-17-2025 12:24-0400 Systolic blood pressure 136 mm[Hg] Gladys Suppan [employer] Work Phone: [facility] 06-17-2025 08:21-0400 Body height 172.72 cm Gladys Suppan [employer] Work Phone: 4(186)518-833157 [place] [address] 06-17-2025 08:21-0400 Body mass index (BMI) [Ratio] 26.3 kg/m2 Gladys Suppan [employer] Work Phone: 8(124)915-993957 [place] [address] 06-17-2025 08:21-0400 Body weight 78.47 kg Gladys Suppan [employer] Work Phone: 6(865)486-883957 [place] [address] 06-03-2025 13:30-0400 Body temperature 98.3 [degF] Gladys Suppan [employer] Work Phone: 7(049)874-094857 [place] [address] 06-03-2025 13:30-0400 Diastolic blood pressure 50 mm[Hg] Gladys Suppan [employer] Work Phone: 1(386)513-024657 [place] [address] 06-03-2025 13:30-0400 Heart rate 64 /min Gladys Suppan [employer] Work Phone: 6(962)617-831157 [place] [address] 06-03-2025 13:30-0400 Respiratory rate 16 /min Gladys Suppan [employer] Work Phone: 5(734)523-843857 [place] [address] 06-03-2025 13:30-0400 SaO2% (BldA) [Mass fraction] 99 % Gladys Suppan [employer] Work Phone: 7(813)199-890657 [place] [address] 06-03-2025 13:30-0400 Systolic blood pressure 129 mm[Hg] Gladys Suppan [employer] Work Phone: 7(144)645-752757 [place] [address] 06-03-2025 08:58-0400 Body height 172.72 cm Gladys Suppan [employer] Work Phone: 9(390)774-671557 [place] [address] 06-03-2025 08:58-0400 Body mass index (BMI) [Ratio] 25.8 kg/m2 Gladys Suppan [employer] Work Phone: 7(011)604-984957 [place] [address] 06-03-2025 08:58-0400 Body weight 77.11 kg Gladys Suppan [employer] Work Phone: 8(498)800-135557 [place] [address] 05-20-2025 13:45-0400 Body temperature 96.4 [degF] IRENA OGLESBY Work Phone: 3(984)572-787357 [place] [address] 05-20-2025 13:45-0400 Diastolic blood pressure 46 mm[Hg] NA Carter PA Work Phone: 3(561)116-865557 [place] [address] 05-20-2025 13:45-0400 Heart rate 65 /min NA Carter PA Work Phone: 9(628)221-739457 [place] [address] 05-20-2025 13:45-0400 Respiratory rate 16 /min NA Carter PA Work Phone: 7(099)056-549157 [place] [address] 05-20-2025 13:45-0400 SaO2% (BldA) [Mass fraction] 98 % NA Carter PA Work Phone: 7(471)507-868757 [place] [address] 05-20-2025 13:45-0400 Systolic blood pressure 130 mm[Hg] NA Carter PA Work Phone: 0(763)547-044257 [place] [address] 05-20-2025 08:49-0400 Body height 172.72 cm NA Carter PA Work Phone: 6(828)319-433057 [place] [address] 05-20-2025 08:49-0400 Body mass index (BMI) [Ratio] 26.6 kg/m2 NA Carter PA Work Phone: 0(696)418-354257 [place] [address] 05-20-2025 08:49-0400 Body weight 79.37 kg NA Carter PA Work Phone: 2(495)185-125857 [place] [address] 05-06-2025 13:35-0400 Body temperature 96.6 [degF] NA Carter PA Work Phone: 9(999)633-901357 [place] [address] 05-06-2025 13:35-0400 Diastolic blood pressure 62 mm[Hg] NA Carter PA Work Phone: 8(098)394-163757 [place] [address] 05-06-2025 13:35-0400 Heart rate 68 /min NA Carter PA Work Phone: 0(222)778-236457 [place] [address] 05-06-2025 13:35-0400 Respiratory rate 16 /min NA Carter PA Work Phone: 2(355)372-998757 [place] [address] 05-06-2025 13:35-0400 SaO2% (BldA) [Mass fraction] 99 % NA Carter PA Work Phone: [facility] 05-06-2025 13:35-0400 Systolic blood pressure 125 mm[Hg] NA Carter PA Work Phone: [facility] 05-06-2025 08:51-0400 Body height 172.72 cm NA Carter PA Work Phone: [facility] 05-06-2025 08:51-0400 Body mass index (BMI) [Ratio] 26.6 kg/m2 NA Carter PA Work Phone: [facility] 05-06-2025 08:51-0400 Body weight 79.37 kg NA Carter PA Work Phone: [facility] 04-22-2025 13:06-0400 Body temperature 97.3 [degF] NA Carter PA Work Phone: [facility] 04-22-2025 13:06-0400 Diastolic blood pressure 48 mm[Hg] NA Carter PA Work Phone: [facility] 04-22-2025 13:06-0400 Heart rate 66 /min NA Carter PA Work Phone: 8(082)694-372192 [place] [address] 04-22-2025 13:06-0400 Respiratory rate 16 /min NA Carter PA Work Phone: [facility] 04-22-2025 13:06-0400 SaO2% (BldA) [Mass fraction] 96 % NA Carter PA Work Phone: [facility] 04-22-2025 13:06-0400 Systolic blood pressure 130 mm[Hg] NA Carter PA Work Phone: [facility] 04-21-2025 10:30-0400 Body height 174.1 cm Steven Akers DO Work Phone: [facility] 04-21-2025 10:30-0400 Body mass index (BMI) [Ratio] 26.94 kg/m2 Steven Akers DO Work Phone: [facility] 04-21-2025 10:30-0400 Body temperature 98.1 [degF] Steven Masci DO Work Phone: [facility] 04-21-2025 10:30-0400 Body weight 81.65 kg Steven Masci DO Work Phone: [facility] 04-21-2025 10:30-0400 Diastolic blood pressure 52 mm[Hg] Steven Masci DO Work Phone: [facility] 04-21-2025 10:30-0400 Heart rate 67 /min Steven Masci DO Work Phone: [facility] 04-21-2025 10:30-0400 Respiratory rate 17 /min Steven Masci DO Work Phone: [facility] 04-21-2025 10:30-0400 SaO2% (BldA) [Mass fraction] 96 % Steven Masci DO Work Phone: [facility] 04-21-2025 10:30-0400 Systolic blood pressure 119 mm[Hg] Steven Masci DO Work Phone: [facility] 04-08-2025 13:13-0400 Body temperature 97.2 [degF] NA Carter PA Work Phone: [facility] 04-08-2025 13:13-0400 Diastolic blood pressure 51 mm[Hg] NA Carter PA Work Phone: [facility] 04-08-2025 13:13-0400 Heart rate 68 /min NA Carter PA Work Phone: [facility] 04-08-2025 13:13-0400 Respiratory rate 16 /min NA Carter PA Work Phone: [facility] 04-08-2025 13:13-0400 SaO2% (BldA) [Mass fraction] 94 % NA Carter PA Work Phone: [facility] 04-08-2025 13:13-0400 Systolic blood pressure 115 mm[Hg] NA Carter PA Work Phone: [facility] 04-08-2025 08:23-0400 Body height 172.72 cm NA Carter PA Work Phone: 6(138)104-878457 [place] [address] 04-08-2025 08:23-0400 Body mass index (BMI) [Ratio] 26.6 kg/m2 NA Carter PA Work Phone: 7(382)647-794057 [place] [address] 04-08-2025 08:23-0400 Body weight 79.37 kg NA Carter PA Work Phone: 1(869)026-606357 [place] [address] 03-25-2025 10:34-0400 Diastolic blood pressure 49 mm[Hg] NA Carter PA Work Phone: 0(414)267-935257 [place] [address] 03-25-2025 10:34-0400 Heart rate 64 /min NA Carter PA Work Phone: 4(709)070-904457 [place] [address] 03-25-2025 10:34-0400 Respiratory rate 16 /min NA Carter PA Work Phone: 5(509)009-860657 [place] [address] 03-25-2025 10:34-0400 Systolic blood pressure 141 mm[Hg] NA Carter PA Work Phone: 1(223)094-143657 [place] [address] 03-25-2025 09:01-0400 Body temperature 96.8 [degF] NA Carter PA Work Phone: 0(281)039-083457 [place] [address] 03-25-2025 09:01-0400 SaO2% (BldA) [Mass fraction] 96 % NA Carter PA Work Phone: 0(594)877-934757 [place] [address] 03-25-2025 08:26-0400 Body height 172.72 cm NA Carter PA Work Phone: 2(662)882-215657 [place] [address] 03-25-2025 08:26-0400 Body mass index (BMI) [Ratio] 26.6 kg/m2 NA Carter PA Work Phone: 9(453)311-890657 [place] [address] 03-25-2025 08:26-0400 Body weight 79.37 kg NA Carter PA Work Phone: 2(496)387-863257 [place] [address] 03-11-2025 12:42-0400 Body temperature 97.1 [degF] NA Carter PA Work Phone: 1(521)105-586957 [place] [address] 03-11-2025 12:42-0400 Diastolic blood pressure 46 mm[Hg] NA Carter PA Work Phone: 5(076)126-880292 [place] [address] 03-11-2025 12:42-0400 Heart rate 64 /min NA Carter PA Work Phone: [facility] 03-11-2025 12:42-0400 Respiratory rate 16 /min NA Carter PA Work Phone: 6(397)228-065492 [place] [address] 03-11-2025 12:42-0400 SaO2% (BldA) [Mass fraction] 98 % NA Carter PA Work Phone: 7(191)746-492749 [address] 03-11-2025 12:42-0400 Systolic blood pressure 134 mm[Hg] NA Carter PA Work Phone: 6(030)552-918557 [place] [address] 02-25-2025 12:56-0400 Body temperature 96 [degF] NA Carter PA Work Phone: 8(136)013-043757 [place] [address] 02-25-2025 12:56-0400 Diastolic blood pressure 53 mm[Hg] NA Carter PA Work Phone: 9(378)636-957457 [place] [address] 02-25-2025 12:56-0400 Heart rate 63 /min NA Carter PA Work Phone: 9(150)611-297257 [place] [address] 02-25-2025 12:56-0400 Respiratory rate 16 /min NA Carter PA Work Phone: 9(579)524-186857 [place] [address] 02-25-2025 12:56-0400 SaO2% (BldA) [Mass fraction] 100 % NA Carter PA Work Phone: 2(593)084-113492 [place] [address] 02-25-2025 12:56-0400 Systolic blood pressure 141 mm[Hg] NA Carter PA Work Phone: 6(639)130-169957 [place] [address] 02-25-2025 08:45-0400 Body height 172.72 cm NA Carter PA Work Phone: 1(195)002-613457 [place] [address] 02-25-2025 08:45-0400 Body mass index (BMI) [Ratio] 26.3 kg/m2 NA Carter PA Work Phone: [facility] 02-25-2025 08:45-0400 Body weight 78.47 kg NA Carter PA Work Phone: [facility] 02-24-2025 10:04-0400 Body mass index (BMI) [Ratio] 27.05 kg/m2 Domenicaander Garcia Work Phone: [facility] 02-24-2025 10:04-0400 Body temperature 98.1 [degF] Domenica Garcia Work Phone: [facility] 02-24-2025 10:04-0400 Body weight 80.97 kg Domenica Garcia Work Phone: [facility] 02-24-2025 10:04-0400 Diastolic blood pressure 70 mm[Hg] Domenica Garcia Work Phone: [facility] 02-24-2025 10:04-0400 Heart rate 67 /min Domenica Garcia Work Phone: [facility] 02-24-2025 10:04-0400 SaO2% (BldA) [Mass fraction] 98 % Domenica Garcia Work Phone: [facility] 02-24-2025 10:04-0400 Systolic blood pressure 133 mm[Hg] Domenica Garcia Work Phone: [facility] 02-11-2025 12:55-0400 Body temperature 97.1 [degF] NA Carter PA Work Phone: [facility] 02-11-2025 12:55-0400 Diastolic blood pressure 61 mm[Hg] NA Carter PA Work Phone: [facility] 02-11-2025 12:55-0400 Heart rate 67 /min NA Carter PA Work Phone: [facility] 02-11-2025 12:55-0400 Respiratory rate 16 /min NA Carter PA Work Phone: [facility] 02-11-2025 12:55-0400 SaO2% (BldA) [Mass fraction] 95 % NA Carter PA Work Phone: [facility] 02-11-2025 12:55-0400 Systolic blood pressure 134 mm[Hg] NA Carter PA Work Phone: 4(652)778-219492 [place] [address] 02-10-2025 18:00-0400 Heart rate 89 /min NA Carter PA Work Phone: 4(480)046-040757 [place] [address] 02-10-2025 18:00-0400 Respiratory rate 20 /min NA Carter PA Work Phone: 2(745)920-601157 [place] [address] 02-10-2025 18:00-0400 SaO2% (BldA) [Mass fraction] 91 % NA Carter PA Work Phone: 5(258)130-648257 [place] [address] 02-10-2025 16:00-0400 Diastolic blood pressure 67 mm[Hg] NA Carter PA Work Phone: 0(688)339-929757 [place] [address] 02-10-2025 16:00-0400 Systolic blood pressure 164 mm[Hg] NA Carter PA Work Phone: 3(905)822-558357 [place] [address] 02-10-2025 12:48-0400 Body mass index (BMI) [Ratio] 27.6 kg/m2 NA Carter PA Work Phone: 3(421)823-263957 [place] [address] 02-10-2025 12:48-0400 Body temperature 98.1 [degF] NA Carter PA Work Phone: 9(796)260-846957 [place] [address] 02-10-2025 12:48-0400 Body weight 82.55 kg NA Carter PA Work Phone: 0(309)720-708057 [place] [address] 01-28-2025 13:11-0400 Body temperature 96.4 [degF] NA Carter PA Work Phone: 7(860)511-263957 [place] [address] 01-28-2025 13:11-0400 Diastolic blood pressure 52 mm[Hg] NA Carter PA Work Phone: 5(455)615-213457 [place] [address] 01-28-2025 13:11-0400 Heart rate 62 /min NA Carter PA Work Phone: 0(604)311-619892 [place] [address] 01-28-2025 13:11-0400 Respiratory rate 16 /min NA Carter PA Work Phone: [facility] 01-28-2025 13:11-0400 SaO2% (BldA) [Mass fraction] 96 % NA Carter PA Work Phone: [facility] 01-28-2025 13:11-0400 Systolic blood pressure 131 mm[Hg] NA Carter PA Work Phone: [facility] 01-28-2025 08:33-0400 Body height 172.72 cm NA Carter PA Work Phone: [facility] 01-28-2025 08:33-0400 Body mass index (BMI) [Ratio] 26.6 kg/m2 NA Carter PA Work Phone: [facility] 01-28-2025 08:33-0400 Body weight 79.37 kg NA Carter PA Work Phone: [facility] 01-27-2025 11:36-0400 Body mass index (BMI) [Ratio] 27.74 kg/m2 Gladys Suppan [employer] Work Phone: [facility] 01-27-2025 11:36-0400 Body temperature 97.7 [degF] Gladys Suppan [employer] Work Phone: [facility] 01-27-2025 11:36-0400 Body weight 83.01 kg Gladys Suppan [employer] Work Phone: [facility] 01-27-2025 11:36-0400 Diastolic blood pressure 54 mm[Hg] Gladys Suppan [employer] Work Phone: [facility] 01-27-2025 11:36-0400 Heart rate 72 /min Gladys Suppan [employer] Work Phone: [facility] 01-27-2025 11:36-0400 SaO2% (BldA) [Mass fraction] 94 % Gladys Suppan [employer] Work Phone: [facility] 01-27-2025 11:36-0400 Systolic blood pressure 136 mm[Hg] Gladys Da Silva [employer] Work Phone: [facility] 01-14-2025 13:01-0500 Body temperature 97.6 [degF] NA Carter PA Work Phone: [facility] 01-14-2025 13:01-0500 Diastolic blood pressure 48 mm[Hg] NA Carter PA Work Phone: [facility] 01-14-2025 13:01-0500 Heart rate 68 /min NA Carter PA Work Phone: 7(932)050-513792 [place] [address] 01-14-2025 13:01-0500 Respiratory rate 16 /min NA Carter PA Work Phone: [facility] 01-14-2025 13:01-0500 SaO2% (BldA) [Mass fraction] 94 % NA Carter PA Work Phone: [facility] 01-14-2025 13:01-0500 Systolic blood pressure 138 mm[Hg] NA Carter PA Work Phone: [facility] 01-14-2025 08:28-0500 Body height 172.72 cm NA Carter PA Work Phone: [facility] 12-31-2024 13:34-0500 Body temperature 97.2 [degF] NA Carter PA Work Phone: [facility] 12-31-2024 13:34-0500 Diastolic blood pressure 72 mm[Hg] NA Carter PA Work Phone: [facility] 12-31-2024 13:34-0500 Heart rate 70 /min NA Carter PA Work Phone: [facility] 12-31-2024 13:34-0500 Respiratory rate 16 /min NA Carter PA Work Phone: [facility] 12-31-2024 13:34-0500 SaO2% (BldA) [Mass fraction] 97 % NA Carter PA Work Phone: [facility] 12-31-2024 13:34-0500 Systolic blood pressure 138 mm[Hg] NA Carter PA Work Phone: [facility] 12-17-2024 12:16-0500 Body temperature 97.8 [degF] NA Carter PA Work Phone: [facility] 12-17-2024 12:16-0500 Diastolic blood pressure 52 mm[Hg] NA Carter PA Work Phone: [facility] 12-17-2024 12:16-0500 Heart rate 68 /min NA Carter PA Work Phone: [facility] 12-17-2024 12:16-0500 Respiratory rate 16 /min NA Carter PA Work Phone: [facility] 12-17-2024 12:16-0500 SaO2% (BldA) [Mass fraction] 96 % NA Carter PA Work Phone: [facility] 12-17-2024 12:16-0500 Systolic blood pressure 128 mm[Hg] NA Carter PA Work Phone: [facility] 12-16-2024 11:02-0500 Body mass index (BMI) [Ratio] 27.43 kg/m2 Steven Masci DO Work Phone: [facility] 12-16-2024 11:02-0500 Body temperature 97.81 [degF] Steven Masci DO Work Phone: [facility] 12-16-2024 11:02-0500 Body weight 82.1 kg Steven Masci DO Work Phone: [facility] 12-16-2024 11:02-0500 Diastolic blood pressure 73 mm[Hg] Steven Masci DO Work Phone: [facility] 12-16-2024 11:02-0500 Heart rate 68 /min Steven Masci DO Work Phone: [facility] 12-16-2024 11:02-0500 Respiratory rate 12 /min Steven Masci DO Work Phone: [facility] 12-16-2024 11:02-0500 SaO2% (BldA) [Mass fraction] 97 % Steven Pinedai DO Work Phone: [facility] 12-16-2024 11:02-0500 Systolic blood pressure 139 mm[Hg] Steven Pinedai DO Work Phone: [facility] 12-03-2024 11:48-0500 Body temperature 96.9 [degF] NA Carter PA Work Phone: [facility] 12-03-2024 11:48-0500 Diastolic blood pressure 64 mm[Hg] NA Carter PA Work Phone: [facility] 12-03-2024 11:48-0500 Heart rate 70 /min NA Carter PA Work Phone: 3(240)299-797492 [place] [address] 12-03-2024 11:48-0500 Respiratory rate 16 /min NA Carter PA Work Phone: [facility] 12-03-2024 11:48-0500 SaO2% (BldA) [Mass fraction] 99 % NA Carter PA Work Phone: 5(936)554-379492 [place] [address] 12-03-2024 11:48-0500 Systolic blood pressure 135 mm[Hg] NA Carter PA Work Phone: [facility] 12-03-2024 08:24-0500 Body mass index (BMI) [Ratio] 25.8 kg/m2 NA Carter PA Work Phone: [facility] 12-03-2024 08:24-0500 Body weight 77.11 kg NA Carter PA Work Phone: 2(455)656-646692 [place] [address] 11-12-2024 14:04-0500 Body temperature 97.8 [degF] NA Carter PA Work Phone: [facility] 11-12-2024 14:04-0500 Diastolic blood pressure 67 mm[Hg] NA Carter PA Work Phone: [facility] 11-12-2024 14:04-0500 Heart rate 74 /min NA Carter PA Work Phone: 7(513)112-954692 [place] [address] 11-12-2024 14:04-0500 Respiratory rate 14 /min NA Carter PA Work Phone: 1(948)425-480192 [place] [address] 11-12-2024 14:04-0500 SaO2% (BldA) [Mass fraction] 96 % NA Carter PA Work Phone: 3(093)933-968492 [place] [address] 11-12-2024 14:04-0500 Systolic blood pressure 154 mm[Hg] NA Carter PA Work Phone: 6(502)642-629657 [place] [address] 10-22-2024 14:05-0500 Body temperature 97.2 [degF] NA Carter PA Work Phone: 0(947)602-074657 [place] [address] 10-22-2024 14:05-0500 Diastolic blood pressure 46 mm[Hg] NA Carter PA Work Phone: 3(636)463-445357 [place] [address] 10-22-2024 14:05-0500 Heart rate 62 /min NA Carter PA Work Phone: 7(890)169-930857 [place] [address] 10-22-2024 14:05-0500 Respiratory rate 16 /min NA Carter PA Work Phone: 4(888)154-968157 [place] [address] 10-22-2024 14:05-0500 SaO2% (BldA) [Mass fraction] 99 % NA Carter PA Work Phone: 9(032)705-654257 [place] [address] 10-22-2024 14:05-0500 Systolic blood pressure 137 mm[Hg] NA Carter PA Work Phone: 0(577)810-801557 [place] [address] 10-22-2024 09:20-0500 Body mass index (BMI) [Ratio] 26.3 kg/m2 NA Carter PA Work Phone: 6(900)999-272857 [place] [address] 10-22-2024 09:20-0500 Body weight 78.47 kg NA Carter PA Work Phone: 9(505)501-235657 [place] [address] 10-01-2024 13:20-0500 Body temperature 97 [degF] NA Carter PA Work Phone: 4(190)801-373192 [place] [address] 10-01-2024 13:20-0500 Diastolic blood pressure 53 mm[Hg] NA Carter PA Work Phone: [facility] 10-01-2024 13:20-0500 Heart rate 72 /min NA Carter PA Work Phone: [facility] 10-01-2024 13:20-0500 Respiratory rate 16 /min NA Carter PA Work Phone: [facility] 10-01-2024 13:20-0500 SaO2% (BldA) [Mass fraction] 100 % NA Carter PA Work Phone: [facility] 10-01-2024 13:20-0500 Systolic blood pressure 150 mm[Hg] NA Carter PA Work Phone: [facility] 09-30-2024 09:40-0500 Body mass index (BMI) [Ratio] 26.98 kg/m2 Treatment Wstr Work Phone: [facility] 09-30-2024 09:40-0500 Body temperature 97.11 [degF] Treatment [facility]str Work Phone: [facility] 09-30-2024 09:40-0500 Body weight 80.74 kg Treatment [facility]str Work Phone: [facility] 09-30-2024 09:40-0500 Diastolic blood pressure 64 mm[Hg] Treatment Wstr Work Phone: [facility] 09-30-2024 09:40-0500 Heart rate 78 /min Treatment [facility]str Work Phone: [facility] 09-30-2024 09:40-0500 SaO2% (BldA) [Mass fraction] 97 % Treatment [facility]str Work Phone: [facility] 09-30-2024 09:40-0500 Systolic blood pressure 145 mm[Hg] Treatment Wstr Work Phone: [facility] 09-24-2024 11:05-0500 Body temperature 97.2 [degF] NA Carter PA Work Phone: [facility] 09-24-2024 11:05-0500 Diastolic blood pressure 57 mm[Hg] NA Carter PA Work Phone: [facility] 09-24-2024 11:05-0500 Heart rate 68 /min NA Carter PA Work Phone: [facility] 09-24-2024 11:05-0500 Respiratory rate 16 /min NA Carter PA Work Phone: [facility] 09-24-2024 11:05-0500 SaO2% (BldA) [Mass fraction] 98 % NA Carter PA Work Phone: [facility] 09-24-2024 11:05-0500 Systolic blood pressure 128 mm[Hg] NA Carter PA Work Phone: [facility] 09-24-2024 08:48-0500 Body mass index (BMI) [Ratio] 26.3 kg/m2 NA Carter PA Work Phone: [facility] 09-24-2024 08:48-0500 Body weight 78.47 kg NA Carter PA Work Phone: [facility] 09-23-2024 10:46-0500 Body mass index (BMI) [Ratio] 26.83 kg/m2 Treatment [facility]str Work Phone: [facility] 09-23-2024 10:46-0500 Body temperature 97.81 [degF] Treatment Wstr Work Phone: [facility] 09-23-2024 10:46-0500 Body weight 80.29 kg Treatment [facility]str Work Phone: [facility] 09-23-2024 10:46-0500 Diastolic blood pressure 59 mm[Hg] Treatment Wstr Work Phone: [facility] 09-23-2024 10:46-0500 Heart rate 69 /min Treatment [facility]str Work Phone: [facility] 09-23-2024 10:46-0500 Respiratory rate 18 /min Treatment Wstr Work Phone: [facility] 09-23-2024 10:46-0500 SaO2% (BldA) [Mass fraction] 99 % Treatment Wstr Work Phone: [facility] 09-23-2024 10:46-0500 Systolic blood pressure 140 mm[Hg] Treatment Wstr Work Phone: [facility] 09-16-2024 09:58-0500 Body mass index (BMI) [Ratio] 26.9 kg/m2 Treatment Wstr Work Phone: [facility] 09-16-2024 09:58-0500 Body temperature 97.7 [degF] Treatment Wstr Work Phone: [facility] 09-16-2024 09:58-0500 Body weight 80.51 kg Treatment Wstr Work Phone: [facility] 09-16-2024 09:58-0500 Diastolic blood pressure 70 mm[Hg] Treatment Wstr Work Phone: [facility] 09-16-2024 09:58-0500 Heart rate 68 /min Treatment Wstr Work Phone: [facility] 09-16-2024 09:58-0500 SaO2% (BldA) [Mass fraction] 96 % Treatment Wstr Work Phone: [facility] 09-16-2024 09:58-0500 Systolic blood pressure 136 mm[Hg] Treatment Wstr Work Phone: [facility] 09-09-2024 10:00-0400 Body mass index (BMI) [Ratio] 26.9 kg/m2 Treatment Wstr Work Phone: [facility] 09-09-2024 10:00-0400 Body temperature 97.7 [degF] Treatment Wstr Work Phone: [facility] 09-09-2024 10:00-0400 Body weight 80.51 kg Treatment Wstr Work Phone: [facility] 09-09-2024 10:00-0400 Diastolic blood pressure 68 mm[Hg] Treatment Wstr Work Phone: [facility] 09-09-2024 10:00-0400 Heart rate 68 /min Treatment Wstr Work Phone: [facility] 09-09-2024 10:00-0400 Respiratory rate 18 /min Treatment Wstr Work Phone: [facility] 09-09-2024 10:00-0400 SaO2% (BldA) [Mass fraction] 97 % Treatment Wstr Work Phone: [facility] 09-09-2024 10:00-0400 Systolic blood pressure 132 mm[Hg] Treatment Wstr Work Phone: [facility] 09-02-2024 11:54-0400 Body mass index (BMI) [Ratio] 26.9 kg/m2 Treatment Wstr Work Phone: [facility] 09-02-2024 11:54-0400 Body temperature 97.81 [degF] Treatment Wstr Work Phone: [facility] 09-02-2024 11:54-0400 Body weight 80.51 kg Treatment Wstr Work Phone: [facility] 09-02-2024 11:54-0400 Diastolic blood pressure 64 mm[Hg] Treatment Wstr Work Phone: [facility] 09-02-2024 11:54-0400 Heart rate 65 /min Treatment Wstr Work Phone: [facility] 09-02-2024 11:54-0400 SaO2% (BldA) [Mass fraction] 96 % Treatment Wstr Work Phone: [facility] 09-02-2024 11:54-0400 Systolic blood pressure 136 mm[Hg] Treatment Wstr Work Phone: [facility] 08-26-2024 11:00-0400 Body temperature 97.39 [degF] Treatment Wstr Work Phone: [facility] 08-26-2024 11:00-0400 Diastolic blood pressure 72 mm[Hg] Treatment Wstr Work Phone: [facility] 08-26-2024 11:00-0400 Heart rate 63 /min Treatment Wstr Work Phone: [facility] 08-26-2024 11:00-0400 Systolic blood pressure 131 mm[Hg] Treatment Wstr Work Phone: [facility] 08-19-2024 10:34-0400 Body mass index (BMI) [Ratio] 27.05 kg/m2 Treatment Wstr Work Phone: [facility] 08-19-2024 10:34-0400 Body temperature 98.01 [degF] Treatment Wstr Work Phone: [facility] 08-19-2024 10:34-0400 Body weight 80.97 kg Treatment Wstr Work Phone: [facility] 08-19-2024 10:34-0400 Diastolic blood pressure 65 mm[Hg] Treatment Wstr Work Phone: [facility] 08-19-2024 10:34-0400 Heart rate 69 /min Treatment Wstr Work Phone: [facility] 08-19-2024 10:34-0400 SaO2% (BldA) [Mass fraction] 95 % Treatment Wstr Work Phone: [facility] 08-19-2024 10:34-0400 Systolic blood pressure 137 mm[Hg] Treatment Wstr Work Phone: [facility] 08-12-2024 10:15-0400 Body mass index (BMI) [Ratio] 27.36 kg/m2 Treatment Wstr Work Phone: [facility] 08-12-2024 10:15-0400 Body temperature 97.3 [degF] Treatment Wstr Work Phone: [facility] 08-12-2024 10:15-0400 Body weight 81.87 kg Treatment Wstr Work Phone: [facility] 08-12-2024 10:15-0400 Diastolic blood pressure 74 mm[Hg] Treatment Wstr Work Phone: [facility] 08-12-2024 10:15-0400 Heart rate 72 /min Treatment Wstr Work Phone: [facility] 08-12-2024 10:15-0400 SaO2% (BldA) [Mass fraction] 95 % Treatment Wstr Work Phone: [facility] 08-12-2024 10:15-0400 Systolic blood pressure 130 mm[Hg] Treatment Wstr Work Phone: [facility] 08-05-2024 14:09-0400 Body mass index (BMI) [Ratio] 27.96 kg/m2 Treatment Wstr Work Phone: [facility] 08-05-2024 14:09-0400 Body weight 83.69 kg Treatment Wstr Work Phone: [facility] 07-28-2024 09:59-0400 Body mass index (BMI) [Ratio] 27.66 kg/m2 Steven Masci DO Work Phone: [facility] 07-28-2024 09:59-0400 Body temperature 97.5 [degF] Steven Masci DO Work Phone: [facility] 07-28-2024 09:59-0400 Body weight 82.78 kg Steven Masci DO Work Phone: [facility] 07-28-2024 09:59-0400 Diastolic blood pressure 68 mm[Hg] Steven Masci DO Work Phone: [facility] 07-28-2024 09:59-0400 Heart rate 64 /min Steven Masci DO Work Phone: [facility] 07-28-2024 09:59-0400 SaO2% (BldA) [Mass fraction] 96 % Steven Masci DO Work Phone: [facility] 07-28-2024 09:59-0400 Systolic blood pressure 135 mm[Hg] Steven Masci DO Work Phone: [facility] 07-22-2024 10:00-0400 Body mass index (BMI) [Ratio] 27.58 kg/m2 Treatment Wstr Work Phone: [facility] 07-22-2024 10:00-0400 Body temperature 97.5 [degF] Treatment Wstr Work Phone: [facility] 07-22-2024 10:00-0400 Body weight 82.56 kg Treatment Wstr Work Phone: [facility] 07-22-2024 10:00-0400 Diastolic blood pressure 71 mm[Hg] Treatment Wstr Work Phone: [facility] 07-22-2024 10:00-0400 Heart rate 78 /min Treatment Wstr Work Phone: [facility] 07-22-2024 10:00-0400 Systolic blood pressure 133 mm[Hg] Treatment Wstr Work Phone: [facility] 07-20-2024 11:12-0400 Body mass index (BMI) [Ratio] 27.58 kg/m2 Gladys Suppan [employer] Work Phone: [facility] 07-20-2024 11:12-0400 Body weight 82.56 kg Gladys Suppan [employer] Work Phone: [facility] 07-20-2024 11:12-0400 Diastolic blood pressure 64 mm[Hg] Gladys Suppan [employer] Work Phone: [facility] 07-20-2024 11:12-0400 Heart rate 67 /min Gladys Suppan [employer] Work Phone: [facility] 07-20-2024 11:12-0400 Respiratory rate 18 /min Gladys Suppan [employer] Work Phone: [facility] 07-20-2024 11:12-0400 SaO2% (BldA) [Mass fraction] 96 % Gladys Suppan [employer] Work Phone: [facility] 07-20-2024 11:12-0400 Systolic blood pressure 128 mm[Hg] Gladys Suppan [employer] Work Phone: [facility] 07-15-2024 11:08-0400 Body mass index (BMI) [Ratio] 27.13 kg/m2 Treatment Wstr Work Phone: [facility] 07-15-2024 11:08-0400 Body temperature 98.29 [degF] Treatment Wstr Work Phone: [facility] 07-15-2024 11:08-0400 Body weight 81.19 kg Treatment Wstr Work Phone: [facility] 07-15-2024 11:08-0400 Diastolic blood pressure 65 mm[Hg] Treatment Wstr Work Phone: [facility] 07-15-2024 11:08-0400 Heart rate 67 /min Treatment Wstr Work Phone: [facility] 07-15-2024 11:08-0400 SaO2% (BldA) [Mass fraction] 97 % Treatment Wstr Work Phone: [facility] 07-15-2024 11:08-0400 Systolic blood pressure 152 mm[Hg] Treatment Wstr Work Phone: [facility] 07-08-2024 10:00-0400 Body mass index (BMI) [Ratio] 27.13 kg/m2 Treatment Wstr Work Phone: [facility] 07-08-2024 10:00-0400 Body temperature 98.2 [degF] Treatment Wstr Work Phone: [facility] 07-08-2024 10:00-0400 Body weight 81.19 kg Treatment Wstr Work Phone: [facility] 07-08-2024 10:00-0400 Diastolic blood pressure 75 mm[Hg] Treatment Wstr Work Phone: [facility] 07-08-2024 10:00-0400 Heart rate 69 /min Treatment Wstr Work Phone: [facility] 07-08-2024 10:00-0400 Respiratory rate 18 /min Treatment Wstr Work Phone: [facility] 07-08-2024 10:00-0400 SaO2% (BldA) [Mass fraction] 98 % Treatment Wstr Work Phone: [facility] 07-08-2024 10:00-0400 Systolic blood pressure 130 mm[Hg] Treatment Wstr Work Phone: [facility] 07-01-2024 14:43-0400 Body mass index (BMI) [Ratio] 26.98 kg/m2 Treatment Wstr Work Phone: [facility] 07-01-2024 14:43-0400 Body temperature 97.5 [degF] Treatment Wstr Work Phone: [facility] 07-01-2024 14:43-0400 Body weight 80.74 kg Treatment Wstr Work Phone: [facility] 07-01-2024 14:43-0400 Diastolic blood pressure 68 mm[Hg] Treatment Wstr Work Phone: [facility] 07-01-2024 14:43-0400 Heart rate 75 /min Treatment Wstr Work Phone: [facility] 07-01-2024 14:43-0400 Respiratory rate 16 /min Treatment Wstr Work Phone: [facility] 07-01-2024 14:43-0400 Systolic blood pressure 142 mm[Hg] Treatment Wstr Work Phone: [facility] 06-24-2024 09:33-0400 Body mass index (BMI) [Ratio] 26.83 kg/m2 Treatment Wstr Work Phone: [facility] 06-24-2024 09:33-0400 Body temperature 97.39 [degF] Treatment Wstr Work Phone: [facility] 06-24-2024 09:33-0400 Body weight 80.29 kg Treatment Wstr Work Phone: [facility] 06-24-2024 09:33-0400 Diastolic blood pressure 67 mm[Hg] Treatment Wstr Work Phone: [facility] 06-24-2024 09:33-0400 Heart rate 75 /min Treatment Wstr Work Phone: [facility] 06-24-2024 09:33-0400 SaO2% (BldA) [Mass fraction] 98 % Treatment Wstr Work Phone: [facility] 06-24-2024 09:33-0400 Systolic blood pressure 132 mm[Hg] Treatment Wstr Work Phone: [facility] 06-17-2024 09:53-0400 Body temperature 97.9 [degF] Treatment Wstr Work Phone: [facility] 06-17-2024 09:53-0400 Diastolic blood pressure 71 mm[Hg] Treatment Wstr Work Phone: [facility] 06-17-2024 09:53-0400 Heart rate 68 /min Treatment Wstr Work Phone: [facility] 06-17-2024 09:53-0400 SaO2% (BldA) [Mass fraction] 97 % Treatment Wstr Work Phone: [facility] 06-17-2024 09:53-0400 Systolic blood pressure 128 mm[Hg] Treatment Wstr Work Phone: [facility] 06-09-2024 10:13-0400 Body mass index (BMI) [Ratio] 26.98 kg/m2 Treatment Wstr Work Phone: [facility] 06-09-2024 10:13-0400 Body temperature 97.59 [degF] Treatment Wstr Work Phone: [facility] 06-09-2024 10:13-0400 Body weight 80.74 kg Treatment Wstr Work Phone: [facility] 06-09-2024 10:13-0400 Diastolic blood pressure 69 mm[Hg] Treatment Wstr Work Phone: [facility] 06-09-2024 10:13-0400 Heart rate 73 /min Treatment Wstr Work Phone: [facility] 06-09-2024 10:13-0400 Systolic blood pressure 146 mm[Hg] Treatment Wstr Work Phone: [facility] 06-03-2024 09:11-0400 Body mass index (BMI) [Ratio] 27.28 kg/m2 Treatment Wstr Work Phone: [facility] 06-03-2024 09:11-0400 Body temperature 97.9 [degF] Treatment Wstr Work Phone: [facility] 06-03-2024 09:11-0400 Body weight 81.65 kg Treatment Wstr Work Phone: [facility] 06-03-2024 09:11-0400 Diastolic blood pressure 70 mm[Hg] Treatment Wstr Work Phone: [facility] 06-03-2024 09:11-0400 Heart rate 71 /min Treatment Wstr Work Phone: [facility] 06-03-2024 09:11-0400 SaO2% (BldA) [Mass fraction] 97 % Treatment Wstr Work Phone: [facility] 06-03-2024 09:11-0400 Systolic blood pressure 145 mm[Hg] Treatment Wstr Work Phone: [facility] 05-27-2024 10:00-0400 Body mass index (BMI) [Ratio] 26.9 kg/m2 Treatment Wstr Work Phone: [facility] 05-27-2024 10:00-0400 Body temperature 98.4 [degF] Treatment Wstr Work Phone: [facility] 05-27-2024 10:00-0400 Body weight 80.51 kg Treatment Wstr Work Phone: [facility] 05-27-2024 10:00-0400 Diastolic blood pressure 48 mm[Hg] Treatment Wstr Work Phone: [facility] 05-27-2024 10:00-0400 Heart rate 67 /min Treatment Wstr Work Phone: [facility] 05-27-2024 10:00-0400 SaO2% (BldA) [Mass fraction] 99 % Treatment Wstr Work Phone: [facility] 05-27-2024 10:00-0400 Systolic blood pressure 124 mm[Hg] Treatment Wstr Work Phone: [facility] 05-20-2024 10:22-0400 Body mass index (BMI) [Ratio] 27.05 kg/m2 Treatment Wstr Work Phone: [facility] 05-20-2024 10:22-0400 Body temperature 98.4 [degF] Treatment Wstr Work Phone: [facility] 05-20-2024 10:22-0400 Body weight 80.97 kg Treatment Wstr Work Phone: [facility] 05-20-2024 10:22-0400 Diastolic blood pressure 67 mm[Hg] Treatment Wstr Work Phone: [facility] 05-20-2024 10:22-0400 Heart rate 66 /min Treatment Wstr Work Phone: [facility] 05-20-2024 10:22-0400 Respiratory rate 16 /min Treatment Wstr Work Phone: [facility] 05-20-2024 10:22-0400 Systolic blood pressure 137 mm[Hg] Treatment Wstr Work Phone: [facility] 05-12-2024 13:15-0400 Body mass index (BMI) [Ratio] 26.6 kg/m2 Treatment Wstr Work Phone: [facility] 05-12-2024 13:15-0400 Body temperature 97.81 [degF] Treatment Wstr Work Phone: [facility] 05-12-2024 13:15-0400 Body weight 79.61 kg Treatment Wstr Work Phone: [facility] 05-12-2024 13:15-0400 Diastolic blood pressure 59 mm[Hg] Treatment Wstr Work Phone: [facility] 05-12-2024 13:15-0400 Heart rate 71 /min Treatment Wstr Work Phone: [facility] 05-12-2024 13:15-0400 SaO2% (BldA) [Mass fraction] 95 % Treatment Wstr Work Phone: [facility] 05-12-2024 13:15-0400 Systolic blood pressure 129 mm[Hg] Treatment Wstr Work Phone: [facility] 05-06-2024 09:11-0400 Body mass index (BMI) [Ratio] 26.37 kg/m2 Treatment Wstr Work Phone: [facility] 05-06-2024 09:11-0400 Body temperature 97.7 [degF] Treatment Wstr Work Phone: [facility] 05-06-2024 09:11-0400 Body weight 78.93 kg Treatment Wstr Work Phone: [facility] 05-06-2024 09:11-0400 Diastolic blood pressure 62 mm[Hg] Treatment Wstr Work Phone: [facility] 05-06-2024 09:11-0400 Heart rate 67 /min Treatment Wstr Work Phone: [facility] 05-06-2024 09:11-0400 SaO2% (BldA) [Mass fraction] 96 % Treatment Wstr Work Phone: [facility] 05-06-2024 09:11-0400 Systolic blood pressure 116 mm[Hg] Treatment Wstr Work Phone: [facility] 04-29-2024 09:15-0400 Body mass index (BMI) [Ratio] 26.37 kg/m2 Treatment Wstr Work Phone: [facility] 04-29-2024 09:15-0400 Body temperature 97.81 [degF] Treatment Wstr Work Phone: [facility] 04-29-2024 09:15-0400 Body weight 78.93 kg Treatment Wstr Work Phone: [facility] 04-29-2024 09:15-0400 Diastolic blood pressure 68 mm[Hg] Treatment Wstr Work Phone: [facility] 04-29-2024 09:15-0400 Heart rate 69 /min Treatment Wstr Work Phone: [facility] 04-29-2024 09:15-0400 SaO2% (BldA) [Mass fraction] 94 % Treatment Wstr Work Phone: [facility] 04-29-2024 09:15-0400 Systolic blood pressure 131 mm[Hg] Treatment Wstr Work Phone: [facility] 04-15-2024 10:05-0400 Body mass index (BMI) [Ratio] 26.07 kg/m2 Treatment Wstr Work Phone: [facility] 04-15-2024 10:05-0400 Body temperature 98.49 [degF] Treatment Wstr Work Phone: [facility] 04-15-2024 10:05-0400 Body weight 78.02 kg Treatment Wstr Work Phone: [facility] 04-15-2024 10:05-0400 Diastolic blood pressure 60 mm[Hg] Treatment Wstr Work Phone: [facility] 04-15-2024 10:05-0400 Heart rate 70 /min Treatment Wstr Work Phone: [facility] 04-15-2024 10:05-0400 Respiratory rate 16 /min Treatment Wstr Work Phone: [facility] 04-15-2024 10:05-0400 SaO2% (BldA) [Mass fraction] 91 % Treatment Wstr Work Phone: [facility] 04-15-2024 10:05-0400 Systolic blood pressure 132 mm[Hg] Treatment Wstr Work Phone: [facility] 04-08-2024 10:23-0400 Body mass index (BMI) [Ratio] 26.6 kg/m2 Treatment Wstr Work Phone: [facility] 04-08-2024 10:23-0400 Body temperature 97.39 [degF] Treatment Wstr Work Phone: [facility] 04-08-2024 10:23-0400 Body weight 79.61 kg Treatment Wstr Work Phone: [facility] 04-08-2024 10:23-0400 Diastolic blood pressure 73 mm[Hg] Treatment Wstr Work Phone: [facility] 04-08-2024 10:23-0400 Heart rate 71 /min Treatment Wstr Work Phone: [facility] 04-08-2024 10:23-0400 SaO2% (BldA) [Mass fraction] 98 % Treatment Wstr Work Phone: [facility] 04-08-2024 10:23-0400 Systolic blood pressure 149 mm[Hg] Treatment Wstr Work Phone: [facility] 04-01-2024 10:15-0400 Body mass index (BMI) [Ratio] 26.52 kg/m2 Treatment Wstr Work Phone: [facility] 04-01-2024 10:15-0400 Body temperature 98.6 [degF] Treatment Wstr Work Phone: [facility] 04-01-2024 10:15-0400 Body weight 79.38 kg Treatment Wstr Work Phone: [facility] 04-01-2024 10:15-0400 Diastolic blood pressure 64 mm[Hg] Treatment Wstr Work Phone: [facility] 04-01-2024 10:15-0400 Heart rate 71 /min Treatment Wstr Work Phone: [facility] 04-01-2024 10:15-0400 SaO2% (BldA) [Mass fraction] 98 % Treatment Wstr Work Phone: [facility] 04-01-2024 10:15-0400 Systolic blood pressure 126 mm[Hg] Treatment Wstr Work Phone: [facility] 03-25-2024 10:02-0400 Body mass index (BMI) [Ratio] 26.07 kg/m2 Treatment Wstr Work Phone: [facility] 03-25-2024 10:02-0400 Body temperature 97.59 [degF] Treatment Wstr Work Phone: [facility] 03-25-2024 10:02-0400 Body weight 78.02 kg Treatment Wstr Work Phone: [facility] 03-25-2024 10:02-0400 Diastolic blood pressure 59 mm[Hg] Treatment Wstr Work Phone: [facility] 03-25-2024 10:02-0400 Heart rate 74 /min Treatment Wstr Work Phone: [facility] 03-25-2024 10:02-0400 Respiratory rate 16 /min Treatment Wstr Work Phone: [facility] 03-25-2024 10:02-0400 SaO2% (BldA) [Mass fraction] 96 % Treatment Wstr Work Phone: [facility] 03-25-2024 10:02-0400 Systolic blood pressure 124 mm[Hg] Treatment Wstr Work Phone: [facility] 03-22-2024 13:05-0400 Body temperature 96.8 [degF] PA NA Carter PA Work Phone: [facility] 03-22-2024 13:05-0400 Diastolic blood pressure 53 mm[Hg] PA NA Carter PA Work Phone: [facility] 03-22-2024 13:05-0400 Heart rate 64 /min PA NA Carter PA Work Phone: [facility] 03-22-2024 13:05-0400 Respiratory rate 16 /min PA NA Carter PA Work Phone: [facility] 03-22-2024 13:05-0400 SaO2% (BldA) [Mass fraction] 99 % PA NA Carter PA Work Phone: [facility] 03-22-2024 13:05-0400 Systolic blood pressure 133 mm[Hg] PA NA Carter PA Work Phone: [facility] 03-22-2024 07:53-0400 Body height 173.99 cm PA NA Carter PA Work Phone: [facility] 03-22-2024 07:53-0400 Body mass index (BMI) [Ratio] 25.4 kg/m2 PA IRENA Carter PA Work Phone: [facility] 03-22-2024 07:53-0400 Body weight 77.11 kg PA IRENA Carter PA Work Phone: [facility] 03-19-2024 13:33-0400 Body mass index (BMI) [Ratio] 26.37 kg/m2 Treatment Wstr Work Phone: [facility] 03-19-2024 13:33-0400 Body temperature 98.4 [degF] Treatment Wstr Work Phone: [facility] 03-19-2024 13:33-0400 Body weight 78.93 kg Treatment Wstr Work Phone: [facility] 03-19-2024 13:33-0400 Diastolic blood pressure 68 mm[Hg] Treatment Wstr Work Phone: [facility] 03-19-2024 13:33-0400 Heart rate 68 /min Treatment Wstr Work Phone: [facility] 03-19-2024 13:33-0400 Respiratory rate 16 /min Treatment Wstr Work Phone: [facility] 03-19-2024 13:33-0400 SaO2% (BldA) [Mass fraction] 97 % Treatment Wstr Work Phone: [facility] 03-19-2024 13:33-0400 Systolic blood pressure 130 mm[Hg] Treatment Wstr Work Phone: [facility] 03-11-2024 13:35-0400 Body mass index (BMI) [Ratio] 26.52 kg/m2 Treatment Wstr Work Phone: [facility] 03-11-2024 13:35-0400 Body temperature 98.1 [degF] Treatment Wstr Work Phone: [facility] 03-11-2024 13:35-0400 Body weight 79.38 kg Treatment Wstr Work Phone: [facility] 03-11-2024 13:35-0400 Diastolic blood pressure 64 mm[Hg] Treatment Wstr Work Phone: [facility] 03-11-2024 13:35-0400 Heart rate 70 /min Treatment Wstr Work Phone: [facility] 03-11-2024 13:35-0400 SaO2% (BldA) [Mass fraction] 98 % Treatment Wstr Work Phone: [facility] 03-11-2024 13:35-0400 Systolic blood pressure 137 mm[Hg] Treatment Wstr Work Phone: [facility] 03-05-2024 13:16-0400 Body temperature 97.8 [degF] PA NA Carter PA Work Phone: [facility] 03-05-2024 13:16-0400 Diastolic blood pressure 55 mm[Hg] PA NA Carter PA Work Phone: [facility] 03-05-2024 13:16-0400 Heart rate 67 /min PA NA Carter PA Work Phone: [facility] 03-05-2024 13:16-0400 Respiratory rate 16 /min PA NA Carter PA Work Phone: [facility] 03-05-2024 13:16-0400 Systolic blood pressure 146 mm[Hg] PA NA Carter PA Work Phone: [facility] 03-05-2024 12:16-0400 SaO2% (BldA) [Mass fraction] 97 % PA NA Carter PA Work Phone: [facility] 03-05-2024 09:12-0400 Body height 172.72 cm PA NA Carter PA Work Phone: [facility] 03-05-2024 09:12-0400 Body mass index (BMI) [Ratio] 25.8 kg/m2 PA NA Carter PA Work Phone: [facility] 03-05-2024 09:12-0400 Body weight 77.11 kg PA NA Carter PA Work Phone: [facility] 03-04-2024 09:18-0400 Body mass index (BMI) [Ratio] 26.52 kg/m2 Treatment Wstr Work Phone: [facility] 03-04-2024 09:18-0400 Body temperature 97.5 [degF] Treatment Wstr Work Phone: [facility] 03-04-2024 09:18-0400 Body weight 79.38 kg Treatment Wstr Work Phone: [facility] 03-04-2024 09:18-0400 Diastolic blood pressure 65 mm[Hg] Treatment Wstr Work Phone: [facility] 03-04-2024 09:18-0400 Heart rate 78 /min Treatment Wstr Work Phone: [facility] 03-04-2024 09:18-0400 Respiratory rate 18 /min Treatment Wstr Work Phone: [facility] 03-04-2024 09:18-0400 SaO2% (BldA) [Mass fraction] 97 % Treatment Wstr Work Phone: [facility] 03-04-2024 09:18-0400 Systolic blood pressure 137 mm[Hg] Treatment Wstr Work Phone: [facility] 02-26-2024 13:05-0400 Body temperature 97.81 [degF] Treatment Wstr Work Phone: [facility] 02-26-2024 13:05-0400 Body weight 79.61 kg Treatment Wstr Work Phone: [facility] 02-26-2024 13:05-0400 Heart rate 69 /min Treatment Wstr Work Phone: [facility] 02-26-2024 13:05-0400 SaO2% (BldA) [Mass fraction] 98 % Treatment Wstr Work Phone: [facility] 02-20-2024 13:39-0400 Body temperature 97 [degF] MENDEL OGLESBY Work Phone: [facility] 02-20-2024 13:39-0400 Diastolic blood pressure 53 mm[Hg] PA NA Carter PA Work Phone: [facility] 02-20-2024 13:39-0400 Heart rate 67 /min PA NA Carter PA Work Phone: [facility] 02-20-2024 13:39-0400 Respiratory rate 16 /min PA NA Carter PA Work Phone: [facility] 02-20-2024 13:39-0400 SaO2% (BldA) [Mass fraction] 97 % PA NA Carter PA Work Phone: [facility] 02-20-2024 13:39-0400 Systolic blood pressure 152 mm[Hg] PA NA Carter PA Work Phone: [facility] 02-20-2024 08:18-0400 Body height 172.72 cm PA NA Carter PA Work Phone: [facility] 02-20-2024 08:18-0400 Body mass index (BMI) [Ratio] 25.8 kg/m2 PA NA Carter PA Work Phone: [facility] 02-20-2024 08:18-0400 Body weight 77.11 kg PA NA Carter PA Work Phone: [facility] 02-19-2024 13:09-0400 Body temperature 97.81 [degF] Treatment Wstr Work Phone: [facility] 02-19-2024 13:09-0400 Body weight 79.38 kg Treatment Wstr Work Phone: [facility] 02-19-2024 13:09-0400 Diastolic blood pressure 73 mm[Hg] Treatment Wstr Work Phone: [facility] 02-19-2024 13:09-0400 Heart rate 69 /min Treatment Wstr Work Phone: [facility] 02-19-2024 13:09-0400 Respiratory rate 16 /min Treatment Wstr Work Phone: [facility] 02-19-2024 13:09-0400 Systolic blood pressure 130 mm[Hg] Treatment Wstr Work Phone: [facility] 02-12-2024 10:00-0400 Body temperature 97.9 [degF] Treatment Wstr Work Phone: [facility] 02-12-2024 10:00-0400 Body weight 79.83 kg Treatment Wstr Work Phone: [facility] 02-12-2024 10:00-0400 Diastolic blood pressure 70 mm[Hg] Treatment Wstr Work Phone: [facility] 02-12-2024 10:00-0400 Heart rate 71 /min Treatment Wstr Work Phone: [facility] 02-12-2024 10:00-0400 Systolic blood pressure 132 mm[Hg] Treatment Wstr Work Phone: [facility] 01-30-2024 13:57-0400 Body temperature 97.7 [degF] PA NA Carter PA Work Phone: [facility] 01-30-2024 13:57-0400 Diastolic blood pressure 56 mm[Hg] PA NA Carter PA Work Phone: [facility] 01-30-2024 13:57-0400 Heart rate 67 /min PA NA Carter PA Work Phone: [facility] 01-30-2024 13:57-0400 Respiratory rate 16 /min PA NA Carter PA Work Phone: [facility] 01-30-2024 13:57-0400 SaO2% (BldA) [Mass fraction] 96 % PA NA Carter PA Work Phone: [facility] 01-30-2024 13:57-0400 Systolic blood pressure 149 mm[Hg] PA NA Carter PA Work Phone: [facility] 01-30-2024 09:25-0400 Body height 172.72 cm PA NA Carter PA Work Phone: [facility] 01-30-2024 09:25-0400 Body mass index (BMI) [Ratio] 25.8 kg/m2 PA NA Carter PA Work Phone: [facility] 01-30-2024 09:25-0400 Body weight 77.11 kg PA NA Carter PA Work Phone: [facility] 01-29-2024 09:59-0400 Body height 173 cm Steven Pinedai DO Work Phone: [facility] 01-29-2024 09:59-0400 Body temperature 98.29 [degF] Steven Pinedai DO Work Phone: [facility] 01-29-2024 09:59-0400 Body weight 80.06 kg Steven Masci DO Work Phone: [facility] 01-29-2024 09:59-0400 Diastolic blood pressure 88 mm[Hg] Steven Miriami DO Work Phone: [facility] 01-29-2024 09:59-0400 Heart rate 73 /min Steven Miriami DO Work Phone: [facility] 01-29-2024 09:59-0400 SaO2% (BldA) [Mass fraction] 98 % Steven Miriami DO Work Phone: [facility] 01-29-2024 09:59-0400 Systolic blood pressure 130 mm[Hg] Steven Masci DO Work Phone: [facility] 01-15-2024 11:22-0500 Body weight 78.02 kg NA Carter PA-C Work Phone: [facility] 01-15-2024 11:22-0500 Diastolic blood pressure 60 mm[Hg] NA Carter PA-C Work Phone: [facility] 01-15-2024 11:22-0500 Heart rate 72 /min NA Carter PA-C Work Phone: [facility] 01-15-2024 11:22-0500 Respiratory rate 16 /min NA Carter PA-C Work Phone: [facility] 01-15-2024 11:22-0500 SaO2% (BldA) [Mass fraction] 97 % NA Carter PA-C Work Phone: [facility] 01-15-2024 11:22-0500 Systolic blood pressure 130 mm[Hg] NA Carter PA-C Work Phone: [facility] 01-12-2024 10:56-0500 Body mass index (BMI) [Ratio] 26.3 kg/m2 PA NA Carter PA Work Phone: [facility] 01-12-2024 10:56-0500 Body weight 78.47 kg PA NA Carter PA Work Phone: [facility] 01-12-2024 10:56-0500 Diastolic blood pressure 59 mm[Hg] PA NA Carter PA Work Phone: [facility] 01-12-2024 10:56-0500 Heart rate 66 /min PA NA Carter PA Work Phone: [facility] 01-12-2024 10:56-0500 Respiratory rate 18 /min PA NA Carter PA Work Phone: [facility] 01-12-2024 10:56-0500 Systolic blood pressure 115 mm[Hg] PA NA Carter PA Work Phone: [facility] 01-08-2024 10:33-0500 Body temperature 98.29 [degF] Injection Wstr Work Phone: [facility] 01-08-2024 10:33-0500 Body weight 78.47 kg Injection Wstr Work Phone: [facility] 01-08-2024 10:33-0500 Diastolic blood pressure 76 mm[Hg] Injection Wstr Work Phone: [facility] 01-08-2024 10:33-0500 Heart rate 71 /min Injection Wstr Work Phone: [facility] 01-08-2024 10:33-0500 Respiratory rate 12 /min Injection Wstr Work Phone: [facility] 01-08-2024 10:33-0500 SaO2% (BldA) [Mass fraction] 96 % Injection Wstr Work Phone: [facility] 01-08-2024 10:33-0500 Systolic blood pressure 152 mm[Hg] Injection Wstr Work Phone: [facility] 01-02-2024 13:43-0500 Body temperature 97.2 [degF] [facility] 01-02-2024 13:43-0500 Diastolic blood pressure 67 mm[Hg] [facility] 01-02-2024 13:43-0500 Heart rate 57 /min [facility] 01-02-2024 13:43-0500 Respiratory rate 16 /min [facility] 01-02-2024 13:43-0500 SaO2% (BldA) [Mass fraction] 95 % [facility] 01-02-2024 13:43-0500 Systolic blood pressure 142 mm[Hg] [facility] 01-02-2024 08:50-0500 Body height 172.72 cm [facility] 12-12-2023 12:39-0500 Body temperature 98.6 [degF] [facility] 12-12-2023 12:39-0500 Diastolic blood pressure 57 mm[Hg] [facility] 12-12-2023 12:39-0500 Heart rate 62 /min [facility] 12-12-2023 12:39-0500 Respiratory rate 16 /min [facility] 12-12-2023 12:39-0500 SaO2% (BldA) [Mass fraction] 98 % [facility] 12-12-2023 12:39-0500 Systolic blood pressure 141 mm[Hg] [facility] 12-12-2023 10:41-0500 Body height 172.72 cm [facility] 12-12-2023 10:41-0500 Body mass index (BMI) [Ratio] 25.8 kg/m2 [facility] 12-12-2023 10:41-0500 Body weight 77.11 kg [facility] 11-28-2023 13:59-0500 Body temperature 97.8 [degF] [facility] 11-28-2023 13:59-0500 Diastolic blood pressure 51 mm[Hg] [facility] 11-28-2023 13:59-0500 Heart rate 65 /min [facility] 11-28-2023 13:59-0500 Respiratory rate 16 /min [facility] 11-28-2023 13:59-0500 SaO2% (BldA) [Mass fraction] 97 % [facility] 11-28-2023 13:59-0500 Systolic blood pressure 133 mm[Hg] [facility] 11-28-2023 11:20-0500 Body height 172.72 cm [facility] 11-28-2023 11:20-0500 Body mass index (BMI) [Ratio] 26.4 kg/m2 [facility] 11-28-2023 11:20-0500 Body weight 78.92 kg [facility] 11-14-2023 13:54-0500 Body temperature 97.7 [degF] [facility] 11-14-2023 13:54-0500 Diastolic blood pressure 49 mm[Hg] [facility] 11-14-2023 13:54-0500 Heart rate 68 /min [facility] 11-14-2023 13:54-0500 Respiratory rate 16 /min [facility] 11-14-2023 13:54-0500 Systolic blood pressure 121 mm[Hg] [facility] 11-14-2023 13:10-0500 SaO2% (BldA) [Mass fraction] 98 % [facility] 11-14-2023 11:17-0500 Body height 172.72 cm [facility] 10-17-2023 12:55-0500 Body temperature 98.1 [degF] [facility] 10-17-2023 12:55-0500 Diastolic blood pressure 69 mm[Hg] [facility] 10-17-2023 12:55-0500 Heart rate 63 /min [facility] 10-17-2023 12:55-0500 Respiratory rate 16 /min [facility] 10-17-2023 12:55-0500 SaO2% (BldA) [Mass fraction] 99 % [facility] 10-17-2023 12:55-0500 Systolic blood pressure 154 mm[Hg] [facility] 10-17-2023 08:38-0500 Body mass index (BMI) [Ratio] 25.8 kg/m2 [facility] 10-17-2023 08:38-0500 Body weight 77.11 kg [facility] 09-25-2023 10:58-0500 Body temperature 98.01 [degF] Injection Wstr Work Phone: [facility] 09-25-2023 10:58-0500 Body weight 76.66 kg Injection Wstr Work Phone: [facility] 09-25-2023 10:58-0500 Diastolic blood pressure 73 mm[Hg] Injection Wstr Work Phone: [facility] 09-25-2023 10:58-0500 Heart rate 62 /min Injection Wstr Work Phone: [facility] 09-25-2023 10:58-0500 Systolic blood pressure 149 mm[Hg] Injection Wstr Work Phone: [facility] 09-19-2023 14:06-0500 Body temperature 98.2 [degF] [facility] 09-19-2023 14:06-0500 Diastolic blood pressure 54 mm[Hg] [facility] 09-19-2023 14:06-0500 Heart rate 65 /min [facility] 09-19-2023 14:06-0500 Respiratory rate 16 /min [facility] 09-19-2023 14:06-0500 SaO2% (BldA) [Mass fraction] 97 % [facility] 09-19-2023 14:06-0500 Systolic blood pressure 136 mm[Hg] [facility] 09-19-2023 11:37-0500 Body height 172.72 cm [facility] 09-19-2023 11:37-0500 Body mass index (BMI) [Ratio] 25.8 kg/m2 [facility] 09-19-2023 11:37-0500 Body weight 77.11 kg [facility] 09-04-2023 11:34-0400 Body temperature 98.01 [degF] Injection Wstr Work Phone: [facility] 09-04-2023 11:34-0400 Body weight 78.02 kg Injection Wstr Work Phone: [facility] 09-04-2023 11:34-0400 Diastolic blood pressure 69 mm[Hg] Injection Wstr Work Phone: [facility] 09-04-2023 11:34-0400 Heart rate 71 /min Injection Wstr Work Phone: [facility] 09-04-2023 11:34-0400 Systolic blood pressure 151 mm[Hg] Injection Wstr Work Phone: [facility] 08-22-2023 13:57-0400 Body temperature 97.8 [degF] [facility] 08-22-2023 13:57-0400 Diastolic blood pressure 58 mm[Hg] [facility] 08-22-2023 13:57-0400 Heart rate 62 /min [facility] 08-22-2023 13:57-0400 Respiratory rate 16 /min [facility] 08-22-2023 13:57-0400 Systolic blood pressure 127 mm[Hg] [facility] 08-22-2023 13:18-0400 SaO2% (BldA) [Mass fraction] 99 % [facility] 08-22-2023 11:34-0400 Body mass index (BMI) [Ratio] 25.8 kg/m2 [facility] 08-22-2023 11:34-0400 Body weight 77.11 kg [facility] 08-14-2023 11:37-0400 Body temperature 97.9 [degF] Injection Wstr Work Phone: [facility] 08-14-2023 11:37-0400 Body weight 79.38 kg Injection Wstr Work Phone: [facility] 08-14-2023 11:37-0400 Diastolic blood pressure 79 mm[Hg] Injection Wstr Work Phone: [facility] 08-14-2023 11:37-0400 Heart rate 72 /min Injection Wstr Work Phone: [facility] 08-14-2023 11:37-0400 Systolic blood pressure 139 mm[Hg] Injection Wstr Work Phone: [facility] 08-08-2023 13:14-0400 Body temperature 97.5 [degF] [facility] 08-08-2023 13:14-0400 Diastolic blood pressure 52 mm[Hg] [facility] 08-08-2023 13:14-0400 Heart rate 62 /min [facility] 08-08-2023 13:14-0400 Respiratory rate 16 /min [facility] 08-08-2023 13:14-0400 Systolic blood pressure 130 mm[Hg] [facility] 08-08-2023 11:38-0400 SaO2% (BldA) [Mass fraction] 99 % [facility] 07-04-2023 14:30-0400 Body temperature 97.6 [degF] PA NA Carter PA Work Phone: [facility] 07-04-2023 14:30-0400 Diastolic blood pressure 62 mm[Hg] PA NA Carter PA Work Phone: [facility] 07-04-2023 14:30-0400 Heart rate 64 /min PA NA Carter PA Work Phone: [facility] 07-04-2023 14:30-0400 Respiratory rate 16 /min PA NA Carter PA Work Phone: [facility] 07-04-2023 14:30-0400 SaO2% (BldA) [Mass fraction] 94 % PA NA Carter PA Work Phone: [facility] 07-04-2023 14:30-0400 Systolic blood pressure 137 mm[Hg] PA NA Carter PA Work Phone: [facility] 07-04-2023 11:39-0400 Body height 172.72 cm PA NA Carter PA Work Phone: [facility] 07-04-2023 11:39-0400 Body mass index (BMI) [Ratio] 26.3 kg/m2 PA NA Carter PA Work Phone: [facility] 07-04-2023 11:39-0400 Body weight 78.47 kg PA NA Carter PA Work Phone: [facility] 07-03-2023 10:28-0400 Body weight 78.47 kg NA Carter PA-C Work Phone: [facility] 07-03-2023 10:28-0400 Diastolic blood pressure 70 mm[Hg] NA Carter PA-C Work Phone: [facility] 07-03-2023 10:28-0400 Heart rate 65 /min NA Carter PA-C Work Phone: [facility] 07-03-2023 10:28-0400 Respiratory rate 16 /min NA Carter PA-C Work Phone: [facility] 07-03-2023 10:28-0400 SaO2% (BldA) [Mass fraction] 96 % NA Acrter PA-C Work Phone: [facility] 07-03-2023 10:28-0400 Systolic blood pressure 148 mm[Hg] NA Carter PA-C Work Phone: [facility] 07-03-2023 08:42-0400 Body temperature 98.2 [degF] Steven Masci DO Work Phone: [facility] 07-03-2023 08:42-0400 Body weight 78.7 kg Steven Masci DO Work Phone: [facility] 07-03-2023 08:42-0400 Diastolic blood pressure 73 mm[Hg] Steven Masci DO Work Phone: [facility] 07-03-2023 08:42-0400 Heart rate 67 /min Steven Masci DO Work Phone: [facility] 07-03-2023 08:42-0400 SaO2% (BldA) [Mass fraction] 98 % Steven Masci DO Work Phone: [facility] 07-03-2023 08:42-0400 Systolic blood pressure 148 mm[Hg] Steven Akers DO Work Phone: [facility] 06-20-2023 13:15-0400 Diastolic blood pressure 58 mm[Hg] PA NA Carter PA Work Phone: [facility] 06-20-2023 13:15-0400 Heart rate 60 /min PA NA Carter PA Work Phone: [facility] 06-20-2023 13:15-0400 Respiratory rate 16 /min PA NA Carter PA Work Phone: [facility] 06-20-2023 13:15-0400 SaO2% (BldA) [Mass fraction] 97 % PA NA Carter PA Work Phone: [facility] 06-20-2023 13:15-0400 Systolic blood pressure 135 mm[Hg] PA NA Carter PA Work Phone: [facility] 06-20-2023 12:24-0400 Body temperature 97.4 [degF] PA NA Carter PA Work Phone: [facility] 06-20-2023 10:50-0400 Body height 172.72 cm PA NA Carter PA Work Phone: [facility] 06-19-2023 18:41-0400 Diastolic blood pressure 74 mm[Hg] PA NA Carter PA Work Phone: [facility] 06-19-2023 18:41-0400 Heart rate 79 /min PA NA Carter PA Work Phone: [facility] 06-19-2023 18:41-0400 Respiratory rate 18 /min PA NA Carter PA Work Phone: [facility] 06-19-2023 18:41-0400 SaO2% (BldA) [Mass fraction] 99 % PA NA Carter PA Work Phone: [facility] 06-19-2023 18:41-0400 Systolic blood pressure 137 mm[Hg] PA NA Carter PA Work Phone: [facility] 06-19-2023 16:21-0400 Body mass index (BMI) [Ratio] 26.5 kg/m2 PA NA Carter PA Work Phone: [facility] 06-19-2023 16:21-0400 Body temperature 98 [degF] PA NA Carter PA Work Phone: [facility] 06-19-2023 16:21-0400 Body weight 79.12 kg PA NA Carter PA Work Phone: [facility] 06-12-2023 09:02-0400 Body height 174 cm Steven Masci DO Work Phone: [facility] 06-12-2023 09:02-0400 Body temperature 98.01 [degF] Steven Masci DO Work Phone: [facility] 06-12-2023 09:02-0400 Body weight 78.7 kg Steven Masci DO Work Phone: [facility] 06-12-2023 09:02-0400 Diastolic blood pressure 68 mm[Hg] Steven Masci DO Work Phone: [facility] 06-12-2023 09:02-0400 Heart rate 74 /min Steven Masci DO Work Phone: [facility] 06-12-2023 09:02-0400 Respiratory rate 12 /min Steven Masci DO Work Phone: [facility] 06-12-2023 09:02-0400 SaO2% (BldA) [Mass fraction] 98 % Steven Masci DO Work Phone: [facility] 06-12-2023 09:02-0400 Systolic blood pressure 126 mm[Hg] Steven Masci DO Work Phone: [facility] 06-06-2023 13:00-0400 Body temperature 97.6 [degF] PA NA Carter PA Work Phone: [facility] 06-06-2023 13:00-0400 Diastolic blood pressure 51 mm[Hg] PA NA Carter PA Work Phone: [facility] 06-06-2023 13:00-0400 Heart rate 62 /min PA NA Carter PA Work Phone: [facility] 06-06-2023 13:00-0400 Respiratory rate 14 /min PA NA Carter PA Work Phone: [facility] 06-06-2023 13:00-0400 SaO2% (BldA) [Mass fraction] 99 % PA NA Carter PA Work Phone: [facility] 06-06-2023 13:00-0400 Systolic blood pressure 130 mm[Hg] PA NA Carter PA Work Phone: [facility] 06-06-2023 11:14-0400 Body height 177.8 cm PA NA Carter PA Work Phone: [facility] 06-06-2023 11:14-0400 Body mass index (BMI) [Ratio] 24.3 kg/m2 PA NA Carter PA Work Phone: [facility] 06-06-2023 11:14-0400 Body weight 77.11 kg PA NA Carter PA Work Phone: [facility] 05-22-2023 09:35-0400 Body temperature 97.59 [degF] Steven Masci DO Work Phone: [facility] 05-22-2023 09:35-0400 Body weight 79.83 kg Steven Masci DO Work Phone: [facility] 05-22-2023 09:35-0400 Diastolic blood pressure 75 mm[Hg] Steven Masci DO Work Phone: [facility] 05-22-2023 09:35-0400 Heart rate 104 /min Steven Masci DO Work Phone: [facility] 05-22-2023 09:35-0400 Systolic blood pressure 151 mm[Hg] Steven Masci DO Work Phone: [facility] 05-02-2023 13:38-0400 Body temperature 96.7 [degF] PA NA Carter PA Work Phone: [facility] 05-02-2023 13:38-0400 Diastolic blood pressure 53 mm[Hg] PA NA Carter PA Work Phone: [facility] 05-02-2023 13:38-0400 Heart rate 60 /min PA NA Carter PA Work Phone: [facility] 05-02-2023 13:38-0400 Respiratory rate 12 /min PA NA Carter PA Work Phone: [facility] 05-02-2023 13:38-0400 SaO2% (BldA) [Mass fraction] 99 % PA NA Carter PA Work Phone: [facility] 05-02-2023 13:38-0400 Systolic blood pressure 143 mm[Hg] PA NA Carter PA Work Phone: [facility] 05-02-2023 11:06-0400 Body height 177.8 cm PA NA Carter PA Work Phone: [facility] 05-02-2023 11:06-0400 Body mass index (BMI) [Ratio] 24.3 kg/m2 PA NA Carter PA Work Phone: [facility] 05-02-2023 11:06-0400 Body weight 77.11 kg PA NA Carter PA Work Phone: [facility] 05-01-2023 08:51-0400 Body temperature 97.81 [degF] Sisi Blanchard [employer] Work Phone: [facility] 05-01-2023 08:51-0400 Body weight 79.38 kg Sisi Blanchard [employer] Work Phone: [facility] 05-01-2023 08:51-0400 Diastolic blood pressure 62 mm[Hg] Sisi Blanchard [employer] E[employer]OR Work Phone: [facility] 05-01-2023 08:51-0400 Heart rate 66 /min Sisi Blanchard [employer] E[employer]OR Work Phone: [facility] 05-01-2023 08:51-0400 SaO2% (BldA) [Mass fraction] 95 % Sisi Blanchard [employer] E[employer]OR Work Phone: [facility] 05-01-2023 08:51-0400 Systolic blood pressure 141 mm[Hg] Sisi Blanchard [employer] E[employer]OR Work Phone: [facility] 04-18-2023 09:39-0400 Body mass index (BMI) [Ratio] 25.1 kg/m2 PA NA Carter PA Work Phone: [facility] 04-18-2023 09:39-0400 Body weight 79.37 kg PA NA Carter PA Work Phone: [facility] 04-18-2023 09:39-0400 Diastolic blood pressure 72 mm[Hg] PA NA Carter PA Work Phone: [facility] 04-18-2023 09:39-0400 Heart rate 65 /min PA NA Carter PA Work Phone: [facility] 04-18-2023 09:39-0400 Respiratory rate 16 /min PA NA Carter PA Work Phone: [facility] 04-18-2023 09:39-0400 Systolic blood pressure 145 mm[Hg] PA NA Carter PA Work Phone: [facility] 04-10-2023 09:06-0400 Body temperature 97.81 [degF] Sisi Blanchard G[employer] ERECTOR Work Phone: [facility] 04-10-2023 09:06-0400 Body weight 79.15 kg Sisi Blanchard G[employer]ERIAL E[employer]OR Work Phone: [facility] 04-10-2023 09:06-0400 Diastolic blood pressure 62 mm[Hg] Sisi Blanchard G[employer].A[employer] E[employer]OR Work Phone: [facility] 04-10-2023 09:06-0400 Heart rate 70 /min Sisi Brodyenter G[employer] ERECTOR Work Phone: [facility] 04-10-2023 09:06-0400 Systolic blood pressure 130 mm[Hg] Sisi Blanchard APRN.AERIAL ERECTOR Work Phone: [facility] 04-04-2023 11:18-0400 Body temperature 97.9 [degF] PA NA Carter PA Work Phone: [facility] 04-04-2023 11:18-0400 Diastolic blood pressure 64 mm[Hg] PA NA Carter PA Work Phone: [facility] 04-04-2023 11:18-0400 Heart rate 54 /min PA NA Carter PA Work Phone: [facility] 04-04-2023 11:18-0400 Respiratory rate 16 /min PA NA Carter PA Work Phone: [facility] 04-04-2023 11:18-0400 SaO2% (BldA) [Mass fraction] 99 % PA NA Carter PA Work Phone: [facility] 04-04-2023 11:18-0400 Systolic blood pressure 142 mm[Hg] PA NA Carter PA Work Phone: [facility] 03-21-2023 13:40-0400 Body temperature 97.5 [degF] PA NA Carter PA Work Phone: [facility] 03-21-2023 13:40-0400 Diastolic blood pressure 55 mm[Hg] PA NA Carter PA Work Phone: [facility] 03-21-2023 13:40-0400 Heart rate 63 /min PA NA Carter PA Work Phone: [facility] 03-21-2023 13:40-0400 Respiratory rate 16 /min PA NA Carter PA Work Phone: [facility] 03-21-2023 13:40-0400 SaO2% (BldA) [Mass fraction] 97 % PA NA Carter PA Work Phone: [facility] 03-21-2023 13:40-0400 Systolic blood pressure 131 mm[Hg] PA NA Carter PA Work Phone: [facility] 03-21-2023 11:23-0400 Body height 177.8 cm PA NA Carter PA Work Phone: 8(548)989-768892 [place] [address] 03-07-2023 18:56-0400 Diastolic blood pressure 71 mm[Hg] PA NA Carter PA Work Phone: 0(106)609-914592 [place] [address] 03-07-2023 18:56-0400 Heart rate 76 /min PA NA Carter PA Work Phone: 2(039)775-794792 [place] [address] 03-07-2023 18:56-0400 Respiratory rate 14 /min PA NA Carter PA Work Phone: 2(959)397-464992 [place] [address] 03-07-2023 18:56-0400 SaO2% (BldA) [Mass fraction] 99 % PA NA Carter PA Work Phone: 0(784)428-733292 [place] [address] 03-07-2023 18:56-0400 Systolic blood pressure 143 mm[Hg] PA NA Carter PA Work Phone: 5(489)762-656392 [place] [address] 03-07-2023 15:58-0400 Body height 177.8 cm PA NA Carter PA Work Phone: 8(499)742-250857 [place] [address] 03-07-2023 15:58-0400 Body mass index (BMI) [Ratio] 25.1 kg/m2 PA NA Carter PA Work Phone: 9(100)685-348057 [place] [address] 03-07-2023 15:58-0400 Body temperature 97.2 [degF] PA NA Carter PA Work Phone: 9(033)705-069392 [place] [address] 03-07-2023 15:58-0400 Body weight 79.37 kg PA NA Carter PA Work Phone: 1(712)606-806592 [place] [address] 03-07-2023 15:16-0400 Diastolic blood pressure 64 mm[Hg] PA NA Carter PA Work Phone: 0(058)287-496692 [place] [address] 03-07-2023 15:16-0400 Respiratory rate 16 /min PA NA Carter PA Work Phone: [facility] 03-07-2023 15:16-0400 Systolic blood pressure 137 mm[Hg] PA NA Carter PA Work Phone: [facility] 03-07-2023 14:24-0400 Body temperature 97.2 [degF] PA NA Carter PA Work Phone: [facility] 03-07-2023 14:24-0400 Heart rate 64 /min PA NA Carter PA Work Phone: [facility] 03-07-2023 13:24-0400 SaO2% (BldA) [Mass fraction] 99 % PA NA Carter PA Work Phone: [facility] 02-27-2023 10:01-0400 Body height 174 cm Sisi Blanchard [employer] Work Phone: [facility] 02-27-2023 10:01-0400 Body temperature 98.2 [degF] Sisi Blanchard [employer] Work Phone: [facility] 02-27-2023 10:01-0400 Body weight 78.47 kg Sisi Blanchard [employer] Work Phone: [facility] 02-27-2023 10:01-0400 Diastolic blood pressure 64 mm[Hg] Sisi Blanchard [employer] Work Phone: [facility] 02-27-2023 10:01-0400 Heart rate 71 /min Sisi Blanchard [employer] Work Phone: [facility] 02-27-2023 10:01-0400 SaO2% (BldA) [Mass fraction] 99 % Sisi Blanchard [employer] Work Phone: [facility] 02-27-2023 10:01-0400 Systolic blood pressure 139 mm[Hg] Sisi Blanchard [employer] Work Phone: [facility] 02-17-2023 13:06-0400 Body mass index (BMI) [Ratio] 24.8 kg/m2 PA NA Carter PA Work Phone: [facility] 02-17-2023 13:06-0400 Body weight 78.47 kg PA NA Carter PA Work Phone: [facility] 02-17-2023 13:06-0400 Diastolic blood pressure 74 mm[Hg] PA NA Carter PA Work Phone: [facility] 02-17-2023 13:06-0400 Heart rate 72 /min PA NA Carter PA Work Phone: [facility] 02-17-2023 13:06-0400 Respiratory rate 18 /min PA NA Carter PA Work Phone: [facility] 02-17-2023 13:06-0400 SaO2% (BldA) [Mass fraction] 98 % PA NA Carter PA Work Phone: [facility] 02-17-2023 13:06-0400 Systolic blood pressure 139 mm[Hg] PA NA Carter PA Work Phone: [facility] 02-13-2023 12:10-0400 Diastolic blood pressure 61 mm[Hg] Steven Masci DO Work Phone: [facility] 02-13-2023 12:10-0400 Heart rate 66 /min Steven Masci DO Work Phone: [facility] 02-13-2023 12:10-0400 Systolic blood pressure 126 mm[Hg] Steven Masci DO Work Phone: [facility] 02-06-2023 10:130400 Body temperature 98.1 [degF] Injection Wstr Work Phone: [facility] 02-06-2023 10:130400 Body weight 78.93 kg Injection Wstr Work Phone: [facility] 02-06-2023 10:13-0400 Diastolic blood pressure 57 mm[Hg] Injection Wstr Work Phone: [facility] 02-06-2023 10:13-0400 Heart rate 66 /min Injection Wstr Work Phone: [facility] 02-06-2023 10:13-0400 Systolic blood pressure 148 mm[Hg] Injection Wstr Work Phone: [facility] 01-27-2023 16:04-0400 Body temperature 98.1 [degF] PA NA Carter PA Work Phone: [facility] 01-27-2023 16:04-0400 Diastolic blood pressure 51 mm[Hg] PA NA Carter PA Work Phone: [facility] 01-27-2023 16:04-0400 Heart rate 66 /min PA NA Carter PA Work Phone: [facility] 01-27-2023 16:04-0400 Respiratory rate 14 /min PA NA Carter PA Work Phone: [facility] 01-27-2023 16:04-0400 SaO2% (BldA) [Mass fraction] 96 % PA NA Carter PA Work Phone: [facility] 01-27-2023 16:04-0400 Systolic blood pressure 130 mm[Hg] PA NA Carter PA Work Phone: [facility] 01-27-2023 13:17-0400 Body height 177.8 cm PA NA Carter PA Work Phone: [facility] 01-27-2023 13:17-0400 Body mass index (BMI) [Ratio] 24.8 kg/m2 PA NA Carter PA Work Phone: [facility] 01-27-2023 13:17-0400 Body weight 78.47 kg PA NA Carter PA Work Phone: [facility] 01-24-2023 15:42-0400 Body temperature 97.7 [degF] Steven Akers DO Work Phone: [facility] 01-24-2023 15:42-0400 Body weight 79.38 kg Steven Akers DO Work Phone: [facility] 01-24-2023 15:42-0400 Diastolic blood pressure 53 mm[Hg] Steven Akers DO Work Phone: [facility] 01-24-2023 15:42-0400 Heart rate 68 /min Steven Masci DO Work Phone: [facility] 01-24-2023 15:42-0400 Systolic blood pressure 127 mm[Hg] Steven Masci DO Work Phone: [facility] 01-09-2023 12:39-0500 Body temperature 97 [degF] PA NA Carter PA Work Phone: [facility] 01-09-2023 12:39-0500 Diastolic blood pressure 67 mm[Hg] PA NA Carter PA Work Phone: [facility] 01-09-2023 12:39-0500 Heart rate 65 /min PA NA Carter PA Work Phone: [facility] 01-09-2023 12:39-0500 Respiratory rate 16 /min PA NA Carter PA Work Phone: [facility] 01-09-2023 12:39-0500 SaO2% (BldA) [Mass fraction] 98 % PA NA Carter PA Work Phone: [facility] 01-09-2023 12:39-0500 Systolic blood pressure 148 mm[Hg] PA NA Carter PA Work Phone: [facility] 01-09-2023 10:30-0500 Body mass index (BMI) [Ratio] 24.7 kg/m2 PA NA Carter PA Work Phone: [facility] 01-09-2023 10:30-0500 Body weight 78.01 kg PA NA Carter PA Work Phone: [facility] 01-08-2023 13:59-0500 Diastolic blood pressure 55 mm[Hg] Steven Masci DO Work Phone: [facility] 01-08-2023 13:59-0500 Heart rate 69 /min Steven Masci DO Work Phone: [facility] 01-08-2023 13:59-0500 Systolic blood pressure 135 mm[Hg] Steven Masci DO Work Phone: [facility] 12-19-2022 14:17-0500 Body temperature 98.1 [degF] PA NA Carter PA Work Phone: [facility] 12-19-2022 14:17-0500 Diastolic blood pressure 50 mm[Hg] PA NA Carter PA Work Phone: [facility] 12-19-2022 14:17-0500 Heart rate 65 /min PA NA Carter PA Work Phone: [facility] 12-19-2022 14:17-0500 Respiratory rate 16 /min PA NA Carter PA Work Phone: [facility] 12-19-2022 14:17-0500 SaO2% (BldA) [Mass fraction] 97 % PA NA Carter PA Work Phone: [facility] 12-19-2022 14:17-0500 Systolic blood pressure 131 mm[Hg] PA NA Carter PA Work Phone: [facility] 12-18-2022 15:55-0500 Body temperature 98.91 [degF] Steven Masci DO Work Phone: [facility] 12-18-2022 15:55-0500 Body weight 80.51 kg Steven Masci DO Work Phone: [facility] 12-18-2022 15:55-0500 Diastolic blood pressure 58 mm[Hg] Steven Masci DO Work Phone: [facility] 12-18-2022 15:55-0500 Heart rate 71 /min Steven Masci DO Work Phone: [facility] 12-18-2022 15:55-0500 SaO2% (BldA) [Mass fraction] 98 % Steven Masci DO Work Phone: [facility] 12-18-2022 15:55-0500 Systolic blood pressure 138 mm[Hg] Steven Masci DO Work Phone: [facility] 11-26-2022 11:40-0500 Body height 175.5 cm Steven Pinedai DO Work Phone: [facility] 11-26-2022 11:40-0500 Body temperature 98.1 [degF] Steven Pinedai DO Work Phone: [facility] 11-26-2022 11:40-0500 Body weight 82.1 kg Steven Pinedai DO Work Phone: [facility] 11-26-2022 11:40-0500 Diastolic blood pressure 55 mm[Hg] Steven Pinedai DO Work Phone: [facility] 11-26-2022 11:40-0500 Heart rate 72 /min Steven Pinedai DO Work Phone: [facility] 11-26-2022 11:40-0500 SaO2% (BldA) [Mass fraction] 95 % Steven Pinedai DO Work Phone: [facility] 11-26-2022 11:40-0500 Systolic blood pressure 139 mm[Hg] Steven Pinedai DO Work Phone: [facility] 11-13-2022 15:03-0500 Body temperature 97.6 [degF] PA NA Carter PA Work Phone: [facility] 11-13-2022 15:03-0500 Diastolic blood pressure 53 mm[Hg] PA NA Carter PA Work Phone: [facility] 11-13-2022 15:03-0500 Heart rate 62 /min PA NA Carter PA Work Phone: [facility] 11-13-2022 15:03-0500 Respiratory rate 16 /min PA NA Carter PA Work Phone: [facility] 11-13-2022 15:03-0500 Systolic blood pressure 138 mm[Hg] PA NA Carter PA Work Phone: [facility] 11-13-2022 13:09-0500 Body mass index (BMI) [Ratio] 24.3 kg/m2 PA NA Carter PA Work Phone: [facility] 01-04-2023 13:09-0500 Body weight 77.11 kg PA NA Carter PA Work Phone: 9(522)974-038892 [place] [address] 11-13-2022 13:09-0500 SaO2% (BldA) [Mass fraction] 95 % PA NA Carter PA Work Phone: 4(731)638-140892 [place] [address] 11-13-2022 08:15-0500 Body mass index (BMI) [Ratio] 26.6 kg/m2 PA NA Carter PA Work Phone: 1(191)978-738057 [place] [address] 11-13-2022 08:15-0500 Body temperature 98.2 [degF] PA NA Carter PA Work Phone: 0(916)867-420357 [place] [address] 11-13-2022 08:15-0500 Body weight 84.42 kg PA NA Carter PA Work Phone: 4(107)005-238557 [place] [address] 11-13-2022 08:15-0500 Diastolic blood pressure 71 mm[Hg] PA NA Carter PA Work Phone: 3(969)380-197157 [place] [address] 11-13-2022 08:15-0500 Heart rate 79 /min PA NA Carter PA Work Phone: 2(704)584-026457 [place] [address] 11-13-2022 08:15-0500 Respiratory rate 16 /min PA NA Carter PA Work Phone: 4(289)778-749457 [place] [address] 11-13-2022 08:15-0500 SaO2% (BldA) [Mass fraction] 98 % PA NA Carter PA Work Phone: 7(742)773-456292 [place] [address] 11-13-2022 08:15-0500 Systolic blood pressure 162 mm[Hg] PA NA Carter PA Work Phone: 2(132)631-727657 [place] [address] 10-10-2022 11:27-0500 Body mass index (BMI) [Ratio] 24.8 kg/m2 PA NA Carter PA Work Phone: 2(118)915-045057 [place] [address] 10-10-2022 11:27-0500 Body temperature 97.6 [degF] PA NA Carter PA Work Phone: 9(235)821-673192 [place] [address] 10-10-2022 11:27-0500 Body weight 78.64 kg PA NA Carter PA Work Phone: [facility] 10-10-2022 11:27-0500 Diastolic blood pressure 67 mm[Hg] PA NA Carter PA Work Phone: [facility] 10-10-2022 11:27-0500 Heart rate 67 /min PA NA Carter PA Work Phone: [facility] 10-10-2022 11:27-0500 Respiratory rate 16 /min PA NA Carter PA Work Phone: [facility] 10-10-2022 11:27-0500 SaO2% (BldA) [Mass fraction] 67 % PA NA Carter PA Work Phone: [facility] 10-10-2022 11:27-0500 Systolic blood pressure 132 mm[Hg] PA NA Carter PA Work Phone: [facility] 05-14-2022 16:25-0400 Body temperature 98.5 [degF] PA NA Carter PA Work Phone: [facility] Work Phone: 05-14-2022 16:25-0400 Diastolic blood pressure 43 mm[Hg] PA NA Carter PA Work Phone: [facility] Work Phone: 05-14-2022 16:25-0400 Heart rate 71 /min PA NA Carter PA Work Phone: [facility] Work Phone: 05-14-2022 16:25-0400 Respiratory rate 18 /min PA NA Carter PA Work Phone: [facility] Work Phone: 05-14-2022 16:25-0400 Systolic blood pressure 121 mm[Hg] PA NA Carter PA Work Phone: [facility] Work Phone: 05-14-2022 14:37-0400 SaO2% (BldA) [Mass fraction] 97 % PA NA Carter PA Work Phone: [facility] Work Phone: 05-14-2022 11:14-0400 Body height 177.8 cm PA NA Carter PA Work Phone: [facility] Work Phone: 05-14-2022 11:14-0400 Body weight 82.2 kg PA NA Carter PA Work Phone: [facility] Work Phone: 05-09-2022 22:50-0400 Body mass index (BMI) [Ratio] 24.4 kg/m2 PA NA Carter PA Work Phone: [facility] Work Phone: 05-09-2022 22:08-0400 Body temperature 98.9 [degF] PA NA Carter PA Work Phone: [facility] Work Phone: 05-09-2022 22:08-0400 Diastolic blood pressure 61 mm[Hg] PA NA Carter PA Work Phone: [facility] Work Phone: 05-09-2022 22:08-0400 Heart rate 84 /min PA NA Carter PA Work Phone: [facility] Work Phone: 05-09-2022 22:08-0400 Respiratory rate 18 /min PA NA Carter PA Work Phone: [facility] Work Phone: 05-09-2022 22:08-0400 SaO2% (BldA) [Mass fraction] 99 % PA NA Carter PA Work Phone: [facility] Work Phone: 05-09-2022 22:08-0400 Systolic blood pressure 159 mm[Hg] PA NA Carter PA Work Phone: [facility] Work Phone: 05-09-2022 17:19-0400 Body height 177.8 cm PA NA Carter PA Work Phone: [facility] Work Phone: 05-09-2022 17:19-0400 Body mass index (BMI) [Ratio] 25.1 kg/m2 PA NA Carter PA Work Phone: [facility] Work Phone: 05-09-2022 17:19-0400 Body weight 79.4 kg PA NA Carter PA Work Phone: [facility] Work Phone: 05-01-2022 14:10-0400 Body temperature 97.1 [degF] PA NA Carter PA Work Phone: [facility] Work Phone: 05-01-2022 14:10-0400 Diastolic blood pressure 56 mm[Hg] PA NA Carter PA Work Phone: [facility] Work Phone: 05-01-2022 14:10-0400 Heart rate 67 /min PA NA Carter PA Work Phone: [facility] Work Phone: 05-01-2022 14:10-0400 Respiratory rate 16 /min PA NA Carter PA Work Phone: [facility] Work Phone: 05-01-2022 14:10-0400 SaO2% (BldA) [Mass fraction] 100 % PA NA Carter PA Work Phone: [facility] Work Phone: 05-01-2022 14:10-0400 Systolic blood pressure 135 mm[Hg] PA NA Carter PA Work Phone: [facility] Work Phone: 05-01-2022 09:30-0400 Body mass index (BMI) [Ratio] 24.7 kg/m2 PA NA Carter PA Work Phone: [facility] Work Phone: 05-01-2022 09:30-0400 Body weight 78.01 kg PA NA Carter PA Work Phone: [facility] Work Phone: 04-30-2022 14:53-0400 Body mass index (BMI) [Ratio] 24.7 kg/m2 PA NA Carter PA Work Phone: [facility] Work Phone: 04-30-2022 14:53-0400 Body temperature 98.5 [degF] PA NA Carter PA Work Phone: [facility] Work Phone: 04-30-2022 14:53-0400 Body weight 78.1 kg PA NA Carter PA Work Phone: [facility] Work Phone: 04-30-2022 14:53-0400 Diastolic blood pressure 73 mm[Hg] PA NA Carter PA Work Phone: [facility] Work Phone: 04-30-2022 14:53-0400 Heart rate 65 /min PA NA Carter PA Work Phone: [facility] Work Phone: 04-30-2022 14:53-0400 Respiratory rate 15 /min PA NA Carter PA Work Phone: [facility] Work Phone: 04-30-2022 14:53-0400 SaO2% (BldA) [Mass fraction] 98 % PA NA Carter PA Work Phone: [facility] Work Phone: 04-30-2022 14:53-0400 Systolic blood pressure 147 mm[Hg] PA NA Carter PA Work Phone: [facility] Work Phone: 04-26-2022 08:32-0400 Body mass index (BMI) [Ratio] 24.3 kg/m2 PA NA Carter PA Work Phone: [facility] Work Phone: 04-26-2022 08:32-0400 Body weight 77.11 kg PA NA Carter PA Work Phone: [facility] Work Phone: 04-26-2022 08:32-0400 Diastolic blood pressure 74 mm[Hg] PA NA Carter PA Work Phone: [facility] Work Phone: 04-26-2022 08:32-0400 Heart rate 72 /min PA NA Carter PA Work Phone: [facility] Work Phone: 04-26-2022 08:32-0400 Respiratory rate 16 /min PA NA Carter PA Work Phone: [facility] Work Phone: 04-26-2022 08:32-0400 SaO2% (BldA) [Mass fraction] 99 % PA NA Carter PA Work Phone: [facility] Work Phone: 04-26-2022 08:32-0400 Systolic blood pressure 147 mm[Hg] PA NA Carter PA Work Phone: [facility] Work Phone: 04-17-2022 15:30-0400 Body mass index (BMI) [Ratio] 24.7 kg/m2 PA NA Carter PA Work Phone: [facility] Work Phone: 04-17-2022 15:30-0400 Body temperature 98.6 [degF] PA NA Carter PA Work Phone: [facility] Work Phone: 04-17-2022 15:30-0400 Body weight 78.21 kg PA NA Carter PA Work Phone: [facility] Work Phone: 04-17-2022 15:30-0400 Diastolic blood pressure 69 mm[Hg] PA NA Carter PA Work Phone: [facility] Work Phone: 04-17-2022 15:30-0400 Heart rate 70 /min PA NA Carter PA Work Phone: [facility] Work Phone: 04-17-2022 15:30-0400 Respiratory rate 15 /min PA NA Carter PA Work Phone: [facility] Work Phone: 04-17-2022 15:30-0400 SaO2% (BldA) [Mass fraction] 99 % PA NA Carter PA Work Phone: [facility] Work Phone: 04-17-2022 15:30-0400 Systolic blood pressure 143 mm[Hg] PA NA Carter PA Work Phone: [facility] Work Phone: 04-02-2022 15:43-0400 Body mass index (BMI) [Ratio] 25.1 kg/m2 PA NA Carter PA Work Phone: [facility] Work Phone: 04-02-2022 15:43-0400 Body temperature 98.5 [degF] PA NA Carter PA Work Phone: [facility] Work Phone: 04-02-2022 15:43-0400 Body weight 79.49 kg PA NA Carter PA Work Phone: [facility] Work Phone: 04-02-2022 15:43-0400 Diastolic blood pressure 65 mm[Hg] PA NA Carter PA Work Phone: [facility] Work Phone: 04-02-2022 15:43-0400 Heart rate 69 /min PA NA Carter PA Work Phone: [facility] Work Phone: 04-02-2022 15:43-0400 Respiratory rate 15 /min PA NA Carter PA Work Phone: [facility] Work Phone: 04-02-2022 15:43-0400 SaO2% (BldA) [Mass fraction] 98 % PA NA Carter PA Work Phone: [facility] Work Phone: 04-02-2022 15:43-0400 Systolic blood pressure 155 mm[Hg] PA NA Carter PA Work Phone: [facility] Work Phone: 03-21-2022 10:00-0400 Body mass index (BMI) [Ratio] 25.4 kg/m2 PA NA Carter PA Work Phone: [facility] Work Phone: 03-21-2022 10:00-0400 Body temperature 98.3 [degF] PA NA Carter PA Work Phone: [facility] Work Phone: 03-21-2022 10:00-0400 Body weight 80.54 kg PA NA Carter PA Work Phone: [facility] Work Phone: 03-21-2022 10:00-0400 Diastolic blood pressure 75 mm[Hg] PA NA Carter PA Work Phone: [facility] Work Phone: 03-21-2022 10:00-0400 Heart rate 70 /min PA NA Carter PA Work Phone: [facility] Work Phone: 03-21-2022 10:00-0400 Respiratory rate 15 /min PA NA Carter PA Work Phone: [facility] Work Phone: 03-21-2022 10:00-0400 SaO2% (BldA) [Mass fraction] 96 % PA NA Carter PA Work Phone: [facility] Work Phone: 03-21-2022 10:00-0400 Systolic blood pressure 161 mm[Hg] PA NA Carter PA Work Phone: [facility] Work Phone: 02-15-2022 13:13-0400 Body temperature 96.5 [degF] PA NA Carter PA Work Phone: [facility] Work Phone: 02-15-2022 13:13-0400 Diastolic blood pressure 57 mm[Hg] PA NA Carter PA Work Phone: [facility] Work Phone: 02-15-2022 13:13-0400 Heart rate 73 /min PA NA Carter PA Work Phone: [facility] Work Phone: 02-15-2022 13:13-0400 Respiratory rate 16 /min PA NA Carter PA Work Phone: [facility] Work Phone: 02-15-2022 13:13-0400 SaO2% (BldA) [Mass fraction] 98 % PA NA Carter PA Work Phone: [facility] Work Phone: 02-15-2022 13:13-0400 Systolic blood pressure 136 mm[Hg] PA NA Carter PA Work Phone: [facility] Work Phone: 02-15-2022 08:10-0400 Body height 177.8 cm PA NA Carter PA Work Phone: [facility] Work Phone: 02-14-2022 11:56-0400 Body mass index (BMI) [Ratio] 25.1 kg/m2 PA NA Carter PA Work Phone: [facility] Work Phone: 02-14-2022 11:56-0400 Body temperature 98.4 [degF] PA NA Carter PA Work Phone: [facility] Work Phone: 02-14-2022 11:56-0400 Body weight 79.49 kg PA NA Carter PA Work Phone: [facility] Work Phone: 02-14-2022 11:56-0400 Diastolic blood pressure 67 mm[Hg] PA NA Carter PA Work Phone: [facility] Work Phone: 02-14-2022 11:56-0400 Heart rate 65 /min PA NA Carter PA Work Phone: [facility] Work Phone: 02-14-2022 11:56-0400 Respiratory rate 15 /min PA NA Carter PA Work Phone: [facility] Work Phone: 02-14-2022 11:56-0400 SaO2% (BldA) [Mass fraction] 96 % PA NA Carter PA Work Phone: [facility] Work Phone: 02-14-2022 11:56-0400 Systolic blood pressure 138 mm[Hg] PA NA Carter PA Work Phone: [facility] Work Phone: 02-14-2022 11:56-0400 Body mass index (BMI) [Ratio] 25.1 kg/m2 PA NA Carter PA Work Phone: [facility] Work Phone: 02-14-2022 11:56-0400 Body temperature 98.4 [degF] PA NA Carter PA Work Phone: [facility] Work Phone: 02-14-2022 11:56-0400 Body weight 79.49 kg PA NA Carter PA Work Phone: [facility] Work Phone: 02-14-2022 11:56-0400 Diastolic blood pressure 67 mm[Hg] PA NA Carter PA Work Phone: [facility] Work Phone: 02-14-2022 11:56-0400 Heart rate 65 /min PA NA Carter PA Work Phone: [facility] Work Phone: 02-14-2022 11:56-0400 Respiratory rate 15 /min PA NA Carter PA Work Phone: [facility] Work Phone: 02-14-2022 11:56-0400 SaO2% (BldA) [Mass fraction] 96 % PA NA Carter PA Work Phone: [facility] Work Phone: 02-14-2022 11:56-0400 Systolic blood pressure 138 mm[Hg] PA NA Carter PA Work Phone: [facility] Work Phone: 12-25-2021 12:33-0500 Body mass index (BMI) [Ratio] 25.1 kg/m2 PA NA Carter PA Work Phone: [facility] Work Phone: 12-25-2021 12:33-0500 Body temperature 98.4 [degF] PA NA Carter PA Work Phone: [facility] Work Phone: 12-25-2021 12:33-0500 Body weight 79.4 kg PA NA Carter PA Work Phone: [facility] Work Phone: 12-25-2021 12:33-0500 Diastolic blood pressure 71 mm[Hg] PA NA Carter PA Work Phone: [facility] Work Phone: 12-25-2021 12:33-0500 Heart rate 68 /min PA NA Carter PA Work Phone: [facility] Work Phone: 12-25-2021 12:33-0500 Respiratory rate 15 /min PA NA Carter PA Work Phone: [facility] Work Phone: 12-25-2021 12:33-0500 SaO2% (BldA) [Mass fraction] 97 % PA NA Carter PA Work Phone: [facility] Work Phone: 12-25-2021 12:33-0500 Systolic blood pressure 149 mm[Hg] PA NA Carter PA Work Phone: [facility] Work Phone: 12-18-2021 11:48-0500 Body temperature 98.1 [degF] PA NA Carter PA Work Phone: [facility] Work Phone: 12-18-2021 11:48-0500 Diastolic blood pressure 83 mm[Hg] PA NA Carter PA Work Phone: [facility] Work Phone: 12-18-2021 11:48-0500 Heart rate 75 /min PA NA Carter PA Work Phone: [facility] Work Phone: 12-18-2021 11:48-0500 Respiratory rate 16 /min PA NA Carter PA Work Phone: [facility] Work Phone: 12-18-2021 11:48-0500 SaO2% (BldA) [Mass fraction] 97 % PA NA Carter PA Work Phone: [facility] Work Phone: 12-18-2021 11:48-0500 Systolic blood pressure 147 mm[Hg] PA NA Carter PA Work Phone: [facility] Work Phone: 11-23-2021 12:25-0500 Body temperature 97.8 [degF] PA NA Carter PA Work Phone: [facility] Work Phone: 11-23-2021 12:25-0500 Diastolic blood pressure 44 mm[Hg] PA NA Carter PA Work Phone: [facility] Work Phone: 11-23-2021 12:25-0500 Heart rate 66 /min PA NA Carter PA Work Phone: [facility] Work Phone: 11-23-2021 12:25-0500 Respiratory rate 16 /min PA NA Carter PA Work Phone: [facility] Work Phone: 11-23-2021 12:25-0500 Systolic blood pressure 123 mm[Hg] PA NA Carter PA Work Phone: [facility] Work Phone: 11-23-2021 11:30-0500 SaO2% (BldA) [Mass fraction] 98 % PA NA Carter PA Work Phone: [facility] Work Phone: 11-23-2021 09:31-0500 Body mass index (BMI) [Ratio] 24.3 kg/m2 PA NA Carter PA Work Phone: [facility] Work Phone: 11-23-2021 09:31-0500 Body weight 77.11 kg PA NA Carter PA Work Phone: [facility] Work Phone: Encounters Encounter Date Encounter Type Care Provider Facility Start: 09-09-2025 End: 09-09-2025 ambulatory Steven Akers Facility:[facility] Start: 09-08-2025 End: 09-08-2025 ambulatory STEVEN AKERS Facility:[facility] Start: 08-26-2025 End: 08-26-[address] Steven Akers DO -Medical Out Work Phone: Start: 08-26-2025 End: 08-26-2025 ambulatory Gladys Suppan [employer] Work Phone: -Medical Out Start: 08-25-2025 End: 08-25-2025 ambulatory STEVEN AKERS Facility:[facility] Start: 08-12-2025 End: 08-12-[address] Steven Akers DO -Medical Out Work Phone: Start: 08-12-2025 End: 08-12-2025 ambulatory Gladys Suppan [employer] Work Phone: -Medical Out Start: 08-11-2025 End: 08-11-2025 ambulatory STEVEN AKERS Facility:[facility] Start: 07-29-2025 End: 07-29-[address] Steven Akers DO -Medical Out Work Phone: Start: 07-29-2025 End: 07-29-2025 ambulatory Gladys Suppan [employer] Work Phone: -Medical Out Start: 07-28-2025 ambulatory GLADYS A SUPPAN [facility] ility:[facility] Start: 07-28-2025 Patient encounter procedure LIZZ Hollingsworth SUPPAN [facility] Start: 07-28-2025 End: 07-28-2025 ambulatory STEVEN AKERS Facility:[facility] Start: 07-15-2025 End: 07-15-[address] Steven Akers DO -Medical Out Work Phone: Start: 07-15-2025 End: 07-15-2025 ambulatory Gladys Suppan [employer] Work Phone: -Medical Out Start: 07-14-2025 End: 07-14-2025 Telephone encounter Steven Akers DO Work Phone: Hematology/Oncology Comment on above: Transfusion Start: 07-14-2025 End: 07-14-2025 ambulatory STEVEN AKERS Facility:[facility] Start: 07-01-2025 End: 07-01-[address] Steven Akers DO -Medical Out Work Phone: Start: 07-01-2025 End: 07-01-2025 ambulatory Gladys Da Silva [employer] Work Phone: -Medical Out Start: 06-30-2025 End: 06-30-2025 Telephone encounter Steven Akers DO Work Phone: Hematology/Oncology Comment on above: Transfusion Start: 06-30-2025 End: 06-30-2025 Patient encounter procedure Steven Akers DO Work Phone: Hematology/Oncology Start: 06-30-2025 End: 06-30-2025 ambulatory Steven Akers DO Work Phone: Hematology/Oncology Comment on above: MDS (myelodysplastic syndrome), low grade (HCC) (Primary Dx); Macrocytic anemia; 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 (HCC); Iron overload, transfusional; Chronic midline low back pain without sciatica Start: 06-17-2025 End: 06-17-[address] Steven Akers DO -Medical Out Work Phone: Start: 06-17-2025 End: 06-17-2025 ambulatory Gladys Da Silva [employer] Work Phone: -Medical Out Start: 06-16-2025 End: 06-16-2025 ambulatory STEVEN AKERS Facility:[facility] Start: 06-03-2025 End: 06-03-[address] Steven Akers DO -Medical Out Work Phone: Start: 06-03-2025 End: 06-03-2025 ambulatory Gladys VILLALTA Work Phone: -Medical Out Start: 06-02-2025 End: 06-02-2025 Telephone encounter Steven Akers DO Work Phone: Hematology/Oncology Comment on above: Transfusion Start: 06-02-2025 End: 06-02-2025 ambulatory STEVEN AKERS Facility:[facility] Start: 05-20-2025 End: 05-20-[address] Steven Akers DO -Medical Out Work Phone: Start: 05-20-2025 End: 05-20-2025 ambulatory Sunday OGLESBY Work Phone: -Medical Out Start: 05-19-2025 End: 05-19-2025 Telephone encounter Chang Rosa MD Work Phone: Hematology/Oncology Comment on above: Transfusion Start: 05-19-2025 End: 05-19-2025 ambulatory STEVEN Darrick OSWALD Facility:[facility] Start: 05-08-2025 End: 05-09-2025 Telephone encounter Steven Akers DO Work Phone: Hematology/Oncology Comment on above: Results Start: 05-06-2025 End: 05-06-[address] Steven Akers DO -Medical Out Work Phone: Start: 05-06-2025 End: 05-06-2025 ambulatory Sunday OGLESBY Work Phone: -Medical Out Start: 05-05-2025 End: 05-05-2025 Telephone encounter Steven Akers DO Work Phone: Hematology/Oncology Comment on above: Transfusion Start: 05-05-2025 End: 05-05-2025 Subsequent hospital visit by physician [facility] Work Phone: Radiology Comment on above: MDS (myelodysplastic syndrome), low grade (HCC) [D46.Z] Start: 05-05-2025 End: 05-05-2025 ambulatory STEVEN Darrick OSWALD Facility:[facility] Start: 04-22-2025 End: 04-22-[address] Steven Akers DO -Medical Out Work Phone: Start: 04-22-2025 End: 04-22-2025 ambulatory Sunday OGLESBY Work Phone: [facility] Work Phone: Start: 04-21-2025 End: 04-21-2025 Telephone encounter Steven Akers DO Work Phone: Hematology/Oncology Start: 04-21-2025 End: 04-21-2025 ambulatory Steven Akers DO Work Phone: Hematology/Oncology Comment on above: MDS (myelodysplastic syndrome), low grade (HCC) (Primary Dx); Iron overload; Splenomegaly Start: 04-21-2025 End: 04-21-2025 Patient encounter procedure Steven Akers DO Work Phone: Hematology/Oncology Start: 04-21-2025 End: 04-21-2025 ambulatory GLADYS A SUPPAN Facility:[facility] Start: 04-18-2025 End: 04-18-2025 Refill Gladys A Suppan [employer] Work Phone: [facility] Comment on above: Refill Request Start: 04-08-2025 End: 04-08-[address] Steven [facility] Work Phone: Start: 04-08-2025 End: 04-08-2025 ambulatory Sunday OGLESBY Work Phone: [facility] Work Phone: Start: 04-07-2025 End: 04-07-2025 Telephone encounter Steven Akers DO Work Phone: Hematology/Oncology Comment on above: Transfusion Start: 04-07-2025 End: 04-07-2025 ambulatory GLADYS A SUPPAN Facility:[facility] Start: 03-25-2025 End: 03-25-[address] Steven [facility] Out Work Phone: Start: 03-25-2025 End: 03-25-2025 ambulatory Sunday OGLESBY Work Phone: [facility] Work Phone: Start: 03-24-2025 End: 04-25-2025 Telephone encounter Steven Akers DO Work Phone: Hematology/Oncology Comment on above: transfusion Start: 03-24-2025 End: 03-24-2025 ambulatory GLADYS A SUPPAN Facility:[facility] Start: 03-11-2025 End: 03-11-[address] Steven [facility] Work Phone: Start: 03-11-2025 End: 03-11-2025 ambulatory Gladys Da Silva Facility:[facility] Start: 03-10-2025 End: 03-10-2025 Telephone encounter Steven Akers DO Work Phone: Hematology/Oncology Comment on above: Transfusion Start: 03-10-2025 End: 03-10-2025 ambulatory GLADYS DA SILVA Facility:[facility] Start: 03-04-2025 End: 03-04-2025 ambulatory MARIE LANZA Facility:[facility] Start: 02-25-2025 End: 02-25-[address] Steven Akers DO -Medical Out Work Phone: Start: 02-25-2025 End: 02-25-2025 ambulatory Sunday OGLESBY Work Phone: [facility] Work Phone: Start: 02-24-2025 End: 04-26-2025 Follow-up encounter Gladys Da Silva [employer] Work Phone: [facility] Start: 02-24-2025 End: 02-28-2025 Telephone encounter Steven Akers DO Work Phone: Hematology/Oncology Comment on above: Transfusion Start: 02-24-2025 End: 02-24-2025 Patient encounter procedure Domenica Garcia Work Phone: Hematology/Oncology Start: 02-24-2025 End: 02-24-2025 ambulatory Domenica Garcia Work Phone: Hematology/Oncology Comment on above: MDS (myelodysplastic syndrome), low grade (HCC) (Primary Dx); Chronic midline low back pain without sciatica; 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; Iron overload; Insomnia due to medical condition Start: 02-11-2025 End: 02-11-2025 Telephone encounter Steven Akers DO Work Phone: Hematology/Oncology Comment on above: Transfusion Start: 02-11-2025 End: 02-11-[address] Steven Akers DO -Medical Out Work Phone: Start: 02-11-2025 End: 02-11-2025 ambulatory Gladys Da Silva Facility:[facility] Start: 02-10-2025 Non-patient / Non-visit Dr. Lalo bravo MD -[facility] Start: 02-10-2025 End: 02-11-2025 ambulatory Steven Akers DO Work Phone: Hematology/Oncology Comment on above: Blood transfusion Start: 02-10-2025 End: 02-10-2025 Emergency department patient visit Dr. Esau Hernándezgett DO -Emergency Department Work Phone: Start: 01-28-2025 End: 01-28-2025 Refill Chang Rosa MD Work Phone: Hematology/Oncology Comment on above: Refill Request Start: 01-28-2025 End: 01-28-[address] Steven Akers DO -Medical Out Work Phone: Start: 01-28-2025 End: 01-28-2025 ambulatory Sunday OGLESBY Work Phone: [facility] Work Phone: Start: 01-27-2025 End: 01-27-2025 Telephone encounter Steven Akers DO Work Phone: Hematology/Oncology Comment on above: Transfusion Start: 01-27-2025 End: 01-27-2025 Office outpatient visit 25 minutes Gladys Da Silva [employer] Work Phone: [facility] Comment on above: Hypokalemia (Primary Dx); Anxiety with depression; Urgency of urination; MDS (myelodysplastic syndrome), low grade (HCC); BPH with obstruction/lower urinary tract symptoms; Diastolic dysfunction; Chronic fatigue Start: 01-27-2025 End: 01-28-2025 ambulatory Gladys A Rommel [employer] Work Phone: [facility] Comment on above: Montelukast Start: 01-24-2025 End: 01-24-2025 ambulatory Steven Akers DO Work Phone: Hematology/Oncology Comment on above: Palliative Care Start: 01-22-2025 End: 01-24-2025 Refill Shaheed Cervantes MD Work Phone: [facility] Comment on above: Refill Request Start: 01-14-2025 End: 01-14-[address] Steven [facility] Work Phone: Start: 01-14-2025 End: 01-14-2025 ambulatory Sunday OGLESBY Work Phone: [facility] Work Phone: Start: 01-13-2025 End: 01-13-2025 Telephone encounter Steven Akers DO Work Phone: Hematology/Oncology Comment on above: transfusion Start: 01-13-2025 End: 01-13-2025 ambulatory HETAL CARTER Facility:[facility] Start: 01-05-2025 End: 01-06-2025 Refill Gladys Da Silva APRN.CNP Work Phone: [facility] Comment on above: Refill Request Start: 12-31-2024 End: 12-31-[address] Steven [facility] Work Phone: Start: 12-31-2024 End: 12-31-2024 ambulatory Sundya OGLESBY Facility:[facility] Start: 12-29-2024 End: 12-29-2024 ambulatory HETAL CARTER Facility:[facility] Start: 12-29-2024 End: 12-29-2024 Telephone encounter Steven Akers DO Work Phone: Hematology/Oncology Comment on above: Orders Transfusion Start: 12-21-2024 End: 12-21-2024 Refill Curtis Diaz PA-C Work Phone: Urology Comment on above: Refill Request Start: 12-17-2024 End: 12-17-[address] Steven [facility] Work Phone: Start: 12-17-2024 End: 12-17-2024 ambulatory Sunday OGLESBY Facility:[facility] Start: 12-16-2024 End: 12-16-2024 Telephone encounter Steven Akers DO Work Phone: Hematology/Oncology Comment on above: Transfusion Start: 12-16-2024 End: 12-16-2024 Office outpatient visit 25 minutes Steven Akers DO Work Phone: Hematology/Oncology Comment on above: MDS (myelodysplastic syndrome), low grade (HCC) (Primary Dx); Macrocytic anemia; Iron overload; Chronic midline low back pain without sciatica; 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; Insomnia due to medical condition Start: 12-16-2024 End: 12-16-2024 ambulatory HETAL CARTER Facility:[facility] Start: 12-03-2024 End: 12-03-[address] Steven Akers DO -Medical Out Work Phone: Start: 12-03-2024 End: 12-03-2024 ambulatory Sunday OGLESBY Facility:[facility] Start: 12-02-2024 End: 12-02-2024 Telephone encounter Steven Akers DO Work Phone: Hematology/Oncology Comment on above: transfusion Refill Request Start: 12-02-2024 End: 12-02-2024 ambulatory HETAL CARTER Facility:[facility] Start: 11-12-2024 End: 11-12-[address] Steven [facility] Work Phone: Start: 11-12-2024 End: 11-12-2024 ambulatory Sunday OGLESBY Facility:[facility] Start: 11-11-2024 End: 11-11-2024 Telephone encounter Steven Akers DO Work Phone: Hematology/Oncology Comment on above: Transfusion Start: 11-11-2024 End: 11-11-2024 ambulatory HETAL CARTER Facility:[facility] Start: 11-04-2024 End: 11-04-2024 ambulatory HETAL CARTER Facility:[facility] Start: 10-30-2024 End: 10-31-2024 Refill Steven Akers DO Work Phone: Hematology/Oncology Comment on above: Refill Request Start: 10-30-2024 End: 11-01-2024 Refill Steven Akers DO Work Phone: Hematology/Oncology Comment on above: Refill Request Start: 10-23-2024 End: 10-25-2024 Refill Gladys Da Silva [employer] Work Phone: [facility] Comment on above: Refill Request Start: 10-22-2024 End: 10-22-[address] Steven Akers DO -Medical Out Work Phone: Start: 10-22-2024 End: 10-22-2024 ambulatory Sunday OGLESBY Facility:[facility] Start: 10-20-2024 End: 10-20-2024 Telephone encounter Steven Akers DO Work Phone: Hematology/Oncology Comment on above: Transfusion Start: 10-20-2024 End: 10-20-2024 ambulatory HETAL CARTER Facility:[facility] Start: 10-13-2024 End: 10-13-2024 Telephone encounter Shanell STOVALL Hematology/Oncology Comment on above: Social Work Services Start: 10-13-2024 End: 10-13-2024 Patient encounter procedure Steven Akers DO Work Phone: Hematology/Oncology Start: 10-13-2024 End: 10-13-2024 ambulatory Steven Akers DO Work Phone: Hematology/Oncology Comment on above: MDS (myelodysplastic syndrome), low grade (HCC) (Primary Dx); Macrocytic anemia; 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; Iron overload; Chronic midline low back pain without sciatica Start: 10-10-2024 End: 10-11-2024 Refill Gladys Da Silva [employer] Work Phone: [facility] Comment on above: Refill Request Start: 10-03-2024 End: 10-03-2024 Refill Steven Akers DO Work Phone: Hematology/Oncology Comment on above: Refill Request Start: 10-01-2024 End: 10-01-[address] Steven [facility] Work Phone: Start: 10-01-2024 End: 10-01-2024 ambulatory M Moise OGLESBY Facility:[facility] Start: 09-30-2024 End: 09-30-2024 Telephone encounter Shanell STOVALL Hematology/Oncology Comment on above: Social Work Services Transfusion Start: 09-30-2024 End: 09-30-2024 ambulatory Treatment Rm 9 Jayy [facility] Work Phone: Hematology/Oncology Comment on above: MDS (myelodysplastic syndrome), low grade (HCC) (Primary Dx); Macrocytic anemia Start: 09-27-2024 End: 09-27-2024 Telephone encounter Steven Akers DO Work Phone: Hematology/Oncology Comment on above: Referral Request Start: 09-24-2024 End: 09-24-[address] Steven [facility] [employer] Work Phone: Start: 09-24-2024 End: 09-30-2024 Orders Only Gladys Da Silva [employer] Work Phone: [facility] Comment on above: Subclinical hypothyr oidism Start: 09-23-2024 End: 09-23-2024 Telephone encounter Steven Akers DO Work Phone: Hematology/Oncology Start: 09-23-2024 End: 09-23-2024 ambulatory Treatment Rm 5 Jayy [facility] Work Phone: Hematology/Oncology Comment on above: MDS (myelodysplastic syndrome), low grade (HCC) (Primary Dx); Macrocytic anemia Start: 09-16-2024 End: 09-16-2024 ambulatory Treatment Rm 9 Jayy [facility] Work Phone: Hematology/Oncology Comment on above: MDS (myelodysplastic syndrome), low grade (HCC) (Primary Dx); Macrocytic anemia Start: 09-09-2024 End: 09-09-2024 Telephone encounter Steven A Masci DO Work Phone: Radiation Oncology Comment on above: Transfusion Start: 09-09-2024 End: 09-09-2024 ambulatory Treatment Rm 4 Jayy [facility] [employer] Work Phone: Hematology/Oncology Comment on above: MDS (myelodysplastic syndrome), low grade (HCC) (Primary Dx); Macrocytic anemia Start: 09-02-2024 End: 09-03-2024 Telephone encounter Steven Akers DO Work Phone: Hematology/Oncology Comment on above: Refill Request Start: 09-02-2024 End: 09-02-2024 ambulatory Treatment Rm 3 Jayy [facility] [employer] Work Phone: Hematology/Oncology Comment on above: MDS (myelodysplastic syndrome), low grade (HCC) (Primary Dx); Macrocytic anemia Start: 08-26-2024 End: 08-26-2024 Telephone encounter Steven Akers DO Work Phone: Hematology/Oncology Comment on above: Transfusion Start: 08-26-2024 End: 08-26-2024 ambulatory Treatment Rm 3 Jayy [facility] [employer] Work Phone: Hematology/Oncology Comment on above: Waldenstroms macrogl obulinemia (Primary Dx); MDS (myelodysplastic syndrome), low grade (HCC); Macrocytic anemia Start: 08-19-2024 End: 08-19-2024 ambulatory Treatment Rm 7 Jayy [facility] [employer] Work Phone: Hematology/Oncology Comment on above: MDS (myelodysplastic syndrome), low grade (HCC) (Primary Dx); Macrocytic anemia Start: 08-12-2024 End: 08-12-2024 ambulatory Treatment Rm 8 [facility] [employer] Work Phone: Hematology/Oncology Comment on above: MDS (myelodysplastic syndrome), low grade (HCC) (Primary Dx); Macrocytic anemia Start: 08-05-2024 End: 08-06-2024 ambulatory Treatment Rm 2 Jayy [facility] [employer] Work Phone: Hematology/Oncology Comment on above: MDS (myelodysplastic syndrome), low grade (HCC) (Primary Dx); Macrocytic anemia Refill Request Start: 08-05-2024 End: 08-05-2024 Telephone encounter Steven Akers DO Work Phone: Hematology/Oncology Comment on above: transfusion Start: 07-30-2024 End: 07-30-2024 Refill Steven Akers DO Work Phone: Hematology/Oncology Comment on above: Refill Request Start: 07-28-2024 End: 07-28-2024 ambulatory Treatment Rm 12 Jayy [facility] [employer] Work Phone: Hematology/Oncology Comment on above: MDS (myelodysplastic syndrome), low grade (HCC) (Primary Dx); Macrocytic anemia MDS (myelodysplastic syndrome), low grade (HCC) (Primary Dx); Anemia, unspecified type Start: 07-28-2024 End: 07-28-2024 Patient encounter procedure Steven Akers DO Work Phone: Hematology/Oncology Start: 07-27-2024 End: 07-27-2024 Telephone encounter Gladys Da Silva APRN.[employer] Work Phone: [facility] [place] Comment on above: Results Start: 07-22-2024 End: 07-22-2024 Telephone encounter Steven Akers DO Work Phone: Hematology/Oncology Comment on above: Transfusion Start: 07-22-2024 End: 07-22-2024 ambulatory Treatment Rm 4 [facility] [employer] Work Phone: Hematology/Oncology Comment on above: Waldenstroms macrogl obulinemia (HCC) (Primary Dx); MDS (myelodysplastic syndrome), low grade (HCC); Macrocytic anemia Start: 07-20-2024 End: 07-20-2024 Office outpatient visit 25 minutes Gladys Da Silva APRN.[employer] E[employer] Work Phone: [facility] [employer] Comment on above: Anxiety with depress ion (Primary Dx); Encounter for screening examination for other mental health and behavioral disorders; Screening for depression; Polyneuropathy in other diseases classified elsewhere (HCC); Diastolic dysfunction; Early satiety; MDS (myelodysplastic syndrome), low grade (HCC); Chronic fatigue Start: 07-15-2024 End: 07-15-2024 ambulatory Treatment Rm 7 Jayy [facility] Work Phone: Hematology/Oncology Comment on above: MDS (myelodysplastic syndrome), low grade (HCC) (Primary Dx); Macrocytic anemia Start: 07-10-2024 End: 07-13-2024 Refill Sunday Carter PA-C Work Phone: [facility] Comment on above: Refill Request Start: 07-08-2024 End: 07-08-2024 Telephone encounter Steven Akers DO Work Phone: Hematology/Oncology Start: 07-08-2024 End: 07-08-2024 ambulatory Treatment Rm 4 Jayy [facility] Work Phone: Hematology/Oncology Comment on above: MDS (myelodysplastic syndrome), low grade (HCC) (Primary Dx) Start: 07-03-2024 End: 07-04-2024 Refill Steven Akers DO Work Phone: Hematology/Oncology Comment on above: Refill Request Start: 07-01-2024 End: 07-01-2024 ambulatory Treatment Rm 8 [facility] Work Phone: Hematology/Oncology Comment on above: MDS (myelodysplastic syndrome), low grade (HCC) (Primary Dx); Macrocytic anemia Start: 06-24-2024 Telephone encounter Steven ribera DO Work Phone: Hematology/Oncology Comment on above: Transfusion Start: 06-24-2024 End: 06-24-2024 Subsequent hospital visit by physician [facility] 1 Work Phone: Radiology Comment on above: Splenomegaly [R16.1] Start: 06-24-2024 End: 06-24-2024 ambulatory Treatment Rm 6 Jayy [facility] Work Phone: Hematology/Oncology Comment on above: MDS (myelodysplastic syndrome), low grade (HCC) (Primary Dx); Macrocytic anemia Start: 06-18-2024 Refill Steven Carrasco Work Phone: Hematology/Oncology Comment on above: Refill Request Start: 06-17-2024 End: 06-17-2024 ambulatory Treatment Rm 5 [facility] Work Phone: Hematology/Oncology Comment on above: MDS (myelodysplastic syndrome), low grade (HCC) (Primary Dx); Macrocytic anemia Start: 06-09-2024 Telephone encounter Steven ribera DO Work Phone: Hematology/Oncology Comment on above: Transfusion Patient Update (Righ t sided pain) Start: 06-09-2024 End: 06-09-2024 ambulatory Treatment Rm 12 [facility] Work Phone: Hematology/Oncology Comment on above: MDS (myelodysplastic syndrome), low grade (HCC) (Primary Dx); Macrocytic anemia Start: 06-04-2024 Refill Steven Carrasco Work Phone: Hematology/Oncology Comment on above: Refill Request Start: 06-03-2024 End: 06-03-2024 ambulatory Treatment Rm 9 [facility] Work Phone: Hematology/Oncology Comment on above: MDS (myelodysplastic syndrome), low grade (HCC) (Primary Dx); Macrocytic anemia Start: 05-27-2024 Telephone encounter Steven ribera DO Work Phone: Hematology/Oncology Comment on above: Results; Transfusion Start: 05-27-2024 End: 05-27-2024 ambulatory Treatment Rm 13 [facility] Work Phone: Hematology/Oncology Comment on above: MDS (myelodysplastic syndrome), low grade (HCC) (Primary Dx); Macrocytic anemia Start: 05-20-2024 Telephone encounter Chang quinonez MD Work Phone: Hematology/Oncology Comment on above: late entry-transfusi on Start: 05-20-2024 End: 05-20-2024 ambulatory Treatment Rm 13 [facility] Work Phone: Hematology/Oncology Comment on above: MDS (myelodysplastic syndrome), low grade (HCC) (Primary Dx); Macrocytic anemia Start: 05-12-2024 End: 05-12-2024 ambulatory Treatment Rm 13 [facility] Work Phone: Hematology/Oncology Comment on above: MDS (myelodysplastic syndrome), low grade (HCC) (Primary Dx); Macrocytic anemia Start: 05-11-2024 ambulatory Steven Carrasco Work Phone: Hematology/Oncology Comment on above: Injection site bruis e Start: 05-10-2024 Telephone encounter Steven ribera DO Work Phone: Hematology/Oncology Comment on above: Patient Update Start: 05-06-2024 End: 05-06-2024 ambulatory Steven Akers DO Work Phone: Hematology/Oncology Comment on above: Red spot on my face Spot on cheek Refill Request MDS (myelodysplastic syndrome), low grade (HCC) (Primary Dx); Macrocytic anemia Start: 05-06-2024 Telephone encounter Steven ribera DO Work Phone: Hematology/Oncology Comment on above: Patient Update Start: 05-02-2024 Refill Chang renteria MD Work Phone: Hematology/Oncology Comment on above: Refill Request Start: 04-29-2024 End: 04-29-2024 ambulatory Treatment Rm 13 [facility] Work Phone: Hematology/Oncology Comment on above: MDS (myelodysplastic syndrome), low grade (HCC) (Primary Dx); Macrocytic anemia Start: 04-21-2024 Telephone encounter Steven ribera DO Work Phone: Hematology/Oncology Comment on above: Transfusion Follow Up Start: 04-15-2024 Telephone encounter Steven ribera DO Work Phone: Hematology/Oncology Comment on above: Transfusion Start: 04-15-2024 End: 04-15-2024 ambulatory Treatment Rm 13 [facility] Work Phone: Hematology/Oncology Comment on above: MDS (myelodysplastic syndrome), low grade (HCC) (Primary Dx); Macrocytic anemia Start: 04-11-2024 Refill Sunday ISBELLC Work Phone: [facility] Comment on above: Refill Request Start: 04-08-2024 End: 04-08-2024 ambulatory Treatment Rm 13 [facility] Work Phone: Hematology/Oncology Comment on above: MDS (myelodysplastic syndrome), low grade (HCC) (Primary Dx); Macrocytic anemia Start: 04-02-2024 Refill Steven Carrasco Work Phone: Hematology/Oncology Comment on above: Refill Request Start: 04-01-2024 Telephone encounter Steven ribera DO Work Phone: Hematology/Oncology Comment on above: Transfusion Start: 04-01-2024 End: 04-01-2024 ambulatory Treatment Rm 13 [facility] Work Phone: Hematology/Oncology Comment on above: MDS (myelodysplastic syndrome), low grade (HCC) (Primary Dx); Macrocytic anemia Start: 03-25-2024 End: 03-25-2024 ambulatory Treatment Rm 13 [facility] Work Phone: Hematology/Oncology Comment on above: MDS (myelodysplastic syndrome), low grade (HCC) (Primary Dx); Macrocytic anemia Start: 03-22-2024 End: 03-22-2024 ambulatory MENDEL OGLESBY Work Phone: [facility] Work Phone: Comment on above: Restless Legs & Hand s Start: 03-22-2024 End: 03-22-2024 Patient encounter procedure MENDEL OGLESBY Work Phone: [facility] Work Phone: Start: 03-19-2024 End: 03-19-2024 ambulatory Treatment Rm 2 [facility] Work Phone: Hematology/Oncology Comment on above: MDS (myelodysplastic syndrome), low grade (HCC) (Primary Dx); Macrocytic anemia Start: 03-19-2024 Telephone encounter Steven ribera DO Work Phone: Hematology/Oncology Comment on above: Transfusion Start: 03-16-2024 Telephone encounter Steven ribera DO Work Phone: Hematology/Oncology Comment on above: Appointment Start: 03-11-2024 End: 03-11-2024 ambulatory Treatment Rm 13 Jayy [facility] Work Phone: Hematology/Oncology Comment on above: Macrocytic anemia (P rimary Dx); MDS (myelodysplastic syndrome), low grade (HCC) Start: 03-05-2024 End: 03-05-2024 ambulatory MENDEL OGLESBY Work Phone: [facility] Work Phone: Start: 03-05-2024 End: 03-05-2024 Patient encounter procedure MENDEL OGLESBY Work Phone: [facility]Medical [facility] Work Phone: Start: 03-04-2024 Telephone encounter Steven ribera DO Work Phone: Hematology/Oncology Comment on above: Transfusion Refill Request Start: 03-04-2024 End: 03-04-2024 ambulatory Treatment Rm 7 Jayy [facility] Work Phone: Hematology/Oncology Comment on above: Macrocytic anemia (P rimary Dx); MDS (myelodysplastic syndrome), low grade (HCC) Start: 02-26-2024 End: 02-26-2024 ambulatory Treatment Rm 13 Jayy [facility] Work Phone: Hematology/Oncology Comment on above: Macrocytic anemia (P rimary Dx); MDS (myelodysplastic syndrome), low grade (HCC) Start: 02-20-2024 End: 02-20-2024 ambulatory MENDEL OGLESBY Work Phone: [facility] Work Phone: Start: 02-20-2024 End: 02-20-2024 Patient encounter procedure [facility]ENDEL OGLESBY [facility] Start: 02-19-2024 End: 02-19-2024 ambulatory Treatment Rm 13 [facility] Work Phone: Hematology/Oncology Comment on above: Macrocytic anemia (P rimary Dx); MDS (myelodysplastic syndrome), low grade (HCC) Start: 02-19-2024 Telephone encounter Salena Ricardo RN He matology/Oncology Comment on above: 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 Leader - O ther (Toxicity Check ) Start: 02-13-2024 Telephone encounter Layla teran RN Work Phone: Hematology/Oncology Comment on above: Care Coordination (C YCLE 1/DAY 1 POST TREATMENT CALL ) Start: 02-12-2024 End: 02-12-2024 ambulatory Treatment Rm 11 Jayy [facility] Work Phone: Hematology/Oncology Comment on above: Waldenstroms macrogl obulinemia (HCC) (Primary Dx); Macrocytic anemia; MDS (myelodysplastic syndrome), low grade (HCC) Start: 02-11-2024 Orders Only Steven Pepper O Work Phone: Hematology/Oncology Comment on above: MDS (myelodysplastic syndrome), low grade (HCC) (Primary Dx); Macrocytic anemia; 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 (HCC); Iron overload, transfusional Start: 02-09-2024 End: 02-09-2024 salt miner [facility] Work Phone: Hematology/Oncology Comment on above: Encounter for educat ion (Primary Dx); MDS (myelodysplastic syndrome), low grade (HCC) Start: 01-30-2024 End: 01-30-2024 ambulatory MENDEL OGLESBY Work Phone: [facility] Work Phone: Start: 01-30-2024 End: 01-30-2024 Patient encounter procedure MENDEL OGLESBY Work Phone: [facility]Medical Out Work Phone: Start: 01-29-2024 Telephone encounter Salena Ricardo RN He matology/Oncology Comment on above: 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 Leader - O ther (Introduction) AVS 01/29/24, CHEMO S TART WK OF 02/08 Start: 01-29-2024 End: 01-29-2024 ambulatory Injection Jayy [facility] Work Phone: Hematology/Oncology Comment on above: MDS (myelodysplastic syndrome), low grade (HCC) (Primary Dx) MDS (myelodysplastic syndrome), low grade (HCC) (Primary Dx); Macrocytic anemia; 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 (HCC); Iron overload, transfusional Start: 01-29-2024 End: 01-29-2024 Patient encounter procedure Steven Akers DO Work Phone: [facility] Start: 01-28-2024 Orders Only Steven Pepper O Work Phone: Hematology/Oncology Comment on above: MDS (myelodysplastic syndrome), low grade (HCC) (Primary Dx); 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 (HCC); Iron overload, transfusional; Idiopathic aplastic anemia (HCC) Start: 01-24-2024 Refill Sunday Bhatt on [employer] Work Phone: [facility] Comment on above: Refill Request Start: 01-15-2024 End: 01-15-2024 Patient encounter procedure Sunday Carter [employer] [facility] Work Phone: [facility] Comment on above: Diastolic dysfunctio n (Primary Dx); Abnormal echocardiogram; Pulmonary hypertension (HCC); MDS (myelodysplastic syndrome), low grade (HCC); 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 (HCC); Idiopathic aplastic anemia (HCC); Polyneuropathy in other diseases classified elsewhere (HCC); Pancytopenia (HCC); Iron overload, transfusional; Elevated ferritin; Chronic GERD; Early satiety; BPH with obstruction/lower urinary tract symptoms; Urinary retention; Chronic insomnia Start: 01-12-2024 End: 01-12-2024 Patient encounter procedure MENDEL OGLESBY Work Phone: [facility] Work Phone: Start: 01-10-2024 Refill Sunday Bhatt on [employer] Work Phone: [facility] [place] Comment on above: Refill Request; Refi ll Request Start: 01-08-2024 End: 01-08-2024 ambulatory Injection Jayy [facility] Work Phone: Hematology/Oncology Comment on above: Idiopathic aplastic anemia (HCC) (Primary Dx); MDS (myelodysplastic syndrome), low grade (HCC) Start: 01-02-2024 End: 01-02-2024 [facility] Work Phone: Start: 01-02-2024 End: 01-02-2024 Patient encounter procedure [facility] Work Phone: Start: 01-01-2024 Telephone encounter Steven ribera DO Work Phone: Hematology/Oncology Comment on above: Transfusion Start: 12-31-2023 ambulatory Steven Carrasco Work Phone: Hematology/Oncology Comment on above: Labs Start: 12-12-2023 End: 12-12-2023 [facility] Work Phone: Start: 12-12-2023 End: 12-12-2023 Patient encounter procedure [facility] Work Phone: Start: 12-11-2023 Telephone encounter Steven ribera DO Work Phone: Hematology/Oncology Comment on above: Transfusion Start: 11-28-2023 End: 11-28-2023 ambulatory [facility] Work Phone: Start: 11-28-2023 End: 11-28-2023 Patient encounter procedure [facility] Work Phone: Start: 11-14-2023 End: 11-14-2023 [facility] Work Phone: Start: 11-14-2023 End: 11-14-2023 Patient encounter procedure [facility] Work Phone: Start: 10-17-2023 End: 10-17-2023 Patient encounter procedure [facility] Work Phone: Start: 10-16-2023 End: 10-16-2023 Patient encounter procedure Steven Akers DO Work Phone: [facility] Start: 10-16-2023 End: 10-16-2023 ambulatory Injection Jayy [facility] Work Phone: Hematology/Oncology Comment on above: Idiopathic aplastic anemia (HCC) (Primary Dx); MDS (myelodysplastic syndrome), low grade (HCC) MDS (myelodysplastic syndrome), low grade (HCC) (Primary Dx); 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 (HCC); Iron overload, transfusional Start: 09-25-2023 End: 09-25-2023 ambulatory Injection Jayy [facility] Work Phone: Hematology/Oncology Comment on above: Idiopathic aplastic anemia (HCC) (Primary Dx); MDS (myelodysplastic syndrome), low grade (HCC) Handicap placard Handicap Placard Req uest Start: 09-19-2023 End: 09-19-2023 ambulatory [facility] Work Phone: Start: 09-19-2023 End: 09-19-2023 Patient encounter procedure [facility] Work Phone: Start: 09-18-2023 ambulatory Steven Carrasco Work Phone: Hematology/Oncology Comment on above: Labs Start: 09-18-2023 Telephone encounter Shanell STOVALL Hematology/Oncology Comment on above: 2023 [employer] Transfusion Start: 09-04-2023 End: 09-04-2023 ambulatory Injection Jayy [facility] Work Phone: Hematology/Oncology Comment on above: Idiopathic aplastic anemia (HCC) (Primary Dx); MDS (myelodysplastic syndrome), low grade (HCC) Start: 09-04-2023 Telephone encounter Steven ribera DO Work Phone: Hematology/Oncology Comment on above: Erroneous encounter- disregard Start: 08-22-2023 End: 08-22-2023 Patient encounter procedure [facility] Work Phone: Start: 08-21-2023 Telephone encounter Steven ribera DO Work Phone: Hematology/Oncology Comment on above: Transfusion Start: 08-14-2023 End: 08-14-2023 ambulatory Injection Jayy [facility] Work Phone: Hematology/Oncology Comment on above: Idiopathic aplastic anemia (HCC) (Primary Dx); MDS (myelodysplastic syndrome), low grade (HCC) Start: 08-08-2023 End: 08-08-2023 Patient encounter procedure [facility] Work Phone: Start: 07-21-2023 ambulatory Steven Carrasco Work Phone: Hematology/Oncology Comment on above: Labs Start: 07-21-2023 Telephone encounter Steven ribera DO Work Phone: Hematology/Oncology Comment on above: Patient Update Start: 07-07-2023 ambulatory Steven Carrasco Work Phone: Hematology/Oncology Comment on above: Labs scheduled for Venkatesh trevino Start: 07-04-2023 End: 07-04-2023 ambulatory MENDEL OGLESBY Work Phone: [facility] Work Phone: Start: 07-04-2023 End: 07-04-2023 Patient encounter procedure MENDEL OGLESBY Work Phone: [facility] Work Phone: Start: 07-03-2023 Telephone encounter Steven ribera DO Work Phone: Hematology/Oncology Comment on above: Transfusion Start: 07-03-2023 End: 07-03-2023 Patient encounter procedure Sunday Carter PA-C Work Phone: [facility] Comment on above: MDS (myelodysplastic syndrome), low grade (HCC) (Primary Dx); 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 (HCC); Pulmonary hypertension, mild (HCC); Diastolic dysfunction; Iron overload, transfusional; ROSS (obstructive sleep apnea); Polyneuropathy in other diseases classified elsewhere (HCC); Chronic GERD Start: 07-03-2023 End: 07-03-2023 Patient encounter procedure Steven Akers DO Work Phone: [facility] Start: 07-03-2023 End: 07-03-2023 ambulatory Injection Jayy [facility] Work Phone: Hematology/Oncology Comment on above: Idiopathic aplastic anemia (HCC) (Primary Dx); MDS (myelodysplastic syndrome), low grade (HCC) MDS (myelodysplastic syndrome), low grade (HCC) (Primary Dx); Iron overload, transfusional; 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 (HCC) Start: 06-23-2023 Refill Sunday Bhatt on PA-C Work Phone: [facility] Comment on above: Refill Request Start: 06-23-2023 Refill Sunday Bhatt on PA-C Work Phone: [facility] Comment on above: Med Change Request Start: 06-20-2023 End: 06-20-2023 ambulatory MENDEL OGLESBY Work Phone: [facility] Work Phone: Start: 06-20-2023 End: 06-20-2023 Patient encounter procedure MENDEL OGLESBY Work Phone: [facility] Work Phone: Start: 06-19-2023 End: 06-19-2023 Emergency department patient visit MENDEL OGLESBY Work Phone: [facility]-Emergency Department Work Phone: Start: 06-12-2023 End: 06-12-2023 ambulatory Steven Akers DO Work Phone: Hematology/Oncology Comment on above: MDS (myelodysplastic syndrome), low grade (HCC) (Primary Dx); 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 (HCC); Iron overload, transfusional; Renal cyst Idiopathic aplastic anemia (HCC) (Primary Dx); MDS (myelodysplastic syndrome), low grade (HCC) Start: 06-12-2023 End: 06-12-2023 Patient encounter procedure Steven Akers DO Work Phone: [facility] Start: 06-06-2023 End: 06-06-2023 Patient encounter procedure MENDEL OGLESBY [facility] Start: 06-05-2023 Telephone encounter Steven ribera DO Work Phone: Hematology/Oncology Comment on above: Transfusion Start: 06-05-2023 End: 06-06-2023 ambulatory MENDEL OGLESBY Work Phone: [facility] Work Phone: Start: 06-05-2023 End: 06-06-2023 Patient encounter procedure MENDEL OGLESBY Work Phone: [facility] Work Phone: Start: 05-22-2023 End: 05-22-2023 ambulatory Steven Akers DO Work Phone: Hematology/Oncology Comment on above: MDS (myelodysplastic syndrome), low grade (HCC) (Primary Dx); Macrocytic anemia; 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 (HCC); Iron overload, transfusional; Renal cyst; Hypervolemia, unspecified hypervolemia type Start: 05-22-2023 End: 05-22-2023 Patient encounter procedure Steven Akers DO Work Phone: [facility] Start: 05-02-2023 End: 05-02-2023 ambulatory MENDEL OGLESBY Work Phone: [facility] Work Phone: Start: 05-02-2023 End: 05-02-2023 Patient encounter procedure MENDEL OGLESBY Work Phone: [facility] Start: 05-01-2023 End: 05-01-2023 ambulatory Injection Jayy [facility] Work Phone: Hematology/Oncology Comment on above: Idiopathic aplastic anemia (HCC) (Primary Dx); MDS (myelodysplastic syndrome), low grade (HCC) Miralax MDS (myelodysplastic syndrome), low grade (HCC) (Primary Dx); Pancytopenia (HCC); Left lower quadrant abdominal pain Start: 05-01-2023 Chart abstracting Dottie Berry RN Hematology/Oncology Comment on above: Research (Consent 50 24) Start: 05-01-2023 Telephone encounter Steven ribera DO Work Phone: Hematology/Oncology Comment on above: Transfusion Results Start: 05-01-2023 End: 05-01-2023 Subsequent hospital visit by physician Xr [facility] Work Phone: Radiology Comment on above: MDS (myelodysplastic syndrome), low grade (HCC) [D46.Z] Start: 05-01-2023 End: 05-01-2023 Patient encounter procedure Sisi Blanchard GOLD MINER.AERIAL ERECTOR Work Phone: [facility] Start: 04-18-2023 End: 04-18-2023 Patient encounter procedure MENDEL OGLESBY Work Phone: [facility] Start: 04-10-2023 Telephone encounter Sisi minor APRN.AERIAL ERECTOR Work Phone: Hematology/Oncology Comment on above: AVS 6 Start: 04-10-2023 End: 04-10-2023 ambulatory Injection Jayy [facility] Work Phone: Hematology/Oncology Comment on above: Idiopathic aplastic anemia (HCC) (Primary Dx); MDS (myelodysplastic syndrome), low grade (HCC) MDS (myelodysplastic syndrome), low grade (HCC) (Primary Dx); Pancytopenia (HCC) Start: 04-10-2023 End: 04-10-2023 Patient encounter procedure Sisi Blanchard GOLD MINER.AERIAL ERECTOR Work Phone: [facility] Start: 04-08-2023 Telephone encounter Sunday Carter PA-C Work Phone: [facility] [place] Comment on above: Insurance Authorizat ion Start: 04-04-2023 End: 04-04-2023 Patient encounter procedure MENDEL OGLESBY Work Phone: [facility] Start: 03-21-2023 End: 03-21-2023 ambulatory MENDEL OGLESBY Work Phone: [facility] Work Phone: Start: 03-21-2023 End: 03-21-2023 Patient encounter procedure MENDEL OGLESBY Work Phone: [facility] Out Start: 03-20-2023 Telephone encounter Steven Darrick Amadou ribera DO Work Phone: Hematology/Oncology Comment on above: Transfusion Start: 03-20-2023 End: 03-20-2023 Patient encounter procedure MENDEL OGLESBY Work Phone: [facility]-Laboratory, Specimen Start: 03-20-2023 End: 03-20-2023 ambulatory Injection Jayy [facility] Work Phone: Hematology/Oncology Comment on above: Idiopathic aplastic anemia (HCC) (Primary Dx); MDS (myelodysplastic syndrome), low grade (HCC) Start: 03-12-2023 Telephone encounter Shanell STOVALL Hematology/Oncology Comment on above: Medication Assistanc e Start: 03-10-2023 Non-patient / Non-visit MENDEL OGLESBY Work Phone: [facility] Start: 03-10-2023 End: 03-10-2023 ambulatory MENDEL OGLESBY Work Phone: [facility] Work Phone: Start: 03-10-2023 End: 03-10-2023 Patient encounter procedure MENDEL OGLESBY Work Phone: [facility]-Cardiovascu lar Services Start: 03-07-2023 End: 03-07-2023 Emergency department patient visit MENDEL OGLESBY Work Phone: [facility]-Emergency Department Start: 03-07-2023 End: 03-07-2023 ambulatory MENDEL OGLESBY Work Phone: [facility] Work Phone: Start: 03-07-2023 End: 03-07-2023 Patient encounter procedure MENDEL OGLESBY Work Phone: [facility]Medical Out Start: 03-06-2023 Telephone encounter Steven ribera DO Work Phone: Hematology/Oncology Comment on above: Transfusion Appointment Med Assist Start: 03-06-2023 End: 03-06-2023 ambulatory MENDEL OGLESBY Work Phone: [facility] Work Phone: Start: 03-06-2023 End: 03-06-2023 Patient encounter procedure MENDEL OGLESBY Work Phone: [facility]-Laboratory Start: 03-05-2023 ambulatory Steven Carrasco Work Phone: Hematology/Oncology Comment on above: Labs Start: 02-28-2023 End: 02-28-2023 Non-patient / Non-visit MENDEL OGLESBY Work Phone: [facility] Work Phone: Start: 02-28-2023 Registered Referred MENDEL OGLESBY Work Phone: [facility]Cardiovasc[facility] lar Services Start: 02-27-2023 End: 02-27-2023 ambulatory Injection Jayy [facility] Work Phone: Hematology/Oncology Comment on above: Idiopathic aplastic anemia (HCC) (Primary Dx); MDS (myelodysplastic syndrome), low grade (HCC) MDS (myelodysplastic syndrome), low grade (HCC) (Primary Dx) Start: 02-27-2023 End: 02-27-2023 Patient encounter procedure Sisi Blanchard GOLD MINER.AERIAL ERECTOR Work Phone: [facility] Start: 02-19-2023 ambulatory Steven Carrasco Work Phone: Hematology/Oncology Comment on above: Help with payment of Luspatercept Start: 02-17-2023 End: 02-17-2023 Patient encounter procedure MENDEL OGLESBY Work Phone: [facility] Start: 02-13-2023 Telephone encounter Steven ribera DO Work Phone: Hematology/Oncology Comment on above: Patient Update Start: 02-10-2023 Telephone encounter Financial Navigator Jayy Work Phone: Financial Services Comment on above: Benefits Investigati on Start: 02-06-2023 End: 02-06-2023 ambulatory Injection Jayy [facility] Work Phone: Hematology/Oncology Comment on above: Idiopathic aplastic anemia (HCC) (Primary Dx); MDS (myelodysplastic syndrome), low grade (HCC) Refill Request Start: 02-05-2023 Orders Only Steven Carrasco Work Phone: Hematology/Oncology Comment on above: MDS (myelodysplastic syndrome), low grade (HCC) (Primary Dx); 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 (HCC); 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); Renal cyst; Iron overload, transfusional Start: 02-04-2023 Telephone encounter Steven ribera DO Work Phone: Hematology/Oncology Comment on above: pain management Start: 02-01-2023 Refill Sunday gibson PA-C Work Phone: [facility] Comment on above: Refill Request Start: 01-27-2023 End: 01-27-2023 ambulatory MENDEL OGLESBY Work Phone: [facility] Work Phone: Start: 01-27-2023 End: 01-27-2023 Patient encounter procedure MENDEL OGLESBY Work Phone: [facility]-Medical Out Start: 01-24-2023 End: 01-24-2023 ambulatory Steven Akers DO Work Phone: Hematology/Oncology Comment on above: MDS (myelodysplastic syndrome), low grade (HCC) (Primary Dx); 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); 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 (HCC); Renal cyst; Iron overload, transfusional Start: 01-24-2023 End: 01-24-2023 Patient encounter procedure Steven Akesr DO Work Phone: [facility] Start: 01-24-2023 Telephone encounter Shanell STOVALL Hematology/Oncology Comment on above: Social Work Services 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 Leader - O ther Orders Transfusion Start: 01-09-2023 End: 01-09-2023 Patient encounter procedure MENDEL [facility]GLESBY [facility] Start: 01-08-2023 Telephone encounter Steven ribera DO Work Phone: Hematology/Oncology Comment on above: Transfusion Start: 01-08-2023 End: 01-08-2023 ambulatory Steven Akers DO Work Phone: Hematology/Oncology Comment on above: MDS (myelodysplastic syndrome), low grade (HCC) (Primary Dx); 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 (HCC) Start: 01-08-2023 End: 01-08-2023 Patient encounter procedure Steven Akers DO Work Phone: [facility] Start: 01-07-2023 Orders Only Steven Pepper O Work Phone: Hematology/Oncology Comment on above: MDS (myelodysplastic syndrome), low grade (HCC) (Primary Dx); Macrocytic anemia; 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 (HCC) Start: 12-23-2022 Ernstill Sunday gibson PA-C Work Phone: [facility] Comment on above: Refill Request Start: 12-19-2022 End: 12-19-2022 Patient encounter procedure MENDEL OGLESBY Work Phone: [facility] Start: 12-18-2022 End: 12-18-2022 ambulatory Steven Akers DO Work Phone: Hematology/Oncology Comment on above: MDS (myelodysplastic syndrome), low grade (HCC) (Primary Dx); Macrocytic anemia; 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 (HCC); Renal cyst; Iron overload, transfusional Start: 12-18-2022 End: 12-18-2022 Patient encounter procedure Steven Akers DO Work Phone: [facility] Start: 12-18-2022 Telephone encounter Steven ribera DO Work Phone: Hematology/Oncology Comment on above: Transfusion Start: 12-17-2022 Orders Only Steven Carrasco Work Phone: Hematology/Oncology Comment on above: MDS (myelodysplastic syndrome), low grade (HCC) (Primary Dx); 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 (HCC); Splenomegaly Start: 12-10-2022 End: 12-10-2022 Subsequent hospital visit by physician [facility] (I-Stat) Work Phone: Cat Scan Comment on above: MDS (myelodysplastic syndrome), low grade (HCC) [D46.Z] Start: 11-30-2022 Refill Curtis Diaz PA-C Work Phone: Urology Comment on above: Refill Request Start: 11-26-2022 End: 11-26-2022 ambulatory Steven Akers DO Work Phone: Hematology/Oncology Comment on above: MDS (myelodysplastic syndrome), low grade (HCC) (Primary Dx); 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 (HCC); Waldenstrom macroglobulinemia (HCC); Splenomegaly Start: 11-26-2022 End: 11-26-2022 Patient encounter procedure Steven Akers DO Work Phone: [facility] Start: 11-25-2022 Orders Only Steven Carrasco Work Phone: Hematology/Oncology Comment on above: MDS (myelodysplastic syndrome), low grade (HCC) (Primary Dx); 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 (HCC) Start: 11-13-2022 Registered Recurring MENDEL Perdomo PA Work Phone: [facility] Oncology Start: 11-13-2022 End: 11-13-2022 Patient encounter procedure MENDEL OGLESBY Work Phone: [facility] Start: 10-29-2022 Telephone encounter Steven ribera DO Work Phone: Hematology/Oncology Comment on above: Patient Question Start: 10-10-2022 End: 10-10-2022 Patient encounter procedure PA NA Carter PA Work Phone: [facility] Start: 06-21-2022 Telephone encounter Sunday Carter PA-C Work Phone: [facility] Comment on above: Patient Update Start: 05-31-2022 Telephone encounter Sunday Carter PA-C Work Phone: [facility] Comment on above: Patient Update; Orde rs Start: 05-20-2022 Telephone encounter Sunday Carter PA-C Work Phone: [facility] Comment on above: Patient Update Start: 05-14-2022 Telephone encounter Sunday Carter PA-C Work Phone: [facility] Comment on above: Home Health Orders Start: 05-14-2022 Non-patient / Non-visit PA NA Carter PA Work Phone: [facility] Inpatient Physicians Start: 05-13-2022 Non-patient / Non-visit PA NA Carter PA Work Phone: [facility] Inpatient Physicians Start: 05-12-2022 Non-patient / Non-visit PA NA Carter PA Work Phone: [facility] Inpatient Physicians Start: 05-11-2022 Non-patient / Non-visit PA NA Carter PA Work Phone: [facility] Inpatient Physicians Start: 05-10-2022 Non-patient / Non-visit PA NA Carter PA Work Phone: [facility] Start: 05-09-2022 End: 05-14-2022 Evaluation and management of inpatient PA NA Carter PA Work Phone: [facility]-Medical Surgical 3 Start: 05-09-2022 Non-patient / Non-visit PA NA Carter PA Work Phone: [facility] Inpatient Physicians Start: 05-01-2022 Registered Recurring PA NA Bar ton PA Work Phone: [facility] Oncology Start: 04-30-2022 End: 04-30-2022 Patient encounter procedure PA IRENA Bhatton PA Work Phone: [facility] Start: 04-26-2022 End: 04-26-2022 Patient encounter procedure PA NA Carter PA Work Phone: [facility] Start: 04-17-2022 End: 04-17-2022 Patient encounter procedure PA NA Carter PA Work Phone: [facility] Start: 04-02-2022 End: 04-02-2022 Patient encounter procedure PA NA Carter PA Work Phone: [facility] Start: 03-21-2022 End: 03-21-2022 Patient encounter procedure PA NA Carter PA Work Phone: [facility] Start: 03-15-2022 Non-patient / Non-visit PA NA Carter PA Work Phone: [facility] Start: 03-07-2022 End: 03-07-2022 Patient encounter procedure PA NA Carter PA Work Phone: [facility] Start: 02-15-2022 Registered Recurring PA NA Bar ton PA Work Phone: [facility] Oncology Start: 02-14-2022 End: 02-14-2022 Patient encounter procedure PA NA Carter PA Work Phone: [facility] Start: 02-02-2022 Refill Shaheed Cervantes MD Work Phone: [facility] Comment on above: Refill Request Start: 12-25-2021 End: 12-25-2021 Patient encounter procedure PA NA Carter PA Work Phone: [facility] Start: 12-18-2021 End: 12-18-2021 Patient encounter procedure MENDEL OGLESBY [facility] Start: 12-06-2021 End: 12-06-2021 Patient encounter procedure MENDEL OGLESBY Work Phone: [facility] Start: 11-23-2021 End: 11-23-2021 Patient encounter procedure MENDEL OGLESBY Work Phone: [facility]-Medical Out Start: 09-14-2021 End: 09-14-2021 Subsequent hospital visit by physician Xr [facility] Work Phone: Radiology Comment on above: Prostatitis, acute [ N41.0] Procedures Date Procedure Procedure Detail Performing Clinician Start: 02-10-2025 CT of abdomen and pe lvis without contrast IRENA OGLESBY Work Phone: Start: 02-10-2025 Estimated creatinine clearance IRENA OLGESBY Work Phone: Start: 02-10-2025 Urnls dip stick/tabl et reagent auto microscopy IRENA OGLESBY Work Phone: Start: 07-20-2024 Adult depression scr eening assessment Gladys Da Silva GOLD MINER.AERIAL ERECTOR Work Phone: Start: 06-19-2023 Plain chest X-ray MENDEL OGLESBY Work Phone: Start: 05-01-2023 Radiologic exam abdo men 1 view Sisi Blanchard GOLD MINER.AERIAL ERECTOR Work Phone: Start: 03-07-2023 Computed tomography of abdomen and pelvis with intravenous contrast MENDEL OGLESBY Work Phone: Start: 01-08-2023 Diagnostic bone ximena ow biopsies Steven Akers DO Work Phone: Start: 12-10-2022 Ct abdomen & pelvis w/contrast material Steven Akers DO Work Phone: Start: 12-10-2022 Ct thorax w/contrast material Steven Akers DO Work Phone: Start: 05-09-2022 Plain chest X-ray MENDEL OGLESBY Work Phone: Start: 03-27-2022 Positron emission tomography with computed tomography MENDEL OGLESBY Work Phone: Start: 03-07-2022 CT of chest and abdomen MENDEL OGLESBY Work Phone: Start: 12-06-2021 MRI of lumbar spine MENDEL OGLESBY Work Phone: Start: 09-14-2021 Radiologic exam abdo men 1 view Shaheed Cervantes MD Work Phone: Start: 06-13-2021 Adult depression scr eening assessment Shaheed Cervantes MD Work Phone: Urine culture MENDEL Hollingsworth Work Phone: Viral antigen assay MENDEL OGLESBY Work Phone: Plan of Treatment Date Care Activity Detail Author Start: 05-05-2028 Diabetes Screening Diabetes Screening [facility] Start: 04-21-2028 Diabetes Screening Diabetes Screening [facility] Start: 04-07-2028 Diabetes Screening Diabetes Screening [facility] Start: 02-25-2028 Diabetes Screening Diabetes Screening [facility] Start: 01-28-2028 Diabetes Screening Diabetes Screening [facility] Start: 01-14-2028 Diabetes Screening Diabetes Screening [facility] Start: 12-29-2027 Diabetes Screening Diabetes Screening [facility] Start: 12-16-2027 Diabetes Screening Diabetes Screening [facility] Start: 12-02-2027 Diabetes Screening Diabetes Screening [facility] Start: 11-11-2027 Diabetes Screening Diabetes Screening [facility] Start: 10-20-2027 Diabetes Screening Diabetes Screening [facility] Start: 10-13-2027 Diabetes Screening Diabetes Screening [facility] Start: 09-30-2027 Diabetes Screening Diabetes Screening [facility] Start: 09-23-2027 Diabetes Screening Diabetes Screening [facility] Start: 09-16-2027 Diabetes Screening Diabetes Screening [facility] Start: 09-09-2027 Diabetes Screening Diabetes Screening [facility] Start: 09-02-2027 Diabetes Screening Diabetes Screening [facility] Start: 08-26-2027 Diabetes Screening Diabetes Screening [facility] Start: 08-19-2027 Diabetes Screening Diabetes Screening [facility] Start: 08-12-2027 Diabetes Screening Diabetes Screening [facility] Start: 08-05-2027 Diabetes Screening Diabetes Screening [facility] Start: 07-28-2027 Diabetes Screening Diabetes Screening [facility] Start: 07-22-2027 Diabetes Screening Diabetes Screening [facility] Start: 07-08-2027 Diabetes Screening Diabetes Screening [facility] Start: 07-01-2027 Diabetes Screening Diabetes Screening [facility] Start: 06-24-2027 Diabetes Screening Diabetes Screening [facility] Start: 06-17-2027 Diabetes Screening Diabetes Screening [facility] Start: 06-09-2027 Diabetes Screening Diabetes Screening [facility] Start: 06-03-2027 Diabetes Screening Diabetes Screening [facility] Start: 05-27-2027 Diabetes Screening Diabetes Screening [facility] Start: 05-20-2027 Diabetes Screening Diabetes Screening [facility] Start: 05-12-2027 Diabetes Screening Diabetes Screening [facility] Start: 04-21-2027 Diabetes Screening Diabetes Screening [facility] Start: 01-28-2027 Diabetes Screening Diabetes Screening [facility] Start: 02-27-2026 DIABETES SCREEN DIABETES SCREEN [facility] Start: 02-27-2026 Diabetes Screening Diabetes Screening [facility] Start: 02-06-2026 DIABETES SCREEN DIABETES SCREEN [facility] Start: 01-27-2026 Covid-19 Vaccine (#1) Covid-19 Vaccine (#1) [facility] Comment on above: Postponed from 1950 (Declined at t his time) Start: 01-27-2026 RSV Vaccine (1 - 1-dose 75+ series) RSV Vaccine (1 - 1-dose 75+ series) [facility] Comment on above: Postponed from 2019 (Declined at t his time) Start: 01-27-2026 Shingrix Vaccine (1 of 2) Shingrix Vaccine (1 of 2) [facility] Comment on above: Postponed from 09/01/2013 (Declined at t his time) Start: 11-26-2025 DIABETES SCREEN DIABETES SCREEN [facility] Start: 09-09-2025 End: 09-09-2025 Patient encounter procedure Departed Clinical -Medical Out Work Phone: Start: 09-09-2025 Administration of blood product [facility] Start: 09-09-2025 [facility] Start: 09-08-2025 End: 09-08-2025 ambulatory 09/08/2025 11:00 AM EDT Results Only [facility] [address] [place] [place] [address] (SO)CBC(?TX)* [facility] Comment on above: (SO)CBC(?TX)* Start: 09-01-2025 End: 09-01-2025 ambulatory [facility] Comment on above: CMP 2MO OV/EARLY LABS Start: 08-26-2025 Administration of blood product [facility] Start: 08-26-2025 [facility] Start: 08-25-2025 End: 08-25-2025 ambulatory 08/25/2025 11:00 AM EDT Results Only [facility] [address] [place] [address] [place] [address] (SO)CBC(?TX)* [facility] Comment on above: (SO)CBC(?TX)* Start: 08-12-2025 Administration of blood product [facility] Start: 08-12-2025 [facility] Start: 08-11-2025 End: 08-11-2025 ambulatory 08/11/2025 11:00 AM EDT Results Only [facility] [address] [place] [address] [place] [address] (SO)CBC(?TX)* [facility] Comment on above: (SO)CBC(?TX)* Start: 07-29-2025 Administration of blood product [facility] Start: 07-29-2025 [facility] Start: 07-28-2025 End: 07-28-2025 Patient encounter procedure 07/28/2025 11:20 AM EDT Office Visit [facility] [address] [facility] [place] [place] [address] Gladys Da Silva APRN.AERIAL ERECTOR [address] [facility] [place] [address] Physical Family [facility] [place] Comment on above: Physical Start: 07-28-2025 End: 07-28-2025 ambulatory 07/28/2025 10:00 AM EDT Results Only [facility] [address] [place] [address] [place] [address] (SO)CBC(?TX)* [facility] Comment on above: (SO)CBC(?TX)* Start: 07-20-2025 Anxiety Screening Anxiety Screening [facility] Start: 07-20-2025 Depression Screening Depression Screening [facility] Start: 07-15-2025 Administration of blood product [facility] Start: 07-15-2025 [facility] Start: 07-14-2025 End: 07-14-2025 ambulatory 07/14/2025 11:00 AM EDT [facility] [address] [place] [address] [place] [address] (SO)CBC(?TX)* [facility] Comment on above: (SO)CBC(?TX)* Start: 07-11-2025 Influenza vaccination [facility] Start: 07-01-2025 Administration of blood product [facility] Start: 07-01-2025 [facility] Start: 06-30-2025 End: 06-30-2025 ambulatory [facility] Comment on above: Q2WK (SO)CBC(S)(?TX)* 2MO OV* Start: 06-17-2025 Administration of blood product [facility] Start: 06-17-2025 [facility] Start: 06-16-2025 End: 06-16-2025 ambulatory 06/16/2025 11:00 AM EDT Results [facility] [address] [place] [address] [place] [address] Q2WK (SO)CBC(S)(?TX)* [facility] Comment on above: Q2WK (SO)CBC(S)(?TX)* Start: 06-03-2025 Administration of blood product [facility] Start: 06-03-2025 [facility] Start: 06-02-2025 End: 06-02-2025 ambulatory 06/02/2025 11:00 AM EDT Results Only [place] Ramirezwn [facility] [address] [place] [address] [place] [address] Q2WK (SO)CBC(S)(?TX)* [facility] Comment on above: Q2WK (SO)CBC(S)(?TX)* Start: 05-20-2025 Administration of blood product [facility] Start: 05-20-2025 [facility] Start: 05-19-2025 End: 05-19-2025 ambulatory 05/19/2025 11:00 AM EDT Results Only [place] Ramirezwn [facility] [address] [place] [address] [place] [address] Q2WK (SO)CBC(S)(?TX)* [facility] Comment on above: Q2WK (SO)CBC(S)(?TX)* Start: 05-09-2025 Influenza vaccination Influenza Vaccine (#1) Alberto quinn Comment on above: Postponed from 07/11/2024 (Declined at t his time) Start: 05-06-2025 Administration of blood product [facility] Start: 05-06-2025 [facility] Start: 05-05-2025 End: 05-05-2025 Patient encounter procedure 05/05/2025 11:30 AM EDT Appointment Radiology [address] [place] [place] [address] Dx: MDS (myelodysplastic syndrome), low grade (HCC) [D46.Z]; Iron overload [E83.19]; Splenomegaly [R16.1] Radiology Comment on above: Dx: MDS (myelodysplastic syndrome), low grade (HCC) [D46.Z]; Iron overload [E83.19]; Splenomegaly [R16.1] Start: 05-05-2025 End: 05-05-2025 ambulatory 05/05/2025 11:00 AM EDT Results Only [place] [facility] [address] [place] [address] [place] [address] Q2WK (SO)CBC(S)(?TX)* [facility] Comment on above: Q2WK (SO)CBC(S)(?TX)* Start: 04-22-2025 Administration of blood product [facility] Start: 04-22-2025 [facility] Start: 04-21-2025 End: 04-21-2025 ambulatory [facility] Comment on above: CBC/?TRANSF* 2MO OV* (SO)CBC(?TX)* Start: 04-08-2025 Administration of blood product [facility] Start: 04-08-2025 [facility] Start: 04-07-2025 End: 04-07-2025 [facility] Comment on above: CBC/?TRANSF* (SO)CBC(?TX)* Start: 04-05-2025 End: 04-05-2025 Patient encounter procedure 04/05/2025 9:30 AM EDT Office Visit Urology [address] [place] [address] Curtis Diaz PA-C [address] [id number] F/U BPH / MEDS Urology Comment on above: F/U BPH / MEDS Start: 03-25-2025 Administration of blood product [facility] Start: 03-25-2025 [facility] Start: 03-24-2025 End: 06-23-2025 Thyrotropin [Units/volume] in Serum or Plasma THYROID STIMULATING HORMONE Lab Routine Subclinical hypothyroidism Expected: 03/24/2025, Expires: 06/23/2025 [facility] Work Phone: Comment on above: Expected: 03/24/2025, Expires: Start: 03-24-2025 End: 03-24-2025 ambulatory [facility] Comment on above: CBC/?TRANSF* (SO)CBC(?TX)* Start: 03-11-2025 Administration of blood product [facility] Start: 03-11-2025 [facility] Start: 03-10-2025 End: 03-10-2025 ambulatory 03/10/2025 11:00 AM EDT Results Only [place] [facility] [address] [place] [address] [place] [address] CBC/?TRANSF* [facility] Comment on above: CBC/?TRANSF* Start: 02-25-2025 Administration of blood product [facility] Start: 02-25-2025 [facility] Start: 02-11-2025 Administration of blood product [facility] Start: 02-11-2025 [facility] Start: 02-10-2025 [facility] Start: 02-10-2025 End: 02-10-2025 ambulatory [facility] Comment on above: CBC(?TX)/CMP(S)/B12/MMA/Serum folate/Philip ritin/Myeloma labs(no urine)* LAB EARLY2 MO OV* CBC(?TX)/CMP(S)/B12/ MMA/Serum folate* Start: 01-28-2025 Administration of blood product [facility] Start: 01-28-2025 [facility] Start: 01-27-2025 End: 04-28-2025 Thyrotropin [Units/volume] in Serum or Plasma THYROID STIMULATING HORMONE Lab Routine Chronic fatigue Expected: 01/27/2025, Expires: 04/28/2025 [facility] Work Phone: Comment on above: Expected: 01/27/2025, Expires: Start: 01-27-2025 End: 01-27-2025 Patient encounter procedure 01/27/2025 11:40 AM EDT Office Visit Family [facility] [address] [facility] [place] [address] Gladys Da Silva APRN.AERIAL ERECTOR [address] [place] [address] 6 month follow up Family [facility] [place] Comment on above: 6 month follow up Start: 01-27-2025 End: 01-27-2025 ambulatory 01/27/2025 11:00 AM EDT Results [facility] [address] [place] [address] [place] [address] CBC(?TX)* [facility] Comment on above: CBC(?TX)* Start: 01-18-2025 End: 01-18-2025 Patient encounter procedure [facility] Comment on above: 6 month follow up Start: 01-14-2025 Administration of blood product [facility] Start: 01-14-2025 [facility] Start: 01-13-2025 End: 01-13-2025 ambulatory 01/13/2025 11:00 AM EST Results Only [place] [facility] [address] [place] [address] [place] [address] CBC(?TX)* [facility] Comment on above: CBC(?TX)* Start: 12-31-2024 Administration of blood product [facility] Start: 12-31-2024 [facility] Start: 12-30-2024 End: 12-30-2024 ambulatory 12/30/2024 11:00 AM EST Results Only [facility] [address] [place] [address] [place] [address] CBC(?TX)* [facility] Comment on above: CBC(?TX)* Start: 12-20-2024 DIABETES SCREEN DIABETES SCREEN [facility] Start: 12-17-2024 Administration of blood product [facility] Start: 12-17-2024 [facility] Start: 12-16-2024 End: 12-16-2024 ambulatory [facility] Comment on above: CBC/(?TX)/CMP/B12/MMA/Serum folate/Jac tin/Myeloma labs (no urine)* 2MO OV/CBC/(?TX)/CMP /B12/MMA/Serum folate/Ferritin/Myeloma labs (no urine) Start: 12-03-2024 Administration of blood product [facility] Start: 12-03-2024 [facility] Start: 12-02-2024 End: 12-02-2024 ambulatory [facility] Comment on above: (SO)CBC(?TX)/CMP(S)* QWK DACOGEN/LAB REBECCA Y/AUTH EXP ?* AM APPTS AFTER Start: 11-25-2024 End: 11-25-2024 [facility] Comment on above: (SO)CBC(?TX)/CMP(S)* QWK DACOGEN/LAB REBECCA Y/AUTH EXP ?* AM APPTS AFTER Start: 11-18-2024 End: 11-18-2024 [facility] Comment on above: (SO)CBC(?TX)/CMP(S)* QWK DACOGEN/LAB REBECCA Y/AUTH EXP ?* AM APPTS AFTER Start: 11-12-2024 End: 11-12-2024 [facility] Comment on above: (SO)CBC(?TX)/CMP(S)* QWK DACOGEN/LAB REBECCA Y/AUTH EXP ?* AM APPTS AFTER Start: 11-12-2024 Administration of blood product [facility] Start: 11-12-2024 [facility] Start: 11-10-2024 Advance Directive Discussion Advance Directive Discussion [facility] Start: 11-10-2024 Medicare Advantage Annual Wellness Visit Medicare Advantage Annual Wellness Visit [facility] Start: 11-04-2024 End: 11-04-2024 [facility] Comment on above: (SO)CBC(?TX)/CMP(S)* QWK DACOGEN/LAB REBECCA Y/AUTH EXP 11/09/24* AM APPTS AFTER Start: 10-27-2024 End: 10-27-2024 ambulatory 10/27/2024 11:30 AM EST Visit (SP) Office Hematology/Oncology [address], [place] [id number] Steven Akers DO [address], [place] [address] 3 MO OV / (SO)CBC(?TX)/CMP(S)* Hematology/Oncolog y Comment on above: 3 MO OV / (SO)CBC(?TX)/CMP(S)* Start: 10-27-2024 End: 10-27-2024 ambulatory [facility] Comment on above: (SO)CBC(?TX)/CMP(S)* QWK DACOGEN/LAB REBECCA Y/AUTH EXP 11/09/24* AM APPTS AFTER 930 Start: 10-22-2024 Administration of blood product [facility] Start: 10-22-2024 [facility] Start: 10-21-2024 End: 10-21-2024 ambulatory [facility] Comment on above: (SO)CBC(?TX)/CMP(S)* QWK DACOGEN/LAB REBECCA Y/AUTH EXP 11/09/24* AM APPTS AFTER 930 Start: 10-20-2024 End: 10-20-2024 ambulatory [facility] Comment on above: (SO)CBC(?TX)/CMP(S)* QWK DACOGEN/LAB REBECCA Y/AUTH EXP 11/09/24* AM APPTS AFTER 930 Start: 10-20-2024 End: 10-20-2024 ambulatory 10/20/2024 11:45 AM EST Results Only [facility] [address] [place] [address] (SO)CBC(?TX)/CMP(S) [facility] Comment on above: (SO)CBC(?TX)/CMP(S) Start: 10-13-2024 End: 10-13-2024 ambulatory [facility] Comment on above: (SO)CBC(?TX)/CMP(S)* 3 MO OV/LAB&CHEMO TO DAY* QWK DACOGEN/LAB&OV T LYNNETTE/AUTH EXP 11/09/24* AM APPTS AFTER 930 Start: 10-06-2024 End: 10-06-2024 ambulatory [facility] Comment on above: (SO)CBC(?TX)/CMP(S)* QWK DACOGEN/LAB REBECCA Y/AUTH EXP 11/09/24* 3MO OV DUE DEC -- AM APPTS AFTER 930 Start: 10-01-2024 Administration of blood product [facility] Start: 10-01-2024 [facility] Start: 09-30-2024 End: 09-30-2024 ambulatory [facility] Comment on above: (SO)CBC(?TX)/CMP(S)* QWK DACOGEN/LAB REBECCA Y/AUTH EXP 11/09/24* 3MO OV DUE DEC -- AM APPTS AFTER 930 Start: 09-30-2024 End: 09-30-2024 ambulatory 09/30/2024 9:30 AM EST Results Only [facility] [address] [place] [address] (SO)CBC(?TX)/CMP(S)* [facility] Comment on above: (SO)CBC(?TX)/CMP(S)* Start: 09-27-2024 End: 12-27-2024 Thyroxine (T4) free [Mass/volume] in Serum or Plasma T4 FREE/FREE THYROXINE Lab Routine Subclinical hypothyroidism Expected: 09/27/2024, Expires: 12/27/2024 [facility] Comment on above: Expected: 09/27/2024, Expires: Start: 09-27-2024 End: 12-27-2024 Triiodothyronine (T3) Free [Mass/volume] in Serum or Plasma T3, FREE Lab Routine Subclinical hypothyroidism Expected: 09/27/2024, Expires: 12/27/2024 [facility] Comment on above: Expected: 09/27/2024, Expires: Start: 09-26-2024 End: 12-26-2024 Thyrotropin [Units/volume] in Serum or Plasma THYROID STIMULATING HORMONE Lab Routine Subclinical hypothyroidism Expected: 09/26/2024, Expires: 12/26/2024 [facility] Work Phone: Comment on above: Expected: 09/26/2024, Expires: Start: 09-24-2024 Administration of blood product [facility] Start: 09-24-2024 [facility] Start: 09-23-2024 End: 09-23-2024 ambulatory [facility] Comment on above: (SO)CBC(?TX)/CMP(S)* QWK DACOGEN/LAB REBECCA Y/AUTH EXP 11/09/24* 3MO OV DUE DEC -- AM APPTS AFTER 930 Start: 09-16-2024 End: 09-16-2024 ambulatory [facility] Comment on above: (SO)CBC(?TX)/CMP(S)* QWK DACOGEN/LAB REBECCA Y/AUTH EXP 11/09/24* 3MO OV DUE DEC -- AM APPTS AFTER 930 Start: 09-09-2024 End: 09-09-2024 ambulatory [facility] Comment on above: (SO)CBC(?TX)/CMP(S)* QWK DACOGEN/LAB REBECCA Y/AUTH EXP 11/09/24* 3MO OV DUE DEC -- AM APPTS AFTER 0 NEEDS PAIN CONTRACT SIGNED SEE PHONE NOTE 09/02 QWK DACOGEN/LAB EARLY/AUTH EXP 11/09/24* 3MO OV DUE DEC -- AM APPTS AFTER 930 Start: 09-08-2024 End: 09-08-2024 ambulatory [facility] Comment on above: (SO)CBC(?TX)/CMP(S)* QWK DACOGEN/LAB REBECCA Y/AUTH EXP 11/09/24* 3MO OV DUE DEC AM APPTS AFTER 0 Start: 09-02-2024 End: 09-02-2024 ambulatory [facility] Comment on above: (SO)CBC(?TX)/CMP(S)* QWK DACOGEN/LAB REBECCA Y/AUTH EXP 11/09/24* 3MO OV DUE DEC -- THURS AM APPTS AFTER 930 Start: 09-01-2024 End: 09-01-2024 ambulatory [facility] Comment on above: (SO)CBC(?TX)/CMP(S)* QWK DACOGEN/LAB REBECCA Y/AUTH EXP 11/09/24* 3MO OV DUE DEC AM APPTS AFTER 930 Start: 08-26-2024 End: 08-26-2024 ambulatory 08/26/2024 11:30 AM EDT Infusion Center Hematology/Oncology [address] [place] [address] QWK DACOGEN/LAB EARLY/AUTH EXP 11/09/24* 3MO OV DUE DEC -- THURS AM APPTS AFTER 930 Hematology/Oncolog y Comment on above: QWK DACOGEN/LAB EARLY/AUTH EXP 11/09/24* 3MO OV DUE DEC -- THURS AM APPTS AFTER 930 Start: 08-26-2024 End: 08-26-2024 ambulatory [facility] Comment on above: (SO)CBC(?TX)/CMP(S)* QWK DACOGEN/LAB REBECCA Y/AUTH EXP 11/09/24* 3MO OV DUE DEC -- THURS AM APPTS AFTER 930 Start: 08-25-2024 End: 08-25-2024 [facility] Comment on above: (SO)CBC(?TX)/CMP(S)* QWK DACOGEN/LAB REBECCA Y/AUTH EXP 11/09/24* 3MO OV DUE DEC AM APPTS AFTER 930 Start: 08-19-2024 End: 08-19-2024 ambulatory [facility] Comment on above: (SO)CBC(?TX)/CMP(S)* QWK DACOGEN/LAB REBECCA Y/AUTH EXP 11/09/24* 3MO OV DUE DEC -- THURS AM APPTS AFTER 930 Start: 08-18-2024 End: 08-18-2024 ambulatory [facility] Comment on above: (SO)CBC(?TX)/CMP(S)* QWK DACOGEN/LAB REBECCA Y/AUTH EXP 11/09/24* 3MO OV DUE DEC AM APPTS AFTER 930 Start: 08-12-2024 End: 08-12-2024 ambulatory 08/12/2024 10:30 AM EDT Infusion Center Hematology/Oncology [address] [place] [address] QWK DACOGEN/LAB EARLY/AUTH EXP 11/09/24* 3MO OV DUE DEC -- THURS AM APPTS AFTER 930 Hematology/Oncolog y Comment on above: QWK DACOGEN/LAB EARLY/AUTH EXP 11/09/24* 3MO OV DUE DEC -- THURS AM APPTS AFTER 930 Start: 08-12-2024 End: 08-12-2024 ambulatory [facility] Comment on above: (SO)CBC(?TX)/CMP(S)* QWK DACOGEN/LAB REBECCA Y/AUTH EXP 11/09/24* 3MO OV DUE DEC -- THURS AM APPTS AFTER 930 Start: 08-11-2024 End: 08-11-2024 ambulatory [facility] Comment on above: (SO)CBC(?TX)/CMP(S)* QWK DACOGEN/LAB REBECCA Y/AUTH EXP 11/09/24* 3MO OV DUE DEC AM APPTS AFTER 930 Start: 08-05-2024 End: 08-05-2024 ambulatory [facility] Comment on above: (SO)CBC(?TX)/CMP(S)* QWK DACOGEN/LAB REBECCA Y/AUTH EXP 11/09/24* 3MO OV DUE DEC -- THURS AM APPTS AFTER 930 Start: 08-04-2024 End: 08-04-2024 ambulatory [facility] Comment on above: (SO)CBC(?TX)/CMP(S)* QWK DACOGEN/LAB REBECCA Y/AUTH EXP 11/09/24* 3MO OV DUE DEC AM APPTS AFTER 930 Start: 07-28-2024 End: 10-27-2024 Methylmalonate [Moles/volume] in Serum or Plasma [facility] Work Phone: Comment on above: Expected: 07/28/2024, Expires: Start: 07-28-2024 End: 07-28-2024 ambulatory [facility] Comment on above: (SO)CBC(?TX)/CMP(S)* 3 MO OV/LAB&TREATMEN T TODAY* QWK DACOGEN/LAB&OV T LYNNETTE/AUTH EXP 11/09/24* 3MO OV DUE DEC AM APPTS AFTER 930 Start: 07-22-2024 End: 07-22-2024 ambulatory [facility] Comment on above: (SO)CBC(?TX)/CMP(S)* (SO)CBC(?TX)/CMP(S)/ QWK DACOGEN/AUTH EXP 11/09/24* 3MO OV DUE SEPT AM APPTS AFTER 930 Start: 07-20-2024 End: 10-19-2024 Cobalamin (Vitamin B12) [Mass/volume] in Serum or Plasma VITAMIN B12 Lab Routine Polyneuropathy in other diseases classified elsewhere (HCC) MDS (myelodysplastic syndrome), low grade (HCC) Expected: 07/20/2024, Expires: 10/19/2024 [facility] Comment on above: Expected: 07/20/2024, Expires: Start: 07-20-2024 End: 10-19-2024 Hemoglobin A1c in Blood HEMOGLOBIN A1C Lab Routine Polyneuropathy in other diseases classified elsewhere (HCC) MDS (myelodysplastic syndrome), low grade (HCC) Chronic fatigue Expected: 07/20/2024, Expires: 10/19/2024 [facility] Work Phone: Comment on above: Expected: 07/20/2024, Expires: 4 Start: 07-20-2024 End: 10-19-2024 Magnesium [Mass/volume] in Serum or Plasma MAGNESIUM Lab Routine Polyneuropathy in other diseases classified elsewhere (HCC) MDS (myelodysplastic syndrome), low grade (HCC) Expected: 07/20/2024, Expires: 10/19/2024 [facility] Comment on above: Expected: 07/20/2024, Expires: 4 Start: 07-20-2024 End: 10-19-2024 Thyrotropin [Units/volume] in Serum or Plasma THYROID STIMULATING HORMONE Lab Routine MDS (myelodysplastic syndrome), low grade (HCC) Chronic fatigue Expected: 07/20/2024, Expires: 10/19/2024 [facility] Comment on above: Expected: 07/20/2024, Expires: 4 Start: 07-20-2024 End: 07-20-2024 Patient encounter procedure [facility] [place] Comment on above: 6 month follow up Start: 07-15-2024 End: 07-15-2024 ambulatory [facility] Comment on above: (SO)CBC(?TX)/CMP(S)* (SO)CBC(?TX)/CMP(S)/ QWK DACOGEN/AUTH EXP 11/09/24* 3MO OV DUE SEPT (SO)CBC(?TX)/CMP(S)/ QWK DACOGEN/AUTH EXP 11/09/24* 3MO OV DUE SEPT AM APPTS AFTER 930 Start: 07-11-2024 Influenza vaccination [facility] Start: 07-08-2024 End: 07-08-2024 ambulatory [facility] Comment on above: (SO)CBC(?TX)/CMP(S)* (SO)CBC(?TX)/CMP(S)/ QWK DACOGEN/AUTH EXP 11/09/24* 3MO OV DUE SEPT (SO)CBC(?TX)/CMP(S)/ QWK DACOGEN/AUTH EXP 11/09/24* 3MO OV DUE SEPT AM APPTS AFTER 930 Start: 07-01-2024 End: 07-01-2024 ambulatory [facility] Comment on above: (SO)CBC(?TX)/CMP(S)* (SO)CBC(?TX)/CMP(S)/ QWK DACOGEN/AUTH EXP 11/09/24* 3MO OV DUE SEPT PM APPT OK FOR THIS DAY Start: 06-24-2024 End: 06-24-2024 ambulatory Hematology/Oncolog y Comment on above: (SO)CBC(?TX)/CMP(S)/QWK DACOGEN/AUTH EXP 11/09/24* 3MO OV DUE SEPT Start: 06-24-2024 End: 06-24-2024 Patient encounter procedure 06/24/2024 11:30 AM EDT Appointment Radiology [address] [place], [place] [id number] Splenomegaly [R16.1] Radiology Comment on above: Splenomegaly [R16.1] Start: 06-24-2024 End: 06-24-2024 [facility] Comment on above: (SO)CBC(?TX)* (SO)CBC(?TX)/QWK DAC OGEN/AUTH EXP 11/09/24* 3MO OV DUE SEPT (SO)CBC(?TX)/CMP* (SO)CBC(?TX)/CMP(S)* (SO)CBC(?TX)/CMP(S)/ QWK DACOGEN/AUTH EXP 11/09/24* 3MO OV DUE SEPT AM APPTS AFTER 930 Start: 06-24-2024 End: 06-24-2024 ambulatory 06/24/2024 9:30 AM EDT Results [facility] [place] [facility] [address] [place] [address] (SO)CBC(?TX)/CMP(S)* [place] [facility] Comment on above: (SO)CBC(?TX)/CMP(S)* Start: 06-17-2024 End: 06-17-2024 ambulatory [place] [facility] Comment on above: (SO)CBC(?TX)* (SO)CBC(?TX)/QWK DAC OGEN/AUTH EXP 11/09/24* 3MO OV DUE SEPT (SO)CBC(?TX)/CMP* (SO)CBC(?TX)/CMP(S)/ QWK DACOGEN/AUTH EXP 11/09/24* 3MO OV DUE SEPT (SO)CBC(?TX)/CMP(S)* (SO)CBC(?TX)/CMP(S)/ QWK DACOGEN/AUTH EXP 11/09/24* 3MO OV DUE SEPT AM APPTS AFTER 930 Start: 06-10-2024 End: 06-10-2024 ambulatory [place] [facility] Comment on above: (SO)CBC(?TX)* (SO)CBC(?TX)/QWK DAC OGEN/AUTH EXP 11/09/24* 3MO OV DUE SEPT (SO)CBC(?TX)/CMP* (SO)CBC(?TX)/CMP(S)* (SO)CBC(?TX)/CMP(S)/ QWK DACOGEN/AUTH EXP 11/09/24* 3MO OV DUE SEPT Start: 06-10-2024 End: 06-10-2024 [facility] Comment on above: (SO)CBC(?TX)* (SO)CBC(?TX)/QWK DAC OGEN/AUTH EXP 11/09/24* 3MO OV DUE JUL Start: 06-09-2024 End: 06-09-2024 ambulatory 06/09/2024 10:30 AM EDT [facility] Hematology/Oncology [address] [place] [address] (SO)CBC(?TX)/CMP(S)/QWK DACOGEN/AUTH EXP 11/09/24* 3MO OV DUE SEPT AM APPTS AFTER 930 Hematology/Oncolog y Comment on above: (SO)CBC(?TX)/CMP(S)/QWK DACOGEN/AUTH EXP 11/09/24* 3MO OV DUE SEPT AM APPTS AFTER 930 Start: 06-09-2024 End: 06-09-2024 ambulatory [place] [facility] Comment on above: (SO)CBC(?TX)/CMP(S)* (SO)CBC(?TX)/CMP(S)/ QWK DACOGEN/AUTH EXP 11/09/24* 3MO OV DUE JUL Start: 06-03-2024 End: 06-03-2024 ambulatory 06/03/2024 2:30 PM EDT Results Only [place] [facility] [address] [place] [address] (SO)CBC(?TX)/CMP(S)* [place] [facility] Comment on above: (SO)CBC(?TX)/CMP(S)* Start: 06-03-2024 End: 06-03-2024 ambulatory [place] [facility] Comment on above: (SO)CBC(?TX)* (SO)CBC(?TX)/QWK DAC OGEN/AUTH EXP 11/09/24* 3MO OV DUE SEPT (SO)CBC(?TX)/CMP* (SO)CBC(?TX)/CMP(S)* (SO)CBC(?TX)/CMP(S)/ QWK DACOGEN/AUTH EXP 11/09/24* 3MO OV DUE JUL Start: 06-03-2024 End: 06-03-2024 [facility] Comment on above: (SO)CBC(?TX)* (SO)CBC(?TX)/QWK DAC OGEN/AUTH EXP 11/09/24* 3MO OV DUE SEPT (SO)CBC(?TX)/CMP(S)/ QWK DACOGEN/AUTH EXP 11/09/24* 3MO OV DUE JUL Start: 05-27-2024 End: 05-27-2024 [facility] Comment on above: (SO)CBC(?TX)* (SO)CBC(?TX)/QWK DAC OGEN/AUTH EXP 11/09/24* 3MO OV DUE SEPT (SO)CBC(?TX)/CMP* (SO)CBC(?TX)/CMP(S)* (SO)CBC(?TX)/CMP(S)/ QWK DACOGEN/AUTH EXP 11/09/24* 3MO OV DUE JUL Start: 05-27-2024 End: 05-27-2024 [facility] Comment on above: (SO)CBC(?TX)* (SO)CBC(?TX)/QWK DAC OGEN/AUTH EXP 11/09/24* 3MO OV DUE JUL Start: 05-20-2024 End: 05-20-2024 [facility] Comment on above: (SO)CBC(?TX)* (SO)CBC(?TX)/QWK DAC OGEN/AUTH EXP 11/09/24* 3MO OV DUE SEPT (SO)CBC(?TX)/CMP* (SO)CBC(?TX)/CMP(S)* (SO)CBC(?TX)/CMP(S)/ QWK DACOGEN/AUTH EXP 11/09/24* 3MO OV DUE JUL Start: 05-20-2024 End: 05-20-2024 [facility] Comment on above: (SO)CBC(?TX)* (SO)CBC(?TX)/QWK DAC OGEN/AUTH EXP 11/09/24* 3MO OV DUE JUL Start: 05-12-2024 End: 05-12-2024 [facility] Comment on above: (SO)CBC(?TX)* (SO)CBC(?TX)/QWK DAC OGEN/AUTH EXP 11/09/24* (SO)CBC(?TX)?CMP* (SO)CBC(?TX)/CMP(S)* (SO)CBC(?TX)/CMP(S)/ QWK DACOGEN/AUTH EXP 11/09/24* Start: 05-09-2024 Influenza vaccination Influenza Vaccine (#1) [facility] Comment on above: Postponed from 07/11/2023 (Declined at t his time) Start: 05-06-2024 End: 05-06-2024 ambulatory [facility] Comment on above: (SO)CBC(?TX)* (SO)CBC(?TX)/QWK DAC OGEN/AUTH EXP 11/09/24* Start: 04-29-2024 End: 04-29-2024 ambulatory [facility] Comment on above: (SO)CBC(?TX)* (SO)CBC(?TX)/QWK DAC OGEN/AUTH EXP 11/09/24* Start: 04-21-2024 End: 04-21-2024 ambulatory [facility] Comment on above: CBC ?TX/CMP/VIT B12/FOLATE/IRON STUDIES/ MM labs 3 MO OV/LAB EARLY/TR EATMENT TODAY* QWK DACOGEN/LAB&OV E HAILY/AUTH EXP 11/09/24* Start: 04-15-2024 End: 04-15-2024 ambulatory [facility] Comment on above: (SO)CBC(?TX)* (SO)CBC(?TX)/QWK DAC OGEN/AUTH EXP 11/09/24*CMP/VIT B12/FOLATE/IRON STUDIES/MM labs/OV due 04/22/24 - [facility] Start: 04-08-2024 End: 04-08-2024 ambulatory [facility] Comment on above: (SO)CBC(?TX)* (SO)CBC(?TX)/QWK DAC OGEN/AUTH EXP 11/09/24*CMP/VIT B12/FOLATE/IRON STUDIES/MM labs/OV due 04/22/24 - [facility] Start: 04-03-2024 COVID-19 VACCINE (#1) COVID-19 VACCINE (#1) [facility] Comment on above: Postponed from 1944 (Declined at t his time) Postponed from 05/18 (Declined at this time) Start: 04-03-2024 SHINGRIX VACCINE (1 of 2) SHINGRIX VACCINE (1 of 2) [facility] Comment on above: Postponed from 09/01/2013 (Declined at t his time) Start: 04-03-2024 Urine microalbumin profile [facility] Comment on above: Postponed from 1963 (Insurance Cov erage) Start: 04-01-2024 End: 04-01-2024 ambulatory [facility] Comment on above: (SO)CBC(?TX)* (SO)CBC(?TX)/QWK DAC OGEN/AUTH EXP 11/09/24*CMP/VIT B12/FOLATE/IRON STUDIES/MM labs/OV due 04/22/24 - [facility] Start: 03-25-2024 End: 03-25-2024 ambulatory [facility] Comment on above: (SO)CBC(?TX)* (SO)CBC(?TX)/QWK DAC OGEN/AUTH EXP 11/09/24*CMP/VIT B12/FOLATE/IRON STUDIES/MM labs/OV due 04/22/24 - [facility] Start: 03-22-2024 Administration of blood product [facility] Start: 03-22-2024 [facility] Start: 03-19-2024 End: 03-19-2024 ambulatory [facility] Comment on above: (SO)CBC(?TX)* (SO)CBC(?TX)/QWK DAC OGEN/AUTH EXP 11/09/24*CMP/VIT B12/FOLATE/IRON STUDIES/MM labs/OV due 04/22/24 - [facility] Start: 03-18-2024 End: 03-18-2024 [facility] Comment on above: (SO)CBC(?TX)* (SO)CBC(?TX)/QWK DAC OGEN/AUTH EXP 11/09/24*CMP/VIT B12/FOLATE/IRON STUDIES/MM labs/OV due 04/22/24 - [facility] Start: 03-16-2024 End: 03-16-2024 Patient encounter procedure Urology Comment on above: 1 year f/u 1 year f/u BPH Start: 03-11-2024 End: 03-11-2024 ambulatory [facility] Comment on above: (SO)CBC(?TX)* (SO)CBC(?TX)/QWK DAC OGEN/AUTH EXP 11/09/24* CMP/VIT B12/FOLATE/IRON STUDIES/MM labs/OV due 04/22/24 - [facility] Start: 03-05-2024 Administration of blood product [facility] Start: 03-05-2024 [facility] Start: 02-20-2024 Administration of blood product [facility] Start: 02-20-2024 [facility] Start: 01-30-2024 Administration of blood product [facility] Start: 01-30-2024 [facility] Start: 01-29-2024 End: 04-29-2024 [id number] [Mass/volume] in Serum or Plasma B2 MICROGLOBULIN B Lab Routine MDS (myelodysplastic syndrome), low grade (HCC) 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 (HCC) Iron overload, transfusional Idiopathic aplastic anemia (HCC) Expected: 01/29/2024, Expires: 04/29/2024 [facility] Work Phone: Comment on above: Expected: 01/29/2024, Expires: 4 Start: 01-29-2024 End: 04-29-2024 CBC W Auto Differential panel - Blood CBC + DIFF Lab STAT MDS (myelodysplastic syndrome), low grade (HCC) 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 (HCC) Iron overload, transfusional Idiopathic aplastic anemia (HCC) Expected: 01/29/2024, Expires: 04/29/2024 [facility] Work Phone: Comment on above: Expected: 01/29/2024, Expires: 4 Start: 01-29-2024 End: 04-29-2024 Comprehensive metabolic 2000 panel - Serum or Plasma COMP METABOLIC PANEL Lab STAT MDS (myelodysplastic syndrome), low grade (HCC) 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 (HCC) Iron overload, transfusional Idiopathic aplastic anemia (HCC) Expected: 01/29/2024, Expires: 04/29/2024 [facility] Work Phone: Comment on above: Expected: 01/29/2024, Expires: Start: 01-29-2024 End: 04-29-2024 Ferritin [Mass/volume] in Serum or Plasma FERRITIN BLD Lab Routine MDS (myelodysplastic syndrome), low grade (HCC) 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 (HCC) Iron overload, transfusional Idiopathic aplastic anemia (HCC) Expected: 01/29/2024, Expires: 04/29/2024 [facility] Work Phone: Comment on above: Expected: 01/29/2024, Expires: Start: 01-29-2024 End: 04-29-2024 IMMUNOGLOBULINS RTINO IMMUNOGLOBULINS TRINO Lab Routine MDS (myelodysplastic syndrome), low grade (HCC) 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 (HCC) Iron overload, transfusional Idiopathic aplastic anemia (HCC) Expected: 01/29/2024, Expires: 04/29/2024 [facility] Work Phone: Comment on above: Expected: 01/29/2024, Expires: 4 Start: 01-29-2024 End: 04-29-2024 Iron and Iron binding capacity panel - Serum or Plasma IRON + TIBC Lab Routine MDS (myelodysplastic syndrome), low grade (HCC) 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 (HCC) Iron overload, transfusional Idiopathic aplastic anemia (HCC) Expected: 01/29/2024, Expires: 04/29/2024 [facility] Work Phone: Comment on above: Expected: 01/29/2024, Expires: 4 Start: 01-29-2024 End: 04-29-2024 KAPPA/GREGORY,FREE,SER KAPPA/GREGORY,FREE,SER Lab Routine MDS (myelodysplastic syndrome), low grade (HCC) 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 (HCC) Iron overload, transfusional Idiopathic aplastic anemia (HCC) Expected: 01/29/2024, Expires: 04/29/2024 [facility] Work Phone: Comment on above: Expected: 01/29/2024, Expires: Start: 01-29-2024 End: 04-29-2024 Lactate dehydrogenase [Enzymatic activity/volume] in Serum or Plasma LD LACTATE DEHYDRO Lab Routine MDS (myelodysplastic syndrome), low grade (HCC) 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 (HCC) Iron overload, transfusional Idiopathic aplastic anemia (HCC) Expected: 01/29/2024, Expires: 04/29/2024 [facility] Work Phone: Comment on above: Expected: 01/29/2024, Expires: Start: 01-29-2024 End: 04-29-2024 MONOCLONAL PROT UR W/INTERP MONOCLONAL PROT UR W/INTERP Lab Routine MDS (myelodysplastic syndrome), low grade (HCC) 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 (HCC) Iron overload, transfusional Idiopathic aplastic anemia (HCC) Expected: 01/29/2024, Expires: 04/29/2024 [facility] Work Phone: Comment on above: Expected: 01/29/2024, Expires: Start: 01-29-2024 End: 04-29-2024 MONOCLONAL PROTEIN, SERUM (BLOOD) MONOCLONAL PROTEIN, SERUM (BLOOD) Lab Routine MDS (myelodysplastic syndrome), low grade (HCC) 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 (HCC) Iron overload, transfusional Idiopathic aplastic anemia (HCC) Expected: 01/29/2024, Expires: 04/29/2024 [facility] Work Phone: Comment on above: Expected: 01/29/2024, Expires: Start: 01-29-2024 End: 04-29-2024 PROTEIN ELECT RND UR W/INTERP PROTEIN ELECT RND UR W/INTERP Lab Routine MDS (myelodysplastic syndrome), low grade (HCC) 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 (HCC) Iron overload, transfusional Idiopathic aplastic anemia (HCC) Expected: 01/29/2024, Expires: 04/29/2024 [facility] Work Phone: Comment on above: Expected: 01/29/2024, Expires: Start: 01-29-2024 End: 04-29-2024 PROTEIN ELECTROPHORESIS SERUM W/INTERP PROTEIN ELECTROPHORESIS SERUM W/INTERP Lab Routine MDS (myelodysplastic syndrome), low grade (HCC) 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 (HCC) Iron overload, transfusional Idiopathic aplastic anemia (HCC) Expected: 01/29/2024, Expires: 04/29/2024 [facility] Work Phone: Comment on above: Expected: 01/29/2024, Expires: Start: 01-02-2024 Administration of blood product [facility] Start: 01-02-2024 [facility] Start: 12-12-2023 Administration of blood product [facility] Start: 12-12-2023 [facility] Start: 11-28-2023 Administration of blood product [facility] Start: 11-28-2023 [facility] Start: 11-14-2023 Administration of blood product [facility] Start: 11-14-2023 [facility] Start: 11-10-2023 Advance Directive Discussion Advance Directive Discussion [facility] Start: 11-10-2023 Behavioral Health Screening Behavioral Health Screening [facility] Start: 11-10-2023 Depression Assessment Depression Assessment [facility] Start: 10-17-2023 Administration of blood product [facility] Start: 10-17-2023 [facility] Start: 09-19-2023 Administration of blood product [facility] Start: 09-19-2023 [facility] Start: 08-22-2023 Administration of blood product [facility] Start: 08-22-2023 [facility] Start: 08-08-2023 Administration of blood product [facility] Start: 08-08-2023 [facility] Start: 07-11-2023 Influenza vaccination [facility] Start: 07-04-2023 Administration of blood product [facility] Start: 07-04-2023 [facility] Start: 06-20-2023 Administration of blood product [facility] Start: 06-20-2023 [facility] Start: 06-19-2023 Administration of blood product [facility] Start: 06-06-2023 Administration of blood product [facility] Start: 06-06-2023 [facility] Start: 06-05-2023 Leukocyte reduced red blood cells [facility] Start: 06-05-2023 [facility] Start: 05-02-2023 Administration of blood product [facility] Start: 05-02-2023 [facility] Start: 04-04-2023 Administration of blood product [facility] Start: 04-04-2023 [facility] Start: 03-21-2023 Administration of blood product [facility] Start: 03-21-2023 [facility] Start: 03-07-2023 Administration of blood product [facility] Start: 03-07-2023 [facility] Start: 03-06-2023 Procedure [facility] Start: 02-06-2023 End: 04-08-2023 Comprehensive metabolic 2000 panel - Serum or Plasma COMP METABOLIC PANEL Lab STAT MDS (myelodysplastic syndrome), low grade (HCC) 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 (HCC) 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 Iron overload, transfusional Expected: 02/06/2023, Expires: 04/08/2023 [facility] Work Phone: Comment on above: Expected: 02/06/2023, Expires: Start: 01-27-2023 Administration of blood product [facility] Start: 01-27-2023 [facility] Start: 01-09-2023 Administration of blood product [facility] Start: 01-09-2023 [facility] Start: 01-08-2023 End: 03-10-2023 CBC W Auto Differential panel - Blood CBC + DIFF Lab STAT MDS (myelodysplastic syndrome), low grade (HCC) Macrocytic anemia 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 (HCC) Expected: 01/08/2023, Expires: 03/10/2023 [facility] Work Phone: Comment on above: Expected: 01/08/2023, Expires: 3 Start: 12-19-2022 Administration of blood product [facility] Start: 12-19-2022 [facility] Start: 12-18-2022 End: 02-17-2023 CBC W Auto Differential panel - Blood CBC + DIFF Lab STAT MDS (myelodysplastic syndrome), low grade (HCC) 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 (HCC) Splenomegaly Expected: 12/18/2022, Expires: 02/17/2023 [facility] Work Phone: Comment on above: Expected: 12/18/2022, Expires: 3 Start: 11-26-2022 End: 01-26-2023 [id number] [Mass/volume] in Serum or Plasma [facility] Work Phone: Comment on above: Expected: 11/26/2022, Expires: 3 Start: 11-26-2022 End: 01-26-2023 CBC W Auto Differential panel - Blood CBC + DIFF Lab STAT MDS (myelodysplastic syndrome), low grade (HCC) 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 (HCC) Expected: 11/26/2022, Expires: 01/26/2023 [facility] Work Phone: Comment on above: Expected: 11/26/2022, Expires: 3 Start: 11-26-2022 End: 01-26-2023 Chronic hepatitis differentiation between hepatitis B and C virus panel - Serum or Plasma [facility] Work Phone: Comment on above: Expected: 11/26/2022, Expires: 3 Start: 11-26-2022 End: 01-26-2023 COLD AGGLUTIININS [facility] Work Phone: Comment on above: Expected: 11/26/2022, Expires: 3 Start: 11-26-2022 End: 01-26-2023 Comprehensive metabolic 2000 panel - Serum or Plasma COMP METABOLIC PANEL Lab STAT MDS (myelodysplastic syndrome), low grade (HCC) 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 (HCC) Expected: 11/26/2022, Expires: 01/26/2023 [facility] Work Phone: Comment on above: Expected: 11/26/2022, Expires: 3 Start: 11-26-2022 End: 01-26-2023 CRYOGLOBULIN, QUAL, REFLEX TO MARICEL AND IGG,A,M CRYOGLOBULIN, QUAL, REFLEX TO MARICEL AND IGG,A,M Lab Routine MDS (myelodysplastic syndrome), low grade (HCC) 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 (HCC) Waldenstrom macroglobulinemia (HCC) Splenomegaly Expected: 11/26/2022, Expires: 01/26/2023 [facility] Work Phone: Comment on above: Expected: 11/26/2022, Expires: 3 Start: 11-26-2022 End: 01-26-2023 Ferritin [Mass/volume] in Serum or Plasma FERRITIN BLD Lab Routine MDS (myelodysplastic syndrome), low grade (HCC) 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 (HCC) Expected: 11/26/2022, Expires: 01/26/2023 [facility] Work Phone: Comment on above: Expected: 11/26/2022, Expires: 3 Start: 11-26-2022 End: 01-26-2023 Iron and Iron binding capacity panel - Serum or Plasma IRON + TIBC Lab Routine MDS (myelodysplastic syndrome), low grade (HCC) 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 (HCC) Expected: 11/26/2022, Expires: 01/26/2023 [facility] Work Phone: Comment on above: Expected: 11/26/2022, Expires: 3 Start: 11-26-2022 End: 01-26-2023 Lactate dehydrogenase [Enzymatic activity/volume] in Serum or Plasma LD LACTATE DEHYDRO Lab Routine MDS (myelodysplastic syndrome), low grade (HCC) 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 (HCC) Expected: 11/26/2022, Expires: 01/26/2023 [facility] Work Phone: Comment on above: Expected: 11/26/2022, Expires: 3 Start: 11-26-2022 End: 01-26-2023 [facility] Work Phone: Comment on above: Expected: 11/26/2022, Expires: 3 Start: 11-26-2022 End: 01-26-2023 MONOCLONAL PROTEIN, SERUM (BLOOD) [facility] Work Phone: Comment on above: Expected: 11/26/2022, Expires: 3 Start: 11-26-2022 End: 01-26-2023 [facility] Work Phone: Comment on above: Expected: 11/26/2022, Expires: 3 Start: 11-26-2022 End: 01-26-2023 PROTEIN ELECTROPHORESIS SERUM [facility] Work Phone: Comment on above: Expected: 11/26/2022, Expires: 3 Start: 11-26-2022 End: 01-26-2023 RETIC COUNT RETIC COUNT Lab Routine MDS (myelodysplastic syndrome), low grade (HCC) 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 (HCC) Expected: 11/26/2022, Expires: 01/26/2023 [facility] Work Phone: Comment on above: Expected: 11/26/2022, Expires: 3 Start: 11-26-2022 End: 01-26-2023 SERUM VISCOSITY [facility] Work Phone: Comment on above: Expected: 11/26/2022, Expires: 3 Start: 11-13-2022 Administration of blood product [facility] Start: 11-13-2022 [facility] Start: 11-10-2022 ADVANCE DIRECTIVE DISCUSSION ADVANCE DIRECTIVE DISCUSSION [facility] Start: 11-10-2022 DEPRESSION ASSESSMENT DEPRESSION ASSESSMENT [facility] Start: 07-11-2022 Influenza vaccination INFLUENZA (#1) [facility] Start: 07-05-2022 COVID-19 VACCINE (#1) COVID-19 VACCINE (#1) [facility] Comment on above: Postponed from 1949 (Declined at t his time) Postponed from 11/18 (Declined at this time) Start: 07-05-2022 COVID-19 VACCINE (1) COVID-19 VACCINE (1) [facility] Comment on above: Postponed from 1956 (Declined at t his time) Start: 06-13-2022 Adult depression screening assessment DEPRESSION SCREENING [facility] Start: 05-14-2022 Referral to service [facility] Work Phone: Start: 05-14-2022 Patient discharge [facility] Work Phone: Start: 05-12-2022 Referral to service [facility] Work Phone: Start: 05-12-2022 Administration of blood product [facility] Work Phone: Start: 05-10-2022 Administration of blood product [facility] Work Phone: Start: 05-09-2022 Following clinical pathway protocol [facility] Work Phone: Start: 05-09-2022 Transfusion of blood product [facility] Work Phone: Start: 05-09-2022 Assessment of risk of venous thromboembolism [facility] Work Phone: Start: 05-09-2022 Consultation [facility] Work Phone: Start: 05-09-2022 Documentation procedure [facility] Work Phone: Start: 05-09-2022 Incentive spirometry [facility] Work Phone: Start: 05-09-2022 Insertion of catheter into peripheral vein [facility] Work Phone: Start: 05-09-2022 Introduction of urinary catheter [facility] Work Phone: Start: 05-09-2022 Measuring intake and output [facility] Work Phone: Start: 05-09-2022 Providing care according to standard [facility] Work Phone: Start: 05-09-2022 Provision of activity privileges [facility] Work Phone: Start: 05-09-2022 [facility] Work Phone: Start: 05-09-2022 Verification routine [facility] Work Phone: Start: 05-09-2022 Admission procedure [facility] Work Phone: Start: 05-09-2022 End: 05-09-2022 Blood culture [facility] Work Phone: Start: 05-09-2022 Leukocyte reduced platelets collected by apheresis [facility] Work Phone: Start: 05-09-2022 End: 05-09-2022 Administration of blood product [facility] Work Phone: Start: 05-09-2022 End: 05-09-2022 [facility] Work Phone: Start: 05-09-2022 Influenza vaccination INFLUENZA (#1) [facility] Comment on above: Postponed from 07/11/2021 (Declined at t his time) Start: 05-01-2022 End: 05-01-2022 Administration of blood product [facility] Start: 05-01-2022 End: 05-01-2022 [facility] Start: 04-18-2022 Administration of blood product [facility] Start: 04-18-2022 [facility] Start: 03-21-2022 Patient referral [facility] Work Phone: Start: 03-18-2022 Administration of blood product [facility] Start: 03-18-2022 [facility] Start: 02-15-2022 Administration of blood product [facility] Start: 02-15-2022 [facility] Start: 01-18-2022 Administration of blood product [facility] Start: 01-18-2022 [facility] Start: 11-10-2021 ADVANCE DIRECTIVE DISCUSSION ADVANCE DIRECTIVE DISCUSSION [facility] Start: 11-10-2021 DEPRESSION ASSESSMENT DEPRESSION ASSESSMENT [facility] Start: 2019 RSV Vaccine (1 - 1-dose 75+ series) RSV Vaccine (1 - 1-dose 75+ series) [facility] Start: 09-01-2013 SHINGRIX VACCINE (1 of 2) SHINGRIX VACCINE (1 of 2) [facility] Start: 09-01-2013 SHINGRIX VACCINE (2 of 3) SHINGRIX VACCINE (2 of 3) [facility] Start: 2004 RSV Vaccine (1 - 1-dose 60+ series) RSV Vaccine (1 - 1-dose 60+ series) [facility] Start: 1963 Urine microalbumin profile [facility] Start: 1962 Anxiety Screening Anxiety Screening [facility] Start: 1962 Depression Screening Depression Screening [facility] Start: 1949 Covid-19 Vaccine (#1) Covid-19 Vaccine (#1) [facility] Start: 1944 COVID-19 VACCINE (#1) COVID-19 VACCINE (#1) [facility] Bacteria identified in Blood by Culture Blood Culture [facility] Work Phone: Bacteria identified in Urine by Culture Urine Culture [facility] Work Phone: Blood culture [facility] Work Phone: BONE MARROW ANALYSIS BONE MARROW ANALYSIS Lab Routine MDS (myelodysplastic syndrome), low grade (HCC) 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 (HCC) 01/08/2023 1:53 PM EST [facility] Work Phone: BONE MARROW CHROMOSO ME ANAL BONE MARROW CHROMOSOME ANAL Lab Routine MDS (myelodysplastic syndrome), low grade (HCC) 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 (HCC) 01/08/2023 1:53 PM EST [facility] Work Phone: CBC W Auto Different ial panel - Blood [facility] Work Phone: End: 01-24-2024 CBC W Auto Differential panel - Blood CBC + DIFF Lab STAT MDS (myelodysplastic syndrome), low grade (HCC) Every other week for 26 Occurrences starting 01/24/2023 until 01/24/2024, 1 completed [facility] Work Phone: Comment on above: Every other week for 26 Occurrences [facility] 01/24/2023 until 01/24/2024, 1 completed CBC W Auto Different ial panel - Blood [facility] CBC W Auto Different ial panel - Blood [facility] CBC W Auto Different ial panel - Blood [facility] End: 02-10-2025 CBC W Auto Differential panel - Blood CBC + DIFF Lab STAT MDS (myelodysplastic syndrome), low grade (HCC) Macrocytic anemia 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 (HCC) Iron overload, transfusional 52 Occurrences starting 02/11/2024 until 02/10/2025 [facility] Work Phone: Comment on above: 52 Occurrences starting 02/11/2024 until 02/10/2025 End: 12-26-2023 Ct abdomen & pelvis w/contrast material CT ABD/PEL W IVCON Radiology Routine MDS (myelodysplastic syndrome), low grade (HCC) Waldenstrom macroglobulinemia (HCC) Splenomegaly 1 Occurrences starting 11/26/2022 until 12/26/2023 [facility] Work Phone: Comment on above: 1 Occurrences starting 11/26/2022 until 12/26/2023 End: 12-26-2023 CT CHEST W IVCON CT CHEST W IVCON Radiology Routine MDS (myelodysplastic syndrome), low grade (HCC) Waldenstrom macroglobulinemia (HCC) Splenomegaly 1 Occurrences starting 11/26/2022 until 12/26/2023 [facility] Work Phone: Comment on above: 1 Occurrences starting 11/26/2022 until 12/26/2023 DNA EXTRACTION BONE MARROW (BUFFY COAT) DNA EXTRACTION BONE MARROW (BUFFY COAT) Lab Routine MDS (myelodysplastic syndrome), low grade (HCC) 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 (HCC) 01/08/2023 1:53 PM EST [facility] Work Phone: End: 02-14-2024 ECG COMPLETE ECG COMPLETE ECG Routine Bradycardia 1 Occurrences starting 02/13/2023 until 02/14/2024 [facility] Work Phone: Comment on above: 1 Occurrences starting 02/13/2023 until 02/14/2024 FLOW CYTOMETRY BONE MARROW HOLD (BMHOLD) FLOW CYTOMETRY BONE MARROW HOLD (BMHOLD) Lab Routine MDS (myelodysplastic syndrome), low grade (HCC) 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 (HCC) 01/08/2023 1:53 PM EST [facility] Work Phone: [facility] Work Phone: MR Brain WO and W contrast IV [facility] Work Phone: [id number] MUTATION ANALYSIS MARROW [id number] MUTATION ANALYSIS MARROW Lab Routine MDS (myelodysplastic syndrome), low grade (HCC) 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 (HCC) 01/08/2023 1:53 PM EST [facility] Work Phone: Patient Education [facility] Work Phone: Patient referral [facility] Work Phone: Positron emission tomography with computed tomography [facility] Work Phone: Reticulocyte count [facility] Work Phone: Urinalysis complete panel - Urine URINALYSIS (WITH MICROSCOPIC) WITH CULTURE IF INDICATED Lab Routine Urgency of urination 01/27/2025 12:32 PM EDT [facility] End: 05-21-2026 US Abdomen RUQ US ABD RIGHT UPPER QUADRANT Radiology Routine MDS (myelodysplastic syndrome), low grade (HCC) Iron overload Splenomegaly 1 Occurrences starting 04/21/2025 until 05/21/2026 [facility] Work Phone: Comment on above: 1 Occurrences starting 04/21/2025 until 05/21/2026 US Abdomen RUQ US ABD RIGHT UPP ER QUADRANT Radiology Routine MDS (myelodysplastic syndrome), low grade (HCC) Iron overload Splenomegaly 05/05/2025 11:53 AM EDT [facility] End: 05-05-2025 Us abdominal real time w/image limited [facility] Work Phone: Comment on above: ONCE for 1 Occurrences starting 05/05/20 until 05/05/[address] [facility] End: 07-09-2025 US Spleen US ABD SPLEEN Radiology Routine Splenomegaly 1 Occurrences starting 06/09/2024 until 07/09/2025 [facility] Work Phone: Comment on above: 1 Occurrences starting 06/09/2024 until 07/09/2025 US Spleen US ABD SPLEEN Ra diology Routine Splenomegaly 06/24/2024 11:30 AM EDT [facility] Work Phone: [facility] Immunizations Immunization Date Immunization Notes Care Provider Elina hall 10-28-2017 influenza virus vacc ine, unspecified formulation Steven Akers DO Work Phone: [facility] 05-04-2015 pneumococcal conjuga te vaccine, 13 valent Shaheed Cervantes MD Work Phone: [facility] 07-07-2013 zoster vaccine, live Shaheed Cervantes MD Work Phone: [facility] 03-24-2013 pneumococcal polysaccharide vaccine, 23 valent Shaheed Cervantes MD Work Phone: [facility] 09-04-2010 influenza virus vacc ine, unspecified formulation Shaheed Cervantes MD Work Phone: [facility] Work Phone: 09-25-2007 influenza virus vacc ine, whole virus Shaheed Cervantes MD Work Phone: [facility] Payers Date Payer Category Payer Self-pay [id number] 2019 Unknown PRIMETIME PRIMET JARED HMO POS [id number] 2019-Present [phone] [address] [place] [address] O [id number] 2019 Medicare (Managed Care) PRIMETIM E [id number] 2019 Unknown [id number]. [id number] 2019 Unknown [id number] Medicare [id number] Unknown [id number] 2.840.1.273697.3.579. 2.462 Unknown [id number] 2.840.1.508564.3.579. 2.462 Unknown [id number] 2.840.1.068198.3.579. 2.462 Unknown [id number] 2.16840.1.083935.3.579. 2.462 Unknown [id number] 2.840.1.265052.3.579. 2.462 Unknown [id number] 2.16.840.1.495230.3.579. 2.462 Unknown [id number] 2.16.840.1.728024.3.579. 2.462 Unknown [id number] 2.16.840.1.356351.3.579. 2.462 Unknown [id number] 2.16.840.1.814274.3.579. 2.462 Unknown [id number] 2.16.840.1.327990.3.579. 2.462 Unknown [id number] 2.16.840.1.784791.3.579. 2.462 Unknown [id number] 2..840.1.286478.3.579. 2.462 Unknown [id number] 2.16.840.1.302706.3.579. 2.462 Unknown [id number] 2.16.840.1.227679.3.579. 2.462 Unknown [id number] 2.16.840.1.372718.3.579. 2.462 Unknown [id number] 2.16.840.1.167972.3.579. 2.462 Unknown [id number] 2.16.840.1.538619.3.579. 2.462 Unknown [id number] 2.16.840.1.569771.3.579. 2.462 Unknown [id number] 2.16.840.1.650087.3.579. 2.462 Unknown [id number] 2.16.840.1.655637.3.579. 2.462 Unknown [id number] 2.16.840.1.011293.3.579. 2.462 Unknown [id number] 2.16.840.1.342965.3.579. 2.462 Unknown [id number] 2.16.840.1.337784.3.579. 2.462 Unknown [id number] 2.16.840.1.251104.3.579. 2.462 Unknown [id number] 2.16.840.1.575192.3.579. 2.462 Unknown [id number] 2.16.840.1.261114.3.579. 2.462 Unknown [id number] 2.16.840.1.639120.3.579. 2.462 Social History Date Type Detail Facility Start: 03-15-2011 End: 02-10-2025 Tobacco smoking status NHIS Ex-smoker [facility] Work Phone: Start: 11-09-1961 End: 11-09-1977 History of tobacco use Current smoker [facility] Work Phone: Start: 11-09-1961 End: 11-09-1977 History of tobacco use Cigarette Smoker [facility] Work Phone: Start: 03-15-2011 End: 03-18-2023 Cigarettes smoked current (pack per day) - Reported 0.8 [facility] Start: 03-15-2011 End: 07-20-2024 Tobacco use and exposure Smokeless tobacco non-user [facility] Work Phone: Start: 01-01-2022 End: 01-29-2024 Alcohol intake Current non-drinker of alcohol (finding) [facility] Start: 08-14-2020 End: 03-30-2023 History SDOH Alcohol Frequency 1 [facility] Start: 09-14-2020 History SDOH Alcohol Std Drinks 98 [facility] Start: 09-14-2020 End: 03-30-2023 History SDOH Social Connections Phone 3 [facility] Start: 08-14-2020 End: 03-30-2023 History SDOH Social Connections Get Together 2 [facility] Start: 08-14-2020 End: 03-30-2023 History SDOH Financial 5 [facility] Start: 08-14-2020 Education 9 [facility] Start: 07-14-2015 End: 04-03-2023 Tobacco Comment Smoked from age [age]. [facility] Start: 1945 Sex Assigned At Male [facility] Start: 08-13-2021 End: 01-12-2024 Tobacco smoking status ALIS Unknown if ever smoked [facility] Start: 05-30-2020 None [facility] Start: 05-30-2020 Spouse/ Significant Other [facility] Start: 06-02-2020 Non-smoker [facility] Start: 03-30-2023 History SDOH Alcohol Std Drinks 0 [facility] Start: 03-30-2023 History SDOH Physical Activity MPS 8 [facility] Start: 03-18-2023 End: 03-30-2023 Social connection and isolation panel [facility] Do you belong to any clubs or organizations such as oriental orthodox groups, unions, fraTictail or athletic groups, or school groups? Yes [facility] Are you now , , , , never or living with a partner? [facility] How often to you hav e a drink containing alcohol? Never [facility] Start: 10-11-2012 How many standard drinks containing alcohol do you have on a typical day? Patient does not drink [facility] Do you feel stress - tense, restless, nervous, or anxious, or unable to sleep at night because your mind is troubled all the time - these days [OSQ] Only a little [facility] (I/We) worried whegeorge er (my/our) food would run out before (I/we) got money to buy more. Never true [facility] In the past 12 month s, was there a time when you were not able to pay the mortgage or rent on time? No [facility] Start: 06-11-2020 Gender identity Identifies as male gender (finding) [facility] Start: 06-11-2020 Sexual orientation Heterosexual (finding) [facility] Do you feel stress - tense, restless, nervous, or anxious, or unable to sleep at night because your mind is troubled all the time - these days [OSQ] To some extent [facility] Start: 04-21-2024 End: 06-30-2025 Alcohol intake Ex-drinker (finding) [facility] How hard is it for y ou to pay for the very basics like food, housing, medical care, and heating Not very hard [facility] Start: 08-15-2021 End: 09-14-2021 Exposure to SARS-CoV-2 (event) Not sure [facility] Start: 01-15-2025 End: 02-26-2025 Sex Male (finding) [facility] Goals Date Patient Goal Desired Activity /State Functional Status Date Assessment Result Facility 06-30-2025 Total score [AUDIT-C] 0 06/30/20 11:13 AM EDT Henrry Wilkinson MA [facility] 05-14-2022 Functional status Chair [facility] Work Phone: 05-13-2022 Functional status Tolerates Activity Well [facility] Work Phone: 05-04-2015 Are you deaf, or do you have serious difficulty hearing No 05/04/2015 1:57 PM EDT Cecille Laws Ma No [facility] 05-04-2015 Are you blind, or do you have serious difficulty seeing, even when wearing glasses Yes 05/04/2015 1:57 PM EDT Cecille Laws Ma Yes [facility] 05-04-2015 Do you have serious difficulty walking or climbing stairs No 05/04/2015 1:57 PM EDT Cecille Laws Ma No [facility] 05-04-2015 Do you have difficul ty dressing or bathing No 05/04/2015 1:57 PM EDT Cecille Laws Ma No [facility] 05-04-2015 Because of a physica l, mental, or emotional condition, do you have difficulty doing errands alone such as visiting a physician's office or shopping No 05/04/2015 1:57 PM EDT Cecille Laws Ma No [facility] Mental Status Date Assessment Result Facility 09-09-2025 Cognitive function [facility] Work Phone: 08-26-2025 Cognitive function Voice[facility] Work Phone: 08-12-2025 Cognitive function [facility] Work Phone: 07-29-2025 Cognitive function Voice/[facility] Work Phone: 07-15-2025 Cognitive function Voice[facility] Work Phone: 07-01-2025 Cognitive function Awake;Alert;A ppropriate;Fol lows Commands [facility] Work Phone: 06-17-2025 Cognitive function Voice/[facility] Work Phone: 06-03-2025 Cognitive function Awake;Alert;A ppropriate;Fol lows Commands [facility] Work Phone: 05-20-2025 Cognitive function Voice[facility] Work Phone: 04-22-2025 Cognitive function Awake;Alert;A ppropriate;Fol lows Commands [facility] Work Phone: 04-08-2025 Cognitive function Voice/[facility] Work Phone: 03-11-2025 Cognitive function Awake;Alert;A ppropriate;Fol lows Commands [facility] Work Phone: 02-25-2025 Cognitive function Voice/Name [facility] Work Phone: 02-11-2025 Cognitive function Awake;Alert;A ppropriate;Fol lows Commands [facility] Work Phone: 12-31-2024 Cognitive function Awake;Alert;A ppropriate;Fol lows Commands [facility] Work Phone: 12-17-2024 Cognitive function Awake;Alert;A ppropriate;Fol lows Commands [facility] Work Phone: 11-12-2024 Cognitive function Awake;Alert;A ppropriate;Fol lows Commands [facility] Work Phone: 10-22-2024 Cognitive function Awake;Alert;A ppropriate;Fol lows Commands [facility] Work Phone: 10-01-2024 Cognitive function Awake;Alert;A ppropriate;Fol lows Commands [facility] Work Phone: 09-24-2024 Cognitive function [facility] Work Phone: 03-22-2024 Cognitive function Voice/[facility] Work Phone: 03-05-2024 Cognitive function Awake;Alert;A ppropriate;[facility] lows Commands [facility] Work Phone: 02-20-2024 Cognitive function Voice/[facility] Work Phone: 01-30-2024 Cognitive function Voice/[facility] Work Phone: 01-02-2024 Cognitive function Level Of Cons ciousness Awake;Alert;Appropriate;Fol lows Commands [facility] Work Phone: 12-12-2023 Cognitive function Voice/[facility] Work Phone: 11-28-2023 Cognitive function Awake;Alert;A ppropriate;[facility] lows Commands [facility] Work Phone: 11-14-2023 Cognitive function Awake;Alert;A ppropriate;[facility] lows Commands [facility] Work Phone: 09-19-2023 Cognitive function Awake;Alert;A ppropriate;[facility] lows Commands [facility] Work Phone: 08-22-2023 Cognitive function Voice/[facility] Work Phone: 08-08-2023 Cognitive function Awake;Alert;A ppropriate;[facility] lows Commands [facility] Work Phone: 07-04-2023 Cognitive function Awake;Alert;A ppropriate;[facility] lows Commands [facility] Work Phone: 06-20-2023 Cognitive function Voice/[facility] Work Phone: 06-06-2023 Cognitive function Awake;Alert;A ppropriate;[facility] lows Commands [facility] Work Phone: 05-02-2023 Cognitive function [facility]/Name [facility] Work Phone: 04-04-2023 Cognitive function Voice/Name [facility] Work Phone: 03-21-2023 Cognitive function Voice/[facility] Work Phone: 03-07-2023 Cognitive function Voice/[facility] Work Phone: 01-27-2023 Cognitive function Voice/[facility] Work Phone: 01-09-2023 Cognitive function Voice/[facility] Work Phone: 12-19-2022 Cognitive function Awake;Alert;A ppropriate;Fol lows Commands [facility] Work Phone: 11-13-2022 Cognitive function Voice[facility] Work Phone: 05-14-2022 Cognitive function Appropriate;Cooperativ e [facility] Work Phone: 05-14-2022 Cognitive function Voice[facility] Work Phone: 05-09-2022 Cognitive function Level Of Cons ciousness Awake;Alert;Appropriate;Fol lows Commands [facility] Work Phone: 05-01-2022 Cognitive function Voice/[facility] Work Phone: 02-15-2022 Cognitive function Voice/[facility] Work Phone: 12-18-2021 Cognitive function Level Of Cons ciousness Alert;Appropriate;Follows Commands [facility] Work Phone: 11-23-2021 Cognitive function Voice/Name [facility] Work Phone: 05-04-2015 Because of a physica l, mental, or emotional condition, do you have serious difficulty concentrating, remembering, or making decisions Yes 05/04/2015 1:57 PM EDT Cecille Laws Ma Yes [facility] Clinical Notes 12-13-2015 to 07-28-2025 Telephone Encounter - Domonique Lara LPN - 07/14/2025 12:17 PM EDTTelephone Encounter - Domonique Lara LPN - 07/14/2025 12:17 PM Steven Braxton DO - 06/30/2025 11:41 AM EDTPatient Instructions Note Date & Type Note [facility] 07-28-2025 Note [facility] 07-28-2025 Note [facility] 07-14-2025 Telephone encounter Note Pt. Scheduled for transfusion 2 units packed cells @ [facility] 07/15@ 8:30 am . Pt. And lab notified orders faxed. Domonique Lara LPN [facility] 07-14-2025 Miscellaneous Notes Pt. Scheduled for transfusion 2 units packed cells @ [facility] 07/15@ 8:30 am . Pt. And lab notified orders faxed. Domonique Lara LPN documented in this encounter [facility] 06-30-2025 Telephone encounter Note Patient scheduled for 2 units of PRBC to be given tomorrow 07/01/25 at 0830. Pt aware and order faxed to [facility]. Sara Milian LPN [facility] 06-30-2025 Miscellaneous Notes Patient scheduled for 2 units of PRBC to be given tomorrow 07/01/25 at 0830. Pt aware and order faxed to [facility]. 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 Transfusion dependent. 5) Sensory neuropathy. HPI: The patient is an 80 yo male who had an unremarkable PMH. Evaluated 06/29/2015 for c/o sore throat, malaise and low grade fever that had been going on for about 2 weeks. Was found to have macrocytic anemia and elevated serum iron and ferritin. Stool hemoccult negative. MDS and low burden lymphoplasmacytic lymphoma. Transferred care to [facility] early 2021. Was treated with Inqovi 04/2022 for about a week, but developed pancytopenia and neutropenic fever requiring hospitalization and transfusional support. However, he didn't require RBC transfusion for several months. Current therapy: 1) Low dose decitabine. Presents for ongoing oncologic management. Interim history: He was seen and evaluated by palliative care. Rotated from tramadol to oxycodone. Helping better with back pain. He continues to have generalized fatigue. Uses a walker at home. Only able to get up and down a couple steps to get in and out of the house. Gets very symptomatic if his hemoglobin gets under 8 to 8.5 g/dL. PMH, medications and allergies personally reviewed by me today. Any changes documented in appropriate section. ROS: Constitutional: No episode of fever, shaking chill and night sweats. Appetite is normal. Neuro: Denies vertigo. HEENT: No recent change in voice, vision. Resp: Denies cough, wheeze and hemoptysis. CVS: See above. GI: No dysphagia or odynophagia. No nausea or vomiting. Bowels are moving normally. Endo: No hot flashes. Musculoskeletal: Chronic LBP. Derm: No rash. Heme: No unusual bleeding or bruising. Psych: Normal mood. PHYSICAL EXAM: Vitals: Blood pressure 124/71, pulse 71, temperature 36.5 C (97.7 F), temperature source Temporal, weight 80.7 kg (178 lb), SpO2 98%. Fatigued-appearing and in no acute distress. EYES: Sclerae are anicteric bilaterally. LYMPHATIC: There is no palpable cervical or supraclavicular adenopathy. CARDIOVASCULAR: Rhythm is regular. Mild systolic murmur. ABDOMEN: The abdomen is distended. SKIN: No jaundice. LABS: PATHOLOGY: Bone marrow biopsy 01/08/2023: A-C. Bone marrow, biopsy core, aspirate clot, touch imprint and aspirate smear: - Myelodysplastic syndrome with low blast count and ring sideroblasts. - See comment. D. Peripheral blood smear: - Myelodysplastic syndrome. - See comment. The patient has a history of myelodysplastic syndrome and of monoclonal B cell population associated with an M protein characterized as IgM kappa. The findings in this case consist of pancytopenia associated with a slightly hypercellular bone marrow with numerous ring sideroblasts and hypogranular neutrophils. Flow cytometric immunophenotypic analysis performed on this specimen identified no evidence of an abnormal population. In conclusion, the findings in this case indicate the persistence of the previously diagnosed myelodysplastic syndrome (MDS). Adequate classification requires additional molecular and cytogenetic data, but the differential diagnosis includes MDS with mutated SF3B1 or MDS with multilineage dysplasia in the ICC 2021 classification or, in the WHO 2021 classification MDS with low blasts and SF3B1 mutation or MDS with low blasts. There is no definitive evidence of a low grade lymphoproliferative disorder or of a plasma cell neoplasm. Correlation with molecular and conventional cytogenetic findings is necessary. DIAGNOSIS: 46,XY[20] ASSESSMENT/PLAN: (D46.20) MDS (myelodysplastic syndrome), low grade (HCC) (D53.9) Macrocytic anemia Assessment: -RARS. MDS-SF3B1. -IPSS=0 Low risk. -IPSS-R=2 Low risk. 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 -No significant amount of lymphoplasmacytic lymphoma identified on bone marrow biopsy 01/2023. -Initially he seemed to respond well to Luspatercept. However lost response. -No decrease in RBC transfusion requirements with nearly 7 months of low dose decitabine. We decided to stop and continue supportive care. - His PSA has been slowly declining but remains at ECOG 2. He benefits from 2 units of red blood cells typically every 2 weeks. We discussed the risks and benefits of continued transfusion of 2 units even if hemoglobin not necessarily under 8.0 g/dL. He seems to get better symptomatic relief that way and therefore we will continue that treatment strategy. - We discussed addition of dexamethasone as recommended by palliative care. No contraindication from the standpoint of his MDS and anemia. May be best to check with his PCP about getting a prescription for a home glucometer. I discussed the potential for steroid myopathy and GI side effects. Plan: -Every 2 week CBC/possible transfusion. -Plan to units every 2 weeks. 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 -Had CD5 negative low-grade lymphoproliferative disorder identified by flow cytometry only on original bone marrow aspirate. The clonal cells were lambda light chain restricted. -Has polyneuropathy. Previous MAG antibody testing negative. No progression. -Flow cytometry on the aspirate from 01/08/2023 demonstrated no immunophenotypic evidence of a lymphoproliferative disorder. 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 -No clinical consequence as of now. Plan: -Recheck as indicated. (E83.19) Iron overload Assessment: -Declined iron chelation. -We again discussed the rationale for iron chelation therapy. He again expressed his desire for quality of life over quantity of life and understands that iron overload may lead to mortality. 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 Plan: -Will continue monitoring hepatocellular enzymes every 3 months. (M54.50, G89.29) Chronic midline low back pain without sciatica Assessment: -Responding better to oxycodone. Plan: -Follow up with palliative care. Portions of this documentation were copied and pasted from my previous office visit note dated 04/21/2025 in order to provide a cohesive continuity of the history. The note has been reviewed and edited and updated as necessary. I spent a total of 20 minutes on the date of the service which included preparing to see the patient, [id number] patient care, completing clinical documentation, obtaining and/or reviewing separately obtained history, performing a medically appropriate examination, counseling and educating the patient/family/caregiver, communicating with other HCPs (not separately reported), and communicating results to the patient/family/caregiver. Steven Akers DO documented in this encounter [facility] 06-02-2025 Telephone encounter Note Patient scheduled for 2 units PRBC 06/03/2025 @ 0830, [facility]. Orders faxed. Patient and lab aware. Margot Cox LPN [facility] 06-02-2025 Miscellaneous Notes Patient scheduled for 2 units PRBC 06/03/2025 @ 0830, [facility]. Orders faxed. Patient and lab aware. Margot Cox LPN documented in this encounter [facility] 05-19-2025 Telephone encounter Note Hgb 7.4 Patient scheduled for 2 units of PRBC on 05/20/25 at 0830. Order faxed. Patient notified. Sara Milian LPN [facility] 05-19-2025 Miscellaneous Notes Hgb 7.4 Patient scheduled for 2 units of PRBC on 05/20/25 at 0830. Order faxed. Patient notified. Sara Milian LPN documented in this encounter [facility] 05-09-[address] Akers response to ultrasound results sent to pt. Via my chart. Domonique Lara LPN [facility] 05-09-[address] Akers response to ultrasound results sent to pt. Via my chart. Domonique Lara LPN I called and left a message for Atldanette to call back to receive the below message Yolanda Rivera Pss Let him know the ultrasound shows spleen is mildly enlarged. Not significantly so. Liver appears normal with no evidence of cirrhosis which is great. Right renal cyst which is stable when compared to CT scan in 2022. It appears benign. Steven Akers DO documented in this encounter [facility] 05-08-2025 Telephone encounter Note I called and left a message for Atlee to call back to receive the below message Yolanda Rivera Pss [facility] 05-08-2025 Telephone encounter Note Let him know the ultrasound shows spleen is mildly enlarged. Not significantly so. Liver appears normal with no evidence of cirrhosis which is great. Right renal cyst which is stable when compared to CT scan in 2022. It appears benign. Steven Akers DO [facility] 05-05-2025 Telephone encounter Note Pt. Scheduled for transfusion 2 units packed cells @ [facility] 05/05 @ 8:30 am. Pt. And lab notified, orders faxed. Domonique Lara LPN [facility] 05-05-2025 Miscellaneous Notes Pt. Scheduled for transfusion 2 units packed cells @ [facility] 05/05 @ 8:30 am. Pt. And lab notified, orders faxed. Domonique Lara LPN documented in this encounter [facility] 05-05-2025 History of Present illness Narrative Radiology Service Progress Note PATIENT NAME: Loreta Hurst DATE OF SERVICE: May 05, 2025 TIME: 12:01 PM PATIENT IDENTITY VERIFICATION COMPLETED USING TWO (2) IDENTIFIERS: Name and Date of confirmed by patient verbally. FALL SCREENING: Has the patient had 2 falls in the last year or 1 fall with injury or currently using an Ambulatory Assistive Device (Walker, Cane, Wheelchair, Crutches, etc.)? No PATIENT GENDER DATA: Assigned male at PATIENT RELEVANT IMPLANT DATA REVIEWED: Not Applicable PATIENT PRESENTS WITH AN IMPLANTABLE OR ATTACHED TANK BUILDER HELPER: No RADIOLOGY DEPARTMENT: Ultrasound PERIPHERAL IV DATA: Not applicable SIGNED BY: Ritu Millan RDMS RVT May 05, 2025 12:01 PM documented in this encounter [facility] 05-05-2025 Note [facility] 04-21-2025 Telephone encounter Note Transfusion @ [facility] 04/22@ 8:30 , 2 units packed cells . Pt and lab notified, orders faxed. Domonique Lara LPN [facility] 04-21-2025 Miscellaneous Notes Transfusion @ [facility] /13@ 8:30 , 2 units packed cells . Pt and lab notified, orders faxed. Domonique Lara LPN documented in this encounter [facility] 04-21-2025 Note [facility] 04-21-2025 History of Present illness Narrative Diagnoses: 1) 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 Transfusion dependent. 5) Sensory neuropathy. HPI: The patient is an 79 yo male who had an unremarkable PMH. Evaluated 06/29/2015 for c/o sore throat, malaise and low grade fever that had been going on for about 2 weeks. Was found to have macrocytic anemia and elevated serum iron and ferritin. Stool hemoccult negative. MDS and low burden lymphoplasmacytic lymphoma. Transferred care to [facility] early 2021. Was treated with Inqovi 04/2022 for about a week, but developed pancytopenia and neutropenic fever requiring hospitalization and transfusional support. However, he didn't require RBC transfusion for several months. Current therapy: 1) Low dose decitabine. Presents for ongoing oncologic management. Interim history: Back pain still limits walking. Tramadol continues to significantly help. When he receives 1 unit of RBCs every other week, he is completely disabled the second week. He cannot get out of the recliner due to shortness of breath and exhaustion. He is not able to lie flat any longer to sleep. Has a lot more abdominal bloating. Not eating as much because of early satiety. Very infrequently takes furosemide. Only takes it if he gets leg swelling. Palliative care discussed adding duloxetine and discontinuing BuSpar and hydroxyzine. PMH, medications and allergies personally reviewed by me today. Any changes documented in appropriate section. ROS: Constitutional: No episode of fever, shaking chill and night sweats. Appetite is normal. Neuro: Denies vertigo. HEENT: No recent change in voice, vision. Resp: Denies cough, wheeze and hemoptysis. CVS: See above. GI: No dysphagia or odynophagia. No nausea or vomiting. Bowels are moving normally. Endo: No hot flashes. Musculoskeletal: Chronic LBP. Derm: No rash. Heme: No unusual bleeding or bruising. Psych: Normal mood. PHYSICAL EXAM: Vitals: Blood pressure 119/52, pulse 67, temperature 36.7 C (98.1 F), temperature source Temporal Artery, resp. rate 17, height 174.1 cm (5' 8.54), weight 81.6 kg (180 lb), SpO2 96%. Fatigued-appearing and in no acute distress. EYES: Sclerae are anicteric bilaterally. LYMPHATIC: There is no palpable cervical or supraclavicular adenopathy. CARDIOVASCULAR: Rhythm is regular. Mild systolic murmur. ABDOMEN: The abdomen is distended. SKIN: No jaundice. LABS: PATHOLOGY: Bone marrow biopsy 01/08/2023: A-C. Bone marrow, biopsy core, aspirate clot, touch imprint and aspirate smear: - Myelodysplastic syndrome with low blast count and ring sideroblasts. - See comment. D. Peripheral blood smear: - Myelodysplastic syndrome. - See comment. The patient has a history of myelodysplastic syndrome and of monoclonal B cell population associated with an M protein characterized as IgM kappa. The findings in this case consist of pancytopenia associated with a slightly hypercellular bone marrow with numerous ring sideroblasts and hypogranular neutrophils. Flow cytometric immunophenotypic analysis performed on this specimen identified no evidence of an abnormal population. In conclusion, the findings in this case indicate the persistence of the previously diagnosed myelodysplastic syndrome (MDS). Adequate classification requires additional molecular and cytogenetic data, but the differential diagnosis includes MDS with mutated SF3B1 or MDS with multilineage dysplasia in the ICC 2021 classification or, in the WHO 2021 classification MDS with low blasts and SF3B1 mutation or MDS with low blasts. There is no definitive evidence of a low grade lymphoproliferative disorder or of a plasma cell neoplasm. Correlation with molecular and conventional cytogenetic findings is necessary. DIAGNOSIS: 46,XY[20] ASSESSMENT/PLAN: (D46.20) MDS (myelodysplastic syndrome), low grade (HCC) (D53.9) Macrocytic anemia Assessment: -RARS. MDS-SF3B1. -IPSS=0 Low risk. -IPSS-R=2 Low risk. 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 -No significant amount of lymphoplasmacytic lymphoma identified on bone marrow biopsy 01/2023. -Initially he seemed to respond well to Luspatercept. However lost response. -No decrease in RBC transfusion requirements with nearly 7 months of low dose decitabine. We decided to stop and continue supportive care. -We discussed transfusional needs. I would like to spare transfusion if possible due to untreated iron overload but again he favors a more palliative approach and has a better quality life when he receives 2 units every 2 weeks. - Worsening abdominal distention with early satiety. No fluid wave per se appreciated on exam but discussed obtaining repeat ultrasound liver and spleen as iron overload may be leading to more fibrosis and/or cirrhosis. Note ALT is mildly elevated. Plan: -Every 2 week CBC/possible transfusion. - Plan to units every 2 weeks. 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 -Had CD5 negative low-grade lymphoproliferative disorder identified by flow cytometry only on original bone marrow aspirate. The clonal cells were lambda light chain restricted. -Has polyneuropathy. Previous MAG antibody testing negative. No progression. -Flow cytometry on the aspirate from 01/08/2023 demonstrated no immunophenotypic evidence of a lymphoproliferative disorder. 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 -No clinical consequence as of now. Plan: -Recheck as indicated. (E83.19) Iron overload Assessment: -Declined iron chelation. -Hepatocellular enzymes had been stable. Now starting to increase. -We again discussed the rationale for iron chelation therapy. He again expressed his desire for quality of life over quantity of life and understands that iron overload may lead to mortality. 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 Plan: -Will continue monitoring hepatocellular enzymes. -Stop checking ferritin. (M54.50, G89.29) Chronic midline low back pain without sciatica Assessment: -He continues to use tramadol regularly and it helps the pain enough that he can do some light house work and get out of the house. -Opiate agreement form signed today. -PDMP checked. Plan: -Appropriate for monthly refills. -Okay to start Cymbalta. Recommend starting 30 mg daily for 1 to 2 weeks then increasing to 60 mg daily pending tolerance. Portions of this documentation were copied and pasted from my previous office visit note dated 12/16/2024 in order to provide a cohesive continuity of the history. The note has been reviewed and edited and updated as necessary. I spent a total of 30 minutes on the date of the service which included [id number] patient care, completing clinical documentation, obtaining and/or reviewing separately obtained history, performing a medically appropriate examination, counseling and educating the patient/family/caregiver, ordering medications, tests, or procedures, communicating with other HCPs (not separately reported), and communicating results to the patient/family/caregiver. Steven Akers DO documented in this encounter [facility] 04-18-2025 Telephone encounter Note The following approved medication requests have been transmitted electronically. Requested Prescriptions Pending Prescriptions Disp Refills Tadalafil (CIALIS) 2.5 mg tablet 30 tablet 5 Sig: Take 1 tablet by mouth once daily. busPIRone (BUSPAR) 5 mg tablet 90 tablet 2 Sig: Take 1 tablet by mouth three times a day. Gladys Da Silva APRN.CNP [facility] 04-18-2025 Miscellaneous Notes The following approved medication requests have been transmitted electronically. Requested Prescriptions Pending Prescriptions Disp Refills Tadalafil (CIALIS) 2.5 mg tablet 30 tablet 5 Sig: Take 1 tablet by mouth once daily. busPIRone (BUSPAR) 5 mg tablet 90 tablet 2 Sig: Take 1 tablet by mouth three times a day. Gladys Da Silva APRN.CNP Prescription Refill Information The patient has been identified by name and date of : Yes Caregiver verified no other encounters exist for this prescription request: Yes Caregiver confirmed with patient/requestor that no other refills are due, in the near future, with this provider at this time: Yes The last office visit in the department: 01/27/25 Does the patient have a future office visit with this provider/department: Yes: 07/28/25 Requested Prescriptions Pending Prescriptions Disp Refills Tadalafil (CIALIS) 2.5 mg tablet 30 tablet 5 Sig: Take 1 tablet by mouth once daily. busPIRone (BUSPAR) 5 mg tablet 90 tablet 2 Sig: Take 1 tablet by mouth three times a day. Montse Poe MA April 18, 2025 1:05 PM documented in this encounter [facility] 04-18-2025 Telephone encounter Note Prescription Refill Information The patient has been identified by name and date of : Yes Caregiver verified no other encounters exist for this prescription request: Yes Caregiver confirmed with patient/requestor that no other refills are due, in the near future, with this provider at this time: Yes The last office visit in the department: 01/27/25 Does the patient have a future office visit with this provider/department: Yes: 07/28/25 Requested Prescriptions Pending Prescriptions Disp Refills Tadalafil (CIALIS) 2.5 mg tablet 30 tablet 5 Sig: Take 1 tablet by mouth once daily. busPIRone (BUSPAR) 5 mg tablet 90 tablet 2 Sig: Take 1 tablet by mouth three times a day. Montse Poe MA April 18, 2025 1:05 PM [facility] 04-07-2025 Telephone encounter Note Pt. Scheduled for transfusion [facility] 04/08 @ 8 am 2 unoits packed cells, pt. And lab aware, orders faxed. Domonique Lara LPN [facility] 04-07-2025 Miscellaneous Notes Pt. Scheduled for transfusion [facility] 04/08 @ 8 am 2 unoits packed cells, pt. And lab aware, orders faxed. Domonique Lara LPN documented in this encounter [facility] 03-24-2025 Telephone encounter Note Pt. Scheduled for transfusion 1 unit packed cells @ [facility] 03/25@ 8 am. Pt and lab notified, orders faxed. Domonique Lara LPN [facility] 03-24-2025 Miscellaneous Notes Pt. Scheduled for transfusion 1 unit packed cells @ [facility] 03/25@ 8 am. Pt and lab notified, orders faxed. Domonique Lara LPN documented in this encounter [facility] 03-10-2025 Telephone encounter Note Patient scheduled for 2 units PRBC 03/11/2025 @ 0800, [facility]. Orders faxed. Patient and lab aware. Margot Cox LPN [facility] 03-10-2025 Miscellaneous Notes Patient scheduled for 2 units PRBC 03/11/2025 @ 0800, [facility]. Orders faxed. Patient and lab aware. Margot Cox LPN documented in this encounter [facility] 03-04-2025 Note [facility] 02-24-2025 Progress note Formatting of t his note might be different from the original. TSH is therapeutic. I will continue you on your current dose of levothyroxine for the next 6 months. [facility] 02-24-2025 Miscellaneous Notes TSH is therapeutic. I will continue you on your current dose of levothyroxine for the next 6 months. documented in this encounter [facility] 02-24-2025 Telephone encounter Note Pt. Scheduled for transfusion 2 units packed cells @ [facility] 02/25@ 8:30 m. Pt. And lab notified, orders faxed. Domonique Lara LPN [facility] 02-24-2025 Miscellaneous Notes Pt. Scheduled for transfusion 2 units packed cells @ [facility] 02/25@ 8:30 m. Pt. And lab notified, orders faxed. Domonique Lara LPN documented in this encounter [facility] 02-24-2025 Note [facility] 02-24-2025 History of Present illness Narrative Diagnoses: 1) 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 Transfusion dependent. 5) Sensory neuropathy. HPI: The patient is an 79 yo male who had an unremarkable PMH. Evaluated 06/29/2015 for c/o sore throat, malaise and low grade fever that had been going on for about 2 weeks. Was found to have macrocytic anemia and elevated serum iron and ferritin. Stool hemoccult negative. MDS and low burden lymphoplasmacytic lymphoma. Transferred care to [facility] early 2021. Was treated with Inqovi 04/2022 for about a week, but developed pancytopenia and neutropenic fever requiring hospitalization and transfusional support. However, he didn't require RBC transfusion for several months. Current therapy: 1) Low dose decitabine. Presents for ongoing oncologic management. Interim history: Mr. Hurst presents today with his spouse, Sigrid. Reports had a lot going on since last OV. Recent UTI, requiring an ED visit on 02/10. Dysuria, incontinence. Treated with abx. Symptoms have resolved at this time. Numbness and tingling feeling across chest and arms 2 nights ago resolved within about a minute. This happened before when pt was on luspatercept, underwent complete cardiac workup at that time. He does not want any further work up or imaging. Overall health remains stable at this time. No new or worsening SOB, non labored. No CP, palpitations. He notes that when his hgb is low that he can feel pounding in his ears, none currently. No new or worsening neuropathy. Denies rashes or skin changes. Spouse demanding 2 units PRBCs, though his hgb 8.2. Discussed concerns for significant iron overload with frequency of transfusions leading to organ damage. Previous ferritin was over >10,000 12/2024. Declining iron chelation. Additionally diffuse increase in hepatic densities noted on recent CT scan from 02/10/2025 ED visit. His Hgb in ED was 7.1 for which he received 2 units on 02/11/2025. She is very adamant that PRBCs improve his SOB and fatigue. Will defer to Dr. Akers. PMH, medications and allergies as below personally reviewed by me today. Any changes documented in appropriate section. ROS: Constitutional: No episode of fever, shaking chills or night sweats. Appetite is normal. Neuro: Denies vertigo. HEENT: No recent change in voice, vision. Resp: Denies cough, wheeze and hemoptysis. CVS: See above. GI: No dysphagia or odynophagia. No nausea or vomiting. Bowels are moving normally. Endo: No hot flashes. Musculoskeletal: Chronic LBP. Stable Derm: No rash. Heme: No unusual bleeding or bruising. Psych: Normal mood. All systems reviewed on 02/24/2025 with pertinent positives and negatives as outlined in the interval history. PHYSICAL EXAM: Vitals: Blood pressure 133/70, pulse 67, temperature 36.7 C (98.1 F), temperature source Temporal, weight 81 kg (178 lb 8 oz), SpO2 98%. Fatigued-appearing and in no acute distress. EYES: Sclerae are anicteric bilaterally. LYMPHATIC: There is no palpable cervical or supraclavicular adenopathy. CARDIOVASCULAR: Rhythm is regular. Mild systolic murmur. CHEST; Clear, equal, unlabored breathing. ABDOMEN: The abdomen is mildly distended. SKIN: No rashes or ulcerations. Simms I have performed the physical exam today (02/24/2025) and have edited the note to correlate with current findings. LABS: PATHOLOGY: Bone marrow biopsy 01/08/2023: A-C. Bone marrow, biopsy core, aspirate clot, touch imprint and aspirate smear: - Myelodysplastic syndrome with low blast count and ring sideroblasts. - See comment. D. Peripheral blood smear: - Myelodysplastic syndrome. - See comment. The patient has a history of myelodysplastic syndrome and of monoclonal B cell population associated with an M protein characterized as IgM kappa. The findings in this case consist of pancytopenia associated with a slightly hypercellular bone marrow with numerous ring sideroblasts and hypogranular neutrophils. Flow cytometric immunophenotypic analysis performed on this specimen identified no evidence of an abnormal population. In conclusion, the findings in this case indicate the persistence of the previously diagnosed myelodysplastic syndrome (MDS). Adequate classification requires additional molecular and cytogenetic data, but the differential diagnosis includes MDS with mutated SF3B1 or MDS with multilineage dysplasia in the ICC 2021 classification or, in the WHO 2022 classification MDS with low blasts and SF3B1 mutation or MDS with low blasts. There is no definitive evidence of a low grade lymphoproliferative disorder or of a plasma cell neoplasm. Correlation with molecular and conventional cytogenetic findings is necessary. DIAGNOSIS: 46,XY[20] ASSESSMENT/PLAN: (D46.20) MDS (myelodysplastic syndrome), low grade (HCC) (D53.9) Macrocytic anemia Assessment: -RARS. MDS-SF3B1. -IPSS=0 Low risk. -IPSS-R=2 Low risk. -Significant secondary iron overload from dyserythropoiesis. -No significant amount of lymphoplasmacytic lymphoma identified on bone marrow biopsy 01/2023. -Initially he seemed to respond well to Luspatercept. However lost response. -No decrease in RBC transfusion requirements with nearly 7 months of low dose decitabine. It was decided to stop and continue supportive care. - hgb 8.2 today Plan: - discussed with patient and spouse transfusion not indicated for any hgb >8 and poses increased risk of iron overload especially in his case. Pt spouse is very adamant that he receive 2 units PRBC for symptom management. Last transfusion was on 02/11/25. - Defer to Dr. Akers - Continue every 2 week CBC/possible transfusion. - OV with Dr. Akers in 2 months. 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 -Had CD5 negative low-grade lymphoproliferative disorder identified by flow cytometry only on original bone marrow aspirate. The clonal cells were lambda light chain restricted. -Has polyneuropathy. Previous MAG antibody testing negative. No progression. -Flow cytometry on the aspirate from 01/08/2023 demonstrated no immunophenotypic evidence of a lymphoproliferative disorder. 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 -No clinical consequence as of now. Plan: - continue to monitor (E83.19) Iron overload Assessment: -Reviewed again today, 02/24/2025 -Declined iron chelation. -Hepatocellular enzymes have increased but remain stable. -Increase in diffuse hepatic densities on CT scan from 02/10/2025 -Per previous OV with Dr. Akers on 12/16/2024 We again discussed the rationale for iron chelation therapy. He again expressed his desire for quality of life over quantity of life and understands that iron overload may lead to mortality. 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 -symptoms may be in part related to overload. Plan: -Will continue monitoring hepatocellular enzymes. -Ferritin is pending today (M54.50, G89.29) Chronic midline low back pain without sciatica, stable Assessment: -He continues to use tramadol regularly and it helps the pain enough that he can do some light house work and get out of the house. -Opiate agreement form signed with Dr Akers -PDMP checked. 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 He has trouble falling asleep and staying asleep mainly due to restlessness. Was started on trial of low-dose olanzapine and titrating up if tolerates low-dose well and does not significantly alleviate insomnia. Plan: -continue olanzapine 2.5 mg at at bedtime. Domenica Garcia APRN.AERIAL ERECTOR I spent a total of 40 minutes on the date of the service which included preparing to see the patient, [id number] patient care, completing clinical documentation, obtaining and/or reviewing separately obtained history, counseling and educating the patient/family/caregiver, and ordering medications, tests, or procedures. Portions of this note including HPI, ROS, impression/plan may have been copied forward as to provide important historical information essential in contributing to medical decision making. Documentation has been reviewed and edited as necessary to support clinical decision making for today's visit and to reflect my own independent evaluation of this patient. documented in this encounter [facility] 02-11-2025 Telephone encounter Note Patient was in [facility] ED 02/10/2025, Hgb 7.1. Patient's Mycharted a message requesting a blood transfusion for today at [facility]. Patient scheduled for 2 units PRBC at [facility] today per their request. Order faxed. Margot Cox LPN [facility] 02-11-2025 Miscellaneous Notes Patient was in [facility] ED 02/10/2025, Hgb 7.1. Patient's Mycharted a message requesting a blood transfusion for today at [facility]. Patient scheduled for 2 units PRBC at [facility] today per their request. Order faxed. Margot Cox LPN documented in this encounter [facility] 01-28-2025 Telephone encounter Note Singulair was ordered. [facility] 01-28-2025 Miscellaneous Notes Singulair was ordered. documented in this encounter [facility] 01-28-2025 Telephone encounter Note Prescription Refill Information The patient has been identified by name and date of : Yes Caregiver verified no other encounters exist for this prescription request: Yes Caregiver confirmed with patient/requestor that no other refills are due, in the near future, with this provider at this time: Yes The last office visit in the department: 12/16/2024 Does the patient have a future office visit with this provider/department: Yes Requested Prescriptions Pending Prescriptions Disp Refills folic acid 1 mg tablet [Pharmacy Med Name: Folic Acid 1 MG Oral Tablet] 90 tablet 0 Sig: Take 1 tablet by mouth once daily Domonique Lara LPN January 28, 2025 8:09 AM [facility] 01-28-2025 Miscellaneous Notes Prescription Refill Information The patient has been identified by name and date of : Yes Caregiver verified no other encounters exist for this prescription request: Yes Caregiver confirmed with patient/requestor that no other refills are due, in the near future, with this provider at this time: Yes The last office visit in the department: 12/16/2024 Does the patient have a future office visit with this provider/department: Yes Requested Prescriptions Pending Prescriptions Disp Refills folic acid 1 mg tablet [Pharmacy Med Name: Folic Acid 1 MG Oral Tablet] 90 tablet 0 Sig: Take 1 tablet by mouth once daily Domonique Lara LPN January 28, 2025 8:09 AM documented in this encounter [facility] 01-27-2025 Telephone encounter Note Pt. Scheduled for transfusion 2 units packed cells@ [facility] 01/28 @ 8 am. Pt and lab notified, orders faxed. Domonique Lara LPN [facility] 01-27-2025 Miscellaneous Notes Pt. Scheduled for transfusion 2 units packed cells@ [facility] 01/28 @ 8 am. Pt and lab notified, orders faxed. Domonique Lara LPN documented in this encounter [facility] 01-27-2025 Instructions Gladys Da Silva APRN.AERIAL ERECTOR - 01/27/2025 12:19 PM EDT 1) Switch Zyprexa to citalopram 10 mg at bedtime 2) Will check thyroid with next Dr. Akers labs 3) Consider Milk of Magnesia or warm prune juice for constipation 4) Check urinalysis 5) follow up in 6 months documented in this encounter [facility] 01-27-2025 Note [facility] 01-27-2025 History of Present illness Narrative This is a 79 year old male who presents today with: Patient presents with: 6 Month Exam HISTORY OF PRESENT ILLNESS: Loreta Hurst is a 79 year old male. Patient presents with: 6 Month Exam Palliative doing assessment next week Having some pain and tramadol not helping Zyprexa causing unsteady gait and foggy mind PAST MEDICAL HISTORY: PAST MEDICAL HISTORY Diagnosis Date Anemia Asthma Benign neoplasm of colon Benign neoplasm of rectum and anal canal Benign prostatic hyperplasia with nocturia Early satiety 09/14/2021 Heartburn Macrocytic anemia 01/29/2024 MDS (myelodysplastic syndrome) (HCC) Neutropenia (HCC) Seasonal allergies Snoring Urinary hesitancy 09/14/2021 Urinary retention 09/14/2021 PAST SURGICAL HISTORY Procedure Laterality Date ARTHROSCOPY KNEE DIAGNOSTIC W/WO SYNOVIAL BX SPX 2004? Arthroscopy, right knee AXILLARY LYMPHADENECTOMY Left 1997 No BP or IV to left upper extremity COLONOSCOPY FLX DX W/COLLJ SPEC WHEN PFRMD 2002 Colonoscopy COLONOSCOPY FLX DX W/COLLJ SPEC WHEN PFRMD 05/01/2012 Colonoscopy COLONOSCOPY FLX DX W/COLLJ SPEC WHEN PFRMD 04/30/2017 Colonoscopy ESOPHAGOGASTRODUODENOSCOPY TRANSORAL DIAGNOSTIC 04/30/2017 EGD LAP UMBILICAL HERNIA REPAIR 1998 PAST SURGICAL HISTORY OF 1997 Lymphnodes & fatty tumor removed left axilla PAST SURGICAL HISTORY OF 1996 Fatty tumors removed from chest & abdomen PET IMAGING CT ATTENUATION SKULL BASE MID-THIGH 03/27/2022 03/27/2022 whole-body PET scan skull to mid thigh: Negative exam, no scintigraphic evidence of viable neoplasm/metastasis. PROSTATE BIOPSY 1997 VASECTOMY UNI/BI SPX W/POSTOP SEMEN EXAMS 1998 ALLERGIES Levaquin [Levofloxacin], Remeron [Mirtazapine], Advair Diskus [Fluticasone Propion-Salmeterol], Bactrim [Sulfamethoxazole], Paxil [Paroxetine Hcl], and Tamsulosin MEDICATIONS Current Outpatient Medications Medication Sig omeprazole (PRILOSEC) 20 mg capsule Take 2 capsules by mouth once daily. busPIRone (BUSPAR) 5 mg tablet Take 1 tablet by mouth three times a day. traMADol (ULTRAM) 50 mg tablet Take 1 tablet by mouth every 8 hours as needed for pain for up to 30 days. doxazosin (CARDURA) 4 mg tablet TAKE 1 TABLET BY MOUTH ONCE DAILY AT BEDTIME OLANZapine (ZYPREXA) 2.5 mg tablet Take 1 tablet by mouth daily at bedtime. folic acid 1 mg tablet Take 1 tablet by mouth once daily Tadalafil (CIALIS) 2.5 mg tablet Take 1 tablet by mouth once daily. levothyroxine (LEVOXYL) 25 mcg tablet Take 1 tablet by mouth once daily. Take on empty stomach. For Thyroid TURMERIC ORAL Take 1 tablet by mouth once daily. ondansetron orally disintegrating (ZOFRAN ODT) 4 mg disintegrating tablet Take 1 tablet by mouth every 8 hours as needed for nausea/vomiting. DISSOLVE 1 TABLET IN MOUTH EVERY 8 HOURS NEEDED FOR NAUSEA AND VOMITING montelukast (SINGULAIR) 10 mg tablet Take 1 tablet by mouth daily at bedtime. Melatonin 5 mg cap Take 1 capsule by mouth daily at bedtime. polyethylene glycol 3350 (MIRALAX ORAL) Take by mouth once daily as needed. potassium chloride ER (KLOR-CON) 20 mEq tablet Take 1 tablet by mouth once daily. COPPER ORAL Take 1 tablet by mouth once daily. QUERCETIN ORAL Take 1 tablet by mouth once daily. furosemide (LASIX) 40 mg tablet Take 1 tablet by mouth as needed. Calcium Citrate 250 mg calcium tab Take 1 tablet by mouth once daily. losartan (COZAAR) 25 mg tablet Take 1 tablet by mouth once daily. albuterol HFA (VENTOLIN HFA) 90 mcg/actuation inhaler Inhale 2 Puffs as instructed every 4 hours as needed for wheezing/shortness of breath. cholecalciferol (VITAMIN D-3) 5,000 unit tab Take 1 tablet by mouth once daily. pyridoxine, vitamin B6, (VITAMIN B6) 100 mg tablet Take 100 mg by mouth once daily. acetaminophen (TYLENOL) 500 mg tablet Take 1,000 mg by mouth as needed. Lactobacillus acidophilus (PROBIOTIC ORAL) Take 1 capsule by mouth once daily. Takes 30 Billion cell capsule (Patient not taking: Reported on 10/13/2024) deferasirox (EXJADE) 500 mg disintegrating tablet Take 3 tablets by mouth once daily. Take on an empty stomach at least 30 minutes before food, preferably at the same time each day. Completely disperse tablets by stirring in at least 7 oz. water, orange juice, or apple juice until a fine suspension is obtained (Patient not taking: Reported on 07/20/2024) COMPOUNDED PRESCRIPTION Compression stockings 30-40mmHg 2 pairs Stasis edema of both lower extremities (primary encounter diagnosis) No current facility-administered medications for this visit. FAMILY HISTORY Problem Relation Age of Onset Diabetes Mother Heart Mother Hypertension Mother None Father Colon Cancer Sister other (uterine cancer) Sister other (blood disorder) Sister Breast Cancer Daughter Social History Tobacco Use Smoking status: Former Current packs/day: 0.00 Average packs/day: 0.8 packs/day for 16.0 years (12.8 ttl pk-yrs) Types: Cigarettes Start date: 11/09/1961 Quit date: 11/09/1977 Years since quittin.2 Smokeless tobacco: Never Tobacco comments: Smoked from age [age]. Vaping Use Vaping status: Never Used Substance Use Topics Alcohol use: Not Currently Drug use: Never REVIEW OF SYSTEMS GENERAL: No weight loss- a little gain, + malaise, no fevers/chills HEENT: Negative for frequent or significant headaches, No changes in hearing or vision. NECK: Negative for lumps, goiter, pain and significant neck swelling RESPIRATORY: Negative for cough, hemoptysis, wheezing, dyspnea or shortness of breath (only when needing transfusion) CARDIOVASCULAR: Negative for chest pain,no leg swelling (wears compression hose), + orthopnea, + PND in bed, + palpitations GI: No nausea, vomiting, or diarrhea/ + constipation- miralax helps. No hematochezia/melena. No heartburn or reflux symptoms. : No history of dysuria, frequency or incontinence- urgency MUSCULOSKELETAL: Hips and lower back joint pain or swelling. Tramadol not effective SKIN: Negative for lesions, rash, and itching ENDOCRINE: Negative for cold or heat intolerance, polyuria, polydipsia and goiter NEURO: No history of headaches, syncope, paralysis, seizures or tremors MOOD: Negative for depression, anxiety, or suicidal ideation. EXAM: BP 136/54 Pulse 72 Temp 36.5 C (97.7 F) (Right Tympanic) Wt 83 kg (183 lb) SpO2 94% BMI 27.74 kg/m PHYSICAL EXAM: Physical Exam Vitals reviewed. Constitutional: Appearance: Normal appearance. HENT: Head: Normocephalic. Cardiovascular: Rate and Rhythm: Normal rate and regular rhythm. Pulses: Normal pulses. Heart sounds: Normal heart sounds. Comments: LYNN heard throughout heart ariza, dim at apex Pulmonary: Effort: Pulmonary effort is normal. Breath sounds: Normal breath sounds. Abdominal: General: Bowel sounds are normal. There is distension. Palpations: Abdomen is soft. Tenderness: There is no abdominal tenderness. There is no guarding or rebound. Musculoskeletal: Comments: Moves all ext., generalized weakness, walks w/ a cane No edema but wears compression stockings Skin: General: Skin is warm and dry. Neurological: Mental Status: He is alert and oriented to person, place, and time. Psychiatric: Comments: Flat affect LABS: TSH with next labs ASSESSMENT/PLAN: 1. Hypokalemia - ICD9: 276.8, ICD10: E87.6 (primary diagnosis) Stable on potassium when lasix is needed - POTASSIUM CHLORIDE ER 20 MEQ TABLET,EXTENDED RELEASE(PART/CRYST) 2. Anxiety with depression - ICD9: 300.4, ICD10: F41.8 Switch from Zyprexa to citalopram d/t side effects - CITALOPRAM 10 MG TABLET 3. Urgency of urination - ICD9: 788.63, ICD10: R39.15 Check labs - URINALYSIS (WITH MICROSCOPIC) WITH CULTURE IF INDICATED 4. MDS (myelodysplastic syndrome), low grade (HCC) - ICD9: 238.72, ICD10: D46.Z Followed by Dr. Akers 5. BPH with obstruction/lower urinary tract symptoms - ICD9: 600.01, 599.69, ICD10: N40.1, N13.8 Check for UTI with urgency 6. Diastolic dysfunction - ICD9: 429.9, ICD10: I51.89 Ongoing 7. Chronic fatigue - ICD9: 780.79, ICD10: R53.82 Check TSH with next lab draw Discussed treatment plan and patient voices understanding. Patient's questions answered appropriately. Medications and potential side effects were discussed and patient voices understanding. Return to the office as scheduled or as needed for worsening/no improvement. Gladys Da Silva APRN.CNP documented in this encounter [facility] 01-24-2025 Telephone encounter Note The following approved medication requests have been transmitted electronically. Requested Prescriptions Pending Prescriptions Disp Refills omeprazole (PRILOSEC) 20 mg capsule 180 capsule 1 Sig: Take 2 capsules by mouth once daily. Gladys Da Silva APRN.CNP [facility] 01-24-2025 Miscellaneous Notes The following approved medication requests have been transmitted electronically. Requested Prescriptions Pending Prescriptions Disp Refills omeprazole (PRILOSEC) 20 mg capsule 180 capsule 1 Sig: Take 2 capsules by mouth once daily. Gladys Da Silva APRN.CNP Prescription Refill Information The patient has been identified by name and date of : Yes Caregiver verified no other encounters exist for this prescription request: Yes Caregiver confirmed with patient/requestor that no other refills are due, in the near future, with this provider at this time: Yes The last office visit in the department: 07/20/2024 Does the patient have a future office visit with this provider/department: Yes Requested Prescriptions Pending Prescriptions Disp Refills omeprazole (PRILOSEC) 20 mg capsule 180 capsule 1 Sig: Take 2 capsules by mouth once daily. Gladys Gonsalez LPN January 24, 2025 9:55 AM documented in this encounter [facility] 01-24-2025 Telephone encounter Note Prescription Refill Information The patient has been identified by name and date of : Yes Caregiver verified no other encounters exist for this prescription request: Yes Caregiver confirmed with patient/requestor that no other refills are due, in the near future, with this provider at this time: Yes The last office visit in the department: 07/20/2024 Does the patient have a future office visit with this provider/department: Yes Requested Prescriptions Pending Prescriptions Disp Refills omeprazole (PRILOSEC) 20 mg capsule 180 capsule 1 Sig: Take 2 capsules by mouth once daily. Gladys Gonsalez LPN January 24, 2025 9:55 AM [facility] 01-13-2025 Telephone encounter Note Pt. Scheduled for transfusion 2 units packed cells at [facility] 3/6@ 8 am. Pt.and lab notified, orders faxed. Domonique Lara LPN [facility] 01-13-2025 Miscellaneous Notes Pt. Scheduled for transfusion 2 units packed cells at [facility] 3/6@ 8 am. Pt.and lab notified, orders faxed. Domonique Lara LPN documented in this encounter [facility] 01-06-2025 Telephone encounter Note The following approved medication requests have been transmitted electronically. Requested Prescriptions Pending Prescriptions Disp Refills busPIRone (BUSPAR) 5 mg tablet 90 tablet 2 Sig: Take 1 tablet by mouth three times a day. Gladys Da Silva APRN.CNP [facility] 01-06-2025 Miscellaneous Notes The following approved medication requests have been transmitted electronically. Requested Prescriptions Pending Prescriptions Disp Refills busPIRone (BUSPAR) 5 mg tablet 90 tablet 2 Sig: Take 1 tablet by mouth three times a day. Gladys Da Silva APRN.CNP Prescription Refill Information The patient has been identified by name and date of : Yes Caregiver verified no other encounters exist for this prescription request: Yes Caregiver confirmed with patient/requestor that no other refills are due, in the near future, with this provider at this time: Yes The last office visit in the department: 07/20/24 Does the patient have a future office visit with this provider/department: Yes, 01/18/25 Requested Prescriptions Pending Prescriptions Disp Refills busPIRone (BUSPAR) 5 mg tablet 90 tablet 2 Sig: Take 1 tablet by mouth three times a day. Ashwin Montenegro LPN January 05, 2025 2:25 PM documented in this encounter [facility] 01-05-2025 Telephone encounter Note Prescription Refill Information The patient has been identified by name and date of : Yes Caregiver verified no other encounters exist for this prescription request: Yes Caregiver confirmed with patient/requestor that no other refills are due, in the near future, with this provider at this time: Yes The last office visit in the department: 07/20/24 Does the patient have a future office visit with this provider/department: Yes, 01/18/25 Requested Prescriptions Pending Prescriptions Disp Refills busPIRone (BUSPAR) 5 mg tablet 90 tablet 2 Sig: Take 1 tablet by mouth three times a day. Ashwin Montenegro LPN January 05, 2025 2:25 PM [facility] 12-29-2024 Telephone encounter Note Patient scheduled for transfusion of 2 units of PRBC to be given at [facility] on Friday12/31/24 (per pt choice) at 0800. Orders faxed, patient notified. Sara Milian LPN [facility] 12-29-2024 Miscellaneous Notes Patient scheduled for transfusion of 2 units of PRBC to be given at [facility] on Friday12/31/24 (per pt choice) at 0800. Orders faxed, patient notified. Sara Milian LPN documented in this encounter [facility] 12-29-2024 Telephone encounter Note Noted. Margot Cox LPN [facility] 12-29-2024 Miscellaneous Notes Noted. Margot Cox LPN Spouse called and rescheduled cbc ?tx from tomorrow to today due to possible weather on . She stated if patient does need transfusion, they would still like it scheduled for Friday. documented in this encounter [facility] 12-29-2024 Telephone encounter Note Spouse called and rescheduled cbc ?tx from tomorrow to today due to possible weather on . She stated if patient does need transfusion, they would still like it scheduled for Friday. [facility] Work Phone: 12-21-2024 Miscellaneous Notes Sent patient a my chart message to schedule an appointment to be seen for refills. LOS 03/18/2023 with DIAZ Malave none scheduled Pended short term supply until patient schedules an appointment. Please review and sign if appropriate. Thank you. Patient requesting refills as follows: Requested Prescriptions Pending Prescriptions Disp Refills doxazosin (CARDURA) 4 mg tablet [Pharmacy Med Name: Doxazosin Mesylate 4 MG Oral Tablet] 30 tablet 0 Sig: TAKE 1 TABLET BY MOUTH ONCE DAILY AT BEDTIME Please review and advise. Joselyn Montez RN documented in this encounter [facility] 12-21-2024 Telephone encounter Note Sent patient a my chart message to schedule an appointment to be seen for refills. LOS 03/18/2023 with DIAZ Malave none scheduled Pended short term supply until patient schedules an appointment. Please review and sign if appropriate. Thank you. Patient requesting refills as follows: Requested Prescriptions Pending Prescriptions Disp Refills doxazosin (CARDURA) 4 mg tablet [Pharmacy Med Name: Doxazosin Mesylate 4 MG Oral Tablet] 30 tablet 0 Sig: TAKE 1 TABLET BY MOUTH ONCE DAILY AT BEDTIME Please review and advise. Joselyn Montez RN [facility] 12-16-2024 Telephone encounter Note Patient scheduled for 2 units PRBC's 12/17/2024 @ 0830, [facility]. Orders faxed. Patient and lab aware. Margot Cox LPN [facility] 12-16-2024 Miscellaneous Notes Patient scheduled for 2 units PRBC's 12/17/2024 @ 0830, [facility]. Orders faxed. Patient and lab aware. Margot Cox LPN documented in this encounter [facility] 12-16-2024 Note [facility] 12-16-2024 History of Present illness Narrative Diagnoses: 1) 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 Transfusion dependent. 5) Sensory neuropathy. HPI: The patient is an 79 yo male who had an unremarkable PMH. Evaluated 06/29/2015 for c/o sore throat, malaise and low grade fever that had been going on for about 2 weeks. Was found to have macrocytic anemia and elevated serum iron and ferritin. Stool hemoccult negative. MDS and low burden lymphoplasmacytic lymphoma. Transferred care to [facility] early 2021. Was treated with Inqovi 04/2022 for about a week, but developed pancytopenia and neutropenic fever requiring hospitalization and transfusional support. However, he didn't require RBC transfusion for several months. Current therapy: 1) Low dose decitabine. Presents for ongoing oncologic management. Interim history: Back pain still limits walking. Tramadol helps significantly. With consistent use, able to get outside on occasion--fills bird feeders--he enjoys that. Remains very fatigued and continues to feel much better after transfusion. Neuropathy--Improved in feet, I don't notice so much anymore. PMH, medications and allergies as below personally reviewed by me today. Any changes documented in appropriate section. ROS: Constitutional: No episode of fever, shaking chill and night sweats. Appetite is normal. Neuro: Denies vertigo. HEENT: No recent change in voice, vision. Resp: Denies cough, wheeze and hemoptysis. CVS: See above. GI: No dysphagia or odynophagia. No nausea or vomiting. Bowels are moving normally. Endo: No hot flashes. Musculoskeletal: Chronic LBP. Derm: No rash. Heme: No unusual bleeding or bruising. Psych: Normal mood. PHYSICAL EXAM: Vitals: Blood pressure 139/73, pulse 68, temperature 36.6 C (97.8 F), resp. rate 12, weight 82.1 kg (181 lb), SpO2 97%. Fatigued-appearing and in no acute distress. EYES: Sclerae are anicteric bilaterally. LYMPHATIC: There is no palpable cervical or supraclavicular adenopathy. CARDIOVASCULAR: Rhythm is regular. Mild systolic murmur. ABDOMEN: The abdomen is mildly distended. SKIN: No jaundice. LABS: PATHOLOGY: Bone marrow biopsy 01/08/2023: A-C. Bone marrow, biopsy core, aspirate clot, touch imprint and aspirate smear: - Myelodysplastic syndrome with low blast count and ring sideroblasts. - See comment. D. Peripheral blood smear: - Myelodysplastic syndrome. - See comment. The patient has a history of myelodysplastic syndrome and of monoclonal B cell population associated with an M protein characterized as IgM kappa. The findings in this case consist of pancytopenia associated with a slightly hypercellular bone marrow with numerous ring sideroblasts and hypogranular neutrophils. Flow cytometric immunophenotypic analysis performed on this specimen identified no evidence of an abnormal population. In conclusion, the findings in this case indicate the persistence of the previously diagnosed myelodysplastic syndrome (MDS). Adequate classification requires additional molecular and cytogenetic data, but the differential diagnosis includes MDS with mutated SF3B1 or MDS with multilineage dysplasia in the ICC 2021 classification or, in the WHO 2021 classification MDS with low blasts and SF3B1 mutation or MDS with low blasts. There is no definitive evidence of a low grade lymphoproliferative disorder or of a plasma cell neoplasm. Correlation with molecular and conventional cytogenetic findings is necessary. DIAGNOSIS: 46,XY[20] ASSESSMENT/PLAN: (D46.20) MDS (myelodysplastic syndrome), low grade (HCC) (D53.9) Macrocytic anemia Assessment: -RARS. MDS-SF3B1. -IPSS=0 Low risk. -IPSS-R=2 Low risk. 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 -No significant amount of lymphoplasmacytic lymphoma identified on bone marrow biopsy 01/2023. -Initially he seemed to respond well to Luspatercept. However lost response. -No decrease in RBC transfusion requirements with nearly 7 months of low dose decitabine. We decided to stop and continue supportive care. Plan: -Every 2 week CBC/possible transfusion. 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 -Had CD5 negative low-grade lymphoproliferative disorder identified by flow cytometry only on original bone marrow aspirate. The clonal cells were lambda light chain restricted. -Has polyneuropathy. Previous MAG antibody testing negative. No progression. -Flow cytometry on the aspirate from 01/08/2023 demonstrated no immunophenotypic evidence of a lymphoproliferative disorder. 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 -No clinical consequence as of now. Plan: -Rechecking today. (E83.19) Iron overload Assessment: -Declined iron chelation. -Hepatocellular enzymes had been stable. Now starting to increase. -We again discussed the rationale for iron chelation therapy. He again expressed his desire for quality of life over quantity of life and understands that iron overload may lead to mortality. 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 Plan: -Will continue monitoring hepatocellular enzymes. -Stop checking ferritin. (M54.50, G89.29) Chronic midline low back pain without sciatica Assessment: -He continues to use tramadol regularly and it helps the pain enough that he can do some light house work and get out of the house. -Opiate agreement form signed today. -PDMP checked. Plan: -Appropriate for monthly refills. 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 He has trouble falling asleep and staying asleep mainly due to restlessness. I discussed a trial of low-dose olanzapine and titrating up if tolerates low-dose well and does not significantly alleviate insomnia. Plan: -Rx olanzapine 2.5 mg at at bedtime. Portions of this documentation were copied and pasted from my previous office visit note dated 10/13/2024 in order to provide a cohesive continuity of the history. The note has been reviewed and edited and updated as necessary. Steven Akers DO documented in this encounter [facility] 12-02-2024 Telephone encounter Note PDMP reviewed. Will be seeing him for office visit next month. Steven Akers DO [facility] 12-02-2024 Miscellaneous Notes PDMP reviewed. Will be seeing him for office visit next month. Steven Akers DO documented in this encounter [facility] 12-02-2024 Telephone encounter Note Pt. Scheduled for transfusion 2 units packed cells @ [facility] 12/03@8 am. Pt. And lab notified , orders faxed. Domonique Lara LPN [facility] 12-02-2024 Miscellaneous Notes Pt. Scheduled for transfusion 2 units packed cells @ [facility] 12/03@8 am. Pt. And lab notified , orders faxed. Domonique Lara LPN documented in this encounter [facility] 11-11-2024 Telephone encounter Note Patient scheduled for 2 units PRBC 11/12/2024 @ 0830, [facility]. Orders faxed. Patient and lab aware. Margot Cox LPN [facility] 11-11-2024 Miscellaneous Notes Patient scheduled for 2 units PRBC 11/12/2024 @ 0830, [facility]. Orders faxed. Patient and lab aware. Margot Cox LPN documented in this encounter [facility] 10-20-2024 Telephone encounter Note Patient scheduled for transfusion of 2 units of PRBC to be given at [facility] on 10/22/24 at 0900. Orders faxed, patient notified. Sara Milian LPN [facility] 10-20-2024 Miscellaneous Notes Patient scheduled for transfusion of 2 units of PRBC to be given at [facility] on 10/22/24 at 0900. Orders faxed, patient notified. Sara Milian LPN documented in this encounter [facility] 10-13-2024 Telephone encounter Note SOCIAL WORK FOLLOW UP NOTE: [facility] Date of service: October 13, 2024 Loreta Hurst is being seen for a follow up social work visit. Today's visit includes: spouse and patient TOPICS ADDRESSED: SW met with pt and his this date regarding assistance getting forms to financial navigation. Pt's presented pt's SS Award Letter, reporting she had spoken to a financial navigator who is applying them for medicare reimbursement shraddha. SW scanned and emailed forms to navigator this date. Forms sent to internal scanning as well. Pt and deny any other needs at this time, reporting they are doing well. PLAN: Assist with financial support applications and Continue follow up as needed F/U APPOINTMENT: PRN Assigned SW listed in Care Team tab: Yes MARIAJOSE Cason [facility] 10-13-2024 Miscellaneous Notes SOCIAL WORK FOLLOW UP NOTE: [facility] Date of service: October 13, 2024 Loreta Hurst is being seen for a follow up social work visit. Today's visit includes: spouse and patient TOPICS ADDRESSED: SW met with pt and his this date regarding assistance getting forms to financial navigation. Pt's presented pt's SS Award Letter, reporting she had spoken to a financial navigator who is applying them for medicare reimbursement shraddha. SW scanned and emailed forms to navigator this date. Forms sent to internal scanning as well. Pt and deny any other needs at this time, reporting they are doing well. PLAN: Assist with financial support applications and Continue follow up as needed F/U APPOINTMENT: PRN Assigned SW listed in Care Team tab: Yes MARIAJOSE Cason documented in this encounter [facility] 10-13-2024 Note [facility] 10-13-2024 History of Present illness Narrative Diagnoses: 1) 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 Transfusion dependent. 5) Sensory neuropathy. HPI: The patient is an 79 yo male who had an unremarkable PMH. Evaluated 06/29/2015 for c/o sore throat, malaise and low grade fever that had been going on for about 2 weeks. Was found to have macrocytic anemia and elevated serum iron and ferritin. Stool hemoccult negative. MDS and low burden lymphoplasmacytic lymphoma. Transferred care to [facility] early 2021. Was treated with Inqovi 04/2022 for about a week, but developed pancytopenia and neutropenic fever requiring hospitalization and transfusional support. However, he didn't require RBC transfusion for several months. Current therapy: 1) Low dose decitabine. Presents for ongoing oncologic management. Interim history: Back pain limits walking. Tramadol helps significantly. Able to get outside on occasion--fills bird feeders. Remains very fatigued. Fleels much better after transfusion. Trying turmeric as a natural chelator b/c he declined Neuropathy--stable. Compression stockings help. PMH, medications and allergies as below personally reviewed by me today. Any changes documented in appropriate section. ROS: Constitutional: No episode of fever, shaking chill and night sweats. Appetite is normal. Neuro: Denies vertigo. HEENT: No recent change in voice, vision. Resp: Denies cough, wheeze and hemoptysis. CVS: See above. GI: No dysphagia or odynophagia. No nausea or vomiting. Bowels are moving normally. Endo: No hot flashes. Musculoskeletal: Chronic LBP. Derm: No rash. Heme: No unusual bleeding or bruising. Psych: Normal mood. PHYSICAL EXAM: Vitals: Fatigued-appearing and in no acute distress. EYES: Sclerae are anicteric bilaterally. LYMPHATIC: There is no palpable cervical or supraclavicular adenopathy. CARDIOVASCULAR: Rhythm is regular. Mild systolic murmur. ABDOMEN: The abdomen is mildly distended. SKIN: No jaundice. LABS: PATHOLOGY: Bone marrow biopsy 01/08/2023: A-C. Bone marrow, biopsy core, aspirate clot, touch imprint and aspirate smear: - Myelodysplastic syndrome with low blast count and ring sideroblasts. - See comment. D. Peripheral blood smear: - Myelodysplastic syndrome. - See comment. The patient has a history of myelodysplastic syndrome and of monoclonal B cell population associated with an M protein characterized as IgM kappa. The findings in this case consist of pancytopenia associated with a slightly hypercellular bone marrow with numerous ring sideroblasts and hypogranular neutrophils. Flow cytometric immunophenotypic analysis performed on this specimen identified no evidence of an abnormal population. In conclusion, the findings in this case indicate the persistence of the previously diagnosed myelodysplastic syndrome (MDS). Adequate classification requires additional molecular and cytogenetic data, but the differential diagnosis includes MDS with mutated SF3B1 or MDS with multilineage dysplasia in the ICC 2021 classification or, in the WHO 2022 classification MDS with low blasts and SF3B1 mutation or MDS with low blasts. There is no definitive evidence of a low grade lymphoproliferative disorder or of a plasma cell neoplasm. Correlation with molecular and conventional cytogenetic findings is necessary. DIAGNOSIS: 46,XY[20] ASSESSMENT/PLAN: (D46.20) MDS (myelodysplastic syndrome), low grade (HCC) (D53.9) Macrocytic anemia Assessment: -RARS. MDS-SF3B1. -IPSS=0 Low risk. -IPSS-R=2 Low risk. 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 -No significant amount of lymphoplasmacytic lymphoma identified on bone marrow biopsy 01/2023. -Initially he seemed to respond well to Luspatercept. However lost response. -No decrease in RBC transfusion requirements with nearly 7 months of low dose decitabine. We decided to stop and continue supportive care. Plan: -Stop decitabine. -Every 2 week CBC/possible transfusion. 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 -Had CD5 negative low-grade lymphoproliferative disorder identified by flow cytometry only on original bone marrow aspirate. The clonal cells were lambda light chain restricted. -Has polyneuropathy. Previous MAG antibody testing negative. No progression. -Flow cytometry on the aspirate from 01/08/2023 demonstrated no immunophenotypic evidence of a lymphoproliferative disorder. 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 -No clinical consequence as of now. Plan: -Monitor every few months. (E83.19) Iron overload Assessment: -Declined iron chelation. -Hepatocellular enzymes had been stable. Now starting to increase. -Discussed with him and his I anticipate worsening liver disease due to iron overload may eventually lead to his . 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 Plan: -Will continue monitoring hepatocellular enzymes. -Stop checking ferritin. (M54.50, G89.29) Chronic midline low back pain without sciatica Assessment: -He continues to use tramadol regularly and it helps the pain enough that he can do some light house work and get out of the house. Plan: -Appropriate for monthly refills. Portions of this documentation were copied and pasted from my previous office visit note dated 07/28/2024 in order to provide a cohesive continuity of the history. The note has been reviewed and edited and updated as necessary. I spent a total of 30 minutes on the date of the service which included preparing to see the patient, [id number] patient care, completing clinical documentation, obtaining and/or reviewing separately obtained history, performing a medically appropriate examination, counseling and educating the patient/family/caregiver, ordering medications, tests, or procedures, communicating with other HCPs (not separately reported), and communicating results to the patient/family/caregiver. Steven Akers DO documented in this encounter [facility] 10-11-2024 Telephone encounter Note The following approved medication requests have been transmitted electronically. Requested Prescriptions Pending Prescriptions Disp Refills busPIRone (BUSPAR) 5 mg tablet 90 tablet 2 Sig: Take 1 tablet by mouth three times a day. Gladys Da Silva APRN.CNP [facility] 10-11-2024 Telephone encounter Note The following approved medication requests have been transmitted electronically. Requested Prescriptions Pending Prescriptions Disp Refills Tadalafil (CIALIS) 2.5 mg tablet 30 tablet 5 Sig: Take 1 tablet by mouth once daily. Gladys Da Silva APRN.CNP [facility] 10-11-2024 Miscellaneous Notes The following approved medication requests have been transmitted electronically. Requested Prescriptions Pending Prescriptions Disp Refills busPIRone (BUSPAR) 5 mg tablet 90 tablet 2 Sig: Take 1 tablet by mouth three times a day. Gladys Da Silva APRN.CNP Prescription Refill Information The patient has been identified by name and date of : Yes Caregiver verified no other encounters exist for this prescription request: Yes Caregiver confirmed with patient/requestor that no other refills are due, in the near future, with this provider at this time: Yes The last office visit in the department: 07/20/24 ([place]) Does the patient have a future office visit with this provider/department: Yes, 01/18/25 ([place]) Requested Prescriptions Pending Prescriptions Disp Refills busPIRone (BUSPAR) 5 mg tablet 90 tablet 2 Sig: Take 1 tablet by mouth three times a day. Ashwin Montenegro LPN October 11, 2024 9:33 AM documented in this encounter [facility] 10-11-2024 Miscellaneous Notes The following approved medication requests have been transmitted electronically. Requested Prescriptions Pending Prescriptions Disp Refills Tadalafil (CIALIS) 2.5 mg tablet 30 tablet 5 Sig: Take 1 tablet by mouth once daily. Gladys Da Silva APRN.CNP Prescription Refill Information The patient has been identified by name and date of : Yes Caregiver verified no other encounters exist for this prescription request: Yes Caregiver confirmed with patient/requestor that no other refills are due, in the near future, with this provider at this time: Yes The last office visit in the department: 07/20/24 ([place]) Does the patient have a future office visit with this provider/department: Yes, 01/18/25 ([place]) Requested Prescriptions Pending Prescriptions Disp Refills Tadalafil (CIALIS) 2.5 mg tablet 30 tablet 5 Sig: Take 1 tablet by mouth once daily. Ashwin Montenegro LPN October 11, 2024 9:40 AM documented in this encounter [facility] 10-11-2024 Telephone encounter Note Prescription Refill Information The patient has been identified by name and date of : Yes Caregiver verified no other encounters exist for this prescription request: Yes Caregiver confirmed with patient/requestor that no other refills are due, in the near future, with this provider at this time: Yes The last office visit in the department: 07/20/24 ([place]) Does the patient have a future office visit with this provider/department: Yes, 01/18/25 ([place]) Requested Prescriptions Pending Prescriptions Disp Refills Tadalafil (CIALIS) 2.5 mg tablet 30 tablet 5 Sig: Take 1 tablet by mouth once daily. Ashwin Montenegro LPN October 11, 2024 9:40 AM [facility] 10-11-2024 Telephone encounter Note Prescription Refill Information The patient has been identified by name and date of : Yes Caregiver verified no other encounters exist for this prescription request: Yes Caregiver confirmed with patient/requestor that no other refills are due, in the near future, with this provider at this time: Yes The last office visit in the department: 07/20/24 ([place]) Does the patient have a future office visit with this provider/department: Yes, 01/18/25 (JS) Requested Prescriptions Pending Prescriptions Disp Refills busPIRone (BUSPAR) 5 mg tablet 90 tablet 2 Sig: Take 1 tablet by mouth three times a day. Ashwin Montenegro LPN October 11, 2024 9:33 AM [facility] 09-30-2024 Telephone encounter Note Patient scheduled for transfusion of 2 units of PRBC to be given at [facility] on 10/01/24 at 0830. Orders faxed, patient notified. Sara Milian LPN [facility] 09-30-2024 Miscellaneous Notes Patient scheduled for transfusion of 2 units of PRBC to be given at [facility] on 10/01/24 at 0830. Orders faxed, patient notified. Sara Milian LPN documented in this encounter [facility] 09-30-2024 Telephone encounter Note SOCIAL WORK FOLLOW UP NOTE: [facility] Date of service: September 30, 2024 Loreta Hurst is being seen for a follow up social work visit. Today's visit includes: spouse and patient TOPICS ADDRESSED: KAY met with pt's this date. She reports financial navigator had assisted them in obtaining a shraddha from [employer] and had paid claims for them of $4100 previously. Pt's states there is approximately $5900 left in the shraddha which expires mid-October of 2024 and is inquiring if any of this amount can be used. KAY sent an email to the [employer] email as site navigator is no longer with the clinic. KAY inquired about utilizing the shraddha for any possible claims prior to it expiring and also let navigators know that pt's would lie to be re-applied for the shraddha for assistance in 2024 as soon as able. KAY updated pt's on information sent this date. No other needs identified at this time. PLAN: Assist with financial support applications and Continue follow up as needed F/U APPOINTMENT: PRN Assigned KAY listed in Care Team tab: Yes MARIAJOSE Cason [facility] 09-30-2024 Miscellaneous Notes SOCIAL WORK FOLLOW UP NOTE: [facility] Date of service: September 30, 2024 Loreta Hurst is being seen for a follow up social work visit. Today's visit includes: spouse and patient TOPICS ADDRESSED: SW met with pt's this date. She reports financial navigator had assisted them in obtaining a shraddha from [employer] and had paid claims for them of $4100 previously. Pt's states there is approximately $5900 left in the shraddha which expires mid-October of 2024 and is inquiring if any of this amount can be used. KAY sent an email to the [facility] Navigators email as site navigator is no longer with the clinic. KAY inquired about utilizing the shraddha for any possible claims prior to it expiring and also let navigators know that pt's would lie to be re-applied for the shraddha for assistance in 2024 as soon as able. SW updated pt's on information sent this date. No other needs identified at this time. PLAN: Assist with financial support applications and Continue follow up as needed F/U APPOINTMENT: PRN Assigned KAY listed in Care Team tab: Yes MARIAJOSE Cason documented in this encounter [facility] 09-27-2024 Telephone encounter Note Referral faxed to [facility] as requested. Margot Cox LPN [facility] 09-27-2024 Miscellaneous Notes Referral faxed to [facility] as requested. Margot Cox LPN Jo-Ann from [facility] called stating patient has reached out to them for palliative care. She is requesting records/referral be faxed to [phone] documented in this encounter [facility] 09-27-2024 Telephone encounter Note Jo-Ann from [facility] called stating patient has reached out to them for palliative care. She is requesting records/referral be faxed to [phone] [facility] Work Phone: 09-23-2024 Telephone encounter Note Pt. Scheduled for transfusion @ [facility] 09/24 , 8:30 am Pt. And lab notified, orders faxed. Domonique Lara LPN [facility] 09-23-2024 Miscellaneous Notes Pt. Scheduled for transfusion @ [facility] 09/24 , 8:30 am Pt. And lab notified, orders faxed. Domonique Lara LPN documented in this encounter [facility] 09-23-2024 Note [facility] 09-23-2024 History of Present illness Narrative Notified MD of Low Hgb/Hct, orders written for transfusion. Patient and will be notified of the time of transfusion, patient aware to leave transfusion band on. documented in this encounter [facility] 09-09-2024 Telephone encounter Note Pt. Scheduled for transfusion 2 units packed cells @ [facility] 09/10/2024. Pt. And lab notified, orders faxed, Domonique Lara LPN' [facility] 09-09-2024 Miscellaneous Notes Pt. Scheduled for transfusion 2 units packed cells @ [facility] 09/10/2024. Pt. And lab notified, orders faxed, Domonique Lara LPN' documented in this encounter [facility] 09-03-2024 Telephone encounter Note Updated next tx note. Sara Milian LPN [facility] 09-03-2024 Miscellaneous Notes Updated next tx note. Sara Milian LPN Rx sent. He will have to sign an pain management/opiate agreement contract next time he is here. Steven Akers DO documented in this encounter [facility] 09-02-2024 Telephone encounter Note Rx sent. He will have to sign an pain management/opiate agreement contract next time he is here. Steven Akers DO [facility] 08-26-2024 Telephone encounter Note Pt. Scheduled for transfusion 2 units pasked cells @ [facility] 08/27/24 @ 8:30 am , pt. And lab notified, orders faxed. Domonique Lara LPN [facility] 08-26-2024 Miscellaneous Notes Pt. Scheduled for transfusion 2 units pasked cells @ [facility] 08/27/24 @ 8:30 am , pt. And lab notified, orders faxed. Domonique Lara LPN documented in this encounter [facility] 08-05-2024 Telephone encounter Note Pt. Scheduled for transfusion 2 units packed cells @ [facility] 08/06@ 8 am. Pt. And lab notified orders faxed. Domonique Lara LPN [facility] 08-05-2024 Miscellaneous Notes Pt. Scheduled for transfusion 2 units packed cells @ [facility] 08/06@ 8 am. Pt. And lab notified orders faxed. Domonique Lara LPN documented in this encounter [facility] 08-05-2024 History of Present illness Narrative Hgb 8.1. Dr. Akers ordered to have transfusion at [facility]. Pt and aware. Staff to call pt to set up. Lorenza Bhakta RN documented in this encounter [facility] 07-30-2024 Telephone encounter Note Prescription Refill Information The patient has been identified by name and date of : Yes Caregiver verified no other encounters exist for this prescription request: Yes Caregiver confirmed with patient/requestor that no other refills are due, in the near future, with this provider at this time: Yes The last office visit in the department: 07/28/2024 Does the patient have a future office visit with this provider/department: Yes Requested Prescriptions Pending Prescriptions Disp Refills folic acid 1 mg tablet [Pharmacy Med Name: Folic Acid 1 MG Oral Tablet] 90 tablet 0 Sig: Take 1 tablet by mouth once daily Domonique Lara LPN July 30, 2024 7:23 AM [facility] 07-30-2024 Miscellaneous Notes Prescription Refill Information The patient has been identified by name and date of : Yes Caregiver verified no other encounters exist for this prescription request: Yes Caregiver confirmed with patient/requestor that no other refills are due, in the near future, with this provider at this time: Yes The last office visit in the department: 07/28/2024 Does the patient have a future office visit with this provider/department: Yes Requested Prescriptions Pending Prescriptions Disp Refills folic acid 1 mg tablet [Pharmacy Med Name: Folic Acid 1 MG Oral Tablet] 90 tablet 0 Sig: Take 1 tablet by mouth once daily Domonique Lara LPN July 30, 2024 7:23 AM documented in this encounter [facility] 07-28-2024 History of Present illness Narrative Diagnoses: 1) 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 Transfusion dependent. 5) Sensory neuropathy. HPI: The patient is an 79 yo male who had an unremarkable PMH. Evaluated 06/29/2015 for c/o sore throat, malaise and low grade fever that had been going on for about 2 weeks. Was found to have macrocytic anemia and elevated serum iron and ferritin. Stool hemoccult negative. MDS and low burden lymphoplasmacytic lymphoma. Transferred care to [facility] early 2021. Was treated with Inqovi 04/2022 for about a week, but developed pancytopenia and neutropenic fever requiring hospitalization and transfusional support. However, he didn't require RBC transfusion for several months. Current therapy: 1) Low dose decitabine. Presents for ongoing oncologic management. Interim history: Back pain limits walking. Tramadol helps significantly. Very fatigued, but feels much better after transfusion. Opted not to take Exjade. Trying turmeric as a natural chelator. Neuropathy--if anything a little better. PMH, medications and allergies as below personally reviewed by me today. Any changes documented in appropriate section. ROS: Constitutional: No episode of fever, shaking chill and night sweats. Appetite is normal. Neuro: Denies vertigo and imbalance. HEENT: No recent change in voice, vision. Resp: Denies cough, wheeze and hemoptysis. CVS: See above. GI: No dysphagia or odynophagia. No nausea or vomiting. Bowels are working normally. Has occasional diarrhea. Endo: No hot flashes. Musculoskeletal: Denies bone, back, joint and muscular pain. Derm: No rash. Heme: No unusual bleeding or bruising. Psych: Normal mood. PHYSICAL EXAM: Vitals: Blood pressure 135/68, pulse 64, temperature 36.4 C (97.5 F), temperature source Temporal, weight 82.8 kg (182 lb 8 oz), SpO2 96%. Fatigued-appearing and in no acute distress. EYES: Sclerae are slightly icteric bilaterally. LYMPHATIC: There is no palpable cervical or supraclavicular adenopathy. RESPIRATORY: Inspiratory breath sounds are of normal intensity in all ariza. No rales, wheezes or rhonchi. CARDIOVASCULAR: Rhythm is regular. Mild systolic murmur. ABDOMEN: The abdomen is mildly distended. SKIN: No jaundice. LABS: Latest Ref Rn 07/28/2024 Protein, Total 6.3 - 8.0 g/dL 6.3 Albumin 3.9 - 4.9 g/dL 4.3 Calcium 8.5 - 10.2 mg/dL 9.6 Bilirubin, Total 0.2 - 1.3 mg/dL 1.4 (H) Alkaline Phosphatase 38 - 113 U/L 75 AST 14 - 40 U/L 39 ALT 10 - 54 U/L 60 (H) Glucose 74 - 99 mg/dL 116 (H) BUN 9 - 24 mg/dL 13 Creatinine 0.73 - 1.22 mg/dL 0.73 Sodium 136 - 144 mmol/L 138 Potassium 3.7 - 5.1 mmol/L 4.2 Chloride 98 - 107 mmol/L 103 CO2 22 - 30 mmol/L 26 Anion Gap 8 - 15 mmol/L 9 eGFR >=60 mL/min/1.73m 92 PATHOLOGY: Bone marrow biopsy 01/08/2023: A-C. Bone marrow, biopsy core, aspirate clot, touch imprint and aspirate smear: - Myelodysplastic syndrome with low blast count and ring sideroblasts. - See comment. D. Peripheral blood smear: - Myelodysplastic syndrome. - See comment. The patient has a history of myelodysplastic syndrome and of monoclonal B cell population associated with an M protein characterized as IgM kappa. The findings in this case consist of pancytopenia associated with a slightly hypercellular bone marrow with numerous ring sideroblasts and hypogranular neutrophils. Flow cytometric immunophenotypic analysis performed on this specimen identified no evidence of an abnormal population. In conclusion, the findings in this case indicate the persistence of the previously diagnosed myelodysplastic syndrome (MDS). Adequate classification requires additional molecular and cytogenetic data, but the differential diagnosis includes MDS with mutated SF3B1 or MDS with multilineage dysplasia in the ICC 2021 classification or, in the WHO 2 classification MDS with low blasts and SF3B1 mutation or MDS with low blasts. There is no definitive evidence of a low grade lymphoproliferative disorder or of a plasma cell neoplasm. Correlation with molecular and conventional cytogenetic findings is necessary. DIAGNOSIS: 46,XY[20] ASSESSMENT/PLAN: (D46.20) MDS (myelodysplastic syndrome), low grade (HCC) Assessment: -RARS. MDS-SF3B1. -IPSS=0 Low risk. -IPSS-R=2 Low risk. 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 -No significant amount of lymphoplasmacytic lymphoma identified on bone marrow biopsy 01/2023. -Initially he seemed to respond well to Luspatercept. However lost response. -Tramadol still helping chronic pain. -Declined iron chelation therapy. -Labs reviewed. Mild increase in hepatocellular enzymes and and total bilirubin. This has been been fluctuating. -Most recent ultrasound spleen demonstrated normal size. Plan: -Continue weekly decitabine. Okay for dose today. -Will discontinue if no improvement in frequency of transfusional support after 6 months of therapy. -Continue weekly CBC/possible transfusion. 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 -Had CD5 negative low-grade lymphoproliferative disorder identified by flow cytometry only on original bone marrow aspirate. The clonal cells were lambda light chain restricted. -Has polyneuropathy. Previous MAG antibody testing negative. No progression. -Flow cytometry on the aspirate from 01/08/2023 demonstrated no immunophenotypic evidence of a lymphoproliferative disorder. 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 -No clinical consequence as of now. Plan: -Monitor every 3 months. Portions of this documentation were copied and pasted from previous office visit notes in order to provide a cohesive continuity of the history. The note has been reviewed and edited and updated as necessary. I spent a total of 20 minutes on the date of the service which included preparing to see the patient, [id number] patient care, completing clinical documentation, obtaining and/or reviewing separately obtained history, performing a medically appropriate examination, counseling and educating the patient/family/caregiver, ordering medications, tests, or procedures, communicating with other HCPs (not separately reported), and communicating results to the patient/family/caregiver. Steven Akers DO documented in this encounter [facility] 07-27-2024 Telephone encounter Note returned call and given provider's message below with verbalized understanding. agreeable. [facility] 07-27-2024 Miscellaneous Notes returned call and given provider's message below with verbalized understanding. agreeable. Message left for pt to call back for results. Taylor Brothers MA Please let patient know that he has a very slight hypothyroidism. I am going to start levothyroxine 25 mcg to take daily 30 minutes before any other food or medication. We would recheck his TSH in 2 months. That is the week before Thanks. Hopefully that will help give him some more energy. B12 and magnesium were normal. Also, he is prediabetic. Watch the sweets and simple carbohydrates such as white flour products, white rice, and potatoes. Choose a whole-grain whenever possible. B12 and magnesium are normal. documented in this encounter [facility] 07-27-2024 Telephone encounter Note Message left for pt to call back for results. Taylor Brothers MA [facility] 07-27-2024 Telephone encounter Note Please let patient know that he has a very slight hypothyroidism. I am going to start levothyroxine 25 mcg to take daily 30 minutes before any other food or medication. We would recheck his TSH in 2 months. That is the week before Thanks. Hopefully that will help give him some more energy. B12 and magnesium were normal. Also, he is prediabetic. Watch the sweets and simple carbohydrates such as white flour products, white rice, and potatoes. Choose a whole-grain whenever possible. B12 and magnesium are normal. [facility] 07-22-2024 Telephone encounter Note Patient scheduled for 2 untis PRB 07/23/2024 @ 0830, [facility]. Orders faxed. Lab and patient aware. Margot Cox LPN [facility] 07-22-2024 Miscellaneous Notes Patient scheduled for 2 untis PRB 07/23/2024 @ 0830, [facility]. Orders faxed. Lab and patient aware. Margot Cox LPN documented in this encounter [facility] 07-20-2024 Instructions Gladys Da Silva APRN.CNP - 07/20/2024 11:45 AM EDT 1) Labs on 2) Buspirone 5 mg 3 x day for anxiety and depression 3) If you want to get Tetanus, shingles, and RSV vaccines- clear with Dr. Akers 4) Follow up in 6 months documented in this encounter [facility] 07-20-2024 History of Present illness Narrative This is a 79 year old male who presents today with: Patient presents with: 6 Month Exam HISTORY OF PRESENT ILLNESS: Loreta Hurst is a 79 year old male. Patient presents with: 6 Month Exam Recently had some pre-cancerous lesions removed from face- right cheek, Mirtazapine intolerance PAST MEDICAL HISTORY: PAST MEDICAL HISTORY No date: Anemia No date: Asthma No date: Benign neoplasm of colon No date: Benign neoplasm of rectum and anal canal No date: Benign prostatic hyperplasia with nocturia 09/14/2021: Early satiety No date: Heartburn 01/29/2024: Macrocytic anemia No date: MDS (myelodysplastic syndrome) (HCC) No date: Neutropenia (HCC) No date: Seasonal allergies No date: Snoring 09/14/2021: Urinary hesitancy 09/14/2021: Urinary retention PAST SURGICAL HISTORY 2004?: ARTHROSCOPY KNEE DIAGNOSTIC W/WO SYNOVIAL BX SPX Comment: Arthroscopy, right knee 1997: AXILLARY LYMPHADENECTOMY; Left Comment: No BP or IV to left upper extremity 2003: COLONOSCOPY FLX DX W/COLLJ SPEC WHEN PFRMD Comment: Colonoscopy 05/01/2012: COLONOSCOPY FLX DX W/COLLJ SPEC WHEN PFRMD Comment: Colonoscopy 04/30/2017: COLONOSCOPY FLX DX W/COLLJ SPEC WHEN PFRMD Comment: Colonoscopy 04/30/2017: ESOPHAGOGASTRODUODENOSCOPY TRANSORAL DIAGNOSTIC Comment: EGD 1997: LAP UMBILICAL HERNIA REPAIR 1997: PAST SURGICAL HISTORY OF Comment: Lymphnodes & fatty tumor removed left axilla 1996: PAST SURGICAL HISTORY OF Comment: Fatty tumors removed from chest & abdomen 03/27/2022: PET IMAGING CT ATTENUATION SKULL BASE MID-THIGH Comment: 03/27/2022 whole-body PET scan skull to mid thigh: Negative exam, no scintigraphic evidence of viable neoplasm/metastasis. 1998: PROSTATE BIOPSY 1999: VASECTOMY UNI/BI SPX W/POSTOP SEMEN EXAMS ALLERGIES Levaquin [Levofloxacin], Remeron [Mirtazapine], Advair Diskus [Fluticasone Propion-Salmeterol], Bactrim [Sulfamethoxazole], Paxil [Paroxetine Hcl], and Tamsulosin MEDICATIONS Current Outpatient Medications Medication Sig TURMERIC ORAL Take by mouth once daily. Tadalafil (CIALIS) 2.5 mg tablet Take 1 tablet by mouth once daily. traMADol (ULTRAM) 50 mg tablet Take 1 tablet by mouth every 8 hours as needed for pain for up to 30 days. ondansetron orally disintegrating (ZOFRAN ODT) 4 mg disintegrating tablet Take 1 tablet by mouth every 8 hours as needed for nausea/vomiting. DISSOLVE 1 TABLET IN MOUTH EVERY 8 HOURS NEEDED FOR NAUSEA AND VOMITING folic acid 1 mg tablet Take 1 tablet by mouth once daily Lactobacillus acidophilus (PROBIOTIC ORAL) Take 1 capsule by mouth once daily. Takes 30 Billion cell capsule omeprazole (PRILOSEC) 20 mg capsule Take 2 capsules by mouth once daily. montelukast (SINGULAIR) 10 mg tablet Take 1 tablet by mouth daily at bedtime. doxazosin (CARDURA) 4 mg tablet take 1 tablet by mouth once daily at bedtime Melatonin 5 mg cap Take 1 capsule by mouth daily at bedtime. polyethylene glycol 3350 (MIRALAX ORAL) Take by mouth once daily. Takes as needed potassium chloride ER (KLOR-CON) 20 mEq tablet Take 1 tablet by mouth once daily. (Patient taking differently: Take 20 mEq by mouth once daily. Takes only when takes Lasix) COPPER ORAL Take 1 tablet by mouth two times a day. Takes once daily QUERCETIN ORAL Take 1 tablet by mouth once daily. furosemide (LASIX) 40 mg tablet Take 1 tablet by mouth as needed. Calcium Citrate 250 mg calcium tab Take 1 tablet by mouth once daily. losartan (COZAAR) 25 mg tablet Take 1 tablet by mouth once daily. albuterol HFA (VENTOLIN HFA) 90 mcg/actuation inhaler Inhale 2 Puffs as instructed every 4 hours as needed for wheezing/shortness of breath. cholecalciferol (VITAMIN D-3) 5,000 unit tab Take 1 tablet by mouth once daily. pyridoxine, vitamin B6, (VITAMIN B6) 100 mg tablet Take 100 mg by mouth once daily. acetaminophen (TYLENOL) 500 mg tablet Take 1,000 mg by mouth as needed. deferasirox (EXJADE) 500 mg disintegrating tablet Take 3 tablets by mouth once daily. Take on an empty stomach at least 30 minutes before food, preferably at the same time each day. Completely disperse tablets by stirring in at least 7 oz. water, orange juice, or apple juice until a fine suspension is obtained (Patient not taking: Reported on 07/20/2024) mirtazapine (REMERON) 15 mg tablet Take 0.5 tablets by mouth daily at bedtime. (Patient not taking: Reported on 01/29/2024) COMPOUNDED PRESCRIPTION Compression stockings 30-40mmHg 2 pairs Stasis edema of both lower extremities (primary encounter diagnosis) No current facility-administered medications for this visit. FAMILY HISTORY Problem Relation Age of Onset Diabetes Mother Heart Mother Hypertension Mother None Father Colon Cancer Sister other (uterine cancer) Sister other (blood disorder) Sister Breast Cancer Daughter Social History Tobacco Use Smoking status: Former Current packs/day: 0.00 Average packs/day: 0.8 packs/day for 16.0 years (12.8 ttl pk-yrs) Types: Cigarettes Start date: 11/09/1961 Quit date: 11/09/1977 Years since quittin.7 Smokeless tobacco: Never Tobacco comments: Smoked from age [age]. Vaping Use Vaping status: Never Used Substance Use Topics Alcohol use: Not Currently Drug use: Never REVIEW OF SYSTEMS GENERAL: 10 lb weight gain, + malaise, no fevers/chills HEENT: Negative for frequent or significant headaches, No changes in hearing or vision. NECK: Negative for lumps, goiter, pain and significant neck swelling RESPIRATORY: Negative for cough, hemoptysis, wheezing, + dyspnea or shortness of breath with anemia- transfusion helps CARDIOVASCULAR: Negative for chest pain, left leg swelling care home- stockings help, + orthopnea, some palpitations GI: Occ nausea, no vomiting, no diarrhea/ + constipation- treated with Miralax. No hematochezia/melena. No heartburn or reflux symptoms. : No history of dysuria, frequency or incontinence MUSCULOSKELETAL: Positive for joint pain in hips and low back- known cancer lesions. SKIN: Negative for lesions, rash, and itching ENDOCRINE: Negative for cold or heat intolerance, polyuria, polydipsia and goiter NEURO: No history of headaches, syncope, paralysis, seizures or tremors, some neuropathy in feet MOOD: Negative for depression, Some anxiety, no suicidal ideation. EXAM: BP 128/64 Pulse 67 Resp 18 Wt 82.6 kg (182 lb) SpO2 96% BMI 27.58 kg/m PHYSICAL EXAM: Physical Exam Vitals reviewed. Constitutional: Appearance: Normal appearance. HENT: Head: Normocephalic. Right Ear: Tympanic membrane, ear canal and external ear normal. There is no impacted cerumen. Left Ear: Tympanic membrane, ear canal and external ear normal. There is no impacted cerumen. Nose: Nose normal. No congestion or rhinorrhea. Mouth/Throat: Mouth: Mucous membranes are moist. Pharynx: Oropharynx is clear. No oropharyngeal exudate or posterior oropharyngeal erythema. Neck: Vascular: No carotid bruit. Cardiovascular: Rate and Rhythm: Normal rate and regular rhythm. Pulses: Normal pulses. Heart sounds: Murmur heard. Comments: LYNN loudest at right 2 intercostal space, preserved S2 Pulmonary: Effort: Pulmonary effort is normal. Breath sounds: Normal breath sounds. Abdominal: General: There is distension. Palpations: Abdomen is soft. Tenderness: There is no abdominal tenderness. There is no guarding or rebound. Musculoskeletal: Cervical back: Normal range of motion and neck supple. Comments: Walks with a cane, generalized weakness Lymphadenopathy: Cervical: No cervical adenopathy. Skin: General: Skin is warm and dry. Comments: Color somewhat dusky Neurological: General: No focal deficit present. Mental Status: He is alert and oriented to person, place, and time. Psychiatric: Comments: Flat affect, good eye contact LABS: labs ASSESSMENT/PLAN: 1. Anxiety with depression - ICD9: 300.4, ICD10: F41.8 (primary diagnosis) Trial of Buspar as requested - BUSPIRONE 5 MG TABLET 2. Encounter for screening examination for other mental health and behavioral disorders - ICD9: V79.8, ICD10: Z13.39 Trial of Buspar - ANXIETY SCREENING 3. Screening for depression - ICD9: V79.0, ICD10: Z13.31 ongoing - BUSPIRONE 5 MG TABLET - DEPRESSION SCREENING 4. 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 Diastolic dysfunction - ICD9: 429.9, ICD10: I51.89 Known murmur- aortic stenosis- diastolic dysfunction\ - Echocardiogram already scheduled next week 6. Early satiety - ICD9: 780.94, ICD10: R68.81 Ongoing 7. MDS (myelodysplastic syndrome), low grade (HCC) - ICD9: 238.72, ICD10: D46.Z Follows with Dr. Akers - HEMOGLOBIN A1C - THYROID STIMULATING HORMONE - MAGNESIUM - VITAMIN B12 8. Chronic fatigue - ICD9: 780.79, ICD10: R53.82 Check labs - HEMOGLOBIN A1C - THYROID STIMULATING HORMONE Discussed treatment plan and patient voices understanding. Patient's questions answered appropriately. Medications and potential side effects were discussed and patient voices understanding. Return to the office as scheduled or as needed for worsening/no improvement. Gladys Da Silva NP documented in this encounter [facility] 07-13-2024 Telephone encounter Note Prescription Refill Information The patient has been identified by name and date of : Yes Caregiver verified no other encounters exist for this prescription request: Yes Caregiver confirmed with patient/requestor that no other refills are due, in the near future, with this provider at this time: Yes The last office visit in the department: 01/15/24 Does the patient have a future office visit with this provider/department: Yes, 07/20/24 Requested Prescriptions Pending Prescriptions Disp Refills Tadalafil (CIALIS) 2.5 mg tablet 30 tablet 5 Sig: Take 1 tablet by mouth once daily. Ashwin Montenegro LPN July 13, 2024 11:09 AM [facility] 07-13-2024 Miscellaneous Notes Prescription Refill Information The patient has been identified by name and date of : Yes Caregiver verified no other encounters exist for this prescription request: Yes Caregiver confirmed with patient/requestor that no other refills are due, in the near future, with this provider at this time: Yes The last office visit in the department: 01/15/24 Does the patient have a future office visit with this provider/department: Yes, 07/20/24 Requested Prescriptions Pending Prescriptions Disp Refills Tadalafil (CIALIS) 2.5 mg tablet 30 tablet 5 Sig: Take 1 tablet by mouth once daily. Ashwin Montenegro LPN July 13, 2024 11:09 AM documented in this encounter [facility] 07-08-2024 Telephone encounter Note Pt scheduled for 2 units of PRBC at 0800 on 07/08/30. Called cell, hear the at one point but Im not sure she heard my message. I called the house number and left a VM. Sara Milian LPN [facility] 07-08-2024 Miscellaneous Notes Pt scheduled for 2 units of PRBC at 0800 on 07/08/30. Called cell, hear the at one point but Im not sure she heard my message. I called the house number and left a VM. Sara Milian LPN documented in this encounter [facility] 07-08-2024 History of Present illness Narrative No treatment today ANC 0.95 for not meeting parameters. Ok to hold per . HGB 7.2 orders to receive 2 units placed. Pt and accepting of today's plan. documented in this encounter [facility] 06-24-2024 History of Present illness Narrative Radiology Service Progress Note PATIENT NAME: Loreta Hurst DATE OF SERVICE: June 24, 2024 TIME: 11:35 AM PATIENT IDENTITY VERIFICATION COMPLETED USING TWO (2) IDENTIFIERS: Name and Date of confirmed by patient verbally. FALL SCREENING: Has the patient had 2 falls in the last year or 1 fall with injury or currently using an Ambulatory Assistive Device (Walker, Cane, Wheelchair, Crutches, etc.)? No PATIENT GENDER DATA: Male PATIENT RELEVANT IMPLANT DATA REVIEWED: Not Applicable PATIENT PRESENTS WITH AN IMPLANTABLE OR ATTACHED TANK BUILDER HELPER: No RADIOLOGY DEPARTMENT: Ultrasound PERIPHERAL IV DATA: Not applicable SIGNED BY: Ritu Millan RDMS RVT June 24, 2024 11:35 AM documented in this encounter [facility] 06-24-2024 Telephone encounter Note Patient scheduled for 1 unit PRBC 06/25/2024 @ 1030, [facility]. Orders faxed. Patient and lab aware. Margot Cox LPN [facility] 06-24-2024 Miscellaneous Notes Patient scheduled for 1 unit PRBC 06/25/2024 @ 1030, [facility]. Orders faxed. Patient and lab aware. Margot Cox LPN documented in this encounter [facility] 06-11-2024 Telephone encounter Note Scheduled with spouse [facility] Work Phone: 06-11-2024 Miscellaneous Notes Scheduled with spouse 2nd attempt. Message left for patient to schedule Ultrasound Abd/Spleen. Left message for patient to return call. When they call, please schedule US Abd Spleen. Esther Schwartz Could be from worsening splenomegaly. Please schedule for US spleen. Steven Akers DO Care Coordination Triage Note [facility] Situation: Patient reports Other left sided pain Background: Disease, current pertinent medications/treatments MDS on Decitabine Assessment: Call to patient, States pain is on his left side under ribs to hip bone. That area is not tender to touch but it is tender under ribs in LUQ/stomach area. Denies any indigestion, gas, reflux, heartburn. Pain is achy, comes and goes, worse with sitting and/or leaning forward. States it feels bloated and goes up into my ribs There is not a time of day of that is better or worse. Does not notice that any foods or no food makes it better or worse. He has not tried any OTC medications. Pain for the past 2 weeks and not getting better. BM's everyday. Recommendations: Per RNCC, patient directed to: Manage at home. Instructions provided. Will update Dr. Akers and call back with further instructions. Layla Silva RN June 09, 2024 1:28 PM FYI Pt c/o 5/10 intermittent aching pain on LUQ starting approx 2 weeks ago. Repositioning helps alleviate discomfort. Pt states he ate a big meal for his birthday and has had issues with the pain every since. Initially felt it was around my spleen, then stated he feels bloated on occasion and the pain does seem to coincide. Pt having regular BM's. Denies SOB, afebrile. Please advise with any further instructions. documented in this encounter [facility] 06-11-2024 Telephone encounter Note 2nd attempt. Message left for patient to schedule Ultrasound Abd/Spleen. [facility] 06-10-2024 Telephone encounter Note Left message for patient to return call. When they call, please schedule US Abd Spleen. Esther Schwartz [facility] 06-09-2024 Telephone encounter Note Could be from worsening splenomegaly. Please schedule for US spleen. Steven Akers DO [facility] 06-09-2024 Telephone encounter Note Care Coordination Triage Note [facility] Situation: Patient reports Other left sided pain Background: Disease, current pertinent medications/treatments MDS on Decitabine Assessment: Call to patient, States pain is on his left side under ribs to hip bone. That area is not tender to touch but it is tender under ribs in LUQ/stomach area. Denies any indigestion, gas, reflux, heartburn. Pain is achy, comes and goes, worse with sitting and/or leaning forward. States it feels bloated and goes up into my ribs There is not a time of day of that is better or worse. Does not notice that any foods or no food makes it better or worse. He has not tried any OTC medications. Pain for the past 2 weeks and not getting better. BM's everyday. Recommendations: Per RNCC, patient directed to: Manage at home. Instructions provided. Will update Dr. Akers and call back with further instructions. Layla Silva RN June 09, 2024 1:28 PM [facility] Work Phone: 06-09-2024 Telephone encounter Note Patient scheduled for transfusion of 2 units of PRBC to be given at [facility] on 06/10/24 at 0930. Orders faxed, patient notified. Sara Milian LPN [facility] 06-09-2024 Miscellaneous Notes Patient scheduled for transfusion of 2 units of PRBC to be given at [facility] on 06/10/24 at 0930. Orders faxed, patient notified. Sara Milian LPN documented in this encounter [facility] 06-09-2024 Telephone encounter Note FYI Pt c/o 5/10 intermittent aching pain on LUQ starting approx 2 weeks ago. Repositioning helps alleviate discomfort. Pt states he ate a big meal for his birthday and has had issues with the pain every since. Initially felt it was around my spleen, then stated he feels bloated on occasion and the pain does seem to coincide. Pt having regular BM's. Denies SOB, afebrile. Please advise with any further instructions. [facility] 05-27-2024 Telephone encounter Note Noted. Thank you. Steven Akers DO [facility] 05-27-2024 Miscellaneous Notes Noted. Thank you. Steven Akers DO Patient and here for C4 D15 of decitabine. Patient and also stated that patient did get his audiogram done and has his ophthalmology exam July 01 however, patient stated that he does not want to take the exjade d/t the side effects. I let patient know I would pass this along to Dr. Akers. He has not started medication yet since he still has his ophthalmology exam to complete. documented in this encounter [facility] 05-27-2024 Telephone encounter Note Results reviewed with Dr Akers, pt scheduled for transfusion 05/28/24 0900 at [facility], 2 units PRBC. Order faxed. Pt notified. Sara Milian LPN [facility] 05-27-2024 Miscellaneous Notes Results reviewed with Dr Akers, pt scheduled for transfusion 05/28/24 0900 at [facility], 2 units PRBC. Order faxed. Pt notified. Sara Milian LPN FYI: HGB today= 7.8 documented in this encounter [facility] 05-27-2024 Telephone encounter Note Patient and here for C4 D15 of decitabine. Patient and also stated that patient did get his audiogram done and has his ophthalmology exam July 01 however, patient stated that he does not want to take the exjade d/t the side effects. I let patient know I would pass this along to Dr. Akers. He has not started medication yet since he still has his ophthalmology exam to complete. [facility] 05-27-2024 Telephone encounter Note FYI: HGB today= 7.8 [facility] 05-20-2024 Telephone encounter Note Late entry for 05/12/24 Pt scheduled for two units of PRBC at [facility] on 05/14/24 at 0845. Orders faxed. Sara Milian LPN [facility] 05-20-2024 Miscellaneous Notes Late entry for 05/12/24 Pt scheduled for two units of PRBC at [facility] on 05/14/24 at 0845. Orders faxed. Sara Milian LPN documented in this encounter [facility] 05-11-2024 Telephone encounter Note Patient denies fever, chills or pain/pus/drainage at the injection site. Patient also denies any other bruising/bleeding issues. Patient will be in for labs/injection tomorrow. Reviewed s/s of when to call our office and after hour number. Salena Ricardo RN [facility] 05-11-2024 Miscellaneous Notes Patient denies fever, chills or pain/pus/drainage at the injection site. Patient also denies any other bruising/bleeding issues. Patient will be in for labs/injection tomorrow. Reviewed s/s of when to call our office and after hour number. Salena Ricardo RN documented in this encounter [facility] 05-10-2024 Telephone encounter Note Appointment notes updated. Margot Cox LPN [facility] 05-10-2024 Miscellaneous Notes Appointment notes updated. Margot Cox LPN Patient's called back in and confirmed the below information. She stated that Atlee is schedule with his ENT provider for the hearing test and is also scheduled with ophthalmology for his vision test. She also confirmed that there is a CMP panel being added to his lab work that is scheduled. Yolanda Ragland Message left for patient to contact office. Margot Cox LPN ----- Message from Steven Akers DO sent at 05/09/2024 11:51 AM EDT ----- Thank you. He can start it once has hearing test and ophthalmology exam. Add CMP when here for each CBC/poss trans. ----- Message ----- From: Margot Cox LPN Sent: 05/03/2024 8:07 AM EDT To: Steven Akers DO Yes. Margot ----- Message ----- From: Steven Akers DO Sent: 04/30/2024 5:28 PM EDT To: Wstr Hem/Onc Pool; Wstr Masci Pool; # Did his insurance cover Exjade? documented in this encounter [facility] 05-10-2024 Telephone encounter Note Patient's called back in and confirmed the below information. She stated that Atlee is schedule with his ENT provider for the hearing test and is also scheduled with ophthalmology for his vision test. She also confirmed that there is a CMP panel being added to his lab work that is scheduled. Yolanda Rivera Pss [facility] 05-10-2024 Telephone encounter Note Message left for patient to contact office. Margot Cox LPN [facility] 05-10-2024 Telephone encounter Note ----- Message from Steven Akers DO sent at 05/09/2024 11:51 AM EDT ----- Thank you. He can start it once has hearing test and ophthalmology exam. Add CMP when here for each CBC/poss trans. ----- Message ----- From: Margot Cox LPN Sent: 05/03/2024 8:07 AM EDT To: Steven Akers DO Yes. Margot ----- Message ----- From: Steven Akers DO Sent: 04/30/2024 5:28 PM EDT To: Wstr Hem/Onc Pool; Wstr Masci Pool; # Did his insurance cover Exjade? [facility] 05-06-2024 Telephone encounter Note FYVladimir Pt has single red area, approx size of a dime, on the R cheek near nose. Pt states the area is sore if he touches it. Area has been present for a while now, forgot to tell Dr. Akers at last appt. Area is non-blanchable, irregular borders, slightly raised. Pt advised to send picture via [employer] to Dr. Akers. Also advised to see PCP or derm for further evaluation. [facility] 05-06-2024 Miscellaneous Notes FYVladimir Pt has single red area, approx size of a dime, on the R cheek near nose. Pt states the area is sore if he touches it. Area has been present for a while now, forgot to tell Dr. Akers at last appt. Area is non-blanchable, irregular borders, slightly raised. Pt advised to send picture via [employer] to Dr. Akers. Also advised to see PCP or derm for further evaluation. documented in this encounter [facility] 05-03-2024 Telephone encounter Note Prescription Refill Information The patient has been identified by name and date of : Yes Caregiver verified no other encounters exist for this prescription request: Yes Caregiver confirmed with patient/requestor that no other refills are due, in the near future, with this provider at this time: Yes The last office visit in the department: 04/21/2024 Does the patient have a future office visit with this provider/department: Yes Requested Prescriptions Pending Prescriptions Disp Refills folic acid 1 mg tablet [Pharmacy Med Name: Folic Acid 1 MG Oral Tablet] 90 tablet 0 Sig: Take 1 tablet by mouth once daily Domonique Lara LPN May 03, 2024 7:46 AM [facility] 05-03-2024 Miscellaneous Notes Prescription Refill Information The patient has been identified by name and date of : Yes Caregiver verified no other encounters exist for this prescription request: Yes Caregiver confirmed with patient/requestor that no other refills are due, in the near future, with this provider at this time: Yes The last office visit in the department: 04/21/2024 Does the patient have a future office visit with this provider/department: Yes Requested Prescriptions Pending Prescriptions Disp Refills folic acid 1 mg tablet [Pharmacy Med Name: Folic Acid 1 MG Oral Tablet] 90 tablet 0 Sig: Take 1 tablet by mouth once daily Domonique Lara LPN May 03, 2024 7:46 AM documented in this encounter [facility] 04-21-2024 Telephone encounter Note Spoke jose patient's , advising below. She stated patient had an appointment with ophthalmology in June and she will see about getting that moved up sooner.She stated understanding re: completing audiogram and ophthalmology appointment prior to patient stating medication. Esther Schwartz [facility] 04-21-2024 Miscellaneous Notes Spoke jose patient's , advising below. She stated patient had an appointment with ophthalmology in June and she will see about getting that moved up sooner.She stated understanding re: completing audiogram and ophthalmology appointment prior to patient stating medication. Esther Schwartz Let him or his know that he also needs a baseline ophthalmology exam prior to starting Exjade. I sent the prescription earlier today to [facility]. But he knows not to start until he has his baseline audiogram and ophthalmology exam. Steven Akers DO documented in this encounter [facility] 04-21-2024 Telephone encounter Note Let him or his know that he also needs a baseline ophthalmology exam prior to starting Exjade. I sent the prescription earlier today to [facility] in [place]. But he knows not to start until he has his baseline audiogram and ophthalmology exam. Steven Akers DO [facility] 04-21-2024 Miscellaneous Notes Patient scheduled for 2 units PRBC, 04/23/2024 @ 0830, [facility]. Orders faxed. Patient and lab aware. Margot Cox LPN documented in this encounter [facility] 04-21-2024 Telephone encounter Note Patient scheduled for 2 units PRBC, 04/23/2024 @ 0830, [facility]. Orders faxed. Patient and lab aware. Margot Cox LPN [facility] 04-15-2024 Telephone encounter Note One unit of PRBC ordered and scheduled at [facility] 04/16/24 11:30, order faxed and pt notified. Sara Milian LPN [facility] 04-15-2024 Miscellaneous Notes One unit of PRBC ordered and scheduled at [facility] 04/16/24 11:30, order faxed and pt notified. Sara Milian LPN documented in this encounter [facility] 04-12-2024 Telephone encounter Note Patient has been identified by name and date of : Yes Patient phones for refill(s): Requested Prescriptions Pending Prescriptions Disp Refills omeprazole (PRILOSEC) 20 mg capsule 180 capsule 1 Sig: Take 2 capsules by mouth once daily. Date of last office visit in primary care: 01/15/2024 Date of next office visit in primary care: 07/20/2024 Please advise. Thank you. Shanta Harris MA. [facility] 04-12-2024 Miscellaneous Notes Patient has been identified by name and date of : Yes Patient phones for refill(s): Requested Prescriptions Pending Prescriptions Disp Refills omeprazole (PRILOSEC) 20 mg capsule 180 capsule 1 Sig: Take 2 capsules by mouth once daily. Date of last office visit in primary care: 01/15/2024 Date of next office visit in primary care: 07/20/2024 Please advise. Thank you. Shanta Harris MA. documented in this encounter [facility] 04-01-2024 Telephone encounter Note Patient scheduled for 2 units PRBC 04/02/2024 @ 09, [facility]. Orders faxed. Patient and lab aware. Margot Cox LPN [facility] 04-01-2024 Miscellaneous Notes Patient scheduled for 2 units PRBC 04/02/2024 @ 0915, [facility]. Orders faxed. Patient and lab aware. Margot Cox LPN documented in this encounter [facility] 03-26-2024 Telephone encounter Note Called patient and informed him that Dr. Akers reviewed message and advised that he follow-up with his PCP. Patient stated understanding. Salena Ricardo RN [facility] 03-26-2024 Miscellaneous Notes Called patient and informed him that Dr. Akers reviewed message and advised that he follow-up with his PCP. Patient stated understanding. Salena Ricardo RN documented in this encounter [facility] 03-19-2024 Telephone encounter Note Pt scheduled for transfusion, 2 units PRBC on 03/22/24 at 0730. Pt notified and order faxed. Sara Milian LPN [facility] 03-19-2024 Miscellaneous Notes Pt scheduled for transfusion, 2 units PRBC on 03/22/24 at 0730. Pt notified and order faxed. Sara Milian LPN documented in this encounter [facility] 03-16-2024 Telephone encounter Note Spoke with patient's and rescheduled. Esther Schwartz [facility] 03-16-2024 Miscellaneous Notes Spoke with patient's and rescheduled. Esther Schwartz I would recommend doing it on Friday since staying on a routine schedule will increase the chance of it working and/or working faster. Steven Akers DO Spouse called stating appt for 5 lab treatment had been canceled due to . Patient is asking if he should reschedule for Friday or skip treatment. Please advise. documented in this encounter [facility] 03-16-2024 Telephone encounter Note I would recommend doing it on Friday since staying on a routine schedule will increase the chance of it working and/or working faster. Steven Akers DO [facility] 03-16-2024 Telephone encounter Note Spouse called stating appt for 5 lab treatment had been canceled due to . Patient is asking if he should reschedule for [place] or skip treatment. Please advise. [facility] Work Phone: 03-04-2024 Telephone encounter Note Patient scheduled for 2 units PRBC 03/05/2024 @ 0900, [facility]. Orders faxed. Patient and lab aware. Margot Cox LPN [facility] 03-04-2024 Miscellaneous Notes Patient scheduled for 2 units PRBC 03/05/2024 @ 0900, [facility]. Orders faxed. Patient and lab aware. Margot Cox LPN documented in this encounter [facility] 03-04-2024 History of Present illness Narrative Dr. Akers aware of hgb 7.5. Pt c/o weakness, hearing thumping of my heart in my ear, and getting tired easily. Vitals WNL. Pt scheduled for transfusion tomorrow at 0900 at [facility]. documented in this encounter [facility] 02-19-2024 Miscellaneous Notes Pt. Scheduled for transfusion 2 units packed cells@ [facility] 02/19@ 8 am. Pt. And lab notified, orders faxed. Domonique Lara LPN documented in this encounter [facility] 02-19-2024 Miscellaneous Notes TOXICITY CHECK SYMPTOM ASSESSMENT The patient is on Decitabine Headache: No Visual Changes: No Dizziness: No Do you have any periods of confusion? No Mood changes: No Mouth or throat pain: No Appetite: no changes in appetite, appetite good Taste changes: No Nausea: Yes takes Zofran PRN which really takes care of it so far Vomiting: No Heartburn: No. Weight gain/loss: No Episodes of palpitations/chest discomfort/pressure/pain one time this past week there have been many times over the past couple of years where he will get a sharp pain from his left elbow, up his left arm, across his chest, and to his right arm. This has been normal for him, occurs once every 3 weeks. Doesn't last long. Has followed up with cardiology and nothing abnormal was found. Cardiology told him to monitor and call their office or 911 if the episodes get more severe. instructed to follow cardiology instructions for follow-up/management. Shortness of breath: No Cough: No Diarrhea: no Constipation: nothing different Bladder/Urinary Changes: None Pain: No=0 (pain 0 on a scale of 0-10). Fever: No Chills: No Cold sensitivity: No Numbness/weakness: No Edema: No Skin changes: No Itching: No Yellowing of skin or eyes: No Musculoskeletal/joint changes/issues No Bleeding issues: No Activity Level: gets fatigued more quickly Do you need to take naps? Occasionally which is normal. Does the patient need interventions or same day appointment:No Reinforced CURRENT treatment education based on current and anticipated symptoms. Discussed port/line care and patient verbalizes understanding: Not Applicable Patient instructed to contact office or after hours Hematology/Oncology fellow for: temperature ? 100.4; questions or concerns. Patient verbalized understanding of when to seek medical attention and after hours number protocol. Salena Ricardo RN documented in this encounter [facility] 02-13-2024 Miscellaneous Notes CYCLE 1/DAY 1 POST TREATMENT CALL Today's date: February 13, 2024 Treatment Regimen: Decitabine C1D1 Date: 02/12/24 Called patient to follow-up on symptom management. Spoke with . he is doing well, denies any issues/concerns. SYMPTOM ASSESSMENT Neuro: None CV/Resp: None GI/: None Integument: None Activity: Activity Level (0-100%): same as baseline Pain: No=0 (pain 0 on a scale of 0-10). Fever: No Chills: No Any new referrals needed? No Reinforced CURRENT treatment education based on current and anticipated symptoms. Discussed port/line care and patient verbalizes understanding: Not Applicable Patient instructed to contact office or after hours Hematology/Oncology fellow for: temperature ? 100.4; questions or concerns. Patient verbalized understanding of when to seek medical attention and after hours number protocol. 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 YES Confirmed date and time for chemotherapy ? YES Other appointments (labs, imaging) discussed? 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 NO Described the infusion room and what to expect. (What to wear, what to bring [iPad, books] amount of time treatment can take, meals and CC options for food) YES Note: na Discussed whether the patient can eat prior to labs and treatment. YES Who is driving you to and from treatment? Spouse Discussed why it is important to bring someone with you. Yes, first treatment Resources discussed (music therapy, Art therapy, pet therapy, etc.) YES Education on chemotherapy (drug, side effects) discussed and that the patient will be receiving a C1D1 call within 7 days of treatment. YES Other topics discussed, interventions needed: irena Silva RN Patient teaching was completed over the phone. Layla Silva RN ONCOLOGY PATIENT EDUCATION NOTE TOPIC: Chemotherapy, Medications: Decitabaine READINESS TO LEARN: COGNITIVE ABILITY: Alert and oriented MOTIVATION TO LEARN: Interested FAMILY SUPPORT: High - Very involved in pt care INSTRUCTION PROVIDED TO: Patient, Patient and family member, and Spouse INSTRUCTION PROVIDED BY: Nurse Coordinator PATIENT LEARNS BEST BY: Multiple Methods FACTORS AFFECTING LEARNING: None PHYSICAL LIMITATIONS AFFECTING LEARNING: None LEARNING RESPONSE DIAGNOSIS: MDS METHOD OF INSTRUCTION: Individual instruction Written instruction - handouts Verbal instruction PATIENT/FAMILY RESPONSE: Verbalizes understanding of: CHEMOTHERAPY-Regimen, toxicity and side effects FOLLOW UP PLAN: Recommend - Recommend continued instruction and follow up as directed SUPPLEMENTAL MATERIAL: Written material was provided at this visit with the following information: - Chemotherapy education was provided by a pharmacist NO - Side effect management information was provided/discussed including but not limited to: anemia, bowel habit changes, fatigue, infection, nausea/vomitting, neutropenia, thrombocytopenia YES - Provided important phone numbers and contacts during and after hours. YES - Provided information on symptoms that require immediate assistance. YES - Provided Chemotherapy when to call handouts YES - Preventing infection. YES - Treatment schedule and confirmation of appointment times. YES - Available support groups. YES - The importance of contraception during the course of chemotherapy NA - Neutropenic fever protocol discussed with patient, which included the importance of reporting any fever of 100.4F (38.0C) or greater to the healthcare team as noted on the provided wallet card and/or magnet. YES Time Spent: 35 minutes REFERRAL (RECOMMENDATION): N/A Layla Silva RN documented in this encounter [facility] 01-30-2024 Miscellaneous Notes First 4 cycles of chemo scheduled and chem start email sent. Esther Schwartz Check out comments: Start weekly Decitabine the week after next. Cancel future Luspatercept injections. - COMPLETED Q week CBC(?TX). - SCHEDULED THROUGH FEBRUARY Q 3 month CMP/VIT B12/FOLATE/IRON STUDIES/MM labs. Chemo ed scheduled for 02/08. Patient is requesting all appointments to be on due to travel. Please schedule chemo once orders are filed. Esther Schwartz documented in this encounter [facility] 01-29-2024 Miscellaneous Notes Met with patient and introduced myself. Patient was given a My Journey binder with chemocare information, office contact information, thermometer, and additional chemotherapy resource booklets. Patient aware this nurse will review on scheduled appointment date. Salena Ricardo RN documented in this encounter [facility] 01-29-2024 Nurse Note Injection deferred, treatment discontinued. 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 Transfusion dependent. 5) Sensory neuropathy. HPI: The patient is a 78 yo male who had an unremarkable PMH. Evaluated 06/29/2015 for c/o sore throat, malaise and low grade fever that had been going on for about 2 weeks. Was found to have macrocytic anemia and elevated serum iron and ferritin. Stool hemoccult negative. 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 Declined therapy. Current therapy: 1) Luspatercept. 2) RBC transfusion as indicated. Transferred care to [facility] early 2021. Was treated with Inqovi 04/2022 for about a week, but developed pancytopenia and neutropenic fever requiring hospitalization and transfusional support. However, he didn't require RBC transfusion for several months. Presents for ongoing oncologic management. Interim history: Required a 2 unit red blood cell transfusion 2 weeks ago. He is really getting more fatigued and rundown having a hard time doing any work around the house--occasionally brings in firewood and helps typically daily with the dishes. Stairs are becoming difficult due to leg weakness and pain. This has been a chronic problem and he has been seeing chronic pain management for tramadol. It helps him. stay more functional. Neuropathy--numbness limited to toes and balls of feet--stable. PMH, medications and allergies as below personally reviewed by me today. Any changes documented in appropriate section. ROS: Constitutional: No episode of fever, shaking chill and night sweats. Appetite is normal. Neuro: Denies vertigo and imbalance. HEENT: No recent change in voice, vision. Resp: Denies cough, wheeze and hemoptysis. CVS: See above. GI: No dysphagia or odynophagia. No nausea or vomiting. Bowels are working normally. Has occasional diarrhea. Endo: No hot flashes. Musculoskeletal: Denies bone, back, joint and muscular pain. Derm: No rash. Heme: No unusual bleeding or bruising. Psych: Normal mood. PHYSICAL EXAM: Vitals: Blood pressure 130/88, pulse 73, temperature 36.8 C (98.3 F), height 173 cm (5' 8.11), weight 80.1 kg (176 lb 8 oz), SpO2 98%. Fatigued-appearing and in no acute distress. EYES: Sclerae are slightly icteric bilaterally. LYMPHATIC: There is no palpable cervical or supraclavicular adenopathy. RESPIRATORY: Inspiratory breath sounds are of normal intensity in all ariza. No rales, wheezes or rhonchi. CARDIOVASCULAR: Rhythm is regular. Mild systolic murmur. ABDOMEN: The abdomen is mildly distended. No fluid wave. Spleen barely palpable. SKIN: No jaundice. LABS: PATHOLOGY: Bone marrow biopsy 01/08/2023: A-C. Bone marrow, biopsy core, aspirate clot, touch imprint and aspirate smear: - Myelodysplastic syndrome with low blast count and ring sideroblasts. - See comment. D. Peripheral blood smear: - Myelodysplastic syndrome. - See comment. The patient has a history of myelodysplastic syndrome and of monoclonal B cell population associated with an M protein characterized as IgM kappa. The findings in this case consist of pancytopenia associated with a slightly hypercellular bone marrow with numerous ring sideroblasts and hypogranular neutrophils. Flow cytometric immunophenotypic analysis performed on this specimen identified no evidence of an abnormal population. In conclusion, the findings in this case indicate the persistence of the previously diagnosed myelodysplastic syndrome (MDS). Adequate classification requires additional molecular and cytogenetic data, but the differential diagnosis includes MDS with mutated SF3B1 or MDS with multilineage dysplasia in the ICC 2022 classification or, in the WHO 2022 classification MDS with low blasts and SF3B1 mutation or MDS with low blasts. There is no definitive evidence of a low grade lymphoproliferative disorder or of a plasma cell neoplasm. Correlation with molecular and conventional cytogenetic findings is necessary. DIAGNOSIS: 46,XY[20] ASSESSMENT/PLAN: (D46.20) MDS (myelodysplastic syndrome), low grade (HCC) (D53.9) Macrocytic anemia Assessment: -RARS. -IPSS=0 Low risk. -IPSS-R=2 Low risk. 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 -No significant amount of lymphoplasmacytic lymphoma identified on bone marrow biopsy 01/2023. -Initially he seemed to respond well to Luspatercept. However losing response. Starting to require more frequent transfusion again. I recommended changing therapy to low-dose decitabine. I discussed the rationale, logistics, potential risks (including but not limited to small chance of nausea and vomiting, other cytopenias, infectious complications and the small potential for as a consequence of severe toxicity/complications of therapy), benefits and alternatives, as well as the personnel involved in the administration of low-dose decitabine on a weekly basis. I answered his questions in detail and he verbalized understanding and agreed with the recommended therapy. Please see the electronic consent document for details of doses and schedule. -His had asked if I could take over prescribing tramadol for him. Very reasonable given that he has a bone marrow malignancy. Currently takes 3 tramadol tablets scheduled throughout the day. Has been seeing chronic pain management. This regimen works very well for him and keeps him as functional as possible at this point. Plan: -Discontinue Luspatercept. -2 unit RBC transfusion tomorrow. -Begin weekly decitabine when approved. -Weekly CBC/possible transfusion. -OV/CMP/myeloma labs/B12/serum folate and iron in 12 weeks. 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 -Had CD5 negative low-grade lymphoproliferative disorder identified by flow cytometry only on original bone marrow aspirate. The clonal cells were lambda light chain restricted. -Has polyneuropathy. Previous MAG antibody testing negative. No progression. -Recent flow cytometry on the aspirate from 01/08/2023 demonstrated no immunophenotypic evidence of a lymphoproliferative disorder. 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 -Again reviewed this information with him and his . No clinical consequence as of now. Plan: -Monitor every 3 months. (E83.111) Iron overload, transfusional Assessment: -Reviewed most recent iron testing including ferritin. -He has had a lot of transfusional support over the last several years and has not had iron chelation. -Discussed iron chelation with him. Renal function is normal as are LFTs. -Reasonable candidate for Exjade. However due to his sensitivities to medications and discussion of the risks and benefits, he previously declined chelation therapy. Plan: -Monitor iron every 3 months. Portions of this documentation were copied and pasted from previous office visit notes in order to provide a cohesive continuity of the history. The note has been reviewed and edited and updated as necessary. I spent a total of 30 minutes on the date of the service which included preparing to see the patient, [id number] patient care, completing clinical documentation, obtaining and/or reviewing separately obtained history, performing a medically appropriate examination, counseling and educating the patient/family/caregiver, ordering medications, tests, or procedures, communicating with other HCPs (not separately reported), and communicating results to the patient/family/caregiver. Steven Akers DO documented in this encounter [facility] 01-26-2024 Miscellaneous Notes Patient has been identified by name and date of : Yes, Patient phones for refill(s): Requested Prescriptions Pending Prescriptions Disp Refills montelukast (SINGULAIR) 10 mg tablet 90 tablet 3 Sig: Take 1 tablet by mouth daily at bedtime. Date of last office visit in primary care: 01/15/2024 Date of next office visit in primary care: 07/20/2024 Please advise. Thank you. Gladys oGnsalez LPN. documented in this encounter [facility] 01-15-2024 Instructions Sunday Carter PA-C - 01/15/2024 12:08 PM EST Mirtazapine: Patient drug information Access [employer] for additional drug information, tools, and databases. Copyright 0695-6020 [employer]. All rights reserved. (For additional information see Mirtazapine: Drug information) You must carefully read the Consumer Information Use and Disclaimer below in order to understand and correctly use this information. Brand Names: [place] Remeron; Remeron SolTab Brand Names: [place] APO-Mirtazapine; Auro-Mirtazapine; Auro-Mirtazapine OD; DOM-Mirtazapine; JAMP-Mirtazapine; MYLAN-Mirtazapine; PMS-Mirtazapine; PRO-Mirtazapine; Remeron; Remeron RD; MAGAN-Mirtazapine [DSC]; SANDOZ Mirtazapine; TEVA-Mirtazapine; TEVA-Mirtazapine OD [DSC] Warning Drugs like this one have raised the chance of suicidal thoughts or actions in children and young adults. The risk may be greater in people who have had these thoughts or actions in the past. All people who take this drug need to be watched closely. Call the doctor right away if signs like low mood (depression), nervousness, restlessness, grouchiness, panic attacks, or changes in mood or actions are new or worse. Call the doctor right away if any thoughts or actions of suicide occur. This drug is not approved for use in children. Talk with the doctor. What is this drug used for? It is used to treat low mood (depression). It may be given to you for other reasons. Talk with the doctor. What do I need to tell my doctor BEFORE I take this drug? If you are allergic to this drug; any part of this drug; or any other drugs, foods, or substances. Tell your doctor about the allergy and what signs you had. If you are taking any of these drugs: Certain drugs used for anxiety, sleep, or other health problems like alprazolam or diazepam. If you have taken certain drugs for depression or Parkinson's disease in the last 14 days. This includes isocarboxazid, phenelzine, tranylcypromine, selegiline, or rasagiline. Very high blood pressure may happen. If you are taking any of these drugs: Linezolid or methylene blue. This is not a list of all drugs or health problems that interact with this drug. Tell your doctor and pharmacist about all of your drugs (prescription or OTC, natural products, vitamins) and health problems. You must check to make sure that it is safe for you to take this drug with all of your drugs and health problems. Do not start, stop, or change the dose of any drug without checking with your doctor. What are some things I need to know or do while I take this drug? Tell all of your health care providers that you take this drug. This includes your doctors, nurses, pharmacists, and dentists. It may take several weeks to see the full effects. Do not stop taking this drug all of a sudden without calling your doctor. You may have a greater risk of side effects. If you need to stop this drug, you will want to slowly stop it as ordered by your doctor. Avoid driving and doing other tasks or actions that call for you to be alert until you see how this drug affects you. Some people may have a higher chance of eye problems with this drug. Your doctor may want you to have an eye exam to see if you have a higher chance of these eye problems. Call your doctor right away if you have eye pain, change in eyesight, or swelling or redness in or around the eye. Low white blood cell counts have rarely happened with this drug. This may lead to a higher chance of getting an infection. Tell your doctor if you have ever had a low white blood cell count. Call your doctor right away if you have signs of infection like fever, chills, or sore throat. An unsafe heartbeat that is not normal (long QT on ECG) has happened with this drug. Sudden deaths have rarely happened in people taking this drug. Talk with the doctor. This drug may cause high cholesterol and triglyceride levels. Talk with the doctor. Have blood work checked as you have been told by the doctor. Talk with the doctor. Avoid drinking alcohol while taking this drug. Talk with your doctor before you use marijuana, other forms of cannabis, or prescription or OTC drugs that may slow your actions. If you have phenylketonuria (PKU), talk with your doctor. Some products have phenylalanine. If you are 65 or older, use this drug with care. You could have more side effects. Tell your doctor if you are , plan on getting , or are breast-feeding. You will need to talk about the benefits and risks to you and the baby. What are some side effects that I need to call my doctor about right away? WARNING/CAUTION: Even though it may be rare, some people may have very bad and sometimes deadly side effects when taking a drug. Tell your doctor or get medical help right away if you have any of the following signs or symptoms that may be related to a very bad side effect: Signs of an allergic reaction, like rash; hives; itching; red, swollen, blistered, or peeling skin with or without fever; wheezing; tightness in the chest or throat; trouble breathing, swallowing, or talking; unusual hoarseness; or swelling of the mouth, face, lips, tongue, or throat. Signs of low sodium levels like headache, trouble focusing, memory problems, feeling confused, weakness, seizures, or change in balance. Signs of a very bad skin reaction (Turner-Robert syndrome/toxic epidermal necrolysis) like red, swollen, blistered, or peeling skin (with or without fever); red or irritated eyes; or sores in the mouth, throat, nose, or eyes. Redness or irritation of the palms of hands or soles of feet. Flu-like signs. Mouth irritation or mouth sores. Restlessness. Fast or abnormal heartbeat. Very bad dizziness or passing out. Joint pain. A severe and sometimes deadly problem called serotonin syndrome may happen. The risk may be greater if you also take certain other drugs. Call your doctor right away if you have agitation; change in balance; confusion; hallucinations; fever; fast or abnormal heartbeat; flushing; muscle twitching or stiffness; seizures; shivering or shaking; sweating a lot; severe diarrhea, upset stomach, or throwing up; or very bad headache. What are some other side effects of this drug? All drugs may cause side effects. However, many people have no side effects or only have minor side effects. Call your doctor or get medical help if any of these side effects or any other side effects bother you or do not go away: Feeling dizzy, sleepy, tired, or weak. Constipation. Dry mouth. More hungry. Weight gain. Strange or odd dreams. These are not all of the side effects that may occur. If you have questions about side effects, call your doctor. Call your doctor for medical advice about side effects. You may report side effects to your national health agency. How is this drug best taken? Use this drug as ordered by your doctor. Read all information given to you. Follow all instructions closely. All products: Take at bedtime if it causes sleepiness. Take with or without food. Keep taking this drug as you have been told by your doctor or other health care provider, even if you feel well. Oral-disintegrating tablet: Do not push the tablet out of the foil when opening. Use dry hands to take it from the foil. Place on your tongue and let it dissolve. Water is not needed. Do not swallow it whole. Do not chew, break, or crush it. Do not take this drug out of the blister pack until you are ready to take it. Take this drug right away after opening the blister pack. Do not store the removed drug for future use. What do I do if I miss a dose? Take a missed dose as soon as you think about it. If it is close to the time for your next dose, skip the missed dose and go back to your normal time. Do not take 2 doses at the same time or extra doses. How do I store and/or throw out this drug? Store at room temperature protected from light. Store in a dry place. Do not store in a bathroom. Keep all drugs in a safe place. Keep all drugs out of the reach of children and pets. Throw away unused or drugs. Do not flush down a toilet or pour down a drain unless you are told to do so. Check with your pharmacist if you have questions about the best way to throw out drugs. There may be drug take-back programs in your area. General drug facts If your symptoms or health problems do not get better or if they become worse, call your doctor. Do not share your drugs with others and do not take anyone else's drugs. Some drugs may have another patient information leaflet. If you have any questions about this drug, please talk with your doctor, nurse, pharmacist, or other health care provider. If you think there has been an overdose, call your poison control center or get medical care right away. Be ready to tell or show what was taken, how much, and when it happened. Last Reviewed [id number] Consumer Information Use and Disclaimer This information should not be used to decide whether or not to take this medicine or any other medicine. Only the healthcare provider has the knowledge and training to decide which medicines are right for a specific patient. This information does not endorse any medicine as safe, effective, or approved for treating any patient or health condition. This is only a brief summary of general information about this medicine. It does NOT include all information about the possible uses, directions, warnings, precautions, interactions, adverse effects, or risks that may apply to this medicine. This information is not specific medical advice and does not replace information you receive from the healthcare provider. You must talk with the healthcare provider for complete information about the risks and benefits of using this medicine. The use of this information is governed by the [employer] End User License Agreement, available at https://www.Curazy.Sparkbuy/en/solitzel lacey/Buzzoek/about/joan. 2020 [employer]. and its affiliates and/or licensors. All rights reserved. Use of [employer] is subject to the Subscription and License Agreement. Topic 70655 Version 187.0 documented in this encounter [facility] 01-15-2024 History of Present illness Narrative 78 year old male with c/o here for follow up Had injection from Dr. Traore recently that caused restless leg sx which have persisted, also tremors in arms, day after unable to support himself, had to have help. Has had 4 injections in tailbone area. Tramadol three times a day and occasionally tylenol. Worried Dr. Traore will not continue Tramadol thee times a day if not doing injections. Discussed conversation with provider. I can prescribe Tramadol with his oversight. 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 MENDEL Hook: LV size and LV SF WNL, EF 60%, stage II diastolic dysfunction, no regional wall motion abnormalities. RV: Normal size and RV SF. RVSP not reported Bilateral atria normal Mitral valve with mild annular calcification, 1+ eccentric MVi. Tricuspid valve normal, 1+ TVi, PASP: 35 mmHg AV trileaflet, mild focal aortic valve calcification. PASP 35mmHg PV: Normal Great vessels: Normal aortic root, pulmonary artery and vena cava. No pericardial effusion. Current meds: Furosemide 40mg as need only 3-4 times since December, none inlast 2 months. Doxazosin 4mg daily HS Losartan 25mg daily Use of NTG: No Chest pain, arm, jaw pain, neck, or upper back pain suggestive of angina: confirms today still has episodes, 2 in last month, tingling in both arms and shoulder with 5 sec of feeling can't move, with no concurrent, SOB, sweating, syncopal sensation or chest pain. Near syncopal On day in shower on shower chair for an hour before he regained enough strength to move. SOB: Gets SOB with ever exertion,like taking a shower, relates to low hgb Dyspnea with exertion: No orthopnea: No Cough : No racing or irregular heartbeats: No palpitations: No syncopal sx: no but as above and gets dizzy with standing up when hgb is low Headache: No Unexplainable fatigue Yes Leg swelling: No Nausea: Yes, a lot with overexertion diaphoresis: sometimes hot at night, some sweating Heartburn: No Claudication: No Smoking: No Following Low cholesterol, high fiber diet? Yes If on statin: muscle aches? No If on statin: GI sx or diarrhea? 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 Akers: notes indicate tolerating well, decreased need for transfusion to every 2-3 weeks. 06/19/2023 was in ER due to falling asleep a.m. sitting on toilet and fell forward hitting chest on cabinet. CXR no fracture CXR no fracture. WBC 3.5-HGB 7.9-HCT 24.0-PLT 189 transuded 1 unit next morning Component Latest Ref Rng & Units 12/11/2023 12/18/2023 01/01/2024 01/08/2024 WBC 3.70 - 11.00 k/uL 4.57 4.28 3.79 4.59 RBC 4.20 - 6.00 m/uL 2.44 (L) 2.59 (L) 2.10 (L) 2.88 (L) Hemoglobin 13.0 - 17.0 g/dL 8.5 (L) 8.8 (L) 7.6 (L) 9.9 (L) Hematocrit 39.0 - 51.0 % 26.0 (L) 27.2 (L) 22.4 (L) 29.1 (L) MCV 80.0 - 100.0 fL 106.6 (H) 105.0 (H) 106.7 (H) 101.0 (H) MCH 26.0 - 34.0 pg 34.8 (H) 34.0 36.2 (H) 34.4 (H) MCHC 30.5 - 36.0 g/dL 32.7 32.4 33.9 34.0 RDW-CV 11.5 - 15.0 % 26.7 (H) 25.3 (H) 23.5 (H) Platelet Count 150 - 400 k/uL 216 202 193 192 MPV 9.0 - 12.7 fL 11.5 11.0 10.9 11.2 NRBC /100 WBC 0.0 0.7 0.8 0.7 Absolute nRBC <0.01 k/uL <0.01 0.03 (H) 0.03 (H) 0.03 (H) Neut% % 68.0 70.8 72.2 73.3 Abs Neut (ANC) 1.45 - 7.50 k/uL 3.11 3.03 2.73 3.36 Lymph% % 26.0 21.3 20.3 18.7 Abs Lymph 1.00 - 4.00 k/uL 1.19 0.91 (L) 0.77 (L) 0.86 (L) Nobles% % 4.0 4.7 4.7 4.8 Abs Nobles <0.87 k/uL 0.18 0.20 0.18 0.22 Eosin% % 1.0 1.4 0.5 1.5 Abs Eosin <0.46 k/uL 0.05 0.06 <0.03 0.07 Baso% % 0.0 0.2 0.5 0.2 Abs Baso <0.11 k/uL 0.00 <0.03 <0.03 <0.03 [place]ell% % 1.0 Left Shift Present Platelet Estimate Adequate Red Cell Morph Reviewed: see results of individual morphologies Polychromasia Slight Basophilic Stippling Occasional Anisocytosis Present Ovalocytes Few RBC Fragments None Seen Few (A) DTYPE Manual Auto Auto Auto Immature Gran % % 1.6 1.8 1.5 IMMATURE GRANS (ABS) <0.10 k/uL 0.07 0.07 0.07 Component Latest Ref Rng & Units 12/20/2021 11/26/2022 Iron 41 - 186 ug/dL 98 139 TIBC 232 - 386 ug/dL 171 (L) 196 (L) Transferrin Saturation 15.0 - 57.0 % 57 70.9 (H) Retic % 0.4 - 2.0 % 1.6 1.5 Abs Retic 0.018 - 0.100 M/uL 0.039 0.032 Ferritin 30.3 - 565.7 ng/mL 4,864.0 (H) 5,041.0 (H) Vitamin B12 232 - 1,245 pg/mL 482 Erythropoietin 2.6 - 18.5 mIU/mL 174.1 (H) Chronic gerd Early satiety Current medication: Omeprazole 40mg daily. Current symptoms: none. Last Mg level if on PPI chronically: none. States today about the same: Notes it seems like his belly is getting bigger. Weight is unchanged. Feels like trapped gas. Taking Miralax which helps Heartburn is controlled: Yes. Dysphagia: No. Bloody or black stools: No. Bowel changes: constipated: taking dulcolax 2 tabs and Last EGD and/or colonoscopy: 04/30/2017. Colonoscopy: Perianal and digital rectal exam normal, 5 to 10 mm polyp found at rectosigmoid colon, hyperplastic, resected 1. Stomach, antrum, biopsy (A) - Gastric antral-type and body-type mucosa with no diagnostic abnormality. 2. Rectosigmoid colon polyp, biopsy (B) - Inflamed hyperplastic polyp. 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 PSA (ng/mL) Date Value 01/23/2017 0.56 PSA Screening (ng/mL) Date Value 05/04/2015 1.49 04/07/2014 1.60 HISTORIES FAMILY HISTORY Problem Relation Age of Onset Diabetes Mother Heart Mother Hypertension Mother None Father Colon Cancer Sister other (uterine cancer) Sister other (blood disorder) Sister Breast Cancer Daughter PAST MEDICAL HISTORY Diagnosis Date Anemia Asthma Benign neoplasm of colon Benign neoplasm of rectum and anal canal Benign prostatic hyperplasia with nocturia Early satiety 09/14/2021 Heartburn MDS (myelodysplastic syndrome) (HCC) Neutropenia (HCC) Seasonal allergies Snoring Urinary hesitancy 09/14/2021 Urinary retention 09/14/2021 PAST SURGICAL HISTORY Procedure Laterality Date ARTHROSCOPY KNEE DIAGNOSTIC W/WO SYNOVIAL BX SPX 2004? Arthroscopy, right knee AXILLARY LYMPHADENECTOMY Left 1997 No BP or IV to left upper extremity COLONOSCOPY FLX DX W/COLLJ SPEC WHEN PFRMD 2002 Colonoscopy COLONOSCOPY FLX DX W/COLLJ SPEC WHEN PFRMD 05/01/2012 Colonoscopy COLONOSCOPY FLX DX W/COLLJ SPEC WHEN PFRMD 04/30/2017 Colonoscopy ESOPHAGOGASTRODUODENOSCOPY TRANSORAL DIAGNOSTIC 04/30/2017 EGD LAP UMBILICAL HERNIA REPAIR 1998 PAST SURGICAL HISTORY OF 1997 Lymphnodes & fatty tumor removed left axilla PAST SURGICAL HISTORY OF 1996 Fatty tumors removed from chest & abdomen PET IMAGING CT ATTENUATION SKULL BASE MID-THIGH 03/27/2022 03/27/2022 whole-body PET scan skull to mid thigh: Negative exam, no scintigraphic evidence of viable neoplasm/metastasis. PROSTATE BIOPSY 1998 VASECTOMY UNI/BI SPX W/POSTOP SEMEN EXAMS 1998 Social History Tobacco Use Smoking status: Former Packs/day: 0.80 Years: 16.00 Additional pack years: 0.00 Total pack years: 12.80 Types: Cigarettes Quit date: 11/09/1977 Years since quittin.2 Smokeless tobacco: Never Tobacco comments: Smoked from age [age]. Vaping Use Vaping Use: Never used Substance Use Topics Alcohol use: No Drug use: Never ACTIVE PROBLEM LIST Diverticulosis Family History of Malignant Neoplasm of Gastrointestinal Tract Varicosity Benign Neoplasm of Colon Benign Neoplasm of Rectum and Anal Canal Absolute Anemia Elevated Ferritin Igm Lambda Monoclonal Gammopathy Mds (Myelodysplastic Syndrome), Low Grade (Hcc) Polyneuropathy in Other Diseases Classified Elsewhere (Hcc) Chronic Gerd Idiopathic Aplastic Anemia (Hcc) Cough Swelling of Limb Waldenstroms Macroglobulinemia (Hcc) History of Transfusion Pulmonary Hypertension (Hcc) Acute Respiratory Failure With Hypoxia (Hcc) Ileus (Hcc) Early Satiety Urinary Hesitancy Urinary Retention Abnormal Mri, Lumbar Spine Diastolic Dysfunction Abnormal Echocardiogram Encounter for Support and Coordination of Transition of Care Renal Cyst Iron Overload, Transfusional Current Outpatient Medications Medication Sig Dispense Refill Tadalafil (CIALIS) 2.5 mg tablet Take 1 tablet by mouth once daily. 30 tablet 5 doxazosin (CARDURA) 4 mg tablet take 1 tablet by mouth once daily at bedtime 90 tablet 3 Melatonin 5 mg cap Take 1 capsule by mouth daily at bedtime. ondansetron orally disintegrating (ZOFRAN ODT) 4 mg disintegrating tablet Take 1 tablet by mouth every 8 hours as needed for nausea/vomiting. DISSOLVE 1 TABLET IN MOUTH EVERY 8 HOURS NEEDED FOR NAUSEA AND VOMITING 30 tablet 1 omeprazole (PRILOSEC) 20 mg capsule Take 2 capsules by mouth once daily. 180 capsule 1 polyethylene glycol 3350 (MIRALAX ORAL) Take by mouth once daily. potassium chloride ER (KLOR-CON) 20 mEq tablet Take 1 tablet by mouth once daily. (Patient taking differently: Take 20 mEq by mouth once daily. Takes only when takes Lasix) 30 tablet 2 luspatercept-aamt 100 mg in syringe 2 mL (REBLOZYL) Inject 2 mL subcutaneously every 3 weeks. 34 mL 0 folic acid 1 mg tablet Take 1 tablet by mouth once daily. 90 tablet 3 montelukast (SINGULAIR) 10 mg tablet Take 1 tablet by mouth daily at bedtime. 90 tablet 3 COPPER ORAL Take 1 tablet by mouth twice daily. QUERCETIN ORAL Take 1 tablet by mouth once daily. furosemide (LASIX) 40 mg tablet Take 1 tablet by mouth as needed. 90 tablet 1 Calcium Citrate 250 mg calcium tab Take 1 tablet by mouth once daily. losartan (COZAAR) 25 mg tablet Take 1 tablet by mouth once daily. traMADol (ULTRAM) 50 mg tablet Take 1 tablet by mouth every 6 hours as needed for pain. (Patient taking differently: Take 50 mg by mouth every 6 hours as needed for pain. Takes TID) 28 tablet 0 albuterol HFA (VENTOLIN HFA) 90 mcg/actuation inhaler Inhale 2 Puffs as instructed every 4 hours as needed for wheezing/shortness of breath. 1 Each 5 cholecalciferol (VITAMIN D-3) 5,000 unit tab Take 1 tablet by mouth once daily. COMPOUNDED PRESCRIPTION Compression stockings 30-40mmHg 2 pairs Stasis edema of both lower extremities (primary encounter diagnosis) 1 Each 0 pyridoxine, vitamin B6, (VITAMIN B6) 100 mg tablet Take 100 mg by mouth once daily. acetaminophen (TYLENOL) 500 mg tablet Take 1,000 mg by mouth as needed. No current facility-administered medications for this visit. RSV Vaccine(1 - 1-dose 60+ series) Never done Influenza Vaccine(1) due on 07/11/2023 Advance Directive Discussion due on 11/10/2023 Depression Assessment due on 11/10/2023 EXAM: BP 130/60 Pulse 72 Resp 16 Wt 78 kg (172 lb) SpO2 97% BMI 25.77 kg/m Pleasant older adult medication in no acute distress. Alert and oriented all spheres. Normal affect and cognition. Speech normal. No deficits to learning or comprehension. Skin warm, dry, pink to lips and nailbeds. Normal turgor. Respirations regular and unlabored. HEENT: NCAT. No scleral icterus or conjunctival injection. Pale conjunctivae, pale lips-mildly. TM's clear. Nose and oropharynx free from injection or lesion. Oral membranes moist and pink. No cervical lymph nodes. Thyroid non-tender, no masses, or enlargement. Carotids pulses 2+/4+ without bruits. No JVD with HOB at 30 degrees. Chest is normal shape. Lungs are clear to all ariza with good air exchange through out. HRRR without murmur or gallop. No lifts, heaves, or rubs. Abdomen rounded, soft, active BS, not painful Extrem: no clubbing or cyanosis. Edema: 1/4+. Extremities are warm and pink with prompt capillary refill. ASSESSMENT/PLAN: 1. Diastolic dysfunction - ICD9: 429.9, ICD10: I51.89 (primary diagnosis) 2. Abnormal echocardiogram - ICD9: 793.2, ICD10: R93.1 3. Pulmonary hypertension (HCC) - ICD9: 416.8, ICD10: I27.20 Stable from cardiac standpoint, follows with Cinthya. Recent visit with Reza Can CNP 4. MDS (myelodysplastic syndrome), low grade (HCC) - ICD9: 238.72, ICD10: D46.Z 5. 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 (HCC) - ICD9: 273.3, ICD10: C88.0 6. Idiopathic aplastic anemia (HCC) - ICD9: 284.9, ICD10: D61.3 7. Polyneuropathy in other diseases classified elsewhere (HCC) - ICD9: 357.4, ICD10: G63 8. Pancytopenia (HCC) - ICD9: 284.19, ICD10: D61.818 9. Iron overload, transfusional - ICD9: 275.02, ICD10: E83.111 10. Elevated ferritin - ICD9: 790.6, ICD10: R79.89 Managing pretty well outside of pain. Went 6 months without a transfusion. Iron level and ferriten back down. Pain persistent 11. Chronic GERD - ICD9: 530.81, ICD10: K21.9 Controlled on omeprazole 12. Early satiety - ICD9: 780.94, ICD10: R68.81 resolved 13. BPH with obstruction/lower urinary tract symptoms - ICD9: 600.01, 599.69, ICD10: N40.1, N13.8 On Cardura with reasonable flow. 14. Urinary retention - ICD9: 788.20, ICD10: R33.9 resolved 15. Chronic insomnia - ICD9: 780.52, ICD10: F51.04 Asking for medication othr than benadryl to help with sleep Trial: - MIRTAZAPINE 15 MG TABLET Educated on new medication administration, warnings and cautions, common side effects, anticipated duration or therapy, and instructions on cessation management to avoid risks if stops medication. Patient choice was discussed in shared decision making. Sunday Carter PA-C documented in this encounter [facility] 01-12-2024 Miscellaneous Notes [facility] calling and states no Prior auth needed for Cialis. Patient has been identified by name and date of : Yes Patient phones for refill(s): Requested Prescriptions Pending Prescriptions Disp Refills Tadalafil (CIALIS) 2.5 mg tablet 30 tablet 5 Sig: Take 1 tablet by mouth once daily. Date of last office visit in primary care: 07/03/2023 Date of next office visit in primary care: 01/15/2024 Please advise. Thank you. Ashwin Montenegro LPN. documented in this encounter [facility] 01-08-2024 Nurse Note Pt here for injection of lUSPATERCEPT. Given SQ two in LLQ and one in RLQ abd. Pt tolerated well. Sara Milian LPN documented in this encounter [facility] 01-01-2024 Miscellaneous Notes Pt. Scheduled for transfusion 2 units packed cells @ [facility] 01/02 @ 8:30 am. Pt. And lab notified, orders faxed. Domonique Lara LPN documented in this encounter [facility] 12-11-2023 Miscellaneous Notes Pt scheduled for one unit of PRBC 12/12/23 at [facility] at 10AM. Pt notified. Order faxed. Sara Milian LPN documented in this encounter [facility] 10-16-2023 History of Present illness Narrative Pt here for injection of Luspatercept. Given SQ 2 in LLQ and 1 RLQ. Pt tolerated well. For all other information regarding today, see today's OV note with Dr Akers. Sara Milian LPN documented in this encounter [facility] 10-16-2023 History of Present illness Narrative Diagnoses: 1) 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 Transfusion dependent. 5) Sensory neuropathy. HPI: The patient is a 78 yo male who had an unremarkable PMH. Evaluated 06/29/2015 for c/o sore throat, malaise and low grade fever that had been going on for about 2 weeks. Was found to have macrocytic anemia and elevated serum iron and ferritin. Stool hemoccult negative. 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 Declined therapy. Current therapy: 1) Luspatercept. 2) RBC transfusion as indicated. Transferred care to [facility] early 2021. Was treated with Inqovi 04/2022 for about a week, but developed pancytopenia and neutropenic fever requiring hospitalization and transfusional support. However, he didn't require RBC transfusion for several months. Presents for ongoing oncologic management. Interim history: Most recent transfusion 09/23. 1 unit. Got injection for LBP 09/18. Had restless legs and insominia. Benadryl helped. More dyspnea. Weak and tired since steroid injections. No exertional chest pain/pressure. No falls since last seen. Neuropathy--numbness limited to toes and balls of feet--endorses improved since starting luspatercept. PMH, medications and allergies as below personally reviewed by me today. Any changes documented in appropriate section. ROS: Constitutional: No episode of fever, shaking chill and night sweats. Appetite is normal. Neuro: Denies vertigo and imbalance. HEENT: No recent change in voice, vision. Resp: Denies cough, wheeze and hemoptysis. CVS: See above. GI: No dysphagia or odynophagia. No nausea or vomiting. Bowels are working normally. Has occasional diarrhea. Endo: No hot flashes. Musculoskeletal: Denies bone, back, joint and muscular pain. Derm: No rash. Heme: No unusual bleeding or bruising. Psych: Normal mood. PHYSICAL EXAM: Vitals: 124/67. Fatigued-appearing and in no acute distress. EYES: Sclerae are slightly icteric bilaterally. LYMPHATIC: There is no palpable cervical or supraclavicular adenopathy. RESPIRATORY: Inspiratory breath sounds are of normal intensity in all ariza. No rales, wheezes or rhonchi. CARDIOVASCULAR: Rhythm is regular. Mild systolic murmur. ABDOMEN: The abdomen is distended. Extremities: No swelling. Has compression stockings on. SKIN: No jaundice. LABS: PATHOLOGY: Bone marrow biopsy 01/08/2023: A-C. Bone marrow, biopsy core, aspirate clot, touch imprint and aspirate smear: - Myelodysplastic syndrome with low blast count and ring sideroblasts. - See comment. D. Peripheral blood smear: - Myelodysplastic syndrome. - See comment. The patient has a history of myelodysplastic syndrome and of monoclonal B cell population associated with an M protein characterized as IgM kappa. The findings in this case consist of pancytopenia associated with a slightly hypercellular bone marrow with numerous ring sideroblasts and hypogranular neutrophils. Flow cytometric immunophenotypic analysis performed on this specimen identified no evidence of an abnormal population. In conclusion, the findings in this case indicate the persistence of the previously diagnosed myelodysplastic syndrome (MDS). Adequate classification requires additional molecular and cytogenetic data, but the differential diagnosis includes MDS with mutated SF3B1 or MDS with multilineage dysplasia in the ICC 2022 classification or, in the WHO 2022 classification MDS with low blasts and SF3B1 mutation or MDS with low blasts. There is no definitive evidence of a low grade lymphoproliferative disorder or of a plasma cell neoplasm. Correlation with molecular and conventional cytogenetic findings is necessary. DIAGNOSIS: 46,XY[20] ASSESSMENT/PLAN: (D46.20) MDS (myelodysplastic syndrome), low grade (HCC) (D53.9) Macrocytic anemia Assessment: -RARS. -IPSS=0 Low risk. -IPSS-R=2 Low risk. 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 -CT from 12/10/2022--Degree of splenomegaly was not significantly worse than it had been. No significant amount of lymphoplasmacytic lymphoma identified on bone marrow biopsy. -He had continued frequent need for red blood cell transfusional support--every 2 to 3 weeks for the past several years. He was intolerant to TREV therapy which caused significant hypertension, headache and pounding tinnitus. He declined further trial of TREV. -Short course of Inqovi summer 2021. He had pancytopenia and neutropenic fever. Declined further therapy with that drug. -Tolerating Luspatercept very well overall. He has had a decrease in frequency of RBC transfusion requirement. Previously was every 2 weeks now every 3 weeks. -Blood pressure under control. Plan: -Okay to continue Luspatercept. -2 unit RBC transfusion per his request. -Continue Lasix daily. -Continue potassium chloride daily with Lasix. -Continue monitoring blood pressure. -OV/CMP/Iron in 12 weeks. 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 -Had CD5 negative low-grade lymphoproliferative disorder identified by flow cytometry only on original bone marrow aspirate. The clonal cells were lambda light chain restricted. -Has polyneuropathy. Previous MAG antibody testing negative. No progression. -Over time, still nothing to suggest amyloidosis--ie, neuropathy rather limited and has remained stable for several years. Echo 05/2018 was normal. -Recheck on 11/26/2022 demonstrated small incremental increase in serum monoclonal protein. Immunofixation showed IgM kappa and lambda light chain. -I previously reviewed the results of his CT scans in detail. No evidence of cirrhotic morphology of the liver. No ascites. Mild splenomegaly not significantly changed from several years ago. -Recent flow cytometry on the aspirate from 01/08/2023 demonstrated no immunophenotypic evidence of a lymphoproliferative disorder. 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 -Again reviewed this information with him and his . No clinical consequence as of now. Plan: -Recheck early next year. (E83.111) Iron overload, transfusional Assessment: -Reviewed most recent iron testing including ferritin. -He has had a lot of transfusional support over the last several years and has not had iron chelation. -Discussed iron chelation with him. Renal function is normal as are LFTs. -Reasonable candidate for Exjade. However due to his sensitivities to medications and discussion of the risks and benefits, he again declined chelation therapy. Plan: -Monitor iron periodically. Portions of this documentation were copied and pasted from previous office visit notes in order to provide a cohesive continuity of the history. The note has been reviewed and edited and updated as necessary. I spent a total of 15 minutes on the date of the service which included preparing to see the patient, [id number] patient care, completing clinical documentation, obtaining and/or reviewing separately obtained history, performing a medically appropriate examination, counseling and educating the patient/family/caregiver, communicating with other HCPs (not separately reported), and communicating results to the patient/family/caregiver. Steven Akers DO Est. Pt. Discuss recent lab results, luspatercept inj. Today. Domonique Lara LPN documented in this encounter [facility] 09-25-2023 Miscellaneous Notes Printed and placed on desk to sign. documented in this encounter [facility] 09-25-2023 Miscellaneous Notes Patient can request 5 year placard from PCP. Margot Cox LPN documented in this encounter [facility] 09-25-2023 Nurse Note Patient presents with: Imm/Inj Pt is identified by name and birthdate: Yes. Allergies and medications reviewed. Latex allergy? No. Does this patient have: Unplanned weight loss or gain of greater than 10 pounds, or a change of appetite over the last year? No Does the patient have any concerns about safety in the home/falls? Not at risk for falls Has the patient fallen in the past year? No Does the patient have difficulty performing or completing routine daily living activities? No Does this patient have concerns about personal safety? No Is patient having pain? Pain: No=0 (pain 0 on a scale of 0-10). Health Maintenance: Reviewed and updated. Does patient have MyChart access or Caregiver proxy: yes Pt/Caregiver willingness and readiness to learn assessed: Yes. Barriers: none Luspatercept injection administered, 2 RT. ABD, 1 Left ABD. tolerated well, no immediate adverse reactions noted. Domonique Lara LPN documented in this encounter [facility] 09-18-2023 Miscellaneous Notes See other phone encounter. Salena Ricardo RN Patient has a standing order for CBC/poss transfusion. Salena Ricardo RN documented in this encounter [facility] 09-18-2023 Miscellaneous Notes Patient scheduled for transfusion of 1 units of PRBC to be given at [facility] on 08/19/23 at 11:30. Orders faxed, patient notified. Sara Milian LPN documented in this encounter [facility] 09-18-2023 Miscellaneous Notes SOCIAL WORK FOLLOW UP NOTE: [facility] Date of service: September 18, 2023 Loreta Hurst is being seen for a follow up social work visit. Today's visit includes: spouse and patient TOPICS ADDRESSED: SW met with pt this date to discuss the renewal application for continued Reblozyl assistance. Pt signed application. SW obtained physician's signature as well. SW successfully faxed this date and sent to internal scanning. SW to update this note with determination is received. PLAN: Assist with financial support applications and Continue follow up as needed F/U APPOINTMENT: PRN Assigned SW listed in Care Team tab: Yes MARIAJOSE Cason documented in this encounter [facility] 09-04-2023 History of Present illness Narrative Pt here for injection of Luspatercept. Given sq, two in LLQ and one in RLQ. Pt tolerated well. Sara Milian LPN documented in this encounter [facility] 08-21-2023 Miscellaneous Notes Pt. Scheduled for transfusion 1 unit packed cells @ [facility] 08/22 @ 8 am . Pt, and lab notified, orders faxed. Domonique Lara LPN documented in this encounter [facility] 08-14-2023 Nurse Note Patient presents with: Imm/Inj Pt is identified by name and birthdate: Yes. Allergies and medications reviewed. Latex allergy? No. Does this patient have: Unplanned weight loss or gain of greater than 10 pounds, or a change of appetite over the last year? No Does the patient have any concerns about safety in the home/falls? Not at risk for falls Has the patient fallen in the past year? YES Does the patient have difficulty performing or completing routine daily living activities? No Does this patient have concerns about personal safety? No Is patient having pain? Pain: No=0 (pain 0 on a scale of 0-10). Health Maintenance: Reviewed and updated. Does patient have MyChart access or Caregiver proxy: yes Pt/Caregiver willingness and readiness to learn assessed: Yes. Barriers: none Luspatercept injection administered, 1 LLQ, 2 RLQ tolerated well, no immediate adverse reactions noted. Domonique Lara LPN documented in this encounter [facility] 07-24-2023 Miscellaneous Notes Spoke with patient/spouse and scheduled. Esther Schwartz Injection scheduled as directed. Will reschedule labs w/ Luspatercept injection when patient is here as directed below. Esther Schwartz PSS- please schedule patient for Luspatercept on 07/24/2023 at 11:15. is aware. Patient will reschedule all lab appointments and injection appointments for Q 3 week Luspatercept while her on . Margot Cox LPN SW spoke with [employer] this date. [employer] In[employer] reports pt enrollment is active through 11/09/2023. Pt's account is active and nothing is needed to update or renew until 11/09/2023. Rep reports last Reblozyl was shipped to our office last week and should have arrived 07/18/2023. The prescription we sent May 2023 shows 12 refills. Rep spoke with their pharmacy while SW on line and they report nothing is needed either. Pt enrolled in [facility] under Dr. Akers, no update needed. [employer]MS reports pt can continue as scheduled, will renew at end of calendar year. SIA Cason-Santos Patient's is aware but is asking if [employer] gave any sort of timeframe for the new approval? Margot Cox LPN Images from the original note were not included. Benitez Morrison, Lisa Barrios; Wstr Hem/Onc Pool; Shanell Degroot LISW; Sosa Toscano RN 47 minutes ago (7:24 AM) JR Funding Under Dr Guzman, retired and [place] [facility] [place]. [place] pt's canceled treatment: program funding has and the licensed master social worker Obdulio is working on getting this renewed - patient advised they will be updated Pt's spouse calling in stating she called [employer] and they informed her that pt's account is still open with them and active through the end of this year. Pt covered Mar 12 2023-October You can reach [facility]sat [phone] Please call Sigrid underwood documented in this encounter [facility] 07-21-2023 Miscellaneous Notes Scheduled labs for 07/24 and then also scheduled labs out every three weeks until December. Lory PSS- please schedule patient for a lab appointment , 07/24/2023 for CBC(?TX) @ 11:00. Patient should still keep lab appointments Q 3 weeks for CBC(?TX). These will need scheduled as well. Margot Cox LPN documented in this encounter [facility] 07-03-2023 History of Present illness Narrative 78 year old male with c/o Trouble with allergies but no rhinorrhea, itchy or runny eyes, or coughing. Breathes through mouth at night. Identifies only phlegm all day off and on. 99.6F Diastolic dysfunction (primary encounter diagnosis) Abnormal echocardiogram Pulmonary hypertension (hcc) Cardiovascular interval hx: 03/10/2023 echocardiogram [facility] MENDEL Hook: LV size and LV SF WNL, EF 60%, stage II diastolic dysfunction, no regional wall motion abnormalities. RV: Normal size and RV SF. RVSP not reported Bilateral atria normal Mitral valve with mild annular calcification, 1+ eccentric MVi. Tricuspid valve normal, 1+ TVi, PASP: 35 mmHg AV trileaflet, mild focal aortic valve calcification. PASP 35mmHg PV: Normal Great vessels: Normal aortic root, pulmonary artery and vena cava. No pericardial effusion. Current meds: Furosemide 40mg as need only 3-4 times since December, none inlast 2 months. Doxazosin 4mg daily HS Losartan 25mg daily Use of NTG: No Chest pain, arm, jaw pain, neck, or upper back pain suggestive of angina: has had tingling in both arms and shoulder with 5 sec of feeling can't move, with no concurrent, SOB, sweating, syncopal sensation or chest pain. Near syncopal On day in shower on shower chair for an hour before he regained enough strength to move. SOB: No Dyspnea with exertion: No orthopnea: No Cough : No racing or irregular heartbeats: No palpitations: No syncopal sx: no but as above Headache: No Unexplainable fatigue Yes Leg swelling: No Nausea: Yes, a lot diaphoresis: sometimes hot at night, some sweating Heartburn: No Claudication: No Smoking: No Following Low cholesterol, high fiber diet? Yes If on statin: muscle aches? No If on statin: GI sx or diarrhea? No Additional history . Lab review: Component Latest Ref Rng & Units 03/30/2013 05/04/2015 Triglyceride 30 - 149 mg/dL 65 84 Cholesterol, Total 100 - 199 mg/dL 152 121 HDL Cholesterol >45 mg/dL 57 49 VLDL Cholesterol 6 - 40 mg/dL 13 17 LDL Cholesterol 60 - 129 mg/dL 82 55 (L) Fasting Time hrs fasting NONFASTING TC:HDL Ratio 1.00 - 5.00 2.67 2.47 LDL:HDL Ratio 0.50 - 3.55 1.44 1.12 Non HDL Cholesterol 90 - 159 mg/dL 95 72 (L) Ross (obstructive sleep apnea) No treatment other than breath-right strips which helps. Has to sleep sitting up in recliner. 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 Masci: notes indicate tolerating well, decreased need for transfusion to every 2-3 weeks. 06/19/2023 was in ER due to falling asleep a.m. sitting on toilet and fell forward hitting chest on cabinet. CXR no fracture CXR no fracture. WBC 3.5-HGB 7.9-HCT 24.0-PLT 189 transuded 1 unit next morning Chronic gerd Current medication: Omeprazole 40mg daily. Current symptoms: none. Last Mg level if on PPI chronically: none. Notes it seems like his belly is getting bigger. Weight is unchanged.Feels like trapped gas Heartburn is controlled: Yes. Dysphagia: No. Bloody or black stools: No. Bowel changes: constipated: taking dulcolax 2 tabs and Last EGD and/or colonoscopy: 04/30/2017. Colonoscopy: Perianal and digital rectal exam normal, 5 to 10 mm polyp found at rectosigmoid colon, hyperplastic, resected 1. Stomach, antrum, biopsy (A) - Gastric antral-type and body-type mucosa with no diagnostic abnormality. 2. Rectosigmoid colon polyp, biopsy (B) - Inflamed hyperplastic polyp. JEL/rw 05/02/2017 Benign prostatic hyperplasia with nocturia Urinary retention Weak stream Trouble emptying out Nocturia every 2.5-3 hours Current medications: Doxazocin 4mg at bedtime 03/18/2023 consultation with MENDEL Malave: increased to 8 mg nightly but patient could not tolerate increase and went back to 4 mg. PSA (ng/mL) Date Value 01/23/2017 0.56 PSA Screening (ng/mL) Date Value 05/04/2015 1.49 04/07/2014 1.60 HISTORIES FAMILY HISTORY Problem Relation Age of Onset Diabetes Mother Heart Mother Hypertension Mother None Father Colon Cancer Sister other (uterine cancer) Sister other (blood disorder) Sister Breast Cancer Daughter PAST MEDICAL HISTORY Diagnosis Date Anemia Asthma Benign neoplasm of colon Benign neoplasm of rectum and anal canal Benign prostatic hyperplasia with nocturia Early satiety 09/14/2021 Heartburn MDS (myelodysplastic syndrome) (HCC) Neutropenia (HCC) Seasonal allergies Snoring Urinary hesitancy 09/14/2021 Urinary retention 09/14/2021 PAST SURGICAL HISTORY Procedure Laterality Date ARTHROSCOPY KNEE DIAGNOSTIC W/WO SYNOVIAL BX SPX 2004? Arthroscopy, right knee AXILLARY LYMPHADENECTOMY Left 1997 No BP or IV to left upper extremity COLONOSCOPY FLX DX W/COLLJ SPEC WHEN PFRMD 2002 Colonoscopy COLONOSCOPY FLX DX W/COLLJ SPEC WHEN PFRMD 05/01/2012 Colonoscopy COLONOSCOPY FLX DX W/COLLJ SPEC WHEN PFRMD 04/30/2017 Colonoscopy ESOPHAGOGASTRODUODENOSCOPY TRANSORAL DIAGNOSTIC 04/30/2017 EGD LAP UMBILICAL HERNIA REPAIR 1997 PAST SURGICAL HISTORY OF 1997 Lymphnodes & fatty tumor removed left axilla PAST SURGICAL HISTORY OF 1996 Fatty tumors removed from chest & abdomen PET IMAGING CT ATTENUATION SKULL BASE MID-THIGH 03/27/2022 03/27/2022 whole-body PET scan skull to mid thigh: Negative exam, no scintigraphic evidence of viable neoplasm/metastasis. PROSTATE BIOPSY 1998 VASECTOMY UNI/BI SPX W/POSTOP SEMEN EXAMS 1998 Social History Tobacco Use Smoking status: Former Packs/day: 0.80 Years: 16.00 Additional pack years: 0.00 Total pack years: 12.80 Types: Cigarettes Quit date: 11/09/1977 Years since quittin.6 Smokeless tobacco: Never Tobacco comments: Smoked from age [age]. Vaping Use Vaping Use: Never used Substance Use Topics Alcohol use: No Drug use: Never ACTIVE PROBLEM LIST Diverticulosis Family History of Malignant Neoplasm of Gastrointestinal Tract Varicosity Benign Neoplasm of Colon Benign Neoplasm of Rectum and Anal Canal Absolute Anemia Elevated Ferritin Igm Lambda Monoclonal Gammopathy Mds (Myelodysplastic Syndrome), Low Grade (Hcc) Polyneuropathy in Other Diseases Classified Elsewhere (Hcc) Chronic Gerd Idiopathic Aplastic Anemia (Hcc) Cough Swelling of Limb Waldenstroms Macroglobulinemia (Hcc) History of Transfusion Pulmonary Hypertension (Hcc) Acute Respiratory Failure With Hypoxia (Hcc) Ileus (Hcc) Early Satiety Urinary Hesitancy Urinary Retention Abnormal Mri, Lumbar Spine Diastolic Dysfunction Abnormal Echocardiogram Encounter for Support and Coordination of Transition of Care Renal Cyst Iron Overload, Transfusional Current Outpatient Medications Medication Sig Dispense Refill Tadalafil 2.5 mg tab TAKE 1 TABLET BY MOUTH ONCE DAILY 30 tablet 5 sildenafil (VIAGRA) 50 mg tablet 1-2 tabs as needed daily 30 tablet 5 polyethylene glycol 3350 (MIRALAX ORAL) Take by mouth once daily. potassium chloride ER (KLOR-CON) 20 mEq tablet Take 1 tablet by mouth once daily. (Patient taking differently: Take 20 mEq by mouth once daily. Takes only when takes Lasix) 30 tablet 2 omeprazole (PRILOSEC) 20 mg capsule Take 2 capsules by mouth once daily. 180 capsule 1 luspatercept-aamt 100 mg in syringe 2 mL (REBLOZYL) Inject 2 mL subcutaneously every 3 weeks. 34 mL 0 folic acid 1 mg tablet Take 1 tablet by mouth once daily. 90 tablet 3 montelukast (SINGULAIR) 10 mg tablet Take 1 tablet by mouth daily at bedtime. 90 tablet 3 COPPER ORAL Take 1 tablet by mouth twice daily. QUERCETIN ORAL Take 1 tablet by mouth once daily. furosemide (LASIX) 40 mg tablet Take 1 tablet by mouth as needed. 90 tablet 1 doxazosin (CARDURA) 4 mg tablet Take 1 tablet by mouth daily at bedtime. (Patient taking differently: Take 8 mg by mouth daily at bedtime.) 90 tablet 3 Calcium Citrate 250 mg calcium tab Take 1 tablet by mouth once daily. losartan (COZAAR) 25 mg tablet Take 1 tablet by mouth once daily. ondansetron orally disintegrating (ZOFRAN ODT) 4 mg disintegrating tablet DISSOLVE 1 TABLET IN MOUTH EVERY 8 HOURS NEEDED FOR NAUSEA AND VOMITING traMADol (ULTRAM) 50 mg tablet Take 1 tablet by mouth every 6 hours as needed for pain. (Patient taking differently: Take 50 mg by mouth every 6 hours as needed for pain. Takes TID) 28 tablet 0 albuterol HFA (VENTOLIN HFA) 90 mcg/actuation inhaler Inhale 2 Puffs as instructed every 4 hours as needed for wheezing/shortness of breath. 1 Each 5 cholecalciferol (VITAMIN D-3) 5,000 unit tab Take 1 tablet by mouth once daily. COMPOUNDED PRESCRIPTION Compression stockings 30-40mmHg 2 pairs Stasis edema of both lower extremities (primary encounter diagnosis) 1 Each 0 pyridoxine, vitamin B6, (VITAMIN B6) 100 mg tablet Take 100 mg by mouth once daily. acetaminophen (TYLENOL) 500 mg tablet Take 1,000 mg by mouth as needed. No current facility-administered medications for this visit. DEPRESSION ASSESSMENT Never done EXAM: BP 148/70 Pulse 65 Resp 16 Wt 78.5 kg (173 lb) SpO2 96% BMI 25.92 kg/m Pleasant older man in no acute distress. Alert and oriented all spheres. Normal affect and cognition. Speech normal. No deficits to learning or comprehension. Skin warm, dry, pale pink to lips and nailbeds. Pale conjunctiva. Normal turgor. Respirations regular and unlabored. HEENT: NCAT. No scleral icterus or conjunctival injection. TM's clear. Nose and oropharynx free from injection or lesion. Oral membranes moist and pink. No cervical lymph nodes. Thyroid non-tender, no masses, or enlargement. Carotids pulses 2+/4+ without bruits. No JVD with HOB at 30 degrees. Chest is normal shape. Lungs are clear to all ariza with good air exchange through out. HRRR without murmur or gallop. No lifts, heaves, or rubs. Extrem: no clubbing or cyanosis. Edema: 1/4+ pitting lower legs. No pain or palpable cords. Extremities are warm and pink with prompt capillary refill. ASSESSMENT/PLAN: 1. MDS (myelodysplastic syndrome), low grade (HCC) - ICD9: 238.72, ICD10: D46.Z (primary diagnosis) 2. 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 (HCC) - ICD9: 273.3, ICD10: C88.0 Continues transfusion as needed q2-3 weeks Following with hematology 3. Pulmonary hypertension, mild (HCC) - ICD9: 416.8, ICD10: I27.20 4. Diastolic dysfunction - ICD9: 429.9, ICD10: I51.89 PH borderline on echo, no evidence diastolic dysf 5. Iron overload, transfusional - ICD9: 275.02, ICD10: E83.111 Monitored by hemonc 6. ROSS (obstructive sleep apnea) - ICD9: 327.23, ICD10: G47.33 compliant 7. 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 Chronic GERD - ICD9: 530.81, ICD10: K21.9 - Discussed lifestyle modifications including losing weight, limiting caffeine, no meals three hours before sleep, and head of bed elevation - Continue treatment with Prilosec 20 mg QD F/u 6 months and as needed Some of this note may have been copied and pasted for the purpose of history context and comparison. Sunday Carter PA-C documented in this encounter [facility] 07-03-2023 History of Present illness Narrative Luspatercept injection administered, right lower abd.tolerated well, no immediate adverse reactions noted. See office notes Domonique López LPN documented in this encounter [facility] 07-03-2023 Miscellaneous Notes Patient scheduled for 1 unit PRBC 07/04/2023 @ [facility], [facility]. Orders faxed. Patient and lab aware. Margot Cox LPN documented in this encounter [facility] 07-03-2023 History of Present illness Narrative Diagnoses: 1) 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 Transfusion dependent. 5) Sensory neuropathy. HPI: The patient is a 78 yo male who had an unremarkable PMH. Evaluated 06/29/2015 for c/o sore throat, malaise and low grade fever that had been going on for about 2 weeks. Was found to have macrocytic anemia and elevated serum iron and ferritin. Stool hemoccult negative. 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 Declined therapy. Current therapy: 1) Luspatercept. 2) RBC transfusion as indicated. Transferred care to [facility] early 2021. Was treated with Inqovi 04/2022 for about a week, but developed pancytopenia and neutropenic fever requiring hospitalization and transfusional support. However, he didn't require RBC transfusion for several months. Presents for ongoing oncologic management. Interim history: Received 1 unit RBC transfusion when went to the 06/20. Over the weekend when getting out of the bed about 2 in the morning he fell forward and hit his head on the linen closet door. Currently no issue there and no bruising. However he he has had pain in the left upper chest that comes and goes but mostly hurts when he tries to lie down. Neuropathy--numbness limited to toes and balls of feet--symptoms fluctuate. PMH, medications and allergies as below personally reviewed by me today. Any changes documented in appropriate section. ROS: Constitutional: No episode of fever, shaking chill and night sweats. Appetite is normal. Neuro: Denies vertigo and imbalance. HEENT: No recent change in voice, vision. Resp: Denies cough, wheeze and hemoptysis. CVS: See above. GI: No dysphagia or odynophagia. No nausea or vomiting. Bowels are working normally. Has occasional diarrhea. Endo: No hot flashes. Musculoskeletal: Denies bone, back, joint and muscular pain. Derm: No rash. Heme: No unusual bleeding or bruising. Psych: Normal mood. PHYSICAL EXAM: Vitals: Blood pressure 148/73, pulse 67, temperature 36.8 C (98.2 F), weight 78.7 kg (173 lb 8 oz), SpO2 98 %. Fatigued-appearing and in no acute distress. EYES: Sclerae are slightly icteric bilaterally. NECK: Supple. LYMPHATIC: There is no palpable cervical or supraclavicular adenopathy. RESPIRATORY: Inspiratory breath sounds are of normal intensity in all ariza. No rales, wheezes or rhonchi. CARDIOVASCULAR: Rhythm is regular. Mild systolic murmur. ABDOMEN: The abdomen is distended. There is a mild fluid wave. He has tender splenomegaly but hard to palpate the borders secondary to the tenderness. Extremities: No swelling. Has compression stockings on. SKIN: No jaundice or rash. No petechiae. 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 No focal motor weakness. MS: Tender left ribs below axilla. LABS: Component Latest Ref Rng & Units 05/22/2023 06/12/2023 07/03/2023 WBC 3.70 - 11.00 k/uL 3.46 (L) 3.82 3.35 (L) RBC 4.20 - 6.00 m/uL 2.18 (L) 2.37 (L) 2.23 (L) Hemoglobin 13.0 - 17.0 g/dL 8.2 (L) 8.6 (L) 8.1 (L) Hematocrit 39.0 - 51.0 % 24.2 (L) 26.0 (L) 24.3 (L) MCV 80.0 - 100.0 fL 111.0 (H) 109.7 (H) 109.0 (H) MCH 26.0 - 34.0 pg 37.6 (H) 36.3 (H) 36.3 (H) MCHC 30.5 - 36.0 g/dL 33.9 33.1 33.3 RDW-CV 11.5 - 15.0 % 23.5 (H) 26.1 (H) 25.7 (H) Platelet Count 150 - 400 k/uL 154 171 169 MPV 9.0 - 12.7 fL 10.5 10.9 11.4 NRBC /100 WBC 0.0 0.8 Absolute nRBC <0.01 k/uL <0.01 0.03 (H) Neut% % 72.0 74.6 Abs Neut (ANC) 1.45 - 7.50 k/uL 2.49 2.85 Lymph% % 20.0 17.8 Abs Lymph 1.00 - 4.00 k/uL 0.69 (L) 0.68 (L) Nobles% % 3.0 4.7 Abs Nobles <0.87 k/uL 0.10 0.18 Eosin% % 3.0 0.8 Abs Eosin <0.46 k/uL 0.10 0.03 Baso% % 0.0 0.3 Abs Baso <0.11 k/uL 0.00 <0.03 [place]% % 1.0 Myelo% % 1.0 Left Shift Present Platelet Estimate Adequate Red Cell Morph Reviewed: see results of individual morphologies Polychromasia Slight Anisocytosis Present Ovalocytes Few RBC Fragments None Seen Few (A) Tear Drop Few DTYPE Manual Auto Immature Gran % % 1.8 IMMATURE GRANS (ABS) <0.10 k/uL 0.07 PATHOLOGY: Bone marrow biopsy 01/08/2023: A-C. Bone marrow, biopsy core, aspirate clot, touch imprint and aspirate smear: - Myelodysplastic syndrome with low blast count and ring sideroblasts. - See comment. D. Peripheral blood smear: - Myelodysplastic syndrome. - See comment. The patient has a history of myelodysplastic syndrome and of monoclonal B cell population associated with an M protein characterized as IgM kappa. The findings in this case consist of pancytopenia associated with a slightly hypercellular bone marrow with numerous ring sideroblasts and hypogranular neutrophils. Flow cytometric immunophenotypic analysis performed on this specimen identified no evidence of an abnormal population. In conclusion, the findings in this case indicate the persistence of the previously diagnosed myelodysplastic syndrome (MDS). Adequate classification requires additional molecular and cytogenetic data, but the differential diagnosis includes MDS with mutated SF3B1 or MDS with multilineage dysplasia in the ICC 2021 classification or, in the WHO 2021 classification MDS with low blasts and SF3B1 mutation or MDS with low blasts. There is no definitive evidence of a low grade lymphoproliferative disorder or of a plasma cell neoplasm. Correlation with molecular and conventional cytogenetic findings is necessary. DIAGNOSIS: 46,XY[20] ASSESSMENT/PLAN: (D46.20) MDS (myelodysplastic syndrome), low grade (HCC) (D53.9) Macrocytic anemia Assessment: -RARS. -IPSS=0 Low risk. -IPSS-R=2 Low risk. 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 -CT from 12/10/2022--Degree of splenomegaly was not significantly worse than it had been. No significant amount of lymphoplasmacytic lymphoma identified on bone marrow biopsy. -He had continued frequent need for red blood cell transfusional support--every 2 to 3 weeks for the past several years. He was intolerant to TREV therapy which caused significant hypertension, headache and pounding tinnitus. He declined further trial of TREV. -Short course of Inqovi summer 2021. He had pancytopenia and neutropenic fever. Declined further therapy with that drug. -Tolerating Luspatercept very well overall. He has had a decrease in frequency of RBC transfusion requirement. Previously was every 2 weeks now every 3 weeks. Recently started highest dose level. -Blood pressure under much better control. -Likely fractured several ribs with recent fall. Plan: -Okay to continue Luspatercept today at 1.75 mg/kg. -1 unit RBC transfusion per his request. -Reassess CBC for possible transfusion in 3 weeks when here for next dose of Luspatercept. -Continue Lasix daily. -Continue potassium chloride daily with Lasix. -Continue monitoring blood pressure. -OV/CMP/Iron in 12 weeks. 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 -Had CD5 negative low-grade lymphoproliferative disorder identified by flow cytometry only on original bone marrow aspirate. The clonal cells were lambda light chain restricted. -Has polyneuropathy. Previous MAG antibody testing negative. No progression. -Over time, still nothing to suggest amyloidosis--ie, neuropathy rather limited and has remained stable for several years. Echo 05/2018 was normal. -Recheck on 11/26/2022 demonstrated small incremental increase in serum monoclonal protein. Immunofixation showed IgM kappa and lambda light chain. -I previously reviewed the results of his CT scans in detail. No evidence of cirrhotic morphology of the liver. No ascites. Mild splenomegaly not significantly changed from several years ago. -Recent flow cytometry on the aspirate from 01/08/2023 demonstrated no immunophenotypic evidence of a lymphoproliferative disorder. 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 -Again reviewed this information with him and his . No clinical consequence as of now. Plan: -Recheck early next year. (N28.1) Renal cyst Assessment: -The right lower renal cyst on my personal review of CTs when compared to 05/05/2017 is about 5 mm larger. Plan: -No clear indication for further imaging of this. (E83.111) Iron overload, transfusional Assessment: -Reviewed most recent iron testing including ferritin. -He has had a lot of transfusional support over the last several years and has not had iron chelation. -Discussed iron chelation with him. Renal function is normal as are LFTs. -Reasonable candidate for Exjade. However after review of the risks and benefits, he declined chelation therapy. Plan: -Monitor iron periodically. Portions of this documentation were copied and pasted from previous office visit notes in order to provide a cohesive continuity of the history. The note has been reviewed and edited and updated as necessary. I spent a total of 20 minutes on the date of the service which included preparing to see the patient, [id number] patient care, completing clinical documentation, obtaining and/or reviewing separately obtained history, performing a medically appropriate examination, counseling and educating the patient/family/caregiver, ordering medications, tests, or procedures, communicating with other HCPs (not separately reported), and communicating results to the patient/family/caregiver. Steven A Masci, DO documented in this encounter [facility] 06-23-2023 Miscellaneous Notes Note from pharmacy states tadalafil is not available from health safety engineer and no date when it will be in. Do you want to replace? Ashwin Montenegro LPN documented in this encounter [facility] 06-23-2023 Miscellaneous Notes Patient phones requesting refills as follows: Requested Prescriptions Pending Prescriptions Disp Refills Tadalafil 2.5 mg tab 30 tablet 5 Sig: Take 1 tablet by mouth once daily. LOS 04/03/23 NOV 07/03/23 Please review and advise. Ashwin Montenegro LPN documented in this encounter [facility] 06-12-2023 Nurse Note Pt here for injection of Luspatercept. Given sq in LLQ. Pt tolerated well. For all other information regarding today, see today's OV note with Dr Akers. Sara Milian LPN documented in this encounter [facility] 06-12-2023 History of Present illness Narrative Diagnoses: 1) 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 Transfusion dependent. 5) Sensory neuropathy. HPI: The patient is a 78 yo male who had an unremarkable PMH. Evaluated 06/29/2015 for c/o sore throat, malaise and low grade fever that had been going on for about 2 weeks. Was found to have macrocytic anemia and elevated serum iron and ferritin. Stool hemoccult negative. 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 Declined therapy. Current therapy: 1) Luspatercept. 2) RBC transfusion as indicated. Transferred care to [facility] early 2021. Was treated with Inqovi 04/2022 for about a week, but developed pancytopenia and neutropenic fever requiring hospitalization and transfusional support. However, he didn't require RBC transfusion for several months. Presents for ongoing oncologic management. Interim history: Received 1 unit RBC transfusion a week ago. Over the weekend when getting out of the bed about 2 in the morning he fell forward and hit his head on the linen closet door. Currently no issue there and no bruising. However he he has had pain in the left upper chest that comes and goes but mostly hurts when he tries to lie down. Neuropathy--numbness limited to toes and balls of feet--symptoms fluctuate. PMH, medications and allergies as below personally reviewed by me today. Any changes documented in appropriate section. ROS: Constitutional: No episode of fever, shaking chill and night sweats. Appetite is normal. Neuro: Denies vertigo and imbalance. HEENT: No recent change in voice, vision. Resp: Denies cough, wheeze and hemoptysis. CVS: See above. GI: No dysphagia or odynophagia. No nausea or vomiting. Bowels are working normally. Has occasional diarrhea. Endo: No hot flashes. Musculoskeletal: Denies bone, back, joint and muscular pain. Derm: No rash. Heme: No unusual bleeding or bruising. Psych: Normal mood. PHYSICAL EXAM: Vitals: Blood pressure 126/68, pulse 74, temperature 36.7 C (98 F), temperature source Temporal, resp. rate 12, height 174 cm (5' 8.5), weight 78.7 kg (173 lb 8 oz), SpO2 98 %. Fatigued-appearing and in no acute distress. EYES: Sclerae are slightly icteric bilaterally. NECK: Supple. LYMPHATIC: There is no palpable cervical or supraclavicular adenopathy. RESPIRATORY: Inspiratory breath sounds are of normal intensity in all ariza. No rales, wheezes or rhonchi. CARDIOVASCULAR: Rhythm is regular. Mild systolic murmur. ABDOMEN: The abdomen is distended. There is a mild fluid wave. He has tender splenomegaly but hard to palpate the borders secondary to the tenderness. Extremities: No swelling. Has compression stockings on. SKIN: No jaundice or rash. No petechiae. 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 No focal motor weakness. MS: Tender left ribs below axilla. LABS: Component Latest Ref Rng & Units 03/20/2023 04/03/2023 05/22/2023 06/12/2023 WBC 3.70 - 11.00 k/uL 3.57 (L) 3.42 (L) 3.46 (L) 3.82 RBC 4.20 - 6.00 m/uL 1.94 (L) 2.10 (L) 2.18 (L) 2.37 (L) Hemoglobin 13.0 - 17.0 g/dL 7.2 (L) 7.7 (L) 8.2 (L) 8.6 (L) Hematocrit 39.0 - 51.0 % 21.6 (L) 23.1 (L) 24.2 (L) 26.0 (L) MCV 80.0 - 100.0 fL 111.3 (H) 110.0 (H) 111.0 (H) 109.7 (H) MCH 26.0 - 34.0 pg 37.1 (H) 36.7 (H) 37.6 (H) 36.3 (H) MCHC 30.5 - 36.0 g/dL 33.3 33.3 33.9 33.1 RDW-CV 11.5 - 15.0 % 25.3 (H) 23.5 (H) 26.1 (H) Platelet Count 150 - 400 k/uL 137 (L) 151 154 171 MPV 9.0 - 12.7 fL 12.0 11.5 10.5 10.9 NRBC /100 WBC 0.0 0.0 0.0 0.8 Absolute nRBC <0.01 k/uL <0.01 <0.01 <0.01 0.03 (H) Neut% % 77.0 63.0 72.0 74.6 Abs Neut (ANC) 1.45 - 7.50 k/uL 2.75 2.15 2.49 2.85 Lymph% % 18.0 29.0 20.0 17.8 Abs Lymph 1.00 - 4.00 k/uL 0.64 (L) 0.99 (L) 0.69 (L) 0.68 (L) Nobles% % 2.0 5.0 3.0 4.7 Abs Nobles <0.87 k/uL 0.07 0.17 0.10 0.18 Eosin% % 1.0 0.0 3.0 0.8 Abs Eosin <0.46 k/uL 0.04 0.00 0.10 0.03 Baso% % 0.0 1.0 0.0 0.3 Abs Baso <0.11 k/uL 0.00 0.03 0.00 <0.03 [place]% % 1.0 1.0 1.0 Myelo% % 1.0 1.0 1.0 Left Shift Present Present Present Platelet Estimate Decreased Adequate Adequate Red Cell Morph Reviewed: see results of individual morphologies Reviewed: see results of individual morphologies Reviewed: see results of individual morphologies Polychromasia Slight Slight Anisocytosis Present Present Present Ovalocytes Few Few Few RBC Fragments None Seen Few (A) Few (A) Few (A) Tear Drop Few Few Few DTYPE Manual Manual Manual Auto Immature Gran % % 1.8 IMMATURE GRANS (ABS) <0.10 k/uL 0.07 PATHOLOGY: Bone marrow biopsy 01/08/2023: A-C. Bone marrow, biopsy core, aspirate clot, touch imprint and aspirate smear: - Myelodysplastic syndrome with low blast count and ring sideroblasts. - See comment. D. Peripheral blood smear: - Myelodysplastic syndrome. - See comment. The patient has a history of myelodysplastic syndrome and of monoclonal B cell population associated with an M protein characterized as IgM kappa. The findings in this case consist of pancytopenia associated with a slightly hypercellular bone marrow with numerous ring sideroblasts and hypogranular neutrophils. Flow cytometric immunophenotypic analysis performed on this specimen identified no evidence of an abnormal population. In conclusion, the findings in this case indicate the persistence of the previously diagnosed myelodysplastic syndrome (MDS). Adequate classification requires additional molecular and cytogenetic data, but the differential diagnosis includes MDS with mutated SF3B1 or MDS with multilineage dysplasia in the ICC 2022 classification or, in the WHO 2022 classification MDS with low blasts and SF3B1 mutation or MDS with low blasts. There is no definitive evidence of a low grade lymphoproliferative disorder or of a plasma cell neoplasm. Correlation with molecular and conventional cytogenetic findings is necessary. DIAGNOSIS: 46,XY[20] ASSESSMENT/PLAN: (D46.20) MDS (myelodysplastic syndrome), low grade (HCC) (D53.9) Macrocytic anemia Assessment: -RARS. -IPSS=0 Low risk. -IPSS-R=2 Low risk. 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 -CT from 12/10/2022--Degree of splenomegaly was not significantly worse than it had been. No significant amount of lymphoplasmacytic lymphoma identified on bone marrow biopsy. -He had continued frequent need for red blood cell transfusional support--every 2 to 3 weeks for the past several years. He was intolerant to TREV therapy which caused significant hypertension, headache and pounding tinnitus. He declined further trial of TREV. -Short course of Inqovi summer 2021. He had pancytopenia and neutropenic fever. Declined further therapy with that drug. -Tolerating Luspatercept very well overall. He has had a decrease in frequency of RBC transfusion requirement. Previously was every 2 weeks now every 3 weeks. Recently started highest dose level. -Blood pressure under much better control. -Likely fractured several ribs with recent fall. Plan: -Okay to continue Luspatercept today at 1.75 mg/kg. -Hold on transfusion. -Reassess CBC for possible transfusion in 3 weeks when here for next dose of Luspatercept. -Continue Lasix daily. -Continue potassium chloride daily with Lasix. -Continue monitoring blood pressure. 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 -Had CD5 negative low-grade lymphoproliferative disorder identified by flow cytometry only on original bone marrow aspirate. The clonal cells were lambda light chain restricted. -Has polyneuropathy. Previous MAG antibody testing negative. No progression. -Over time, still nothing to suggest amyloidosis--ie, neuropathy rather limited and has remained stable for several years. Echo 05/2018 was normal. -Recent recheck on 11/26/2022 demonstrated small incremental increase in serum monoclonal protein. Immunofixation showed IgM kappa and lambda light chain. -I reviewed the results of his CT scans in detail. No evidence of cirrhotic morphology of the liver. No ascites. Mild splenomegaly not significantly changed from several years ago. -Recent flow cytometry on the aspirate from 01/08/2023 demonstrated no immunophenotypic evidence of a lymphoproliferative disorder. 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 -Again reviewed this information with him and his . No clinical consequence as of now. Plan: -Will continue to periodically monitor. (N28.1) Renal cyst Assessment: -The right lower renal cyst on my personal review of CTs when compared to 05/05/2017 is about 5 mm larger. Plan: -No clear indication for further imaging of this. (E83.111) Iron overload, transfusional Assessment: -Reviewed most recent iron testing including ferritin. -He has had a lot of transfusional support over the last several years and has not had iron chelation. -Discussed iron chelation with him. Renal function is normal as are LFTs. -Reasonable candidate for Exjade. However after review of the risks and benefits, he declined chelation therapy. Plan: -Monitor iron periodically. Portions of this documentation were copied and pasted from previous office visit notes in order to provide a cohesive continuity of the history. The note has been reviewed and edited and updated as necessary. I spent a total of 20 minutes on the date of the service which included preparing to see the patient, [id number] patient care, completing clinical documentation, obtaining and/or reviewing separately obtained history, performing a medically appropriate examination, counseling and educating the patient/family/caregiver, ordering medications, tests, or procedures, communicating with other HCPs (not separately reported), and communicating results to the patient/family/caregiver. Steven Akers DO documented in this encounter [facility] 06-05-2023 Miscellaneous Notes Patient scheduled for 1 unit PRBC 06/06/2023 @ [facility], [facility]. Orders faxed. Patient and lab aware. Margot Cox LPN documented in this encounter [facility] 05-22-2023 History of Present illness Narrative Diagnoses: 1) 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 Transfusion dependent. 5) Sensory neuropathy. HPI: The patient is a 78 yo male who had an unremarkable PMH. Evaluated 06/29/2015 for c/o sore throat, malaise and low grade fever that had been going on for about 2 weeks. Was found to have macrocytic anemia and elevated serum iron and ferritin. Stool hemoccult negative. 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 Declined therapy. Current therapy: 1) Luspatercept. 2) RBC transfusion as indicated. Transferred care to [facility] early 2021. Was treated with Inqovi 04/2022 for about a week, but developed pancytopenia and neutropenic fever requiring hospitalization and transfusional support. However, he didn't require RBC transfusion for several months. Presents for ongoing oncologic management. Interim history: I actually feel pretty good right now. Doing some outside projects. Rests when needs to. Gets sleepy frequently--calls asleep easily when in his chair. No unusual bleeding or unexplained bruising. Easy bruising. Tolerating Luspatercept well at this point. Takes Lasix as needed. Lately he has noticed that when lying down he will develop supraorbital edema of the eyelid on the dependent side. He often wakes up at night with pounding heart beat and dyspnea. This symptom has been going on for quite a while. Lately he has been sleeping in a recliner because of the eyelid swelling. Neuropathy--numbness limited to toes and balls of feet--symptoms fluctuate. PMH, medications and allergies as below personally reviewed by me today. Any changes documented in appropriate section. ROS: Constitutional: No episode of fever, shaking chill and night sweats. Appetite is normal. Neuro: Denies vertigo and imbalance. HEENT: No recent change in voice, vision. Resp: Denies cough, wheeze and hemoptysis. CVS: See above. GI: No dysphagia or odynophagia. No nausea or vomiting. Bowels are working normally. Has occasional diarrhea. Endo: No hot flashes. Musculoskeletal: Denies bone, back, joint and muscular pain. Derm: No rash. Heme: No unusual bleeding or bruising. Psych: Normal mood. PHYSICAL EXAM: Vitals: Blood pressure 151/75, pulse 104, temperature 36.4 C (97.6 F), weight 79.8 kg (176 lb). Fatigued-appearing and in no acute distress. EYES: Sclerae are slightly icteric bilaterally. NECK: Supple. LYMPHATIC: There is no palpable cervical or supraclavicular adenopathy. RESPIRATORY: Inspiratory breath sounds are of normal intensity in all ariza. No rales, wheezes or rhonchi. CARDIOVASCULAR: Rhythm is regular. Mild systolic murmur. ABDOMEN: The abdomen is distended. There is a mild fluid wave. He has tender splenomegaly but hard to palpate the borders secondary to the tenderness. Extremities: No swelling. Has compression stockings on. SKIN: No jaundice or rash. No petechiae. 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 No focal motor weakness. LABS: Component Latest Ref Rng & Units 05/22/2023 WBC 3.70 - 11.00 k/uL 3.46 (L) RBC 4.20 - 6.00 m/uL 2.18 (L) Hemoglobin 13.0 - 17.0 g/dL 8.2 (L) Hematocrit 39.0 - 51.0 % 24.2 (L) MCV 80.0 - 100.0 fL 111.0 (H) MCH 26.0 - 34.0 pg 37.6 (H) MCHC 30.5 - 36.0 g/dL 33.9 RDW-CV 11.5 - 15.0 % 23.5 (H) Platelet Count 150 - 400 k/uL 154 MPV 9.0 - 12.7 fL 10.5 PATHOLOGY: Bone marrow biopsy 01/08/2023: A-C. Bone marrow, biopsy core, aspirate clot, touch imprint and aspirate smear: - Myelodysplastic syndrome with low blast count and ring sideroblasts. - See comment. D. Peripheral blood smear: - Myelodysplastic syndrome. - See comment. The patient has a history of myelodysplastic syndrome and of monoclonal B cell population associated with an M protein characterized as IgM kappa. The findings in this case consist of pancytopenia associated with a slightly hypercellular bone marrow with numerous ring sideroblasts and hypogranular neutrophils. Flow cytometric immunophenotypic analysis performed on this specimen identified no evidence of an abnormal population. In conclusion, the findings in this case indicate the persistence of the previously diagnosed myelodysplastic syndrome (MDS). Adequate classification requires additional molecular and cytogenetic data, but the differential diagnosis includes MDS with mutated SF3B1 or MDS with multilineage dysplasia in the ICC 2021 classification or, in the WHO 2022 classification MDS with low blasts and SF3B1 mutation or MDS with low blasts. There is no definitive evidence of a low grade lymphoproliferative disorder or of a plasma cell neoplasm. Correlation with molecular and conventional cytogenetic findings is necessary. DIAGNOSIS: 46,XY[20] ASSESSMENT/PLAN: (D46.20) MDS (myelodysplastic syndrome), low grade (HCC) (D53.9) Macrocytic anemia Assessment: -RARS. -IPSS=0 Low risk. -IPSS-R=2 Low risk. 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 -CT from 12/10/2022--Degree of splenomegaly was not significantly worse than it had been. No significant amount of lymphoplasmacytic lymphoma identified on bone marrow biopsy. -He had continued frequent need for red blood cell transfusional support--every 2 to 3 weeks for the past several years. He was intolerant to TREV therapy which caused significant hypertension, headache and pounding tinnitus. He declined further trial of TREV. -Short course of Inqovi summer 2021. He had pancytopenia and neutropenic fever. Declined further therapy with that drug. -Tolerating Luspatercept very well overall. He has had a decrease in frequency of RBC transfusion requirement. Previously was every 2 weeks now every 3 weeks. So reasonable to increase Luspatercept to highest dose increase. -Still with moderate hypertension although blood pressure was taken immediately after he was roomed. -More symptoms related to volume overload. Plan: -Okay for Luspatercept today at 1.75 mg/kg. -Hold on transfusion. -Reassess CBC for possible transfusion in 3 weeks when here for next dose of Luspatercept. -Begin Lasix daily. -Add potassium chloride 20 mill equivalents daily with Lasix. -Continue monitoring blood pressure. 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 -Had CD5 negative low-grade lymphoproliferative disorder identified by flow cytometry only on original bone marrow aspirate. The clonal cells were lambda light chain restricted. -Has polyneuropathy. Previous MAG antibody testing negative. No progression. -Over time, still nothing to suggest amyloidosis--ie, neuropathy rather limited and has remained stable for several years. Echo 05/2018 was normal. -Recent recheck on 11/26/2022 demonstrated small incremental increase in serum monoclonal protein. Immunofixation showed IgM kappa and lambda light chain. -I reviewed the results of his CT scans in detail. No evidence of cirrhotic morphology of the liver. No ascites. Mild splenomegaly not significantly changed from several years ago. -Recent flow cytometry on the aspirate from 01/08/2023 demonstrated no immunophenotypic evidence of a lymphoproliferative disorder. 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 -Again reviewed this information with him and his . No clinical consequence as of now. Plan: -Will continue to periodically monitor. (N28.1) Renal cyst Assessment: -The right lower renal cyst on my personal review of CTs when compared to 05/05/2017 is about 5 mm larger. Plan: -No clear indication for further imaging of this. (E83.111) Iron overload, transfusional Assessment: -Reviewed most recent iron testing including ferritin. -He has had a lot of transfusional support over the last several years and has not had iron chelation. -Discussed iron chelation with him. Renal function is normal as are LFTs. -Reasonable candidate for Exjade. However after review of the risks and benefits, he declined chelation therapy. Plan: -Monitor iron periodically. Portions of this documentation were copied and pasted from previous office visit notes in order to provide a cohesive continuity of the history. The note has been reviewed and edited and updated as necessary. I spent a total of 30 minutes on the date of the service which included preparing to see the patient, [id number] patient care, completing clinical documentation, obtaining and/or reviewing separately obtained history, performing a medically appropriate examination, counseling and educating the patient/family/caregiver, ordering medications, tests, or procedures, communicating with other HCPs (not separately reported), and communicating results to the patient/family/caregiver. Steven Akers DO documented in this encounter [facility] 05-01-2023 Miscellaneous Notes Patient's notified. Margot Cox LPN Please inform pt. that KUB shows: Moderate amount of stool throughout colon. Advise pt. to take miralax daily. Thank you. Sisi Blanchard APRN.KAYLEE documented in this encounter [facility] 05-01-2023 History of Present illness Narrative Study Number: [id number] Study Title: Collection of Blood & Bone Marrow from Normal Volunteers & Patients for Research Purposes Consent expiration date: 01/29/2024 Spoke with patient at the request of Steven Akers D.O. Treatment plan, including all testing, potential risks/benefits, side effects and management, treatment alternatives, and follow-up explained. Roles of the clinical trial personnel to be involved and the financial responsibilities regarding procedures and medications were discussed. Discussed the importance of effective contraception during and following completion of active therapy for NA. Initial questions were answered and a copy of the informed consent was given to patient with the instructions to read it and call with any additional questions. Contact information for the research nurse was given to the patient. The patient verbalized appropriate understanding of all the aforementioned information presented. Time of Presentation: May 01, 2023 at 9:15 AM Dottie Berry RN Research Nurse [facility] [phone] documented in this encounter [facility] 05-01-2023 History of Present illness Narrative Radiology Service Progress Note PATIENT NAME: Loreta Hurst DATE OF SERVICE: May 01, 2023 TIME: 10:10 AM PATIENT IDENTITY VERIFICATION COMPLETED USING TWO (2) IDENTIFIERS: Name and Date of confirmed by patient verbally. FALL SCREENING: Has the patient had 2 falls in the last year or 1 fall with injury or currently using an Ambulatory Assistive Device (Walker, Cane, Wheelchair, Crutches, etc.)? No PATIENT GENDER DATA: Male PATIENT RELEVANT IMPLANT DATA REVIEWED: Not Applicable RADIOLOGY DEPARTMENT: General X-ray: Exam(s) Completed: Abdomen X-Ray: Abdomen PERIPHERAL IV DATA: Not applicable SIGNED BY: RT Jarvis(R) May 01, 2023 10:10 AM documented in this encounter [facility] 05-01-2023 History of Present illness Narrative Pt here for injection of luspatercept. Given sq in right arm (always). Pt tolerated well. For all other information regarding today, see today's OV note with Sisi Blanchard APRN, KAYLEE. documented in this encounter [facility] 05-01-2023 Miscellaneous Notes Patient scheduled for 1 unit PRBC 05/02/2023 @ [facility], [facility]. Orders faxed. Patient and lab aware. Margot Cox LPN documented in this encounter [facility] 05-01-2023 History of Present illness Narrative Chief Complaint Patient presents with: Established Patient HPI: Loreta Hurst is a 77 year old male who presents here today for follow up MDS/eval. for possible treatment today. Per Dr. Akers's previous note: H/o unremarkable PMH. Evaluated 06/29/2015 for c/o sore throat, malaise and low grade fever that had been going on for about 2 weeks. Was found to have macrocytic anemia and elevated serum iron and ferritin. Stool hemoccult negative. 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 Declined therapy. Previous therapy: 1) Periodic RBC transfusion. Transferred care to [facility] early 2021. Was treated with Inqovi 04/2022 for about a week, but developed pancytopenia and neutropenic fever requiring hospitalization and transfusional support. He didn't require RBC transfusion for several months. Current therapy:Luspatercept First dose 02/06/23 Pt. here today with family member. I'm tired. Appetite:Real good. Wt. stable. Energy level:No. Denies fevers. Resp:denies cough or sob at rest, barron with steps/distance walking Cardiac:denies chest pain/palpitations GI:L sided abd pain, occ. nausea-takes zofran with relief, denies vomiting, +constipation-takes magnesium in a.m. senna s in the evening :denies dysuria/hematuria-followed by Urology Extrem:denies pain Neuro:+neuropathy to ankles-stable Skin:denies rashes Heme:denies bleeding The ROS is otherwise negative. Past medical history, appointments, medications, allergies reviewed. No changes. EXAM: BP 141/62 Pulse 66 Temp 36.6 C (97.8 F) (Temporal) Wt 79.4 kg (175 lb) SpO2 95% BMI 26.22 kg/m APPEARANCE fatigued appearing, alert, in no acute distress, well-hydrated, well nourished. HEART RRR with normal S1 and S2, no murmurs LUNG clear to auscultation LYMPH NODES No cervical lymphadenopathy, No supraclavicular lymphadenopathy, and No axillary lymphadenopathy. ABDOMEN bowel sounds normoactive, soft, non-tender EXTREMITIES No edema NEURO Awake, alert and oriented x 3, Normal gait, and No involuntary motions. SKIN Skin color, texture, turgor normal, no suspicious rashes or lesions LABS: Component Latest Ref Rng & Units 04/03/2023 04/10/2023 05/01/2023 WBC 3.70 - 11.00 k/uL 3.42 (L) 3.42 (L) 3.35 (L) RBC 4.20 - 6.00 m/uL 2.10 (L) 2.46 (L) 2.13 (L) Hemoglobin 13.0 - 17.0 g/dL 7.7 (L) 8.9 (L) 8.0 (L) Hematocrit 39.0 - 51.0 % 23.1 (L) 26.7 (L) 23.8 (L) MCV 80.0 - 100.0 fL 110.0 (H) 108.5 (H) 111.7 (H) MCH 26.0 - 34.0 pg 36.7 (H) 36.2 (H) 37.6 (H) MCHC 30.5 - 36.0 g/dL 33.3 33.3 33.6 RDW-CV 11.5 - 15.0 % 24.4 (H) 24.6 (H) Platelet Count 150 - 400 k/uL 151 150 151 MPV 9.0 - 12.7 fL 11.5 11.3 11.4 NRBC /100 WBC 0.0 0.0 Absolute nRBC <0.01 k/uL <0.01 <0.01 Neut% % 63.0 72.0 Abs Neut (ANC) 1.45 - 7.50 k/uL 2.15 2.46 Lymph% % 29.0 20.0 Abs Lymph 1.00 - 4.00 k/uL 0.99 (L) 0.68 (L) Nobles% % 5.0 5.0 Abs Nobles <0.87 k/uL 0.17 0.17 Eosin% % 0.0 1.0 Abs Eosin <0.46 k/uL 0.00 0.03 Baso% % 1.0 0.0 Abs Baso <0.11 k/uL 0.03 0.00 [place]ell% % 1.0 1.0 Myelo% % 1.0 1.0 Left Shift Present Present Platelet Estimate Adequate Adequate Red Cell Morph Reviewed: see results of individual morphologies Reviewed: see results of individual morphologies Polychromasia Slight Slight Anisocytosis Present Present Ovalocytes Few Few RBC Fragments None Seen Few (A) Few (A) Tear Drop Few Few DTYPE Manual Manual ASSESSMENT/PLAN: 1. MDS (myelodysplastic syndrome), low grade (HCC) - ICD9: 238.72, ICD10: D46.Z (primary diagnosis) 2. Pancytopenia (HCC) - ICD9: 284.19, ICD10: D61.818 He has required RBC transfusional support every 2-3 weeks for the past several years and was intolerant to TREV therapy which caused significant hypertension, headache and pounding tinnitus. - Overall tolerating luspatercept well. - Reviewed CBC with pt. - Transfusion support when needed. - Transfuse [address] Akers's order. - Proceed as scheduled today for luspatercept. - Follow up as scheduled. - Pt. aware to call office with any questions/concerns. The patient indicates understanding of these issues and agrees with the plan. Discussed case with Dr. Akers who agrees with treatment plan. All documentation from previous visit of 04/10/23-Dr. Akers/myself was copied and pasted, documentation has been reviewed and edited as necessary for today's visit. Sisi Blanchard APRN.KAYLEE documented in this encounter [facility] 04-10-2023 Miscellaneous Notes Summary: AVS 04/10 Check out comments: - Proceed as scheduled today for luspatercept. - Follow up as scheduled. - Pt. aware to call office with any questions/concerns. documented in this encounter [facility] 04-10-2023 History of Present illness Narrative Luspatercept, injection administered, right arm, tolerated well, no immediate adverse reactions noted. See office notes. Domonique López LPN documented in this encounter [facility] 04-10-2023 History of Present illness Narrative Chief Complaint Patient presents with: Established Patient HPI: Loreta Hurst is a 77 year old male who presents here today for evaluation for treatment today. Per Dr. Akers's previous note: H/o unremarkable PMH. Evaluated 06/29/2015 for c/o sore throat, malaise and low grade fever that had been going on for about 2 weeks. Was found to have macrocytic anemia and elevated serum iron and ferritin. Stool hemoccult negative. 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 Declined therapy. Previous therapy: 1) Periodic RBC transfusion. Transferred care to [facility] early 2021. Was treated with Inqovi 04/2022 for about a week, but developed pancytopenia and neutropenic fever requiring hospitalization and transfusional support. He didn't require RBC transfusion for several months. Current therapy:Luspatercept First dose 02/06/23 Pt. here today with daughter. No new concerns today. Appetite:Real good. Wt. down 2# since March 20. Energy level:Low. Denies fevers. Resp:denies cough or sob at rest, barron with steps Cardiac:denies chest pain/palpitations GI:denies abd pain, occ. nausea-takes zofran with relief, denies vomiting, moving bowels regularly :denies dysuria/hematuria-followed by Urology Extrem:denies pain Neuro:+neuropathy to ankles-stable Skin:denies rashes Heme:denies bleeding The ROS is otherwise negative. Past medical history, appointments, medications, allergies reviewed. No changes. EXAM: BP 130/62 Pulse 70 Temp 36.6 C (97.8 F) (Tympanic) Wt 79.2 kg (174 lb 8 oz) BMI 26.15 kg/m APPEARANCE Fatigued appearing, alert, in no acute distress, well-hydrated, well nourished. HEART RRR with normal S1 and S2, no murmurs LUNG clear to auscultation LYMPH NODES No cervical lymphadenopathy, No supraclavicular lymphadenopathy, and No axillary lymphadenopathy. ABDOMEN bowel sounds normoactive, soft, non-tender EXTREMITIES No edema NEURO Awake, alert and oriented x 3, Normal gait, and No involuntary motions. SKIN Skin color, texture, turgor normal, no suspicious rashes or lesions LABS: Component Latest Ref Rng & Units 03/20/2023 04/03/2023 04/10/2023 WBC 3.70 - 11.00 k/uL 3.57 (L) 3.42 (L) 3.42 (L) RBC 4.20 - 6.00 m/uL 1.94 (L) 2.10 (L) 2.46 (L) Hemoglobin 13.0 - 17.0 g/dL 7.2 (L) 7.7 (L) 8.9 (L) Hematocrit 39.0 - 51.0 % 21.6 (L) 23.1 (L) 26.7 (L) MCV 80.0 - 100.0 fL 111.3 (H) 110.0 (H) 108.5 (H) MCH 26.0 - 34.0 pg 37.1 (H) 36.7 (H) 36.2 (H) MCHC 30.5 - 36.0 g/dL 33.3 33.3 33.3 RDW-CV 11.5 - 15.0 % 25.3 (H) 24.4 (H) Platelet Count 150 - 400 k/uL 137 (L) 151 150 MPV 9.0 - 12.7 fL 12.0 11.5 11.3 NRBC /100 WBC 0.0 0.0 Absolute nRBC <0.01 k/uL <0.01 <0.01 Neut% % 77.0 63.0 Abs Neut (ANC) 1.45 - 7.50 k/uL 2.75 2.15 Lymph% % 18.0 29.0 Abs Lymph 1.00 - 4.00 k/uL 0.64 (L) 0.99 (L) Nobles% % 2.0 5.0 Abs Nobles <0.87 k/uL 0.07 0.17 Eosin% % 1.0 0.0 Abs Eosin <0.46 k/uL 0.04 0.00 Baso% % 0.0 1.0 Abs Baso <0.11 k/uL 0.00 0.03 [place]adell% % 1.0 1.0 Myelo% % 1.0 1.0 Left Shift Present Present Platelet Estimate Decreased Adequate Red Cell Morph Reviewed: see results of individual morphologies Reviewed: see results of individual morphologies Polychromasia Slight Anisocytosis Present Present Ovalocytes Few Few RBC Fragments None Seen Few (A) Few (A) Tear Drop Few Few DTYPE Manual Manual ASSESSMENT/PLAN: 1. MDS (myelodysplastic syndrome), low grade (HCC) - ICD9: 238.72, ICD10: D46.Z (primary diagnosis) 2. Pancytopenia (HCC) - ICD9: 284.19, ICD10: D61.818 He has required RBC transfusional support every 2-3 weeks for the past several years and was intolerant to TREV therapy which caused significant hypertension, headache and pounding tinnitus. - Overall tolerating luspatercept well. - Reviewed CBC with pt. - Transfusion support when needed. - Proceed as scheduled today for luspatercept. - Follow up as scheduled. - Pt. aware to call office with any questions/concerns. The patient indicates understanding of these issues and agrees with the plan. All documentation from previous visit of 03/20/23-Dr. Akers/myself was copied and pasted, documentation has been reviewed and edited as necessary for today's visit. Sisi Blanchard APRN.AERIAL ERECTOR documented in this encounter [facility] 04-09-2023 Miscellaneous Notes Left detailed message for and patient that was approved today. Advised them to contact pharmacy to run though insurance for them. Rep from [employer] called again today. After the Appeal process the Relistor medication is approved, good until 11-09-23. Information will also be sent to the provider. Ashwin Ghosh calling from [employer], reports Relistor was denied as previously reports. [employer] received another copy with different answers to PA, asking if this is an appeal. Received on Friday, only have 7 days for an appeal from date and time received. [employer] Time is going to run as an appeal will notify office with response. Kim Jeff LPN documented in this encounter [facility] 03-20-2023 Miscellaneous Notes Pt. Scheduled for transfusion 1 unit packed cells @ [facility] 03/21 @ 11 am.Pt, and lab notified, orders faxed. Domonique López LPN documented in this encounter [facility] 03-20-2023 Nurse Note Luspatercept injection administered, right arm (only) tolerated well, no immediate adverse reactions noted. SEE OFFICE NOTES Domonique López LPN documented in this encounter [facility] 03-12-2023 Miscellaneous Notes KAY received fax this date from [facility] pt has been approved for free Reblozyl through 11/09/2023. KAY updated pharmacy and sent fax to internal scanning. SIA Cason-S documented in this encounter [facility] 03-07-2023 Discharge summary Note Date/Time March 07, 2023 4:59pm [facility] Medical Records Department [address] [place] [address] Emergency Department Summary 03/07/23 MR#: [id number] Acct: [id number] Name: LORETA HURST Rep #:[id number] : 1945 77 From: Chaim Garcia MD PCP: MENDEL Markham Status:REG E R Location: ED HPI HPI - GI History of Present Illness Chief Complaint: Abd Pain Detail of Chief Complaint: Left upper quadrant abdominal pain since yesterday morning. Informant: patient and spouse/S.O. Abdominal Pain/Flank Pain Onset: Yesterday Context: Sudden Onset Timing: Continuous Quality: Aching Location: LUQ Current Severity: Moderate Maximum Severity: Moderate Worsened by: Nothing Relieved by: Nothing Nausea/Vomiting/Emesis GI Symptom: Negative for Nausea or Vomiting Diarrhea/Melena/Hematochezia GI Symptom: Negative for Diarrhea, Melena or Hematochezia Associated Symptoms Associated Symptoms: Negative for Dysuria, Frequency, Hematuria or Urgency Narrative Narrative: 69-year-old male history of myelodysplastic syndrome and cancer. Received bloodtransfusion yesterday. His only prior abdominal surgery was umbilical hernia repair. States since yesterday morning he has had left upper quadrant abdominalpain come on relatively suddenly. Denies nausea or vomiting. He has had a low-grade temperature 99.3 for several days. Denies any dysuria. No history of diverticulitis. He does have constipation but has been having bowel movements. Prior similar symptoms: No Recent Illness/Hospitalization: No PFSH PFSH Medical History Encounter for education [place] MDS (myelodysplastic syndrome) Myelodysplastic syndrome Pancytopenia Secondary pulmonary arterial hypertension Sensory neuropathy Thrombocytopenia Home Medications montelukast 10 mg tablet 10 mg PO QHS allergies 08/24/18 [History Last Taken 05/08/22] omeprazole 20 mg capsule,delayed release 40 mg PO DAILY GERD 08/24/18 [History Last Taken 05/09/22] pyridoxine (vitamin B6) 100 mg tablet 100 mg PO DAILY supplement 08/24/18 [History Last Taken 05/09/22] calcium carbonate 500 mg calcium (1,250 mg) tablet 500 mg PO DAILY supplement 05/30/20 [History Last Taken 05/09/22] cholecalciferol (vitamin D3) 50 mcg (2,000 unit) capsule 5,000 unit PO DAILY supplement 05/30/20 [History Last Taken 05/09/22] tadalafil 2.5 mg tablet 2.5 mg PO DAILY blood pressure 07/28/20 [History Last Taken 05/09/22] tramadol 50 mg tablet (Ultram) 50 mg PO TID pain 08/13/21 [History Last Taken 05/09/22] ondansetron 4 mg disintegrating tablet 4 mg PO Q8H PRN nausea and vomiting #30 tabs 04/17/22 [Rx Last Taken Unknown] losartan 25 mg tablet 25 mg PO DAILY #90 tabs 04/26/22 [Rx Last Taken 05/09/22] doxazosin 4 mg tablet 4 mg PO QHS bladder 05/01/22 [History Last Taken 05/08/22] sennosides 8.6 mg tablet (senna) 17.2 mg PO BID constipation 05/09/22 [History Last Taken 05/09/22] folic acid 400 mcg tablet 0.4 mg PO DAILY #90 tabs 09/05/22 [Rx Last Taken Unknown] magnesium hydroxide 1,200 mg chewable tablet (Dulcolax (magnesium hydroxide)) 1,200 mg PO DAILY PRN Constipation 10/10/22 [History Last Taken Unknown] quercetin 500 mg capsule 500 mg PO DAILY 10/10/22 [History Last Taken Unknown] furosemide 40 mg tablet (Lasix) 40 mg PO DAILY PRN Edema 01/09/23 [History Last Taken Unknown] luspatercept-aamt 75 mg subcutaneous solution 25 mg subcut Q3W 02/17/23 [History Last Taken Unknown] Allergy/AdvReac Type Severity Reaction Status Date / Time levofloxacin [From [facility]] Allergy Other Verified 03/07/23 16:01 remdesivir Allergy Other Verified 03/07/23 16:01 sulfamethoxazole AdvReac Other Verified 03/07/23 16:01 [From Bactrim] trimethoprim [From Bactrim] AdvReac Other Verified 03/07/23 16:01 Family History Sister Colon cancer Bleeding disorder Mother Heart disease Diabetes Father CVA (cerebral vascular accident), Onset Age: 95 Surgical History History of bone marrow biopsy History of hernia repair Social History household members: spouse Smoking Status: Former smoker alcohol intake: never substance use type: does not use caffeine: Yes Type: coffee Number of servings: 3 what type of physical activity do you participate in: none genesis/mormon: Taoist seatbelt use: always do you feel safe at home: Yes ROS ROS ED ROS Narrative Abdominal pain. Constipation. Review of Systems ROS Unobtainable: Denies due to encephalopathy Constitutional Constitutional ED: Reports fever(s) and subjective; Denies chills ENT ENT ED: Denies ear pain Cardiovascular Cardiovascular: Denies chest pain Respiratory/Chest Respiratory/Chest: Denies cough or dyspnea Gastrointestinal Gastrointestinal: Reports abdominal pain and constipation; Denies diarrhea, melena, nausea or vomiting Genitourinary Genitourinary ED: Denies dysuria or hematuria Musculoskeletal Musculoskeletal: Denies arthralgias Integumentary Denies abscess Neurologic Neurologic: Denies headache(s) Psychiatric Psychiatric: Denies anxiety Endocrine Endocrinology: Denies polydipsia or polyphagia Hematologic/Lymphatic Hematologic/Lymphatic: Denies easy bleeding Allergic/Immunologic Allergic/Immunologic ED: Denies mouth swelling EXAM Physical Exam Narrative Exam Narrative: Male no acute distress. Vital signs stable afebrile. Temperature 97.2. He does not look septic or toxic. No distress. at bedside. H EENT exam unremarkable. Neck nontender. Lungs clear to auscultation. Heart regular rhythm rate about 75 no murmur. Chest nontender. Abdomen soft nondistended normal bowel sounds no peritoneal signs. Mild left upper quadrant tenderness. No rebound guarding rigidity. Right upper right lower quadrant unremarkable. No hernia or mass. No distention or signs of obstruction. No pulsatile mass. Soft. Moving all 4 extremities. Nontender no edema. Const Vital Signs: 03/07/23 15:58 Temperature 97.2 F L Temperature Source Temporal Pulse Rate 76 Respiratory Rate 18 Blood Pressure 155/71 H Blood Pressure Mean 99 Pulse Ox 98 Oxygen Delivery Method Room Air Positive well nourished and well developed; Negative for obese, cachectic, contractures or unkempt General Appearance ED: well developed and NAD; Negative for unkempt, cachectic, contractures or pallor Nutritional Appearance: Negative for cachectic or obese HEENT Reports moist mucous membranes normocephalic and atraumatic; Negative for trauma or tenderness Eyes PERRL and EOMs intact bilaterally General Eye ED: Negative for pale conjunctiva or scleral icterus Neck no lymphadenopathy, supple and no JVD General: Negative for tenderness Carotids: Negative for other Lymph Lymphatic: Negative for other Resp normal respiratory effort and clear to auscultation bilaterally Effort and Inspection: Negative for respiratory distress Auscultation: Negative for rales, rhonchi or wheezes Cardio regular rate, regular rhythm, S1 normal heart sound, S2 normal heart sound and no murmurs Rate: Negative for bradycardia or tachycardic Rhythm: Negative for abnormal rhythm GI non-distended and no masses; Negative for non-tender GI Narrative: Mild left upper quadrant tenderness. No peritoneal signs. No mass. No obstruction. Right upper and right lower quadrants are unremarkable. Inspection: Negative for abdominal distention Auscultation: normoactive bowel sounds Palpation: soft and tender; Negative for guarding or rigid Back/Spine no CVA tenderness General Back: Negative for CVA tenderness Cervical Spine: Negative for cervical spine tenderness Thoracic Spine / Upper Back: Negative for thoracic spinal tenderness Lumbar Spine / Lower Back: Negative for lumbar spinal tenderness Neuro CN's II-XII intact bilaterally and moves all extremities Sensorium / Orientation: alert, oriented to person, oriented to place and oriented to time; Negative for orientation impaired, confused, lethargic or stuporous Motor Exam: strength 5/5 throughout Psych mental status grossly normal and thought process normal Appearance: Negative for unkempt Attitude: No agitated Mood & Affect: Negative for depressed, anxious or tearful Skin no wounds General Skin Exam: Negative for jaundice or pallor Lesions: no lesions Rashes: no rashes Trauma: Negative for abrasion Nails: Negative for discolored MDM MDM MDM Narrative Medical decision making narrative: Patient with left upper quadrant abdominal pain. Benign exam. CAT scan and labs will be obtained. Repeat exam patient doing well at 6:30 PM. He has very minimal tenderness. We went over his CAT scan and lab results were basically his baseline. He has mildsplenomegaly. He has no signs of infection, perforation or obstruction. There is no significant signs of a significant amount of constipation. He and his are comfortable with him being discharged home. Tylenol for pain. Plenty of fluids. Rest. Follow-up as needed or return if worse. History & Record Review Discussion w/independent historian: Patient and Family Additional record(s) reviewed:: Prior inpatient record, Prior outpatient record,Prior ED visit and Prior labs Lab Data Attestation: I reviewed the patient's lab results. Lab results narrative: CBC shows white count 3.8. H&H 8.2 and 25.1. Has a history of chronic anemia from myelodysplastic syndrome. This is his baseline. Platelets 171. Chemistries unremarkable gap of 3. Normal BUN of 12 creatinine 0.8. Glucose 120. Liver enzymes are normal. Urinalysis is negative. Lipase is normal at 39. Basically his labs are his normal baseline with a chronic anemia. CAT scan pelvis shows splenomegaly which is chronic and no acute process as readby the radiologist. Reviewed by me.. Labs: Laboratory Results - last 24 hr 03/07/23 03/07/23 03/07/23 16:38 16:38 16:38 WBC 3.8 L RBC 2.36 L Hgb 8.2 L Hct 25.1 L MCV 106.4 H MCH 34.7 H MCHC 32.7 RDW Std Deviation 92.0 H RDW Coeff of Jcarlos 25.2 H Plt Count 171 MPV 11.7 Immature Gran % (Auto) 3.500 H Neut % (Auto) 71.1 H Lymph % (Auto) 17.9 L Nobles % (Auto) 5.9 Eos % (Auto) 1.1 Baso % (Auto) 0.5 Absolute Neuts (auto) 2.7 Absolute Lymphs (auto) 0.67 L Nucleated RBC % 0.8 Platelet Estimate ADEQUATE RBC Morphology N CHROM Hypochromasia 1+ Anisocytosis 1+ Macrocytosis 1+ Sodium 137 Potassium 4.2 Chloride 106 Carbon Dioxide 28.0 Anion Gap 3 L BUN 12 Creatinine 0.80 Estim Creat Clear Calc 78.58 Est GFR (MDRD) Af Amer 119 Est GFR (MDRD) Non-Af 99 BUN/Creatinine Ratio 14.9 Glucose 120 H Calcium 9.1 Total Bilirubin 1.40 H AST 24 ALT 45 Alkaline Phosphatase 88 Total Protein 6.6 Albumin 3.8 Globulin 2.8 Albumin/Globulin Ratio 1.4 Lipase Urine Color Yellow Urine Clarity Clear Urine pH 7.0 Ur Specific [place] 1.010 Urine Protein Negative Urine Glucose (UA) Normal Urine Ketones Negative Urine Occult Blood Negative Urine Nitrite Negative Urine Bilirubin Negative Urine Urobilinogen Normal Ur Leukocyte Esterase Negative Urine RBC 0 SEEN Urine WBC 0 SEEN Ur Squamous Epith Cells 0 SEEN Urine Bacteria 0 SEEN Urine Mucus 0 SEEN 03/07/23 16:38 WBC RBC Hgb Hct MCV MCH MCHC RDW Std Deviation RDW Coeff of Jcarlos Plt Count MPV Immature Gran % (Auto) Neut % (Auto) Lymph % (Auto) Nobles % (Auto) Eos % (Auto) Baso % (Auto) Absolute Neuts (auto) Absolute Lymphs (auto) Nucleated RBC % Platelet Estimate RBC Morphology Hypochromasia Anisocytosis Macrocytosis Sodium Potassium Chloride Carbon Dioxide Anion Gap BUN Creatinine Estim Creat Clear Calc Est GFR (MDRD) Af Amer Est GFR (MDRD) Non-Af BUN/Creatinine Ratio Glucose Calcium Total Bilirubin AST ALT Alkaline Phosphatase Total Protein Albumin Globulin Albumin/Globulin Ratio Lipase 39 Urine Color Urine Clarity Urine pH Ur Specific [place] Urine Protein Urine Glucose (UA) Urine Ketones Urine Occult Blood Urine Nitrite Urine Bilirubin Urine Urobilinogen Ur Leukocyte Esterase Urine RBC Urine WBC Ur Squamous Epith Cells Urine Bacteria Urine Mucus Radiography Diagnostic Testing: Clinical Impression(s) from Imaging Studies Abdomen/Pelvis CT 03/07/23 16:54 IMPRESSION: Stable moderate splenomegaly. No acute abnormalities are identified. There has been no significant change from the reference examination. Electronically Signed: Odell Ibrahim MD at 17:33 EDT , Discharge Plan Triage Chief Complaint: Abd Pain ED Provider: Chaim Garcia Dx/Rx/DC Orders Clinical Impression: Abdominal pain, Waldenstrom macroglobulinemia, Myelodysplastic syndrome Instructions: Abdominal Pain Prescriptions: No Action tramadol [Ultram] 50 mg tablet 50 mg PO TID Label Comments: TAKE 1 TABLET BY MOUTH EVERY 6 HOURS NEEDED FOR PAIN losartan 25 mg tablet 25 mg PO DAILY Qty: 90 3RF ondansetron 4 mg tablet,disintegrating 4 mg PO Q8H PRN (Reason: nausea and vomiting) Qty: 30 2RF folic acid 400 mcg tablet 0.4 mg PO DAILY Qty: 90 3RF quercetin 500 mg capsule 500 mg PO DAILY Dulcolax (magnesium hydroxide) 1,200 mg tablet,chewable 1,200 mg PO DAILY PRN (Reason: Constipation) luspatercept-aamt 75 mg recon soln 25 mg subcut Q3W omeprazole 20 MG capsule 40 mg PO DAILY montelukast 10 MG tablet 10 mg PO QHS pyridoxine (vitamin B6) 100 MG tablet 100 mg PO DAILY calcium carbonate 500 MG tablet 500 mg PO DAILY cholecalciferol (vitamin D3) 2,000 UNIT capsule 5,000 unit PO DAILY tadalafil 2.5 MG tablet 2.5 mg PO DAILY doxazosin 4 mg tablet 4 mg PO QHS sennosides [senna] 8.6 mg Tablet 17.2 mg PO BID furosemide [Lasix] 40 mg tablet 40 mg PO DAILY PRN (Reason: Edema) Primary Care Provider: uSnday Carter Referrals: Sunday Carter PA [Primary Care Provider] - 1 Week if not improving Activity Restrictions/Additional Instructions: Tylenol for pain. Your labs and CAT scan were basically unremarkable. Follow-up with your primary care provider if not improving. Disposition Disposition: Home, Self Care What to do if you have Problems For any increased pain, shortness of breath, bleeding, nausea or vomiting, chestpain, or any unexpected problems, contact your Primary Care Provider. Call [facility] ([phone]) or report to the closest Emergency Room. Call 911 if necessary. 03/07/231844 <Electronically signed by Chaim Garcia MD> Cosigner Signature (if applicable): CC: MENDEL Carter ~ Signed [facility] Work Phone: [phone] 852-136104-28-2023 Miscellaneous Notes* Telephone Encounter - SIA Cason - 03/07/2023 8:26 AM EDT Prescription faxed to [facility] this date. MARIAJOSE Cason * Telephone Encounter - SIA Cason - 03/06/2023 12:07 PM EDT SW called [employer] to obtain an update on pt's assistance application. Rep reports they are inneed of printed prescription for Luspatercept. Can you please include enough refills for a year? Thank you, MARIAJOSE Cason documented in this encounterHigh[facility]04-27-2023 Miscellaneous Notes* Telephone Encounter - Domonique López LPN - 03/06/2023 1:41 PM EDT Order for Luspatercept Please sign , goes to licensed master social worker Domonique López LPN documented in this encounterHigh[facility] Hospital04-27-2023 Miscellaneous Notes* Telephone Encounter - Margot Cox LPN - 03/06/2023 12:49 PM EDT Noted. Margot Cox LPN * Telephone Encounter - Florecita Preston Pss - 03/06/2023 12:32 PM EDT Spouse states she was to inform office that patient is aware of transfusion tomorrow. documented in this encounterHighland [facility] Hospital04-27-2023 Miscellaneous Notes* Telephone Encounter - Margot Cox LPN - 03/06/2023 12:27 PM EDT Patient scheduled for 1 unit PRBC 03/07/2023 @ 12:30, [facility]. Orders faxed. Lab aware. I left a message on patient's identified VM both at home and cell asking patient to contact office to confirm receipt of message. Margot Cox LPN documented in this encounterHighland [facility] Hospital04-20-2023 Nurse Note* Domonique López LPN - 02/27/2023 11:28 AM EDT Luspatercept injection administered, right arm,tolerated well, no immediate adverse reactions noted. See office notes. Domonique López LPN documented in this encounterHighland [facility]04-20-2023 History of Present illness Narrative* Sisi Blanchard APRN.AERIAL ERECTOR - 02/27/2023 10:22 AM EDT Chief Complaint Patient presents with: Established Patient HPI: Loreta Hurst is a 77 year old male who presents here today for evaluation for treatment today. Per Dr. Akers's previous note: H/o unremarkable PMH. Evaluated 06/29/2015 for c/o sore throat, malaise and low grade fever that hadbeen going on for about 2 weeks. Was found to have macrocytic anemia and elevated serum iron and ferritin. Stool hemoccult negative. 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 Declined therapy. Previous therapy: 1) Periodic RBC transfusion. Transferred care to [facility] early 2021. Was treated with Inqovi 04/2022 for about a week, but developed pancytopenia and neutropenic fever requiring hospitalization and transfusional support. He didn't require RBC transfusion for several months. Current therapy:Luspatercept First dose 02/06/23 Pt. here today with family member. He has had episodes of lightheadedness. Seen by cardiology awaiting a heart monitor to wear for a month. No other new concerns. Appetite:Too good. Energy level:Fair. Denies fevers. Resp:denies cough or sob Cardiac:denies chest pain/occ. palpitations GI:denies abd pain, occ. nausea-takes zofran, denies vomiting, moving bowels regularly :denies dysuria/hematuria Extrem:chronic low back/hips-followed by Dr. Traore-david mitchell, denies new pain Neuro:+neuropathy feet-stable Skin:denies rashes Heme:denies bleeding The ROS is otherwise negative. Past medical history, appointments, medications, allergies reviewed. No changes. EXAM: BP 139/64 Pulse 71 Temp 36.8 C (98.2 F) Ht 174 cm (5' 8.5) Wt 78.5 kg (173 lb) SpO2 99% BMI 25.92 kg/m APPEARANCE Well appearing, alert, in no acute distress, well-hydrated, well nourished. HEART RRR with normal S1 and S2, no murmurs LUNG clear to auscultation LYMPH NODES No cervical lymphadenopathy, No supraclavicular lymphadenopathy, and No axillary lymphadenopathy. ABDOMEN bowel sounds normoactive, soft, non-tender EXTREMITIES No edema NEURO Awake, alert and oriented x 3, Normal gait, and No involuntary motions. SKIN Skin color, texture, turgor normal, no suspicious rashes or lesions LABS: Component Latest Ref Rng & Units 02/06/2023 02/13/2023 02/20/2023 02/27/2023 WBC 3.70 - 11.00 k/uL 3.38 (L) 5.86 4.37 3.71 RBC 4.20 - 6.00 m/uL 2.42 (L) 2.71 (L) 2.51 (L) 2.29 (L) Hemoglobin 13.0 - 17.0 g/dL 8.3 (L) 9.5 (L) 8.9 (L) 8.1 (L) Hematocrit 39.0 - 51.0 % 24.8 (L) 27.4 (L) 26.3 (L) 24.1 (L) MCV 80.0 - 100.0 fL 102.5 (H) 101.1 (H) 104.8 (H) 105.2 (H) MCH 26.0 - 34.0 pg 34.3 (H) 35.1 (H) 35.5 (H) 35.4 (H) MCHC 30.5 - 36.0 g/dL 33.5 34.7 33.8 33.6 RDW-CV 11.5 - 15.0 % 20.2 (H) 20.9 (H) 22.5 (H) 23.8 (H) Platelet Count 150 - 400 k/uL 145 (L) 198 149 (L) 150 MPV 9.0 - 12.7 fL 11.5 11.3 11.5 10.6 Neut% % 74.3 79.0 72.7 74.1 Abs Neut (ANC) 1.45 - 7.50 k/uL 2.51 4.62 3.18 2.75 Lymph% % 19.5 13.3 19.9 18.6 Abs Lymph 1.00 - 4.00 k/uL 0.66 (L) 0.78 (L) 0.87 (L) 0.69 (L) Nobles% % 4.4 5.6 4.8 4.6 Abs Nobles <0.87 k/uL 0.15 0.33 0.21 0.17 Eosin% % 0.9 0.3 0.7 0.8 Abs Eosin <0.46 k/uL 0.03 <0.03 0.03 0.03 Baso% % 0.3 0.3 0.5 0.3 Abs Baso <0.11 k/uL <0.03 <0.03 <0.03 <0.03 Immature Gran % % 0.6 1.5 1.4 1.6 IMMATURE GRANS (ABS) <0.10 k/uL <0.03 0.09 0.06 0.06 NRBC /100 WBC 0.0 0.7 0.5 0.8 Absolute nRBC <0.01 k/uL <0.01 0.04 (H) 0.02 (H) 0.03 (H) DTYPE Auto Auto Auto Auto Component Latest Ref Rng & Units 11/26/2022 02/06/2023 02/27/2023 Protein, Total 6.3 - 8.0 g/dL 6.5 6.4 6.6 Albumin 3.9 - 4.9 g/dL 4.8 4.5 4.3 Calcium 8.5 - 10.2 mg/dL 9.8 9.3 9.2 Bilirubin, Total 0.2 - 1.3 mg/dL 1.1 1.0 1.2 Alkaline Phosphatase 38 - 113 U/L 75 74 82 AST 14 - 40 U/L 22 25 25 ALT 10 - 54 U/L 24 34 34 Glucose 74 - 99 mg/dL 90 150 (H) 102 (H) BUN 9 - 24 mg/dL 11 13 12 Creatinine 0.73 - 1.22 mg/dL 0.75 0.71 (L) 0.74 Sodium 136 - 144 mmol/L 138 137 137 Potassium 3.7 - 5.1 mmol/L 4.0 3.9 4.0 Chloride 97 - 105 mmol/L 102 104 101 CO2 22 - 30 mmol/L 27 27 27 Anion Gap 9 - 18 mmol/L 9 6 (L) 9 eGFR >=60 mL/min/1.73m 92 94 93 ASSESSMENT/PLAN: 1. MDS (myelodysplastic syndrome), low grade (HCC) - ICD9: 238.72, ICD10: D46.Z - He has required RBC transfusional support every 2-3 weeks for the past several years and was intolerant to TREV therapy which caused significant hypertension, headache and pounding tinnitus. - Overall tolerated first dose of luspatercept well. - Reviewed labs with pt. and spouse. - Will hold off on transfusion today-pt. agreeable. - Proceed as scheduled today for luspatercept. - Follow up with cardiology. - Follow up as scheduled. - Pt. aware to call office with any questions/concerns. The patient indicates understanding of these issues and agrees with the plan. Discussed case with Dr. Akers who agrees with treatment plan. All documentation from previous visit of 01/24/2023-Dr. Akers was copied and pasted, documentation has been reviewed and edited as necessary for today's visit. Sisi Blanchard APRN.KAYLEE documented in this encounterHighland [facility] Hospital04-12-2023 Miscellaneous Notes* Telephone Encounter - SIA Cason - 02/19/2023 1:25 PM EDT Assistance application through [employer] drafted to review with pt tomorrow. SIA Cason-S documented in this encounterHighland [facility] Hospital04-06-2023 Miscellaneous Notes* Telephone Encounter - Margot Cox LPN - 02/13/2023 12:26 PM EDT Information faxed to Dr. Cast's office. Patient to call for appointment. Margot Cox LPN * Telephone Encounter - Margot Cox LPN - 02/13/2023 12:11 PM EDT BP 126/61, HR 66. Patient is established with Dr. Cast at [facility]. Once EKG is complete, I will fax this note and the EKG to their office. Patient was advised to contact Dr. Cast's office for an appointment. Margot Cox LPN * Telephone Encounter - Steven Akers DO - 02/13/2023 12:06 PM EDT Let's get a set of vitals and an EKG. Referral to cardiology if not already established with one. Steven Akers DO * Telephone Encounter - Margot Cox LPN - 02/13/2023 11:43 AM EDT Patient here for labs. Had Lustpatercept 02/06/2023. Patient states this morning he had an episode. Patient was in shower and c/o feeling faint/low energy, had to call out for his to help him. Patient denied having any chest pain, SOB, N/V, dizziness, numbness or tingling this morning during or after episode. Patient's took vitals- BP 120/55, 131/56 and 129/61, HR 47-51. Patient's HR usually runs in the 60's when he is here. Patient also states that twice since last week's injection he's had episodes of tingling down both arms and feeling tired (low energy). Patient did note he took a dose of Lasix yesterday. Patient is wondering if Lustpatercept is causing these episodes. Nothing I read stated any of these symptoms except fatigue. Patient is in lobby. Margot Cox LPN documented in this encounterHighland [facility] Hospital04-03-2023 Miscellaneous Notes* Telephone Encounter - Subhash Napier - 02/10/2023 12:17 PM EDT This is a 1st-time treatment report for this patient. The patient is being seen for a [id number] diagnosis of Anemia. This is a Non-Oncology regimen. There is no assistance available for insured patients. An estimate was run for the cost of this treatment and it came up as a $0.00 [id number] cost for the patient. No Financial Navigator assessment is needed at this time. documented in this encounterHighland [facility] Hospital03-30-2023 Miscellaneous Notes* Telephone Encounter - Domonique López LPN - 02/06/2023 11:02 AM EDT Patient has been identified by name and date of : Yes Requested Prescriptions Pending Prescriptions Disp Refills folic acid 1 mg tablet 90 tablet 3 Sig: Take 1 tablet by mouth once daily. RX INSTRUCTIONS: Patient aware RX will be sent to pharmacy. No need to notify patient. Doomnique López LPN documented in this encounterHighland District Hospital03-30-2023 Nurse Note* Domonique López LPN - 02/06/2023 10:17 AM EDT Patient presents with: Imm/Inj Pt is identified by name and birthdate: Yes. Allergies and medications reviewed. Latex allergy? No. Does this patient have: Unplanned weight loss or gain of greater than 10 pounds, or a change of appetite over the last year? No Does the patient have any concerns about safety in the home/falls? Not at risk for falls Has the patient fallen in the past year? No Does the patient have difficulty performing or completing routine daily living activities? No Does this patient have concerns about personal safety? No Is patient having pain? Pain: No=0 (pain 0 on a scale of 0-10). Health Maintenance: Reviewed and updated. Does patient have MyChart access or Caregiver proxy: not applicable Pt/Caregiver willingness and readiness to learn assessed: Yes. Barriers: none Luspatercept injection administered, tolerated well, no immediate adverse reactions noted. Domonique López LPN documented in this encounterHighland District Hospital03-29-2023 Miscellaneous Notes* Telephone Encounter - Margot Cox LPN - 02/05/2023 8:05 AM EDT [employer] message sent. Margot Cox LPN * Telephone Encounter - Steven Akers DO - 02/04/2023 6:39 PM EDT No. Steven Akers DO * Telephone Encounter - Domonique López LPN - 02/04/2023 5:18 PM EDT Pt. Received Injection of Kenalog/lidocaine in his lower back today from Dr. Traore. just wanting to make sure this is not going to interfere with his Luspatercept injection on ? Domonique López LPN documented in this encounterHighland District Hospital03-27-2023 Miscellaneous Notes* Telephone Encounter - Ashwin Montenegro LPN - 02/03/2023 12:55 PM EDT Patient phones requesting refills as follows: Requested Prescriptions Pending Prescriptions Disp Refills montelukast (SINGULAIR) 10 mg tablet 90 tablet 3 Sig: Take 1 tablet by mouth daily at bedtime. LOS 09/21/21 NOV no upcoming appt. *Pt overdue for appt and labs. MyChart message to pt advising of the same. Please review and advise. Please review and advise. Ashwin Montenegro LPN documented in this encounterHighland District Hospital03-17-2023 Miscellaneous Notes* Telephone Encounter - Margot Cox LPN - 01/24/2023 5:05 PM EDT Patient will need transfused 01/27/2023, 1 unit PRBC @ [facility]. Orders faxed. [facility] infusion suite to contact patient first thing Friday morning. Patient is aware. Margot Cox LPN documented in this encounterHighland District Hospital03-17-2023 Miscellaneous Notes* Telephone Encounter - Margot Cox LPN - 01/24/2023 4:46 PM EDT Please file order. Margot Cox LPN documented in this encounterHighland District Hospital03-17-2023 Miscellaneous Notes* Telephone Encounter - Salena Ricardo RN - 01/24/2023 4:40 PM EDT Met with patient and introduced myself. Patient was given a folder with [facility] drug information and office contact numbers. Salena Ricardo RN documented in this encounterHighland District Hospital03-17-2023 History of Present illness Narrative* Steven Akers, - 01/24/2023 3:42 PM EDT Diagnoses: 1) 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 Transfusion dependent. 5) Sensory neuropathy. HPI: The patient is a 77 yo male who had an unremarkable PMH. Evaluated 06/29/2015 for c/o sore throat, malaise and low grade fever that had been going on for about 2 weeks. Was found to have macrocytic anemia and elevated serum iron and ferritin. Stool hemoccult negative. 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 Declined therapy. Current therapy: 1) Periodic RBC transfusion. Transferred care to [facility] early 2021. Was treated with Inqovi 04/2022 for about a week, but developed pancytopenia and neutropenic fever requiring hospitalization and transfusional support. However, he didn't require RBC transfusion for several months. Presents for ongoing oncologic management. Interim history: No subjective change. He has chronic fatigue and is more fatigued today because his hemoglobin is lower. No exertional chest pain. No unusual bleeding or unexplained bruising. He was found to have splenomegaly on exam. He has more abdominal distention and was told he has ascites. This has not yet been worked up. Neuropathy--numbness limited to toes and balls of feet--symptoms fluctuate. PMH, medications and allergies as below personally reviewed by me today. Any changes documented in appropriate section. ROS: Constitutional: No episode of fever, shaking chill and night sweats. Appetite is normal. Neuro: Denies vertigo and imbalance. HEENT: No recent change in voice, vision. Resp: Denies cough, wheeze and hemoptysis. CVS: See above. GI: No dysphagia or odynophagia. No nausea or vomiting. Bowels are working normally. Has occasionaldiarrhea. Endo: No hot flashes. Musculoskeletal: Denies bone, back, joint and muscular pain. Derm: No rash. Heme: No unusual bleeding or bruising. Psych: Normal mood. PHYSICAL EXAM: Vitals: Blood pressure 127/53, pulse 68, temperature 36.5 C (97.7 F), temperature source Temporal,weight 79.4 kg (175 lb). Fatigued-appearing and in no acute distress. EYES: Sclerae are slightly icteric bilaterally. NECK: Supple. LYMPHATIC: There is no palpable cervical or supraclavicular adenopathy. RESPIRATORY: Inspiratory breath sounds are of normal intensity in all ariza. No rales, wheezes or rhonchi. CARDIOVASCULAR: Rhythm is regular. Normal intensity S1/S2. ABDOMEN: The abdomen is distended. There is a mild fluid wave. He has tender splenomegaly but hard to palpate the borders secondary to the tenderness. Extremities: No swelling. Has compression stockings on. SKIN: No jaundice or rash. No petechiae. 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 No focal motor weakness. LABS: PATHOLOGY: Bone marrow biopsy 01/08/2023: A-C. Bone marrow, biopsy core, aspirate clot, touch imprint and aspirate smear: - Myelodysplastic syndrome with low blast count and ring sideroblasts. - See comment. D. Peripheral blood smear: - Myelodysplastic syndrome. - See comment. The patient has a history of myelodysplastic syndrome and of monoclonal B cell population associated with an M protein characterized as IgM kappa. The findings in this case consist of pancytopenia associated with a slightly hypercellular bone marrow with numerous ring sideroblasts and hypogranular neutrophils. Flow cytometric immunophenotypic analysis performed on this specimen identified no evidence of an abnormal population. In conclusion, the findings in this case indicate the persistence of the previously diagnosed myelodysplastic syndrome (MDS). Adequate classification requires additional molecular and cytogenetic data, but the differential diagnosis includes MDS with mutated SF3B1 or MDS with multilineage dysplasiain the ICC 2022 classification or, in the WHO 2022 classification MDS with low blasts and SF3B1 mutation or MDS with low blasts. There is no definitive evidence of a low grade lymphoproliferative disorder or of a plasma cell neoplasm. Correlation with molecular and conventional cytogenetic findingsis necessary. DIAGNOSIS: 46,XY[20] ASSESSMENT/PLAN: (D46.20) MDS (myelodysplastic syndrome), low grade (HCC) (D53.9) Macrocytic anemia Assessment: -RARS. -IPSS=0 Low risk. -IPSS-R=2 Low risk. 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 -He developed secondary hypertension and left-sided tinnitus with Aranesp. He declined further TREV therapy. -CT from 12/10/2022--Degree of splenomegaly was not significantly worse than it had been. No significant amount of lymphoplasmacytic lymphoma identified on bone marrow biopsy. -I reviewed the results of the bone marrow biopsy with him and his . Persistent low-grade MDS with ringed sideroblasts. -He has frequent need for red blood cell transfusional support--every 2 to 3 weeks for the past several years. He was intolerant to TREV therapy which caused significant hypertension, headache and pounding tinnitus. -I recommended treatment with Luspatercept in an effort to decrease the frequency of need for red blood cell transfusion. -I discussed the rationale, logistics, potential risks (including but not limited to hypertension, headache, nausea, diarrhea, arthralgias and the small potential for as a consequence of severetoxicity/complications of therapy), benefits and alternatives, as well as the personnel involved inthe administration of Luspatercept. I answered his questions in detail and he verbalized understanding and agreed with the recommended therapy. Please see the electronic consent document for details of doses and schedule. -Plan discussed with weekend caregiver. Plan: -Continue every 2-week monitoring of CBC for transfusion requirement. -Begin Luspatercept a week from as that is his preference on day of therapy. -Starting dose 1 mg/kg. Every 3 weeks by subcutaneous injection dose will be titrated according to directions per package insert and patient tolerance. 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 -Had CD5 negative low-grade lymphoproliferative disorder identified by flow cytometry only on original bone marrow aspirate. The clonal cells were lambda light chain restricted. -Has polyneuropathy. Previous MAG antibody testing negative. No progression. -Over time, still nothing to suggest amyloidosis--ie, neuropathy rather limited and has remained stable for several years. Echo 05/2018 was normal. -Recent recheck on 11/26/2022 demonstrated small incremental increase in serum monoclonal protein. Immunofixation showed IgM kappa and lambda light chain. -I reviewed the results of his CT scans in detail. No evidence of cirrhotic morphology of the liver. No ascites. Mild splenomegaly not significantly changed from several years ago. -Recent flow cytometry on the aspirate from 01/08/2023 demonstrated no immunophenotypic evidence of alymphoproliferative disorder. 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 -Reviewed this information with him and his . No clinical consequence. Plan: -Will continue to periodically monitor. (N28.1) Renal cyst Assessment: -The right lower renal cyst on my personal review of CTs when compared to 05/05/2017 is about 5 mm larger. Plan: -No clear indication for further imaging of this. (E83.111) Iron overload, transfusional Assessment: -Reviewed most recent iron testing including ferritin. -He has had a lot of transfusional support over the last several years and has not had iron chelation. -Discussed iron chelation with him. Renal function is normal as are LFTs. -Reasonable candidate for Exjade. However after review of the risks and benefits, he declines chelation therapy at this time. Plan: -Monitor iron periodically. Portions of this documentation were copied and pasted from previous office visit notes in order to provide a cohesive continuity of the history. The note has been reviewed and edited and updated as necessary. I spent a total of 45 minutes on the date of the service which included preparing to see the patient, [id number]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 head and has no injuries. documented in this encounterHighland [facility] Hospital07-11-2022 Miscellaneous Notes* Telephone Encounter - Sunday Carter PA-C - 05/20/2022 6:05 PM EDT He was started on copper 2mg twice a day OTC for copper deficiency [place] [address] Oswald cook but now following with Dr. Angelina cook at [facility] I do not know where Quercetin came from - possibly a personal supplement. He was recently started on Lasix 40mg daily [facility] hospitalization discharge 05/14/2022 Current med list form discharge 05/14/2022: New prescriptions: Augmentin clavulanate 875 125 1 p.o. twice daily #14/0 Clindamycin 300 mg every 8 hours #21/0 Continue medications: Tramadol 50 mg p.o. 3 times daily Folic acid 1 mg daily Losartan 25 mg daily Ondansetron 4 mg disintegrating tablet 4 mg p.o. every 8 hours as needed #30/2 Fish oil 1 capsule daily Omeprazole 20 m capsules daily AC Montelukast 10 mg daily at bedtime Pyridoxine 100 mg daily calcium carbonate 500 mg daily Cholecalciferol 5000 units daily tadalafil 2.5 mg daily Inqovi 35-100 mg tablet 1 tab daily x5 days, then off 21 days Doxazosin 4 mg tablet nightly Sennosides 8.6 mg tablet 17 2.2 mg p.o. twice daily Hope this helps. Thanks, Mauro Carter PA-C * Telephone Encounter - Sabina Harris RN - 05/20/2022 8:20 AM EDT Alejo PT with [facility] called in and reports they completed the PT home assessment on patient, and they will be making 5 visits to the patient at this time. The patient is declining the nurseservices reporting he does not need them. He is also reporting some differences on the med list they received compared to what they received from the hospital. Alejo states the patient is no longer taking the Inqovi the chemo medication, there was a 200 mg Magnesium he was taking daily, and 40 mg ofFurosamide daily. Two meds that he reported were different, but that showed on our list were 2 mg of Copper daily and 500 mg Quercetin daily. documented in this encounterHighland [facility] Hospital07-06-2022 Miscellaneous Notes* Telephone Encounter - Sabina Harris RN - 05/15/2022 11:34 AM EDT [facility] called and is notified of providers message. She voices understanding. Sabina Harris RN * Telephone Encounter - Sunday Carter PA-C - 05/14/2022 5:09 PM EDT Yes. Thanks, Mauro Carter PA-C * Telephone Encounter - Caity Roberson LPN - 05/14/2022 4:31 PM EDT Lee from [facility] reports pt is discharging from [facility] today, Pt will have nursing, PT & OT. Will pcp agree to follow? Lee states [facility] wants pt to have labs, said they have been following pt's CBC & BMP, wants pcpto order. Pt was in [facility] from 05/09/22 - 05/14/22. Dx MDS, Acute neutropenic fever & pulmonary hypertension. Caity Roberson LPN documented in this encounterHighland [facility] Hospital03-28-2022 Miscellaneous Notes* Telephone Encounter - Valeria Kern LPN - 02/04/2022 5:20 PM EDT Patient has been identified by name and date of : Yes Pending Prescriptions Disp Refills MONTELUKAST 10 MG TABLET 90 tablet 3 Sig: Take 1 tablet by mouth daily at bedtime. DARIAN: No RX INSTRUCTIONS: Patient aware RX will be sent to pharmacy. No need to notify patient. Valeria Kern LPN documented in this encounterHighland [facility] Hospital11-05-2021 History of Present illness Narrative* Nohelia Plasencia, RT(R) - 09/14/2021 3:10 PM EDT Radiology Service Progress Note PATIENT NAME: Loreta Hurst DATE OF SERVICE: September 14, 2021 TIME: 3:01 PM PATIENT IDENTITY VERIFICATION COMPLETED USING TWO (2) IDENTIFIERS: Name and Date of confirmedby patient verbally. FALL SCREENING: Has the patient had 2 falls in the last year or 1 fall with injury or currently using an Ambulatory Assistive Device (Walker, Cane, Wheelchair, Crutches, etc.)? 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 7 documented as of this encounter (statuses as of 01/15/2024) [facility] of [facility] illness Narrative* Problem Noted Date Diagnosed Date Resolved Date Acute respiratory failure with hypoxia 06/12/2020 01/14/2024 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 7 documented as of this encounter (statuses as of 01/27/2024) [facility] illness Narrative* Problem Noted Date Diagnosed Date Resolved Date Acute respiratory failure with hypoxia 06/12/2020 01/14/2024 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 7 documented as of this encounter (statuses as of 01/29/2024) [facility] Narrative* Problem Noted Date Diagnosed Date Resolved Date Acute respiratory failure with hypoxia 06/12/2020 01/14/2024 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 7 documented as of this encounter (statuses as of 01/29/2024) [facility] Narrative* Problem Noted Date Diagnosed Date Resolved Date Acute respiratory failure with hypoxia 06/12/2020 01/14/2024 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 7 documented as of this encounter (statuses as of 01/29/2024) [facility] Narrative* Problem Noted Date Diagnosed Date Resolved Date Acute respiratory failure with hypoxia 06/12/2020 01/14/2024 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 7 documented as of this encounter (statuses as of 01/29/2024) [facility] Narrative* Problem Noted Date Diagnosed Date Resolved Date Acute respiratory failure with hypoxia 06/12/2020 01/14/2024 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 7 documented as of this encounter (statuses as of 01/30/2024) [facility] Narrative* Problem Noted Date Diagnosed Date Resolved Date Acute respiratory failure with hypoxia 06/12/2020 01/14/2024 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 7 documented as of this encounter (statuses as of 02/10/2024) [facility] Narrative* Problem Noted Date Diagnosed Date Resolved Date Acute respiratory failure with hypoxia 06/12/2020 01/14/2024 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 7 documented as of this encounter (statuses as of 02/12/2024) [place] [address]-03-2020 History of Past illness Narrative* Problem Noted Date Diagnosed Date Resolved Date Acute respiratory failure with hypoxia 06/12/2020 01/14/2024 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 7 documented as of this encounter (statuses as of 02/13/2024) [facility] Narrative* Problem Noted Date Diagnosed Date Resolved Date Acute respiratory failure with hypoxia 06/12/2020 01/14/2024 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 7 documented as of this encounter (statuses as of 02/19/2024) [facility] Narrative* Problem Noted Date Diagnosed Date Resolved Date Acute respiratory failure with hypoxia 06/12/2020 01/14/2024 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 7 documented as of this encounter (statuses as of 02/20/2024) [facility] Narrative* Problem Noted Date Diagnosed Date Resolved Date Acute respiratory failure with hypoxia 06/12/2020 01/14/2024 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 7 documented as of this encounter (statuses as of 02/25/2024) [facility] Narrative* Problem Noted Date Diagnosed Date Resolved Date Acute respiratory failure with hypoxia 06/12/2020 01/14/2024 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 7 documented as of this encounter (statuses as of 02/27/2024) [facility] Narrative* Problem Noted Date Diagnosed Date Resolved Date Acute respiratory failure with hypoxia 06/12/2020 01/14/2024 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 7 documented as of this encounter (statuses as of 02/13/2024) [facility] Narrative* Problem Noted Date Resolved Date 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 04/28/2017 documented as of this encounter (statuses as of 02/05/2022) [facility]* Problem Noted Date Resolved Date 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 04/28/2017 documented as of this encounter (statuses as of 05/15/2022) [facility] Narrative* Problem Noted Date Resolved Date 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 04/28/2017 documented as of this encounter (statuses as of 05/21/2022) [facility]* Problem Noted Date Resolved Date 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 04/28/2017 documented as of this encounter (statuses as of 05/31/2022) [facility]* Problem Noted Date Resolved Date 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 04/28/2017 documented as of this encounter (statuses as of 07/03/2022) [facility]* Problem Noted Date Resolved Date 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 04/28/2017 documented as of this encounter (statuses as of 10/30/2022) [facility]* Problem Noted Date Resolved Date 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 04/28/2017 documented as of this encounter (statuses as of 11/25/2022) [facility]* Problem Noted Date Resolved Date 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 04/28/2017 documented as of this encounter (statuses as of 11/26/2022) [facility]* Problem Noted Date Resolved Date 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 04/28/2017 documented as of this encounter (statuses as of 12/03/2022) [facility]* Problem Noted Date Resolved Date 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 04/28/2017 documented as of this encounter (statuses as of 12/18/2022) [facility]* Problem Noted Date Resolved Date 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 04/28/2017 documented as of this encounter (statuses as of 12/18/2022) [facility]* Problem Noted Date Resolved Date 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 04/28/2017 documented as of this encounter (statuses as of 12/19/2022) [facility]* Problem Noted Date Resolved Date 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 04/28/2017 documented as of this encounter (statuses as of 12/24/2022) [facility]* Problem Noted Date Resolved Date 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 04/28/2017 documented as of this encounter (statuses as of 01/08/2023) [facility]* Problem Noted Date Resolved Date 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 04/28/2017 documented as of this encounter (statuses as of 01/08/2023) [facility]* Problem Noted Date Resolved Date 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 04/28/2017 documented as of this encounter (statuses as of 01/08/2023) [facility]* Problem Noted Date Resolved Date 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 04/28/2017 documented as of this encounter (statuses as of 01/24/2023) [facility]* Problem Noted Date Resolved Date 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 04/28/2017 documented as of this encounter (statuses as of 01/24/2023) [facility]* Problem Noted Date Resolved Date 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 04/28/2017 documented as of this encounter (statuses as of 01/24/2023) [facility]* Problem Noted Date Resolved Date 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 04/28/2017 documented as of this encounter (statuses as of 01/26/2023) [facility]* Problem Noted Date Resolved Date 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 04/28/2017 documented as of this encounter (statuses as of 02/04/2023) [facility]* Problem Noted Date Resolved Date 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 04/28/2017 documented as of this encounter (statuses as of 02/05/2023) [facility]* Problem Noted Date Resolved Date 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 04/28/2017 documented as of this encounter (statuses as of 02/06/2023) [facility]* Problem Noted Date Resolved Date 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 04/28/2017 documented as of this encounter (statuses as of 02/07/2023) [facility]* Problem Noted Date Resolved Date 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 04/28/2017 documented as of this encounter (statuses as of 02/10/2023) [facility]* Problem Noted Date Resolved Date 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 04/28/2017 documented as of this encounter (statuses as of 02/13/2023) [facility]* Problem Noted Date Resolved Date 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 04/28/2017 documented as of this encounter (statuses as of 02/20/2023) [facility]* Problem Noted Date Resolved Date 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 04/28/2017 documented as of this encounter (statuses as of 02/28/2023) [facility]* Problem Noted Date Resolved Date 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 04/28/2017 documented as of this encounter (statuses as of 02/28/2023) [facility]* Problem Noted Date Resolved Date 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 04/28/2017 documented as of this encounter (statuses as of 03/06/2023) [facility]* Problem Noted Date Resolved Date 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 04/28/2017 documented as of this encounter (statuses as of 03/06/2023) [facility]* Problem Noted Date Resolved Date 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 04/28/2017 documented as of this encounter (statuses as of 03/06/2023) [facility]* Problem Noted Date Resolved Date 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 04/28/2017 documented as of this encounter (statuses as of 03/07/2023) [facility]* Problem Noted Date Resolved Date 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 04/28/2017 documented as of this encounter (statuses as of 03/12/2023) [facility]* Problem Noted Date Resolved Date 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 04/28/2017 documented as of this encounter (statuses as of 03/20/2023) [facility]* Problem Noted Date Resolved Date 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 04/28/2017 documented as of this encounter (statuses as of 03/20/2023) [facility] History of Past illness Narrative* Problem Noted Date Resolved Date 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 04/28/2017 documented as of this encounter (statuses as of 04/10/2023) [facility] History of Past illness Narrative* Problem Noted Date Resolved Date 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 04/28/2017 documented as of this encounter (statuses as of 04/10/2023) [facility] History of Past illness Narrative* Problem Noted Date Resolved Date 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 04/28/2017 documented as of this encounter (statuses as of 04/11/2023) [facility] History of Past illness Narrative* Problem Noted Date Resolved Date 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 04/28/2017 documented as of this encounter (statuses as of 04/11/2023) [facility] History of Past illness Narrative* Problem Noted Date Resolved Date 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 04/28/2017 documented as of this encounter (statuses as of 05/01/2023) [facility] History of Past illness Narrative* Problem Noted Date Resolved Date 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 04/28/2017 documented as of this encounter (statuses as of 05/01/2023) [facility] History of Past illness Narrative* Problem Noted Date Resolved Date 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 04/28/2017 documented as of this encounter (statuses as of 05/02/2023) [facility] History of Past illness Narrative* Problem Noted Date Resolved Date 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 04/28/2017 documented as of this encounter (statuses as of 05/02/2023) [facility] History of Past illness Narrative* Problem Noted Date Resolved Date 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 04/28/2017 documented as of this encounter (statuses as of 05/02/2023) [facility] History of Past illness Narrative* Problem Noted Date Diagnosed Date Resolved Date 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 7 documented as of this encounter (statuses as of 05/22/2023) [facility] History of Past illness Narrative* Problem Noted Date Diagnosed Date Resolved Date 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 7 documented as of this encounter (statuses as of 06/05/2023) [facility] History of Past illness Narrative* Problem Noted Date Diagnosed Date Resolved Date 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 7 documented as of this encounter (statuses as of 06/12/2023) [facility] History of Past illness Narrative* Problem Noted Date Diagnosed Date Resolved Date 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 7 documented as of this encounter (statuses as of 06/12/2023) [facility] History of Past illness Narrative* Problem Noted Date Diagnosed Date Resolved Date 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 7 documented as of this encounter (statuses as of 06/24/2023) [facility] History of Past illness Narrative* Problem Noted Date Diagnosed Date Resolved Date 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 7 documented as of this encounter (statuses as of 06/24/2023) [facility] History of Past illness Narrative* Problem Noted Date Diagnosed Date Resolved Date 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 7 documented as of this encounter (statuses as of 07/03/2023) [facility] History of Past illness Narrative* Problem Noted Date Diagnosed Date Resolved Date 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 7 documented as of this encounter (statuses as of 07/03/2023) [facility] History of Past illness Narrative* Problem Noted Date Diagnosed Date Resolved Date 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 7 documented as of this encounter (statuses as of 07/04/2023) [facility] History of Past illness Narrative* Problem Noted Date Diagnosed Date Resolved Date 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 7 documented as of this encounter (statuses as of 07/08/2023) [facility] History of Past illness Narrative* Problem Noted Date Diagnosed Date Resolved Date 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 7 documented as of this encounter (statuses as of 07/22/2023) [facility] History of Past illness Narrative* Problem Noted Date Diagnosed Date Resolved Date 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 7 documented as of this encounter (statuses as of 07/24/2023) [facility] History of Past illness Narrative* Problem Noted Date Diagnosed Date Resolved Date 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 7 documented as of this encounter (statuses as of 08/15/2023) [facility] History of Past illness Narrative* Problem Noted Date Diagnosed Date Resolved Date 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 7 documented as of this encounter (statuses as of 08/21/2023) [facility] History of Past illness Narrative* Problem Noted Date Diagnosed Date Resolved Date 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 7 documented as of this encounter (statuses as of 09/04/2023) [facility] History of Past illness Narrative* Problem Noted Date Diagnosed Date Resolved Date 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 7 documented as of this encounter (statuses as of 09/05/2023) [facility] History of Past illness Narrative* Problem Noted Date Diagnosed Date Resolved Date 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 7 documented as of this encounter (statuses as of 09/14/2023) [facility] History of Past illness Narrative* Problem Noted Date Diagnosed Date Resolved Date 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 7 documented as of this encounter (statuses as of 09/14/2023) [facility] History of Past illness Narrative* Problem Noted Date Diagnosed Date Resolved Date 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 7 documented as of this encounter (statuses as of 09/18/2023) [facility] History of Past illness Narrative* Problem Noted Date Diagnosed Date Resolved Date 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 7 documented as of this encounter (statuses as of 09/19/2023) [facility] History of Past illness Narrative* Problem Noted Date Diagnosed Date Resolved Date 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 7 documented as of this encounter (statuses as of 09/25/2023) [facility] History of Past illness Narrative* Problem Noted Date Diagnosed Date Resolved Date 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 7 documented as of this encounter (statuses as of 09/26/2023) [facility] History of Past illness Narrative* Problem Noted Date Diagnosed Date Resolved Date 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 7 documented as of this encounter (statuses as of 09/26/2023) [facility] History of Past illness Narrative* Problem Noted Date Diagnosed Date Resolved Date 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 7 documented as of this encounter (statuses as of 10/16/2023) [facility] History of Past illness Narrative* Problem Noted Date Diagnosed Date Resolved Date 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 7 documented as of this encounter (statuses as of 10/17/2023) [facility] History of Past illness Narrative* Problem Noted Date Diagnosed Date Resolved Date 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 7 documented as of this encounter (statuses as of 12/11/2023) [facility] History of Past illness Narrative* Problem Noted Date Diagnosed Date Resolved Date 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 7 documented as of this encounter (statuses as of 12/31/2023) [facility] History of Past illness Narrative* Problem Noted Date Diagnosed Date Resolved Date 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 7 documented as of this encounter (statuses as of 01/01/2024) [facility] History of Past illness Narrative* Problem Noted Date Diagnosed Date Resolved Date 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 7 documented as of this encounter (statuses as of 01/08/2024) [facility] History of Past illness Narrative* Problem Noted Date Diagnosed Date Resolved Date 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 7 documented as of this encounter (statuses as of 01/12/2024) [facility] Diagnosis Onset Date Resolution Status Abnormal magnetic resonance imaging of bone chronic 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 magnetic resonance imaging of bone chronic Myelodysplastic syndrome chr onic [place] macroglobulinemia chronic [facility] Work Phone: Evaluation note* Diagnosis Onset Date Resolution Status Abnormal magnetic resonance imaging of bone chronic Myelodysplastic syndrome chr onic [place] macroglobulinemia chronic Tiredness acute Abnormal magnetic resonance imaging of bone chronic 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 magnetic resonance imaging of bone chronic Myelodysplastic syndrome chr onic [place] macroglobulinemia chronic Encounter for education acut e Abnormal magnetic resonance imaging of bone chronic Myelodysplastic syndrome chr onic [place] macroglobulinemia chronic HTN (hypertension), benign a cute Myelodysplastic syndrome chr onic Constipation acute Headache acute Myelodysplastic syndrome chr onic Neutropenic fever acute Signs and symptoms of anemia acute Symptomatic anemia acute Thrombocytopenia acute [facility] Work Phone: Evaluation note* Diagnosis Onset Date Resolution Status Abnormal magnetic resonance imaging of bone chronic Myelodysplastic syndrome chr onic [place] macroglobulinemia chronic Tiredness acute Abnormal magnetic resonance imaging of bone chronic 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 magnetic resonance imaging of bone chronic Myelodysplastic syndrome chr onic [place] macroglobulinemia chronic Encounter for education acut e Abnormal magnetic resonance imaging of bone chronic Myelodysplastic syndrome chr onic [place] macroglobulinemia chronic HTN (hypertension), benign a cute Myelodysplastic syndrome chr onic Constipation acute Headache acute Myelodysplastic syndrome chr onic Neutropenic fever acute Pancytopenia acute Signs and symptoms of anemia acute Symptomatic anemia acute Thrombocytopenia acute Myelodysplastic syndrome chr onic [facility] Work Phone: Evaluation note* Diagnosis Encounter for support and coordination of transition of care documented in this encounter [facility] note* Diagnosis MDS (myelodysplastic syndrome), low grade (HCC)- Primary Low grade myelodysplastic syndrome lesions 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 (HCC) Macroglobulinemia documented in this encounter [facility] note* Diagnosis MDS (myelodysplastic syndrome), low grade (HCC)- Primary Low grade myelodysplastic syndrome lesions 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 (HCC) Macroglobulinemia [place] macroglobulinemia (HCC) Macroglobulinemia Splenomegaly documented in this encounter [facility] note* Diagnosis Benign prostatic hyperplasia with nocturia documented in this encounter [facility] note* Diagnosis MDS (myelodysplastic syndrome), low grade (HCC)- Primary Low grade myelodysplastic syndrome lesions 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 (HCC) Macroglobulinemia Splenomegaly documented in this encounter [facility] note* Diagnosis MDS (myelodysplastic syndrome), low grade (HCC)- Primary Low grade myelodysplastic syndrome lesions Macrocytic anemia Unspecified deficiency anemia 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 (HCC) Macroglobulinemia Renal cyst 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, 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 documented in this encounter [facility] note* Diagnosis BPH with obstruction/lower urinary tract symptoms Hypertrophy of prostate with urinary obstruction and other lower urinary tract symptoms (LUTS) documented in this encounter [facility] note* Diagnosis MDS (myelodysplastic syndrome), low grade (HCC)- Primary Low grade myelodysplastic syndrome lesions Macrocytic anemia Unspecified deficiency anemia 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 (HCC) Macroglobulinemia MDS (myelodysplastic syndrome), low grade (HCC)- Primary Low grade myelodysplastic syndrome lesions 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 (HCC) Macroglobulinemia documented in this encounter [facility] note* Diagnosis MDS (myelodysplastic syndrome), low grade (HCC)- Primary Low grade myelodysplastic syndrome lesions 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 (HCC) Macroglobulinemia documented in this encounter [facility] note* Diagnosis MDS (myelodysplastic syndrome), low grade (HCC)- Primary Low grade myelodysplastic syndrome lesions documented in this encounter [facility] note* Diagnosis MDS (myelodysplastic syndrome), low grade (HCC)- Primary Low grade myelodysplastic syndrome lesions 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 [facility] Diagnosis Idiopathic aplastic anemia (HCC)- Primary Aplastic anemia, unspecified MDS (myelodysplastic syndrome), low grade (HCC) Low grade myelodysplastic syndrome lesions [facility]DS (myelodysplastic syndrome), low grade (HCC) Low grade myelodysplastic syndrome lesions [facility] Diagnosis Bradycardia- Primary Other specified cardiac dysrhythmias [facility] Diagnosis Idiopathic aplastic anemia (HCC)- Primary Aplastic anemia, unspecified MDS (myelodysplastic syndrome), low grade (HCC) Low grade myelodysplastic syndrome lesions [facility] Diagnosis MDS (myelodysplastic syndrome), low grade (HCC)- Primary Low grade myelodysplastic syndrome lesions [facility] Diagnosis Onset Date Resolution Status High serum ferritin acute Myelodysplastic syndrome chr onic [place] macroglobulinemia chronic BARRON (dyspnea on exertion) ac [place] Fatigue acute HTN (hypertension), benign a cute Lightheadedness acute Myelodysplastic syndrome chr [facility] Work Phone: Evaluation note* Diagnosis Onset Date Resolution Status BARRON (dyspnea on exertion) ac [place] Fatigue acute HTN (hypertension), benign a cute Lightheadedness acute Myelodysplastic syndrome chr ic [facility] Work Phone: Evaluation note* Diagnosis Idiopathic aplastic anemia (HCC)- Primary Aplastic anemia, unspecified MDS (myelodysplastic syndrome), low grade (HCC) Low grade myelodysplastic syndrome lesions [facility] Diagnosis Idiopathic aplastic anemia (HCC)- Primary Aplastic anemia, unspecified MDS (myelodysplastic syndrome), low grade (HCC) Low grade myelodysplastic syndrome lesions [facility] Diagnosis MDS (myelodysplastic syndrome), low grade (HCC)- Primary Low grade myelodysplastic syndrome lesions Pancytopenia (HCC) Other pancytopenia [facility] Diagnosis Idiopathic aplastic anemia (HCC)- Primary Aplastic anemia, unspecified MDS (myelodysplastic syndrome), low grade (HCC) Low grade myelodysplastic syndrome lesions [facility] Diagnosis MDS (myelodysplastic syndrome), low grade (HCC)- Primary Low grade myelodysplastic syndrome lesions Pancytopenia (HCC) Other pancytopenia Left lower quadrant abdominal pain [facility] Diagnosis Onset Date Resolution Status BARRON (dyspnea on exertion) ch [place] Fatigue chronic HTN (hypertension), benign c hronic Lightheadedness chronic Myelodysplastic syndrome [facility] onic BARRON (dyspnea on exertion) ch ronic Fatigue chronic HTN (hypertension), benign c hronic Lightheadedness chronic Myelodysplastic syndrome [facility] Work Phone: Evaluation note* Diagnosis MDS (myelodysplastic syndrome), low grade (HCC)- Primary Low grade myelodysplastic syndrome lesions Macrocytic anemia Unspecified deficiency anemia 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 (HCC) Macroglobulinemia Iron overload, 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 Renal cyst Unspecified congenital cystic kidney disease Hypervolemia, unspecified hypervolemia type [facility]* Diagnosis MDS (myelodysplastic syndrome), low grade (HCC)- Primary Low grade myelodysplastic syndrome lesions 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 (HCC) Macroglobulinemia Iron overload, 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 Work Phone: Evaluation note* Diagnosis BPH with obstruction/lower urinary tract symptoms Hypertrophy of prostate with urinary obstruction and other lower urinary tract symptoms (LUTS) [facility] Diagnosis BPH with obstruction/lower urinary tract symptoms Hypertrophy of prostate with urinary obstruction and other lower urinary tract symptoms (LUTS) [facility]* Diagnosis Idiopathic aplastic anemia (HCC)- Primary Aplastic anemia, unspecified MDS (myelodysplastic syndrome), low grade (HCC) Low grade myelodysplastic syndrome lesions [facility]* Diagnosis MDS (myelodysplastic syndrome), low grade (HCC)- Primary Low grade myelodysplastic syndrome lesions Iron overload, 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 (HCC) Macroglobulinemia [facility]* Diagnosis MDS (myelodysplastic syndrome), low grade (HCC)- Primary Low grade myelodysplastic syndrome lesions 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 (HCC) Macroglobulinemia Pulmonary hypertension, mild (HCC) Other chronic pulmonary heart diseases Diastolic dysfunction Heart disease, unspecified Iron overload, 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 ROSS (obstructive sleep apnea) Obstructive sleep apnea (adult) (pediatric) Polyneuropathy in other diseases classified elsewhere (HCC) Polyneuropathy in other diseases classified elsewhere Chronic GERD [facility] Diagnosis Idiopathic aplastic anemia (HCC)- Primary Aplastic anemia, unspecified MDS (myelodysplastic syndrome), low grade (HCC) Low grade myelodysplastic syndrome lesions [facility]* Diagnosis Idiopathic aplastic anemia (HCC)- Primary Aplastic anemia, unspecified MDS (myelodysplastic syndrome), low grade (HCC) Low grade myelodysplastic syndrome lesions documented in this encounter [facility] note* Diagnosis MDS (myelodysplastic syndrome), low grade (HCC) Low grade myelodysplastic syndrome lesions Pancytopenia (HCC) Other pancytopenia Left lower quadrant abdominal pain documented in this encounter [facility] note* Diagnosis MDS (myelodysplastic syndrome), low grade (HCC) Low grade myelodysplastic syndrome lesions [place] macroglobulinemia (HCC) Macroglobulinemia Splenomegaly documented in this encounter [facility] noteNo assessment information availableWHolzer [facility] Work Phone: Evaluation note* Diagnosis Idiopathic aplastic anemia (HCC)- Primary Aplastic anemia, unspecified MDS (myelodysplastic syndrome), low grade (HCC) Low grade myelodysplastic syndrome lesions documented in this encounter [facility] note* Diagnosis MDS (myelodysplastic syndrome), low grade (HCC)- Primary Low grade myelodysplastic syndrome lesions documented in this encounter [facility] note* Diagnosis Idiopathic aplastic anemia (HCC)- Primary Aplastic anemia, unspecified MDS (myelodysplastic syndrome), low grade (HCC) Low grade myelodysplastic syndrome lesions documented in this encounter [facility] note* Diagnosis MDS (myelodysplastic syndrome), low grade (HCC)- Primary Low grade myelodysplastic syndrome lesions 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 (HCC) Macroglobulinemia Iron overload, 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 documented in this encounter [facility] note* Diagnosis Idiopathic aplastic anemia (HCC)- Primary Aplastic anemia, unspecified MDS (myelodysplastic syndrome), low grade (HCC) Low grade myelodysplastic syndrome lesions documented in this encounter [facility] note* Diagnosis BPH with obstruction/lower urinary tract symptoms Hypertrophy of prostate with urinary obstruction and other lower urinary tract symptoms (LUTS) documented in this encounter [facility] note* Diagnosis Diastolic dysfunction- Primary Heart disease, unspecified Abnormal echocardiogram Nonspecific (abnormal) findings on radiological and other examination of other intrathoracic organs Pulmonary hypertension (HCC) Other chronic pulmonary heart diseases MDS (myelodysplastic syndrome), low grade (HCC) Low grade myelodysplastic syndrome lesions 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 (HCC) Macroglobulinemia Idiopathic aplastic anemia (HCC) Aplastic anemia, unspecified Polyneuropathy in other diseases classified elsewhere (HCC) Polyneuropathy in other diseases classified elsewhere Pancytopenia (HCC) Other pancytopenia Iron overload, 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 Elevated ferritin Other abnormal blood chemistry Chronic GERD Early satiety BPH with obstruction/lower urinary tract symptoms Hypertrophy of prostate with urinary obstruction and other lower urinary tract symptoms (LUTS) Urinary retention Retention of urine, unspecified Chronic insomnia Insomnia, unspecified documented in this encounter [facility] note* Diagnosis MDS (myelodysplastic syndrome), low grade (HCC)- Primary Low grade myelodysplastic syndrome lesions 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 (HCC) Macroglobulinemia Iron overload, 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 Idiopathic aplastic anemia (HCC) Aplastic anemia, unspecified [facility] Diagnosis MDS (myelodysplastic syndrome), low grade (HCC)- Primary Low grade myelodysplastic syndrome lesions documented in this encounter [facility] note* Diagnosis MDS (myelodysplastic syndrome), low grade (HCC)- Primary Low grade myelodysplastic syndrome lesions Macrocytic anemia Unspecified deficiency anemia 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 (HCC) Macroglobulinemia Iron overload, 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 documented in this encounter [facility] note* Diagnosis Onset Date Resolution Status HTN (hypertension), benign c hronic Lightheadedness chronic Myelodysplastic syndrome [facility] Work Phone: Evaluation note* Diagnosis Encounter for education- Primary Counseling NOS MDS (myelodysplastic syndrome), low grade (HCC) Low grade myelodysplastic syndrome lesions documented in this encounter [facility] note* Diagnosis MDS (myelodysplastic syndrome), low grade (HCC)- Primary Low grade myelodysplastic syndrome lesions Macrocytic anemia Unspecified deficiency anemia 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 (HCC) Macroglobulinemia Iron overload, 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 documented in this encounter [facility] note* Diagnosis 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 (HCC)- Primary Macroglobulinemia Macrocytic anemia Unspecified deficiency anemia MDS (myelodysplastic syndrome), low grade (HCC) Low grade myelodysplastic syndrome lesions documented in this encounter [facility] note* Diagnosis Macrocytic anemia- Primary Unspecified deficiency anemia MDS (myelodysplastic syndrome), low grade (HCC) Low grade myelodysplastic syndrome lesions documented in this encounter [facility] note* Diagnosis Macrocytic anemia- Primary Unspecified deficiency anemia MDS (myelodysplastic syndrome), low grade (HCC) Low grade myelodysplastic syndrome lesions documented in this encounter [facility] note* Diagnosis Macrocytic anemia- Primary Unspecified deficiency anemia MDS (myelodysplastic syndrome), low grade (HCC) Low grade myelodysplastic syndrome lesions documented in this encounter [facility] note* Diagnosis Chronic midline low back pain without sciatica MDS (myelodysplastic syndrome), low grade (HCC) Low grade myelodysplastic syndrome lesions 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 (HCC) Macroglobulinemia documented in this encounter [facility] note* Diagnosis MDS (myelodysplastic syndrome), low grade (HCC)- Primary Low grade myelodysplastic syndrome lesions Macrocytic anemia Unspecified deficiency anemia documented in this encounter [facility] note* Diagnosis MDS (myelodysplastic syndrome), low grade (HCC)- Primary Low grade myelodysplastic syndrome lesions Macrocytic anemia Unspecified deficiency anemia documented in this encounter [facility] note* Diagnosis MDS (myelodysplastic syndrome), low grade (HCC)- Primary Low grade myelodysplastic syndrome lesions Macrocytic anemia Unspecified deficiency anemia documented in this encounter [facility] note* Diagnosis Chronic midline low back pain without sciatica MDS (myelodysplastic syndrome), low grade (HCC) Low grade myelodysplastic syndrome lesions 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 (HCC) Macroglobulinemia documented in this encounter [facility] note* Diagnosis MDS (myelodysplastic syndrome), low grade (HCC)- Primary Low grade myelodysplastic syndrome lesions Macrocytic anemia Unspecified deficiency anemia documented in this encounter [facility] note* Diagnosis MDS (myelodysplastic syndrome), low grade (HCC) Low grade myelodysplastic syndrome lesions documented in this encounter [facility] note* Diagnosis Chronic midline low back pain without sciatica MDS (myelodysplastic syndrome), low grade (HCC) Low grade myelodysplastic syndrome lesions 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 (HCC) Macroglobulinemia documented in this encounter [facility] note* Diagnosis MDS (myelodysplastic syndrome), low grade (HCC)- Primary Low grade myelodysplastic syndrome lesions Macrocytic anemia Unspecified deficiency [facility] Diagnosis MDS (myelodysplastic syndrome), low grade (HCC)- Primary Low grade myelodysplastic syndrome lesions Macrocytic anemia Unspecified deficiency anemia [facility]* Diagnosis MDS (myelodysplastic syndrome), low grade (HCC)- Primary Low grade myelodysplastic syndrome lesions Macrocytic anemia Unspecified deficiency anemia [facility] Diagnosis Chronic midline low back pain without sciatica MDS (myelodysplastic syndrome), low grade (HCC) Low grade myelodysplastic syndrome lesions 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 (HCC) Macroglobulinemia [facility] Diagnosis MDS (myelodysplastic syndrome), low grade (HCC)- Primary Low grade myelodysplastic syndrome lesions Macrocytic anemia Unspecified deficiency anemia [facility] Diagnosis Splenomegaly- Primary [facility] Diagnosis MDS (myelodysplastic syndrome), low grade (HCC)- Primary Low grade myelodysplastic syndrome lesions Macrocytic anemia Unspecified deficiency anemia [facility] Diagnosis Splenomegaly [facility] Diagnosis Chronic midline low back pain without sciatica MDS (myelodysplastic syndrome), low grade (HCC) Low grade myelodysplastic syndrome lesions 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 (HCC) Macroglobulinemia [facility] Diagnosis MDS (myelodysplastic syndrome), low grade (HCC)- Primary Low grade myelodysplastic syndrome lesions [facility]* Diagnosis BPH with obstruction/lower urinary tract symptoms Hypertrophy of prostate with urinary obstruction and other lower urinary tract symptoms (LUTS) [facility] Diagnosis Anxiety with depression- Primary Encounter for screening examination for other mental health and behavioral disorders Screening for depression Polyneuropathy in other diseases classified elsewhere (HCC) Polyneuropathy in other diseases classified elsewhere Diastolic dysfunction Heart disease, unspecified Early satiety MDS (myelodysplastic syndrome), low grade (HCC) Low grade myelodysplastic syndrome lesions Chronic fatigue Other malaise and fatigue [facility] Diagnosis 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 (HCC)- Primary Macroglobulinemia MDS (myelodysplastic syndrome), low grade (HCC) Low grade myelodysplastic syndrome lesions Macrocytic anemia Unspecified deficiency anemia [facility]* Diagnosis Subclinical hypothyroidism- Primary Other specified acquired hypothyroidism [facility]* Diagnosis MDS (myelodysplastic syndrome), low grade (HCC)- Primary Low grade myelodysplastic syndrome lesions Macrocytic anemia Unspecified deficiency anemia documented in this encounter [facility] note* Diagnosis MDS (myelodysplastic syndrome), low grade (HCC)- Primary Low grade myelodysplastic syndrome lesions Anemia, unspecified type documented in this encounter [facility] note* Diagnosis MDS (myelodysplastic syndrome), low grade (HCC) Low grade myelodysplastic syndrome lesions documented in this encounter [facility] note* Diagnosis MDS (myelodysplastic syndrome), low grade (HCC)- Primary Low grade myelodysplastic syndrome lesions Macrocytic anemia Unspecified deficiency anemia [facility]* Diagnosis Chronic midline low back pain without sciatica MDS (myelodysplastic syndrome), low grade (HCC) Low grade myelodysplastic syndrome lesions 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 Macroglobulinemia documented in this encounter [facility] note* Diagnosis Prostatitis, acute Acute prostatitis documented in this encounter [facility] note* Diagnosis MDS (myelodysplastic syndrome), low grade (HCC)- Primary Low grade myelodysplastic syndrome lesions Macrocytic anemia Unspecified deficiency anemia [facility] Diagnosis MDS (myelodysplastic syndrome), low grade (HCC)- Primary Low grade myelodysplastic syndrome lesions Macrocytic anemia Unspecified deficiency anemia documented in this encounter [facility] note* Diagnosis 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- Primary Macroglobulinemia MDS (myelodysplastic syndrome), low grade (HCC) Low grade myelodysplastic syndrome lesions Macrocytic anemia Unspecified deficiency anemia documented in this encounter [facility] note* Diagnosis MDS (myelodysplastic syndrome), low grade (HCC)- Primary Low grade myelodysplastic syndrome lesions Macrocytic anemia Unspecified deficiency anemia [facility]* Diagnosis Chronic GERD documented in this encounter [facility] note* Diagnosis MDS (myelodysplastic syndrome), low grade (HCC)- Primary Low grade myelodysplastic syndrome lesions Macrocytic anemia Unspecified deficiency anemia [facility]* Diagnosis Chronic midline low back pain without sciatica MDS (myelodysplastic syndrome), low grade (HCC) Low grade myelodysplastic syndrome lesions 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 Macroglobulinemia [facility]* Diagnosis MDS (myelodysplastic syndrome), low grade (HCC)- Primary Low grade myelodysplastic syndrome lesions Macrocytic anemia Unspecified deficiency anemia [facility]* Diagnosis MDS (myelodysplastic syndrome), low grade (HCC)- Primary Low grade myelodysplastic syndrome lesions Macrocytic anemia Unspecified deficiency anemia [facility]* Diagnosis MDS (myelodysplastic syndrome), low grade (HCC)- Primary Low grade myelodysplastic syndrome lesions Macrocytic anemia Unspecified deficiency anemia [facility]* Diagnosis Subclinical hypothyroidism Other specified acquired hypothyroidism [facility]* Diagnosis Chronic midline low back pain without sciatica MDS (myelodysplastic syndrome), low grade (HCC) Low grade myelodysplastic syndrome lesions 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 Macroglobulinemia [facility]* Diagnosis Screening for depression Anxiety with depression [facility]* Diagnosis BPH with obstruction/lower urinary tract symptoms Hypertrophy of prostate with urinary obstruction and other lower urinary tract symptoms (LUTS) [facility]* Diagnosis MDS (myelodysplastic syndrome), low grade (HCC)- Primary Low grade myelodysplastic syndrome lesions Macrocytic anemia Unspecified deficiency anemia 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 Macroglobulinemia Iron overload Other disorders of iron metabolism Chronic midline low back pain without sciatica [facility] Diagnosis Subclinical hypothyroidism Other specified acquired hypothyroidism [facility]* Diagnosis Chronic midline low back pain without sciatica MDS (myelodysplastic syndrome), low grade (HCC) Low grade myelodysplastic syndrome lesions 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 Macroglobulinemia [facility]* Diagnosis MDS (myelodysplastic syndrome), low grade (HCC) Low grade myelodysplastic syndrome lesions [facility]* Diagnosis Chronic midline low back pain without sciatica MDS (myelodysplastic syndrome), low grade (HCC) Low grade myelodysplastic syndrome lesions 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 Macroglobulinemia [facility]* Diagnosis MDS (myelodysplastic syndrome), low grade (HCC)- Primary Low grade myelodysplastic syndrome lesions Macrocytic anemia Unspecified deficiency anemia Iron overload Other disorders of iron metabolism Chronic midline low back pain without sciatica 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 Macroglobulinemia Insomnia due to medical condition Insomnia due to medical condition classified elsewhere [facility] Diagnosis Benign prostatic hyperplasia with nocturia [facility]* Diagnosis Screening for depression Anxiety with depression [facility]* Diagnosis Chronic GERD [facility] Diagnosis Hypokalemia- Primary Hypopotassemia Anxiety with depression Urgency of urination MDS (myelodysplastic syndrome), low grade (HCC) Low grade myelodysplastic syndrome lesions BPH with obstruction/lower urinary tract symptoms Hypertrophy of prostate with urinary obstruction and other lower urinary tract symptoms (LUTS) Diastolic dysfunction Heart disease, unspecified Chronic fatigue Other malaise and fatigue [facility]* Diagnosis MDS (myelodysplastic syndrome), low grade (HCC) Low grade myelodysplastic syndrome lesions [facility]* Diagnosis Seasonal allergic rhinitis, unspecified trigger- Primary [facility]* Diagnosis MDS (myelodysplastic syndrome), low grade (HCC)- Primary Low grade myelodysplastic syndrome lesions Chronic midline low back pain without sciatica 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 Macroglobulinemia Iron overload Other disorders of iron metabolism Insomnia due to medical condition Insomnia due to medical condition classified elsewhere [facility]* Diagnosis BPH with obstruction/lower urinary tract symptoms Hypertrophy of prostate with urinary obstruction and other lower urinary tract symptoms (LUTS) Screening for depression Anxiety with depression documented in this encounter [facility] note* Diagnosis MDS (myelodysplastic syndrome), low grade (HCC)- Primary Low grade myelodysplastic syndrome lesions Iron overload Other disorders of iron metabolism Splenomegaly [facility]* Diagnosis Subclinical hypothyroidism Other specified acquired hypothyroidism documented in this encounter [facility] note* Diagnosis MDS (myelodysplastic syndrome), low grade (HCC) Low grade myelodysplastic syndrome lesions Iron overload Other disorders of iron metabolism Splenomegaly documented in this encounter [facility] note* Diagnosis MDS (myelodysplastic syndrome), low grade (HCC)- Primary Low grade myelodysplastic syndrome lesions Macrocytic anemia Unspecified deficiency anemia 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 (HCC) Macroglobulinemia Iron overload, 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 Your labs and CAT scan were basically unremarkable. Follow-up with your primary care provider if not improving.[facility] Work Phone: [facility] (narrative)* Diagnostic Procedure Only (Urgent) - Closed Specialty Diagnoses / Procedures Referred By Contac t Referred To Contact XR IMAGING Diagnoses MDS (myelodysplastic syndrome), low grade (HCC) Pancytopenia (HCC) Left lower quadrant abdominal pain Procedures XR ABDOMEN 1V SUPINE RADIOLOGIC EXAM ABDOMEN 1 VIEW Sisi Blanchard APRN.AERIAL ERECTOR [address] [place] [address] Xr Imaging Referral ID Status Reason Start Date Expiration Date V isits Requested Visits Authorized [id number] Closed Auto-Generate d Referral 05/01/2023 05/30/2024 1 1 [facility] for referral (narrative)* Diagnostic Procedure Only (Urgent) - Closed Specialty Diagnoses / Procedures Referred By Contac t Referred To Contact XR IMAGING Diagnoses MDS (myelodysplastic syndrome), low grade (HCC) Pancytopenia (HCC) Left lower quadrant abdominal pain Procedures XR ABDOMEN 1V SUPINE RADIOLOGIC EXAM ABDOMEN 1 VIEW Sisi Blanchard APRN.CNP [address] [place] [address] [place] [address] Referral ID Status Reason Start Date Expiration Date V isits Requested Visits Authorized [id number] Closed Auto-Generate d Referral 05/01/2023 05/30/2024 1 1 [facility] for referral (narrative)* Diagnostic Procedure Only (Routine) - Authorized Specialty Diagnoses / Procedures Referred By Contac t Referred To Contact US IMAGING Diagnoses Splenomegaly Procedures US ABD SPLEEN US ABDOMINAL REAL TIME W/IMAGE LIMITED Steven Akers DO [address] [address] [place] [address] Referral ID Status Reason Start Date Expiration Date Visits Requested Visits Authorized [id number] Authorized Auto-Generat ed Referral 06/09/2024 07/09/2025 1 1 [facility] for referral (narrative)* Diagnostic Procedure Only (Routine) - Closed Specialty Diagnoses / Procedures Referred By Contac t Referred To Contact XR IMAGING Diagnoses Prostatitis, acute Procedures XR ABDOMEN 1V SUPINE RADIOLOGIC EXAM ABDOMEN 1 VIEW Shaheed Cervantes MD [address] [place] [address] [place] [address] Referral ID Status Reason Start Date Expiration Date V isits Requested Visits Authorized [id number] Closed Auto-Generate d Referral 09/14/2021 10/14/2022 1 1 [facility] for referral (narrative)No reason for referral information [facility] Work Phone: Reason for visit Narrative* Diagnostic Procedure Only (Urgent) - Closed Specialty Diagnoses / Procedures Referred By Contac t Referred To Contact XR IMAGING Diagnoses MDS (myelodysplastic syndrome), low grade (HCC) Pancytopenia (HCC) Left lower quadrant abdominal pain Procedures XR ABDOMEN 1V SUPINE RADIOLOGIC EXAM ABDOMEN 1 VIEW Sisi Blanchard APRN.AERIAL ERECTOR [address] [place] [address] [place] [address] Referral ID Status Reason Start Date Expiration Date V isits Requested Visits Authorized [id number] Closed Auto-Generate d Referral 05/01/2023 05/30/2024 1 [facility] Diagnostic Procedure Only (Routine) - Closed Specialty Diagnoses / Procedures Referred By Tiffani webb Referred To Contact XR IMAGING Diagnoses Prostatitis, acute Procedures XR ABDOMEN 1V SUPINE RADIOLOGIC EXAM ABDOMEN 1 VIEW Shaheed Cervantes MD [address] [place] [address] [place] [address] Referral ID Status Reason Start Date Expiration Date V isits Requested Visits Authorized [id number] Closed Auto-Generate d Referral 09/14/2021 10/14/2022 1 1 [facility] Advance Directives No Advanced Directives Records FoundDocuments on File Type Date Recorded 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 Advance Directive(s) 12/21/2021 5:03 PM Advance Directive(s) 09/02/2018 12:27 PM Advance Directive(s) 04/30/2017 6:58 AM Advance Directive Response Recorded Date/ Time Living Will No June 05, 2020 8:53pm Power of Fall Intern No June 05 0 8:53pm Advance Directive Response Recorded Date/ Time Living Will No May 09, 2022 6:06pm Power of Fall Intern No May 09 6:06pm Advance Directive Response Recorded Date/ Time Living Will No May 10, 2022 3 :11pm Power of Fall Intern No May 10, 2022 3:11pm Documents on File Type Date Recorded 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 Advance Directive(s) 01/29/2023 8:04 AM Documents on File Type Date Recorded 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 Yes February 10, 2025 12:56pm Name of Medical Power of Fall Intern ? February 10, 2025 12:56pm Chief Complaint and Reason for Visit Chief Complaint 1 UNIT PRBC Spinal stenosis, lumbar region without neurogenic 1 UNIT PRBC 2ND OPINION-MRI ABNORMAL MRI Acute MED ONC Myelodysplastic syndrome Reason for Visit Abnormal magnetic re sonance imaging of bone Myelodysplastic syndrome Waldenstrom macroglobulinemia Abnormal magnetic resonance imaging of bone Myelodysplastic syndrome Waldenstrom macroglobulinemia Chief Complaint Acute Myelodysplastic syndrome 3MO LABS PRIOR REVIEW PET SCAN RESULTS CHEMO ED CVD assessment 4WKS LABS blood transfusion NEUTROPENIC FEVER, TRAUMATIC ANEMIA, PETECHIAE NEUTROPENIC FEVER, PANCYTOPENIA, UTI Reason for Visit Abnormal magnetic re sonance imaging of bone Myelodysplastic syndrome Waldenstrom macroglobulinemia Tiredness Abnormal magnetic resonance imaging of bone Myelodysplastic syndrome Waldenstrom macroglobulinemia Abnormal magnetic resonance imaging of bone Myelodysplastic syndrome Waldenstrom macroglobulinemia Encounter for education Abnormal magnetic resonance imaging of bone Myelodysplastic syndrome Waldenstrom macroglobulinemia HTN (hypertension), benign Myelodysplastic syndrome Constipation Headache Myelodysplastic syndrome Neutropenic fever Signs and symptoms of anemia Symptomatic anemia Thrombocytopenia Chief Complaint Acute Myelodysplastic syndrome 3MO LABS PRIOR REVIEW PET SCAN RESULTS CHEMO ED CVD assessment 4WKS LABS blood transfusion NEUTROPENIC FEVER, TRAUMATIC ANEMIA, PETECHIAE NEUTROPENIC FEVER, PANCYTOPENIA, UTI NEUTROPENIC FEVER, PANCYTOPENIA, UTI NEUTROPENIC FEVER, PANCYTOPENIA, UTI NEUTROPENIC FEVER, PANCYTOPENIA, UTI NEUTROPENIC FEVER, PANCYTOPENIA, UTI NEUTROPENIC FEVER, PANCYTOPENIA, UTI NEUTROPENIC FEVER, PANCYTOPENIA, UTI Reason for Visit Abnormal magnetic re sonance imaging of bone Myelodysplastic syndrome Waldenstrom macroglobulinemia Tiredness Abnormal magnetic resonance imaging of bone Myelodysplastic syndrome Waldenstrom macroglobulinemia Abnormal magnetic resonance imaging of bone Myelodysplastic syndrome Waldenstrom macroglobulinemia Encounter for education Abnormal magnetic resonance imaging of bone Myelodysplastic syndrome Waldenstrom macroglobulinemia HTN (hypertension), benign Myelodysplastic syndrome Constipation Headache Myelodysplastic syndrome Neutropenic fever Pancytopenia Signs and symptoms of anemia Symptomatic anemia Thrombocytopenia Myelodysplastic syndrome Chief Complaint 4WKS LABS 5WKS LABS blood transfusion 2 UNITS PRBC 1 unit PRBC 1 UNIT PRBC Reason for Visit High serum ferritin Myelodysplastic syndrome High serum ferritin Myelodysplastic syndrome Waldenstrom macroglobulinemia Chief Complaint 5WKS LABS blood transfusion 2 UNITS PRBC 1 unit PRBC 1 UNIT PRBC MASCI CONCERNED ABOUT EKG 30 DAY EVENET RECORDER 1 UNIT PRBC ABD PAIN Reason for Visit High serum ferritin Myelodysplastic syndrome Waldenstrom macroglobulinemia BARRON (dyspnea on exertion) Fatigue HTN (hypertension), benign Lightheadedness Myelodysplastic syndrome Chief Complaint 5WKS LABS blood transfusion 2 UNITS PRBC 1 unit PRBC 1 UNIT PRBC MASCI CONCERNED ABOUT EKG 30 DAY EVENET RECORDER 1 UNIT PRBC ABD PAIN DYSPNEA/SOB Reason for Visit High serum ferritin Myelodysplastic syndrome Waldenstrom macroglobulinemia BARRON (dyspnea on exertion) Fatigue HTN (hypertension), benign Lightheadedness Myelodysplastic syndrome Chief Complaint 2 UNITS PRBC 1 unit PRBC 1 UNIT PRBC MASCI CONCERNED ABOUT EKG 30 DAY EVENET RECORDER 1 UNIT PRBC ABD PAIN DYSPNEA/SOB Reason for Visit BARRON (dyspnea on exer tion) Fatigue HTN (hypertension), benign Lightheadedness Myelodysplastic syndrome Chief Complaint 2 UNITS PRBC 1 unit PRBC 1 UNIT PRBC MASCI CONCERNED ABOUT EKG 30 DAY EVENET RECORDER 1 UNIT PRBC ABD PAIN DYSPNEA/SOB LOW GRADE MDS 1 unit PRBC's Reason for Visit BARRON (dyspnea on exer tion) Fatigue HTN (hypertension), benign Lightheadedness Myelodysplastic syndrome Chief Complaint 1 unit PRBC 1 UNIT PRBC MASCI CONCERNED ABOUT EKG 30 DAY EVENET RECORDER 1 UNIT PRBC ABD PAIN DYSPNEA/SOB LOW GRADE MDS 1 unit PRBC's 1 unit PRBC's 6 wk FU 1 UNIT PRBC Reason for Visit BARRON (dyspnea on exer tion) Fatigue HTN (hypertension), benign Lightheadedness Myelodysplastic syndrome BARRON (dyspnea on exertion) Fatigue HTN (hypertension), benign Lightheadedness Myelodysplastic syndrome Chief Complaint MASCI CONCERNED ABOU T EKG 30 DAY EVENET RECORDER 1 UNIT PRBC ABD PAIN DYSPNEA/SOB LOW GRADE MDS 1 unit PRBC's 1 unit PRBC's 6 wk FU 1 UNIT PRBC 1 UNIT PRRBC Reason for Visit BARRON (dyspnea on exer tion) Fatigue HTN (hypertension), benign Lightheadedness Myelodysplastic syndrome BARRON (dyspnea on exertion) Fatigue HTN (hypertension), benign Lightheadedness Myelodysplastic syndrome Chief Complaint 30 DAY EVENET RECORD ER 30 DAY MONITOR 1 UNIT PRBC ABD PAIN DYSPNEA/SOB LOW GRADE MDS 1 unit PRBC's 1 unit PRBC's 6 wk FU 1 UNIT PRBC 1 UNIT PRRBC FALL 1 UNIT PRBC Reason for Visit BARRON (dyspnea on exer tion) Fatigue HTN (hypertension), benign Lightheadedness Myelodysplastic syndrome Chief Complaint 1 UNIT PRBC ABD PAIN DYSPNEA/SOB LOW GRADE MDS 1 unit PRBC's 1 unit PRBC's 6 wk FU 1 UNIT PRBC 1 UNIT PRRBC FALL 1 UNIT PRBC 1 UNIT PRBC Reason for Visit BARRON (dyspnea on exer tion) Fatigue HTN (hypertension), benign Lightheadedness Myelodysplastic syndrome Chief Complaint 1 UNIT PRRBC FALL 1 UNIT PRBC 1 UNIT PRBC 1 UNIT PRBC 1 unit PRBC 1 UNIT PRBC Chief Complaint 1 UNIT PRBC 1 unit PRBC 1 UNIT PRBC 2 UNITSPRBC 1 UNIT PRBC Chief Complaint 1 UNIT PRBC 1 unit PRBC 1 UNIT PRBC 2 UNITSPRBC 1 UNIT PRBC 1 UNIT PRBC Chief Complaint 1 unit PRBC 1 UNIT PRBC 2 UNITSPRBC 1 UNIT PRBC 1 UNIT PRBC 1 UNIT PRBC Chief Complaint 1 UNIT PRBC 2 UNITSPRBC 1 UNIT PRBC 1 UNIT PRBC 1 UNIT PRBC 2 UNITS PRBC Chief Complaint 2 UNITSPRBC 1 UNIT PRBC 1 UNIT PRBC 1 UNIT PRBC 2 UNITS PRBC 6 M FU 2 UNITS PRBC Reason for Visit HTN (hypertension), benign Lightheadedness Myelodysplastic syndrome Chief Complaint 1 UNIT PRBC 1 UNIT PRBC 1 UNIT PRBC 2 UNITS PRBC 6 M FU 2 UNITS PRBC 2 UNITS PRBC Reason for Visit HTN (hypertension), benign Lightheadedness Myelodysplastic syndrome Chief Complaint 1 UNIT PRBC 1 UNIT PRBC 1 UNIT PRBC 2 UNITS PRBC 6 M FU 2 UNITS PRBC 2 UNITS PRBC 2 UNITS PRBC Reason for Visit HTN (hypertension), benign Lightheadedness Myelodysplastic syndrome Chief Complaint 1 UNIT PRBC 1 UNIT PRBC 2 UNITS PRBC 6 M FU 2 UNITS PRBC 2 UNITS PRBC 2 UNITS PRBC 2 UNITS PRBCS Reason for Visit HTN (hypertension), benign Lightheadedness Myelodysplastic syndrome Chief Complaint Admit Date 1 unit PRBC's September 24, 2024 8:34am 2 UNITS PRBC October 01, 2024 8:30am 2 UNITS PRBC October 22, 2024 9:10am 2 UNITS PRBC November 12, 2024 8: 46am 2 UNITS PRBC December 03, 2024 8 :02am 2 UNITS PRBC December 17, 2024 8 :31am 2 UNITS PRBC December 31, 2024 8:21am 2 UNITS PRBC January 14, 2025 7:58 am Chief Complaint Admit Date 2 UNITS PRBC October 01, 2024 8:30am 2 UNITS PRBC October 22, 2024 9:10am 2 UNITS PRBC November 12, 2024 8: 46am 2 UNITS PRBC December 03, 2024 8 :02am 2 UNITS PRBC December 17, 2024 8 :31am 2 UNITS PRBC December 31, 2024 8:21am 2 UNITS PRBC January 14, 2025 7:58 am 2 UNITS PRBC January 28, 2025 8:0 9am Chief Complaint Admit Date 2 UNITS PRBC November 12, 2024 8: 46am 2 UNITS PRBC December 03, 2024 8 :02am 2 UNITS PRBC December 17, 2024 8 :31am 2 UNITS PRBC December 31, 2024 8:21am 2 UNITS PRBC January 14, 2025 7:58 am 2 UNITS PRBC January 28, 2025 8:0 9am urinary incontinence February 10, 2025 12: 47pm 2 UNITS PRBC February 11, 2025 8:03 am 2 units PRBC's February 25, 2025 8:2 4am Chief Complaint Admit Date 2 UNITS PRBC December 03, 2024 8 :02am 2 UNITS PRBC December 17, 2024 8 :31am 2 UNITS PRBC December 31, 2024 8:21am 2 UNITS PRBC January 14, 2025 7:58 am 2 UNITS PRBC January 28, 2025 8:0 9am urinary incontinence February 10, 2025 12: 47pm 2 UNITS PRBC February 11, 2025 8:03 am 2 units PRBC's February 25, 2025 8:2 4am 2 UNITS PRBC March 11, 2025 8:07am 1 UNIT PRBC March 25, 2025 8:05a m Chief Complaint Admit Date 2 UNITS PRBC December 17, 2024 8 :31am 2 UNITS PRBC December 31, 2024 8:21am 2 UNITS PRBC January 14, 2025 7:58 am 2 UNITS PRBC January 28, 2025 8:0 9am urinary incontinence February 10, 2025 12: 47pm 2 UNITS PRBC February 11, 2025 8:03 am 2 units PRBC's February 25, 2025 8:2 4am 2 UNITS PRBC March 11, 2025 8:07am 1 UNIT PRBC March 25, 2025 8:05a m 2 UNITS PRBC April 08, 2025 8:05a m Chief Complaint Admit Date 2 UNITS PRBC December 31, 2024 8:21am 2 UNITS PRBC January 14, 2025 7:58 am 2 UNITS PRBC January 28, 2025 8:0 9am urinary incontinence February 10, 2025 12: 47pm 2 UNITS PRBC February 11, 2025 8:03 am 2 units PRBC's February 25, 2025 8:2 4am 2 UNITS PRBC March 11, 2025 8:07am 1 UNIT PRBC March 25, 2025 8:05a m 2 UNITS PRBC April 08, 2025 8:05a m 2 UNITS PRBC April 22, 2025 8:31 am Chief Complaint Admit Date 2 UNITS PRBC January 14, 2025 7:58 am 2 UNITS PRBC January 28, 2025 8:0 9am urinary incontinence February 10, 2025 12: 47pm 2 UNITS PRBC February 11, 2025 8:03 am 2 units PRBC's February 25, 2025 8:2 4am 2 UNITS PRBC March 11, 2025 8:07am 1 UNIT PRBC March 25, 2025 8:05a m 2 UNITS PRBC April 08, 2025 8:05a m 2 UNITS PRBC April 22, 2025 8:31 am 2 UNITS PRBC May 06, 2025 8:36 am Chief Complaint Admit Date 2 UNITS PRBC January 28, 2025 8:0 9am urinary incontinence February 10, 2025 12: 47pm 2 UNITS PRBC February 11, 2025 8:03 am 2 units PRBC's February 25, 2025 8:2 4am 2 UNITS PRBC March 11, 2025 8:07am 1 UNIT PRBC March 25, 2025 8:05a m 2 UNITS PRBC April 08, 2025 8:05a m 2 UNITS PRBC April 22, 2025 8:31 am 2 UNITS PRBC May 06, 2025 8:36 am 2 UNITS PRBC May 20, 2025 8:25 am Chief Complaint Admit Date urinary incontinence February 10, 2025 12: 47pm 2 UNITS PRBC February 11, 2025 8:03 am 2 units PRBC's February 25, 2025 8:2 4am 2 UNITS PRBC March 11, 2025 8:07am 1 UNIT PRBC March 25, 2025 8:05a m 2 UNITS PRBC April 08, 2025 8:05a m 2 UNITS PRBC April 22, 2025 8:31 am 2 UNITS PRBC May 06, 2025 8:36 am 2 UNITS PRBC May 20, 2025 8:25 am 2 UNITS PRBC June 03, 2025 8:05 am Chief Complaint Admit Date 2 units PRBC's February 25, 2025 8:2 4am 2 UNITS PRBC March 11, 2025 8:07am 1 UNIT PRBC March 25, 2025 8:05a m 2 UNITS PRBC April 08, 2025 8:05a m 2 UNITS PRBC April 22, 2025 8:31 am 2 UNITS PRBC May 06, 2025 8:36 am 2 UNITS PRBC May 20, 2025 8:25 am 2 UNITS PRBC June 03, 2025 8:05 am 1 unit PRBC's June 17, 2025 8:0 5am Chief Complaint Admit Date 2 UNITS PRBC March 11, 2025 8:07am 1 UNIT PRBC March 25, 2025 8:05a m 2 UNITS PRBC April 08, 2025 8:05a m 2 UNITS PRBC April 22, 2025 8:31 am 2 UNITS PRBC May 06, 2025 8:36 am 2 UNITS PRBC May 20, 2025 8:25 am 2 UNITS PRBC June 03, 2025 8:05 am 1 UNIT PRBC June 17, 2025 8:0 5am 2 UNITS PRBC July 01, 2025 8: 39am Chief Complaint Admit Date 1 UNIT PRBC March 25, 2025 8:05a m 2 UNITS PRBC April 08, 2025 8:05a m 2 UNITS PRBC April 22, 2025 8:31 am 2 UNITS PRBC May 06, 2025 8:36 am 2 UNITS PRBC May 20, 2025 8:25 am 2 UNITS PRBC June 03, 2025 8:05 am 1 UNIT PRBC June 17, 2025 8:0 5am 2 UNITS PRBC July 01, 2025 8: 39am 2 UNITS PRBC July 15, 2025 8:39am Chief Complaint Admit Date 2 UNITS PRBC April 22, 2025 8:31 am 2 UNITS PRBC May 06, 2025 8:36 am 2 UNITS PRBC May 20, 2025 8:25 am 2 UNITS PRBC June 03, 2025 8:05 am 1 UNIT PRBC June 17, 2025 8:0 5am 2 UNITS PRBC July 01, 2025 8: 39am 2 UNITS PRBC July 15, 2025 8:39am 2 units PRBC's July 29, 2025 8:08am 2 UNITS PRBC August 12, 2025 8: 37am Chief Complaint Admit Date 2 UNITS PRBC April 22, 2025 8:31 am 2 UNITS PRBC May 06, 2025 8:36 am 2 UNITS PRBC May 20, 2025 8:25 am 2 UNITS PRBC June 03, 2025 8:05 am 1 UNIT PRBC June 17, 2025 8:0 5am 2 UNITS PRBC July 01, 2025 8: 39am 2 UNITS PRBC July 15, 2025 8:39am 2 units PRBC's July 29, 2025 8:08am Chief Complaint Admit Date 2 UNITS PRBC May 20, 2025 8:25 am 2 UNITS PRBC June 03, 2025 8:05 am 1 UNIT PRBC June 17, 2025 8:0 5am 2 UNITS PRBC July 01, 2025 8: 39am 2 UNITS PRBC July 15, 2025 8:39am 2 units PRBC's July 29, 2025 8:08am 2 UNITS PRBC August 12, 2025 8: 37am 2 UNITS PRBC August 26, 2025 8 :10am 2 UNITS PRBC September 09, 2025 8 :20am Family History No Family History Records Found Relationship Condition Age at Onset Recorded Date/T jared sister Malignant neoplasm of colon Unknown Hemorrhagic disorder Unknown mother Cardiac disease Unknown Diabetes mellitus Unknown father Cerebrovascular accident (CVA) 89 Reason for Referral Specialty Diagnoses / Procedures Referred By Contac t Referred To Contact CT IMAGING Diagnoses MDS (myelodysplastic syndrome), low grade (HCC) Waldenstrom macroglobulinemia (HCC) Splenomegaly Procedures CT CHEST W IVCON DIAGNOSTIC COMPUTED TOMOGRAPHY THORAX W/CONTRAST Steven Akers, DO [address] [place] [address] Ct Imaging Referral ID Status Reason Start Date Expiration Date Visits Requested Visits Authorized [id number] Pending Review Auto-Generat ed Referral 11/26/2022 12/26/2023 1 1 Specialty Diagnoses / Procedures Referred By Contac t Referred To Contact CT IMAGING Diagnoses MDS (myelodysplastic syndrome), low grade (HCC) Waldenstrom macroglobulinemia (HCC) Splenomegaly Procedures CT ABD/PEL W IVCON CT ABD & PELVIS W/CONTRAST Steven Akers, DO [address] [place] [address] Ct Imaging Referral ID Status Reason Start Date Expiration Date Visits Requested Visits Authorized [id number] Pending Review Auto-Generat ed Referral 11/26/2022 12/26/2023 1 1 Specialty Diagnoses / Procedures Referred By Contac t Referred To Contact Cardiology Diagnoses Bradycardia Procedures CONSULT TO CARDIOLOGY OFFICE/OUTPATIENT NEW HIGH MDM 60-74 MINUTES Steven Akers, DO [address] [place] [address] Referral ID Status Reason Start Date Expiration Date Visits Requested Visits Authorized [id number] Pending Review PCP Requested Referral 02/13/2023 02/13/2024 1 1 Specialty Diagnoses / Procedures Referred By Contac t [facility] Diagnoses Bradycardia Procedures ECG COMPLETE ECG ROUTINE ECG W/LEAST 12 LDS W/I&R Steven Akers, DO [address] [place] [address] [facility] [place] [address] [place] [address] Referral ID Status Reason Start Date Expiration Date Visits Requested Visits Authorized [id number] Pending Review Auto-Generat ed Referral 02/13/2023 02/13/2024 1 1 Specialty Diagnoses / Procedures Referred By Contac t Referred To Contact Diagnoses BPH with obstruction/lower urinary tract symptoms Sunday Carter PA-C [address] [place] [address] Referral ID Status Reason Start Date Expiration Date Visits Re quested Visits Authorized [id number] Closed 1 1 Specialty Diagnoses / Procedures Referred By Contac t Referred To Contact CT IMAGING Diagnoses MDS (myelodysplastic syndrome), low grade (HCC) Waldenstrom macroglobulinemia (HCC) Splenomegaly Procedures CT CHEST W IVCON DIAGNOSTIC COMPUTED TOMOGRAPHY THORAX W/CONTRAST Steven Akers, DO [address] [place] [address] Ct Imaging [facility] Referral ID Status Reason Start Date Expiration Date V isits Requested Visits Authorized [id number] Closed Auto-Generate d Referral 11/29/2022 11/09/2023 1 1 Specialty Diagnoses / Procedures Referred By Contac t Referred To Contact CT IMAGING Diagnoses MDS (myelodysplastic syndrome), low grade (HCC) Waldenstrom macroglobulinemia (HCC) Splenomegaly Procedures CT ABD/PEL W IVCON CT ABD & PELVIS W/CONTRAST Steven Akers, DO [address] [place] [address] Ct Imaging [facility] Referral ID Status Reason Start Date Expiration Date V isits Requested Visits Authorized [id number] Closed Auto-Generate d Referral 11/29/2022 11/09/2023 2 2 Referral ID Status Reason Start Date Expiration Date V isits Requested Visits Authorized [id number] Pending Review 1 1 Medications Administered Section Inactive Administered Medications - up to 3 most recent administrations Medication Order MAR Action Action Date Dose Rate Site luspatercept-aamt 75 mg in syringe 1.5 mL (REBLOZYL) 75 mg (rounded from 79.4 mg = 1 mg/kg/dose 79.4 kg Treatment plan Recorded weight), SUBCUTANEOUS, ONCE, 1 dose, On Sandra 02/06/23 at 1000, Refrigerate - EXP: (24 HR) Inject into the upper arm, thigh, and/or abdomen. Doses requiring larger reconstituted volumes (greater than 1.2 mL) should be divided into separate syringes; inject into separate sites. Given 02/06/2023 10:22 AM EDT 75 mg Arm, Right Inactive Administered Medications - up to 3 most recent administrations Medication Order [facility] Action Action Date Dose Rate Site luspatercept-aamt 75 mg in syringe 1.5 mL (REBLOZYL) 75 mg (rounded from 79.4 mg = 1 mg/kg/dose 79.4 kg Treatment plan Recorded weight), SUBCUTANEOUS, ONCE, 1 dose, On Fri02/27/23 at 1000, 2 syringes Refrigerate - EXP: (24 HR) Inject into the upper arm, thigh, and/or abdomen. Doses requiring larger reconstituted volumes (greater than 1.2 mL) should be divided into separate syringes; inject into separate sites. Given 02/27/2023 11:19 AM EDT 75 mg Arm, Right Inactive Administered Medications - up to 3 most recent administrations Medication Order [facility] Action Dose Rate Site luspatercept-aamt 100 mg in syringe 2 mL (REBLOZYL) 100 mg (rounded from 105.602 mg = 1.33 mg/kg/dose 79.4 kg Treatment plan Recorded weight), SUBCUTANEOUS, ONCE, 1 dose, On Fri03/20/23 at 0930, Refrigerate - EXP: (24 HR) Inject into the upper arm, thigh, and/or abdomen. Doses requiring larger reconstituted volumes (greater than 1.2 mL) should be divided into separate syringes; inject into separate sites. Given 03/20/2023 9:44 AM EDT 100 mg Ar m, Right Inactive Administered Medications - up to 3 most recent administrations Medication Order [facility] Action Action Dose Rate Site luspatercept-aamt 100 mg in syringe 2 mL (REBLOZYL) 100 mg (rounded from 105.602 mg = 1.33 mg/kg/dose 79.4 kg Treatment plan Recorded weight), SUBCUTANEOUS, ONCE, 1 dose, On Fri04/10/23 at 0900, Refrigerate - EXP: (24 HR) Inject into the upper arm, thigh, and/or abdomen. Doses requiring larger reconstituted volumes (greater than 1.2 mL) should be divided into separate syringes; inject into separate sites. Given 04/10/2023 9:45 AM EDT 100 mg Ar m, Right Inactive Administered Medications - up to 3 most recent administrations Medication Order [facility] Action Action Date Dose Rate Site luspatercept-aamt 100 mg in syringe 2 mL (REBLOZYL) 100 mg (rounded from 105.602 mg = 1.33 mg/kg/dose 79.4 kg Treatment plan Recorded weight), SUBCUTANEOUS, ONCE, 1 dose, On Fri05/01/23 at 0930, Refrigerate - EXP: (24 HR) Inject into the upper arm, thigh, and/or abdomen. Doses requiring larger reconstituted volumes (greater than 1.2 mL) should be divided into separate syringes; inject into separate sites. Given 05/01/2023 9:35 AM EDT 100 mg Ar m, Right Inactive Administered Medications - up to 3 most recent administrations Medication Order [facility] Action Dose Rate Site luspatercept-aamt 138.95 mg in syringe 2.779 mL (REBLOZYL) 138.95 mg (1.75 mg/kg/dose 79.4 kg Treatment plan Recorded weight), SUBCUTANEOUS, ONCE, 1 dose, On Fri06/12/23 at 0930, Refrigerate - EXP: (24 HR) Inject into the upper arm, thigh, and/or abdomen. Doses requiring larger reconstituted volumes (greater than 1.2 mL) should be divided into separate syringes; inject into separate sites. Given 06/12/2023 10:09 AM EDT 138.95 mg Abdomen, LLQ Inactive Administered Medications - up to 3 most recent administrations Medication Order [facility] Action Action Date Dose Rate Site luspatercept-aamt 138.95 mg in syringe 2.779 mL (REBLOZYL) 138.95 mg (1.75 mg/kg/dose 79.4 kg Treatment plan Recorded weight), SUBCUTANEOUS, ONCE, 1 dose, On Fri07/03/23 at 0900, Refrigerate - EXP: (24 HR) Inject into the upper arm, thigh, and/or abdomen. Doses requiring larger reconstituted volumes (greater than 1.2 mL) should be divided into separate syringes; inject into separate sites. Given 07/03/2023 9:40 AM EDT 138.95 mg Abdomen, RLQ Inactive Administered Medications - up to 3 most recent administrations Medication Order [facility] Action Action Date Dose Rate Site luspatercept-aamt 138.95 mg in syringe 2.779 mL (REBLOZYL) 138.95 mg (1.75 mg/kg/dose 79.4 kg Treatment plan Recorded weight), SUBCUTANEOUS, ONCE, 1 dose, On Sandra 08/14/23 at 1130, Refrigerate - EXP: (24 HR) Inject into the upper arm, thigh, and/or abdomen. Doses requiring larger reconstituted volumes (greater than 1.2 mL) should be divided into separate syringes; inject into separate sites. Given 08/14/2023 11:49 AM EDT 138.95 mg Abdomen, LLQ Inactive Administered Medications - up to 3 most recent administrations Medication Order [facility] Action Dose Rate Site luspatercept-aamt 138.95 mg in syringe 2.779 mL (REBLOZYL) 138.95 mg (1.75 mg/kg/dose 79.4 kg Treatment plan Recorded weight), SUBCUTANEOUS, ONCE, 1 dose, On Sandra 09/04/23 at 1100, Refrigerate - EXP: (24 HR) Inject into the upper arm, thigh, and/or abdomen. Doses requiring larger reconstituted volumes (greater than 1.2 mL) should be divided into separate syringes; inject into separate sites. Given 09/04/2023 11:38 AM EDT 138.95 mg Abdomen, RLQ Inactive Administered Medications - up to 3 most recent administrations Medication Order [facility] Action Action Date Dose Rate Site luspatercept-aamt 138.95 mg in syringe 2.779 mL (REBLOZYL) 138.95 mg (1.75 mg/kg/dose 79.4 kg Treatment plan Recorded weight), SUBCUTANEOUS, ONCE, 1 dose, On Sandra 09/25/23 at 1030, Refrigerate - EXP: (24 HR) Inject into the upper arm, thigh, and/or abdomen. Doses requiring larger reconstituted volumes (greater than 1.2 mL) should be divided into separate syringes; inject into separate sites. Given 09/25/2023 11:06 AM EST 138.95 mg Abdomen, LLQ Inactive Administered Medications - up to 3 most recent administrations Medication Order [facility] Action Action Date Dose Rate Site luspatercept-aamt 138.95 mg in syringe 2.779 mL (REBLOZYL) 138.95 mg (1.75 mg/kg/dose 79.4 kg Treatment plan Recorded weight), SUBCUTANEOUS, ONCE, 1 dose, On Sandra 10/16/23 at 1100, Refrigerate - EXP: (24 HR) Inject into the upper arm, thigh, and/or abdomen. Doses requiring larger reconstituted volumes (greater than 1.2 mL) should be divided into separate syringes; inject into separate sites. Given 10/16/2023 11:38 AM EST 138.95 mg Abdomen, LLQ Summary Purpose Additional Source Comments Source Comments (unrecognize d section and content) In the event this informatio n is protected by the Federal Confidentiality of Alcohol and Drug Abuse Patient Records regulations: The Federal rules restrict any use of the information to criminally investigate or prosecute any alcohol or drug abuse patient.[facility] the event this information is protected by the Federal Confidentiality of Alcohol and Drug Abuse Patient Records regulations: The Federal rules restrict any use of the information to criminally investigate or prosecute any alcohol or drug abuse patient.[facility] the event this information is protected by the Federal Confidentiality of Alcohol and Drug Abuse Patient Records regulations: The Federal rules restrict any use of the information to criminally investigate or prosecute any alcohol or drug abuse patient.[facility] the event this information is protected by the Federal Confidentiality of Alcohol and Drug Abuse Patient Records regulations: The Federal rules restrict any use of the information to criminally investigate or prosecute any alcohol or drug abuse patient.[facility] the event this information is protected by the Federal Confidentiality of Alcohol and Drug Abuse Patient Records regulations: The Federal rules restrict any use of the information to criminally investigate or prosecute any alcohol or drug abuse patient.[facility] HospitalIn the event this information is protected by the Federal Confidentiality of Alcohol and Drug Abuse Patient Records regulations: The Federal rules restrict any use of the information to criminally investigate or prosecute any alcohol or drug abuse patient.[facility] HospitalIn the event this information is protected by the Federal Confidentiality of Alcohol and Drug Abuse Patient Records regulations: The Federal rules restrict any use of the information to criminally investigate or prosecute any alcohol or drug abuse patient.[facility] HospitalIn the event this information is protected by the Federal Confidentiality of Alcohol and Drug Abuse Patient Records regulations: The Federal rules restrict any use of the information to criminally investigate or prosecute any alcohol or drug abuse patient.[facility] HospitalIn the event this information is protected by the Federal Confidentiality of Alcohol and Drug Abuse Patient Records regulations: The Federal rules restrict any use of the information to criminally investigate or prosecute any alcohol or drug abuse patient.[facility] HospitalIn the event this information is protected by the Federal Confidentiality of Alcohol and Drug Abuse Patient Records regulations: The Federal rules restrict any use of the information to criminally investigate or prosecute any alcohol or drug abuse patient.[facility] HospitalIn the event this information is protected by the Federal Confidentiality of Alcohol and Drug Abuse Patient Records regulations: The Federal rules restrict any use of the information to criminally investigate or prosecute any alcohol or drug abuse patient.[facility] HospitalIn the event this information is protected by the Federal Confidentiality of Alcohol and Drug Abuse Patient Records regulations: The Federal rules restrict any use of the information to criminally investigate or prosecute any alcohol or drug abuse patient.[facility] HospitalIn the event this information is protected by the Federal Confidentiality of Alcohol and Drug Abuse Patient Records regulations: The Federal rules restrict any use of the information to criminally investigate or prosecute any alcohol or drug abuse patient.[facility] HospitalIn the event this information is protected by the Federal Confidentiality of Alcohol and Drug Abuse Patient Records regulations: The Federal rules restrict any use of the information to criminally investigate or prosecute any alcohol or drug abuse patient.[facility] HospitalIn the event this information is protected by the Federal Confidentiality of Alcohol and Drug Abuse Patient Records regulations: The Federal rules restrict any use of the information to criminally investigate or prosecute any alcohol or drug abuse patient.[facility] HospitalIn the event this information is protected by the Federal Confidentiality of Alcohol and Drug Abuse Patient Records regulations: The Federal rules restrict any use of the information to criminally investigate or prosecute any alcohol or drug abuse patient.[facility] HospitalIn the event this information is protected by the Federal Confidentiality of Alcohol and Drug Abuse Patient Records regulations: The Federal rules restrict any use of the information to criminally investigate or prosecute any alcohol or drug abuse patient.[facility] HospitalIn the event this information is protected by the Federal Confidentiality of Alcohol and Drug Abuse Patient Records regulations: The Federal rules restrict any use of the information to criminally investigate or prosecute any alcohol or drug abuse patient.[facility] HospitalIn the event this information is protected by the Federal Confidentiality of Alcohol and Drug Abuse Patient Records regulations: The Federal rules restrict any use of the information to criminally investigate or prosecute any alcohol or drug abuse patient.[facility] HospitalIn the event this information is protected by the Federal Confidentiality of Alcohol and Drug Abuse Patient Records regulations: The Federal rules restrict any use of the information to criminally investigate or prosecute any alcohol or drug abuse patient.[facility] HospitalIn the event this information is protected by the Federal Confidentiality of Alcohol and Drug Abuse Patient Records regulations: The Federal rules restrict any use of the information to criminally investigate or prosecute any alcohol or drug abuse patient.[facility] HospitalIn the event this information is protected by the Federal Confidentiality of Alcohol and Drug Abuse Patient Records regulations: The Federal rules restrict any use of the information to criminally investigate or prosecute any alcohol or drug abuse patient.[facility] HospitalIn the event this information is protected by the Federal Confidentiality of Alcohol and Drug Abuse Patient Records regulations: The Federal rules restrict any use of the information to criminally investigate or prosecute any alcohol or drug abuse patient.[facility] HospitalIn the event this information is protected by the Federal Confidentiality of Alcohol and Drug Abuse Patient Records regulations: The Federal rules restrict any use of the information to criminally investigate or prosecute any alcohol or drug abuse patient.[facility] HospitalIn the event this information is protected by the Federal Confidentiality of Alcohol and Drug Abuse Patient Records regulations: The Federal rules restrict any use of the information to criminally investigate or prosecute any alcohol or drug abuse patient.[facility] HospitalIn the event this information is protected by the Federal Confidentiality of Alcohol and Drug Abuse Patient Records regulations: The Federal rules restrict any use of the information to criminally investigate or prosecute any alcohol or drug abuse patient.[facility] HospitalIn the event this information is protected by the Federal Confidentiality of Alcohol and Drug Abuse Patient Records regulations: The Federal rules restrict any use of the information to criminally investigate or prosecute any alcohol or drug abuse patient.[facility] HospitalIn the event this information is protected by the Federal Confidentiality of Alcohol and Drug Abuse Patient Records regulations: The Federal rules restrict any use of the information to criminally investigate or prosecute any alcohol or drug abuse patient.[facility] HospitalIn the event this information is protected by the Federal Confidentiality of Alcohol and Drug Abuse Patient Records regulations: The Federal rules restrict any use of the information to criminally investigate or prosecute any alcohol or drug abuse patient.[facility] HospitalIn the event this information is protected by the Federal Confidentiality of Alcohol and Drug Abuse Patient Records regulations: The Federal rules restrict any use of the information to criminally investigate or prosecute any alcohol or drug abuse patient.[facility] HospitalIn the event this information is protected by the Federal Confidentiality of Alcohol and Drug Abuse Patient Records regulations: The Federal rules restrict any use of the information to criminally investigate or prosecute any alcohol or drug abuse patient.[facility] HospitalIn the event this information is protected by the Federal Confidentiality of Alcohol and Drug Abuse Patient Records regulations: The Federal rules restrict any use of the information to criminally investigate or prosecute any alcohol or drug abuse patient.[facility] HospitalIn the event this information is protected by the Federal Confidentiality of Alcohol and Drug Abuse Patient Records regulations: The Federal rules restrict any use of the information to criminally investigate or prosecute any alcohol or drug abuse patient.[facility] HospitalIn the event this information is protected by the Federal Confidentiality of Alcohol and Drug Abuse Patient Records regulations: The Federal rules restrict any use of the information to criminally investigate or prosecute any alcohol or drug abuse patient.[facility] HospitalIn the event this information is protected by the Federal Confidentiality of Alcohol and Drug Abuse Patient Records regulations: The Federal rules restrict any use of the information to criminally investigate or prosecute any alcohol or drug abuse patient.[facility] HospitalIn the event this information is protected by the Federal Confidentiality of Alcohol and Drug Abuse Patient Records regulations: The Federal rules restrict any use of the information to criminally investigate or prosecute any alcohol or drug abuse patient.[facility] HospitalIn the event this information is protected by the Federal Confidentiality of Alcohol and Drug Abuse Patient Records regulations: The Federal rules restrict any use of the information to criminally investigate or prosecute any alcohol or drug abuse patient.[facility] HospitalIn the event this information is protected by the Federal Confidentiality of Alcohol and Drug Abuse Patient Records regulations: The Federal rules restrict any use of the information to criminally investigate or prosecute any alcohol or drug abuse patient.[facility] HospitalIn the event this information is protected by the Federal Confidentiality of Alcohol and Drug Abuse Patient Records regulations: The Federal rules restrict any use of the information to criminally investigate or prosecute any alcohol or drug abuse patient.[facility] HospitalIn the event this information is protected by the Federal Confidentiality of Alcohol and Drug Abuse Patient Records regulations: The Federal rules restrict any use of the information to criminally investigate or prosecute any alcohol or drug abuse patient.[facility] HospitalIn the event this information is protected by the Federal Confidentiality of Alcohol and Drug Abuse Patient Records regulations: The Federal rules restrict any use of the information to criminally investigate or prosecute any alcohol or drug abuse patient.[facility] HospitalIn the event this information is protected by the Federal Confidentiality of Alcohol and Drug Abuse Patient Records regulations: The Federal rules restrict any use of the information to criminally investigate or prosecute any alcohol or drug abuse patient.[facility] HospitalIn the event this information is protected by the Federal Confidentiality of Alcohol and Drug Abuse Patient Records regulations: The Federal rules restrict any use of the information to criminally investigate or prosecute any alcohol or drug abuse patient.[facility] HospitalIn the event this information is protected by the Federal Confidentiality of Alcohol and Drug Abuse Patient Records regulations: The Federal rules restrict any use of the information to criminally investigate or prosecute any alcohol or drug abuse patient.[facility] HospitalIn the event this information is protected by the Federal Confidentiality of Alcohol and Drug Abuse Patient Records regulations: The Federal rules restrict any use of the information to criminally investigate or prosecute any alcohol or drug abuse patient.[facility] HospitalIn the event this information is protected by the Federal Confidentiality of Alcohol and Drug Abuse Patient Records regulations: The Federal rules restrict any use of the information to criminally investigate or prosecute any alcohol or drug abuse patient.[facility] HospitalIn the event this information is protected by the Federal Confidentiality of Alcohol and Drug Abuse Patient Records regulations: The Federal rules restrict any use of the information to criminally investigate or prosecute any alcohol or drug abuse patient.[facility] HospitalIn the event this information is protected by the Federal Confidentiality of Alcohol and Drug Abuse Patient Records regulations: The Federal rules restrict any use of the information to criminally investigate or prosecute any alcohol or drug abuse patient.[facility] HospitalIn the event this information is protected by the Federal Confidentiality of Alcohol and Drug Abuse Patient Records regulations: The Federal rules restrict any use of the information to criminally investigate or prosecute any alcohol or drug abuse patient.[facility] HospitalIn the event this information is protected by the Federal Confidentiality of Alcohol and Drug Abuse Patient Records regulations: The Federal rules restrict any use of the information to criminally investigate or prosecute any alcohol or drug abuse patient.[facility] HospitalIn the event this information is protected by the Federal Confidentiality of Alcohol and Drug Abuse Patient Records regulations: The Federal rules restrict any use of the information to criminally investigate or prosecute any alcohol or drug abuse patient.[facility] HospitalIn the event this information is protected by the Federal Confidentiality of Alcohol and Drug Abuse Patient Records regulations: The Federal rules restrict any use of the information to criminally investigate or prosecute any alcohol or drug abuse patient.[facility] HospitalIn the event this information is protected by the Federal Confidentiality of Alcohol and Drug Abuse Patient Records regulations: The Federal rules restrict any use of the information to criminally investigate or prosecute any alcohol or drug abuse patient.[facility] HospitalIn the event this information is protected by the Federal Confidentiality of Alcohol and Drug Abuse Patient Records regulations: The Federal rules restrict any use of the information to criminally investigate or prosecute any alcohol or drug abuse patient.[facility] HospitalIn the event this information is protected by the Federal Confidentiality of Alcohol and Drug Abuse Patient Records regulations: The Federal rules restrict any use of the information to criminally investigate or prosecute any alcohol or drug abuse patient.[facility] HospitalIn the event this information is protected by the Federal Confidentiality of Alcohol and Drug Abuse Patient Records regulations: The Federal rules restrict any use of the information to criminally investigate or prosecute any alcohol or drug abuse patient.[facility] HospitalIn the event this information is protected by the Federal Confidentiality of Alcohol and Drug Abuse Patient Records regulations: The Federal rules restrict any use of the information to criminally investigate or prosecute any alcohol or drug abuse patient.[facility] HospitalIn the event this information is protected by the Federal Confidentiality of Alcohol and Drug Abuse Patient Records regulations: The Federal rules restrict any use of the information to criminally investigate or prosecute any alcohol or drug abuse patient.[facility] HospitalIn the event this information is protected by the Federal Confidentiality of Alcohol and Drug Abuse Patient Records regulations: The Federal rules restrict any use of the information to criminally investigate or prosecute any alcohol or drug abuse patient.[facility] HospitalIn the event this information is protected by the Federal Confidentiality of Alcohol and Drug Abuse Patient Records regulations: The Federal rules restrict any use of the information to criminally investigate or prosecute any alcohol or drug abuse patient.[facility] HospitalIn the event this information is protected by the Federal Confidentiality of Alcohol and Drug Abuse Patient Records regulations: The Federal rules restrict any use of the information to criminally investigate or prosecute any alcohol or drug abuse patient.[facility] HospitalIn the event this information is protected by the Federal Confidentiality of Alcohol and Drug Abuse Patient Records regulations: The Federal rules restrict any use of the information to criminally investigate or prosecute any alcohol or drug abuse patient.[facility] HospitalIn the event this information is protected by the Federal Confidentiality of Alcohol and Drug Abuse Patient Records regulations: The Federal rules restrict any use of the information to criminally investigate or prosecute any alcohol or drug abuse patient.[facility] HospitalIn the event this information is protected by the Federal Confidentiality of Alcohol and Drug Abuse Patient Records regulations: The Federal rules restrict any use of the information to criminally investigate or prosecute any alcohol or drug abuse patient.[facility] HospitalIn the event this information is protected by the Federal Confidentiality of Alcohol and Drug Abuse Patient Records regulations: The Federal rules restrict any use of the information to criminally investigate or prosecute any alcohol or drug abuse patient.[facility] HospitalIn the event this information is protected by the Federal Confidentiality of Alcohol and Drug Abuse Patient Records regulations: The Federal rules restrict any use of the information to criminally investigate or prosecute any alcohol or drug abuse patient.[facility] HospitalIn the event this information is protected by the Federal Confidentiality of Alcohol and Drug Abuse Patient Records regulations: The Federal rules restrict any use of the information to criminally investigate or prosecute any alcohol or drug abuse patient.[facility] HospitalIn the event this information is protected by the Federal Confidentiality of Alcohol and Drug Abuse Patient Records regulations: The Federal rules restrict any use of the information to criminally investigate or prosecute any alcohol or drug abuse patient.[facility] HospitalIn the event this information is protected by the Federal Confidentiality of Alcohol and Drug Abuse Patient Records regulations: The Federal rules restrict any use of the information to criminally investigate or prosecute any alcohol or drug abuse patient.[facility] HospitalIn the event this information is protected by the Federal Confidentiality of Alcohol and Drug Abuse Patient Records regulations: The Federal rules restrict any use of the information to criminally investigate or prosecute any alcohol or drug abuse patient.[facility] HospitalIn the event this information is protected by the Federal Confidentiality of Alcohol and Drug Abuse Patient Records regulations: The Federal rules restrict any use of the information to criminally investigate or prosecute any alcohol or drug abuse patient.[facility] HospitalIn the event this information is protected by the Federal Confidentiality of Alcohol and Drug Abuse Patient Records regulations: The Federal rules restrict any use of the information to criminally investigate or prosecute any alcohol or drug abuse patient.[facility] HospitalIn the event this information is protected by the Federal Confidentiality of Alcohol and Drug Abuse Patient Records regulations: The Federal rules restrict any use of the information to criminally investigate or prosecute any alcohol or drug abuse patient.[facility] HospitalIn the event this information is protected by the Federal Confidentiality of Alcohol and Drug Abuse Patient Records regulations: The Federal rules restrict any use of the information to criminally investigate or prosecute any alcohol or drug abuse patient.[facility] HospitalIn the event this information is protected by the Federal Confidentiality of Alcohol and Drug Abuse Patient Records regulations: The Federal rules restrict any use of the information to criminally investigate or prosecute any alcohol or drug abuse patient.[facility] HospitalIn the event this information is protected by the Federal Confidentiality of Alcohol and Drug Abuse Patient Records regulations: The Federal rules restrict any use of the information to criminally investigate or prosecute any alcohol or drug abuse patient.[facility] HospitalIn the event this information is protected by the Federal Confidentiality of Alcohol and Drug Abuse Patient Records regulations: The Federal rules restrict any use of the information to criminally investigate or prosecute any alcohol or drug abuse patient.[facility] HospitalIn the event this information is protected by the Federal Confidentiality of Alcohol and Drug Abuse Patient Records regulations: The Federal rules restrict any use of the information to criminally investigate or prosecute any alcohol or drug abuse patient.[facility] HospitalIn the event this information is protected by the Federal Confidentiality of Alcohol and Drug Abuse Patient Records regulations: The Federal rules restrict any use of the information to criminally investigate or prosecute any alcohol or drug abuse patient.[facility] HospitalIn the event this information is protected by the Federal Confidentiality of Alcohol and Drug Abuse Patient Records regulations: The Federal rules restrict any use of the information to criminally investigate or prosecute any alcohol or drug abuse patient.[facility] HospitalIn the event this information is protected by the Federal Confidentiality of Alcohol and Drug Abuse Patient Records regulations: The Federal rules restrict any use of the information to criminally investigate or prosecute any alcohol or drug abuse patient.[facility] HospitalIn the event this information is protected by the Federal Confidentiality of Alcohol and Drug Abuse Patient Records regulations: The Federal rules restrict any use of the information to criminally investigate or prosecute any alcohol or drug abuse patient.[facility] HospitalIn the event this information is protected by the Federal Confidentiality of Alcohol and Drug Abuse Patient Records regulations: The Federal rules restrict any use of the information to criminally investigate or prosecute any alcohol or drug abuse patient.[facility] HospitalIn the event this information is protected by the Federal Confidentiality of Alcohol and Drug Abuse Patient Records regulations: The Federal rules restrict any use of the information to criminally investigate or prosecute any alcohol or drug abuse patient.[facility] HospitalIn the event this information is protected by the Federal Confidentiality of Alcohol and Drug Abuse Patient Records regulations: The Federal rules restrict any use of the information to criminally investigate or prosecute any alcohol or drug abuse patient.[facility] HospitalIn the event this information is protected by the Federal Confidentiality of Alcohol and Drug Abuse Patient Records regulations: The Federal rules restrict any use of the information to criminally investigate or prosecute any alcohol or drug abuse patient.[facility] HospitalIn the event this information is protected by the Federal Confidentiality of Alcohol and Drug Abuse Patient Records regulations: The Federal rules restrict any use of the information to criminally investigate or prosecute any alcohol or drug abuse patient.[facility] HospitalIn the event this information is protected by the Federal Confidentiality of Alcohol and Drug Abuse Patient Records regulations: The Federal rules restrict any use of the information to criminally investigate or prosecute any alcohol or drug abuse patient.[facility] HospitalIn the event this information is protected by the Federal Confidentiality of Alcohol and Drug Abuse Patient Records regulations: The Federal rules restrict any use of the information to criminally investigate or prosecute any alcohol or drug abuse patient.[facility] HospitalIn the event this information is protected by the Federal Confidentiality of Alcohol and Drug Abuse Patient Records regulations: The Federal rules restrict any use of the information to criminally investigate or prosecute any alcohol or drug abuse patient.[facility] HospitalIn the event this information is protected by the Federal Confidentiality of Alcohol and Drug Abuse Patient Records regulations: The Federal rules restrict any use of the information to criminally investigate or prosecute any alcohol or drug abuse patient.[facility]In the event this information is protected by the Federal Confidentiality of Alcohol and Drug Abuse Patient Records regulations: The Federal rules restrict any use of the information to criminally investigate or prosecute any alcohol or drug abuse patient.[facility]In the event this information is protected by the Federal Confidentiality of Alcohol and Drug Abuse Patient Records regulations: The Federal rules restrict any use of the information to criminally investigate or prosecute any alcohol or drug abuse patient.[facility] HospitalIn the event this information is protected by the Federal Confidentiality of Alcohol and Drug Abuse Patient Records regulations: The Federal rules restrict any use of the information to criminally investigate or prosecute any alcohol or drug abuse patient.[facility] HospitalIn the event this information is protected by the Federal Confidentiality of Alcohol and Drug Abuse Patient Records regulations: The Federal rules restrict any use of the information to criminally investigate or prosecute any alcohol or drug abuse patient.[facility] HospitalIn the event this information is protected by the Federal Confidentiality of Alcohol and Drug Abuse Patient Records regulations: The Federal rules restrict any use of the information to criminally investigate or prosecute any alcohol or drug abuse patient.[facility] HospitalIn the event this information is protected by the Federal Confidentiality of Alcohol and Drug Abuse Patient Records regulations: The Federal rules restrict any use of the information to criminally investigate or prosecute any alcohol or drug abuse patient.[facility] HospitalIn the event this information is protected by the Federal Confidentiality of Alcohol and Drug Abuse Patient Records regulations: The Federal rules restrict any use of the information to criminally investigate or prosecute any alcohol or drug abuse patient.[facility] HospitalIn the event this information is protected by the Federal Confidentiality of Alcohol and Drug Abuse Patient Records regulations: The Federal rules restrict any use of the information to criminally investigate or prosecute any alcohol or drug abuse patient.[facility] HospitalIn the event this information is protected by the Federal Confidentiality of Alcohol and Drug Abuse Patient Records regulations: The Federal rules restrict any use of the information to criminally investigate or prosecute any alcohol or drug abuse patient.[facility] HospitalIn the event this information is protected by the Federal Confidentiality of Alcohol and Drug Abuse Patient Records regulations: The Federal rules restrict any use of the information to criminally investigate or prosecute any alcohol or drug abuse patient.[facility] HospitalIn the event this information is protected by the Federal Confidentiality of Alcohol and Drug Abuse Patient Records regulations: The Federal rules restrict any use of the information to criminally investigate or prosecute any alcohol or drug abuse patient.[facility] HospitalIn the event this information is protected by the Federal Confidentiality of Alcohol and Drug Abuse Patient Records regulations: The Federal rules restrict any use of the information to criminally investigate or prosecute any alcohol or drug abuse patient.[facility] HospitalIn the event this information is protected by the Federal Confidentiality of Alcohol and Drug Abuse Patient Records regulations: The Federal rules restrict any use of the information to criminally investigate or prosecute any alcohol or drug abuse patient.[facility] HospitalIn the event this information is protected by the Federal Confidentiality of Alcohol and Drug Abuse Patient Records regulations: The Federal rules restrict any use of the information to criminally investigate or prosecute any alcohol or drug abuse patient.[facility] HospitalIn the event this information is protected by the Federal Confidentiality of Alcohol and Drug Abuse Patient Records regulations: The Federal rules restrict any use of the information to criminally investigate or prosecute any alcohol or drug abuse patient.[facility] HospitalIn the event this information is protected by the Federal Confidentiality of Alcohol and Drug Abuse Patient Records regulations: The Federal rules restrict any use of the information to criminally investigate or prosecute any alcohol or drug abuse patient.[facility] HospitalIn the event this information is protected by the Federal Confidentiality of Alcohol and Drug Abuse Patient Records regulations: The Federal rules restrict any use of the information to criminally investigate or prosecute any alcohol or drug abuse patient.[facility] HospitalIn the event this information is protected by the Federal Confidentiality of Alcohol and Drug Abuse Patient Records regulations: The Federal rules restrict any use of the information to criminally investigate or prosecute any alcohol or drug abuse patient.[facility] HospitalIn the event this information is protected by the Federal Confidentiality of Alcohol and Drug Abuse Patient Records regulations: The Federal rules restrict any use of the information to criminally investigate or prosecute any alcohol or drug abuse patient.[facility] HospitalIn the event this information is protected by the Federal Confidentiality of Alcohol and Drug Abuse Patient Records regulations: The Federal rules restrict any use of the information to criminally investigate or prosecute any alcohol or drug abuse patient.[facility] HospitalIn the event this information is protected by the Federal Confidentiality of Alcohol and Drug Abuse Patient Records regulations: The Federal rules restrict any use of the information to criminally investigate or prosecute any alcohol or drug abuse patient.[facility] HospitalIn the event this information is protected by the Federal Confidentiality of Alcohol and Drug Abuse Patient Records regulations: The Federal rules restrict any use of the information to criminally investigate or prosecute any alcohol or drug abuse patient.[facility] HospitalIn the event this information is protected by the Federal Confidentiality of Alcohol and Drug Abuse Patient Records regulations: The Federal rules restrict any use of the information to criminally investigate or prosecute any alcohol or drug abuse patient.[facility] HospitalIn the event this information is protected by the Federal Confidentiality of Alcohol and Drug Abuse Patient Records regulations: The Federal rules restrict any use of the information to criminally investigate or prosecute any alcohol or drug abuse patient.[facility] HospitalIn the event this information is protected by the Federal Confidentiality of Alcohol and Drug Abuse Patient Records regulations: The Federal rules restrict any use of the information to criminally investigate or prosecute any alcohol or drug abuse patient.[facility] HospitalIn the event this information is protected by the Federal Confidentiality of Alcohol and Drug Abuse Patient Records regulations: The Federal rules restrict any use of the information to criminally investigate or prosecute any alcohol or drug abuse patient.[facility] HospitalIn the event this information is protected by the Federal Confidentiality of Alcohol and Drug Abuse Patient Records regulations: The Federal rules restrict any use of the information to criminally investigate or prosecute any alcohol or drug abuse patient.[facility] HospitalIn the event this information is protected by the Federal Confidentiality of Alcohol and Drug Abuse Patient Records regulations: The Federal rules restrict any use of the information to criminally investigate or prosecute any alcohol or drug abuse patient.[facility] HospitalIn the event this information is protected by the Federal Confidentiality of Alcohol and Drug Abuse Patient Records regulations: The Federal rules restrict any use of the information to criminally investigate or prosecute any alcohol or drug abuse patient.[facility] HospitalIn the event this information is protected by the Federal Confidentiality of Alcohol and Drug Abuse Patient Records regulations: The Federal rules restrict any use of the information to criminally investigate or prosecute any alcohol or drug abuse patient.[facility] HospitalIn the event this information is protected by the Federal Confidentiality of Alcohol and Drug Abuse Patient Records regulations: The Federal rules restrict any use of the information to criminally investigate or prosecute any alcohol or drug abuse patient.[facility] HospitalIn the event this information is protected by the Federal Confidentiality of Alcohol and Drug Abuse Patient Records regulations: The Federal rules restrict any use of the information to criminally investigate or prosecute any alcohol or drug abuse patient.[facility] HospitalIn the event this information is protected by the Federal Confidentiality of Alcohol and Drug Abuse Patient Records regulations: The Federal rules restrict any use of the information to criminally investigate or prosecute any alcohol or drug abuse patient.[facility] HospitalIn the event this information is protected by the Federal Confidentiality of Alcohol and Drug Abuse Patient Records regulations: The Federal rules restrict any use of the information to criminally investigate or prosecute any alcohol or drug abuse patient.[facility] HospitalIn the event this information is protected by the Federal Confidentiality of Alcohol and Drug Abuse Patient Records regulations: The Federal rules restrict any use of the information to criminally investigate or prosecute any alcohol or drug abuse patient.[facility] HospitalIn the event this information is protected by the Federal Confidentiality of Alcohol and Drug Abuse Patient Records regulations: The Federal rules restrict any use of the information to criminally investigate or prosecute any alcohol or drug abuse patient.[facility] HospitalIn the event this information is protected by the Federal Confidentiality of Alcohol and Drug Abuse Patient Records regulations: The Federal rules restrict any use of the information to criminally investigate or prosecute any alcohol or drug abuse patient.[facility] HospitalIn the event this information is protected by the Federal Confidentiality of Alcohol and Drug Abuse Patient Records regulations: The Federal rules restrict any use of the information to criminally investigate or prosecute any alcohol or drug abuse patient.[facility] HospitalIn the event this information is protected by the Federal Confidentiality of Alcohol and Drug Abuse Patient Records regulations: The Federal rules restrict any use of the information to criminally investigate or prosecute any alcohol or drug abuse patient.[facility] HospitalIn the event this information is protected by the Federal Confidentiality of Alcohol and Drug Abuse Patient Records regulations: The Federal rules restrict any use of the information to criminally investigate or prosecute any alcohol or drug abuse patient.[facility] HospitalIn the event this information is protected by the Federal Confidentiality of Alcohol and Drug Abuse Patient Records regulations: The Federal rules restrict any use of the information to criminally investigate or prosecute any alcohol or drug abuse patient.[facility] HospitalIn the event this information is protected by the Federal Confidentiality of Alcohol and Drug Abuse Patient Records regulations: The Federal rules restrict any use of the information to criminally investigate or prosecute any alcohol or drug abuse patient.[facility] HospitalIn the event this information is protected by the Federal Confidentiality of Alcohol and Drug Abuse Patient Records regulations: The Federal rules restrict any use of the information to criminally investigate or prosecute any alcohol or drug abuse patient.[facility] HospitalIn the event this information is protected by the Federal Confidentiality of Alcohol and Drug Abuse Patient Records regulations: The Federal rules restrict any use of the information to criminally investigate or prosecute any alcohol or drug abuse patient.[facility] HospitalIn the event this information is protected by the Federal Confidentiality of Alcohol and Drug Abuse Patient Records regulations: The Federal rules restrict any use of the information to criminally investigate or prosecute any alcohol or drug abuse patient.[facility] HospitalIn the event this information is protected by the Federal Confidentiality of Alcohol and Drug Abuse Patient Records regulations: The Federal rules restrict any use of the information to criminally investigate or prosecute any alcohol or drug abuse patient.[facility] HospitalIn the event this information is protected by the Federal Confidentiality of Alcohol and Drug Abuse Patient Records regulations: The Federal rules restrict any use of the information to criminally investigate or prosecute any alcohol or drug abuse patient.[facility] HospitalIn the event this information is protected by the Federal Confidentiality of Alcohol and Drug Abuse Patient Records regulations: The Federal rules restrict any use of the information to criminally investigate or prosecute any alcohol or drug abuse patient.[facility] HospitalIn the event this information is protected by the Federal Confidentiality of Alcohol and Drug Abuse Patient Records regulations: The Federal rules restrict any use of the information to criminally investigate or prosecute any alcohol or drug abuse patient.[facility] HospitalIn the event this information is protected by the Federal Confidentiality of Alcohol and Drug Abuse Patient Records regulations: The Federal rules restrict any use of the information to criminally investigate or prosecute any alcohol or drug abuse patient.[facility] HospitalIn the event this information is protected by the Federal Confidentiality of Alcohol and Drug Abuse Patient Records regulations: The Federal rules restrict any use of the information to criminally investigate or prosecute any alcohol or drug abuse patient.[facility] HospitalIn the event this information is protected by the Federal Confidentiality of Alcohol and Drug Abuse Patient Records regulations: The Federal rules restrict any use of the information to criminally investigate or prosecute any alcohol or drug abuse patient.[facility] HospitalIn the event this information is protected by the Federal Confidentiality of Alcohol and Drug Abuse Patient Records regulations: The Federal rules restrict any use of the information to criminally investigate or prosecute any alcohol or drug abuse patient.[facility] HospitalIn the event this information is protected by the Federal Confidentiality of Alcohol and Drug Abuse Patient Records regulations: The Federal rules restrict any use of the information to criminally investigate or prosecute any alcohol or drug abuse patient.[facility] HospitalIn the event this information is protected by the Federal Confidentiality of Alcohol and Drug Abuse Patient Records regulations: The Federal rules restrict any use of the information to criminally investigate or prosecute any alcohol or drug abuse patient.[facility] HospitalIn the event this information is protected by the Federal Confidentiality of Alcohol and Drug Abuse Patient Records regulations: The Federal rules restrict any use of the information to criminally investigate or prosecute any alcohol or drug abuse patient.[facility] HospitalIn the event this information is protected by the Federal Confidentiality of Alcohol and Drug Abuse Patient Records regulations: The Federal rules restrict any use of the information to criminally investigate or prosecute any alcohol or drug abuse patient.[facility] HospitalIn the event this information is protected by the Federal Confidentiality of Alcohol and Drug Abuse Patient Records regulations: The Federal rules restrict any use of the information to criminally investigate or prosecute any alcohol or drug abuse patient.[facility] HospitalIn the event this information is protected by the Federal Confidentiality of Alcohol and Drug Abuse Patient Records regulations: The Federal rules restrict any use of the information to criminally investigate or prosecute any alcohol or drug abuse patient.[facility] HospitalIn the event this information is protected by the Federal Confidentiality of Alcohol and Drug Abuse Patient Records regulations: The Federal rules restrict any use of the information to criminally investigate or prosecute any alcohol or drug abuse patient.[facility] HospitalIn the event this information is protected by the Federal Confidentiality of Alcohol and Drug Abuse Patient Records regulations: The Federal rules restrict any use of the information to criminally investigate or prosecute any alcohol or drug abuse patient.[facility] HospitalIn the event this information is protected by the Federal Confidentiality of Alcohol and Drug Abuse Patient Records regulations: The Federal rules restrict any use of the information to criminally investigate or prosecute any alcohol or drug abuse patient.[facility] HospitalIn the event this information is protected by the Federal Confidentiality of Alcohol and Drug Abuse Patient Records regulations: The Federal rules restrict any use of the information to criminally investigate or prosecute any alcohol or drug abuse patient.[facility] HospitalIn the event this information is protected by the Federal Confidentiality of Alcohol and Drug Abuse Patient Records regulations: The Federal rules restrict any use of the information to criminally investigate or prosecute any alcohol or drug abuse patient.[facility] HospitalIn the event this information is protected by the Federal Confidentiality of Alcohol and Drug Abuse Patient Records regulations: The Federal rules restrict any use of the information to criminally investigate or prosecute any alcohol or drug abuse patient.[facility] HospitalIn the event this information is protected by the Federal Confidentiality of Alcohol and Drug Abuse Patient Records regulations: The Federal rules restrict any use of the information to criminally investigate or prosecute any alcohol or drug abuse patient.[facility] HospitalIn the event this information is protected by the Federal Confidentiality of Alcohol and Drug Abuse Patient Records regulations: The Federal rules restrict any use of the information to criminally investigate or prosecute any alcohol or drug abuse patient.[facility] HospitalIn the event this information is protected by the Federal Confidentiality of Alcohol and Drug Abuse Patient Records regulations: The Federal rules restrict any use of the information to criminally investigate or prosecute any alcohol or drug abuse patient.[facility] HospitalIn the event this information is protected by the Federal Confidentiality of Alcohol and Drug Abuse Patient Records regulations: The Federal rules restrict any use of the information to criminally investigate or prosecute any alcohol or drug abuse patient.[facility] HospitalIn the event this information is protected by the Federal Confidentiality of Alcohol and Drug Abuse Patient Records regulations: The Federal rules restrict any use of the information to criminally investigate or prosecute any alcohol or drug abuse patient.[facility] HospitalIn the event this information is protected by the Federal Confidentiality of Alcohol and Drug Abuse Patient Records regulations: The Federal rules restrict any use of the information to criminally investigate or prosecute any alcohol or drug abuse patient.[facility] HospitalIn the event this information is protected by the Federal Confidentiality of Alcohol and Drug Abuse Patient Records regulations: The Federal rules restrict any use of the information to criminally investigate or prosecute any alcohol or drug abuse patient.[facility] HospitalIn the event this information is protected by the Federal Confidentiality of Alcohol and Drug Abuse Patient Records regulations: The Federal rules restrict any use of the information to criminally investigate or prosecute any alcohol or drug abuse patient.[facility] HospitalIn the event this information is protected by the Federal Confidentiality of Alcohol and Drug Abuse Patient Records regulations: The Federal rules restrict any use of the information to criminally investigate or prosecute any alcohol or drug abuse patient.[facility] HospitalIn the event this information is protected by the Federal Confidentiality of Alcohol and Drug Abuse Patient Records regulations: The Federal rules restrict any use of the information to criminally investigate or prosecute any alcohol or drug abuse patient.[facility] HospitalIn the event this information is protected by the Federal Confidentiality of Alcohol and Drug Abuse Patient Records regulations: The Federal rules restrict any use of the information to criminally investigate or prosecute any alcohol or drug abuse patient.[facility] HospitalIn the event this information is protected by the Federal Confidentiality of Alcohol and Drug Abuse Patient Records regulations: The Federal rules restrict any use of the information to criminally investigate or prosecute any alcohol or drug abuse patient.[facility] HospitalIn the event this information is protected by the Federal Confidentiality of Alcohol and Drug Abuse Patient Records regulations: The Federal rules restrict any use of the information to criminally investigate or prosecute any alcohol or drug abuse patient.[facility] HospitalIn the event this information is protected by the Federal Confidentiality of Alcohol and Drug Abuse Patient Records regulations: The Federal rules restrict any use of the information to criminally investigate or prosecute any alcohol or drug abuse patient.[facility] HospitalIn the event this information is protected by the Federal Confidentiality of Alcohol and Drug Abuse Patient Records regulations: The Federal rules restrict any use of the information to criminally investigate or prosecute any alcohol or drug abuse patient.[facility] HospitalIn the event this information is protected by the Federal Confidentiality of Alcohol and Drug Abuse Patient Records regulations: The Federal rules restrict any use of the information to criminally investigate or prosecute any alcohol or drug abuse patient.[facility] HospitalIn the event this information is protected by the Federal Confidentiality of Alcohol and Drug Abuse Patient Records regulations: The Federal rules restrict any use of the information to criminally investigate or prosecute any alcohol or drug abuse patient.[facility] HospitalIn the event this information is protected by the Federal Confidentiality of Alcohol and Drug Abuse Patient Records regulations: The Federal rules restrict any use of the information to criminally investigate or prosecute any alcohol or drug abuse patient.[facility] HospitalIn the event this information is protected by the Federal Confidentiality of Alcohol and Drug Abuse Patient Records regulations: The Federal rules restrict any use of the information to criminally investigate or prosecute any alcohol or drug abuse patient.[facility] HospitalIn the event this information is protected by the Federal Confidentiality of Alcohol and Drug Abuse Patient Records regulations: The Federal rules restrict any use of the information to criminally investigate or prosecute any alcohol or drug abuse patient.[facility] HospitalIn the event this information is protected by the Federal Confidentiality of Alcohol and Drug Abuse Patient Records regulations: The Federal rules restrict any use of the information to criminally investigate or prosecute any alcohol or drug abuse patient.[facility] HospitalIn the event this information is protected by the Federal Confidentiality of Alcohol and Drug Abuse Patient Records regulations: The Federal rules restrict any use of the information to criminally investigate or prosecute any alcohol or drug abuse patient.[facility] HospitalIn the event this information is protected by the Federal Confidentiality of Alcohol and Drug Abuse Patient Records regulations: The Federal rules restrict any use of the information to criminally investigate or prosecute any alcohol or drug abuse patient.[facility] HospitalIn the event this information is protected by the Federal Confidentiality of Alcohol and Drug Abuse Patient Records regulations: The Federal rules restrict any use of the information to criminally investigate or prosecute any alcohol or drug abuse patient.[facility] HospitalIn the event this information is protected by the Federal Confidentiality of Alcohol and Drug Abuse Patient Records regulations: The Federal rules restrict any use of the information to criminally investigate or prosecute any alcohol or drug abuse patient.[facility] HospitalIn the event this information is protected by the Federal Confidentiality of Alcohol and Drug Abuse Patient Records regulations: The Federal rules restrict any use of the information to criminally investigate or prosecute any alcohol or drug abuse patient.[facility] HospitalIn the event this information is protected by the Federal Confidentiality of Alcohol and Drug Abuse Patient Records regulations: The Federal rules restrict any use of the information to criminally investigate or prosecute any alcohol or drug abuse patient.[facility] HospitalIn the event this information is protected by the Federal Confidentiality of Alcohol and Drug Abuse Patient Records regulations: The Federal rules restrict any use of the information to criminally investigate or prosecute any alcohol or drug abuse patient.[facility] HospitalIn the event this information is protected by the Federal Confidentiality of Alcohol and Drug Abuse Patient Records regulations: The Federal rules restrict any use of the information to criminally investigate or prosecute any alcohol or drug abuse patient.[facility] HospitalIn the event this information is protected by the Federal Confidentiality of Alcohol and Drug Abuse Patient Records regulations: The Federal rules restrict any use of the information to criminally investigate or prosecute any alcohol or drug abuse patient.[facility] HospitalIn the event this information is protected by the Federal Confidentiality of Alcohol and Drug Abuse Patient Records regulations: The Federal rules restrict any use of the information to criminally investigate or prosecute any alcohol or drug abuse patient.[facility] HospitalIn the event this information is protected by the Federal Confidentiality of Alcohol and Drug Abuse Patient Records regulations: The Federal rules restrict any use of the information to criminally investigate or prosecute any alcohol or drug abuse patient.[facility] HospitalIn the event this information is protected by the Federal Confidentiality of Alcohol and Drug Abuse Patient Records regulations: The Federal rules restrict any use of the information to criminally investigate or prosecute any alcohol or drug abuse patient.[facility] HospitalIn the event this information is protected by the Federal Confidentiality of Alcohol and Drug Abuse Patient Records regulations: The Federal rules restrict any use of the information to criminally investigate or prosecute any alcohol or drug abuse patient.[facility] HospitalIn the event this information is protected by the Federal Confidentiality of Alcohol and Drug Abuse Patient Records regulations: The Federal rules restrict any use of the information to criminally investigate or prosecute any alcohol or drug abuse patient.[facility] HospitalIn the event this information is protected by the Federal Confidentiality of Alcohol and Drug Abuse Patient Records regulations: The Federal rules restrict any use of the information to criminally investigate or prosecute any alcohol or drug abuse patient.[facility] HospitalIn the event this information is protected by the Federal Confidentiality of Alcohol and Drug Abuse Patient Records regulations: The Federal rules restrict any use of the information to criminally investigate or prosecute any alcohol or drug abuse patient.[facility] HospitalIn the event this information is protected by the Federal Confidentiality of Alcohol and Drug Abuse Patient Records regulations: The Federal rules restrict any use of the information to criminally investigate or prosecute any alcohol or drug abuse patient.[facility] HospitalIn the event this information is protected by the Federal Confidentiality of Alcohol and Drug Abuse Patient Records regulations: The Federal rules restrict any use of the information to criminally investigate or prosecute any alcohol or drug abuse patient.[facility] HospitalIn the event this information is protected by the Federal Confidentiality of Alcohol and Drug Abuse Patient Records regulations: The Federal rules restrict any use of the information to criminally investigate or prosecute any alcohol or drug abuse patient.[facility] HospitalIn the event this information is protected by the Federal Confidentiality of Alcohol and Drug Abuse Patient Records regulations: The Federal rules restrict any use of the information to criminally investigate or prosecute any alcohol or drug abuse patient.[facility] HospitalIn the event this information is protected by the Federal Confidentiality of Alcohol and Drug Abuse Patient Records regulations: The Federal rules restrict any use of the information to criminally investigate or prosecute any alcohol or drug abuse patient.[facility] HospitalIn the event this information is protected by the Federal Confidentiality of Alcohol and Drug Abuse Patient Records regulations: The Federal rules restrict any use of the information to criminally investigate or prosecute any alcohol or drug abuse patient.[facility] HospitalIn the event this information is protected by the Federal Confidentiality of Alcohol and Drug Abuse Patient Records regulations: The Federal rules restrict any use of the information to criminally investigate or prosecute any alcohol or drug abuse patient.[facility] HospitalIn the event this information is protected by the Federal Confidentiality of Alcohol and Drug Abuse Patient Records regulations: The Federal rules restrict any use of the information to criminally investigate or prosecute any alcohol or drug abuse patient.[facility] HospitalIn the event this information is protected by the Federal Confidentiality of Alcohol and Drug Abuse Patient Records regulations: The Federal rules restrict any use of the information to criminally investigate or prosecute any alcohol or drug abuse patient.[facility] HospitalIn the event this information is protected by the Federal Confidentiality of Alcohol and Drug Abuse Patient Records regulations: The Federal rules restrict any use of the information to criminally investigate or prosecute any alcohol or drug abuse patient.[facility] HospitalIn the event this information is protected by the Federal Confidentiality of Alcohol and Drug Abuse Patient Records regulations: The Federal rules restrict any use of the information to criminally investigate or prosecute any alcohol or drug abuse patient.[facility] HospitalIn the event this information is protected by the Federal Confidentiality of Alcohol and Drug Abuse Patient Records regulations: The Federal rules restrict any use of the information to criminally investigate or prosecute any alcohol or drug abuse patient.[facility] HospitalIn the event this information is protected by the Federal Confidentiality of Alcohol and Drug Abuse Patient Records regulations: The Federal rules restrict any use of the information to criminally investigate or prosecute any alcohol or drug abuse patient.[facility] HospitalIn the event this information is protected by the Federal Confidentiality of Alcohol and Drug Abuse Patient Records regulations: The Federal rules restrict any use of the information to criminally investigate or prosecute any alcohol or drug abuse patient.[facility] HospitalIn the event this information is protected by the Federal Confidentiality of Alcohol and Drug Abuse Patient Records regulations: The Federal rules restrict any use of the information to criminally investigate or prosecute any alcohol or drug abuse patient.[facility] HospitalIn the event this information is protected by the Federal Confidentiality of Alcohol and Drug Abuse Patient Records regulations: The Federal rules restrict any use of the information to criminally investigate or prosecute any alcohol or drug abuse patient.[facility] HospitalIn the event this information is protected by the Federal Confidentiality of Alcohol and Drug Abuse Patient Records regulations: The Federal rules restrict any use of the information to criminally investigate or prosecute any alcohol or drug abuse patient.[facility] HospitalIn the event this information is protected by the Federal Confidentiality of Alcohol and Drug Abuse Patient Records regulations: The Federal rules restrict any use of the information to criminally investigate or prosecute any alcohol or drug abuse patient.[facility] HospitalIn the event this information is protected by the Federal Confidentiality of Alcohol and Drug Abuse Patient Records regulations: The Federal rules restrict any use of the information to criminally investigate or prosecute any alcohol or drug abuse patient.[facility] HospitalIn the event this information is protected by the Federal Confidentiality of Alcohol and Drug Abuse Patient Records regulations: The Federal rules restrict any use of the information to criminally investigate or prosecute any alcohol or drug abuse patient.[facility] HospitalIn the event this information is protected by the Federal Confidentiality of Alcohol and Drug Abuse Patient Records regulations: The Federal rules restrict any use of the information to criminally investigate or prosecute any alcohol or drug abuse patient.[facility] HospitalIn the event this information is protected by the Federal Confidentiality of Alcohol and Drug Abuse Patient Records regulations: The Federal rules restrict any use of the information to criminally investigate or prosecute any alcohol or drug abuse patient.[facility] HospitalIn the event this information is protected by the Federal Confidentiality of Alcohol and Drug Abuse Patient Records regulations: The Federal rules restrict any use of the information to criminally investigate or prosecute any alcohol or drug abuse patient.[facility] Reason for Visit (unrecogniz ed section and content) Reason Onset Date Comments Refill Request 02/02/2022 Reason Comments Home Health Orders Reason Comments Patient Update Reason Comments Patient Update Orders Reason Comments Patient Question Reason Comments Established Patient Reason Onset Date Comments Refill Request 11/30/2022 Reason Comments Transfusion Reason Comments Established Patient Reason Onset Date Comments Refill Request 12/23/2022 Reason Comments Procedure BMBX Reason Comments Social Work Services 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 Reason Comments Orders Reason Onset Date Comments Refill Request 02/01/2023 Reason Comments pain management Reason Comments Imm/Inj Specialty Diagnoses / Procedures Referred By Contac t Referred To Contact Diagnoses MDS (myelodysplastic syndrome), low grade (HCC) Idiopathic aplastic anemia (HCC) Procedures INJ LUSPATERCEPT-AAMT,0.25 MG Steven Akers DO [address] [place] [address] Jayy [facility] [address] [place] [address] Referral ID Status Reason Start Date Expiration Date V isits Requested Visits Authorized [id number] Authorized 01/27/2023 11/09/2023 99 99 Reason Onset Date Comments Refill Request 02/06/2023 Reason Comments Benefits Investigation Reason Comments Patient Update Reason Comments Appointment Reason Comments Med Assist Reason Comments Medication Assistance Reason Comments Insurance Authorization Reason Comments AVS 04/10 Specialty Diagnoses / Procedures Referred By Contac t Referred To Contact Diagnoses MDS (myelodysplastic syndrome), low grade (HCC) Idiopathic aplastic anemia (HCC) Procedures INJ LUSPATERCEPT-AAMT,0.25 MG Steven Akers, DO [address] [place] [address] Jayy [facility] [address] [place] [address] Reason Comments Research Consent [id number] Reason Comments Results Reason Comments Established Patient Reason Comments Established Patient Ov, possible injecti on today. Labs. Edema Pt states when he la ys down he notices swelling around the eye, more noticeable on the upper eyelid than lower. Notes new blurry vision. 2-3 weeks. Has eye apt next month. Reason Comments Follow Up Reason Onset Date Comments Refill Request 06/23/2023 Reason Comments Med Change Request Reason Comments Follow Up 3 month Reason Comments Erroneous encounter-disregard Reason Comments Radiology CT Specialty Diagnoses / Procedures Referred By [facility] Dentistry[facility] t Referred To Contact CT IMAGING Diagnoses MDS (myelodysplastic syndrome), low grade (HCC) Waldenstrom macroglobulinemia (HCC) Splenomegaly Procedures CT CHEST W IVCON DIAGNOSTIC COMPUTED TOMOGRAPHY THORAX W/CONTRAST Steven Akers, DO [address] [place] [address] [place] [address] Referral ID Status Reason Start Date Expiration Date V isits Requested Visits Authorized [id number] Closed Auto-Generate d Referral 11/29/2022 11/09/2023 1 1 Reason Comments 2023 Reblozyl Assistance Renewal Referral ID Status Reason Start Date Expiration Date V isits Requested Visits Authorized [id number] Authorized 01/27/2023 11/09/2024 99 99 Reason Onset Date Comments Refill Request 01/10/2024 Refill Request 01/12/2024 Reason Comments Follow Up 6 month Reason Onset Date Comments Refill Request 01/24/2024 Referral ID Status Reason Start Date Expiration Date Visits Re quested Visits Authorized [id number] Closed 01/27/2023 11/09/2024 99 99 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 Introduction Reason Comments AVS 01/29/24, CHEMO START WK OF 02/08 Reason Comments Chemotherapy Treatment Specialty Diagnoses / Procedures Referred By Contac t Referred To Contact Diagnoses MDS (myelodysplastic syndrome), low grade (HCC) Macrocytic anemia Procedures DECITABINE INJECTION Steven Akers, DO [address] [place] [address] [facility] [address] [place] [address] Referral ID Status Reason Start Date Expiration Date V isits Requested Visits Authorized [id number] Authorized 01/29/2024 11/09/2024 99 99 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 Toxicity Check Reason Onset Date Comments Refill Request 03/04/2024 Specialty Diagnoses / Procedures Referred By Contac t Referred To Contact Diagnoses MDS (myelodysplastic syndrome), low grade (HCC) Macrocytic anemia Procedures DECITABINE INJECTION Steven Akers, DO [address] [place] [address] [facility] [address] [place] [address] Reason Onset Date Comments Refill Request 04/02/2024 Reason Comments Refill Request Reason Onset Date Comments Refill Request 05/06/2024 Reason Comments late entry-transfusion Reason Comments Results Transfusion Reason Onset Date Comments Refill Request 06/04/2024 Reason Comments Patient Update Right sided pain Reason Onset Date Comments Refill Request 06/18/2024 Reason Comments Radiology [place] Specialty Diagnoses / Procedures Referred By Contac t Referred To Contact [facility] Diagnoses Splenomegaly Procedures US ABD SPLEEN US ABDOMINAL REAL TIME W/IMAGE LIMITED Steven Akers DO [address] [place] [address] [place] [address] Referral ID Status Reason Start Date Expiration Date V isits Requested Visits Authorized [id number] Closed Auto-Generate d Referral 06/09/2024 07/09/2025 1 1 Reason Onset Date Comments Refill Request 07/03/2024 Reason Onset Date Comments Refill Request 07/10/2024 Reason Comments 6 Month Exam Reason Comments transfusion Reason Onset Date Comments Refill Request 08/05/2024 Reason Onset Date Comments Refill Request 04/11/2024 Reason Comments Care Coordination CYCLE 1/DAY 1 POST T REATMENT CALL Reason Onset Date Comments Refill Request 09/02/2024 Referral ID Status Reason Start Date Expiration Date Visits Requested Visits Authorized [id number] Authorized Patient Cleared - Admin/Chairm an/Director advise to proceed or did not respond 01/29/2024 11/09/2024 99 99 Reason Comments Referral Request Reason Onset Date Comments Refill Request 10/03/2024 Reason Onset Date Comments Refill Request 10/10/2024 Reason Onset Date Comments Refill Request 10/23/2024 Reason Onset Date Comments Refill Request 10/30/2024 Reason Onset Date Comments Refill Request 12/02/2024 Reason Onset Date Comments Refill Request 01/05/2025 Reason Onset Date Comments Refill Request 01/22/2025 Reason Onset Date Comments Refill Request 04/18/2025 Specialty Diagnoses / Procedures Referred By Contac t Referred To Contact [facility] Diagnoses MDS (myelodysplastic syndrome), low grade (HCC) Iron overload Splenomegaly Procedures US ABD RIGHT UPPER QUADRANT US ABDOMINAL REAL TIME W/IMAGE LIMITED Steven Akers DO [address] [place] [address] Phone: tel: fax: [place] [phone] Referral ID Status Reason Start Date Expiration Date V isits Requested Visits Authorized [id number] Closed Auto-Generate d Referral 04/21/2025 05/21/2026 1 1 Care Teams (unrecognized sec tion and content) Stem Roller Operator Relationship Specialty Start Date End Date Sunday Carter PA-C [address] [facility] [address] PCP - General Family Practice 10/28/17 Stem Roller Operator Relationship Specialty Start Date End Date Sunday Carter PA-C [address] [facility] [address] PCP - General Family Practice 10/28/17 Stem Roller Operator Relationship Specialty Start Date End Date Sunday Carter PA-C [address] [facility] [address] PCP - General Family Practice 10/28/17 Stem Roller Operator Relationship Specialty Start Date End Date Sunday Carter PA-C [address] [facility] [address] PCP - General Family Practice 10/28/17 Stem Roller Operator Relationship Specialty Start Date End Date Sunday Carter PA-C [address] [facility] [address] PCP - General Family Practice 10/28/17 Stem Roller Operator Relationship Specialty Start Date End Date Sunday Carter PA-C [address] [facility] [address] PCP - General Family Medicine 10/28/17 Stem Roller Operator Relationship Specialty Start Date End Date Sunday Carter PA-C [address] [facility] [address] PCP - General Family Medicine 10/28/17 Stem Roller Operator Relationship Specialty Start Date End Date Sunday Carter PA-C [address] [facility] [address] PCP - General Family Medicine 10/28/17 Stem Roller Operator Relationship Specialty Start Date End Date Sunday Carter PA-C [address] [place] [address] PCP - General Family Medicine 10/28/17 Stem Roller Operator Relationship Specialty Start Date End Date Sunday Carter PA-C [address] [place] [address] PCP - General Family Medicine 10/28/17 Stem Roller Operator Relationship Specialty Start Date End Date Sunday Carter PA-C [address] [place] [address] PCP - General Family Medicine 10/28/17 Stem Roller Operator Relationship Specialty Start Date End Date Sunday Carter PA-C [address] [place] [address] PCP - General Family Medicine 10/28/17 Stem Roller Operator Relationship Specialty Start Date End Date Sunday Carter PA-C [address] [place] [address] PCP - General Family Medicine 10/28/17 Team Status: Active Member Role Status Dates MENDEL Kerns Family Provider Active MENDEL Kerns Primary Care Provider Active Team Status: Inactive Member Role Status Dates MENDEL Kerns Primary Care Provider, Referri ng Provider Active Delisa Francis WAREDRESSER, WAREDRESSER-C Attending Provider Active Team Status: Active Member Role Status Dates MENDEL Kerns Primary Care Provider Active Dr. Subhash Alfaro MD Attending Provider, Referring Pro vider Active Dr. Sarah Traore MD Other Provider Active Team Status: Inactive Member Role Status Dates MENDEL Kerns Primary Care Provider Active Dr. Steven Akers DO Attending Provider, Referring Prov ider Active Stem Roller Operator Relationship Specialty Start Date End Date Sunday Carter PA-C [address] [place] [address] PCP - General Family Medicine 10/28/17 Stem Roller Operator Relationship Specialty Start Date End Date Sunday Carter PA-C [address] [facility] [address] PCP - General Family Medicine 10/28/17 Stem Roller Operator Relationship Specialty Start Date End Date Sunday Carter PA-C [address] [facility] [address] PCP - General Family Medicine 10/28/17 Stem Roller Operator Relationship Specialty Start Date End Date Sunday Carter PA-C [address] [facility] [address] PCP - General Family Medicine 10/28/17 Stem Roller Operator Relationship Specialty Start Date End Date Sunday Carter PA-C [address] [facility] [address] PCP - General Family Medicine 10/28/17 Stem Roller Operator Relationship Specialty Start Date End Date Sunday Carter PA-C [address] [facility] [address] PCP - General Family Medicine 10/28/17 Stem Roller Operator Relationship Specialty Start Date End Date Sunday Carter PA-C [address] [facility] [address] PCP - General Family Medicine 10/28/17 Stem Roller Operator Relationship Specialty Start Date End Date Sunday Carter PA-C [address] [facility] [address] PCP - General Family Medicine 10/28/17 Stem Roller Operator Relationship Specialty Start Date End Date Sunday Carter PA-C [address] [facility] [address] PCP - General Family Medicine 10/28/17 Stem Roller Operator Relationship Specialty Start Date End Date Sunday Carter PA-C [address] [facility] [address] PCP - General Family Medicine 10/28/17 Team Status: Inactive Member Role Status Dates Sunday OGLESBY PA Primary Care Provider, Referri ng Provider Active Dr. Venkatesh Cast MD Active MENDEL Ruiz Attending Provider Active Team Status: Active Member Role Status Dates Sunday OGLESBY PA Primary Care Provider Active Aysha OGLESBY PA Attending Provider, Referr ing Provider Active Team Status: Active Member Role Status Dates Sunday OGLESBY PA Primary Care Provider Active Dr. Steven Akers DO Attending Provider, Referring Prov ider Active Team Status: Active Member Role Status Dates Sunday OGLESBY PA Primary Care Provider Active Dr. Sarah Traore MD Attending Provider, Referring Pr ovider Active Team Status: Inactive Member Role Status Dates Sunday OGLESBY PA Primary Care Provider Active Dr. Chaim Garcia MD Emergency Provider Active Team Status: Active Member Role Status Dates Sunday OGLESBY PA Primary Care Provider Active Dr. Venkatesh Cast MD Attending Provider Active Team Status: Inactive Member Role Status Dates Sunday OGLESBY PA Primary Care Provider Active Dr. Sarah Traore MD Attending Provider, Referring Pr ovider Active Stem Roller Operator Relationship Specialty Start Date End Date Sunday Carter PA-C [address] [place] [address] PCP - General Family Medicine 10/28/17 Team Status: Inactive Member Role Status Dates Sunday OGLESBY PA Primary Care Provider Active MENDEL Ruiz Attending Provider, Referr ing Provider Active Team Status: Inactive Member Role Status Dates Sunday OGLESBY PA Primary Care Provider Active Dr. Chaim Garcia MD Attending Provider, Emergency Pro vider Active Stem Roller Operator Relationship Specialty Start Date End Date Sunday Carter PA-C [address] [place], [place] [id number] PCP - General Family Medicine 10/28/17 Stem Roller Operator Relationship Specialty Start Date End Date Sunday Carter PA-C [address] [place], [place] [id number] PCP - General Family Medicine 10/28/17 Stem Roller Operator Relationship Specialty Start Date End Date Sunday Carter PA-C [address] [place] [address] PCP - General Family Medicine 10/28/17 Stem Roller Operator Relationship Specialty Start Date End Date Sunday Carter PA-C [address] [place] [address] PCP - General Family Medicine 10/28/17 Stem Roller Operator Relationship Specialty Start Date End Date Sunday Carter PA-C [address] [place] [address] PCP - General Family Medicine 10/28/17 Stem Roller Operator Relationship Specialty Start Date End Date Sunday Carter PA-C [address] [place] [address] PCP - General Family Medicine 10/28/17 Team Status: Inactive Member Role Status Dates MENDEL Kerns Primary Care Provider, Referri Provider Active Reza Can WAREDRESSER, WAREDRESSER-C Attending Provider Active Stem Roller Operator Relationship Specialty Start Date End Date Sunday Carter PA-C [address] [place] [address] PCP - General Family Medicine 10/28/17 Stem Roller Operator Relationship Specialty Start Date End Date Sunday Carter PA-C [address] [place] [address] PCP - General Family Medicine 10/28/17 Team Status: Inactive Member Role Status Dates MENDEL Kerns Primary Care Provider Active Dr. Steven Akers DO Attending Provider Active Stem Roller Operator Relationship Specialty Start Date End Date Sunday Carter PA-C [address] [place] [address] PCP - General Family Medicine 10/28/17 Team Status: Active Member Role Status Dates MENDEL Kerns Primary Care Provider Active Dr. Venkatesh Cast MD Attending Provider Active MENDEL Ruiz Referring Provider Active Team Status: Inactive Member Role Status Dates MENDEL Kerns Primary Care Provider Active Dr. Jose Grimaldo MD Attending Provider, Referring Provi denise Active Team Status: Inactive Member Role Status Dates MENDEL Kerns Primary Care Provider Active Dr. Jose Grimaldo MD Emergency Provider Active Stem Roller Operator Relationship Specialty Start Date End Date Sunday Carter PA-C [address] [place] [address] PCP - General Family Medicine 10/28/17 Stem Roller Operator Relationship Specialty Start Date End Date Sunday Carter PA-C [address] [place] [address] PCP - General Family Medicine 10/28/17 Stem Roller Operator Relationship Specialty Start Date End Date Sunday Carter PA-C [address] [place] [address] PCP - General Family Medicine 10/28/17 Stem Roller Operator Relationship Specialty Start Date End Date Sunday Carter PA-C [address] [place] [address] PCP - General Family Medicine 10/28/17 Stem Roller Operator Relationship Specialty Start Date End Date Sunday Carter PA-C [address] [place], [place] [address] PCP - General Family Medicine 10/28/17 Team Status: Inactive Member Role Status Dates MENDEL Kerns Primary Care Provider Active Dr. Jose Grimaldo MD Attending Provider, Emergency Provi denise Active Stem Roller Operator Relationship Specialty Start Date End Date Sunday Carter PA-C [address] [place] [address] PCP - General Family Medicine 10/28/17 Stem Roller Operator Relationship Specialty Start Date End Date Sunday Carter PA-C [address] [place] [address] PCP - General Family Medicine 10/28/17 Stem Roller Operator Relationship Specialty Start Date End Date Sunday Carter PA-C [address] [place] [address] PCP - General Family Medicine 10/28/17 Stem Roller Operator Relationship Specialty Start Date End Date Sunday Carter PA-C [address] [place] [address] PCP - General Family Medicine 10/28/17 Stem Roller Operator Relationship Specialty Start Date End Date Sunday Carter PA-C [address] [place] [address] PCP - General Family Medicine 10/28/17 Stem Roller Operator Relationship Specialty Start Date End Date Sunday Carter PA-C [address] [place] [address] PCP - General Family Medicine 10/28/17 Stem Roller Operator Relationship Specialty Start Date End Date Sunday Carter PA-C [address] [place] [address] PCP - General Family Medicine 10/28/17 Stem Roller Operator Relationship Specialty Start Date End Date Sunday Carter PA-C [address] [place] [address] PCP - General Family Medicine 10/28/17 Stem Roller Operator Relationship Specialty Start Date End Date Sunday Carter PA-C [address] [facility] [address] PCP - General Family Medicine 10/28/17 Stem Roller Operator Relationship Specialty Start Date End Date Sunday Carter PA-C [address] [facility] [address] PCP - General Family Medicine 10/28/17 Stem Roller Operator Relationship Specialty Start Date End Date Sunday Carter PA-C [address] [facility] [address] PCP - General Family Medicine 10/28/17 Stem Roller Operator Relationship Specialty Start Date End Date Sunday Carter PA-C [address] [facility] [address] PCP - General Family Medicine 10/28/17 Stem Roller Operator Relationship Specialty Start Date End Date Sunday Carter PA-C [address] [facility] [address] PCP - General Family Medicine 10/28/17 Stem Roller Operator Relationship Specialty Start Date End Date Sunday Carter PA-C [address] [facility] [address] PCP - General Family Medicine 10/28/17 Stem Roller Operator Relationship Specialty Start Date End Date Sunday Carter PA-C [address] [facility] [address] PCP - General Family Medicine 10/28/17 Stem Roller Operator Relationship Specialty Start Date End Date Sunday Carter PA-C [address] [facility] [address] PCP - General Family Medicine 10/28/17 Stem Roller Operator Relationship Specialty Start Date End Date Sunday Carter PA-C [address] [facility] [address] PCP - General Family Medicine 10/28/17 Stem Roller Operator Relationship Specialty Start Date End Date Sunday Carter PA-C [address] [facility] [address] PCP - General Family Medicine 10/28/17 Stem Roller Operator Relationship Specialty Start Date End Date Sunday Carter PA-C [address] [facility] [address] PCP - General Family Medicine 10/28/17 Stem Roller Operator Relationship Specialty Start Date End Date Sunday Carter PA-C [address] [facility] [address] PCP - General Family Medicine 10/28/17 Stem Roller Operator Relationship Specialty Start Date End Date Sunday Carter PA-C [address] [facility] [address] PCP - General Family Medicine 10/28/17 Stem Roller Operator Relationship Specialty Start Date End Date Sunday Carter PA-C [address] [facility] [address] PCP - General Family Medicine 10/28/17 Stem Roller Operator Relationship Specialty Start Date End Date Sunday Carter PA-C [address] [facility] [address] PCP - General Family Medicine 10/28/17 Stem Roller Operator Relationship Specialty Start Date End Date Sunday Carter PA-C [address] [place] [address] PCP - General Family Medicine 10/28/17 Stem Roller Operator Relationship Specialty Start Date End Date Sunday Carter PA-C [address] [place] [address] PCP - General Family Medicine 10/28/17 Stem Roller Operator Relationship Specialty Start Date End Date Sunday Carter PA-C [address] [place] [address] PCP - General Family Medicine 10/28/17 Stem Roller Operator Relationship Specialty Start Date End Date Sunday Carter PA-C [address] [place] [address] PCP - General Family Medicine 10/28/17 Stem Roller Operator Relationship Specialty Start Date End Date Sunday Carter PA-C [address] [place] [address] PCP - General Family Medicine 10/28/17 Stem Roller Operator Relationship Specialty Start Date End Date Sunday Carter PA-C [address] [place] [address] PCP - General Family Medicine 10/28/17 Stem Roller Operator Relationship Specialty Start Date End Date Sunday Carter PA-C [address] [place] [address] PCP - General Family Medicine 10/28/17 Stem Roller Operator Relationship Specialty Start Date End Date Sunday Carter PA-C [address] [facility] [address] PCP - General Family Medicine 10/28/17 Stem Roller Operator Relationship Specialty Start Date End Date Sunday Carter PA-C [address] [facility] [address] PCP - General Family Medicine 10/28/17 Stem Roller Operator Relationship Specialty Start Date End Date Sunday Carter PA-C [address] [facility] [address] PCP - General Family Medicine 10/28/17 Stem Roller Operator Relationship Specialty Start Date End Date Sunday Carter PA-C [address] [facility] [address] PCP - General Family Medicine 10/28/17 Stem Roller Operator Relationship Specialty Start Date End Date Sunday Carter PA-C [address] [facility] [address] PCP - General Family Medicine 10/28/17 Stem Roller Operator Relationship Specialty Start Date End Date Sunday Carter PA-C [address] [facility] [address] PCP - General Family Medicine 10/28/17 Stem Roller Operator Relationship Specialty Start Date End Date Sunday Carter PA-C [address] [facility] [address] PCP - General Family Medicine 10/28/17 Stem Roller Operator Relationship Specialty Start Date End Date Sunday Carter PA-C [address] [facility] [address] PCP - General Family Medicine 10/28/17 Stem Roller Operator Relationship Specialty Start Date End Date Hetal Carter PA-C PCP - General Family Medicine 10/28/17 Stem Roller Operator Relationship Specialty Start Date End Date Hetal Carter PA-C PCP - General Family Medicine 10/28/17 Stem Roller Operator Relationship Specialty Start Date End Date Hetal Carter PA-C PCP - General Family Medicine 10/28/17 Stem Roller Operator Relationship Specialty Start Date End Date Hetal Carter PA-C PCP - General Family Medicine 10/28/17 Stem Roller Operator Relationship Specialty Start Date End Date Hetal Carter PA-C PCP - General Family Medicine 10/28/17 Stem Roller Operator Relationship Specialty Start Date End Date Hetal Carter PA-C PCP - General Family Medicine 10/28/17 Stem Roller Operator Relationship Specialty Start Date End Date Hetal Carter PA-C PCP - General Family Medicine 10/28/17 Steven Akers DO [address] [place] [address] Hematology/Oncology 10/08/24 Salena Ricardo RN Specialty 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 Leader Oncology 10/08/24 Stem Roller Operator Relationship Specialty Start Date End Date Hetal Carter PA-C PCP - General Family Medicine 10/28/17 Steven Akers DO [address] [facility] [place] [address] Hematology/Oncology 10/08/24 Salena Ricardo RN Specialty 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 Leader Oncology 10/08/24 Stem Roller Operator Relationship Specialty Start Date End Date Hetal Carter PA-C PCP - General Family Medicine 10/28/17 Steven Akers DO [address] [place] [address] Hematology/Oncology 10/08/24 Salena Ricardo RN Specialty 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 Leader Oncology 10/08/24 Stem Roller Operator Relationship Specialty Start Date End Date Hetal Carter PA-C PCP - General Family Medicine 10/28/17 Steven Akers DO [address] [place] [address] Hematology/Oncology 10/08/24 Salena Ricardo RN Specialty 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 Leader Oncology 10/08/24 Stem Roller Operator Relationship Specialty Start Date End Date Hetal Carter PA-C PCP - General Family Medicine 10/28/17 Steven Akers DO [address] [place] [address] Hematology/Oncology 10/08/24 Salena Ricardo RN Specialty 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 Leader Oncology 10/08/24 Anita Laboy, GOLD MINER.AERIAL ERECTOR [address] [place] [address] Job Counselor Family Medicine 10/15/24 Gladys Da Silva, GOLD MINER.AERIAL ERECTOR [address] [place] [address] Job Counselor Family Medicine 10/15/24 Stem Roller Operator Relationship Specialty Start Date End Date Hetal Carter PA-C PCP - General Family Medicine 10/28/17 Steven Akers DO [address] [facility] [place] [address] Hematology/Oncology 10/08/24 Salena Ricardo RN Specialty 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 Leader Oncology 10/08/24 Anita Laboy, GOLD MINER.AERIAL ERECTOR [address] [place] [address] Job Counselor Family Medicine 10/15/24 Gladys Da Silva APRN.AERIAL ERECTOR [address] [place] [address] Job Counselor Family [facility] 10/15/24 Stem Roller Operator Relationship Specialty Start Date End Date Hetal Carter PA-C PCP - General Family Medicine 10/28/17 Steven Akers DO [address] [place] [address] Hematology/Oncology 10/08/24 Salena Ricardo RN Specialty 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 Leader Oncology 10/08/24 Anita Laboy APRN.AERIAL ERECTOR [address] [place] [address] Job Counselor [facility] 10/15/24 Gladys Da Silva GOLD MINER.AERIAL ERECTOR [address] [place] [address] [facility] 10/15/24 Stem Roller Operator Relationship Specialty Start Date End Date Hetal Carter PA-C PCP - General Family Medicine 10/28/17 Steven Akers DO [address] [place] [address] Hematology/Oncology 10/08/24 Salena Ricardo RN Specialty 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 Leader Oncology 10/08/24 Anita Laboy APRN.AERIAL ERECTOR [address] [place] [address] Job Counselor Family Medicine 10/15/24 Gladys Da Silva APRN.AERIAL ERECTOR [address] [facility] [address] Job Counselor Family Medicine 10/15/24 Stem Roller Operator Relationship Specialty Start Date End Date Hetal Carter PA-C PCP - General Family Medicine 10/28/17 Steven Akers DO [address] [place] [facility] [place] [address] Hematology/Oncology 10/08/24 Salena Ricardo RN Specialty 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 Leader Oncology 10/08/24 Anita Laboy, GOLD MINER.AERIAL ERECTOR [address] [place] [address] Job Counselor Family Medicine 10/15/24 Gladys Da Silva GOLD MINER.AERIAL ERECTOR [address] [facility] [address] Job Counselor Family Medicine 10/15/24 Stem Roller Operator Relationship Specialty Start Date End Date Hetal Carter PA-C PCP - General Family Medicine 10/28/17 Steven Akers DO [address] [place] [facility] [place] [address] Hematology/Oncology 10/08/24 Salena Ricardo RN Specialty 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 Leader Oncology 10/08/24 Anita Laboy, GOLD MINER.AERIAL ERECTOR [address] [place] [address] Job Counselor Family Medicine 10/15/24 Gladys Da Silva GOLD MINER.AERIAL ERECTOR [address] [facility] [address] Job Counselor Family Medicine 10/15/24 Stem Roller Operator Relationship Specialty Start Date End Date Hetal Carter PA-C PCP - General Family Medicine 10/28/17 Steven Akers DO [address] [place] [address] Hematology/Oncology 10/08/24 Salena Ricardo RN Specialty 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 Leader Oncology 10/08/24 Anita Laboy, GOLD MINER.AERIAL ERECTOR [address] [facility] [place] [place] [address] Job Counselor Family Medicine 10/15/24 Gladys Da Silva GOLD MINER.AERIAL ERECTOR [address] [facility] [place] [address] Job Counselor Family Medicine 10/15/24 Stem Roller Operator Relationship Specialty Start Date End Date Hetal Carter PA-C PCP - General Family Medicine 10/28/17 Steven Akers DO [address] [place] [address] Hematology/Oncology 10/08/24 Salena Ricardo RN Specialty 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 Leader Oncology 10/08/24 Anita Laboy, GOLD MINER.AERIAL ERECTOR [address] [facility] [place] [place] [address] Job Counselor Family Medicine 10/15/24 Gladys Da Silva, GOLD MINER.AERIAL ERECTOR [address] [place] [address] Job Counselor Family Medicine 10/15/24 Stem Roller Operator Relationship Specialty Start Date End Date Hetal Carter PA-C PCP - General Family Medicine 10/28/17 Steven Akers DO [address] [place] [address] Hematology/Oncology 10/08/24 Salena Ricardo RN Specialty 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 Leader Oncology 10/08/24 Anita Laboy, HARVEY.AERIAL ERECTOR [address] [place] [address] Job Counselor Family Medicine 10/15/24 Gladys Da Silva, GOLD MINER.AERIAL ERECTOR [address] [facility] [address] Job Counselor Family Medicine 10/15/24 Stem Roller Operator Relationship Specialty Start Date End Date Hetal Carter PA-C PCP - General Family Medicine 10/28/17 Steven Akers DO [address] [place] [address] Hematology/Oncology 10/08/24 Salena Ricardo RN Specialty 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 Leader Oncology 10/08/24 Anita Laboy, GOLD MINER.AERIAL ERECTOR [address] [place] [address] [facility] Family [facility] 10/15/24 Gladys Da Silva, GOLD MINER.AERIAL ERECTOR [address] [facility] [address] [facility] Family [facility] 10/15/24 Stem Roller Operator Relationship Specialty Start Date End Date Steven Akers DO [address] [place] [address] Hematology/Oncology 10/08/24 Salena Ricardo RN Specialty 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 Leader Oncology 10/08/24 Anita Laboy, GOLD MINER.AERIAL ERECTOR [address] [place] [address] Job Counselor Family Medicine 10/15/24 Gladys Da Silva, GOLD MINER.AERIAL ERECTOR [address] [facility] [place] [address] Job Counselor Family Medicine 10/15/24 Stem Roller Operator Relationship Specialty Start Date End Date Steven Akers DO [address] [place] [address] Hematology/Oncology 10/08/24 Salena Ricardo RN Specialty 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 Leader Oncology 10/08/24 Anita Laboy, GOLD MINER.AERIAL ERECTOR [address] [facility] [place] [place] [address] Job Counselor Family Medicine 10/15/24 Gladys Da Silva, GOLD MINER.AERIAL ERECTOR [address] [place] [address] Job Counselor Family Medicine 10/15/24 Stem Roller Operator Relationship Specialty Start Date End Date Steven Akers DO [address] [place] [address] Hematology/Oncology 10/08/24 Salena Ricardo RN Specialty 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 Leader Oncology 10/08/24 Anita Laboy, GOLD MINER.AERIAL ERECTOR [address] [place] [address] Job Counselor Family Medicine 10/15/24 Gladys Da Silva, GOLD MINER.AERIAL ERECTOR [address] [facility] [place] [address] Job Counselor Family Medicine 10/15/24 Stem Roller Operator Relationship Specialty Start Date End Date Steven Akers DO [address] [place] [address] Hematology/Oncology 10/08/24 Salena Ricardo RN Specialty 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 Leader Oncology 10/08/24 Anita Laboy, GOLD MINER.AERIAL ERECTOR [address] [facility] [place] [place] [address] Job Counselor Family Medicine 10/15/24 Gladys Da Silva, GOLD MINER.AERIAL ERECTOR [address] [facility] [address] Job Counselor Family Medicine 10/15/24 Stem Roller Operator Relationship Specialty Start Date End Date Gladys Da Silva, GOLD MINER.AERIAL ERECTOR [address] [facility] [address] PCP - General Family Medicine 01/27/25 Steven Akers DO [address] [place] [address] Hematology/Oncology 10/08/24 Salena Ricardo RN Specialty 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 Leader Oncology 10/08/24 Anita Laboy, GOLD MINER.AERIAL ERECTOR [address] [place] [address] Job Counselor Family Medicine 10/15/24 Gladys Da Silva, GOLD MINER.AERIAL ERECTOR [address] [facility] [address] Job Counselor Family Medicine 10/15/24 Stem Roller Operator Relationship Specialty Start Date End Date Gladys Da Silva, GOLD MINER.AERIAL ERECTOR [address] [facility] [address] PCP - General Family Medicine 01/27/25 Steven Akers DO [address] [place] [address] Hematology/Oncology 10/08/24 Salena Ricardo, RN Specialty 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 Leader Oncology 10/08/24 Anita Laboy, HARVEY.AERIAL ERECTOR [address] [place] [address] Job Counselor Family Medicine 10/15/24 Gladys Da Silva, GOLD MINER.AERIAL ERECTOR [address] [place] [address] Job Counselor Family Medicine 10/15/24 Stem Roller Operator Relationship Specialty Start Date End Date Gladys Da Silva, GOLD MINER.AERIAL ERECTOR [address] [facility] [address] PCP - General Family Medicine 01/27/25 Steven Akers DO [address] [facility] [address] Hematology/Oncology 10/08/24 Salena Ricardo RN Specialty 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 Leader Oncology 10/08/24 Anita Laboy, GOLD MINER.AERIAL ERECTOR [address] [place] [address] Job Counselor Family Medicine 10/15/24 Gladys Da Silva, GOLD MINER.AERIAL ERECTOR [address] [place] [address] Job Counselor Family Medicine 10/15/24 Stem Roller Operator Relationship Specialty Start Date End Date Gladys Da Silva, GOLD MINER.AERIAL ERECTOR [address] [facility] [address] PCP - General Family Medicine 01/27/25 Steven Akers DO [address] [place], [place] [address] Hematology/Oncology 10/08/24 Salena Ricardo RN Specialty 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 Leader Oncology 10/08/24 Anita Laboy APRN.AERIAL ERECTOR [address] [place], [place] [id number] [facility] 10/15/24 Gladys Da Silva GOLD MINER.AERIAL ERECTOR [address] [place] [address] [facility] 10/15/24 Team Status: Active Member Role Status Dates MENDEL Kerns Primary Care Provider Active Team Status: Inactive Member Role Status Dates MENDEL Kerns Primary Care Provider Active Start: September 24, 2024 End: September 24, 2024 Dr. Steven Akers DO Attending Provider Active St art: September 24, 2024 End: September 24, 2024 Dr. Steven Akers DO Referring Provider Active St art: September 24, 2024 End: September 24, 2024 Team Status: Inactive Member Role Status Dates MENDEL Kerns Primary Care Provider Active Start: October 01, 2024 End: October 01, 2024 Dr. Steven Akers DO Attending Provider Active St art: October 01, 2024 End: October 01, 2024 Dr. Steven Akers DO Referring Provider Active St art: October 01, 2024 End: October 01, 2024 Team Status: Inactive Member Role Status Dates MENDEL Kerns Primary Care Provider Active Start: October 22, 2024 End: October 22, 2024 Dr. Steven Akers DO Attending Provider Active St art: October 22, 2024 End: October 22, 2024 Dr. Steven Akers DO Referring Provider Active St art: October 22, 2024 End: October 22, 2024 Team Status: Inactive Member Role Status Dates MENDEL Kerns Primary Care Provider Active Start: November 12, 2024 End: November 12, 2024 Dr. Steven Akers DO Attending Provider Active St art: November 12, 2024 End: November 12, 2024 Dr. Steven Akers DO Referring Provider Active St art: November 12, 2024 End: November 12, 2024 Team Status: Inactive Member Role Status Dates MENDEL eKrns Primary Care Provider Active Start: December 03, 2024 End: December 03, 2024 Dr. Steven Akers DO Attending Provider Active St art: December 03, 2024 End: December 03, 2024 Dr. Steven Akers DO Referring Provider Active St art: December 03, 2024 End: December 03, 2024 Team Status: Inactive Member Role Status Dates MENDEL Kerns Primary Care Provider Active Start: December 17, 2024 End: December 17, 2024 Dr. Steven Akers DO Attending Provider Active St art: December 17, 2024 End: December 17, 2024 Dr. Steven Akers DO Referring Provider Active St art: December 17, 2024 End: December 17, 2024 Team Status: Inactive Member Role Status Dates MENDEL Kerns Primary Care Provider Active Start: December 31, 2024 End: December 31, 2024 Dr. Steven Akers DO Attending Provider Active St art: December 31, 2024 End: December 31, 2024 Dr. Steven Akers DO Referring Provider Active St art: December 31, 2024 End: December 31, 2024 Team Status: Inactive Member Role Status Dates MENDEL Kerns Primary Care Provider Active Start: January 14, 2025 End: January 14, 2025 Dr. Steven Akers DO Attending Provider Active St art: January 14, 2025 End: January 14, 2025 Dr. Steven Akers DO Referring Provider Active St art: January 14, 2025 End: January 14, 2025 Team Status: Inactive Member Role Status Dates MENDEL Kerns Primary Care Provider Active Start: January 28, 2025 End: January 28, 2025 Dr. Steven Akers DO Attending Provider Active St art: January 28, 2025 End: January 28, 2025 Dr. Steven Akers DO Referring Provider Active St art: January 28, 2025 End: March 21st, 2025 Stem Roller Operator Relationship Specialty Start Date End Date Suppan, Gladys A, GOLD MINER.AERIAL ERECTOR [address] [facility] [place] [address] PCP - General Family Medicine 01/27/25 Steven Akers DO [address] [place] [address] Hematology/Oncology 10/08/24 Salena Ricardo RN Specialty 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 Leader Oncology 10/08/24 Stem Roller Operator Relationship Specialty Start Date End Date Gladys Da Silva, GOLD MINER.AERIAL ERECTOR [address] [place] [address] PCP - General Family Medicine 01/27/25 Steven Akers DO [address] [facility] [address] Hematology/Oncology 10/08/24 Salena Ricardo RN Specialty 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 Leader Oncology 10/08/24 Stem Roller Operator Relationship Specialty Start Date End Date Gladys Da Silva, GOLD MINER.AERIAL ERECTOR [address] [place] [address] PCP - General Family Medicine 01/27/25 Steven Akers DO [address] [facility] [place] [address] Hematology/Oncology 10/08/24 Salena Ricardo RN Specialty 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 Leader Oncology 10/08/24 Team Status: Active Member Role Status Dates PAWAN Ortiz Primary Care Provider Active Team Status: Inactive Member Role Status Dates Gladys Da Silva [employer] Primary Care Provider Active Start: February 10, 2025 End: February 10, 2025 Dr. Esau Brothers DO Attending Provider Activ e Start: February 10, 2025 End: February 10, 2025 Dr. Esau Brothers DO Emergency Provider Activ e Start: February 10, 2025 End: February 10, 2025 Team Status: Active Member Role Status Dates Gladys Da Silva [employer] Primary Care Provider Active Start: February 10, 2025 Dr. Lalo Felton MD Attending Provider Active S tart: February 10, 2025 Dr. Esau Brothers DO Referring Provider Activ e Start: February 10, 2025 Team Status: Inactive Member Role Status Dates Gladys Da Silva [employer] Primary Care Provider Active Start: February 11, 2025 End: February 11, 2025 Dr. Steven Akers DO Attending Provider Active St art: February 11, 2025 End: February 11, 2025 Dr. Steven Akers DO Referring Provider Active St art: February 11, 2025 End: February 11, 2025 Team Status: Inactive Member Role Status Dates Gladys Da Silva , [employer] Primary Care Provider Active Start: February 25, 2025 End: February 25, 2025 Dr. Steven Akers DO Attending Provider Active St art: February 25, 2025 End: February 25, 2025 Dr. Steven Akers DO Referring Provider Active St art: February 25, 2025 End: February 25, 2025 Stem Roller Operator Relationship Specialty Start Date End Date Gladys Da Silva APRN.AERIAL ERECTOR [address] [place] [address] PCP - General Family Medicine 01/27/25 Steven Akers DO [address] [place] [address] Hematology/Oncology 10/08/24 Salena Ricardo RN Specialty 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 Leader Oncology 10/08/24 Stem Roller Operator Relationship Specialty Start Date End Date Gladys Da Silva APRN.AERIAL ERECTOR [address] [place], [place] [id number] PCP - General Family Medicine 01/27/25 Steven Akers DO [address] [place] [address] Hematology/Oncology 10/08/24 Salena Ricardo RN Specialty 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 Leader Oncology 10/08/24 Team Status: Inactive Member Role Status Dates Gladys Da Silva , [employer] Primary Care Provider Active Start: March 11, 2025 End: March 11, 2025 Dr. Steven Akers DO Attending Provider Active St art: March 11, 2025 End: March 11, 2025 Dr. Steven Akers DO Referring Provider Active St art: March 11, 2025 End: March 11, 2025 Team Status: Inactive Member Role Status Dates Gladys Da Silva [employer] Primary Care Provider Active Start: March 25, 2025 End: March 25, 2025 Dr. Steven Akers DO Attending Provider Active St art: March 25, 2025 End: March 25, 2025 Dr. Steven kAers DO Referring Provider Active St art: March 25, 2025 End: March 25, 2025 Stem Roller Operator Relationship Specialty Start Date End Date Gladys Da Silva APRN.AERIAL ERECTOR [address] [place], [place] [address] PCP - General Family Medicine 01/27/25 Steven Akers DO [address] [place], [place] [id number] Hematology/Oncology 10/08/24 Salena Ricardo RN Specialty 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 Leader Oncology 10/08/24 Team Status: Inactive Member Role Status Dates Gladys Da Silva [employer] Primary Care Provider Active Start: April 08, 2025 End: April 08, 2025 Dr. Steven Akers DO Attending Provider Active St art: April 08, 2025 End: April 08, 2025 Dr. Steven Akers DO Referring Provider Active St art: April 08, 2025 End: April 08, 2025 Stem Roller Operator Relationship Specialty Start Date End Date Gladys Da Silva APRN.AERIAL ERECTOR [address] [place] [address] PCP - General Family Medicine 01/27/25 Steven Akers DO [address] [place] [facility] [place] [address] Hematology/Oncology 10/08/24 Salena Ricardo RN Specialty 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 Leader Oncology 10/08/24 Stem Roller Operator Relationship Specialty Start Date End Date Gladys Da Silva GOLD MINER.AERIAL ERECTOR [address] [facility] [address] PCP - General Family Medicine 01/27/25 Steven Akers DO [address] [place] [facility] [place] [address] Hematology/Oncology 10/08/24 Salena Ricardo RN Specialty 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 Leader Oncology 10/08/24 Stem Roller Operator Relationship Specialty Start Date End Date Gladys Da Silva GOLD MINER.AERIAL ERECTOR [address] [facility] [address] PCP - General Family Medicine 01/27/25 Steven Akers DO [address] [place] [facility] [place] [address] Hematology/Oncology 10/08/24 Salena Ricardo RN Specialty 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 Leader Oncology 10/08/24 Team Status: Inactive Member Role Status Dates PAWAN Ortiz Primary Care Provider Active Start: April 22, 2025 End: April 22, 2025 Dr. Steven Akers DO Attending Provider Active St art: April 22, 2025 End: April 22, 2025 Dr. Steven Akers DO Referring Provider Active St art: April 22, 2025 End: April 22, 2025 Stem Roller Operator Relationship Specialty Start Date End Date Gladys Da Silva GOLD MINER.AERIAL ERECTOR [address] [facility] [address] PCP - General Family Medicine 01/27/25 Steven Akers DO [address] [address] Hematology/Oncology 10/08/24 Salena Ricardo RN Specialty 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 Leader Oncology 10/08/24 Team Status: Active Member Role/Relationship Status Dates Gladys Da Silva , [employer] Primary Care Provider Active Team Status: Inactive Member Role/Relationship Status Dates MENDEL Kerns Primary Care Provider Active Start: January 14, 2025 End: January 14, 2025 Dr. Steven Akers DO Attending Provider Active St art: January 14, 2025 End: January 14, 2025 Dr. Steven Akers DO Referring Provider Active St art: January 14, 2025 End: January 14, 2025 Team Status: Inactive Member Role/Relationship Status Dates MENDEL Kerns Primary Care Provider Active Start: January 28, 2025 End: January 28, 2025 Dr. Steven Akers DO Attending Provider Active St art: January 28, 2025 End: January 28, 2025 Dr. Steven Akers DO Referring Provider Active St art: January 28, 2025 End: January 28, 2025 Team Status: Inactive Member Role/Relationship Status Dates Gladys Da Silva , [employer] Primary Care Provider Active Start: February 10, 2025 End: February 10, 2025 Dr. Esau Brothers DO Attending Provider Activ e Start: February 10, 2025 End: February 10, 2025 Dr. Esau Brothers DO Emergency Provider Activ e Start: February 10, 2025 End: February 10, 2025 Team Status: Active Member Role/Relationship Status Dates Gladys Da Silva [employer] Primary Care Provider Active Start: February 10, 2025 Dr. Lalo Felton MD Attending Provider Active S tart: February 10, 2025 Dr. Esau Brothers DO Referring Provider Activ e Start: February 10, 2025 Team Status: Inactive Member Role/Relationship Status Dates Gladys Da Silva , [employer] Primary Care Provider Active Start: February 11, 2025 End: February 11, 2025 Dr. Steven Akers DO Attending Provider Active St art: February 11, 2025 End: February 11, 2025 Dr. Steven Akers , Referring Provider Active St art: February 11, 2025 End: February 11, 2025 Team Status: Inactive Member Role/Relationship Status Dates Gladys Da Silva , [employer] Primary Care Provider Active Start: February 25, 2025 End: February 25, 2025 Dr. Steven Akers , Attending Provider Active St art: February 25, 2025 End: February 25, 2025 Dr. Steven Akers , Referring Provider Active St art: February 25, 2025 End: February 25, 2025 Team Status: Inactive Member Role/Relationship Status Dates Gladys Da Silva , [employer] Primary Care Provider Active Start: March 11, 2025 End: March 11, 2025 Dr. Steven Akers , Attending Provider Active St art: March 11, 2025 End: March 11, 2025 Dr. Steven Akers DO Referring Provider Active St art: March 11, 2025 End: March 11, 2025 Team Status: Inactive Member Role/Relationship Status Dates Gladys Da Silva , [employer] Primary Care Provider Active Start: March 25, 2025 End: March 25, 2025 Dr. Steven Akers DO Attending Provider Active St art: March 25, 2025 End: March 25, 2025 Dr. Steven Akers , Referring Provider Active St art: March 25, 2025 End: March 25, 2025 Team Status: Inactive Member Role/Relationship Status Dates Gladys Da Silva , [employer] Primary Care Provider Active Start: April 08, 2025 End: April 08, 2025 Dr. Steven Akers DO Attending Provider Active St art: April 08, 2025 End: April 08, 2025 Dr. Steven Akers DO Referring Provider Active St art: April 08, 2025 End: April 08, 2025 Team Status: Inactive Member Role/Relationship Status Dates Gladys Da Silva , [employer] Primary Care Provider Active Start: April 22, 2025 End: April 22, 2025 Dr. Steven Akers DO Attending Provider Active St art: April 22, 2025 End: April 22, 2025 Dr. tSeven Akers DO Referring Provider Active St art: April 22, 2025 End: April 22, 2025 Team Status: Inactive Member Role/Relationship Status Dates Gladys Da Silva , [employer] Primary Care Provider Active Start: May 06, 2025 End: May 06, 2025 Dr. Steven Akers DO Attending Provider Active St art: May 06, 2025 End: May 06, 2025 Dr. Steven Akers DO Referring Provider Active St art: May 06, 2025 End: May 06, 2025 Team Status: Inactive Member Role/Relationship Status Dates Sunday [place], [place] Primary Care Provider Active Start: January 28, 2025 End: January 28, 2025 Dr. Steven Akers DO Attending Provider Active St art: January 28, 2025 End: January 28, 2025 Dr. Steven Akers DO Referring Provider Active St art: January 28, 2025 End: January 28, 2025 Team Status: Inactive Member Role/Relationship Status Dates Gladys Da Silva , [employer] Primary Care Provider Active Start: February 10, 2025 End: February 10, 2025 Dr. Esau Brothers DO Attending Provider Activ e Start: February 10, 2025 End: February 10, 2025 Dr. Easu Brothers DO Emergency Provider Activ e Start: February 10, 2025 End: February 10, 2025 Team Status: Active Member Role/Relationship Status Dates Gladys Da Silva , [employer] Primary Care Provider Active Start: February 10, 2025 Dr. Lalo Felton MD Attending Provider Active S tart: February 10, 2025 Dr. Esau Brothers DO Referring Provider Activ e Start: February 10, 2025 Team Status: Inactive Member Role/Relationship Status Dates Gladys Da Silva , [employer] Primary Care Provider Active Start: February 11, 2025 End: February 11, 2025 Dr. Steven Akers DO Attending Provider Active St art: February 11, 2025 End: February 11, 2025 Dr. Steven Akers DO Referring Provider Active St art: February 11, 2025 End: February 11, 2025 Team Status: Inactive Member Role/Relationship Status Dates Gladys Da Silva , [employer] Primary Care Provider Active Start: February 25, 2025 End: February 25, 2025 Dr. Steven Akers DO Attending Provider Active St art: February 25, 2025 End: February 25, 2025 Dr. Steven Akers DO Referring Provider Active St art: February 25, 2025 End: February 25, 2025 Team Status: Inactive Member Role/Relationship Status Dates Gladys Da Silva , [employer] Primary Care Provider Active Start: March 11, 2025 End: March 11, 2025 Dr. Steven Akers , Attending Provider Active St art: March 11, 2025 End: March 11, 2025 Dr. Steven Akers DO Referring Provider Active St art: March 11, 2025 End: March 11, 2025 Team Status: Inactive Member Role/Relationship Status Dates Gladys Da Silva , [employer] Primary Care Provider Active Start: March 25, 2025 End: March 25, 2025 Dr. Steven Akers , Attending Provider Active St art: March 25, 2025 End: March 25, 2025 Dr. Steven Akers , Referring Provider Active St art: March 25, 2025 End: March 25, 2025 Team Status: Inactive Member Role/Relationship Status Dates Gladys Da Silva , [employer] Primary Care Provider Active Start: April 08, 2025 End: April 08, 2025 Dr. Steven Akers , Attending Provider Active St art: April 08, 2025 End: April 08, 2025 Dr. Steven Akers DO Referring Provider Active St art: April 08, 2025 End: April 08, 2025 Team Status: Inactive Member Role/Relationship Status Dates Gladys Da Silva , [employer] Primary Care Provider Active Start: April 22, 2025 End: April 22, 2025 Dr. Steven Akers DO Attending Provider Active St art: April 22, 2025 End: April 22, 2025 Dr. Steven Akers DO Referring Provider Active St art: April 22, 2025 End: April 22, 2025 Team Status: Inactive Member Role/Relationship Status Dates Gladys Da Silva , [employer] Primary Care Provider Active Start: May 06, 2025 End: May 06, 2025 Dr. Steven Akers DO Attending Provider Active St art: May 06, 2025 End: May 06, 2025 Dr. Steven Akers DO Referring Provider Active St art: May 06, 2025 End: May 06, 2025 Team Status: Inactive Member Role/Relationship Status Dates Gladys Da Silva , [employer] Primary Care Provider Active Start: May 20, 2025 End: May 20, 2025 Dr. Steven Akers , Attending Provider Active St art: May 20, 2025 End: May 20, 2025 Dr. Steven Akers , Referring Provider Active St art: May 20, 2025 End: May 20, 2025 Team Status: Inactive Member Role/Relationship Status Dates Gladys Da Silva , [employer] Primary Care Provider Active Start: February 10, 2025 End: February 10, 2025 Dr. Esau Brothers DO Attending Provider Activ e Start: February 10, 2025 End: February 10, 2025 Dr. Esau Brothers DO Emergency Provider Activ e Start: February 10, 2025 End: February 10, 2025 Team Status: Active Member Role/Relationship Status Dates Gladys Da Silva , [employer] Primary Care Provider Active Start: February 10, 2025 Dr. Lalo Felton MD Attending Provider Active S tart: February 10, 2025 Dr. Esau Brothers DO Referring Provider Activ e Start: February 10, 2025 Team Status: Inactive Member Role/Relationship Status Dates Gladys Da Silva , [employer] Primary Care Provider Active Start: February 11, 2025 End: February 11, 2025 Dr. Steven Akers DO Attending Provider Active St art: February 11, 2025 End: February 11, 2025 Dr. Steven Akers DO Referring Provider Active St art: February 11, 2025 End: February 11, 2025 Team Status: Inactive Member Role/Relationship Status Dates Gladys Da Silva , [employer] Primary Care Provider Active Start: February 25, 2025 End: February 25, 2025 Dr. Steven Akers DO Attending Provider Active St art: February 25, 2025 End: February 25, 2025 Dr. Steven Akers DO Referring Provider Active St art: February 25, 2025 End: February 25, 2025 Team Status: Inactive Member Role/Relationship Status Dates Gladys Da Silva , [employer] Primary Care Provider Active Start: March 11, 2025 End: March 11, 2025 Dr. Steven Akers DO Attending Provider Active St art: March 11, 2025 End: March 11, 2025 Dr. Steven Akers DO Referring Provider Active St art: March 11, 2025 End: March 11, 2025 Team Status: Inactive Member Role/Relationship Status Dates Gladys Da Silva , [employer] Primary Care Provider Active Start: March 25, 2025 End: March 25, 2025 Dr. Steven Akers , Attending Provider Active St art: March 25, 2025 End: March 25, 2025 Dr. Steven Akers DO Referring Provider Active St art: March 25, 2025 End: March 25, 2025 Team Status: Inactive Member Role/Relationship Status Yair Da Silva , [employer] Primary Care Provider Active Start: April 08, 2025 End: April 08, 2025 Dr. Steven Akers DO Attending Provider Active St art: April 08, 2025 End: April 08, 2025 Dr. Steven Akers DO Referring Provider Active St art: April 08, 2025 End: April 08, 2025 Team Status: Inactive Member Role/Relationship Status Yair Da Silva , [employer] Primary Care Provider Active Start: April 22, 2025 End: April 22, 2025 Dr. Steven Akers DO Attending Provider Active St art: April 22, 2025 End: April 22, 2025 Dr. Steven Akers DO Referring Provider Active St art: April 22, 2025 End: April 22, 2025 Team Status: Inactive Member Role/Relationship Status Yair Da Silva , [employer] Primary Care Provider Active Start: May 06, 2025 End: May 06, 2025 Dr. Steven Akers DO Attending Provider Active St art: May 06, 2025 End: May 06, 2025 Dr. Steven Akers DO Referring Provider Active St art: May 06, 2025 End: May 06, 2025 Team Status: Inactive Member Role/Relationship Status Yair Da Silva , [employer] Primary Care Provider Active Start: May 20, 2025 End: May 20, 2025 Dr. Steven Akers DO Attending Provider Active St art: May 20, 2025 End: May 20, 2025 Dr. Steven Akers DO Referring Provider Active St art: May 20, 2025 End: May 20, 2025 Team Status: Inactive Member Role/Relationship Status Yair Da Silva , [employer] Primary Care Provider Active Start: June 03, 2025 End: June 03, 2025 Dr. Steven Akers DO Attending Provider Active St art: June 03, 2025 End: June 03, 2025 Dr. Steven Akers , Referring Provider Active St art: June 03, 2025 End: June 03, 2025 Team Status: Inactive Member Role/Relationship Status Dates Gladys Da Silva , [employer] Primary Care Provider Active Start: February 25, 2025 End: February 25, 2025 Dr. Steven Akers , Attending Provider Active St art: February 25, 2025 End: February 25, 2025 Dr. Steven Akers , Referring Provider Active St art: February 25, 2025 End: February 25, 2025 Team Status: Inactive Member Role/Relationship Status Dates Gladys Da Silva , [employer] Primary Care Provider Active Start: March 11, 2025 End: March 11, 2025 Dr. Steven Akers , Attending Provider Active St art: March 11, 2025 End: March 11, 2025 Dr. Steven Akers DO Referring Provider Active St art: March 11, 2025 End: March 11, 2025 Team Status: Inactive Member Role/Relationship Status Dates Gladys Da Silva , [employer] Primary Care Provider Active Start: March 25, 2025 End: March 25, 2025 Dr. Steven Akers DO Attending Provider Active St art: March 25, 2025 End: March 25, 2025 Dr. Steven Akers , Referring Provider Active St art: March 25, 2025 End: March 25, 2025 Team Status: Inactive Member Role/Relationship Status Dates Gladys Da Silva , [employer] Primary Care Provider Active Start: April 08, 2025 End: April 08, 2025 Dr. Steven Akers DO Attending Provider Active St art: April 08, 2025 End: April 08, 2025 Dr. Steven Akers DO Referring Provider Active St art: April 08, 2025 End: April 08, 2025 Team Status: Inactive Member Role/Relationship Status Dates Gladys Da Silva , [employer] Primary Care Provider Active Start: April 22, 2025 End: April 22, 2025 Dr. Steven Akers DO Attending Provider Active St art: April 22, 2025 End: April 22, 2025 Dr. Steven Akers DO Referring Provider Active St art: April 22, 2025 End: April 22, 2025 Team Status: Inactive Member Role/Relationship Status Dates Gladys Da Silva , [employer] Primary Care Provider Active Start: May 06, 2025 End: May 06, 2025 Dr. Steven Akers DO Attending Provider Active St art: May 06, 2025 End: May 06, 2025 Dr. Steven Akers DO Referring Provider Active St art: May 06, 2025 End: May 06, 2025 Team Status: Inactive Member Role/Relationship Status Dates Gladys Da Silva , [employer] Primary Care Provider Active Start: May 20, 2025 End: May 20, 2025 Dr. Steven Akers DO Attending Provider Active St art: May 20, 2025 End: May 20, 2025 Dr. Steven Akers DO Referring Provider Active St art: May 20, 2025 End: May 20, 2025 Team Status: Inactive Member Role/Relationship Status Dates Gladys Da Silva , [employer] Primary Care Provider Active Start: June 03, 2025 End: June 03, 2025 Dr. Steven Akers DO Attending Provider Active St art: June 03, 2025 End: June 03, 2025 Dr. Steven Akers DO Referring Provider Active St art: June 03, 2025 End: June 03, 2025 Team Status: Inactive Member Role/Relationship Status Dates Gladys Da Silva , [employer] Primary Care Provider Active Start: June 17, 2025 End: June 17, 2025 Dr. Steven Akers DO Attending Provider Active St art: June 17, 2025 End: June 17, 2025 Dr. Steven Akers DO Referring Provider Active St art: June 17, 2025 End: June 17, 2025 Stem Roller Operator Relationship Specialty Start Date End Date Gladys Da Silva APRN.AERIAL ERECTOR [address] [place] [address] PCP - General Family Medicine 01/27/25 Steven Akers DO [address] [place], [place] [address] Hematology/Oncology 10/08/24 Salena Ricardo RN Specialty 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 Leader Oncology 10/08/24 Stem Roller Operator Relationship Specialty Start Date End Date Gladys Da Silva APRN.AERIAL ERECTOR [address] [place] [address] PCP - General Family Medicine 01/27/25 Steven Akers DO [address] [place] [address] Hematology/Oncology 10/08/24 Salena Ricardo RN Specialty 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 Leader Oncology 10/08/24 Team Status: Inactive Member Role/Relationship Status Dates Gladys Da Silva [employer] Primary Care Provider Active Start: March 11, 2025 End: March 11, 2025 Dr. Steven Akers DO Attending Provider Active St art: March 11, 2025 End: March 11, 2025 Dr. Steven Akers DO Referring Provider Active St art: March 11, 2025 End: March 11, 2025 Team Status: Inactive Member Role/Relationship Status Dates Gladys Da Silva [employer] Primary Care Provider Active Start: March 25, 2025 End: March 25, 2025 Dr. Steven Akers DO Attending Provider Active St art: March 25, 2025 End: March 25, 2025 Dr. Steven Akers DO Referring Provider Active St art: March 25, 2025 End: March 25, 2025 Team Status: Inactive Member Role/Relationship Status Dates Gladys Da Silva [employer] Primary Care Provider Active Start: April 08, 2025 End: April 08, 2025 Dr. Steven Akers DO Attending Provider Active St art: April 08, 2025 End: April 08, 2025 Dr. Steven Akers DO Referring Provider Active St art: April 08, 2025 End: April 08, 2025 Team Status: Inactive Member Role/Relationship Status Dates Gladys Da Silva [employer] Primary Care Provider Active Start: April 22, 2025 End: April 22, 2025 Dr. Steven Akers DO Attending Provider Active St art: April 22, 2025 End: April 22, 2025 Dr. Steven Akers DO Referring Provider Active St art: April 22, 2025 End: April 22, 2025 Team Status: Inactive Member Role/Relationship Status Dates Gladys Da Silva [employer] Primary Care Provider Active Start: May 06, 2025 End: May 06, 2025 Dr. Steven Akers DO Attending Provider Active St art: May 06, 2025 End: May 06, 2025 Dr. Steven Akers DO Referring Provider Active St art: May 06, 2025 End: May 06, 2025 Team Status: Inactive Member Role/Relationship Status Dates Gladys Da Silva , [employer] Primary Care Provider Active Start: May 20, 2025 End: May 20, 2025 Dr. Steven Akers DO Attending Provider Active St art: May 20, 2025 End: May 20, 2025 Dr. Steven Akers DO Referring Provider Active St art: May 20, 2025 End: May 20, 2025 Team Status: Inactive Member Role/Relationship Status Dates Gladys Da Silva , [employer] Primary Care Provider Active Start: June 03, 2025 End: June 03, 2025 Dr. Steven Akers DO Attending Provider Active St art: June 03, 2025 End: June 03, 2025 Dr. Steven Akers DO Referring Provider Active St art: June 03, 2025 End: June 03, 2025 Team Status: Inactive Member Role/Relationship Status Dates Gladys Da Silva , [employer] Primary Care Provider Active Start: June 17, 2025 End: June 17, 2025 Dr. Steven Akers DO Attending Provider Active St art: June 17, 2025 End: June 17, 2025 Dr. Steven Akers DO Referring Provider Active St art: June 17, 2025 End: June 17, 2025 Team Status: Inactive Member Role/Relationship Status Dates Gladys Da Silva , [employer] Primary Care Provider Active Start: July 01, 2025 End: July 01, 2025 Dr. Steven Akers DO Attending Provider Active St art: July 01, 2025 End: July 01, 2025 Dr. Steven Akers DO Referring Provider Active St art: July 01, 2025 End: July 01, 2025 Stem Roller Operator Relationship Specialty Start Date End Date Gladys Da Silva APRN.AERIAL ERECTOR [address] [place] [address] PCP - General Family Medicine 01/27/25 Steven Akers DO [address] [place] [address] Hematology/Oncology 10/08/24 Salena Ricardo RN Specialty 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 Leader Oncology 10/08/24 Team Status: Inactive Member Role/Relationship Status Dates Gladys Da Silva , [employer] Primary Care Provider Active Start: March 25, 2025 End: March 25, 2025 Dr. Steven Akers DO Attending Provider Active St art: March 25, 2025 End: March 25, 2025 Dr. Steven Akers DO Referring Provider Active St art: March 25, 2025 End: March 25, 2025 Team Status: Inactive Member Role/Relationship Status Dates Gladys Da Silva , [employer] Primary Care Provider Active Start: April 08, 2025 End: April 08, 2025 Dr. Steven Akers DO Attending Provider Active St art: April 08, 2025 End: April 08, 2025 Dr. Steven Akers DO Referring Provider Active St art: April 08, 2025 End: April 08, 2025 Team Status: Inactive Member Role/Relationship Status Dates Gladys Da Silva , [employer] Primary Care Provider Active Start: April 22, 2025 End: April 22, 2025 Dr. Steven Akers DO Attending Provider Active St art: April 22, 2025 End: April 22, 2025 Dr. Steven Akers DO Referring Provider Active St art: April 22, 2025 End: April 22, 2025 Team Status: Inactive Member Role/Relationship Status Dates Gladys Da Silva , [employer] Primary Care Provider Active Start: May 06, 2025 End: May 06, 2025 Dr. Steven Akers DO Attending Provider Active St art: May 06, 2025 End: May 06, 2025 Dr. Steven Akers DO Referring Provider Active St art: May 06, 2025 End: May 06, 2025 Team Status: Inactive Member Role/Relationship Status Dates Gladys Da Silva , [employer] Primary Care Provider Active Start: May 20, 2025 End: May 20, 2025 Dr. Steven Akers DO Attending Provider Active St art: May 20, 2025 End: May 20, 2025 Dr. Steven Akers DO Referring Provider Active St art: May 20, 2025 End: May 20, 2025 Team Status: Inactive Member Role/Relationship Status Dates Gladys Da Silva , [employer] Primary Care Provider Active Start: June 03, 2025 End: June 03, 2025 Dr. Steven Akers DO Attending Provider Active St art: June 03, 2025 End: June 03, 2025 Dr. Steven Akers DO Referring Provider Active St art: June 03, 2025 End: June 03, 2025 Team Status: Inactive Member Role/Relationship Status Dates Gladys Da Silva , [employer] Primary Care Provider Active Start: June 17, 2025 End: June 17, 2025 Dr. Steven Akers DO Attending Provider Active St art: June 17, 2025 End: June 17, 2025 Dr. Steven Akers DO Referring Provider Active St art: June 17, 2025 End: June 17, 2025 Team Status: Inactive Member Role/Relationship Status Dates Gladys Da Silva , [employer] Primary Care Provider Active Start: July 01, 2025 End: July 01, 2025 Dr. Steven Akers DO Attending Provider Active St art: July 01, 2025 End: July 01, 2025 Dr. Steven Akers DO Referring Provider Active St art: July 01, 2025 End: July 01, 2025 Team Status: Inactive Member Role/Relationship Status Dates Gladys Da Silva , [employer] Primary Care Provider Active Start: July 15, 2025 End: July 15, 2025 Dr. Steven Akers DO Attending Provider Active St art: July 15, 2025 End: July 15, 2025 Dr. Steven Akers DO Referring Provider Active St art: July 15, 2025 End: July 15, 2025 Team Status: Active Member Role/Relationship Status Dates Gladys Da Silva , [employer] Primary care physician Active Team Status: Inactive Member Role/Relationship Status Dates Gladys Da Silva , [employer] Primary care physician Active Start: April 22, 2025 End: April 22, 2025 Dr. Steven Akers DO Attending physician Active S tart: April 22, 2025 End: April 22, 2025 Dr. Steven Akers DO Referring Provider Active St art: April 22, 2025 End: April 22, 2025 Team Status: Inactive Member Role/Relationship Status Dates Gladys Da Silva , [employer] Primary care physician Active Start: May 06, 2025 End: May 06, 2025 Dr. Steven Akers , Attending physician Active S tart: May 06, 2025 End: May 06, 2025 Dr. Steven Akers DO Referring Provider Active St art: May 06, 2025 End: May 06, 2025 Team Status: Inactive Member Role/Relationship Status Dates Gladys Da Silva , [employer] Primary care physician Active Start: May 20, 2025 End: May 20, 2025 Dr. Steven Akers DO Attending physician Active S tart: May 20, 2025 End: May 20, 2025 Dr. Steven Akers DO Referring Provider Active St art: May 20, 2025 End: May 20, 2025 Team Status: Inactive Member Role/Relationship Status Dates Gladys Da Silva , [employer] Primary care physician Active Start: June 03, 2025 End: June 03, 2025 Dr. Steven Akers DO Attending physician Active S tart: June 03, 2025 End: June 03, 2025 Dr. Steven Akers DO Referring Provider Active St art: June 03, 2025 End: June 03, 2025 Team Status: Inactive Member Role/Relationship Status Dates Gladys Da Silva , [employer] Primary care physician Active Start: June 17, 2025 End: June 17, 2025 Dr. Steven Akers DO Attending physician Active S tart: June 17, 2025 End: June 17, 2025 Dr. Steven Akers DO Referring Provider Active St art: June 17, 2025 End: June 17, 2025 Team Status: Inactive Member Role/Relationship Status Dates Gladys Da Silva [employer] Primary care physician Active Start: July 01, 2025 End: July 01, 2025 Dr. Steven Akers DO Attending physician Active S tart: July 01, 2025 End: July 01, 2025 Dr. Steven Akers DO Referring Provider Active St art: July 01, 2025 End: July 01, 2025 Team Status: Inactive Member Role/Relationship Status Dates Gladys Da Silva , [employer] Primary care physician Active Start: July 15, 2025 End: July 15, 2025 Dr. Steven Akers DO Attending physician Active S tart: July 15, 2025 End: July 15, 2025 Dr. Steven Akers DO Referring Provider Active St art: July 15, 2025 End: July 15, 2025 Team Status: Inactive Member Role/Relationship Status Dates Gladys Da Silva , [employer] Primary care physician Active Start: July 29, 2025 End: July 29, 2025 Dr. Steven Akers , Attending physician Active S tart: July 29, 2025 End: July 29, 2025 Dr. Steven Akers DO Referring Provider Active St art: July 29, 2025 End: July 29, 2025 Team Status: Inactive Member Role/Relationship Status Dates Gladys Da Silva , [employer] Primary care physician Active Start: August 12, 2025 End: August 12, 2025 Dr. Steven Akers , Attending physician Active S tart: August 12, 2025 End: August 12, 2025 Dr. Steven Akers DO Referring Provider Active St art: August 12, 2025 End: August 12, 2025 Team Status: Inactive Member Role/Relationship Status Yair Da Silva , [employer] Primary care physician Active Start: May 20, 2025 End: May 20, 2025 Dr. Steven Akers DO Attending physician Active S tart: May 20, 2025 End: May 20, 2025 Dr. Steven Akers DO Referring Provider Active St art: May 20, 2025 End: May 20, 2025 Team Status: Inactive Member Role/Relationship Status Yair Da Silva , [employer] Primary care physician Active Start: June 03, 2025 End: June 03, 2025 Dr. Steven Akers DO Attending physician Active S tart: June 03, 2025 End: June 03, 2025 Dr. Steven Akers DO Referring Provider Active St art: June 03, 2025 End: June 03, 2025 Team Status: Inactive Member Role/Relationship Status Yair Da Silva , [employer] Primary care physician Active Start: June 17, 2025 End: June 17, 2025 Dr. Steven Akers DO Attending physician Active S tart: June 17, 2025 End: June 17, 2025 Dr. Steven Akers DO Referring Provider Active St art: June 17, 2025 End: June 17, 2025 Team Status: Inactive Member Role/Relationship Status Yair Da Silva , [employer] Primary care physician Active Start: July 01, 2025 End: July 01, 2025 Dr. Steven Akers DO Attending physician Active S tart: July 01, 2025 End: July 01, 2025 Dr. Steven Akers DO Referring Provider Active St art: July 01, 2025 End: July 01, 2025 Team Status: Inactive Member Role/Relationship Status Dates Gladys Da Silva [employer] Primary care physician Active Start: July 15, 2025 End: July 15, 2025 Dr. Steven Akers , Attending physician Active S tart: July 15, 2025 End: July 15, 2025 Dr. Steven Akers DO Referring Provider Active St art: July 15, 2025 End: July 15, 2025 Team Status: Inactive Member Role/Relationship Status Dates Gladys Da Silva [employer] Primary care physician Active Start: July 29, 2025 End: July 29, 2025 Dr. Steven Akers DO Attending physician Active S tart: July 29, 2025 End: July 29, 2025 Dr. Steven Akers DO Referring Provider Active St art: July 29, 2025 End: July 29, 2025 Team Status: Inactive Member Role/Relationship Status Dates Gladys Da Silva [employer] Primary care physician Active Start: August 12, 2025 End: August 12, 2025 Dr. Steven Akers DO Attending physician Active S tart: August 12, 2025 End: August 12, 2025 Dr. Steven Akers DO Referring Provider Active St art: August 12, 2025 End: August 12, 2025 Team Status: Inactive Member Role/Relationship Status Yair Da Silva [employer] Primary care physician Active Start: August 26, 2025 End: August 26, 2025 Dr. Steven Akers DO Attending physician Active S tart: August 26, 2025 End: August 26, 2025 Dr. Steven Akers DO Referring Provider Active St art: August 26, 2025 End: August 26, 2025 Team Status: Inactive Member Role/Relationship Status Dates Gladys Da Silva [employer] Primary care physician Active Start: September 09, 2025 End: September 09, 2025 Dr. Steven Akers DO Attending physician Active S tart: September 09, 2025 End: September 09, 2025 Dr. Steven Akers DO Referring Provider Active St art: September 09, 2025 End: September 09, 2025 Goals (unrecognized section and content) Goals may be documented in a n alternate sectionGoals may be documented in an alternate sectionGoals may be documented in an alternate sectionGoals may be documented in an alternate sectionGoals may be documented in an alternate sectionGoals may be documented in an alternate sectionGoals may be documented in an alternate sectionGoals may be documented in an alternate sectionGoals may be documented in an alternate sectionGoals may be documented in an alternate sectionGoals may be documented in an alternate sectionGoals may be documented in an alternate sectionGoals may be documented in an alternate sectionGoals may be documented in an alternate sectionGoals may be documented in an alternate sectionGoals may be documented in an alternate sectionGoals may be documented in an alternate sectionGoals may be documented in an alternate sectionGoals may be documented in an alternate sectionGoals may be documented in an alternate sectionGoals may be documented in an alternate sectionGoals may be documented in an alternate sectionGoals may be documented in an alternate sectionGoals may be documented in an alternate sectionGoals may be documented in an alternate sectionGoals may be documented in an alternate sectionGoals may be documented in an alternate sectionGoals may be documented in an alternate sectionGoals may be documented in an alternate sectionGoals may be documented in an alternate sectionGoals may be documented in an alternate sectionGoals may be documented in an alternate sectionGoals may be documented in an alternate sectionGoals may be documented in an alternate sectionGoals may be documented in an alternate sectionGoals may be documented in an alternate sectionGoals may be documented in an alternate section Inactive Administered Medications - up to 3 most recent administrations Administered Medications (un recognized section and content) Medication Order MAR Action Action Date Dose Rate Site luspatercept-aamt 139 mg in syringe 2.78 mL (REBLOZYL) 139 mg (rounded from 138.95 mg = 1.75 mg/kg/dose 79.4 kg Treatment plan Recorded weight), SUBCUTANEOUS, ONCE, 1 dose, On Sandra 01/08/24 at 1030, Refrigerate - EXP: (24 HR) Inject into the upper arm, thigh, and/or abdomen. Doses requiring larger reconstituted volumes (greater than 1.2 mL) should be divided into separate syringes; inject into separate sites. Given 01/08/2024 10:34 AM EST 139 mg Abdomen, RLQ Inactive Administered Medications - up to 3 most recent administrations Medication Order MAR Action Action Date Dose Rate Site decitabine 8.01 mg subcutaneous injection (DACOGEN) 8.01 mg (0.1 mg/kg/dose 80.1 kg Treatment plan Recorded weight), SUBCUTANEOUS, ONCE, 1 dose, On Fri02/12/24 at 1030, EXP: Hazardous Chemotherapy Drug: Use appropriate PPE. Refrigerate. Given 02/12/2024 11:05 AM EDT 8.01 mg Abdominal Tissue Inactive Administered Medications - up to 3 most recent administrations Medication Order MAR Action Action Date Dose Rate Site decitabine 8.01 mg subcutaneous injection (DACOGEN) 8.01 mg (0.1 mg/kg/dose 80.1 kg Treatment plan Recorded weight), SUBCUTANEOUS, ONCE, 1 dose, On Fri02/19/24 at 1330, EXP:_15 min RT (mix cold) Hazardous Chemotherapy Drug: Use appropriate PPE. Refrigerate. Given 02/19/2024 1:33 PM EDT 8.01 mg Abdominal Tissue Inactive Administered Medications - up to 3 most recent administrations Medication Order MAR Action Action Date Dose Rate Site decitabine 8.01 mg subcutaneous injection (DACOGEN) 8.01 mg (0.1 mg/kg/dose 80.1 kg Treatment plan Recorded weight), SUBCUTANEOUS, ONCE, 1 dose, On Fri02/26/24 at 1330, EXP:_15 min RT (mix cold) Hazardous Chemotherapy Drug: Use appropriate PPE. Refrigerate. Given 02/26/2024 1:28 PM EDT 8.01 mg Abdominal Tissue (unrecognized sect ion and content) No Status Records FoundNo Status Records Found INFORMATION SOURCE (unrecogn ized section and content) DATE CREATED AUTHOR 09/10/2025 [facility] DATE CREATED AUTHOR AUTHOR'S ORGANIZ ATION 09/18/2025 [facility] FOR RECORDS PERTAINING TO PATIENTS WHO ARE OR HAVE BEEN ENROLLED IN A CHEMICAL DEPENDENCY/SUBSTANCEABUSE PROGRAM, SOME INFORMATION MAY BE OMITTED. This clinical summary was aggregated from multiple sources. Caution should be exercised in using it in the provision of clinical care. This summary normalizes information from multiple sources, and as a consequence, information in this document may materially change the coding, format and clinical context of patient data. In addition, data may be omitted in some cases. CLINICAL DECISIONS SHOULD BE BASED ON THE PRIMARY CLINICAL RECORDS. [facility]. provides no warranty or guarantee of the accuracy or completeness of information in this document.
== END 2025-10-07 23:59 | disposition home or self-care (01) ==
LOC: MEDOUTP 08:35
PROVIDERS: PCP Clinical Nurse Specialist Adult Health; Referring Provider Internal Medicine Hematology & Oncology; Visit Provider Internal Medicine Hematology & Oncology
DX: D46.20 Refractory anemia with excess of blasts, unspecified (principal)
CPT/HCPCS: 36430; 86850; 86900; 86901; P9016; A4216

== ENCOUNTER 2025-10-21 08:32 | Outpatient (CLI) | payer MEDICARE, SELFPAY ==
[2025-10-21 08:50] VITALS: BP 126/59; PULSE 75; RESP 16; TEMP 36.2; O2SAT 94; BMI 26.3
[2025-10-21 09:21] VITALS: BP 117/53; PULSE 70; RESP 16; TEMP 36.4; O2SAT 93
[2025-10-21 11:23] VITALS: BP 129/59; PULSE 72; RESP 16; TEMP 36.6; O2SAT 94
[2025-10-21 12:23] VITALS: BP 130/55; PULSE 69; RESP 16; TEMP 36.6
[2025-10-21 13:04] VITALS: BP 132/58; PULSE 70; TEMP 36.6
== END 2025-10-21 23:59 | disposition home or self-care (01) ==
LOC: MEDOUTP 08:32
PROVIDERS: PCP Clinical Nurse Specialist Adult Health; Referring Provider Internal Medicine Hematology & Oncology; Visit Provider Internal Medicine Hematology & Oncology
DX: D46.9 Myelodysplastic syndrome, unspecified (principal)
CPT/HCPCS: 36430; 86850; 86900; 86901; P9016; A4216

== ENCOUNTER 2025-11-04 08:35 | Outpatient (CLI) | payer MEDICARE, SELFPAY ==
[2025-11-04] VITALS (7 sets, daily range): BP systolic 113–144; BP diastolic 52–61; PULSE 69–85; RESP 16; TEMP 36.5–36.8; O2SAT 92–97
--- OUTSIDE RECORDS SUMMARY | 2025-11-04 08:43 | XMS RPT_ITS | CCD ---
Author Organization [facility] CliniSysd Care Team Providers Care Retirement Officer Name Role Phone Sunday Carter PA-C Primary Care Provider Raul OGLESBY PA Sunday Phipps Primary Care Provider [phone] MENDEL Fraga Referring Provider Dr. Subhash Alfaro Attending Provider MENDEL Fraga Primary Care Provider MENDEL Fraga Referring Provider Dr. Subhash Alfaro Attending Provider Dr. Venkatesh Cast Attending Provider Penny TEXTILE CONSERVATOR, TEXTILE CONSERVATOR-C Delisa Attending Provider Dr. Jose Grimaldo Emergency Provider Dr. Lisa Armstrong Admit Provider Dr. Lisa Armstrong Attending Provider Dr. Lisa Armstrong Other Provider Dr. Neo Franks Other Provider Dr. Subhash Alfaro Other Provider Dr. Lary Russo Other Provider Dr. Fritz Obrien Other Provider Dr. Bakari Saeed Other Provider Unavailable Dr. Ilan Freitas Other Provider Dr. Henok Lopez Other Provider Penny TEXTILE CONSERVATOR, TEXTILE CONSERVATOR-C Delisa Other Provider Dr. Crispin Mcadams Attending Provider Dr. Crispin Mcadams Other Provider Dr. Lary Russo Attending Provider Gilmer GONZALEZ, TEXTILE CONSERVATOR-C Ritu Attending Provider Dr. Lalo Emery Other Provider Carter PA-C, M Moise Primary Care Provider Carter PA-C, M Moise Primary Care Provider Carter PA, PA [facility] Primary Care Provider Carter PA, PA M Moise Referring Provider Penny TEXTILE CONSERVATOR, TEXTILE CONSERVATOR-C Delisa Attending Provider Carter PA, PA [facility] Primary Care Provider Carter PA, PA [facility] Referring Provider Penny TEXTILE CONSERVATOR, TEXTILE CONSERVATOR-Victoria Hercules Attending Provider Gee PA, PA Aysha Brand Attending Provider Dr. Venkatesh Cast Attending Provider Carter PA, PA [facility] Primary Care Provider Carter PA, PA [facility] Referring Provider Juan José TEXTILE CONSERVATOR, TEXTILE CONSERVATOR-Victoria Renteria Attending Provider Carter PA, PA [facility] Primary Care Provider Dr. Venkatesh Cast Attending Provider Gee PA, PA Aysha Brand Referring Provider Carter PA, PA [facility] Referring Provider Carter PA, PA [facility] Primary Care Provider [phone] Carter PA, PA [facility] Primary Care Provider Carter PA, PA [facility] Referring Provider Juan José TEXTILE CONSERVATOR, TEXTILE CONSERVATOR-Victoria Renteria Attending Provider Carter PA-C, Sunday Moise Primary Care Provider Carter PA-C, Hetal Phipps Primary Care Provider Unavailable Masci DO, Steven Hollingsworth Unavailable Doup RN, Salena Unavailable Unavailable Haluis alberto DELPHI PROGRAMMER.FACTORY REPRESENTATIVE, Anita Unavailable Suppan DELPHI PROGRAMMER.FACTORY REPRESENTATIVE, Gladys A Unavailable Suppan DELPHI PROGRAMMER.FACTORY REPRESENTATIVE, Gladys A Unavailable Suppan DELPHI PROGRAMMER.FACTORY REPRESENTATIVE, Gladys A Unavailable Suppan DELPHI PROGRAMMER.FACTORY REPRESENTATIVE, Gladys A Primary Care Provi denise Sunday [...] Masci DO, Dr. Harris Referring Provider Suppan COCOA BEAN ROASTER HELPER, Gladys Primary Care Provider Masci DO, Dr. Harris Attending Provider Masci DO, Dr. Harris Referring Provider Suppan COCOA BEAN ROASTER HELPER, Gladys Primary Care Provider Masci DO, Dr. Harris Attending Provider Masci DO, Dr. Harris Referring Provider Suppan COCOA BEAN ROASTER HELPER, Gladys Primary Care Provider Masci DO, Dr. Harris Attending Provider Masci DO, Dr. Harris Referring Provider Suppan COCOA BEAN ROASTER HELPER, Gladys Primary Care Physician [phone] Masci DO, Dr. Harris Attending Physician Masci [...] MASCI, STEVEN Hollingsworth Referring Unavailable Suppan PAWAN, [facility] Primary Care Physician Masci DO, Dr. Harris Attending Physician Masci DO, Dr. Harris Referring Provider Sunday Fraga Primary Care Unavailable Masci, Steven Referring Unavailable Masci, Steven Attending Unavailable Sunday Fraga [facility] Primary Care Unavailable Masci, Steven Referring Unavailable Masci, Steven Attending Unavailable Sunday Fraga [place] [facility] Unavailable Masci, Steven Referring Unavailable Masci, Steven Attending Unavailable Sunday Fraga [place] [facility] Unavailable Masci, Steven Referring Unavailable [...] Unavailable Masci, Steven Referring Unavailable Sunday Fraga [place] [facility] Unavailable Masci, Steven Referring Unavailable [...] Klusty-Gurdeep, Esau Attending Unavailabl e Sunday Fraga [place] [facility] Unavailable Masci, Steven Attending Unavailable Masci, Steven Referring Unavailable Suppan, Gladys Primary Care Unavailable Masci, Steven Referring Unavailable Masci, Steven Attending Unavailable Masci, Steven Referring Unavailable Masci, Steven Attending Unavailable Suppan, Gladys Primary Care Unavailable Sunday Fraga Primary Care Unavailable Masci, Steven Referring Unavailable Masci, Steven Attending Unavailable Sunday Fraga [place] [facility] Unavailable Masci, Steven Referring Unavailable Masci, Steven Attending Unavailable Masci, Steven Referring Unavailable Masci, Steven Attending Unavailable Suppan, Gladys Primary Care Unavailable Masci, Steven Referring Unavailable Masci, Steven Attending Unavailable Suppan, Gladys Primary Care Unavailable Sunday Fraga [facility] Unavailable Masci, Steven Referring Unavailable Masci, Steven [...] sources) tamsulosin Drug Allergy 12-19-19 21 Intolerance [facility] fluticasone / salmeterol (4 sources) fluticasone / salmeterol Drug Allergy 03-15-20 11 Intolerance [facility] Work Phone: Mirtazapine (4 sources) Mirtazapine Drug Allergy 01-27-20 24 Intolerance [facility] Quinolones (antibiotic) (4 sources) levoFLOXacin Drug Allergy 01-15-20 24 Intolerance [facility] Serotonin Reuptake Inhibitors (SSRIs) (4 sources) PARoxetine Drug Allergy 11-07-20 17 Intolerance [facility] Sulfonamides (antibiotic) (4 sources) Sulfamethoxazole Drug Allergy 01-21-20 13 GI Upset [facility] (20 sources) fluticasone / salmeterol; Translations: [FLUTICASONE PROPION-SALMETEROL] Drug Allergy 03-15-20 11 Other: See Comments, Intolerance [facility] Work Phone: (20 sources) PARoxetine; Translations: [PAROXETINE HCL] Drug Allergy 11-07-20 17 Other: See Comments, Intolerance [facility] (20 sources) Sulfamethoxazole; Translations: [SULFAMETHOXAZOLE] Drug Allergy 01-21-20 13 GI Upset [facility] Comment on above: SORE THROAT (20 sources) tamsulosin; Translations: [TAMSULOSIN] Drug Allergy 12-19-19 21 Intolerance [facility] Work Phone: (20 sources) antibiotics [Other] Propensity to adverse reactions 03-15-20 11 Other: See Comments [facility] Work Phone: (20 sources) levoFLOXacin; Translations: [LEVOFLOXACIN] Drug Allergy 02-15-20 22 Intolerance [facility] Comment on above: WALKING AND PASSED OUT AND FELL INTO A WALL (20 sources) Trimethoprim Drug Allergy 02-15-20 22 Other [facility] Comment on above: SORE THROAT (20 sources) remdesivir Drug Allergy 01-28-20 23 Other [facility] (20 sources) Mirtazapine; Translations: [MIRTAZAPINE] Drug Allergy 01-27-20 24 Intolerance [facility] Work Phone: (1 source) levoFLOXacin Drug Allergy 08-26-20 25 [facility] (1 source) Sulfamethoxazole Drug Allergy 08-26-20 25 [facility] (1 source) Trimethoprim Drug Allergy 08-26-20 25 [facility] (1 source) remdesivir Drug allergy (disorder) 08-26-20 25 [facility] Medications Current Medications Medication Drug Class(es) [...] 1 hour prior to bone marrow biopsy. [id number] 200 actuat albuterol 0.09 mg/actuat metered dose [...] Start: 05-30-2020 take 2000 [IU] by mo [facility] once daily Cholecalciferol (Vitamin D3) Active [...] needed docusate sodium 50 mg / sennosides, senior living 8.6 mg oral tablet (20 sources) Start: [...] tablet by garret th daily at bedtime. Hermitage-3 Fatty Acids-Fish Oil (Fish Oil) 1 EACH capsule (20 sources) Start: 05-22-2017 Hermitage-3 Fatty Acids-Fish Oil (Fish Oil) 1 EACH capsule Active 1 EACH PO TWICE A DAY May 22, 2017 5:12pm Start: 05-22-2017 End: 10-10-2022 Hermitage-3 Fatty Acids-Fish Oil (Fish Oil) 1 EACH capsule Discontinued 1 NMA PO DAILY May 21, 2017 11:00pm October 10, 2022 11:31am supplement Start: 05-22-2017 End: 10-10-2022 Hermitage-3 Fatty Acids-Fish Oil (Fish Oil) 1 EACH capsule Discontinued 1 NMA PO DAILY May 22, 2017 12:00am October 10, 2022 12:31pm supplement Start: 05-22-2017 End: 10-10-2022 Hermitage-3 Fatty Acids-Fish Oil (Fish Oil) 1 EACH capsule Discontinued 1 NMA PO DAILY May 22, 2017 12:00am October 10, 2022 12:31pm Start: 05-22-2017 End: 10-10-2022 Hermitage-3 Fatty Acids-Fish Oil (Fish Oil) 1 EACH capsule Discontinued 1 NMA PO DAILY May 21, 2017 11:00pm October 10, 2022 11:31am Start: 05-22-2017 End: 10-10-2022 Hermitage-3 Fatty Acids-Fish Oil (Fish Oil) 1 EACH capsule Discontinued 1 EACH PO DAILY May 21, 2017 11:00pm October 10, 2022 11:31am Start: 05-22-2017 End: 10-10-2022 Hermitage-3 Fatty Acids-Fish Oil (Fish Oil) 1 EACH capsule Discontinued 1 EACH PO DAILY May 22, 2017 12:00am October 10, 2022 12:31pm Start: 05-22-2017 Hermitage-3 Fatty Acids-Fish Oil (Fish Oil) 1 EACH [...] February 10, 2025 12:00am polyethylene glycol 3350 94883 mg powder for oral solution (19 sources) [...] on above: Take 1 capsule by mo [facility] every 8 hours. Copper (20 sources) [...] on above: Take 2 tablets by mo [facility] twice daily. Lactobacillus acidophilus (20 sources) [...] Comment on above: [facility] luspatercept-aamt 75 mg injection [...] on above: Take 1 capsule by mo [facility] daily at bedtime. 0.6 ml methylnaltrexone [...] Comment on above: Take 1 tablet by [facility] once daily. QUERCETIN DIHYDRATE, BULK, MISC (3 sources) End: 05-21-2022 QUERCETIN DIHYDRATE, BULK, MISC PRN 0 05/21/2022 Discontinued (Discontinued by Patient) QUERCETIN DIHYDR ATE, BULK, MISC PRN 0 Active Comment on above: PRN sennosides, senior living 8.6 mg oral tablet (20 sources) Start: [...] Test Name Value Interpretation Reference Range Facility [facility] 09-08-2025 Normal [facility] Comment on above: Result Comment: [id number] OP RC TRANSFUSED 09/09/25 0842 [id number] OP RC TRANSFUSED 09/09/25 1041 Performed By: #### B , BT #### [facility] [address] [place] [address]. [place], [address] CBC W Auto Differential pane l (Bld)on 09-08-2025 Basophils (Bld) [#/Vol] 10*3/uL Normal <0.11 C [facility] Comment on above: Order Comment: Speci men Type: BLOOD SPECIMENOrdering Facility: [facility] Address: [address] [place] [address] Performed By: #### 5 7021-8 ####[facility] SHERRILIANNE [id number] [place] [address] [place] Basophils/100 WBC (Bld) 0.4 % Normal [facility] Comment on above: Order Comment: Speci men Type: BLOOD SPECIMENOrdering Facility: [facility] Address: [address] [place] [address] Performed By: #### 5 7021-8 ####[facility] [id number] [place] [address] [place] Differential cell count method Nom (Bld) Auto Normal [facility] Comment on above: Order Comment: Speci men Type: BLOOD SPECIMENOrdering Facility: [facility] Address: [address] [place] [address] Performed By: #### 5 7021-8 ####[facility] [id number] [place] [address] [place] Eosinophils (Bld) [#/Vol] 0.09 10*3/uL Normal <0.46 [facility] Comment on above: Order Comment: Speci men Type: BLOOD SPECIMENOrdering Facility: [facility] Address: [address] [place] [address] Performed By: #### 5 7021-8 ####[facility] [id number] [place] [address] [place] Eosinophils/100 WBC (Bld) 2.0 % Normal [facility] Comment on above: Order Comment: Speci men Type: BLOOD SPECIMENOrdering Facility: [facility] Address: [address] [place] [address] Performed By: #### 5 7021-8 ####[facility] [id number] [place] [address] [place] Erythrocyte distribution width (RBC) [Ratio] 19.9 % High 11.5-15.0 [facility] Comment on above: Order Comment: Speci men Type: BLOOD SPECIMENOrdering Facility: [facility] Address: [address] [place] [address] Performed By: #### 5 7021-8 ####[facility] WILLIAM [id number] [place] [address] [place] Hematocrit (Bld) [Volume fraction] 23.4 % Low 39.0-51.0 [facility] Comment on above: Order Comment: Speci men Type: BLOOD SPECIMENOrdering Facility: [facility] Address: [address] [place] [address] Performed By: #### 5 7021-8 ####[facility]ITALNCSAURABH [id number] [place] [address] [place] Hemoglobin (Bld) [Mass/Vol] 7.9 g/dL Low 13.0-17.0 [facility] Comment on above: Order Comment: Speci men Type: BLOOD SPECIMENOrdering Facility: [facility] Address: [address] [place] [address] Performed By: #### 5 7021-8 ####[facility]PITALLUISITO [id number] [place] [address] [place] Immature granulocytes (Bld) [#/Vol] 0.03 10*3/uL Normal <0.10 [facility] Comment on above: Order Comment: Speci men Type: BLOOD SPECIMENOrdering Facility: [facility] Address: [address] [place] [address] Performed By: #### 5 7021-8 ####[facility]ITALNCLIA [id number] [place] [address] [place] Immature granulocytes/100 WBC (Bld) 0.7 % Normal [facility] Comment on above: Order Comment: Speci men Type: BLOOD SPECIMENOrdering Facility: [facility] Address: [address] [place] [address] Performed By: #### 5 7021-8 ####[facility]PITALWNCLIA [id number] [place] [address] [place] Lymphocytes (Bld) [#/Vol] 0.73 10*3/uL Low 1.00-4.00 [facility] Comment on above: Order Comment: Speci men Type: BLOOD SPECIMENOrdering Facility: [facility] Address: [address] [place] [address] Performed By: #### 5 7021-8 ####[facility]PITALNCLIA [id number] [place] [address] [place] Lymphocytes/100 WBC (Bld) 16.2 % Normal [facility] Comment on above: Order Comment: Speci men Type: BLOOD SPECIMENOrdering Facility: [facility] Address: [address] [place] [address] Performed By: #### 5 7021-8 ####[facility] HOSPITALNCLI [id number] [place] [address] [place] MCH (RBC) [Entitic mass] 29.8 pg Normal 26.0-34.0 [facility] Comment on above: Order Comment: Speci men Type: BLOOD SPECIMENOrdering Facility: [facility] Address: [address] [place] [address] Performed By: #### 5 7021-8 ####[facility] CENTERLIA [id number] [place] [address] [place] MCHC (RBC) [Mass/Vol] 33.8 g/dL Normal 30.5-36.0 [facility] Comment on above: Order Comment: Speci men Type: BLOOD SPECIMENOrdering Facility: [facility] Address: [address] [place] [address] Performed By: #### 5 7021-8 ####[facility] HOSPITALNCLI [id number] [place] [address] [place] MCV (RBC) [Entitic vol] 88.3 fL Normal 80.0-100.0 C [facility] Comment on above: Order Comment: Speci men Type: BLOOD SPECIMENOrdering Facility: [facility] Address: [address] [place] [address] Performed By: #### 5 7021-8 ####[facility] CENTERA [id number] [place] [address] [place] Monocytes (Bld) [#/Vol] 0.26 10*3/uL Normal <0.87 [facility] Comment on above: Order Comment: Speci men Type: BLOOD SPECIMENOrdering Facility: [facility] Address: [address] [place] [address] Performed By: #### 5 7021-8 ####[facility]ENTERA [id number] [place] [address] [place] Monocytes/100 WBC (Bld) 5.8 % Normal C [facility] Comment on above: Order Comment: Speci men Type: BLOOD SPECIMENOrdering Facility: [facility] Address: [address] [place] [address] Performed By: #### 5 7021-8 ####[facility] CENTERA [id number] [place] [address] [place] Neutrophils (Bld) [#/Vol] 3.37 10*3/uL Normal 1.45-7.50 [facility] Comment on above: Order Comment: Speci men Type: BLOOD SPECIMENOrdering Facility: [facility] Address: [address] [place] [address] Performed By: #### 5 7021-8 ####[facility]PITALNCLIA [id number] [place] [address] [place] Neutrophils/100 WBC (Bld) 74.9 % Normal [facility] Comment on above: Order Comment: Speci men Type: BLOOD SPECIMENOrdering Facility: [facility] Address: [address] [place] [address] Performed By: #### 5 7021-8 ####[facility] SHERRILIANNE [id number] [place] [address] [place] Nucleated RBC (Bld) [#/Vol] 10*3/uL Normal <0.01 [facility] Comment on above: Order Comment: Speci men Type: BLOOD SPECIMENOrdering Facility: [facility] Address: [address] [place] [address] Performed By: #### 5 7021-8 ####[facility] CENTERDarrick [id number] [place] [address] [place] Nucleated RBC/100 WBC (Bld) [Ratio] 0.0 /100 WBC Normal [facility] Comment on above: Order Comment: Speci men Type: BLOOD SPECIMENOrdering Facility: [facility] Address: [address] [place] [address] Performed By: #### 5 7021-8 ####[facility] CENTERDarrick [id number] [place] [address] [place] Platelet mean volume (Bld) [Entitic vol] 10.2 fL Normal 9.0-12.7 [facility] Comment on above: Order Comment: Speci men Type: BLOOD SPECIMENOrdering Facility: [facility] Address: [address] [place] [address] Performed By: #### 5 7021-8 ####[facility] CENTERLIA [id number] [place] [address] [place] Platelets (Bld) [#/Vol] 148 10*3/uL Low 150-400 [facility] Comment on above: Order Comment: Speci men Type: BLOOD SPECIMENOrdering Facility: [facility] Address: [address] [place] [address] Performed By: #### 5 7021-8 ####[facility] HOSPITALWNCLIA [id number] [place] [address] [place] RBC (Bld) [#/Vol] 2.65 10*6/uL Low 4.20-6.00 [facility] Comment on above: Order Comment: Speci men Type: BLOOD SPECIMENOrdering Facility: [facility] Address: [address] [place] [address] Performed By: #### 5 7021-8 ####[facility]PITALNCLIA [id number] [place] [address] [place] WBC (Bld) [#/Vol] 4.50 10*3/uL Normal 3.70-11.00 [facility] Comment on above: Order Comment: Speci men Type: BLOOD SPECIMENOrdering Facility: [facility] Address: [address] [place] [address] Performed By: #### 5 7021-8 ####[facility]PITALNCLIA [id number] [place] [address] [place] CNPNon 09-08-2025 CNPN Normal [facility] Type AND Screenon 09-08-2025 Ab SCREEN GEL PENDING Normal [facility] Comment on above: Order Comment: PRETR ANSFUSION PLT = 148 PERFORMED AT CCFWPRETRANSFUSION HGB = 7.9 HCT = 23.4 PERFORMED AT CCFWN1 @0815NYA Performed By: #### B ARNIE VELAS #### [facility] [address] [place], [address] ABO and Rh group Nom (Bld) Blood group B Rh(D) positive Normal [facility] Comment on above: Order Comment: PRETR ANSFUSION PLT = 148 PERFORMED AT CCFWPRETRANSFUSION HGB = 7.9 HCT = 23.4 PERFORMED AT FWN1 @0815NYA Performed By: #### B ARNIE VELAS #### [facility] [address] [place], [address] BRCon 08-25-2025 RC Normal [facility] Comment on above: Result Comment: [id number] OP RC TRANSFUSED 08/26/25 1028 [id number] BP RC TRANSFUSED 08/26/25 0838 Performed By: #### B ARNIE VELAS #### [facility] [address] [place], [address] CBC W Auto Differential pane l (Bld)on 08-25-2025 Basophils (Bld) [#/Vol] 10*3/uL Normal <0.11 C [facility] Comment on above: Order Comment: Speci men Type: BLOOD SPECIMENOrdering Facility: [facility] Address: [address] [place] [address] Performed By: #### 5 7021-8 ####[facility] HOSPITALWROCKYLIA [id number] [place] [address] [place] Basophils/100 WBC (Bld) 0.2 % Normal C [facility] Comment on above: Order Comment: Speci men Type: BLOOD SPECIMENOrdering Facility: [facility] Address: [address] [place] [address] Performed By: #### 5 7021-8 ####[facility] HOSPITALWROCKYLIA [id number] [place] [address] [place] Differential cell count method Nom (Bld) Auto Normal [facility] Comment on above: Order Comment: Speci men Type: BLOOD SPECIMENOrdering Facility: [facility] Address: [address] [place] [address] Performed By: #### 5 7021-8 ####[facility] HOSPITALWNCLIA [id number] [place] [address] [place] Eosinophils (Bld) [#/Vol] 0.09 10*3/uL Normal <0.46 [facility] Comment on above: Order Comment: Speci men Type: BLOOD SPECIMENOrdering Facility: [facility] Address: [address] [place] [address] Performed By: #### 5 7021-8 ####[facility] [id number] [place] [address] [place] Eosinophils/100 WBC (Bld) 2.0 % Normal [facility] Comment on above: Order Comment: Speci men Type: BLOOD SPECIMENOrdering Facility: [facility] Address: [address] [place] [address] Performed By: #### 5 7021-8 ####[facility] [id number] [place] [address] [place] Erythrocyte distribution width (RBC) [Ratio] 19.3 % High 11.5-15.0 [facility] Comment on above: Order Comment: Speci men Type: BLOOD SPECIMENOrdering Facility: [facility] Address: [address] [place] [address] Performed By: #### 5 7021-8 ####[facility] [id number] [place] [address] [place] Hematocrit (Bld) [Volume fraction] 22.4 % Low 39.0-51.0 [facility] Comment on above: Order Comment: Speci men Type: BLOOD SPECIMENOrdering Facility: [facility] Address: [address] [place] [address] Performed By: #### 5 7021-8 ####[facility]A [id number] [place] [address] [place] Hemoglobin (Bld) [Mass/Vol] 7.7 g/dL Low 13.0-17.0 [facility] Comment on above: Order Comment: Speci men Type: BLOOD SPECIMENOrdering Facility: [facility] Address: [address] [place] [address] Performed By: #### 5 7021-8 ####[facility] MILLTOWNCLIA [id number] [place] [address] [place] Immature granulocytes (Bld) [#/Vol] 0.03 10*3/uL Normal <0.10 [facility] Comment on above: Order Comment: Speci men Type: BLOOD SPECIMENOrdering Facility: [facility] Address: [address] [place] [address] Performed By: #### 5 7021-8 ####[facility] HOSPITALWNCLIA [id number] [place] [address] [place] Immature granulocytes/100 WBC (Bld) 0.7 % Normal [facility] Comment on above: Order Comment: Speci men Type: BLOOD SPECIMENOrdering Facility: [facility] Address: [address] [place] [address] Performed By: #### 5 7021-8 ####[facility] CENTERLIA [id number] [place] [address] [place] Lymphocytes (Bld) [#/Vol] 0.56 10*3/uL Low 1.00-4.00 [facility] Comment on above: Order Comment: Speci men Type: BLOOD SPECIMENOrdering Facility: [facility] Address: [address] [place] [address] Performed By: #### 5 7021-8 ####[facility] MILLWNCLIA [id number] [place] [address] [place] Lymphocytes/100 WBC (Bld) 12.3 % Normal [facility] Comment on above: Order Comment: Speci men Type: BLOOD SPECIMENOrdering Facility: [facility] Address: [address] [place] [address] Performed By: #### 5 7021-8 ####[facility] MILLWNCLIA [id number] [place] [address] [place] MCH (RBC) [Entitic mass] 30.4 pg Normal 26.0-34.0 [facility] Comment on above: Order Comment: Speci men Type: BLOOD SPECIMENOrdering Facility: [facility] Address: [address] [place] [address] Performed By: #### 5 7021-8 ####[facility] HOSPITALLUISITO [id number] [address] [place] MCHC (RBC) [Mass/Vol] 34.4 g/dL Normal 30.5-36.0 [facility] Comment on above: Order Comment: Speci men Type: BLOOD SPECIMENOrdering Facility: [facility] Address: [address] [place] [address] Performed By: #### 5 7021-8 ####[facility] HOSPITALROCKYDarrick [id number] [address] [place] MCV (RBC) [Entitic vol] 88.5 fL Normal 80.0-100.0 C [facility] Comment on above: Order Comment: Speci men Type: BLOOD SPECIMENOrdering Facility: [facility] Address: [address] [place] [address] Performed By: #### 5 7021-8 ####[facility] HOSPITALLUISITO [id number] [place] [address] [place] Monocytes (Bld) [#/Vol] 0.21 10*3/uL Normal <0.87 [facility] Comment on above: Order Comment: Speci men Type: BLOOD SPECIMENOrdering Facility: [facility] Address: [address] [place] [address] Performed By: #### 5 7021-8 ####[facility] HOSPITALNCLI [id number] [address] [place] Monocytes/100 WBC (Bld) 4.6 % Normal C [facility] Comment on above: Order Comment: Speci men Type: BLOOD SPECIMENOrdering Facility: [facility] Address: [address] [place] [address] Performed By: #### 5 7021-8 ####[facility] SHERRIWNCLIA [id number] [place] [address] [place] Neutrophils (Bld) [#/Vol] 3.64 10*3/uL Normal 1.45-7.50 [facility] Comment on above: Order Comment: Speci men Type: BLOOD SPECIMENOrdering Facility: [facility] Address: [address] [place] [address] Performed By: #### 5 7021-8 ####[facility] CENTERA [id number] [place] [address] [place] Neutrophils/100 WBC (Bld) 80.2 % Normal [facility] Comment on above: Order Comment: Speci men Type: BLOOD SPECIMENOrdering Facility: [facility] Address: [address] [place] [address] Performed By: #### 5 7021-8 ####[facility]ENTERA [id number] [place] [address] [place] Nucleated RBC (Bld) [#/Vol] 10*3/uL Normal <0.01 [facility] Comment on above: Order Comment: Speci men Type: BLOOD SPECIMENOrdering Facility: [facility] Address: [address] [place] [address] Performed By: #### 5 7021-8 ####[facility] CENTERA [id number] [place] [address] [place] Nucleated RBC/100 WBC (Bld) [Ratio] 0.0 /100 WBC Normal [facility] Comment on above: Order Comment: Speci men Type: BLOOD SPECIMENOrdering Facility: [facility] Address: [address] [place] [address] Performed By: #### 5 7021-8 ####[facility] BECKYNCLIA [id number] [place] [address] [place] Platelet mean volume (Bld) [Entitic vol] 10.8 fL Normal 9.0-12.7 [facility] Comment on above: Order Comment: Speci men Type: BLOOD SPECIMENOrdering Facility: [facility] Address: [address] [place], [place] [address] Performed By: #### 5 7021-8 ####[facility] HOSPITALNCLIA [id number] [place] [address] [place] Platelets (Bld) [#/Vol] 145 10*3/uL Low 150-400 [facility] Comment on above: Order Comment: Speci men Type: BLOOD SPECIMENOrdering Facility: [facility] Address: [address] [place], [place] [address] Performed By: #### 5 7021-8 ####[facility] HOSPITALNCLIA [id number] [place] [address] [place] RBC (Bld) [#/Vol] 2.53 10*6/uL Low 4.20-6.00 [facility] Comment on above: Order Comment: Speci men Type: BLOOD SPECIMENOrdering Facility: [facility] Address: [address] [place] [address] Performed By: #### 5 7021-8 ####[facility] HOSPITALWNCLIA [id number] [place] [address] [place] WBC (Bld) [#/Vol] 4.54 10*3/uL Normal 3.70-11.00 [facility] Comment on above: Order Comment: Speci men Type: BLOOD SPECIMENOrdering Facility: [facility] Address: [address] [place] [address] Performed By: #### 5 7021-8 ####[facility] HOSPITALNCLIA [id number] [place] [address] [place] Type AND Screenon 08-25-2025 Ab SCREEN GEL Negative Normal [facility] Comment on above: Order Comment: PRETR ANSFUSION HGB = 7.7 HCT = 22.4 PERFORMED AT [facility] N 08/26/2025 @ 0800 N Y A Performed By: #### B MARGO VELA #### [facility] [address] [place], [address] CNPNon 08-15-2025 CNPN Normal [facility] BRCon 08-11-2025 RC Normal [facility] Comment on above: Result Comment: [id number] BN RC TRANSFUSED 08/12/25 0907 [id number] BN RC TRANSFUSED 08/12/25 1118 Performed By: #### B MARGO VELA #### [facility] [address] [place], [address] CBC W Auto Differential pane l (Bld)on 08-11-2025 Basophils (Bld) [#/Vol] 10*3/uL Normal <0.11 [facility] Comment on above: Order Comment: Speci men Type: BLOOD SPECIMENOrdering Facility: [facility] Address: [address] [place] [address] Performed By: #### 5 7021-8 ####[facility]ENTERA [id number] [place] [address] [place] Basophils/100 WBC (Bld) 0.2 % Normal [facility] Comment on above: Order Comment: Speci men Type: BLOOD SPECIMENOrdering Facility: [facility] Address: [address] [place] [address] Performed By: #### 5 7021-8 ####[facility] CENTERLIA [id number] [place] [address] [place] Differential cell count method Nom (Bld) Auto Normal [facility] Comment on above: Order Comment: Speci men Type: BLOOD SPECIMENOrdering Facility: [facility] Address: [address] [place] [address] Performed By: #### 5 7021-8 ####[facility] SHERRIHUDSONNCLESLY [id number] [place] [address] [place] Eosinophils (Bld) [#/Vol] 0.09 10*3/uL Normal <0.46 [facility] Comment on above: Order Comment: Speci men Type: BLOOD SPECIMENOrdering Facility: [facility] Address: [address] [place] [address] Performed By: #### 5 7021-8 ####[facility] [id number] [place] [address] [place] Eosinophils/100 WBC (Bld) 1.4 % Normal [facility] Comment on above: Order Comment: Speci men Type: BLOOD SPECIMENOrdering Facility: [facility] Address: [address] [place] [address] Performed By: #### 5 7021-8 ####[facility] [id number] [place] [address] [place] Erythrocyte distribution width (RBC) [Ratio] 17.9 % High 11.5-15.0 [facility] Comment on above: Order Comment: Speci men Type: BLOOD SPECIMENOrdering Facility: [facility] Address: [address] [place] [address] Performed By: #### 5 7021-8 ####[facility] [id number] [place] [address] [place] Hematocrit (Bld) [Volume fraction] 21.8 % Low 39.0-51.0 [facility] Comment on above: Order Comment: Speci men Type: BLOOD SPECIMENOrdering Facility: [facility] Address: [address] [place] [address] Performed By: #### 5 7021-8 ####[facility] HOSPITALNCLIA [id number] [place] [address] [place] Hemoglobin (Bld) [Mass/Vol] 7.5 g/dL Low 13.0-17.0 [facility] Comment on above: Order Comment: Speci men Type: BLOOD SPECIMENOrdering Facility: [facility] Address: [address] [place] [address] Performed By: #### 5 7021-8 ####[facility] HOSPITALNCLIA [id number] [place] [address] [place] Immature granulocytes (Bld) [#/Vol] 0.04 10*3/uL Normal <0.10 [facility] Comment on above: Order Comment: Speci men Type: BLOOD SPECIMENOrdering Facility: [facility] Address: [address] [place] [address] Performed By: #### 5 7021-8 ####[facility] HOSPITALNCLIA [id number] [place] [address] [place] Immature granulocytes/100 WBC (Bld) 0.6 % Normal [facility] Comment on above: Order Comment: Speci men Type: BLOOD SPECIMENOrdering Facility: [facility] Address: [address] [place] [address] Performed By: #### 5 7021-8 ####[facility] HOSPITALNCLIA [id number] [place] [address] [place] Lymphocytes (Bld) [#/Vol] 0.70 10*3/uL Low 1.00-4.00 [facility] Comment on above: Order Comment: Speci men Type: BLOOD SPECIMENOrdering Facility: [facility] Address: [address] [place] [address] Performed By: #### 5 7021-8 ####[facility] [id number] [place] [address] [place] Lymphocytes/100 WBC (Bld) 10.9 % Normal [facility] Comment on above: Order Comment: Speci men Type: BLOOD SPECIMENOrdering Facility: [facility] Address: [address] [place] [address] Performed By: #### 5 7021-8 ####[facility] HOSPITALLUISITO [id number] [place] [address] [place] MCH (RBC) [Entitic mass] 30.5 pg Normal 26.0-34.0 [facility] Comment on above: Order Comment: Speci men Type: BLOOD SPECIMENOrdering Facility: [facility] Address: [address] [place] [address] Performed By: #### 5 7021-8 ####[facility] HOSPITALROCKYDarrick [id number] [place] [address] [place] MCHC (RBC) [Mass/Vol] 34.4 g/dL Normal 30.5-36.0 [facility] Comment on above: Order Comment: Speci men Type: BLOOD SPECIMENOrdering Facility: [facility] Address: [address] [place] [address] Performed By: #### 5 7021-8 ####[facility] HOSPITALLUISITO [id number] [place] [address] [place] MCV (RBC) [Entitic vol] 88.6 fL Normal 80.0-100.0 C [facility] Comment on above: Order Comment: Speci men Type: BLOOD SPECIMENOrdering Facility: [facility] Address: [address] [place] [address] Performed By: #### 5 7021-8 ####[facility] HOSPITALNCLI [id number] [place] [address] [place] Monocytes (Bld) [#/Vol] 0.28 10*3/uL Normal <0.87 [facility] Comment on above: Order Comment: Speci men Type: BLOOD SPECIMENOrdering Facility: [facility] Address: [address] [place] [address] Performed By: #### 5 7021-8 ####[facility] [id number] [place] [address] [place] Monocytes/100 WBC (Bld) 4.3 % Normal [facility] Comment on above: Order Comment: Speci men Type: BLOOD SPECIMENOrdering Facility: [facility] Address: [address] [place] [address] Performed By: #### 5 7021-8 ####[facility] [id number] [place] [address] [place] Neutrophils (Bld) [#/Vol] 5.32 10*3/uL Normal 1.45-7.50 [facility] Comment on above: Order Comment: Speci men Type: BLOOD SPECIMENOrdering Facility: [facility] Address: [address] [place] [address] Performed By: #### 5 7021-8 ####[facility] [id number] [place] [address] [place] Neutrophils/100 WBC (Bld) 82.6 % Normal [facility] Comment on above: Order Comment: Speci men Type: BLOOD SPECIMENOrdering Facility: [facility] Address: [address] [place] [address] Performed By: #### 5 7021-8 ####[facility] [id number] [place] [address] [place] Nucleated RBC (Bld) [#/Vol] 0.02 10*3/uL High <0.01 [facility] Comment on above: Order Comment: Speci men Type: BLOOD SPECIMENOrdering Facility: [facility] Address: [address] [place], [place] [address] Performed By: #### 5 7021-8 ####[facility] BECKYNCLIA [id number] [place] [address] [place] Nucleated RBC/100 WBC (Bld) [Ratio] 0.3 /100 WBC Normal [facility] Comment on above: Order Comment: Speci men Type: BLOOD SPECIMENOrdering Facility: [facility] Address: [address] [place] [address] Performed By: #### 5 7021-8 ####[facility] HOSPITALNCLIA [id number] [place] [address] [place] Platelet mean volume (Bld) [Entitic vol] 10.6 fL Normal 9.0-12.7 [facility] Comment on above: Order Comment: Speci men Type: BLOOD SPECIMENOrdering Facility: [facility] Address: [address] [place] [address] Performed By: #### 5 7021-8 ####[facility] HOSPITALNCLIA [id number] [place] [address] [place] Platelets (Bld) [#/Vol] 160 10*3/uL Normal 150-400 [facility] Comment on above: Order Comment: Speci men Type: BLOOD SPECIMENOrdering Facility: [facility] Address: [address] [place] [address] Performed By: #### 5 7021-8 ####[facility] HOSPITALNCLIA [id number] [place] [address] [place] RBC (Bld) [#/Vol] 2.46 10*6/uL Low 4.20-6.00 [facility] Comment on above: Order Comment: Speci men Type: BLOOD SPECIMENOrdering Facility: [facility] Address: [address] [place] [address] Performed By: #### 5 7021-8 ####[facility] CENTERLIA [id number] [place] [address] [place] WBC (Bld) [#/Vol] 6.44 10*3/uL Normal 3.70-11.00 [facility] Comment on above: Order Comment: Speci men Type: BLOOD SPECIMENOrdering Facility: [facility] Address: [address] [place] [address] Performed By: #### 5 7021-8 ####[facility] MILLTOWNCLIA [id number] [place] [address] [place] CNPNon 08-11-2025 CNPN Normal [facility] Comprehensive metabolic 2000 panelon 08-11-2025 Albumin [Mass/Vol] 4.2 g/dL Normal 3.9-4.9 [facility] Comment on above: Order Comment: Speci men Type: BLOOD SPECIMENOrdering Facility: [facility] Address: [address] [place] [address] Performed By: #### 1 9123-9, 53909-0 ####[facility] HOSPITALWNCLIA [id number] [place] [address] [place] ALP [Catalytic activity/Vol] 94 U/L Normal 38-113 [facility] Comment on above: Order Comment: Speci men Type: BLOOD SPECIMENOrdering Facility: [facility] Address: [address] [place], [place] [address] Performed By: #### 1 9123-9, 40080-1 ####[facility] MILLTOWNCLIA [id number] [place] [address] [place] ALT [Catalytic activity/Vol] 65 U/L High 10-54 [facility] Comment on above: Order Comment: Speci men Type: BLOOD SPECIMENOrdering Facility: [facility] Address: [address] [place] [address] Performed By: #### 1 9123-9, 67185-6 ####[facility] MILLTOWNCLIA [id number] [place] [address] [place] Anion gap [Moles/Vol] 11 mmol/L Normal 8-15 [facility] Comment on above: Order Comment: Speci men Type: BLOOD SPECIMENOrdering Facility: [facility] Address: [address] [place] [address] Performed By: #### 1 9123-9, 42153-3 ####[facility] MILLTOWNCLIA [id number] [place] [address] [place] AST [Catalytic activity/Vol] 41 U/L High 14-40 [facility] Comment on above: Order Comment: Speci men Type: BLOOD SPECIMENOrdering Facility: [facility] Address: [address] [place] [address] Performed By: #### 1 9123-9, 50697-0 ####[facility] MILLTOWROCKYLIA [id number] [place] [address] [place] Bilirubin [Mass/Vol] 0.7 mg/dL Normal 0.2-1.3 [facility] Comment on above: Order Comment: Speci men Type: BLOOD SPECIMENOrdering Facility: [facility] Address: [address] [place] [address] Performed By: #### 1 9123-9, 49559-2 ####[facility] MILLTOWNCLIA [id number] [place] [address] [place] Calcium [Mass/Vol] 9.7 mg/dL Normal 8.5-10.2 [facility] Comment on above: Order Comment: Speci men Type: BLOOD SPECIMENOrdering Facility: [facility] Address: [address] [place] [address] Performed By: #### 1 9123-9, 03523-0 ####[facility] MILLTOWNCLIA [id number] [place] [address] [place] Chloride [Moles/Vol] 99 mmol/L Normal 98-107 [facility] Comment on above: Order Comment: Speci men Type: BLOOD SPECIMENOrdering Facility: [facility] Address: [address] [place] [address] Performed By: #### 1 9123-9, 50566-4 ####[facility] [id number] [place] [address] [place] CO2 [Moles/Vol] 23 mmol/L Normal 22-30 [facility] Comment on above: Order Comment: Speci men Type: BLOOD SPECIMENOrdering Facility: [facility] Address: [address] [place] [address] Performed By: #### 1 9123-9, 90078-5 ####[facility] [id number] [place] [address] [place] Creatinine [Mass/Vol] 0.65 mg/dL Low 0.73-1.22 [facility] Comment on above: Order Comment: Speci men Type: BLOOD SPECIMENOrdering Facility: [facility] Address: [address] [place] [address] Performed By: #### 1 9123-9, 02108-0 ####[facility] CENTERLIA [id number] [place] [address] [place] eGFRcr SerPlBld CKD-EPI 2020 95 mL/min/1.73m??? Normal >=60 [facility] Comment on above: Order Comment: Speci men Type: BLOOD SPECIMENOrdering Facility: [facility] Address: [address] [place] [address] Result Comment: Lilly mated Glomerular Filtration Rate [...] actual GFR. Performed By: #### 1 9123-9, 23378-1 ####[facility] SHERRIGA [id number] [place] [address] [place] Glucose [Mass/Vol] 215 mg/dL High 74-99 [facility] Comment on above: Order Comment: Speci men Type: BLOOD SPECIMENOrdering Facility: [facility] Address: [address] [place] [address] Result Comment: The [place] [employer] (ADA) provides guidance for cutoff [...] Standards of Medical Care in Diabetes 2016, [place] [employer]. Diabetes Care. 2016.39(Suppl 1). Performed By: #### 1 9123-9, 16672-9 ####[facility] SHERRIHUDSONNCA [id number] [place] [address] [place] Potassium [Moles/Vol] 4.2 mmol/L Normal 3.7-5.1 [facility] Comment on above: Order Comment: Speci men Type: BLOOD SPECIMENOrdering Facility: [facility] Address: [address] [place] [address] Performed By: #### 1 9123-9, 79443-5 ####[facility]ENTERA [id number] [place] [address] [place] Protein [Mass/Vol] 6.4 g/dL Normal 6.3-8.0 [facility] Comment on above: Order Comment: Speci men Type: BLOOD SPECIMENOrdering Facility: [facility] Address: [address] [place] [address] Performed By: #### 1 9123-9, 61865-5 ####[facility] [id number] [place] [address] [place] Sodium [Moles/Vol] 133 mmol/L Low 136-144 [facility] Comment on above: Order Comment: Speci men Type: BLOOD SPECIMENOrdering Facility: [facility] Address: [address] [place] [address] Performed By: #### 1 9123-9, 20901-0 ####[facility] [id number] [place] [address] [place] Urea nitrogen [Mass/Vol] 15 mg/dL Normal 9-24 [facility] Comment on above: Order Comment: Speci men Type: BLOOD SPECIMENOrdering Facility: [facility] Address: [address] [place] [address] Performed By: #### 1 9123-9, 42052-4 ####[facility] [id number] [place] [address] [place] HbA1c (Bld)on 08-11-2025 Average glucose Estimated from glycated hemoglobin (Bld) [Mass/Vol] 169 mg/dL Normal [facility] Comment on above: Order Comment: Speci men Type: BLOOD SPECIMENOrdering Facility: [facility] Address: [address] [place] [address] Result Comment: eAG: (Estimated average glucose) is a calculated value from HgbA1c and is provider service representative of the average blood glucose level in the last 2-3 month period. Performed By: #### 5 5454-3 ####[facility] LABCLIA [id number] [place] [address] [place] HbA1c (Bld) [Mass fraction] 7.5 % High 4.3-5.6 [facility] Comment on above: Order Comment: Speci men Type: BLOOD SPECIMENOrdering Facility: [facility] Address: [address] [place] [address] Result Comment: [place] [employer] guidelines indicate that patients with HgbA1c in the range 5.7-6.4% are at increased risk for development of diabetes, and intervention by lifestyle modification may be beneficial. HgbA1c greater or equal to 6.5% is considered diagnostic of diabetes. Performed By: #### 5 5454-3 ####[facility] [id number] [address] [address] [place] LIPID PANEL, NONFASTINGon Cholesterol [Mass/Vol] 95 mg/dL Normal <200 [facility] Comment on above: Order Comment: Gilma ojeda Type: BLOOD SPECIMENOrdering Facility: [facility] Address: [address] [place] [address] Result Comment: <200 mg/dL, Desirable 200-239 mg/dL, Borderline high>239 mg/dL, High Performed By: #### L IPNF, 3016-3, 3023-7, 2132-07 ####[facility] LABCLIA [id number] [address] [place] [address] [place] HDL CHOLESTEROL, NF 39 mg/dL Low >39 [facility] Comment on above: Order Comment: Erwinvladimir ojeda Type: BLOOD SPECIMENOrdering Facility: [facility] Address: [address] [place] [address] Result Comment: 40-5 9 mg/dL, Acceptable>59 mg/dL, High: Negative risk factor for coronary heart disease<40 mg/dL, Low: Positive risk factor for coronary heart disease Performed By: #### L IPNF, 3016-3, 3023-7, 2132-07 ####[facility] LABCLIA [id number] [address] [place] [address] [place] LDL CHOLESTEROL CALCULATED, NF 44 mg/dL Normal <100 [facility] Comment on above: Order Comment: Erwini men Type: BLOOD SPECIMENOrdering Facility: [facility] Address: [address] [place] [address] Result Comment: <100 mg/dL, Optimal 100-129 mg/dL, Near optimal/above optimal 130-159 mg/dL, Borderline high 160-189 mg/dL, High>189 mg/dL, Very highSecondary prevention optimal LDL Cholesterol levels are recommended to be <70 mg/dLLDL cholesterol is calculated using the Matos-NIH equation. Performed By: #### L ZEFERINO, 3015-3, 3024-05, 2132-07 ####[facility] LABCLIA [id number] [place] [id number] [place] LDL/HDL RATIO, NF 1.13 mg/dL Normal <2.54 [facility] Comment on above: Order Comment: Speci men Type: BLOOD SPECIMENOrdering Facility: [facility] Address: [address] [place] [address] Result Comment: Refandrew timmonsce:1. National Cholesterol Education Program ATP III Guideline At-A-Glance Quick Desk Reference: National Heart, Lung, and Blood [place]. National Institutes of Health. 2001: NIH Publication No. 01-3305.2. An International Atherosclerosis Society position paper: global recommendations for the management of dyslipidemia: executive summary, Atherosclerosis. 2014: 232(2):410-413. Performed By: #### L ZEFERINO, 3015-3, 3024-05, 2132-07 ####[facility] LABCLIA [id number] [address] [place] NON HDL CHOL, NF 56 mg/dL Normal <130 [facility] Comment on above: Order Comment: Speci men Type: BLOOD SPECIMENOrdering Facility: [facility] Address: [address] [place] [address] Result Comment: <130 mg/dL, Optimal 130-159 mg/dL, Near optimal/above optimal 160-189 mg/dL, Borderline high 190-219 mg/dL, High>219 mg/dL, Very highSecondary prevention optimal non HDL Cholesterol levels are recommended to be <100 mg/dL Performed By: #### L ZEFERINO, 3016-3, 3024-05, 2132-07 ####[facility] LABCLIA [id number] [address] [address] [place] T CHOL/HDL RATIO NF 2.44 mg/dL Normal <5.10 [facility] Comment on above: Order Comment: Speci men Type: BLOOD SPECIMENOrdering Facility: [facility] Address: [address] [place] [address] Performed By: #### L IPNF, 6-3, 3024-05, 2132-07 ####[facility] LABCLIA [id number] [place] [id number] [place] TRIGLYCERIDES, NF 47 mg/dL Normal <150 [facility] Comment on above: Order Comment: Speci men Type: BLOOD SPECIMENOrdering Facility: [facility] Address: [address] [place] [address] Result Comment: <150 mg/dL, Normal 150-199 mg/dL, Borderline high 200-499 mg/dL, High>499 mg/dL, Very high Performed By: #### L IPNF, 6-3, 3024-05, 2132-07 ####[facility] LABCLIA [id number] [place] [address] [place] VLDL CHOLESTEROL, NF 7 mg/dL Normal <30 [facility] Comment on above: Order Comment: Speci men Type: BLOOD SPECIMENOrdering Facility: [facility] Address: [address] [place] [address] Performed By: #### L IPNF, 6-3, 3024-05, 2132-07 ####[facility] LABCLIA [id number] [place] [id number] [place] Magnesium SerPl-mCncon 08-11 Magnesium [Mass/Vol] 1.8 mg/dL Normal 1.7-2.3 [facility] Comment on above: Order Comment: Speci men Type: BLOOD SPECIMENOrdering Facility: [facility] Address: [address] [place], [place] [address] Performed By: #### 1 9123-9, 54682-9 ####[facility]ENTERA [id number] [place] [address] [place] T4 Free SerPl-mCncon 025 Free T4 [Mass/Vol] 1.0 ng/dL Normal 0.9-1.7 [facility] Comment on above: Order Comment: Speci men Type: BLOOD SPECIMENOrdering Facility: [facility] Address: [address] [place] [address] Performed By: #### L IPNF, 3016-3, 3024-7, 2132-07 ####[facility] LABCLIA [id number] [place] [id number] [place] TSH SerPl-aCncon 08-11-2025 TSH Qn 5.430 m[IU]/L High 0.270-4.200 [facility] Comment on above: Order Comment: Speci men Type: BLOOD SPECIMENOrdering Facility: [facility] Address: [address] [place] [address] Performed By: #### L IPNF, 3016-3, 3024-7, 2132-07 ####[facility] LABIA [id number] [place] [id number] [place] Type AND Screenon 08-11-2025 Ab SCREEN GEL Negative Normal [facility] Comment on above: Order Comment: PRETR ANSFUSION HGB = 7.5 HCT = PERFORMED AT CCFWN1 0830NYA Performed By: #### B RC, BTS #### [facility] [address] [facility] [place], [address] Vit B12 SerPl-mCncon 025 Cobalamin (Vitamin B12) [Mass/Vol] 591 pg/mL Normal 232-1245 [facility] Comment on above: Order Comment: Speci men Type: BLOOD SPECIMENOrdering Facility: [facility] Address: [address] [place] [address] Performed By: #### L IPNF, 3016-3, 3024-7, 2132-9 ####[facility] LABCLIA [id number] [place] [address] [place] BRCon 07-28-2025 RC Normal [facility] Comment on above: Result Comment: [id number] BP RC TRANSFUSED 07/29/25 1056 [id number] BP RC TRANSFUSED 07/29/25 0839 Performed By: #### B [facility] #### [facility] [address] [place], [place], [address] Bacteria Ur Culton 5 Bacteria identified Cx Nom (U) CULTURE, URINE: No growth (<1,000 CFU/ml) Normal [facility] Comment on above: Performed By: #### 6 30-4 ####[facility] LABCLIA [id number] [place] [id number] [place] CBC W Auto Differential pane l (Bld)on 07-28-2025 Basophils (Bld) [#/Vol] 10*3/uL Normal <0.11 [facility] Comment on above: Order Comment: Speci men Type: BLOOD SPECIMENOrdering Facility: [facility] Address: [address] [place] [address] Performed By: #### 5 7021-8 ####[facility] [id number] [place] [address] [place] Basophils/100 WBC (Bld) 0.5 % Normal [facility] Comment on above: Order Comment: Speci men Type: BLOOD SPECIMENOrdering Facility: [facility] Address: [address] [place] [address] Performed By: #### 5 7021-8 ####[facility] CENTERLIA [id number] [place] [address] [place] Differential cell count method Nom (Bld) Auto Normal [facility] Comment on above: Order Comment: Speci men Type: BLOOD SPECIMENOrdering Facility: [facility] Address: [address] [place] [address] Performed By: #### 5 7021-8 ####[facility] [id number] [place] [address] [place] Eosinophils (Bld) [#/Vol] 0.06 10*3/uL Normal <0.46 [facility] Comment on above: Order Comment: Speci men Type: BLOOD SPECIMENOrdering Facility: [facility] Address: [address] [place] [address] Performed By: #### 5 7021-8 ####[facility] [id number] [place] [address] [place] Eosinophils/100 WBC (Bld) 1.4 % Normal [facility] Comment on above: Order Comment: Speci men Type: BLOOD SPECIMENOrdering Facility: [facility] Address: [address] [place] [address] Performed By: #### 5 7021-8 ####[facility] [id number] [place] [address] [place] Erythrocyte distribution width (RBC) [Ratio] 18.2 % High 11.5-15.0 [facility] Comment on above: Order Comment: Speci men Type: BLOOD SPECIMENOrdering Facility: [facility] Address: [address] [place] [address] Performed By: #### 5 7021-8 ####[facility] [id number] [place] [address] [place] Hematocrit (Bld) [Volume fraction] 22.4 % Low 39.0-51.0 [facility] Comment on above: Order Comment: Speci men Type: BLOOD SPECIMENOrdering Facility: [facility] Address: [address] [place] [address] Performed By: #### 5 7021-8 ####[facility] SHERRIVidhyaNCSAURABH [id number] [place] [address] [place] Hemoglobin (Bld) [Mass/Vol] 7.6 g/dL Low 13.0-17.0 [facility] Comment on above: Order Comment: Speci men Type: BLOOD SPECIMENOrdering Facility: [facility] Address: [address] [place] [address] Performed By: #### 5 7021-8 ####[facility] HOSPITALNCDarrick [id number] [place] [address] [place] Immature granulocytes (Bld) [#/Vol] 0.03 10*3/uL Normal <0.10 [facility] Comment on above: Order Comment: Speci men Type: BLOOD SPECIMENOrdering Facility: [facility] Address: [address] [place] [address] Performed By: #### 5 7021-8 ####[facility] HOSPITALNCLIA [id number] [place] [address] [place] Immature granulocytes/100 WBC (Bld) 0.7 % Normal [facility] Comment on above: Order Comment: Speci men Type: BLOOD SPECIMENOrdering Facility: [facility] Address: [address] [place], [place] [address] Performed By: #### 5 7021-8 ####[facility] HOSPITALNCLIA [id number] [place] [address] [place] Lymphocytes (Bld) [#/Vol] 0.68 10*3/uL Low 1.00-4.00 [facility] Comment on above: Order Comment: Speci men Type: BLOOD SPECIMENOrdering Facility: [facility] Address: [address] [place] [address] Performed By: #### 5 7021-8 ####[facility] HOSPITALROCKYLIA [id number] [place] [address] [place] Lymphocytes/100 WBC (Bld) 15.7 % Normal [facility] Comment on above: Order Comment: Speci men Type: BLOOD SPECIMENOrdering Facility: [facility] Address: [address] [place] [address] Performed By: #### 5 7021-8 ####[facility] CENTERLESLY [id number] [place] [address] [place] MCH (RBC) [Entitic mass] 29.7 pg Normal 26.0-34.0 [facility] Comment on above: Order Comment: Speci men Type: BLOOD SPECIMENOrdering Facility: [facility] Address: [address] [place] [address] Performed By: #### 5 7021-8 ####[facility] [id number] [place] [address] [place] MCHC (RBC) [Mass/Vol] 33.9 g/dL Normal 30.5-36.0 [facility] Comment on above: Order Comment: Speci men Type: BLOOD SPECIMENOrdering Facility: [facility] Address: [address] [place] [address] Performed By: #### 5 7021-8 ####[facility] CENTERLIA [id number] [place] [address] [place] MCV (RBC) [Entitic vol] 87.5 fL Normal 80.0-100.0 C [facility] Comment on above: Order Comment: Speci men Type: BLOOD SPECIMENOrdering Facility: [facility] Address: [address] [place] [address] Performed By: #### 5 7021-8 ####[facility] [id number] [place] [address] [place] Monocytes (Bld) [#/Vol] 0.25 10*3/uL Normal <0.87 [facility] Comment on above: Order Comment: Speci men Type: BLOOD SPECIMENOrdering Facility: [facility] Address: [address] [place] [address] Performed By: #### 5 7021-8 ####[facility] HOSPITALWMDLIA [id number] [place] [address] [place] Monocytes/100 WBC (Bld) 5.8 % Normal [facility] Comment on above: Order Comment: Speci men Type: BLOOD SPECIMENOrdering Facility: [facility] Address: [address] [place] [address] Performed By: #### 5 7021-8 ####[facility] HOSPITALNCLIA [id number] [place] [address] [place] Neutrophils (Bld) [#/Vol] 3.28 10*3/uL Normal 1.45-7.50 [facility] Comment on above: Order Comment: Speci men Type: BLOOD SPECIMENOrdering Facility: [facility] Address: [address] [place] [address] Performed By: #### 5 7021-8 ####[facility] CENTERLIA [id number] [place] [address] [place] Neutrophils/100 WBC (Bld) 75.9 % Normal [facility] Comment on above: Order Comment: Speci men Type: BLOOD SPECIMENOrdering Facility: [facility] Address: [address] [place] [address] Performed By: #### 5 7021-8 ####[facility] HOSPITALNCLIA [id number] [place] [address] [place] Nucleated RBC (Bld) [#/Vol] 10*3/uL Normal <0.01 [facility] Comment on above: Order Comment: Speci men Type: BLOOD SPECIMENOrdering Facility: [facility] Address: [address] [place] [address] Performed By: #### 5 7021-8 ####[facility] BECKYNCSAURABH [id number] [place] [address] [place] Nucleated RBC/100 WBC (Bld) [Ratio] 0.0 /100 WBC Normal [facility] Comment on above: Order Comment: Speci men Type: BLOOD SPECIMENOrdering Facility: [facility] Address: [address] [place] [address] Performed By: #### 5 7021-8 ####[facility] SHERRIHUDSONNCSAURABH [id number] [place] [address] [place] Platelet mean volume (Bld) [Entitic vol] 11.2 fL Normal 9.0-12.7 [facility] Comment on above: Order Comment: Speci men Type: BLOOD SPECIMENOrdering Facility: [facility] Address: [address] [place] [address] Performed By: #### 5 7021-8 ####[facility] HOSPITALNCLESLYA [id number] [place] [address] [place] Platelets (Bld) [#/Vol] 173 10*3/uL Normal 150-400 [facility] Comment on above: Order Comment: Speci men Type: BLOOD SPECIMENOrdering Facility: [facility] Address: [address] [place] [address] Performed By: #### 5 7021-8 ####[facility]OSPITALNCLIA [id number] [place] [address] [place] RBC (Bld) [#/Vol] 2.56 10*6/uL Low 4.20-6.00 [facility] Comment on above: Order Comment: Speci men Type: BLOOD SPECIMENOrdering Facility: [facility] Address: [address] [place], [place] [address] Performed By: #### 5 7021-8 ####[facility] CENTERRUSLAN POLANCOHUDSONNCLIA [id number] [place] [address] [place] WBC (Bld) [#/Vol] 4.32 10*3/uL Normal 3.70-11.00 [facility] Comment on above: Order Comment: Speci men Type: BLOOD SPECIMENOrdering Facility: [facility] Address: [address] [place] [address] Performed By: #### 5 7021-8 ####[facility] HOSPITALNCLIA [id number] [place] [address] [place] CNOVon 07-28-2025 CNOV Normal [facility] CNPNon 07-28-2025 CNPN Normal [facility] Type AND Screenon 07-28-2025 ABO and Rh group Nom (Bld) Blood group B Rh(D) positive [facility] Comment on above: Order Comment: N 01/28/2025 @0800 N Y A Performed By: #### Benito MENDES [facility] #### [facility] [address] [place], [place], [address] Ab SCREEN GEL Negative Normal [facility] Comment on above: Order Comment: N 01/28/2025 @0800 N Y A Performed By: #### Benito MENDES [facility] #### [facility] [address] [place], [place], [address] XR ABDOMEN 1V SUPINEon 07-28 XR ABDOMEN 1V SUPINE Normal [facility] BRCon 07-14-2025 RC Normal [facility] Comment on above: Result Comment: [id number] OP RC TRANSFUSED 07/15/25 0901 [id number] BP RC TRANSFUSED 07/15/25 1100 Performed By: #### Benito MENDES #### [facility] [address] [place], [address] CBC W Auto Differential pane l (Bld)on 07-14-2025 Basophils (Bld) [#/Vol] 10*3/uL Normal <0.11 C [facility] Comment on above: Order Comment: Speci men Type: BLOOD SPECIMENOrdering Facility: [facility] Address: [address] [place] [address] Performed By: #### 5 7021-8 ####[facility] CENTERLIA [id number] [place] [address] [place] Basophils/100 WBC (Bld) 0.2 % Normal C [facility] Comment on above: Order Comment: Speci men Type: BLOOD SPECIMENOrdering Facility: [facility] Address: [address] [place] [address] Performed By: #### 5 7021-8 ####[facility] [id number] [place] [address] [place] Differential cell count method Nom (Bld) Auto Normal [facility] Comment on above: Order Comment: Speci men Type: BLOOD SPECIMENOrdering Facility: [facility] Address: [address] [place] [address] Performed By: #### 5 7021-8 ####[facility] [id number] [place] [address] [place] Eosinophils (Bld) [#/Vol] 0.06 10*3/uL Normal <0.46 [facility] Comment on above: Order Comment: Speci men Type: BLOOD SPECIMENOrdering Facility: [facility] Address: [address] [place] [address] Performed By: #### 5 7021-8 ####[facility] CENTERA [id number] [place] [address] [place] Eosinophils/100 WBC (Bld) 1.3 % Normal [facility] Comment on above: Order Comment: Speci men Type: BLOOD SPECIMENOrdering Facility: [facility] Address: [address] [place] [address] Performed By: #### 5 7021-8 ####[facility] SHERRILIANNE [id number] [place] [address] [place] Erythrocyte distribution width (RBC) [Ratio] 16.6 % High 11.5-15.0 [facility] Comment on above: Order Comment: Speci men Type: BLOOD SPECIMENOrdering Facility: [facility] Address: [address] [place] [address] Performed By: #### 5 7021-8 ####[facility] HOSPITALNCSAURABH [id number] [place] [address] [place] Hematocrit (Bld) [Volume fraction] 21.8 % Low 39.0-51.0 [facility] Comment on above: Order Comment: Speci men Type: BLOOD SPECIMENOrdering Facility: [facility] Address: [address] [place] [address] Performed By: #### 5 7021-8 ####[facility] CENTERLESLYA [id number] [place] [address] [place] Hemoglobin (Bld) [Mass/Vol] 7.4 g/dL Low 13.0-17.0 [facility] Comment on above: Order Comment: Speci men Type: BLOOD SPECIMENOrdering Facility: [facility] Address: [address] [place] [address] Performed By: #### 5 7021-8 ####[facility] CENTERLI [id number] [place] [address] [place] Immature granulocytes (Bld) [#/Vol] 0.04 10*3/uL Normal <0.10 [facility] Comment on above: Order Comment: Speci men Type: BLOOD SPECIMENOrdering Facility: [facility] Address: [address] [place] [address] Performed By: #### 5 7021-8 ####[facility] CENTERLESLY [id number] [place] [address] [place] Immature granulocytes/100 WBC (Bld) 0.9 % Normal [facility] Comment on above: Order Comment: Speci men Type: BLOOD SPECIMENOrdering Facility: [facility] Address: [address] [place] [address] Performed By: #### 5 7021-8 ####[facility] [id number] [place] [address] [place] Lymphocytes (Bld) [#/Vol] 0.60 10*3/uL Low 1.00-4.00 [facility] Comment on above: Order Comment: Speci men Type: BLOOD SPECIMENOrdering Facility: [facility] Address: [address] [place] [address] Performed By: #### 5 7021-8 ####[facility] [id number] [place] [address] [place] Lymphocytes/100 WBC (Bld) 13.3 % Normal [facility] Comment on above: Order Comment: Speci men Type: BLOOD SPECIMENOrdering Facility: [facility] Address: [address] [place] [address] Performed By: #### 5 7021-8 ####[facility] [id number] [place] [address] [place] MCH (RBC) [Entitic mass] 30.3 pg Normal 26.0-34.0 [facility] Comment on above: Order Comment: Speci men Type: BLOOD SPECIMENOrdering Facility: [facility] Address: [address] [place] [address] Performed By: #### 5 7021-8 ####[facility] [id number] [place] [address] [place] MCHC (RBC) [Mass/Vol] 33.9 g/dL Normal 30.5-36.0 [facility] Comment on above: Order Comment: Speci men Type: BLOOD SPECIMENOrdering Facility: [facility] Address: [address] [place] [address] Performed By: #### 5 7021-8 ####[facility] [id number] [place] [address] [place] MCV (RBC) [Entitic vol] 89.3 fL Normal 80.0-100.0 C [facility] Comment on above: Order Comment: Speci men Type: BLOOD SPECIMENOrdering Facility: [facility] Address: [address] [place] [address] Performed By: #### 5 7021-8 ####[facility] [id number] [place] [address] [place] Monocytes (Bld) [#/Vol] 0.25 10*3/uL Normal <0.87 [facility] Comment on above: Order Comment: Speci men Type: BLOOD SPECIMENOrdering Facility: [facility] Address: [address] [place] [address] Performed By: #### 5 7021-8 ####[facility] [id number] [place] [address] [place] Monocytes/100 WBC (Bld) 5.5 % Normal C [facility] Comment on above: Order Comment: Speci men Type: BLOOD SPECIMENOrdering Facility: [facility] Address: [address] [place] [address] Performed By: #### 5 7021-8 ####[facility] [id number] [place] [address] [place] Neutrophils (Bld) [#/Vol] 3.55 10*3/uL Normal 1.45-7.50 [facility] Comment on above: Order Comment: Speci men Type: BLOOD SPECIMENOrdering Facility: [facility] Address: [address] [place] [address] Performed By: #### 5 7021-8 ####[facility] SHERRIHUDSONLUISITO [id number] [place] [address] [place] Neutrophils/100 WBC (Bld) 78.8 % Normal [facility] Comment on above: Order Comment: Speci men Type: BLOOD SPECIMENOrdering Facility: [facility] Address: [address] [place] [address] Performed By: #### 5 7021-8 ####[facility] [id number] [place] [address] [place] Nucleated RBC (Bld) [#/Vol] 10*3/uL Normal <0.01 [facility] Comment on above: Order Comment: Speci men Type: BLOOD SPECIMENOrdering Facility: [facility] Address: [address] [place] [address] Performed By: #### 5 7021-8 ####[facility] [id number] [place] [address] [place] Nucleated RBC/100 WBC (Bld) [Ratio] 0.0 /100 WBC Normal [facility] Comment on above: Order Comment: Speci men Type: BLOOD SPECIMENOrdering Facility: [facility] Address: [address] [place] [address] Performed By: #### 5 7021-8 ####[facility] CENTERLIA [id number] [place] [address] [place] Platelet mean volume (Bld) [Entitic vol] 10.3 fL Normal 9.0-12.7 [facility] Comment on above: Order Comment: Speci men Type: BLOOD SPECIMENOrdering Facility: [facility] Address: [address] [place] [address] Performed By: #### 5 7021-8 ####[facility]PITALNCLIA [id number] [place] [address] [place] Platelets (Bld) [#/Vol] 147 10*3/uL Low 150-400 [facility] Comment on above: Order Comment: Speci men Type: BLOOD SPECIMENOrdering Facility: [facility] Address: [address] [place] [address] Performed By: #### 5 7021-8 ####[facility] [id number] [place] [address] [place] RBC (Bld) [#/Vol] 2.44 10*6/uL Low 4.20-6.00 [facility] Comment on above: Order Comment: Speci men Type: BLOOD SPECIMENOrdering Facility: [facility] Address: [address] [place] [address] Performed By: #### 5 7021-8 ####[facility] [id number] [place] [address] [place] WBC (Bld) [#/Vol] 4.51 10*3/uL Normal 3.70-11.00 [facility] Comment on above: Order Comment: Speci men Type: BLOOD SPECIMENOrdering Facility: [facility] Address: [address] [place] [address] Performed By: #### 5 7021-8 ####[facility] [id number] [place] [address] [place] CNPNon 07-14-2025 CNPN Normal [facility] Type AND Screenon 07-14-2025 Ab SCREEN GEL Negative Normal [facility] Comment on above: Order Comment: A Performed By: #### B TS #### [facility] [address] [facility] [place], [place], [facility] BRCon 06-30-2025 RC Normal [facility] Comment on above: Result Comment: [id number] OP RC TRANSFUSED 07/01/25 1130 [id number] OP RC TRANSFUSED 07/01/25 0925 Performed By: #### B TS #### [facility] [address] [place], [place], [id number] CBC W Auto Differential pane l (Bld)on 06-30-2025 Basophils (Bld) [#/Vol] 10*3/uL Normal <0.11 C [facility] Comment on above: Order Comment: Speci men Type: BLOOD SPECIMENOrdering Facility: [facility] Address: [address] [place] [address] Performed By: #### 5 7021-8 ####[facility] [id number] [place] [address] [place] Basophils/100 WBC (Bld) 0.3 % Normal C [facility] Comment on above: Order Comment: Speci men Type: BLOOD SPECIMENOrdering Facility: [facility] Address: [address] [place] [address] Performed By: #### 5 7021-8 ####[facility] [id number] [place] [address] [place] Differential cell count method Nom (Bld) Auto Normal [facility] Comment on above: Order Comment: Speci men Type: BLOOD SPECIMENOrdering Facility: [facility] Address: [address] [place] [address] Performed By: #### 5 7021-8 ####[facility] [id number] [place] [address] [place] Eosinophils (Bld) [#/Vol] 0.05 10*3/uL Normal <0.46 [facility] Comment on above: Order Comment: Speci men Type: BLOOD SPECIMENOrdering Facility: [facility] Address: [address] [place] [address] Performed By: #### 5 7021-8 ####[facility] SHERRIJEFEA [id number] [place] [address] [place] Eosinophils/100 WBC (Bld) 1.3 % Normal [facility] Comment on above: Order Comment: Speci men Type: BLOOD SPECIMENOrdering Facility: [facility] Address: [address] [place] [address] Performed By: #### 5 7021-8 ####[facility] HOSPITALLUISITO [id number] [place] [address] [place] Erythrocyte distribution width (RBC) [Ratio] 16.5 % High 11.5-15.0 [facility] Comment on above: Order Comment: Speci men Type: BLOOD SPECIMENOrdering Facility: [facility] Address: [address] [place] [address] Performed By: #### 5 7021-8 ####[facility] HOSPITALROCKYDarrick [id number] [place] [address] [place] Hematocrit (Bld) [Volume fraction] 22.8 % Low 39.0-51.0 [facility] Comment on above: Order Comment: Speci men Type: BLOOD SPECIMENOrdering Facility: [facility] Address: [address] [place] [address] Performed By: #### 5 7021-8 ####[facility] HOSPITALROCKYLIA [id number] [place] [address] [place] Hemoglobin (Bld) [Mass/Vol] 7.6 g/dL Low 13.0-17.0 [facility] Comment on above: Order Comment: Speci men Type: BLOOD SPECIMENOrdering Facility: [facility] Address: [address] [place] [address] Performed By: #### 5 7021-8 ####[facility] HOSPITALNCLIA [id number] [place] [address] [place] Immature granulocytes (Bld) [#/Vol] 10*3/uL Normal <0.10 [facility] Comment on above: Order Comment: Speci men Type: BLOOD SPECIMENOrdering Facility: [facility] Address: [address] [place] [address] Performed By: #### 5 7021-8 ####[facility] CENTERA [id number] [place] [address] [place] Immature granulocytes/100 WBC (Bld) 0.5 % Normal [facility] Comment on above: Order Comment: Speci men Type: BLOOD SPECIMENOrdering Facility: [facility] Address: [address] [place] [address] Performed By: #### 5 7021-8 ####[facility] [id number] [place] [address] [place] Lymphocytes (Bld) [#/Vol] 0.79 10*3/uL Low 1.00-4.00 [facility] Comment on above: Order Comment: Speci men Type: BLOOD SPECIMENOrdering Facility: [facility] Address: [address] [place] [address] Performed By: #### 5 7021-8 ####[facility] [id number] [place] [address] [place] Lymphocytes/100 WBC (Bld) 19.8 % Normal [facility] Comment on above: Order Comment: Speci men Type: BLOOD SPECIMENOrdering Facility: [facility] Address: [address] [place] [address] Performed By: #### 5 7021-8 ####[facility] [id number] [place] [address] [place] MCH (RBC) [Entitic mass] 29.8 pg Normal 26.0-34.0 [facility] Comment on above: Order Comment: Speci men Type: BLOOD SPECIMENOrdering Facility: [facility] Address: [address] [place] [address] Performed By: #### 5 7021-8 ####[facility] SHERRIHUDSONLUISITO [id number] [place] [address] [place] MCHC (RBC) [Mass/Vol] 33.3 g/dL Normal 30.5-36.0 [facility] Comment on above: Order Comment: Speci men Type: BLOOD SPECIMENOrdering Facility: [facility] Address: [address] [place] [address] Performed By: #### 5 7021-8 ####[facility] [id number] [place] [address] [place] MCV (RBC) [Entitic vol] 89.4 fL Normal 80.0-100.0 C [facility] Comment on above: Order Comment: Speci men Type: BLOOD SPECIMENOrdering Facility: [facility] Address: [address] [place] [address] Performed By: #### 5 7021-8 ####[facility] [id number] [place] [address] [place] Monocytes (Bld) [#/Vol] 0.22 10*3/uL Normal <0.87 [facility] Comment on above: Order Comment: Speci men Type: BLOOD SPECIMENOrdering Facility: [facility] Address: [address] [place] [address] Performed By: #### 5 7021-8 ####[facility] [id number] [place] [address] [place] Monocytes/100 WBC (Bld) 5.5 % Normal C [facility] Comment on above: Order Comment: Speci men Type: BLOOD SPECIMENOrdering Facility: [facility] Address: [address] [place] [address] Performed By: #### 5 7021-8 ####[facility] HOSPITALMDLIA [id number] [place] [address] [place] Neutrophils (Bld) [#/Vol] 2.90 10*3/uL Normal 1.45-7.50 [facility] Comment on above: Order Comment: Speci men Type: BLOOD SPECIMENOrdering Facility: [facility] Address: [address] [place] [address] Performed By: #### 5 7021-8 ####[facility] [id number] [place] [address] [place] Neutrophils/100 WBC (Bld) 72.6 % Normal [facility] Comment on above: Order Comment: Speci men Type: BLOOD SPECIMENOrdering Facility: [facility] Address: [address] [place] [address] Performed By: #### 5 7021-8 ####[facility] [id number] [place] [address] [place] Nucleated RBC (Bld) [#/Vol] 10*3/uL Normal <0.01 [facility] Comment on above: Order Comment: Speci men Type: BLOOD SPECIMENOrdering Facility: [facility] Address: [address] [place] [address] Performed By: #### 5 7021-8 ####[facility] [id number] [place] [address] [place] Nucleated RBC/100 WBC (Bld) [Ratio] 0.0 /100 WBC Normal [facility] Comment on above: Order Comment: Speci men Type: BLOOD SPECIMENOrdering Facility: [facility] Address: [address] [place] [address] Performed By: #### 5 7021-8 ####[facility] HOSPITALNCLIA [id number] [place] [address] [place] Platelet mean volume (Bld) [Entitic vol] 10.7 fL Normal 9.0-12.7 [facility] Comment on above: Order Comment: Speci men Type: BLOOD SPECIMENOrdering Facility: [facility] Address: [address] [place] [address] Performed By: #### 5 7021-8 ####[facility]ITAL[facility] [id number] [place] [address] [place] Platelets (Bld) [#/Vol] 157 10*3/uL Normal 150-400 [facility] Comment on above: Order Comment: Speci men Type: BLOOD SPECIMENOrdering Facility: [facility] Address: [address] [place] [address] Performed By: #### 5 7021-8 ####[facility] [id number] [place] [address] [place] RBC (Bld) [#/Vol] 2.55 10*6/uL Low 4.20-6.00 [facility] Comment on above: Order Comment: Speci men Type: BLOOD SPECIMENOrdering Facility: [facility] Address: [address] [place] [address] Performed By: #### 5 7021-8 ####[facility]ENTERA [id number] [place] [address] [place] WBC (Bld) [#/Vol] 3.99 10*3/uL Normal 3.70-11.00 [facility] Comment on above: Order Comment: Speci men Type: BLOOD SPECIMENOrdering Facility: [facility] Address: [address] [place] [address] Performed By: #### 5 7021-8 ####[facility] HOSPITALNCLIA [id number] [place] [address] [place] CNOVSPon 06-30-2025 CNOVSP Normal [facility] CNPNon 08-21-2025 CNPN Normal [facility] Type AND Screenon 06-30-2025 Ab SCREEN GEL PENDING Normal [facility] Comment on above: Order Comment: A Performed By: #### B TS #### [facility] [address] [place], [place], [address] ABO and Rh group Nom (Bld) Blood group B Rh(D) positive Normal [facility] Comment on above: Order Comment: A Performed By: #### B TS #### [facility] [address] [place], [place], [address] BRCon 06-16-2025 RC Normal [facility] Comment on above: Result Comment: [id number] ON RC TRANSFUSED 06/17/25 0826 [id number] BN RC TRANSFUSED 06/17/25 1013 Performed By: #### B TS, BR #### [facility] [address] [place], [place], [address] CBC W Auto Differential pane l (Bld)on 06-16-2025 Basophils (Bld) [#/Vol] 10*3/uL Normal <0.11 [facility] Comment on above: Order Comment: Speci men Type: BLOOD SPECIMENOrdering Facility: [facility] Address: [address] [place] [address] Performed By: #### 5 7021-8 ####[facility] COMM[facility] HOSPITALELLIEA [id number] [place] [address] [place] Basophils/100 WBC (Bld) 0.6 % Normal [facility] Comment on above: Order Comment: Speci men Type: BLOOD SPECIMENOrdering Facility: [facility] Address: [address] [place] [address] Performed By: #### 5 7021-8 ####[facility] CENTERLIA [id number] [place] [address] [place] Differential cell count method Nom (Bld) Auto Normal [facility] Comment on above: Order Comment: Speci men Type: BLOOD SPECIMENOrdering Facility: [facility] Address: [address] [place] [address] Performed By: #### 5 7021-8 ####[facility] SHERRILIANNE [id number] [place] [address] [place] Eosinophils (Bld) [#/Vol] 0.04 10*3/uL Normal <0.46 [facility] Comment on above: Order Comment: Speci men Type: BLOOD SPECIMENOrdering Facility: [facility] Address: [address] [place] [address] Performed By: #### 5 7021-8 ####[facility] HOSPITALROCKYOREM COMMUN[facility]PITAL [id number] [place] [address] [place] Eosinophils/100 WBC (Bld) 1.3 % Normal [facility] Comment on above: Order Comment: Speci men Type: BLOOD SPECIMENOrdering Facility: [facility] Address: [address] [place] [address] Performed By: #### 5 7021-8 ####[facility] HOSPITALNCDarrick [id number] [place] [address] [place] Erythrocyte distribution width (RBC) [Ratio] 16.1 % High 11.5-15.0 [facility] Comment on above: Order Comment: Speci men Type: BLOOD SPECIMENOrdering Facility: [facility] Address: [address] [place] [address] Performed By: #### 5 7021-8 ####[facility] HOSPITALNCLIA [id number] [place] [address] [place] Hematocrit (Bld) [Volume fraction] 23.9 % Low 39.0-51.0 [facility] Comment on above: Order Comment: Speci men Type: BLOOD SPECIMENOrdering Facility: [facility] Address: [address] [place] [address] Performed By: #### 5 7021-8 ####[facility] SHERRIJENNILIA [id number] [place] [address] [place] Hemoglobin (Bld) [Mass/Vol] 8.0 g/dL Low 13.0-17.0 [facility] Comment on above: Order Comment: Speci men Type: BLOOD SPECIMENOrdering Facility: [facility] Address: [address] [place] [address] Performed By: #### 5 7021-8 ####[facility] HOSPITALROCKYLIA [id number] [place] [address] [place] Immature granulocytes (Bld) [#/Vol] 10*3/uL Normal <0.10 [facility] Comment on above: Order Comment: Speci men Type: BLOOD SPECIMENOrdering Facility: [facility] Address: [address] [place] [address] Performed By: #### 5 7021-8 ####[facility]ENTERA [id number] [place] [address] [place] Immature granulocytes/100 WBC (Bld) 0.3 % Normal [facility] Comment on above: Order Comment: Speci men Type: BLOOD SPECIMENOrdering Facility: [facility] Address: [address] [place] [address] Performed By: #### 5 7021-8 ####[facility] COMM[facility] HOSPITALELLIEA [id number] [place] [address] [place] Lymphocytes (Bld) [#/Vol] 0.70 10*3/uL Low 1.00-4.00 [facility] Comment on above: Order Comment: Speci men Type: BLOOD SPECIMENOrdering Facility: [facility] Address: [address] [place] [address] Performed By: #### 5 7021-8 ####[facility]ITAL[facility] [id number] [place] [id number] [place] Lymphocytes/100 WBC (Bld) 22.4 % Normal [facility] Comment on above: Order Comment: Speci men Type: BLOOD SPECIMENOrdering Facility: [facility] Address: [address] [place] [address] Performed By: #### 5 7021-8 ####[facility]ITAL[facility] [id number] [place] [address] [place] MCH (RBC) [Entitic mass] 30.2 pg Normal 26.0-34.0 [facility] Comment on above: Order Comment: Speci men Type: BLOOD SPECIMENOrdering Facility: [facility] Address: [address] [place] [address] Performed By: #### 5 7021-8 ####[facility] [id number] [place] [address] [place] MCHC (RBC) [Mass/Vol] 33.5 g/dL Normal 30.5-36.0 [facility] Comment on above: Order Comment: Speci men Type: BLOOD SPECIMENOrdering Facility: [facility] Address: [address] [place] [address] Performed By: #### 5 7021-8 ####[facility] HOSPITALNCLIA [id number] [place] [address] [place] MCV (RBC) [Entitic vol] 90.2 fL Normal 80.0-100.0 C [facility] Comment on above: Order Comment: Speci men Type: BLOOD SPECIMENOrdering Facility: [facility] Address: [address] [place] [address] Performed By: #### 5 7021-8 ####[facility] HOSPITALNCLI [id number] [place] [address] [place] Monocytes (Bld) [#/Vol] 0.17 10*3/uL Normal <0.87 [facility] Comment on above: Order Comment: Speci men Type: BLOOD SPECIMENOrdering Facility: [facility] Address: [address] [place] [address] Performed By: #### 5 7021-8 ####[facility] HOSPITALNCLESLYA [id number] [place] [address] [place] Monocytes/100 WBC (Bld) 5.4 % Normal [facility] Comment on above: Order Comment: Speci men Type: BLOOD SPECIMENOrdering Facility: [facility] Address: [address] [place] [address] Performed By: #### 5 7021-8 ####[facility] HOSPITALNCA [id number] [place] [address] [place] Neutrophils (Bld) [#/Vol] 2.19 10*3/uL Normal 1.45-7.50 [facility] Comment on above: Order Comment: Speci men Type: BLOOD SPECIMENOrdering Facility: [facility] Address: [address] [place] [address] Performed By: #### 5 7021-8 ####[facility]A [id number] [place] [address] [place] Neutrophils/100 WBC (Bld) 70.0 % Normal [facility] Comment on above: Order Comment: Speci men Type: BLOOD SPECIMENOrdering Facility: [facility] Address: [address] [place] [address] Performed By: #### 5 7021-8 ####[facility] CENTERLIA [id number] [place] [address] [place] Nucleated RBC (Bld) [#/Vol] 10*3/uL Normal <0.01 [facility] Comment on above: Order Comment: Speci men Type: BLOOD SPECIMENOrdering Facility: [facility] Address: [address] [place] [address] Performed By: #### 5 7021-8 ####[facility] SHERRIJENNILIA [id number] [place] [address] [place] Nucleated RBC/100 WBC (Bld) [Ratio] 0.0 /100 WBC Normal [facility] Comment on above: Order Comment: Speci men Type: BLOOD SPECIMENOrdering Facility: [facility] Address: [address] [place] [address] Performed By: #### 5 7021-8 ####[facility] HOSPITALELLIEA [id number] [place] [address] [place] Platelet mean volume (Bld) [Entitic vol] 9.9 fL Normal 9.0-12.7 [facility] Comment on above: Order Comment: Speci men Type: BLOOD SPECIMENOrdering Facility: [facility] Address: [address] [place] [address] Performed By: #### 5 7021-8 ####[facility]A [id number] [place] [address] [place] Platelets (Bld) [#/Vol] 162 10*3/uL Normal 150-400 [facility] Comment on above: Order Comment: Speci men Type: BLOOD SPECIMENOrdering Facility: [facility] Address: [address] [place] [address] Performed By: #### 5 7021-8 ####[facility] CENTERLIA [id number] [place] [address] [place] RBC (Bld) [#/Vol] 2.65 10*6/uL Low 4.20-6.00 [facility] Comment on above: Order Comment: Speci men Type: BLOOD SPECIMENOrdering Facility: [facility] Address: [address] [place] [address] Performed By: #### 5 7021-8 ####[facility] HOSPITALNCLIA [id number] [place] [address] [place] WBC (Bld) [#/Vol] 3.13 10*3/uL Low 3.70-11.00 [facility] Comment on above: Order Comment: Speci men Type: BLOOD SPECIMENOrdering Facility: [facility] Address: [address] [place] [address] Performed By: #### 5 7021-8 ####[facility] [id number] [place] [address] [place] CNPNon 06-16-2025 CNPN Normal [facility] Type AND Screenon 06-16-2025 Ab SCREEN GEL Negative Normal [facility] Comment on above: Order Comment: PRETR ANSFUSION HGB = 8.0 HCT = 23.9 PERFORMED AT [facility] N 06/17/25 AT 0800 N Y A Performed By: #### B , [facility] #### [facility] [address] [place], [address] BRCon 06-02-2025 RC Normal [facility] Comment on above: Result Comment: [id number] BP RC TRANSFUSED 06/03/25 1118 [id number] OP RC TRANSFUSED 06/03/25 0912 Performed By: #### B TS #### [facility] [address] [address] [place], [address] CBC W Auto Differential pane l (Bld)on 06-02-2025 Basophils (Bld) [#/Vol] 10*3/uL Normal <0.11 [facility] Comment on above: Order Comment: Speci men Type: BLOOD SPECIMENOrdering Facility: [facility] Address: [address] [place] [address] Performed By: #### 5 7021-8 ####[facility] CENTERLIA [id number] [place] [address] [place] Basophils/100 WBC (Bld) 0.5 % Normal [facility] Comment on above: Order Comment: Speci men Type: BLOOD SPECIMENOrdering Facility: [facility] Address: [address] [place] [address] Performed By: #### 5 7021-8 ####[facility] HOSPITALLUISITO [id number] [place] [address] [place] Differential cell count method Nom (Bld) Auto Normal [facility] Comment on above: Order Comment: Speci men Type: BLOOD SPECIMENOrdering Facility: [facility] Address: [address] [place] [address] Performed By: #### 5 7021-8 ####[facility] [id number] [place] [address] [place] Eosinophils (Bld) [#/Vol] 0.04 10*3/uL Normal <0.46 [facility] Comment on above: Order Comment: Speci men Type: BLOOD SPECIMENOrdering Facility: [facility] Address: [address] [place] [address] Performed By: #### 5 7021-8 ####[facility] [id number] [place] [address] [place] Eosinophils/100 WBC (Bld) 1.0 % Normal [facility] Comment on above: Order Comment: Speci men Type: BLOOD SPECIMENOrdering Facility: [facility] Address: [address] [place] [address] Performed By: #### 5 7021-8 ####[facility] [id number] [place] [address] [place] Erythrocyte distribution width (RBC) [Ratio] 16.8 % High 11.5-15.0 [facility] Comment on above: Order Comment: Speci men Type: BLOOD SPECIMENOrdering Facility: [facility] Address: [address] [place] [address] Performed By: #### 5 7021-8 ####[facility] CENTERLIA [id number] [place] [address] [place] Hematocrit (Bld) [Volume fraction] 22.9 % Low 39.0-51.0 [facility] Comment on above: Order Comment: Speci men Type: BLOOD SPECIMENOrdering Facility: [facility] Address: [address] [place] [address] Performed By: #### 5 7021-8 ####[facility] [id number] [place] [address] [place] Hemoglobin (Bld) [Mass/Vol] 7.8 g/dL Low 13.0-17.0 [facility] Comment on above: Order Comment: Speci men Type: BLOOD SPECIMENOrdering Facility: [facility] Address: [address] [place] [address] Performed By: #### 5 7021-8 ####[facility] [id number] [place] [address] [place] Immature granulocytes (Bld) [#/Vol] 10*3/uL Normal <0.10 [facility] Comment on above: Order Comment: Speci men Type: BLOOD SPECIMENOrdering Facility: [facility] Address: [address] [place] [address] Performed By: #### 5 7021-8 ####[facility] [id number] [place] [address] [place] Immature granulocytes/100 WBC (Bld) 0.3 % Normal [facility] Comment on above: Order Comment: Speci men Type: BLOOD SPECIMENOrdering Facility: [facility] Address: [address] [place] [address] Performed By: #### 5 7021-8 ####[facility] [id number] [place] [address] [place] Lymphocytes (Bld) [#/Vol] 0.83 10*3/uL Low 1.00-4.00 [facility] Comment on above: Order Comment: Speci men Type: BLOOD SPECIMENOrdering Facility: [facility] Address: [address] [place] [address] Performed By: #### 5 7021-8 ####[facility] HOSPITALNCA [id number] [place] [address] [place] Lymphocytes/100 WBC (Bld) 21.8 % Normal [facility] Comment on above: Order Comment: Speci men Type: BLOOD SPECIMENOrdering Facility: [facility] Address: [address] [place] [address] Performed By: #### 5 7021-8 ####[facility] HOSPITALNCLI [id number] [place] [address] [place] MCH (RBC) [Entitic mass] 30.7 pg Normal 26.0-34.0 [facility] Comment on above: Order Comment: Speci men Type: BLOOD SPECIMENOrdering Facility: [facility] Address: [address] [place] [address] Performed By: #### 5 7021-8 ####[facility] [id number] [place] [address] [place] MCHC (RBC) [Mass/Vol] 34.1 g/dL Normal 30.5-36.0 [facility] Comment on above: Order Comment: Speci men Type: BLOOD SPECIMENOrdering Facility: [facility] Address: [address] [place] [address] Performed By: #### 5 7021-8 ####[facility] HOSPITALNCLI [id number] [place] [address] [place] MCV (RBC) [Entitic vol] 90.2 fL Normal 80.0-100.0 C [facility] Comment on above: Order Comment: Speci men Type: BLOOD SPECIMENOrdering Facility: [facility] Address: [address] [place] [address] Performed By: #### 5 7021-8 ####[facility] SHERRIHUDSONELLIEA [id number] [place] [address] [place] Monocytes (Bld) [#/Vol] 0.21 10*3/uL Normal <0.87 [facility] Comment on above: Order Comment: Speci men Type: BLOOD SPECIMENOrdering Facility: [facility] Address: [address] [place] [address] Performed By: #### 5 7021-8 ####[facility] [id number] [place] [address] [place] Monocytes/100 WBC (Bld) 5.5 % Normal [facility] Comment on above: Order Comment: Speci men Type: BLOOD SPECIMENOrdering Facility: [facility] Address: [address] [place] [address] Performed By: #### 5 7021-8 ####[facility]ENTERA [id number] [place] [address] [place] Neutrophils (Bld) [#/Vol] 2.70 10*3/uL Normal 1.45-7.50 [facility] Comment on above: Order Comment: Speci men Type: BLOOD SPECIMENOrdering Facility: [facility] Address: [address] [place] [address] Performed By: #### 5 7021-8 ####[facility] CENTERLIA [id number] [place] [address] [place] Neutrophils/100 WBC (Bld) 70.9 % Normal [facility] Comment on above: Order Comment: Speci men Type: BLOOD SPECIMENOrdering Facility: [facility] Address: [address] [place] [address] Performed By: #### 5 7021-8 ####[facility] CENTERLIA [id number] [place] [address] [place] Nucleated RBC (Bld) [#/Vol] 0.02 10*3/uL High <0.01 [facility] Comment on above: Order Comment: Speci men Type: BLOOD SPECIMENOrdering Facility: [facility] Address: [address] [place] [address] Performed By: #### 5 7021-8 ####[facility] [id number] [place] [address] [place] Nucleated RBC/100 WBC (Bld) [Ratio] 0.5 /100 WBC Normal [facility] Comment on above: Order Comment: Speci men Type: BLOOD SPECIMENOrdering Facility: [facility] Address: [address] [place] [address] Performed By: #### 5 7021-8 ####[facility] [id number] [place] [address] [place] Platelet mean volume (Bld) [Entitic vol] 11.1 fL Normal 9.0-12.7 [facility] Comment on above: Order Comment: Speci men Type: BLOOD SPECIMENOrdering Facility: [facility] Address: [address] [place] [address] Performed By: #### 5 7021-8 ####[facility] [id number] [place] [address] [place] Platelets (Bld) [#/Vol] 161 10*3/uL Normal 150-400 [facility] Comment on above: Order Comment: Speci men Type: BLOOD SPECIMENOrdering Facility: [facility] Address: [address] [place] [address] Performed By: #### 5 7021-8 ####[facility] HOSPITALNCLI [id number] [place] [address] [place] RBC (Bld) [#/Vol] 2.54 10*6/uL Low 4.20-6.00 [facility] Comment on above: Order Comment: Speci men Type: BLOOD SPECIMENOrdering Facility: [facility] Address: [address] [place] [address] Performed By: #### 5 7021-8 ####[facility] [id number] [place] [address] [place] WBC (Bld) [#/Vol] 3.81 10*3/uL Normal 3.70-11.00 [facility] Comment on above: Order Comment: Speci men Type: BLOOD SPECIMENOrdering Facility: [facility] Address: [address] [place] [address] Performed By: #### 5 7021-8 ####[facility] [id number] [place] [address] [place] CNPNon 06-02-2025 CNPN Normal [facility] Type AND Screenon 06-02-2025 Ab SCREEN GEL Negative Normal [facility] Comment on above: Order Comment: A Performed By: #### B TS #### [facility] [address] [facility] [place], [place], [id number] BRCon 05-19-2025 RC Normal [facility] Comment on above: Result Comment: [id number] OP RC TRANSFUSED 05/20/25 1145 [id number] BP RC TRANSFUSED 05/20/25 0853 Performed By: #### B RC, BTS #### [facility] [address] [facility] [address] [facility] [address] [place], [place], [address] CBC W Auto Differential pane l (Bld)on 05-19-2025 Basophils (Bld) [#/Vol] 10*3/uL Normal <0.11 C [facility] Comment on above: Order Comment: Speci men Type: BLOOD SPECIMENOrdering Facility: [facility] Address: [address] [place] [address] Performed By: #### 5 7021-8 ####[facility] MILLWNCLIA [id number] [place] [address] [place] Basophils/100 WBC (Bld) 0.3 % Normal C [facility] Comment on above: Order Comment: Speci men Type: BLOOD SPECIMENOrdering Facility: [facility] Address: [address] [place] [address] Performed By: #### 5 7021-8 ####[facility] CENTERLIA [id number] [place] [address] [place] Differential cell count method Nom (Bld) Auto Normal [facility] Comment on above: Order Comment: Speci men Type: BLOOD SPECIMENOrdering Facility: [facility] Address: [address] [place] [address] Performed By: #### 5 7021-8 ####[facility] CENTERLIA [id number] [place] [address] [place] Eosinophils (Bld) [#/Vol] 0.04 10*3/uL Normal <0.46 [facility] Comment on above: Order Comment: Speci men Type: BLOOD SPECIMENOrdering Facility: [facility] Address: [address] [place] [address] Performed By: #### 5 7021-8 ####[facility] CENTERLIA [id number] [place] [address] [place] Eosinophils/100 WBC (Bld) 1.1 % Normal [facility] Comment on above: Order Comment: Speci men Type: BLOOD SPECIMENOrdering Facility: [facility] Address: [address] [place] [address] Performed By: #### 5 7021-8 ####[facility] HOSPITALNCLIA [id number] [place] [address] [place] Erythrocyte distribution width (RBC) [Ratio] 17.0 % High 11.5-15.0 [facility] Comment on above: Order Comment: Speci men Type: BLOOD SPECIMENOrdering Facility: [facility] Address: [address] [place] [address] Performed By: #### 5 7021-8 ####[facility] [id number] [place] [address] [place] Hematocrit (Bld) [Volume fraction] 22.2 % Low 39.0-51.0 [facility] Comment on above: Order Comment: Speci men Type: BLOOD SPECIMENOrdering Facility: [facility] Address: [address] [place] [address] Performed By: #### 5 7021-8 ####[facility] [id number] [place] [address] [place] Hemoglobin (Bld) [Mass/Vol] 7.4 g/dL Low 13.0-17.0 [facility] Comment on above: Order Comment: Speci men Type: BLOOD SPECIMENOrdering Facility: [facility] Address: [address] [place] [address] Performed By: #### 5 7021-8 ####[facility] CENTERLIA [id number] [place] [address] [place] Immature granulocytes (Bld) [#/Vol] 10*3/uL Normal <0.10 [facility] Comment on above: Order Comment: Speci men Type: BLOOD SPECIMENOrdering Facility: [facility] Address: [address] [place] [address] Performed By: #### 5 7021-8 ####[facility] HOSPITALNCLI [id number] [place] [address] [place] Immature granulocytes/100 WBC (Bld) 0.6 % Normal [facility] Comment on above: Order Comment: Speci men Type: BLOOD SPECIMENOrdering Facility: [facility] Address: [address] [place] [address] Performed By: #### 5 7021-8 ####[facility] SHERRILIANNE [id number] [place] [address] [place] Lymphocytes (Bld) [#/Vol] 0.71 10*3/uL Low 1.00-4.00 [facility] Comment on above: Order Comment: Speci men Type: BLOOD SPECIMENOrdering Facility: [facility] Address: [address] [place] [address] Performed By: #### 5 7021-8 ####[facility] [id number] [place] [address] [place] Lymphocytes/100 WBC (Bld) 19.9 % Normal [facility] Comment on above: Order Comment: Speci men Type: BLOOD SPECIMENOrdering Facility: [facility] Address: [address] [place] [address] Performed By: #### 5 7021-8 ####[facility] CENTERDarrick [id number] [place] [address] [place] MCH (RBC) [Entitic mass] 29.2 pg Normal 26.0-34.0 [facility] Comment on above: Order Comment: Speci men Type: BLOOD SPECIMENOrdering Facility: [facility] Address: [address] [place] [address] Performed By: #### 5 7021-8 ####[facility] HOSPITALNCLIA [id number] [place] [address] [place] MCHC (RBC) [Mass/Vol] 33.3 g/dL Normal 30.5-36.0 [facility] Comment on above: Order Comment: Speci men Type: BLOOD SPECIMENOrdering Facility: [facility] Address: [address] [place] [address] Performed By: #### 5 7021-8 ####[facility] MILLWNCLIA [id number] [place] [address] [place] MCV (RBC) [Entitic vol] 87.7 fL Normal 80.0-100.0 C [facility] Comment on above: Order Comment: Speci men Type: BLOOD SPECIMENOrdering Facility: [facility] Address: [address] [place] [address] Performed By: #### 5 7021-8 ####[facility] CENTERLIA [id number] [place] [address] [place] Monocytes (Bld) [#/Vol] 0.18 10*3/uL Normal <0.87 [facility] Comment on above: Order Comment: Speci men Type: BLOOD SPECIMENOrdering Facility: [facility] Address: [address] [place] [address] Performed By: #### 5 7021-8 ####[facility] CENTERA [id number] [place] [address] [place] Monocytes/100 WBC (Bld) 5.1 % Normal C [facility] Comment on above: Order Comment: Speci men Type: BLOOD SPECIMENOrdering Facility: [facility] Address: [address] [place] [address] Performed By: #### 5 7021-8 ####[facility] CENTERLIA [id number] [place] [address] [place] Neutrophils (Bld) [#/Vol] 2.60 10*3/uL Normal 1.45-7.50 [facility] Comment on above: Order Comment: Speci men Type: BLOOD SPECIMENOrdering Facility: [facility] Address: [address] [place] [address] Performed By: #### 5 7021-8 ####[facility] HOSPITALNCLIA [id number] [place] [address] [place] Neutrophils/100 WBC (Bld) 73.0 % Normal [facility] Comment on above: Order Comment: Speci men Type: BLOOD SPECIMENOrdering Facility: [facility] Address: [address] [place] [address] Performed By: #### 5 7021-8 ####[facility] [id number] [place] [address] [place] Nucleated RBC (Bld) [#/Vol] 10*3/uL Normal <0.01 [facility] Comment on above: Order Comment: Speci men Type: BLOOD SPECIMENOrdering Facility: [facility] Address: [address] [place] [address] Performed By: #### 5 7021-8 ####[facility] [id number] [place] [address] [place] Nucleated RBC/100 WBC (Bld) [Ratio] 0.0 /100 WBC Normal [facility] Comment on above: Order Comment: Speci men Type: BLOOD SPECIMENOrdering Facility: [facility] Address: [address] [place] [address] Performed By: #### 5 7021-8 ####[facility] [id number] [place] [address] [place] Platelet mean volume (Bld) [Entitic vol] 11.1 fL Normal 9.0-12.7 [facility] Comment on above: Order Comment: Speci men Type: BLOOD SPECIMENOrdering Facility: [facility] Address: [address] [place] [address] Performed By: #### 5 7021-8 ####[facility] [id number] [place] [address] [place] Platelets (Bld) [#/Vol] 162 10*3/uL Normal 150-400 [facility] Comment on above: Order Comment: Speci men Type: BLOOD SPECIMENOrdering Facility: [facility] Address: [address] [place] [address] Performed By: #### 5 7021-8 ####[facility] HOSPITALNCLIA [id number] [place] [address] [place] RBC (Bld) [#/Vol] 2.53 10*6/uL Low 4.20-6.00 [facility] Comment on above: Order Comment: Speci men Type: BLOOD SPECIMENOrdering Facility: [facility] Address: [address] [place] [address] Performed By: #### 5 7021-8 ####[facility] CENTERLIA [id number] [place] [address] [place] WBC (Bld) [#/Vol] 3.56 10*3/uL Low 3.70-11.00 [facility] Comment on above: Order Comment: Speci men Type: BLOOD SPECIMENOrdering Facility: [facility] Address: [address] [place] [address] Performed By: #### 5 7021-8 ####[facility] CENTERLIA [id number] [place] [address] [place] CNPNon 05-19-2025 CNPN Normal [facility] Type AND Screenon 05-19-2025 Ab SCREEN GEL Negative Normal [facility] Comment on above: Order Comment: PRETR ANSFUSION HGB = 7.4 HCT = 22.2 PERFORMED AT [facility]05/20/25 @ 0830NYA Performed By: #### B , BTS #### [facility] [address] [place], [address] CNPNon 05-08-2025 CNPN Normal [facility] BRCon 05-05-2025 RC Normal [facility] Comment on above: Result Comment: [id number] BP RC TRANSFUSED 05/06/25 1127 [id number] BP RC TRANSFUSED 05/06/25 0903 Performed By: #### B , [facility] #### [facility] [address] [place], [place], [id number] CBC W Auto Differential pane l (Bld)on 05-05-2025 Basophils (Bld) [#/Vol] 10*3/uL Normal <0.11 C [facility] Comment on above: Order Comment: Speci men Type: BLOOD SPECIMENOrdering Facility: [facility] Address: [address] [place] [address] Performed By: #### 5 7021-8 ####[facility] CENTERLIA [id number] [place] [address] [place] Basophils/100 WBC (Bld) 0.5 % Normal C [facility] Comment on above: Order Comment: Speci men Type: BLOOD SPECIMENOrdering Facility: [facility] Address: [address] [place] [address] Performed By: #### 5 7021-8 ####[facility] CENTERLIA [id number] [place] [address] [place] Differential cell count method Nom (Bld) Auto Normal [facility] Comment on above: Order Comment: Speci men Type: BLOOD SPECIMENOrdering Facility: [facility] Address: [address] [place] [address] Performed By: #### 5 7021-8 ####[facility] MILLTOWNCLIA [id number] [place] [address] [place] Eosinophils (Bld) [#/Vol] 0.06 10*3/uL Normal <0.46 [facility] Comment on above: Order Comment: Speci men Type: BLOOD SPECIMENOrdering Facility: [facility] Address: [address] [place] [address] Performed By: #### 5 7021-8 ####[facility] MILLWNCLIA [id number] [place] [address] [place] Eosinophils/100 WBC (Bld) 1.6 % Normal [facility] Comment on above: Order Comment: Speci men Type: BLOOD SPECIMENOrdering Facility: [facility] Address: [address] [place] [address] Performed By: #### 5 7021-8 ####[facility]UN[facility] HOSPITALLUISITO [id number] [place] [address] [place] Erythrocyte distribution width (RBC) [Ratio] 17.3 % High 11.5-15.0 [facility] Comment on above: Order Comment: Speci men Type: BLOOD SPECIMENOrdering Facility: [facility] Address: [address] [place] [address] Performed By: #### 5 7021-8 ####[facility] HOSPITALLUISITO [id number] [place] [address] [place] Hematocrit (Bld) [Volume fraction] 23.4 % Low 39.0-51.0 [facility] Comment on above: Order Comment: Speci men Type: BLOOD SPECIMENOrdering Facility: [facility] Address: [address] [place] [address] Performed By: #### 5 7021-8 ####[facility] HOSPITALLUISITO [id number] [place] [address] [place] Hemoglobin (Bld) [Mass/Vol] 7.9 g/dL Low 13.0-17.0 [facility] Comment on above: Order Comment: Speci men Type: BLOOD SPECIMENOrdering Facility: [facility] Address: [address] [place] [address] Performed By: #### 5 7021-8 ####[facility] HOSPITALNCLI [id number] [place] [address] [place] Immature granulocytes (Bld) [#/Vol] 10*3/uL Normal <0.10 [facility] Comment on above: Order Comment: Speci men Type: BLOOD SPECIMENOrdering Facility: [facility] Address: [address] [place] [address] Performed By: #### 5 7021-8 ####[facility] SHERRIVidhyaNCSAURABH [id number] [place] [address] [place] Immature granulocytes/100 WBC (Bld) 0.3 % Normal [facility] Comment on above: Order Comment: Speci men Type: BLOOD SPECIMENOrdering Facility: [facility] Address: [address] [place] [address] Performed By: #### 5 7021-8 ####[facility]ITALROCKYOREM [facility] [id number] [place] [address] [place] Lymphocytes (Bld) [#/Vol] 0.91 10*3/uL Low 1.00-4.00 [facility] Comment on above: Order Comment: Speci men Type: BLOOD SPECIMENOrdering Facility: [facility] Address: [address] [place] [address] Performed By: #### 5 7021-8 ####[facility] [id number] [place] [address] [place] Lymphocytes/100 WBC (Bld) 24.3 % Normal [facility] Comment on above: Order Comment: Speci men Type: BLOOD SPECIMENOrdering Facility: [facility] Address: [address] [place] [address] Performed By: #### 5 7021-8 ####[facility] CENTERA [id number] [place] [address] [place] MCH (RBC) [Entitic mass] 30.2 pg Normal 26.0-34.0 [facility] Comment on above: Order Comment: Speci men Type: BLOOD SPECIMENOrdering Facility: [facility] Address: [address] [place] [address] Performed By: #### 5 7021-8 ####[facility] SHERRIWNCLIA [id number] [place] [address] [place] MCHC (RBC) [Mass/Vol] 33.8 g/dL Normal 30.5-36.0 [facility] Comment on above: Order Comment: Speci men Type: BLOOD SPECIMENOrdering Facility: [facility] Address: [address] [place] [address] Performed By: #### 5 7021-8 ####[facility] [id number] [place] [address] [place] MCV (RBC) [Entitic vol] 89.3 fL Normal 80.0-100.0 [facility] Comment on above: Order Comment: Speci men Type: BLOOD SPECIMENOrdering Facility: [facility] Address: [address] [place] [address] Performed By: #### 5 7021-8 ####[facility] [id number] [place] [address] [place] Monocytes (Bld) [#/Vol] 0.21 10*3/uL Normal <0.87 [facility] Comment on above: Order Comment: Speci men Type: BLOOD SPECIMENOrdering Facility: [facility] Address: [address] [place] [address] Performed By: #### 5 7021-8 ####[facility]ENTER[facility]IA [id number] [address] [address] [place] Monocytes/100 WBC (Bld) 5.6 % Normal C [facility] Comment on above: Order Comment: Speci men Type: BLOOD SPECIMENOrdering Facility: [facility] Address: [address] [place] [address] Performed By: #### 5 7021-8 ####[facility] HOSPITALNCLI [id number] [place] [address] [place] Neutrophils (Bld) [#/Vol] 2.54 10*3/uL Normal 1.45-7.50 [facility] Comment on above: Order Comment: Speci men Type: BLOOD SPECIMENOrdering Facility: [facility] Address: [address] [place] [address] Performed By: #### 5 7021-8 ####[facility] CENTERLIA [id number] [place] [address] [place] Neutrophils/100 WBC (Bld) 67.7 % Normal [facility] Comment on above: Order Comment: Speci men Type: BLOOD SPECIMENOrdering Facility: [facility] Address: [address] [place] [address] Performed By: #### 5 7021-8 ####[facility] [id number] [place] [address] [place] Nucleated RBC (Bld) [#/Vol] 10*3/uL Normal <0.01 [facility] Comment on above: Order Comment: Speci men Type: BLOOD SPECIMENOrdering Facility: [facility] Address: [address] [place] [address] Performed By: #### 5 7021-8 ####[facility] HOSPITALNCLI [id number] [place] [address] [place] Nucleated RBC/100 WBC (Bld) [Ratio] 0.0 /100 WBC Normal [facility] Comment on above: Order Comment: Speci men Type: BLOOD SPECIMENOrdering Facility: [facility] Address: [address] [place] [address] Performed By: #### 5 7021-8 ####[facility] HOSPITALNCLIA [id number] [place] [address] [place] Platelet mean volume (Bld) [Entitic vol] 10.1 fL Normal 9.0-12.7 [facility] Comment on above: Order Comment: Speci men Type: BLOOD SPECIMENOrdering Facility: [facility] Address: [address] [place] [address] Performed By: #### 5 7021-8 ####[facility] GABBY BECKYNCLESLYA [id number] [place] [address] [place] Platelets (Bld) [#/Vol] 161 10*3/uL Normal 150-400 [facility] Comment on above: Order Comment: Speci men Type: BLOOD SPECIMENOrdering Facility: [facility] Address: [address] [place] [address] Performed By: #### 5 7021-8 ####[facility] SHERRIHUDSONNCLIA [id number] [place] [address] [place] RBC (Bld) [#/Vol] 2.62 10*6/uL Low 4.20-6.00 [facility] Comment on above: Order Comment: Speci men Type: BLOOD SPECIMENOrdering Facility: [facility] Address: [address] [place] [address] Performed By: #### 5 7021-8 ####[facility] HOSPITALNCLIA [id number] [place] [address] [place] WBC (Bld) [#/Vol] 3.75 10*3/uL Normal 3.70-11.00 [facility] Comment on above: Order Comment: Speci men Type: BLOOD SPECIMENOrdering Facility: [facility] Address: [address] [place] [address] Performed By: #### 5 7021-8 ####[facility] HOSPITALNCLIA [id number] [place] [address] [place] CNPNon 05-05-2025 CNPN Normal [facility] Comprehensive metabolic 2000 panelon 05-05-2025 Albumin [Mass/Vol] 4.2 g/dL Normal 3.9-4.9 [facility] Comment on above: Order Comment: Speci men Type: BLOOD SPECIMENOrdering Facility: [facility] Address: [address] [place] [address] Performed By: #### 2 4323-8 ####[facility] SHERRIWROCKYLIA [id number] [place] [address] [place] ALP [Catalytic activity/Vol] 76 U/L Normal 38-113 [facility] Comment on above: Order Comment: Speci men Type: BLOOD SPECIMENOrdering Facility: [facility] Address: [address] [place] [address] Performed By: #### 2 4323-8 ####[facility] HOSPITALWNCLIA [id number] [place] [address] [place] ALT [Catalytic activity/Vol] 57 U/L High 10-54 [facility] Comment on above: Order Comment: Speci men Type: BLOOD SPECIMENOrdering Facility: [facility] Address: [address] [place] [address] Performed By: #### 2 4323-8 ####[facility] HOSPITALNCLIA [id number] [place] [address] [place] Anion gap [Moles/Vol] 12 mmol/L Normal 8-15 [facility] Comment on above: Order Comment: Speci men Type: BLOOD SPECIMENOrdering Facility: [facility] Address: [address] [place] [address] Performed By: #### 2 4323-8 ####[facility] MILLTOWNCLIA [id number] [place] [address] [place] AST [Catalytic activity/Vol] 43 U/L High 14-40 [facility] Comment on above: Order Comment: Speci men Type: BLOOD SPECIMENOrdering Facility: [facility] Address: [address] [place] [address] Performed By: #### 2 4323-8 ####[facility] MILLTOWNCLIA [id number] [place] [address] [place] Bilirubin [Mass/Vol] 1.2 mg/dL Normal 0.2-1.3 [facility] Comment on above: Order Comment: Speci men Type: BLOOD SPECIMENOrdering Facility: [facility] Address: [address] [place] [address] Performed By: #### 2 4323-8 ####[facility] MILLWNCLIA [id number] [place] [address] [place] Calcium [Mass/Vol] 9.7 mg/dL Normal 8.5-10.2 [facility] Comment on above: Order Comment: Speci men Type: BLOOD SPECIMENOrdering Facility: [facility] Address: [address] [place] [address] Performed By: #### 2 4323-8 ####[facility] MED[facility] CENTERLIA [id number] [place] [address] [place] Chloride [Moles/Vol] 99 mmol/L Normal 98-107 [facility] Comment on above: Order Comment: Speci men Type: BLOOD SPECIMENOrdering Facility: [facility] Address: [address] [place] [address] Performed By: #### 2 4323-8 ####[facility] MILLWNCLIA [id number] [place] [address] [place] CO2 [Moles/Vol] 24 mmol/L Normal 22-30 [facility] Comment on above: Order Comment: Speci men Type: BLOOD SPECIMENOrdering Facility: [facility] Address: [address] [place] [address] Performed By: #### 2 4323-8 ####[facility] HOSPITALNCLIA [id number] [place] [address] [place] Creatinine [Mass/Vol] 0.68 mg/dL Low 0.73-1.22 [facility] Comment on above: Order Comment: Gilma ojeda Type: BLOOD SPECIMENOrdering Facility: [facility] Address: [address] [place] [address] Performed By: #### 2 4323-8 ####[facility] [id number] [place] [address] [place] Creatinine and Glomerular filtration rate.predicted panel (S/P/Bld) 94 mL/min/1.73m??? Normal >=60 [facility] Comment on above: Order Comment: Gilma ojeda Type: BLOOD SPECIMENOrdering Facility: [facility] Address: [address] [place] [address] Result Comment: Lilly mated Glomerular Filtration Rate [...] actual GFR. Performed By: #### 2 4323-8 ####[facility] [id number] [place] [address] [place] Glucose [Mass/Vol] 147 mg/dL High 74-99 [facility] Comment on above: Order Comment: Gilma ojeda Type: BLOOD SPECIMENOrdering Facility: [facility] Address: [address] [place] [address] Result Comment: The [place] [employer] (ADA) provides guidance for cutoff [...] Standards of Medical Care in Diabetes 2016, [place] [employer]. Diabetes Care. 2016.39(Suppl 1). Performed By: #### 2 4323-8 ####[facility] SHERRIGA [id number] [place] [address] [place] Potassium [Moles/Vol] 4.7 mmol/L Normal 3.7-5.1 [facility] Comment on above: Order Comment: Speci men Type: BLOOD SPECIMENOrdering Facility: [facility] Address: [address] [place] [address] Performed By: #### 2 4323-8 ####[facility] HOSPITALROCKYDarrick [id number] [place] [address] [place] Protein [Mass/Vol] 6.5 g/dL Normal 6.3-8.0 [facility] Comment on above: Order Comment: Speci men Type: BLOOD SPECIMENOrdering Facility: [facility] Address: [address] [place] [address] Performed By: #### 2 4323-8 ####[facility] COMM[facility] HOSPITALLUISITO [id number] [place] [address] [place] Sodium [Moles/Vol] 135 mmol/L Low 136-144 [facility] Comment on above: Order Comment: Speci men Type: BLOOD SPECIMENOrdering Facility: [facility] Address: [address] [place] [address] Performed By: #### 2 4323-8 ####[facility] COMMUN[facility] HOSPITALLUISITO [id number] [place] [address] [place] Urea nitrogen [Mass/Vol] 13 mg/dL Normal 9-24 [facility] Comment on above: Order Comment: Speci men Type: BLOOD SPECIMENOrdering Facility: [facility] Address: [address] [place] [address] Performed By: #### 2 4323-8 ####[facility] HOSPITALWNCLIA [id number] [place] [address] [place] Type AND Screenon 05-05-2025 Ab SCREEN GEL Negative Normal [facility] Comment on above: Order Comment: PRETR ANSFUSION HGB = 8.0 HCT = 23.9 PERFORMED AT [facility] N 06/17/25 AT 0800 N Y A Performed By: #### B TS, [facility] #### [facility] [address] [place], [address] US ABD RIGHT UPPER QUADRANTo n 05-05-2025 US ABD RIGHT UPPER QUADRANT Normal [facility] US ABD SPLEEN -NBon 05-05-20 US ABD SPLEEN -NB Normal [facility] BRCon 04-21-2025 RC Normal [facility] Comment on above: Result Comment: [id number] BP RC TRANSFUSED 04/22/25 1135 [id number] BP RC TRANSFUSED 04/22/25 0904 Performed By: #### B #### [facility] [address] [place], [address] CBC W Auto Differential pane l (Bld)on 04-21-2025 Basophils (Bld) [#/Vol] 10*3/uL Normal <0.11 C [facility] Comment on above: Order Comment: Speci men Type: BLOOD SPECIMENOrdering Facility: [facility] Address: [address] [place] [address] Performed By: #### 5 7021-8 ####[facility] HOSPITALNCLIA [id number] [place] [address] [place] Basophils/100 WBC (Bld) 0.3 % [facility] Comment on above: Order Comment: Speci men Type: BLOOD SPECIMENOrdering Facility: [facility] Address: [address] [place] [address] Performed By: #### 5 7021-8 ####[facility] CENTERLIA [id number] [place] [address] [place] Differential cell count method Nom (Bld) Auto Normal [facility] Comment on above: Order Comment: Speci men Type: BLOOD SPECIMENOrdering Facility: [facility] Address: [address] [place] [address] Performed By: #### 5 7021-8 ####[facility] [id number] [place] [address] [place] Eosinophils (Bld) [#/Vol] 0.05 10*3/uL Normal <0.46 [facility] Comment on above: Order Comment: Speci men Type: BLOOD SPECIMENOrdering Facility: [facility] Address: [address] [place] [address] Performed By: #### 5 7021-8 ####[facility] [id number] [place] [address] [place] Eosinophils/100 WBC (Bld) 1.3 % Normal [facility] Comment on above: Order Comment: Speci men Type: BLOOD SPECIMENOrdering Facility: [facility] Address: [address] [place] [address] Performed By: #### 5 7021-8 ####[facility] [id number] [place] [address] [place] Erythrocyte distribution width (RBC) [Ratio] 17.8 % High 11.5-15.0 [facility] Comment on above: Order Comment: Speci men Type: BLOOD SPECIMENOrdering Facility: [facility] Address: [address] [place] [address] Performed By: #### 5 7021-8 ####[facility] HOSPITALNCLI [id number] [place] [address] [place] Hematocrit (Bld) [Volume fraction] 22.3 % Low 39.0-51.0 [facility] Comment on above: Order Comment: Speci men Type: BLOOD SPECIMENOrdering Facility: [facility] Address: [address] [place] [address] Performed By: #### 5 7021-8 ####[facility] SHERRILIANNE [id number] [place] [address] [place] Hemoglobin (Bld) [Mass/Vol] 7.4 g/dL Low 13.0-17.0 [facility] Comment on above: Order Comment: Speci men Type: BLOOD SPECIMENOrdering Facility: [facility] Address: [address] [place] [address] Performed By: #### 5 7021-8 ####[facility] [id number] [place] [address] [place] Immature granulocytes (Bld) [#/Vol] 10*3/uL Normal <0.10 [facility] Comment on above: Order Comment: Speci men Type: BLOOD SPECIMENOrdering Facility: [facility] Address: [address] [place] [address] Performed By: #### 5 7021-8 ####[facility] CENTERA [id number] [place] [address] [place] Immature granulocytes/100 WBC (Bld) 0.5 % Normal [facility] Comment on above: Order Comment: Speci men Type: BLOOD SPECIMENOrdering Facility: [facility] Address: [address] [place] [address] Performed By: #### 5 7021-8 ####[facility] HOSPITALNCLIA [id number] [place] [address] [place] Lymphocytes (Bld) [#/Vol] 0.70 10*3/uL Low 1.00-4.00 [facility] Comment on above: Order Comment: Speci men Type: BLOOD SPECIMENOrdering Facility: [facility] Address: [address] [place] [address] Performed By: #### 5 7021-8 ####[facility] MED[facility] CENTERLIA [id number] [place] [address] [place] Lymphocytes/100 WBC (Bld) 17.8 % Normal [facility] Comment on above: Order Comment: Speci men Type: BLOOD SPECIMENOrdering Facility: [facility] Address: [address] [place] [address] Performed By: #### 5 7021-8 ####[facility] [id number] [place] [address] [place] MCH (RBC) [Entitic mass] 30.5 pg Normal 26.0-34.0 [facility] Comment on above: Order Comment: Speci men Type: BLOOD SPECIMENOrdering Facility: [facility] Address: [address] [place] [address] Performed By: #### 5 7021-8 ####[facility] [id number] [place] [address] [place] MCHC (RBC) [Mass/Vol] 33.2 g/dL Normal 30.5-36.0 [facility] Comment on above: Order Comment: Speci men Type: BLOOD SPECIMENOrdering Facility: [facility] Address: [address] [place] [address] Performed By: #### 5 7021-8 ####[facility] [id number] [place] [address] [place] MCV (RBC) [Entitic vol] 91.8 fL Normal 80.0-100.0 C [facility] Comment on above: Order Comment: Speci men Type: BLOOD SPECIMENOrdering Facility: [facility] Address: [address] [place] [address] Performed By: #### 5 7021-8 ####[facility] [id number] [place] [address] [place] Monocytes (Bld) [#/Vol] 0.21 10*3/uL Normal <0.87 [facility] Comment on above: Order Comment: Speci men Type: BLOOD SPECIMENOrdering Facility: [facility] Address: [address] [place] [address] Performed By: #### 5 7021-8 ####[facility] CENTERLIA [id number] [place] [address] [place] Monocytes/100 WBC (Bld) 5.3 % Normal [facility] Comment on above: Order Comment: Speci men Type: BLOOD SPECIMENOrdering Facility: [facility] Address: [address] [place] [address] Performed By: #### 5 7021-8 ####[facility] HOSPITALNCA [id number] [place] [address] [place] Neutrophils (Bld) [#/Vol] 2.94 10*3/uL Normal 1.45-7.50 [facility] Comment on above: Order Comment: Speci men Type: BLOOD SPECIMENOrdering Facility: [facility] Address: [address] [place] [address] Performed By: #### 5 7021-8 ####[facility]ENTERA [id number] [place] [address] [place] Neutrophils/100 WBC (Bld) 74.8 % Normal [facility] Comment on above: Order Comment: Speci men Type: BLOOD SPECIMENOrdering Facility: [facility] Address: [address] [place] [address] Performed By: #### 5 7021-8 ####[facility] HOSPITALNCLIA [id number] [place] [address] [place] Nucleated RBC (Bld) [#/Vol] 10*3/uL Normal <0.01 [facility] Comment on above: Order Comment: Speci men Type: BLOOD SPECIMENOrdering Facility: [facility] Address: [address] [place] [address] Performed By: #### 5 7021-8 ####[facility] WILLIAM [id number] [place] [address] [place] Nucleated RBC/100 WBC (Bld) [Ratio] 0.0 /100 WBC Normal [facility] Comment on above: Order Comment: Speci men Type: BLOOD SPECIMENOrdering Facility: [facility] Address: [address] [place] [address] Performed By: #### 5 7021-8 ####[facility] SHERRIVidhyaNCSAURABH [id number] [place] [address] [place] Platelet mean volume (Bld) [Entitic vol] 11.2 fL Normal 9.0-12.7 [facility] Comment on above: Order Comment: Speci men Type: BLOOD SPECIMENOrdering Facility: [facility] Address: [address] [place] [address] Performed By: #### 5 7021-8 ####[facility] SHERRIHUDSONNCLESLYA [id number] [place] [address] [place] Platelets (Bld) [#/Vol] 140 10*3/uL Low 150-400 [facility] Comment on above: Order Comment: Speci men Type: BLOOD SPECIMENOrdering Facility: [facility] Address: [address] [place] [address] Performed By: #### 5 7021-8 ####[facility] HOSPITALNCLIA [id number] [place] [address] [place] RBC (Bld) [#/Vol] 2.43 10*6/uL Low 4.20-6.00 [facility] Comment on above: Order Comment: Speci men Type: BLOOD SPECIMENOrdering Facility: [facility] Address: [address] [place] [address] Performed By: #### 5 7021-8 ####[facility] HOSPITALNCA [id number] [place] [address] [place] WBC (Bld) [#/Vol] 3.93 10*3/uL Normal 3.70-11.00 [facility] Comment on above: Order Comment: Speci men Type: BLOOD SPECIMENOrdering Facility: [facility] Address: [address] [place] [address] Performed By: #### 5 7021-8 ####[facility] [id number] [place] [address] [place] CNOVSPon 04-21-2025 CNOVSP Normal [facility] CNPNon 04-21-2025 CNPN Normal [facility] Comprehensive metabolic 2000 panelon 04-21-2025 Albumin [Mass/Vol] 4.2 g/dL Normal 3.9-4.9 [facility] Comment on above: Order Comment: Speci men Type: BLOOD SPECIMENOrdering Facility: [facility] Address: [address] [place] [address] Performed By: #### 2 4323-8 ####[facility] HOSPITALNCLIA [id number] [place] [address] [place] ALP [Catalytic activity/Vol] 78 U/L Normal 38-113 [facility] Comment on above: Order Comment: Speci men Type: BLOOD SPECIMENOrdering Facility: [facility] Address: [address] [place] [address] Performed By: #### 2 4323-8 ####[facility] [id number] [place] [address] [place] ALT [Catalytic activity/Vol] 55 U/L High 10-54 [facility] Comment on above: Order Comment: Speci men Type: BLOOD SPECIMENOrdering Facility: [facility] Address: [address] [place] [address] Performed By: #### 2 4323-8 ####[facility] GABBY MILLTOWNCLIA [id number] [place] [address] [place] Anion gap [Moles/Vol] 13 mmol/L Normal 8-15 [facility] Comment on above: Order Comment: Speci men Type: BLOOD SPECIMENOrdering Facility: [facility] Address: [address] [place] [address] Performed By: #### 2 4323-8 ####[facility] MILLWNCLIA [id number] [place] [address] [place] AST [Catalytic activity/Vol] 39 U/L Normal 14-40 [facility] Comment on above: Order Comment: Speci men Type: BLOOD SPECIMENOrdering Facility: [facility] Address: [address] [place] [address] Performed By: #### 2 4323-8 ####[facility] HOSPITALWNCLIA [id number] [place] [address] [place] Bilirubin [Mass/Vol] 1.1 mg/dL Normal 0.2-1.3 [facility] Comment on above: Order Comment: Speci men Type: BLOOD SPECIMENOrdering Facility: [facility] Address: [facility] [place] [address] Performed By: #### 2 4323-8 ####[facility] MILLTOWNCLIA [id number] [place] [address] [place] Calcium [Mass/Vol] 9.1 mg/dL Normal 8.5-10.2 [facility] Comment on above: Order Comment: Speci men Type: BLOOD SPECIMENOrdering Facility: [facility] Address: [address] [place] [address] Performed By: #### 2 4323-8 ####[facility] MILLTOWNCLIA [id number] [place] [address] [place] Chloride [Moles/Vol] 100 mmol/L Normal 98-107 [facility] Comment on above: Order Comment: Speci men Type: BLOOD SPECIMENOrdering Facility: [facility] Address: [address] [place] [address] Performed By: #### 2 4323-8 ####[facility] [id number] [place] [address] [place] CO2 [Moles/Vol] 25 mmol/L Normal 22-30 [facility] Comment on above: Order Comment: Speci men Type: BLOOD SPECIMENOrdering Facility: [facility] Address: [address] [place] [address] Performed By: #### 2 4323-8 ####[facility] [id number] [place] [address] [place] Creatinine [Mass/Vol] 0.73 mg/dL Normal 0.73-1.22 [facility] Comment on above: Order Comment: Speci men Type: BLOOD SPECIMENOrdering Facility: [facility] Address: [address] [place] [address] Performed By: #### 2 4323-8 ####[facility] [id number] [place] [address] [place] [facility] Creatinine and Glomerular filtration rate.predicted panel (S/P/Bld) 92 mL/min/1.73m??? Normal >=60 [facility] Comment on above: Order Comment: Speci men Type: BLOOD SPECIMENOrdering Facility: [facility] Address: [address] [place] [address] Result Comment: Lilly mated Glomerular Filtration Rate [...] actual GFR. Performed By: #### 2 4323-8 ####[facility] - [facility] SHERRIWNCLIA [id number] [place] [address] [place] Glucose [Mass/Vol] 173 mg/dL High 74-99 [facility] Comment on above: Order Comment: Speci men Type: BLOOD SPECIMENOrdering Facility: [facility] Address: [address] [place] [address] Result Comment: The [place] Diabetes Association (ADA) provides guidance for cutoff [...] Standards of Medical Care in Diabetes 2016, [place] [employer]. Diabetes Care. 2016.39(Suppl 1). Performed By: #### 2 4323-8 ####[facility] HOSPITALNCLIA [id number] [place] [address] [place] Potassium [Moles/Vol] 4.3 mmol/L Normal 3.7-5.1 [facility] Comment on above: Order Comment: Speci men Type: BLOOD SPECIMENOrdering Facility: [facility] Address: [address] [place] [address] Performed By: #### 2 4323-8 ####[facility] HOSPITALNCLIA [id number] [place] [address] [place] Protein [Mass/Vol] 6.2 g/dL Low 6.3-8.0 [facility] Comment on above: Order Comment: Speci men Type: BLOOD SPECIMENOrdering Facility: [facility] Address: [address] [place] [address], [place] [address] Performed By: #### 2 4323-8 ####[facility] SHERRIGRAND ITASCA CLINIC AND HOSPITALA [id number] [place] [address] [place] Sodium [Moles/Vol] 138 mmol/L Normal 136-144 [facility] Comment on above: Order Comment: Speci men Type: BLOOD SPECIMENOrdering Facility: [facility] Address: [address] [place], [place] [address] Performed By: #### 2 4323-8 ####[facility] [id number] [place] [address] [place] Urea nitrogen [Mass/Vol] 13 mg/dL Normal 9-24 [facility] Comment on above: Order Comment: Speci men Type: BLOOD SPECIMENOrdering Facility: [facility] Address: [address] [place], [place] [address] Performed By: #### 2 4323-8 ####[facility] [id number] [place] [address] [place] Type AND Screenon 04-21-2025 Ab SCREEN GEL Negative Normal [facility] Comment on above: Order Comment: A Performed By: #### B TS #### [facility] [address] [facility]. [place], [place], [address] BRCon 04-07-2025 RC Normal [facility] Comment on above: Result Comment: [id number] OP RC TRANSFUSED 04/08/25 0829 [id number] BP RC TRANSFUSED 04/08/25 1046 Performed By: #### B , BTS #### [facility] [address] [place], [place], [address] CBC W Auto Differential pane l (Bld)on 04-07-2025 Basophils (Bld) [#/Vol] 10*3/uL Normal <0.11 C [facility] Comment on above: Order Comment: Speci men Type: BLOOD SPECIMENOrdering Facility: [facility] Address: [address] [place] [address] Performed By: #### 5 7021-8 ####[facility] HOSPITALWNCLIA [id number] [place] [address] [place] Basophils/100 WBC (Bld) 0.5 % Normal [facility] Comment on above: Order Comment: Speci men Type: BLOOD SPECIMENOrdering Facility: [facility] Address: [address] [place] [address] Performed By: #### 5 7021-8 ####[facility] CENTERLIA [id number] [place] [address] [place] Differential cell count method Nom (Bld) Auto Normal [facility] Comment on above: Order Comment: Speci men Type: BLOOD SPECIMENOrdering Facility: [facility] Address: [address] [place] [address] Performed By: #### 5 7021-8 ####[facility] MEDICAL CENTERLIA [id number] [place] [address] [place] Eosinophils (Bld) [#/Vol] 0.03 10*3/uL Normal <0.46 [facility] Comment on above: Order Comment: Speci men Type: BLOOD SPECIMENOrdering Facility: [facility] Address: [address] [place] [address] Performed By: #### 5 7021-8 ####[facility] MEDICAL CENTERLIA [id number] [place] [address] [place] Eosinophils/100 WBC (Bld) 0.8 % Normal [facility] Comment on above: Order Comment: Speci men Type: BLOOD SPECIMENOrdering Facility: [facility] Address: [address] [place] [address] Performed By: #### 5 7021-8 ####[facility] MED[facility] CENTERLIA [id number] [place] [address] [place] Erythrocyte distribution width (RBC) [Ratio] 18.1 % High 11.5-15.0 [facility] Comment on above: Order Comment: Speci men Type: BLOOD SPECIMENOrdering Facility: [facility] Address: [address] [place] [address] Performed By: #### 5 7021-8 ####[facility] HOSPITALROCKYDarrick [id number] [place] [address] [place] Hematocrit (Bld) [Volume fraction] 22.8 % Low 39.0-51.0 [facility] Comment on above: Order Comment: Speci men Type: BLOOD SPECIMENOrdering Facility: [facility] Address: [address] [place] [address] Performed By: #### 5 7021-8 ####[facility] HOSPITALROCKYDarrick [id number] [place] [address] [place] Hemoglobin (Bld) [Mass/Vol] 7.4 g/dL Low 13.0-17.0 [facility] Comment on above: Order Comment: Speci men Type: BLOOD SPECIMENOrdering Facility: [facility] Address: [address] [place] [address] Performed By: #### 5 7021-8 ####[facility]IT[facility] MEDICAL CENTERSAURABH [id number] [place] [address] [place] Immature granulocytes (Bld) [#/Vol] 10*3/uL Normal <0.10 [facility] Comment on above: Order Comment: Speci men Type: BLOOD SPECIMENOrdering Facility: [facility] Address: [address] [place] [address] Performed By: #### 5 7021-8 ####[facility] HOSPITALNCLIA [id number] [place] [address] [place] Immature granulocytes/100 WBC (Bld) 0.5 % Normal [facility] Comment on above: Order Comment: Speci men Type: BLOOD SPECIMENOrdering Facility: [facility] Address: [address] [place] [address] Performed By: #### 5 7021-8 ####[facility] SHERRIHUDSONNCLESLY [id number] [place] [address] [place] Lymphocytes (Bld) [#/Vol] 0.84 10*3/uL Low 1.00-4.00 [facility] Comment on above: Order Comment: Speci men Type: BLOOD SPECIMENOrdering Facility: [facility] Address: [address] [place] [address] Performed By: #### 5 7021-8 ####[facility] [id number] [place] [address] [place] Lymphocytes/100 WBC (Bld) 21.3 % Normal [facility] Comment on above: Order Comment: Speci men Type: BLOOD SPECIMENOrdering Facility: [facility] Address: [address] [place] [address] Performed By: #### 5 7021-8 ####[facility] [id number] [place] [address] [place] MCH (RBC) [Entitic mass] 30.1 pg Normal 26.0-34.0 [facility] Comment on above: Order Comment: Speci men Type: BLOOD SPECIMENOrdering Facility: [facility] Address: [address] [place] [address] Performed By: #### 5 7021-8 ####[facility] COMM[facility] HOSPITALNCA [id number] [place] [address] [place] MCHC (RBC) [Mass/Vol] 32.5 g/dL Normal 30.5-36.0 [facility] Comment on above: Order Comment: Speci men Type: BLOOD SPECIMENOrdering Facility: [facility] Address: [address] [place] [address] Performed By: #### 5 7021-8 ####[facility] SHERRIHUDSONNCLIA [id number] [place] [address] [place] MCV (RBC) [Entitic vol] 92.7 fL Normal 80.0-100.0 C [facility] Comment on above: Order Comment: Speci men Type: BLOOD SPECIMENOrdering Facility: [facility] Address: [address] [place] [address] Performed By: #### 5 7021-8 ####[facility] MEDICAL CENTERLIA [id number] [place] [address] [place] Monocytes (Bld) [#/Vol] 0.21 10*3/uL Normal <0.87 [facility] Comment on above: Order Comment: Speci men Type: BLOOD SPECIMENOrdering Facility: [facility] Address: [address] [place] [address] Performed By: #### 5 7021-8 ####[facility] MEDICAL CENTERLIA [id number] [place] [address] [place] Monocytes/100 WBC (Bld) 5.3 % Normal C [facility] Comment on above: Order Comment: Speci men Type: BLOOD SPECIMENOrdering Facility: [facility] Address: [address] [place] [address] Performed By: #### 5 7021-8 ####[facility] MED[facility] CENTERLIA [id number] [place] [address] [place] Neutrophils (Bld) [#/Vol] 2.82 10*3/uL Normal 1.45-7.50 [facility] Comment on above: Order Comment: Speci men Type: BLOOD SPECIMENOrdering Facility: [facility] Address: [address] [place] [address] Performed By: #### 5 7021-8 ####[facility] MED[facility] CENTERLIA [id number] [place] [address] [place] Neutrophils/100 WBC (Bld) 71.6 % Normal [facility] Comment on above: Order Comment: Speci men Type: BLOOD SPECIMENOrdering Facility: [facility] Address: [address] [place] [address] Performed By: #### 5 7021-8 ####[facility] [id number] [place] [address] [place] Nucleated RBC (Bld) [#/Vol] 10*3/uL Normal <0.01 [facility] Comment on above: Order Comment: Speci men Type: BLOOD SPECIMENOrdering Facility: [facility] Address: [address] [place] [address] Performed By: #### 5 7021-8 ####[facility]ITALNC[facility] [id number] [place] [address] [place] Nucleated RBC/100 WBC (Bld) [Ratio] 0.0 /100 WBC Normal [facility] Comment on above: Order Comment: Speci men Type: BLOOD SPECIMENOrdering Facility: [facility] Address: [address] [place] [address] Performed By: #### 5 7021-8 ####[facility] [id number] [place] [address] [place] Platelet mean volume (Bld) [Entitic vol] 10.2 fL Normal 9.0-12.7 [facility] Comment on above: Order Comment: Speci men Type: BLOOD SPECIMENOrdering Facility: [facility] Address: [address] [place] [address] Performed By: #### 5 7021-8 ####[facility] HOSPITALNCLI [id number] [place] [address] [place] Platelets (Bld) [#/Vol] 132 10*3/uL Low 150-400 [facility] Comment on above: Order Comment: Speci men Type: BLOOD SPECIMENOrdering Facility: [facility] Address: [address] [place] [address] Performed By: #### 5 7021-8 ####[facility] SHERRIVidhyaNCLIA [id number] [place] [address] [place] RBC (Bld) [#/Vol] 2.46 10*6/uL Low 4.20-6.00 [facility] Comment on above: Order Comment: Speci men Type: BLOOD SPECIMENOrdering Facility: [facility] Address: [address] [place] [address] Performed By: #### 5 7021-8 ####[facility] HOSPITALNCLIA [id number] [place] [address] [place] WBC (Bld) [#/Vol] 3.94 10*3/uL Normal 3.70-11.00 [facility] Comment on above: Order Comment: Speci men Type: BLOOD SPECIMENOrdering Facility: [facility] Address: [address] [place] [address] Performed By: #### 5 7021-8 ####[facility] HOSPITALNCLIA [id number] [place] [address] [place] CNPNon 04-07-2025 CNPN Normal [facility] Comprehensive metabolic 2000 panelon 04-07-2025 Albumin [Mass/Vol] 4.3 g/dL Normal 3.9-4.9 [facility] Comment on above: Order Comment: Speci men Type: BLOOD SPECIMENOrdering Facility: [facility] Address: [address] [place] [address] Performed By: #### 2 4323-8 ####[facility] HOSPITALNCLIA [id number] [place] [address] [place] ALP [Catalytic activity/Vol] 75 U/L Normal 38-113 [facility] Comment on above: Order Comment: Speci men Type: BLOOD SPECIMENOrdering Facility: [facility] Address: [address] [place] [address] Performed By: #### 2 4323-8 ####[facility] SHERRITOWNCLIA [id number] [place] [address] [place] ALT [Catalytic activity/Vol] 45 U/L Normal 10-54 [facility] Comment on above: Order Comment: Speci men Type: BLOOD SPECIMENOrdering Facility: [facility] Address: [address] [place] [address] Performed By: #### 2 4323-8 ####[facility] HOSPITALWNCLIA [id number] [place] [address] [place] Anion gap [Moles/Vol] 11 mmol/L Normal 8-15 [facility] Comment on above: Order Comment: Speci men Type: BLOOD SPECIMENOrdering Facility: [facility] Address: [address] [place] [address] Performed By: #### 2 4323-8 ####[facility] HOSPITALWNCLIA [id number] [place] [address] [place] AST [Catalytic activity/Vol] 35 U/L Normal 14-40 [facility] Comment on above: Order Comment: Speci men Type: BLOOD SPECIMENOrdering Facility: [facility] Address: [address] [place] [address] Performed By: #### 2 4323-8 ####[facility] HOSPITALWNCLIA [id number] [place] [address] [place] Bilirubin [Mass/Vol] 1.1 mg/dL Normal 0.2-1.3 [facility] Comment on above: Order Comment: Speci men Type: BLOOD SPECIMENOrdering Facility: [facility] Address: [address] [place] [address] Performed By: #### 2 4323-8 ####[facility] GABBY MILLTOWNCLIA [id number] [place] [address] [place] Calcium [Mass/Vol] 9.5 mg/dL Normal 8.5-10.2 [facility] Comment on above: Order Comment: Speci men Type: BLOOD SPECIMENOrdering Facility: [facility] Address: [address] [place] [address] Performed By: #### 2 4323-8 ####[facility] MILLTOWNCLIA [id number] [place] [address] [place] Chloride [Moles/Vol] 101 mmol/L Normal 98-107 [facility] Comment on above: Order Comment: Speci men Type: BLOOD SPECIMENOrdering Facility: [facility] Address: [address] [place] [address] Performed By: #### 2 4323-8 ####[facility] HOSPITALNCLIA [id number] [place] [address] [place] CO2 [Moles/Vol] 24 mmol/L Normal 22-30 [facility] Comment on above: Order Comment: Speci men Type: BLOOD SPECIMENOrdering Facility: [facility] Address: [address] [place] [address] Performed By: #### 2 4323-8 ####[facility] MILLTOWNCLIA [id number] [place] [address] [place] Creatinine [Mass/Vol] 0.69 mg/dL Low 0.73-1.22 [facility] Comment on above: Order Comment: Speci men Type: BLOOD SPECIMENOrdering Facility: [facility] Address: [address] [place] [address] Performed By: #### 2 4323-8 ####[facility] MILLWNCLIA [id number] [place] [address] [place] Creatinine and Glomerular filtration rate.predicted panel (S/P/Bld) 94 mL/min/1.73m??? Normal >=60 [facility] Comment on above: Order Comment: Gilma ojeda Type: BLOOD SPECIMENOrdering Facility: [facility] Address: [address] [place] [address] Result Comment: Lilly mated Glomerular Filtration Rate [...] actual GFR. Performed By: #### 2 4323-8 ####[facility] HOSPITALROCKYOREM COMMUNITY [facility] [id number] [place] [address] [place] Glucose [Mass/Vol] 131 mg/dL High 74-99 [facility] Comment on above: Order Comment: Gilma ojeda Type: BLOOD SPECIMENOrdering Facility: [facility] Address: [address] [place] [address] Result Comment: The [place] Diabetes Association (ADA) provides guidance for cutoff [...] Standards of Medical Care in Diabetes 2016, [place] [employer]. Diabetes Care. 2016.39(Suppl 1). Performed By: #### 2 4323-8 ####[facility]ITALNC[facility] [id number] [place] [address] [place] Potassium [Moles/Vol] 4.4 mmol/L Normal 3.7-5.1 [facility] Comment on above: Order Comment: Speci men Type: BLOOD SPECIMENOrdering Facility: [facility] Address: [address] [place] [address] Performed By: #### 2 4323-8 ####[facility] BECKYNCLIA [id number] [place] [address] [place] Protein [Mass/Vol] 6.6 g/dL Normal 6.3-8.0 [facility] Comment on above: Order Comment: Speci men Type: BLOOD SPECIMENOrdering Facility: [facility] Address: [address] [place] [address] Performed By: #### 2 4323-8 ####[facility] HOSPITALNCLIA [id number] [address] [place] Sodium [Moles/Vol] 136 mmol/L Normal 136-144 [facility] Comment on above: Order Comment: Speci men Type: BLOOD SPECIMENOrdering Facility: [facility] Address: [address] [place] [address] Performed By: #### 2 4323-8 ####[facility] HOSPITALNCLIA [id number] [address] [place] Urea nitrogen [Mass/Vol] 11 mg/dL Normal 9-24 [facility] Comment on above: Order Comment: Speci men Type: BLOOD SPECIMENOrdering Facility: [facility] Address: [address] [place] [address] Performed By: #### 2 4323-8 ####[facility] HOSPITALNCLIA [id number] [place] [address] [place] Type AND Screenon 04-07-2025 ABO and Rh group Nom (Bld) Blood group B Rh(D) positive Normal [facility] Comment on above: Order Comment: PRETR ANSFUSION HGB = 7.7 HCT = 22.4 PERFORMED AT [facility] N 08/26/2025 @ 0800 N Y A Performed By: #### B MIRIAN BTS #### [facility] [address] [place], [place], [address] Ab SCREEN GEL Negative Normal [facility] Comment on above: Order Comment: PRETR ANSFUSION HGB = 7.7 HCT = 22.4 [facility] 08/26/2025 @ 0800 N Y A Performed By: #### B MIRIAN BTS #### [facility] [address] [place], [place], [address] BRCon 03-24-2025 RC Normal [facility] Comment on above: Result Comment: [id number] BP RC TRANSFUSED 03/25/25 0834 Performed By: #### B ARNIE VELAS #### [facility] [address] [place], [place], [address] CBC W Auto Differential pane l (Bld)on 03-24-2025 Basophils (Bld) [#/Vol] 10*3/uL Normal <0.11 C [facility] Comment on above: Order Comment: Speci men Type: BLOOD SPECIMENOrdering Facility: [facility] Address: [address] [place] [address] Performed By: #### 5 7021-8 ####[facility] [id number] [place] [address] [place] Basophils/100 WBC (Bld) 0.5 % Normal [facility] Comment on above: Order Comment: Speci men Type: BLOOD SPECIMENOrdering Facility: [facility] Address: [address] [place] [address] Performed By: #### 5 7021-8 ####[facility] [id number] [place] [address] [place] Differential cell count method Nom (Bld) Auto Normal [facility] Comment on above: Order Comment: Speci men Type: BLOOD SPECIMENOrdering Facility: [facility] Address: [address] [place] [address] Performed By: #### 5 7021-8 ####[facility] MILLWNCLIA [id number] [place] [address] [place] Eosinophils (Bld) [#/Vol] 0.04 10*3/uL Normal <0.46 [facility] Comment on above: Order Comment: Speci men Type: BLOOD SPECIMENOrdering Facility: [facility] Address: [address] [place] [address] Performed By: #### 5 7021-8 ####[facility] HOSPITALWMDLIA [id number] [place] [address] [place] Eosinophils/100 WBC (Bld) 1.0 % Normal [facility] Comment on above: Order Comment: Speci men Type: BLOOD SPECIMENOrdering Facility: [facility] Address: [address] [place] [address] Performed By: #### 5 7021-8 ####[facility] MED[facility] CENTERLIA [id number] [place] [address] [place] Erythrocyte distribution width (RBC) [Ratio] 18.2 % High 11.5-15.0 [facility] Comment on above: Order Comment: Speci men Type: BLOOD SPECIMENOrdering Facility: [facility] Address: [address] [place] [address] Performed By: #### 5 7021-8 ####[facility] HOSPITALNCLIA [id number] [place] [address] [place] Hematocrit (Bld) [Volume fraction] 25.1 % Low 39.0-51.0 [facility] Comment on above: Order Comment: Speci men Type: BLOOD SPECIMENOrdering Facility: [facility] Address: [address] [place] [address] Performed By: #### 5 7021-8 ####[facility] CENTERLIA [id number] [place] [address] [place] Hemoglobin (Bld) [Mass/Vol] 8.3 g/dL Low 13.0-17.0 [facility] Comment on above: Order Comment: Speci men Type: BLOOD SPECIMENOrdering Facility: [facility] Address: [address] [place] [address] Performed By: #### 5 7021-8 ####[facility] CENTERLIA [id number] [place] [address] [place] Immature granulocytes (Bld) [#/Vol] 10*3/uL Normal <0.10 [facility] Comment on above: Order Comment: Speci men Type: BLOOD SPECIMENOrdering Facility: [facility] Address: [address] [place] [address] Performed By: #### 5 7021-8 ####[facility] [id number] [place] [address] [place] Immature granulocytes/100 WBC (Bld) 0.5 % Normal [facility] Comment on above: Order Comment: Speci men Type: BLOOD SPECIMENOrdering Facility: [facility] Address: [address] [place] [address] Performed By: #### 5 7021-8 ####[facility] CENTERLIA [id number] [place] [address] [place] Lymphocytes (Bld) [#/Vol] 0.92 10*3/uL Low 1.00-4.00 [facility] Comment on above: Order Comment: Speci men Type: BLOOD SPECIMENOrdering Facility: [facility] Address: [address] [place] [address] Performed By: #### 5 7021-8 ####[facility] CENTERLIA [id number] [place] [address] [place] Lymphocytes/100 WBC (Bld) 23.2 % Normal [facility] Comment on above: Order Comment: Speci men Type: BLOOD SPECIMENOrdering Facility: [facility] Address: [address] [place] [address] Performed By: #### 5 7021-8 ####[facility] SHERRIHUDSONNCSAURABH [id number] [place] [address] [place] MCH (RBC) [Entitic mass] 30.9 pg Normal 26.0-34.0 [facility] Comment on above: Order Comment: Speci men Type: BLOOD SPECIMENOrdering Facility: [facility] Address: [address] [place] [address] Performed By: #### 5 7021-8 ####[facility] [id number] [place] [address] [place] MCHC (RBC) [Mass/Vol] 33.1 g/dL Normal 30.5-36.0 [facility] Comment on above: Order Comment: Speci men Type: BLOOD SPECIMENOrdering Facility: [facility] Address: [address] [place] [address] Performed By: #### 5 7021-8 ####[facility] HOSPITALNCA [id number] [address] [place] MCV (RBC) [Entitic vol] 93.3 fL Normal 80.0-100.0 C [facility] Comment on above: Order Comment: Speci men Type: BLOOD SPECIMENOrdering Facility: [facility] Address: [address] [place] [address] Performed By: #### 5 7021-8 ####[facility] HOSPITALNCA [id number] [place] [address] [place] Monocytes (Bld) [#/Vol] 0.21 10*3/uL Normal <0.87 [facility] Comment on above: Order Comment: Speci men Type: BLOOD SPECIMENOrdering Facility: [facility] Address: [address] [place] [address] Performed By: #### 5 7021-8 ####[facility] HOSPITALNCLIA [id number] [place] [address] [place] Monocytes/100 WBC (Bld) 5.3 % Normal [facility] Comment on above: Order Comment: Speci men Type: BLOOD SPECIMENOrdering Facility: [facility] Address: [address] [place] [address] Performed By: #### 5 7021-8 ####[facility] HOSPITALNCLIA [id number] [place] [address] [place] Neutrophils (Bld) [#/Vol] 2.76 10*3/uL Normal 1.45-7.50 [facility] Comment on above: Order Comment: Speci men Type: BLOOD SPECIMENOrdering Facility: [facility] Address: [address] [place] [address] Performed By: #### 5 7021-8 ####[facility]ENTERA [id number] [place] [address] [place] Neutrophils/100 WBC (Bld) 69.5 % Normal [facility] Comment on above: Order Comment: Speci men Type: BLOOD SPECIMENOrdering Facility: [facility] Address: [address] [place] [address] Performed By: #### 5 7021-8 ####[facility] MEDICAL CENTERLIA [id number] [place] [address] [place] Nucleated RBC (Bld) [#/Vol] 10*3/uL Normal <0.01 [facility] Comment on above: Order Comment: Speci men Type: BLOOD SPECIMENOrdering Facility: [facility] Address: [address] [place] [address] Performed By: #### 5 7021-8 ####[facility] MEDICAL CENTERLIA [id number] [place] [address] [place] Nucleated RBC/100 WBC (Bld) [Ratio] 0.0 /100 WBC Normal [facility] Comment on above: Order Comment: Speci men Type: BLOOD SPECIMENOrdering Facility: [facility] Address: [address] [place] [address] Performed By: #### 5 7021-8 ####[facility] SHERRIHUDSONLUISITO [id number] [place] [address] [place] Platelet mean volume (Bld) [Entitic vol] 10.8 fL Normal 9.0-12.7 [facility] Comment on above: Order Comment: Speci men Type: BLOOD SPECIMENOrdering Facility: [facility] Address: [address] [place] [address] Performed By: #### 5 7021-8 ####[facility] HOSPITALROCKYOREM COMM[facility] [id number] [place] [address] [place] Platelets (Bld) [#/Vol] 134 10*3/uL Low 150-400 [facility] Comment on above: Order Comment: Speci men Type: BLOOD SPECIMENOrdering Facility: [facility] Address: [address] [place] [address] Performed By: #### 5 7021-8 ####[facility] COMM[facility] HOSPITALROCKYSAURABH [id number] [place] [address] [place] RBC (Bld) [#/Vol] 2.69 10*6/uL Low 4.20-6.00 [facility] Comment on above: Order Comment: Speci men Type: BLOOD SPECIMENOrdering Facility: [facility] Address: [address] [place] [address] Performed By: #### 5 7021-8 ####[facility] HOSPITALNCLIA [id number] [place] [address] [place] WBC (Bld) [#/Vol] 3.97 10*3/uL Normal 3.70-11.00 [facility] Comment on above: Order Comment: Speci men Type: BLOOD SPECIMENOrdering Facility: [facility] Address: [address] [place] [address] Performed By: #### 5 7021-8 ####[facility]ITALNC[facility] [id number] [place] [address] [place] CNPNon 03-24-2025 CNPN Normal [facility] Type AND Screenon 03-24-2025 ABO and Rh group Nom (Bld) Blood group B Rh(D) positive Normal [facility] Comment on above: Order Comment: PRETR ANSFUSION HGB = 7.7 HCT = 22.4 [facility]/26/2025 @ 0800 N Y A Performed By: #### B RC, BTS #### [facility] [address] [place], [address] BRCon 03-10-2025 RC Normal [facility] Comment on above: Result Comment: [id number] OP RC TRANSFUSED 03/11/25 1105 [id number] OP RC TRANSFUSED 03/11/25 0829 Performed By: #### B TS, BR #### [facility] [address] [place], [address] CBC W Auto Differential pane l (Bld)on 03-10-2025 Basophils (Bld) [#/Vol] 10*3/uL Normal <0.11 C [facility] Comment on above: Order Comment: Speci men Type: BLOOD SPECIMENOrdering Facility: [facility] Address: [place] [address] Performed By: #### 5 7021-8 ####[facility] [id number] [place] [address] [place] Basophils/100 WBC (Bld) 0.3 % Normal C [facility] Comment on above: Order Comment: Speci men Type: BLOOD SPECIMENOrdering Facility: [facility] Address: [address] [place] [address] Performed By: #### 5 7021-8 ####[facility] BECKYELLIEA [id number] [place] [address] [place] Differential cell count method Nom (Bld) Auto Normal [facility] Comment on above: Order Comment: Speci men Type: BLOOD SPECIMENOrdering Facility: [facility] Address: [address] [place] [address] Performed By: #### 5 7021-8 ####[facility] SHERRIJEFEA [id number] [place] [address] [place] Eosinophils (Bld) [#/Vol] 0.07 10*3/uL Normal <0.46 [facility] Comment on above: Order Comment: Speci men Type: BLOOD SPECIMENOrdering Facility: [facility] Address: [address] [place] [address] Performed By: #### 5 7021-8 ####[facility] SHERRIHUDSONELLIEA [id number] [place] [address] [place] Eosinophils/100 WBC (Bld) 2.0 % Normal [facility] Comment on above: Order Comment: Speci men Type: BLOOD SPECIMENOrdering Facility: [facility] Address: [address] [place] [address] Performed By: #### 5 7021-8 ####[facility] SHERRIVidhayROCKYLIA [id number] [place] [address] [place] Erythrocyte distribution width (RBC) [Ratio] 17.7 % High 11.5-15.0 [facility] Comment on above: Order Comment: Speci men Type: BLOOD SPECIMENOrdering Facility: [facility] Address: [address] [place] [address] Performed By: #### 5 7021-8 ####[facility] [id number] [place] [address] [place] Hematocrit (Bld) [Volume fraction] 25.0 % Low 39.0-51.0 [facility] Comment on above: Order Comment: Speci men Type: BLOOD SPECIMENOrdering Facility: [facility] Address: [address] [place] [address] Performed By: #### 5 7021-8 ####[facility] [id number] [place] [address] [place] Hemoglobin (Bld) [Mass/Vol] 8.2 g/dL Low 13.0-17.0 [facility] Comment on above: Order Comment: Speci men Type: BLOOD SPECIMENOrdering Facility: [facility] Address: [address] [place] [address] Performed By: #### 5 7021-8 ####[facility] [id number] [place] [address] [place] Immature granulocytes (Bld) [#/Vol] 10*3/uL Normal <0.10 [facility] Comment on above: Order Comment: Speci men Type: BLOOD SPECIMENOrdering Facility: [facility] Address: [address] [place] [address] Performed By: #### 5 7021-8 ####[facility] [id number] [place] [address] [place] Immature granulocytes/100 WBC (Bld) 0.6 % Normal [facility] Comment on above: Order Comment: Speci men Type: BLOOD SPECIMENOrdering Facility: [facility] Address: [address] [place] [address] Performed By: #### 5 7021-8 ####[facility] HOSPITALNCLIA [id number] [place] [address] [place] Lymphocytes (Bld) [#/Vol] 0.67 10*3/uL Low 1.00-4.00 [facility] Comment on above: Order Comment: Speci men Type: BLOOD SPECIMENOrdering Facility: [facility] Address: [address] [place] [address] Performed By: #### 5 7021-8 ####[facility]ITAL[facility] [id number] [place] [address] [place] Lymphocytes/100 WBC (Bld) 18.8 % Normal [facility] Comment on above: Order Comment: Speci men Type: BLOOD SPECIMENOrdering Facility: [facility] Address: [address] [place] [address] Performed By: #### 5 7021-8 ####[facility]ITALNC[facility] [id number] [place] [address] [place] MCH (RBC) [Entitic mass] 31.2 pg Normal 26.0-34.0 [facility] Comment on above: Order Comment: Speci men Type: BLOOD SPECIMENOrdering Facility: [facility] Address: [address] [place] [address] Performed By: #### 5 7021-8 ####[facility] [id number] [place] [address] [place] MCHC (RBC) [Mass/Vol] 32.8 g/dL Normal 30.5-36.0 [facility] Comment on above: Order Comment: Speci men Type: BLOOD SPECIMENOrdering Facility: [facility] Address: [address] [place] [address] Performed By: #### 5 7021-8 ####[facility] [id number] [place] [address] [place] MCV (RBC) [Entitic vol] 95.1 fL Normal 80.0-100.0 C [facility] Comment on above: Order Comment: Speci men Type: BLOOD SPECIMENOrdering Facility: [facility] Address: [address] [place] [address] Performed By: #### 5 7021-8 ####[facility] MILLTOWNCLIA [id number] [place] [address] [place] Monocytes (Bld) [#/Vol] 0.13 10*3/uL Normal <0.87 [facility] Comment on above: Order Comment: Speci men Type: BLOOD SPECIMENOrdering Facility: [facility] Address: [address] [place] [address] Performed By: #### 5 7021-8 ####[facility] HOSPITALWNCLIA [id number] [place] [address] [place] Monocytes/100 WBC (Bld) 3.6 % Normal [facility] Comment on above: Order Comment: Speci men Type: BLOOD SPECIMENOrdering Facility: [facility] Address: [address] [place] [address] Performed By: #### 5 7021-8 ####[facility] HOSPITALWNCLIA [id number] [place] [address] [place] Neutrophils (Bld) [#/Vol] 2.67 10*3/uL Normal 1.45-7.50 [facility] Comment on above: Order Comment: Speci men Type: BLOOD SPECIMENOrdering Facility: [facility] Address: [address] [place] [address] Performed By: #### 5 7021-8 ####[facility] MILLTOWNCLIA [id number] [place] [address] [place] Neutrophils/100 WBC (Bld) 74.7 % Normal [facility] Comment on above: Order Comment: Speci men Type: BLOOD SPECIMENOrdering Facility: [facility] Address: [address] [place] [address] Performed By: #### 5 7021-8 ####[facility] [id number] [place] [address] [place] Nucleated RBC (Bld) [#/Vol] 10*3/uL Normal <0.01 [facility] Comment on above: Order Comment: Speci men Type: BLOOD SPECIMENOrdering Facility: [facility] Address: [address] [place] [address] Performed By: #### 5 7021-8 ####[facility] [id number] [place] [address] [place] Nucleated RBC/100 WBC (Bld) [Ratio] 0.0 /100 WBC Normal [facility] Comment on above: Order Comment: Speci men Type: BLOOD SPECIMENOrdering Facility: [facility] Address: [address] [place] [address] Performed By: #### 5 7021-8 ####[facility] [id number] [place] [address] [place] Platelet mean volume (Bld) [Entitic vol] 9.8 fL Normal 9.0-12.7 [facility] Comment on above: Order Comment: Speci men Type: BLOOD SPECIMENOrdering Facility: [facility] Address: [address] [place] [address] Performed By: #### 5 7021-8 ####[facility] [id number] [place] [address] [place] Platelets (Bld) [#/Vol] 122 10*3/uL Low 150-400 [facility] Comment on above: Order Comment: Speci men Type: BLOOD SPECIMENOrdering Facility: [facility] Address: [address] [place] [address] Performed By: #### 5 7021-8 ####[facility] CENTERLIA [id number] [place] [address] [place] RBC (Bld) [#/Vol] 2.63 10*6/uL Low 4.20-6.00 [facility] Comment on above: Order Comment: Speci men Type: BLOOD SPECIMENOrdering Facility: [facility] Address: [address] [place] [address] Performed By: #### 5 7021-8 ####[facility] [id number] [place] [address] [place] WBC (Bld) [#/Vol] 3.57 10*3/uL Low 3.70-11.00 [facility] Comment on above: Order Comment: Speci men Type: BLOOD SPECIMENOrdering Facility: [facility] Address: [address] [place] [address] Performed By: #### 5 7021-8 ####[facility] [id number] [place] [address] [place] CNPNon 03-10-2025 CNPN Normal [facility] Type AND Screenon 03-10-2025 Ab SCREEN GEL Negative Normal [facility] Comment on above: Order Comment: N 03/11/2025 N Y A Performed By: #### DOMONIQUE CISSE #### [facility] [address] [place], [place], [address] CNOVon 03-04-2025 CNOV Normal [facility] BRCon 02-24-2025 RC Normal [facility] Comment on above: Result Comment: [id number] BN RC TRANSFUSED 02/25/25 0845 [id number] BN RC TRANSFUSED 02/25/25 1112 Performed By: #### DOMONIQUE CISSE #### [facility] [address] [place], [place], [address] CBC W Auto Differential pane l (Bld)on 02-24-2025 Basophils (Bld) [#/Vol] 10*3/uL Normal <0.11 C [facility] Comment on above: Order Comment: Speci men Type: BLOOD SPECIMENOrdering Facility: [facility] Address: [address] [place] [address] Performed By: #### 5 7021-8 ####[facility] MILLWNCLIA [id number] [place] [address] [place] Basophils/100 WBC (Bld) 0.3 % Normal [facility] Comment on above: Order Comment: Speci men Type: BLOOD SPECIMENOrdering Facility: [facility] Address: [address] [place] [address] Performed By: #### 5 7021-8 ####[facility] HOSPITALNCLIA [id number] [place] [address] [place] Differential cell count method Nom (Bld) Auto Normal [facility] Comment on above: Order Comment: Speci men Type: BLOOD SPECIMENOrdering Facility: [facility] Address: [address] [place] [address] Performed By: #### 5 7021-8 ####[facility] CENTERLIA [id number] [place] [address] [place] Eosinophils (Bld) [#/Vol] 0.03 10*3/uL Normal <0.46 [facility] Comment on above: Order Comment: Speci men Type: BLOOD SPECIMENOrdering Facility: [facility] Address: [address] [place] [address] Performed By: #### 5 7021-8 ####[facility] MILLWNCLIA [id number] [place] [address] [place] Eosinophils/100 WBC (Bld) 0.9 % Normal [facility] Comment on above: Order Comment: Speci men Type: BLOOD SPECIMENOrdering Facility: [facility] Address: [address] [place] [address] Performed By: #### 5 7021-8 ####[facility] MILLWNCLIA [id number] [place] [address] [place] Erythrocyte distribution width (RBC) [Ratio] 18.9 % High 11.5-15.0 [facility] Comment on above: Order Comment: Speci men Type: BLOOD SPECIMENOrdering Facility: [facility] Address: [address] [place] [address] Performed By: #### 5 7021-8 ####[facility] HOSPITALLUISITO [id number] [place] [address] [place] Hematocrit (Bld) [Volume fraction] 24.6 % Low 39.0-51.0 [facility] Comment on above: Order Comment: Speci men Type: BLOOD SPECIMENOrdering Facility: [facility] Address: [address] [place] [address] Performed By: #### 5 7021-8 ####[facility] COMM[facility] HOSPITALLUISITO [id number] [place] [address] [place] Hemoglobin (Bld) [Mass/Vol] 8.2 g/dL Low 13.0-17.0 [facility] Comment on above: Order Comment: Speci men Type: BLOOD SPECIMENOrdering Facility: [facility] Address: [address] [place] [address] Performed By: #### 5 7021-8 ####[facility] HOSPITALLUISITO [id number] [place] [address] [place] Immature granulocytes (Bld) [#/Vol] 10*3/uL Normal <0.10 [facility] Comment on above: Order Comment: Speci men Type: BLOOD SPECIMENOrdering Facility: [facility] Address: [address] [place] [address] Performed By: #### 5 7021-8 ####[facility] HOSPITALNCLIDarrick [id number] [place] [address] [place] Immature granulocytes/100 WBC (Bld) 0.6 % Normal [facility] Comment on above: Order Comment: Speci men Type: BLOOD SPECIMENOrdering Facility: [facility] Address: [address] [place] [address] Performed By: #### 5 7021-8 ####[facility] [id number] [place] [address] [place] Lymphocytes (Bld) [#/Vol] 0.63 10*3/uL Low 1.00-4.00 [facility] Comment on above: Order Comment: Speci men Type: BLOOD SPECIMENOrdering Facility: [facility] Address: [address] [place] [address] Performed By: #### 5 7021-8 ####[facility] [id number] [place] [address] [place] Lymphocytes/100 WBC (Bld) 19.3 % Normal [facility] Comment on above: Order Comment: Speci men Type: BLOOD SPECIMENOrdering Facility: [facility] Address: [address] [place] [address] Performed By: #### 5 7021-8 ####[facility] [id number] [place] [address] [place] MCH (RBC) [Entitic mass] 31.3 pg Normal 26.0-34.0 [facility] Comment on above: Order Comment: Speci men Type: BLOOD SPECIMENOrdering Facility: [facility] Address: [address] [place] [address] Performed By: #### 5 7021-8 ####[facility]ENTERA [id number] [place] [address] [place] MCHC (RBC) [Mass/Vol] 33.3 g/dL Normal 30.5-36.0 [facility] Comment on above: Order Comment: Speci men Type: BLOOD SPECIMENOrdering Facility: [facility] Address: [address] [place] [address] Performed By: #### 5 7021-8 ####[facility] SHERRIJENNILIA [id number] [place] [address] [place] MCV (RBC) [Entitic vol] 93.9 fL Normal 80.0-100.0 C [facility] Comment on above: Order Comment: Speci men Type: BLOOD SPECIMENOrdering Facility: [facility] Address: [address] [place] [address] Performed By: #### 5 7021-8 ####[facility] HOSPITALNCLIA [id number] [place] [address] [place] Monocytes (Bld) [#/Vol] 0.14 10*3/uL Normal <0.87 [facility] Comment on above: Order Comment: Speci men Type: BLOOD SPECIMENOrdering Facility: [facility] Address: [address] [place] [address] Performed By: #### 5 7021-8 ####[facility] CENTERLIA [id number] [place] [address] [place] Monocytes/100 WBC (Bld) 4.3 % Normal C [facility] Comment on above: Order Comment: Speci men Type: BLOOD SPECIMENOrdering Facility: [facility] Address: [address] [place] [address] Performed By: #### 5 7021-8 ####[facility] CENTERLIA [id number] [place] [address] [place] Neutrophils (Bld) [#/Vol] 2.44 10*3/uL Normal 1.45-7.50 [facility] Comment on above: Order Comment: Speci men Type: BLOOD SPECIMENOrdering Facility: [facility] Address: [address] [place] [address] Performed By: #### 5 7021-8 ####[facility] CENTERLIA [id number] [place] [address] [place] Neutrophils/100 WBC (Bld) 74.6 % Normal [facility] Comment on above: Order Comment: Speci men Type: BLOOD SPECIMENOrdering Facility: [facility] Address: [address] [place] [address] Performed By: #### 5 7021-8 ####[facility] [id number] [place] [address] [place] Nucleated RBC (Bld) [#/Vol] 10*3/uL Normal <0.01 [facility] Comment on above: Order Comment: Speci men Type: BLOOD SPECIMENOrdering Facility: [facility] Address: [address] [place] [address] Performed By: #### 5 7021-8 ####[facility] [id number] [place] [address] [place] Nucleated RBC/100 WBC (Bld) [Ratio] 0.0 /100 WBC Normal [facility] Comment on above: Order Comment: Speci men Type: BLOOD SPECIMENOrdering Facility: [facility] Address: [address] [place] [address] Performed By: #### 5 7021-8 ####[facility] [id number] [place] [address] [place] Platelet mean volume (Bld) [Entitic vol] 10.6 fL Normal 9.0-12.7 [facility] Comment on above: Order Comment: Speci men Type: BLOOD SPECIMENOrdering Facility: [facility] Address: [address] [place] [address] Performed By: #### 5 7021-8 ####[facility] CENTERLI [id number] [place] [address] [place] Platelets (Bld) [#/Vol] 134 10*3/uL Low 150-400 [facility] Comment on above: Order Comment: Speci men Type: BLOOD SPECIMENOrdering Facility: [facility] Address: [address] [place] [address] Performed By: #### 5 7021-8 ####[facility] SHERRITOWNCLIA [id number] [place] [address] [place] RBC (Bld) [#/Vol] 2.62 10*6/uL Low 4.20-6.00 [facility] Comment on above: Order Comment: Speci men Type: BLOOD SPECIMENOrdering Facility: [facility] Address: [address] [place] [address] Performed By: #### 5 7021-8 ####[facility]CL[facility] [id number] [place] [address] [place] WBC (Bld) [#/Vol] 3.27 10*3/uL Low 3.70-11.00 [facility] Comment on above: Order Comment: Speci men Type: BLOOD SPECIMENOrdering Facility: [facility] Address: [address] [place] [address] Performed By: #### 5 7021-8 ####[facility]ITAL[facility]CLIA [id number] [place] [address] [place] CNOVSPon 02-24-2025 CNOVSP Normal [facility] CNPNon 02-24-2025 CNPN Normal [facility] Comprehensive metabolic 2000 panelon 02-24-2025 Albumin [Mass/Vol] 4.5 g/dL Normal 3.9-4.9 [facility] Comment on above: Order Comment: Speci men Type: BLOOD SPECIMENOrdering Facility: [facility] Address: [address] [place] [address] Performed By: #### 2 4323-8 ####[facility]ITALWNCLIA [id number] [place] [address] [place] ALP [Catalytic activity/Vol] 75 U/L Normal 38-113 [facility] Comment on above: Order Comment: Speci men Type: BLOOD SPECIMENOrdering Facility: [facility] Address: [address] [place] [address] Performed By: #### 2 4323-8 ####[facility] [id number] [place] [address] [place] ALT [Catalytic activity/Vol] 61 U/L High 10-54 [facility] Comment on above: Order Comment: Speci men Type: BLOOD SPECIMENOrdering Facility: [facility] Address: [address] [place] [address] Performed By: #### 2 4323-8 ####[facility] [id number] [place] [address] [place] Anion gap [Moles/Vol] 10 mmol/L Normal 8-15 [facility] Comment on above: Order Comment: Speci men Type: BLOOD SPECIMENOrdering Facility: [facility] Address: [address] [place] [address] Performed By: #### 2 4323-8 ####[facility] [id number] [place] [address] [place] AST [Catalytic activity/Vol] 42 U/L High 14-40 [facility] Comment on above: Order Comment: Speci men Type: BLOOD SPECIMENOrdering Facility: [facility] Address: [address] [place] [address] Performed By: #### 2 4323-8 ####[facility] [id number] [place] [address] [place] Bilirubin [Mass/Vol] 1.5 mg/dL High 0.2-1.3 [facility] Comment on above: Order Comment: Speci men Type: BLOOD SPECIMENOrdering Facility: [facility] Address: [address] [place] [address] Performed By: #### 2 4323-8 ####[facility] MILLTOWNCLIA [id number] [place] [address] [place] Calcium [Mass/Vol] 9.8 mg/dL Normal 8.5-10.2 [facility] Comment on above: Order Comment: Speci men Type: BLOOD SPECIMENOrdering Facility: [facility] Address: [address] [place] [address] Performed By: #### 2 4323-8 ####[facility] MILLWNCLIA [id number] [place] [address] [place] Chloride [Moles/Vol] 101 mmol/L Normal 98-107 [facility] Comment on above: Order Comment: Speci men Type: BLOOD SPECIMENOrdering Facility: [facility] Address: [address] [place] [address] Performed By: #### 2 4323-8 ####[facility]ITALWNCLIA [id number] [place] [address] [place] CO2 [Moles/Vol] 26 mmol/L Normal 22-30 [facility] Comment on above: Order Comment: Speci men Type: BLOOD SPECIMENOrdering Facility: [facility] Address: [address] [place] [address] Performed By: #### 2 4323-8 ####[facility] MILLTOWNCLIA [id number] [place] [address] [place] Creatinine [Mass/Vol] 0.71 mg/dL Low 0.73-1.22 [facility] Comment on above: Order Comment: Speci men Type: BLOOD SPECIMENOrdering Facility: [facility] Address: [address] [place] [address] Performed By: #### 2 4323-8 ####[facility] MILLTOWNCLIA [id number] [place] [address] [place] Creatinine and Glomerular filtration rate.predicted panel (S/P/Bld) 93 mL/min/1.73m??? Normal >=60 [facility] Comment on above: Order Comment: Gilma ojeda Type: BLOOD SPECIMENOrdering Facility: [facility] Address: [address] [place] [address] Result Comment: Lilly mated Glomerular Filtration Rate [...] actual GFR. Performed By: #### 2 4323-8 ####[facility] [id number] [place] [address] [place] Glucose [Mass/Vol] 156 mg/dL High 74-99 [facility] Comment on above: Order Comment: Gilma ojeda Type: BLOOD SPECIMENOrdering Facility: [facility] Address: [address] [place] [address] Result Comment: The [place] Diabetes Association (ADA) provides guidance for cutoff [...] Standards of Medical Care in Diabetes 2016, [place] [employer]. Diabetes Care. 2016.39(Suppl 1). Performed By: #### 2 4323-8 ####[facility] [id number] [place] [address] [place] Potassium [Moles/Vol] 4.0 mmol/L Normal 3.7-5.1 [facility] Comment on above: Order Comment: Speci men Type: BLOOD SPECIMENOrdering Facility: [facility] Address: [address] [place] [address] Performed By: #### 2 4323-8 ####[facility]OSPITALWNCLIA [id number] [place] [address] [place] Protein [Mass/Vol] 6.6 g/dL Normal 6.3-8.0 [facility] Comment on above: Order Comment: Speci men Type: BLOOD SPECIMENOrdering Facility: [facility] Address: [address] [place] [address] Performed By: #### 2 4323-8 ####[facility]ITALNCA [id number] [place] [address] [place] Sodium [Moles/Vol] 137 mmol/L Normal 136-144 [facility] Comment on above: Order Comment: Speci men Type: BLOOD SPECIMENOrdering Facility: [facility] Address: [address] [place] [address] Performed By: #### 2 4323-8 ####[facility] H[facility]PITALNCLIA [id number] [place] [address] [place] Urea nitrogen [Mass/Vol] 12 mg/dL Normal 9-24 [facility] Comment on above: Order Comment: Speci men Type: BLOOD SPECIMENOrdering Facility: [facility] Address: [address] [place] [address] Performed By: #### 2 4323-8 ####[facility] H[facility]PITALNCLIA [id number] [place] [address] [place] Ferritin SerPl-mCncon 2024 Ferritin [Mass/Vol] 79423.0 ng/mL High 30.3-565.7 [facility] Comment on above: Order Comment: Speci men Type: BLOOD SPECIMENOrdering Facility: [facility] Address: [address] [place] [address] Performed By: #### 3 016-3, 2-9, 4-8, 6-4 ####[facility] LABCLIA [id number] [place] [address] [place] Folate SerPl-mCncon 02-25-20 25 Folate [Mass/Vol] ng/mL Normal >4.7 [facility] Comment on above: Order Comment: Speci men Type: BLOOD SPECIMENOrdering Facility: [facility] Address: [address] [place] [address] Result Comment: A re sult of > 20 ng/mL is not necessarily indicative of a pathologic or treatable condition: it reflects a limitation of the test methodology.Assay reference range: 4.8 to 24.2 ng/mL. Suitable for detection of folate deficiency.Reference:Folate III (Folate III) [package insert V 1.0 Slovak]. [facility], [place], [place]: September 2015. Performed By: #### 3 016-3, 2-9, 4-8, 6-4 ####[facility] LAB[facility] [id number] [place] [address] [place] Methylmalonate SerPl-sCncon 02-24-2025 Methylmalonate [Moles/Vol] 0.09 umol/L Normal <=0.40 [facility] Comment on above: Order Comment: [facility] Type: BLOOD SPECIMENOrdering Facility: [facility] Address: [address] [place] [address] Result Comment: This test was developed, and its performance characteristics determined by the [facility] Department of Pathology and Laboratory Medicine. It has not been cleared or approved by the FDA. The [facility] Department of Pathology and Laboratory Medicine is regulated under CLIA as qualified to perform high-complexity testing. This test is used for clinical purposes. It should not be regarded as investigational or for research. Performed By: #### 1 3964-2 ####[facility] LABCLIA [id number] [place] [address] [place] TSH SerPl-aCncon 02-24-2025 TSH Qn 4.180 m[IU]/L Normal 0.270-4.200 [facility] Comment on above: Order Comment: Speci men Type: BLOOD SPECIMENOrdering Facility: [facility] Address: [address] [place] [address] Performed By: #### 3 016-3, 2-9, 2284-8, 2276-4 ####[facility] LABCLIA [id number] [place] [id number] [place] Type AND Screenon 02-24-2025 Ab SCREEN GEL Negative Normal [facility] Comment on above: Order Comment: PRETR ANSFUSION HGB = 8.2 HCT = 24.6 PERFORMED AT [place] [address] @0830NYA Performed By: #### B RC, BTS #### [facility] [address] [place], [place], [address] Vit B12 SerPl-mCncon 025 Cobalamin (Vitamin B12) [Mass/Vol] 523 pg/mL Normal 232-1245 [facility] Comment on above: Order Comment: Speci men Type: BLOOD SPECIMENOrdering Facility: [facility] Address: [address] [place] [address] Performed By: #### 3 016-3, 2-9, 2284-8, 2276-4 ####[facility] LABCLIA [id number] [place] [id number] [place] CNPNon 02-11-2025 CNPN Normal [facility] Abdomen/Pelvis without Conto n 02-10-2025 Abdomen/Pelvis without Cont [facility] Imaging Services [address] [place], [place] [id number] Abdomen/Pelvis without Cont MR#: [id number] Acct: [id number] Name: LORETA HURST Rep #: [id number] : 1945 M 79 From: Bernadine Silva nd, MD PCP: Gladys Da Silva, [employer] Status: REG ER Study: Abdomen/Pelvis without Cont Date of Exam: 02/01 Exam# [id number] Ordering Dr: Esau Brothers DO PROCEDURE: ABDOMEN/PELVIS [...] etiology such as aspiration pneumonitis. Reading Location: [id number] CC: PAWAN Da Silva; Dr. Esau Brothers DO Animator: Signed Normal [facility] Absolute lymphocyte countOrd ered By: Esau Brothers on 02-10-2025 Lymphocytes Auto (Unsp spec) [#/Vol] 0.57 10*3/uL Low 0.83-4.51 [facility] Absolute neutrophil countOrd ered By: Esau Brothers on 02-10-2025 Neutrophils (Bld) [#/Vol] 2.6 10*3/uL 2.0-7.7 [facility] Anion gap in Serum or Plasma Ordered By: Esau Brothers on 02-10-2025 Anion gap [Moles/Vol] 9 mmol/L 5-[address] [facility] Automated lymphocyte count a s percentage of total leukocytesOrdered By: Esau Brothers on 02-10-2025 Lymphocytes/100 WBC Auto (Unsp spec) 16.4 % Low 19-41 [facility] BRCon 02-10-2025 RC Normal [facility] Comment on above: Result Comment: [id number] BN RC TRANSFUSED 02/11/25 0827 [id number] BN RC TRANSFUSED 02/11/25 1038 Performed By: #### B , BTS #### [facility] [address] [place], [address] BUN/creatinine ratioOrdered By: Esau Brothers on 02-10-2025 Urea nitrogen/Creatinine [Mass ratio] 14.7 mg/mg 10-20 [facility] Basic Metabolic Profile (BMP )on 02-10-2025 BUN/CRE 14.7 RATIO Normal 10-20 [facility] Comment on above: Performed By: #### B TS #### [facility] [address] [place], [address] Calcium [Mass/Vol] 9.3 mg/dL Normal 7.6-11.0 [facility] Comment on above: Performed By: #### B TS #### [facility] [address] [place], [address] Chloride [Moles/Vol] 103 mmol/L Normal 98-108 [facility] Comment on above: Performed By: #### B TS #### [facility] [address] [place], [address] CO2 [Moles/Vol] 26.7 mmol/L Normal 21.0-32.0 [facility] Comment on above: Performed By: #### B TS #### [facility] [address] [place], [address] Creatinine [Mass/Vol] 0.71 mg/dL Normal 0.70-1.[address] [facility] Comment on above: Performed By: #### B TS #### [facility] [address] [place], [address] ECRCL 77.15 ml/min Normal 50-250 [facility] Comment on above: Performed By: #### B TS #### [facility] [address] [place], [address] GAP 9 Normal 5-15 [facility] Comment on above: Performed By: #### B TS #### [facility] [address] [place], [address] GFR/1.73 sq M.predicted among non-blacks MDRD (S/P/Bld) [Vol rate/Area] 93 mL/min/{1.73_m2} Normal >60 [facility] Comment on above: Result Comment: mL/m in/1.73m2 CKD-EPI Creatinine Equation (2020) Performed By: #### B TS #### [facility] [address] [place], [address] Glucose [Mass/Vol] 104 mg/dL High 70-99 [facility] Comment on above: Performed By: #### B TS #### [facility] [address] [place], [address] Potassium [Moles/Vol] 4.4 mmol/L Normal 3.3-5.[address] [facility] Comment on above: Performed By: #### B TS #### [facility] [address] [place], [address] Sodium [Moles/Vol] 139 mmol/L Normal 133-145 [facility] Comment on above: Performed By: #### B TS #### [facility] [address] [place], [address] Urea nitrogen [Mass/Vol] 10 mg/dL Normal 4-19 [facility] Comment on above: Performed By: #### B TS #### [facility] [address] [place], [address] Basophil percentageOrdered B y: Esau Brothers on 02-10-2025 Basophils/100 WBC (Bld) 0.3 % 0-1 [facility] Bilirubin Test strip Ql (U)O rdered By: Esau Brothers on 02-10-2025 Bilirubin Ql (U) Negative Negative [facility] Bilirubin directOrdered By: Abrahan Dueñas on 02-10-2025 Bilirubin.direct [Mass/Vol] 0.57 mg/dL High 0.00-0.30 [facility] Bilirubin, totalOrdered By: Abrahan Dueñas on 02-10-2025 Bilirubin [Mass/Vol] 1.19 mg/dL 0.00-1.30 [facility] CBC W/Diff, Automatedon 04-0 3-2024 Absolute Lymph 0.57 X10 3/uL Low 0.83-4.51 [facility] Comment on above: Performed By: #### Benito MENDES BR #### [facility] [address] [place], [address] Absolute Neut 2.6 X10 3/uL Normal 2.0-7.7 [facility] Comment on above: Performed By: #### Benito MENDES, BRC #### [facility] [address] [place], [address] Basophils/100 WBC (Bld) 0.3 % Normal 0-1 [facility] Comment on above: Performed By: #### Benito MENDES BRC #### [facility] [address] [place], [address] Eosinophils/100 WBC (Bld) 1.1 % Normal 0-5 [facility] Comment on above: Performed By: #### Benito MENDES BR #### [facility] [address] [place], [address] Erythrocyte distribution width (RBC) [Ratio] 17.8 % High 11.6-14.6 [facility] Comment on above: Performed By: #### Benito MENDES BR #### [facility] [address] [place], [address] Hematocrit (Bld) [Volume fraction] 21.6 % Low 40-54 [facility] Comment on above: Performed By: #### Benito MENDES BRC #### [facility] [address] [place], [address] Hemoglobin (Bld) [Mass/Vol] 7.1 g/dL Low 13.0-16.5 [facility] Comment on above: Performed By: #### Benito MENDES, BRC #### [facility] [address] [place], [address] IG% 1.700 High 0.0-0.9 [facility] Comment on above: Result Comment: IG% - Immature Granulocytes (promyelocytes, myelocytes and metamyelocytes) > 1% indicates that a LEFT SHIFT is Present. Performed By: #### Benito MENDES, BRC #### [facility] [address] [place], [address] Lymphocytes/100 WBC (Bld) 16.4 % Low 19-41 [facility] Comment on above: Performed By: #### Benito MENDES, BRC #### [facility] [address] [place], [address] MCH (RBC) [Entitic mass] 30.9 pg Normal 27.0-32.0 [facility] Comment on above: Performed By: #### Benito MENDES, BRC #### [facility] [address] [place], [address] MCHC (RBC) [Mass/Vol] 32.9 g/dL Normal 32-[address] [facility] Comment on above: Performed By: #### Benito MENDES, BRC #### [facility] [address] [place], [address] MCV (RBC) [Entitic vol] 93.9 fL Normal 80-94 [facility] Comment on above: Performed By: #### Benito MENDES, BRC #### [facility] [address] [place], [address] Monocytes/100 WBC (Bld) 5.2 % Normal 0-10 [facility] Comment on above: Performed By: #### Benito MENDES, BRC #### [facility] [address] [place], [address] Neutrophils/100 WBC (Bld) 75.3 % High 47-70 [facility] Comment on above: Performed By: #### Benito MENDES, BRC #### [facility] [address] [place], [address] Nucleated RBC (Bld) [#/Vol] 0 10*3/uL Normal 0-5 [facility] Comment on above: Performed By: #### Benito MENDES, BRC #### [facility] [address] [place], [address] Platelet mean volume (Bld) [Entitic vol] 10.9 fL Normal 6.2-12.0 [facility] Comment on above: Performed By: #### Benito MENDES, BRC #### [facility] [address] [place], [address] Platelets (Bld) [#/Vol] 154 10*3/uL Normal 150-450 [facility] Comment on above: Performed By: #### Benito MENDES, BRC #### [facility] [address] [place], [address] RBC (Bld) [#/Vol] 2.30 10*6/uL Low 4.6-6.2 [facility] Comment on above: Performed By: #### Benito MENDES, BRC #### [facility] [address] [place], [address] RDW SD 56.1 fl High 35.1-43.9 [facility] Comment on above: Performed By: #### Benito MENDES, BRC #### [facility] [address] [place], [address] WBC (Bld) [#/Vol] 3.5 10*3/uL Low 4.4-11.0 [facility] Comment on above: Performed By: #### Benito MENDES, BRC #### [facility] [address] [place], [address] Carbon dioxide, total [Moles /volume] in Central venous bloodOrdered By: Esau Brothers on 02-10-2025 CO2 [Moles/Vol] 26.7 mmol/L 21.0-32.0 [facility] Chloride assayOrdered By: Thomas Brothers on 02-10-2025 Chloride [Moles/Vol] 103 mmol/L 98-108 [facility] Emergency Department Summary on 02-10-2025 Emergency Department Summary [facility] Medical Records Department [address] [place] [address] Emergency Department Summary 02/10/25 MR#: [id number] Acct: [id number] Name: LORETA HURST Rep #: [id number] : 1945 79 From: Esau Brothers DO PCP: PAWAN Ortiz Status:REG ER Location: ED ADDENDUM by Dr. Abrahan Dueñas DO on 02/10/25 at 1825 I did provide a patient hard copy of his CT results and advised him to show his primary care physician these results for the further testing that was recommended 02/10/251824 Cosigner Signature (if applicable): cc: [employer] Gladys Da Silva * Signed ADDENDUM by [...] intact Psych: Cooperative, appropriate mood and affect [facility] Medical History Pancytopenia Thrombocytopenia MDS (myelodysplastic syndrome) Secondary pulmonary arterial hypertension Encounter for education [place] Sensory neuropathy Myelodysplastic syndrome Home Medications ???Medication ???Instructions ???Recorded ???Last Taken ???Type montelukast 10 mg tablet 10 mg PO QHS allergies 08/24/18 History pyridoxine (vitamin B6) 100 (more content not included)... Normal [facility] Eosinophil percentageOrdered By: Esaujoe Brothers on 02-10-2025 Eosinophils/100 WBC (Bld) 1.1 % 0-5 [facility] Epithelial cells.squamous LM Ql (Urine sed)Ordered By: Esaujoe Brothers on 02-10-2025 Epithelial cells.squamous LM.HPF (Urine sed) [#/Area] 0 /[HPF] 0-5 [facility] Erythrocyte distribution wid th (RBC) [Ratio]Ordered By: Keene Zev on 02-10-2025 Erythrocyte distribution width (RBC) [Entitic vol] 56.1 fL High 35.1-43.9 [facility] Erythrocyte distribution wid th ratioOrdered By: [facility] CareLatanya on 02-10-2025 Erythrocyte distribution width (RBC) [Ratio] 17.8 % High 11.6-14.6 [facility] Erythrocyte distribution wid th standard deviationOrdered By: American Healthcare Systemst on 02-10-2025 Erythrocyte distribution width (RBC) [Ratio] 56.1 fl High 35.1-43.9 [facility] Estimation of creatinine alvino aranceOrdered By: [facility] Healthcare SystemSudarshan on 02-10-2025 Estimated Creatinine Clearance Calc 77.15 ml/min 50-250 [facility] GFR/1.73 sq M.predicted [place] g non-blacks MDRD (S/P/Bld) [Vol rate/Area]Ordered By: Esaujoe Brothers on 02-10-2025 Estimated GFR (MDRD) Non-Af Amer 93 >60 [facility] Comment on above: mL/min/1.73m2 CKD-EP I Creatinine Equation (2020) Glomerular filtration rate ( GFR) estimation/1.73 sq m using serum, plasma, or whole bOrdered By: Esau Brothers on 02-10-2025 GFR/1.73 sq M.predicted among non-blacks MDRD (S/P/Bld) [Vol rate/Area] 93 mL/min/{1.73_m2} >60 [facility] Comment on above: mL/min/1.73m2 CKD-EP I Creatinine Equation (2020) Glucose Ql (U)Ordered By: Thomas Brothers on 02-10-2025 Urine Glucose (UA) Normal mg/dl Normal [facility] Hematocrit Auto (Bld) [Volum e fraction]Ordered By: Esau Brothers on 02-10-2025 Hematocrit (Bld) [Volume fraction] 21.6 % Low 40-54 [facility] Hemoglobin measurementOrdere d By: Esau Brothers on 02-10-2025 Hemoglobin (Bld) [Mass/Vol] 7.1 g/dL Low 13.0-16.5 [facility] Immature granulocytes/100 WB C Auto (Bld)Ordered By: Esau Brothers on 02-10-2025 Immature granulocytes/100 WBC (Bld) 1.700 % High 0.0-0.9 [facility] Comment on above: IG% - Immature Granu locytes (promyelocytes, myelocytes and metamyelocytes) > 1% indicates that a LEFT SHIFT is Present. Ketones Test strip Ql (U)Ord ered By: Esau Brothers on 02-10-2025 Ketones Ql (U) Negative Negative [facility] - Chemistry and C hemistry - challengeOrdered By: Abrahan Dueñas on 02-10-2025 AST [Catalytic activity/Vol] 38 U/L <38 [facility] Liver Profileon 02-10-2025 Albumin [Mass/Vol] 4.2 g/dL Normal 3.4-4.8 [facility] Comment on above: Performed By: #### B TS, BRC #### [facility] [address] [place], [address] ALK PHOS 75 U/L Normal 40-129 [facility] Comment on above: Performed By: #### Benito MENDES, BRC #### [facility] [address] [place], [address] ALT [Catalytic activity/Vol] 46 U/L Normal <=46 [facility] Comment on above: Performed By: #### Benito MENDES, BRC #### [facility] [address] [place], [address] AST [Catalytic activity/Vol] 38 U/L Normal <=37 [facility] Comment on above: Performed By: #### Benito MENDES, BR #### [facility] [address] [place], [address] Bilirubin [Mass/Vol] 1.19 mg/dL Normal 0.00-1.30 [facility] Comment on above: Performed By: #### Benito MENDES BR #### [facility] [address] [place], [address] Bilirubin.direct [Mass/Vol] 0.57 mg/dL High 0.00-0.30 [facility] Comment on above: Performed By: #### Benito MENDES, BR #### [facility] [address] [place], [address] Globulin (S) [Mass/Vol] 2.3 g/dL Normal 2.2-4.[address] [facility] [facility] Comment on above: Performed By: #### Benito MENDES, BRC #### [facility] [address] [place], [address] T PROT 6.4 g/dL Normal 5.9-8.4 [facility] Comment on above: Performed By: #### Benito MENDES, BRC #### [facility] [address] [place], [address] Lymphocytes Auto (Unsp spec) [#/Vol]Ordered By: Esau Brothers on 02-10-2025 Lymphocytes (Bld) [#/Vol] 0.57 10*3/uL Low 0.83-4.51 [facility] Lymphocytes/100 WBC Auto (Un sp spec)Ordered By: Esau Brothers on 02-10-2025 Lymphocytes/100 WBC (Bld) 16.4 % Low 19-41 [facility] MCV (mean corpuscular volume ) determinationOrdered By: Esau Brothers on 02-10-2025 MCV (RBC) [Entitic vol] 93.9 fL 80-94 [facility] Mean corpuscular hemoglobin (MCH) determinationOrdered By: Esau Brothers on 02-10-2025 MCH (RBC) [Entitic mass] 30.9 pg 27.0-32.0 [facility] Mean corpuscular hemoglobin concentration (MCHC) determinationOrdered By: Esau Brothers on 02-10-2025 MCHC (RBC) [Mass/Vol] 32.9 g/dL 32-[address] [facility] Mean platelet volume determi nationOrdered By: Esau Brothers on 02-10-2025 Platelet mean volume (Bld) [Entitic vol] 10.9 fL 6.2-12.0 [facility] Microscopic analysis of urin e for red blood cells (RBC)Ordered By: Esau Brothers on 02-10-2025 Microscopic analysis of urine for red blood cells (RBC) 0 SEEN /hpf 0-5 [facility] Urine RBC 0 SEEN /hpf 0-5 [facility] Monocyte percentageOrdered B y: Esau Brothers on 02-10-2025 Monocytes/100 WBC (Bld) 5.2 % 0-10 [facility] Mucus LM Ql (Urine sed)Order ed By: Esau Brothers on 02-10-2025 Mucus Ql (Urine sed) 0 SEEN /hpf [facility] Neutrophil percentageOrdered By: Esau Brothers on 02-10-2025 Neutrophils/100 WBC (Bld) 75.3 % High 47-70 [facility] Nitrite Test strip Ql (U)Ord ered By: Esau Brothers on 02-10-2025 Nitrite Ql (U) Negative Negative [facility] Nucleated red blood cell per centageOrdered By: Esau Brothers on 02-10-2025 Nucleated RBC/100 WBC (Bld) [Ratio] 0 % 0-5 [facility] Platelet countOrdered By: Thomas Brothers on 02-10-2025 Platelets (Bld) [#/Vol] 154 10*3/uL 150-450 [facility] Potassium (Unsp spec) [Mass/ Vol]Ordered By: Esau Brothers on 02-10-2025 Potassium [Moles/Vol] 4.4 mmol/L 3.3-5.[address] [facility] Potassium measurement (mass/ volume)Ordered By: Esau Brothers on 02-10-2025 Potassium (Unsp spec) [Mass/Vol] 4.4 mmol/L 3.3-5.1 [facility] Protein Test strip Ql (U)Ord ered By: Esau Brothers on 02-10-2025 Protein Ql (U) Negative Negative [facility] RBC Auto (Bld) [#/Vol]Ordere d By: Esau Brothers on 02-10-2025 RBC (Bld) [#/Vol] 2.30 10*6/uL Low 4.6-6.2 [facility] Serum creatinine measurement (mass/volume)Ordered By: Esau Brothers on 02-10-2025 Creatinine [Mass/Vol] 0.71 mg/dL 0.70-1.[address] [facility] Serum globulin measurementOr dered By: Abrahan Dueñas on 02-10-2025 Globulin (S) [Mass/Vol] 2.3 g/dL 2.2-4.2 [facility] Serum glucose measurement (m ass/volume)Ordered By: Esau Brothers on 04-03-2025 Glucose [Mass/Vol] 104 mg/dL High 70-99 [facility] Serum or plasma alanine gloria otransferase (ALT) measurementOrdered By: Abrahan Dueñas on 02-10-2025 ALT [Catalytic activity/Vol] 46 U/L <47 [facility] Serum or plasma albumin alexander urement (mass/volume)Ordered By: Abrahan Dueñas on 02-10-2025 Albumin [Mass/Vol] 4.2 g/dL 3.4-4.8 [facility] Serum or plasma alkaline les sphatase measurementOrdered By: Abrahan Dueñas on 02-10-2025 ALP [Catalytic activity/Vol] 75 U/L 40-129 [facility] Serum or plasma calcium alexander urement (mass/volume)Ordered By: Esau Mackenzie on 02-10-2025 Calcium [Mass/Vol] 9.3 mg/dL 7.6-11.0 [facility] Serum or plasma urea nitroge n measurement (mass/volume)Ordered By: Esau Brothers on 02-10-2025 Urea nitrogen [Mass/Vol] 10 mg/dL 4-19 [facility] Sodium levelOrdered By: Mejia Brothers on 02-10-2025 Sodium [Moles/Vol] 139 mmol/L 133-145 [facility] Squamous epithelial cells de tection in urine sediment by light microscopyOrdered By: Esau Brothers on 02-10-2025 Epithelial cells.squamous LM Ql (Urine sed) 0 SEEN /hpf 0-5 [facility] Total proteinOrdered By: Jackeline Dueñas on 02-10-2025 Protein [Mass/Vol] 6.4 g/dL 5.9-8.4 [facility] Type AND Screenon 02-10-2025 Ab SCREEN GEL Negative Normal [facility] Comment on above: Order Comment: A Performed By: #### B TS #### [facility] [address] [place], [place], [id number] ABO and Rh group Nom (Bld) Blood group B Rh(D) positive Normal [facility] Comment on above: Order Comment: A Performed By: #### B TS #### [facility] [address] [place], [address] Urinalysis, Completeon 02-10 WBC 0-5 SEEN Normal 0-5 [facility] Comment on above: Order Comment: N 01/28/2025 @0800 N Y A Performed By: #### Benito MENDES, [facility] #### [facility] [address] [place], [address] BACTERIA 0 SEEN Normal None Seen [facility] Comment on above: Order Comment: N 01/28/2025 @0800 N Y A Performed By: #### Benito MENDES, [facility] #### [facility] [address] [place], [address] EPI,SQUAMOUS 0 SEEN Normal 0-5 [facility] Comment on above: Order Comment: N 01/28/2025 @0800 N Y A Performed By: #### Benito MENDES, [facility] #### [facility] [address] [place], [address] Mucus Ql (Urine sed) 0 SEEN Normal [facility] Comment on above: Order Comment: N 01/28/2025 @0800 N Y A Performed By: #### Benito MENDES, [facility] #### [facility] [address] [place], [address] RBC 0 SEEN Normal 0-5 [facility] Comment on above: Order Comment: N 01/28/2025 @0800 N Y A Performed By: #### Benito MENDES, [facility] #### [facility] [address] [place], [address] Urine blood detectionOrdered By: Esau Brothers on 02-10-2025 Urine Occult Blood Negative Negative [facility] Urine clarityOrdered By: Kishore Brothers on 02-10-2025 Clarity (U) Clear Clear [facility] Urine color determinationOrd ered By: Esau Brothers on 02-10-2025 Color (U) Yellow Yellow [facility] Urine glucose detectionOrder ed By: Esau Brothers on 02-10-2025 Glucose Ql (U) Normal mg/dl Normal [facility] Urine leukocyte esterase det ection by dipstickOrdered By: Esau Brothers on 02-10-2025 Leukocyte esterase Test strip Ql (U) 25 /ul High Negative [facility] Urine pHOrdered By: Esau Florez on 02-10-2025 pH (U) 7.0 [pH] 5.0 - 8.0 [facility] Urine sediment bacteria coun t by microscopy (number/high power field)Ordered By: Esau Brothers on 02-10-2025 Bacteria LM.HPF (Urine sed) [#/Area] 0 /[HPF] None Seen [facility] Urine specific gravity measu rementOrdered By: Esau Brothers on 02-10-2025 Specific gravity (U) [Rel density] 1.005 1.002-1.030 [facility] Urine urobilinogen measureme ntOrdered By: Esau Brothers on 02-10-2025 Urobilinogen Ql (U) Normal mg/dl Normal [facility] Urobilinogen Ql (U)Ordered B y: Esau Brothers on 02-10-2025 Urine Urobilinogen Normal mg/dl Normal [facility] Venous Duplex US, Unilateral on 02-10-2025 Venous Duplex US, Unilateral [facility] [address] [place] [address] Venous Duplex US, Unilateral 02/10/25 1432 MR#: [id number] Acct: [id number] Name: LORETA HURST Arnie Rep #: [id number] : 1945 79 From: Lalo Felton MD [...] Date Dictated: 02/10/25 1432 Date Transcribed: 02/10/251702 Animator: Signed Normal [facility] White blood cell (WBC) count Ordered By: Esau Brothers on 02-10-2025 WBC (Bld) [#/Vol] 3.5 10*3/uL Low 4.4-11.0 [facility] White blood cell countOrdere d By: Esau Brothers on 02-10-2025 Urine WBC 0-5 SEEN /hpf 0-5 [facility] White blood cell count 0-5 SEEN /hpf 0-5 [facility] BRCon 01-27-2025 RC Normal Neg [facility] Comment on above: Result Comment: [id number] BN RC TRANSFUSED 01/28/25 1108 [id number] BP RC TRANSFUSED 01/28/25 0904 Performed By: #### B , [facility] #### [facility] [address] [place], [place], [id number] CBC W Auto Differential pane l (Bld)on 01-27-2025 Basophils (Bld) [#/Vol] 10*3/uL Normal <0.11 [facility] Comment on above: Order Comment: Speci men Type: BLOOD SPECIMENOrdering Facility: [facility] Address: [address] [place] [address] Performed By: #### 5 7021-8 ####[facility]PITALWNCLIA [id number] [place] [address] [place] Basophils/100 WBC (Bld) 0.3 % Normal C [facility] Comment on above: Order Comment: Speci men Type: BLOOD SPECIMENOrdering Facility: [facility] Address: [address] [place] [address] Performed By: #### 5 7021-8 ####[facility] MILLWNCLIA [id number] [place] [address] [place] Differential cell count method Nom (Bld) Auto Normal [facility] Comment on above: Order Comment: Speci men Type: BLOOD SPECIMENOrdering Facility: [facility] Address: [address] [place] [address] Performed By: #### 5 7021-8 ####[facility] MILLWNCLIA [id number] [place] [address] [place] Eosinophils (Bld) [#/Vol] 0.05 10*3/uL Normal <0.46 [facility] Comment on above: Order Comment: Speci men Type: BLOOD SPECIMENOrdering Facility: [facility] Address: [address] [place] [address] Performed By: #### 5 7021-8 ####[facility] SHERRILIANNE [id number] [place] [address] [place] Eosinophils/100 WBC (Bld) 1.7 % Normal [facility] Comment on above: Order Comment: Speci men Type: BLOOD SPECIMENOrdering Facility: [facility] Address: [address] [place] [address] Performed By: #### 5 7021-8 ####[facility] HOSPITALNCLIDarrick [id number] [place] [address] [place] Erythrocyte distribution width (RBC) [Ratio] 17.4 % High 11.5-15.0 [facility] Comment on above: Order Comment: Speci men Type: BLOOD SPECIMENOrdering Facility: [facility] Address: [address] [place] [address] Performed By: #### 5 7021-8 ####[facility]ENTERA [id number] [place] [address] [place] Hematocrit (Bld) [Volume fraction] 23.5 % Low 39.0-51.0 [facility] Comment on above: Order Comment: Speci men Type: BLOOD SPECIMENOrdering Facility: [facility] Address: [address] [place] [address] Performed By: #### 5 7021-8 ####[facility]ENTERA [id number] [place] [address] [place] Hemoglobin (Bld) [Mass/Vol] 7.7 g/dL Low 13.0-17.0 [facility] Comment on above: Order Comment: Speci men Type: BLOOD SPECIMENOrdering Facility: [facility] Address: [address] [place] [address] Performed By: #### 5 7021-8 ####[facility] MILLWNCLIA [id number] [place] [address] [place] Immature granulocytes (Bld) [#/Vol] 10*3/uL Normal <0.10 [facility] Comment on above: Order Comment: Speci men Type: BLOOD SPECIMENOrdering Facility: [facility] Address: [address] [place] [address] Performed By: #### 5 7021-8 ####[facility] CENTERLIA [id number] [place] [address] [place] Immature granulocytes/100 WBC (Bld) 0.3 % Normal [facility] Comment on above: Order Comment: Speci men Type: BLOOD SPECIMENOrdering Facility: [facility] Address: [address] [place] [address] Performed By: #### 5 7021-8 ####[facility] CENTERLIA [id number] [place] [address] [place] Lymphocytes (Bld) [#/Vol] 0.54 10*3/uL Low 1.00-4.00 [facility] Comment on above: Order Comment: Speci men Type: BLOOD SPECIMENOrdering Facility: [facility] Address: [address] [place] [address] Performed By: #### 5 7021-8 ####[facility] CENTERLIA [id number] [place] [address] [place] Lymphocytes/100 WBC (Bld) 17.8 % Normal [facility] Comment on above: Order Comment: Speci men Type: BLOOD SPECIMENOrdering Facility: [facility] Address: [address] [place] [address] Performed By: #### 5 7021-8 ####[facility] CENTERLIA [id number] [place] [address] [place] MCH (RBC) [Entitic mass] 31.0 pg Normal 26.0-34.0 [facility] Comment on above: Order Comment: Speci men Type: BLOOD SPECIMENOrdering Facility: [facility] Address: [address] [place] [address] Performed By: #### 5 7021-8 ####[facility] [id number] [place] [address] [place] MCHC (RBC) [Mass/Vol] 32.8 g/dL Normal 30.5-36.0 [facility] Comment on above: Order Comment: Speci men Type: BLOOD SPECIMENOrdering Facility: [facility] Address: [address] [place] [address] Performed By: #### 5 7021-8 ####[facility] [id number] [place] [address] [place] MCV (RBC) [Entitic vol] 94.8 fL Normal 80.0-100.0 C [facility] Comment on above: Order Comment: Speci men Type: BLOOD SPECIMENOrdering Facility: [facility] Address: [address] [place] [address] Performed By: #### 5 7021-8 ####[facility] HOSPITALNCLI [id number] [place] [address] [place] Monocytes (Bld) [#/Vol] 0.14 10*3/uL Normal <0.87 [facility] Comment on above: Order Comment: Speci men Type: BLOOD SPECIMENOrdering Facility: [facility] Address: [address] [place], [place] [address] Performed By: #### 5 7021-8 ####[facility] HOSPITALNCLIA [id number] [address] [place] Monocytes/100 WBC (Bld) 4.6 % Normal C [facility] Comment on above: Order Comment: Speci men Type: BLOOD SPECIMENOrdering Facility: [facility] Address: [address] [place] [address] Performed By: #### 5 7021-8 ####[facility] SHERRIJENNILIA [id number] [place] [address] [place] Neutrophils (Bld) [#/Vol] 2.28 10*3/uL Normal 1.45-7.50 [facility] Comment on above: Order Comment: Speci men Type: BLOOD SPECIMENOrdering Facility: [facility] Address: [address] [place] [address] Performed By: #### 5 7021-8 ####[facility] CENTERLIA [id number] [place] [address] [place] Neutrophils/100 WBC (Bld) 75.3 % Normal [facility] Comment on above: Order Comment: Speci men Type: BLOOD SPECIMENOrdering Facility: [facility] Address: [address] [place] [address] Performed By: #### 5 7021-8 ####[facility] CENTERLIA [id number] [place] [address] [place] Nucleated RBC (Bld) [#/Vol] 10*3/uL Normal <0.01 [facility] Comment on above: Order Comment: Speci men Type: BLOOD SPECIMENOrdering Facility: [facility] Address: [address] [place] [address] Performed By: #### 5 7021-8 ####[facility] HOSPITALNCLIA [id number] [place] [address] [place] Nucleated RBC/100 WBC (Bld) [Ratio] 0.0 /100 WBC Normal [facility] Comment on above: Order Comment: Speci men Type: BLOOD SPECIMENOrdering Facility: [facility] Address: [address] [place] [address] Performed By: #### 5 7021-8 ####[facility] SHERRIWNCLIA [id number] [place] [address] [place] Platelet mean volume (Bld) [Entitic vol] 11.1 fL Normal 9.0-12.7 [facility] Comment on above: Order Comment: Speci men Type: BLOOD SPECIMENOrdering Facility: [facility] Address: [address] [place] [address] Performed By: #### 5 7021-8 ####[facility] CENTERLIA [id number] [place] [address] [place] Platelets (Bld) [#/Vol] 134 10*3/uL Low 150-400 [facility] Comment on above: Order Comment: Speci men Type: BLOOD SPECIMENOrdering Facility: [facility] Address: [address] [place] [address] Performed By: #### 5 7021-8 ####[facility] CENTERLIA [id number] [place] [address] [place] RBC (Bld) [#/Vol] 2.48 10*6/uL Low 4.20-6.00 [facility] Comment on above: Order Comment: Speci men Type: BLOOD SPECIMENOrdering Facility: [facility] Address: [address] [place] [address] Performed By: #### 5 7021-8 ####[facility] CENTERLIA [id number] [place] [address] [place] WBC (Bld) [#/Vol] 3.03 10*3/uL Low 3.70-11.00 [facility] Comment on above: Order Comment: Speci men Type: BLOOD SPECIMENOrdering Facility: [facility] Address: [address] [place] [address] Performed By: #### 5 7021-8 ####[facility] CENTERLIA [id number] [place] [address] [place] CNOVon 01-27-2025 CNOV Normal [facility] CNPNon 01-27-2025 CNPN Normal [facility] Comprehensive metabolic 2000 panelon 01-27-2025 Albumin [Mass/Vol] 4.3 g/dL Normal 3.9-4.9 [facility] Comment on above: Order Comment: Speci men Type: BLOOD SPECIMENOrdering Facility: [facility] Address: [address] [place] [address] Performed By: #### 2 4323-8 ####[facility] MILLTOWNCLIA [id number] [place] [address] [place] ALP [Catalytic activity/Vol] 97 U/L Normal 38-113 [facility] Comment on above: Order Comment: Speci men Type: BLOOD SPECIMENOrdering Facility: [facility] Address: [address] [place] [address] Performed By: #### 2 4323-8 ####[facility] HOSPITALWNCLIA [id number] [place] [address] [place] ALT [Catalytic activity/Vol] 65 U/L High 10-54 [facility] Comment on above: Order Comment: Speci men Type: BLOOD SPECIMENOrdering Facility: [facility] Address: [address] [place] [address] Performed By: #### 2 4323-8 ####[facility] MILLTOWNCLIA [id number] [place] [address] [place] Anion gap [Moles/Vol] 8 mmol/L Normal 8-15 [facility] Comment on above: Order Comment: Speci men Type: BLOOD SPECIMENOrdering Facility: [facility] Address: [address] [place] [address] Performed By: #### 2 4323-8 ####[facility] MILLTOWNCLIA [id number] [place] [address] [place] AST [Catalytic activity/Vol] 48 U/L High 14-40 [facility] Comment on above: Order Comment: Speci men Type: BLOOD SPECIMENOrdering Facility: [facility] Address: [address] [place] [address] Performed By: #### 2 4323-8 ####[facility] HOSPITALNCLIA [id number] [place] [address] [place] Bilirubin [Mass/Vol] 1.0 mg/dL Normal 0.2-1.3 [facility] Comment on above: Order Comment: Speci men Type: BLOOD SPECIMENOrdering Facility: [facility] Address: [address] [place] [address] Performed By: #### 2 4323-8 ####[facility]PITALNCLIA [id number] [place] [address] [place] Calcium [Mass/Vol] 9.4 mg/dL Normal 8.5-10.2 [facility] Comment on above: Order Comment: Speci men Type: BLOOD SPECIMENOrdering Facility: [facility] Address: [address] [place] [address] Performed By: #### 2 4323-8 ####[facility] CENTERLIA [id number] [place] [address] [place] Chloride [Moles/Vol] 102 mmol/L Normal 98-107 [facility] Comment on above: Order Comment: Speci men Type: BLOOD SPECIMENOrdering Facility: [facility] Address: [address] [place] [address] Performed By: #### 2 4323-8 ####[facility] HOSPITALNCLIA [id number] [place] [address] [place] CO2 [Moles/Vol] 29 mmol/L Normal 22-30 [facility] Comment on above: Order Comment: Speci men Type: BLOOD SPECIMENOrdering Facility: [facility] Address: [address] [place] [address] Performed By: #### 2 4323-8 ####[facility] [id number] [place] [address] [place] Creatinine [Mass/Vol] 0.77 mg/dL Normal 0.73-1.22 [facility] Comment on above: Order Comment: Speci men Type: BLOOD SPECIMENOrdering Facility: [facility] Address: [address] [place] [address] Performed By: #### 2 4323-8 ####[facility] [id number] [place] [address] [place] Creatinine and Glomerular filtration rate.predicted panel (S/P/Bld) 91 mL/min/1.73m??? Normal >=60 [facility] Comment on above: Order Comment: Speci men Type: BLOOD SPECIMENOrdering Facility: [facility] Address: [address] [place] [address] Result Comment: Lilly mated Glomerular Filtration Rate [...] actual GFR. Performed By: #### 2 4323-8 ####[facility]ENTERLI [id number] [place] [address] [place] Glucose [Mass/Vol] 175 mg/dL High 74-99 [facility] Comment on above: Order Comment: Speci men Type: BLOOD SPECIMENOrdering Facility: [facility] Address: [address] [place] [address] Result Comment: The [place] [employer] (ADA) provides guidance for cutoff [...] Standards of Medical Care in Diabetes 2016, [place] [employer]. Diabetes Care. 2016.39(Suppl 1). Performed By: #### 2 4323-8 ####[facility] HOSPITALWMDLIA [id number] [place] [address] [place] Potassium [Moles/Vol] 4.3 mmol/L Normal 3.7-5.1 [facility] Comment on above: Order Comment: Speci men Type: BLOOD SPECIMENOrdering Facility: [facility] Address: [address] [place] [address] Performed By: #### 2 4323-8 ####[facility]A [id number] [place] [address] [place] Protein [Mass/Vol] 6.5 g/dL Normal 6.3-8.0 [facility] Comment on above: Order Comment: Speci men Type: BLOOD SPECIMENOrdering Facility: [facility] Address: [address] [place] [address] Performed By: #### 2 4323-8 ####[facility] CENTERLIA [id number] [place] [address] [place] Sodium [Moles/Vol] 139 mmol/L Normal 136-144 [facility] Comment on above: Order Comment: Speci men Type: BLOOD SPECIMENOrdering Facility: [facility] Address: [address] [place] [address] Performed By: #### 2 4323-8 ####[facility] CENTERLIA [id number] [place] [address] [place] Urea nitrogen [Mass/Vol] 15 mg/dL Normal 9-24 [facility] Comment on above: Order Comment: Speci men Type: BLOOD SPECIMENOrdering Facility: [facility] Address: [address] [place] [address] Performed By: #### 2 4323-8 ####[facility]A [id number] [place] [address] [place] Type AND Screenon 01-27-2025 Ab SCREEN GEL Negative Normal [facility] Comment on above: Order Comment: N 01/28/2025 @0800 N Y A Performed By: #### Benito MENDES, [facility] #### [facility] [address] [place], [place], [address] ABO and Rh group Nom (Bld) Blood group B Rh(D) positive Normal [facility] Comment on above: Order Comment: N 01/28/2025 @0800 N Y A Performed By: #### B CINTHYA, [facility] #### [facility] [address] [place], [place], [address] Urinalysis complete panel (U )on 01-27-2025 Bacteria LM.HPF (Urine sed) [#/Area] Negative Normal Negative [facility] Comment on above: Order Comment: Speci men Type: URINE SPECIMENOrdering Facility: [facility] Address: [address] [place] [address] Performed By: #### 2 4356-8 ####[facility] LABCLIA [id number] [address] [place] Bilirubin Ql (U) Negative Normal Negative [facility] Comment on above: Order Comment: Speci men Type: URINE SPECIMENOrdering Facility: [facility] Address: [address] [place] [address] Performed By: #### 2 4356-8 ####[facility] LABCLIA [id number] [address] [place] [address] [place] Clarity (Unsp spec) Clear Normal Clear Dylon [facility] Comment on above: Order Comment: Speci men Type: URINE SPECIMENOrdering Facility: [facility] Address: [address] [place] [address] Performed By: #### 2 4356-8 ####[facility] LABCLIA [id number] [address] [place] [address] [place] Color (U) Yellow Normal Yellow [facility] Comment on above: Order Comment: Speci men Type: URINE SPECIMENOrdering Facility: [facility] Address: [address] [place] [address] Performed By: #### 2 4356-8 ####[facility] LABCLIA [id number] [address] [place] [address] [place] Epithelial cells LM.HPF (Urine sed) [#/Area] None Seen Normal [facility] Comment on above: Order Comment: Speci men Type: URINE SPECIMENOrdering Facility: [facility] Address: [address] [place] [address] Performed By: #### 2 4356-8 ####[facility] LABCLIA [id number] [address] [place] [address] [place] Glucose Test strip (U) [Mass/Vol] Negative Normal Negative [facility] Comment on above: Order Comment: Speci men Type: URINE SPECIMENOrdering Facility: [facility] Address: [address] [place] [address] Performed By: #### 2 4356-8 ####[facility] LABCLIA [id number] [address] [place] [address] [place] Hemoglobin Ql (U) Negative Normal Negative [facility] Comment on above: Order Comment: Speci men Type: URINE SPECIMENOrdering Facility: [facility] Address: [address] [place], [place] [address] Performed By: #### 2 4356-8 ####[facility] LABCLIA [id number] [address] [place] [address] [place] Hyaline casts (Urine sed) [#/Area] 0 /[LPF] Normal 0 /LPF [facility] Comment on above: Order Comment: Speci men Type: URINE SPECIMENOrdering Facility: [facility] Address: [address] [place] [address] Performed By: #### 2 4356-8 ####[facility] LABCLIA [id number] [address] [place] [address] [place] Ketones Ql (U) Negative Normal Negative [facility] Comment on above: Order Comment: Speci men Type: URINE SPECIMENOrdering Facility: [facility] Address: [address] [place] [address] Performed By: #### 2 4356-8 ####[facility] LABCLIA [id number] [address], [place] [address] [place] Leukocyte esterase Test strip Ql (U) Negative Normal Negative [facility] Comment on above: Order Comment: Speci men Type: URINE SPECIMENOrdering Facility: [facility] Address: [address] [place] [address] Performed By: #### 2 4356-8 ####[facility] LABCLIA [id number] [address], [facility] [place] Nitrite Ql (U) Negative Normal Negative [facility] Comment on above: Order Comment: Speci men Type: URINE SPECIMENOrdering Facility: [facility] Address: [address] [place] [address] Performed By: #### 2 4356-8 ####[facility] LABCLIA [id number] [place] [address] [place] pH (U) 7.5 [pH] Normal <8.5 [facility] Comment on above: Order Comment: Speci men Type: URINE SPECIMENOrdering Facility: [facility] Address: [address] [place] [address] Performed By: #### 2 4356-8 ####[facility] LABIA [id number] [address], [place] [address] [place] Protein (U) [Mass/Vol] Negative Normal Negative Cl [facility] Comment on above: Order Comment: Speci men Type: URINE SPECIMENOrdering Facility: [facility] Address: [address] [place] [address] Performed By: #### 2 4356-8 ####[facility] LABIA [id number] [address], [place] [address] [place] RBC LM.HPF (Urine sed) [#/Area] 0-2 /HPF Normal 0-2 /HPF [facility] Comment on above: Order Comment: Speci men Type: URINE SPECIMENOrdering Facility: [facility] Address: [address] [place] [address] Performed By: #### 2 4356-8 ####[facility] HOSPITALIA [id number] [address], [place] [address] [place] Specific gravity (U) [Rel density] 1.011 Normal 1.005-1.030 [facility] Comment on above: Order Comment: Speci men Type: URINE SPECIMENOrdering Facility: [facility] Address: [address] [place] [address] Performed By: #### 2 4356-8 ####[facility] LABIA [id number] [address], [facility] [place] Urobilinogen Ql (U) 1.0 EU/dL Normal 0.2-1.0 EU/dL [facility] Comment on above: Order Comment: Speci men Type: URINE SPECIMENOrdering Facility: [facility] Address: [address] [place] [address] Performed By: #### 2 4356-8 ####[facility] LABIA [id number] [place] [address] [place] WBC LM.HPF (Urine sed) [#/Area] 0-5 /HPF Normal 0-5 /HPF [facility] Comment on above: Order Comment: Speci men Type: URINE SPECIMENOrdering Facility: [facility] Address: [address] [place] [address] Performed By: #### 2 4356-8 ####[facility] LABCLIA [id number] [place] [address] [place] BRCon 01-13-2025 RC Normal [facility] Comment on above: Result Comment: [id number] BN RC TRANSFUSED 01/14/25 0831 [id number] BN RC TRANSFUSED 01/14/25 1035 Performed By: #### B TS, [facility] #### [facility] [address] [facility] [place], [place], [id number] CBC W Auto Differential pane l (Bld)on 01-13-2025 Basophils (Bld) [#/Vol] 10*3/uL Normal <0.11 C [facility] Comment on above: Order Comment: Speci men Type: BLOOD SPECIMENOrdering Facility: [facility] Address: [address] [place] [address] Performed By: #### 5 7021-8 ####[facility] [id number] [place] [address] [place] Basophils/100 WBC (Bld) 0.3 % Normal C [facility] Comment on above: Order Comment: Speci men Type: BLOOD SPECIMENOrdering Facility: [facility] Address: [address] [place], [place] [address] Performed By: #### 5 7021-8 ####[facility] [id number] [place] [address] [place] Differential cell count method Nom (Bld) Auto Normal [facility] Comment on above: Order Comment: Speci men Type: BLOOD SPECIMENOrdering Facility: [facility] Address: [address] [place] [address] Performed By: #### 5 7021-8 ####[facility] MILLWNCLIA [id number] [place] [address] [place] Eosinophils (Bld) [#/Vol] 0.06 10*3/uL Normal <0.46 [facility] Comment on above: Order Comment: Speci men Type: BLOOD SPECIMENOrdering Facility: [facility] Address: [address] [place] [address] Performed By: #### 5 7021-8 ####[facility] HOSPITALROCKYLIA [id number] [place] [address] [place] Eosinophils/100 WBC (Bld) 1.6 % Normal [facility] Comment on above: Order Comment: Speci men Type: BLOOD SPECIMENOrdering Facility: [facility] Address: [address] [place] [address] Performed By: #### 5 7021-8 ####[facility] CENTERLIA [id number] [place] [address] [place] Erythrocyte distribution width (RBC) [Ratio] 18.6 % High 11.5-15.0 [facility] Comment on above: Order Comment: Speci men Type: BLOOD SPECIMENOrdering Facility: [facility] Address: [address] [place] [address] Performed By: #### 5 7021-8 ####[facility] HOSPITALWNCLIA [id number] [place] [address] [place] Hematocrit (Bld) [Volume fraction] 23.6 % Low 39.0-51.0 [facility] Comment on above: Order Comment: Speci men Type: BLOOD SPECIMENOrdering Facility: [facility] Address: [address] [place] [address] Performed By: #### 5 7021-8 ####[facility] HOSPITALNCLIA [id number] [place] [address] [place] Hemoglobin (Bld) [Mass/Vol] 7.9 g/dL Low 13.0-17.0 [facility] Comment on above: Order Comment: Speci men Type: BLOOD SPECIMENOrdering Facility: [facility] Address: [address] [place] [address] Performed By: #### 5 7021-8 ####[facility] [id number] [place] [address] [place] Immature granulocytes (Bld) [#/Vol] 10*3/uL Normal <0.10 [facility] Comment on above: Order Comment: Speci men Type: BLOOD SPECIMENOrdering Facility: [facility] Address: [address] [place] [address] Performed By: #### 5 7021-8 ####[facility] [id number] [place] [address] [place] Immature granulocytes/100 WBC (Bld) 0.3 % Normal [facility] Comment on above: Order Comment: Speci men Type: BLOOD SPECIMENOrdering Facility: [facility] Address: [address] [place] [address] Performed By: #### 5 7021-8 ####[facility] [id number] [place] [address] [place] Lymphocytes (Bld) [#/Vol] 0.61 10*3/uL Low 1.00-4.00 [facility] Comment on above: Order Comment: Speci men Type: BLOOD SPECIMENOrdering Facility: [facility] Address: [address] [place] [address] Performed By: #### 5 7021-8 ####[facility] [id number] [place] [address] [place] Lymphocytes/100 WBC (Bld) 16.1 % Normal [facility] Comment on above: Order Comment: Speci men Type: BLOOD SPECIMENOrdering Facility: [facility] Address: [address] [place] [address] Performed By: #### 5 7021-8 ####[facility] [id number] [place] [address] [place] MCH (RBC) [Entitic mass] 32.5 pg Normal 26.0-34.0 [facility] Comment on above: Order Comment: Speci men Type: BLOOD SPECIMENOrdering Facility: [facility] Address: [address] [place] [address] Performed By: #### 5 7021-8 ####[facility] [id number] [place] [address] [place] MCHC (RBC) [Mass/Vol] 33.5 g/dL Normal 30.5-36.0 [facility] Comment on above: Order Comment: Speci men Type: BLOOD SPECIMENOrdering Facility: [facility] Address: [address] [place] [address] Performed By: #### 5 7021-8 ####[facility] [id number] [place] [address] [place] MCV (RBC) [Entitic vol] 97.1 fL Normal 80.0-100.0 C [facility] Comment on above: Order Comment: Speci men Type: BLOOD SPECIMENOrdering Facility: [facility] Address: [address] [place] [address] Performed By: #### 5 7021-8 ####[facility] [id number] [place] [address] [place] Monocytes (Bld) [#/Vol] 0.17 10*3/uL Normal <0.87 [facility] Comment on above: Order Comment: Speci men Type: BLOOD SPECIMENOrdering Facility: [facility] Address: [address] [place] [address] Performed By: #### 5 7021-8 ####[facility] MILLTOWNCLIA [id number] [place] [address] [place] Monocytes/100 WBC (Bld) 4.5 % Normal [facility] Comment on above: Order Comment: Speci men Type: BLOOD SPECIMENOrdering Facility: [facility] Address: [address] [place] [address] Performed By: #### 5 7021-8 ####[facility] MILLTOWNCLIA [id number] [place] [address] [place] Neutrophils (Bld) [#/Vol] 2.93 10*3/uL Normal 1.45-7.50 [facility] Comment on above: Order Comment: Speci men Type: BLOOD SPECIMENOrdering Facility: [facility] Address: [address] [place] [address] Performed By: #### 5 7021-8 ####[facility] HOSPITALWNCLIA [id number] [place] [address] [place] Neutrophils/100 WBC (Bld) 77.2 % Normal [facility] Comment on above: Order Comment: Speci men Type: BLOOD SPECIMENOrdering Facility: [facility] Address: [address] [place] [address] Performed By: #### 5 7021-8 ####[facility] MILLTOWNCLIA [id number] [place] [address] [place] Nucleated RBC (Bld) [#/Vol] 10*3/uL Normal <0.01 [facility] Comment on above: Order Comment: Speci men Type: BLOOD SPECIMENOrdering Facility: [facility] Address: [address] [place] [address] Performed By: #### 5 7021-8 ####[facility] MILLWNCLIA [id number] [place] [address] [place] Nucleated RBC/100 WBC (Bld) [Ratio] 0.0 /100 WBC Normal [facility] Comment on above: Order Comment: Speci men Type: BLOOD SPECIMENOrdering Facility: [facility] Address: [address] [place] [address] Performed By: #### 5 7021-8 ####[facility] CENTERDarrick [id number] [place] [address] [place] Platelet mean volume (Bld) [Entitic vol] 10.8 fL Normal 9.0-12.7 [facility] Comment on above: Order Comment: Speci men Type: BLOOD SPECIMENOrdering Facility: [facility] Address: [address] [place] [address] Performed By: #### 5 7021-8 ####[facility] [id number] [place] [address] [place] Platelets (Bld) [#/Vol] 133 10*3/uL Low 150-400 [facility] Comment on above: Order Comment: Speci men Type: BLOOD SPECIMENOrdering Facility: [facility] Address: [address] [place] [address] Performed By: #### 5 7021-8 ####[facility] CENTERDarrick [id number] [place] [address] [place] RBC (Bld) [#/Vol] 2.43 10*6/uL Low 4.20-6.00 [facility] Comment on above: Order Comment: Speci men Type: BLOOD SPECIMENOrdering Facility: [facility] Address: [address] [place] [address] Performed By: #### 5 7021-8 ####[facility] [id number] [place] [address] [place] WBC (Bld) [#/Vol] 3.79 10*3/uL Normal 3.70-11.00 [facility] Comment on above: Order Comment: Speci men Type: BLOOD SPECIMENOrdering Facility: [facility] Address: [address] [place] [address] Performed By: #### 5 7021-8 ####[facility] MILLWNCLIA [id number] [place] [address] [place] CNPNon 01-13-2025 CNPN Normal [facility] Comprehensive metabolic 2000 panelon 01-13-2025 Albumin [Mass/Vol] 4.4 g/dL Normal 3.9-4.9 [facility] Comment on above: Order Comment: Speci men Type: BLOOD SPECIMENOrdering Facility: [facility] Address: [address] [place] [address] Performed By: #### 2 4323-8 ####[facility] CENTERLIA [id number] [place] [address] [place] ALP [Catalytic activity/Vol] 102 U/L Normal 38-113 [facility] Comment on above: Order Comment: Speci men Type: BLOOD SPECIMENOrdering Facility: [facility] Address: [address] [place] [address] Performed By: #### 2 4323-8 ####[facility] CENTERLIA [id number] [place] [address] [place] ALT [Catalytic activity/Vol] 72 U/L High 10-54 [facility] Comment on above: Order Comment: Speci men Type: BLOOD SPECIMENOrdering Facility: [facility] Address: [address] [place] [address] Performed By: #### 2 4323-8 ####[facility] MILLTOWNCLIA [id number] [place] [address] [place] Anion gap [Moles/Vol] 8 mmol/L Normal 8-15 [facility] Comment on above: Order Comment: Speci men Type: BLOOD SPECIMENOrdering Facility: [facility] Address: [address] [place] [address] Performed By: #### 2 4323-8 ####[facility] BECKYNCLIA [id number] [place] [address] [place] AST [Catalytic activity/Vol] 49 U/L High 14-40 [facility] Comment on above: Order Comment: Speci men Type: BLOOD SPECIMENOrdering Facility: [facility] Address: [address] [place] [address] Performed By: #### 2 4323-8 ####[facility] SHERRIVidhyaNCLIA [id number] [place] [address] [place] Bilirubin [Mass/Vol] 1.0 mg/dL Normal 0.2-1.3 [facility] Comment on above: Order Comment: Speci men Type: BLOOD SPECIMENOrdering Facility: [facility] Address: [address] [place] [address] Performed By: #### 2 4323-8 ####[facility] SHERRIHUDSONNCLIA [id number] [place] [address] [place] Calcium [Mass/Vol] 9.4 mg/dL Normal 8.5-10.2 [facility] Comment on above: Order Comment: Speci men Type: BLOOD SPECIMENOrdering Facility: [facility] Address: [address] [place] [address] Performed By: #### 2 4323-8 ####[facility] HOSPITALNCLIA [id number] [place] [address] [place] Chloride [Moles/Vol] 102 mmol/L Normal 98-107 [facility] Comment on above: Order Comment: Speci men Type: BLOOD SPECIMENOrdering Facility: [facility] Address: [address] [place] [address] Performed By: #### 2 4323-8 ####[facility] HOSPITALNCLIA [id number] [place] [address] [place] CO2 [Moles/Vol] 28 mmol/L Normal 22-30 [facility] Comment on above: Order Comment: Speci men Type: BLOOD SPECIMENOrdering Facility: [facility] Address: [address] [place] [address] Performed By: #### 2 4323-8 ####[facility] [id number] [place] [address] [place] Creatinine [Mass/Vol] 0.73 mg/dL Normal 0.73-1.22 [facility] Comment on above: Order Comment: Speci men Type: BLOOD SPECIMENOrdering Facility: [facility] Address: [address] [place] [address] Performed By: #### 2 4323-8 ####[facility] [id number] [place] [address] [place] Creatinine and Glomerular filtration rate.predicted panel (S/P/Bld) 92 mL/min/1.73m??? Normal >=60 [facility] Comment on above: Order Comment: Speci men Type: BLOOD SPECIMENOrdering Facility: [facility] Address: [address] [place] [address] Result Comment: Lilly mated Glomerular Filtration Rate [...] actual GFR. Performed By: #### 2 4323-8 ####[facility] HOSPITALWNCLIA [id number] [place] [address] [place] Glucose [Mass/Vol] 143 mg/dL High 74-99 [facility] Comment on above: Order Comment: Speci men Type: BLOOD SPECIMENOrdering Facility: [facility] Address: [address] [place] [address] Result Comment: The [place] [employer] (ADA) provides guidance for cutoff [...] Standards of Medical Care in Diabetes 2016, [place] [employer]. Diabetes Care. 2016.39(Suppl 1). Performed By: #### 2 4323-8 ####[facility] HOSPITALROCKYDarrick [id number] [place] [address] [place] Potassium [Moles/Vol] 4.1 mmol/L Normal 3.7-5.1 [facility] Comment on above: Order Comment: Gilma ojeda Type: BLOOD SPECIMENOrdering Facility: [facility] Address: [address] [place], [place] [address] Performed By: #### 2 4323-8 ####[facility] HOSPITALLUISITO [id number] [place] [address] [place] Protein [Mass/Vol] 6.5 g/dL Normal 6.3-8.0 [facility] Comment on above: Order Comment: Erwini rusty Type: BLOOD SPECIMENOrdering Facility: [facility] Address: [address] [place], [place] [address] Performed By: #### 2 4323-8 ####[facility] HOSPITALROCKYLIA [id number] [place] [address] [place] Sodium [Moles/Vol] 138 mmol/L Normal 136-144 [facility] Comment on above: Order Comment: Speci men Type: BLOOD SPECIMENOrdering Facility: [facility] Address: [address] [place] [address] Performed By: #### 2 4323-8 ####[facility] ADRIENLIA [id number] [place], [place] [id number] [place] [address] [place] Urea nitrogen [Mass/Vol] 13 mg/dL Normal 9-24 [facility] Comment on above: Order Comment: Speci men Type: BLOOD SPECIMENOrdering Facility: [facility] Address: [address] [place] [address] Performed By: #### 2 4323-8 ####[facility] SHERRIHUDSONNCLIA [id number] [place], [place] [address] [place] [address] [place] Type AND Screenon 01-13-2025 Ab SCREEN GEL Negative Normal [facility] Comment on above: Order Comment: PRETR ANSFUSION HGB = 8.0 HCT = 23.9 PERFORMED AT [facility] N 06/17/25 AT 0800 N Y A Performed By: #### B CINTHYA [facility] #### [facility] [address] [place], [place], [address] BRCon 12-29-2024 RC Normal [facility] Comment on above: Result Comment: [id number] BP RC TRANSFUSED 12/31/24 1105 [id number] BP RC TRANSFUSED 12/31/24 0844 Performed By: #### B CINTHYA [facility] #### [facility] [address] [place], [place], [address] CBC W Auto Differential pane l (Bld)on 12-29-2024 Basophils (Bld) [#/Vol] 10*3/uL Normal <0.11 C [facility] Comment on above: Order Comment: Speci men Type: BLOOD SPECIMENOrdering Facility: [facility] Address: [address] [place] [address] Performed By: #### 5 7021-8 ####[facility] MILLSAMWNCLIA [id number] [place] [address] [place] Basophils/100 WBC (Bld) 0.3 % Normal [facility] Comment on above: Order Comment: Speci men Type: BLOOD SPECIMENOrdering Facility: [facility] Address: [address] [place] [address] Performed By: #### 5 7021-8 ####[facility] SHERRIHUDSONROCKYLIA [id number] [place] [address] [place] Differential cell count method Nom (Bld) Auto Normal [facility] Comment on above: Order Comment: Speci men Type: BLOOD SPECIMENOrdering Facility: [facility] Address: [address] [place] [address] Performed By: #### 5 7021-8 ####[facility] SHERRIJENNILIA [id number] [place] [address] [place] Eosinophils (Bld) [#/Vol] 0.05 10*3/uL Normal <0.46 [facility] Comment on above: Order Comment: Speci men Type: BLOOD SPECIMENOrdering Facility: [facility] Address: [address] [place] [address] Performed By: #### 5 7021-8 ####[facility] SHERRIVidhyaROCKYLIA [id number] [place] [address] [place] Eosinophils/100 WBC (Bld) 1.3 % Normal [facility] Comment on above: Order Comment: Speci men Type: BLOOD SPECIMENOrdering Facility: [facility] Address: [address] [place] [address] Performed By: #### 5 7021-8 ####[facility] SHERRIHUDSONROCKYLIA [id number] [place] [address] [place] Erythrocyte distribution width (RBC) [Ratio] 19.8 % High 11.5-15.0 [facility] Comment on above: Order Comment: Speci men Type: BLOOD SPECIMENOrdering Facility: [facility] Address: [address] [place] [address] Performed By: #### 5 7021-8 ####[facility] GABBY BECKYNCSAURABH [id number] [place] [address] [place] Hematocrit (Bld) [Volume fraction] 23.4 % Low 39.0-51.0 [facility] Comment on above: Order Comment: Speci men Type: BLOOD SPECIMENOrdering Facility: [facility] Address: [address] [place] [address] Performed By: #### 5 7021-8 ####[facility] HOSPITALLUISITO [id number] [place] [address] [place] Hemoglobin (Bld) [Mass/Vol] 7.6 g/dL Low 13.0-17.0 [facility] Comment on above: Order Comment: Speci men Type: BLOOD SPECIMENOrdering Facility: [facility] Address: [address] [place] [address] Performed By: #### 5 7021-8 ####[facility] HOSPITALLUISITO [id number] [place] [address] [place] Immature granulocytes (Bld) [#/Vol] 10*3/uL Normal <0.10 [facility] Comment on above: Order Comment: Speci men Type: BLOOD SPECIMENOrdering Facility: [facility] Address: [address] [place] [address] Performed By: #### 5 7021-8 ####[facility] HOSPITALNCLIA [id number] [place] [address] [place] Immature granulocytes/100 WBC (Bld) 0.5 % Normal [facility] Comment on above: Order Comment: Speci men Type: BLOOD SPECIMENOrdering Facility: [facility] Address: [address] [place] [address] Performed By: #### 5 7021-8 ####[facility] HOSPITALNCLIA [id number] [place] [address] [place] Lymphocytes (Bld) [#/Vol] 0.69 10*3/uL Low 1.00-4.00 [facility] Comment on above: Order Comment: Speci men Type: BLOOD SPECIMENOrdering Facility: [facility] Address: [address] [place] [address] Performed By: #### 5 7021-8 ####[facility] HOSPITALNCA [id number] [place] [address] [place] Lymphocytes/100 WBC (Bld) 17.7 % Normal [facility] Comment on above: Order Comment: Speci men Type: BLOOD SPECIMENOrdering Facility: [facility] Address: [address] [place] [address] Performed By: #### 5 7021-8 ####[facility] CENTERLI [id number] [place] [address] [place] MCH (RBC) [Entitic mass] 31.9 pg Normal 26.0-34.0 [facility] Comment on above: Order Comment: Speci men Type: BLOOD SPECIMENOrdering Facility: [facility] Address: [address] [place] [address] Performed By: #### 5 7021-8 ####[facility]ENTERLI [id number] [place] [address] [place] MCHC (RBC) [Mass/Vol] 32.5 g/dL Normal 30.5-36.0 [facility] Comment on above: Order Comment: Speci men Type: BLOOD SPECIMENOrdering Facility: [facility] Address: [address] [place] [address] Performed By: #### 5 7021-8 ####[facility] HOSPITALNCLI [id number] [place] [address] [place] MCV (RBC) [Entitic vol] 98.3 fL Normal 80.0-100.0 C [facility] Comment on above: Order Comment: Speci men Type: BLOOD SPECIMENOrdering Facility: [facility] Address: [address] [place] [address] Performed By: #### 5 7021-8 ####[facility] [id number] [place] [address] [place] Monocytes (Bld) [#/Vol] 0.18 10*3/uL Normal <0.87 [facility] Comment on above: Order Comment: Speci men Type: BLOOD SPECIMENOrdering Facility: [facility] Address: [address] [place] [address] Performed By: #### 5 7021-8 ####[facility] [id number] [place] [address] [place] Monocytes/100 WBC (Bld) 4.6 % Normal C [facility] Comment on above: Order Comment: Speci men Type: BLOOD SPECIMENOrdering Facility: [facility] Address: [address] [place] [address] Performed By: #### 5 7021-8 ####[facility] [id number] [place] [address] [place] Neutrophils (Bld) [#/Vol] 2.94 10*3/uL Normal 1.45-7.50 [facility] Comment on above: Order Comment: Speci men Type: BLOOD SPECIMENOrdering Facility: [facility] Address: [address] [place] [address] Performed By: #### 5 7021-8 ####[facility] [id number] [place] [address] [place] Neutrophils/100 WBC (Bld) 75.6 % Normal [facility] Comment on above: Order Comment: Speci men Type: BLOOD SPECIMENOrdering Facility: [facility] Address: [address] [place] [address] Performed By: #### 5 7021-8 ####[facility] HOSPITALNCLESLY [id number] [place] [address] [place] Nucleated RBC (Bld) [#/Vol] 10*3/uL Normal <0.01 [facility] Comment on above: Order Comment: Speci men Type: BLOOD SPECIMENOrdering Facility: [facility] Address: [address] [place] [address] Performed By: #### 5 7021-8 ####[facility] [id number] [place] [address] [place] Nucleated RBC/100 WBC (Bld) [Ratio] 0.0 /100 WBC Normal [facility] Comment on above: Order Comment: Speci men Type: BLOOD SPECIMENOrdering Facility: [facility] Address: [address] [place] [address] Performed By: #### 5 7021-8 ####[facility] [id number] [place] [address] [place] Platelet mean volume (Bld) [Entitic vol] 10.8 fL Normal 9.0-12.7 [facility] Comment on above: Order Comment: Speci men Type: BLOOD SPECIMENOrdering Facility: [facility] Address: [address] [place] [address] Performed By: #### 5 7021-8 ####[facility]ENTERA [id number] [place] [address] [place] Platelets (Bld) [#/Vol] 128 10*3/uL Low 150-400 [facility] Comment on above: Order Comment: Speci men Type: BLOOD SPECIMENOrdering Facility: [facility] Address: [address] [place] [address] Performed By: #### 5 7021-8 ####[facility] ADRIENLIA [id number] [place] [address] [place] RBC (Bld) [#/Vol] 2.38 10*6/uL Low 4.20-6.00 [facility] Comment on above: Order Comment: Speci men Type: BLOOD SPECIMENOrdering Facility: [facility] Address: [address] [place], [place] [address] Performed By: #### 5 7021-8 ####[facility] HOSPITALNCLESLYA [id number] [place] [address] [place] WBC (Bld) [#/Vol] 3.89 10*3/uL Normal 3.70-11.00 [facility] Comment on above: Order Comment: Speci men Type: BLOOD SPECIMENOrdering Facility: [facility] Address: [address] [place], [place] [address] Performed By: #### 5 7021-8 ####[facility] HOSPITALELLIEA [id number] [place] [address] [place] CNPNon 12-29-2024 CNPN Normal [facility] Comprehensive metabolic 2000 panelon 12-29-2024 Albumin [Mass/Vol] 4.4 g/dL Normal 3.9-4.9 [facility] Comment on above: Order Comment: Speci men Type: BLOOD SPECIMENOrdering Facility: [facility] Address: [address] [place], [place] [address] Performed By: #### 2 4323-8 ####[facility] HOSPITALNCLIA [id number] [place] [address] [place] ALP [Catalytic activity/Vol] 108 U/L Normal 38-113 [facility] Comment on above: Order Comment: Speci men Type: BLOOD SPECIMENOrdering Facility: [facility] Address: [address] [place] [address] Performed By: #### 2 4323-8 ####[facility] MILLTOWNCLIA [id number] [place] [address] [place] ALT [Catalytic activity/Vol] 72 U/L High 10-54 [facility] Comment on above: Order Comment: Speci men Type: BLOOD SPECIMENOrdering Facility: [facility] Address: [address] [place] [address] Performed By: #### 2 4323-8 ####[facility] HOSPITALWNCLIA [id number] [place] [address] [place] Anion gap [Moles/Vol] 7 mmol/L Low 8-15 [facility] Comment on above: Order Comment: Speci men Type: BLOOD SPECIMENOrdering Facility: [facility] Address: [address] [place] [address] Performed By: #### 2 4323-8 ####[facility] HOSPITALNCLIA [id number] [place] [address] [place] AST [Catalytic activity/Vol] 52 U/L High 14-40 [facility] Comment on above: Order Comment: Speci men Type: BLOOD SPECIMENOrdering Facility: [facility] Address: [address] [place] [address] Performed By: #### 2 4323-8 ####[facility] HOSPITALWNCLIA [id number] [place] [address] [place] Bilirubin [Mass/Vol] 0.7 mg/dL Normal 0.2-1.3 [facility] Comment on above: Order Comment: Speci men Type: BLOOD SPECIMENOrdering Facility: [facility] Address: [address] [place] [address] Performed By: #### 2 4323-8 ####[facility] HOSPITALNCLIA [id number] [place] [address] [place] Calcium [Mass/Vol] 9.7 mg/dL Normal 8.5-10.2 [facility] Comment on above: Order Comment: Speci men Type: BLOOD SPECIMENOrdering Facility: [facility] Address: [address] [place] [address] Performed By: #### 2 4323-8 ####[facility] MILLTOWNCLIA [id number] [place] [address] [place] Chloride [Moles/Vol] 102 mmol/L Normal 98-107 [facility] Comment on above: Order Comment: Speci men Type: BLOOD SPECIMENOrdering Facility: [facility] Address: [address] [place] [address] Performed By: #### 2 4323-8 ####[facility] HOSPITALNCLI [id number] [place] [address] [place] CO2 [Moles/Vol] 29 mmol/L Normal 22-30 [facility] Comment on above: Order Comment: Speci men Type: BLOOD SPECIMENOrdering Facility: [facility] Address: [address] [place] [address] Performed By: #### 2 4323-8 ####[facility] CENTERLIA [id number] [place] [address] [place] Creatinine [Mass/Vol] 0.73 mg/dL Normal 0.73-1.22 [facility] Comment on above: Order Comment: Speci men Type: BLOOD SPECIMENOrdering Facility: [facility] Address: [address] [place] [address] Performed By: #### 2 4323-8 ####[facility] HOSPITALNCLIA [id number] [place] [address] [place] Creatinine and Glomerular filtration rate.predicted panel (S/P/Bld) 92 mL/min/1.73m??? Normal >=60 [facility] Comment on above: Order Comment: Speci men Type: BLOOD SPECIMENOrdering Facility: [facility] Address: [address] [id number] Result Comment: Lilly mated Glomerular Filtration Rate [...] actual GFR. Performed By: #### 2 4323-8 ####[facility] [id number] [place] [address] [place] Glucose [Mass/Vol] 118 mg/dL High 74-99 [facility] Comment on above: Order Comment: Gilma ojeda Type: BLOOD SPECIMENOrdering Facility: [facility] Address: [address] [place] [address] Result Comment: The [place] [employer] (ADA) provides guidance for cutoff [...] Standards of Medical Care in Diabetes 2016, [place] [employer]. Diabetes Care. 2016.39(Suppl 1). Performed By: #### 2 4323-8 ####[facility] [id number] [place] [address] [place] Potassium [Moles/Vol] 4.1 mmol/L Normal 3.7-5.1 [facility] Comment on above: Order Comment: Gilma ojeda Type: BLOOD SPECIMENOrdering Facility: [facility] Address: [address] [id number] Performed By: #### 2 4323-8 ####[facility] MILLWNCLIA [id number] [place] [address] [place] Protein [Mass/Vol] 6.6 g/dL Normal 6.3-8.0 [facility] Comment on above: Order Comment: Speci men Type: BLOOD SPECIMENOrdering Facility: [facility] Address: [address] [place] [address] Performed By: #### 2 4323-8 ####[facility] CENTERLIA [id number] [place] [address] [place] Sodium [Moles/Vol] 138 mmol/L Normal 136-144 [facility] Comment on above: Order Comment: Speci men Type: BLOOD SPECIMENOrdering Facility: [facility] Address: [address] [place] [address] Performed By: #### 2 4323-8 ####[facility] CENTERLIA [id number] [place] [address] [place] Urea nitrogen [Mass/Vol] 13 mg/dL Normal 9-24 [facility] Comment on above: Order Comment: Speci men Type: BLOOD SPECIMENOrdering Facility: [facility] Address: [address] [place] [address] Performed By: #### 2 4323-8 ####[facility] HOSPITALNCLI [id number] [address] [place] Type AND Screenon 12-29-2024 ABO and Rh group Nom (Bld) Blood group B Rh(D) positive Normal [facility] Comment on above: Order Comment: N 12/31/2024 @0800 N Y A Performed By: #### B DOMONIQUE MENDES #### [facility] [address] [place], [address] B2 Microglob SerPl-mCncon 02 -06-2025 Dqhi-7-Sqavipyqmocfd [Mass/Vol] 3.1 ug/mL High <3.1 [facility] Comment on above: Order Comment: Speci men Type: BLOOD SPECIMENOrdering Facility: [facility] Address: [address] [place] [address] Result Comment: Beta -2 Microglobulin test is performed using the [employer] immunoturbidimetric method. Results obtained with different methods or kits cannot be used interchangeably. Performed By: #### 1 952-1, 2276-4 ####[facility] LABCLIA [id number] [facility]PITALDESK [id number] [id number] [place] BRCon 12-16-2024 RC Normal [facility] Comment on above: Result Comment: [id number] BN RC TRANSFUSED 12/17/24 0859 [id number] OP RC TRANSFUSED 12/17/24 1046 Performed By: #### B [facility] #### [facility] [address] [facility]. [place], [place], [address] CBC W Auto Differential pane l (Bld)on 12-16-2024 Basophils (Bld) [#/Vol] 10*3/uL Normal <0.11 C [facility] Comment on above: Order Comment: Speci men Type: BLOOD SPECIMENOrdering Facility: [facility] Address: [address] [place] [address] Performed By: #### 5 7021-8 ####[facility] [id number] [place] [address] [place] Basophils/100 WBC (Bld) 0.3 % [facility] Comment on above: Order Comment: Speci men Type: BLOOD SPECIMENOrdering Facility: [facility] Address: [address] [place] [address] Performed By: #### 5 7021-8 ####[facility] [id number] [place] [address] [place] Differential cell count method Nom (Bld) Auto Normal [facility] Comment on above: Order Comment: Speci men Type: BLOOD SPECIMENOrdering Facility: [facility] Address: [address] [place] [address] Performed By: #### 5 7021-8 ####[facility] SHERRIHUDSONNCLESLY [id number] [place] [address] [place] Eosinophils (Bld) [#/Vol] 0.03 10*3/uL Normal <0.46 [facility] Comment on above: Order Comment: Speci men Type: BLOOD SPECIMENOrdering Facility: [facility] Address: [address] [place] [address] Performed By: #### 5 7021-8 ####[facility]PITALROCKYOREM [facility] [id number] [place] [address] [place] Eosinophils/100 WBC (Bld) 0.8 % Normal [facility] Comment on above: Order Comment: Speci men Type: BLOOD SPECIMENOrdering Facility: [facility] Address: [address] [place] [address] Performed By: #### 5 7021-8 ####[facility] [id number] [place] [address] [place] Erythrocyte distribution width (RBC) [Ratio] 20.3 % High 11.5-15.0 [facility] Comment on above: Order Comment: Speci men Type: BLOOD SPECIMENOrdering Facility: [facility] Address: [address] [place] [address] Performed By: #### 5 7021-8 ####[facility] HOSPITALNCLI [id number] [place] [address] [place] Hematocrit (Bld) [Volume fraction] 23.6 % Low 39.0-51.0 [facility] Comment on above: Order Comment: Speci men Type: BLOOD SPECIMENOrdering Facility: [facility] Address: [address] [place] [address] Performed By: #### 5 7021-8 ####[facility]PITALNCLIA [id number] [place] [address] [place] Hemoglobin (Bld) [Mass/Vol] 7.7 g/dL Low 13.0-17.0 [facility] Comment on above: Order Comment: Speci men Type: BLOOD SPECIMENOrdering Facility: [facility] Address: [address] [place] [address] Performed By: #### 5 7021-8 ####[facility]A [id number] [place] [address] [place] Immature granulocytes (Bld) [#/Vol] 10*3/uL Normal <0.10 [facility] Comment on above: Order Comment: Speci men Type: BLOOD SPECIMENOrdering Facility: [facility] Address: [address] [place] [address] Performed By: #### 5 7021-8 ####[facility] [id number] [place] [address] [place] Immature granulocytes/100 WBC (Bld) 0.6 % Normal [facility] Comment on above: Order Comment: Speci men Type: BLOOD SPECIMENOrdering Facility: [facility] Address: [address] [place] [address] Performed By: #### 5 7021-8 ####[facility] [id number] [place] [address] [place] Lymphocytes (Bld) [#/Vol] 0.63 10*3/uL Low 1.00-4.00 [facility] Comment on above: Order Comment: Speci men Type: BLOOD SPECIMENOrdering Facility: [facility] Address: [address] [place] [address] Performed By: #### 5 7021-8 ####[facility] CENTERLI [id number] [place] [address] [place] Lymphocytes/100 WBC (Bld) 17.7 % Normal [facility] Comment on above: Order Comment: Speci men Type: BLOOD SPECIMENOrdering Facility: [facility] Address: [address] [place] [address] Performed By: #### 5 7021-8 ####[facility]PITALROCKYOREM [facility] [id number] [place] [address] [place] MCH (RBC) [Entitic mass] 31.6 pg Normal 26.0-34.0 [facility] Comment on above: Order Comment: Speci men Type: BLOOD SPECIMENOrdering Facility: [facility] Address: [address] [place] [address] Performed By: #### 5 7021-8 ####[facility]PITALROCKYOREM [facility] [id number] [place] [address] [place] MCHC (RBC) [Mass/Vol] 32.6 g/dL Normal 30.5-36.0 [facility] Comment on above: Order Comment: Speci men Type: BLOOD SPECIMENOrdering Facility: [facility] Address: [address] [place] [address] Performed By: #### 5 7021-8 ####[facility]ITAL[facility] [id number] [place] [address] [place] MCV (RBC) [Entitic vol] 96.7 fL Normal 80.0-100.0 C [facility] Comment on above: Order Comment: Speci men Type: BLOOD SPECIMENOrdering Facility: [facility] Address: [address] [place] [address] Performed By: #### 5 7021-8 ####[facility]OSPITALNCLIA [id number] [place] [address] [place] Monocytes (Bld) [#/Vol] 0.13 10*3/uL Normal <0.87 [facility] Comment on above: Order Comment: Speci men Type: BLOOD SPECIMENOrdering Facility: [facility] Address: [address] [place] [address] Performed By: #### 5 7021-8 ####[facility]OSPITALNCLIA [id number] [place] [address] [place] Monocytes/100 WBC (Bld) 3.7 % Normal [facility] Comment on above: Order Comment: Speci men Type: BLOOD SPECIMENOrdering Facility: [facility] Address: [address] [place] [address] Performed By: #### 5 7021-8 ####[facility] HOSPITALNCA [id number] [place] [address] [place] Neutrophils (Bld) [#/Vol] 2.74 10*3/uL Normal 1.45-7.50 [facility] Comment on above: Order Comment: Speci men Type: BLOOD SPECIMENOrdering Facility: [facility] Address: [address] [place] [address] Performed By: #### 5 7021-8 ####[facility] [id number] [place] [address] [place] Neutrophils/100 WBC (Bld) 76.9 % Normal [facility] Comment on above: Order Comment: Speci men Type: BLOOD SPECIMENOrdering Facility: [facility] Address: [address] [place] [id number] Performed By: #### 5 7021-8 ####[facility] [id number] [place] [address] [place] Nucleated RBC (Bld) [#/Vol] 10*3/uL Normal <0.01 [facility] Comment on above: Order Comment: Speci men Type: BLOOD SPECIMENOrdering Facility: [facility] Address: [address] [place] [id number] Performed By: #### 5 7021-8 ####[facility] SHERRIVidhyaNCLIA [id number] [place] [address] [place] Nucleated RBC/100 WBC (Bld) [Ratio] 0.0 /100 WBC Normal [facility] Comment on above: Order Comment: Speci men Type: BLOOD SPECIMENOrdering Facility: [facility] Address: [address] [place] [address] Performed By: #### 5 7021-8 ####[facility] HOSPITALROCKYLIA [id number] [place] [address] [place] Platelet mean volume (Bld) [Entitic vol] 10.9 fL Normal 9.0-12.7 [facility] Comment on above: Order Comment: Speci men Type: BLOOD SPECIMENOrdering Facility: [facility] Address: [address] [place] [address] Performed By: #### 5 7021-8 ####[facility]ENTERA [id number] [place] [address] [place] Platelets (Bld) [#/Vol] 141 10*3/uL Low 150-400 [facility] Comment on above: Order Comment: Speci men Type: BLOOD SPECIMENOrdering Facility: [facility] Address: [address] [place] [address] Performed By: #### 5 7021-8 ####[facility] CENTERLIA [id number] [place] [address] [place] RBC (Bld) [#/Vol] 2.44 10*6/uL Low 4.20-6.00 [facility] Comment on above: Order Comment: Speci men Type: BLOOD SPECIMENOrdering Facility: [facility] Address: [address] [place] [address] Performed By: #### 5 7021-8 ####[facility] [id number] [place] [address] [place] WBC (Bld) [#/Vol] 3.56 10*3/uL Low 3.70-11.00 [facility] Comment on above: Order Comment: Speci men Type: BLOOD SPECIMENOrdering Facility: [facility] Address: [address] [place] [address] Performed By: #### 5 7021-8 ####[facility] CENTERDarrick [id number] [place] [address] [place] CNOVSPon 12-16-2024 CNOVSP Normal [facility] CNPNon 12-16-2024 CNPN Normal [facility] Comprehensive metabolic 2000 panelon 12-16-2024 Albumin [Mass/Vol] 4.5 g/dL Normal 3.9-4.9 [facility] Comment on above: Order Comment: Speci men Type: BLOOD SPECIMENOrdering Facility: [facility] Address: [address] [place] [address] Result Comment: Dony ected result: Previously reported as 4.7 g/dL on 12/16/2024 at 11:29 AM EST. Performed By: #### 2 532-0 ####[facility] COMMUN[facility] HOSPITALLUISITO [id number] [place] [address] [place]#### 34240-3 ####[facility] LABCLIA [id number] [place], [place] [address] [place] [address] [place] ALP [Catalytic activity/Vol] 99 U/L Normal 38-113 [facility] Comment on above: Order Comment: Speci men Type: BLOOD SPECIMENOrdering Facility: [facility] Address: [address] [place] [address] Result Comment: Dony ected result: Previously reported as 101 U/L on 12/16/2024 at 11:29 AM EST. Performed By: #### 2 532-0 ####[facility] MEDICAL CENTERSAURABH [id number] [address]#### [address]-7 ####[facility] LABCLIA [id number] [place] [address] [place] ALT With P-5'-P [Catalytic activity/Vol] 60 U/L High 10-54 [facility] Comment on above: Order Comment: Speci men Type: BLOOD SPECIMENOrdering Facility: [facility] Address: [address] [place] [address] Result Comment: Dony ected result: Previously reported as 61 U/L on 12/16/2024 at 11:29 AM EST. Performed By: #### 2 532-0 ####[facility]ENTERA [id number] [address] [place]#### [address]-7 ####[facility] LABCLIA [id number] [place] [address] [place] Anion gap [Moles/Vol] 9 mmol/L Normal 8-15 [facility] Comment on above: Order Comment: Speci men Type: BLOOD SPECIMENOrdering Facility: [facility] Address: [address] [place] [address] Performed By: #### 2 532-0 ####[facility]ENTERA [id number] [address]#### [address]-1 ####[facility] LABCLIA [id number] [place] [address] [place] AST With P-5'-P [Catalytic activity/Vol] 51 U/L High 14-40 [facility] Comment on above: Order Comment: Speci men Type: BLOOD SPECIMENOrdering Facility: [facility] Address: [address] [place] [address] Result Comment: Dony ected result: Previously reported as 43 U/L on 12/16/2024 at 11:29 AM EST. Performed By: #### 2 532-0 ####[facility] MILLWNCLIA [id number] [address]#### 316[address]-1 ####[facility] LABCLIA [id number] [place] [address] [place] Bilirubin [Mass/Vol] 1.0 mg/dL Normal 0.2-1.3 [facility] Comment on above: Order Comment: Speci men Type: BLOOD SPECIMENOrdering Facility: [facility] Address: [address] [place] [address] Performed By: #### 2 532-0 ####[facility]ENTERA [id number] [address] [place]#### 57838-3 ####[facility] LABCLIA [id number] [place] [address] [place] Calcium [Mass/Vol] 9.6 mg/dL Normal 8.5-10.2 [facility] Comment on above: Order Comment: Speci men Type: BLOOD SPECIMENOrdering Facility: [facility] Address: [address] [place] [address] Result Comment: Dony ected result: Previously reported as 10.0 mg/dL on 12/16/2024 at 11:29 AM EST. Performed By: #### 2 532-0 ####[facility]ENTERA [id number] [address] [place]#### [address]-7 ####[facility] LABCLIA [id number] [place] [id number] [place] Chloride [Moles/Vol] 101 mmol/L Normal 98-107 [facility] Comment on above: Order Comment: Speci men Type: BLOOD SPECIMENOrdering Facility: [facility] Address: [address] [place] [address] Performed By: #### 2 532-0 ####[facility] MED[facility] CENTERLIA [id number] [place] [address] [facility] [place]#### 85528-0 ####[facility] LABCLIA [id number] [place] [address] [place] CO2 [Moles/Vol] 26 mmol/L Normal 22-30 [facility] Comment on above: Order Comment: Speci men Type: BLOOD SPECIMENOrdering Facility: [facility] Address: [address] [place] [address] Result Comment: Dony ected result: Previously reported as 28 mmol/L on 12/16/2024 at 11:29 AM EST. Performed By: #### 2 532-0 ####[facility] [id number] [address] [place]#### 83261-9 ####[facility] LABCLIA [id number] [place] [id number] [place] [facility] Creatinine [Mass/Vol] 0.77 mg/dL Normal 0.73-1.22 [facility] Comment on above: Order Comment: Speci men Type: BLOOD SPECIMENOrdering Facility: [facility] Address: [address] [place] [address] Result Comment: Dony ected result: Previously reported as 0.78 mg/dL on 12/16/2024 at 11:29 AM EST. Performed By: #### 2 532-0 ####[facility]ENTERA [id number] [address] [place]#### 61978-7 ####[facility] LABCLIA [id number] [place] [address] [facility] Creatinine and Glomerular filtration rate.predicted panel (S/P/Bld) 91 mL/min/1.73m??? Normal >=60 [facility] Comment on above: Order Comment: Speci men Type: BLOOD SPECIMENOrdering Facility: [facility] Address: [address] [place] [address] Result Comment: Lilly mated Glomerular Filtration Rate [...] AM EST. Performed By: #### 2 532-0 ####[facility] [id number] [address] STATES [place]#### 91416-3 ####[facility] LABCLIA [id number] [place], [place] [address] [place] [address] OF [facility] Glucose [Mass/Vol] 124 mg/dL High 74-99 [facility] Comment on above: Order Comment: Speci men Type: BLOOD SPECIMENOrdering Facility: [facility] Address: [address] [place], [place] [address] Result Comment: The [place] Diabetes Association (ADA) provides guidance for cutoff [...] Standards of Medical Care in Diabetes 2016, [place] [employer]. Diabetes Care. 2016.39(Suppl 1).Corrected result: Previously reported as 132 mg/dL on 12/16/2024 at 11:29 AM EST. Performed By: #### 2 532-0 ####[facility] CENTERLI [id number] [address] STATES [place]#### 64347-0 ####[facility] LABCLIA [id number] [place] [address] [place] Potassium [Moles/Vol] 4.2 mmol/L Normal 3.7-5.1 [facility] Comment on above: Order Comment: Speci men Type: BLOOD SPECIMENOrdering Facility: [facility] Address: [address] [place] [address] Performed By: #### 2 532-0 ####[facility] HOSPITALWNCLIA [id number] [place] [address] [place]#### 22897-1 ####[facility] LABCLIA [id number] [place] [address] [place] Protein [Mass/Vol] 7.0 g/dL Normal 6.3-8.0 [facility] Comment on above: Order Comment: Speci men Type: BLOOD SPECIMENOrdering Facility: [facility] Address: [address] [place] [address] Result Comment: Dony ected result: Previously reported as 7.1 g/dL on 12/16/2024 at 11:29 AM EST. Performed By: #### 2 532-0 ####[facility] HOSPITALWNCLIA [id number] [address] STATES [place]#### 90043-8 ####[facility] LABCLIA [id number] [place] [address] [place] Sodium [Moles/Vol] 136 mmol/L Normal 136-144 [facility] Comment on above: Order Comment: Speci men Type: BLOOD SPECIMENOrdering Facility: [facility] Address: [address] [place] [address] Performed By: #### 2 532-0 ####[facility] HOSPITALNCLIA [id number] [place] [address] [place]#### 69613-7 ####[facility] LABCLIA [id number] [place] [address] [place] Urea nitrogen [Mass/Vol] 11 mg/dL Normal 9-24 [facility] Comment on above: Order Comment: Speci men Type: BLOOD SPECIMENOrdering Facility: [facility] Address: [address] [place] [address] Result Comment: Dony ected result: Previously reported as 12 mg/dL on 12/16/2024 at 11:29 AM EST. Performed By: #### 2 532-0 ####[facility] [id number] [place] [address] [place]#### 04363-2 ####GUILLERMOMEDARDO [facility] LABCLIA [id number] [place] [id number] [place] Ferritin SerPl-mCncon 2024 Ferritin [Mass/Vol] 44743.0 ng/mL High 30.3-565.7 [facility] Comment on above: Order Comment: Speci men Type: BLOOD SPECIMENOrdering Facility: [facility] Address: [address] [place] [address] Performed By: #### 1 952-1, 2276-4 ####[facility] LABCLIA [id number] [facility] [id number] [place] [address] [place] Folate SerPl-mCncon 12-16-19 25 Folate [Mass/Vol] ng/mL Normal >4.7 [facility] Comment on above: Order Comment: Speci men Type: BLOOD SPECIMENOrdering Facility: [facility] Address: [address] [place] [address] Result Comment: A re sult of > 20 ng/mL is not necessarily indicative of a pathologic or treatable condition: it reflects a limitation of the test methodology.Assay reference range: 4.8 to 24.2 ng/mL. Suitable for detection of folate deficiency.Reference:Folate III (Folate III) [package insert V 1.0 Slovak]. [facility], [place], [place]: September 2015. Performed By: #### 2 132-9, 2885-2, 2284-8 ####[facility] LABCLIA [id number] [address] [place] IMMUNOFIXATION SCREEN, SERUM on 12-16-2024 INTERPRETATION ([facility]) Normal [facility] Comment on above: Order Comment: Speci men Type: BLOOD SPECIMENOrdering Facility: [facility] Address: [address] [place] [address] Performed By: #### I FESC ####[facility] LABIA [id number] [place] [address] [place] MPA RESULT M protein is present. Abnormal No M protein is identified. [facility] Comment on above: Order Comment: Speci men Type: BLOOD SPECIMENOrdering Facility: [facility] Address: [address] [place] [address] Performed By: #### I FES ####[facility] LABIA [id number] [address] [place] STAFF REVIEW ([facility]) Reviewed by Ubaldo calderon M.D. Normal [facility] Comment on above: Order Comment: Speci men Type: BLOOD SPECIMENOrdering Facility: [facility] Address: [address] [place] [address] Performed By: #### I FESC ####[facility] LABCLIA [id number] [place] [address] [place] IMMUNOGLOBULINS,IGG,IGA,IGMo n 12-16-2024 IgA [Mass/Vol] 222 mg/dL Normal 70-400 [facility] Comment on above: Order Comment: Speci men Type: BLOOD SPECIMENOrdering Facility: [facility] Address: [address] [place] [address] Performed By: #### S ERIMM ####[facility] LABCLIA [id number] [place] [address] [place] IgG [Mass/Vol] 635 mg/dL Low 700-1600 [facility] Comment on above: Order Comment: Speci men Type: BLOOD SPECIMENOrdering Facility: [facility] Address: [address] [place] [address] Performed By: #### S ERIMM ####[facility] LABCLIA [id number] [place] [address] [place] IgM [Mass/Vol] 637 mg/dL High 40-230 [facility] Comment on above: Order Comment: Speci men Type: BLOOD SPECIMENOrdering Facility: [facility] Address: [address] [place] [address] Performed By: #### S ERIMM ####[facility] LABIA [id number] [place] [address] [place] KAPPA/GREGORY,FREE,SERon 2024 Immunoglobulin light chains.kappa.free (S) [Mass/Vol] 65.8 mg/L High 3.3-19.4 [facility] Comment on above: Order Comment: Speci men Type: BLOOD SPECIMENOrdering Facility: [facility] Address: [address] [place] [address] Result Comment: Rare ly, increased serum free light chains levels may not be detected or accurately quantified due to prozone phenomenon or in high viscosity samples using this immunoturbidimetric assay. Correlation with other laboratory results and clinical findings is recommended.The [place] Free Light Chain was performed using the Binding Site Optilite immunoturbidimetric method. Result obtained with different assay methods or kits cannot be used interchangeably. Performed By: #### K LFRS ####[facility] LABIA [id number] [place] [address] [place] Immunoglobulin light chains.kappa/Immunoglob ulin light chains.lambda (S) [Mass ratio] 2.61 High 0.26-1.65 [facility] Comment on above: Order Comment: Speci men Type: BLOOD SPECIMENOrdering Facility: [facility] Address: [address] [place] [address] Performed By: #### K LFRS ####[facility] LABCLIA [id number] [place] [address] [place] Immunoglobulin light chains.lambda.free [Mass/Vol] 25.2 mg/L Normal 5.7-26.3 [facility] Comment on above: Order Comment: Speci men Type: BLOOD SPECIMENOrdering Facility: [facility] Address: [address] [place] [address] Result Comment: Rare ly, increased serum free [...] used interchangeably. Performed By: #### K LFRS ####[facility] LABCLIA [id number] [place] [address] [place] LDH SerPl-cCncon 12-16-2024 LDH [Catalytic activity/Vol] 159 U/L Normal 135-225 [facility] Comment on above: Order Comment: Speci men Type: BLOOD SPECIMENOrdering Facility: [facility] Address: [address] [place] [address] Performed By: #### 2 532-0 ####[facility] [id number] [place] [address] [place]#### 23477-2 ####[facility] LABCLIA [id number] [place] [address] [place] Methylmalonate SerPl-sCncon 12-16-2024 Methylmalonate [Moles/Vol] 0.11 umol/L Normal <=0.40 [facility] Comment on above: Order Comment: Speci men Type: BLOOD SPECIMENOrdering Facility: [facility] Address: [address] [place] [address] Result Comment: This test was developed, and its performance characteristics determined by the [facility] Department of Pathology and Laboratory Medicine. It has not been cleared or approved by the FDA. The [facility] Department of Pathology and Laboratory Medicine is regulated under CLIA as qualified to perform high-complexity testing. This test is used for clinical purposes. It should not be regarded as investigational or for research. Performed By: #### 1 3964-2 ####[facility] HOSPITALIA [id number] [place] [address] [place] PROTEIN ELECTROPHORESIS SERU M (P)on 12-16-2024 Albumin [Mass/Vol] 4.62 g/dL Normal 3.43-5.41 [facility] Comment on above: Order Comment: Speci men Type: BLOOD SPECIMENOrdering Facility: [facility] Address: [address] [place] [address] Performed By: #### L [id number] ####[facility] [id number] [place] [address] [place] Alpha 1 globulin Elph [Mass/Vol] 0.26 g/dL Normal 0.18-0.43 [facility] Comment on above: Order Comment: Speci men Type: BLOOD SPECIMENOrdering Facility: [facility] Address: [address] [place] [address] Performed By: #### L [id number] ####[facility] LABIA [id number] [place] [address] [place] Alpha 2 globulin Elph [Mass/Vol] 0.54 g/dL Normal 0.42-0.98 [facility] Comment on above: Order Comment: Speci men Type: BLOOD SPECIMENOrdering Facility: [facility] Address: [address] [place] [address] Performed By: #### L [id number] ####[facility] LABIA [id number] [address] [id number] [address] [place] Beta globulin Elph [Mass/Vol] 0.55 g/dL Low 0.61-1.17 [facility] Comment on above: Order Comment: Speci men Type: BLOOD SPECIMENOrdering Facility: [facility] Address: [address] [place] [address] Performed By: #### L [id number] ####[facility] LABCLIA [id number] [place] [address] [place] Gamma globulin Elph [Mass/Vol] 0.93 g/dL Normal 0.53-1.51 [facility] Comment on above: Order Comment: Speci men Type: BLOOD SPECIMENOrdering Facility: [facility] Address: [address] [place] [address] Performed By: #### L [id number] ####[facility] LABCLIA [id number] [place] [address] [place] INTERPRETATION COMMENT FOR PROTEIN ELECTROPHORESIS Normal [facility] Comment on above: Order Comment: Speci men Type: BLOOD SPECIMENOrdering Facility: [facility] Address: [address] [place] [address] Performed By: #### L [id number] ####[facility] LABCLIA [id number] [place] [address] [place] M-PROTEIN LOCATION Normal [facility] Comment on above: Order Comment: Speci men Type: BLOOD SPECIMENOrdering Facility: [facility] Address: [address] [place] [address] Result Comment: Not Applicable. Performed By: #### L [id number] ####[facility] LABCLIA [id number] [place] [address] [place] Protein Fractions [Interp] An atypical region of restricted mobility is identified on protein electrophoresis. Abnormal No definitive M protein is identified on protein electrophor esis. [facility] Comment on above: Order Comment: Speci men Type: BLOOD SPECIMENOrdering Facility: [facility] Address: [address] [place] [address] Performed By: #### L [id number] ####[facility] LABCLIA [id number] [place] [address] [place] Protein.monoclonal Elph [Mass/Vol] 0.00 g/dL Normal <=0.00 [facility] Comment on above: Order Comment: Speci men Type: BLOOD SPECIMENOrdering Facility: [facility] Address: [address] [place] [address] Performed By: #### L [id number] ####[facility] LABIA [id number] [place] [address] [place] SPE STAFF REVIEW Reviewed by Ubaldo calderon M.D. Normal [facility] Comment on above: Order Comment: Speci men Type: BLOOD SPECIMENOrdering Facility: [facility] Address: [address] [place] [address] Performed By: #### L [id number] ####[facility] LABCLIA [id number] [place] [address] [place] Prot SerPl-mCncon 12-16-2024 Protein [Mass/Vol] 6.9 g/dL Normal 6.3-8.0 [facility] Comment on above: Order Comment: Speci men Type: BLOOD SPECIMENOrdering Facility: [facility] Address: [address] [place] [address] Performed By: #### 2 132-9, 2885-2, 2284-8 ####[facility] LABCLIA [id number] [place] [address] [place] Type AND Screenon 12-16-2024 Ab SCREEN GEL Negative Normal [facility] Comment on above: Order Comment: PRETR ANSFUSION HGB = 8.0 HCT = 23.9 PERFORMED AT [facility] N 06/17/25 AT 0800 N Y A Performed By: #### B CINTHYA [facility] #### [facility] [address] [place], [place], [id number] Vit B12 [facility] 025 Cobalamin (Vitamin B12) [Mass/Vol] 574 pg/mL Normal 232-1245 [facility] Comment on above: Order Comment: Speci men Type: BLOOD SPECIMENOrdering Facility: [facility] Address: [address] [place] [address] Performed By: #### 2 132-9, 2885-2, 2284-8 ####[facility] LABCLIA [id number] [address] [id number] [address] [place] BRCon 12-02-2024 RC Normal Neg [facility] Comment on above: Result Comment: [id number] ON RC TRANSFUSED 12/03/24 1026 [id number] ON RC TRANSFUSED 12/03/24 0832 Performed By: #### B , [facility] #### [facility] [address] [place], [place], [id number] CBC W Auto Differential pane l (Bld)on 12-02-2024 Basophils (Bld) [#/Vol] 10*3/uL Normal <0.11 [facility] Comment on above: Order Comment: Speci men Type: BLOOD SPECIMENOrdering Facility: [facility] Address: [address] [place] [address] Performed By: #### 5 7021-8 ####[facility]ITALWNCLIA [id number] [place] [address] [place] Basophils/100 WBC (Bld) 0.3 % Normal [facility] Comment on above: Order Comment: Speci men Type: BLOOD SPECIMENOrdering Facility: [facility] Address: [address] [place] [address] Performed By: #### 5 7021-8 ####[facility]ITALNCLIA [id number] [place] [address] [place] Differential cell count method Nom (Bld) Auto Normal [facility] Comment on above: Order Comment: Speci men Type: BLOOD SPECIMENOrdering Facility: [facility] Address: [address] [place] [address] Performed By: #### 5 7021-8 ####[facility] [id number] [place] [address] [place] Eosinophils (Bld) [#/Vol] 0.03 10*3/uL Normal <0.46 [facility] Comment on above: Order Comment: Speci men Type: BLOOD SPECIMENOrdering Facility: [facility] Address: [address] [place] [address] Performed By: #### 5 7021-8 ####[facility] [id number] [place] [address] [place] Eosinophils/100 WBC (Bld) 0.9 % Normal [facility] Comment on above: Order Comment: Speci men Type: BLOOD SPECIMENOrdering Facility: [facility] Address: [address] [place] [address] Performed By: #### 5 7021-8 ####[facility] [id number] [place] [address] [place] Erythrocyte distribution width (RBC) [Ratio] 20.5 % High 11.5-15.0 [facility] Comment on above: Order Comment: Speci men Type: BLOOD SPECIMENOrdering Facility: [facility] Address: [address] [place] [address] Performed By: #### 5 7021-8 ####[facility] [id number] [place] [address] [place] Hematocrit (Bld) [Volume fraction] 21.8 % Low 39.0-51.0 [facility] Comment on above: Order Comment: Speci men Type: BLOOD SPECIMENOrdering Facility: [facility] Address: [address] [place] [address] Performed By: #### 5 7021-8 ####[facility]ITALNCLIA [id number] [place] [address] [place] Hemoglobin (Bld) [Mass/Vol] 7.3 g/dL Low 13.0-17.0 [facility] Comment on above: Order Comment: Speci men Type: BLOOD SPECIMENOrdering Facility: [facility] Address: [address] [place] [address] Performed By: #### 5 7021-8 ####[facility]PITALNCLIA [id number] [place] [address] [place] Immature granulocytes (Bld) [#/Vol] 10*3/uL Normal <0.10 [facility] Comment on above: Order Comment: Speci men Type: BLOOD SPECIMENOrdering Facility: [facility] Address: [address] [place] [address] Performed By: #### 5 7021-8 ####[facility]ITALNCLIA [id number] [place] [address] [place] Immature granulocytes/100 WBC (Bld) 0.3 % Normal [facility] Comment on above: Order Comment: Speci men Type: BLOOD SPECIMENOrdering Facility: [facility] Address: [address] [place] [address] Performed By: #### 5 7021-8 ####[facility] CENTERLIA [id number] [place] [address] [place] Lymphocytes (Bld) [#/Vol] 0.53 10*3/uL Low 1.00-4.00 [facility] Comment on above: Order Comment: Speci men Type: BLOOD SPECIMENOrdering Facility: [facility] Address: [address] [place] [address] Performed By: #### 5 7021-8 ####[facility] [id number] [place] [address] [place] Lymphocytes/100 WBC (Bld) 16.6 % Normal [facility] Comment on above: Order Comment: Speci men Type: BLOOD SPECIMENOrdering Facility: [facility] Address: [address] [place] [address] Performed By: #### 5 7021-8 ####[facility] HOSPITALLUISITO [id number] [place] [address] [place] MCH (RBC) [Entitic mass] 32.7 pg Normal 26.0-34.0 [facility] Comment on above: Order Comment: Speci men Type: BLOOD SPECIMENOrdering Facility: [facility] Address: [address] [place] [address] Performed By: #### 5 7021-8 ####[facility] HOSPITALROCKYDarrick [id number] [place] [address] [place] MCHC (RBC) [Mass/Vol] 33.5 g/dL Normal 30.5-36.0 [facility] Comment on above: Order Comment: Speci men Type: BLOOD SPECIMENOrdering Facility: [facility] Address: [address] [place] [address] Performed By: #### 5 7021-8 ####[facility] HOSPITALLUISITO [id number] [place] [address] [place] MCV (RBC) [Entitic vol] 97.8 fL Normal 80.0-100.0 C [facility] Comment on above: Order Comment: Speci men Type: BLOOD SPECIMENOrdering Facility: [facility] Address: [address] [place] [address] Performed By: #### 5 7021-8 ####[facility] HOSPITALNCLI [id number] [place] [address] [place] Monocytes (Bld) [#/Vol] 0.15 10*3/uL Normal <0.87 [facility] Comment on above: Order Comment: Speci men Type: BLOOD SPECIMENOrdering Facility: [facility] Address: [address] [place] [address] Performed By: #### 5 7021-8 ####[facility]ENTERA [id number] [place] [address] [place] Monocytes/100 WBC (Bld) 4.7 % Normal [facility] Comment on above: Order Comment: Speci men Type: BLOOD SPECIMENOrdering Facility: [facility] Address: [address] [place] [address] Performed By: #### 5 7021-8 ####[facility] [id number] [place] [address] [place] Neutrophils (Bld) [#/Vol] 2.46 10*3/uL Normal 1.45-7.50 [facility] Comment on above: Order Comment: Speci men Type: BLOOD SPECIMENOrdering Facility: [facility] Address: [address] [place] [address] Performed By: #### 5 7021-8 ####[facility]ENTERA [id number] [place] [address] [place] Neutrophils/100 WBC (Bld) 77.2 % Normal [facility] Comment on above: Order Comment: Speci men Type: BLOOD SPECIMENOrdering Facility: [facility] Address: [address] [place] [address] Performed By: #### 5 7021-8 ####[facility]ENTERA [id number] [place] [address] [place] Nucleated RBC (Bld) [#/Vol] 10*3/uL Normal <0.01 [facility] Comment on above: Order Comment: Speci men Type: BLOOD SPECIMENOrdering Facility: [facility] Address: [address] [place] [address] Performed By: #### 5 7021-8 ####[facility] BECKYNCLIA [id number] [place] [address] [place] Nucleated RBC/100 WBC (Bld) [Ratio] 0.0 /100 WBC Normal [facility] Comment on above: Order Comment: Speci men Type: BLOOD SPECIMENOrdering Facility: [facility] Address: [address] [place] [address] Performed By: #### 5 7021-8 ####[facility] HOSPITALNCLIA [id number] [place] [address] [place] Platelet mean volume (Bld) [Entitic vol] 10.7 fL Normal 9.0-12.7 [facility] Comment on above: Order Comment: Speci men Type: BLOOD SPECIMENOrdering Facility: [facility] Address: [address] [place] [address] Performed By: #### 5 7021-8 ####[facility] HOSPITALNCLIA [id number] [place] [address] [place] Platelets (Bld) [#/Vol] 120 10*3/uL Low 150-400 [facility] Comment on above: Order Comment: Speci men Type: BLOOD SPECIMENOrdering Facility: [facility] Address: [address] [place] [address] Performed By: #### 5 7021-8 ####[facility] HOSPITALNCLIA [id number] [place] [address] [place] RBC (Bld) [#/Vol] 2.23 10*6/uL Low 4.20-6.00 [facility] Comment on above: Order Comment: Speci men Type: BLOOD SPECIMENOrdering Facility: [facility] Address: [address] [place] [address] Performed By: #### 5 7021-8 ####[facility]ITALNC[facility] [id number] [place] [address] [place] WBC (Bld) [#/Vol] 3.19 10*3/uL Low 3.70-11.00 [facility] Comment on above: Order Comment: Speci men Type: BLOOD SPECIMENOrdering Facility: [facility] Address: [address] [place] [address] Performed By: #### 5 7021-8 ####[facility] [id number] [place] [address] [place] CBC W/Diff, Automatedon 11-11 Absolute Neut Normal 2.0-7.7 [facility] Comment on above: Result Comment: NOT NEEDED. ORDERED IN ERROR Performed By: #### Benito MENDES, BR #### [facility] [address] [place], [address] HCT Normal 40-54 [facility] Comment on above: Result Comment: NOT NEEDED. ORDERED IN ERROR Performed By: #### Benito MENDES, BR #### [facility] [address] [place], [address] HGB Normal 13.0-16.5 [facility] Comment on above: Result Comment: NOT NEEDED. ORDERED IN ERROR Performed By: #### Benito MENDES, [facility] #### [facility] [address] [place], [address] MCH Normal 27.0-32.0 [facility] Comment on above: Result Comment: NOT NEEDED. ORDERED IN ERROR Performed By: #### Benito MENDES, [facility] #### [facility] [address] [place], [address] MCHC Normal 32-36 [facility] Comment on above: Result Comment: NOT NEEDED. ORDERED IN ERROR Performed By: #### Benito MENDES, BR #### [facility] [address] [place], [address] MCV Normal 80-94 [facility] Comment on above: Result Comment: NOT NEEDED. ORDERED IN ERROR Performed By: #### Benito MENDES, BR #### [facility] [address] [place], [address] NEUT% Normal 47-70 [facility] Comment on above: Result Comment: NOT NEEDED. ORDERED IN ERROR Performed By: #### B CINTHYA, BRC #### [facility] [address] [place], [address] PLT Normal 150-450 [facility] Comment on above: Result Comment: NOT NEEDED. ORDERED IN ERROR Performed By: #### B CINTHYA, BRC #### [facility] [address] [place], [address] RBC Normal 4.6-6.2 [facility] Comment on above: Result Comment: NOT NEEDED. ORDERED IN ERROR Performed By: #### Benito MENDES, BRC #### [facility] [address] [place], [address] RDW CV Normal 11.6-14.6 [facility] Comment on above: Result Comment: NOT NEEDED. ORDERED IN ERROR Performed By: #### B CINTHYA, BRC #### [facility] [address] [place], [address] RDW SD Normal 35.1-43.9 [facility] Comment on above: Result Comment: NOT NEEDED. ORDERED IN ERROR Performed By: #### B CINTHYA, BRC #### [facility] [address] [place], [address] WBC Normal 4.4-11.0 [facility] Comment on above: Result Comment: NOT NEEDED. ORDERED IN ERROR Performed By: #### B CINTHYA, BRC #### [facility] [address] [place], [address] CNPNon 12-02-2024 CNPN Normal [facility] ilon 12-02-2024 ALB Normal 3.2-5.0 [facility] Comment on above: Result Comment: NOT NEEDED. ORDERED IN ERROR Performed By: #### Benito MENDES, BRC #### [facility] [address] [place], [address] ALK P Normal 45-117 [facility] Comment on above: Result Comment: NOT NEEDED. ORDERED IN ERROR Performed By: #### Benito MENDES, BRC #### [facility] [address] [place], [address] ALT Normal 16-61 [facility] Comment on above: Result Comment: NOT NEEDED. ORDERED IN ERROR Performed By: #### Benito MENDES, BRC #### [facility] [address] [place], [address] AST Normal 15-37 [facility] Comment on above: Result Comment: NOT NEEDED. ORDERED IN ERROR Performed By: #### Benito MENDES, BRC #### [facility] [address] [place], [address] BUN Normal 7-18 [facility] Comment on above: Result Comment: NOT NEEDED. ORDERED IN ERROR Performed By: #### Benito MENDES, BRC #### [facility] [address] [place], [address] BUN/CRE Normal 10-20 [facility] Comment on above: Result Comment: NOT NEEDED. ORDERED IN ERROR Performed By: #### Benito MENDES, BRC #### [facility] [address] [place], [address] CA,Total Normal 8.5-10.1 [facility] Comment on above: Result Comment: NOT NEEDED. ORDERED IN ERROR Performed By: #### Benito MENDES, BRC #### [facility] [address] [place], [address] CL Normal 98-107 [facility] Comment on above: Result Comment: NOT NEEDED. ORDERED IN ERROR Performed By: #### Benito MENDES, BRC #### [facility] [address] [place], [address] CO2 Normal 21.0-32.0 [facility] Comment on above: Result Comment: NOT NEEDED. ORDERED IN ERROR Performed By: #### Benito MENDES, BRC #### [facility] [address] [place], [address] CREAT,SERUM Normal 0.70-1.30 [facility] Comment on above: Result Comment: NOT NEEDED. ORDERED IN ERROR Performed By: #### Benito MENDES, BRC #### [facility] [address] [place], [address] EST GFR Normal >60 [facility] Comment on above: Result Comment: NOT NEEDED. ORDERED IN ERROR Performed By: #### Benito MENDES, [facility] #### [facility] [address] [place], [address] EST GFR - AA Normal >60 [facility] Comment on above: Result Comment: NOT NEEDED. ORDERED IN ERROR Performed By: #### Benito MENDES, BR #### [facility] [address] [place], [address] GAP Normal 5-15 [facility] Comment on above: Result Comment: NOT NEEDED. ORDERED IN ERROR Performed By: #### Benito MENDES, BR #### [facility] [address] [place], [address] GLU Normal 74-106 [facility] Comment on above: Result Comment: NOT NEEDED. ORDERED IN ERROR Performed By: #### Benito MENDES, BRC #### [facility] [address] [place], [address] Potassium Normal 3.5-5.1 [facility] Comment on above: Result Comment: NOT NEEDED. ORDERED IN ERROR Performed By: #### Benito MENDES, BR #### [facility] [address] [place], [address] T BILI Normal 0.20-1.00 [facility] Comment on above: Result Comment: NOT NEEDED. ORDERED IN ERROR Performed By: #### B CINTHYA, BRC #### [facility] [address] [place], [address] T PROT Normal 6.4-8.2 [facility] Comment on above: Result Comment: NOT NEEDED. ORDERED IN ERROR Performed By: #### B CINTHYA, BRC #### [facility] [address] [place], [address] Comprehensive Metabolic Profil Normal 136-145 [facility] Comment on above: Result Comment: NOT NEEDED. ORDERED IN ERROR Performed By: #### B CINTHYA, BRC #### [facility] [address] [place], [address] Comprehensive metabolic 2000 panelon 12-02-2024 Albumin [Mass/Vol] 4.6 g/dL Normal 3.9-4.9 [facility] Comment on above: Order Comment: Speci men Type: BLOOD SPECIMENOrdering Facility: [facility] Address: [address] [place] [address] Performed By: #### 2 4323-8 ####[facility] [id number] [place] [address] [place] ALP [Catalytic activity/Vol] 93 U/L Normal 38-113 [facility] Comment on above: Order Comment: Speci men Type: BLOOD SPECIMENOrdering Facility: [facility] Address: [address] [place] [address] Performed By: #### 2 4323-8 ####[facility] [id number] [place] [address] [place] ALT [Catalytic activity/Vol] 69 U/L High 10-54 [facility] Comment on above: Order Comment: Speci men Type: BLOOD SPECIMENOrdering Facility: [facility] Address: [address] [place] [address] Performed By: #### 2 4323-8 ####[facility] [place] MILLTOWNCLIA [id number] [place] [address] [place] Anion gap [Moles/Vol] 7 mmol/L Low 8-15 [facility] Comment on above: Order Comment: Speci men Type: BLOOD SPECIMENOrdering Facility: [facility] Address: [address] [place] [address] Performed By: #### 2 4323-8 ####[facility] MILLTOWNCLIA [id number] [place] [address] [place] AST [Catalytic activity/Vol] 46 U/L High 14-40 [facility] Comment on above: Order Comment: Speci men Type: BLOOD SPECIMENOrdering Facility: [facility] Address: [address] [place] [address] Performed By: #### 2 4323-8 ####[facility]OSPITALWNCLIA [id number] [place] [address] [place] Bilirubin [Mass/Vol] 1.0 mg/dL Normal 0.2-1.3 [facility] Comment on above: Order Comment: Speci men Type: BLOOD SPECIMENOrdering Facility: [facility] Address: [address] [place] [address] Performed By: #### 2 4323-8 ####[facility] MILLTOWNCLIA [id number] [place] [address] [place] Calcium [Mass/Vol] 9.6 mg/dL Normal 8.5-10.2 [facility] Comment on above: Order Comment: Speci men Type: BLOOD SPECIMENOrdering Facility: [facility] Address: [address] [place] [address] Performed By: #### 2 4323-8 ####[facility] MILLTOWNCLIA [id number] [place] [address] [place] Chloride [Moles/Vol] 101 mmol/L Normal 98-107 [facility] Comment on above: Order Comment: Speci men Type: BLOOD SPECIMENOrdering Facility: [facility] Address: [address] [place] [address] Performed By: #### 2 4323-8 ####[facility] [id number] [place] [address] [place] CO2 [Moles/Vol] 29 mmol/L Normal 22-30 [facility] Comment on above: Order Comment: Speci men Type: BLOOD SPECIMENOrdering Facility: [facility] Address: [address] [place] [address] Performed By: #### 2 4323-8 ####[facility]OSPITALNCLI [id number] [place] [address] [place] Creatinine [Mass/Vol] 0.77 mg/dL Normal 0.73-1.22 [facility] Comment on above: Order Comment: Speci men Type: BLOOD SPECIMENOrdering Facility: [facility] Address: [address] [place] [address] Performed By: #### 2 4323-8 ####[facility]ENTERLI [id number] [address] OF [facility] Creatinine and Glomerular filtration rate.predicted panel (S/P/Bld) 91 mL/min/1.73m??? Normal >=60 [facility] Comment on above: Order Comment: Speci men Type: BLOOD SPECIMENOrdering Facility: [facility] Address: [address] [place] [address] Result Comment: Lilly mated Glomerular Filtration Rate [...] actual GFR. Performed By: #### 2 4323-8 ####[facility] HOSPITALWNCA [id number] [place] [address] [place] Glucose [Mass/Vol] 136 mg/dL High 74-99 [facility] Comment on above: Order Comment: Gilma ojeda Type: BLOOD SPECIMENOrdering Facility: [facility] Address: [address] [place] [address] Result Comment: The [place] [employer] (ADA) provides guidance for cutoff [...] Standards of Medical Care in Diabetes 2016, [place] [employer]. Diabetes Care. 2016.39(Suppl 1). Performed By: #### 2 4323-8 ####[facility] HOSPITALNCLIA [id number] [place] [address] [place] Potassium [Moles/Vol] 4.1 mmol/L Normal 3.7-5.1 [facility] Comment on above: Order Comment: Gilma ojeda Type: BLOOD SPECIMENOrdering Facility: [facility] Address: [address] [place], [place] [address] Performed By: #### 2 4323-8 ####[facility]A [id number] [place] [address] [place] Protein [Mass/Vol] 6.6 g/dL Normal 6.3-8.0 [facility] Comment on above: Order Comment: Gilma ojeda Type: BLOOD SPECIMENOrdering Facility: [facility] Address: [address] [place] [address] Performed By: #### 2 4323-8 ####[facility] [place] JURADOLIA [id number] [place] [address] [place] Sodium [Moles/Vol] 137 mmol/L Normal 136-144 [facility] Comment on above: Order Comment: Speci men Type: BLOOD SPECIMENOrdering Facility: [facility] Address: [facility] [place] [id number] Performed By: #### 2 4323-8 ####[facility] BRITNEYA [id number] [place] [address] [place] Urea nitrogen [Mass/Vol] 12 mg/dL Normal 9-24 [facility] Comment on above: Order Comment: Speci men Type: BLOOD SPECIMENOrdering Facility: [facility] Address: [facility] [place] [id number] Performed By: #### 2 4323-8 ####[facility] [place] [id number] [address] [place] Type AND Screenon 12-02-2024 Ab SCREEN GEL Negative [facility] Comment on above: Order Comment: PRETR ANSFUSION HGB = 8.0 HCT = 23.9 PERFORMED AT [facility] N 06/17/25 AT 0800 N Y A Performed By: #### Benito MENDES [facility] #### [facility] [address] [facility] [place], [place], [address] ABO and Rh group Nom (Bld) Blood group B Rh(D) positive Normal [facility] Comment on above: Order Comment: PRETR ANSFUSION HGB = 8.0 HCT = 23.9 PERFORMED AT [facility] N 06/17/25 AT 0800 N Y A Performed By: #### B CINTHYA [facility] #### [facility] [address] [place], [place], [address] BRCon 11-11-2024 RC Normal [facility] Comment on above: Result Comment: [id number] ON RC TRANSFUSED 11/12/24 0917 [id number] BN RC TRANSFUSED 11/12/24 1153 Performed By: #### B MIRIAN, BTS #### [facility] [address] [place], [address] CBC W Auto Differential pane l (Bld)on 11-11-2024 Basophils (Bld) [#/Vol] 10*3/uL Normal <0.11 C [facility] Comment on above: Order Comment: Speci men Type: BLOOD SPECIMENOrdering Facility: [facility] Address: [address] [place] [address] Performed By: #### 5 7021-8 ####[facility] [id number] [place] [address] [place] Basophils/100 WBC (Bld) 0.2 % Normal C [facility] Comment on above: Order Comment: Speci men Type: BLOOD SPECIMENOrdering Facility: [facility] Address: [address] [place] [address] Performed By: #### 5 7021-8 ####[facility] [id number] [place] [address] [place] Differential cell count method Nom (Bld) Auto Normal [facility] Comment on above: Order Comment: Speci men Type: BLOOD SPECIMENOrdering Facility: [facility] Address: [address] [place] [address] Performed By: #### 5 7021-8 ####[facility] [id number] [place] [address] [place] Eosinophils (Bld) [#/Vol] 10*3/uL Normal <0.46 [facility] Comment on above: Order Comment: Speci men Type: BLOOD SPECIMENOrdering Facility: [facility] Address: [address] [place] [address] Performed By: #### 5 7021-8 ####[facility] MILLWNCLIA [id number] [place] [address] [place] Eosinophils/100 WBC (Bld) 0.4 % Normal [facility] Comment on above: Order Comment: Speci men Type: BLOOD SPECIMENOrdering Facility: [facility] Address: [address] [place] [address] Performed By: #### 5 7021-8 ####[facility] HOSPITALROCKYLIA [id number] [place] [address] [place] Erythrocyte distribution width (RBC) [Ratio] 20.9 % High 11.5-15.0 [facility] Comment on above: Order Comment: Speci men Type: BLOOD SPECIMENOrdering Facility: [facility] Address: [address] [place] [address] Performed By: #### 5 7021-8 ####[facility]A [id number] [place] [address] [place] Hematocrit (Bld) [Volume fraction] 23.3 % Low 39.0-51.0 [facility] Comment on above: Order Comment: Speci men Type: BLOOD SPECIMENOrdering Facility: [facility] Address: [address] [place] [address] Performed By: #### 5 7021-8 ####[facility] CENTERLIA [id number] [place] [address] [place] Hemoglobin (Bld) [Mass/Vol] 7.7 g/dL Low 13.0-17.0 [facility] Comment on above: Order Comment: Speci men Type: BLOOD SPECIMENOrdering Facility: [facility] Address: [address] [place] [address] Performed By: #### 5 7021-8 ####[facility]OSPITALNCLI [id number] [place] [address] [place] Immature granulocytes (Bld) [#/Vol] 10*3/uL Normal <0.10 [facility] Comment on above: Order Comment: Speci men Type: BLOOD SPECIMENOrdering Facility: [facility] Address: [address] [place] [address] Performed By: #### 5 7021-8 ####[facility] [id number] [place] [address] [place] Immature granulocytes/100 WBC (Bld) 0.4 % Normal [facility] Comment on above: Order Comment: Speci men Type: BLOOD SPECIMENOrdering Facility: [facility] Address: [address] [place] [address] Performed By: #### 5 7021-8 ####[facility] [id number] [place] [address] [place] Lymphocytes (Bld) [#/Vol] 0.53 10*3/uL Low 1.00-4.00 [facility] Comment on above: Order Comment: Speci men Type: BLOOD SPECIMENOrdering Facility: [facility] Address: [address] [place] [address] Performed By: #### 5 7021-8 ####[facility] [id number] [place] [address] [place] Lymphocytes/100 WBC (Bld) 10.9 % Normal [facility] Comment on above: Order Comment: Speci men Type: BLOOD SPECIMENOrdering Facility: [facility] Address: [address] [place] [address] Performed By: #### 5 7021-8 ####[facility] HOSPITALNCA [id number] [place] [address] [place] MCH (RBC) [Entitic mass] 32.5 pg Normal 26.0-34.0 [facility] Comment on above: Order Comment: Speci men Type: BLOOD SPECIMENOrdering Facility: [facility] Address: [address] [place] [address] Performed By: #### 5 7021-8 ####[facility] SHERRIVidhyaROCKYSAURABH [id number] [place] [address] [place] MCHC (RBC) [Mass/Vol] 33.0 g/dL Normal 30.5-36.0 [facility] Comment on above: Order Comment: Speci men Type: BLOOD SPECIMENOrdering Facility: [facility] Address: [address] [place] [address] Performed By: #### 5 7021-8 ####[facility] HOSPITALLUISITO [id number] [place] [address] [place] MCV (RBC) [Entitic vol] 98.3 fL Normal 80.0-100.0 C [facility] Comment on above: Order Comment: Speci men Type: BLOOD SPECIMENOrdering Facility: [facility] Address: [address] [place] [address] Performed By: #### 5 7021-8 ####[facility] HOSPITALLUISITO [id number] [place] [address] [place] Monocytes (Bld) [#/Vol] 0.17 10*3/uL Normal <0.87 [facility] Comment on above: Order Comment: Speci men Type: BLOOD SPECIMENOrdering Facility: [facility] Address: [address] [place] [address] Performed By: #### 5 7021-8 ####[facility] HOSPITALLUISITO [id number] [place] [address] [place] Monocytes/100 WBC (Bld) 3.5 % Normal C [facility] Comment on above: Order Comment: Speci men Type: BLOOD SPECIMENOrdering Facility: [facility] Address: [address] [place] [address] Performed By: #### 5 7021-8 ####[facility] MILLTOWNCLIA [id number] [place] [address] [place] Neutrophils (Bld) [#/Vol] 4.11 10*3/uL Normal 1.45-7.50 [facility] Comment on above: Order Comment: Speci men Type: BLOOD SPECIMENOrdering Facility: [facility] Address: [address] [place] [address] Performed By: #### 5 7021-8 ####[facility] HOSPITALNCLIA [id number] [place] [address] [place] Neutrophils/100 WBC (Bld) 84.6 % Normal [facility] Comment on above: Order Comment: Speci men Type: BLOOD SPECIMENOrdering Facility: [facility] Address: [address] [place] [address] Performed By: #### 5 7021-8 ####[facility] CENTERLIA [id number] [place] [address] [place] Nucleated RBC (Bld) [#/Vol] 10*3/uL Normal <0.01 [facility] Comment on above: Order Comment: Speci men Type: BLOOD SPECIMENOrdering Facility: [facility] Address: [address] [place] [address] Performed By: #### 5 7021-8 ####[facility] HOSPITALNCLIA [id number] [place] [address] [place] Nucleated RBC/100 WBC (Bld) [Ratio] 0.0 /100 WBC Normal [facility] Comment on above: Order Comment: Speci men Type: BLOOD SPECIMENOrdering Facility: [facility] Address: [address] [place] [address] Performed By: #### 5 7021-8 ####[facility] HOSPITALNCLIA [id number] [place] [address] [place] Platelet mean volume (Bld) [Entitic vol] 11.3 fL Normal 9.0-12.7 [facility] Comment on above: Order Comment: Speci men Type: BLOOD SPECIMENOrdering Facility: [facility] Address: [address] [place] [address] Performed By: #### 5 7021-8 ####[facility] HOSPITALNCLIA [id number] [place] [address] [place] Platelets (Bld) [#/Vol] 121 10*3/uL Low 150-400 [facility] Comment on above: Order Comment: Speci men Type: BLOOD SPECIMENOrdering Facility: [facility] Address: [address] [place] [address] Performed By: #### 5 7021-8 ####[facility] HOSPITALNCA [id number] [place] [address] [place] RBC (Bld) [#/Vol] 2.37 10*6/uL Low 4.20-6.00 [facility] Comment on above: Order Comment: Speci men Type: BLOOD SPECIMENOrdering Facility: [facility] Address: [address] [place] [address] Performed By: #### 5 7021-8 ####[facility] HOSPITALNCA [id number] [place] [address] [place] WBC (Bld) [#/Vol] 4.86 10*3/uL Normal 3.70-11.00 [facility] Comment on above: Order Comment: Speci men Type: BLOOD SPECIMENOrdering Facility: [facility] Address: [address] [place] [address] Performed By: #### 5 7021-8 ####[facility] HOSPITALNCLIA [id number] [place] [address] [place] CNPNon 11-11-2024 CNPN Normal [facility] metabolic 2000 panelon 11-11-2024 Albumin [Mass/Vol] 4.3 g/dL Normal 3.9-4.9 [facility] Comment on above: Order Comment: Speci men Type: BLOOD SPECIMENOrdering Facility: [facility] Address: [address] [place] [address] Performed By: #### 2 4323-8 ####[facility] HOSPITALNCLIA [id number] [place] [address] [place] ALP [Catalytic activity/Vol] 106 U/L Normal 38-113 [facility] Comment on above: Order Comment: Speci men Type: BLOOD SPECIMENOrdering Facility: [facility] Address: [address] [place] [address] Performed By: #### 2 4323-8 ####[facility] HOSPITALNCA [id number] [place] [address] [place] ALT [Catalytic activity/Vol] 83 U/L High 10-54 [facility] Comment on above: Order Comment: Speci men Type: BLOOD SPECIMENOrdering Facility: [facility] Address: [address] [place] [address] Performed By: #### 2 4323-8 ####[facility] CENTERLIA [id number] [place] [address] [place] Anion gap [Moles/Vol] 9 mmol/L Normal 8-15 [facility] Comment on above: Order Comment: Speci men Type: BLOOD SPECIMENOrdering Facility: [facility] Address: [address] [place] [address] Performed By: #### 2 4323-8 ####[facility] CENTERLIA [id number] [place] [address] [place] AST [Catalytic activity/Vol] 51 U/L High 14-40 [facility] Comment on above: Order Comment: Speci men Type: BLOOD SPECIMENOrdering Facility: [facility] Address: [address] [place] [address] Performed By: #### 2 4323-8 ####[facility] GABBY MILLTOWNCLIA [id number] [place] [address] [place] Bilirubin [Mass/Vol] 0.9 mg/dL Normal 0.2-1.3 [facility] Comment on above: Order Comment: Speci men Type: BLOOD SPECIMENOrdering Facility: [facility] Address: [address] [place] [address] Performed By: #### 2 4323-8 ####[facility] MILLTOWNCLIA [id number] [place] [address] [place] Calcium [Mass/Vol] 9.3 mg/dL Normal 8.5-10.2 [facility] Comment on above: Order Comment: Speci men Type: BLOOD SPECIMENOrdering Facility: [facility] Address: [address] [place] [address] Performed By: #### 2 4323-8 ####[facility] MILLTOWNCLIA [id number] [place] [address] [place] Chloride [Moles/Vol] 99 mmol/L Normal 98-107 [facility] Comment on above: Order Comment: Speci men Type: BLOOD SPECIMENOrdering Facility: [facility] Address: [address] [place] [address] Performed By: #### 2 4323-8 ####[facility] GABBY MILLTOWNCLIA [id number] [place] [address] [place] CO2 [Moles/Vol] 28 mmol/L Normal 22-30 [facility] Comment on above: Order Comment: Speci men Type: BLOOD SPECIMENOrdering Facility: [facility] Address: [address] [place] [address] Performed By: #### 2 4323-8 ####[facility] GABBY MILLTOWNCLIA [id number] [place] [address] [place] Creatinine [Mass/Vol] 0.79 mg/dL Normal 0.73-1.22 [facility] Comment on above: Order Comment: Gilma ojeda Type: BLOOD SPECIMENOrdering Facility: [facility] Address: [address] [place] [address] Performed By: #### 2 4323-8 ####[facility] [id number] [place] [address] [place] Creatinine and Glomerular filtration rate.predicted panel (S/P/Bld) 90 mL/min/1.73m??? Normal >=60 [facility] Comment on above: Order Comment: Gilma ojeda Type: BLOOD SPECIMENOrdering Facility: [facility] Address: [address] [place] [address] Result Comment: Lilly mated Glomerular Filtration Rate [...] actual GFR. Performed By: #### 2 4323-8 ####[facility] [id number] [place] [address] [place] Glucose [Mass/Vol] 127 mg/dL High 74-99 [facility] Comment on above: Order Comment: Gilma ojeda Type: BLOOD SPECIMENOrdering Facility: [facility] Address: [address] [place] [address] Result Comment: The [place] [employer] (ADA) provides guidance for cutoff [...] Standards of Medical Care in Diabetes 2016, [place] [employer]. Diabetes Care. 2016.39(Suppl 1). Performed By: #### 2 4323-8 ####[facility] [id number] [place] [address] [place] Potassium [Moles/Vol] 4.1 mmol/L Normal 3.7-5.1 [facility] Comment on above: Order Comment: Speci men Type: BLOOD SPECIMENOrdering Facility: [facility] Address: [address] [place], [place] [address] Performed By: #### 2 4323-8 ####[facility] [id number] [place] [address] [place] Protein [Mass/Vol] 6.2 g/dL Low 6.3-8.0 [facility] Comment on above: Order Comment: Speci men Type: BLOOD SPECIMENOrdering Facility: [facility] Address: [address] [place], [place] [address] Performed By: #### 2 4323-8 ####[facility] [id number] [place] [address] [place] Sodium [Moles/Vol] 136 mmol/L Normal 136-144 [facility] Comment on above: Order Comment: Speci men Type: BLOOD SPECIMENOrdering Facility: [facility] Address: [address] [place] [address] Performed By: #### 2 4323-8 ####[facility] [id number] [place] [address] [place] Urea nitrogen [Mass/Vol] 13 mg/dL Normal 9-24 [facility] Comment on above: Order Comment: Speci men Type: BLOOD SPECIMENOrdering Facility: [facility] Address: [address] [place] [address] Performed By: #### 2 4323-8 ####[facility] [id number] [place] [address] [place] Type AND Screenon 11-11-2024 Ab SCREEN GEL Negative Normal [facility] Comment on above: Order Comment: PRETR ANSFUSION HGB = 7.7 HCT = 22.4 [facility] 08/26/2025 @ 0800 N Y A Performed By: #### B RC, BTS #### [facility] [address] [place], [address] CBC W Auto Differential pane l (Bld)on 11-04-2024 Basophils (Bld) [#/Vol] 10*3/uL Normal <0.11 C [facility] Comment on above: Order Comment: Speci men Type: BLOOD SPECIMENOrdering Facility: [facility] Address: [address] [place] [address] Performed By: #### 5 7021-8 ####[facility] [id number] [address] [place] Basophils/100 WBC (Bld) 0.3 % Normal [facility] Comment on above: Order Comment: Speci men Type: BLOOD SPECIMENOrdering Facility: [facility] Address: [address] [place] [address] Performed By: #### 5 7021-8 ####[facility]A [id number] [place] [address] [place] Differential cell count method Nom (Bld) Auto Normal [facility] Comment on above: Order Comment: Speci men Type: BLOOD SPECIMENOrdering Facility: [facility] Address: [address] [place] [address] Performed By: #### 5 7021-8 ####[facility] [id number] [place] [address] [place] Eosinophils (Bld) [#/Vol] 0.08 10*3/uL Normal <0.46 [facility] Comment on above: Order Comment: Speci men Type: BLOOD SPECIMENOrdering Facility: [facility] Address: [address] [place] [address] Performed By: #### 5 7021-8 ####[facility] [id number] [place] [address] [place] Eosinophils/100 WBC (Bld) 2.2 % Normal [facility] Comment on above: Order Comment: Speci men Type: BLOOD SPECIMENOrdering Facility: [facility] Address: [address] [place] [address] Performed By: #### 5 7021-8 ####[facility] [id number] [place] [address] [place] Erythrocyte distribution width (RBC) [Ratio] 19.7 % High 11.5-15.0 [facility] Comment on above: Order Comment: Speci men Type: BLOOD SPECIMENOrdering Facility: [facility] Address: [address] [place] [address] Performed By: #### 5 7021-8 ####[facility] [id number] [place] [address] [place] Hematocrit (Bld) [Volume fraction] 25.9 % Low 39.0-51.0 [facility] Comment on above: Order Comment: Speci men Type: BLOOD SPECIMENOrdering Facility: [facility] Address: [address] [place] [address] Performed By: #### 5 7021-8 ####[facility] HOSPITALNCLI [id number] [place] [address] [place] Hemoglobin (Bld) [Mass/Vol] 8.7 g/dL Low 13.0-17.0 [facility] Comment on above: Order Comment: Speci men Type: BLOOD SPECIMENOrdering Facility: [facility] Address: [address] [place] [address] Performed By: #### 5 7021-8 ####[facility] SHERRIJEFEA [id number] [place] [address] [place] Immature granulocytes (Bld) [#/Vol] 10*3/uL Normal <0.10 [facility] Comment on above: Order Comment: Speci men Type: BLOOD SPECIMENOrdering Facility: [facility] Address: [address] [place] [address] Performed By: #### 5 7021-8 ####[facility] [id number] [place] [address] [place] Immature granulocytes/100 WBC (Bld) 0.6 % Normal [facility] Comment on above: Order Comment: Speci men Type: BLOOD SPECIMENOrdering Facility: [facility] Address: [address] [place] [address] Performed By: #### 5 7021-8 ####[facility] [id number] [place] [address] [place] Lymphocytes (Bld) [#/Vol] 0.60 10*3/uL Low 1.00-4.00 [facility] Comment on above: Order Comment: Speci men Type: BLOOD SPECIMENOrdering Facility: [facility] Address: [address] [place] [address] Performed By: #### 5 7021-8 ####[facility]A [id number] [place] [address] [place] Lymphocytes/100 WBC (Bld) 16.8 % Normal [facility] Comment on above: Order Comment: Speci men Type: BLOOD SPECIMENOrdering Facility: [facility] Address: [address] [place] [address] Performed By: #### 5 7021-8 ####[facility]OSPITALNCLIA [id number] [place] [address] [place] MCH (RBC) [Entitic mass] 32.8 pg Normal 26.0-34.0 [facility] Comment on above: Order Comment: Speci men Type: BLOOD SPECIMENOrdering Facility: [facility] Address: [address] [place] [address] Performed By: #### 5 7021-8 ####[facility] CENTERLIA [id number] [place] [address] [place] MCHC (RBC) [Mass/Vol] 33.6 g/dL Normal 30.5-36.0 [facility] Comment on above: Order Comment: Speci men Type: BLOOD SPECIMENOrdering Facility: [facility] Address: [address] [place] [address] Performed By: #### 5 7021-8 ####[facility] [id number] [place] [address] [place] MCV (RBC) [Entitic vol] 97.7 fL Normal 80.0-100.0 C [facility] Comment on above: Order Comment: Speci men Type: BLOOD SPECIMENOrdering Facility: [facility] Address: [address] [place] [address] Performed By: #### 5 7021-8 ####[facility]ENTERA [id number] [place] [address] [place] Monocytes (Bld) [#/Vol] 0.12 10*3/uL Normal <0.87 [facility] Comment on above: Order Comment: Speci men Type: BLOOD SPECIMENOrdering Facility: [facility] Address: [address] [place] [address] Performed By: #### 5 7021-8 ####[facility] [id number] [place] [address] [place] Monocytes/100 WBC (Bld) 3.4 % Normal C [facility] Comment on above: Order Comment: Speci men Type: BLOOD SPECIMENOrdering Facility: [facility] Address: [address] [place] [address] Performed By: #### 5 7021-8 ####[facility] [id number] [place] [address] [place] Neutrophils (Bld) [#/Vol] 2.74 10*3/uL Normal 1.45-7.50 [facility] Comment on above: Order Comment: Speci men Type: BLOOD SPECIMENOrdering Facility: [facility] Address: [address] [place] [address] Performed By: #### 5 7021-8 ####[facility] [id number] [place] [address] [place] Neutrophils/100 WBC (Bld) 76.7 % Normal [facility] Comment on above: Order Comment: Speci men Type: BLOOD SPECIMENOrdering Facility: [facility] Address: [address] [place] [address] Performed By: #### 5 7021-8 ####[facility] CENTERLI [id number] [place] [address] [place] Nucleated RBC (Bld) [#/Vol] 10*3/uL Normal <0.01 [facility] Comment on above: Order Comment: Speci men Type: BLOOD SPECIMENOrdering Facility: [facility] Address: [address] [place] [address] Performed By: #### 5 7021-8 ####[facility] [id number] [place] [address] [place] Nucleated RBC/100 WBC (Bld) [Ratio] 0.0 /100 WBC Normal [facility] Comment on above: Order Comment: Speci men Type: BLOOD SPECIMENOrdering Facility: [facility] Address: [address] [place] [address] Performed By: #### 5 7021-8 ####[facility] BECKYNCLESLYA [id number] [place] [address] [place] Platelet mean volume (Bld) [Entitic vol] 10.5 fL Normal 9.0-12.7 [facility] Comment on above: Order Comment: Speci men Type: BLOOD SPECIMENOrdering Facility: [facility] Address: [address] [place] [address] Performed By: #### 5 7021-8 ####[facility]OSPITALNCLIA [id number] [place] [address] [place] Platelets (Bld) [#/Vol] 117 10*3/uL Low 150-400 [facility] Comment on above: Order Comment: Speci men Type: BLOOD SPECIMENOrdering Facility: [facility] Address: [address] [place] [address] Performed By: #### 5 7021-8 ####[facility]ITALNCLIA [id number] [place] [address] [place] RBC (Bld) [#/Vol] 2.65 10*6/uL Low 4.20-6.00 [facility] Comment on above: Order Comment: Speci men Type: BLOOD SPECIMENOrdering Facility: [facility] Address: [address] [place] [address] Performed By: #### 5 7021-8 ####[facility]PITALNCLIA [id number] [place] [address] [place] WBC (Bld) [#/Vol] 3.57 10*3/uL Low 3.70-11.00 [facility] Comment on above: Order Comment: Speci men Type: BLOOD SPECIMENOrdering Facility: [facility] Address: [address] [place] [address] Performed By: #### 5 7021-8 ####[facility] GABBY MILLTOWNCLIA [id number] [place] [address] [facility] Comprehensive metabolic 2000 panelon 11-04-2024 Albumin [Mass/Vol] 4.4 g/dL Normal 3.9-4.9 [facility] Comment on above: Order Comment: Speci men Type: BLOOD SPECIMENOrdering Facility: [facility] Address: [address] [place] [address] Performed By: #### 2 4323-8 ####[facility] MILLTOWNCLIA [id number] [place] [address] [place] [Catalytic activity/Vol] 115 U/L High 38-113 [facility] Comment on above: Order Comment: Speci men Type: BLOOD SPECIMENOrdering Facility: [facility] Address: [address] [place] [address] Performed By: #### 2 4323-8 ####[facility] MILLSAMWROCKYLIA [id number] [address] [place] [Catalytic activity/Vol] 82 U/L High 10-54 [facility] Comment on above: Order Comment: Speci men Type: BLOOD SPECIMENOrdering Facility: [facility] Address: [address] [place] [address] Performed By: #### 2 4323-8 ####[facility] [facility] MILLTOWNCLIA [id number] [place] [address] [place] Anion gap [Moles/Vol] 10 mmol/L Normal 8-15 [facility] Comment on above: Order Comment: Speci men Type: BLOOD SPECIMENOrdering Facility: [facility] Address: [address] [place] [address] Performed By: #### 2 4323-8 ####[facility] MILLTOWNCLIA [id number] [place] [address] [place] AST [Catalytic activity/Vol] 57 U/L High 14-40 [facility] Comment on above: Order Comment: Speci men Type: BLOOD SPECIMENOrdering Facility: [facility] Address: [address] [place] [address] Performed By: #### 2 4323-8 ####[facility] HOSPITALWNCLIA [id number] [place] [address] [place] Bilirubin [Mass/Vol] 0.7 mg/dL Normal 0.2-1.3 [facility] Comment on above: Order Comment: Speci men Type: BLOOD SPECIMENOrdering Facility: [facility] Address: [address] [place] [address] Performed By: #### 2 4323-8 ####[facility]OSPITALNCLIA [id number] [place] [address] [place] Calcium [Mass/Vol] 9.7 mg/dL Normal 8.5-10.2 [facility] Comment on above: Order Comment: Speci men Type: BLOOD SPECIMENOrdering Facility: [facility] Address: [address] [place] [address] Performed By: #### 2 4323-8 ####[facility] HOSPITALWNCLIA [id number] [place] [address] [place] Chloride [Moles/Vol] 101 mmol/L Normal 98-107 [facility] Comment on above: Order Comment: Speci men Type: BLOOD SPECIMENOrdering Facility: [facility] Address: [address] [place] [address] Performed By: #### 2 4323-8 ####[facility] GABBY MILLTOWNCLIA [id number] [place] [address] [place] CO2 [Moles/Vol] 27 mmol/L Normal 22-30 [facility] Comment on above: Order Comment: Speci men Type: BLOOD SPECIMENOrdering Facility: [facility] Address: [address] [place] [address] Performed By: #### 2 4323-8 ####[facility] GABBY SHERRIHUDSONNCSAURABH [id number] [place] [address] [place] Creatinine [Mass/Vol] 0.76 mg/dL Normal 0.73-1.22 [facility] Comment on above: Order Comment: Speci men Type: BLOOD SPECIMENOrdering Facility: [facility] Address: [address] [place] [address] Performed By: #### 2 4323-8 ####[facility] [id number] [place] [address] [place] Creatinine and Glomerular filtration rate.predicted panel (S/P/Bld) 91 mL/min/1.73m??? Normal >=60 [facility] Comment on above: Order Comment: Speci men Type: BLOOD SPECIMENOrdering Facility: [facility] Address: [address] [place] [address] Result Comment: Lilly mated Glomerular Filtration Rate [...] actual GFR. Performed By: #### 2 4323-8 ####[facility] HOSPITALNCLIA [id number] [place] [address] [place] Glucose [Mass/Vol] 147 mg/dL High 74-99 [facility] Comment on above: Order Comment: Speci men Type: BLOOD SPECIMENOrdering Facility: [facility] Address: [address] [place] [address] Result Comment: The [place] Diabetes Association (ADA) provides guidance for cutoff [...] Standards of Medical Care in Diabetes 2016, [place] [employer]. Diabetes Care. 2016.39(Suppl 1). Performed By: #### 2 4323-8 ####[facility] MILLTOWNCLIA [id number] [place] [address] [place] Potassium [Moles/Vol] 4.0 mmol/L Normal 3.7-5.1 [facility] Comment on above: Order Comment: Speci men Type: BLOOD SPECIMENOrdering Facility: [facility] Address: [address] [place] [address] Performed By: #### 2 4323-8 ####[facility] MILLTOWNCLIA [id number] [place] [address] [place] Protein [Mass/Vol] 6.5 g/dL Normal 6.3-8.0 [facility] Comment on above: Order Comment: Speci men Type: BLOOD SPECIMENOrdering Facility: [facility] Address: [address] [place] [address] Performed By: #### 2 4323-8 ####[facility] MILLTOWNCLIA [id number] [place] [address] [place] Sodium [Moles/Vol] 138 mmol/L Normal 136-144 [facility] Comment on above: Order Comment: Speci men Type: BLOOD SPECIMENOrdering Facility: [facility] Address: [address] [place], [place] [address] Performed By: #### 2 4323-8 ####[facility] MILLTOWNCLIA [id number] [place] [address] [place] Urea nitrogen [Mass/Vol] 12 mg/dL Normal - [facility] Comment on above: Order Comment: Speci men Type: BLOOD SPECIMENOrdering Facility: [facility] Address: [address] [place] [address] Performed By: #### 2 4323-8 ####[facility] CENTERA [id number] [place] [address] [place] BRCon 10-20-2024 RC Normal [facility] Comment on above: Result Comment: [id number] BN RC TRANSFUSED 10/22/24 0938 [id number] BP RC TRANSFUSED 10/22/24 1132 Performed By: #### B , BTS #### [facility] [address] [facility] [place], [address] CBC W Auto Differential pane l (Bld)on 10-20-2024 Basophils (Bld) [#/Vol] 10*3/uL Normal <0.11 [facility] Comment on above: Order Comment: Speci men Type: BLOOD SPECIMENOrdering Facility: [facility] Address: [address] [place] [address] Performed By: #### 5 7021-8 ####[facility] HOSPITALROCKYLIA [id number] [place] [address] [place] Basophils/100 WBC (Bld) 0.4 % Normal [facility] Comment on above: Order Comment: Speci men Type: BLOOD SPECIMENOrdering Facility: [facility] Address: [address] [place] [address] Performed By: #### 5 7021-8 ####[facility] CENTERLIA [id number] [place] [address] [place] Differential cell count method Nom (Bld) Auto Normal [facility] Comment on above: Order Comment: Speci men Type: BLOOD SPECIMENOrdering Facility: [facility] Address: [address] [place] [address] Performed By: #### 5 7021-8 ####[facility] HOSPITALLUISITO [id number] [place] [address] [place] Eosinophils (Bld) [#/Vol] 0.03 10*3/uL Normal <0.46 [facility] Comment on above: Order Comment: Speci men Type: BLOOD SPECIMENOrdering Facility: [facility] Address: [address] [place] [address] Performed By: #### 5 7021-8 ####[facility] [id number] [place] [address] [place] Eosinophils/100 WBC (Bld) 1.3 % Normal [facility] Comment on above: Order Comment: Speci men Type: BLOOD SPECIMENOrdering Facility: [facility] Address: [address] [place] [address] Performed By: #### 5 7021-8 ####[facility] [id number] [place] [address] [place] Erythrocyte distribution width (RBC) [Ratio] 20.3 % High 11.5-15.0 [facility] Comment on above: Order Comment: Speci men Type: BLOOD SPECIMENOrdering Facility: [facility] Address: [address] [place] [address] Performed By: #### 5 7021-8 ####[facility] [id number] [place] [address] [place] Hematocrit (Bld) [Volume fraction] 22.9 % Low 39.0-51.0 [facility] Comment on above: Order Comment: Speci men Type: BLOOD SPECIMENOrdering Facility: [facility] Address: [address] [place] [address] Performed By: #### 5 7021-8 ####[facility] HOSPITALWNCLIA [id number] [place] [address] [place] Hemoglobin (Bld) [Mass/Vol] 7.8 g/dL Low 13.0-17.0 [facility] Comment on above: Order Comment: Speci men Type: BLOOD SPECIMENOrdering Facility: [facility] Address: [address] [place] [address] Performed By: #### 5 7021-8 ####[facility] CENTERLIA [id number] [place] [address] [place] Immature granulocytes (Bld) [#/Vol] 10*3/uL Normal <0.10 [facility] Comment on above: Order Comment: Speci men Type: BLOOD SPECIMENOrdering Facility: [facility] Address: [address] [place] [address] Performed By: #### 5 7021-8 ####[facility]ENTERA [id number] [place] [address] [place] Immature granulocytes/100 WBC (Bld) 0.4 % Normal [facility] Comment on above: Order Comment: Speci men Type: BLOOD SPECIMENOrdering Facility: [facility] Address: [address] [place] [address] Performed By: #### 5 7021-8 ####[facility] CENTERLIA [id number] [place] [address] [place] Lymphocytes (Bld) [#/Vol] 0.69 10*3/uL Low 1.00-4.00 [facility] Comment on above: Order Comment: Speci men Type: BLOOD SPECIMENOrdering Facility: [facility] Address: [address] [place] [address] Performed By: #### 5 7021-8 ####[facility] HOSPITALNCLIA [id number] [place] [address] [place] Lymphocytes/100 WBC (Bld) 29.5 % Normal [facility] Comment on above: Order Comment: Speci men Type: BLOOD SPECIMENOrdering Facility: [facility] Address: [address] [place] [address] Performed By: #### 5 7021-8 ####[facility] [id number] [place] [address] [place] MCH (RBC) [Entitic mass] 32.8 pg Normal 26.0-34.0 [facility] Comment on above: Order Comment: Speci men Type: BLOOD SPECIMENOrdering Facility: [facility] Address: [address] [place] [address] Performed By: #### 5 7021-8 ####[facility] [id number] [place] [address] [place] MCHC (RBC) [Mass/Vol] 34.1 g/dL Normal 30.5-36.0 [facility] Comment on above: Order Comment: Speci men Type: BLOOD SPECIMENOrdering Facility: [facility] Address: [address] [place] [address] Performed By: #### 5 7021-8 ####[facility] [id number] [place] [address] [place] MCV (RBC) [Entitic vol] 96.2 fL Normal 80.0-100.0 [facility] Comment on above: Order Comment: Speci men Type: BLOOD SPECIMENOrdering Facility: [facility] Address: [address] [place], [place] [address] Performed By: #### 5 7021-8 ####[facility] [id number] [place] [address] [place] Monocytes (Bld) [#/Vol] 0.13 10*3/uL Normal <0.87 [facility] Comment on above: Order Comment: Speci men Type: BLOOD SPECIMENOrdering Facility: [facility] Address: [address] [place] [address] Performed By: #### 5 7021-8 ####[facility] HOSPITALLUISITO [id number] [place] [address] [place] Monocytes/100 WBC (Bld) 5.6 % Normal [facility] Comment on above: Order Comment: Speci men Type: BLOOD SPECIMENOrdering Facility: [facility] Address: [address] [place] [address] Performed By: #### 5 7021-8 ####[facility] [id number] [place] [address] [place] Neutrophils (Bld) [#/Vol] 1.47 10*3/uL Normal 1.45-7.50 [facility] Comment on above: Order Comment: Speci men Type: BLOOD SPECIMENOrdering Facility: [facility] Address: [address] [place] [address] Performed By: #### 5 7021-8 ####[facility] [id number] [place] [address] [place] Neutrophils/100 WBC (Bld) 62.8 % Normal [facility] Comment on above: Order Comment: Speci men Type: BLOOD SPECIMENOrdering Facility: [facility] Address: [address] [place] [address] Performed By: #### 5 7021-8 ####[facility]ENTERA [id number] [place] [address] [place] Nucleated RBC (Bld) [#/Vol] 10*3/uL Normal <0.01 [facility] Comment on above: Order Comment: Speci men Type: BLOOD SPECIMENOrdering Facility: [facility] Address: [address] [place] [address] Performed By: #### 5 7021-8 ####[facility] ADRIENLIA [id number] [place] [address] [place] Nucleated RBC/100 WBC (Bld) [Ratio] 0.0 /100 WBC Normal [facility] Comment on above: Order Comment: Speci men Type: BLOOD SPECIMENOrdering Facility: [facility] Address: [address] [place] [address] Performed By: #### 5 7021-8 ####[facility] HOSPITALELLIEA [id number] [place] [address] [place] Platelet mean volume (Bld) [Entitic vol] 10.6 fL Normal 9.0-12.7 [facility] Comment on above: Order Comment: Speci men Type: BLOOD SPECIMENOrdering Facility: [facility] Address: [address] [place] [address] Performed By: #### 5 7021-8 ####[facility]ENTERA [id number] [place] [address] [place] Platelets (Bld) [#/Vol] 123 10*3/uL Low 150-400 [facility] Comment on above: Order Comment: Speci men Type: BLOOD SPECIMENOrdering Facility: [facility] Address: [address] [place] [address] Performed By: #### 5 7021-8 ####[facility] HOSPITALELLIEA [id number] [place] [address] [place] RBC (Bld) [#/Vol] 2.38 10*6/uL Low 4.20-6.00 [facility] Comment on above: Order Comment: Speci men Type: BLOOD SPECIMENOrdering Facility: [facility] Address: [address] [place] [address] Performed By: #### 5 7021-8 ####[facility] HOSPITALNCLIA [id number] [place] [address] [place] WBC (Bld) [#/Vol] 2.34 10*3/uL Low 3.70-11.00 [facility] Comment on above: Order Comment: Speci men Type: BLOOD SPECIMENOrdering Facility: [facility] Address: [address] [place] [address] Performed By: #### 5 7021-8 ####[facility] CENTERDarrick [id number] [place] [address] [place] CNPNon 10-20-2024 CNPN Normal [facility] metabolic 2000 panelon 10-20-2024 Albumin [Mass/Vol] 4.5 g/dL Normal 3.9-4.9 [facility] Comment on above: Order Comment: Speci men Type: BLOOD SPECIMENOrdering Facility: [facility] Address: [address] [place] [address] Performed By: #### 2 4323-8 ####[facility] [id number] [place] [address] [place] ALP [Catalytic activity/Vol] 96 U/L Normal 38-113 [facility] Comment on above: Order Comment: Speci men Type: BLOOD SPECIMENOrdering Facility: [facility] Address: [address] [place] [address] Performed By: #### 2 4323-8 ####[facility] [id number] [place] [address] [place] ALT [Catalytic activity/Vol] 89 U/L High 10-54 [facility] Comment on above: Order Comment: Speci men Type: BLOOD SPECIMENOrdering Facility: [facility] Address: [address] [place] [address] Performed By: #### 2 4323-8 ####[facility] HOSPITALNCLIA [id number] [place] [address] [place] Anion gap [Moles/Vol] 8 mmol/L Normal 8-15 [facility] Comment on above: Order Comment: Speci men Type: BLOOD SPECIMENOrdering Facility: [facility] Address: [address] [place] [address] Performed By: #### 2 4323-8 ####[facility] CENTERLI [id number] [place] [address] [place] AST [Catalytic activity/Vol] 56 U/L High 14-40 [facility] Comment on above: Order Comment: Speci men Type: BLOOD SPECIMENOrdering Facility: [facility] Address: [address] [place] [address] Performed By: #### 2 4323-8 ####[facility]ITAL[facility] [id number] [place] [address] [place] Bilirubin [Mass/Vol] 0.8 mg/dL Normal 0.2-1.3 [facility] Comment on above: Order Comment: Speci men Type: BLOOD SPECIMENOrdering Facility: [facility] Address: [address] [place] [address] Performed By: #### 2 4323-8 ####[facility] [id number] [place] [address] [place] Calcium [Mass/Vol] 9.6 mg/dL Normal 8.5-10.2 [facility] Comment on above: Order Comment: Speci men Type: BLOOD SPECIMENOrdering Facility: [facility] Address: [address] [place] [address] Performed By: #### 2 4323-8 ####[facility] [id number] [place] [address] [place] Chloride [Moles/Vol] 100 mmol/L Normal 98-107 [facility] Comment on above: Order Comment: Speci men Type: BLOOD SPECIMENOrdering Facility: [facility] Address: [address] [place] [place] [id number] Performed By: #### 2 4323-8 ####[facility] MED[facility] CENTERLIA [id number] [place] [address] [place] CO2 [Moles/Vol] 27 mmol/L Normal 22-30 [facility] Comment on above: Order Comment: Speci men Type: BLOOD SPECIMENOrdering Facility: [facility] Address: [address] [place] [address] Performed By: #### 2 4323-8 ####[facility] [id number] [place] [address] [place] Creatinine [Mass/Vol] 0.71 mg/dL Low 0.73-1.22 [facility] Comment on above: Order Comment: Speci men Type: BLOOD SPECIMENOrdering Facility: [facility] Address: [address] [place] [address] Performed By: #### 2 4323-8 ####[facility] [id number] [place] [address] [place] Creatinine and Glomerular filtration rate.predicted panel (S/P/Bld) 93 mL/min/1.73m??? Normal >=60 [facility] Comment on above: Order Comment: Speci men Type: BLOOD SPECIMENOrdering Facility: [facility] Address: [address] [place] [address] Result Comment: Lilly mated Glomerular Filtration Rate [...] actual GFR. Performed By: #### 2 4323-8 ####[facility] HOSPITALNCLIA [id number] [place] [address] [place] Glucose [Mass/Vol] 95 mg/dL Normal 74-99 [facility] Comment on above: Order Comment: Speci men Type: BLOOD SPECIMENOrdering Facility: [facility] Address: [address] [place], [place] [address] Result Comment: The [place] Diabetes Association (ADA) provides guidance for cutoff [...] Standards of Medical Care in Diabetes 2016, [place] [employer]. Diabetes Care. 2016.39(Suppl 1). Performed By: #### 2 4323-8 ####[facility] HOSPITALWESSENTIA HEALTHA [id number] [place] [address] [place] Potassium [Moles/Vol] 4.3 mmol/L Normal 3.7-5.1 [facility] Comment on above: Order Comment: Erwini men Type: BLOOD SPECIMENOrdering Facility: [facility] Address: [address] [place] [address] Performed By: #### 2 4323-8 ####[facility] HOSPITALWMDLIDarrick [id number] [place] [address] [place] Protein [Mass/Vol] 6.6 g/dL Normal 6.3-8.0 [facility] Comment on above: Order Comment: Speci men Type: BLOOD SPECIMENOrdering Facility: [facility] Address: [address] [place], [place] [address] Performed By: #### 2 4323-8 ####[facility] HOSPITALWNCLIA [id number] [place] [address] [place] Sodium [Moles/Vol] 135 mmol/L Low 136-144 [facility] Comment on above: Order Comment: Speci men Type: BLOOD SPECIMENOrdering Facility: [facility] Address: [address] [place] [address] Performed By: #### 2 4323-8 ####[facility] [id number] [address] OF [facility] Urea nitrogen [Mass/Vol] 11 mg/dL Normal 9-24 [facility] Comment on above: Order Comment: Speci men Type: BLOOD SPECIMENOrdering Facility: [facility] Address: [address] [place] [address] Performed By: #### 2 4323-8 ####[facility] [id number] [address] OF [facility] Type AND Screenon 10-20-2024 Ab SCREEN GEL Negative Normal [facility] Comment on above: Order Comment: PRETR ANSFUSION HGB = 7.7 HCT = 22.4 PERFORMED AT [facility] N 08/26/2025 @ 0800 N Y A Performed By: #### Benito VELA BTS #### [facility] [address] [facility]. [place], [place], [id number] ABO and Rh group Nom (Bld) Blood group B Rh(D) positive Normal [facility] Comment on above: Order Comment: PRETR ANSFUSION HGB = 7.7 HCT = 22.4 PERFORMED AT [facility] N 08/26/2025 @ 0800 N Y A Performed By: #### B MIRIAN BTS #### [facility] [address] [place], [place], [id number] CBC W Auto Differential pane l (Bld)on 10-13-2024 Basophils (Bld) [#/Vol] 10*3/uL Normal <0.11 C [facility] Comment on above: Order Comment: Speci men Type: BLOOD SPECIMENOrdering Facility: [facility] Address: [address] [place] [address] Performed By: #### 5 7021-8 ####[facility] MILLWNCLIA [id number] [place] [address] [place] Basophils/100 WBC (Bld) 0.5 % Normal [facility] Comment on above: Order Comment: Speci men Type: BLOOD SPECIMENOrdering Facility: [facility] Address: [address] [place] [address] Performed By: #### 5 7021-8 ####[facility] CENTERLIA [id number] [place] [address] [place] Differential cell count method Nom (Bld) Auto Normal [facility] Comment on above: Order Comment: Speci men Type: BLOOD SPECIMENOrdering Facility: [facility] Address: [address] [place] [address] Performed By: #### 5 7021-8 ####[facility] CENTERLIA [id number] [place] [address] [place] Eosinophils (Bld) [#/Vol] 0.05 10*3/uL Normal <0.46 [facility] Comment on above: Order Comment: Speci men Type: BLOOD SPECIMENOrdering Facility: [facility] Address: [address] [place] [address] Performed By: #### 5 7021-8 ####[facility] CENTERLIA [id number] [place] [address] [place] Eosinophils/100 WBC (Bld) 2.4 % Normal [facility] Comment on above: Order Comment: Speci men Type: BLOOD SPECIMENOrdering Facility: [facility] Address: [address] [place] [address] Performed By: #### 5 7021-8 ####[facility] HOSPITALNCLIA [id number] [place] [address] [place] Erythrocyte distribution width (RBC) [Ratio] 19.2 % High 11.5-15.0 [facility] Comment on above: Order Comment: Speci men Type: BLOOD SPECIMENOrdering Facility: [facility] Address: [address] [place] [address] Performed By: #### 5 7021-8 ####[facility] [id number] [place] [address] [place] Hematocrit (Bld) [Volume fraction] 26.3 % Low 39.0-51.0 [facility] Comment on above: Order Comment: Speci men Type: BLOOD SPECIMENOrdering Facility: [facility] Address: [address] [place] [address] Performed By: #### 5 7021-8 ####[facility] [id number] [place] [address] [place] Hemoglobin (Bld) [Mass/Vol] 8.8 g/dL Low 13.0-17.0 [facility] Comment on above: Order Comment: Speci men Type: BLOOD SPECIMENOrdering Facility: [facility] Address: [address] [place] [address] Performed By: #### 5 7021-8 ####[facility] [id number] [place] [address] [place] Immature granulocytes (Bld) [#/Vol] 0.03 10*3/uL Normal <0.10 [facility] Comment on above: Order Comment: Speci men Type: BLOOD SPECIMENOrdering Facility: [facility] Address: [address] [place] [address] Performed By: #### 5 7021-8 ####[facility] [id number] [place] [address] [place] Immature granulocytes/100 WBC (Bld) 1.5 % Normal [facility] Comment on above: Order Comment: Speci men Type: BLOOD SPECIMENOrdering Facility: [facility] Address: [address] [place] [address] Performed By: #### 5 7021-8 ####[facility] SHERRIHUDSONLUISITO [id number] [place] [address] [place] Lymphocytes (Bld) [#/Vol] 0.50 10*3/uL Low 1.00-4.00 [facility] Comment on above: Order Comment: Speci men Type: BLOOD SPECIMENOrdering Facility: [facility] Address: [address] [place] [address] Performed By: #### 5 7021-8 ####[facility] [id number] [place] [address] [place] Lymphocytes/100 WBC (Bld) 24.4 % Normal [facility] Comment on above: Order Comment: Speci men Type: BLOOD SPECIMENOrdering Facility: [facility] Address: [address] [place] [address] Performed By: #### 5 7021-8 ####[facility] [id number] [place] [address] [place] MCH (RBC) [Entitic mass] 32.2 pg Normal 26.0-34.0 [facility] Comment on above: Order Comment: Speci men Type: BLOOD SPECIMENOrdering Facility: [facility] Address: [address] [place] [address] Performed By: #### 5 7021-8 ####[facility] [id number] [place] [address] [place] MCHC (RBC) [Mass/Vol] 33.5 g/dL Normal 30.5-36.0 [facility] Comment on above: Order Comment: Speci men Type: BLOOD SPECIMENOrdering Facility: [facility] Address: [address] [place] [address] Performed By: #### 5 7021-8 ####[facility] MILLWNCLIA [id number] [place] [address] [place] MCV (RBC) [Entitic vol] 96.3 fL Normal 80.0-100.0 C [facility] Comment on above: Order Comment: Speci men Type: BLOOD SPECIMENOrdering Facility: [facility] Address: [address] [place] [address] Performed By: #### 5 7021-8 ####[facility] CENTERLIA [id number] [place] [address] [place] Monocytes (Bld) [#/Vol] 0.10 10*3/uL Normal <0.87 [facility] Comment on above: Order Comment: Speci men Type: BLOOD SPECIMENOrdering Facility: [facility] Address: [address] [place] [address] Performed By: #### 5 7021-8 ####[facility] [id number] [place] [address] [place] Monocytes/100 WBC (Bld) 4.9 % Normal C [facility] Comment on above: Order Comment: Speci men Type: BLOOD SPECIMENOrdering Facility: [facility] Address: [address] [place] [address] Performed By: #### 5 7021-8 ####[facility] CENTERLIA [id number] [place] [address] [place] Neutrophils (Bld) [#/Vol] 1.36 10*3/uL Low 1.45-7.50 [facility] Comment on above: Order Comment: Speci men Type: BLOOD SPECIMENOrdering Facility: [facility] Address: [address] [place] [address] Performed By: #### 5 7021-8 ####[facility]ITALNCLIA [id number] [place] [address] [place] Neutrophils/100 WBC (Bld) 66.3 % Normal [facility] Comment on above: Order Comment: Speci men Type: BLOOD SPECIMENOrdering Facility: [facility] Address: [address] [place] [address] Performed By: #### 5 7021-8 ####[facility] [id number] [place] [address] [place] Nucleated RBC (Bld) [#/Vol] 10*3/uL Normal <0.01 [facility] Comment on above: Order Comment: Speci men Type: BLOOD SPECIMENOrdering Facility: [facility] Address: [address] [place] [address] Performed By: #### 5 7021-8 ####[facility] [id number] [place] [address] [place] Nucleated RBC/100 WBC (Bld) [Ratio] 0.0 /100 WBC Normal [facility] Comment on above: Order Comment: Speci men Type: BLOOD SPECIMENOrdering Facility: [facility] Address: [address] [place] [address] Performed By: #### 5 7021-8 ####[facility] [id number] [place] [address] [place] Platelet mean volume (Bld) [Entitic vol] 10.1 fL Normal 9.0-12.7 [facility] Comment on above: Order Comment: Speci men Type: BLOOD SPECIMENOrdering Facility: [facility] Address: [address] [place] [address] Performed By: #### 5 7021-8 ####[facility] [id number] [place] [address] [place] Platelets (Bld) [#/Vol] 104 10*3/uL Low 150-400 [facility] Comment on above: Order Comment: Speci men Type: BLOOD SPECIMENOrdering Facility: [facility] Address: [address] [place] [address] Performed By: #### 5 7021-8 ####[facility] BECKYROCKYSAURABH [id number] [place] [address] [place] RBC (Bld) [#/Vol] 2.73 10*6/uL Low 4.20-6.00 [facility] Comment on above: Order Comment: Speci men Type: BLOOD SPECIMENOrdering Facility: [facility] Address: [address] [place] [address] Performed By: #### 5 7021-8 ####[facility] SHERRIHUDSONROCKYLESLYDarrick [id number] [place] [address] [place] WBC (Bld) [#/Vol] 2.05 10*3/uL Low 3.70-11.00 [facility] Comment on above: Order Comment: Speci men Type: BLOOD SPECIMENOrdering Facility: [facility] Address: [address] [place] [address] Performed By: #### 5 7021-8 ####[facility] SHERRIHUDSONROCKYLESLYDarrick [id number] [place] [address] [place] CNOVSPon 10-13-2024 CNOVSP Normal [facility] CNPNon 10-13-2024 CNPN Normal [facility] Comprehensive metabolic 2000 panelon 10-13-2024 Albumin [Mass/Vol] 4.6 g/dL Normal 3.9-4.9 [facility] Comment on above: Order Comment: Speci men Type: BLOOD SPECIMENOrdering Facility: [facility] Address: [address] [place], [place] [address] Performed By: #### 2 4323-8 ####[facility] SHERRIHUDSONNCLIA [id number] [place] [address] [place] ALP [Catalytic activity/Vol] 102 U/L Normal 38-113 [facility] Comment on above: Order Comment: Speci men Type: BLOOD SPECIMENOrdering Facility: [facility] Address: [address] [place] [address] Performed By: #### 2 4323-8 ####[facility] SHERRIVidhyaNCLIA [id number] [place] [address] [place] ALT [Catalytic activity/Vol] 106 U/L High 10-54 [facility] Comment on above: Order Comment: Speci men Type: BLOOD SPECIMENOrdering Facility: [facility] Address: [address] [place] [address] Performed By: #### 2 4323-8 ####[facility] HOSPITALNCLIA [id number] [place] [address] [place] Anion gap [Moles/Vol] 9 mmol/L Normal 8-15 [facility] Comment on above: Order Comment: Speci men Type: BLOOD SPECIMENOrdering Facility: [facility] Address: [address] [place] [address] Performed By: #### 2 4323-8 ####[facility] HOSPITALNCLIA [id number] [place] [address] [place] AST [Catalytic activity/Vol] 69 U/L High 14-40 [facility] Comment on above: Order Comment: Speci men Type: BLOOD SPECIMENOrdering Facility: [facility] Address: [address] [place] [address] Performed By: #### 2 4323-8 ####[facility] HOSPITALNCLIA [id number] [place] [address] [place] Bilirubin [Mass/Vol] 0.8 mg/dL Normal 0.2-1.3 [facility] Comment on above: Order Comment: Speci men Type: BLOOD SPECIMENOrdering Facility: [facility] Address: [address] [place] [address] Performed By: #### 2 4323-8 ####[facility] GABBY MILLTOWNCLIA [id number] [place] [address] [place] Calcium [Mass/Vol] 10.2 mg/dL Normal 8.5-10.2 [facility] Comment on above: Order Comment: Speci men Type: BLOOD SPECIMENOrdering Facility: [facility] Address: [address] [place] [address] Performed By: #### 2 4323-8 ####[facility] MILLTOWNCLIA [id number] [place] [address] [place] Chloride [Moles/Vol] 102 mmol/L Normal 98-107 [facility] Comment on above: Order Comment: Speci men Type: BLOOD SPECIMENOrdering Facility: [facility] Address: [address] [place] [address] Performed By: #### 2 4323-8 ####[facility] HOSPITALWNCLIA [id number] [place] [address] [place] CO2 [Moles/Vol] 25 mmol/L Normal 22-30 [facility] Comment on above: Order Comment: Speci men Type: BLOOD SPECIMENOrdering Facility: [facility] Address: [address] [place] [address] Performed By: #### 2 4323-8 ####[facility] MILLTOWNCLIA [id number] [place] [address] [place] Creatinine [Mass/Vol] 0.81 mg/dL Normal 0.73-1.22 [facility] Comment on above: Order Comment: Speci men Type: BLOOD SPECIMENOrdering Facility: [facility] Address: [address] [place] [address] Performed By: #### 2 4323-8 ####[facility] MILLTOWNCLIA [id number] [place] [address] [place] Creatinine and Glomerular filtration rate.predicted panel (S/P/Bld) 89 mL/min/1.73m??? Normal >=60 [facility] Comment on above: Order Comment: Gilma ojeda Type: BLOOD SPECIMENOrdering Facility: [facility] Address: [address] [place] [address] Result Comment: Lilly mated Glomerular Filtration Rate [...] actual GFR. Performed By: #### 2 4323-8 ####[facility] [id number] [place] [address] [place] Glucose [Mass/Vol] 106 mg/dL High 74-99 [facility] Comment on above: Order Comment: Gilma ojeda Type: BLOOD SPECIMENOrdering Facility: [facility] Address: [address] [place] [address] Result Comment: The [place] [employer] (ADA) provides guidance for cutoff [...] Standards of Medical Care in Diabetes 2016, [place] [employer]. Diabetes Care. 2016.39(Suppl 1). Performed By: #### 2 4323-8 ####[facility] [id number] [place] [address] [place] Potassium [Moles/Vol] 4.5 mmol/L Normal 3.7-5.1 [facility] Comment on above: Order Comment: Speci men Type: BLOOD SPECIMENOrdering Facility: [facility] Address: [address] [place] [address] Performed By: #### 2 4323-8 ####[facility] JAMESWNCLIA [id number] [place] [address] [place] Protein [Mass/Vol] 6.8 g/dL Normal 6.3-8.0 [facility] Comment on above: Order Comment: Speci men Type: BLOOD SPECIMENOrdering Facility: [facility] Address: [address] [place] [address] Performed By: #### 2 4323-8 ####[facility]OSPITALNCLIA [id number] [place] [address] [place] Sodium [Moles/Vol] 136 mmol/L Normal 136-144 [facility] Comment on above: Order Comment: Speci men Type: BLOOD SPECIMENOrdering Facility: [facility] Address: [address] [place] [address] Performed By: #### 2 4323-8 ####[facility] HOSPITALNCLIA [id number] [place] [address] [place] Urea nitrogen [Mass/Vol] 10 mg/dL Normal 9-24 [facility] Comment on above: Order Comment: Speci men Type: BLOOD SPECIMENOrdering Facility: [facility] Address: [address] [place] [address] Performed By: #### 2 4323-8 ####[facility] MILLTOWNCLIA [id number] [place] [address] [place] BRCon 09-30-2024 RC Normal [facility] Comment on above: Result Comment: [id number] RC TRANSFUSED 10/01/24 0856 [id number] BP RC TRANSFUSED 10/01/24 1058 Performed By: #### B RC, BTS #### [facility] [address] [place], [address] CBC W Auto Differential pane l (Bld)on 09-30-2024 Anisocytosis Ql (Bld) Present Normal [facility] Comment on above: Order Comment: Speci men Type: BLOOD SPECIMENOrdering Facility: [facility] Address: [address] [place] [address] Performed By: #### 5 7021-8 ####[facility] HOSPITALWNCLIA [id number] [address] LABORATORYCLIA [id number] [place] [address] [place] Basophils (Bld) [#/Vol] 0.04 10*3/uL Normal <0.11 [facility] Comment on above: Order Comment: Speci men Type: BLOOD SPECIMENOrdering Facility: [facility] Address: [address] [place] [address] Performed By: #### 5 7021-8 ####[facility] HOSPITALWMDLIA [id number] [address] LABORATORYCLIA [id number] [place] [address] [place] Basophils/100 WBC (Bld) 2.0 % Normal [facility] Comment on above: Order Comment: Speci men Type: BLOOD SPECIMENOrdering Facility: [facility] Address: [address] [place] [address] Performed By: #### 5 7021-8 ####[facility] HOSPITALWNCLIA [id number] [address] LABORATORYCLIA [id number] [place] [address] [place] Differential cell count method Nom (Bld) Manual Normal [facility] Comment on above: Order Comment: Speci men Type: BLOOD SPECIMENOrdering Facility: [facility] Address: [address] [place] [address] Performed By: #### 5 7021-8 ####[facility] MILLTOWNCLIA [id number] [address] LABORATORYCLIA [id number] [place] [address] [place] Eosinophils (Bld) [#/Vol] 0.00 10*3/uL Normal <0.46 [facility] Comment on above: Order Comment: Speci men Type: BLOOD SPECIMENOrdering Facility: [facility] Address: [address] [place] [address] Performed By: #### 5 7021-8 ####[facility] HOSPITALROCKYLIA [id number] [address] LABORATORYCLIA [id number] [place] [address] [place] Eosinophils/100 WBC (Bld) 0.0 % Normal [facility] Comment on above: Order Comment: Speci men Type: BLOOD SPECIMENOrdering Facility: [facility] Address: [address] [place] [address] Performed By: #### 5 7021-8 ####[facility] HOSPITALWROCKYLIA [id number] [address] LABORATORYCLIA [id number] [place] [address] [place] Erythrocyte distribution width (RBC) [Ratio] 19.0 % High 11.5-15.0 [facility] Comment on above: Order Comment: Speci men Type: BLOOD SPECIMENOrdering Facility: [facility] Address: [address] [place] [address] Performed By: #### 5 7021-8 ####[facility] HOSPITALWNCLIA [id number] [address] LABORATORYCLIA [id number] [place] [address] [place] Hematocrit (Bld) [Volume fraction] 23.6 % Low 39.0-51.0 [facility] Comment on above: Order Comment: Speci men Type: BLOOD SPECIMENOrdering Facility: [facility] Address: [address] [place] [address] Performed By: #### 5 7021-8 ####[facility] CENTERLIA [id number] [address] LABORATORYIA [id number] [place] [address] [place] Hemoglobin (Bld) [Mass/Vol] 7.8 g/dL Low 13.0-17.0 [facility] Comment on above: Order Comment: Speci men Type: BLOOD SPECIMENOrdering Facility: [facility] Address: [address] [place] [address] Performed By: #### 5 7021-8 ####[facility] CENTERLIA [id number] [address] LABORATORYCLIA [id number] [place] [address] [place] [employer] [facility] bodies LM Ql (Bld) Occasional Normal [facility] Comment on above: Order Comment: Speci men Type: BLOOD SPECIMENOrdering Facility: [facility] Address: [address] [place] [address] Performed By: #### 5 7021-8 ####[facility] CENTERLIA [id number] [address] LABORATORYCLIA [id number] [place] [address] [place] Lymphocytes (Bld) [#/Vol] 0.68 10*3/uL Low 1.00-4.00 [facility] Comment on above: Order Comment: Speci men Type: BLOOD SPECIMENOrdering Facility: [facility] Address: [address] [place] [address] Performed By: #### 5 7021-8 ####[facility] SHERRITOWNCLIA [id number] [address] LABORATORYCLIA [id number] [address] Lymphocytes/100 WBC (Bld) 38.0 % Normal [facility] Comment on above: Order Comment: Speci men Type: BLOOD SPECIMENOrdering Facility: [facility] Address: [address] [place] [address] Performed By: #### 5 7021-8 ####[facility]OSPITALNCLIA [id number] [address] LABORATORYCLIA [id number] [place] [address] [place] [facility] MCH (RBC) [Entitic mass] 31.8 pg Normal 26.0-34.0 [facility] Comment on above: Order Comment: Speci men Type: BLOOD SPECIMENOrdering Facility: [facility] Address: [address] [place] [address] Performed By: #### 5 7021-8 ####[facility] HOSPITALWNCLIA [id number] [address] LABORATORYCLIA [id number] [place] [address] [place] MCHC (RBC) [Mass/Vol] 33.1 g/dL Normal 30.5-36.0 [facility] Comment on above: Order Comment: Speci men Type: BLOOD SPECIMENOrdering Facility: [facility] Address: [address] [place] [address] Performed By: #### 5 7021-8 ####[facility] CENTERTOWNCLIA [id number] [address] LABORATORYCLIA [id number] [place] [address] [place] MCV (RBC) [Entitic vol] 96.3 fL Normal 80.0-100.0 [facility] Comment on above: Order Comment: Speci men Type: BLOOD SPECIMENOrdering Facility: [facility] Address: [address] [place] [address] Performed By: #### 5 7021-8 ####[facility] HOSPITALWNCLIA [id number] [address] LABORATORYCLIA [id number] [address] [place] Monocytes (Bld) [#/Vol] 0.09 10*3/uL Normal <0.87 [facility] Comment on above: Order Comment: Speci men Type: BLOOD SPECIMENOrdering Facility: [facility] Address: [address] [place] [address] Performed By: #### 5 7021-8 ####[facility]OSPITALNCLIA [id number] [address] LABORATORYCLIA [id number] [place] [address] [place] Monocytes/100 WBC (Bld) 5.0 % Normal [facility] Comment on above: Order Comment: Speci men Type: BLOOD SPECIMENOrdering Facility: [facility] Address: [address] [place] [address] Performed By: #### 5 7021-8 ####[facility] HOSPITALWNCLIA [id number] [address] LABORATORYCLIA [id number] [place] [address] [place] Neutrophils (Bld) [#/Vol] 0.98 10*3/uL Low 1.45-7.50 [facility] Comment on above: Order Comment: Speci men Type: BLOOD SPECIMENOrdering Facility: [facility] Address: [address] [place] [address] Performed By: #### 5 7021-8 ####[facility] MILLTOWNCLIA [id number] [address] LABORATORYCLIA [id number] [place] [address] [place] Neutrophils/100 WBC (Bld) 55.0 % Normal [facility] Comment on above: Order Comment: Speci men Type: BLOOD SPECIMENOrdering Facility: [facility] Address: [address] [place] [address] Performed By: #### 5 7021-8 ####[facility] HOSPITALWNCLIA [id number] [address] LABORATORYCLIA [id number] [place] [address] [place] Nucleated RBC (Bld) [#/Vol] 10*3/uL Normal <0.01 [facility] Comment on above: Order Comment: Speci men Type: BLOOD SPECIMENOrdering Facility: [facility] Address: [address] [place] [address] Performed By: #### 5 7021-8 ####[facility] HOSPITALWNCLIA [id number] [address] LABORATORYCLIA [id number] [place] [address] [place] Nucleated RBC/100 WBC (Bld) [Ratio] 0.0 /100 WBC Normal [facility] Comment on above: Order Comment: Speci men Type: BLOOD SPECIMENOrdering Facility: [facility] Address: [address] [place] [address] Performed By: #### 5 7021-8 ####[facility] MILLTOWNCLIA [id number] [address] LABORATORYCLIA [id number] [place] [address] [place] Ovalocytes LM Ql (Bld) Few Normal Cl [facility] Comment on above: Order Comment: Speci men Type: BLOOD SPECIMENOrdering Facility: [facility] Address: [address] [place] [address] Performed By: #### 5 7021-8 ####[facility]PITALNCLIA [id number] [address] LABORATORYCLIA [id number] [place] [address] [place] Platelet mean volume (Bld) [Entitic vol] 11.0 fL Normal 9.0-12.7 [facility] Comment on above: Order Comment: Speci men Type: BLOOD SPECIMENOrdering Facility: [facility] Address: [address] [place] [address] Performed By: #### 5 7021-8 ####[facility]CL[facility] [id number] [address] LABORATORYCLIA [id number] [place] [address] [place] Platelets (Bld) [#/Vol] 82 10*3/uL Low 150-400 C [facility] Comment on above: Order Comment: Speci men Type: BLOOD SPECIMENOrdering Facility: [facility] Address: [address] [place] [address] Result Comment: No c lot detected. Performed By: #### 5 7021-8 ####[facility]ITALWNCLIA [id number] [address] LABORATORYCLIA [id number] [place] [address] [place] Platelets Estimate (Bld) [#/Vol] Decreased Normal [facility] Comment on above: Order Comment: Speci men Type: BLOOD SPECIMENOrdering Facility: [facility] Address: [address] [place] [address] Performed By: #### 5 7021-8 ####[facility]ENTERA [id number] [address] LABORATORYCLIA [id number] [place] [address] [place] RBC (Bld) [#/Vol] 2.45 10*6/uL Low 4.20-6.00 [facility] Comment on above: Order Comment: Speci men Type: BLOOD SPECIMENOrdering Facility: [facility] Address: [address] [place] [address] Performed By: #### 5 7021-8 ####[facility]ENTERLIA [id number] [address] LABORATORYCLIA [id number] [address] [place] RBC FRAGMENTS Few Abnormal None Seen [facility] Comment on above: Order Comment: Speci men Type: BLOOD SPECIMENOrdering Facility: [facility] Address: [address] [place] [address] Performed By: #### 5 7021-8 ####[facility] CENTERLIA [id number] [address] LABORATORYIA [id number] [address] STATES OF [facility] RED CELL MORPH Reviewed: see result s of individual morphologies Normal [facility] Comment on above: Order Comment: Speci men Type: BLOOD SPECIMENOrdering Facility: [facility] Address: [address] [place] [address] Performed By: #### 5 7021-8 ####[facility] MILLTOWNCLIA [id number] [address] LABORATORYCLIA [id number] [place] [address] [place] WBC (Bld) [#/Vol] 1.78 10*3/uL Low 3.70-11.00 [facility] Comment on above: Order Comment: Speci men Type: BLOOD SPECIMENOrdering Facility: [facility] Address: [address] [place] [address] Performed By: #### 5 7021-8 ####[facility] HOSPITALROCKYLIA [id number] [address] LABORATORYCLIA [id number] [place] [address] [place] CNPNon 09-30-2024 CNPN Normal [facility] Comprehensive metabolic 2000 panelon 09-30-2024 Albumin [Mass/Vol] 4.5 g/dL Normal 3.9-4.9 [facility] Comment on above: Order Comment: Speci men Type: BLOOD SPECIMENOrdering Facility: [facility] Address: [address] [place] [id number] Performed By: #### 2 4323-8 ####[facility] HOSPITALWNCLIA [id number] [place] [address] [place] ALP [Catalytic activity/Vol] 95 U/L Normal 38-113 [facility] Comment on above: Order Comment: Speci men Type: BLOOD SPECIMENOrdering Facility: [facility] Address: [address] [place] [address] Performed By: #### 2 4323-8 ####[facility] MILLTOWNCLIA [id number] [place] [address] [place] ALT [Catalytic activity/Vol] 82 U/L High 10-54 [facility] Comment on above: Order Comment: Speci men Type: BLOOD SPECIMENOrdering Facility: [facility] Address: [address] [place] [address] Performed By: #### 2 4323-8 ####[facility] HOSPITALWNCLIA [id number] [place] [address] [place] Anion gap [Moles/Vol] 11 mmol/L Normal 8-15 [facility] Comment on above: Order Comment: Speci men Type: BLOOD SPECIMENOrdering Facility: [facility] Address: [address] [place] [address] Performed By: #### 2 4323-8 ####[facility] CENTERLIA [id number] [place] [address] [place] AST [Catalytic activity/Vol] 53 U/L High 14-40 [facility] Comment on above: Order Comment: Speci men Type: BLOOD SPECIMENOrdering Facility: [facility] Address: [address] [place] [address] Performed By: #### 2 4323-8 ####[facility]A [id number] [place] [address] [place] Bilirubin [Mass/Vol] 0.9 mg/dL Normal 0.2-1.3 [facility] Comment on above: Order Comment: Speci men Type: BLOOD SPECIMENOrdering Facility: [facility] Address: [address] [place] [address] Performed By: #### 2 4323-8 ####[facility] HOSPITALNCLIA [id number] [place] [address] [place] Calcium [Mass/Vol] 9.8 mg/dL Normal 8.5-10.2 [facility] Comment on above: Order Comment: Speci men Type: BLOOD SPECIMENOrdering Facility: [facility] Address: [address] [place] [address] Performed By: #### 2 4323-8 ####[facility] HOSPITALNCLIA [id number] [place] [address] [place] Chloride [Moles/Vol] 99 mmol/L Normal 98-107 [facility] Comment on above: Order Comment: Speci men Type: BLOOD SPECIMENOrdering Facility: [facility] Address: [address] [place] [address] Performed By: #### 2 4323-8 ####[facility] [id number] [place] [address] [place] CO2 [Moles/Vol] 25 mmol/L Normal 22-30 [facility] Comment on above: Order Comment: Speci men Type: BLOOD SPECIMENOrdering Facility: [facility] Address: [address] [place] [address] Performed By: #### 2 4323-8 ####[facility] [id number] [place] [address] [place] Creatinine [Mass/Vol] 0.80 mg/dL Normal 0.73-1.22 [facility] Comment on above: Order Comment: Speci men Type: BLOOD SPECIMENOrdering Facility: [facility] Address: [address] [place] [address] Performed By: #### 2 4323-8 ####[facility] [id number] [address] Creatinine and Glomerular filtration rate.predicted panel (S/P/Bld) 89 mL/min/1.73m??? Normal >=60 [facility] Comment on above: Order Comment: Speci men Type: BLOOD SPECIMENOrdering Facility: [facility] Address: [address] [place] [address] Result Comment: Lilly mated Glomerular Filtration Rate [...] actual GFR. Performed By: #### 2 4323-8 ####[facility] HOSPITALWNCLIDarrick [id number] [place] [address] [place] Glucose [Mass/Vol] 150 mg/dL High 74-99 [facility] Comment on above: Order Comment: Gilma ojeda Type: BLOOD SPECIMENOrdering Facility: [facility] Address: [address] [place] [address] Result Comment: The [place] Diabetes Association (ADA) provides guidance for cutoff [...] Standards of Medical Care in Diabetes 2016, [place] [employer]. Diabetes Care. 2016.39(Suppl 1). Performed By: #### 2 4323-8 ####[facility] HOSPITALNCA [id number] [place] [address] [place] Potassium [Moles/Vol] 4.1 mmol/L Normal 3.7-5.1 [facility] Comment on above: Order Comment: Gilma ojeda Type: BLOOD SPECIMENOrdering Facility: [facility] Address: [address] [place] [address] Performed By: #### 2 4323-8 ####[facility] HOSPITALNCLIA [id number] [place] [address] [place] Protein [Mass/Vol] 6.7 g/dL Normal 6.3-8.0 [facility] Comment on above: Order Comment: Speci men Type: BLOOD SPECIMENOrdering Facility: [facility] Address: [facility] [place] [address] Performed By: #### 2 4323-8 ####[facility] HOSPITALWMDLIA [id number] [place] [address] [place] Sodium [Moles/Vol] 135 mmol/L Low 136-144 [facility] Comment on above: Order Comment: Speci men Type: BLOOD SPECIMENOrdering Facility: [facility] Address: [address] [place] [address] Performed By: #### 2 4323-8 ####[facility] [id number] [place] [address] [place] Urea nitrogen [Mass/Vol] 13 mg/dL Normal 9-24 [facility] Comment on above: Order Comment: Speci men Type: BLOOD SPECIMENOrdering Facility: [facility] Address: [address] [place] [address] Performed By: #### 2 4323-8 ####[facility] [id number] [address] STATES OF [facility] Type AND Screenon 09-30-2024 Ab SCREEN GEL PENDING Normal [facility] Comment on above: Order Comment: PRETR ANSFUSION HGB = 7.7 HCT = 22.4 PERFORMED AT [facility] N 08/26/2025 @ 0800 N Y A Performed By: #### B MARGO VELA #### [facility] [address] [place], [address] ABO and Rh group Nom (Bld) Blood group B Rh(D) positive Normal [facility] Comment on above: Order Comment: PRETR ANSFUSION HGB = 7.7 HCT = 22.4 PERFORMED AT [facility] N 08/26/2025 @ 0800 N Y A Performed By: #### B ARNIE VELAS #### [facility] [address] [place], [address] CNPNon 09-27-2024 CNPN Normal [facility] BRCon 09-23-2024 RC Normal Neg [facility] Comment on above: Result Comment: [id number] BP RC TRANSFUSED 09/24/24 0850 Performed By: #### B ARNIE VELAS #### [facility] [address] [place], [address] CBC W Auto Differential pane l (Bld)on 09-23-2024 Anisocytosis Ql (Bld) Present Normal [facility] Comment on above: Order Comment: Speci men Type: BLOOD SPECIMENOrdering Facility: [facility] Address: [address] [place] [address] Performed By: #### 5 7021-8 ####[facility] MILLTOWNCLIA [id number] [address] LABORATORYCLIA [id number] [place] [address] [place] Basophils (Bld) [#/Vol] 0.00 10*3/uL Normal <0.11 [facility] Comment on above: Order Comment: Speci men Type: BLOOD SPECIMENOrdering Facility: [facility] Address: [address] [place] [address] Performed By: #### 5 7021-8 ####[facility] MILLTOWNCLIA [id number] [address] LABORATORYCLIA [id number] [place] [address] [place] Basophils/100 WBC (Bld) 0.0 % Normal [facility] Comment on above: Order Comment: Speci men Type: BLOOD SPECIMENOrdering Facility: [facility] Address: [address] [place] [address] Performed By: #### 5 7021-8 ####[facility] MILLTOWNCLIA [id number] [address] LABORATORYCLIA [id number] [place] [address] [place] Dacrocytes LM Ql (Bld) Few Normal Cl [facility] Comment on above: Order Comment: Speci men Type: BLOOD SPECIMENOrdering Facility: [facility] Address: [address] [place] [address] Performed By: #### 5 7021-8 ####[facility] HOSPITALWNCLIA [id number] [address] LABORATORYIA [id number] [place] [address] [place] Differential cell count method Nom (Bld) Manual Normal [facility] Comment on above: Order Comment: Speci men Type: BLOOD SPECIMENOrdering Facility: [facility] Address: [address] [place] [address] Performed By: #### 5 7021-8 ####[facility] HOSPITALWNCLIA [id number] [address] LABORATORYIA [id number] [place] [address] [place] Eosinophils (Bld) [#/Vol] 0.04 10*3/uL Normal <0.46 [facility] Comment on above: Order Comment: Speci men Type: BLOOD SPECIMENOrdering Facility: [facility] Address: [address] [place] [address] Performed By: #### 5 7021-8 ####[facility] HOSPITALWNCLIA [id number] [address] LABORATORYIA [id number] [place] [address] [place] Eosinophils/100 WBC (Bld) 2.0 % Normal [facility] Comment on above: Order Comment: Speci men Type: BLOOD SPECIMENOrdering Facility: [facility] Address: [address] [place] [address] Performed By: #### 5 7021-8 ####[facility] HOSPITALWMDLIA [id number] [address] LABORATORYCLIA [id number] [place] [address] [place] Erythrocyte distribution width (RBC) [Ratio] 18.9 % High 11.5-15.0 [facility] Comment on above: Order Comment: Speci men Type: BLOOD SPECIMENOrdering Facility: [facility] Address: [address] [place] [address] Performed By: #### 5 7021-8 ####[facility] [id number] [address] LABORATORYCLIA [id number] [place] [address] [place] Giant platelets LM Ql (Bld) Present Normal [facility] Comment on above: Order Comment: Speci men Type: BLOOD SPECIMENOrdering Facility: [facility] Address: [address] [place] [address] Performed By: #### 5 7021-8 ####[facility]A [id number] [address] LABORATORYCLIA [id number] [place] [address] [place] Hematocrit (Bld) [Volume fraction] 23.6 % Low 39.0-51.0 [facility] Comment on above: Order Comment: Speci men Type: BLOOD SPECIMENOrdering Facility: [facility] Address: [address] [place] [address] Performed By: #### 5 7021-8 ####[facility] MILLTOWNCLIA [id number] [address] LABORATORYCLIA [id number] [place] [address] [place] Hemoglobin (Bld) [Mass/Vol] 7.8 g/dL Low 13.0-17.0 [facility] Comment on above: Order Comment: Speci men Type: BLOOD SPECIMENOrdering Facility: [facility] Address: [address] [place] [address] Performed By: #### 5 7021-8 ####[facility] MILLWNCLIA [id number] [address] LABORATORYCLIA [id number] [place] [address] [place] Lymphocytes (Bld) [#/Vol] 0.48 10*3/uL Low 1.00-4.00 [facility] Comment on above: Order Comment: Speci men Type: BLOOD SPECIMENOrdering Facility: [facility] Address: [address] [place] [address] Performed By: #### 5 7021-8 ####[facility] MILLTOWNCLIA [id number] [address] LABORATORYCLIA [id number] [place] [address] [place] Lymphocytes/100 WBC (Bld) 27.0 % Normal [facility] Comment on above: Order Comment: Speci men Type: BLOOD SPECIMENOrdering Facility: [facility] Address: [address] [place] [address] Performed By: #### 5 7021-8 ####[facility] MILLTOWNCLIA [id number] [address] LABORATORYCLIA [id number] [address] MCH (RBC) [Entitic mass] 31.3 pg Normal 26.0-34.0 [facility] Comment on above: Order Comment: Speci men Type: BLOOD SPECIMENOrdering Facility: [facility] Address: [address] [place] [address] Performed By: #### 5 7021-8 ####[facility]A [id number] [address] LABORATORYCLIA [id number] [place] [address] [place] MCHC (RBC) [Mass/Vol] 33.1 g/dL Normal 30.5-36.0 [facility] Comment on above: Order Comment: Speci men Type: BLOOD SPECIMENOrdering Facility: [facility] Address: [address] [place] [address] Performed By: #### 5 7021-8 ####[facility] [id number] [address] LABORATORYCLIA [id number] [address] STATES [facility] MCV (RBC) [Entitic vol] 94.8 fL Normal 80.0-100.0 C [facility] Comment on above: Order Comment: Speci men Type: BLOOD SPECIMENOrdering Facility: [facility] Address: [address] [place] [address] Performed By: #### 5 7021-8 ####[facility]A [id number] [address] LABORATORYCLIA [id number] [address] OF [facility] Monocytes (Bld) [#/Vol] 0.07 10*3/uL Normal <0.87 [facility] Comment on above: Order Comment: Speci men Type: BLOOD SPECIMENOrdering Facility: [facility] Address: [address] [place] [address] Performed By: #### 5 7021-8 ####[facility] MILLTOWNCLIA [id number] [address] LABORATORYCLIA [id number] [place] [address] [place] Monocytes/100 WBC (Bld) 4.0 % Normal [facility] Comment on above: Order Comment: Speci men Type: BLOOD SPECIMENOrdering Facility: [facility] Address: [address] [place] [address] Performed By: #### 5 7021-8 ####[facility] MILLTOWNCLIA [id number] [address] LABORATORYCLIA [id number] [place] [address] [place] Neutrophils (Bld) [#/Vol] 1.19 10*3/uL Low 1.45-7.50 [facility] Comment on above: Order Comment: Speci men Type: BLOOD SPECIMENOrdering Facility: [facility] Address: [address] [place] [address] Performed By: #### 5 7021-8 ####[facility] MILLTOWNCLIA [id number] [address] LABORATORYCLIA [id number] [place] [address] [place] Neutrophils/100 WBC (Bld) 67.0 % Normal [facility] Comment on above: Order Comment: Speci men Type: BLOOD SPECIMENOrdering Facility: [facility] Address: [address] [place] [address] Performed By: #### 5 7021-8 ####[facility] MILLTOWNCLIA [id number] [address] LABORATORYCLIA [id number] [place] [address] [place] Nucleated RBC (Bld) [#/Vol] 10*3/uL Normal <0.01 [facility] Comment on above: Order Comment: Speci men Type: BLOOD SPECIMENOrdering Facility: [facility] Address: [address] [place] [address] Performed By: #### 5 7021-8 ####[facility] MILLTOWNCLIA [id number] [address] LABORATORYCLIA [id number] [place] [address] [place] Nucleated RBC/100 WBC (Bld) [Ratio] 0.0 /100 WBC Normal [facility] Comment on above: Order Comment: Speci men Type: BLOOD SPECIMENOrdering Facility: [facility] Address: [address] [place] [address] Performed By: #### 5 7021-8 ####[facility] HOSPITALWMDLIA [id number] [address] LABORATORYCLIA [id number] [place] [address] [place] Ovalocytes LM Ql (Bld) Few Normal Cl [facility] Comment on above: Order Comment: Speci men Type: BLOOD SPECIMENOrdering Facility: [facility] Address: [address] [place] [address] Performed By: #### 5 7021-8 ####[facility] HOSPITALWNCLIA [id number] [address] LABORATORYCLIA [id number] [place] [address] [place] Platelet mean volume (Bld) [Entitic vol] 11.1 fL Normal 9.0-12.7 [facility] Comment on above: Order Comment: Speci men Type: BLOOD SPECIMENOrdering Facility: [facility] Address: [address] [place] [address] Performed By: #### 5 7021-8 ####[facility] CENTERRUSLAN PENAROCKYLIA [id number] [address] LABORATORYCLIA [id number] [place] [address] [place] Platelets (Bld) [#/Vol] 99 10*3/uL Low 150-400 C [facility] Comment on above: Order Comment: Speci men Type: BLOOD SPECIMENOrdering Facility: [facility] Address: [address] [place] [address] Result Comment: No c lot detected. Performed By: #### 5 7021-8 ####[facility] BECKYROCKYLIA [id number] [address] LABORATORYCLIA [id number] [place] [address] [place] Platelets Estimate (Bld) [#/Vol] Decreased Normal [facility] Comment on above: Order Comment: Speci men Type: BLOOD SPECIMENOrdering Facility: [facility] Address: [address] [place] [address] Performed By: #### 5 7021-8 ####[facility] BECKYROCKYLIA [id number] [address] LABORATORYCLIA [id number] [place] [address] [place] RBC (Bld) [#/Vol] 2.49 10*6/uL Low 4.20-6.00 [facility] Comment on above: Order Comment: Speci men Type: BLOOD SPECIMENOrdering Facility: [facility] Address: [address] [place] [address] Performed By: #### 5 7021-8 ####[facility] [id number] [address] LABORATORYCLIA [id number] [place] [address] [place] RED CELL MORPH Reviewed: see result s of individual morphologies Normal [facility] Comment on above: Order Comment: Speci men Type: BLOOD SPECIMENOrdering Facility: [facility] Address: [address] [place] [address] Performed By: #### 5 7021-8 ####[facility] CENTERLIA [id number] [address] LABORATORYCLIA [id number] [place] [address] [place] WBC (Bld) [#/Vol] 1.78 10*3/uL Low 3.70-11.00 [facility] Comment on above: Order Comment: Speci men Type: BLOOD SPECIMENOrdering Facility: [facility] Address: [address] [place] [address] Result Comment: No c lot detected. Performed By: #### 5 7021-8 ####[facility] CENTERLIA [id number] [address] LABORATORYIA [id number] [place] [address] [place] CNPNon 09-23-2024 CNPN Normal [facility] Comprehensive metabolic 2000 panelon 09-23-2024 Albumin [Mass/Vol] 4.7 g/dL Normal 3.9-4.9 [facility] Comment on above: Order Comment: Speci men Type: BLOOD SPECIMENOrdering Facility: [facility] Address: [address] [place] [address] Performed By: #### 2 4323-8 ####[facility]OSPITALWNCLIA [id number] [place] [address] [place] ALP [Catalytic activity/Vol] 91 U/L Normal 38-113 [facility] Comment on above: Order Comment: Speci men Type: BLOOD SPECIMENOrdering Facility: [facility] Address: [address] [place] [address] Performed By: #### 2 4323-8 ####[facility]A [id number] [place] [address] [place] ALT [Catalytic activity/Vol] 83 U/L High 10-54 [facility] Comment on above: Order Comment: Speci men Type: BLOOD SPECIMENOrdering Facility: [facility] Address: [address] [place] [address] Performed By: #### 2 4323-8 ####[facility] [id number] [place] [address] [place] Anion gap [Moles/Vol] 10 mmol/L Normal 8-15 [facility] Comment on above: Order Comment: Speci men Type: BLOOD SPECIMENOrdering Facility: [facility] Address: [address] [place] [address] Performed By: #### 2 4323-8 ####[facility] [id number] [place] [address] [place] AST [Catalytic activity/Vol] 52 U/L High 14-40 [facility] Comment on above: Order Comment: Speci men Type: BLOOD SPECIMENOrdering Facility: [facility] Address: [address] [place] [id number] Performed By: #### 2 4323-8 ####[facility] [id number] [place] [address] [place] Bilirubin [Mass/Vol] 1.1 mg/dL Normal 0.2-1.3 [facility] Comment on above: Order Comment: Speci men Type: BLOOD SPECIMENOrdering Facility: [facility] Address: [address] [place] [address] Performed By: #### 2 4323-8 ####[facility] [place]OWNCL[place] [id number] [place] [address] [place] Calcium [Mass/Vol] 10.3 mg/dL High 8.5-10.2 [facility] Comment on above: Order Comment: Speci men Type: BLOOD SPECIMENOrdering Facility: [facility] Address: [address] [place] [address] Performed By: #### 2 4323-8 ####[facility] MILLTOWNCLIA [id number] [place] [address] [place] Chloride [Moles/Vol] 101 mmol/L Normal 98-107 [facility] Comment on above: Order Comment: Speci men Type: BLOOD SPECIMENOrdering Facility: [facility] Address: [address] [place] [address] Performed By: #### 2 4323-8 ####[facility]PITALWNCLIA [id number] [place] [address] [place] CO2 [Moles/Vol] 26 mmol/L Normal 22-30 [facility] Comment on above: Order Comment: Speci men Type: BLOOD SPECIMENOrdering Facility: [facility] Address: [address] [place] [address] Performed By: #### 2 4323-8 ####[facility] MILLTOWNCLIA [id number] [place] [address] [place] Creatinine [Mass/Vol] 0.77 mg/dL Normal 0.73-1.22 [facility] Comment on above: Order Comment: Speci men Type: BLOOD SPECIMENOrdering Facility: [facility] Address: [address] [place] [address] Performed By: #### 2 4323-8 ####[facility] MILLTOWNCLIA [id number] [place] [address] [place] Creatinine and Glomerular filtration rate.predicted panel (S/P/Bld) 91 mL/min/1.73m??? Normal >=60 [facility] Comment on above: Order Comment: Gilma ojeda Type: BLOOD SPECIMENOrdering Facility: [facility] Address: [address] [place] [address] Result Comment: Lilly mated Glomerular Filtration Rate [...] actual GFR. Performed By: #### 2 4323-8 ####[facility] [id number] [place] [address] [place] Glucose [Mass/Vol] 133 mg/dL High 74-99 [facility] Comment on above: Order Comment: Gilma ojeda Type: BLOOD SPECIMENOrdering Facility: [facility] Address: [address] [place] [address] Result Comment: The [place] Diabetes [employer] (ADA) provides guidance for cutoff [...] Standards of Medical Care in Diabetes 2016, [place] [employer]. Diabetes Care. 2016.39(Suppl 1). Performed By: #### 2 4323-8 ####[facility] [id number] [place] [address] [place] Potassium [Moles/Vol] 4.2 mmol/L Normal 3.7-5.1 [facility] Comment on above: Order Comment: Speci men Type: BLOOD SPECIMENOrdering Facility: [facility] Address: [address] [place] [address] Performed By: #### 2 4323-8 ####[facility] HOSPITALWNCLI [id number] [place] [address] [place] Protein [Mass/Vol] 7.0 g/dL Normal 6.3-8.0 [facility] Comment on above: Order Comment: Speci men Type: BLOOD SPECIMENOrdering Facility: [facility] Address: [address] [place] [address] Performed By: #### 2 4323-8 ####[facility] [id number] [place] [address] [place] Sodium [Moles/Vol] 137 mmol/L Normal 136-144 [facility] Comment on above: Order Comment: Speci men Type: BLOOD SPECIMENOrdering Facility: [facility] Address: [address] [place] [address] Performed By: #### 2 4323-8 ####[facility]OSPITALNCLIA [id number] [place] [address] [place] Urea nitrogen [Mass/Vol] 12 mg/dL Normal 9-24 [facility] Comment on above: Order Comment: Speci men Type: BLOOD SPECIMENOrdering Facility: [facility] Address: [address] [place] [address] Performed By: #### 2 4323-8 ####[facility]PITALNCLIA [id number] [place] [address] [place] T3Free SerPl-mCncon 09-23-20 24 Free T3 [Mass/Vol] 2.9 pg/mL Normal 2.3-4.1 [facility] Comment on above: Order Comment: Speci men Type: BLOOD SPECIMENOrdering Facility: [facility] Address: [address] [place] [address] Performed By: #### 3 024-7, 305-0, 3016-3 ####[facility] LABCLIA [id number] [place] [address] [place] T4 Free SerPl-mCncon 024 Free T4 [Mass/Vol] 1.1 ng/dL Normal 0.9-1.7 [facility] Comment on above: Order Comment: Speci men Type: BLOOD SPECIMENOrdering Facility: [facility] Address: [address] [place] [address] Performed By: #### 3 024-7, 0, 3 ####[facility] LABIA [id number] [place] [address] [place] TSH SerPl-aCncon 09-23-2024 TSH Qn 4.230 m[IU]/L High 0.270-4.200 [facility] Comment on above: Order Comment: Speci men Type: BLOOD SPECIMENOrdering Facility: [facility] Address: [address] [place] [address] Performed By: #### 3 024-7, 0, 3015-3 ####[facility] [id number] [address] [place] Type AND Screenon 09-23-2024 Ab SCREEN GEL Negative Normal [facility] Comment on above: Order Comment: PRETR ANSFUSION HGB =7.8 HCT = PERFORMED AT CCFWN11/15NYANEMIA Performed By: #### B MIRIAN BTS #### [facility] [address] [place], [address] ABO and Rh group Nom (Bld) Blood group B Rh(D) positive Normal [facility] Comment on above: Order Comment: PRETR ANSFUSION HGB =7.8 HCT = PERFORMED AT CCFWN11/15NYANEMIA Performed By: #### B RC, BTS #### [facility] [address] [place], [place], [id number] CBC W Auto Differential pane l (Bld)on 09-16-2024 Anisocytosis Ql (Bld) Present Normal [facility] Comment on above: Order Comment: Speci men Type: BLOOD SPECIMENOrdering Facility: [facility] Address: [address] [place] [address] Performed By: #### 5 7021-8 ####[facility] MILLWNCLIA [id number] [address] LABORATORYCLIA [id number] [place] [address] [place] [facility] Basophils (Bld) [#/Vol] 0.00 10*3/uL Normal <0.11 [facility] Comment on above: Order Comment: Speci men Type: BLOOD SPECIMENOrdering Facility: [facility] Address: [address] [place] [address] Performed By: #### 5 7021-8 ####[facility] CENTERA [id number] [address] LABORATORYCLIA [id number] [address] [place] Basophils/100 WBC (Bld) 0.0 % Normal [facility] Comment on above: Order Comment: Speci men Type: BLOOD SPECIMENOrdering Facility: [facility] Address: [address] [id number] Performed By: #### 5 7021-8 ####[facility] HOSPITALWNCLIA [id number] [address] LABORATORYCLIA [id number] [place] [address] [place] Dacrocytes LM Ql (Bld) Few Normal [facility] Comment on above: Order Comment: Speci men Type: BLOOD SPECIMENOrdering Facility: [facility] Address: [address] [place] [address] Performed By: #### 5 7021-8 ####[facility] SHERRITOWNCLIA [id number] [address] LABORATORYCLIA [id number] [place] [address] [place] Differential cell count method Nom (Bld) Manual Normal [facility] Comment on above: Order Comment: Speci men Type: BLOOD SPECIMENOrdering Facility: [facility] Address: [address] [place] [address] Performed By: #### 5 7021-8 ####[facility]ITALNCLIA [id number] [address] LABORATORYCLIA [id number] [place] [address] [place] Eosinophils (Bld) [#/Vol] 0.00 10*3/uL Normal <0.46 [facility] Comment on above: Order Comment: Speci men Type: BLOOD SPECIMENOrdering Facility: [facility] Address: [address] [place] [address] Performed By: #### 5 7021-8 ####[facility]PITALNCLIA [id number] [address] LABORATORYCLIA [id number] [place] [address] [place] Eosinophils/100 WBC (Bld) 0.0 % Normal [facility] Comment on above: Order Comment: Speci men Type: BLOOD SPECIMENOrdering Facility: [facility] Address: [address] [place] [address] Performed By: #### 5 7021-8 ####[facility] MILLWNCLIA [id number] [address] LABORATORYCLIA [id number] [place] [address] [place] Erythrocyte distribution width (RBC) [Ratio] 18.4 % High 11.5-15.0 [facility] Comment on above: Order Comment: Speci men Type: BLOOD SPECIMENOrdering Facility: [facility] Address: [address] [place] [address] Performed By: #### 5 7021-8 ####[facility] HOSPITALWMDLIA [id number] [address] LABORATORYIA [id number] [place] [address] [place] Giant platelets LM Ql (Bld) Present Normal [facility] Comment on above: Order Comment: Speci men Type: BLOOD SPECIMENOrdering Facility: [facility] Address: [address] [place] [address] Performed By: #### 5 7021-8 ####[facility] HOSPITALWMDLIA [id number] [address] LABORATORYIA [id number] [place] [address] [place] Hematocrit (Bld) [Volume fraction] 25.6 % Low 39.0-51.0 [facility] Comment on above: Order Comment: Speci men Type: BLOOD SPECIMENOrdering Facility: [facility] Address: [address] [place] [address] Performed By: #### 5 7021-8 ####[facility] CENTERLIA [id number] [address] LABORATORYIA [id number] [place] [address] [place] Hemoglobin (Bld) [Mass/Vol] 8.5 g/dL Low 13.0-17.0 [facility] Comment on above: Order Comment: Speci men Type: BLOOD SPECIMENOrdering Facility: [facility] Address: [address] [place] [address] Performed By: #### 5 7021-8 ####[facility] JAMESWNCLIA [id number] [address] LABORATORYCLIA [id number] [place] [address] [place] Lymphocytes (Bld) [#/Vol] 0.62 10*3/uL Low 1.00-4.00 [facility] Comment on above: Order Comment: Speci men Type: BLOOD SPECIMENOrdering Facility: [facility] Address: [address] [place] [address] Performed By: #### 5 7021-8 ####[facility] CENTERLIA [id number] [address] LABORATORYCLIA [id number] [address] [place] Lymphocytes/100 WBC (Bld) 38.0 % Normal [facility] Comment on above: Order Comment: Speci men Type: BLOOD SPECIMENOrdering Facility: [facility] Address: [address] [place] [address] Performed By: #### 5 7021-8 ####[facility] CENTERLIA [id number] [address] LABORATORYCLIA [id number] [place] [address] [place] MCH (RBC) [Entitic mass] 31.0 pg Normal 26.0-34.0 [facility] Comment on above: Order Comment: Speci men Type: BLOOD SPECIMENOrdering Facility: [facility] Address: [address] [place] [address] Performed By: #### 5 7021-8 ####[facility] HOSPITALWNCLIA [id number] [address] LABORATORYCLIA [id number] [address] STATES OF [facility] MCHC (RBC) [Mass/Vol] 33.2 g/dL Normal 30.5-36.0 [facility] Comment on above: Order Comment: Speci men Type: BLOOD SPECIMENOrdering Facility: [facility] Address: [address] [place] [address] Performed By: #### 5 7021-8 ####[facility] HOSPITALWNCLIA [id number] [address] LABORATORYCLIA [id number] [address] MCV (RBC) [Entitic vol] 93.4 fL Normal 80.0-100.0 [facility] Comment on above: Order Comment: Speci men Type: BLOOD SPECIMENOrdering Facility: [facility] Address: [address] [place] [address] Performed By: #### 5 7021-8 ####[facility]OSPITALWNCLIA [id number] [address] LABORATORYCLIA [id number] [place] [address] [place] Monocytes (Bld) [#/Vol] 0.07 10*3/uL Normal <0.87 [facility] Comment on above: Order Comment: Speci men Type: BLOOD SPECIMENOrdering Facility: [facility] Address: [address] [place], [place] [address] Performed By: #### 5 7021-8 ####[facility] MILLTOWNCLIA [id number] [address] LABORATORYCLIA [id number] [place] [address] [place] Monocytes/100 WBC (Bld) 4.0 % Normal [facility] Comment on above: Order Comment: Speci men Type: BLOOD SPECIMENOrdering Facility: [facility] Address: [address] [place] [address] Performed By: #### 5 7021-8 ####[facility] MILLTOWNCLIA [id number] [address] LABORATORYCLIA [id number] [place] [address] [place] Neutrophils (Bld) [#/Vol] 0.95 10*3/uL Low 1.45-7.50 [facility] Comment on above: Order Comment: Speci men Type: BLOOD SPECIMENOrdering Facility: [facility] Address: [address] [place] [address] Performed By: #### 5 7021-8 ####[facility] HOSPITALWNCLIA [id number] [address] LABORATORYCLIA [id number] [place] [address] [place] Neutrophils/100 WBC (Bld) 58.0 % Normal [facility] Comment on above: Order Comment: Speci men Type: BLOOD SPECIMENOrdering Facility: [facility] Address: [address] [place] [address] Performed By: #### 5 7021-8 ####[facility] HOSPITALWNCLIA [id number] [address] LABORATORYCLIA [id number] [place] [address] [place] Nucleated RBC (Bld) [#/Vol] 10*3/uL Normal <0.01 [facility] Comment on above: Order Comment: Speci men Type: BLOOD SPECIMENOrdering Facility: [facility] Address: [address] [place] [address] Performed By: #### 5 7021-8 ####[facility] MILLTOWNCLIA [id number] [address] LABORATORYCLIA [id number] [place] [address] [place] Nucleated RBC/100 WBC (Bld) [Ratio] 0.0 /100 WBC Normal [facility] Comment on above: Order Comment: Speci men Type: BLOOD SPECIMENOrdering Facility: [facility] Address: [address] [place] [address] Performed By: #### 5 7021-8 ####[facility] HOSPITALWROCKYLIA [id number] [address] LABORATORYIA [id number] [place] [address] [place] Ovalocytes LM Ql (Bld) Few Normal Cl [facility] Comment on above: Order Comment: Speci men Type: BLOOD SPECIMENOrdering Facility: [facility] Address: [address] [place] [address] Performed By: #### 5 7021-8 ####[facility] HOSPITALWNCLIA [id number] [address] LABORATORYCLIA [id number] [place] [address] [place] Platelet mean volume (Bld) [Entitic vol] 10.5 fL Normal 9.0-12.7 [facility] Comment on above: Order Comment: Speci men Type: BLOOD SPECIMENOrdering Facility: [facility] Address: [address] [facility] [facility] [address] [id number] Performed By: #### 5 7021-8 ####[facility] MILLWNCLIA [id number] [address] LABORATORYCLIA [id number] [place] [address] [place] Platelets (Bld) [#/Vol] 85 10*3/uL Low 150-400 C [facility] Comment on above: Order Comment: Speci men Type: BLOOD SPECIMENOrdering Facility: [facility] Address: [address] [place] [address] Result Comment: No c lot detected. Performed By: #### 5 7021-8 ####[facility] CENTERLIA [id number] [address] LABORATORYCLIA [id number] [place] [address] [place] Platelets Estimate (Bld) [#/Vol] Decreased Normal [facility] Comment on above: Order Comment: Speci men Type: BLOOD SPECIMENOrdering Facility: [facility] Address: [address] [place] [address] Performed By: #### 5 7021-8 ####[facility] CENTERLIA [id number] [address] LABORATORYCLIA [id number] [place] [address] [place] RBC (Bld) [#/Vol] 2.74 10*6/uL Low 4.20-6.00 [facility] Comment on above: Order Comment: Speci men Type: BLOOD SPECIMENOrdering Facility: [facility] Address: [address] [place] [address] Performed By: #### 5 7021-8 ####[facility]ENTERA [id number] [address] LABORATORYCLIA [id number] [address] STATES OF [facility] RBC FRAGMENTS Few Abnormal None Seen [facility] Comment on above: Order Comment: Speci men Type: BLOOD SPECIMENOrdering Facility: [facility] Address: [address] [place] [address] Performed By: #### 5 7021-8 ####[facility] BECKYNCLIA [id number] [address] LABORATORYCLIA [id number] [place] [address] [place] [facility] RED CELL MORPH Reviewed: see result s of individual morphologies Normal [facility] Comment on above: Order Comment: Speci men Type: BLOOD SPECIMENOrdering Facility: [facility] Address: [address] [place] [address] Performed By: #### 5 7021-8 ####[facility]OSPITALNCLIA [id number] [address] LABORATORYCLIA [id number] [place] [address] [place] WBC (Bld) [#/Vol] 1.63 10*3/uL Low 3.70-11.00 [facility] Comment on above: Order Comment: Speci men Type: BLOOD SPECIMENOrdering Facility: [facility] Address: [address] [place] [address] Performed By: #### 5 7021-8 ####[facility]OSPITALNCLIA [id number] [address] LABORATORYCLIA [id number] [place] [address] [place] Comprehensive metabolic 2000 panelon 09-16-2024 Albumin [Mass/Vol] 4.5 g/dL Normal 3.9-4.9 [facility] Comment on above: Order Comment: Speci men Type: BLOOD SPECIMENOrdering Facility: [facility] Address: [address] [place] [address] Performed By: #### 2 4323-8 ####[facility] MILLWNCLIA [id number] [place] [address] [place] ALP [Catalytic activity/Vol] 83 U/L Normal 38-113 [facility] Comment on above: Order Comment: Speci men Type: BLOOD SPECIMENOrdering Facility: [facility] Address: [address] [place] [address] Performed By: #### 2 4323-8 ####[facility] HOSPITALNCLIA [id number] [place] [address] [place] ALT [Catalytic activity/Vol] 97 U/L High 10-54 [facility] Comment on above: Order Comment: Speci men Type: BLOOD SPECIMENOrdering Facility: [facility] Address: [address] [place] [address] Performed By: #### 2 4323-8 ####[facility] HOSPITALNCLIA [id number] [place] [address] [place] Anion gap [Moles/Vol] 10 mmol/L Normal 8-15 [facility] Comment on above: Order Comment: Speci men Type: BLOOD SPECIMENOrdering Facility: [facility] Address: [address] [place] [address] Performed By: #### 2 4323-8 ####[facility] HOSPITALNCLIA [id number] [place] [address] [place] AST [Catalytic activity/Vol] 58 U/L High 14-40 [facility] Comment on above: Order Comment: Speci men Type: BLOOD SPECIMENOrdering Facility: [facility] Address: [address] [place] [address] Performed By: #### 2 4323-8 ####[facility] HOSPITALNCLIA [id number] [place] [address] [place] Bilirubin [Mass/Vol] 1.3 mg/dL Normal 0.2-1.3 [facility] Comment on above: Order Comment: Speci men Type: BLOOD SPECIMENOrdering Facility: [facility] Address: [address] [place], [place] [address] Performed By: #### 2 4323-8 ####[facility] JAMESWNCLIA [id number] [place] [address] [place] Calcium [Mass/Vol] 9.8 mg/dL Normal 8.5-10.2 [facility] Comment on above: Order Comment: Speci men Type: BLOOD SPECIMENOrdering Facility: [facility] Address: [address] [place] [address] Performed By: #### 2 4323-8 ####[facility] HOSPITALWROCKYLIA [id number] [place] [address] [place] Chloride [Moles/Vol] 102 mmol/L Normal 98-107 [facility] Comment on above: Order Comment: Speci men Type: BLOOD SPECIMENOrdering Facility: [facility] Address: [address] [place] [address] Performed By: #### 2 4323-8 ####[facility] HOSPITALWROCKYLIA [id number] [place] [address] [place] CO2 [Moles/Vol] 24 mmol/L Normal 22-30 [facility] Comment on above: Order Comment: Speci men Type: BLOOD SPECIMENOrdering Facility: [facility] Address: [address] [place] [address] Performed By: #### 2 4323-8 ####[facility]ERSAMWNCLIA [id number] [place] [address] [place] Creatinine [Mass/Vol] 0.77 mg/dL Normal 0.73-1.22 [facility] Comment on above: Order Comment: Speci men Type: BLOOD SPECIMENOrdering Facility: [facility] Address: [address] [place] [address] Performed By: #### 2 4323-8 ####[facility] HOSPITALNCLIA [id number] [place] [address] [place] Creatinine and Glomerular filtration rate.predicted panel (S/P/Bld) 91 mL/min/1.73m??? Normal >=60 [facility] Comment on above: Order Comment: Gilma ojeda Type: BLOOD SPECIMENOrdering Facility: [facility] Address: [address] [place] [address] Result Comment: Lilly mated Glomerular Filtration Rate [...] actual GFR. Performed By: #### 2 4323-8 ####[facility] [id number] [place] [address] [place] Glucose [Mass/Vol] 156 mg/dL High 74-99 [facility] Comment on above: Order Comment: Gilma ojeda Type: BLOOD SPECIMENOrdering Facility: [facility] Address: [address] [place] [address] Result Comment: The [place] [employer] (ADA) provides guidance for cutoff [...] Standards of Medical Care in Diabetes 2016, [place] [employer]. Diabetes Care. 2016.39(Suppl 1). Performed By: #### 2 4323-8 ####[facility] HOSPITALNCLI [id number] [place] [address] [place] Potassium [Moles/Vol] 4.0 mmol/L Normal 3.7-5.1 [facility] Comment on above: Order Comment: Speci men Type: BLOOD SPECIMENOrdering Facility: [facility] Address: [address] [place] [address] Performed By: #### 2 4323-8 ####[facility] MILLWILLYA [id number] [place] [address] [place] Protein [Mass/Vol] 6.7 g/dL Normal 6.3-8.0 [facility] Comment on above: Order Comment: Speci men Type: BLOOD SPECIMENOrdering Facility: [facility] Address: [address] [place] [address] Performed By: #### 2 4323-8 ####[facility] [id number] [place] [address] [place] Sodium [Moles/Vol] 136 mmol/L Normal 136-144 [facility] Comment on above: Order Comment: Speci men Type: BLOOD SPECIMENOrdering Facility: [facility] Address: [address] [place] [address] Performed By: #### 2 4323-8 ####[facility]ITAL[facility]CLIA [id number] [place] [address] [place] Urea nitrogen [Mass/Vol] 12 mg/dL Normal 9-24 [facility] Comment on above: Order Comment: Speci men Type: BLOOD SPECIMENOrdering Facility: [facility] Address: [address] [place] [address] Performed By: #### 2 4323-8 ####[facility]CL[facility] [id number] [place] [address] [place] Absolute lymphocyte countOrd ered By: Jose Grimaldo on 06-19-2023 Lymphocytes Auto (Unsp spec) [#/Vol] 0.70 10*3/uL 0.83-4.51 [facility] Basophil percentageOrdered B y: Jose Grimaldo on 06-19-2023 Basophils/100 WBC (Bld) 0.3 % 0-1 [facility] Chloride [Moles/Vol] 106 mmol/L 98-107 [facility] Eosinophils/100 WBC (Bld) 0.9 % 0-5 [facility] Glucose [Mass/Vol] 110 mg/dL 74-106 [facility] Comment on above: Fasting Glucose resu lt from 100 to 125 mg/dL suggests IMPAIRED HOMEOSTASIS per A.D.A. criteria. Neutrophils (Bld) [#/Vol] 2.4 10*3/uL 2.0-7.7 [facility] Neutrophils/100 WBC (Bld) 69.0 % 47-70 [facility] Potassium [Moles/Vol] 4.5 mmol/L 3.5-5.[address] [facility] Sodium [Moles/Vol] 138 mmol/L 136-145 [facility] WBC (Bld) [#/Vol] 3.5 10*3/uL 4.4-11.0 [facility] Blood lynnette cells detection b y light microscopyOrdered By: Jose Grimaldo on 06-19-2023 Lynnette cells LM Ql (Bld) 1+ [facility] Blood erythrocytes count (nu mber/volume)Ordered By: Jose Grimaldo on 06-19-2023 RBC (Bld) [#/Vol] 2.11 10*6/uL 4.6-6.2 [facility] Blood hemoglobin measurement (mass/volume)Ordered By: Jose Grmialdo on 06-19-2023 Hemoglobin (Bld) [Mass/Vol] 7.9 g/dL 13.0-16.5 [facility] Blood lymphocytes/100 leukoc ytesOrdered By: Jose Grimaldo on 06-19-2023 Lymphocytes/100 WBC (Bld) 20.1 % 19-41 [facility] Blood manual differential co mment interpretation (narrative result)Ordered By: Jose Grimaldo on 06-19-2023 Manual differential comment Javi (Bld) [Interp] SCANNED [facility] Blood monocytes/100 leukocyt esOrdered By: Jose Grimaldo on 06-19-2023 Monocytes/100 WBC (Bld) 5.7 % 0-10 [facility] Blood platelet mean volumeOr dered By: Jose Grimaldo on 06-19-2023 Platelet mean volume (Bld) [Entitic vol] 11.4 fL 6.2-12.0 [facility] Blood schistocytes detection by light microscopyOrdered By: Jose Grimaldo on 06-19-2023 Schistocytes LM Ql (Bld) RARE [facility] Determination of erythrocyte mean corpuscular volume (MCV)Ordered By: Jose Grimaldo on 06-19-2023 MCV (RBC) [Entitic vol] 113.7 fL 80-94 [facility] Hematocrit Auto (Bld) [Volum e fraction]Ordered By: Josepraveen Grimaldo on 06-19-2023 Hematocrit (Bld) [Volume fraction] 24.0 % 40-54 [facility] Hypochromatic red blood cell detectionOrdered By: Josepraveen Grimaldo on 06-19-2023 Hypochromia Ql (Bld) 1+ [facility] - Chemistry and C hemistry - challengeOrdered By: Josepraveen Grimaldo on 06-19-2023 CO2 [Moles/Vol] 27.0 mmol/L 21.0-32.0 [facility] Urea nitrogen/Creatinine [Mass ratio] 14.7 mg/mg 10-20 [facility] Laboratory - Hematology and Cell countsOrdered By: Josepraveen Grimaldo on 06-19-2023 Anisocytosis Ql (Bld) 3+ [facility] Erythrocyte distribution width (RBC) [Entitic vol] 102.3 fL 35.1-43.9 [facility] Erythrocyte distribution width (RBC) [Ratio] 25.2 % 11.6-14.6 [facility] Immature granulocytes/100 WBC (Bld) 4.000 % 0.0-0.9 [facility] Comment on above: IG% - Immature Granu locytes (promyelocytes, myelocytes and metamyelocytes) > 1% indicates that a LEFT SHIFT is Present. MCH (RBC) [Entitic mass] 37.4 pg 27.0-32.0 [facility] Nucleated RBC/100 WBC (Bld) [Ratio] 0.9 % 0-5 [facility] MCHC Auto (RBC) [Mass/Vol]Or dered By: Jose Grimaldo on 06-19-2023 MCHC (RBC) [Mass/Vol] 32.9 g/dL 32-[address] [facility] No Panel InformationOrdered By: Jose Grimaldo on 06-19-2023 Estimated Creatinine Clearance Calc 70.67 ml/min [facility] Estimated GFR (MDRD) Amer 117 mL/min >60 [facility] Comment on above: GFR Calc Estimated GFR (MDRD) Non-Af Amer 97 mL/min >60 [facility] Comment on above: Non- GFR Calc Platelets bldOrdered By: Jose Grimaldo on 06-19-2023 Platelets (Bld) [#/Vol] 189 10*3/uL 150-450 [facility] Serum or plasma calcium alexander urement (mass/volume)Ordered By: Jose Grimaldo on 06-19-2023 Calcium [Mass/Vol] 9.2 mg/dL 8.5-10.1 [facility] Serum or plasma creatinine m easurement (mass/volume)Ordered By: Jose Grimaldo on 06-19-2023 Creatinine [Mass/Vol] 0.82 mg/dL 0.70-1.[address] [facility] Comment on above: The validity of the calculated GFR & GFRAA in patients over 70 years has not been determined. Clinical correlation is essential. Serum or plasma urea nitroge n measurement (mass/volume)Ordered By: Jose Grimaldo on 06-19-2023 Urea nitrogen [Mass/Vol] 12 mg/dL 7-18 [facility] Thin prep Papanicolaou smear with manual screeningOrdered By: Jose Grimaldo on 06-19-2023 Thin prep Papanicolaou smear with manual screening 5 5-15 [facility] No Panel Informationon 05-01 [facility] Absolute lymphocyte countOrd ered By: ED PROVIDER on 03-07-2023 Lymphocytes Auto (Unsp spec) [#/Vol] 0.67 10*3/uL 0.83-4.51 [facility] Basophil percentageOrdered B y: ED PROVIDER on 03-07-2023 Basophil percentage 0 SEEN /hpf 0-5 [facility] Basophils/100 WBC (Bld) 0.5 % 0-1 [facility] Bilirubin [Mass/Vol] 1.40 mg/dL 0.20-1.00 [facility] Comment on above: For patients on eltr ombopag therapy, use of Dimension [place] TBIL is not recommended. Chloride [Moles/Vol] 106 mmol/L 98-107 [facility] Eosinophils/100 WBC (Bld) 1.1 % 0-5 [facility] Glucose [Mass/Vol] 120 mg/dL 74-106 [facility] Comment on above: Fasting Glucose resu lt from 100 to 125 mg/dL suggests IMPAIRED HOMEOSTASIS per A.D.A. criteria. Neutrophils (Bld) [#/Vol] 2.7 10*3/uL 2.0-7.7 [facility] Neutrophils/100 WBC (Bld) 71.1 % 47-70 [facility] Potassium [Moles/Vol] 4.2 mmol/L 3.5-5.[address] [facility] Protein [Mass/Vol] 6.6 g/dL 6.4-8.2 [facility] Sodium [Moles/Vol] 137 mmol/L 136-145 [facility] WBC (Bld) [#/Vol] 3.8 10*3/uL 4.4-11.0 [facility] Bilirubin Test strip Ql (U)O rdered By: ED PROVIDER on 03-07-2023 Bilirubin Ql (U) Negative Negative [facility] Blood erythrocytes count (nu mber/volume)Ordered By: ED PROVIDER on 03-07-2023 RBC (Bld) [#/Vol] 2.36 10*6/uL 4.6-6.2 [facility] Blood hemoglobin measurement (mass/volume)Ordered By: ED PROVIDER on 03-07-2023 Hemoglobin (Bld) [Mass/Vol] 8.2 g/dL 13.0-16.5 [facility] Blood lymphocytes/100 leukoc ytesOrdered By: ED PROVIDER on 03-07-2023 Lymphocytes/100 WBC (Bld) 17.9 % 19-41 [facility] Blood monocytes/100 leukocyt esOrdered By: ED PROVIDER on 03-07-2023 Monocytes/100 WBC (Bld) 5.9 % 0-[address] [facility] Blood platelet adequacy dete ction by light microscopyOrdered By: ED PROVIDER on 03-07-2023 Platelets LM Ql (Bld) ADEQUATE ADEQ [facility] Blood platelet mean volumeOr dered By: ED PROVIDER on 03-07-2023 Platelet mean volume (Bld) [Entitic vol] 11.7 fL 6.2-12.0 [facility] Determination of erythrocyte mean corpuscular volume (MCV)Ordered By: ED PROVIDER on 03-07-2023 MCV (RBC) [Entitic vol] 106.4 fL 80-94 [facility] Hematocrit Auto (Bld) [Volum e fraction]Ordered By: ED PROVIDER on 03-07-2023 Hematocrit (Bld) [Volume fraction] 25.1 % 40-54 [facility] Hypochromatic red blood cell detectionOrdered By: ED PROVIDER on 03-07-2023 Hypochromia Ql (Bld) 1+ [facility] Ketones Test strip Ql (U)Ord ered By: ED PROVIDER on 03-07-2023 Ketones Ql (U) Negative Negative [facility] Laboratory - Chemistry and C hemistry - challengeOrdered By: ED PROVIDER on 03-07-2023 ALP [Catalytic activity/Vol] 88 U/L 45-117 [facility] ALT [Catalytic activity/Vol] 45 U/L 16-61 [facility] CO2 [Moles/Vol] 28.0 mmol/L 21.0-32.0 [facility] Globulin (S) [Mass/Vol] 2.8 g/dL 2.2-4.2 [facility] Urea nitrogen/Creatinine [Mass ratio] 14.9 mg/mg 10-20 [facility] Laboratory - Chemistry and C hemistry - challengeOrdered By: Dr. Garcia on 03-07-2023 Lipase [Catalytic activity/Vol] 39 U/L 13-75 [facility] Comment on above: Please note:LIPASE r evised reference range effective 23. New Lipase methodology. Expected to produce lower values than the previous assay method. NEW Reference Range: 13 - 75 U/L Laboratory - Hematology and Cell countsOrdered By: ED PROVIDER on 03-07-2023 Anisocytosis Ql (Bld) 1+ [facility] Erythrocyte distribution width (RBC) [Entitic vol] 92.0 fL 35.1-43.9 [facility] Erythrocyte distribution width (RBC) [Ratio] 25.2 % 11.6-14.6 [facility] Immature granulocytes/100 WBC (Bld) 3.500 % 0.0-0.9 [facility] Comment on above: IG% - Immature Granu locytes (promyelocytes, myelocytes and metamyelocytes) > 1% indicates that a LEFT SHIFT is Present. MCH (RBC) [Entitic mass] 34.7 pg 27.0-32.0 [facility] Nucleated RBC/100 WBC (Bld) [Ratio] 0.8 % 0-5 [facility] MCHC Auto (RBC) [Mass/Vol]Or dered By: ED PROVIDER on 03-07-2023 MCHC (RBC) [Mass/Vol] 32.7 g/dL 32-[address] [facility] Macrocytes detectionOrdered By: ED PROVIDER on 03-07-2023 Macrocytes Ql (Bld) 1+ [facility] Mucus LM Ql (Urine sed)Order ed By: ED PROVIDER on 03-07-2023 Mucus Ql (Urine sed) 0 SEEN /hpf [facility] Nitrite Test strip Ql (U)Ord ered By: ED PROVIDER on 03-07-2023 Nitrite Ql (U) Negative Negative [facility] No Panel InformationOrdered By: ED PROVIDER on 03-07-2023 Estimated Creatinine Clearance Calc 78.58 ml/min [facility] Estimated GFR (MDRD) Amer 119 mL/min >60 [facility] Comment on above: GFR Calc Estimated GFR (MDRD) Non-Af Amer 99 mL/min >60 [facility] Comment on above: Non- GFR Calc Platelets bldOrdered By: ED PROVIDER on 03-07-2023 Platelets (Bld) [#/Vol] 171 10*3/uL 150-450 [facility] Protein Test strip Ql (U)Ord ered By: ED PROVIDER on 03-07-2023 Protein Ql (U) Negative Negative [facility] RBC morphologyOrdered By: ED PROVIDER on 03-07-2023 RBC morphology finding Nom (Bld) N CHROM NORMAL NORM C&C [facility] Serum or plasma albumin alexander urement (mass/volume)Ordered By: ED PROVIDER on 03-07-2023 Albumin [Mass/Vol] 3.8 g/dL 3.2-5.0 [facility] Serum or plasma albumin/glob ulin mass ratioOrdered By: ED PROVIDER on 03-07-2023 Albumin/Globulin [Mass ratio] 1.4 {ratio} 0.9-2.4 [facility] Serum or plasma calcium alexander urement (mass/volume)Ordered By: ED PROVIDER on 03-07-2023 Calcium [Mass/Vol] 9.1 mg/dL 8.5-10.1 [facility] Serum or plasma creatinine m easurement (mass/volume)Ordered By: ED PROVIDER on 03-07-2023 Creatinine [Mass/Vol] 0.80 mg/dL 0.70-1.[address] [facility] Comment on above: The validity of the calculated GFR & GFRAA in patients over 70 years has not been determined. Clinical correlation is essential. Serum or plasma urea nitroge n measurement (mass/volume)Ordered By: ED PROVIDER on 03-07-2023 Urea nitrogen [Mass/Vol] 12 mg/dL 7-18 [facility] Squamous epithelial cells de tection in urine sediment by light microscopyOrdered By: ED PROVIDER on 03-07-2023 Epithelial cells.squamous LM Ql (Urine sed) 0 SEEN /hpf 0-5 [facility] Thin prep Papanicolaou smear with manual screeningOrdered By: ED PROVIDER on 03-07-2023 Thin prep Papanicolaou smear with manual screening 24 U/L 15-37 [facility] Thin prep Papanicolaou smear with manual screening 3 5-15 [facility] Urine blood detectionOrdered By: ED PROVIDER on 03-07-2023 RBC Ql (U) Negative Negative [facility] RBC Ql (U) 0 SEEN /hpf 0-5 [facility] Urine clarityOrdered By: ED PROVIDER on 03-07-2023 Clarity (U) Clear Clear [facility] Urine color determinationOrd ered By: ED PROVIDER on 03-07-2023 Color (U) Yellow Yellow [facility] Urine glucose detectionOrder ed By: ED PROVIDER on 03-07-2023 Glucose Ql (U) Normal mg/dl Normal [facility] Urine leukocyte esterase det ection by dipstickOrdered By: ED PROVIDER on 03-07-2023 Leukocyte esterase Test strip Ql (U) Negative Negative [facility] Urine pHOrdered By: ED PROVI DENISE on 03-07-2023 pH (U) 7.0 [pH] 5.0 - 8.0 [facility] Urine sediment bacteria coun t by microscopy (number/high power field)Ordered By: ED PROVIDER on 03-07-2023 Bacteria LM.HPF (Urine sed) [#/Area] 0 /[HPF] None Seen [facility] Urine specific gravity measu rementOrdered By: ED PROVIDER on 03-07-2023 Specific gravity (U) [Rel density] 1.010 1.002-1.030 [facility] Urobilinogen Auto test strip Ql (U)Ordered By: ED PROVIDER on 03-07-2023 Urobilinogen Ql (U) Normal mg/dl Normal [facility] Laboratory - Drug toxicology Ordered By: Dr. Traore on 03-06-2023 Amphetamines Ql (U) Negative <1000 ng/mL [facility] Benzodiazepines Ql (U) Negative < 200 ng/mL [facility] Cannabinoids Screen Ql (U) Negative < 50 ng/mL [facility] Cocaine Ql (U) Negative < 300 ng/mL [facility] Opiates Ql (U) Negative < 300 ng/mL [facility] No Panel InformationOrdered By: Dr. Traore on 03-06-2023 MDMA (Ecstasy) Screen Negative < 500 ng/mL [facility] Miscellaneous Test See comment [facility] Comment on above: TEST RESULT LIMITSTr amadol Positive Oqphlp=756 Tramadol Conf,MS,UR 5690 ng/mL Rzeper=100 TESTING PERFORMED AT [facility]. ORIGINAL REPORT ON FILE IN LAB CONTAINS ADDITIONAL TEST SITE INFORMATION. Urine Barbiturates Screen Negative < 200 ng/mL [facility] Urine Drug Screen Comment [facility] Comment on above: CONFIRMATORY TESTING FOR ALL [...] TESTING MUST BE ORDERED SEPARATELY. USE TESTMNEMONIC: [facility] Urine Methadone Screen Negative < 300 ng/mL [facility] Urine phencyclidine (PCP) de tectionOrdered By: Dr. Traore on 03-06-2023 Phencyclidine Ql (U) Negative < 25 ng/mL [facility] CBC W Auto Differential pane l (Bld)on 01-24-2023 Basophils (Bld) [#/Vol] <0.11 k/uL [facility] Bas[facility]/100 WBC (Bld) 0.3 % [facility] Differential cell count method Nom (Bld) Auto [facility] Eosinophils (Bld) [#/Vol] <0.46 k/uL [facility] Eosinophils/100 WBC (Bld) 0.5 % [facility] Erythrocyte distribution width (RBC) [Ratio] 19.7 % High 11.5 - 15.0 % [facility] Hematocrit (Bld) [Volume fraction] 24.3 % Low 39.0 - 51.0 % [facility] Hemoglobin (Bld) [Mass/Vol] 8.2 g/dL Low 13.0 - 17.0 g/dL [facility] Immature granulocytes (Bld) [#/Vol] <0.10 k/uL [facility] Immature granulocytes/100 WBC (Bld) 0.3 % [facility] Lymphocytes (Bld) [#/Vol] 0.62 10*3/uL Low 1.00 - 4.00 k/uL [facility] Lymphocytes/100 WBC (Bld) 17.0 % [facility] MCH (RBC) [Entitic mass] 35.3 pg High 26.0 - 34.0 pg [facility] MCHC (RBC) [Mass/Vol] 33.7 g/dL 30.5 - 36.0 g/dL [facility] MCV (RBC) [Entitic vol] 104.7 fL High 80.0 - 100.0 fL [facility] Monocytes (Bld) [#/Vol] 0.18 10*3/uL <0.87 k/uL [facility] Monocytes/100 WBC (Bld) 4.9 % [facility] Neutrophils (Bld) [#/Vol] 2.81 10*3/uL 1.45 - 7.50 k/uL [facility] Neutrophils/100 WBC (Bld) 77.0 % [facility] Nucleated RBC (Bld) [#/Vol] <0.01 k/uL [facility] Nucleated RBC/100 WBC (Bld) [Ratio] 0.0 /100 WBC [facility] Platelet mean volume (Bld) [Entitic vol] 10.4 fL 9.0 - 12.7 fL [facility] Platelets (Bld) [#/Vol] 152 10*3/uL 150 - 400 k/uL [facility] RBC (Bld) [#/Vol] 2.32 10*6/uL Low 4.20 - 6.0 0 m/uL [facility] WBC (Bld) [#/Vol] 3.65 10*3/uL Low 3.70 - 11.00 k/uL [facility] No Panel Informationon 12-10 [facility] Absolute lymphocyte countOrd ered By: Delisa Francis on 11-13-2022 Lymphocytes Auto (Unsp spec) [#/Vol] 0.55 10*3/uL 0.83-4.51 [facility] Basophil percentageOrdered B y: Delisa Francis on 11-13-2022 Basophils/100 WBC (Bld) 0.4 % 0-1 [facility] Bilirubin [Mass/Vol] 0.90 mg/dL 0.20-1.00 [facility] Comment on above: For patients on eltr ombopag therapy, use of Dimension [place] TBIL is not recommended. Chloride [Moles/Vol] 105 mmol/L 98-107 [facility] Eosinophils/100 WBC (Bld) 2.0 % 0-5 [facility] Glucose [Mass/Vol] 145 mg/dL 74-106 [facility] Comment on above: Fasting Glucose resu lt greater than or equal to 126 mg/dL suggests DIABETES MELLITUS per A.D.A. criteria. LDH [Catalytic activity/Vol] 136 U/L 87-241 [facility] Neutrophils (Bld) [#/Vol] 1.7 10*3/uL 2.0-7.7 [facility] Neutrophils/100 WBC (Bld) 69.4 % 47-70 [facility] Potassium [Moles/Vol] 3.8 mmol/L 3.5-5.[address] [facility] Protein [Mass/Vol] 6.8 g/dL 6.4-8.2 [facility] Sodium [Moles/Vol] 140 mmol/L 136-145 [facility] WBC (Bld) [#/Vol] 2.5 10*3/uL 4.4-11.0 [facility] Blood erythrocytes count (nu mber/volume)Ordered By: Delisa Francis on 11-13-2022 RBC (Bld) [#/Vol] 1.86 10*6/uL 4.6-6.2 [facility] Blood hemoglobin measurement (mass/volume)Ordered By: Delisa Francis on 11-13-2022 Hemoglobin (Bld) [Mass/Vol] 7.6 g/dL 13.0-16.5 [facility] Blood lymphocytes/100 leukoc ytesOrdered By: Delisa Francis on 11-13-2022 Lymphocytes/100 WBC (Bld) 22.2 % 19-41 [facility] Blood manual differential co mment interpretation (narrative result)Ordered By: Delisa Francis on 11-13-2022 Manual differential comment Javi (Bld) [Interp] COMMENT [facility] Comment on above: LYMPHOPENIA. Blood monocytes/100 leukocyt esOrdered By: Delisa Francis on 11-13-2022 Monocytes/100 WBC (Bld) 5.6 % 0-[address] [facility] Blood platelet mean volumeOr dered By: Delisa Francis on 11-13-2022 Platelet mean volume (Bld) [Entitic vol] 10.9 fL 6.2-12.0 [facility] Determination of erythrocyte mean corpuscular volume (MCV)Ordered By: Delisa Francis on 11-13-2022 MCV (RBC) [Entitic vol] 125.3 fL 80-94 [facility] Hematocrit Auto (Bld) [Volum e fraction]Ordered By: Delisa Francis on 11-13-2022 Hematocrit (Bld) [Volume fraction] 23.3 % 40-54 [facility] Interpretation of serum or p lasma protein pattern by immunofixation (narrative resultOrdered By: Delisa Francis on 11-13-2022 Protein Fractions Immunofixation Javi [Interp] See comment [facility] Comment on above: MONOCLONAL IGM KAPPA #1 = 0.2 G/DLMONOCLONAL IGM KAPPA #2 = 0.3 G/DL Laboratory - Chemistry and C hemistry - challengeOrdered By: Delisa Francis on 11-13-2022 ALP [Catalytic activity/Vol] 69 U/L 45-117 [facility] ALT [Catalytic activity/Vol] 32 U/L 16-61 [facility] CO2 [Moles/Vol] 29.0 mmol/L 21.0-32.0 [facility] Urea nitrogen/Creatinine [Mass ratio] 17.0 mg/mg 10-20 [facility] Laboratory - Hematology and Cell countsOrdered By: Delisa Francis on 11-13-2022 Anisocytosis Ql (Bld) 1+ [facility] Erythrocyte distribution width (RBC) [Entitic vol] 73.6 fL 35.1-43.9 [facility] Erythrocyte distribution width (RBC) [Ratio] 16.0 % 11.6-14.6 [facility] Immature granulocytes/100 WBC (Bld) 0.400 % 0.0-0.9 [facility] Comment on above: IG% - Immature Granu locytes (promyelocytes, myelocytes and metamyelocytes) > 1% indicates that a LEFT SHIFT is Present. MCH (RBC) [Entitic mass] 40.9 pg 27.0-32.0 [facility] Nucleated RBC/100 WBC (Bld) [Ratio] 0 % 0-5 [facility] MCHC Auto (RBC) [Mass/Vol]Or dered By: Delisa Francis on 11-13-2022 MCHC (RBC) [Mass/Vol] 32.6 g/dL 32-[address] [facility] No Panel InformationOrdered By: Delisa Francis on 11-13-2022 Addendum Document Comment . [facility] Comment on above: Protein electrophore sis scan will follow via computer,mail, or cmo & president delivery. Estimated Creatinine Clearance Calc 66.87 ml/min [facility] Estimated GFR (MDRD) Amer 100 mL/min >60 [facility] Comment on above: GFR Calc Estimated GFR (MDRD) Non-Af Amer 83 mL/min >60 [facility] Comment on above: Non- GFR Calc Free Lambda Light Chains, Quant 23.4 mg/L 5.7-26.3 [facility] Platelets bldOrdered By: Reese Francis on 11-13-2022 Platelets (Bld) [#/Vol] 107 10*3/uL 150-450 [facility] Review by pathologistOrdered By: Delisa Francis on 11-13-2022 Pathologist review Javi (Unsp spec) [Interp] Reviewed [facility] Comment on above: Previous reported re sult: Verena slater Edited by: RGOOD on 11/15/22:0942Pancytopenia.Macrocytic anemia.LeukopeniaMild Thrombocytopenia.Clinical correlation necessary.Rigoberto Badillo D.O. 11/15/22 AMENDED REPORT 11/15/22 0942 PATH REV previously reported as: Verena slater Serum sawqu-2-xbnrmahn measu rement by electrophoresisOrdered By: Delisa Francis on 11-13-2022 Alpha 1 globulin Elph [Mass/Vol] 0.2 g/dL 0.0-0.4 [facility] Alpha 1 globulin Elph [Mass/Vol] 0.5 g/dL 0.4-1.0 [facility] Serum globulin measurement ( mass/volume)Ordered By: Delisa Francis on 11-13-2022 Globulin (S) [Mass/Vol] 2.1 g/dL 2.2-3.9 [facility] Serum immunoglobulin kappa l ight chains/immunoglobulin lambda light chains mass ratioOrdered By: Delisa Francis on 11-13-2022 Immunoglobulin light chains.kappa/Immunoglob ulin light chains.lambda (S) [Mass ratio] 4.06 0.26-1.65 [facility] Comment on above: Performed at: - [employer] [id number] Director: Ramakrishna Lea PhD, Phone: [phone] Serum or plasma IgA measurem ent (mass/volume)Ordered By: Delisa Francis on 11-13-2022 IgA [Mass/Vol] 183 mg/dL 61-437 [facility] Serum or plasma IgG measurem ent (mass/volume)Ordered By: Delisa Francis on 11-13-2022 IgG [Mass/Vol] 539 mg/dL 603-1613 [facility] Serum or plasma IgM measurem ent (mass/volume)Ordered By: Delisa Francis on 11-13-2022 IgM [Mass/Vol] 620 mg/dL 15-143 [facility] Serum or plasma albumin alexander urement (mass/volume)Ordered By: Delisa Francis on 11-13-2022 Albumin [Mass/Vol] 4.1 g/dL 2.9-4.4 [facility] Serum or plasma albumin/glob ulin mass ratioOrdered By: Delisa Francis on 11-13-2022 Albumin/Globulin [Mass ratio] 1.5 {ratio} 0.9-2.4 [facility] Serum or plasma beta globuli n measurement by electrophoresis (mass/volume)Ordered By: Delisa Francis on 11-13-2022 Beta globulin Elph [Mass/Vol] 0.5 g/dL 0.7-1.3 [facility] [facility] or plasma calcium alexander urement (mass/volume)Ordered By: Delisa Francis on 11-13-2022 Calcium [Mass/Vol] 9.2 mg/dL 8.5-10.1 [facility] Serum or plasma creatinine m easurement (mass/volume)Ordered By: Delisa Francis on 11-13-2022 Creatinine [Mass/Vol] 0.94 mg/dL 0.70-1.[address] [facility] Comment on above: The validity of the calculated GFR & GFRAA in patients over 70 years has not been determined. Clinical correlation is essential. Serum or plasma gamma globul in measurement by electrophoresis (mass/volume)Ordered By: Delisa Francis on 11-13-2022 Gamma globulin Elph [Mass/Vol] 0.9 g/dL 0.4-1.8 [facility] Serum or plasma immunoelectr ophoresis interpretation (nominal result)Ordered By: Delisa Francis on 11-13-2022 Interpretation IEP [Interp] Comment . [facility] Comment on above: Immunofixation shows a monoclonal gammopathy of IgM kappawith monomer.LAMBDA APPEARS ASYMMETRICAL Serum or plasma immunoglobul in kappa light chains measurement (mass/volume)Ordered By: Delisa Francis on 11-13-2022 Immunoglobulin light chains.kappa [Mass/Vol] 95.1 mg/L 3.3-19.4 [facility] Serum or plasma urea nitroge n measurement (mass/volume)Ordered By: Delisa Francis on 11-13-2022 Urea nitrogen [Mass/Vol] 16 mg/dL 7-18 [facility] Thin prep Papanicolaou smear with manual screeningOrdered By: Delisa Francis on 11-13-2022 Thin prep Papanicolaou smear with manual screening 17 U/L 15-37 [facility] Thin prep Papanicolaou smear with manual screening 6 5-15 [facility] Thin prep Papanicolaou smear with manual screening 2.0 0.7-1.7 [facility] Total protein bloodOrdered B y: Delisa Francis on 11-13-2022 Protein [Mass/Vol] 6.2 g/dL 6.0-8.5 [facility] Hypochromatic red blood cell detectionOrdered By: Dr. Alfaro on 10-29-2022 Hypochromia Ql (Bld) 1+ [facility] Ovalocyte detectionOrdered B y: Dr. Alfaro on 10-29-2022 Ovalocytes LM Ql (Bld) 1+ [facility] Serum or plasma ferritin petey surement (mass/volume)Ordered By: Dr. Alfaro on 10-29-2022 Ferritin [Mass/Vol] 3592 ng/mL 26-388 [facility] Teardrop cell detectionOrder ed By: Dr. Alfaro on 10-29-2022 Dacrocytes LM Ql (Bld) RARE [facility] Macrocytes detectionOrdered By: Dr. Alfaro on 10-21-2022 Macrocytes Ql (Bld) 2+ [facility] No Panel InformationOrdered By: Dr. Alfaro on 10-10-2022 Lead < 1.0 ug/dL 0.0-3.4 [facility] Comment on above: Testing performed by Inductively coupled plasma/MassSpectrometry.Analysis by inductively coupled plasma/massspectrometry (ICP/MS) Environmental Exposure: WHO Recommendation <20.0 Occupational Exposure: OSHA Lead Std 40.0 IFEOMA 30.0 Detection Limit = 1.0 Serum or plasma uric acid me asurement (mass/volume)Ordered By: Dr. Alfaro on 10-10-2022 Urate [Mass/Vol] 5.0 mg/dL 3.5-7.2 [facility] Comment on above: The drugs N-Acetylcy steine and Metamizole may falsely depress this assay. Thin prep Papanicolaou smear with manual screeningOrdered By: Dr. Alfaro on 10-10-2022 Thin prep Papanicolaou smear with manual screening 79 ug/dL 69-132 [facility] Comment on above: Detection Limit = 5P erformed at: [employer] [address] [id number] Director: Ramakrishna Lea PhD, Phone: [phone] at: [employer] [address] [id number] Director: Arik Mendez MD, Phone: [phone] Iron measurement (mass/mass) Ordered By: Dr. Alfaro on 09-05-2022 Iron (Unsp spec) [Mass/Mass] 156 ug/dL 65-175 [facility] Laboratory - Chemistry and C hemistry - challengeOrdered By: Dr. Alfaro on 09-05-2022 Cobalamin (Vitamin B12) [Mass/Vol] 510 pg/mL 211-911 [facility] No Panel InformationOrdered By: Dr. Alfaro on 09-05-2022 Total Iron Binding Capacity 185 ug/dL 250-450 [facility] Serum or plasma erythropoiet in (EPO) measurement (units/volume)Ordered By: Dr. Alfaro on 09-05-2022 Erythropoietin (EPO) Qn 202.8 mIU/mL 2.6-18.5 [facility] Comment on above: Herman Spiced Bits el DxI 800 Immunoassay SystemValues obtained with different assay methods or kits cannotbe used interchangeably. Results cannot be interpreted asabsolute evidence of the presence or absence of malignantdisease.Performed at: [facility] [id number] Director: Ramakrishna Lea PhD, Phone: [phone] Serum or plasma folate measu rement (mass/volume)Ordered By: Dr. Alfaro on 09-05-2022 Folate [Mass/Vol] 39.70 ng/mL 3.1-55.4 [facility] Serum or plasma iron saturat ion measurement (mass fraction)Ordered By: Dr. Alfaro on 09-05-2022 Iron saturation [Mass fraction] 84.3 % 15.0-55.0 [facility] Blood platelet adequacy dete ction by light microscopyOrdered By: Delisa Francis on 07-11-2022 Platelets LM Ql (Bld) SLT DEC ADEQ [facility] Hemoglobin in reticulocytes (mass per reticulocyte)Ordered By: Dr. Alfaro on 05-23-2022 Hemoglobin (Reticulocytes) [Entitic mass] 34.0 pg 30-35 [facility] No Panel InformationOrdered By: Dr. Alfaro on 05-23-2022 Immature Reticulocyte Fraction 11.10 % 3.00-15.90 [facility] Reticulocyte Count 1.89 % 0.5-1.5 [facility] Absolute lymphocyte counton 05-14-2022 Lymphocytes Auto (Unsp spec) [#/Vol] 0.26 10*3/uL 0.83-4.51 [facility] Work Phone: [phone] Basophil percentageon 2021 Basophils/100 WBC (Bld) 0.0 % 0-1 [facility] Work Phone: [phone] Chloride [Moles/Vol] 102 mmol/L 98-107 [facility] Work Phone: Eosinophils/100 WBC (Bld) 3.1 % 0-5 [facility] Work Phone: [phone] Glucose [Mass/Vol] 118 mg/dL 74-106 [facility] Work Phone: Comment on above: Fasting Glucose resu lt from 100 to 125 mg/dL suggests IMPAIRED HOMEOSTASIS per A.D.A. criteria. Neutrophils (Bld) [#/Vol] 0.1 10*3/uL 2.0-7.7 [facility] Work Phone: [phone] Neutrophils/100 WBC (Bld) 15.6 % 47-70 [facility] Work Phone: [phone] Potassium [Moles/Vol] 3.9 mmol/L 3.5-5.[address] [facility] Work Phone: [phone] Sodium [Moles/Vol] 133 mmol/L 136-145 [facility] Work Phone: [phone] WBC (Bld) [#/Vol] 0.3 10*3/uL 4.4-11.0 [facility] Work Phone: Comment on above: CRITICAL VALUE VERIF IED. CALLED TO COLBY LAYNE05/14/22 0707 Benitez Armstrong.RESULTS READ BACK BY SAME . Blood erythrocytes count (nu mber/volume)on 05-14-2022 RBC (Bld) [#/Vol] 2.57 10*6/uL 4.6-6.2 [facility] Work Phone: Blood hemoglobin measurement (mass/volume)on 05-14-2022 Hemoglobin (Bld) [Mass/Vol] 8.2 g/dL 13.0-16.5 [facility] Work Phone: Blood lymphocytes/100 leukoc yteson 05-14-2022 Lymphocytes/100 WBC (Bld) 81.3 % 19-41 [facility] Work Phone: [phone] Blood manual differential co mment interpretation (narrative result)on 05-14-2022 Manual differential comment Javi (Bld) [Interp] SCANNED [facility] Work Phone: Blood monocytes/100 leukocyt eson 05-14-2022 Monocytes/100 WBC (Bld) 0.0 % 0-10 [facility] Work Phone: Blood platelet mean volumeon 05-14-2022 Platelet mean volume (Bld) [Entitic vol] 11.1 fL 6.2-12.0 [facility] Work Phone: [phone] Determination of erythrocyte mean corpuscular volume (MCV)on 05-14-2022 MCV (RBC) [Entitic vol] 93.8 fL 80-94 [facility] Work Phone: [phone] Hematocrit Auto (Bld) [Volum e fraction]on 05-14-2022 Hematocrit (Bld) [Volume fraction] 24.1 % 40-54 [facility] Work Phone: [phone] Laboratory - Chemistry and C hemistry - challengeon 05-14-2022 CO2 [Moles/Vol] 25.0 mmol/L 21.0-32.0 [facility] Work Phone: [phone] Urea nitrogen/Creatinine [Mass ratio] 18.1 mg/mg 10-20 [facility] Work Phone: [phone] Laboratory - Hematology and Cell countson 05-14-2022 Erythrocyte distribution width (RBC) [Entitic vol] 57.8 fL 35.1-43.9 [facility] Work Phone: [phone] Erythrocyte distribution width (RBC) [Ratio] 17.3 % 11.6-14.6 [facility] Work Phone: [phone] Immature granulocytes/100 WBC (Bld) 0.000 % 0.0-0.9 [facility] Work Phone: [phone] Comment on above: IG% - Immature Granu locytes (promyelocytes, myelocytes and metamyelocytes) > 1% indicates that a LEFT SHIFT is Present. MCH (RBC) [Entitic mass] 31.9 pg 27.0-32.0 [facility] Work Phone: [phone] Nucleated RBC/100 WBC (Bld) [Ratio] 6.3 % 0-5 [facility] Work Phone: [phone] MCHC Auto (RBC) [Mass/Vol]on 05-14-2022 MCHC (RBC) [Mass/Vol] 34.0 g/dL 32-36 [facility] Work Phone: No Panel Informationon 05-14 Estimated Creatinine Clearance Calc 63.88 ml/min [facility] Work Phone: Estimated GFR (MDRD) Amer 184 mL/min >60 [facility] Work Phone: Comment on above: GFR Calc Estimated GFR (MDRD) Non-Af Amer 152 mL/min >60 [facility] Work Phone: Comment on above: Non- GFR Calc Platelets bldon 05-14-2022 Platelets (Bld) [#/Vol] 32 10*3/uL 150-450 [facility] Work Phone: Comment on above: CRITICAL VALUE VERIF IED. CALLED TO COLBY LAYNE05/14/22 07 Benitez Armstrong.RESULTS READ BACK BY SAME . Review by pathologiston Pathologist review Javi (Unsp spec) [Interp] Reviewed [facility] Work Phone: Comment on above: Previous reported re sult: Verena slater Edited by: RGOOD on 05/14/22:1415Pancytopenia.Normocytic anemia.Leukopenia and Neutropenia.Marked ThrombocytopeniaClinical correlation necessary.Brian Turner M.D. 05/14/22 AMENDED REPORT 05/14/22 1415 PATH REV previously reported as: Verena slater Serum or plasma calcium alexander urement (mass/volume)on 05-14-2022 Calcium [Mass/Vol] 8.5 mg/dL 8.5-10.1 [facility] Work Phone: Serum or plasma creatinine m easurement (mass/volume)on 05-14-2022 Creatinine [Mass/Vol] 0.55 mg/dL 0.70-1.[address] [facility] Work Phone: Comment on above: The validity of the calculated GFR & GFRAA in patients over 70 years has not been determined. Clinical correlation is essential. Serum or plasma urea nitroge n measurement (mass/volume)on 05-14-2022 Urea nitrogen [Mass/Vol] 10 mg/dL 7-18 [facility] Work Phone: Thin prep Papanicolaou smear with manual screeningon 05-14-2022 Thin prep Papanicolaou smear with manual screening 6 5-15 [facility] Work Phone: Blood platelet adequacy dete ction by light microscopyon 05-13-2022 Platelets LM Ql (Bld) MKD DEC ADEQ [facility] Work Phone: Hypochromatic red blood cell detectionon 05-13-2022 Hypochromia Ql (Bld) 1+ [facility] Work Phone: [phone] Laboratory - Hematology and Cell countson 05-13-2022 Anisocytosis Ql (Bld) 1+ [facility] Work Phone: Basophil percentageon 2021 Bilirubin [Mass/Vol] 1.20 mg/dL 0.20-1.00 [facility] Work Phone: Comment on above: For patients on eltr ombopag therapy, use of Dimension [place] TBIL is not recommended. Protein [Mass/Vol] 5.3 g/dL 6.4-8.2 [facility] Work Phone: Laboratory - Chemistry and C hemistry - challengeon 05-10-2022 ALP [Catalytic activity/Vol] 66 U/L 45-117 [facility] Work Phone: ALT [Catalytic activity/Vol] 31 U/L 16-61 [facility] Work Phone: Globulin (S) [Mass/Vol] 2.5 g/dL 2.2-4.2 [facility] Work Phone: RBC morphologyon 05-10-2022 RBC morphology finding Nom (Bld) NORM C+C NORMAL NORM C&C [facility] Work Phone: Serum or plasma albumin alexander urement (mass/volume)on 05-10-2022 Albumin [Mass/Vol] 2.8 g/dL 3.2-5.0 [facility] Work Phone: Serum or plasma albumin/glob ulin mass ratioon 05-10-2022 Albumin/Globulin [Mass ratio] 1.1 {ratio} 0.9-2.4 [facility] Work Phone: [phone] Thin prep Papanicolaou smear with manual screeningon 05-10-2022 Thin prep Papanicolaou smear with manual screening 17 U/L 15-37 [facility] Work Phone: Absolute lymphocyte counton 05-09-2022 Lymphocytes Auto (Unsp spec) [#/Vol] 0.24 10*3/uL 0.83-4.51 [facility] Work Phone: Basophil percentageon 2021 Basophil percentage 3.4 mg/dL 2.5-4.9 [facility] Work Phone: [phone] Basophils/100 WBC (Bld) 0.0 % 0-1 [facility] Work Phone: [phone] Bilirubin [Mass/Vol] 0.70 mg/dL 0.20-1.00 [facility] Work Phone: [phone] Comment on above: For patients on eltr ombopag therapy, use of Dimension [place] TBIL is not recommended. Chloride [Moles/Vol] 103 mmol/L 98-107 [facility] Work Phone: Eosinophils/100 WBC (Bld) 3.6 % 0-5 [facility] Work Phone: [phone] Glucose [Mass/Vol] 124 mg/dL 74-106 [facility] Work Phone: Comment on above: Fasting Glucose resu lt from 100 to 125 mg/dL suggests IMPAIRED HOMEOSTASIS per A.D.A. criteria. Lactate [Moles/Vol] 0.7 mmol/L 0.4-2.0 [facility] Work Phone: Neutrophils (Bld) [#/Vol] 0.0 10*3/uL 2.0-7.7 [facility] Work Phone: Neutrophils/100 WBC (Bld) 10.7 % 47-70 [facility] Work Phone: Potassium [Moles/Vol] 4.1 mmol/L 3.5-5.1 [facility] Work Phone: [phone] Protein [Mass/Vol] 6.3 g/dL 6.4-8.2 [facility] Work Phone: Sodium [Moles/Vol] 136 mmol/L 136-145 [facility] Work Phone: WBC (Bld) [#/Vol] 0.3 10*3/uL 4.4-11.0 [facility] Work Phone: Comment on above: CRITICAL VALUE VERIF IED. CALLED TO [id number] Domenica Hinds.RESULTS READ BACK BY SAME . Basophil percentage 0 SEEN /hpf 0-5 [facility] Work Phone: Bilirubin Test strip Ql (U)o n 05-09-2022 Bilirubin Ql (U) Negative Negative [facility] Work Phone: Blood erythrocytes count (nu mber/volume)on 05-09-2022 RBC (Bld) [#/Vol] 2.19 10*6/uL 4.6-6.2 [facility] Work Phone: Blood hemoglobin measurement (mass/volume)on 05-09-2022 Hemoglobin (Bld) [Mass/Vol] 7.1 g/dL 13.0-16.5 [facility] Work Phone: Blood lymphocytes/100 leukoc yteson 05-09-2022 Lymphocytes/100 WBC (Bld) 85.7 % 19-41 [facility] Work Phone: Blood manual differential co mment interpretation (narrative result)on 05-09-2022 Manual differential comment Javi (Bld) [Interp] SCANNED [facility] Work Phone: Comment on above: LEUKOCYTOPENIA NOTED THROMBOCYTOPENIA NOTED Blood monocytes/100 leukocyt eson 05-09-2022 Monocytes/100 WBC (Bld) 0.0 % 0-10 [facility] Work Phone: Blood platelet mean volumeon 05-09-2022 Platelet mean volume (Bld) [Entitic vol] TNP [facility] Work Phone: Comment on above: Test not performed Determination of erythrocyte mean corpuscular volume (MCV)on 05-09-2022 MCV (RBC) [Entitic vol] 96.3 fL 80-94 [facility] Work Phone: [phone] Hematocrit Auto (Bld) [Volum e fraction]on 05-09-2022 Hematocrit (Bld) [Volume fraction] 21.1 % 40-54 [facility] Work Phone: [phone] Ketones Test strip Ql (U)on 05-09-2022 Ketones Ql (U) Negative Negative [facility] Work Phone: [phone] Laboratory - Chemistry and C hemistry - challengeon 05-09-2022 ALP [Catalytic activity/Vol] 94 U/L 45-117 [facility] Work Phone: [phone] ALT [Catalytic activity/Vol] 41 U/L 16-61 [facility] Work Phone: [phone] CO2 [Moles/Vol] 30.0 mmol/L 21.0-32.0 [facility] Work Phone: [phone] Globulin (S) [Mass/Vol] 2.8 g/dL 2.2-4.2 [facility] Work Phone: [phone] Magnesium [Mass/Vol] 2.0 mg/dL 1.6-2.6 [facility] Work Phone: [phone] Urea nitrogen/Creatinine [Mass ratio] 16.1 mg/mg 10-20 [facility] Work Phone: [phone] Laboratory - Hematology and Cell countson 05-09-2022 Erythrocyte distribution width (RBC) [Entitic vol] 62.3 fL 35.1-43.9 [facility] Work Phone: [phone] Erythrocyte distribution width (RBC) [Ratio] 18.0 % 11.6-14.6 [facility] Work Phone: [phone] Immature granulocytes/100 WBC (Bld) 0.000 % 0.0-0.9 [facility] Work Phone: Comment on above: IG% - Immature Granu locytes (promyelocytes, myelocytes and metamyelocytes) > 1% indicates that a LEFT SHIFT is Present. MCH (RBC) [Entitic mass] 32.4 pg 27.0-32.0 [facility] Work Phone: Nucleated RBC/100 WBC (Bld) [Ratio] 0 % 0-5 [facility] Work Phone: MCHC Auto (RBC) [Mass/Vol]on 05-09-2022 MCHC (RBC) [Mass/Vol] 33.6 g/dL 32-[address] [facility] Work Phone: Mucus LM Ql (Urine sed)on Mucus Ql (Urine sed) 0 SEEN /hpf [facility] Work Phone: Nitrite Test strip Ql (U)on 05-09-2022 Nitrite Ql (U) Negative Negative [facility] Work Phone: No Panel Informationon 05-09 Estimated Creatinine Clearance Calc 63.88 ml/min [facility] Work Phone: Estimated GFR (MDRD) Amer 131 mL/min >60 [facility] Work Phone: Comment on above: GFR Calc Estimated GFR (MDRD) Non-Af Amer 108 mL/min >60 [facility] Work Phone: Comment on above: Non- GFR Calc Platelets bldon 05-09-2022 Platelets (Bld) [#/Vol] 4 10*3/uL 150-450 [facility] Work Phone: Comment on above: CRITICAL VALUE VERIF IED. CALLED TO [id number] Domenica Hinds.RESULTS READ BACK BY SAME . Protein Test strip Ql (U)on 05-09-2022 Protein Ql (U) Negative Negative [facility] Work Phone: Review by pathologiston 04-12 Pathologist review Javi (Unsp spec) [Interp] May foll [facility] Work Phone: Serum or plasma albumin alexander urement (mass/volume)on 05-09-2022 Albumin [Mass/Vol] 3.5 g/dL 3.2-5.0 [facility] Work Phone: Serum or plasma albumin/glob ulin mass ratioon 05-09-2022 Albumin/Globulin [Mass ratio] 1.2 {ratio} 0.9-2.4 [facility] Work Phone: Serum or plasma calcium alexander urement (mass/volume)on 05-09-2022 Calcium [Mass/Vol] 8.9 mg/dL 8.5-10.1 [facility] Work Phone: Serum or plasma creatinine m easurement (mass/volume)on 05-09-2022 Creatinine [Mass/Vol] 0.74 mg/dL 0.70-1.[address] [facility] Work Phone: Comment on above: The validity of the calculated GFR & GFRAA in patients over 70 years has not been determined. Clinical correlation is essential. Serum or plasma urea nitroge n measurement (mass/volume)on 05-09-2022 Urea nitrogen [Mass/Vol] 12 mg/dL 7-18 [facility] Work Phone: Serum procalcitonin measurem enton 05-09-2022 Procalcitonin [Mass/Vol] 0.04 ng/mL 0.00-0.09 [facility] Work Phone: Comment on above: A procalcitonin [...] Ql (Urine sed) 0 SEEN /hpf 0-5 [facility] Work Phone: [phone] Thin prep Papanicolaou smear with manual screeningon 05-09-2022 Thin prep Papanicolaou smear with manual screening 19 U/L 15-37 [facility] Work Phone: Thin prep Papanicolaou smear with manual screening 3 5-15 [facility] Work Phone: [phone] Urine blood detectionon -3 RBC Ql (U) Negative Negative [facility] Work Phone: [phone] RBC Ql (U) 0 SEEN /hpf 0-5 [facility] Work Phone: [phone] Urine clarityon 05-09-2022 Clarity (U) Clear Clear [facility] Work Phone: Urine color determinationon 05-09-2022 Color (U) Yellow Yellow [facility] Work Phone: Urine glucose detectionon Glucose Ql (U) Normal mg/dl Normal [facility] Work Phone: Urine leukocyte esterase det ection by dipstickon 05-09-2022 Leukocyte esterase Test strip Ql (U) Negative Negative [facility] Work Phone: [phone] Urine pHon 05-09-2022 pH (U) 7.0 [pH] 5.0 - 8.0 [facility] Work Phone: [phone] Urine sediment bacteria coun t by microscopy (number/high power field)on 05-09-2022 Bacteria LM.HPF (Urine sed) [#/Area] RARE /hpf None Seen [facility] Work Phone: Urine specific gravity measu rementon 05-09-2022 Specific gravity (U) [Rel density] 1.010 1.002-1.030 [facility] Work Phone: Urobilinogen Auto test strip Ql (U)on 05-09-2022 Urobilinogen Ql (U) Normal mg/dl Normal [facility] Work Phone: Absolute lymphocyte counton 04-30-2022 Lymphocytes Auto (Unsp spec) [#/Vol] 0.55 10*3/uL 0.83-4.51 [facility] Work Phone: Basophil percentageon 2021 Basophils/100 WBC (Bld) 0.6 % 0-1 [facility] Work Phone: Bilirubin [Mass/Vol] 1.20 mg/dL 0.20-1.00 [facility] Work Phone: Comment on above: For patients on eltr ombopag therapy, use of Dimension [place] TBIL is not recommended. Chloride [Moles/Vol] 103 mmol/L 98-107 [facility] Work Phone: Eosinophils/100 WBC (Bld) 3.1 % 0-5 [facility] Work Phone: Glucose [Mass/Vol] 93 mg/dL 74-106 [facility] Work Phone: Neutrophils (Bld) [#/Vol] 1.0 10*3/uL 2.0-7.7 [facility] Work Phone: Neutrophils/100 WBC (Bld) 60.5 % 47-70 [facility] Work Phone: Potassium [Moles/Vol] 4.3 mmol/L 3.5-5.[address] [facility] Work Phone: Protein [Mass/Vol] 6.5 g/dL 6.4-8.2 [facility] Work Phone: Sodium [Moles/Vol] 138 mmol/L 136-145 [facility] Work Phone: WBC (Bld) [#/Vol] 1.6 10*3/uL 4.4-11.0 [facility] Work Phone: Blood erythrocytes count (nu mber/volume)on 04-30-2022 RBC (Bld) [#/Vol] 2.26 10*6/uL 4.6-6.2 [facility] Work Phone: Blood hemoglobin measurement (mass/volume)on 04-30-2022 Hemoglobin (Bld) [Mass/Vol] 7.8 g/dL 13.0-16.5 [facility] Work Phone: Blood lymphocytes/100 leukoc yteson 04-30-2022 Lymphocytes/100 WBC (Bld) 34.0 % 19-41 [facility] Work Phone: Blood manual differential co mment interpretation (narrative result)on 04-30-2022 Manual differential comment Javi (Bld) [Interp] See comment [facility] Work Phone: Comment on above: NEUTROPENIA NOTEDLYM PHOPENIA NOTED Blood monocytes/100 leukocyt eson 04-30-2022 Monocytes/100 WBC (Bld) 1.2 % 0-10 [facility] Work Phone: Blood platelet adequacy dete ction by light microscopyon 04-30-2022 Platelets LM Ql (Bld) MOD DEC ADEQ [facility] Work Phone: Blood platelet mean volumeon 04-30-2022 Platelet mean volume (Bld) [Entitic vol] 12.2 fL 6.2-12.0 [facility] Work Phone: Determination of erythrocyte mean corpuscular volume (MCV)on 04-30-2022 MCV (RBC) [Entitic vol] 100.4 fL 80-94 [facility] Work Phone: Hematocrit Auto (Bld) [Volum e fraction]on 04-30-2022 Hematocrit (Bld) [Volume fraction] 22.7 % 40-54 [facility] Work Phone: Laboratory - Chemistry and C hemistry - challengeon 04-30-2022 ALP [Catalytic activity/Vol] 64 U/L 45-117 [facility] Work Phone: ALT [Catalytic activity/Vol] 45 U/L 16-61 [facility] Work Phone: CO2 [Moles/Vol] 32.0 mmol/L 21.0-32.0 [facility] Work Phone: [phone] Globulin (S) [Mass/Vol] 2.6 g/dL 2.2-4.2 [facility] Work Phone: [phone] Urea nitrogen/Creatinine [Mass ratio] 18.4 mg/mg 10-20 [facility] Work Phone: [phone] Laboratory - Hematology and Cell countson 04-30-2022 Anisocytosis Ql (Bld) 2+ [facility] Work Phone: [phone] Erythrocyte distribution width (RBC) [Entitic vol] 74.4 fL 35.1-43.9 [facility] Work Phone: [phone] Erythrocyte distribution width (RBC) [Ratio] 21.2 % 11.6-14.6 [facility] Work Phone: [phone] Immature granulocytes/100 WBC (Bld) 0.600 % 0.0-0.9 [facility] Work Phone: [phone] Comment on above: IG% - Immature Granu locytes (promyelocytes, myelocytes and metamyelocytes) > 1% indicates that a LEFT SHIFT is Present. MCH (RBC) [Entitic mass] 34.5 pg 27.0-32.0 [facility] Work Phone: [phone] Nucleated RBC/100 WBC (Bld) [Ratio] 0 % 0-5 [facility] Work Phone: [phone] MCHC Auto (RBC) [Mass/Vol]on 04-30-2022 MCHC (RBC) [Mass/Vol] 34.4 g/dL 32-[address] [facility] Work Phone: [phone] No Panel Informationon 04-30 Estimated Creatinine Clearance Calc 63.88 ml/min [facility] Work Phone: [phone] Estimated GFR (MDRD) Amer 139 mL/min >60 [facility] Work Phone: Comment on above: GFR Calc Estimated GFR (MDRD) Non-Af Amer 114 mL/min >60 [facility] Work Phone: Comment on above: Non- GFR Calc Platelets bldon 04-30-2022 Platelets (Bld) [#/Vol] 62 10*3/uL 150-450 [facility] Work Phone: RBC morphologyOrdered By: Dr Bradley Alfaro on 04-30-2022 RBC morphology finding Nom (Bld) N CHROM NORMAL NORM C&C [facility] Review by pathologiston 04-11 Pathologist review Javi (Unsp spec) [Interp] Reviewed [facility] Work Phone: Comment on above: Previous reported re sult: Verena slater Edited by: JEFF on 05/01/22:1248Pancytopenia.Leukopenia and Neutropenia.Severe Macrocytic anemia.Moderate ThrombocytopeniaClinical correlation necessary.Brian Turner M.D. 05/01/22 AMENDED REPORT 05/01/22 1248 PATH REV previously reported as: Verena slater Serum or plasma albumin alexander urement (mass/volume)on 04-30-2022 Albumin [Mass/Vol] 3.9 g/dL 3.2-5.0 [facility] Work Phone: Serum or plasma albumin/glob ulin mass ratioon 04-30-2022 Albumin/Globulin [Mass ratio] 1.5 {ratio} 0.9-2.4 [facility] Work Phone: Serum or plasma calcium alexander urement (mass/volume)on 04-30-2022 Calcium [Mass/Vol] 9.3 mg/dL 8.5-10.1 [facility] Work Phone: Serum or plasma creatinine m easurement (mass/volume)on 04-30-2022 Creatinine [Mass/Vol] 0.71 mg/dL 0.70-1.[address] [facility] Work Phone: Comment on above: The validity of the calculated GFR & GFRAA in patients over 70 years has not been determined. Clinical correlation is essential. Serum or plasma urea nitroge n measurement (mass/volume)on 04-30-2022 Urea nitrogen [Mass/Vol] 13 mg/dL 7-18 [facility] Work Phone: [phone] Thin prep Papanicolaou smear with manual screeningon 04-30-2022 Thin prep Papanicolaou smear with manual screening 20 U/L 15-37 [facility] Work Phone: Thin prep Papanicolaou smear with manual screening 3 5-15 [facility] Work Phone: Thin prep Papanicolaou smear with manual screening 119 U/L 87-241 [facility] Work Phone: [phone] Hypochromatic red blood cell detectionon 04-17-2022 Hypochromia Ql (Bld) 1+ [facility] Work Phone: [phone] Macrocytes detectionon 04-17 Macrocytes Ql (Bld) 1+ [facility] Work Phone: [phone] Ovalocyte detectionon 2021 Ovalocytes LM Ql (Bld) 1+ [facility] Work Phone: Laboratory - Chemistry and C hemistry - challengeon 03-21-2022 Free T4 [Mass/Vol] 0.85 ng/dL 0.76-1.46 [facility] No Panel Informationon 03-21 Free Triiodothyronine (T3) pg/dL 2.5 pg/mL 2.18-3.98 [facility] Miscellaneous Test See comment [facility] Comment on above: TEST RESULT LIMITSCL L [...] FISH RESULTS: CCND1/IGH: NORMAL . nuc jayro 11q13(GOPM7u6),14q32(IGHx2)[100] SOLITARIO: NORMAL nuc jayro 11q22.3(ATMx2)[100] . 12cen: NORMAL . nuc ajyro 12cen([id number])[100] . 13q: NORMAL . nuc jayro 13q14.3(DLEUx2),13q34(HRZC1r9)[100] . TP53: NORMAL . nuc jayro 17p13.1(TP53x2)[100] This analysis is limited to abnormalities detectableby the specific probes included in the study. FISH resultsshould be interpreted within the context of a fullcytogenetic analysis and hematologic evaluation. REFERENCES:. Mireya,(2013) Adv Exp Med Biol 792:193-214.PMID#[id number] . Maldonado et al.,(2011) Clin Lab Med 31:649-658.PMID#[id number] This test was developed and its performacecharacteristics determined by [employer] ([employer]). It has not been cleared orapproved by the U.S. Food and Drug Administration. The DNAprobe vendor for this study was [employer] ([employer]).Director Review: Comment: MURPHY YOUNG, PHD, [facility] TESTING PERFORMED AT [employer]. ORIGINAL REPORT ON FILE IN LAB CONTAINS ADDITIONAL TEST SITE INFORMATION. Serum Cryoglobulins Comment None detected [facility] Comment on above: None Detected at 72 hoursThis test was developed and its performance characteristicsdetermined by [employer]. It has not been cleared orapproved by the Food and Drug Administration.Performed at: [facility] [employer] [id number] Director: Ramakrishna Lea PhD, Phone: [phone] Thyroid Stimulating Hormone (TSH) 5.00 uIU/mL 0.358-3.74 [facility] Albumin Elph [Mass/Vol]on Albumin [Mass/Vol] 4.2 g/dL 2.9-4.4 [facility] Work Phone: Erythrocyte sedimentation ra terese 03-15-2022 ESR (Bld) [Velocity] 10 mm/h 0-20 [facility] Hemoglobin in reticulocytes (mass per reticulocyte)on 03-15-2022 Hemoglobin (Reticulocytes) [Entitic mass] 37.3 pg 30-35 [facility] Work Phone: Interpretation of serum or p lasma protein pattern by immunofixation (narrative resulton 03-15-2022 Protein Fractions Immunofixation Javi [Interp] See comment [facility] Work Phone: Comment on above: MONOCLONAL IGM KAPPA #1 = 0.3 G/DLMONOCLONAL IGM KAPPA #2 = 0.4 G/DL No Panel Informationon 03-15 Addendum Document Comment . [facility] Work Phone: Comment on above: Protein electrophore sis scan will follow via computer,mail, or cmo & president delivery. Free Lambda Light Chains, Quant 18.7 mg/L 5.7-26.3 [facility] Work Phone: Immature Reticulocyte Fraction 16.10 % 3.00-15.90 [facility] Work Phone: Reticulocyte Count 1.61 % 0.5-1.5 [facility] Work Phone: Serum eiitd-8-uthamdbx measu rement by electrophoresison 03-15-2022 Alpha 1 globulin Elph [Mass/Vol] 0.2 g/dL 0.0-0.4 [facility] Work Phone: Alpha 1 globulin Elph [Mass/Vol] 0.5 g/dL 0.4-1.0 [facility] Work Phone: Serum immunoglobulin kappa l ight chains/immunoglobulin lambda light chains mass ratioon 03-15-2022 Immunoglobulin light chains.kappa/Immunoglob ulin light chains.lambda (S) [Mass ratio] 4.29 0.26-1.65 [facility] Work Phone: Comment on above: Performed at: [address] [id number] Director: Ramakrishna Lea PhD, Phone: [phone] Serum or plasma IgA measurem ent (mass/volume)on 03-15-2022 IgA [Mass/Vol] 181 mg/dL 61-437 [facility] Work Phone: Serum or plasma IgG measurem ent (mass/volume)on 03-15-2022 IgG [Mass/Vol] 607 mg/dL 603-1613 [facility] Work Phone: Serum or plasma IgM measurem ent (mass/volume)on 03-15-2022 IgM [Mass/Vol] 684 mg/dL 15-143 [facility] Work Phone: Comment on above: Results confirmed on dilution. Serum or plasma beta globuli n measurement by electrophoresis (mass/volume)on 03-15-2022 Beta globulin Elph [Mass/Vol] 0.6 g/dL 0.7-1.3 [facility] Work Phone: Serum or plasma gamma globul in measurement by electrophoresis (mass/volume)on 03-15-2022 Gamma globulin Elph [Mass/Vol] 1.1 g/dL 0.4-1.8 [facility] Work Phone: Serum or plasma immunoelectr ophoresis interpretation (nominal result)on 03-15-2022 Interpretation IEP [Interp] Comment . 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.LAMBDA APPEARS ASYMMETRICAL Serum or plasma immunoglobul in kappa light chains measurement (mass/volume)on 03-15-2022 Immunoglobulin light chains.kappa [Mass/Vol] 80.3 mg/L 3.3-19.4 [facility] Work Phone: Thin prep Papanicolaou smear with manual screeningon 03-15-2022 Thin prep Papanicolaou smear with manual screening 1.8 0.7-1.7 [facility] Work Phone: Total protein bloodon 2021 Protein [Mass/Vol] 6.6 g/dL 6.0-8.5 [facility] Work Phone: Absolute lymphocyte counton 02-14-2022 Lymphocytes Auto (Unsp spec) [#/Vol] 0.75 10*3/uL 0.83-4.51 [facility] Work Phone: Basophil percentageon 2021 Basophils/100 WBC (Bld) 0.0 % 0-1 [facility] Work Phone: Eosinophils/100 WBC (Bld) 0.9 % 0-5 [facility] Work Phone: Neutrophils (Bld) [#/Vol] 2.4 10*3/uL 2.0-7.7 [facility] Work Phone: Neutrophils/100 WBC (Bld) 70.1 % 47-70 [facility] Work Phone: WBC (Bld) [#/Vol] 3.4 10*3/uL 4.4-11.0 [facility] Work Phone: Blood erythrocytes count (nu mber/volume)on 02-14-2022 RBC (Bld) [#/Vol] 2.26 10*6/uL 4.6-6.2 [facility] Work Phone: Blood hemoglobin measurement (mass/volume)on 02-14-2022 Hemoglobin (Bld) [Mass/Vol] 8.0 g/dL 13.0-16.5 [facility] Work Phone: Blood lymphocytes/100 leukoc yteson 02-14-2022 Lymphocytes/100 WBC (Bld) 22.4 % 19-41 [facility] Work Phone: Blood monocytes/100 leukocyt eson 02-14-2022 Monocytes/100 WBC (Bld) 6.0 % 0-10 [facility] Work Phone: Blood platelet mean volumeon 02-14-2022 Platelet mean volume (Bld) [Entitic vol] 10.4 fL 6.2-12.0 [facility] Work Phone: Determination of erythrocyte mean corpuscular volume (MCV)on 02-14-2022 MCV (RBC) [Entitic vol] 105.8 fL 80-94 [facility] Work Phone: [phone] Hematocrit Auto (Bld) [Volum e fraction]on 02-14-2022 Hematocrit (Bld) [Volume fraction] 23.9 % 40-54 [facility] Work Phone: [phone] Laboratory - Hematology and Cell countson 02-14-2022 Anisocytosis Ql (Bld) 1+ [facility] Work Phone: [phone] Erythrocyte distribution width (RBC) [Entitic vol] 87.1 fL 35.1-43.9 [facility] Work Phone: [phone] Erythrocyte distribution width (RBC) [Ratio] 22.6 % 11.6-14.6 [facility] Work Phone: [phone] Immature granulocytes/100 WBC (Bld) 0.600 % 0.0-0.9 [facility] Work Phone: [phone] Comment on above: IG% - Immature Granu locytes (promyelocytes, myelocytes and metamyelocytes) > 1% indicates that a LEFT SHIFT is Present. MCH (RBC) [Entitic mass] 35.4 pg 27.0-32.0 [facility] Work Phone: [phone] Nucleated RBC/100 WBC (Bld) [Ratio] 0 % 0-5 [facility] Work Phone: [phone] MCHC Auto (RBC) [Mass/Vol]on 02-14-2022 MCHC (RBC) [Mass/Vol] 33.5 g/dL 32-[address] [facility] Work Phone: [phone] Platelets bldon 02-14-2022 Platelets (Bld) [#/Vol] 155 10*3/uL 150-450 [facility] Work Phone: [phone] Laboratory - Drug toxicology on 01-09-2022 Amphetamines Ql (U) Negative <1000 ng/mL [facility] Benzodiazepines Ql (U) Negative < 200 ng/mL [facility] Cannabinoids Screen Ql (U) Negative < 50 ng/mL [facility] Cocaine Ql (U) Negative < 300 ng/mL [facility] Opiates Ql (U) Negative < 300 ng/mL [facility] Macrocytes detectionon 01-09 Macrocytes Ql (Bld) 1+ [facility] Work Phone: No Panel Informationon 01-09 Miscellaneous Test See comment [facility] Work Phone: Comment on above: TEST RESULT LIMITS T ramadol Positive Fwxkqd=001 Tramadol Conf, [place], [place] 3360 ng/mL Qabrbc=100 TESTING PERFORMED AT [facility]. ORIGINAL REPORT ON FILE IN LAB CONTAINS ADDITIONAL TEST SITE INFORMATION. Urine Barbiturates Screen Negative < 200 ng/mL [facility] Urine Drug Screen Comment [facility] Comment on above: CONFIRMATORY TESTING FOR ALL [...] Methadone Screen Negative < 300 ng/mL [facility] Urine Methamphetamine-MDMA Screen Negative < 500 ng/mL [facility] Ovalocyte detectionon 2021 Ovalocytes LM Ql (Bld) [facility] Work Phone: Review by pathologiston 0 Pathologist review Javi (Unsp spec) [Interp] Reviewed [facility] Work Phone: Comment on above: Previous reported re sult: Verena slater Edited by: JEFF on 01/11/22:914Leukopenia and Macrocytic anemia.Clinical correlation necessary.Brian Turner M.D. 01/11/22 AMENDED REPORT 01/11/2215 PATH REV previously reported as: March bryon Urine phencyclidine (PCP) de tectionon 01-09-2022 Phencyclidine Ql (U) Negative < 25 ng/mL [facility] No Panel Informationon 12-25 Prostate Specific Antigen Screen 0.72 ng/mL 0.00-4.00 [facility] Comment on above: This test was perfor med using the TPSA assay method for the[employer] chemistry system. Values obtained with differentassay methods cannot be used interchangably.When changing PSA assays in the course of monitoring apatient, additional sequential testing should be carriedout to confirm baseline values. XR Abdomen Supine and Uprigh ton 09-14-2021 IMPRESSION: NO ACUTE ABDOMINAL PATHOLOGY VISUALIZED Animator: NUNO Transcribe Date/Time: Sep 14 2021 4:09P Dictated by : JOSELYN LINARES MD This examination was interpreted and the report reviewed and electronically signed by: JOSELYN LINARES MD on Sep 14 2021 4:14PM [facility] * * *Final Report* [...] IMPRESSION IMPRESSION: NO ACUTE ABDOMINAL PATHOLOGY VISUALIZED Animator: PSCB Transcribe Date/Time: Sep 14 2021 4:09P Dictated by : JOSELYN LINARES MD This examination was interpreted and the report reviewed and electronically signed by: JOSELYN LINARES MD on Sep 14 2021 4:14PM EST [facility] Radiology Study observation (narrative) [facility] XR Abdomen Supine and Uprigh tOrdered By: Ccf Provider on 09-14-2021 [facility] BONE MARROW BIOPSY [facility] Culture, urine Bacteria identified Cx Nom (U) Culture exhibits no growth. [facility] Work Phone: Vital Signs Date Time Vital Sign Value Performing Clinician Facility 09-09-2025 12:40-0400 Body temperature 97.3 [degF] Gladys Da Silva [employer] Work Phone: [facility] 09-09-2025 12:40-0400 Diastolic blood pressure 50 mm[Hg] Gladys Suppan [employer] Work Phone: [facility] 09-09-2025 12:40-0400 Heart rate 67 /min Gladys Suppan [employer] Work Phone: [facility] 09-09-2025 12:40-0400 Respiratory rate 16 /min Gladys Suppan [employer] Work Phone: [facility] 09-09-2025 12:40-0400 SaO2% (BldA) [Mass fraction] 95 % Gladys Suppan [employer] Work Phone: [facility] 09-09-2025 12:40-0400 Systolic blood pressure 121 mm[Hg] Gladys Suppan [employer] Work Phone: [phone] [place] [address] 09-09-2025 08:39-0400 Body height 172.72 cm Gladys Suppan [employer] Work Phone: [phone] [place] [address] 09-09-2025 08:39-0400 Body mass index (BMI) [Ratio] 26.3 kg/m2 Gladys Suppan [employer] Work Phone: [phone] [place] [address] 09-09-2025 08:39-0400 Body weight 78.47 kg Gladys Suppan [employer] Work Phone: [phone] [place] [address] 08-26-2025 12:01-0400 Body temperature 97.1 [degF] Gladys Suppan [employer] Work Phone: [phone] [place] [address] 08-26-2025 12:01-0400 Diastolic blood pressure 49 mm[Hg] Gladys Suppan [employer] Work Phone: [phone] [place] [address] 08-26-2025 12:01-0400 Heart rate 73 /min Gladys Suppan [employer] Work Phone: [phone])[phone] [place] [address] 08-26-2025 12:01-0400 Respiratory rate 16 /min Gladys Suppan [employer] Work Phone: [phone])[phone] [place] [address] 08-26-2025 12:01-0400 Systolic blood pressure 142 mm[Hg] Gladys Suppan [employer] Work Phone: [phone] [place] [address] 08-26-2025 10:13-0400 SaO2% (BldA) [Mass fraction] 95 % Gladys Suppan [employer] Work Phone: [phone] [place] [address] 08-26-2025 08:34-0400 Body mass index (BMI) [Ratio] 26.3 kg/m2 Gladys Suppan [employer] Work Phone: [phone] [place] [address] 08-26-2025 08:34-0400 Body weight 78.47 kg Gladys Suppan [employer] Work Phone: [phone])[phone] [place] [address] 08-12-2025 13:17-0400 Body temperature 97 [degF] Gladys Suppan [employer] Work Phone: [phone] [place] [address] 08-12-2025 13:17-0400 Diastolic blood pressure 44 mm[Hg] Gladys Suppan [employer] Work Phone: [phone])[phone] [place] [address] 08-12-2025 13:17-0400 Heart rate 66 /min Gladys Suppan [employer] Work Phone: [phone] [place] [address] 08-12-2025 13:17-0400 Respiratory rate 14 /min Gladys Suppan [employer] Work Phone: [phone])[phone] [place] [address] 08-12-2025 13:17-0400 SaO2% (BldA) [Mass fraction] 96 % Gladys Suppan [employer] Work Phone: [phone] [place] [address] 08-12-2025 13:17-0400 Systolic blood pressure 127 mm[Hg] Gladys Suppan [employer] Work Phone: [phone])[phone] [place] [address] 08-12-2025 08:51-0400 Body height 172.72 cm Gladys Suppan [employer] Work Phone: [phone])[phone] [place] [address] 08-12-2025 08:51-0400 Body mass index (BMI) [Ratio] 26.3 kg/m2 Gladys Suppan [employer] Work Phone: [phone] [place] [address] 08-12-2025 08:51-0400 Body weight 78.47 kg Gladys Suppan [employer] Work Phone: [phone] [place] [address] 07-29-2025 13:23-0400 Body temperature 97.6 [degF] Gladys Suppan [employer] Work Phone: [phone])[phone] [place] [address] 07-29-2025 13:23-0400 Diastolic blood pressure 42 mm[Hg] Gladys Suppan [employer] Work Phone: [phone] [place] [address] 07-29-2025 13:23-0400 Heart rate 67 /min Gladys Suppan [employer] Work Phone: [phone])[phone] [place] [address] 07-29-2025 13:23-0400 Respiratory rate 16 /min Gladys Suppan [employer] Work Phone: [phone])[phone] [place] [address] 07-29-2025 13:23-0400 SaO2% (BldA) [Mass fraction] 95 % Gladys Suppan [employer] Work Phone: [phone] [place] [address] 07-29-2025 13:23-0400 Systolic blood pressure 129 mm[Hg] Gladys Suppan [employer] Work Phone: [phone] [place] [address] 07-29-2025 08:27-0400 Body height 172.72 cm Gladys Suppan [employer] Work Phone: [phone] [place] [address] 07-29-2025 08:27-0400 Body mass index (BMI) [Ratio] 26.3 kg/m2 Gladys Suppan [employer] Work Phone: [phone])[phone] [place] [address] 07-29-2025 08:27-0400 Body weight 78.47 kg Gladys Suppan [employer] Work Phone: [phone])[phone] [place] [address] 07-15-2025 12:47-0400 Body temperature 97.9 [degF] Gladys Suppan [employer] Work Phone: [phone])[phone] [place] [address] 07-15-2025 12:47-0400 Diastolic blood pressure 46 mm[Hg] Gladys Suppan [employer] Work Phone: [phone])[phone] [place] [address] 07-15-2025 12:47-0400 Heart rate 69 /min Gladys Suppan [employer] Work Phone: [phone])[phone] [place] [address] 07-15-2025 12:47-0400 Respiratory rate 16 /min Gladys Suppan [employer] Work Phone: [phone])[phone] [place] [address] 07-15-2025 12:47-0400 SaO2% (BldA) [Mass fraction] 98 % Gladys Suppan [employer] Work Phone: [phone] [place] [address] 07-15-2025 12:47-0400 Systolic blood pressure 142 mm[Hg] Gladys Suppan [employer] Work Phone: [phone])[phone] [place] [address] 07-15-2025 08:56-0400 Body height 172.72 cm Gladys Suppan [employer] Work Phone: [phone] [place] [address] 07-15-2025 08:56-0400 Body mass index (BMI) [Ratio] 26.3 kg/m2 Gladys Suppan [employer] Work Phone: [facility] 07-15-2025 08:56-0400 Body weight 78.47 kg Gladys Suppan [employer] Work Phone: [facility] 07-01-2025 13:36-0400 Diastolic blood pressure 41 mm[Hg] Gladys Suppan [employer] Work Phone: [phone])[phone] [place] [address] 07-01-2025 13:36-0400 Heart rate 66 /min Gladys Suppan [employer] Work Phone: [phone] [place] [address] 07-01-2025 13:36-0400 Respiratory rate 16 /min Gladys Suppan [employer] Work Phone: [facility] 07-01-2025 13:36-0400 Systolic blood pressure 126 mm[Hg] Gladys Suppan [employer] Work Phone: [facility] 07-01-2025 12:15-0400 Body temperature 96.9 [degF] Gladsy Suppan [employer] Work Phone: [facility] 07-01-2025 12:15-0400 SaO2% (BldA) [Mass fraction] 99 % Gladys Suppan [employer] Work Phone: [facility] 07-01-2025 08:55-0400 Body height 172.72 cm Gladys Suppan [employer] Work Phone: [facility] 07-01-2025 08:55-0400 Body mass index (BMI) [Ratio] 26.3 kg/m2 Gladys Suppan [employer] Work Phone: [facility] 07-01-2025 08:55-0400 Body weight 78.47 kg Gladys Suppan [employer] Work Phone: [facility] 06-30-2025 11:14-0400 Body mass index (BMI) [Ratio] 26.64 kg/m2 Steven Akers DO Work Phone: [facility] 06-30-2025 11:14-0400 Body temperature 97.7 [degF] Steven Pinedai DO Work Phone: [facility] 06-30-2025 11:14-0400 Body weight 80.74 kg Steven Pinedai DO Work Phone: [facility] 06-30-2025 11:14-0400 Diastolic blood pressure 71 mm[Hg] Steven Pinedai DO Work Phone: [facility] 06-30-2025 11:14-0400 Heart rate 71 /min Steven Pinedai DO Work Phone: [facility] 06-30-2025 11:14-0400 SaO2% (BldA) [Mass fraction] 98 % Steven Pinedai DO Work Phone: [facility] 06-30-2025 11:14-0400 Systolic blood pressure 124 mm[Hg] Steven Pinedai DO Work Phone: [facility] 06-17-2025 12:24-0400 Body temperature 96.8 [degF] Gladys Suppan [employer] Work Phone: [facility] 06-17-2025 12:24-0400 Diastolic blood pressure 55 mm[Hg] Gladys Suppan [employer] Work Phone: [facility] 06-17-2025 12:24-0400 Heart rate 72 /min Gladys Suppan [employer] Work Phone: [facility] 06-17-2025 12:24-0400 Respiratory rate 16 /min Gladys Suppan [employer] Work Phone: [facility] 06-17-2025 12:24-0400 SaO2% (BldA) [Mass fraction] 99 % Gladys Suppan [employer] Work Phone: [facility] 06-17-2025 12:24-0400 Systolic blood pressure 136 mm[Hg] Gladys Suppan [employer] Work Phone: [facility] 06-17-2025 08:21-0400 Body height 172.72 cm Gladys Suppan [employer] Work Phone: [phone] [place] [address] 06-17-2025 08:21-0400 Body mass index (BMI) [Ratio] 26.3 kg/m2 Gladys Suppan [employer] Work Phone: [phone] [place] [address] 06-17-2025 08:21-0400 Body weight 78.47 kg Gladys Suppan [employer] RO[employer]ER HELPER Work Phone: 6(705)226-658004 [place] [address] 06-03-2025 13:30-0400 Body temperature 98.3 [degF] Gladys Suppan [employer] HELPER Work Phone: 2(515)363-722704 [place] [address] 06-03-2025 13:30-0400 Diastolic blood pressure 50 mm[Hg] Gladys Suppan [employer] RO[employer]ER HELPER Work Phone: 8(754)788-831304 [place] [address] 06-03-2025 13:30-0400 Heart rate 64 /min Gladys Suppan [employer] RO[employer]ER HELPER Work Phone: 7(275)352-362904 [place] [address] 06-03-2025 13:30-0400 Respiratory rate 16 /min Gladys Suppan [employer] RO[employer]ER HELPER Work Phone: 4(519)597-374904 [place] [address] 06-03-2025 13:30-0400 SaO2% (BldA) [Mass fraction] 99 % Gladys Suppan [employer] HELPER Work Phone: 1(172)708-887604 [place] [address] 06-03-2025 13:30-0400 Systolic blood pressure 129 mm[Hg] Gladys Suppan [employer]ER HELPER Work Phone: 4(318)948-882804 [place] [address] 06-03-2025 08:58-0400 Body height 172.72 cm Gladys Suppan [employer] HELPER Work Phone: 5(032)932-725104 [place] [address] 06-03-2025 08:58-0400 Body mass index (BMI) [Ratio] 25.8 kg/m2 Gladys Suppan [employer] HELPER Work Phone: 0(105)839-251504 [place] [address] 06-03-2025 08:58-0400 Body weight 77.11 kg Gladys Suppan [employer] RO[employer]ER HELPER Work Phone: 4(417)129-952604 [place] [address] 05-20-2025 13:45-0400 Body temperature 96.4 [degF] IRENA OGLESBY Work Phone: 5(871)750-808304 [place] [address] 05-20-2025 13:45-0400 Diastolic blood pressure 46 mm[Hg] NA Carter PA Work Phone: 0(776)978-907604 [place] [address] 05-20-2025 13:45-0400 Heart rate 65 /min NA Carter PA Work Phone: 5(821)830-373104 [place] [address] 05-20-2025 13:45-0400 Respiratory rate 16 /min NA Carter PA Work Phone: 5(284)704-541304 [place] [address] 05-20-2025 13:45-0400 SaO2% (BldA) [Mass fraction] 98 % NA Carter PA Work Phone: 3(838)393-145904 [place] [address] 05-20-2025 13:45-0400 Systolic blood pressure 130 mm[Hg] NA Carter PA Work Phone: 9(763)893-609104 [place] [address] 05-20-2025 08:49-0400 Body height 172.72 cm NA Carter PA Work Phone: 5(914)935-998704 [place] [address] 05-20-2025 08:49-0400 Body mass index (BMI) [Ratio] 26.6 kg/m2 NA Carter PA Work Phone: 4(431)836-157404 [place] [address] 05-20-2025 08:49-0400 Body weight 79.37 kg NA Carter PA Work Phone: 9(357)930-241204 [place] [address] 05-06-2025 13:35-0400 Body temperature 96.6 [degF] NA Carter PA Work Phone: 9(565)024-312204 [place] [address] 05-06-2025 13:35-0400 Diastolic blood pressure 62 mm[Hg] NA Carter PA Work Phone: 6(026)091-568604 [place] [address] 05-06-2025 13:35-0400 Heart rate 68 /min NA Carter PA Work Phone: 0(896)537-701804 [place] [address] 05-06-2025 13:35-0400 Respiratory rate 16 /min NA Carter PA Work Phone: 6(646)462-865904 [place] [address] 05-06-2025 13:35-0400 SaO2% (BldA) [Mass fraction] 99 % NA Carter PA Work Phone: [facility] 05-06-2025 13:35-0400 Systolic blood pressure 125 mm[Hg] NA Carter PA Work Phone: [facility] 05-06-2025 08:51-0400 Body height 172.72 cm NA Carter PA Work Phone: [facility] 05-06-2025 08:51-0400 Body mass index (BMI) [Ratio] 26.6 kg/m2 NA Carter PA Work Phone: [facility] 05-06-2025 08:51-0400 Body weight 79.37 kg NA Carter PA Work Phone: [facility] 04-22-2025 13:06-0400 Body temperature 97.3 [degF] NA Carter PA Work Phone: [facility] 04-22-2025 13:06-0400 Diastolic blood pressure 48 mm[Hg] NA Carter PA Work Phone: [facility] 04-22-2025 13:06-0400 Heart rate 66 /min NA Carter PA Work Phone: 4(728)160-260856 [place] [address] 04-22-2025 13:06-0400 Respiratory rate 16 /min NA Carter PA Work Phone: [facility] 04-22-2025 13:06-0400 SaO2% (BldA) [Mass fraction] 96 % NA Carter PA Work Phone: [facility] 04-22-2025 13:06-0400 Systolic blood pressure 130 mm[Hg] NA Carter PA Work Phone: [facility] 04-21-2025 10:30-0400 Body height 174.1 cm Steven Akers DO Work Phone: [facility] 04-21-2025 10:30-0400 Body mass index (BMI) [Ratio] 26.94 kg/m2 Steven Akers DO Work Phone: [facility] 04-21-2025 10:30-0400 Body temperature 98.1 [degF] Steven Masci DO Work Phone: [facility] 04-21-2025 10:30-0400 Body weight 81.65 kg Steven Masci DO Work Phone: [facility] 04-21-2025 10:30-0400 Diastolic blood pressure 52 mm[Hg] Steven Masci DO Work Phone: [facility] 04-21-2025 10:30-0400 Heart rate 67 /min Steven Masci DO Work Phone: [facility] 04-21-2025 10:30-0400 Respiratory rate 17 /min Steven Masci DO Work Phone: [facility] 04-21-2025 10:30-0400 SaO2% (BldA) [Mass fraction] 96 % Steven Masci DO Work Phone: [facility] 04-21-2025 10:30-0400 Systolic blood pressure 119 mm[Hg] Steven Masci DO Work Phone: [facility] 04-08-2025 13:13-0400 Body temperature 97.2 [degF] NA Carter PA Work Phone: [facility] 04-08-2025 13:13-0400 Diastolic blood pressure 51 mm[Hg] NA Carter PA Work Phone: [facility] 04-08-2025 13:13-0400 Heart rate 68 /min NA Carter PA Work Phone: [facility] 04-08-2025 13:13-0400 Respiratory rate 16 /min NA Carter PA Work Phone: [facility] 04-08-2025 13:13-0400 SaO2% (BldA) [Mass fraction] 94 % NA Carter PA Work Phone: [facility] 04-08-2025 13:13-0400 Systolic blood pressure 115 mm[Hg] NA Carter PA Work Phone: [facility] 04-08-2025 08:23-0400 Body height 172.72 cm NA Carter PA Work Phone: 8(125)877-496804 [place] [address] 04-08-2025 08:23-0400 Body mass index (BMI) [Ratio] 26.6 kg/m2 NA Carter PA Work Phone: 3(878)740-752204 [place] [address] 04-08-2025 08:23-0400 Body weight 79.37 kg NA Carter PA Work Phone: 1(950)558-484604 [place] [address] 03-25-2025 10:34-0400 Diastolic blood pressure 49 mm[Hg] NA Carter PA Work Phone: 5(881)211-693804 [place] [address] 03-25-2025 10:34-0400 Heart rate 64 /min NA Carter PA Work Phone: 7(302)755-006204 [place] [address] 03-25-2025 10:34-0400 Respiratory rate 16 /min NA Carter PA Work Phone: 1(757)302-586604 [place] [address] 03-25-2025 10:34-0400 Systolic blood pressure 141 mm[Hg] NA Carter PA Work Phone: 8(639)278-650104 [place] [address] 03-25-2025 09:01-0400 Body temperature 96.8 [degF] NA Carter PA Work Phone: 6(532)357-726504 [place] [address] 03-25-2025 09:01-0400 SaO2% (BldA) [Mass fraction] 96 % NA Carter PA Work Phone: 6(823)764-969704 [place] [address] 03-25-2025 08:26-0400 Body height 172.72 cm NA Carter PA Work Phone: 4(500)833-807404 [place] [address] 03-25-2025 08:26-0400 Body mass index (BMI) [Ratio] 26.6 kg/m2 NA Carter PA Work Phone: 5(162)151-019204 [place] [address] 03-25-2025 08:26-0400 Body weight 79.37 kg NA Carter PA Work Phone: 2(248)399-836604 [place] [address] 03-11-2025 12:42-0400 Body temperature 97.1 [degF] NA Carter PA Work Phone: 5(561)376-308204 [place] [address] 03-11-2025 12:42-0400 Diastolic blood pressure 46 mm[Hg] NA Carter PA Work Phone: 7(398)753-944556 [place] [address] 03-11-2025 12:42-0400 Heart rate 64 /min NA Carter PA Work Phone: [facility] 03-11-2025 12:42-0400 Respiratory rate 16 /min NA Carter PA Work Phone: 5(202)583-663856 [place] [address] 03-11-2025 12:42-0400 SaO2% (BldA) [Mass fraction] 98 % NA Carter PA Work Phone: 2(989)907-825840 [address] 03-11-2025 12:42-0400 Systolic blood pressure 134 mm[Hg] NA Carter PA Work Phone: 4(725)209-849004 [place] [address] 02-25-2025 12:56-0400 Body temperature 96 [degF] NA Carter PA Work Phone: 5(327)433-667604 [place] [address] 02-25-2025 12:56-0400 Diastolic blood pressure 53 mm[Hg] NA Carter PA Work Phone: 0(355)486-556304 [place] [address] 02-25-2025 12:56-0400 Heart rate 63 /min NA Carter PA Work Phone: 6(556)701-875504 [place] [address] 02-25-2025 12:56-0400 Respiratory rate 16 /min NA Carter PA Work Phone: 6(235)762-239004 [place] [address] 02-25-2025 12:56-0400 SaO2% (BldA) [Mass fraction] 100 % NA Carter PA Work Phone: 4(419)062-109556 [place] [address] 02-25-2025 12:56-0400 Systolic blood pressure 141 mm[Hg] NA Carter PA Work Phone: 4(084)706-765504 [place] [address] 02-25-2025 08:45-0400 Body height 172.72 cm NA Carter PA Work Phone: 4(924)649-965804 [place] [address] 02-25-2025 08:45-0400 Body mass index (BMI) [Ratio] 26.3 kg/m2 NA Carter PA Work Phone: [facility] 02-25-2025 08:45-0400 Body weight 78.47 kg NA Carter PA Work Phone: [facility] 02-24-2025 10:04-0400 Body mass index (BMI) [Ratio] 27.05 kg/m2 Domenicaander Garcia Work Phone: [facility] 02-24-2025 10:04-0400 Body temperature 98.1 [degF] Domenica Garcia Work Phone: [facility] 02-24-2025 10:04-0400 Body weight 80.97 kg Domenica Garcia Work Phone: [facility] 02-24-2025 10:04-0400 Diastolic blood pressure 70 mm[Hg] Domenica Garcia Work Phone: [facility] 02-24-2025 10:04-0400 Heart rate 67 /min Domenica Garcia Work Phone: [facility] 02-24-2025 10:04-0400 SaO2% (BldA) [Mass fraction] 98 % Domenica Garcia Work Phone: [facility] 02-24-2025 10:04-0400 Systolic blood pressure 133 mm[Hg] Domenica Garcia Work Phone: [facility] 02-11-2025 12:55-0400 Body temperature 97.1 [degF] NA Carter PA Work Phone: [facility] 02-11-2025 12:55-0400 Diastolic blood pressure 61 mm[Hg] NA Carter PA Work Phone: [facility] 02-11-2025 12:55-0400 Heart rate 67 /min NA Carter PA Work Phone: [facility] 02-11-2025 12:55-0400 Respiratory rate 16 /min NA Carter PA Work Phone: [facility] 02-11-2025 12:55-0400 SaO2% (BldA) [Mass fraction] 95 % NA Carter PA Work Phone: [facility] 02-11-2025 12:55-0400 Systolic blood pressure 134 mm[Hg] NA Carter PA Work Phone: 8(155)497-062856 [place] [address] 02-10-2025 18:00-0400 Heart rate 89 /min NA Carter PA Work Phone: 8(830)757-176604 [place] [address] 02-10-2025 18:00-0400 Respiratory rate 20 /min NA Carter PA Work Phone: 0(692)488-100204 [place] [address] 02-10-2025 18:00-0400 SaO2% (BldA) [Mass fraction] 91 % NA Carter PA Work Phone: 1(975)840-833204 [place] [address] 02-10-2025 16:00-0400 Diastolic blood pressure 67 mm[Hg] NA Carter PA Work Phone: 9(731)908-764904 [place] [address] 02-10-2025 16:00-0400 Systolic blood pressure 164 mm[Hg] NA Carter PA Work Phone: 6(212)307-631404 [place] [address] 02-10-2025 12:48-0400 Body mass index (BMI) [Ratio] 27.6 kg/m2 NA Carter PA Work Phone: 4(559)655-907304 [place] [address] 02-10-2025 12:48-0400 Body temperature 98.1 [degF] NA Carter PA Work Phone: 7(960)018-093704 [place] [address] 02-10-2025 12:48-0400 Body weight 82.55 kg NA Carter PA Work Phone: 4(214)083-260804 [place] [address] 01-28-2025 13:11-0400 Body temperature 96.4 [degF] NA Carter PA Work Phone: 9(318)673-852704 [place] [address] 01-28-2025 13:11-0400 Diastolic blood pressure 52 mm[Hg] NA Carter PA Work Phone: 8(215)626-522504 [place] [address] 01-28-2025 13:11-0400 Heart rate 62 /min NA Carter PA Work Phone: 0(170)162-600656 [place] [address] 01-28-2025 13:11-0400 Respiratory rate 16 /min NA Carter PA Work Phone: [facility] 01-28-2025 13:11-0400 SaO2% (BldA) [Mass fraction] 96 % NA Carter PA Work Phone: [facility] 01-28-2025 13:11-0400 Systolic blood pressure 131 mm[Hg] NA Carter PA Work Phone: [facility] 01-28-2025 08:33-0400 Body height 172.72 cm NA Carter PA Work Phone: [facility] 01-28-2025 08:33-0400 Body mass index (BMI) [Ratio] 26.6 kg/m2 NA Carter PA Work Phone: [facility] 01-28-2025 08:33-0400 Body weight 79.37 kg NA Carter PA Work Phone: [facility] 01-27-2025 11:36-0400 Body mass index (BMI) [Ratio] 27.74 kg/m2 Gladys Suppan [employer] 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.FACTORY REPRESENTATIVE Work Phone: [facility] 01-27-2025 11:36-0400 Body temperature 97.7 [degF] Gladys Suppan [employer] PROGRAMMER.FACTORY REPRESENTATIVE Work Phone: [facility] 01-27-2025 11:36-0400 Body weight 83.01 kg Gladys Suppan [employer] PROGRAMMER.FACTORY REPRESENTATIVE Work Phone: [facility] 01-27-2025 11:36-0400 Diastolic blood pressure 54 mm[Hg] Gladys Suppan [employer]PH[employer] PROGRAMMER.FACTORY REPRESENTATIVE Work Phone: [facility] 01-27-2025 11:36-0400 Heart rate 72 /min Gladys Suppan [employer]PH[employer] PROGRAMMER.FACTORY REPRESENTATIVE Work Phone: [facility] 01-27-2025 11:36-0400 SaO2% (BldA) [Mass fraction] 94 % Gladys Suppan [employer]PH[employer] PROGRAMMER.FACTORY REPRESENTATIVE Work Phone: [facility] 01-27-2025 11:36-0400 Systolic blood pressure 136 mm[Hg] Gladys Da Silva [employer]PH[employer] PROGRAMMER.FACTORY REPRESENTATIVE Work Phone: [facility] 01-14-2025 13:01-0500 Body temperature 97.6 [degF] NA Carter PA Work Phone: [facility] 01-14-2025 13:01-0500 Diastolic blood pressure 48 mm[Hg] NA Carter PA Work Phone: [facility] 01-14-2025 13:01-0500 Heart rate 68 /min NA Carter PA Work Phone: 3(503)671-056856 [place] [address] 01-14-2025 13:01-0500 Respiratory rate 16 /min NA Carter PA Work Phone: [facility] 01-14-2025 13:01-0500 SaO2% (BldA) [Mass fraction] 94 % NA Carter PA Work Phone: [facility] 01-14-2025 13:01-0500 Systolic blood pressure 138 mm[Hg] NA Carter PA Work Phone: [facility] 01-14-2025 08:28-0500 Body height 172.72 cm NA Carter PA Work Phone: [facility] 12-31-2024 13:34-0500 Body temperature 97.2 [degF] NA Carter PA Work Phone: [facility] 12-31-2024 13:34-0500 Diastolic blood pressure 72 mm[Hg] NA Carter PA Work Phone: [facility] 12-31-2024 13:34-0500 Heart rate 70 /min NA Carter PA Work Phone: [facility] 12-31-2024 13:34-0500 Respiratory rate 16 /min NA Carter PA Work Phone: [facility] 12-31-2024 13:34-0500 SaO2% (BldA) [Mass fraction] 97 % NA Carter PA Work Phone: [facility] 12-31-2024 13:34-0500 Systolic blood pressure 138 mm[Hg] NA Carter PA Work Phone: [facility] 12-17-2024 12:16-0500 Body temperature 97.8 [degF] NA Carter PA Work Phone: [facility] 12-17-2024 12:16-0500 Diastolic blood pressure 52 mm[Hg] NA Carter PA Work Phone: [facility] 12-17-2024 12:16-0500 Heart rate 68 /min NA Carter PA Work Phone: [facility] 12-17-2024 12:16-0500 Respiratory rate 16 /min NA Carter PA Work Phone: [facility] 12-17-2024 12:16-0500 SaO2% (BldA) [Mass fraction] 96 % NA Carter PA Work Phone: [facility] 12-17-2024 12:16-0500 Systolic blood pressure 128 mm[Hg] NA Carter PA Work Phone: [facility] 12-16-2024 11:02-0500 Body mass index (BMI) [Ratio] 27.43 kg/m2 Steven Masci DO Work Phone: [facility] 12-16-2024 11:02-0500 Body temperature 97.81 [degF] Steven Masci DO Work Phone: [facility] 12-16-2024 11:02-0500 Body weight 82.1 kg Steven Masci DO Work Phone: [facility] 12-16-2024 11:02-0500 Diastolic blood pressure 73 mm[Hg] Steven Masci DO Work Phone: [facility] 12-16-2024 11:02-0500 Heart rate 68 /min Steven Masci DO Work Phone: [facility] 12-16-2024 11:02-0500 Respiratory rate 12 /min Steven Masci DO Work Phone: [facility] 12-16-2024 11:02-0500 SaO2% (BldA) [Mass fraction] 97 % Steven Pinedai DO Work Phone: [facility] 12-16-2024 11:02-0500 Systolic blood pressure 139 mm[Hg] Steven Pinedai DO Work Phone: [facility] 12-03-2024 11:48-0500 Body temperature 96.9 [degF] NA Carter PA Work Phone: [facility] 12-03-2024 11:48-0500 Diastolic blood pressure 64 mm[Hg] NA Carter PA Work Phone: [facility] 12-03-2024 11:48-0500 Heart rate 70 /min NA Carter PA Work Phone: 5(340)666-613956 [place] [address] 12-03-2024 11:48-0500 Respiratory rate 16 /min NA Carter PA Work Phone: [facility] 12-03-2024 11:48-0500 SaO2% (BldA) [Mass fraction] 99 % NA Carter PA Work Phone: 1(169)697-281256 [place] [address] 12-03-2024 11:48-0500 Systolic blood pressure 135 mm[Hg] NA Carter PA Work Phone: [facility] 12-03-2024 08:24-0500 Body mass index (BMI) [Ratio] 25.8 kg/m2 NA Carter PA Work Phone: [facility] 12-03-2024 08:24-0500 Body weight 77.11 kg NA Carter PA Work Phone: 0(070)923-897756 [place] [address] 11-12-2024 14:04-0500 Body temperature 97.8 [degF] NA Carter PA Work Phone: [facility] 11-12-2024 14:04-0500 Diastolic blood pressure 67 mm[Hg] NA Carter PA Work Phone: [facility] 11-12-2024 14:04-0500 Heart rate 74 /min NA Carter PA Work Phone: 2(449)701-314756 [place] [address] 11-12-2024 14:04-0500 Respiratory rate 14 /min NA Carter PA Work Phone: 9(631)781-349956 [place] [address] 11-12-2024 14:04-0500 SaO2% (BldA) [Mass fraction] 96 % NA Carter PA Work Phone: 2(805)774-137156 [place] [address] 11-12-2024 14:04-0500 Systolic blood pressure 154 mm[Hg] NA Carter PA Work Phone: 1(210)774-681504 [place] [address] 10-22-2024 14:05-0500 Body temperature 97.2 [degF] NA Carter PA Work Phone: 6(349)933-327404 [place] [address] 10-22-2024 14:05-0500 Diastolic blood pressure 46 mm[Hg] NA Carter PA Work Phone: 8(806)400-904504 [place] [address] 10-22-2024 14:05-0500 Heart rate 62 /min NA Carter PA Work Phone: 6(355)930-107104 [place] [address] 10-22-2024 14:05-0500 Respiratory rate 16 /min NA Carter PA Work Phone: 9(036)464-680004 [place] [address] 10-22-2024 14:05-0500 SaO2% (BldA) [Mass fraction] 99 % NA Carter PA Work Phone: 0(431)809-605304 [place] [address] 10-22-2024 14:05-0500 Systolic blood pressure 137 mm[Hg] NA Carter PA Work Phone: 7(088)178-153504 [place] [address] 10-22-2024 09:20-0500 Body mass index (BMI) [Ratio] 26.3 kg/m2 NA Carter PA Work Phone: 7(803)595-347804 [place] [address] 10-22-2024 09:20-0500 Body weight 78.47 kg NA Carter PA Work Phone: 7(024)364-620604 [place] [address] 10-01-2024 13:20-0500 Body temperature 97 [degF] NA Carter PA Work Phone: 9(404)924-349256 [place] [address] 10-01-2024 13:20-0500 Diastolic blood pressure 53 mm[Hg] NA Carter PA Work Phone: [facility] 10-01-2024 13:20-0500 Heart rate 72 /min NA Carter PA Work Phone: [facility] 10-01-2024 13:20-0500 Respiratory rate 16 /min NA Carter PA Work Phone: [facility] 10-01-2024 13:20-0500 SaO2% (BldA) [Mass fraction] 100 % NA Carter PA Work Phone: [facility] 10-01-2024 13:20-0500 Systolic blood pressure 150 mm[Hg] NA Carter PA Work Phone: [facility] 09-30-2024 09:40-0500 Body mass index (BMI) [Ratio] 26.98 kg/m2 Treatment Wstr Work Phone: [facility] 09-30-2024 09:40-0500 Body temperature 97.11 [degF] Treatment Wstr Work Phone: [facility] 09-30-2024 09:40-0500 Body weight 80.74 kg Treatment Wstr Work Phone: [facility] 09-30-2024 09:40-0500 Diastolic blood pressure 64 mm[Hg] Treatment Wstr Work Phone: [facility] 09-30-2024 09:40-0500 Heart rate 78 /min Treatment Wstr Work Phone: [facility] 09-30-2024 09:40-0500 SaO2% (BldA) [Mass fraction] 97 % Treatment Wstr Work Phone: [facility] 09-30-2024 09:40-0500 Systolic blood pressure 145 mm[Hg] Treatment Wstr Work Phone: [facility] 09-24-2024 11:05-0500 Body temperature 97.2 [degF] NA Carter PA Work Phone: [facility] 09-24-2024 11:05-0500 Diastolic blood pressure 57 mm[Hg] NA Carter PA Work Phone: [facility] 09-24-2024 11:05-0500 Heart rate 68 /min NA Carter PA Work Phone: [facility] 09-24-2024 11:05-0500 Respiratory rate 16 /min NA Carter PA Work Phone: [facility] 09-24-2024 11:05-0500 SaO2% (BldA) [Mass fraction] 98 % NA Carter PA Work Phone: [facility] 09-24-2024 11:05-0500 Systolic blood pressure 128 mm[Hg] NA Carter PA Work Phone: [facility] 09-24-2024 08:48-0500 Body mass index (BMI) [Ratio] 26.3 kg/m2 NA Carter PA Work Phone: [facility] 09-24-2024 08:48-0500 Body weight 78.47 kg NA Carter PA Work Phone: [facility] 09-23-2024 10:46-0500 Body mass index (BMI) [Ratio] 26.83 kg/m2 Treatment Wstr Work Phone: [facility] 09-23-2024 10:46-0500 Body temperature 97.81 [degF] Treatment Wstr Work Phone: [facility] 09-23-2024 10:46-0500 Body weight 80.29 kg Treatment Wstr Work Phone: [facility] 09-23-2024 10:46-0500 Diastolic blood pressure 59 mm[Hg] Treatment Wstr Work Phone: [facility] 09-23-2024 10:46-0500 Heart rate 69 /min Treatment Wstr Work Phone: [facility] 09-23-2024 10:46-0500 Respiratory rate 18 /min Treatment Wstr Work Phone: [facility] 09-23-2024 10:46-0500 SaO2% (BldA) [Mass fraction] 99 % Treatment Wstr Work Phone: [facility] 09-23-2024 10:46-0500 Systolic blood pressure 140 mm[Hg] Treatment Wstr Work Phone: [facility] 09-16-2024 09:58-0500 Body mass index (BMI) [Ratio] 26.9 kg/m2 Treatment Wstr Work Phone: [facility] 09-16-2024 09:58-0500 Body temperature 97.7 [degF] Treatment Wstr Work Phone: [facility] 09-16-2024 09:58-0500 Body weight 80.51 kg Treatment Wstr Work Phone: [facility] 09-16-2024 09:58-0500 Diastolic blood pressure 70 mm[Hg] Treatment Wstr Work Phone: [facility] 09-16-2024 09:58-0500 Heart rate 68 /min Treatment Wstr Work Phone: [facility] 09-16-2024 09:58-0500 SaO2% (BldA) [Mass fraction] 96 % Treatment Wstr Work Phone: [facility] 09-16-2024 09:58-0500 Systolic blood pressure 136 mm[Hg] Treatment Wstr Work Phone: [facility] 09-09-2024 10:00-0400 Body mass index (BMI) [Ratio] 26.9 kg/m2 Treatment Wstr Work Phone: [facility] 09-09-2024 10:00-0400 Body temperature 97.7 [degF] Treatment Wstr Work Phone: [facility] 09-09-2024 10:00-0400 Body weight 80.51 kg Treatment Wstr Work Phone: [facility] 09-09-2024 10:00-0400 Diastolic blood pressure 68 mm[Hg] Treatment Wstr Work Phone: [facility] 09-09-2024 10:00-0400 Heart rate 68 /min Treatment Wstr Work Phone: [facility] 09-09-2024 10:00-0400 Respiratory rate 18 /min Treatment Wstr Work Phone: [facility] 09-09-2024 10:00-0400 SaO2% (BldA) [Mass fraction] 97 % Treatment Wstr Work Phone: [facility] 09-09-2024 10:00-0400 Systolic blood pressure 132 mm[Hg] Treatment Wstr Work Phone: [facility] 09-02-2024 11:54-0400 Body mass index (BMI) [Ratio] 26.9 kg/m2 Treatment Wstr Work Phone: [facility] 09-02-2024 11:54-0400 Body temperature 97.81 [degF] Treatment Wstr Work Phone: [facility] 09-02-2024 11:54-0400 Body weight 80.51 kg Treatment Wstr Work Phone: [facility] 09-02-2024 11:54-0400 Diastolic blood pressure 64 mm[Hg] Treatment Wstr Work Phone: [facility] 09-02-2024 11:54-0400 Heart rate 65 /min [facility] [facility] 09-[facility]2024 11:54-0400 SaO2% (BldA) [Mass fraction] 96 % Treatment Wstr Work Phone: [facility] 09-02-2024 11:54-0400 Systolic blood pressure 136 mm[Hg] Treatment Wstr Work Phone: [facility] 08-26-2024 11:00-0400 Body temperature 97.39 [degF] Treatment Wstr Work Phone: [facility] 08-26-2024 11:00-0400 Diastolic blood pressure 72 mm[Hg] Treatment Wstr Work Phone: [facility] 08-26-2024 11:00-0400 Heart rate 63 /min Treatment Wstr Work Phone: [facility] 08-26-2024 11:00-0400 Systolic blood pressure 131 mm[Hg] Treatment Wstr Work Phone: [facility] 08-19-2024 10:34-0400 Body mass index (BMI) [Ratio] 27.05 kg/m2 Treatment Wstr Work Phone: [facility] 08-19-2024 10:34-0400 Body temperature 98.01 [degF] Treatment Wstr Work Phone: [facility] 08-19-2024 10:34-0400 Body weight 80.97 kg Treatment Wstr Work Phone: [facility] 08-19-2024 10:34-0400 Diastolic blood pressure 65 mm[Hg] Treatment Wstr Work Phone: [facility] 08-19-2024 10:34-0400 Heart rate 69 /min Treatment Wstr Work Phone: [facility] 08-19-2024 10:34-0400 SaO2% (BldA) [Mass fraction] 95 % Treatment Wstr Work Phone: [facility] 08-19-2024 10:34-0400 Systolic blood pressure 137 mm[Hg] Treatment Wstr Work Phone: [facility] 08-12-2024 10:15-0400 Body mass index (BMI) [Ratio] 27.36 kg/m2 Treatment Wstr Work Phone: [facility] 08-12-2024 10:15-0400 Body temperature 97.3 [degF] Treatment Wstr Work Phone: [facility] 08-12-2024 10:15-0400 Body weight 81.87 kg Treatment Wstr Work Phone: [facility] 08-12-2024 10:15-0400 Diastolic blood pressure 74 mm[Hg] Treatment Wstr Work Phone: [facility] 08-12-2024 10:15-0400 Heart rate 72 /min Treatment Wstr Work Phone: [facility] 08-12-2024 10:15-0400 SaO2% (BldA) [Mass fraction] 95 % Treatment Wstr Work Phone: [facility] 08-12-2024 10:15-0400 Systolic blood pressure 130 mm[Hg] Treatment Wstr Work Phone: [facility] 08-05-2024 14:09-0400 Body mass index (BMI) [Ratio] 27.96 kg/m2 Treatment Wstr Work Phone: [facility] 08-05-2024 14:09-0400 Body weight 83.69 kg Treatment Wstr Work Phone: [facility] 07-28-2024 09:59-0400 Body mass index (BMI) [Ratio] 27.66 kg/m2 Steven Masci DO Work Phone: [facility] 07-28-2024 09:59-0400 Body temperature 97.5 [degF] Steven Masci DO Work Phone: [facility] 07-28-2024 09:59-0400 Body weight 82.78 kg Steven Masci DO Work Phone: [facility] 07-28-2024 09:59-0400 Diastolic blood pressure 68 mm[Hg] Steven Masci DO Work Phone: [facility] 07-28-2024 09:59-0400 Heart rate 64 /min Steven Masci DO Work Phone: [facility] 07-28-2024 09:59-0400 SaO2% (BldA) [Mass fraction] 96 % Steven Masci DO Work Phone: [facility] 07-28-2024 09:59-0400 Systolic blood pressure 135 mm[Hg] Steven Masci DO Work Phone: [facility] 07-22-2024 10:00-0400 Body mass index (BMI) [Ratio] 27.58 kg/m2 Treatment Wstr Work Phone: [facility] 07-22-2024 10:00-0400 Body temperature 97.5 [degF] Treatment Wstr Work Phone: [facility] 07-22-2024 10:00-0400 Body weight 82.56 kg Treatment Wstr Work Phone: [facility] 07-22-2024 10:00-0400 Diastolic blood pressure 71 mm[Hg] Treatment Wstr Work Phone: [facility] 07-22-2024 10:00-0400 Heart rate 78 /min Treatment Wstr Work Phone: [facility] 07-22-2024 10:00-0400 Systolic blood pressure 133 mm[Hg] Treatment Wstr Work Phone: [facility] 07-20-2024 11:12-0400 Body mass index (BMI) [Ratio] 27.58 kg/m2 Gladys Suppan [employer]PH[employer] PROGRAMMER.FACTORY REPRESENTATIVE Work Phone: [facility] 07-20-2024 11:12-0400 Body weight 82.56 kg Gladys Suppan DELPHI PROGRAMMER.FACTORY REPRESENTATIVE Work Phone: [facility] 07-20-2024 11:12-0400 Diastolic blood pressure 64 mm[Hg] Gladys Suppan DELPHI PROGRAMMER.FACTORY REPRESENTATIVE Work Phone: [facility] 07-20-2024 11:12-0400 Heart rate 67 /min Gladys Suppan DELPHI PROGRAMMER.FACTORY REPRESENTATIVE Work Phone: [facility] 07-20-2024 11:12-0400 Respiratory rate 18 /min Gladys Suppan DELPHI PROGRAMMER.FACTORY REPRESENTATIVE Work Phone: [facility] 07-20-2024 11:12-0400 SaO2% (BldA) [Mass fraction] 96 % Gladys Suppan DELPHI PROGRAMMER.FACTORY REPRESENTATIVE Work Phone: [facility] 07-20-2024 11:12-0400 Systolic blood pressure 128 mm[Hg] Gladys Suppan DELPHI PROGRAMMER.FACTORY REPRESENTATIVE Work Phone: [facility] 07-15-2024 11:08-0400 Body mass index (BMI) [Ratio] 27.13 kg/m2 Treatment Wstr Work Phone: [facility] 07-15-2024 11:08-0400 Body temperature 98.29 [degF] Treatment Wstr Work Phone: [facility] 07-15-2024 11:08-0400 Body weight 81.19 kg Treatment Wstr Work Phone: [facility] 07-15-2024 11:08-0400 Diastolic blood pressure 65 mm[Hg] Treatment Wstr Work Phone: [facility] 07-15-2024 11:08-0400 Heart rate 67 /min Treatment Wstr Work Phone: [facility] 07-15-2024 11:08-0400 SaO2% (BldA) [Mass fraction] 97 % Treatment Wstr Work Phone: [facility] 07-15-2024 11:08-0400 Systolic blood pressure 152 mm[Hg] Treatment Wstr Work Phone: [facility] 07-08-2024 10:00-0400 Body mass index (BMI) [Ratio] 27.13 kg/m2 Treatment Wstr Work Phone: [facility] 07-08-2024 10:00-0400 Body temperature 98.2 [degF] Treatment Wstr Work Phone: [facility] 07-08-2024 10:00-0400 Body weight 81.19 kg Treatment Wstr Work Phone: [facility] 07-08-2024 10:00-0400 Diastolic blood pressure 75 mm[Hg] Treatment Wstr Work Phone: [facility] 07-08-2024 10:00-0400 Heart rate 69 /min Treatment Wstr Work Phone: [facility] 07-08-2024 10:00-0400 Respiratory rate 18 /min Treatment Wstr Work Phone: [facility] 07-08-2024 10:00-0400 SaO2% (BldA) [Mass fraction] 98 % Treatment Wstr Work Phone: [facility] 07-08-2024 10:00-0400 Systolic blood pressure 130 mm[Hg] Treatment Wstr Work Phone: [facility] 07-01-2024 14:43-0400 Body mass index (BMI) [Ratio] 26.98 kg/m2 Treatment Wstr Work Phone: [facility] 07-01-2024 14:43-0400 Body temperature 97.5 [degF] Treatment Wstr Work Phone: [facility] 07-01-2024 14:43-0400 Body weight 80.74 kg Treatment Wstr Work Phone: [facility] 07-01-2024 14:43-0400 Diastolic blood pressure 68 mm[Hg] Treatment Wstr Work Phone: [facility] 07-01-2024 14:43-0400 Heart rate 75 /min Treatment Wstr Work Phone: [facility] 07-01-2024 14:43-0400 Respiratory rate 16 /min Treatment Wstr Work Phone: [facility] 07-01-2024 14:43-0400 Systolic blood pressure 142 mm[Hg] Treatment Wstr Work Phone: [facility] 06-24-2024 09:33-0400 Body mass index (BMI) [Ratio] 26.83 kg/m2 Treatment Wstr Work Phone: [facility] 06-24-2024 09:33-0400 Body temperature 97.39 [degF] Treatment Wstr Work Phone: [facility] 06-24-2024 09:33-0400 Body weight 80.29 kg Treatment Wstr Work Phone: [facility] 06-24-2024 09:33-0400 Diastolic blood pressure 67 mm[Hg] Treatment Wstr Work Phone: [facility] 06-24-2024 09:33-0400 Heart rate 75 /min Treatment Wstr Work Phone: [facility] 06-24-2024 09:33-0400 SaO2% (BldA) [Mass fraction] 98 % Treatment Wstr Work Phone: [facility] 06-24-2024 09:33-0400 Systolic blood pressure 132 mm[Hg] Treatment Wstr Work Phone: [facility] 06-17-2024 09:53-0400 Body temperature 97.9 [degF] Treatment Wstr Work Phone: [facility] 06-17-2024 09:53-0400 Diastolic blood pressure 71 mm[Hg] Treatment Wstr Work Phone: [facility] 06-17-2024 09:53-0400 Heart rate 68 /min Treatment Wstr Work Phone: [facility] 06-17-2024 09:53-0400 SaO2% (BldA) [Mass fraction] 97 % Treatment Wstr Work Phone: [facility] 06-17-2024 09:53-0400 Systolic blood pressure 128 mm[Hg] Treatment Wstr Work Phone: [facility] 06-09-2024 10:13-0400 Body mass index (BMI) [Ratio] 26.98 kg/m2 Treatment Wstr Work Phone: [facility] 06-09-2024 10:13-0400 Body temperature 97.59 [degF] Treatment Wstr Work Phone: [facility] 06-09-2024 10:13-0400 Body weight 80.74 kg Treatment Wstr Work Phone: [facility] 06-09-2024 10:13-0400 Diastolic blood pressure 69 mm[Hg] Treatment Wstr Work Phone: [facility] 06-09-2024 10:13-0400 Heart rate 73 /min Treatment Wstr Work Phone: [facility] 06-09-2024 10:13-0400 Systolic blood pressure 146 mm[Hg] Treatment Wstr Work Phone: [facility] 06-03-2024 09:11-0400 Body mass index (BMI) [Ratio] 27.28 kg/m2 Treatment Wstr Work Phone: [facility] 06-03-2024 09:11-0400 Body temperature 97.9 [degF] Treatment Wstr Work Phone: [facility] 06-03-2024 09:11-0400 Body weight 81.65 kg Treatment Wstr Work Phone: [facility] 06-03-2024 09:11-0400 Diastolic blood pressure 70 mm[Hg] Treatment Wstr Work Phone: [facility] 06-03-2024 09:11-0400 Heart rate 71 /min Treatment Wstr Work Phone: [facility] 06-03-2024 09:11-0400 SaO2% (BldA) [Mass fraction] 97 % Treatment Wstr Work Phone: [facility] 06-03-2024 09:11-0400 Systolic blood pressure 145 mm[Hg] Treatment Wstr Work Phone: [facility] 05-27-2024 10:00-0400 Body mass index (BMI) [Ratio] 26.9 kg/m2 Treatment Wstr Work Phone: [facility] 05-27-2024 10:00-0400 Body temperature 98.4 [degF] Treatment Wstr Work Phone: [facility] 05-27-2024 10:00-0400 Body weight 80.51 kg Treatment Wstr Work Phone: [facility] 05-27-2024 10:00-0400 Diastolic blood pressure 48 mm[Hg] Treatment Wstr Work Phone: [facility] 05-27-2024 10:00-0400 Heart rate 67 /min Treatment Wstr Work Phone: [facility] 05-27-2024 10:00-0400 SaO2% (BldA) [Mass fraction] 99 % Treatment Wstr Work Phone: [facility] 05-27-2024 10:00-0400 Systolic blood pressure 124 mm[Hg] Treatment Wstr Work Phone: [facility] 05-20-2024 10:22-0400 Body mass index (BMI) [Ratio] 27.05 kg/m2 Treatment Wstr Work Phone: [facility] 05-20-2024 10:22-0400 Body temperature 98.4 [degF] Treatment Wstr Work Phone: [facility] 05-20-2024 10:22-0400 Body weight 80.97 kg Treatment Wstr Work Phone: [facility] 05-20-2024 10:22-0400 Diastolic blood pressure 67 mm[Hg] Treatment Wstr Work Phone: [facility] 05-20-2024 10:22-0400 Heart rate 66 /min Treatment Wstr Work Phone: [facility] 05-20-2024 10:22-0400 Respiratory rate 16 /min Treatment Wstr Work Phone: [facility] 05-20-2024 10:22-0400 Systolic blood pressure 137 mm[Hg] Treatment Wstr Work Phone: [facility] 05-12-2024 13:15-0400 Body mass index (BMI) [Ratio] 26.6 kg/m2 Treatment Wstr Work Phone: [facility] 05-12-2024 13:15-0400 Body temperature 97.81 [degF] Treatment Wstr Work Phone: [facility] 05-12-2024 13:15-0400 Body weight 79.61 kg Treatment Wstr Work Phone: [facility] 05-12-2024 13:15-0400 Diastolic blood pressure 59 mm[Hg] Treatment Wstr Work Phone: [facility] 05-12-2024 13:15-0400 Heart rate 71 /min Treatment Wstr Work Phone: [facility] 05-12-2024 13:15-0400 SaO2% (BldA) [Mass fraction] 95 % Treatment Wstr Work Phone: [facility] 05-12-2024 13:15-0400 Systolic blood pressure 129 mm[Hg] Treatment Wstr Work Phone: [facility] 05-06-2024 09:11-0400 Body mass index (BMI) [Ratio] 26.37 kg/m2 Treatment Wstr Work Phone: [facility] 05-06-2024 09:11-0400 Body temperature 97.7 [degF] Treatment Wstr Work Phone: [facility] 05-06-2024 09:11-0400 Body weight 78.93 kg Treatment Wstr Work Phone: [facility] 05-06-2024 09:11-0400 Diastolic blood pressure 62 mm[Hg] Treatment Wstr Work Phone: [facility] 05-06-2024 09:11-0400 Heart rate 67 /min Treatment Wstr Work Phone: [facility] 05-06-2024 09:11-0400 SaO2% (BldA) [Mass fraction] 96 % Treatment Wstr Work Phone: [facility] 05-06-2024 09:11-0400 Systolic blood pressure 116 mm[Hg] Treatment Wstr Work Phone: [facility] 04-29-2024 09:15-0400 Body mass index (BMI) [Ratio] 26.37 kg/m2 Treatment Wstr Work Phone: [facility] 04-29-2024 09:15-0400 Body temperature 97.81 [degF] Treatment Wstr Work Phone: [facility] 04-29-2024 09:15-0400 Body weight 78.93 kg Treatment Wstr Work Phone: [facility] 04-29-2024 09:15-0400 Diastolic blood pressure 68 mm[Hg] Treatment Wstr Work Phone: [facility] 04-29-2024 09:15-0400 Heart rate 69 /min Treatment Wstr Work Phone: [facility] 04-29-2024 09:15-0400 SaO2% (BldA) [Mass fraction] 94 % Treatment Wstr Work Phone: [facility] 04-29-2024 09:15-0400 Systolic blood pressure 131 mm[Hg] Treatment Wstr Work Phone: [facility] 04-15-2024 10:05-0400 Body mass index (BMI) [Ratio] 26.07 kg/m2 Treatment Wstr Work Phone: [facility] 04-15-2024 10:05-0400 Body temperature 98.49 [degF] Treatment Wstr Work Phone: [facility] 04-15-2024 10:05-0400 Body weight 78.02 kg Treatment Wstr Work Phone: [facility] 04-15-2024 10:05-0400 Diastolic blood pressure 60 mm[Hg] Treatment Wstr Work Phone: [facility] 04-15-2024 10:05-0400 Heart rate 70 /min Treatment Wstr Work Phone: [facility] 04-15-2024 10:05-0400 Respiratory rate 16 /min Treatment Wstr Work Phone: [facility] 04-15-2024 10:05-0400 SaO2% (BldA) [Mass fraction] 91 % Treatment Wstr Work Phone: [facility] 04-15-2024 10:05-0400 Systolic blood pressure 132 mm[Hg] Treatment Wstr Work Phone: [facility] 04-08-2024 10:23-0400 Body mass index (BMI) [Ratio] 26.6 kg/m2 Treatment Wstr Work Phone: [facility] 04-08-2024 10:23-0400 Body temperature 97.39 [degF] Treatment Wstr Work Phone: [facility] 04-08-2024 10:23-0400 Body weight 79.61 kg Treatment Wstr Work Phone: [facility] 04-08-2024 10:23-0400 Diastolic blood pressure 73 mm[Hg] Treatment Wstr Work Phone: [facility] 04-08-2024 10:23-0400 Heart rate 71 /min Treatment Wstr Work Phone: [facility] 04-08-2024 10:23-0400 SaO2% (BldA) [Mass fraction] 98 % Treatment Wstr Work Phone: [facility] 04-08-2024 10:23-0400 Systolic blood pressure 149 mm[Hg] Treatment Wstr Work Phone: [facility] 04-01-2024 10:15-0400 Body mass index (BMI) [Ratio] 26.52 kg/m2 Treatment Wstr Work Phone: [facility] 04-01-2024 10:15-0400 Body temperature 98.6 [degF] Treatment Wstr Work Phone: [facility] 04-01-2024 10:15-0400 Body weight 79.38 kg Treatment Wstr Work Phone: [facility] 04-01-2024 10:15-0400 Diastolic blood pressure 64 mm[Hg] Treatment Wstr Work Phone: [facility] 04-01-2024 10:15-0400 Heart rate 71 /min Treatment Wstr Work Phone: [facility] 04-01-2024 10:15-0400 SaO2% (BldA) [Mass fraction] 98 % Treatment Wstr Work Phone: [facility] 04-01-2024 10:15-0400 Systolic blood pressure 126 mm[Hg] Treatment Wstr Work Phone: [facility] 03-25-2024 10:02-0400 Body mass index (BMI) [Ratio] 26.07 kg/m2 Treatment Wstr Work Phone: [facility] 03-25-2024 10:02-0400 Body temperature 97.59 [degF] Treatment Wstr Work Phone: [facility] 03-25-2024 10:02-0400 Body weight 78.02 kg Treatment Wstr Work Phone: [facility] 03-25-2024 10:02-0400 Diastolic blood pressure 59 mm[Hg] Treatment Wstr Work Phone: [facility] 03-25-2024 10:02-0400 Heart rate 74 /min Treatment Wstr Work Phone: [facility] 03-25-2024 10:02-0400 Respiratory rate 16 /min Treatment Wstr Work Phone: [facility] 03-25-2024 10:02-0400 SaO2% (BldA) [Mass fraction] 96 % Treatment Wstr Work Phone: [facility] 03-25-2024 10:02-0400 Systolic blood pressure 124 mm[Hg] Treatment Wstr Work Phone: [facility] 03-22-2024 13:05-0400 Body temperature 96.8 [degF] PA NA Carter PA Work Phone: [facility] 03-22-2024 13:05-0400 Diastolic blood pressure 53 mm[Hg] PA NA Carter PA Work Phone: [facility] 03-22-2024 13:05-0400 Heart rate 64 /min PA NA Carter PA Work Phone: [facility] 03-22-2024 13:05-0400 Respiratory rate 16 /min PA NA Carter PA Work Phone: [facility] 03-22-2024 13:05-0400 SaO2% (BldA) [Mass fraction] 99 % PA NA Carter PA Work Phone: [facility] 03-22-2024 13:05-0400 Systolic blood pressure 133 mm[Hg] PA NA Carter PA Work Phone: [facility] 03-22-2024 07:53-0400 Body height 173.99 cm PA NA Carter PA Work Phone: [facility] 03-22-2024 07:53-0400 Body mass index (BMI) [Ratio] 25.4 kg/m2 PA IRENA Carter PA Work Phone: [facility] 03-22-2024 07:53-0400 Body weight 77.11 kg PA IRENA Carter PA Work Phone: [facility] 03-19-2024 13:33-0400 Body mass index (BMI) [Ratio] 26.37 kg/m2 Treatment Wstr Work Phone: [facility] 03-19-2024 13:33-0400 Body temperature 98.4 [degF] Treatment Wstr Work Phone: [facility] 03-19-2024 13:33-0400 Body weight 78.93 kg Treatment Wstr Work Phone: [facility] 03-19-2024 13:33-0400 Diastolic blood pressure 68 mm[Hg] Treatment Wstr Work Phone: [facility] 03-19-2024 13:33-0400 Heart rate 68 /min Treatment Wstr Work Phone: [facility] 03-19-2024 13:33-0400 Respiratory rate 16 /min Treatment Wstr Work Phone: [facility] 03-19-2024 13:33-0400 SaO2% (BldA) [Mass fraction] 97 % Treatment Wstr Work Phone: [facility] 03-19-2024 13:33-0400 Systolic blood pressure 130 mm[Hg] Treatment Wstr Work Phone: [facility] 03-11-2024 13:35-0400 Body mass index (BMI) [Ratio] 26.52 kg/m2 Treatment Wstr Work Phone: [facility] 03-11-2024 13:35-0400 Body temperature 98.1 [degF] Treatment Wstr Work Phone: [facility] 03-11-2024 13:35-0400 Body weight 79.38 kg Treatment Wstr Work Phone: [facility] 03-11-2024 13:35-0400 Diastolic blood pressure 64 mm[Hg] Treatment Wstr Work Phone: [facility] 03-11-2024 13:35-0400 Heart rate 70 /min Treatment Wstr Work Phone: [facility] 03-11-2024 13:35-0400 SaO2% (BldA) [Mass fraction] 98 % Treatment Wstr Work Phone: [facility] 03-11-2024 13:35-0400 Systolic blood pressure 137 mm[Hg] Treatment Wstr Work Phone: [facility] 03-05-2024 13:16-0400 Body temperature 97.8 [degF] PA NA Carter PA Work Phone: [facility] 03-05-2024 13:16-0400 Diastolic blood pressure 55 mm[Hg] PA NA Carter PA Work Phone: [facility] 03-05-2024 13:16-0400 Heart rate 67 /min PA NA Carter PA Work Phone: [facility] 03-05-2024 13:16-0400 Respiratory rate 16 /min PA NA Carter PA Work Phone: [facility] 03-05-2024 13:16-0400 Systolic blood pressure 146 mm[Hg] PA NA Carter PA Work Phone: [facility] 03-05-2024 12:16-0400 SaO2% (BldA) [Mass fraction] 97 % PA NA Carter PA Work Phone: [facility] 03-05-2024 09:12-0400 Body height 172.72 cm PA NA Carter PA Work Phone: [facility] 03-05-2024 09:12-0400 Body mass index (BMI) [Ratio] 25.8 kg/m2 PA NA Carter PA Work Phone: [facility] 03-05-2024 09:12-0400 Body weight 77.11 kg PA NA Carter PA Work Phone: [facility] 03-04-2024 09:18-0400 Body mass index (BMI) [Ratio] 26.52 kg/m2 Treatment Wstr Work Phone: [facility] 03-04-2024 09:18-0400 Body temperature 97.5 [degF] Treatment Wstr Work Phone: [facility] 03-04-2024 09:18-0400 Body weight 79.38 kg Treatment Wstr Work Phone: [facility] 03-04-2024 09:18-0400 Diastolic blood pressure 65 mm[Hg] Treatment Wstr Work Phone: [facility] 03-04-2024 09:18-0400 Heart rate 78 /min Treatment Wstr Work Phone: [facility] 03-04-2024 09:18-0400 Respiratory rate 18 /min Treatment Wstr Work Phone: [facility] 03-04-2024 09:18-0400 SaO2% (BldA) [Mass fraction] 97 % Treatment Wstr Work Phone: [facility] 03-04-2024 09:18-0400 Systolic blood pressure 137 mm[Hg] Treatment Wstr Work Phone: [facility] 02-26-2024 13:05-0400 Body temperature 97.81 [degF] Treatment Wstr Work Phone: [facility] 02-26-2024 13:05-0400 Body weight 79.61 kg Treatment Wstr Work Phone: [facility] 02-26-2024 13:05-0400 Heart rate 69 /min Treatment Wstr Work Phone: [facility] 02-26-2024 13:05-0400 SaO2% (BldA) [Mass fraction] 98 % Treatment Wstr Work Phone: [facility] 02-20-2024 13:39-0400 Body temperature 97 [degF] MENDEL OGLESBY Work Phone: [facility] 02-20-2024 13:39-0400 Diastolic blood pressure 53 mm[Hg] PA NA Carter PA Work Phone: [facility] 02-20-2024 13:39-0400 Heart rate 67 /min PA NA Carter PA Work Phone: [facility] 02-20-2024 13:39-0400 Respiratory rate 16 /min PA NA Carter PA Work Phone: [facility] 02-20-2024 13:39-0400 SaO2% (BldA) [Mass fraction] 97 % PA NA Carter PA Work Phone: [facility] 02-20-2024 13:39-0400 Systolic blood pressure 152 mm[Hg] PA NA Carter PA Work Phone: [facility] 02-20-2024 08:18-0400 Body height 172.72 cm PA NA Carter PA Work Phone: [facility] 02-20-2024 08:18-0400 Body mass index (BMI) [Ratio] 25.8 kg/m2 PA NA Carter PA Work Phone: [facility] 02-20-2024 08:18-0400 Body weight 77.11 kg PA NA Crater PA Work Phone: [facility] 02-19-2024 13:09-0400 Body temperature 97.81 [degF] Treatment Wstr Work Phone: [facility] 02-19-2024 13:09-0400 Body weight 79.38 kg Treatment Wstr Work Phone: [facility] 02-19-2024 13:09-0400 Diastolic blood pressure 73 mm[Hg] Treatment Wstr Work Phone: [facility] 02-19-2024 13:09-0400 Heart rate 69 /min Treatment Wstr Work Phone: [facility] 02-19-2024 13:09-0400 Respiratory rate 16 /min Treatment Wstr Work Phone: [facility] 02-19-2024 13:09-0400 Systolic blood pressure 130 mm[Hg] Treatment Wstr Work Phone: [facility] 02-12-2024 10:00-0400 Body temperature 97.9 [degF] Treatment Wstr Work Phone: [facility] 02-12-2024 10:00-0400 Body weight 79.83 kg Treatment Wstr Work Phone: [facility] 02-12-2024 10:00-0400 Diastolic blood pressure 70 mm[Hg] Treatment Wstr Work Phone: [facility] 02-12-2024 10:00-0400 Heart rate 71 /min Treatment Wstr Work Phone: [facility] 02-12-2024 10:00-0400 Systolic blood pressure 132 mm[Hg] Treatment Wstr Work Phone: [facility] 01-30-2024 13:57-0400 Body temperature 97.7 [degF] PA NA Carter PA Work Phone: [facility] 01-30-2024 13:57-0400 Diastolic blood pressure 56 mm[Hg] PA NA Carter PA Work Phone: [facility] 01-30-2024 13:57-0400 Heart rate 67 /min PA NA Carter PA Work Phone: [facility] 01-30-2024 13:57-0400 Respiratory rate 16 /min PA NA Carter PA Work Phone: [facility] 01-30-2024 13:57-0400 SaO2% (BldA) [Mass fraction] 96 % PA NA Carter PA Work Phone: [facility] 01-30-2024 13:57-0400 Systolic blood pressure 149 mm[Hg] PA NA Carter PA Work Phone: [facility] 01-30-2024 09:25-0400 Body height 172.72 cm PA NA Carter PA Work Phone: [facility] 01-30-2024 09:25-0400 Body mass index (BMI) [Ratio] 25.8 kg/m2 PA NA Carter PA Work Phone: [facility] 01-30-2024 09:25-0400 Body weight 77.11 kg PA NA Carter PA Work Phone: [facility] 01-29-2024 09:59-0400 Body height 173 cm Steven Pinedai DO Work Phone: [facility] 01-29-2024 09:59-0400 Body temperature 98.29 [degF] Steven Pinedai DO Work Phone: [facility] 01-29-2024 09:59-0400 Body weight 80.06 kg Steven Masci DO Work Phone: [facility] 01-29-2024 09:59-0400 Diastolic blood pressure 88 mm[Hg] Steven Miriami DO Work Phone: [facility] 01-29-2024 09:59-0400 Heart rate 73 /min Steven Miriami DO Work Phone: [facility] 01-29-2024 09:59-0400 SaO2% (BldA) [Mass fraction] 98 % Steven Miriami DO Work Phone: [facility] 01-29-2024 09:59-0400 Systolic blood pressure 130 mm[Hg] Steven Masci DO Work Phone: [facility] 01-15-2024 11:22-0500 Body weight 78.02 kg NA Carter PA-C Work Phone: [facility] 01-15-2024 11:22-0500 Diastolic blood pressure 60 mm[Hg] NA Carter PA-C Work Phone: [facility] 01-15-2024 11:22-0500 Heart rate 72 /min NA Carter PA-C Work Phone: [facility] 01-15-2024 11:22-0500 Respiratory rate 16 /min NA Carter PA-C Work Phone: [facility] 01-15-2024 11:22-0500 SaO2% (BldA) [Mass fraction] 97 % NA Carter PA-C Work Phone: [facility] 01-15-2024 11:22-0500 Systolic blood pressure 130 mm[Hg] NA Carter PA-C Work Phone: [facility] 01-12-2024 10:56-0500 Body mass index (BMI) [Ratio] 26.3 kg/m2 PA NA Carter PA Work Phone: [facility] 01-12-2024 10:56-0500 Body weight 78.47 kg PA NA Carter PA Work Phone: [facility] 01-12-2024 10:56-0500 Diastolic blood pressure 59 mm[Hg] PA NA Carter PA Work Phone: [facility] 01-12-2024 10:56-0500 Heart rate 66 /min PA NA Carter PA Work Phone: [facility] 01-12-2024 10:56-0500 Respiratory rate 18 /min PA NA Carter PA Work Phone: [facility] 01-12-2024 10:56-0500 Systolic blood pressure 115 mm[Hg] PA NA Carter PA Work Phone: [facility] 01-08-2024 10:33-0500 Body temperature 98.29 [degF] Injection Wstr Work Phone: [facility] 01-08-2024 10:33-0500 Body weight 78.47 kg Injection Wstr Work Phone: [facility] 01-08-2024 10:33-0500 Diastolic blood pressure 76 mm[Hg] Injection Wstr Work Phone: [facility] 01-08-2024 10:33-0500 Heart rate 71 /min Injection Wstr Work Phone: [facility] 01-08-2024 10:33-0500 Respiratory rate 12 /min Injection Wstr Work Phone: [facility] 01-08-2024 10:33-0500 SaO2% (BldA) [Mass fraction] 96 % Injection Wstr Work Phone: [facility] 01-08-2024 10:33-0500 Systolic blood pressure 152 mm[Hg] Injection Wstr Work Phone: [facility] 01-02-2024 13:43-0500 Body temperature 97.2 [degF] [facility] 01-02-2024 13:43-0500 Diastolic blood pressure 67 mm[Hg] [facility] 01-02-2024 13:43-0500 Heart rate 57 /min [facility] 01-02-2024 13:43-0500 Respiratory rate 16 /min [facility] 01-02-2024 13:43-0500 SaO2% (BldA) [Mass fraction] 95 % [facility] 01-02-2024 13:43-0500 Systolic blood pressure 142 mm[Hg] [facility] 01-02-2024 08:50-0500 Body height 172.72 cm [facility] 12-12-2023 12:39-0500 Body temperature 98.6 [degF] [facility] 12-12-2023 12:39-0500 Diastolic blood pressure 57 mm[Hg] [facility] 12-12-2023 12:39-0500 Heart rate 62 /min [facility] 12-12-2023 12:39-0500 Respiratory rate 16 /min [facility] 12-12-2023 12:39-0500 SaO2% (BldA) [Mass fraction] 98 % [facility] 12-12-2023 12:39-0500 Systolic blood pressure 141 mm[Hg] [facility] 12-12-2023 10:41-0500 Body height 172.72 cm [facility] 12-12-2023 10:41-0500 Body mass index (BMI) [Ratio] 25.8 kg/m2 [facility] 12-12-2023 10:41-0500 Body weight 77.11 kg [facility] 11-28-2023 13:59-0500 Body temperature 97.8 [degF] [facility] 11-28-2023 13:59-0500 Diastolic blood pressure 51 mm[Hg] [facility] 11-28-2023 13:59-0500 Heart rate 65 /min [facility] 11-28-2023 13:59-0500 Respiratory rate 16 /min [facility] 11-28-2023 13:59-0500 SaO2% (BldA) [Mass fraction] 97 % [facility] 11-28-2023 13:59-0500 Systolic blood pressure 133 mm[Hg] [facility] 11-28-2023 11:20-0500 Body height 172.72 cm [facility] 11-28-2023 11:20-0500 Body mass index (BMI) [Ratio] 26.4 kg/m2 [facility] 11-28-2023 11:20-0500 Body weight 78.92 kg [facility] 11-14-2023 13:54-0500 Body temperature 97.7 [degF] [facility] 11-14-2023 13:54-0500 Diastolic blood pressure 49 mm[Hg] [facility] 11-14-2023 13:54-0500 Heart rate 68 /min [facility] 11-14-2023 13:54-0500 Respiratory rate 16 /min [facility] 11-14-2023 13:54-0500 Systolic blood pressure 121 mm[Hg] [facility] 11-14-2023 13:10-0500 SaO2% (BldA) [Mass fraction] 98 % [facility] 11-14-2023 11:17-0500 Body height 172.72 cm [facility] 10-17-2023 12:55-0500 Body temperature 98.1 [degF] [facility] 10-17-2023 12:55-0500 Diastolic blood pressure 69 mm[Hg] [facility] 10-17-2023 12:55-0500 Heart rate 63 /min [facility] 10-17-2023 12:55-0500 Respiratory rate 16 /min [facility] 10-17-2023 12:55-0500 SaO2% (BldA) [Mass fraction] 99 % [facility] 10-17-2023 12:55-0500 Systolic blood pressure 154 mm[Hg] [facility] 10-17-2023 08:38-0500 Body mass index (BMI) [Ratio] 25.8 kg/m2 [facility] 10-17-2023 08:38-0500 Body weight 77.11 kg [facility] 09-25-2023 10:58-0500 Body temperature 98.01 [degF] Injection Wstr Work Phone: [facility] 09-25-2023 10:58-0500 Body weight 76.66 kg Injection Wstr Work Phone: [facility] 09-25-2023 10:58-0500 Diastolic blood pressure 73 mm[Hg] Injection Wstr Work Phone: [facility] 09-25-2023 10:58-0500 Heart rate 62 /min Injection Wstr Work Phone: [facility] 09-25-2023 10:58-0500 Systolic blood pressure 149 mm[Hg] Injection Wstr Work Phone: [facility] 09-19-2023 14:06-0500 Body temperature 98.2 [degF] [facility] 09-19-2023 14:06-0500 Diastolic blood pressure 54 mm[Hg] [facility] 09-19-2023 14:06-0500 Heart rate 65 /min [facility] 09-19-2023 14:06-0500 Respiratory rate 16 /min [facility] 09-19-2023 14:06-0500 SaO2% (BldA) [Mass fraction] 97 % [facility] 09-19-2023 14:06-0500 Systolic blood pressure 136 mm[Hg] [facility] 09-19-2023 11:37-0500 Body height 172.72 cm [facility] 09-19-2023 11:37-0500 Body mass index (BMI) [Ratio] 25.8 kg/m2 [facility] 09-19-2023 11:37-0500 Body weight 77.11 kg [facility] 09-04-2023 11:34-0400 Body temperature 98.01 [degF] Injection Wstr Work Phone: [facility] 09-04-2023 11:34-0400 Body weight 78.02 kg Injection Wstr Work Phone: [facility] 09-04-2023 11:34-0400 Diastolic blood pressure 69 mm[Hg] Injection Wstr Work Phone: [facility] 09-04-2023 11:34-0400 Heart rate 71 /min Injection Wstr Work Phone: [facility] 09-04-2023 11:34-0400 Systolic blood pressure 151 mm[Hg] Injection Wstr Work Phone: [facility] 08-22-2023 13:57-0400 Body temperature 97.8 [degF] [facility] 08-22-2023 13:57-0400 Diastolic blood pressure 58 mm[Hg] [facility] 08-22-2023 13:57-0400 Heart rate 62 /min [facility] 08-22-2023 13:57-0400 Respiratory rate 16 /min [facility] 08-22-2023 13:57-0400 Systolic blood pressure 127 mm[Hg] [facility] 08-22-2023 13:18-0400 SaO2% (BldA) [Mass fraction] 99 % [facility] 08-22-2023 11:34-0400 Body mass index (BMI) [Ratio] 25.8 kg/m2 [facility] 08-22-2023 11:34-0400 Body weight 77.11 kg [facility] 08-14-2023 11:37-0400 Body temperature 97.9 [degF] Injection Wstr Work Phone: [facility] 08-14-2023 11:37-0400 Body weight 79.38 kg Injection Wstr Work Phone: [facility] 08-14-2023 11:37-0400 Diastolic blood pressure 79 mm[Hg] Injection Wstr Work Phone: [facility] 08-14-2023 11:37-0400 Heart rate 72 /min Injection Wstr Work Phone: [facility] 08-14-2023 11:37-0400 Systolic blood pressure 139 mm[Hg] Injection Wstr Work Phone: [facility] 08-08-2023 13:14-0400 Body temperature 97.5 [degF] [facility] 08-08-2023 13:14-0400 Diastolic blood pressure 52 mm[Hg] [facility] 08-08-2023 13:14-0400 Heart rate 62 /min [facility] 08-08-2023 13:14-0400 Respiratory rate 16 /min [facility] 08-08-2023 13:14-0400 Systolic blood pressure 130 mm[Hg] [facility] 08-08-2023 11:38-0400 SaO2% (BldA) [Mass fraction] 99 % [facility] 07-04-2023 14:30-0400 Body temperature 97.6 [degF] PA NA Carter PA Work Phone: [facility] 07-04-2023 14:30-0400 Diastolic blood pressure 62 mm[Hg] PA NA Carter PA Work Phone: [facility] 07-04-2023 14:30-0400 Heart rate 64 /min PA NA Carter PA Work Phone: [facility] 07-04-2023 14:30-0400 Respiratory rate 16 /min PA NA Carter PA Work Phone: [facility] 07-04-2023 14:30-0400 SaO2% (BldA) [Mass fraction] 94 % PA NA Carter PA Work Phone: [facility] 07-04-2023 14:30-0400 Systolic blood pressure 137 mm[Hg] PA NA Carter PA Work Phone: [facility] 07-04-2023 11:39-0400 Body height 172.72 cm PA NA Carter PA Work Phone: [facility] 07-04-2023 11:39-0400 Body mass index (BMI) [Ratio] 26.3 kg/m2 PA NA Carter PA Work Phone: [facility] 07-04-2023 11:39-0400 Body weight 78.47 kg PA NA Carter PA Work Phone: [facility] 07-03-2023 10:28-0400 Body weight 78.47 kg NA Carter PA-C Work Phone: [facility] 07-03-2023 10:28-0400 Diastolic blood pressure 70 mm[Hg] NA Carter PA-C Work Phone: [facility] 07-03-2023 10:28-0400 Heart rate 65 /min NA Carter PA-C Work Phone: [facility] 07-03-2023 10:28-0400 Respiratory rate 16 /min NA Carter PA-C Work Phone: [facility] 07-03-2023 10:28-0400 SaO2% (BldA) [Mass fraction] 96 % NA Carter PA-C Work Phone: [facility] 07-03-2023 10:28-0400 Systolic blood pressure 148 mm[Hg] NA Carter PA-C Work Phone: [facility] 07-03-2023 08:42-0400 Body temperature 98.2 [degF] Steven Masci DO Work Phone: [facility] 07-03-2023 08:42-0400 Body weight 78.7 kg Steven Masci DO Work Phone: [facility] 07-03-2023 08:42-0400 Diastolic blood pressure 73 mm[Hg] Steven Masci DO Work Phone: [facility] 07-03-2023 08:42-0400 Heart rate 67 /min Steven Masci DO Work Phone: [facility] 07-03-2023 08:42-0400 SaO2% (BldA) [Mass fraction] 98 % Steven Masci DO Work Phone: [facility] 07-03-2023 08:42-0400 Systolic blood pressure 148 mm[Hg] Steven Akers DO Work Phone: [facility] 06-20-2023 13:15-0400 Diastolic blood pressure 58 mm[Hg] PA NA Carter PA Work Phone: [facility] 06-20-2023 13:15-0400 Heart rate 60 /min PA NA Carter PA Work Phone: [facility] 06-20-2023 13:15-0400 Respiratory rate 16 /min PA NA Carter PA Work Phone: [facility] 06-20-2023 13:15-0400 SaO2% (BldA) [Mass fraction] 97 % PA NA Carter PA Work Phone: [facility] 06-20-2023 13:15-0400 Systolic blood pressure 135 mm[Hg] PA NA Carter PA Work Phone: [facility] 06-20-2023 12:24-0400 Body temperature 97.4 [degF] PA NA Carter PA Work Phone: [facility] 06-20-2023 10:50-0400 Body height 172.72 cm PA NA Carter PA Work Phone: [facility] 06-19-2023 18:41-0400 Diastolic blood pressure 74 mm[Hg] PA NA Carter PA Work Phone: [facility] 06-19-2023 18:41-0400 Heart rate 79 /min PA NA Carter PA Work Phone: [facility] 06-19-2023 18:41-0400 Respiratory rate 18 /min PA NA Carter PA Work Phone: [facility] 06-19-2023 18:41-0400 SaO2% (BldA) [Mass fraction] 99 % PA NA Carter PA Work Phone: [facility] 06-19-2023 18:41-0400 Systolic blood pressure 137 mm[Hg] PA NA Carter PA Work Phone: [facility] 06-19-2023 16:21-0400 Body mass index (BMI) [Ratio] 26.5 kg/m2 PA NA Carter PA Work Phone: [facility] 06-19-2023 16:21-0400 Body temperature 98 [degF] PA NA Carter PA Work Phone: [facility] 06-19-2023 16:21-0400 Body weight 79.12 kg PA NA Carter PA Work Phone: [facility] 06-12-2023 09:02-0400 Body height 174 cm Steven Masci DO Work Phone: [facility] 06-12-2023 09:02-0400 Body temperature 98.01 [degF] Steven Masci DO Work Phone: [facility] 06-12-2023 09:02-0400 Body weight 78.7 kg Steven Masci DO Work Phone: [facility] 06-12-2023 09:02-0400 Diastolic blood pressure 68 mm[Hg] Steven Masci DO Work Phone: [facility] 06-12-2023 09:02-0400 Heart rate 74 /min Steven Masci DO Work Phone: [facility] 06-12-2023 09:02-0400 Respiratory rate 12 /min Steven Masci DO Work Phone: [facility] 06-12-2023 09:02-0400 SaO2% (BldA) [Mass fraction] 98 % Steven Masci DO Work Phone: [facility] 06-12-2023 09:02-0400 Systolic blood pressure 126 mm[Hg] Steven Masci DO Work Phone: [facility] 06-06-2023 13:00-0400 Body temperature 97.6 [degF] PA NA Carter PA Work Phone: [facility] 06-06-2023 13:00-0400 Diastolic blood pressure 51 mm[Hg] PA NA Carter PA Work Phone: [facility] 06-06-2023 13:00-0400 Heart rate 62 /min PA NA Carter PA Work Phone: [facility] 06-06-2023 13:00-0400 Respiratory rate 14 /min PA NA Carter PA Work Phone: [facility] 06-06-2023 13:00-0400 SaO2% (BldA) [Mass fraction] 99 % PA NA Carter PA Work Phone: [facility] 06-06-2023 13:00-0400 Systolic blood pressure 130 mm[Hg] PA NA Carter PA Work Phone: [facility] 06-06-2023 11:14-0400 Body height 177.8 cm PA NA Carter PA Work Phone: [facility] 06-06-2023 11:14-0400 Body mass index (BMI) [Ratio] 24.3 kg/m2 PA NA Carter PA Work Phone: [facility] 06-06-2023 11:14-0400 Body weight 77.11 kg PA NA Carter PA Work Phone: [facility] 05-22-2023 09:35-0400 Body temperature 97.59 [degF] Steven Masci DO Work Phone: [facility] 05-22-2023 09:35-0400 Body weight 79.83 kg Steven Masci DO Work Phone: [facility] 05-22-2023 09:35-0400 Diastolic blood pressure 75 mm[Hg] Steven Masci DO Work Phone: [facility] 05-22-2023 09:35-0400 Heart rate 104 /min Steven Masci DO Work Phone: [facility] 05-22-2023 09:35-0400 Systolic blood pressure 151 mm[Hg] Steven Masci DO Work Phone: [facility] 05-02-2023 13:38-0400 Body temperature 96.7 [degF] PA NA Carter PA Work Phone: [facility] 05-02-2023 13:38-0400 Diastolic blood pressure 53 mm[Hg] PA NA Carter PA Work Phone: [facility] 05-02-2023 13:38-0400 Heart rate 60 /min PA NA Carter PA Work Phone: [facility] 05-02-2023 13:38-0400 Respiratory rate 12 /min PA NA Carter PA Work Phone: [facility] 05-02-2023 13:38-0400 SaO2% (BldA) [Mass fraction] 99 % PA NA Carter PA Work Phone: [facility] 05-02-2023 13:38-0400 Systolic blood pressure 143 mm[Hg] PA NA Carter PA Work Phone: [facility] 05-02-2023 11:06-0400 Body height 177.8 cm PA NA Carter PA Work Phone: [facility] 05-02-2023 11:06-0400 Body mass index (BMI) [Ratio] 24.3 kg/m2 PA NA Carter PA Work Phone: [facility] 05-02-2023 11:06-0400 Body weight 77.11 kg PA NA Carter PA Work Phone: [facility] 05-01-2023 08:51-0400 Body temperature 97.81 [degF] Sisi Blanchard DELPHI PROGRAMMER.FACTORY REPRESENTATIVE Work Phone: [facility] 05-01-2023 08:51-0400 Body weight 79.38 kg Sisi Blanchard DELPHI PROGRAMMER.FACTORY REPRESENTATIVE Work Phone: [facility] 05-01-2023 08:51-0400 Diastolic blood pressure 62 mm[Hg] Sisi Blanchard DELPHI PROGRAMMER.FACTORY REPRESENTATIVE Work Phone: [facility] 05-01-2023 08:51-0400 Heart rate 66 /min Sisi Blanchard DELPHI PROGRAMMER.FACTORY REPRESENTATIVE Work Phone: [facility] 05-01-2023 08:51-0400 SaO2% (BldA) [Mass fraction] 95 % Sisi Blanchard DELPHI PROGRAMMER.FACTORY REPRESENTATIVE Work Phone: [facility] 05-01-2023 08:51-0400 Systolic blood pressure 141 mm[Hg] Sisi Blanchard DELPHI PROGRAMMER.FACTORY REPRESENTATIVE Work Phone: [facility] 04-18-2023 09:39-0400 Body mass index (BMI) [Ratio] 25.1 kg/m2 PA NA Carter PA Work Phone: [facility] 04-18-2023 09:39-0400 Body weight 79.37 kg PA NA Carter PA Work Phone: [facility] 04-18-2023 09:39-0400 Diastolic blood pressure 72 mm[Hg] PA NA Carter PA Work Phone: [facility] 04-18-2023 09:39-0400 Heart rate 65 /min PA NA Carter PA Work Phone: [facility] 04-18-2023 09:39-0400 Respiratory rate 16 /min PA NA Carter PA Work Phone: [facility] 04-18-2023 09:39-0400 Systolic blood pressure 145 mm[Hg] PA NA Carter PA Work Phone: [facility] 04-10-2023 09:06-0400 Body temperature 97.81 [degF] Sisi Blanchard DELPHI PROGRAMMER.FACTORY REPRESENTATIVE Work Phone: [facility] 04-10-2023 09:06-0400 Body weight 79.15 kg Sisi Blanchard DELPHI PROGRAMMER.FACTORY REPRESENTATIVE Work Phone: [facility] 04-10-2023 09:06-0400 Diastolic blood pressure 62 mm[Hg] Sisi Blanchard DELPHI PROGRAMMER.FACTORY REPRESENTATIVE Work Phone: [facility] 04-10-2023 09:06-0400 Heart rate 70 /min Sisi Brodyenter DELPHI PROGRAMMER.FACTORY REPRESENTATIVE Work Phone: [facility] 04-10-2023 09:06-0400 Systolic blood pressure 130 mm[Hg] Sisi Blanchard APRN.FACTORY REPRESENTATIVE Work Phone: [facility] 04-04-2023 11:18-0400 Body temperature 97.9 [degF] PA NA Carter PA Work Phone: [facility] 04-04-2023 11:18-0400 Diastolic blood pressure 64 mm[Hg] PA NA Carter PA Work Phone: [facility] 04-04-2023 11:18-0400 Heart rate 54 /min PA NA Carter PA Work Phone: [facility] 04-04-2023 11:18-0400 Respiratory rate 16 /min PA NA Carter PA Work Phone: [facility] 04-04-2023 11:18-0400 SaO2% (BldA) [Mass fraction] 99 % PA NA Carter PA Work Phone: [facility] 04-04-2023 11:18-0400 Systolic blood pressure 142 mm[Hg] PA NA Carter PA Work Phone: [facility] 03-21-2023 13:40-0400 Body temperature 97.5 [degF] PA NA Carter PA Work Phone: [facility] 03-21-2023 13:40-0400 Diastolic blood pressure 55 mm[Hg] PA NA Carter PA Work Phone: [facility] 03-21-2023 13:40-0400 Heart rate 63 /min PA NA Carter PA Work Phone: [facility] 03-21-2023 13:40-0400 Respiratory rate 16 /min PA NA Carter PA Work Phone: [facility] 03-21-2023 13:40-0400 SaO2% (BldA) [Mass fraction] 97 % PA NA Carter PA Work Phone: [facility] 03-21-2023 13:40-0400 Systolic blood pressure 131 mm[Hg] PA NA Carter PA Work Phone: [facility] 03-21-2023 11:23-0400 Body height 177.8 cm PA NA Carter PA Work Phone: 1(366)746-614656 [place] [address] 03-07-2023 18:56-0400 Diastolic blood pressure 71 mm[Hg] PA NA Carter PA Work Phone: 5(231)904-238656 [place] [address] 03-07-2023 18:56-0400 Heart rate 76 /min PA NA Carter PA Work Phone: 3(628)195-520356 [place] [address] 03-07-2023 18:56-0400 Respiratory rate 14 /min PA NA Carter PA Work Phone: 5(521)689-032056 [place] [address] 03-07-2023 18:56-0400 SaO2% (BldA) [Mass fraction] 99 % PA NA Carter PA Work Phone: 7(860)707-056356 [place] [address] 03-07-2023 18:56-0400 Systolic blood pressure 143 mm[Hg] PA NA Carter PA Work Phone: 5(346)894-829256 [place] [address] 03-07-2023 15:58-0400 Body height 177.8 cm PA NA Carter PA Work Phone: 1(725)888-736304 [place] [address] 03-07-2023 15:58-0400 Body mass index (BMI) [Ratio] 25.1 kg/m2 PA NA Carter PA Work Phone: 9(439)853-980504 [place] [address] 03-07-2023 15:58-0400 Body temperature 97.2 [degF] PA NA Carter PA Work Phone: 6(275)696-231556 [place] [address] 03-07-2023 15:58-0400 Body weight 79.37 kg PA NA Carter PA Work Phone: 0(252)635-270756 [place] [address] 03-07-2023 15:16-0400 Diastolic blood pressure 64 mm[Hg] PA NA Carter PA Work Phone: 6(916)394-944156 [place] [address] 03-07-2023 15:16-0400 Respiratory rate 16 /min PA NA Carter PA Work Phone: [facility] 03-07-2023 15:16-0400 Systolic blood pressure 137 mm[Hg] PA NA Carter PA Work Phone: [facility] 03-07-2023 14:24-0400 Body temperature 97.2 [degF] PA NA Carter PA Work Phone: [facility] 03-07-2023 14:24-0400 Heart rate 64 /min PA NA Carter PA Work Phone: [facility] 03-07-2023 13:24-0400 SaO2% (BldA) [Mass fraction] 99 % PA NA Carter PA Work Phone: [facility] 02-27-2023 10:01-0400 Body height 174 cm Sisi Blanchard DELPHI PROGRAMMER.FACTORY REPRESENTATIVE Work Phone: [facility] 02-27-2023 10:01-0400 Body temperature 98.2 [degF] Sisi Blanchard DELPHI PROGRAMMER.FACTORY REPRESENTATIVE Work Phone: [facility] 02-27-2023 10:01-0400 Body weight 78.47 kg Sisi Blanchard DELPHI PROGRAMMER.FACTORY REPRESENTATIVE Work Phone: [facility] 02-27-2023 10:01-0400 Diastolic blood pressure 64 mm[Hg] Sisi Blanchard DELPHI PROGRAMMER.FACTORY REPRESENTATIVE Work Phone: [facility] 02-27-2023 10:01-0400 Heart rate 71 /min Sisi Blanchard DELPHI PROGRAMMER.FACTORY REPRESENTATIVE Work Phone: [facility] 02-27-2023 10:01-0400 SaO2% (BldA) [Mass fraction] 99 % Sisi Blanchard DELPHI PROGRAMMER.FACTORY REPRESENTATIVE Work Phone: [facility] 02-27-2023 10:01-0400 Systolic blood pressure 139 mm[Hg] Sisi Blanchard DELPHI PROGRAMMER.FACTORY REPRESENTATIVE Work Phone: [facility] 02-17-2023 13:06-0400 Body mass index (BMI) [Ratio] 24.8 kg/m2 PA NA Carter PA Work Phone: [facility] 02-17-2023 13:06-0400 Body weight 78.47 kg PA NA Carter PA Work Phone: [facility] 02-17-2023 13:06-0400 Diastolic blood pressure 74 mm[Hg] PA NA Carter PA Work Phone: [facility] 02-17-2023 13:06-0400 Heart rate 72 /min PA NA Carter PA Work Phone: [facility] 02-17-2023 13:06-0400 Respiratory rate 18 /min PA NA Carter PA Work Phone: [facility] 02-17-2023 13:06-0400 SaO2% (BldA) [Mass fraction] 98 % PA NA Carter PA Work Phone: [facility] 02-17-2023 13:06-0400 Systolic blood pressure 139 mm[Hg] PA NA Carter PA Work Phone: [facility] 02-13-2023 12:10-0400 Diastolic blood pressure 61 mm[Hg] Steven Masci DO Work Phone: [facility] 02-13-2023 12:10-0400 Heart rate 66 /min Steven Masci DO Work Phone: [facility] 02-13-2023 12:10-0400 Systolic blood pressure 126 mm[Hg] Steven Masci DO Work Phone: [facility] 02-06-2023 10:130400 Body temperature 98.1 [degF] Injection Wstr Work Phone: [facility] 02-06-2023 10:130400 Body weight 78.93 kg Injection Wstr Work Phone: [facility] 02-06-2023 10:13-0400 Diastolic blood pressure 57 mm[Hg] Injection Wstr Work Phone: [facility] 02-06-2023 10:13-0400 Heart rate 66 /min Injection Wstr Work Phone: [facility] 02-06-2023 10:13-0400 Systolic blood pressure 148 mm[Hg] Injection Wstr Work Phone: [facility] 01-27-2023 16:04-0400 Body temperature 98.1 [degF] PA NA Carter PA Work Phone: [facility] 01-27-2023 16:04-0400 Diastolic blood pressure 51 mm[Hg] PA NA Carter PA Work Phone: [facility] 01-27-2023 16:04-0400 Heart rate 66 /min PA NA Carter PA Work Phone: [facility] 01-27-2023 16:04-0400 Respiratory rate 14 /min PA NA Carter PA Work Phone: [facility] 01-27-2023 16:04-0400 SaO2% (BldA) [Mass fraction] 96 % PA NA Carter PA Work Phone: [facility] 01-27-2023 16:04-0400 Systolic blood pressure 130 mm[Hg] PA NA Carter PA Work Phone: [facility] 01-27-2023 13:17-0400 Body height 177.8 cm PA NA Carter PA Work Phone: [facility] 01-27-2023 13:17-0400 Body mass index (BMI) [Ratio] 24.8 kg/m2 PA NA Carter PA Work Phone: [facility] 01-27-2023 13:17-0400 Body weight 78.47 kg PA NA Carter PA Work Phone: [facility] 01-24-2023 15:42-0400 Body temperature 97.7 [degF] Steven Akers DO Work Phone: [facility] 01-24-2023 15:42-0400 Body weight 79.38 kg Steven Akers DO Work Phone: [facility] 01-24-2023 15:42-0400 Diastolic blood pressure 53 mm[Hg] Steven Akers DO Work Phone: [facility] 01-24-2023 15:42-0400 Heart rate 68 /min Steven Masci DO Work Phone: [facility] 01-24-2023 15:42-0400 Systolic blood pressure 127 mm[Hg] Steven Masci DO Work Phone: [facility] 01-09-2023 12:39-0500 Body temperature 97 [degF] PA NA Carter PA Work Phone: [facility] 01-09-2023 12:39-0500 Diastolic blood pressure 67 mm[Hg] PA NA Carter PA Work Phone: [facility] 01-09-2023 12:39-0500 Heart rate 65 /min PA NA Carter PA Work Phone: [facility] 01-09-2023 12:39-0500 Respiratory rate 16 /min PA NA Carter PA Work Phone: [facility] 01-09-2023 12:39-0500 SaO2% (BldA) [Mass fraction] 98 % PA NA Carter PA Work Phone: [facility] 01-09-2023 12:39-0500 Systolic blood pressure 148 mm[Hg] PA NA Carter PA Work Phone: [facility] 01-09-2023 10:30-0500 Body mass index (BMI) [Ratio] 24.7 kg/m2 PA NA Carter PA Work Phone: [facility] 01-09-2023 10:30-0500 Body weight 78.01 kg PA NA Carter PA Work Phone: [facility] 01-08-2023 13:59-0500 Diastolic blood pressure 55 mm[Hg] Steven Masci DO Work Phone: [facility] 01-08-2023 13:59-0500 Heart rate 69 /min Steven Masci DO Work Phone: [facility] 01-08-2023 13:59-0500 Systolic blood pressure 135 mm[Hg] Steven Masci DO Work Phone: [facility] 12-19-2022 14:17-0500 Body temperature 98.1 [degF] PA NA Carter PA Work Phone: [facility] 12-19-2022 14:17-0500 Diastolic blood pressure 50 mm[Hg] PA NA Carter PA Work Phone: [facility] 12-19-2022 14:17-0500 Heart rate 65 /min PA NA Carter PA Work Phone: [facility] 12-19-2022 14:17-0500 Respiratory rate 16 /min PA NA Carter PA Work Phone: [facility] 12-19-2022 14:17-0500 SaO2% (BldA) [Mass fraction] 97 % PA NA Carter PA Work Phone: [facility] 12-19-2022 14:17-0500 Systolic blood pressure 131 mm[Hg] PA NA Carter PA Work Phone: [facility] 12-18-2022 15:55-0500 Body temperature 98.91 [degF] Steven Masci DO Work Phone: [facility] 12-18-2022 15:55-0500 Body weight 80.51 kg Steven Masci DO Work Phone: [facility] 12-18-2022 15:55-0500 Diastolic blood pressure 58 mm[Hg] Steven Masci DO Work Phone: [facility] 12-18-2022 15:55-0500 Heart rate 71 /min Steven Masci DO Work Phone: [facility] 12-18-2022 15:55-0500 SaO2% (BldA) [Mass fraction] 98 % Steven Masci DO Work Phone: [facility] 12-18-2022 15:55-0500 Systolic blood pressure 138 mm[Hg] Steven Masci DO Work Phone: [facility] 11-26-2022 11:40-0500 Body height 175.5 cm Steven Pinedai DO Work Phone: [facility] 11-26-2022 11:40-0500 Body temperature 98.1 [degF] Steven Pinedai DO Work Phone: [facility] 11-26-2022 11:40-0500 Body weight 82.1 kg Steven Pinedai DO Work Phone: [facility] 11-26-2022 11:40-0500 Diastolic blood pressure 55 mm[Hg] Steven Pinedai DO Work Phone: [facility] 11-26-2022 11:40-0500 Heart rate 72 /min Steven Pinedai DO Work Phone: [facility] 11-26-2022 11:40-0500 SaO2% (BldA) [Mass fraction] 95 % Steven Pinedai DO Work Phone: [facility] 11-26-2022 11:40-0500 Systolic blood pressure 139 mm[Hg] Steven Pinedai DO Work Phone: [facility] 11-13-2022 15:03-0500 Body temperature 97.6 [degF] PA NA Carter PA Work Phone: [facility] 11-13-2022 15:03-0500 Diastolic blood pressure 53 mm[Hg] PA NA Carter PA Work Phone: [facility] 11-13-2022 15:03-0500 Heart rate 62 /min PA NA Carter PA Work Phone: [facility] 11-13-2022 15:03-0500 Respiratory rate 16 /min PA NA Carter PA Work Phone: [facility] 11-13-2022 15:03-0500 Systolic blood pressure 138 mm[Hg] PA NA Carter PA Work Phone: [facility] 11-13-2022 13:09-0500 Body mass index (BMI) [Ratio] 24.3 kg/m2 PA NA Carter PA Work Phone: [facility] 01-04-2023 13:09-0500 Body weight 77.11 kg PA NA Carter PA Work Phone: 3(824)731-523656 [place] [address] 11-13-2022 13:09-0500 SaO2% (BldA) [Mass fraction] 95 % PA NA Carter PA Work Phone: 7(730)938-159156 [place] [address] 11-13-2022 08:15-0500 Body mass index (BMI) [Ratio] 26.6 kg/m2 PA NA Carter PA Work Phone: 7(455)675-900404 [place] [address] 11-13-2022 08:15-0500 Body temperature 98.2 [degF] PA NA Carter PA Work Phone: 1(600)423-181604 [place] [address] 11-13-2022 08:15-0500 Body weight 84.42 kg PA NA Carter PA Work Phone: 1(050)656-795304 [place] [address] 11-13-2022 08:15-0500 Diastolic blood pressure 71 mm[Hg] PA NA Carter PA Work Phone: 2(087)619-294304 [place] [address] 11-13-2022 08:15-0500 Heart rate 79 /min PA NA Carter PA Work Phone: 4(982)413-416704 [place] [address] 11-13-2022 08:15-0500 Respiratory rate 16 /min PA NA Carter PA Work Phone: 4(680)486-553204 [place] [address] 11-13-2022 08:15-0500 SaO2% (BldA) [Mass fraction] 98 % PA NA Carter PA Work Phone: 7(990)282-302656 [place] [address] 11-13-2022 08:15-0500 Systolic blood pressure 162 mm[Hg] PA NA Carter PA Work Phone: 8(020)367-739504 [place] [address] 10-10-2022 11:27-0500 Body mass index (BMI) [Ratio] 24.8 kg/m2 PA NA Carter PA Work Phone: 0(084)056-031904 [place] [address] 10-10-2022 11:27-0500 Body temperature 97.6 [degF] PA NA Carter PA Work Phone: 7(541)857-927356 [place] [address] 10-10-2022 11:27-0500 Body weight 78.64 kg PA NA Carter PA Work Phone: [facility] 10-10-2022 11:27-0500 Diastolic blood pressure 67 mm[Hg] PA NA Carter PA Work Phone: [facility] 10-10-2022 11:27-0500 Heart rate 67 /min PA NA Carter PA Work Phone: [facility] 10-10-2022 11:27-0500 Respiratory rate 16 /min PA NA Carter PA Work Phone: [facility] 10-10-2022 11:27-0500 SaO2% (BldA) [Mass fraction] 67 % PA NA Carter PA Work Phone: [facility] 10-10-2022 11:27-0500 Systolic blood pressure 132 mm[Hg] PA NA Carter PA Work Phone: [facility] 05-14-2022 16:25-0400 Body temperature 98.5 [degF] PA NA Carter PA Work Phone: [facility] Work Phone: 05-14-2022 16:25-0400 Diastolic blood pressure 43 mm[Hg] PA NA Carter PA Work Phone: [facility] Work Phone: 05-14-2022 16:25-0400 Heart rate 71 /min PA NA Carter PA Work Phone: [facility] Work Phone: 05-14-2022 16:25-0400 Respiratory rate 18 /min PA NA Carter PA Work Phone: [facility] Work Phone: 05-14-2022 16:25-0400 Systolic blood pressure 121 mm[Hg] PA NA Carter PA Work Phone: [facility] Work Phone: 05-14-2022 14:37-0400 SaO2% (BldA) [Mass fraction] 97 % PA NA Carter PA Work Phone: [facility] Work Phone: 05-14-2022 11:14-0400 Body height 177.8 cm PA NA Carter PA Work Phone: [facility] Work Phone: 05-14-2022 11:14-0400 Body weight 82.2 kg PA NA Carter PA Work Phone: [facility] Work Phone: 05-09-2022 22:50-0400 Body mass index (BMI) [Ratio] 24.4 kg/m2 PA NA Carter PA Work Phone: [facility] Work Phone: 05-09-2022 22:08-0400 Body temperature 98.9 [degF] PA NA Carter PA Work Phone: [facility] Work Phone: 05-09-2022 22:08-0400 Diastolic blood pressure 61 mm[Hg] PA NA Carter PA Work Phone: [facility] Work Phone: 05-09-2022 22:08-0400 Heart rate 84 /min PA NA Carter PA Work Phone: [facility] Work Phone: 05-09-2022 22:08-0400 Respiratory rate 18 /min PA NA Carter PA Work Phone: [facility] Work Phone: 05-09-2022 22:08-0400 SaO2% (BldA) [Mass fraction] 99 % PA NA Carter PA Work Phone: [facility] Work Phone: 05-09-2022 22:08-0400 Systolic blood pressure 159 mm[Hg] PA NA Carter PA Work Phone: [facility] Work Phone: 05-09-2022 17:19-0400 Body height 177.8 cm PA NA Carter PA Work Phone: [facility] Work Phone: 05-09-2022 17:19-0400 Body mass index (BMI) [Ratio] 25.1 kg/m2 PA NA Carter PA Work Phone: [facility] Work Phone: 05-09-2022 17:19-0400 Body weight 79.4 kg PA NA Carter PA Work Phone: [facility] Work Phone: 05-01-2022 14:10-0400 Body temperature 97.1 [degF] PA NA Carter PA Work Phone: [facility] Work Phone: 05-01-2022 14:10-0400 Diastolic blood pressure 56 mm[Hg] PA NA Carter PA Work Phone: [facility] Work Phone: 05-01-2022 14:10-0400 Heart rate 67 /min PA NA Carter PA Work Phone: [facility] Work Phone: 05-01-2022 14:10-0400 Respiratory rate 16 /min PA NA Carter PA Work Phone: [facility] Work Phone: 05-01-2022 14:10-0400 SaO2% (BldA) [Mass fraction] 100 % PA NA Carter PA Work Phone: [facility] Work Phone: 05-01-2022 14:10-0400 Systolic blood pressure 135 mm[Hg] PA NA Carter PA Work Phone: [facility] Work Phone: 05-01-2022 09:30-0400 Body mass index (BMI) [Ratio] 24.7 kg/m2 PA NA Carter PA Work Phone: [facility] Work Phone: 05-01-2022 09:30-0400 Body weight 78.01 kg PA NA Carter PA Work Phone: [facility] Work Phone: 04-30-2022 14:53-0400 Body mass index (BMI) [Ratio] 24.7 kg/m2 PA NA Carter PA Work Phone: [facility] Work Phone: 04-30-2022 14:53-0400 Body temperature 98.5 [degF] PA NA Carter PA Work Phone: [facility] Work Phone: 04-30-2022 14:53-0400 Body weight 78.1 kg PA NA Carter PA Work Phone: [facility] Work Phone: 04-30-2022 14:53-0400 Diastolic blood pressure 73 mm[Hg] PA NA Carter PA Work Phone: [facility] Work Phone: 04-30-2022 14:53-0400 Heart rate 65 /min PA NA Carter PA Work Phone: [facility] Work Phone: 04-30-2022 14:53-0400 Respiratory rate 15 /min PA NA Carter PA Work Phone: [facility] Work Phone: 04-30-2022 14:53-0400 SaO2% (BldA) [Mass fraction] 98 % PA NA Carter PA Work Phone: [facility] Work Phone: 04-30-2022 14:53-0400 Systolic blood pressure 147 mm[Hg] PA NA Carter PA Work Phone: [facility] Work Phone: 04-26-2022 08:32-0400 Body mass index (BMI) [Ratio] 24.3 kg/m2 PA NA Carter PA Work Phone: [facility] Work Phone: 04-26-2022 08:32-0400 Body weight 77.11 kg PA NA Carter PA Work Phone: [facility] Work Phone: 04-26-2022 08:32-0400 Diastolic blood pressure 74 mm[Hg] PA NA Carter PA Work Phone: [facility] Work Phone: 04-26-2022 08:32-0400 Heart rate 72 /min PA NA Carter PA Work Phone: [facility] Work Phone: 04-26-2022 08:32-0400 Respiratory rate 16 /min PA NA Carter PA Work Phone: [facility] Work Phone: 04-26-2022 08:32-0400 SaO2% (BldA) [Mass fraction] 99 % PA NA Carter PA Work Phone: [facility] Work Phone: 04-26-2022 08:32-0400 Systolic blood pressure 147 mm[Hg] PA NA Carter PA Work Phone: [facility] Work Phone: 04-17-2022 15:30-0400 Body mass index (BMI) [Ratio] 24.7 kg/m2 PA NA Carter PA Work Phone: [facility] Work Phone: 04-17-2022 15:30-0400 Body temperature 98.6 [degF] PA NA Carter PA Work Phone: [facility] Work Phone: 04-17-2022 15:30-0400 Body weight 78.21 kg PA NA Carter PA Work Phone: [facility] Work Phone: 04-17-2022 15:30-0400 Diastolic blood pressure 69 mm[Hg] PA NA Carter PA Work Phone: [facility] Work Phone: 04-17-2022 15:30-0400 Heart rate 70 /min PA NA Carter PA Work Phone: [facility] Work Phone: 04-17-2022 15:30-0400 Respiratory rate 15 /min PA NA Carter PA Work Phone: [facility] Work Phone: 04-17-2022 15:30-0400 SaO2% (BldA) [Mass fraction] 99 % PA NA Carter PA Work Phone: [facility] Work Phone: 04-17-2022 15:30-0400 Systolic blood pressure 143 mm[Hg] PA NA Carter PA Work Phone: [facility] Work Phone: 04-02-2022 15:43-0400 Body mass index (BMI) [Ratio] 25.1 kg/m2 PA NA Carter PA Work Phone: [facility] Work Phone: 04-02-2022 15:43-0400 Body temperature 98.5 [degF] PA NA Carter PA Work Phone: [facility] Work Phone: 04-02-2022 15:43-0400 Body weight 79.49 kg PA NA Carter PA Work Phone: [facility] Work Phone: 04-02-2022 15:43-0400 Diastolic blood pressure 65 mm[Hg] PA NA Carter PA Work Phone: [facility] Work Phone: 04-02-2022 15:43-0400 Heart rate 69 /min PA NA Carter PA Work Phone: [facility] Work Phone: 04-02-2022 15:43-0400 Respiratory rate 15 /min PA NA Carter PA Work Phone: [facility] Work Phone: 04-02-2022 15:43-0400 SaO2% (BldA) [Mass fraction] 98 % PA NA Carter PA Work Phone: [facility] Work Phone: 04-02-2022 15:43-0400 Systolic blood pressure 155 mm[Hg] PA NA Carter PA Work Phone: [facility] Work Phone: 03-21-2022 10:00-0400 Body mass index (BMI) [Ratio] 25.4 kg/m2 PA NA Crater PA Work Phone: [facility] Work Phone: 03-21-2022 10:00-0400 Body temperature 98.3 [degF] PA NA Carter PA Work Phone: [facility] Work Phone: 03-21-2022 10:00-0400 Body weight 80.54 kg PA NA Carter PA Work Phone: [facility] Work Phone: 03-21-2022 10:00-0400 Diastolic blood pressure 75 mm[Hg] PA NA Carter PA Work Phone: [facility] Work Phone: 03-21-2022 10:00-0400 Heart rate 70 /min PA NA Carter PA Work Phone: [facility] Work Phone: 03-21-2022 10:00-0400 Respiratory rate 15 /min PA NA Carter PA Work Phone: [facility] Work Phone: 03-21-2022 10:00-0400 SaO2% (BldA) [Mass fraction] 96 % PA NA Carter PA Work Phone: [facility] Work Phone: 03-21-2022 10:00-0400 Systolic blood pressure 161 mm[Hg] PA NA Carter PA Work Phone: [facility] Work Phone: 02-15-2022 13:13-0400 Body temperature 96.5 [degF] PA NA Carter PA Work Phone: [facility] Work Phone: 02-15-2022 13:13-0400 Diastolic blood pressure 57 mm[Hg] PA NA Carter PA Work Phone: [facility] Work Phone: 02-15-2022 13:13-0400 Heart rate 73 /min PA NA Carter PA Work Phone: [facility] Work Phone: 02-15-2022 13:13-0400 Respiratory rate 16 /min PA NA Carter PA Work Phone: [facility] Work Phone: 02-15-2022 13:13-0400 SaO2% (BldA) [Mass fraction] 98 % PA NA Carter PA Work Phone: [facility] Work Phone: 02-15-2022 13:13-0400 Systolic blood pressure 136 mm[Hg] PA NA Carter PA Work Phone: [facility] Work Phone: 02-15-2022 08:10-0400 Body height 177.8 cm PA NA Carter PA Work Phone: [facility] Work Phone: 02-14-2022 11:56-0400 Body mass index (BMI) [Ratio] 25.1 kg/m2 PA NA Carter PA Work Phone: [facility] Work Phone: 02-14-2022 11:56-0400 Body temperature 98.4 [degF] PA NA Carter PA Work Phone: [facility] Work Phone: 02-14-2022 11:56-0400 Body weight 79.49 kg PA NA Carter PA Work Phone: [facility] Work Phone: 02-14-2022 11:56-0400 Diastolic blood pressure 67 mm[Hg] PA NA Carter PA Work Phone: [facility] Work Phone: 02-14-2022 11:56-0400 Heart rate 65 /min PA NA Carter PA Work Phone: [facility] Work Phone: 02-14-2022 11:56-0400 Respiratory rate 15 /min PA NA Carter PA Work Phone: [facility] Work Phone: 02-14-2022 11:56-0400 SaO2% (BldA) [Mass fraction] 96 % PA NA Carter PA Work Phone: [facility] Work Phone: 02-14-2022 11:56-0400 Systolic blood pressure 138 mm[Hg] PA NA Carter PA Work Phone: [facility] Work Phone: 02-14-2022 11:56-0400 Body mass index (BMI) [Ratio] 25.1 kg/m2 PA NA Carter PA Work Phone: [facility] Work Phone: 02-14-2022 11:56-0400 Body temperature 98.4 [degF] PA NA Carter PA Work Phone: [facility] Work Phone: 02-14-2022 11:56-0400 Body weight 79.49 kg PA NA Carter PA Work Phone: [facility] Work Phone: 02-14-2022 11:56-0400 Diastolic blood pressure 67 mm[Hg] PA NA Carter PA Work Phone: [facility] Work Phone: 02-14-2022 11:56-0400 Heart rate 65 /min PA NA Carter PA Work Phone: [facility] Work Phone: 02-14-2022 11:56-0400 Respiratory rate 15 /min PA NA Carter PA Work Phone: [facility] Work Phone: 02-14-2022 11:56-0400 SaO2% (BldA) [Mass fraction] 96 % PA NA Carter PA Work Phone: [facility] Work Phone: 02-14-2022 11:56-0400 Systolic blood pressure 138 mm[Hg] PA NA Carter PA Work Phone: [facility] Work Phone: 12-25-2021 12:33-0500 Body mass index (BMI) [Ratio] 25.1 kg/m2 PA NA Carter PA Work Phone: [facility] Work Phone: 12-25-2021 12:33-0500 Body temperature 98.4 [degF] PA NA Carter PA Work Phone: [facility] Work Phone: 12-25-2021 12:33-0500 Body weight 79.4 kg PA NA Carter PA Work Phone: [facility] Work Phone: 12-25-2021 12:33-0500 Diastolic blood pressure 71 mm[Hg] PA NA Carter PA Work Phone: [facility] Work Phone: 12-25-2021 12:33-0500 Heart rate 68 /min PA NA Carter PA Work Phone: [facility] Work Phone: 12-25-2021 12:33-0500 Respiratory rate 15 /min PA NA Carter PA Work Phone: [facility] Work Phone: 12-25-2021 12:33-0500 SaO2% (BldA) [Mass fraction] 97 % PA NA Carter PA Work Phone: [facility] Work Phone: 12-25-2021 12:33-0500 Systolic blood pressure 149 mm[Hg] PA NA Carter PA Work Phone: [facility] Work Phone: 12-18-2021 11:48-0500 Body temperature 98.1 [degF] PA NA Carter PA Work Phone: [facility] Work Phone: 12-18-2021 11:48-0500 Diastolic blood pressure 83 mm[Hg] PA NA Carter PA Work Phone: [facility] Work Phone: 12-18-2021 11:48-0500 Heart rate 75 /min PA NA Carter PA Work Phone: [facility] Work Phone: 12-18-2021 11:48-0500 Respiratory rate 16 /min PA NA Carter PA Work Phone: [facility] Work Phone: 12-18-2021 11:48-0500 SaO2% (BldA) [Mass fraction] 97 % PA NA Carter PA Work Phone: [facility] Work Phone: 12-18-2021 11:48-0500 Systolic blood pressure 147 mm[Hg] PA NA Carter PA Work Phone: [facility] Work Phone: 11-23-2021 12:25-0500 Body temperature 97.8 [degF] PA NA Caretr PA Work Phone: [facility] Work Phone: 11-23-2021 12:25-0500 Diastolic blood pressure 44 mm[Hg] PA NA Carter PA Work Phone: [facility] Work Phone: 11-23-2021 12:25-0500 Heart rate 66 /min PA NA Carter PA Work Phone: [facility] Work Phone: 11-23-2021 12:25-0500 Respiratory rate 16 /min PA NA Carter PA Work Phone: [facility] Work Phone: 11-23-2021 12:25-0500 Systolic blood pressure 123 mm[Hg] PA NA Carter PA Work Phone: [facility] Work Phone: 11-23-2021 11:30-0500 SaO2% (BldA) [Mass fraction] 98 % PA NA Carter PA Work Phone: [facility] Work Phone: 11-23-2021 09:31-0500 Body mass index (BMI) [Ratio] 24.3 kg/m2 PA NA Carter PA Work Phone: [facility] Work Phone: 11-23-2021 09:31-0500 Body weight 77.11 kg PA NA Carter PA Work Phone: [facility] Work Phone: Encounters Encounter Date Encounter Type Care Provider Facility Start: 09-09-2025 End: 09-09-2025 ambulatory Steven Akers Facility:[facility] Start: 09-08-2025 End: 09-08-2025 ambulatory STEVEN AKERS Facility:[facility] Start: 08-26-2025 End: 08-26-[address] Steven Akers DO -Medical Out Work Phone: Start: 08-26-2025 End: 08-26-2025 ambulatory Gladys Suppan [employer] Work Phone: -[facility] Out Start: 08-25-2025 End: 08-25-2025 ambulatory STEVEN AKERS Facility:[facility] Start: 08-12-2025 End: 08-12-[address] Steven Akers DO -Medical Out Work Phone: Start: 08-12-2025 End: 08-12-2025 ambulatory Gladys Suppan [employer] Work Phone: -[facility] Out Start: 08-11-2025 End: 08-11-2025 ambulatory STEVEN AKERS Facility:[facility] Start: 07-29-2025 End: 07-29-[address] Steven Akers DO -Medical Out Work Phone: Start: 07-29-2025 End: 07-29-2025 ambulatory Galdys Suppan [employer] Work Phone: -Medical Out Start: 07-28-2025 ambulatory GLADYS A SUPPAN [facility] ility:[facility] Start: 07-28-2025 Patient encounter procedure LIZZ Hollingsworth SUPPAN [facility] Start: 07-28-2025 End: 07-28-2025 ambulatory STEVEN AKERS Facility:[facility] Start: 07-15-2025 End: 07-15-[address] Steven Akers DO -Medical Out Work Phone: Start: 07-15-2025 End: 07-15-2025 ambulatory Gladys Suppan [employer] Work Phone: -Medical Out Start: 07-14-2025 End: 07-14-2025 Telephone encounter Steven Akers DO Work Phone: Hematology/Oncology Comment on above: Transfusion Start: 07-14-2025 End: 07-14-2025 ambulatory STEVEN AKERS Facility:[facility] Start: 07-01-2025 End: 07-01-[address] Steven Akers DO -Medical Out Work Phone: Start: 07-01-2025 End: 07-01-2025 ambulatory Gladys Da Silva [employer] Work Phone: -Medical Out Start: 06-30-2025 End: [...] 06-17-2025 End: 06-17-2025 ambulatory Gladys Da Silva [employer] Work Phone: -Medical Out Start: 06-16-2025 End: 06-16-2025 ambulatory STEVEN AKERS Facility:[facility] Start: 06-03-2025 End: 06-03-[address] Steven Akers DO -Medical Out Work Phone: Start: 06-03-2025 End: 06-03-2025 ambulatory Gladys VILLALTA Work Phone: -Medical Out Start: 06-02-2025 End: 06-02-2025 Telephone encounter Steven Akers DO Work Phone: Hematology/Oncology Comment on above: Transfusion Start: 06-02-2025 End: 06-02-2025 ambulatory STEVEN AKERS Facility:[facility] Start: 05-20-2025 End: 05-20-[address] Steven Akers DO -Medical Out Work Phone: Start: 05-20-2025 End: 05-20-2025 ambulatory Sunday OGLESBY Work Phone: -Medical Out Start: 05-19-2025 End: 05-19-2025 Telephone encounter Chang Rosa MD Work Phone: Hematology/Oncology Comment on above: Transfusion Start: 05-19-2025 End: 05-19-2025 ambulatory STEVEN Darrick OSWALD Facility:[facility] Start: 05-08-2025 End: 05-09-2025 Telephone encounter Steven [...] End: 05-05-2025 Subsequent hospital visit by physician [facility] Work Phone: Radiology Comment on above: MDS (myelodysplastic syndrome), low grade (HCC) [D46.Z] Start: 05-05-2025 End: 05-05-2025 ambulatory STEVEN Darrick OSWALD Facility:[facility] Start: 04-22-2025 End: 04-22-[address] Steven Akers DO -Medical Out Work Phone: Start: 04-22-2025 End: 04-22-2025 ambulatory Sunday OGLESBY Work Phone: [facility] Work Phone: Start: 04-21-2025 End: 04-21-2025 Telephone encounter Steven Akers DO Work Phone: Hematology/Oncology Start: 04-21-2025 End: 04-21-2025 ambulatory Steven Akers DO Work Phone: Hematology/Oncology Comment on above: MDS (myelodysplastic syndrome), low grade (HCC) (Primary Dx); Iron overload; Splenomegaly Start: 04-21-2025 End: 04-21-2025 Patient encounter procedure Steven Akers DO Work Phone: Hematology/Oncology Start: 04-21-2025 End: 04-21-2025 ambulatory GLADYS A SUPPAN Facility:[facility] Start: 04-18-2025 End: 04-18-2025 Refill Gladys A Suppan DELPHI PROGRAMMER.FACTORY REPRESENTATIVE Work Phone: [facility] Comment on above: Refill Request Start: 04-08-2025 End: 04-08-[address] Steven FONTAINEMedical Out Work Phone: Start: 04-08-2025 End: 04-08-2025 ambulatory Sunday OGLESBY Work Phone: [facility] Work Phone: Start: 04-07-2025 End: 04-07-2025 Telephone encounter Steven Akers DO Work Phone: Hematology/Oncology Comment on above: Transfusion Start: 04-07-2025 End: 04-07-2025 ambulatory GLADYS A SUPPAN Facility:[facility] Start: 03-25-2025 End: 03-25-[address] Steven FONTAINEMedical Out Work Phone: Start: 03-25-2025 End: 03-25-2025 ambulatory Sunday OGLESBY Work Phone: [facility] Work Phone: Start: 03-24-2025 End: 04-25-2025 Telephone encounter Steven Akers DO Work Phone: Hematology/Oncology Comment on above: transfusion Start: 03-24-2025 End: 03-24-2025 ambulatory GLADYS A SUPPAN Facility:[facility] Start: 03-11-2025 End: 03-11-[address] Steven FONTAINEMedical Out Work Phone: Start: 03-11-2025 End: 03-11-2025 ambulatory Gladys Da Silva Facility:[facility] Start: 03-10-2025 End: 03-10-2025 Telephone encounter Steven Akers DO Work Phone: Hematology/Oncology Comment on above: Transfusion Start: 03-10-2025 End: 03-10-2025 ambulatory GLADYS DA SILVA Facility:[facility] Start: 03-04-2025 End: 03-04-2025 ambulatory MARIE LANZA Facility:[facility] Start: 02-25-2025 End: 02-25-[address] Steven Akers DO -Medical Out Work Phone: Start: 02-25-2025 End: 02-25-2025 ambulatory Sunday OGLESBY Work Phone: [facility] Work Phone: Start: 02-24-2025 End: 04-26-2025 Follow-up encounter Galdys Da Silva DELPHI PROGRAMMER.FACTORY REPRESENTATIVE Work Phone: [facility] Start: 02-24-2025 End: 02-28-2025 Telephone encounter Steven [...] 02-11-2025 End: 02-11-2025 ambulatory Gladys Da Silva Facility:[facility] Start: 02-10-2025 Non-patient / Non-visit Dr. Lalo bravo MD -[facility] Start: 02-10-2025 End: 02-11-2025 ambulatory Steven Akers [...] End: 01-28-2025 ambulatory Sunday OGLESBY Work Phone: [facility] Work Phone: Start: 01-27-2025 End: 01-27-2025 Telephone encounter Steven Akers DO Work Phone: Hematology/Oncology Comment on above: Transfusion Start: 01-27-2025 End: 01-27-2025 Office outpatient visit 25 minutes Gladys Da Silva DELPHI PROGRAMMER.FACTORY REPRESENTATIVE Work Phone: [facility] Comment on above: Hypokalemia (Primary Dx); Anxiety with depression; Urgency of urination; MDS (myelodysplastic syndrome), low grade (HCC); BPH with obstruction/lower urinary tract symptoms; Diastolic dysfunction; Chronic fatigue Start: 01-27-2025 End: 01-28-2025 ambulatory Gladys A Rommel DELPHI PROGRAMMER.FACTORY REPRESENTATIVE Work Phone: [facility] Comment on above: Montelukast Start: 01-24-2025 End: 01-24-2025 ambulatory Steven Akers DO Work Phone: Hematology/Oncology Comment on above: Palliative Care Start: 01-22-2025 End: 01-24-2025 Refill Shaheed Cervantes MD Work Phone: [facility] Comment on above: Refill Request Start: 01-14-2025 End: 01-14-[address] Steven FON[facility]EMedical Out Work Phone: Start: 01-14-2025 End: 01-14-2025 ambulatory Sunday OGLESBY Work Phone: [facility] Work Phone: Start: 01-13-2025 End: 01-13-2025 Telephone encounter Steven Akers DO Work Phone: Hematology/Oncology Comment on above: transfusion Start: 01-13-2025 End: 01-13-2025 ambulatory HETAL CARTER Facility:[facility] Start: 01-05-2025 End: 01-06-2025 Refill Gladys Da Silva APRN.CNP Work Phone: [facility] Comment on above: Refill Request Start: 12-31-2024 End: 12-31-[address] Steven FONTAINEMedical Out Work Phone: Start: 12-31-2024 End: 12-31-2024 ambulatory Sunday OGLESBY Facility:[facility] Start: 12-29-2024 End: 12-29-2024 ambulatory HETAL CARTER Facility:[facility] Start: 12-29-2024 End: 12-29-2024 Telephone encounter Steven Akers DO Work Phone: Hematology/Oncology Comment on above: Orders Transfusion Start: 12-21-2024 End: 12-21-2024 Refill Curtis Diaz PA-C Work Phone: Urology Comment on above: Refill Request Start: 12-17-2024 End: 12-17-[address] Steven [facility]ONTAINEMedical Out Work Phone: Start: 12-17-2024 End: 12-17-2024 ambulatory Sunday OGLESBY Facility:[facility] Start: 12-16-2024 End: 12-16-2024 Telephone encounter Steven [...] Start: 12-16-2024 End: 12-16-2024 ambulatory HETAL CARTER Facility:[facility] Start: 12-03-2024 End: 12-03-[address] Steven Akers DO -Medical Out Work Phone: Start: 12-03-2024 End: 12-03-2024 ambulatory Sunday OGLESBY Facility:[facility] Start: 12-02-2024 End: 12-02-2024 Telephone encounter Steven Akers DO Work Phone: Hematology/Oncology Comment on above: transfusion Refill Request Start: 12-02-2024 End: 12-02-2024 ambulatory HETAL CARTER Facility:[facility] Start: 11-12-2024 End: 11-12-[address] Steven FON[facility]EMedical Out Work Phone: Start: 11-12-2024 End: 11-12-2024 ambulatory Sunday OGLESBY Facility:[facility] Start: 11-11-2024 End: 11-11-2024 Telephone encounter Steven Akers DO Work Phone: Hematology/Oncology Comment on above: Transfusion Start: 11-11-2024 End: 11-11-2024 ambulatory HETAL CARTER Facility:[facility] Start: 11-04-2024 End: 11-04-2024 ambulatory HETAL CARTER Facility:[facility] Start: 10-30-2024 End: 10-31-2024 Refill Steven Akers DO Work Phone: Hematology/Oncology Comment on above: Refill Request Start: 10-30-2024 End: 11-01-2024 Refill Steven Akers DO Work Phone: Hematology/Oncology Comment on above: Refill Request Start: 10-23-2024 End: 10-25-2024 Refill Gladys Da Silva DELPHI PROGRAMMER.FACTORY REPRESENTATIVE Work Phone: [facility] Comment on above: Refill Request Start: 10-22-2024 End: 10-22-[address] Steven Akers DO -Medical Out Work Phone: Start: 10-22-2024 End: 10-22-2024 ambulatory Sunday OGLESBY Facility:[facility] Start: 10-20-2024 End: 10-20-2024 Telephone encounter Steven Akers DO Work Phone: Hematology/Oncology Comment on above: Transfusion Start: 10-20-2024 End: 10-20-2024 ambulatory HETAL CARTER Facility:[facility] Start: 10-13-2024 End: 10-13-2024 Telephone encounter Shanell [...] 10-10-2024 End: 10-11-2024 Refill Gladys Da Silva DELPHI PROGRAMMER.FACTORY REPRESENTATIVE Work Phone: [facility] Comment on above: Refill Request Start: 10-03-2024 End: 10-03-2024 Refill Steven Akers DO Work Phone: Hematology/Oncology Comment on above: Refill Request Start: 10-01-2024 End: 10-01-[address] Steven FONTAINEMedical Out Work Phone: Start: 10-01-2024 End: 10-01-2024 ambulatory M Moise OGLESBY Facility:[facility] Start: 09-30-2024 End: 09-30-2024 Telephone encounter Shanell STOVALL Hematology/Oncology Comment on above: Social Work Services Transfusion Start: 09-30-2024 End: 09-30-2024 ambulatory Treatment Rm 9 Jayy [facility] Work Phone: Hematology/Oncology Comment on above: MDS (myelodysplastic syndrome), low grade (HCC) (Primary Dx); Macrocytic anemia Start: 09-27-2024 End: 09-27-2024 Telephone encounter Steven Akers DO Work Phone: Hematology/Oncology Comment on above: Referral Request Start: 09-24-2024 End: 09-24-[address] Steven FONTAINEMedical Out Work Phone: Start: 09-24-2024 End: 09-30-2024 Orders Only Gladys Da Silva DELPHI PROGRAMMER.FACTORY REPRESENTATIVE Work Phone: [facility] Comment on above: Subclinical hypothyr oidism Start: 09-23-2024 End: 09-23-2024 Telephone encounter Steven Akers DO Work Phone: Hematology/Oncology Start: 09-23-2024 End: 09-23-2024 ambulatory Treatment Rm 5 Jayy [facility] Work Phone: Hematology/Oncology Comment on above: MDS (myelodysplastic syndrome), low grade (HCC) (Primary Dx); Macrocytic anemia Start: 09-16-2024 End: 09-16-2024 ambulatory Treatment Rm 9 Jayy [facility] Work Phone: Hematology/Oncology Comment on above: MDS (myelodysplastic syndrome), low grade (HCC) (Primary Dx); Macrocytic anemia Start: 09-09-2024 End: 09-09-2024 Telephone encounter Steven A Masci DO Work Phone: Radiation Oncology Comment on above: Transfusion Start: 09-09-2024 End: 09-09-2024 ambulatory Treatment Rm 4 Jayy [facility] Work Phone: Hematology/Oncology Comment on above: MDS (myelodysplastic syndrome), low grade (HCC) (Primary Dx); Macrocytic anemia Start: 09-02-2024 End: 09-03-2024 Telephone encounter Steven Akers DO Work Phone: Hematology/Oncology Comment on above: Refill Request Start: 09-02-2024 End: 09-02-2024 ambulatory Treatment Rm 3 Jayy [facility] Work Phone: Hematology/Oncology Comment on above: MDS (myelodysplastic syndrome), low grade (HCC) (Primary Dx); Macrocytic anemia Start: 08-26-2024 End: 08-26-2024 Telephone encounter Steven Akers DO Work Phone: Hematology/Oncology Comment on above: Transfusion Start: 08-26-2024 End: 08-26-2024 ambulatory Treatment Rm 3 Jayy [facility] Work Phone: Hematology/Oncology Comment on above: Waldenstroms macrogl obulinemia (Primary Dx); MDS (myelodysplastic syndrome), low grade (HCC); Macrocytic anemia Start: 08-19-2024 End: 08-19-2024 ambulatory Treatment Rm 7 Jayy [facility] Work Phone: Hematology/Oncology Comment on above: MDS (myelodysplastic syndrome), low grade (HCC) (Primary Dx); Macrocytic anemia Start: 08-12-2024 End: 08-12-2024 ambulatory Treatment Rm 8 [facility] Work Phone: Hematology/Oncology Comment on above: MDS (myelodysplastic syndrome), low grade (HCC) (Primary Dx); Macrocytic anemia Start: 08-05-2024 End: 08-06-2024 ambulatory Treatment Rm 2 Jayy [facility] Work Phone: Hematology/Oncology Comment on above: MDS (myelodysplastic syndrome), low grade (HCC) (Primary Dx); Macrocytic anemia Refill Request Start: 08-05-2024 End: 08-05-2024 Telephone encounter Steven Akers DO Work Phone: Hematology/Oncology Comment on above: transfusion Start: 07-30-2024 End: 07-30-2024 Refill Steven Akers DO Work Phone: Hematology/Oncology Comment on above: Refill Request Start: 07-28-2024 End: 07-28-2024 ambulatory Treatment Rm 12 Jayy [facility] Work Phone: Hematology/Oncology Comment on above: MDS (myelodysplastic syndrome), low grade (HCC) (Primary Dx); Macrocytic anemia MDS (myelodysplastic syndrome), low grade (HCC) (Primary Dx); Anemia, unspecified type Start: 07-28-2024 End: 07-28-2024 Patient encounter procedure Steven Akers DO Work Phone: Hematology/Oncology Start: 07-27-2024 End: 07-27-2024 Telephone encounter Gladys Da Silva APRN.FACTORY REPRESENTATIVE Work Phone: [facility] Comment on above: Results Start: 07-22-2024 End: 07-22-2024 Telephone encounter Steven Akers DO Work Phone: Hematology/Oncology Comment on above: Transfusion Start: 07-22-2024 End: 07-22-2024 ambulatory Treatment Rm 4 [facility] [place] Work Phone: Hematology/Oncology Comment on above: Waldenstroms macrogl obulinemia (HCC) (Primary Dx); MDS (myelodysplastic syndrome), low grade (HCC); Macrocytic anemia Start: 07-20-2024 End: 07-20-2024 Office outpatient visit 25 minutes Gladys Da Silva APRN.FACTORY REPRESENTATIVE Work Phone: [facility] Comment on above: Anxiety with depress ion (Primary Dx); Encounter for screening examination for other mental health and behavioral disorders; Screening for depression; Polyneuropathy in other diseases classified elsewhere (HCC); Diastolic dysfunction; Early satiety; MDS (myelodysplastic syndrome), low grade (HCC); Chronic fatigue Start: 07-15-2024 End: 07-15-2024 ambulatory Treatment Rm 7 Jayy [facility] Work Phone: Hematology/Oncology Comment on above: MDS (myelodysplastic syndrome), low grade (HCC) (Primary Dx); Macrocytic anemia Start: 07-10-2024 End: 07-13-2024 Refill Sunday Carter PA-C Work Phone: [facility] Comment on above: Refill Request Start: 07-08-2024 End: 07-08-2024 Telephone encounter Steven Akers DO Work Phone: Hematology/Oncology Start: 07-08-2024 End: 07-08-2024 ambulatory Treatment [facility]m 4 [facility] Work Phone: Hematology/Oncology Comment on above: MDS (myelodysplastic syndrome), low grade (HCC) (Primary Dx) Start: 07-03-2024 End: 07-04-2024 Refill Steven Akers DO Work Phone: Hematology/Oncology Comment on above: Refill Request Start: 07-01-2024 End: 07-01-2024 ambulatory Treatment Rm 8 [facility] Work Phone: Hematology/Oncology Comment on above: MDS (myelodysplastic syndrome), low grade (HCC) (Primary Dx); Macrocytic anemia Start: 06-24-2024 Telephone encounter Steven ribera DO Work Phone: Hematology/Oncology Comment on above: Transfusion Start: 06-24-2024 End: 06-24-2024 Subsequent hospital visit by physician [facility] Work Phone: Radiology Comment on above: Splenomegaly [R16.1] Start: 06-24-2024 End: 06-24-2024 ambulatory Treatment Rm 6 Jayy [facility] Work Phone: Hematology/Oncology Comment on above: MDS (myelodysplastic syndrome), low grade (HCC) (Primary Dx); Macrocytic anemia Start: 06-18-2024 Refill Steven Carrasco Work Phone: Hematology/Oncology Comment on above: Refill Request Start: 06-17-2024 End: 06-17-2024 ambulatory Treatment Rm 5 [facility] Work Phone: Hematology/Oncology Comment on above: MDS (myelodysplastic syndrome), low grade (HCC) (Primary Dx); Macrocytic anemia Start: 06-09-2024 Telephone encounter Steven ribera DO Work Phone: Hematology/Oncology Comment on above: Transfusion Patient Update (Righ t sided pain) Start: 06-09-2024 End: 06-09-2024 ambulatory Treatment Rm 12 [facility] Work Phone: Hematology/Oncology Comment on above: MDS (myelodysplastic syndrome), low grade (HCC) (Primary Dx); Macrocytic anemia Start: 06-04-2024 Refill Steven Carrasco Work Phone: Hematology/Oncology Comment on above: Refill Request Start: 06-03-2024 End: 06-03-2024 ambulatory Treatment Rm 9 [facility] Work Phone: Hematology/Oncology Comment on above: MDS (myelodysplastic syndrome), low grade (HCC) (Primary Dx); Macrocytic anemia Start: 05-27-2024 Telephone encounter Steven ribera DO Work Phone: Hematology/Oncology Comment on above: Results; Transfusion Start: 05-27-2024 End: 05-27-2024 ambulatory Treatment Rm 13 [facility] Work Phone: Hematology/Oncology Comment on above: MDS (myelodysplastic syndrome), low grade (HCC) (Primary Dx); Macrocytic anemia Start: 05-20-2024 Telephone encounter Chang quinonez MD Work Phone: Hematology/Oncology Comment on above: late entry-transfusi on Start: 05-20-2024 End: 05-20-2024 ambulatory Treatment Rm 13 [facility] Work Phone: Hematology/Oncology Comment on above: MDS (myelodysplastic syndrome), low grade (HCC) (Primary Dx); Macrocytic anemia Start: 05-12-2024 End: 05-12-2024 ambulatory Treatment Rm 13 [facility] Work Phone: Hematology/Oncology Comment on above: MDS (myelodysplastic syndrome), low grade (HCC) (Primary Dx); Macrocytic anemia Start: 05-11-2024 ambulatory Steven Carrasco Work Phone: Hematology/Oncology Comment on above: Injection site bruis e Start: 05-10-2024 Telephone encounter Steven ribera DO Work Phone: Hematology/Oncology Comment on above: Patient Update Start: 05-06-2024 End: 05-06-2024 ambulatory Stveen Akers DO Work Phone: Hematology/Oncology Comment on [...] 04-29-2024 End: 04-29-2024 ambulatory Treatment Rm 13 [facility] Work Phone: Hematology/Oncology Comment on above: MDS (myelodysplastic syndrome), low grade (HCC) (Primary Dx); Macrocytic anemia Start: 04-21-2024 Telephone encounter Steven ribera DO Work Phone: Hematology/Oncology Comment on above: Transfusion Follow Up Start: 04-15-2024 Telephone encounter Steven ribera DO Work Phone: Hematology/Oncology Comment on above: Transfusion Start: 04-15-2024 End: 04-15-2024 ambulatory Treatment Rm 13 [facility] Work Phone: Hematology/Oncology Comment on above: MDS (myelodysplastic syndrome), low grade (HCC) (Primary Dx); Macrocytic anemia Start: 04-11-2024 Refill Sunday ISBELLC Work Phone: [facility] Comment on above: Refill Request Start: 04-08-2024 End: 04-08-2024 ambulatory Treatment Rm 13 [facility] Work Phone: Hematology/Oncology Comment on above: MDS (myelodysplastic syndrome), low grade (HCC) (Primary Dx); Macrocytic anemia Start: 04-02-2024 Refill Steven Carrasco Work Phone: Hematology/Oncology Comment on above: Refill Request Start: 04-01-2024 Telephone encounter Steven ribera DO Work Phone: Hematology/Oncology Comment on above: Transfusion Start: 04-01-2024 End: 04-01-2024 ambulatory Treatment Rm 13 [facility] Work Phone: Hematology/Oncology Comment on above: MDS (myelodysplastic syndrome), low grade (HCC) (Primary Dx); Macrocytic anemia Start: 03-25-2024 End: 03-25-2024 ambulatory Treatment Rm 13 [facility] Work Phone: Hematology/Oncology Comment on above: MDS (myelodysplastic syndrome), low grade (HCC) (Primary Dx); Macrocytic anemia Start: 03-22-2024 End: 03-22-2024 ambulatory MENDEL OGLESBY Work Phone: [facility] Work Phone: Comment on above: [employer] Start: 03-22-2024 End: 03-22-2024 Patient encounter procedure MENDEL OGLESBY Work Phone: [facility]-Medical Out Work Phone: Start: 03-19-2024 End: 03-19-2024 ambulatory Treatment Rm 2 [facility] Work Phone: Hematology/Oncology Comment on above: MDS (myelodysplastic syndrome), low grade (HCC) (Primary Dx); Macrocytic anemia Start: 03-19-2024 Telephone encounter Steven ribera DO Work Phone: Hematology/Oncology Comment on above: Transfusion Start: 03-16-2024 Telephone encounter Steven ribera DO Work Phone: Hematology/Oncology Comment on above: Appointment Start: 03-11-2024 End: 03-11-2024 ambulatory Treatment Rm 13 Jayy [facility] Work Phone: Hematology/Oncology Comment on above: Macrocytic anemia (P rimary Dx); MDS (myelodysplastic syndrome), low grade (HCC) Start: 03-05-2024 End: 03-05-2024 ambulatory MENDEL OGLESBY Work Phone: [facility] Work Phone: Start: 03-05-2024 End: 03-05-2024 Patient encounter procedure MENDEL OGLESBY Work Phone: [facility]-Medical Out Work Phone: Start: 03-04-2024 Telephone encounter Steven ribera DO Work Phone: Hematology/Oncology Comment on above: Transfusion Refill Request Start: 03-04-2024 End: 03-04-2024 ambulatory Treatment Rm 7 Jayy [facility] Work Phone: Hematology/Oncology Comment on above: Macrocytic anemia (P rimary Dx); MDS (myelodysplastic syndrome), low grade (HCC) Start: 02-26-2024 End: 02-26-2024 ambulatory Treatment Rm 13 Jayy [facility] Work Phone: Hematology/Oncology Comment on above: Macrocytic anemia (P rimary Dx); MDS (myelodysplastic syndrome), low grade (HCC) Start: 02-20-2024 End: 02-20-2024 ambulatory MENDEL OGLESBY Work Phone: [facility] Work Phone: Start: 02-20-2024 End: 02-20-2024 Patient encounter procedure [facility]GLESBY [facility] Start: 02-19-2024 End: 02-19-2024 ambulatory Treatment Rm 13 [facility] Work Phone: Hematology/Oncology Comment on above: Macrocytic anemia (P rimary Dx); MDS (myelodysplastic syndrome), low grade (HCC) Start: 02-19-2024 Telephone encounter Salena Ricardo RN He matology/Oncology Comment on above: Field Artillery Operations Specialist - O ther (Toxicity Check ) Start: 02-13-2024 Telephone encounter Layla teran RN Work Phone: Hematology/Oncology Comment on above: Care Coordination (C YCLE 1/DAY 1 POST TREATMENT CALL ) Start: 02-12-2024 End: 02-12-2024 ambulatory Treatment Rm 11 Jayy [facility] Work Phone: Hematology/Oncology Comment on above: Waldenstroms macrogl obulinemia (HCC) (Primary Dx); Macrocytic anemia; MDS (myelodysplastic syndrome), low grade (HCC) Start: 02-11-2024 Orders Only Steven Pepper O Work Phone: Hematology/Oncology Comment on above: MDS (myelodysplastic syndrome), low grade (HCC) (Primary Dx); Macrocytic anemia; 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 (HCC); Iron overload, transfusional Start: 02-09-2024 End: 02-09-2024 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 [facility] Work Phone: Hematology/Oncology Comment on above: Encounter for educat ion (Primary Dx); MDS (myelodysplastic syndrome), low grade (HCC) Start: 01-30-2024 End: 01-30-2024 ambulatory MENDEL OGLESBY Work Phone: [facility] Work Phone: Start: 01-30-2024 End: 01-30-2024 Patient encounter procedure MENDEL OGLESBY Work Phone: [facility]-Medical Out Work Phone: Start: 01-29-2024 Telephone encounter Salena Ricardo RN He matology/Oncology Comment on above: Field Art[employer] Operations Specialist - O ther (Introduction) AVS 01/29/24, CHEMO S TART WK OF 02/08 Start: 01-29-2024 End: 01-29-2024 ambulatory Injection Jayy [facility] Work Phone: Hematology/Oncology Comment on above: MDS (myelodysplastic syndrome), low grade (HCC) (Primary Dx) MDS (myelodysplastic syndrome), low grade (HCC) (Primary Dx); Macrocytic anemia; 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 (HCC); Iron overload, transfusional Start: 01-29-2024 End: 01-29-2024 Patient encounter procedure Steven Akers DO Work Phone: [facility] Start: 01-28-2024 Orders Only Steven Pepper O Work Phone: Hematology/Oncology Comment on above: MDS (myelodysplastic syndrome), low grade (HCC) (Primary Dx); 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 (HCC); Iron overload, transfusional; Idiopathic aplastic anemia (HCC) Start: 01-24-2024 Refill Sunday Bhatt on [employer] Work Phone: [facility] Comment on above: Refill Request Start: 01-15-2024 End: 01-15-2024 Patient encounter procedure Sunday Carter [employer] Work Phone: [facility] Comment on above: Diastolic dysfunctio n [...] Patient encounter procedure MENDEL OGLESBY Work Phone: [facility] Work Phone: Start: 01-10-2024 Refill Sunday Bhatt on [employer] Work Phone: [facility] Comment on above: Refill Request; Refi ll Request Start: 01-08-2024 End: 01-08-2024 ambulatory Injection Jayy [facility] Work Phone: Hematology/Oncology Comment on above: Idiopathic aplastic anemia (HCC) (Primary Dx); MDS (myelodysplastic syndrome), low grade (HCC) Start: 01-02-2024 End: 01-02-2024 [facility] Work Phone: Start: 01-02-2024 End: 01-02-2024 Patient encounter procedure [facility] [facility] Work Phone: Start: 01-01-2024 Telephone encounter Steven ribera DO Work Phone: Hematology/Oncology Comment on above: Transfusion Start: 12-31-2023 ambulatory Steven Carrasco Work Phone: Hematology/Oncology Comment on above: Labs Start: 12-12-2023 End: 12-12-2023 [facility] Work Phone: Start: 12-12-2023 End: 12-12-2023 Patient encounter procedure [facility] Work Phone: Start: 12-11-2023 Telephone encounter Steven ribera DO Work Phone: Hematology/Oncology Comment on above: Transfusion Start: 11-28-2023 End: 11-28-2023 ambulatory [facility] Work Phone: Start: 11-28-2023 End: 11-28-2023 Patient encounter procedure [facility] Work Phone: Start: 11-14-2023 End: 11-14-2023 [facility] Work Phone: Start: 11-14-2023 End: 11-14-2023 Patient encounter procedure [facility] Work Phone: Start: 10-17-2023 End: 10-17-2023 Patient encounter procedure [facility] Work Phone: Start: 10-16-2023 End: 10-16-2023 Patient encounter procedure Steven Akers DO Work Phone: [facility] Start: 10-16-2023 End: 10-16-2023 ambulatory Injection Jayy [facility] Work Phone: Hematology/Oncology Comment on above: Idiopathic aplastic anemia (HCC) (Primary Dx); MDS (myelodysplastic syndrome), low grade (HCC) MDS (myelodysplastic syndrome), low grade (HCC) (Primary Dx); 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 (HCC); Iron overload, transfusional Start: 09-25-2023 End: 09-25-2023 ambulatory Injection Jayy [facility] Work Phone: Hematology/Oncology Comment on above: Idiopathic aplastic anemia (HCC) (Primary Dx); MDS (myelodysplastic syndrome), low grade (HCC) Handicap placard Handicap Placard Req uest Start: 09-19-2023 End: 09-19-2023 ambulatory [facility] Work Phone: Start: 09-19-2023 End: 09-19-2023 Patient encounter procedure [facility] Work Phone: Start: 09-18-2023 ambulatory Steven Carrasco Work Phone: Hematology/Oncology Comment on above: Labs Start: 09-18-2023 Telephone encounter Shanell STOVALL Hematology/Oncology Comment on above: 2023 [employer] Transfusion Start: 09-04-2023 End: 09-04-2023 ambulatory Injection Jayy [facility] Work Phone: Hematology/Oncology Comment on above: Idiopathic aplastic anemia (HCC) (Primary Dx); MDS (myelodysplastic syndrome), low grade (HCC) Start: 09-04-2023 Telephone encounter Steven ribera DO Work Phone: Hematology/Oncology Comment on above: Erroneous encounter- disregard Start: 08-22-2023 End: 08-22-2023 Patient encounter procedure [facility] Work Phone: Start: 08-21-2023 Telephone encounter Steven ribera DO Work Phone: Hematology/Oncology Comment on above: Transfusion Start: 08-14-2023 End: 08-14-2023 ambulatory Injection Jayy [facility] Work Phone: Hematology/Oncology Comment on above: Idiopathic aplastic anemia (HCC) (Primary Dx); MDS (myelodysplastic syndrome), low grade (HCC) Start: 08-08-2023 End: 08-08-2023 Patient encounter procedure [facility] Work Phone: Start: 07-21-2023 ambulatory Steven Carrasco Work Phone: Hematology/Oncology Comment on above: Labs Start: 07-21-2023 Telephone encounter Steven ribera DO Work Phone: Hematology/Oncology Comment on above: Patient Update Start: 07-07-2023 ambulatory Steven Carrasco Work Phone: Hematology/Oncology Comment on above: Labs scheduled for Venkatesh trevino Start: 07-04-2023 End: 07-04-2023 ambulatory MENDEL OGLESBY Work Phone: [facility] Work Phone: Start: 07-04-2023 End: 07-04-2023 Patient encounter procedure MENDEL OGLESBY Work Phone: [facility] Work Phone: Start: 07-03-2023 Telephone encounter Steven ribera DO Work Phone: Hematology/Oncology Comment on above: Transfusion Start: 07-03-2023 End: 07-03-2023 Patient encounter procedure Sunday Carter PA-C Work Phone: [facility] Comment on above: MDS (myelodysplastic syndrome), low grade (HCC) (Primary Dx); 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 (HCC); Pulmonary hypertension, mild (HCC); Diastolic dysfunction; Iron overload, transfusional; ROSS (obstructive sleep apnea); Polyneuropathy in other diseases classified elsewhere (HCC); Chronic GERD Start: 07-03-2023 End: 07-03-2023 Patient encounter procedure Steven Akers DO Work Phone: [facility] Start: 07-03-2023 End: 07-03-2023 ambulatory Injection Jayy [facility] Work Phone: Hematology/Oncology Comment on above: Idiopathic aplastic anemia (HCC) (Primary Dx); MDS (myelodysplastic syndrome), low grade (HCC) MDS (myelodysplastic syndrome), low grade (HCC) (Primary Dx); Iron overload, transfusional; 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 (HCC) Start: 06-23-2023 Refill Sunday Bhatt on PA-C Work Phone: [facility] Comment on above: Refill Request Start: 06-23-2023 Refill Sunday Bhatt on PA-C Work Phone: [facility] Comment on above: Med Change Request Start: 06-20-2023 End: 06-20-2023 ambulatory MENDEL OGLESBY Work Phone: [facility] Work Phone: Start: 06-20-2023 End: 06-20-2023 Patient encounter procedure MENDEL OGLESBY Work Phone: [facility] Work Phone: Start: 06-19-2023 End: 06-19-2023 Emergency department patient visit MENDEL OGLESBY Work Phone: [facility] Work Phone: Start: 06-12-2023 End: 06-12-2023 ambulatory Steven Akers DO Work Phone: Hematology/Oncology Comment on above: MDS (myelodysplastic syndrome), low grade (HCC) (Primary Dx); 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 (HCC); Iron overload, transfusional; Renal cyst Idiopathic aplastic anemia (HCC) (Primary Dx); MDS (myelodysplastic syndrome), low grade (HCC) Start: 06-12-2023 End: 06-12-2023 Patient encounter procedure Steven Akers DO Work Phone: [facility] Start: 06-06-2023 End: 06-06-2023 Patient encounter procedure [facility]ENDEL OGLESBY [facility] Start: 06-05-2023 Telephone encounter Steven ribera DO Work Phone: Hematology/Oncology Comment on above: Transfusion Start: 06-05-2023 End: 06-06-2023 ambulatory MENDEL OGLESBY Work Phone: [facility] Work Phone: Start: 06-05-2023 End: 06-06-2023 Patient encounter procedure MENDEL OGLESBY Work Phone: [facility] Work Phone: Start: 05-22-2023 End: 05-22-2023 ambulatory Steven Akers DO Work Phone: Hematology/Oncology Comment on above: MDS (myelodysplastic syndrome), low grade (HCC) (Primary Dx); Macrocytic anemia; 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 (HCC); Iron overload, transfusional; Renal cyst; Hypervolemia, unspecified hypervolemia type Start: 05-22-2023 End: 05-22-2023 Patient encounter procedure Steven Akers DO Work Phone: [facility] Start: 05-02-2023 End: 05-02-2023 ambulatory MENDEL OGLESBY Work Phone: [facility] Work Phone: Start: 05-02-2023 End: 05-02-2023 Patient encounter procedure MENDEL OGLESBY Work Phone: [facility] Start: 05-01-2023 End: 05-01-2023 ambulatory [facility] Work Phone: [facility]/Oncology Comment on above: Idiopathic [...] 05-01-2023 Subsequent hospital visit by physician Xr [facility] Work Phone: Radiology Comment on above: MDS (myelodysplastic syndrome), low grade (HCC) [D46.Z] Start: 05-01-2023 End: 05-01-2023 Patient encounter procedure Sisi Blanchard DELPHI PROGRAMMER.FACTORY REPRESENTATIVE Work Phone: [facility] Start: 04-18-2023 End: 04-18-2023 Patient encounter procedure MENDEL OGLESBY Work Phone: [facility] Start: 04-10-2023 Telephone encounter Sisi minor APRN.FACTORY REPRESENTATIVE Work Phone: Hematology/Oncology Comment on above: AVS 6 Start: 04-10-2023 End: 04-10-2023 ambulatory Injection Jayy [facility] Work Phone: Hematology/Oncology Comment on above: Idiopathic aplastic anemia (HCC) (Primary Dx); MDS (myelodysplastic syndrome), low grade (HCC) MDS (myelodysplastic syndrome), low grade (HCC) (Primary Dx); Pancytopenia (HCC) Start: 04-10-2023 End: 04-10-2023 Patient encounter procedure Sisi Blanchard DELPHI PROGRAMMER.FACTORY REPRESENTATIVE Work Phone: [facility] Start: 04-08-2023 Telephone encounter Sunday Carter PA-C Work Phone: [facility] [place] Comment on above: Insurance Authorizat ion Start: 04-04-2023 End: 04-04-2023 Patient encounter procedure MENDEL OGLESBY Work Phone: [facility] Start: 03-21-2023 End: 03-21-2023 ambulatory MENDEL OGLESBY Work Phone: [facility] Work Phone: Start: 03-21-2023 End: 03-21-2023 Patient encounter procedure MENDEL OGLESBY Work Phone: [facility] Start: 03-20-2023 Telephone encounter Steven Darrick Amadou ribera DO Work Phone: Hematology/Oncology Comment on above: Transfusion Start: 03-20-2023 End: 03-20-2023 Patient encounter procedure MENDEL OGLESBY Work Phone: [facility]-Laboratory, Specimen Start: 03-20-2023 End: 03-20-2023 ambulatory Injection Jayy [facility] Work Phone: Hematology/Oncology Comment on above: Idiopathic aplastic anemia (HCC) (Primary Dx); MDS (myelodysplastic syndrome), low grade (HCC) Start: 03-12-2023 Telephone encounter Shanell STOVALL Hematology/Oncology Comment on above: Medication Assistanc e Start: 03-10-2023 Non-patient / Non-visit MENDEL OGLESBY Work Phone: [facility] Start: 03-10-2023 End: 03-10-2023 ambulatory MENDEL OGLESBY Work Phone: [facility] Work Phone: Start: 03-10-2023 End: 03-10-2023 Patient encounter procedure MENDEL OGLESBY Work Phone: [facility] Start: 03-07-2023 End: 03-07-2023 Emergency department patient visit MENDEL OGLESBY Work Phone: [facility]Emer[facility] Start: 03-07-2023 End: 03-07-2023 ambulatory MENDEL OGLESBY Work Phone: [facility] Work Phone: Start: 03-07-2023 End: 03-07-2023 Patient encounter procedure MENDEL OGLESBY Work Phone: [facility] Start: 03-06-2023 Telephone encounter Steven ribera DO Work Phone: Hematology/Oncology Comment on above: Transfusion Appointment Med Assist Start: 03-06-2023 End: 03-06-2023 ambulatory MENDEL OGLESBY Work Phone: [facility] Work Phone: Start: 03-06-2023 End: 03-06-2023 Patient encounter procedure MENDEL OGLESBY Work Phone: [facility]Labor[facility] Start: 03-05-2023 ambulatory Steven Carrasco Work Phone: Hematology/Oncology Comment on above: Labs Start: 02-28-2023 End: 02-28-2023 Non-patient / Non-visit MENDEL OGLESBY Work Phone: [facility] Work Phone: Start: 02-28-2023 Registered Referred MENDEL OGLESBY Work Phone: [facility] Start: 02-27-2023 End: 02-27-2023 ambulatory Injection Jayy [facility] Work Phone: Hematology/Oncology Comment on above: Idiopathic aplastic anemia (HCC) (Primary Dx); MDS (myelodysplastic syndrome), low grade (HCC) MDS (myelodysplastic syndrome), low grade (HCC) (Primary Dx) Start: 02-27-2023 End: 02-27-2023 Patient encounter procedure Sisi Blanchard DELPHI PROGRAMMER.FACTORY REPRESENTATIVE Work Phone: [facility] Start: 02-19-2023 ambulatory Steven Carrasco Work Phone: Hematology/Oncology Comment on above: Help with payment of Luspatercept Start: 02-17-2023 End: 02-17-2023 Patient encounter procedure MENDEL OGLESBY Work Phone: [facility] Start: 02-13-2023 Telephone encounter Steven ribera DO Work Phone: Hematology/Oncology Comment on above: Patient Update Start: 02-10-2023 Telephone encounter Financial Navigator Jayy Work Phone: Financial Services Comment on above: Benefits Investigati on Start: 02-06-2023 End: 02-06-2023 ambulatory Injection Jayy [facility] Work Phone: Hematology/Oncology Comment on above: [...] 02-01-2023 Refill Sunday gibson PA-C Work Phone: [facility] Comment on above: Refill Request Start: 01-27-2023 End: 01-27-2023 ambulatory MENDEL OGLESBY Work Phone: [facility] Work Phone: Start: 01-27-2023 End: 01-27-2023 Patient encounter procedure MENDEL OGLESBY Work Phone: [facility] Start: 01-24-2023 End: 01-24-2023 ambulatory Steven Akers DO Work Phone: Hematology/Oncology Comment on above: MDS (myelodysplastic syndrome), low grade (HCC) (Primary Dx); 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); 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 (HCC); Renal cyst; Iron overload, transfusional Start: 01-24-2023 End: 01-24-2023 Patient encounter procedure Steven Akers DO Work Phone: [facility] Start: 01-24-2023 Telephone encounter Shanell STOVALL Hematology/Oncology Comment on above: Social Work Services [employer] Operations Specialist - O ther Orders Transfusion Start: 01-09-2023 End: 01-09-2023 Patient encounter procedure MENDEL OGLESBY [facility] Start: 01-08-2023 Telephone encounter Steven ribera DO Work Phone: Hematology/Oncology Comment on above: Transfusion Start: 01-08-2023 End: 01-08-2023 ambulatory Steven Akers DO Work Phone: Hematology/Oncology Comment on above: MDS (myelodysplastic syndrome), low grade (HCC) (Primary Dx); 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 (HCC) Start: 01-08-2023 End: 01-08-2023 Patient encounter procedure Steven Akers DO Work Phone: [facility] Start: 01-07-2023 Orders Only Steven Pepper O Work Phone: Hematology/Oncology Comment on above: MDS (myelodysplastic syndrome), low grade (HCC) (Primary Dx); Macrocytic anemia; 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 (HCC) Start: 12-23-2022 Ernstill Sunday gibson PA-C Work Phone: [facility] Comment on above: Refill Request Start: 12-19-2022 End: 12-19-2022 Patient encounter procedure MENDEL OGLESBY Work Phone: [facility] Start: 12-18-2022 End: 12-18-2022 ambulatory Steven Akers DO Work Phone: Hematology/Oncology Comment on above: MDS (myelodysplastic syndrome), low grade (HCC) (Primary Dx); Macrocytic anemia; 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 (HCC); Renal cyst; Iron overload, transfusional Start: 12-18-2022 End: 12-18-2022 Patient encounter procedure Steven Akers DO Work Phone: [facility] Start: 12-18-2022 Telephone encounter Steven ribera DO Work Phone: Hematology/Oncology Comment on above: Transfusion Start: 12-17-2022 Orders Only Steven Carrasco Work Phone: Hematology/Oncology Comment on above: MDS (myelodysplastic syndrome), low grade (HCC) (Primary Dx); 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 (HCC); Splenomegaly Start: 12-10-2022 End: 12-10-2022 Subsequent hospital visit by physician [facility] (I-Stat) Work Phone: Cat Scan [...] encounter procedure Steven Akers DO Work Phone: [facility] Start: 11-25-2022 Orders Only Steven Carrasco Work Phone: Hematology/Oncology Comment on above: MDS (myelodysplastic syndrome), low grade (HCC) (Primary Dx); 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 (HCC) Start: 11-13-2022 Registered Recurring MENDEL Perdomo PA Work Phone: [facility] Start: 11-13-2022 End: 11-13-2022 Patient encounter procedure MENDEL OGLESBY Work Phone: [facility] Start: 10-29-2022 Telephone encounter Steven ribera DO Work Phone: Hematology/Oncology Comment on above: Patient Question Start: 10-10-2022 End: 10-10-2022 Patient encounter procedure PA NA Carter PA Work Phone: [facility] Start: 06-21-2022 Telephone encounter Sunday Carter PA-C Work Phone: [facility] Comment on above: Patient Update Start: 05-31-2022 Telephone encounter Sunday Carter PA-C Work Phone: [facility] Comment on above: Patient Update; Orde rs Start: 05-20-2022 Telephone encounter Sunday Carter PA-C Work Phone: [facility] Comment on above: Patient Update Start: 05-14-2022 Telephone encounter Sunday Carter PA-C Work Phone: [facility] Comment on above: Home Health Orders Start: 05-14-2022 Non-patient / Non-visit PA NA Carter PA Work Phone: [facility] Start: 05-13-2022 Non-patient / Non-visit PA NA Carter PA Work Phone: [facility] Start: 05-12-2022 Non-patient / Non-visit PA NA Carter PA Work Phone: [facility] Start: 05-11-2022 Non-patient / Non-visit PA NA Carter PA Work Phone: [facility] Start: 05-10-2022 Non-patient / Non-visit PA NA Carter PA Work Phone: [facility] Start: 05-09-2022 End: 05-14-2022 Evaluation and management of inpatient PA NA Carter PA Work Phone: [facility] Surgical 3 Start: 05-09-2022 Non-patient / Non-visit PA NA Carter PA Work Phone: [facility] Start: 05-01-2022 Registered Recurring PA NA Bar ton PA Work Phone: [facility] Start: 04-30-2022 End: 04-30-2022 Patient encounter procedure PA IRENA Bhatton PA Work Phone: [facility] Start: 04-26-2022 End: 04-26-2022 Patient encounter procedure PA NA Carter PA Work Phone: [facility] Start: 04-17-2022 End: 04-17-2022 Patient encounter procedure PA NA Carter PA Work Phone: [facility] Start: 04-02-2022 End: 04-02-2022 Patient encounter procedure PA NA Carter PA Work Phone: [facility] Start: 03-21-2022 End: 03-21-2022 Patient encounter procedure PA NA Carter PA Work Phone: [facility] Start: 03-15-2022 Non-patient / Non-visit PA NA Carter PA Work Phone: [facility] Start: 03-07-2022 End: 03-07-2022 Patient encounter procedure PA NA Carter PA Work Phone: [facility] Start: 02-15-2022 Registered Recurring PA NA Bar ton PA Work Phone: [facility] Start: 02-14-2022 End: 02-14-2022 Patient encounter procedure PA NA Carter PA Work Phone: [facility] Start: 02-02-2022 Refill Shaheed Cervantes MD Work Phone: [facility] Comment on above: Refill Request Start: 12-25-2021 End: 12-25-2021 Patient encounter procedure PA NA Carter PA Work Phone: [facility] Start: 12-18-2021 End: 12-18-2021 Patient encounter procedure MENDEL OGLESBY [facility] Start: 12-06-2021 End: 12-06-2021 Patient encounter procedure MENDEL OGLESBY Work Phone: [facility] Start: 11-23-2021 End: 11-23-2021 Patient encounter procedure MENDEL OGLESBY Work Phone: [facility] Start: 09-14-2021 End: 09-14-2021 Subsequent hospital visit by physician Xr [facility] Work Phone: Radiology Comment on above: Prostatitis, acute [ N41.0] Procedures Date Procedure Procedure Detail Performing Clinician Start: 02-10-2025 CT of abdomen and pe lvis without contrast IRENA OGLESBY Work Phone: Start: 02-10-2025 Estimated creatinine clearance IRENA OGLESBY Work Phone: Start: 02-10-2025 Urnls dip stick/tabl et reagent auto microscopy IRENA OGLESBY Work Phone: Start: 07-20-2024 Adult depression scr eening assessment Gladys Da Silva DELPHI PROGRAMMER.FACTORY REPRESENTATIVE Work Phone: Start: 06-19-2023 Plain chest X-ray MENDEL OGLESBY Work Phone: Start: 05-01-2023 Radiologic exam abdo men 1 view Sisi Blanchard DELPHI PROGRAMMER.FACTORY REPRESENTATIVE Work Phone: Start: 03-07-2023 Computed tomography of [...] Clinic Start: 08-19-2027 Diabetes Screening Diabetes Screening [facility] Start: 08-12-2027 Diabetes Screening Diabetes Screening [facility] Start: 08-05-2027 Diabetes Screening Diabetes Screening [facility] Start: 07-28-2027 Diabetes Screening Diabetes Screening [facility] Start: 07-22-2027 Diabetes Screening Diabetes Screening [facility] Start: 07-08-2027 Diabetes Screening Diabetes Screening [facility] Start: 07-01-2027 Diabetes Screening Diabetes Screening [facility] Start: 06-24-2027 Diabetes Screening Diabetes Screening [facility] Start: 06-17-2027 Diabetes Screening Diabetes Screening [facility] Start: 06-09-2027 Diabetes Screening Diabetes Screening [facility] Start: 06-03-2027 Diabetes Screening Diabetes Screening [facility] Start: 05-27-2027 Diabetes Screening Diabetes Screening [facility] Start: 05-20-2027 Diabetes Screening Diabetes Screening [facility] Start: 05-12-2027 Diabetes Screening Diabetes Screening [facility] Start: 04-21-2027 Diabetes Screening Diabetes Screening [facility] Start: 01-28-2027 Diabetes Screening Diabetes Screening [facility] Start: 02-27-2026 DIABETES SCREEN DIABETES SCREEN [facility] Start: 02-27-2026 Diabetes Screening Diabetes Screening [facility] Start: 02-06-2026 DIABETES SCREEN DIABETES SCREEN [facility] Start: 01-27-2026 Covid-19 Vaccine (#1) Covid-19 Vaccine (#1) [facility] Comment on above: Postponed from 1950 (Declined at t his time) Start: 01-27-2026 RSV Vaccine (1 - 1-dose 75+ series) RSV Vaccine (1 - 1-dose 75+ series) [facility] Comment on above: Postponed from 2019 (Declined at t his time) Start: 01-27-2026 Shingrix Vaccine (1 of 2) Shingrix Vaccine (1 of 2) [facility] Comment on above: Postponed from 09/01/2013 (Declined at t his time) Start: 11-26-2025 DIABETES SCREEN DIABETES SCREEN [facility] Start: 09-09-2025 End: 09-09-2025 Patient encounter procedure Departed Clinical -Medical Out Work Phone: Start: 09-09-2025 Administration of blood product [facility] Start: 09-09-2025 [facility] Start: 09-08-2025 End: 09-08-2025 ambulatory 09/08/2025 11:00 AM EDT Results Only [facility] [address] [place] [place] [address] (SO)CBC(?TX)* [facility] Comment on above: (SO)CBC(?TX)* Start: 09-01-2025 End: 09-01-2025 ambulatory [facility] Comment on above: CMP 2MO OV/EARLY LABS Start: 08-26-2025 Administration of blood product [facility] Start: 08-26-2025 [facility] Start: 08-25-2025 End: 08-25-2025 ambulatory 08/25/2025 11:00 AM EDT Results Only [facility] [address] [place] [address] (SO)CBC(?TX)* [facility] Comment on above: (SO)CBC(?TX)* Start: 08-12-2025 Administration of blood product [facility] Start: 08-12-2025 [facility] Start: 08-11-2025 End: 08-11-2025 ambulatory 08/11/2025 11:00 AM EDT Results Only [facility] [address] [place] [address] (SO)CBC(?TX)* [facility] Comment on above: (SO)CBC(?TX)* Start: 07-29-2025 Administration of blood product [facility] Start: 07-29-2025 [facility] Start: 07-28-2025 End: 07-28-2025 Patient encounter procedure 07/28/2025 11:20 AM EDT Office Visit [facility] [place] [address] [place] [address] Gladys Da Silva APRN.FACTORY REPRESENTATIVE [address] [place] [address] Physical [facility] [place] Comment on above: Physical Start: 07-28-2025 End: 07-28-2025 ambulatory 07/28/2025 10:00 AM EDT Results Only [place] [facility] [address] [place] [address] (SO)CBC(?TX)* [facility] Comment on above: (SO)CBC(?TX)* Start: 07-20-2025 Anxiety Screening Anxiety Screening [facility] Start: 07-20-2025 Depression Screening Depression Screening [facility] Start: 07-15-2025 Administration of blood product [facility] Start: 07-15-2025 [facility] Start: 07-14-2025 End: 07-14-2025 ambulatory 07/14/2025 11:00 AM EDT Results [facility] [address] [place] [address] (SO)CBC(?TX)* [facility] Comment on above: (SO)CBC(?TX)* Start: 07-11-2025 Influenza vaccination [facility] Start: 07-01-2025 Administration of blood product [facility] Start: 07-01-2025 [facility] Start: 06-30-2025 End: 06-30-2025 ambulatory [facility] Comment on above: Q2WK (SO)CBC(S)(?TX)* 2MO OV* Start: 06-17-2025 Administration of blood product [facility] Start: 06-17-2025 [facility] Start: 06-16-2025 End: 06-16-2025 ambulatory 06/16/2025 11:00 AM EDT Results [facility] [address] [place] [place] [address] Q2WK (SO)CBC(S)(?TX)* [facility] Comment on above: Q2WK (SO)CBC(S)(?TX)* Start: 06-03-2025 Administration of blood product [facility] Start: 06-03-2025 [facility] Start: 06-02-2025 End: 06-02-2025 ambulatory 06/02/2025 11:00 AM EDT Results Only [place] [facility] [address] [place] [place] [address] Q2WK (SO)CBC(S)(?TX)* [facility] Comment on above: Q2WK (SO)CBC(S)(?TX)* Start: 05-20-2025 Administration of blood product [facility] Start: 05-20-2025 [facility] Start: 05-19-2025 End: 05-19-2025 ambulatory 05/19/2025 11:00 AM EDT Results Only [place] [facility] [address] [place] [place] [address] Q2WK (SO)CBC(S)(?TX)* [facility] Comment on above: Q2WK (SO)CBC(S)(?TX)* Start: 05-09-2025 Influenza vaccination Influenza Vaccine (#1) Alberto quinn Comment on above: Postponed from 07/11/2024 (Declined at t his time) Start: 05-06-2025 Administration of blood product [facility] Start: 05-06-2025 [facility] Start: 05-05-2025 End: 05-05-2025 Patient encounter procedure 05/05/2025 11:30 AM EDT Appointment Radiology [address] [place] [address] Dx: MDS (myelodysplastic syndrome), low grade (HCC) [D46.Z]; Iron overload [E83.19]; Splenomegaly [R16.1] Radiology Comment on above: Dx: MDS (myelodysplastic syndrome), low grade (HCC) [D46.Z]; Iron overload [E83.19]; Splenomegaly [R16.1] Start: 05-05-2025 End: 05-05-2025 ambulatory 05/05/2025 11:00 AM EDT Results Only [place] [facility] [address] [place] [place] [address] Q2WK (SO)CBC(S)(?TX)* [facility] Comment on above: Q2WK (SO)CBC(S)(?TX)* Start: 04-22-2025 Administration of blood product [facility] Start: 04-22-2025 [facility] Start: 04-21-2025 End: 04-21-2025 ambulatory [facility] Comment on above: CBC/?TRANSF* 2MO OV* (SO)CBC(?TX)* Start: 04-08-2025 Administration of blood product [facility] Start: 04-08-2025 [facility] Start: 04-07-2025 End: 04-07-2025 [facility] Comment on above: CBC/?TRANSF* (SO)CBC(?TX)* Start: 04-05-2025 End: 04-05-2025 Patient encounter procedure 04/05/2025 9:30 AM EDT Office Visit Urology [address] [place] [address] Curtis Diaz PA-C [address] [id number] F/U BPH / MEDS Urology Comment on above: F/U BPH / MEDS Start: 03-25-2025 Administration of blood product [facility] Start: 03-25-2025 [facility] Start: 03-24-2025 End: 06-23-2025 Thyrotropin [Units/volume] in Serum or Plasma THYROID STIMULATING HORMONE Lab Routine Subclinical hypothyroidism Expected: 03/24/2025, Expires: 06/23/2025 [facility] Work Phone: Comment on above: Expected: 03/24/2025, Expires: Start: 03-24-2025 End: 03-24-2025 ambulatory [facility] Comment on above: CBC/?TRANSF* (SO)CBC(?TX)* Start: 03-11-2025 Administration of blood product [facility] Start: 03-11-2025 [facility] Start: 03-10-2025 End: 03-10-2025 ambulatory 03/10/2025 11:00 AM EDT Results Only [place] [facility] [address] [place] [address] [place] [address] CBC/?TRANSF* [facility] Comment on above: CBC/?TRANSF* Start: 02-25-2025 Administration of blood product [facility] Start: 02-25-2025 [facility] Start: 02-11-2025 Administration of blood product [facility] Start: 02-11-2025 [facility] Start: 02-10-2025 [facility] Start: 02-10-2025 End: 02-10-2025 ambulatory [facility] Comment on above: CBC(?TX)/CMP(S)/B12/MMA/Serum folate/Philip ritin/Myeloma labs(no urine)* LAB EARLY2 MO OV* CBC(?TX)/CMP(S)/B12/ MMA/Serum folate* Start: 01-28-2025 Administration of blood product [facility] Start: 01-28-2025 [facility] Start: 01-27-2025 End: 04-28-2025 Thyrotropin [Units/volume] in Serum or Plasma THYROID STIMULATING HORMONE Lab Routine Chronic fatigue Expected: 01/27/2025, Expires: 04/28/2025 [facility] Work Phone: Comment on above: Expected: 01/27/2025, Expires: Start: 01-27-2025 End: 01-27-2025 Patient encounter procedure 01/27/2025 11:40 AM EDT Office Visit Family [facility] [place] [address] [place] [address] Gladys Da Silva APRN.FACTORY REPRESENTATIVE [address] [place] [address] 6 month follow up Family Medicine [place] Comment on above: 6 month follow up Start: 01-27-2025 End: 01-27-2025 ambulatory 01/27/2025 11:00 AM EDT Results Only [facility] [address] [place] [place] [address] CBC(?TX)* [facility] Comment on above: CBC(?TX)* Start: 01-18-2025 End: 01-18-2025 Patient encounter procedure [facility] Comment on above: 6 month follow up Start: 01-14-2025 Administration of blood product [facility] Start: 01-14-2025 [facility] Start: 01-13-2025 End: 01-13-2025 ambulatory 01/13/2025 11:00 AM EST Results Only [place] [facility] [address] [place] [address] [place] [address] CBC(?TX)* [facility] Comment on above: CBC(?TX)* Start: 12-31-2024 Administration of blood product [facility] Start: 12-31-2024 [facility] Start: 12-30-2024 End: 12-30-2024 ambulatory 12/30/2024 11:00 AM EST Results Only [facility] [address] [place] [address] [place] [address] CBC(?TX)* [facility] Comment on above: CBC(?TX)* Start: 12-20-2024 DIABETES SCREEN DIABETES SCREEN [facility] Start: 12-17-2024 Administration of blood product [facility] Start: 12-17-2024 [facility] Start: 12-16-2024 End: 12-16-2024 ambulatory [facility] Comment on above: CBC/(?TX)/CMP/B12/MMA/Serum folate/Jac tin/Myeloma labs (no urine)* 2MO OV/CBC/(?TX)/CMP /B12/MMA/Serum folate/Ferritin/Myeloma labs (no urine) Start: 12-03-2024 Administration of blood product [facility] Start: 12-03-2024 [facility] Start: 12-02-2024 End: 12-02-2024 ambulatory [facility] Comment on above: (SO)CBC(?TX)/CMP(S)* QWK DACOGEN/LAB REBECCA Y/AUTH EXP ?* AM APPTS AFTER Start: 11-25-2024 End: 11-25-2024 [facility] Comment on above: (SO)CBC(?TX)/CMP(S)* QWK DACOGEN/LAB REBECCA Y/AUTH EXP ?* AM APPTS AFTER Start: 11-18-2024 End: 11-18-2024 [facility] Comment on above: (SO)CBC(?TX)/CMP(S)* QWK DACOGEN/LAB REBECCA Y/AUTH EXP ?* AM APPTS AFTER Start: 11-12-2024 End: 11-12-2024 [facility] Comment on above: (SO)CBC(?TX)/CMP(S)* QWK DACOGEN/LAB REBECCA Y/AUTH EXP ?* AM APPTS AFTER Start: 11-12-2024 Administration of blood product [facility] Start: 11-12-2024 [facility] Start: 11-10-2024 Advance Directive Discussion Advance Directive Discussion [facility] Start: 11-10-2024 Medicare Advantage Annual Wellness Visit Medicare Advantage Annual Wellness Visit [facility] Start: 11-04-2024 End: 11-04-2024 [facility] Comment on above: (SO)CBC(?TX)/CMP(S)* QWK DACOGEN/LAB REBECCA Y/AUTH EXP 11/09/24* AM APPTS AFTER Start: 10-27-2024 End: 10-27-2024 ambulatory 10/27/2024 11:30 AM EST Visit (SP) Office Hematology/Oncology [address], [place] [address] Steven Akers DO [address] [place], [place] [address] 3 MO OV / (SO)CBC(?TX)/CMP(S)* Hematology/Oncolog y Comment on above: 3 MO OV / (SO)CBC(?TX)/CMP(S)* Start: 10-27-2024 End: 10-27-2024 ambulatory [facility] Comment on above: (SO)CBC(?TX)/CMP(S)* QWK DACOGEN/LAB REBECCA Y/AUTH EXP 11/09/24* AM APPTS AFTER 930 Start: 10-22-2024 Administration of blood product [facility] Start: 10-22-2024 [facility] Start: 10-21-2024 End: 10-21-2024 ambulatory [facility] Comment on above: (SO)CBC(?TX)/CMP(S)* QWK DACOGEN/LAB REBECCA Y/AUTH EXP 11/09/24* AM APPTS AFTER 930 Start: 10-20-2024 End: 10-20-2024 ambulatory [facility] Comment on above: (SO)CBC(?TX)/CMP(S)* QWK DACOGEN/LAB REBECCA Y/AUTH EXP 11/09/24* AM APPTS AFTER 930 Start: 10-20-2024 End: 10-20-2024 ambulatory 10/20/2024 11:45 AM EST Results Only [facility] [address] [place] [address] (SO)CBC(?TX)/CMP(S) [facility] Comment on above: (SO)CBC(?TX)/CMP(S) Start: 10-13-2024 End: 10-13-2024 ambulatory [facility] Comment on above: (SO)CBC(?TX)/CMP(S)* 3 MO OV/LAB&CHEMO TO DAY* QWK DACOGEN/LAB&OV T LYNNETTE/AUTH EXP 11/09/24* AM APPTS AFTER 930 Start: 10-06-2024 End: 10-06-2024 ambulatory [facility] Comment on above: (SO)CBC(?TX)/CMP(S)* QWK DACOGEN/LAB REBECCA Y/AUTH EXP 11/09/24* 3MO OV DUE DEC -- AM APPTS AFTER 930 Start: 10-01-2024 Administration of blood product [facility] Start: 10-01-2024 [facility] Start: 09-30-2024 End: 09-30-2024 ambulatory [facility] Comment on above: (SO)CBC(?TX)/CMP(S)* QWK DACOGEN/LAB REBECCA Y/AUTH EXP 11/09/24* 3MO OV DUE DEC -- AM APPTS AFTER 930 Start: 09-30-2024 End: 09-30-2024 ambulatory 09/30/2024 9:30 AM EST Results Only [facility] [address] [place] [address] (SO)CBC(?TX)/CMP(S)* [facility] Comment on above: (SO)CBC(?TX)/CMP(S)* Start: 09-27-2024 End: 12-27-2024 Thyroxine (T4) free [Mass/volume] in Serum or Plasma T4 FREE/FREE THYROXINE Lab Routine Subclinical hypothyroidism Expected: 09/27/2024, Expires: 12/27/2024 [facility] Comment on above: Expected: 09/27/2024, Expires: Start: 09-27-2024 End: 12-27-2024 Triiodothyronine (T3) Free [Mass/volume] in Serum or Plasma T3, FREE Lab Routine Subclinical hypothyroidism Expected: 09/27/2024, Expires: 12/27/2024 [facility] Comment on above: Expected: 09/27/2024, Expires: Start: 09-26-2024 End: 12-26-2024 Thyrotropin [Units/volume] in Serum or Plasma THYROID STIMULATING HORMONE Lab Routine Subclinical hypothyroidism Expected: 09/26/2024, Expires: 12/26/2024 [facility] Work Phone: Comment on above: Expected: 09/26/2024, Expires: Start: 09-24-2024 Administration of blood product [facility] Start: 09-24-2024 [facility] Start: 09-23-2024 End: 09-23-2024 ambulatory [facility] Comment on above: (SO)CBC(?TX)/CMP(S)* QWK DACOGEN/LAB REBECCA Y/AUTH EXP 11/09/24* 3MO OV DUE DEC -- AM APPTS AFTER 930 Start: 09-16-2024 End: 09-16-2024 ambulatory [facility] Comment on above: (SO)CBC(?TX)/CMP(S)* QWK DACOGEN/LAB REBECCA Y/AUTH EXP 11/09/24* 3MO OV DUE DEC -- AM APPTS AFTER 930 Start: 09-09-2024 End: 09-09-2024 ambulatory [facility] Comment on above: (SO)CBC(?TX)/CMP(S)* QWK DACOGEN/LAB REBECCA Y/AUTH EXP 11/09/24* 3MO OV DUE DEC -- AM APPTS AFTER 0 NEEDS PAIN CONTRACT SIGNED SEE PHONE NOTE 09/02 QWK DACOGEN/LAB EARLY/AUTH EXP 11/09/24* 3MO OV DUE DEC -- AM APPTS AFTER 930 Start: 09-08-2024 End: 09-08-2024 ambulatory [facility] Comment on above: (SO)CBC(?TX)/CMP(S)* QWK DACOGEN/LAB REBECCA Y/AUTH EXP 11/09/24* 3MO OV DUE DEC AM APPTS AFTER 0 Start: 09-02-2024 End: 09-02-2024 ambulatory [facility] Comment on above: (SO)CBC(?TX)/CMP(S)* QWK DACOGEN/LAB REBECCA Y/AUTH EXP 11/09/24* 3MO OV DUE DEC -- THURS AM APPTS AFTER 930 Start: 09-01-2024 End: 09-01-2024 ambulatory [facility] Comment on above: (SO)CBC(?TX)/CMP(S)* QWK DACOGEN/LAB REBECCA Y/AUTH EXP 11/09/24* 3MO OV DUE DEC AM APPTS AFTER 930 Start: 08-26-2024 End: 08-26-2024 ambulatory 08/26/2024 11:30 AM EDT Infusion Center Hematology/Oncology [address] [place] [address] QWK DACOGEN/LAB EARLY/AUTH EXP 11/09/24* 3MO OV DUE DEC -- THURS AM APPTS AFTER 930 Hematology/Oncolog y Comment on above: QWK DACOGEN/LAB EARLY/AUTH EXP 11/09/24* 3MO OV DUE DEC -- THURS AM APPTS AFTER 930 Start: 08-26-2024 End: 08-26-2024 ambulatory [facility] Comment on above: (SO)CBC(?TX)/CMP(S)* QWK DACOGEN/LAB REBECCA Y/AUTH EXP 11/09/24* 3MO OV DUE DEC -- THURS AM APPTS AFTER 930 Start: 08-25-2024 End: 08-25-2024 [facility] Comment on above: (SO)CBC(?TX)/CMP(S)* QWK DACOGEN/LAB REBECCA Y/AUTH EXP 11/09/24* 3MO OV DUE DEC AM APPTS AFTER 930 Start: 08-19-2024 End: 08-19-2024 ambulatory [facility] Comment on above: (SO)CBC(?TX)/CMP(S)* QWK DACOGEN/LAB REBECCA Y/AUTH EXP 11/09/24* 3MO OV DUE DEC -- THURS AM APPTS AFTER 930 Start: 08-18-2024 End: 08-18-2024 ambulatory [facility] Comment on above: (SO)CBC(?TX)/CMP(S)* QWK DACOGEN/LAB REBECCA Y/AUTH EXP 11/09/24* 3MO OV DUE DEC AM APPTS AFTER 930 Start: 08-12-2024 End: 08-12-2024 ambulatory 08/12/2024 10:30 AM EDT Infusion Center Hematology/Oncology [address] [place] [address] [place] [address] QWK DACOGEN/LAB EARLY/AUTH EXP 11/09/24* 3MO OV DUE DEC -- THURS AM APPTS AFTER 930 Hematology/Oncolog y Comment on above: QWK DACOGEN/LAB EARLY/AUTH EXP 11/09/24* 3MO OV DUE DEC -- THURS AM APPTS AFTER 930 Start: 08-12-2024 End: 08-12-2024 ambulatory [facility] Comment on above: (SO)CBC(?TX)/CMP(S)* QWK DACOGEN/LAB REBECCA Y/AUTH EXP 11/09/24* 3MO OV DUE DEC -- THURS AM APPTS AFTER 930 Start: 08-11-2024 End: 08-11-2024 ambulatory [facility] Comment on above: (SO)CBC(?TX)/CMP(S)* QWK DACOGEN/LAB REBECCA Y/AUTH EXP 11/09/24* 3MO OV DUE DEC AM APPTS AFTER 930 Start: 08-05-2024 End: 08-05-2024 ambulatory [facility] Comment on above: (SO)CBC(?TX)/CMP(S)* QWK DACOGEN/LAB REBECCA Y/AUTH EXP 11/09/24* 3MO OV DUE DEC -- THURS AM APPTS AFTER 930 Start: 08-04-2024 End: 08-04-2024 ambulatory [facility] Comment on above: (SO)CBC(?TX)/CMP(S)* QWK DACOGEN/LAB REBECCA Y/AUTH EXP 11/09/24* 3MO OV DUE DEC AM APPTS AFTER 930 Start: 07-28-2024 End: 10-27-2024 Methylmalonate [Moles/volume] in Serum or Plasma [facility] Work Phone: Comment on above: Expected: 07/28/2024, Expires: Start: 07-28-2024 End: 07-28-2024 ambulatory [facility] Comment on above: (SO)CBC(?TX)/CMP(S)* 3 MO OV/LAB&TREATMEN T TODAY* QWK DACOGEN/LAB&OV T LYNNETTE/AUTH EXP 11/09/24* 3MO OV DUE DEC AM APPTS AFTER 930 Start: 07-22-2024 End: 07-22-2024 ambulatory [facility] Comment on above: (SO)CBC(?TX)/CMP(S)* (SO)CBC(?TX)/CMP(S)/ QWK DACOGEN/AUTH EXP 11/09/24* 3MO OV DUE SEPT AM APPTS AFTER 930 Start: 07-20-2024 End: 10-19-2024 Cobalamin (Vitamin B12) [Mass/volume] in Serum or Plasma VITAMIN B12 Lab Routine Polyneuropathy in other diseases classified elsewhere (HCC) MDS (myelodysplastic syndrome), low grade (HCC) Expected: 07/20/2024, Expires: 10/19/2024 [facility] Comment on above: Expected: 07/20/2024, Expires: Start: 07-20-2024 End: 10-19-2024 Hemoglobin A1c in Blood HEMOGLOBIN A1C Lab Routine Polyneuropathy in other diseases classified elsewhere (HCC) MDS (myelodysplastic syndrome), low grade (HCC) Chronic fatigue Expected: 07/20/2024, Expires: 10/19/2024 [facility] Work Phone: Comment on above: Expected: 07/20/2024, Expires: 4 Start: 07-20-2024 End: 10-19-2024 Magnesium [Mass/volume] in Serum or Plasma MAGNESIUM Lab Routine Polyneuropathy in other diseases classified elsewhere (HCC) MDS (myelodysplastic syndrome), low grade (HCC) Expected: 07/20/2024, Expires: 10/19/2024 [facility] Comment on above: Expected: 07/20/2024, Expires: 4 Start: 07-20-2024 End: 10-19-2024 Thyrotropin [Units/volume] in Serum or Plasma THYROID STIMULATING HORMONE Lab Routine MDS (myelodysplastic syndrome), low grade (HCC) Chronic fatigue Expected: 07/20/2024, Expires: 10/19/2024 [facility] Comment on above: Expected: 07/20/2024, Expires: 4 Start: 07-20-2024 End: 07-20-2024 Patient encounter procedure [facility] [place] Comment on above: 6 month follow up Start: 07-15-2024 End: 07-15-2024 ambulatory [facility] Comment on above: (SO)CBC(?TX)/CMP(S)* (SO)CBC(?TX)/CMP(S)/ QWK DACOGEN/AUTH EXP 11/09/24* 3MO OV DUE SEPT (SO)CBC(?TX)/CMP(S)/ QWK DACOGEN/AUTH EXP 11/09/24* 3MO OV DUE SEPT AM APPTS AFTER 930 Start: 07-11-2024 Influenza vaccination [facility] Start: 07-08-2024 End: 07-08-2024 ambulatory [facility] Comment on above: (SO)CBC(?TX)/CMP(S)* (SO)CBC(?TX)/CMP(S)/ QWK DACOGEN/AUTH EXP 11/09/24* 3MO OV DUE SEPT (SO)CBC(?TX)/CMP(S)/ QWK DACOGEN/AUTH EXP 11/09/24* 3MO OV DUE SEPT AM APPTS AFTER 930 Start: 07-01-2024 End: 07-01-2024 ambulatory [facility] Comment on above: (SO)CBC(?TX)/CMP(S)* (SO)CBC(?TX)/CMP(S)/ QWK DACOGEN/AUTH EXP 11/09/24* 3MO OV DUE SEPT PM APPT OK FOR THIS DAY Start: 06-24-2024 End: 06-24-2024 ambulatory Hematology/Oncolog y Comment on above: (SO)CBC(?TX)/CMP(S)/QWK DACOGEN/AUTH EXP 11/09/24* 3MO OV DUE SEPT Start: 06-24-2024 End: 06-24-2024 Patient encounter procedure 06/24/2024 11:30 AM EDT Appointment Radiology [address] [place], [place] [id number] Splenomegaly [R16.1] Radiology Comment on above: Splenomegaly [R16.1] Start: 06-24-2024 End: 06-24-2024 [facility] Comment on above: (SO)CBC(?TX)* (SO)CBC(?TX)/QWK DAC OGEN/AUTH EXP 11/09/24* 3MO OV DUE SEPT (SO)CBC(?TX)/CMP* (SO)CBC(?TX)/CMP(S)* (SO)CBC(?TX)/CMP(S)/ QWK DACOGEN/AUTH EXP 11/09/24* 3MO OV DUE SEPT AM APPTS AFTER 930 Start: 06-24-2024 End: 06-24-2024 ambulatory 06/24/2024 9:30 AM EDT Results [facility] [address] [place] [address] (SO)CBC(?TX)/CMP(S)* [place] [facility] Comment on above: (SO)CBC(?TX)/CMP(S)* Start: 06-17-2024 End: 06-17-2024 ambulatory [place] [facility] Comment on above: (SO)CBC(?TX)* (SO)CBC(?TX)/QWK DAC OGEN/AUTH EXP 11/09/24* 3MO OV DUE SEPT (SO)CBC(?TX)/CMP* (SO)CBC(?TX)/CMP(S)/ QWK DACOGEN/AUTH EXP 11/09/24* 3MO OV DUE SEPT (SO)CBC(?TX)/CMP(S)* (SO)CBC(?TX)/CMP(S)/ QWK DACOGEN/AUTH EXP 11/09/24* 3MO OV DUE SEPT AM APPTS AFTER 930 Start: 06-10-2024 End: 06-10-2024 ambulatory [place] [facility] Comment on above: (SO)CBC(?TX)* (SO)CBC(?TX)/QWK DAC OGEN/AUTH EXP 11/09/24* 3MO OV DUE SEPT (SO)CBC(?TX)/CMP* (SO)CBC(?TX)/CMP(S)* (SO)CBC(?TX)/CMP(S)/ QWK DACOGEN/AUTH EXP 11/09/24* 3MO OV DUE SEPT Start: 06-10-2024 End: 06-10-2024 [facility] Comment on above: (SO)CBC(?TX)* (SO)CBC(?TX)/QWK DAC OGEN/AUTH EXP 11/09/24* 3MO OV DUE JUL Start: 06-09-2024 End: 06-09-2024 ambulatory 06/09/2024 10:30 AM EDT [facility] Hematology/Oncology [address] [place] [address] [place] [address] (SO)CBC(?TX)/CMP(S)/QWK DACOGEN/AUTH EXP 11/09/24* 3MO OV DUE SEPT AM APPTS AFTER 930 Hematology/Oncolog y Comment on above: (SO)CBC(?TX)/CMP(S)/QWK DACOGEN/AUTH EXP 11/09/24* 3MO OV DUE SEPT AM APPTS AFTER 930 Start: 06-09-2024 End: 06-09-2024 ambulatory [place] [facility] Comment on above: (SO)CBC(?TX)/CMP(S)* (SO)CBC(?TX)/CMP(S)/ QWK DACOGEN/AUTH EXP 11/09/24* 3MO OV DUE JUL Start: 06-03-2024 End: 06-03-2024 ambulatory 06/03/2024 2:30 PM EDT Results Only [place] [facility] [address] [place] [address] (SO)CBC(?TX)/CMP(S)* [place] [facility] Comment on above: (SO)CBC(?TX)/CMP(S)* Start: 06-03-2024 End: 06-03-2024 ambulatory [place] [facility] Comment on above: (SO)CBC(?TX)* (SO)CBC(?TX)/QWK DAC OGEN/AUTH EXP 11/09/24* 3MO OV DUE SEPT (SO)CBC(?TX)/CMP* (SO)CBC(?TX)/CMP(S)* (SO)CBC(?TX)/CMP(S)/ QWK DACOGEN/AUTH EXP 11/09/24* 3MO OV DUE JUL Start: 06-03-2024 End: 06-03-2024 [facility] Comment on above: (SO)CBC(?TX)* (SO)CBC(?TX)/QWK DAC OGEN/AUTH EXP 11/09/24* 3MO OV DUE SEPT (SO)CBC(?TX)/CMP(S)/ QWK DACOGEN/AUTH EXP 11/09/24* 3MO OV DUE JUL Start: 05-27-2024 End: 05-27-2024 [facility] Comment on above: (SO)CBC(?TX)* (SO)CBC(?TX)/QWK DAC OGEN/AUTH EXP 11/09/24* 3MO OV DUE SEPT (SO)CBC(?TX)/CMP* (SO)CBC(?TX)/CMP(S)* (SO)CBC(?TX)/CMP(S)/ QWK DACOGEN/AUTH EXP 11/09/24* 3MO OV DUE JUL Start: 05-27-2024 End: 05-27-2024 [facility] Comment on above: (SO)CBC(?TX)* (SO)CBC(?TX)/QWK DAC OGEN/AUTH EXP 11/09/24* 3MO OV DUE JUL Start: 05-20-2024 End: 05-20-2024 [facility] Comment on above: (SO)CBC(?TX)* (SO)CBC(?TX)/QWK DAC OGEN/AUTH EXP 11/09/24* 3MO OV DUE SEPT (SO)CBC(?TX)/CMP* (SO)CBC(?TX)/CMP(S)* (SO)CBC(?TX)/CMP(S)/ QWK DACOGEN/AUTH EXP 11/09/24* 3MO OV DUE JUL Start: 05-20-2024 End: 05-20-2024 [facility] Comment on above: (SO)CBC(?TX)* (SO)CBC(?TX)/QWK DAC OGEN/AUTH EXP 11/09/24* 3MO OV DUE JUL Start: 05-12-2024 End: 05-12-2024 [facility] Comment on above: (SO)CBC(?TX)* (SO)CBC(?TX)/QWK DAC OGEN/AUTH EXP 11/09/24* (SO)CBC(?TX)?CMP* (SO)CBC(?TX)/CMP(S)* (SO)CBC(?TX)/CMP(S)/ QWK DACOGEN/AUTH EXP 11/09/24* Start: 05-09-2024 Influenza vaccination Influenza Vaccine (#1) Dominguez Alejo quinn Comment on above: Postponed from 07/11/2023 (Declined at t his time) Start: 05-06-2024 End: 05-06-2024 ambulatory [facility] Comment on above: (SO)CBC(?TX)* (SO)CBC(?TX)/QWK DAC OGEN/AUTH EXP 11/09/24* Start: 04-29-2024 End: 04-29-2024 ambulatory [facility] Comment on above: (SO)CBC(?TX)* (SO)CBC(?TX)/QWK DAC OGEN/AUTH EXP 11/09/24* Start: 04-21-2024 End: 04-21-2024 ambulatory [facility] Comment on above: CBC ?TX/CMP/VIT B12/FOLATE/IRON STUDIES/ MM labs 3 MO OV/LAB EARLY/TR EATMENT TODAY* QWK DACOGEN/LAB&OV E HAILY/AUTH EXP 11/09/24* Start: 04-15-2024 End: 04-15-2024 ambulatory [facility] Comment on above: (SO)CBC(?TX)* (SO)CBC(?TX)/QWK DAC OGEN/AUTH EXP 11/09/24*CMP/VIT B12/FOLATE/IRON STUDIES/MM labs/OV due 04/22/24 - [facility] Start: 04-08-2024 End: 04-08-2024 ambulatory [facility] Comment on above: (SO)CBC(?TX)* (SO)CBC(?TX)/QWK DAC OGEN/AUTH EXP 11/09/24*CMP/VIT B12/FOLATE/IRON STUDIES/MM labs/OV due 04/22/24 - [facility] Start: 04-03-2024 COVID-19 VACCINE (#1) COVID-19 VACCINE (#1) [facility] Comment on above: Postponed from 1944 (Declined at t his time) Postponed from 05/18 (Declined at this time) Start: 04-03-2024 SHINGRIX VACCINE (1 of 2) SHINGRIX VACCINE (1 of 2) [facility] Comment on above: Postponed from 09/01/2013 (Declined at t his time) Start: 04-03-2024 Urine microalbumin profile [facility] Comment on above: Postponed from 1963 (Insurance Cov erage) Start: 04-01-2024 End: 04-01-2024 ambulatory [facility] Comment on above: (SO)CBC(?TX)* (SO)CBC(?TX)/QWK DAC OGEN/AUTH EXP 11/09/24*CMP/VIT B12/FOLATE/IRON STUDIES/MM labs/OV due 04/22/24 - [facility] Start: 03-25-2024 End: 03-25-2024 ambulatory [facility] Comment on above: (SO)CBC(?TX)* (SO)CBC(?TX)/QWK DAC OGEN/AUTH EXP 11/09/24*CMP/VIT B12/FOLATE/IRON STUDIES/MM labs/OV due 04/22/24 - [facility] Start: 03-22-2024 Administration of blood product [facility] Start: 03-22-2024 [facility] Start: 03-19-2024 End: 03-19-2024 ambulatory [facility] Comment on above: (SO)CBC(?TX)* (SO)CBC(?TX)/QWK DAC OGEN/AUTH EXP 11/09/24*CMP/VIT B12/FOLATE/IRON STUDIES/MM labs/OV due 04/22/24 - [facility] Start: 03-18-2024 End: 03-18-2024 [facility] Comment on above: (SO)CBC(?TX)* (SO)CBC(?TX)/QWK DAC OGEN/AUTH EXP 11/09/24*CMP/VIT B12/FOLATE/IRON STUDIES/MM labs/OV due 04/22/24 - [facility] Start: 03-16-2024 End: 03-16-2024 Patient encounter procedure Urology Comment on above: 1 year f/u 1 year f/u BPH Start: 03-11-2024 End: 03-11-2024 ambulatory [facility] Comment on above: (SO)CBC(?TX)* (SO)CBC(?TX)/QWK DAC OGEN/AUTH EXP 11/09/24* CMP/VIT B12/FOLATE/IRON STUDIES/MM labs/OV due 04/22/24 - [facility] Start: 03-05-2024 Administration of blood product [facility] Start: 03-05-2024 [facility] Start: 02-20-2024 Administration of blood product [facility] Start: 02-20-2024 [facility] Start: 01-30-2024 Administration of blood product [facility] Start: 01-30-2024 [facility] Start: 01-29-2024 End: 04-29-2024 [id number] [Mass/volume] in Serum or Plasma B2 MICROGLOBULIN B Lab Routine MDS (myelodysplastic syndrome), low grade (HCC) 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 (HCC) Iron overload, transfusional Idiopathic aplastic anemia (HCC) Expected: 01/29/2024, Expires: 04/29/2024 [facility] Work Phone: Comment on above: Expected: 01/29/2024, Expires: 4 Start: 01-29-2024 End: 04-29-2024 CBC W Auto Differential panel - Blood CBC + DIFF Lab STAT MDS (myelodysplastic syndrome), low grade (HCC) 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 (HCC) Iron overload, transfusional Idiopathic aplastic anemia (HCC) Expected: 01/29/2024, Expires: 04/29/2024 [facility] Work Phone: Comment on above: Expected: 01/29/2024, Expires: 4 Start: 01-29-2024 End: 04-29-2024 Comprehensive metabolic 2000 panel - Serum or Plasma COMP METABOLIC PANEL Lab STAT MDS (myelodysplastic syndrome), low grade (HCC) 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 (HCC) Iron overload, transfusional Idiopathic aplastic anemia (HCC) Expected: 01/29/2024, Expires: 04/29/2024 [facility] Work Phone: Comment on above: Expected: 01/29/2024, Expires: Start: 01-29-2024 End: 04-29-2024 Ferritin [Mass/volume] in Serum or Plasma FERRITIN BLD Lab Routine MDS (myelodysplastic syndrome), low grade (HCC) 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 (HCC) Iron overload, transfusional Idiopathic aplastic anemia (HCC) Expected: 01/29/2024, Expires: 04/29/2024 [facility] Work Phone: Comment on above: Expected: 01/29/2024, Expires: Start: 01-29-2024 End: 04-29-2024 IMMUNOGLOBULINS TRINO IMMUNOGLOBULINS TRINO Lab Routine MDS (myelodysplastic syndrome), low grade (HCC) 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 (HCC) Iron overload, transfusional Idiopathic aplastic anemia (HCC) Expected: 01/29/2024, Expires: 04/29/2024 [facility] Work Phone: Comment on above: Expected: 01/29/2024, Expires: 4 Start: 01-29-2024 End: 04-29-2024 Iron and Iron binding capacity panel - Serum or Plasma IRON + TIBC Lab Routine MDS (myelodysplastic syndrome), low grade (HCC) 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 (HCC) Iron overload, transfusional Idiopathic aplastic anemia (HCC) Expected: 01/29/2024, Expires: 04/29/2024 [facility] Work Phone: Comment on above: Expected: 01/29/2024, Expires: 4 Start: 01-29-2024 End: 04-29-2024 KAPPA/GREGORY,FREE,SER KAPPA/GREGORY,FREE,SER Lab Routine MDS (myelodysplastic syndrome), low grade (HCC) 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 (HCC) Iron overload, transfusional Idiopathic aplastic anemia (HCC) Expected: 01/29/2024, Expires: 04/29/2024 [facility] Work Phone: Comment on above: Expected: 01/29/2024, Expires: Start: 01-29-2024 End: 04-29-2024 Lactate dehydrogenase [Enzymatic activity/volume] in Serum or Plasma LD LACTATE DEHYDRO Lab Routine MDS (myelodysplastic syndrome), low grade (HCC) 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 (HCC) Iron overload, transfusional Idiopathic aplastic anemia (HCC) Expected: 01/29/2024, Expires: 04/29/2024 [facility] Work Phone: Comment on above: Expected: 01/29/2024, Expires: Start: 01-29-2024 End: 04-29-2024 MONOCLONAL PROT UR W/INTERP MONOCLONAL PROT UR W/INTERP Lab Routine MDS (myelodysplastic syndrome), low grade (HCC) 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 (HCC) Iron overload, transfusional Idiopathic aplastic anemia (HCC) Expected: 01/29/2024, Expires: 04/29/2024 [facility] Work Phone: Comment on above: Expected: 01/29/2024, Expires: Start: 01-29-2024 End: 04-29-2024 MONOCLONAL PROTEIN, SERUM (BLOOD) MONOCLONAL PROTEIN, SERUM (BLOOD) Lab Routine MDS (myelodysplastic syndrome), low grade (HCC) 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 (HCC) Iron overload, transfusional Idiopathic aplastic anemia (HCC) Expected: 01/29/2024, Expires: 04/29/2024 [facility] Work Phone: Comment on above: Expected: 01/29/2024, Expires: Start: 01-29-2024 End: 04-29-2024 PROTEIN ELECT RND UR W/INTERP PROTEIN ELECT RND UR W/INTERP Lab Routine MDS (myelodysplastic syndrome), low grade (HCC) 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 (HCC) Iron overload, transfusional Idiopathic aplastic anemia (HCC) Expected: 01/29/2024, Expires: 04/29/2024 [facility] Work Phone: Comment on above: Expected: 01/29/2024, Expires: Start: 01-29-2024 End: 04-29-2024 PROTEIN ELECTROPHORESIS SERUM W/INTERP PROTEIN ELECTROPHORESIS SERUM W/INTERP Lab Routine MDS (myelodysplastic syndrome), low grade (HCC) 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 (HCC) Iron overload, transfusional Idiopathic aplastic anemia (HCC) Expected: 01/29/2024, Expires: 04/29/2024 [facility] Work Phone: Comment on above: Expected: 01/29/2024, Expires: Start: 01-02-2024 Administration of blood product [facility] Start: 01-02-2024 [facility] Start: 12-12-2023 Administration of blood product [facility] Start: 12-12-2023 [facility] Start: 11-28-2023 Administration of blood product [facility] Start: 11-28-2023 [facility] Start: 11-14-2023 Administration of blood product [facility] Start: 11-14-2023 [facility] Start: 11-10-2023 Advance Directive Discussion Advance Directive Discussion [facility] Start: 11-10-2023 Behavioral Health Screening Behavioral Health Screening [facility] Start: 11-10-2023 Depression Assessment Depression Assessment [facility] Start: 10-17-2023 Administration of blood product [facility] Start: 10-17-2023 [facility] Start: 09-19-2023 Administration of blood product [facility] Start: 09-19-2023 [facility] Start: 08-22-2023 Administration of blood product [facility] Start: 08-22-2023 [facility] Start: 08-08-2023 Administration of blood product [facility] Start: 08-08-2023 [facility] Start: 07-11-2023 Influenza vaccination [facility] Start: 07-04-2023 Administration of blood product [facility] Start: 07-04-2023 [facility] Start: 06-20-2023 Administration of blood product [facility] Start: 06-20-2023 [facility] Start: 06-19-2023 Administration of blood product [facility] Start: 06-06-2023 Administration of blood product [facility] Start: 06-06-2023 [facility] Start: 06-05-2023 Leukocyte reduced red blood cells [facility] Start: 06-05-2023 [facility] Start: 05-02-2023 Administration of blood product [facility] Start: 05-02-2023 [facility] Start: 04-04-2023 Administration of blood product [facility] Start: 04-04-2023 [facility] Start: 03-21-2023 Administration of blood product [facility] Start: 03-21-2023 [facility] Start: 03-07-2023 Administration of blood product [facility] Start: 03-07-2023 [facility] Start: 03-06-2023 Procedure [facility] Start: 02-06-2023 End: 04-08-2023 Comprehensive metabolic 2000 panel - Serum or Plasma COMP METABOLIC PANEL Lab STAT MDS (myelodysplastic syndrome), low grade (HCC) 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 (HCC) 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 Iron overload, transfusional Expected: 02/06/2023, Expires: 04/08/2023 [facility] Work Phone: Comment on above: Expected: 02/06/2023, Expires: Start: 01-27-2023 Administration of blood product [facility] Start: 01-27-2023 [facility] Start: 01-09-2023 Administration of blood product [facility] Start: 01-09-2023 [facility] Start: 01-08-2023 End: 03-10-2023 CBC W Auto Differential panel - Blood CBC + DIFF Lab STAT MDS (myelodysplastic syndrome), low grade (HCC) Macrocytic anemia 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 (HCC) Expected: 01/08/2023, Expires: 03/10/2023 [facility] Work Phone: Comment on above: Expected: 01/08/2023, Expires: 3 Start: 12-19-2022 Administration of blood product [facility] Start: 12-19-2022 [facility] Start: 12-18-2022 End: 02-17-2023 CBC W Auto Differential panel - Blood CBC + DIFF Lab STAT MDS (myelodysplastic syndrome), low grade (HCC) 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 (HCC) Splenomegaly Expected: 12/18/2022, Expires: 02/17/2023 [facility] Work Phone: Comment on above: Expected: 12/18/2022, Expires: 3 Start: 11-26-2022 End: 01-26-2023 [id number] [Mass/volume] in Serum or Plasma [facility] Work Phone: Comment on above: Expected: 11/26/2022, Expires: 3 Start: 11-26-2022 End: 01-26-2023 CBC W Auto Differential panel - Blood CBC + DIFF Lab STAT MDS (myelodysplastic syndrome), low grade (HCC) 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 (HCC) Expected: 11/26/2022, Expires: 01/26/2023 [facility] Work Phone: Comment on above: Expected: 11/26/2022, Expires: 3 Start: 11-26-2022 End: 01-26-2023 Chronic hepatitis differentiation between hepatitis B and C virus panel - Serum or Plasma [facility] Work Phone: Comment on above: Expected: 11/26/2022, Expires: 3 Start: 11-26-2022 End: 01-26-2023 COLD AGGLUTIININS [facility] Work Phone: Comment on above: Expected: 11/26/2022, Expires: 3 Start: 11-26-2022 End: 01-26-2023 Comprehensive metabolic 2000 panel - Serum or Plasma COMP METABOLIC PANEL Lab STAT MDS (myelodysplastic syndrome), low grade (HCC) 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 (HCC) Expected: 11/26/2022, Expires: 01/26/2023 [facility] Work Phone: Comment on above: Expected: 11/26/2022, Expires: 3 Start: 11-26-2022 End: 01-26-2023 CRYOGLOBULIN, QUAL, REFLEX TO MARICEL AND IGG,A,M CRYOGLOBULIN, QUAL, REFLEX TO MARICEL AND IGG,A,M Lab Routine MDS (myelodysplastic syndrome), low grade (HCC) 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 (HCC) Waldenstrom macroglobulinemia (HCC) Splenomegaly Expected: 11/26/2022, Expires: 01/26/2023 [facility] Work Phone: Comment on above: Expected: 11/26/2022, Expires: 3 Start: 11-26-2022 End: 01-26-2023 Ferritin [Mass/volume] in Serum or Plasma FERRITIN BLD Lab Routine MDS (myelodysplastic syndrome), low grade (HCC) 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 (HCC) Expected: 11/26/2022, Expires: 01/26/2023 [facility] Work Phone: Comment on above: Expected: 11/26/2022, Expires: 3 Start: 11-26-2022 End: 01-26-2023 Iron and Iron binding capacity panel - Serum or Plasma IRON + TIBC Lab Routine MDS (myelodysplastic syndrome), low grade (HCC) 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 (HCC) Expected: 11/26/2022, Expires: 01/26/2023 [facility] Work Phone: Comment on above: Expected: 11/26/2022, Expires: 3 Start: 11-26-2022 End: 01-26-2023 Lactate dehydrogenase [Enzymatic activity/volume] in Serum or Plasma LD LACTATE DEHYDRO Lab Routine MDS (myelodysplastic syndrome), low grade (HCC) 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 (HCC) Expected: 11/26/2022, Expires: 01/26/2023 [facility] Work Phone: Comment on above: Expected: 11/26/2022, Expires: 3 Start: 11-26-2022 End: 01-26-2023 [facility] Work Phone: Comment on above: Expected: 11/26/2022, Expires: 3 Start: 11-26-2022 End: 01-26-2023 MONOCLONAL PROTEIN, SERUM (BLOOD) [facility] Work Phone: Comment on above: Expected: 11/26/2022, Expires: 3 Start: 11-26-2022 End: 01-26-2023 [facility] Work Phone: Comment on above: Expected: 11/26/2022, Expires: 3 Start: 11-26-2022 End: 01-26-2023 PROTEIN ELECTROPHORESIS SERUM [facility] Work Phone: Comment on above: Expected: 11/26/2022, Expires: 3 Start: 11-26-2022 End: 01-26-2023 RETIC COUNT RETIC COUNT Lab Routine MDS (myelodysplastic syndrome), low grade (HCC) 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 (HCC) Expected: 11/26/2022, Expires: 01/26/2023 [facility] Work Phone: Comment on above: Expected: 11/26/2022, Expires: 3 Start: 11-26-2022 End: 01-26-2023 SERUM VISCOSITY [facility] Work Phone: Comment on above: Expected: 11/26/2022, Expires: 3 Start: 11-13-2022 Administration of blood product [facility] Start: 11-13-2022 [facility] Start: 11-10-2022 ADVANCE DIRECTIVE DISCUSSION ADVANCE DIRECTIVE DISCUSSION [facility] Start: 11-10-2022 DEPRESSION ASSESSMENT DEPRESSION ASSESSMENT [facility] Start: 07-11-2022 Influenza vaccination INFLUENZA (#1) [facility] Start: 07-05-2022 COVID-19 VACCINE (#1) COVID-19 VACCINE (#1) [facility] Comment on above: Postponed from 1949 (Declined at t his time) Postponed from 11/18 (Declined at this time) Start: 07-05-2022 COVID-19 VACCINE (1) COVID-19 VACCINE (1) [facility] Comment on above: Postponed from 1956 (Declined at t his time) Start: 06-13-2022 Adult depression screening assessment DEPRESSION SCREENING [facility] Start: 05-14-2022 Referral to service [facility] Work Phone: Start: 05-14-2022 Patient discharge [facility] Work Phone: Start: 05-12-2022 Referral to service [facility] Work Phone: Start: 05-12-2022 Administration of blood product [facility] Work Phone: Start: 05-10-2022 Administration of blood product [facility] Work Phone: Start: 05-09-2022 Following clinical pathway protocol [facility] Work Phone: Start: 05-09-2022 Transfusion of blood product [facility] Work Phone: Start: 05-09-2022 Assessment of risk of venous thromboembolism [facility] Work Phone: Start: 05-09-2022 Consultation [facility] Work Phone: Start: 05-09-2022 Documentation procedure [facility] Work Phone: Start: 05-09-2022 Incentive spirometry [facility] Work Phone: Start: 05-09-2022 Insertion of catheter into peripheral vein [facility] Work Phone: Start: 05-09-2022 Introduction of urinary catheter [facility] Work Phone: Start: 05-09-2022 Measuring intake and output [facility] Work Phone: Start: 05-09-2022 Providing care according to standard [facility] Work Phone: Start: 05-09-2022 Provision of activity privileges [facility] Work Phone: Start: 05-09-2022 [facility] Work Phone: Start: 05-09-2022 Verification routine [facility] Work Phone: Start: 05-09-2022 Admission procedure [facility] Work Phone: Start: 05-09-2022 End: 05-09-2022 Blood culture [facility] Work Phone: Start: 05-09-2022 Leukocyte reduced platelets collected by apheresis [facility] Work Phone: Start: 05-09-2022 End: 05-09-2022 Administration of blood product [facility] Work Phone: Start: 05-09-2022 End: 05-09-2022 [facility] Work Phone: Start: 05-09-2022 Influenza vaccination INFLUENZA (#1) [facility] Comment on above: Postponed from 07/11/2021 (Declined at t his time) Start: 05-01-2022 End: 05-01-2022 Administration of blood product [facility] Start: 05-01-2022 End: 05-01-2022 [facility] Start: 04-18-2022 Administration of blood product [facility] Start: 04-18-2022 [facility] Start: 03-21-2022 Patient referral [facility] Work Phone: Start: 03-18-2022 Administration of blood product [facility] Start: 03-18-2022 [facility] Start: 02-15-2022 Administration of blood product [facility] Start: 02-15-2022 [facility] Start: 01-18-2022 Administration of blood product [facility] Start: 01-18-2022 [facility] Start: 11-10-2021 ADVANCE DIRECTIVE DISCUSSION ADVANCE DIRECTIVE DISCUSSION [facility] Start: 11-10-2021 DEPRESSION ASSESSMENT DEPRESSION ASSESSMENT [facility] Start: 2019 RSV Vaccine (1 - 1-dose 75+ series) RSV Vaccine (1 - 1-dose 75+ series) [facility] Start: 09-01-2013 SHINGRIX VACCINE (1 of 2) SHINGRIX VACCINE (1 of 2) [facility] Start: 09-01-2013 SHINGRIX VACCINE (2 of 3) SHINGRIX VACCINE (2 of 3) [facility] Start: 2004 RSV Vaccine (1 - 1-dose 60+ series) RSV Vaccine (1 - 1-dose 60+ series) [facility] Start: 1963 Urine microalbumin profile [facility] Start: 1962 Anxiety Screening Anxiety Screening [facility] Start: 1962 Depression Screening Depression Screening [facility] Start: 1949 Covid-19 Vaccine (#1) Covid-19 Vaccine (#1) [facility] Start: 1944 COVID-19 VACCINE (#1) COVID-19 VACCINE (#1) [facility] Bacteria identified in Blood by Culture Blood Culture [facility] Work Phone: Bacteria identified in Urine by Culture Urine Culture [facility] Work Phone: Blood culture [facility] Work Phone: BONE MARROW ANALYSIS BONE MARROW ANALYSIS Lab Routine MDS (myelodysplastic syndrome), low grade (HCC) 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 (HCC) 01/08/2023 1:53 PM EST [facility] Work Phone: BONE MARROW CHROMOSO ME ANAL BONE MARROW CHROMOSOME ANAL Lab Routine MDS (myelodysplastic syndrome), low grade (HCC) 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 (HCC) 01/08/2023 1:53 PM EST [facility] Work Phone: CBC W Auto Different ial panel - Blood [facility] Work Phone: End: 01-24-2024 CBC W Auto Differential panel - Blood CBC + DIFF Lab STAT MDS (myelodysplastic syndrome), low grade (HCC) Every other week for 26 Occurrences starting 01/24/2023 until 01/24/2024, 1 completed [facility] Work Phone: Comment on above: Every other week for 26 Occurrences [facility] 01/24/2023 until 01/24/2024, 1 completed CBC W Auto Different ial panel - Blood [facility] CBC W Auto Different ial panel - Blood [facility] CBC W Auto Different ial panel - Blood [facility] End: 02-10-2025 CBC W Auto Differential panel - Blood CBC + DIFF Lab STAT MDS (myelodysplastic syndrome), low grade (HCC) Macrocytic anemia 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 (HCC) Iron overload, transfusional 52 Occurrences starting 02/11/2024 until 02/10/2025 [facility] Work Phone: Comment on above: 52 Occurrences starting 02/11/2024 until 02/10/2025 End: 12-26-2023 Ct abdomen & pelvis w/contrast material CT ABD/PEL W IVCON Radiology Routine MDS (myelodysplastic syndrome), low grade (HCC) Waldenstrom macroglobulinemia (HCC) Splenomegaly 1 Occurrences starting 11/26/2022 until 12/26/2023 [facility] Work Phone: Comment on above: 1 Occurrences starting 11/26/2022 until 12/26/2023 End: 12-26-2023 CT CHEST W IVCON CT CHEST W IVCON Radiology Routine MDS (myelodysplastic syndrome), low grade (HCC) Waldenstrom macroglobulinemia (HCC) Splenomegaly 1 Occurrences starting 11/26/2022 until 12/26/2023 [facility] Work Phone: Comment on above: 1 Occurrences starting 11/26/2022 until 12/26/2023 DNA EXTRACTION BONE MARROW (BUFFY COAT) DNA EXTRACTION BONE MARROW (BUFFY COAT) Lab Routine MDS (myelodysplastic syndrome), low grade (HCC) 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 (HCC) 01/08/2023 1:53 PM EST [facility] Work Phone: End: 02-14-2024 ECG COMPLETE ECG COMPLETE ECG Routine Bradycardia 1 Occurrences starting 02/13/2023 until 02/14/2024 [facility] Work Phone: Comment on above: 1 Occurrences starting 02/13/2023 until 02/14/2024 FLOW CYTOMETRY BONE MARROW HOLD (BMHOLD) FLOW CYTOMETRY BONE MARROW HOLD (BMHOLD) Lab Routine MDS (myelodysplastic syndrome), low grade (HCC) 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 (HCC) 01/08/2023 1:53 PM EST [facility] Work Phone: LDH [facility] Work Phone: MR Brain WO and W contrast IV [facility] Work Phone: [id number] MUTATION ANALYSIS MARROW [id number] MUTATION ANALYSIS MARROW Lab Routine MDS (myelodysplastic syndrome), low grade (HCC) 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 (HCC) 01/08/2023 1:53 PM EST [facility] Work Phone: Patient Education [facility] Work Phone: Patient referral [facility] Work Phone: Positron emission tomography with computed tomography [facility] Work Phone: Reticulocyte count [facility] Work Phone: Urinalysis complete panel - Urine URINALYSIS (WITH MICROSCOPIC) WITH CULTURE IF INDICATED Lab Routine Urgency of urination 01/27/2025 12:32 PM EDT [facility] End: 05-21-2026 US Abdomen RUQ US ABD RIGHT UPPER QUADRANT Radiology Routine MDS (myelodysplastic syndrome), low grade (HCC) Iron overload Splenomegaly 1 Occurrences starting 04/21/2025 until 05/21/2026 [facility] Work Phone: Comment on above: 1 Occurrences starting 04/21/2025 until 05/21/2026 US Abdomen RUQ US ABD RIGHT UPP ER [facility] Routine MDS (myelodysplastic syndrome), low grade (HCC) Iron overload Splenomegaly 05/05/2025 11:53 AM EDT [facility] End: 05-05-2025 Us abdominal real time w/image limited [facility] Work Phone: Comment on above: ONCE for 1 Occurrences starting 05/05/20 until 05/05/2025 [facility] End: 07-09-2025 US Spleen US ABD SPLEEN Radiology Routine Splenomegaly 1 Occurrences starting 06/09/2024 until 07/09/2025 [facility] Work Phone: Comment on above: 1 Occurrences starting 06/09/2024 until 07/09/2025 US Spleen US ABD SPLEEN Ra diology Routine Splenomegaly 06/24/2024 11:30 AM EDT [facility] Work Phone: [facility] Immunizations Immunization Date Immunization Notes Care Provider Elina hall 10-28-2017 influenza virus vacc ine, unspecified formulation Steven Akers DO Work Phone: [facility] 05-04-2015 pneumococcal conjuga te vaccine, 13 valent Shaheed Cervantes MD Work Phone: [facility] 07-07-2013 zoster vaccine, live Shaheed Cervantes MD Work Phone: [facility] 03-24-2013 pneumococcal polysaccharide vaccine, 23 valent Shaheed Cervantes MD Work Phone: [facility] 09-04-2010 influenza virus vacc ine, unspecified formulation Shaheed Cervantes MD Work Phone: [facility] Work Phone: 09-25-2007 influenza virus vacc ine, whole virus Shaheed Cervantes MD Work Phone: [facility] Payers Date Payer Category Payer Self-pay [id number] 2019 Unknown PRIMETIME PRIMET JARED HMO POS [id number] 2019-Present [phone] [address] [place] [address] O [id number] 2019 Medicare (Managed Care) PRIMETIM E [id number] 2019 Unknown [id number]. [id number] 2019 Unknown [id number] Medicare [id number] Unknown [id number] 2.840.1.315326.3.579. 2.462 Unknown [id number] 2.840.1.302673.3.579. 2.462 Unknown [id number] 2.840.1.046644.3.579. 2.462 Unknown [id number] 2.16840.1.497898.3.579. 2.462 Unknown [id number] 2.840.1.948739.3.579. 2.462 Unknown [id number] 2.16.840.1.898277.3.579. 2.462 Unknown [id number] 2.16.840.1.884764.3.579. 2.462 Unknown [id number] 2.16.840.1.414549.3.579. 2.462 Unknown [id number] 2.16.840.1.894859.3.579. 2.462 Unknown [id number] 2.16.840.1.457935.3.579. 2.462 Unknown [id number] 2.16.840.1.649616.3.579. 2.462 Unknown [id number] 2..840.1.946617.3.579. 2.462 Unknown [id number] 2.16.840.1.102269.3.579. 2.462 Unknown [id number] 2.16.840.1.729260.3.579. 2.462 Unknown [id number] 2.16.840.1.240882.3.579. 2.462 Unknown [id number] 2.16.840.1.189245.3.579. 2.462 Unknown [id number] 2.16.840.1.041424.3.579. 2.462 Unknown [id number] 2.16.840.1.539220.3.579. 2.462 Unknown [id number] 2.16.840.1.301450.3.579. 2.462 Unknown [id number] 2.16.840.1.289825.3.579. 2.462 Unknown [id number] 2.16.840.1.785543.3.579. 2.462 Unknown [id number] 2.16.840.1.916496.3.579. 2.462 Unknown [id number] 2.16.840.1.645707.3.579. 2.462 Unknown [id number] 2.16.840.1.466862.3.579. 2.462 Unknown [id number] 2.16.840.1.207699.3.579. 2.462 Unknown [id number] 2.16.840.1.961490.3.579. 2.462 Unknown [id number] 2.16.840.1.313223.3.579. 2.462 Social History Date Type Detail Facility Start: 03-15-2011 End: 02-10-2025 Tobacco smoking status NHIS Ex-smoker [facility] Work Phone: Start: 11-09-1961 End: 11-09-1977 History of tobacco use Current smoker [facility] Work Phone: Start: 11-09-1961 End: 11-09-1977 History of tobacco use Cigarette Smoker [facility] Work Phone: Start: 03-15-2011 End: 03-18-2023 Cigarettes smoked current (pack per day) - Reported 0.8 [facility] Start: 03-15-2011 End: 07-20-2024 Tobacco use and exposure Smokeless tobacco non-user [facility] Work Phone: Start: 01-01-2022 End: 01-29-2024 Alcohol intake Current non-drinker of alcohol (finding) [facility] Start: 08-14-2020 End: 03-30-2023 History SDOH Alcohol Frequency 1 [facility] Start: 09-14-2020 History SDOH Alcohol Std Drinks 98 [facility] Start: 09-14-2020 End: 03-30-2023 History SDOH Social Connections Phone 3 [facility] Start: 08-14-2020 End: 03-30-2023 History SDOH Social Connections Get Together 2 [facility] Start: 08-14-2020 End: 03-30-2023 History SDOH Financial 5 [facility] Start: 08-14-2020 Education 9 [facility] Start: 07-14-2015 End: 04-03-2023 Tobacco Comment Smoked from age [age]. [facility] Start: 1945 Sex Assigned At Male [facility] Start: 08-13-2021 End: 01-12-2024 Tobacco smoking status DEIS Unknown if ever smoked [facility] Start: 05-30-2020 None [facility] Start: 05-30-2020 Spouse/ Significant Other [facility] Start: 06-02-2020 Non-smoker [facility] Start: 03-30-2023 History SDOH Alcohol Std Drinks 0 [facility] Start: 03-30-2023 History SDOH Physical Activity MPS 8 [facility] Start: 03-18-2023 End: 03-30-2023 Social connection and isolation panel [facility] Do you belong to any clubs or organizations such as yarsani groups, unions, [employer] or athletic groups, or school groups? Yes [facility] Are you now , , , , never or living with a partner? [facility] How often to you hav e a drink containing alcohol? Never [facility] Start: 10-11-2012 How many standard drinks containing alcohol do you have on a typical day? Patient does not drink [facility] Do you feel stress - tense, restless, nervous, or anxious, or unable to sleep at night because your mind is troubled all the time - these days [OSQ] Only a little [facility] (I/We) worried whegeorge er (my/our) food would run out before (I/we) got money to buy more. Never true [facility] In the past 12 month s, was there a time when you were not able to pay the mortgage or rent on time? No [facility] Start: 06-11-2020 Gender identity Identifies as male gender (finding) [facility] Start: 06-11-2020 Sexual orientation Heterosexual (finding) [facility] Do you feel stress - tense, restless, nervous, or anxious, or unable to sleep at night because your mind is troubled all the time - these days [OSQ] To some extent [facility] Start: 04-21-2024 End: 06-30-2025 Alcohol intake Ex-drinker (finding) [facility] How hard is it for y ou to pay for the very basics like food, housing, medical care, and heating Not very hard [facility] Start: 08-15-2021 End: 09-14-2021 Exposure to SARS-CoV-2 (event) Not sure [facility] Start: 01-15-2025 End: 02-26-2025 Sex Male (finding) [facility] Goals Date Patient Goal Desired Activity /State Functional Status Date Assessment Result Facility 06-30-2025 Total score [AUDIT-C] 0 06/30/20 11:13 AM EDT Henrry Wilkinson MA [facility] 05-14-2022 Functional status Chair [facility] Work Phone: 05-13-2022 Functional status Tolerates Activity Well [facility] Work Phone: 05-04-2015 Are you deaf, or do you have serious difficulty hearing No 05/04/2015 1:57 PM EDT Cecille Laws Ma No [facility] 05-04-2015 Are you blind, or do you have serious difficulty seeing, even when wearing glasses Yes 05/04/2015 1:57 PM EDT Cceille Laws Ma Yes [facility] 05-04-2015 Do you have serious difficulty walking or climbing stairs No 05/04/2015 1:57 PM EDT Cecille Laws Ma No [facility] 05-04-2015 Do you have difficul ty dressing or bathing No 05/04/2015 1:57 PM EDT Cecille Laws Ma No [facility] 05-04-2015 Because of a physica l, mental, or emotional condition, do you have difficulty doing errands alone such as visiting a physician's office or shopping No 05/04/2015 1:57 PM EDT Cecille Laws Ma No [facility] Mental Status Date Assessment Result Facility 09-09-2025 Cognitive function Voice/Name [facility] Work Phone: 08-26-2025 Cognitive function Voice/Name [facility] Work Phone: 08-12-2025 Cognitive function Awake [facility] Work Phone: 07-29-2025 Cognitive function Voice/Name [facility] Work Phone: 07-15-2025 Cognitive function Voice/Name [facility] Work Phone: 07-01-2025 Cognitive function Awake;Alert;A ppropriate;Fol lows Commands [facility] Work Phone: 06-17-2025 Cognitive function Voice/Name [facility] Work Phone: 06-03-2025 Cognitive function Awake;Alert;A ppropriate;Fol lows Commands [facility] Work Phone: 05-20-2025 Cognitive function Voice/Name [facility] Work Phone: 04-22-2025 Cognitive function Awake;Alert;A ppropriate;Fol lows Commands [facility] Work Phone: 04-08-2025 Cognitive function Voice/Name [facility] Work Phone: 03-11-2025 Cognitive function Awake;Alert;A ppropriate;Fol lows Commands [facility] Work Phone: 02-25-2025 Cognitive function Voice/Name [facility] Work Phone: 02-11-2025 Cognitive function Awake;Alert;A ppropriate;Fol lows Commands [facility] Work Phone: 12-31-2024 Cognitive function Awake;Alert;A ppropriate;Fol lows Commands [facility] Work Phone: 12-17-2024 Cognitive function Awake;Alert;A ppropriate;Fol lows Commands [facility] Work Phone: 11-12-2024 Cognitive function Awake;Alert;A ppropriate;Fol lows Commands [facility] Work Phone: 10-22-2024 Cognitive function Awake;Alert;A ppropriate;Fol lows Commands [facility] Work Phone: 10-01-2024 Cognitive function Awake;Alert;A ppropriate;Fol lows Commands [facility] Work Phone: 09-24-2024 Cognitive function Voice/Name [facility] Work Phone: 03-22-2024 Cognitive function Voice/Name [facility] Work Phone: 03-05-2024 Cognitive function Awake;Alert;A ppropriate;[facility] lows Commands [facility] Work Phone: 02-20-2024 Cognitive function Voice/Name [facility] Work Phone: 01-30-2024 Cognitive function Voice/Name [facility] Work Phone: 01-02-2024 Cognitive function Level Of Cons ciousness Awake;Alert;Appropriate;Fol lows Commands [facility] Work Phone: 12-12-2023 Cognitive function Voice/Name [facility] Work Phone: 11-28-2023 Cognitive function Awake;Alert;A ppropriate;[facility] lows Commands [facility] Work Phone: 11-14-2023 Cognitive function Awake;Alert;A ppropriate;[facility] lows Commands [facility] Work Phone: 09-19-2023 Cognitive function Awake;Alert;A ppropriate;[facility] lows Commands [facility] Work Phone: 08-22-2023 Cognitive function Voice/Name [facility] Work Phone: 08-08-2023 Cognitive function Awake;Alert;A ppropriate;[facility] lows Commands [facility] Work Phone: 07-04-2023 Cognitive function Awake;Alert;A ppropriate;[facility] lows Commands [facility] Work Phone: 06-20-2023 Cognitive function Voice/Name [facility] Work Phone: 06-06-2023 Cognitive function Awake;Alert;A ppropriate;[facility] lows Commands [facility] Work Phone: 05-02-2023 Cognitive function [facility]/Name [facility] Work Phone: 04-04-2023 Cognitive function Voice/Name [facility] Work Phone: 03-21-2023 Cognitive function Voice/Name [facility] Work Phone: 03-07-2023 Cognitive function Voice/Name [facility] Work Phone: 01-27-2023 Cognitive function Voice/Name [facility] Work Phone: 01-09-2023 Cognitive function Voice/Name [facility] Work Phone: 12-19-2022 Cognitive function Awake;Alert;A ppropriate;Fol lows Commands [facility] Work Phone: 11-13-2022 Cognitive function Voice/Name [facility] Work Phone: 05-14-2022 Cognitive function Appropriate;Cooperativ e [facility] Work Phone: 05-14-2022 Cognitive function Voice/Name [facility] Work Phone: 05-09-2022 Cognitive function Level Of Cons ciousness Awake;Alert;Appropriate;Fol lows Commands [facility] Work Phone: 05-01-2022 Cognitive function Voice/Name [facility] Work Phone: 02-15-2022 Cognitive function Voice/Name [facility] Work Phone: 12-18-2021 Cognitive function Level Of Cons ciousness Alert;Appropriate;Follows Commands [facility] Work Phone: 11-23-2021 Cognitive function Voice/Name [facility] Work Phone: 05-04-2015 Because of a physica l, mental, or emotional condition, do you have serious difficulty concentrating, remembering, or making decisions Yes 05/04/2015 1:57 PM EDT Cecille Laws Ma Yes [facility] Clinical Notes 12-13-2015 to 07-28-2025 Telephone Encounter - Domonique Laar LPN - 07/14/2025 12:17 PM EDTTelephone Encounter - Domonique Lara LPN - 07/14/2025 12:17 PM Steven Braxton DO - 06/30/2025 11:41 AM EDTPatient Instructions Note Date & Type Note [facility] 07-28-2025 Note [facility] 07-28-2025 Note [facility] 07-14-2025 Telephone encounter Note Pt. Scheduled for transfusion 2 units packed cells @ [facility] 07/15@ 8:30 am . Pt. And lab notified orders faxed. Doomnique Lara LPN [facility] 07-14-2025 Miscellaneous Notes Pt. Scheduled for transfusion 2 units packed cells @ [facility] 07/15@ 8:30 am . Pt. And lab notified orders faxed. Domonique Lara LPN documented in this encounter [facility] 06-30-2025 Telephone encounter Note Patient scheduled for 2 units of PRBC to be given tomorrow 07/01/25 at 0830. Pt aware and order faxed to [facility]. Sara Milian LPN [facility] 06-30-2025 Miscellaneous Notes Patient scheduled for 2 units of PRBC to be given tomorrow 07/01/25 at 0830. Pt aware and order faxed to [facility]. Sara Milian LPN documented in this encounter [facility] 06-30-2025 Note [facility] 06-30-2025 History of Present illness Narrative Diagnoses: [...] low burden lymphoplasmacytic lymphoma. Transferred care to [facility] early 2021. Was treated with [...] lead to mortality. 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 Steven Akers DO documented in this encounter [facility] 06-02-2025 Telephone encounter Note Patient scheduled for 2 units PRBC 06/03/2025 @ 0830, [facility]. Orders faxed. Patient and lab aware. Margot Cox LPN [facility] 06-02-2025 Miscellaneous Notes Patient scheduled for 2 units PRBC 06/03/2025 @ 0830, [facility]. Orders faxed. Patient and lab aware. Margot Cox LPN documented in this encounter [facility] 05-19-2025 Telephone encounter Note Hgb 7.4 Patient scheduled for 2 units of PRBC on 05/20/25 at 0830. Order faxed. Patient notified. Sara Milian LPN [facility] 05-19-2025 Miscellaneous Notes Hgb 7.4 Patient scheduled for 2 units of PRBC on 05/20/25 at 0830. Order faxed. Patient notified. Sara Milian LPN documented in this encounter [facility] 05-09-[address] Akers response to ultrasound results sent to pt. Via my chart. Domonique Lara LPN [facility] 05-09-[address] Akers response [...] Steven Akers DO documented in this encounter [facility] 05-08-2025 Telephone encounter Note I called and left a message for Atlee to call back to receive the below message Yolanda Rivera Pss [facility] 05-08-2025 Telephone encounter Note Let him know the ultrasound shows spleen is mildly enlarged. Not significantly so. Liver appears normal with no evidence of cirrhosis which is great. Right renal cyst which is stable when compared to CT scan in 2022. It appears benign. Steven Akers DO [facility] 05-05-2025 Telephone encounter Note Pt. Scheduled for transfusion 2 units packed cells @ [facility] 05/05 @ 8:30 am. Pt. And lab notified, orders faxed. Domonique Lara LPN [facility] 05-05-2025 Miscellaneous Notes Pt. Scheduled for transfusion 2 units packed cells @ [facility] 05/05 @ 8:30 am. Pt. And lab notified, orders faxed. Domonique Lara LPN documented in this encounter [facility] 05-05-2025 History of Present illness Narrative [...] PATIENT PRESENTS WITH AN IMPLANTABLE OR ATTACHED ENERGY MANAGER: No RADIOLOGY DEPARTMENT: Ultrasound PERIPHERAL IV DATA: Not applicable SIGNED BY: Ritu Millan RDMS RVT May 05, 2025 12:01 PM documented in this encounter [facility] 05-05-2025 Note [facility] 04-21-2025 Telephone encounter Note Transfusion @ [facility] 04/22@ 8:30 , 2 units packed cells . Pt and lab notified, orders faxed. Domonique Lara LPN [facility] 04-21-2025 Miscellaneous Notes Transfusion @ [facility] /13@ 8:30 , 2 units packed cells . Pt and lab notified, orders faxed. Domonique Lara LPN documented in this encounter [facility] 04-21-2025 Note [facility] 04-21-2025 History of Present illness Narrative Diagnoses: [...] low burden lymphoplasmacytic lymphoma. Transferred care to [facility] early 2021. Was treated with Inqovi [...] lead to mortality. 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 Steven Akers DO documented in this encounter [facility] 04-18-2025 Telephone encounter Note The following approved medication requests have been transmitted electronically. Requested Prescriptions Pending Prescriptions Disp Refills Tadalafil (CIALIS) 2.5 mg tablet 30 tablet 5 Sig: Take 1 tablet by mouth once daily. busPIRone (BUSPAR) 5 mg tablet 90 tablet 2 Sig: Take 1 tablet by mouth three times a day. Gladys Da Silva APRN.CNP [facility] 04-18-2025 Miscellaneous Notes The following approved [...] 2025 1:05 PM documented in this encounter [facility] 04-18-2025 Telephone encounter Note Prescription Refill [...] Poe MA April 18, 2025 1:05 PM [facility] 04-07-2025 Telephone encounter Note Pt. Scheduled for transfusion [facility] 04/08 @ 8 am 2 unoits packed cells, pt. And lab aware, orders faxed. Domonique Lara LPN [facility] 04-07-2025 Miscellaneous Notes Pt. Scheduled for transfusion [facility] 04/08 @ 8 am 2 unoits packed cells, pt. And lab aware, orders faxed. Domonique Lara LPN documented in this encounter [facility] 03-24-2025 Telephone encounter Note Pt. Scheduled for transfusion 1 unit packed cells @ [facility] 03/25@ 8 am. Pt and lab notified, orders faxed. Domonique Lara LPN [facility] 03-24-2025 Miscellaneous Notes Pt. Scheduled for transfusion 1 unit packed cells @ [facility] 03/25@ 8 am. Pt and lab notified, orders faxed. Domonique Lara LPN documented in this encounter [facility] 03-10-2025 Telephone encounter Note Patient scheduled for 2 units PRBC 03/11/2025 @ 0800, [facility]. Orders faxed. Patient and lab aware. Margot Cox LPN [facility] 03-10-2025 Miscellaneous Notes Patient scheduled for 2 units PRBC 03/11/2025 @ 0800, [facility]. Orders faxed. Patient and lab aware. Margot Cox LPN documented in this encounter [facility] 03-04-2025 Note [facility] 02-24-2025 Progress note Formatting of t his note might be different from the original. TSH is therapeutic. I will continue you on your current dose of levothyroxine for the next 6 months. [facility] 02-24-2025 Miscellaneous Notes TSH is therapeutic. I will continue you on your current dose of levothyroxine for the next 6 months. documented in this encounter [facility] 02-24-2025 Telephone encounter Note Pt. Scheduled for transfusion 2 units packed cells @ [facility] 02/25@ 8:30 m. Pt. And lab notified, orders faxed. Domonique Lara LPN [facility] 02-24-2025 Miscellaneous Notes Pt. Scheduled for transfusion 2 units packed cells @ [facility] 02/25@ 8:30 m. Pt. And lab notified, orders faxed. Domonique Lara LPN documented in this encounter [facility] 02-24-2025 Note [facility] 02-24-2025 History of Present illness Narrative Diagnoses: [...] low burden lymphoplasmacytic lymphoma. Transferred care to [facility] early 2021. Was treated with Inqovi [...] lead to mortality. 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 Domenica Garcia APRN.FACTORY REPRESENTATIVE I spent a total of 40 minutes on the date of the service which included preparing to see the patient, [id number] patient care, completing clinical documentation, obtaining and/or [...] of this patient. documented in this encounter [facility] 02-11-2025 Telephone encounter Note Patient was in [facility] ED 02/10/2025, Hgb 7.1. Patient's Mycharted a message requesting a blood transfusion for today at [facility]. Patient scheduled for 2 units PRBC at [facility] today per their request. Order faxed. Margot Cox LPN [facility] 02-11-2025 Miscellaneous Notes Patient was in [facility] ED 02/10/2025, Hgb 7.1. Patient's Mycharted a message requesting a blood transfusion for today at [facility]. Patient scheduled for 2 units PRBC at [facility] today per their request. Order faxed. Margot Cox LPN documented in this encounter [facility] 01-28-2025 Telephone encounter Note Singulair was ordered. [facility] 01-28-2025 Miscellaneous Notes Singulair was ordered. documented in this encounter [facility] 01-28-2025 Telephone encounter Note Prescription Refill [...] Lara LPN January 28, 2025 8:09 AM [facility] 01-28-2025 Miscellaneous Notes Prescription Refill Information [...] 2025 8:09 AM documented in this encounter [facility] 01-27-2025 Telephone encounter Note Pt. Scheduled for transfusion 2 units packed cells@ [facility] 01/28 @ 8 am. Pt and lab notified, orders faxed. Domonique Lara LPN [facility] [facility] 01-27-[facility]25 Miscellaneous Notes Pt. Scheduled for transfusion 2 units packed cells@ [facility] 01/28 @ 8 am. Pt and lab notified, orders faxed. Domonique Lara LPN documented in this encounter [facility] 01-27-2025 Instructions Gladys Da Silva APRN.FACTORY REPRESENTATIVE - 01/27/2025 12:19 PM EDT 1) Switch Zyprexa to citalopram 10 mg at bedtime 2) Will check thyroid with next Dr. Akers labs 3) Consider Milk of Magnesia or warm prune juice for constipation 4) Check urinalysis 5) follow up in 6 months documented in this encounter [facility] 01-27-2025 Note [facility] 01-27-2025 History of Present illness Narrative This [...] Da Silva APRN.CNP documented in this encounter [facility] 01-24-2025 Telephone encounter Note The following approved medication requests have been transmitted electronically. Requested Prescriptions Pending Prescriptions Disp Refills omeprazole (PRILOSEC) 20 mg capsule 180 capsule 1 Sig: Take 2 capsules by mouth once daily. Gladys Da Silva APRN.CNP [facility] 01-24-2025 Miscellaneous Notes The following approved [...] 2025 9:55 AM documented in this encounter [facility] 01-24-2025 Telephone encounter Note Prescription Refill [...] Gonsalez LPN January 24, 2025 9:55 AM [facility] 01-13-2025 Telephone encounter Note Pt. Scheduled for transfusion 2 units packed cells at [facility] 3/6@ 8 am. Pt.and lab notified, orders faxed. Domonique Lara LPN [facility] 01-13-2025 Miscellaneous Notes Pt. Scheduled for transfusion 2 units packed cells at [facility] 3/6@ 8 am. Pt.and lab notified, orders faxed. Domonique Lara LPN documented in this encounter [facility] 01-06-2025 Telephone encounter Note The following approved medication requests have been transmitted electronically. Requested Prescriptions Pending Prescriptions Disp Refills busPIRone (BUSPAR) 5 mg tablet 90 tablet 2 Sig: Take 1 tablet by mouth three times a day. Gladys Da Silva APRN.CNP [facility] 01-06-2025 Miscellaneous Notes The following approved [...] 2025 2:25 PM documented in this encounter [facility] 01-05-2025 Telephone encounter Note Prescription Refill [...] Montenegro LPN January 05, 2025 2:25 PM [facility] 12-29-2024 Telephone encounter Note Patient scheduled for transfusion of 2 units of PRBC to be given at [facility] on Friday12/31/24 (per pt choice) at 0800. Orders faxed, patient notified. Sara Milian LPN [facility] 12-29-2024 Miscellaneous Notes Patient scheduled for transfusion of 2 units of PRBC to be given at [facility] on Friday12/31/24 (per pt choice) at 0800. Orders faxed, patient notified. Sara Milian LPN documented in this encounter [facility] 12-29-2024 Telephone encounter Note Noted. Margot Cox LPN [facility] 12-29-2024 Miscellaneous Notes Noted. Margot Cox LPN Spouse called and rescheduled cbc ?tx from tomorrow to today due to possible weather on . She stated if patient does need transfusion, they would still like it scheduled for Friday. documented in this encounter [facility] 12-29-2024 Telephone encounter Note Spouse called and rescheduled cbc ?tx from tomorrow to today due to possible weather on . She stated if patient does need transfusion, they would still like it scheduled for Friday. [facility] Work Phone: 12-21-2024 Miscellaneous Notes Sent [...] Joselyn Montez RN documented in this encounter [facility] 12-21-2024 Telephone encounter Note Sent patient [...] Please review and advise. Joselyn Montez RN [facility] 12-16-2024 Telephone encounter Note Patient scheduled for 2 units PRBC's 12/17/2024 @ 0830, [facility]. Orders faxed. Patient and lab aware. Margot Cox LPN [facility] 12-16-2024 Miscellaneous Notes Patient scheduled for 2 units PRBC's 12/17/2024 @ 0830, [facility]. Orders faxed. Patient and lab aware. Margot Cox LPN documented in this encounter [facility] 12-16-2024 Note [facility] 12-16-2024 History of Present illness Narrative Diagnoses: [...] low burden lymphoplasmacytic lymphoma. Transferred care to [facility] early 2021. Was treated with Inqovi [...] lead to mortality. 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 Will be seeing him for office visit next month. Steven Akers DO [facility] 12-02-2024 Miscellaneous Notes PDMP reviewed. Will be seeing him for office visit next month. Steven Akers DO documented in this encounter [facility] 12-02-2024 Telephone encounter Note Pt. Scheduled for transfusion 2 units packed cells @ [facility] 12/03@8 am. Pt. And lab notified , orders faxed. Domonique Lara LPN [facility] 12-02-2024 Miscellaneous Notes Pt. Scheduled for transfusion 2 units packed cells @ [facility] 12/03@8 am. Pt. And lab notified , orders faxed. Domonique Lara LPN documented in this encounter [facility] 11-11-2024 Telephone encounter Note Patient scheduled for 2 units PRBC 11/12/2024 @ 0830, [facility]. Orders faxed. Patient and lab aware. Margot Cox LPN [facility] 11-11-2024 Miscellaneous Notes Patient scheduled for 2 units PRBC 11/12/2024 @ 0830, [facility]. Orders faxed. Patient and lab aware. Margot Cox LPN documented in this encounter [facility] 10-20-2024 Telephone encounter Note Patient scheduled for transfusion of 2 units of PRBC to be given at [facility] on 10/22/24 at 0900. Orders faxed, patient notified. Sara Milian LPN [facility] 10-20-2024 Miscellaneous Notes Patient scheduled for transfusion of 2 units of PRBC to be given at [facility] on 10/22/24 at 0900. Orders faxed, patient notified. Sara Milian LPN documented in this encounter [facility] 10-13-2024 Telephone encounter Note SOCIAL WORK FOLLOW UP NOTE: [facility] Date of service: October 13, [...] in Care Team tab: Yes MARIAJOSE Cason [facility] 10-13-2024 Miscellaneous Notes SOCIAL WORK FOLLOW UP NOTE: [facility] Date of service: October 13, [...] Yes MARIAJOSE Cason documented in this encounter [facility] 10-13-2024 Note [facility] 10-13-2024 History of Present illness Narrative Diagnoses: [...] low burden lymphoplasmacytic lymphoma. Transferred care to [facility] early 2021. Was treated with Inqovi [...] to his . 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 Steven Akers DO documented in this encounter [facility] 10-11-2024 Telephone encounter Note The following approved medication requests have been transmitted electronically. Requested Prescriptions Pending Prescriptions Disp Refills busPIRone (BUSPAR) 5 mg tablet 90 tablet 2 Sig: Take 1 tablet by mouth three times a day. Gladys Da Silva APRN.CNP [facility] 10-11-2024 Telephone encounter Note The following approved medication requests have been transmitted electronically. Requested Prescriptions Pending Prescriptions Disp Refills Tadalafil (CIALIS) 2.5 mg tablet 30 tablet 5 Sig: Take 1 tablet by mouth once daily. Gladys Da Silva APRN.CNP [facility] 10-11-2024 Miscellaneous Notes The following approved [...] 2024 9:33 AM documented in this encounter [facility] 10-11-2024 Miscellaneous Notes The following approved [...] 2024 9:40 AM documented in this encounter [facility] 10-11-2024 Telephone encounter Note Prescription Refill [...] Montenegro LPN October 11, 2024 9:40 AM [facility] 10-11-2024 Telephone encounter Note Prescription Refill [...] Montenegro LPN October 11, 2024 9:33 AM [facility] 09-30-2024 Telephone encounter Note Patient scheduled for transfusion of 2 units of PRBC to be given at [facility] on 10/01/24 at 0830. Orders faxed, patient notified. Sara Milian LPN [facility] 09-30-2024 Miscellaneous Notes Patient scheduled for transfusion of 2 units of PRBC to be given at [facility] on 10/01/24 at 0830. Orders faxed, patient notified. Sara Milian LPN documented in this encounter [facility] 09-30-2024 Telephone encounter Note [facility] FOLLOW UP [facility] Date of service: September 30, 2024 Loreta Hurst is being seen for a follow up social work visit. Today's visit includes: spouse and patient TOPICS ADDRESSED: KAY met with pt's this date. She reports financial navigator had assisted them in obtaining a shraddha from [employer] and had paid claims for them of [...] in Care Team tab: Yes MARIAJOSE Cason [facility] 09-30-2024 Miscellaneous Notes SOCIAL WORK FOLLOW UP NOTE: [facility] Date of service: September 30, 2024 Loreta Hurst is being seen for a follow up social work visit. Today's visit includes: spouse and patient TOPICS ADDRESSED: SW met with pt's this date. She reports financial navigator had assisted them in obtaining a shraddha from [employer] and had paid claims for them of $4100 previously. Pt's states there is approximately $5900 left in the shraddha which expires mid-October of 2024 and is inquiring if any of this amount can be used. KAY sent an email to the [facility] Navigators email as site navigator is no [...] Yes MARIAJOSE Cason documented in this encounter [facility] 09-27-2024 Telephone encounter Note Referral faxed to [employer] as requested. Margot Cox LPN [facility] 09-27-2024 Miscellaneous Notes Referral faxed to [employer] as requested. Margot Cox LPN Jo-Ann from [facility] called stating patient has reached out to them for palliative care. She is requesting records/referral be faxed to [phone] documented in this encounter [facility] 09-27-2024 Telephone encounter Note Jo-Ann from [facility] called stating patient has reached out to them for palliative care. She is requesting records/referral be faxed to [phone] [facility] Work Phone: 09-23-2024 Telephone encounter Note Pt. Scheduled for transfusion @ [facility] 09/24 , 8:30 am Pt. And lab notified, orders faxed. Domonique Lara LPN [facility] 09-23-2024 Miscellaneous Notes Pt. Scheduled for transfusion @ [facility] 09/24 , 8:30 am Pt. And lab notified, orders faxed. Domonique Lara LPN documented in this encounter [facility] 09-23-2024 Note [facility] 09-23-2024 History of Present illness Narrative Notified MD of Low Hgb/Hct, orders written for transfusion. Patient and will be notified of the time of transfusion, patient aware to leave transfusion band on. documented in this encounter [facility] 09-09-2024 Telephone encounter Note Pt. Scheduled for transfusion 2 units packed cells @ [facility] 09/10/2024. Pt. And lab notified, orders faxed, Domonique Lara LPN' [facility] 09-09-2024 Miscellaneous Notes Pt. Scheduled for transfusion 2 units packed cells @ [facility] 09/10/2024. Pt. And lab notified, orders faxed, Domonique Lara LPN' documented in this encounter [facility] 09-03-2024 Telephone encounter Note Updated next tx note. Sara Milian LPN [facility] 09-03-2024 Miscellaneous Notes Updated next tx note. Sara Milian LPN Rx sent. He will have to sign an pain management/opiate agreement contract next time he is here. Steven Akers DO documented in this encounter [facility] 09-02-2024 Telephone encounter Note Rx sent. He will have to sign an pain management/opiate agreement contract next time he is here. Steven Akers DO [facility] 08-26-2024 Telephone encounter Note Pt. Scheduled for transfusion 2 units pasked cells @ [facility] 08/27/24 @ 8:30 am , pt. And lab notified, orders faxed. Domonique Lara LPN [facility] 08-26-2024 Miscellaneous Notes Pt. Scheduled for transfusion 2 units pasked cells @ [facility] 08/27/24 @ 8:30 am , pt. And lab notified, orders faxed. Domonique Lara LPN documented in this encounter [facility] 08-05-2024 Telephone encounter Note Pt. Scheduled for transfusion 2 units packed cells @ [facility] 08/06@ 8 am. Pt. And lab notified orders faxed. Domonique Lara LPN [facility] 08-05-2024 Miscellaneous Notes Pt. Scheduled for transfusion 2 units packed cells @ [facility] 08/06@ 8 am. Pt. And lab notified orders faxed. Domonique Lara LPN documented in this encounter [facility] 08-05-2024 History of Present illness Narrative Hgb 8.1. Dr. Akers ordered to have transfusion at [facility]. Pt and aware. Staff to call pt to set up. Lorenza Bhakta RN documented in this encounter [facility] 07-30-2024 Telephone encounter Note Prescription Refill [...] Lara LPN July 30, 2024 7:23 AM [facility] 07-30-2024 Miscellaneous Notes Prescription Refill Information [...] 2024 7:23 AM documented in this encounter [facility] 07-28-2024 History of Present illness Narrative [...] low burden lymphoplasmacytic lymphoma. Transferred care to [facility] early 2021. Was treated with Inqovi [...] which included preparing to see the patient, [id number] patient care, completing clinical documentation, obtaining and/or reviewing separately obtained history, performing a medically appropriate examination, counseling and educating the patient/family/caregiver, ordering medications, tests, or procedures, communicating with other HCPs (not separately reported), and communicating results to the patient/family/caregiver. Steven Akers DO documented in this encounter [facility] 07-27-2024 Telephone encounter Note returned call and given provider's message below with verbalized understanding. agreeable. [facility] 07-27-2024 Miscellaneous Notes returned call and [...] magnesium are normal. documented in this encounter [facility] 07-27-2024 Telephone encounter Note Message left for pt to call back for results. Taylor Brothers MA [facility] 07-27-2024 Telephone encounter Note Please let [...] whenever possible. B12 and magnesium are normal. [facility] 07-22-2024 Telephone encounter Note Patient scheduled for 2 untis PRB 07/23/2024 @ 0830, [facility]. Orders faxed. Lab and patient aware. Margot Cox LPN [facility] 07-22-2024 Miscellaneous Notes Patient scheduled for 2 untis PRB 07/23/2024 @ 0830, [facility]. Orders faxed. Lab and patient aware. Margot Cox LPN documented in this encounter [facility] 07-20-2024 Instructions Gladys Da Silva APRN.CNP - 07/20/2024 11:45 AM EDT 1) Labs on 2) Buspirone 5 mg 3 x day for anxiety and depression 3) If you want to get Tetanus, shingles, and RSV vaccines- clear with Dr. Akers 4) Follow up in 6 months documented in this encounter [facility] 07-20-2024 History of Present illness Narrative [...] Negative for chest pain, left leg swelling group home- stockings help, + orthopnea, some palpitations [...] Da Silva NP documented in this encounter [facility] 07-13-2024 Telephone encounter Note Prescription Refill [...] Montenegro LPN July 13, 2024 11:09 AM [facility] 07-13-2024 Miscellaneous Notes Prescription Refill Information [...] 2024 11:09 AM documented in this encounter [facility] 07-08-2024 Telephone encounter Note Pt scheduled for 2 units of PRBC at 0800 on 07/08/30. Called cell, hear the at one point but Im not sure she heard my message. I called the house number and left a VM. Saar Milian LPN [facility] 07-08-2024 Miscellaneous Notes Pt scheduled for 2 units of PRBC at 0800 on 07/08/30. Called cell, hear the at one point but Im not sure she heard my message. I called the house number and left a VM. Sara Milian LPN documented in this encounter [facility] 07-08-2024 History of Present illness Narrative No treatment today ANC 0.95 for not meeting parameters. Ok to hold per . HGB 7.2 orders to receive 2 units placed. Pt and accepting of today's plan. documented in this encounter [facility] 06-24-2024 History of Present illness Narrative [...] PATIENT PRESENTS WITH AN IMPLANTABLE OR ATTACHED ENERGY MANAGER: No RADIOLOGY DEPARTMENT: Ultrasound PERIPHERAL IV DATA: Not applicable SIGNED BY: Ritu Millan RDMS RVT June 24, 2024 11:35 AM documented in this encounter [facility] 06-24-2024 Telephone encounter Note Patient scheduled for 1 unit PRBC 06/25/2024 @ 1030, [facility]. Orders faxed. Patient and lab aware. Margot Cox LPN [facility] 06-24-2024 Miscellaneous Notes Patient scheduled for 1 unit PRBC 06/25/2024 @ 1030, [facility]. Orders faxed. Patient and lab aware. Margot Cox LPN documented in this encounter [facility] 06-11-2024 Telephone encounter Note Scheduled with spouse [facility] Work Phone: 06-11-2024 Miscellaneous Notes Scheduled with spouse 2nd attempt. Message left for patient to schedule Ultrasound Abd/Spleen. Left message for patient to return call. When they call, please schedule US Abd Spleen. Esther Schwartz Could be from worsening splenomegaly. Please schedule for US spleen. Steven Akers DO Care Coordination Triage Note [facility] Situation: Patient reports Other left sided pain [...] any further instructions. documented in this encounter [facility] 06-11-2024 Telephone encounter Note 2nd attempt. Message left for patient to schedule Ultrasound Abd/Spleen. [facility] 06-10-2024 Telephone encounter Note Left message for patient to return call. When they call, please schedule US Abd Spleen. Esther Schwartz [facility] 06-09-2024 Telephone encounter Note Could be from worsening splenomegaly. Please schedule for US spleen. Steven Akers DO [facility] 06-09-2024 Telephone encounter Note Care Coordination Triage Note [facility] Situation: Patient reports Other left sided pain [...] Silva RN June 09, 2024 1:28 PM [facility] Work Phone: 06-09-2024 Telephone encounter Note Patient scheduled for transfusion of 2 units of PRBC to be given at [facility] on 06/10/24 at 0930. Orders faxed, patient notified. Sara Milian LPN [facility] 06-09-2024 Miscellaneous Notes Patient scheduled for transfusion of 2 units of PRBC to be given at [facility] on 06/10/24 at 0930. Orders faxed, patient notified. Sara Milian LPN documented in this encounter [facility] 06-09-2024 Telephone encounter Note FYI Pt [...] afebrile. Please advise with any further instructions. [facility] 05-27-2024 Telephone encounter Note Noted. Thank you. Steven Akers DO [facility] 05-27-2024 Miscellaneous Notes Noted. Thank you. [...] exam to complete. documented in this encounter [facility] 05-27-2024 Telephone encounter Note Results reviewed with Dr Akers, pt scheduled for transfusion 05/28/24 0900 at [facility], 2 units PRBC. Order faxed. Pt notified. Sara Milian LPN [facility] 05-27-2024 Miscellaneous Notes Results reviewed with Dr Akers, pt scheduled for transfusion 05/28/24 0900 at [facility], 2 units PRBC. Order faxed. Pt notified. Sara Milian LPN FYI: HGB today= 7.8 documented in this encounter [facility] 05-27-2024 Telephone encounter Note Patient and [...] still has his ophthalmology exam to complete. [facility] 05-27-2024 Telephone encounter Note FYI: HGB today= 7.8 [facility] 05-20-2024 Telephone encounter Note Late entry for 05/12/24 Pt scheduled for two units of PRBC at [facility] on 05/14/24 at 0845. Orders faxed. Sara Milian LPN [facility] 05-20-2024 Miscellaneous Notes Late entry for 05/12/24 Pt scheduled for two units of PRBC at [facility] on 05/14/24 at 0845. Orders faxed. Sara Milian LPN documented in this encounter [facility] 05-11-2024 Telephone encounter Note Patient denies fever, chills or pain/pus/drainage at the injection site. Patient also denies any other bruising/bleeding issues. Patient will be in for labs/injection tomorrow. Reviewed s/s of when to call our office and after hour number. Salena Ricardo RN [facility] 05-11-2024 Miscellaneous Notes Patient denies fever, chills or pain/pus/drainage at the injection site. Patient also denies any other bruising/bleeding issues. Patient will be in for labs/injection tomorrow. Reviewed s/s of when to call our office and after hour number. Salena Ricardo RN documented in this encounter [facility] 05-10-2024 Telephone encounter Note Appointment notes updated. Margot Cox LPN [facility] 05-10-2024 Miscellaneous Notes Appointment notes updated. [...] insurance cover Ex[employer]? documented in this encounter [facility] 05-10-2024 Telephone encounter Note Patient's called back in and confirmed the below information. She stated that Atlee is schedule with his ENT provider for the hearing test and is also scheduled with ophthalmology for his vision test. She also confirmed that there is a CMP panel being added to his lab work that is scheduled. Yolanda Rivera Pss [facility] 05-10-2024 Telephone encounter Note Message left for patient to contact office. Margot Cox LPN [facility] 05-10-2024 Telephone encounter Note ----- Message [...] Pool; # Did his insurance cover Exjade? [facility] 05-06-2024 Telephone encounter Note FYVladimir Pt has single red area, approx size of a dime, on the R cheek near nose. Pt states the area is sore if he touches it. Area has been present for a while now, forgot to tell Dr. Akers at last appt. Area is non-blanchable, irregular borders, slightly raised. Pt advised to send picture via Stir to Dr. Akers. Also advised to see PCP or derm for further evaluation. [facility] 05-06-2024 Miscellaneous Notes FYVladimri Pt has single red area, approx size of a dime, on the R cheek near nose. Pt states the area is sore if he touches it. Area has been present for a while now, forgot to tell Dr. Akers at last appt. Area is non-blanchable, irregular borders, slightly raised. Pt advised to send picture via [employer] to Dr. Akers. Also advised to see PCP or derm for further evaluation. documented in this encounter [facility] 05-03-2024 Telephone encounter Note Prescription Refill [...] Lara LPN May 03, 2024 7:46 AM [facility] 05-03-2024 Miscellaneous Notes Prescription Refill Information [...] 2024 7:46 AM documented in this encounter [facility] 04-21-2024 Telephone encounter Note Spoke jose patient's , advising below. She stated patient had an appointment with ophthalmology in June and she will see about getting that moved up sooner.She stated understanding re: completing audiogram and ophthalmology appointment prior to patient stating medication. Esther Schwartz [facility] 04-21-2024 Miscellaneous Notes Spoke jose patient's [...] I sent the prescription earlier today to [facility]. But he knows not to start until he has his baseline audiogram and ophthalmology exam. Steven Akers DO documented in this encounter [facility] 04-21-2024 Telephone encounter Note Let him or his know that he also needs a baseline ophthalmology exam prior to starting Exjade. I sent the prescription earlier today to [facility] in [place]. But he knows not to start until he has his baseline audiogram and ophthalmology exam. Steven Akers DO [facility] 04-21-2024 Miscellaneous Notes Patient scheduled for 2 units PRBC, 04/23/2024 @ 0830, [facility]. Orders faxed. Patient and lab aware. Margot Cox LPN documented in this encounter [facility] 04-21-2024 Telephone encounter Note Patient scheduled for 2 units PRBC, 04/23/2024 @ 0830, [facility]. Orders faxed. Patient and lab aware. Margot Cox LPN [facility] 04-15-2024 Telephone encounter Note One unit of PRBC ordered and scheduled at [facility] 04/16/24 11:30, order faxed and pt notified. Sara Milian LPN [facility] 04-15-2024 Miscellaneous Notes One unit of PRBC ordered and scheduled at [facility] 04/16/24 11:30, order faxed and pt notified. Sara Milian LPN documented in this encounter [facility] 04-12-2024 Telephone encounter Note Patient has [...] Please advise. Thank you. Shanta Harris MA. [facility] 04-12-2024 Miscellaneous Notes Patient has been [...] Shanta Harris MA. documented in this encounter [facility] 04-01-2024 Telephone encounter Note Patient scheduled for 2 units PRBC 04/02/2024 @ 09, [facility]. Orders faxed. Patient and lab aware. Margot Cox LPN [facility] 04-01-2024 Miscellaneous Notes Patient scheduled for 2 units PRBC 04/02/2024 @ 0915, [facility]. Orders faxed. Patient and lab aware. Margot Cox LPN documented in this encounter [facility] 03-26-2024 Telephone encounter Note Called patient and informed him that Dr. Akers reviewed message and advised that he follow-up with his PCP. Patient stated understanding. Salena Ricardo RN [facility] 03-26-2024 Miscellaneous Notes Called patient and informed him that Dr. Akers reviewed message and advised that he follow-up with his PCP. Patient stated understanding. Salena Ricardo RN documented in this encounter [facility] 03-19-2024 Telephone encounter Note Pt scheduled for transfusion, 2 units PRBC on 03/22/24 at 0730. Pt notified and order faxed. Sara Milian LPN [facility] 03-19-2024 Miscellaneous Notes Pt scheduled for transfusion, 2 units PRBC on 03/22/24 at 0730. Pt notified and order faxed. Sara Milian LPN documented in this encounter [facility] 03-16-2024 Telephone encounter Note Spoke with patient's and rescheduled. Esther Schwartz [facility] 03-16-2024 Miscellaneous Notes Spoke with patient's [...] treatment. Please advise. documented in this encounter [facility] 03-16-2024 Telephone encounter Note I would recommend doing it on Friday since staying on a routine schedule will increase the chance of it working and/or working faster. Steven Akers DO [facility] 03-16-2024 Telephone encounter Note Spouse called stating appt for 5 lab treatment had been canceled due to . Patient is asking if he should reschedule for Mejia or skip treatment. Please advise. [facility] Work Phone: 03-04-2024 Telephone encounter Note Patient scheduled for 2 units PRBC 03/05/2024 @ 0900, [facility]. Orders faxed. Patient and lab aware. Margot Cox LPN [facility] 03-04-2024 Miscellaneous Notes Patient scheduled for 2 units PRBC 03/05/2024 @ 0900, [facility]. Orders faxed. Patient and lab aware. Margot Cox LPN documented in this encounter [facility] 03-04-2024 History of Present illness Narrative Dr. Akers aware of hgb 7.5. Pt c/o weakness, hearing thumping of my heart in my ear, and getting tired easily. Vitals WNL. Pt scheduled for transfusion tomorrow at 0900 at [facility]. documented in this encounter [facility] 02-19-2024 Miscellaneous Notes Pt. Scheduled for transfusion 2 units packed cells@ [facility] 02/19@ 8 am. Pt. And lab notified, orders faxed. 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 YES Confirmed date and time for chemotherapy ? YES Other appointments (labs, imaging) discussed? YES Discussed where to park (orthotist), charge for parking YES Discussed where to [...] Layla Silva RN documented in this encounter [facility] 01-30-2024 Miscellaneous Notes First 4 cycles [...] filed. Esther Schwartz documented in this encounter [facility] 01-29-2024 Miscellaneous Notes Met with patient and introduced myself. Patient was given a My Journey binder with chemocare information, office contact information, thermometer, and additional chemotherapy resource booklets. Patient aware this nurse will review on scheduled appointment date. Salena Ricardo RN documented in this encounter [facility] 01-29-2024 Nurse Note Injection deferred, treatment discontinued. Domonique Lara LPN documented in this encounter [facility] 01-29-2024 History of Present illness Narrative [...] RBC transfusion as indicated. Transferred care to [facility] early 2021. Was treated with Inqovi [...] which included preparing to see the patient, tdmv-pm-iode patient care, completing clinical documentation, obtaining and/or reviewing separately obtained history, performing a medically appropriate examination, counseling and educating the patient/family/caregiver, ordering medications, tests, or procedures, communicating with other HCPs (not separately reported), and communicating results to the patient/family/caregiver. Steven Akers DO documented in this encounter [facility] 01-26-2024 Miscellaneous Notes Patient has been [...] care: 07/20/2024 Please advise. Thank you. Gladys Gonsalez LPN. documented in this encounter [facility] 01-15-2024 Instructions Sunday Carter PA-C - 01/15/2024 12:08 PM EST Mirtazapine: Patient drug information Access [facility] [employer] for additional drug information, tools, and databases. Copyright 1247-4406 [employer]. All rights reserved. (For additional information see [...] much, and when it happened. Last Reviewed [id number] Consumer Information Use and Disclaimer This information [...] of this information is governed by the [facility] End User License Agreement, available at https://www.virocyt.TransGaming/en/solitzel lacey/InnoPad/about/joan. 2020 [employer]. and its affiliates and/or licensors. All rights reserved. Use of [employer] is subject to the Subscription and License Agreement. 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 documented in this encounter [facility] 01-08-2024 Nurse Note Pt here for injection of lUSPATERCEPT. Given SQ two in LLQ and one in RLQ abd. Pt tolerated well. Sara Milian LPN documented in this encounter [facility] 01-01-2024 Miscellaneous Notes Pt. Scheduled for transfusion 2 units packed cells @ [facility] 01/02 @ 8:30 am. Pt. And lab notified, orders faxed. Domonique Lara LPN documented in this encounter [facility] 12-11-2023 Miscellaneous Notes Pt scheduled for one unit of PRBC 12/12/23 at [facility] at 10AM. Pt notified. Order faxed. Sara Milian LPN documented in this encounter [facility] 10-16-2023 History of Present illness Narrative Pt here for injection of Luspatercept. Given SQ 2 in LLQ and 1 RLQ. Pt tolerated well. For all other information regarding today, see today's OV note with Dr Akers. Sara Milian LPN documented in this encounter [facility] 10-16-2023 History of Present illness Narrative [...] RBC transfusion as indicated. Transferred care to [facility] early 2021. Was treated with Inqovi [...] which included preparing to see the patient, uwui-ls-ncxl patient care, completing clinical documentation, obtaining and/or reviewing separately obtained history, performing a medically appropriate examination, counseling and educating the patient/family/caregiver, communicating with other HCPs (not separately reported), and communicating results to the patient/family/caregiver. Steven Akers DO Est. Pt. Discuss recent lab results, luspatercept inj. Today. Domonique Lara LPN documented in this encounter [facility] 09-25-2023 Miscellaneous Notes Printed and placed on desk to sign. documented in this encounter [facility] 09-25-2023 Miscellaneous Notes Patient can request 5 year placard from PCP. Margot Cox LPN documented in this encounter [facility] 09-25-2023 Nurse Note Patient presents with: [...] Domonique Lara LPN documented in this encounter [facility] 09-18-2023 Miscellaneous Notes See other phone encounter. Salena Ricardo RN Patient has a standing order for CBC/poss transfusion. Salena Ricardo RN documented in this encounter [facility] 09-18-2023 Miscellaneous Notes Patient scheduled for transfusion of 1 units of PRBC to be given at [facility] on 08/19/23 at 11:30. Orders faxed, patient notified. Sara Milian LPN documented in this encounter [facility] 09-18-2023 Miscellaneous Notes SOCIAL WORK FOLLOW [...] Yes MARIAJOSE Cason documented in this encounter [facility] 09-04-2023 History of Present illness Narrative Pt here for injection of Luspatercept. Given sq, two in LLQ and one in RLQ. Pt tolerated well. Sara Milian LPN documented in this encounter [facility] 08-21-2023 Miscellaneous Notes Pt. Scheduled for transfusion 1 unit packed cells @ [facility] 08/22 @ 8 am . Pt, and lab notified, orders faxed. Domonique Lara LPN documented in this encounter [facility] 08-14-2023 Nurse Note Patient presents with: [...] Domonique Lara LPN documented in this encounter [facility] 07-24-2023 Miscellaneous Notes Spoke with patient/spouse [...] LPN SW spoke with BMS this date. Database Reporting Consultant reports pt enrollment is active through 11/09/2023. [...] Dr Guzman, retired and canceled coverage per [facility]. Per note on pt's canceled treatment: program funding has and the social work lecturer Obdulio is working on getting this renewed - patient advised they will be updated Pt's spouse calling in stating she called [employer] and they informed her that pt's account is still open with them and active through the end of this year. Pt covered Mar 12 2023-October You can reach [employer] [phone] Please call Sigrid underwood documented in this encounter [facility] 07-21-2023 Miscellaneous Notes Scheduled labs for 07/24 and then also scheduled labs out every three weeks until December. Lory PSS- please schedule patient for a lab appointment , 07/24/2023 for CBC(?TX) @ 11:00. Patient should still keep lab appointments Q 3 weeks for CBC(?TX). These will need scheduled as well. Margot Cox LPN documented in this encounter [facility] 07-03-2023 History of Present illness Narrative 78 year old male with c/o Trouble with allergies but no rhinorrhea, itchy or runny eyes, or coughing. Breathes through mouth at night. Identifies only phlegm all day off and on. 99.6F Diastolic dysfunction (primary encounter diagnosis) Abnormal echocardiogram Pulmonary hypertension (hcc) Cardiovascular interval hx: 03/10/2023 echocardiogram [facility] MENDEL Hook: LV size and LV SF [...] Sunday Carter PA-C documented in this encounter [facility] 07-03-2023 History of Present illness Narrative Luspatercept injection administered, right lower abd.tolerated well, no immediate adverse reactions noted. See office notes Domonique López LPN documented in this encounter [facility] 07-03-2023 Miscellaneous Notes Patient scheduled for 1 unit PRBC 07/04/2023 @ [facility], [facility]. Orders faxed. Patient and lab aware. Margot Cox LPN documented in this encounter [facility] 07-03-2023 History of Present illness Narrative [...] RBC transfusion as indicated. Transferred care to [facility] early 2021. Was treated with Inqovi [...] No jaundice or rash. No petechiae. NEUROLOGIC: science manager II-XII are grossly intact. No focal motor [...] - 4.00 k/uL 0.69 (L) 0.68 (L) Bent% % 3.0 4.7 Abs Bent <0.87 k/uL 0.10 0.18 Eosin% % 3.0 0.8 Abs Eosin <0.46 k/uL 0.10 0.03 Baso% % 0.0 0.3 Abs Baso <0.11 k/uL 0.00 <0.03 Brodnax% % 1.0 Myelo% % 1.0 Left Shift [...] which included preparing to see the patient, iebi-yv-gcwr patient care, completing clinical documentation, obtaining and/or reviewing separately obtained history, performing a medically appropriate examination, counseling and educating the patient/family/caregiver, ordering medications, tests, or procedures, communicating with other HCPs (not separately reported), and communicating results to the patient/family/caregiver. Steven A Masci, DO documented in this encounter [facility] 06-23-2023 Miscellaneous Notes Note from pharmacy states tadalafil is not available from artificial intelligence specialist and no date when it will be in. Do you want to replace? Ashwin Montenegro LPN documented in this encounter [facility] 06-23-2023 Miscellaneous Notes Patient phones requesting refills as follows: Requested Prescriptions Pending Prescriptions Disp Refills Tadalafil 2.5 mg tab 30 tablet 5 Sig: Take 1 tablet by mouth once daily. LOS 04/03/23 NOV 07/03/23 Please review and advise. Ashwin Montenegro LPN documented in this encounter [facility] 06-12-2023 Nurse Note Pt here for injection of Luspatercept. Given sq in LLQ. Pt tolerated well. For all other information regarding today, see today's OV note with Dr Akers. Sara Milian LPN documented in this encounter [facility] 06-12-2023 History of Present illness Narrative [...] RBC transfusion as indicated. Transferred care to [facility] early 2021. Was treated with Inqovi [...] No jaundice or rash. No petechiae. NEUROLOGIC: science manager II-XII are grossly intact. 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 [...] which included preparing to see the patient, igwb-vs-sqgb patient care, completing clinical documentation, obtaining and/or reviewing separately obtained history, performing a medically appropriate examination, counseling and educating the patient/family/caregiver, ordering medications, tests, or procedures, communicating with other HCPs (not separately reported), and communicating results to the patient/family/caregiver. Steven Akers DO documented in this encounter [facility] 06-05-2023 Miscellaneous Notes Patient scheduled for 1 unit PRBC 06/06/2023 @ [facility], [facility]. Orders faxed. Patient and lab aware. Margot Cox LPN documented in this encounter [facility] 05-22-2023 History of Present illness Narrative [...] RBC transfusion as indicated. Transferred care to [facility] early 2021. Was treated with Inqovi [...] No jaundice or rash. No petechiae. NEUROLOGIC: science manager II-XII are grossly intact. No focal motor [...] which included preparing to see the patient, porw-ys-bbro patient care, completing clinical documentation, obtaining and/or reviewing separately obtained history, performing a medically appropriate examination, counseling and educating the patient/family/caregiver, ordering medications, tests, or procedures, communicating with other HCPs (not separately reported), and communicating results to the patient/family/caregiver. Steven Akers DO documented in this encounter [facility] 05-01-2023 Miscellaneous Notes Patient's notified. Margot Cox LPN Please inform pt. that KUB shows: Moderate amount of stool throughout colon. Advise pt. to take miralax daily. Thank you. Sisi Blanchard APRN.KAYLEE documented in this encounter [facility] 05-01-2023 History of Present illness Narrative [...] 9:15 AM Dottie Berry RN Research Nurse [facility] [phone] documented in this encounter [facility] 05-01-2023 History of Present illness Narrative [...] 2023 10:10 AM documented in this encounter [facility] 05-01-2023 History of Present illness Narrative Pt here for injection of luspatercept. Given sq in right arm (always). Pt tolerated well. For all other information regarding today, see today's OV note with Sisi Blanchard APRN, KAYLEE. documented in this encounter [facility] 05-01-2023 Miscellaneous Notes Patient scheduled for 1 unit PRBC 05/02/2023 @ [facility], [facility]. Orders faxed. Patient and lab aware. Margot Cox LPN documented in this encounter [facility] 05-01-2023 History of Present illness Narrative [...] 1) Periodic RBC transfusion. Transferred care to [facility] early 2021. Was treated with Inqovi [...] - 4.00 k/uL 0.99 (L) 0.68 (L) Bent% % 5.0 5.0 Abs Bent <0.87 k/uL 0.17 0.17 Eosin% % 0.0 1.0 Abs Eosin <0.46 k/uL 0.00 0.03 Baso% % 1.0 0.0 Abs Baso <0.11 k/uL 0.03 0.00 Brodnax% % 1.0 1.0 Myelo% % 1.0 1.0 [...] Sisi Blanchard APRN.KAYLEE documented in this encounter [facility] 04-10-2023 Miscellaneous Notes Summary: AVS 04/10 Check out comments: - Proceed as scheduled today for luspatercept. - Follow up as scheduled. - Pt. aware to call office with any questions/concerns. documented in this encounter [facility]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 04/28/2017 documented as of this encounter (statuses as of 12/19/2022) [facility]arr[facility]* Problem Noted Date Resolved Date 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 04/28/2017 documented as of this encounter (statuses as of 12/24/2022) [facility]arr[facility]* Problem Noted Date Resolved Date 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 04/28/2017 documented as of this encounter (statuses as of 01/08/2023) [facility]* Problem Noted Date Resolved Date 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 04/28/2017 documented as of this encounter (statuses as of 01/08/2023) [facility] Narrative* Problem Noted Date Resolved Date 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 04/28/2017 documented as of this encounter (statuses as of 01/08/2023) [facility]* Problem Noted Date Resolved Date 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 04/28/2017 documented as of this encounter (statuses as of 01/24/2023) [facility]arrative* Problem Noted Date Resolved Date 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 04/28/2017 documented as of this encounter (statuses as of 01/24/2023) [facility]arr[facility]* Problem Noted Date Resolved Date 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 04/28/2017 documented as of this encounter (statuses as of 01/24/2023) [facility]* Problem Noted Date Resolved Date 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 04/28/2017 documented as of this encounter (statuses as of 01/26/2023) [facility] History of Past illness Narrative* Problem Noted Date Resolved Date 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 04/28/2017 documented as of this encounter (statuses as of 02/04/2023) [facility] History of Past illness Narrative* Problem Noted Date Resolved Date 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 04/28/2017 documented as of this encounter (statuses as of 02/05/2023) [facility] History of Past illness Narrative* Problem Noted Date Resolved Date 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 04/28/2017 documented as of this encounter (statuses as of 02/06/2023) [facility] History of Past illness Narrative* Problem Noted Date Resolved Date 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 04/28/2017 documented as of this encounter (statuses as of 02/07/2023) [facility] History of Past illness Narrative* Problem Noted Date Resolved Date 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 04/28/2017 documented as of this encounter (statuses as of 02/10/2023) [facility] History of Past illness Narrative* Problem Noted Date Resolved Date 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 04/28/2017 documented as of this encounter (statuses as of 02/13/2023) [facility] History of Past illness Narrative* Problem Noted Date Resolved Date 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 04/28/2017 documented as of this encounter (statuses as of 02/20/2023) [facility] History of Past illness Narrative* Problem Noted Date Resolved Date 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 04/28/2017 documented as of this encounter (statuses as of 02/28/2023) [facility] History of Past illness Narrative* Problem Noted Date Resolved Date 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 04/28/2017 documented as of this encounter (statuses as of 02/28/2023) [facility] History of Past illness Narrative* Problem Noted Date Resolved Date 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 04/28/2017 documented as of this encounter (statuses as of 03/06/2023) [facility] History of Past illness Narrative* Problem Noted Date Resolved Date 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 04/28/2017 documented as of this encounter (statuses as of 03/06/2023) [facility] History of Past illness Narrative* Problem Noted Date Resolved Date 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 04/28/2017 documented as of this encounter (statuses as of 03/06/2023) [facility] History of Past illness Narrative* Problem Noted Date Resolved Date 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 04/28/2017 documented as of this encounter (statuses as of 03/07/2023) [facility] History of Past illness Narrative* Problem Noted Date Resolved Date 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 04/28/2017 documented as of this encounter (statuses as of 03/12/2023) [facility] History of Past illness Narrative* Problem Noted Date Resolved Date 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 04/28/2017 documented as of this encounter (statuses as of 03/20/2023) [facility] History of Past illness Narrative* Problem Noted Date Resolved Date 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 04/28/2017 documented as of this encounter (statuses as of 03/20/2023) [facility] History of Past illness Narrative* Problem Noted Date Resolved Date 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 04/28/2017 documented as of this encounter (statuses as of 04/10/2023) [facility] History of Past illness Narrative* Problem Noted Date Resolved Date 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 04/28/2017 documented as of this encounter (statuses as of 04/10/2023) [facility] History of Past illness Narrative* Problem Noted Date Resolved Date 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 04/28/2017 documented as of this encounter (statuses as of 04/11/2023) [facility] History of Past illness Narrative* Problem Noted Date Resolved Date 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 04/28/2017 documented as of this encounter (statuses as of 04/11/2023) [facility] History of Past illness Narrative* Problem Noted Date Resolved Date 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 04/28/2017 documented as of this encounter (statuses as of 05/01/2023) [facility] History of Past illness Narrative* Problem Noted Date Resolved Date 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 04/28/2017 documented as of this encounter (statuses as of 05/01/2023) [facility] History of Past illness Narrative* Problem Noted Date Resolved Date 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 04/28/2017 documented as of this encounter (statuses as of 05/02/2023) [facility] History of Past illness Narrative* Problem Noted Date Resolved Date 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 04/28/2017 documented as of this encounter (statuses as of 05/02/2023) [facility] History of Past illness Narrative* Problem Noted Date Resolved Date 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 04/28/2017 documented as of this encounter (statuses as of 05/02/2023) [facility] History of Past illness Narrative* Problem Noted Date Diagnosed Date Resolved Date 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 7 documented as of this encounter (statuses as of 05/22/2023) [facility] History of Past illness Narrative* Problem Noted Date Diagnosed Date Resolved Date 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 7 documented as of this encounter (statuses as of 06/05/2023) [facility] History of Past illness Narrative* Problem Noted Date Diagnosed Date Resolved Date 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 7 documented as of this encounter (statuses as of 06/12/2023) [facility] History of Past illness Narrative* Problem Noted Date Diagnosed Date Resolved Date 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 7 documented as of this encounter (statuses as of 06/12/2023) [facility] History of Past illness Narrative* Problem Noted Date Diagnosed Date Resolved Date 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 7 documented as of this encounter (statuses as of 06/24/2023) [facility] History of Past illness Narrative* Problem Noted Date Diagnosed Date Resolved Date 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 7 documented as of this encounter (statuses as of 06/24/2023) [facility] History of Past illness Narrative* Problem Noted Date Diagnosed Date Resolved Date 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 7 documented as of this encounter (statuses as of 07/03/2023) [facility] History of Past illness Narrative* Problem Noted Date Diagnosed Date Resolved Date 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 7 documented as of this encounter (statuses as of 07/03/2023) [facility] History of Past illness Narrative* Problem Noted Date Diagnosed Date Resolved Date 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 7 documented as of this encounter (statuses as of 07/04/2023) [facility] History of Past illness Narrative* Problem Noted Date Diagnosed Date Resolved Date 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 7 documented as of this encounter (statuses as of 07/08/2023) [facility] History of Past illness Narrative* Problem Noted Date Diagnosed Date Resolved Date 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 7 documented as of this encounter (statuses as of 07/22/2023) [facility] History of Past illness Narrative* Problem Noted Date Diagnosed Date Resolved Date 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 7 documented as of this encounter (statuses as of 07/24/2023) [facility] History of Past illness Narrative* Problem Noted Date Diagnosed Date Resolved Date 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 7 documented as of this encounter (statuses as of 08/15/2023) [facility] History of Past illness Narrative* Problem Noted Date Diagnosed Date Resolved Date 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 7 documented as of this encounter (statuses as of 08/21/2023) [facility] History of Past illness Narrative* Problem Noted Date Diagnosed Date Resolved Date 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 7 documented as of this encounter (statuses as of 09/04/2023) [facility] History of Past illness Narrative* Problem Noted Date Diagnosed Date Resolved Date 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 7 documented as of this encounter (statuses as of 09/05/2023) [facility] History of Past illness Narrative* Problem Noted Date Diagnosed Date Resolved Date 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 7 documented as of this encounter (statuses as of 09/14/2023) [facility] History of Past illness Narrative* Problem Noted Date Diagnosed Date Resolved Date 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 7 documented as of this encounter (statuses as of 09/14/2023) [facility] History of Past illness Narrative* Problem Noted Date Diagnosed Date Resolved Date 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 7 documented as of this encounter (statuses as of 09/18/2023) [facility] History of Past illness Narrative* Problem Noted Date Diagnosed Date Resolved Date 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 7 documented as of this encounter (statuses as of 09/19/2023) [facility] History of Past illness Narrative* Problem Noted Date Diagnosed Date Resolved Date 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 7 documented as of this encounter (statuses as of 09/25/2023) [facility] History of Past illness Narrative* Problem Noted Date Diagnosed Date Resolved Date 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 7 documented as of this encounter (statuses as of 09/26/2023) [facility] History of Past illness Narrative* Problem Noted Date Diagnosed Date Resolved Date 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 7 documented as of this encounter (statuses as of 09/26/2023) [facility] History of Past illness Narrative* Problem Noted Date Diagnosed Date Resolved Date 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 7 documented as of this encounter (statuses as of 10/16/2023) [facility] History of Past illness Narrative* Problem Noted Date Diagnosed Date Resolved Date 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 7 documented as of this encounter (statuses as of 10/17/2023) [facility] History of Past illness Narrative* Problem Noted Date Diagnosed Date Resolved Date 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 7 documented as of this encounter (statuses as of 12/11/2023) [facility] History of Past illness Narrative* Problem Noted Date Diagnosed Date Resolved Date 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 7 documented as of this encounter (statuses as of 12/31/2023) [facility] History of Past illness Narrative* Problem Noted Date Diagnosed Date Resolved Date 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 7 documented as of this encounter (statuses as of 01/01/2024) [facility] History of Past illness Narrative* Problem Noted Date Diagnosed Date Resolved Date 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 7 documented as of this encounter (statuses as of 01/08/2024) [facility] History of Past illness Narrative* Problem Noted Date Diagnosed Date Resolved Date 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 7 documented as of this encounter (statuses as of 01/12/2024) [facility] Diagnosis Onset Date Resolution Status Abnormal magnetic resonance imaging of bone chronic 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 magnetic resonance imaging of bone chronic Myelodysplastic syndrome chr onic [place]strom macroglobulinemia chronic [facility] Work Phone: Evaluation note* Diagnosis Onset [...] anemia acute Symptomatic anemia acute Thrombocytopenia acute [facility] Work Phone: Evaluation note* Diagnosis Onset [...] acute Thrombocytopenia acute Myelodysplastic syndrome chr onic [facility] Work Phone: Evaluation note* Diagnosis Encounter for support and coordination of transition of care documented in this encounter [facility] note* Diagnosis MDS (myelodysplastic syndrome), low grade (HCC)- Primary Low grade myelodysplastic syndrome lesions 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 (HCC) Macroglobulinemia documented in this encounter [facility] note* Diagnosis MDS (myelodysplastic syndrome), low grade (HCC)- Primary Low grade myelodysplastic syndrome lesions 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 (HCC) Macroglobulinemia [place] macroglobulinemia (HCC) Macroglobulinemia Splenomegaly documented in this encounter [facility] note* Diagnosis Benign prostatic hyperplasia with nocturia documented in this encounter [facility] note* Diagnosis MDS (myelodysplastic syndrome), low grade (HCC)- Primary Low grade myelodysplastic syndrome lesions 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 (HCC) Macroglobulinemia Splenomegaly documented in this encounter [facility] note* Diagnosis MDS (myelodysplastic syndrome), low grade (HCC)- Primary Low grade myelodysplastic syndrome lesions Macrocytic anemia Unspecified deficiency anemia 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 (HCC) Macroglobulinemia Renal cyst 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, 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 documented in this encounter [facility] note* Diagnosis BPH with obstruction/lower urinary tract symptoms Hypertrophy of prostate with urinary obstruction and other lower urinary tract symptoms (LUTS) documented in this encounter [facility] note* Diagnosis MDS (myelodysplastic syndrome), low grade (HCC)- Primary Low grade myelodysplastic syndrome lesions Macrocytic anemia Unspecified deficiency anemia 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 (HCC) Macroglobulinemia MDS (myelodysplastic syndrome), low grade (HCC)- Primary Low grade myelodysplastic syndrome lesions 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 (HCC) Macroglobulinemia documented in this encounter [facility] note* Diagnosis MDS (myelodysplastic syndrome), low grade (HCC)- Primary Low grade myelodysplastic syndrome lesions 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 (HCC) Macroglobulinemia documented in this encounter [facility] note* Diagnosis MDS (myelodysplastic syndrome), low grade (HCC)- Primary Low grade myelodysplastic syndrome lesions documented in this encounter [facility] note* Diagnosis MDS (myelodysplastic syndrome), low grade (HCC)- Primary Low grade myelodysplastic syndrome lesions 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) Macroglobulinemia Renal cyst 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, 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 [facility] Diagnosis Onset Date Resolution Status High serum ferritin acute Myelodysplastic syndrome chr onic High serum ferritin acute Myelodysplastic syndrome chr onic [place] macroglobulinemia [facility] Work Phone: Evaluation note* Diagnosis MDS (myelodysplastic syndrome), low grade (HCC)- Primary Low grade myelodysplastic syndrome lesions 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 (HCC) Macroglobulinemia 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, 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 [facility] Diagnosis Idiopathic aplastic anemia (HCC)- Primary Aplastic anemia, unspecified MDS (myelodysplastic syndrome), low grade (HCC) Low grade myelodysplastic syndrome lesions [facility] MDS (myelodysplastic syndrome), low grade (HCC) Low grade myelodysplastic syndrome lesions [facility] Diagnosis Bradycardia- Primary Other specified cardiac dysrhythmias [facility] Diagnosis Idiopathic aplastic anemia (HCC)- Primary Aplastic anemia, unspecified MDS (myelodysplastic syndrome), low grade (HCC) Low grade myelodysplastic syndrome lesions [facility] Diagnosis MDS (myelodysplastic syndrome), low grade (HCC)- Primary Low grade myelodysplastic syndrome lesions [facility] Diagnosis Onset Date Resolution Status High serum ferritin acute Myelodysplastic syndrome chr onic [place] macroglobulinemia chronic BARRON (dyspnea on exertion) ac ruby Fatigue acute HTN (hypertension), benign a cute Lightheadedness acute Myelodysplastic syndrome chr [facility] Work Phone: Evaluation note* Diagnosis Onset Date Resolution Status BARORN (dyspnea on exertion) ac ruby Fatigue acute HTN (hypertension), benign a cute Lightheadedness acute Myelodysplastic syndrome chr ic [facility] Work Phone: Evaluation note* Diagnosis Idiopathic aplastic anemia (HCC)- Primary Aplastic anemia, unspecified MDS (myelodysplastic syndrome), low grade (HCC) Low grade myelodysplastic syndrome lesions [facility] Diagnosis Idiopathic aplastic anemia (HCC)- Primary Aplastic anemia, unspecified MDS (myelodysplastic syndrome), low grade (HCC) Low grade myelodysplastic syndrome lesions [facility]* Diagnosis MDS (myelodysplastic syndrome), low grade (HCC)- Primary Low grade myelodysplastic syndrome lesions Pancytopenia (HCC) Other pancytopenia [facility]* Diagnosis Idiopathic aplastic anemia (HCC)- Primary Aplastic anemia, unspecified MDS (myelodysplastic syndrome), low grade (HCC) Low grade myelodysplastic syndrome lesions [facility]* Diagnosis MDS (myelodysplastic syndrome), low grade (HCC)- Primary Low grade myelodysplastic syndrome lesions Pancytopenia (HCC) Other pancytopenia Left lower quadrant abdominal pain [facility]* Diagnosis Onset Date Resolution Status BARRON (dyspnea on exertion) ch ronic Fatigue chronic HTN (hypertension), benign c hronic Lightheadedness chronic Myelodysplastic syndrome [facility] onic BARRON (dyspnea on exertion) ch ronic Fatigue chronic HTN (hypertension), benign c hronic Lightheadedness chronic Myelodysplastic syndrome [facility] Work Phone: Evaluation note* Diagnosis MDS (myelodysplastic syndrome), low grade (HCC)- Primary Low grade myelodysplastic syndrome lesions Macrocytic anemia Unspecified deficiency anemia 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 (HCC) Macroglobulinemia Iron overload, 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 Renal cyst Unspecified congenital cystic kidney disease Hypervolemia, unspecified hypervolemia type [facility]* Diagnosis MDS (myelodysplastic syndrome), low grade (HCC)- Primary Low grade myelodysplastic syndrome lesions 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 (HCC) Macroglobulinemia Iron overload, 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 Renal cyst Unspecified congenital cystic kidney disease [facility] Diagnosis Idiopathic aplastic anemia (HCC)- Primary Aplastic anemia, unspecified MDS (myelodysplastic syndrome), low grade (HCC) Low grade myelodysplastic syndrome lesions [facility] Diagnosis Onset Date Resolution Status BARRON (dyspnea on exertion) ch ronic Fatigue chronic HTN (hypertension), benign c hronic Lightheadedness chronic Myelodysplastic syndrome chr [facility] Work Phone: Evaluation note* Diagnosis BPH with obstruction/lower urinary tract symptoms Hypertrophy of prostate with urinary obstruction and other lower urinary tract symptoms (LUTS) [facility] Diagnosis BPH with obstruction/lower urinary tract symptoms Hypertrophy of prostate with urinary obstruction and other lower urinary tract symptoms (LUTS) [facility]* Diagnosis Idiopathic aplastic anemia (HCC)- Primary Aplastic anemia, unspecified MDS (myelodysplastic syndrome), low grade (HCC) Low grade myelodysplastic syndrome lesions [facility]* Diagnosis MDS (myelodysplastic syndrome), low grade (HCC)- Primary Low grade myelodysplastic syndrome lesions Iron overload, 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 (HCC) Macroglobulinemia documented [facility]* Diagnosis MDS (myelodysplastic syndrome), low grade [...] elsewhere [facility]ERD [facility] Diagnosis Idiopathic aplastic anemia (HCC)- Primary Aplastic anemia, unspecified MDS (myelodysplastic syndrome), low grade (HCC) Low grade myelodysplastic syndrome lesions [facility]* Diagnosis Idiopathic aplastic anemia (HCC)- Primary Aplastic anemia, unspecified MDS (myelodysplastic syndrome), low grade (HCC) Low grade myelodysplastic syndrome lesions documented in this encounter [facility] note* Diagnosis MDS (myelodysplastic syndrome), low grade (HCC) Low grade myelodysplastic syndrome lesions Pancytopenia (HCC) Other pancytopenia Left lower quadrant abdominal pain documented in this encounter [facility] note* Diagnosis MDS (myelodysplastic syndrome), low grade (HCC) Low grade myelodysplastic syndrome lesions [place] macroglobulinemia (HCC) Macroglobulinemia Splenomegaly documented in this encounter [facility] noteNo assessment information availableWParkwood Hospital Work Phone: Evaluation note* Diagnosis Idiopathic aplastic anemia (HCC)- Primary Aplastic anemia, unspecified MDS (myelodysplastic syndrome), low grade (HCC) Low grade myelodysplastic syndrome lesions documented in this encounter [facility] note* Diagnosis MDS (myelodysplastic syndrome), low grade (HCC)- Primary Low grade myelodysplastic syndrome lesions documented in this encounter [facility] note* Diagnosis Idiopathic aplastic anemia (HCC)- Primary Aplastic anemia, unspecified MDS (myelodysplastic syndrome), low grade (HCC) Low grade myelodysplastic syndrome lesions documented in this encounter [facility] note* Diagnosis MDS (myelodysplastic syndrome), low grade (HCC)- Primary Low grade myelodysplastic syndrome lesions 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 (HCC) Macroglobulinemia Iron overload, 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 documented in this encounter [facility] note* Diagnosis Idiopathic aplastic anemia (HCC)- Primary Aplastic anemia, unspecified MDS (myelodysplastic syndrome), low grade (HCC) Low grade myelodysplastic syndrome lesions documented in this encounter [facility] note* Diagnosis BPH with obstruction/lower urinary tract symptoms Hypertrophy of prostate with urinary obstruction and other lower urinary tract symptoms (LUTS) documented in this encounter [facility] note* Diagnosis Diastolic dysfunction- Primary [...] insomnia Insomnia, unspecified documented in this encounter [facility] note* Diagnosis MDS (myelodysplastic syndrome), low grade (HCC)- Primary Low grade myelodysplastic syndrome lesions 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 (HCC) Macroglobulinemia Iron overload, 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 Idiopathic aplastic anemia (HCC) Aplastic anemia, unspecified [facility]* Diagnosis MDS (myelodysplastic syndrome), low grade (HCC)- Primary Low grade myelodysplastic syndrome lesions documented in this encounter [facility] note* Diagnosis MDS (myelodysplastic syndrome), low grade (HCC)- Primary Low grade myelodysplastic syndrome lesions Macrocytic anemia Unspecified deficiency anemia 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 (HCC) Macroglobulinemia Iron overload, 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 documented in this encounter [facility] note* Diagnosis Onset Date Resolution Status HTN (hypertension), benign c hronic Lightheadedness chronic Myelodysplastic syndrome [facility] Work Phone: Evaluation note* Diagnosis Encounter for education- Primary Counseling NOS MDS (myelodysplastic syndrome), low grade (HCC) Low grade myelodysplastic syndrome lesions documented in this encounter [facility] note* Diagnosis MDS (myelodysplastic syndrome), low grade (HCC)- Primary Low grade myelodysplastic syndrome lesions Macrocytic anemia Unspecified deficiency anemia 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 (HCC) Macroglobulinemia Iron overload, 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 documented in this encounter [facility] note* Diagnosis 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 (HCC)- Primary Macroglobulinemia Macrocytic anemia Unspecified deficiency anemia MDS (myelodysplastic syndrome), low grade (HCC) Low grade myelodysplastic syndrome lesions documented in this encounter [facility] note* Diagnosis Macrocytic anemia- Primary Unspecified deficiency anemia MDS (myelodysplastic syndrome), low grade (HCC) Low grade myelodysplastic syndrome lesions documented in this encounter [facility] note* Diagnosis Macrocytic anemia- Primary Unspecified deficiency anemia MDS (myelodysplastic syndrome), low grade (HCC) Low grade myelodysplastic syndrome lesions documented in this encounter [facility] note* Diagnosis Macrocytic anemia- Primary Unspecified deficiency anemia MDS (myelodysplastic syndrome), low grade (HCC) Low grade myelodysplastic syndrome lesions documented in this encounter [facility] note* Diagnosis Chronic midline low back pain without sciatica MDS (myelodysplastic syndrome), low grade (HCC) Low grade myelodysplastic syndrome lesions 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 (HCC) Macroglobulinemia documented in this encounter [facility] note* Diagnosis MDS (myelodysplastic syndrome), low grade (HCC)- Primary Low grade myelodysplastic syndrome lesions Macrocytic anemia Unspecified deficiency anemia documented in this encounter [facility] note* Diagnosis MDS (myelodysplastic syndrome), low grade (HCC)- Primary Low grade myelodysplastic syndrome lesions Macrocytic anemia Unspecified deficiency anemia documented in this encounter [facility] note* Diagnosis MDS (myelodysplastic syndrome), low grade (HCC)- Primary Low grade myelodysplastic syndrome lesions Macrocytic anemia Unspecified deficiency anemia documented in this encounter [facility] note* Diagnosis Chronic midline low back pain without sciatica MDS (myelodysplastic syndrome), low grade (HCC) Low grade myelodysplastic syndrome lesions 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 (HCC) Macroglobulinemia documented in this encounter [facility] note* Diagnosis MDS (myelodysplastic syndrome), low grade (HCC)- Primary Low grade myelodysplastic syndrome lesions Macrocytic anemia Unspecified deficiency anemia documented in this encounter [facility] note* Diagnosis MDS (myelodysplastic syndrome), low grade (HCC) Low grade myelodysplastic syndrome lesions documented in this encounter [facility] note* Diagnosis Chronic midline low back pain without sciatica MDS (myelodysplastic syndrome), low grade (HCC) Low grade myelodysplastic syndrome lesions 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 (HCC) Macroglobulinemia documented in this encounter [facility] note* Diagnosis MDS (myelodysplastic syndrome), low grade (HCC)- Primary Low grade myelodysplastic syndrome lesions Macrocytic anemia Unspecified deficiency anemia [facility]* Diagnosis MDS (myelodysplastic syndrome), low grade (HCC)- Primary Low grade myelodysplastic syndrome lesions Macrocytic anemia Unspecified deficiency anemia [facility]* Diagnosis MDS (myelodysplastic syndrome), low grade (HCC)- Primary Low grade myelodysplastic syndrome lesions Macrocytic anemia Unspecified deficiency anemia [facility]* Diagnosis Chronic midline low back pain without sciatica MDS (myelodysplastic syndrome), low grade (HCC) Low grade myelodysplastic syndrome lesions 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 (HCC) Macroglobulinemia [facility]* Diagnosis MDS (myelodysplastic syndrome), low grade (HCC)- Primary Low grade myelodysplastic syndrome lesions Macrocytic anemia Unspecified deficiency anemia [facility]* Diagnosis Splenomegaly- Primary [facility]* Diagnosis MDS (myelodysplastic syndrome), low grade (HCC)- Primary Low grade myelodysplastic syndrome lesions Macrocytic anemia Unspecified deficiency anemia [facility] Diagnosis Splenomegaly [facility]* Diagnosis Chronic midline low back pain without sciatica MDS (myelodysplastic syndrome), low grade (HCC) Low grade myelodysplastic syndrome lesions [place] macroglobulinemia (HCC) Macroglobulinemia [facility]* Diagnosis MDS (myelodysplastic syndrome), low grade (HCC)- Primary Low grade myelodysplastic syndrome lesions [facility]* Diagnosis BPH with obstruction/lower urinary tract symptoms Hypertrophy of prostate with urinary obstruction and other lower urinary tract symptoms (LUTS) [facility]* Diagnosis Anxiety with depression- Primary Encounter for screening examination for other mental health and behavioral disorders Screening for depression Polyneuropathy in other diseases classified elsewhere (HCC) Polyneuropathy in other diseases classified elsewhere Diastolic dysfunction Heart disease, unspecified Early satiety MDS (myelodysplastic syndrome), low grade (HCC) Low grade myelodysplastic syndrome lesions Chronic fatigue Other malaise and fatigue [facility]* Diagnosis [place] macroglobulinemia (HCC)- Primary Macroglobulinemia MDS (myelodysplastic syndrome), low grade (HCC) Low grade myelodysplastic syndrome lesions Macrocytic anemia Unspecified deficiency anemia [facility]* Diagnosis Subclinical hypothyroidism- Primary Other specified acquired hypothyroidism documented [facility]* Diagnosis MDS (myelodysplastic syndrome), low grade (HCC)- Primary Low grade myelodysplastic syndrome lesions Macrocytic anemia Unspecified deficiency anemia documented in this encounter [facility] note* Diagnosis MDS (myelodysplastic syndrome), low grade (HCC)- Primary Low grade myelodysplastic syndrome lesions Anemia, unspecified type documented in this encounter [facility] note* Diagnosis MDS (myelodysplastic syndrome), low grade (HCC) Low grade myelodysplastic syndrome lesions documented in this encounter [facility] note* Diagnosis MDS (myelodysplastic syndrome), low grade (HCC)- Primary Low grade myelodysplastic syndrome lesions Macrocytic anemia Unspecified deficiency anemia [facility]* Diagnosis Chronic midline low back pain without sciatica MDS (myelodysplastic syndrome), low grade (HCC) Low grade myelodysplastic syndrome lesions [place] macroglobulinemia Macroglobulinemia documented in this encounter [facility] note* Diagnosis Prostatitis, acute Acute prostatitis documented in this encounter [facility] note* Diagnosis MDS (myelodysplastic syndrome), low grade (HCC)- Primary Low grade myelodysplastic syndrome lesions Macrocytic anemia Unspecified deficiency anemia documented [facility]* Diagnosis MDS (myelodysplastic syndrome), low grade (HCC)- Primary Low grade myelodysplastic syndrome lesions Macrocytic anemia Unspecified deficiency anemia documented in this encounter [facility] note* Diagnosis [place] macroglobulinemia- Primary Macroglobulinemia MDS (myelodysplastic syndrome), low grade (HCC) Low grade myelodysplastic syndrome lesions Macrocytic anemia Unspecified deficiency anemia documented in this encounter [facility] note* Diagnosis MDS (myelodysplastic syndrome), low grade (HCC)- Primary Low grade myelodysplastic syndrome lesions Macrocytic anemia Unspecified deficiency anemia [facility]* Diagnosis Chronic GERD documented in this encounter [facility] note* Diagnosis MDS (myelodysplastic syndrome), low grade (HCC)- Primary Low grade myelodysplastic syndrome lesions Macrocytic anemia Unspecified deficiency anemia [facility]* Diagnosis Chronic midline low back pain without sciatica MDS (myelodysplastic syndrome), low grade (HCC) Low grade myelodysplastic syndrome lesions [place] macroglobulinemia Macroglobulinemia documented [facility] encounter [facility]* Diagnosis MDS (myelodysplastic syndrome), low grade (HCC)- Primary Low grade myelodysplastic syndrome lesions Macrocytic anemia Unspecified deficiency anemia documented [facility]* Diagnosis MDS (myelodysplastic syndrome), low grade (HCC)- Primary Low grade myelodysplastic syndrome lesions Macrocytic anemia Unspecified deficiency anemia documented [facility]* Diagnosis MDS (myelodysplastic syndrome), low grade (HCC)- Primary Low grade myelodysplastic syndrome lesions Macrocytic anemia Unspecified deficiency anemia documented [facility]* Diagnosis Subclinical hypothyroidism Other specified acquired hypothyroidism documented [facility]* Diagnosis Chronic midline low back pain without sciatica MDS (myelodysplastic syndrome), low grade (HCC) Low grade myelodysplastic syndrome lesions [place] macroglobulinemia Macroglobulinemia documented [facility]* Diagnosis Screening for depression Anxiety with depression documented [facility]* Diagnosis BPH with obstruction/lower urinary tract symptoms Hypertrophy of prostate with urinary obstruction and other lower urinary tract symptoms (LUTS) documented [facility]* Diagnosis MDS (myelodysplastic syndrome), low grade (HCC)- Primary Low grade myelodysplastic syndrome lesions Macrocytic anemia Unspecified deficiency anemia [place] macroglobulinemia Macroglobulinemia Iron overload Other disorders of iron metabolism Chronic midline low back pain without sciatica [facility] Diagnosis Subclinical hypothyroidism Other specified acquired hypothyroidism documented [facility]* Diagnosis Chronic midline low back pain without sciatica MDS (myelodysplastic syndrome), low grade (HCC) Low grade myelodysplastic syndrome lesions [place] macroglobulinemia Macroglobulinemia documented [facility]* Diagnosis MDS (myelodysplastic syndrome), low grade (HCC) Low grade myelodysplastic syndrome lesions [facility] Diagnosis Chronic midline low back pain without sciatica MDS (myelodysplastic syndrome), low grade (HCC) Low grade myelodysplastic syndrome lesions [place] macroglobulinemia Macroglobulinemia documented [facility]* Diagnosis MDS (myelodysplastic syndrome), low grade (HCC)- Primary Low grade myelodysplastic syndrome lesions Macrocytic anemia Unspecified deficiency anemia Iron overload Other disorders of iron metabolism Chronic midline low back pain without sciatica [place] macroglobulinemia Macroglobulinemia Insomnia due to medical condition Insomnia due to medical condition classified elsewhere [facility]* Diagnosis Benign prostatic hyperplasia with nocturia [facility]* Diagnosis Screening for depression Anxiety with depression documented [facility]* Diagnosis Chronic GERD [facility]* Diagnosis Hypokalemia- Primary Hypopotassemia Anxiety with depression Urgency of urination MDS (myelodysplastic syndrome), low grade (HCC) Low grade myelodysplastic syndrome lesions BPH with obstruction/lower urinary tract symptoms Hypertrophy of prostate with urinary obstruction and other lower urinary tract symptoms (LUTS) Diastolic dysfunction Heart disease, unspecified Chronic fatigue Other malaise and fatigue documented [facility]* Diagnosis MDS (myelodysplastic syndrome), low grade (HCC) Low grade myelodysplastic syndrome lesions [facility]* Diagnosis Seasonal allergic rhinitis, unspecified trigger- Primary documented [facility] this [facility]* Diagnosis MDS (myelodysplastic syndrome), low grade (HCC)- Primary Low grade myelodysplastic syndrome lesions Chronic midline low back pain without sciatica [place] macroglobulinemia Macroglobulinemia Iron overload Other disorders of iron metabolism Insomnia due to medical condition Insomnia due to medical condition classified elsewhere [facility]* Diagnosis BPH with obstruction/lower urinary tract symptoms Hypertrophy of prostate with urinary obstruction and other lower urinary tract symptoms (LUTS) Screening for depression Anxiety with depression documented in this encounter [facility] note* Diagnosis MDS (myelodysplastic syndrome), low grade (HCC)- Primary Low grade myelodysplastic syndrome lesions Iron overload Other disorders of iron metabolism Splenomegaly [facility]* Diagnosis Subclinical hypothyroidism Other specified acquired hypothyroidism documented in this encounter [facility] note* Diagnosis MDS (myelodysplastic syndrome), low grade (HCC) Low grade myelodysplastic syndrome lesions Iron overload Other disorders of iron metabolism Splenomegaly documented in this encounter [facility] note* Diagnosis MDS (myelodysplastic syndrome), low grade (HCC)- Primary Low grade myelodysplastic syndrome lesions Macrocytic anemia Unspecified deficiency anemia [place]s macroglobulinemia (HCC) Macroglobulinemia Iron overload, 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 Your labs and CAT scan were basically unremarkable. Follow-up with your primary care provider if not improving.[facility] Work Phone: [facility] Diagnostic Procedure Only (Urgent) - Closed Specialty Diagnoses / Procedures Referred By Contac t Referred To Contact XR IMAGING Diagnoses MDS (myelodysplastic syndrome), low grade (HCC) Pancytopenia (HCC) Left lower quadrant abdominal pain Procedures XR ABDOMEN 1V SUPINE RADIOLOGIC EXAM ABDOMEN 1 VIEW Sisi Blanchard APRN.FACTORY REPRESENTATIVE [address] [place] [address] Xr Imaging Referral ID Status Reason Start Date Expiration Date V isits Requested Visits Authorized [id number] Closed Auto-Generate d Referral 05/01/2023 05/30/2024 1 1 [facility] for referral (narrative)* Diagnostic Procedure Only (Urgent) - Closed Specialty Diagnoses / Procedures Referred By Contac t Referred To Contact XR IMAGING Diagnoses MDS (myelodysplastic syndrome), low grade (HCC) Pancytopenia (HCC) Left lower quadrant abdominal pain Procedures XR ABDOMEN 1V SUPINE RADIOLOGIC EXAM ABDOMEN 1 VIEW Sisi Blanchard APRN.CNP [address] [place] [address] [place] [address] Referral ID Status Reason Start Date Expiration Date V isits Requested Visits Authorized [id number] Closed Auto-Generate d Referral 05/01/2023 05/30/2024 1 1 [facility] for referral (narrative)* Diagnostic Procedure Only (Routine) - Authorized Specialty Diagnoses / Procedures Referred By Contac t Referred To Contact US IMAGING Diagnoses Splenomegaly Procedures US ABD SPLEEN US ABDOMINAL REAL TIME W/IMAGE LIMITED Steven Akers DO [address] [place] [address] [place] [address] Referral ID Status Reason Start Date Expiration Date Visits Requested Visits Authorized [id number] Authorized Auto-Generat ed Referral 06/09/2024 07/09/2025 1 1 [facility] for referral (narrative)* Diagnostic Procedure Only (Routine) - Closed Specialty Diagnoses / Procedures Referred By Contac t Referred To Contact XR IMAGING Diagnoses Prostatitis, acute Procedures XR ABDOMEN 1V SUPINE RADIOLOGIC EXAM ABDOMEN 1 VIEW Shaheed Cervantes MD [address] [place] [address] [place] [address] Referral ID Status Reason Start Date Expiration Date V isits Requested Visits Authorized [id number] Closed Auto-Generate d Referral 09/14/2021 10/14/2022 1 1 [facility] for referral (narrative)No reason for referral information availableWParkwood Hospital Work Phone: Reason for visit Narrative* Diagnostic Procedure Only (Urgent) - Closed Specialty Diagnoses / Procedures Referred By Contac t Referred To Contact XR IMAGING Diagnoses MDS (myelodysplastic syndrome), low grade (HCC) Pancytopenia (HCC) Left lower quadrant abdominal pain Procedures XR ABDOMEN 1V SUPINE RADIOLOGIC EXAM ABDOMEN 1 VIEW Sisi Blanchard APRN.FACTORY REPRESENTATIVE [address] [place] [address] [place] [address] Referral ID Status Reason Start Date Expiration Date V isits Requested Visits Authorized [id number] Closed Auto-Generate d Referral 05/01/2023 05/30/2024 1 [facility] Diagnostic Procedure Only (Routine) - Closed Specialty Diagnoses / Procedures Referred By Tiffani webb Referred To Contact XR IMAGING Diagnoses Prostatitis, acute Procedures XR ABDOMEN 1V SUPINE RADIOLOGIC EXAM ABDOMEN 1 VIEW Shaheed Cervantes MD [address] [place] [address] [place] [address] Referral ID Status Reason Start Date Expiration Date V isits Requested Visits Authorized [id number] Closed Auto-Generate d Referral 09/14/2021 10/14/2022 1 1 [facility] Advance Directives No Advanced Directives Records FoundDocuments on File Type Date Recorded Patient Database Reporting Consultant Expl anation Advance Directive(s) 12/21/2021 5:03 PM Advance Directive(s) 09/02/2018 12:27 PM Advance Directive(s) 04/30/2017 6:58 AM Advance Directive Response Recorded Date/ Time Living Will No June 05, 2020 8:53pm Power of Psychometrician No June 05 0 8:53pm Advance Directive Response Recorded Date/ Time Living Will No May 09, 2022 6:06pm Power of Psychometrician No May 09 6:06pm Advance Directive Response Recorded Date/ Time Living Will No May 10, 2022 3 :11pm Power of Psychometrician No May 10, 2022 3:11pm Documents on File Type Date Recorded Patient Database Reporting Consultant Expl anation Advance Directive(s) 01/29/2023 8:04 AM Documents on File Type Date Recorded Patient Database Reporting Consultant Expl anation Advance Directive(s) 01/29/2023 8:04 AM Advance Directive Response Recorded Date/ Time Living Will No March 07, 2023 4:40pm Power of Psychometrician No March 07 4:40pm Advance Directive Response Recorded Date/ Time Living Will No June 19 4:20pm Power of Psychometrician No June 19 023 4:20pm Advance Directive Response Recorded Date/ Time Living Will No June 19 3:20pm Power of Psychometrician No June 19 2 023 3:20pm Advance Directive Response Recorded Date/ Time Living Will Yes February 10, 2025 12:56pm Do you have a Healthcare Power of Psychometrician? Yes February 10, 2025 12:56pm Name of Medical Power of Psychometrician ? February 10, 2025 12:56pm Chief Complaint [...] THORAX W/CONTRAST Steven Akers, DO [address] [place] [address] Ct Imaging Referral ID Status Reason Start Date Expiration Date Visits Requested Visits Authorized [id number] Pending Review Auto-Generat ed Referral 11/26/2022 12/26/2023 1 1 Specialty Diagnoses / Procedures Referred By Contac t Referred To Contact CT IMAGING Diagnoses MDS (myelodysplastic syndrome), low grade (HCC) Waldenstrom macroglobulinemia (HCC) Splenomegaly Procedures CT ABD/PEL W IVCON CT ABD & PELVIS W/CONTRAST Steven Akers, DO [address] [place] [address] Ct Imaging Referral ID Status Reason Start Date Expiration Date Visits Requested Visits Authorized [id number] Pending Review Auto-Generat ed Referral 11/26/2022 12/26/2023 1 1 Specialty Diagnoses / Procedures Referred By Contac t Referred To Contact Cardiology Diagnoses Bradycardia Procedures CONSULT TO CARDIOLOGY OFFICE/OUTPATIENT NEW HIGH MDM 60-74 MINUTES Setven Akers, DO [address] [place] [address] Referral ID Status Reason Start Date Expiration Date Visits Requested Visits Authorized [id number] Pending Review PCP Requested Referral 02/13/2023 02/13/2024 1 1 Specialty Diagnoses / Procedures Referred By Contac t [facility] Diagnoses Bradycardia Procedures ECG COMPLETE ECG ROUTINE ECG W/LEAST 12 LDS W/I&R Steven Akers, DO [address] [place] [address] [facility] [place] [address] [place] [address] Referral ID Status Reason Start Date Expiration Date Visits Requested Visits Authorized [id number] Pending Review Auto-Generat ed Referral 02/13/2023 02/13/2024 1 1 Specialty Diagnoses / Procedures Referred By Contac t Referred To Contact Diagnoses BPH with obstruction/lower urinary tract symptoms Sunday Carter PA-C [address] [place] [address] Referral ID Status Reason Start Date Expiration Date Visits Re quested Visits Authorized [id number] Closed 1 1 Specialty Diagnoses / Procedures Referred By Contac t Referred To Contact CT IMAGING Diagnoses MDS (myelodysplastic syndrome), low grade (HCC) Waldenstrom macroglobulinemia (HCC) Splenomegaly Procedures CT CHEST W IVCON DIAGNOSTIC COMPUTED TOMOGRAPHY THORAX W/CONTRAST Steven Akers, DO [address] [place] [address] Ct Imaging [facility] Referral ID Status Reason Start Date Expiration Date V isits Requested Visits Authorized [id number] Closed Auto-Generate d Referral 11/29/2022 11/09/2023 1 1 Specialty Diagnoses / Procedures Referred By Contac t Referred To Contact CT IMAGING Diagnoses MDS (myelodysplastic syndrome), low grade (HCC) Waldenstrom macroglobulinemia (HCC) Splenomegaly Procedures CT ABD/PEL W IVCON CT ABD & PELVIS W/CONTRAST Steven Akers, DO [address] [place] [address] Ct Imaging [facility] Referral ID Status Reason Start Date Expiration Date V isits Requested Visits Authorized [id number] Closed Auto-Generate d Referral 11/29/2022 11/09/2023 2 2 Referral ID Status Reason Start Date Expiration Date V isits Requested Visits Authorized [id number] Pending Review 1 1 Medications Administered Section [...] to 3 most recent administrations Medication Order [facility] Action Action Date Dose Rate Site luspatercept-aamt [...] to 3 most recent administrations Medication Order [facility] Action Dose Rate Site luspatercept-aamt 100 mg [...] to 3 most recent administrations Medication Order [facility] Action Action Dose Rate Site luspatercept-aamt 100 [...] to 3 most recent administrations Medication Order [facility] Action Action Date Dose Rate Site luspatercept-aamt [...] to 3 most recent administrations Medication Order [facility] Action Dose Rate Site luspatercept-aamt 138.95 mg [...] to 3 most recent administrations Medication Order [facility] Action Action Date Dose Rate Site luspatercept-aamt [...] to 3 most recent administrations Medication Order [facility] Action Action Date Dose Rate Site luspatercept-aamt [...] to 3 most recent administrations Medication Order [facility] Action Dose Rate Site luspatercept-aamt 138.95 mg [...] to 3 most recent administrations Medication Order [facility] Action Action Date Dose Rate Site luspatercept-aamt [...] or prosecute any alcohol or drug abuse patient.[facility]In the event this information is protected by the Federal Confidentiality of Alcohol and Drug Abuse Patient Records regulations: The Federal rules restrict any use of the information to criminally investigate or prosecute any alcohol or drug abuse patient.[facility] HospitalIn the event this information is protected by the Federal Confidentiality of Alcohol and Drug Abuse Patient Records regulations: The Federal rules restrict any use of the information to criminally investigate or prosecute any alcohol or drug abuse patient.[facility] HospitalIn the event this information is protected by the Federal Confidentiality of Alcohol and Drug Abuse Patient Records regulations: The Federal rules restrict any use of the information to criminally investigate or prosecute any alcohol or drug abuse patient.[facility] HospitalIn the event this information is protected by the Federal Confidentiality of Alcohol and Drug Abuse Patient Records regulations: The Federal rules restrict any use of the information to criminally investigate or prosecute any alcohol or drug abuse patient.[facility] HospitalIn the event this information is protected by the Federal Confidentiality of Alcohol and Drug Abuse Patient Records regulations: The Federal rules restrict any use of the information to criminally investigate or prosecute any alcohol or drug abuse patient.[facility] HospitalIn the event this information is protected by the Federal Confidentiality of Alcohol and Drug Abuse Patient Records regulations: The Federal rules restrict any use of the information to criminally investigate or prosecute any alcohol or drug abuse patient.[facility] HospitalIn the event this information is protected by the Federal Confidentiality of Alcohol and Drug Abuse Patient Records regulations: The Federal rules restrict any use of the information to criminally investigate or prosecute any alcohol or drug abuse patient.[facility] HospitalIn the event this information is protected by the Federal Confidentiality of Alcohol and Drug Abuse Patient Records regulations: The Federal rules restrict any use of the information to criminally investigate or prosecute any alcohol or drug abuse patient.[facility] HospitalIn the event this information is protected by the Federal Confidentiality of Alcohol and Drug Abuse Patient Records regulations: The Federal rules restrict any use of the information to criminally investigate or prosecute any alcohol or drug abuse patient.[facility] HospitalIn the event this information is protected by the Federal Confidentiality of Alcohol and Drug Abuse Patient Records regulations: The Federal rules restrict any use of the information to criminally investigate or prosecute any alcohol or drug abuse patient.[facility] HospitalIn the event this information is protected by the Federal Confidentiality of Alcohol and Drug Abuse Patient Records regulations: The Federal rules restrict any use of the information to criminally investigate or prosecute any alcohol or drug abuse patient.[facility] HospitalIn the event this information is protected by the Federal Confidentiality of Alcohol and Drug Abuse Patient Records regulations: The Federal rules restrict any use of the information to criminally investigate or prosecute any alcohol or drug abuse patient.[facility] HospitalIn the event this information is protected by the Federal Confidentiality of Alcohol and Drug Abuse Patient Records regulations: The Federal rules restrict any use of the information to criminally investigate or prosecute any alcohol or drug abuse patient.[facility] HospitalIn the event this information is protected by the Federal Confidentiality of Alcohol and Drug Abuse Patient Records regulations: The Federal rules restrict any use of the information to criminally investigate or prosecute any alcohol or drug abuse patient.[facility] HospitalIn the event this information is protected by the Federal Confidentiality of Alcohol and Drug Abuse Patient Records regulations: The Federal rules restrict any use of the information to criminally investigate or prosecute any alcohol or drug abuse patient.[facility] HospitalIn the event this information is protected by the Federal Confidentiality of Alcohol and Drug Abuse Patient Records regulations: The Federal rules restrict any use of the information to criminally investigate or prosecute any alcohol or drug abuse patient.[facility] HospitalIn the event this information is protected by the Federal Confidentiality of Alcohol and Drug Abuse Patient Records regulations: The Federal rules restrict any use of the information to criminally investigate or prosecute any alcohol or drug abuse patient.[facility] HospitalIn the event this information is protected by the Federal Confidentiality of Alcohol and Drug Abuse Patient Records regulations: The Federal rules restrict any use of the information to criminally investigate or prosecute any alcohol or drug abuse patient.[facility] HospitalIn the event this information is protected by the Federal Confidentiality of Alcohol and Drug Abuse Patient Records regulations: The Federal rules restrict any use of the information to criminally investigate or prosecute any alcohol or drug abuse patient.[facility] HospitalIn the event this information is protected by the Federal Confidentiality of Alcohol and Drug Abuse Patient Records regulations: The Federal rules restrict any use of the information to criminally investigate or prosecute any alcohol or drug abuse patient.[facility] HospitalIn the event this information is protected by the Federal Confidentiality of Alcohol and Drug Abuse Patient Records regulations: The Federal rules restrict any use of the information to criminally investigate or prosecute any alcohol or drug abuse patient.[facility] HospitalIn the event this information is protected by the Federal Confidentiality of Alcohol and Drug Abuse Patient Records regulations: The Federal rules restrict any use of the information to criminally investigate or prosecute any alcohol or drug abuse patient.[facility] HospitalIn the event this information is protected by the Federal Confidentiality of Alcohol and Drug Abuse Patient Records regulations: The Federal rules restrict any use of the information to criminally investigate or prosecute any alcohol or drug abuse patient.[facility] HospitalIn the event this information is protected by the Federal Confidentiality of Alcohol and Drug Abuse Patient Records regulations: The Federal rules restrict any use of the information to criminally investigate or prosecute any alcohol or drug abuse patient.[facility] HospitalIn the event this information is protected by the Federal Confidentiality of Alcohol and Drug Abuse Patient Records regulations: The Federal rules restrict any use of the information to criminally investigate or prosecute any alcohol or drug abuse patient.[facility] HospitalIn the event this information is protected by the Federal Confidentiality of Alcohol and Drug Abuse Patient Records regulations: The Federal rules restrict any use of the information to criminally investigate or prosecute any alcohol or drug abuse patient.[facility] HospitalIn the event this information is protected by the Federal Confidentiality of Alcohol and Drug Abuse Patient Records regulations: The Federal rules restrict any use of the information to criminally investigate or prosecute any alcohol or drug abuse patient.[facility] HospitalIn the event this information is protected by the Federal Confidentiality of Alcohol and Drug Abuse Patient Records regulations: The Federal rules restrict any use of the information to criminally investigate or prosecute any alcohol or drug abuse patient.[facility] HospitalIn the event this information is protected by the Federal Confidentiality of Alcohol and Drug Abuse Patient Records regulations: The Federal rules restrict any use of the information to criminally investigate or prosecute any alcohol or drug abuse patient.[facility] HospitalIn the event this information is protected by the Federal Confidentiality of Alcohol and Drug Abuse Patient Records regulations: The Federal rules restrict any use of the information to criminally investigate or prosecute any alcohol or drug abuse patient.[facility] HospitalIn the event this information is protected by the Federal Confidentiality of Alcohol and Drug Abuse Patient Records regulations: The Federal rules restrict any use of the information to criminally investigate or prosecute any alcohol or drug abuse patient.[facility] HospitalIn the event this information is protected by the Federal Confidentiality of Alcohol and Drug Abuse Patient Records regulations: The Federal rules restrict any use of the information to criminally investigate or prosecute any alcohol or drug abuse patient.[facility] HospitalIn the event this information is protected by the Federal Confidentiality of Alcohol and Drug Abuse Patient Records regulations: The Federal rules restrict any use of the information to criminally investigate or prosecute any alcohol or drug abuse patient.[facility] HospitalIn the event this information is protected by the Federal Confidentiality of Alcohol and Drug Abuse Patient Records regulations: The Federal rules restrict any use of the information to criminally investigate or prosecute any alcohol or drug abuse patient.[facility] HospitalIn the event this information is protected by the Federal Confidentiality of Alcohol and Drug Abuse Patient Records regulations: The Federal rules restrict any use of the information to criminally investigate or prosecute any alcohol or drug abuse patient.[facility] HospitalIn the event this information is protected by the Federal Confidentiality of Alcohol and Drug Abuse Patient Records regulations: The Federal rules restrict any use of the information to criminally investigate or prosecute any alcohol or drug abuse patient.[facility] HospitalIn the event this information is protected by the Federal Confidentiality of Alcohol and Drug Abuse Patient Records regulations: The Federal rules restrict any use of the information to criminally investigate or prosecute any alcohol or drug abuse patient.[facility] HospitalIn the event this information is protected by the Federal Confidentiality of Alcohol and Drug Abuse Patient Records regulations: The Federal rules restrict any use of the information to criminally investigate or prosecute any alcohol or drug abuse patient.[facility] HospitalIn the event this information is protected by the Federal Confidentiality of Alcohol and Drug Abuse Patient Records regulations: The Federal rules restrict any use of the information to criminally investigate or prosecute any alcohol or drug abuse patient.[facility] HospitalIn the event this information is protected by the Federal Confidentiality of Alcohol and Drug Abuse Patient Records regulations: The Federal rules restrict any use of the information to criminally investigate or prosecute any alcohol or drug abuse patient.[facility] HospitalIn the event this information is protected by the Federal Confidentiality of Alcohol and Drug Abuse Patient Records regulations: The Federal rules restrict any use of the information to criminally investigate or prosecute any alcohol or drug abuse patient.[facility] HospitalIn the event this information is protected by the Federal Confidentiality of Alcohol and Drug Abuse Patient Records regulations: The Federal rules restrict any use of the information to criminally investigate or prosecute any alcohol or drug abuse patient.[facility] HospitalIn the event this information is protected by the Federal Confidentiality of Alcohol and Drug Abuse Patient Records regulations: The Federal rules restrict any use of the information to criminally investigate or prosecute any alcohol or drug abuse patient.[facility] HospitalIn the event this information is protected by the Federal Confidentiality of Alcohol and Drug Abuse Patient Records regulations: The Federal rules restrict any use of the information to criminally investigate or prosecute any alcohol or drug abuse patient.[facility] HospitalIn the event this information is protected by the Federal Confidentiality of Alcohol and Drug Abuse Patient Records regulations: The Federal rules restrict any use of the information to criminally investigate or prosecute any alcohol or drug abuse patient.[facility] HospitalIn the event this information is protected by the Federal Confidentiality of Alcohol and Drug Abuse Patient Records regulations: The Federal rules restrict any use of the information to criminally investigate or prosecute any alcohol or drug abuse patient.[facility] HospitalIn the event this information is protected by the Federal Confidentiality of Alcohol and Drug Abuse Patient Records regulations: The Federal rules restrict any use of the information to criminally investigate or prosecute any alcohol or drug abuse patient.[facility] HospitalIn the event this information is protected by the Federal Confidentiality of Alcohol and Drug Abuse Patient Records regulations: The Federal rules restrict any use of the information to criminally investigate or prosecute any alcohol or drug abuse patient.[facility] HospitalIn the event this information is protected by the Federal Confidentiality of Alcohol and Drug Abuse Patient Records regulations: The Federal rules restrict any use of the information to criminally investigate or prosecute any alcohol or drug abuse patient.[facility] HospitalIn the event this information is protected by the Federal Confidentiality of Alcohol and Drug Abuse Patient Records regulations: The Federal rules restrict any use of the information to criminally investigate or prosecute any alcohol or drug abuse patient.[facility] HospitalIn the event this information is protected by the Federal Confidentiality of Alcohol and Drug Abuse Patient Records regulations: The Federal rules restrict any use of the information to criminally investigate or prosecute any alcohol or drug abuse patient.[facility] HospitalIn the event this information is protected by the Federal Confidentiality of Alcohol and Drug Abuse Patient Records regulations: The Federal rules restrict any use of the information to criminally investigate or prosecute any alcohol or drug abuse patient.[facility] HospitalIn the event this information is protected by the Federal Confidentiality of Alcohol and Drug Abuse Patient Records regulations: The Federal rules restrict any use of the information to criminally investigate or prosecute any alcohol or drug abuse patient.[facility] HospitalIn the event this information is protected by the Federal Confidentiality of Alcohol and Drug Abuse Patient Records regulations: The Federal rules restrict any use of the information to criminally investigate or prosecute any alcohol or drug abuse patient.[facility] HospitalIn the event this information is protected by the Federal Confidentiality of Alcohol and Drug Abuse Patient Records regulations: The Federal rules restrict any use of the information to criminally investigate or prosecute any alcohol or drug abuse patient.[facility] HospitalIn the event this information is protected by the Federal Confidentiality of Alcohol and Drug Abuse Patient Records regulations: The Federal rules restrict any use of the information to criminally investigate or prosecute any alcohol or drug abuse patient.[facility] HospitalIn the event this information is protected by the Federal Confidentiality of Alcohol and Drug Abuse Patient Records regulations: The Federal rules restrict any use of the information to criminally investigate or prosecute any alcohol or drug abuse patient.[facility] HospitalIn the event this information is protected by the Federal Confidentiality of Alcohol and Drug Abuse Patient Records regulations: The Federal rules restrict any use of the information to criminally investigate or prosecute any alcohol or drug abuse patient.[facility] HospitalIn the event this information is protected by the Federal Confidentiality of Alcohol and Drug Abuse Patient Records regulations: The Federal rules restrict any use of the information to criminally investigate or prosecute any alcohol or drug abuse patient.[facility] HospitalIn the event this information is protected by the Federal Confidentiality of Alcohol and Drug Abuse Patient Records regulations: The Federal rules restrict any use of the information to criminally investigate or prosecute any alcohol or drug abuse patient.[facility] HospitalIn the event this information is protected by the Federal Confidentiality of Alcohol and Drug Abuse Patient Records regulations: The Federal rules restrict any use of the information to criminally investigate or prosecute any alcohol or drug abuse patient.[facility] HospitalIn the event this information is protected by the Federal Confidentiality of Alcohol and Drug Abuse Patient Records regulations: The Federal rules restrict any use of the information to criminally investigate or prosecute any alcohol or drug abuse patient.[facility] HospitalIn the event this information is protected by the Federal Confidentiality of Alcohol and Drug Abuse Patient Records regulations: The Federal rules restrict any use of the information to criminally investigate or prosecute any alcohol or drug abuse patient.[facility] HospitalIn the event this information is protected by the Federal Confidentiality of Alcohol and Drug Abuse Patient Records regulations: The Federal rules restrict any use of the information to criminally investigate or prosecute any alcohol or drug abuse patient.[facility] HospitalIn the event this information is protected by the Federal Confidentiality of Alcohol and Drug Abuse Patient Records regulations: The Federal rules restrict any use of the information to criminally investigate or prosecute any alcohol or drug abuse patient.[facility] HospitalIn the event this information is protected by the Federal Confidentiality of Alcohol and Drug Abuse Patient Records regulations: The Federal rules restrict any use of the information to criminally investigate or prosecute any alcohol or drug abuse patient.[facility] HospitalIn the event this information is protected by the Federal Confidentiality of Alcohol and Drug Abuse Patient Records regulations: The Federal rules restrict any use of the information to criminally investigate or prosecute any alcohol or drug abuse patient.[facility] HospitalIn the event this information is protected by the Federal Confidentiality of Alcohol and Drug Abuse Patient Records regulations: The Federal rules restrict any use of the information to criminally investigate or prosecute any alcohol or drug abuse patient.[facility] HospitalIn the event this information is protected by the Federal Confidentiality of Alcohol and Drug Abuse Patient Records regulations: The Federal rules restrict any use of the information to criminally investigate or prosecute any alcohol or drug abuse patient.[facility] HospitalIn the event this information is protected by the Federal Confidentiality of Alcohol and Drug Abuse Patient Records regulations: The Federal rules restrict any use of the information to criminally investigate or prosecute any alcohol or drug abuse patient.[facility] HospitalIn the event this information is protected by the Federal Confidentiality of Alcohol and Drug Abuse Patient Records regulations: The Federal rules restrict any use of the information to criminally investigate or prosecute any alcohol or drug abuse patient.[facility] HospitalIn the event this information is protected by the Federal Confidentiality of Alcohol and Drug Abuse Patient Records regulations: The Federal rules restrict any use of the information to criminally investigate or prosecute any alcohol or drug abuse patient.[facility] HospitalIn the event this information is protected by the Federal Confidentiality of Alcohol and Drug Abuse Patient Records regulations: The Federal rules restrict any use of the information to criminally investigate or prosecute any alcohol or drug abuse patient.[facility] HospitalIn the event this information is protected by the Federal Confidentiality of Alcohol and Drug Abuse Patient Records regulations: The Federal rules restrict any use of the information to criminally investigate or prosecute any alcohol or drug abuse patient.[facility] HospitalIn the event this information is protected by the Federal Confidentiality of Alcohol and Drug Abuse Patient Records regulations: The Federal rules restrict any use of the information to criminally investigate or prosecute any alcohol or drug abuse patient.[facility] HospitalIn the event this information is protected by the Federal Confidentiality of Alcohol and Drug Abuse Patient Records regulations: The Federal rules restrict any use of the information to criminally investigate or prosecute any alcohol or drug abuse patient.[facility] HospitalIn the event this information is protected by the Federal Confidentiality of Alcohol and Drug Abuse Patient Records regulations: The Federal rules restrict any use of the information to criminally investigate or prosecute any alcohol or drug abuse patient.[facility] HospitalIn the event this information is protected by the Federal Confidentiality of Alcohol and Drug Abuse Patient Records regulations: The Federal rules restrict any use of the information to criminally investigate or prosecute any alcohol or drug abuse patient.[facility] HospitalIn the event this information is protected by the Federal Confidentiality of Alcohol and Drug Abuse Patient Records regulations: The Federal rules restrict any use of the information to criminally investigate or prosecute any alcohol or drug abuse patient.[facility] HospitalIn the event this information is protected by the Federal Confidentiality of Alcohol and Drug Abuse Patient Records regulations: The Federal rules restrict any use of the information to criminally investigate or prosecute any alcohol or drug abuse patient.[facility] HospitalIn the event this information is protected by the Federal Confidentiality of Alcohol and Drug Abuse Patient Records regulations: The Federal rules restrict any use of the information to criminally investigate or prosecute any alcohol or drug abuse patient.[facility] HospitalIn the event this information is protected by the Federal Confidentiality of Alcohol and Drug Abuse Patient Records regulations: The Federal rules restrict any use of the information to criminally investigate or prosecute any alcohol or drug abuse patient.[facility] HospitalIn the event this information is protected by the Federal Confidentiality of Alcohol and Drug Abuse Patient Records regulations: The Federal rules restrict any use of the information to criminally investigate or prosecute any alcohol or drug abuse patient.[facility] HospitalIn the event this information is protected by the Federal Confidentiality of Alcohol and Drug Abuse Patient Records regulations: The Federal rules restrict any use of the information to criminally investigate or prosecute any alcohol or drug abuse patient.[facility] HospitalIn the event this information is protected by the Federal Confidentiality of Alcohol and Drug Abuse Patient Records regulations: The Federal rules restrict any use of the information to criminally investigate or prosecute any alcohol or drug abuse patient.[facility] HospitalIn the event this information is protected by the Federal Confidentiality of Alcohol and Drug Abuse Patient Records regulations: The Federal rules restrict any use of the information to criminally investigate or prosecute any alcohol or drug abuse patient.[facility] HospitalIn the event this information is protected by the Federal Confidentiality of Alcohol and Drug Abuse Patient Records regulations: The Federal rules restrict any use of the information to criminally investigate or prosecute any alcohol or drug abuse patient.[facility] HospitalIn the event this information is protected by the Federal Confidentiality of Alcohol and Drug Abuse Patient Records regulations: The Federal rules restrict any use of the information to criminally investigate or prosecute any alcohol or drug abuse patient.[facility] HospitalIn the event this information is protected by the Federal Confidentiality of Alcohol and Drug Abuse Patient Records regulations: The Federal rules restrict any use of the information to criminally investigate or prosecute any alcohol or drug abuse patient.[facility] HospitalIn the event this information is protected by the Federal Confidentiality of Alcohol and Drug Abuse Patient Records regulations: The Federal rules restrict any use of the information to criminally investigate or prosecute any alcohol or drug abuse patient.[facility] HospitalIn the event this information is protected by the Federal Confidentiality of Alcohol and Drug Abuse Patient Records regulations: The Federal rules restrict any use of the information to criminally investigate or prosecute any alcohol or drug abuse patient.[facility] HospitalIn the event this information is protected by the Federal Confidentiality of Alcohol and Drug Abuse Patient Records regulations: The Federal rules restrict any use of the information to criminally investigate or prosecute any alcohol or drug abuse patient.[facility] HospitalIn the event this information is protected by the Federal Confidentiality of Alcohol and Drug Abuse Patient Records regulations: The Federal rules restrict any use of the information to criminally investigate or prosecute any alcohol or drug abuse patient.[facility] HospitalIn the event this information is protected by the Federal Confidentiality of Alcohol and Drug Abuse Patient Records regulations: The Federal rules restrict any use of the information to criminally investigate or prosecute any alcohol or drug abuse patient.[facility] HospitalIn the event this information is protected by the Federal Confidentiality of Alcohol and Drug Abuse Patient Records regulations: The Federal rules restrict any use of the information to criminally investigate or prosecute any alcohol or drug abuse patient.[facility] HospitalIn the event this information is protected by the Federal Confidentiality of Alcohol and Drug Abuse Patient Records regulations: The Federal rules restrict any use of the information to criminally investigate or prosecute any alcohol or drug abuse patient.[facility] HospitalIn the event this information is protected by the Federal Confidentiality of Alcohol and Drug Abuse Patient Records regulations: The Federal rules restrict any use of the information to criminally investigate or prosecute any alcohol or drug abuse patient.[facility] HospitalIn the event this information is protected by the Federal Confidentiality of Alcohol and Drug Abuse Patient Records regulations: The Federal rules restrict any use of the information to criminally investigate or prosecute any alcohol or drug abuse patient.[facility] HospitalIn the event this information is protected by the Federal Confidentiality of Alcohol and Drug Abuse Patient Records regulations: The Federal rules restrict any use of the information to criminally investigate or prosecute any alcohol or drug abuse patient.[facility] HospitalIn the event this information is protected by the Federal Confidentiality of Alcohol and Drug Abuse Patient Records regulations: The Federal rules restrict any use of the information to criminally investigate or prosecute any alcohol or drug abuse patient.[facility] HospitalIn the event this information is protected by the Federal Confidentiality of Alcohol and Drug Abuse Patient Records regulations: The Federal rules restrict any use of the information to criminally investigate or prosecute any alcohol or drug abuse patient.[facility] HospitalIn the event this information is protected by the Federal Confidentiality of Alcohol and Drug Abuse Patient Records regulations: The Federal rules restrict any use of the information to criminally investigate or prosecute any alcohol or drug abuse patient.[facility] HospitalIn the event this information is protected by the Federal Confidentiality of Alcohol and Drug Abuse Patient Records regulations: The Federal rules restrict any use of the information to criminally investigate or prosecute any alcohol or drug abuse patient.[facility] HospitalIn the event this information is protected by the Federal Confidentiality of Alcohol and Drug Abuse Patient Records regulations: The Federal rules restrict any use of the information to criminally investigate or prosecute any alcohol or drug abuse patient.[facility] HospitalIn the event this information is protected by the Federal Confidentiality of Alcohol and Drug Abuse Patient Records regulations: The Federal rules restrict any use of the information to criminally investigate or prosecute any alcohol or drug abuse patient.[facility] HospitalIn the event this information is protected by the Federal Confidentiality of Alcohol and Drug Abuse Patient Records regulations: The Federal rules restrict any use of the information to criminally investigate or prosecute any alcohol or drug abuse patient.[facility] HospitalIn the event this information is protected by the Federal Confidentiality of Alcohol and Drug Abuse Patient Records regulations: The Federal rules restrict any use of the information to criminally investigate or prosecute any alcohol or drug abuse patient.[facility] HospitalIn the event this information is protected by the Federal Confidentiality of Alcohol and Drug Abuse Patient Records regulations: The Federal rules restrict any use of the information to criminally investigate or prosecute any alcohol or drug abuse patient.[facility] HospitalIn the event this information is protected by the Federal Confidentiality of Alcohol and Drug Abuse Patient Records regulations: The Federal rules restrict any use of the information to criminally investigate or prosecute any alcohol or drug abuse patient.[facility] HospitalIn the event this information is protected by the Federal Confidentiality of Alcohol and Drug Abuse Patient Records regulations: The Federal rules restrict any use of the information to criminally investigate or prosecute any alcohol or drug abuse patient.[facility] HospitalIn the event this information is protected by the Federal Confidentiality of Alcohol and Drug Abuse Patient Records regulations: The Federal rules restrict any use of the information to criminally investigate or prosecute any alcohol or drug abuse patient.[facility] HospitalIn the event this information is protected by the Federal Confidentiality of Alcohol and Drug Abuse Patient Records regulations: The Federal rules restrict any use of the information to criminally investigate or prosecute any alcohol or drug abuse patient.[facility] HospitalIn the event this information is protected by the Federal Confidentiality of Alcohol and Drug Abuse Patient Records regulations: The Federal rules restrict any use of the information to criminally investigate or prosecute any alcohol or drug abuse patient.[facility] HospitalIn the event this information is protected by the Federal Confidentiality of Alcohol and Drug Abuse Patient Records regulations: The Federal rules restrict any use of the information to criminally investigate or prosecute any alcohol or drug abuse patient.[facility] HospitalIn the event this information is protected by the Federal Confidentiality of Alcohol and Drug Abuse Patient Records regulations: The Federal rules restrict any use of the information to criminally investigate or prosecute any alcohol or drug abuse patient.[facility] HospitalIn the event this information is protected by the Federal Confidentiality of Alcohol and Drug Abuse Patient Records regulations: The Federal rules restrict any use of the information to criminally investigate or prosecute any alcohol or drug abuse patient.[facility] HospitalIn the event this information is protected by the Federal Confidentiality of Alcohol and Drug Abuse Patient Records regulations: The Federal rules restrict any use of the information to criminally investigate or prosecute any alcohol or drug abuse patient.[facility] HospitalIn the event this information is protected by the Federal Confidentiality of Alcohol and Drug Abuse Patient Records regulations: The Federal rules restrict any use of the information to criminally investigate or prosecute any alcohol or drug abuse patient.[facility] HospitalIn the event this information is protected by the Federal Confidentiality of Alcohol and Drug Abuse Patient Records regulations: The Federal rules restrict any use of the information to criminally investigate or prosecute any alcohol or drug abuse patient.[facility] HospitalIn the event this information is protected by the Federal Confidentiality of Alcohol and Drug Abuse Patient Records regulations: The Federal rules restrict any use of the information to criminally investigate or prosecute any alcohol or drug abuse patient.[facility] HospitalIn the event this information is protected by the Federal Confidentiality of Alcohol and Drug Abuse Patient Records regulations: The Federal rules restrict any use of the information to criminally investigate or prosecute any alcohol or drug abuse patient.[facility] HospitalIn the event this information is protected by the Federal Confidentiality of Alcohol and Drug Abuse Patient Records regulations: The Federal rules restrict any use of the information to criminally investigate or prosecute any alcohol or drug abuse patient.[facility] HospitalIn the event this information is protected by the Federal Confidentiality of Alcohol and Drug Abuse Patient Records regulations: The Federal rules restrict any use of the information to criminally investigate or prosecute any alcohol or drug abuse patient.[facility] HospitalIn the event this information is protected by the Federal Confidentiality of Alcohol and Drug Abuse Patient Records regulations: The Federal rules restrict any use of the information to criminally investigate or prosecute any alcohol or drug abuse patient.[facility] HospitalIn the event this information is protected by the Federal Confidentiality of Alcohol and Drug Abuse Patient Records regulations: The Federal rules restrict any use of the information to criminally investigate or prosecute any alcohol or drug abuse patient.[facility] HospitalIn the event this information is protected by the Federal Confidentiality of Alcohol and Drug Abuse Patient Records regulations: The Federal rules restrict any use of the information to criminally investigate or prosecute any alcohol or drug abuse patient.[facility] HospitalIn the event this information is protected by the Federal Confidentiality of Alcohol and Drug Abuse Patient Records regulations: The Federal rules restrict any use of the information to criminally investigate or prosecute any alcohol or drug abuse patient.[facility] HospitalIn the event this information is protected by the Federal Confidentiality of Alcohol and Drug Abuse Patient Records regulations: The Federal rules restrict any use of the information to criminally investigate or prosecute any alcohol or drug abuse patient.[facility] HospitalIn the event this information is protected by the Federal Confidentiality of Alcohol and Drug Abuse Patient Records regulations: The Federal rules restrict any use of the information to criminally investigate or prosecute any alcohol or drug abuse patient.[facility] HospitalIn the event this information is protected by the Federal Confidentiality of Alcohol and Drug Abuse Patient Records regulations: The Federal rules restrict any use of the information to criminally investigate or prosecute any alcohol or drug abuse patient.[facility] HospitalIn the event this information is protected by the Federal Confidentiality of Alcohol and Drug Abuse Patient Records regulations: The Federal rules restrict any use of the information to criminally investigate or prosecute any alcohol or drug abuse patient.[facility] HospitalIn the event this information is protected by the Federal Confidentiality of Alcohol and Drug Abuse Patient Records regulations: The Federal rules restrict any use of the information to criminally investigate or prosecute any alcohol or drug abuse patient.[facility] HospitalIn the event this information is protected by the Federal Confidentiality of Alcohol and Drug Abuse Patient Records regulations: The Federal rules restrict any use of the information to criminally investigate or prosecute any alcohol or drug abuse patient.[facility] HospitalIn the event this information is protected by the Federal Confidentiality of Alcohol and Drug Abuse Patient Records regulations: The Federal rules restrict any use of the information to criminally investigate or prosecute any alcohol or drug abuse patient.[facility] HospitalIn the event this information is protected by the Federal Confidentiality of Alcohol and Drug Abuse Patient Records regulations: The Federal rules restrict any use of the information to criminally investigate or prosecute any alcohol or drug abuse patient.[facility] HospitalIn the event this information is protected by the Federal Confidentiality of Alcohol and Drug Abuse Patient Records regulations: The Federal rules restrict any use of the information to criminally investigate or prosecute any alcohol or drug abuse patient.[facility] HospitalIn the event this information is protected by the Federal Confidentiality of Alcohol and Drug Abuse Patient Records regulations: The Federal rules restrict any use of the information to criminally investigate or prosecute any alcohol or drug abuse patient.[facility] HospitalIn the event this information is protected by the Federal Confidentiality of Alcohol and Drug Abuse Patient Records regulations: The Federal rules restrict any use of the information to criminally investigate or prosecute any alcohol or drug abuse patient.[facility] HospitalIn the event this information is protected by the Federal Confidentiality of Alcohol and Drug Abuse Patient Records regulations: The Federal rules restrict any use of the information to criminally investigate or prosecute any alcohol or drug abuse patient.[facility] HospitalIn the event this information is protected by the Federal Confidentiality of Alcohol and Drug Abuse Patient Records regulations: The Federal rules restrict any use of the information to criminally investigate or prosecute any alcohol or drug abuse patient.[facility] HospitalIn the event this information is protected by the Federal Confidentiality of Alcohol and Drug Abuse Patient Records regulations: The Federal rules restrict any use of the information to criminally investigate or prosecute any alcohol or drug abuse patient.[facility] HospitalIn the event this information is protected by the Federal Confidentiality of Alcohol and Drug Abuse Patient Records regulations: The Federal rules restrict any use of the information to criminally investigate or prosecute any alcohol or drug abuse patient.[facility] HospitalIn the event this information is protected by the Federal Confidentiality of Alcohol and Drug Abuse Patient Records regulations: The Federal rules restrict any use of the information to criminally investigate or prosecute any alcohol or drug abuse patient.[facility] HospitalIn the event this information is protected by the Federal Confidentiality of Alcohol and Drug Abuse Patient Records regulations: The Federal rules restrict any use of the information to criminally investigate or prosecute any alcohol or drug abuse patient.[facility] HospitalIn the event this information is protected by the Federal Confidentiality of Alcohol and Drug Abuse Patient Records regulations: The Federal rules restrict any use of the information to criminally investigate or prosecute any alcohol or drug abuse patient.[facility] HospitalIn the event this information is protected by the Federal Confidentiality of Alcohol and Drug Abuse Patient Records regulations: The Federal rules restrict any use of the information to criminally investigate or prosecute any alcohol or drug abuse patient.[facility] HospitalIn the event this information is protected by the Federal Confidentiality of Alcohol and Drug Abuse Patient Records regulations: The Federal rules restrict any use of the information to criminally investigate or prosecute any alcohol or drug abuse patient.[facility] HospitalIn the event this information is protected by the Federal Confidentiality of Alcohol and Drug Abuse Patient Records regulations: The Federal rules restrict any use of the information to criminally investigate or prosecute any alcohol or drug abuse patient.[facility] HospitalIn the event this information is protected by the Federal Confidentiality of Alcohol and Drug Abuse Patient Records regulations: The Federal rules restrict any use of the information to criminally investigate or prosecute any alcohol or drug abuse patient.[facility] HospitalIn the event this information is protected by the Federal Confidentiality of Alcohol and Drug Abuse Patient Records regulations: The Federal rules restrict any use of the information to criminally investigate or prosecute any alcohol or drug abuse patient.[facility] HospitalIn the event this information is protected by the Federal Confidentiality of Alcohol and Drug Abuse Patient Records regulations: The Federal rules restrict any use of the information to criminally investigate or prosecute any alcohol or drug abuse patient.[facility] HospitalIn the event this information is protected by the Federal Confidentiality of Alcohol and Drug Abuse Patient Records regulations: The Federal rules restrict any use of the information to criminally investigate or prosecute any alcohol or drug abuse patient.[facility] HospitalIn the event this information is protected by the Federal Confidentiality of Alcohol and Drug Abuse Patient Records regulations: The Federal rules restrict any use of the information to criminally investigate or prosecute any alcohol or drug abuse patient.[facility] HospitalIn the event this information is protected by the Federal Confidentiality of Alcohol and Drug Abuse Patient Records regulations: The Federal rules restrict any use of the information to criminally investigate or prosecute any alcohol or drug abuse patient.[facility] HospitalIn the event this information is protected by the Federal Confidentiality of Alcohol and Drug Abuse Patient Records regulations: The Federal rules restrict any use of the information to criminally investigate or prosecute any alcohol or drug abuse patient.[facility] HospitalIn the event this information is protected by the Federal Confidentiality of Alcohol and Drug Abuse Patient Records regulations: The Federal rules restrict any use of the information to criminally investigate or prosecute any alcohol or drug abuse patient.[facility] HospitalIn the event this information is protected by the Federal Confidentiality of Alcohol and Drug Abuse Patient Records regulations: The Federal rules restrict any use of the information to criminally investigate or prosecute any alcohol or drug abuse patient.[facility] HospitalIn the event this information is protected by the Federal Confidentiality of Alcohol and Drug Abuse Patient Records regulations: The Federal rules restrict any use of the information to criminally investigate or prosecute any alcohol or drug abuse patient.[facility] HospitalIn the event this information is protected by the Federal Confidentiality of Alcohol and Drug Abuse Patient Records regulations: The Federal rules restrict any use of the information to criminally investigate or prosecute any alcohol or drug abuse patient.[facility] HospitalIn the event this information is protected by the Federal Confidentiality of Alcohol and Drug Abuse Patient Records regulations: The Federal rules restrict any use of the information to criminally investigate or prosecute any alcohol or drug abuse patient.[facility] HospitalIn the event this information is protected by the Federal Confidentiality of Alcohol and Drug Abuse Patient Records regulations: The Federal rules restrict any use of the information to criminally investigate or prosecute any alcohol or drug abuse patient.[facility] HospitalIn the event this information is protected by the Federal Confidentiality of Alcohol and Drug Abuse Patient Records regulations: The Federal rules restrict any use of the information to criminally investigate or prosecute any alcohol or drug abuse patient.[facility] HospitalIn the event this information is protected by the Federal Confidentiality of Alcohol and Drug Abuse Patient Records regulations: The Federal rules restrict any use of the information to criminally investigate or prosecute any alcohol or drug abuse patient.[facility] HospitalIn the event this information is protected by the Federal Confidentiality of Alcohol and Drug Abuse Patient Records regulations: The Federal rules restrict any use of the information to criminally investigate or prosecute any alcohol or drug abuse patient.[facility] HospitalIn the event this information is protected by the Federal Confidentiality of Alcohol and Drug Abuse Patient Records regulations: The Federal rules restrict any use of the information to criminally investigate or prosecute any alcohol or drug abuse patient.[facility] HospitalIn the event this information is protected by the Federal Confidentiality of Alcohol and Drug Abuse Patient Records regulations: The Federal rules restrict any use of the information to criminally investigate or prosecute any alcohol or drug abuse patient.[facility] HospitalIn the event this information is protected by the Federal Confidentiality of Alcohol and Drug Abuse Patient Records regulations: The Federal rules restrict any use of the information to criminally investigate or prosecute any alcohol or drug abuse patient.[facility] HospitalIn the event this information is protected by the Federal Confidentiality of Alcohol and Drug Abuse Patient Records regulations: The Federal rules restrict any use of the information to criminally investigate or prosecute any alcohol or drug abuse patient.[facility] HospitalIn the event this information is protected by the Federal Confidentiality of Alcohol and Drug Abuse Patient Records regulations: The Federal rules restrict any use of the information to criminally investigate or prosecute any alcohol or drug abuse patient.[facility] HospitalIn the event this information is protected by the Federal Confidentiality of Alcohol and Drug Abuse Patient Records regulations: The Federal rules restrict any use of the information to criminally investigate or prosecute any alcohol or drug abuse patient.[facility] HospitalIn the event this information is protected by the Federal Confidentiality of Alcohol and Drug Abuse Patient Records regulations: The Federal rules restrict any use of the information to criminally investigate or prosecute any alcohol or drug abuse patient.[facility] HospitalIn the event this information is protected by the Federal Confidentiality of Alcohol and Drug Abuse Patient Records regulations: The Federal rules restrict any use of the information to criminally investigate or prosecute any alcohol or drug abuse patient.[facility] HospitalIn the event this information is protected by the Federal Confidentiality of Alcohol and Drug Abuse Patient Records regulations: The Federal rules restrict any use of the information to criminally investigate or prosecute any alcohol or drug abuse patient.[facility] HospitalIn the event this information is protected by the Federal Confidentiality of Alcohol and Drug Abuse Patient Records regulations: The Federal rules restrict any use of the information to criminally investigate or prosecute any alcohol or drug abuse patient.[facility] HospitalIn the event this information is protected by the Federal Confidentiality of Alcohol and Drug Abuse Patient Records regulations: The Federal rules restrict any use of the information to criminally investigate or prosecute any alcohol or drug abuse patient.[facility] HospitalIn the event this information is protected by the Federal Confidentiality of Alcohol and Drug Abuse Patient Records regulations: The Federal rules restrict any use of the information to criminally investigate or prosecute any alcohol or drug abuse patient.[facility] HospitalIn the event this information is protected by the Federal Confidentiality of Alcohol and Drug Abuse Patient Records regulations: The Federal rules restrict any use of the information to criminally investigate or prosecute any alcohol or drug abuse patient.[facility] HospitalIn the event this information is protected by the Federal Confidentiality of Alcohol and Drug Abuse Patient Records regulations: The Federal rules restrict any use of the information to criminally investigate or prosecute any alcohol or drug abuse patient.[facility] HospitalIn the event this information is protected by the Federal Confidentiality of Alcohol and Drug Abuse Patient Records regulations: The Federal rules restrict any use of the information to criminally investigate or prosecute any alcohol or drug abuse patient.[facility] HospitalIn the event this information is protected by the Federal Confidentiality of Alcohol and Drug Abuse Patient Records regulations: The Federal rules restrict any use of the information to criminally investigate or prosecute any alcohol or drug abuse patient.[facility] HospitalIn the event this information is protected by the Federal Confidentiality of Alcohol and Drug Abuse Patient Records regulations: The Federal rules restrict any use of the information to criminally investigate or prosecute any alcohol or drug abuse patient.[facility] HospitalIn the event this information is protected by the Federal Confidentiality of Alcohol and Drug Abuse Patient Records regulations: The Federal rules restrict any use of the information to criminally investigate or prosecute any alcohol or drug abuse patient.[facility] HospitalIn the event this information is protected by the Federal Confidentiality of Alcohol and Drug Abuse Patient Records regulations: The Federal rules restrict any use of the information to criminally investigate or prosecute any alcohol or drug abuse patient.[facility] HospitalIn the event this information is protected by the Federal Confidentiality of Alcohol and Drug Abuse Patient Records regulations: The Federal rules restrict any use of the information to criminally investigate or prosecute any alcohol or drug abuse patient.[facility] HospitalIn the event this information is protected by the Federal Confidentiality of Alcohol and Drug Abuse Patient Records regulations: The Federal rules restrict any use of the information to criminally investigate or prosecute any alcohol or drug abuse patient.[facility] HospitalIn the event this information is protected by the Federal Confidentiality of Alcohol and Drug Abuse Patient Records regulations: The Federal rules restrict any use of the information to criminally investigate or prosecute any alcohol or drug abuse patient.[facility] HospitalIn the event this information is protected by the Federal Confidentiality of Alcohol and Drug Abuse Patient Records regulations: The Federal rules restrict any use of the information to criminally investigate or prosecute any alcohol or drug abuse patient.[facility] HospitalIn the event this information is protected by the Federal Confidentiality of Alcohol and Drug Abuse Patient Records regulations: The Federal rules restrict any use of the information to criminally investigate or prosecute any alcohol or drug abuse patient.[facility] HospitalIn the event this information is protected by the Federal Confidentiality of Alcohol and Drug Abuse Patient Records regulations: The Federal rules restrict any use of the information to criminally investigate or prosecute any alcohol or drug abuse patient.[facility] HospitalIn the event this information is protected by the Federal Confidentiality of Alcohol and Drug Abuse Patient Records regulations: The Federal rules restrict any use of the information to criminally investigate or prosecute any alcohol or drug abuse patient.[facility] HospitalIn the event this information is protected by the Federal Confidentiality of Alcohol and Drug Abuse Patient Records regulations: The Federal rules restrict any use of the information to criminally investigate or prosecute any alcohol or drug abuse patient.[facility] HospitalIn the event this information is protected by the Federal Confidentiality of Alcohol and Drug Abuse Patient Records regulations: The Federal rules restrict any use of the information to criminally investigate or prosecute any alcohol or drug abuse patient.[facility] HospitalIn the event this information is protected by the Federal Confidentiality of Alcohol and Drug Abuse Patient Records regulations: The Federal rules restrict any use of the information to criminally investigate or prosecute any alcohol or drug abuse patient.[facility] HospitalIn the event this information is protected by the Federal Confidentiality of Alcohol and Drug Abuse Patient Records regulations: The Federal rules restrict any use of the information to criminally investigate or prosecute any alcohol or drug abuse patient.[facility] HospitalIn the event this information is protected by the Federal Confidentiality of Alcohol and Drug Abuse Patient Records regulations: The Federal rules restrict any use of the information to criminally investigate or prosecute any alcohol or drug abuse patient.[facility] HospitalIn the event this information is protected by the Federal Confidentiality of Alcohol and Drug Abuse Patient Records regulations: The Federal rules restrict any use of the information to criminally investigate or prosecute any alcohol or drug abuse patient.[facility] HospitalIn the event this information is protected by the Federal Confidentiality of Alcohol and Drug Abuse Patient Records regulations: The Federal rules restrict any use of the information to criminally investigate or prosecute any alcohol or drug abuse patient.[facility] HospitalIn the event this information is protected by the Federal Confidentiality of Alcohol and Drug Abuse Patient Records regulations: The Federal rules restrict any use of the information to criminally investigate or prosecute any alcohol or drug abuse patient.[facility] HospitalIn the event this information is protected by the Federal Confidentiality of Alcohol and Drug Abuse Patient Records regulations: The Federal rules restrict any use of the information to criminally investigate or prosecute any alcohol or drug abuse patient.[facility] HospitalIn the event this information is protected by the Federal Confidentiality of Alcohol and Drug Abuse Patient Records regulations: The Federal rules restrict any use of the information to criminally investigate or prosecute any alcohol or drug abuse patient.[facility] HospitalIn the event this information is protected by the Federal Confidentiality of Alcohol and Drug Abuse Patient Records regulations: The Federal rules restrict any use of the information to criminally investigate or prosecute any alcohol or drug abuse patient.[facility] HospitalIn the event this information is protected by the Federal Confidentiality of Alcohol and Drug Abuse Patient Records regulations: The Federal rules restrict any use of the information to criminally investigate or prosecute any alcohol or drug abuse patient.[facility] HospitalIn the event this information is protected by the Federal Confidentiality of Alcohol and Drug Abuse Patient Records regulations: The Federal rules restrict any use of the information to criminally investigate or prosecute any alcohol or drug abuse patient.[facility] HospitalIn the event this information is protected by the Federal Confidentiality of Alcohol and Drug Abuse Patient Records regulations: The Federal rules restrict any use of the information to criminally investigate or prosecute any alcohol or drug abuse patient.[facility] HospitalIn the event this information is protected by the Federal Confidentiality of Alcohol and Drug Abuse Patient Records regulations: The Federal rules restrict any use of the information to criminally investigate or prosecute any alcohol or drug abuse patient.[facility] HospitalIn the event this information is protected by the Federal Confidentiality of Alcohol and Drug Abuse Patient Records regulations: The Federal rules restrict any use of the information to criminally investigate or prosecute any alcohol or drug abuse patient.[facility] HospitalIn the event this information is protected by the Federal Confidentiality of Alcohol and Drug Abuse Patient Records regulations: The Federal rules restrict any use of the information to criminally investigate or prosecute any alcohol or drug abuse patient.[facility] HospitalIn the event this information is protected by the Federal Confidentiality of Alcohol and Drug Abuse Patient Records regulations: The Federal rules restrict any use of the information to criminally investigate or prosecute any alcohol or drug abuse patient.[facility] HospitalIn the event this information is protected by the Federal Confidentiality of Alcohol and Drug Abuse Patient Records regulations: The Federal rules restrict any use of the information to criminally investigate or prosecute any alcohol or drug abuse patient.[facility] HospitalIn the event this information is protected by the Federal Confidentiality of Alcohol and Drug Abuse Patient Records regulations: The Federal rules restrict any use of the information to criminally investigate or prosecute any alcohol or drug abuse patient.[facility] HospitalIn the event this information is protected by the Federal Confidentiality of Alcohol and Drug Abuse Patient Records regulations: The Federal rules restrict any use of the information to criminally investigate or prosecute any alcohol or drug abuse patient.[facility] HospitalIn the event this information is protected by the Federal Confidentiality of Alcohol and Drug Abuse Patient Records regulations: The Federal rules restrict any use of the information to criminally investigate or prosecute any alcohol or drug abuse patient.[facility] HospitalIn the event this information is protected by the Federal Confidentiality of Alcohol and Drug Abuse Patient Records regulations: The Federal rules restrict any use of the information to criminally investigate or prosecute any alcohol or drug abuse patient.[facility] HospitalIn the event this information is protected by the Federal Confidentiality of Alcohol and Drug Abuse Patient Records regulations: The Federal rules restrict any use of the information to criminally investigate or prosecute any alcohol or drug abuse patient.[facility] HospitalIn the event this information is protected by the Federal Confidentiality of Alcohol and Drug Abuse Patient Records regulations: The Federal rules restrict any use of the information to criminally investigate or prosecute any alcohol or drug abuse patient.[facility] Reason for Visit (unrecogniz ed section [...] 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25 MG Steven Akers, DO [address] [place] [address] Jayy [facility] [address] [place] [address] Reason Comments Research Consent [id number] Reason Comments [...] CT Specialty Diagnoses / Procedures Referred By [email or web address] t Referred To Contact CT IMAGING Diagnoses MDS (myelodysplastic syndrome), low grade (HCC) Waldenstrom macroglobulinemia (HCC) Splenomegaly Procedures CT CHEST W IVCON DIAGNOSTIC COMPUTED TOMOGRAPHY THORAX W/CONTRAST Steven Akers, DO [address] [place] [address] [place] [address] Referral ID Status Reason Start Date Expiration Date V isits Requested Visits Authorized [id number] Closed Auto-Generate d Referral 11/29/2022 11/09/2023 1 1 Reason Comments 2023 Reblozyl Assistance Renewal Referral ID Status Reason Start Date Expiration Date V isits Requested Visits Authorized [id number] Authorized 01/27/2023 11/09/2024 99 99 Reason Onset Date Comments Refill Request 01/10/2024 Refill Request 01/12/2024 Reason Comments Follow Up 6 month Reason Onset Date Comments Refill Request 01/24/2024 Referral ID Status Reason Start Date Expiration Date Visits Re quested Visits Authorized [id number] Closed 01/27/2023 11/09/2024 99 99 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 AVS 01/29/24, CHEMO START WK OF 02/08 Reason Comments Chemotherapy Treatment Specialty Diagnoses / Procedures Referred By Contac t Referred To Contact Diagnoses MDS (myelodysplastic syndrome), low grade (HCC) Macrocytic anemia Procedures DECITABINE INJECTION Steven Akers, DO [address] [place] [address] [facility] [address] [place] [address] Referral ID Status Reason Start Date Expiration Date V isits Requested Visits Authorized [id number] Authorized 01/29/2024 11/09/2024 99 99 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 Reason Onset Date Comments Refill Request 03/04/2024 Specialty Diagnoses / Procedures Referred By Contac t Referred To Contact Diagnoses MDS (myelodysplastic syndrome), low grade (HCC) Macrocytic anemia Procedures DECITABINE INJECTION Steven Akers, DO [address] [place] [address] [facility] [address] [place] [address] Reason Onset Date Comments Refill Request 04/02/2024 [...] REAL TIME W/IMAGE LIMITED Steven Akers DO [address] [place] [address] [place] [address] Referral ID Status Reason Start Date Expiration Date V isits Requested Visits Authorized [id number] Closed Auto-Generate d Referral 06/09/2024 07/09/2025 1 [...] Date Expiration Date Visits Requested Visits Authorized [id number] Authorized Patient Cleared - Admin/Chairm an/Director advise [...] Steven Akers DO [address] [place] [address] Phone: tel: fax: [place] [phone] Referral ID Status Reason Start Date Expiration Date V isits Requested Visits Authorized [id number] Closed Auto-Generate d Referral 04/21/2025 05/21/2026 1 1 Care Teams (unrecognized sec tion and content) Retirement Officer Relationship Specialty Start Date End Date Sunday Carter PA-C [address] [facility] [place] [address] PCP - General Family Practice 10/28/17 Retirement Officer Relationship Specialty Start Date End Date Sunday Carter PA-C [address] [facility] [place] [address] PCP - General Family Practice 10/28/17 Retirement Officer Relationship Specialty Start Date End Date Sunday Carter PA-C [address] [place] [address] PCP - General Family Practice 10/28/17 Retirement Officer Relationship Specialty Start Date End Date Sunday Carter PA-C [address] [facility] [address] PCP - General Family Practice 10/28/17 Retirement Officer Relationship Specialty Start Date End Date Sunday Carter PA-C [address] [facility] [address] PCP - General Family Practice 10/28/17 Retirement Officer Relationship Specialty Start Date End Date Sunday Carter PA-C [address] [facility] [address] PCP - General Family Medicine 10/28/17 Retirement Officer Relationship Specialty Start Date End Date Sunday Carter PA-C [address] [facility] [address] PCP - General Family Medicine 10/28/17 Retirement Officer Relationship Specialty Start Date End Date Sunday Carter PA-C [address] [facility] [address] PCP - General Family Medicine 10/28/17 Retirement Officer Relationship Specialty Start Date End Date Sunday Carter PA-C [address] [place] [address] PCP - General Family Medicine 10/28/17 Retirement Officer Relationship Specialty Start Date End Date Sunday Carter PA-C [address] [place] [address] PCP - General Family Medicine 10/28/17 Retirement Officer Relationship Specialty Start Date End Date Sunday Carter PA-C [address] [place] [address] PCP - General Family Medicine 10/28/17 Retirement Officer Relationship Specialty Start Date End Date Sunday Carter PA-C [address] [place] [address] PCP - General Family Medicine 10/28/17 Retirement Officer Relationship Specialty Start Date End Date Snuday Carter PA-C [address] [place] [address] PCP - General Family Medicine 10/28/17 Team Status: Active Member Role Status Dates MENDEL Kerns Family Provider Active MENDEL Kerns Primary Care Provider Active Team Status: Inactive Member Role Status Dates MENDEL Kerns Primary Care Provider, Referri ng Provider Active Delisa Francis TEXTILE CONSERVATOR, TEXTILE CONSERVATOR-C Attending Provider Active Team Status: Active Member Role Status Dates MENDEL Kerns Primary Care Provider Active Dr. Subhash Alfaro MD Attending Provider, Referring Pro vider Active Dr. Sarah Traore MD Other Provider Active Team Status: Inactive Member Role Status Dates MENDEL Kerns Primary Care Provider Active Dr. Steven Akers DO Attending Provider, Referring Prov ider Active Retirement Officer Relationship Specialty Start Date End Date Sunday Carter PA-C [address] [place] [address] PCP - General Family Medicine 10/28/17 Retirement Officer Relationship Specialty Start Date End Date Sunday Carter PA-C [address] [facility] [place] [address] PCP - General Family Medicine 10/28/17 Retirement Officer Relationship Specialty Start Date End Date Sunday Carter PA-C [address] [facility] [place] [address] PCP - General Family Medicine 10/28/17 Retirement Officer Relationship Specialty Start Date End Date Sunday Carter PA-C [address] [facility] [place] [address] PCP - General Family Medicine 10/28/17 Retirement Officer Relationship Specialty Start Date End Date Sunday Carter PA-C [address] [facility] [place] [address] PCP - General Family Medicine 10/28/17 Retirement Officer Relationship Specialty Start Date End Date Sunday Carter PA-C [address] [facility] [place] [address] PCP - General Family Medicine 10/28/17 Retirement Officer Relationship Specialty Start Date End Date Sunday Carter PA-C [address] [facility] [place] [address] PCP - General Family Medicine 10/28/17 Retirement Officer Relationship Specialty Start Date End Date Sunday Carter PA-C [address] [facility] [place] [address] PCP - General Family Medicine 10/28/17 Retirement Officer Relationship Specialty Start Date End Date Sunday Carter PA-C [address] [facility] [place] [address] PCP - General Family Medicine 10/28/17 Retirement Officer Relationship Specialty Start Date End Date Sunday Carter PA-C [address] [facility] [place] [address] PCP - General Family Medicine 10/28/17 Team [...] MD Attending Provider, Referring Pr ovider Active Retirement Officer Relationship Specialty Start Date End Date Sunday Carter PA-C [address] [place] [address] PCP - General Family Medicine 10/28/17 Team Status: Inactive Member Role Status Dates Sunday OGLESBY PA Primary Care Provider Active MENDEL Ruiz Attending Provider, Referr ing Provider Active Team Status: Inactive Member Role Status Dates Sunday OGLESBY PA Primary Care Provider Active Dr. Chaim Garcia MD Attending Provider, Emergency Pro vider Active Retirement Officer Relationship Specialty Start Date End Date Sunday Carter PA-C [address] [place], [place] [id number] PCP - General Family Medicine 10/28/17 Retirement Officer Relationship Specialty Start Date End Date Sunday Carter PA-C [address] [place], [place] [id number] PCP - General Family Medicine 10/28/17 Retirement Officer Relationship Specialty Start Date End Date Sunday Carter PA-C [address] [place] [address] PCP - General Family Medicine 10/28/17 Retirement Officer Relationship Specialty Start Date End Date Sunday Carter PA-C [address] [place] [address] PCP - General Family Medicine 10/28/17 Retirement Officer Relationship Specialty Start Date End Date Sunday Caretr PA-C [address] [place] [address] PCP - General Family Medicine 10/28/17 Retirement Officer Relationship Specialty Start Date End Date Sunday Carter PA-C [address] [place] [address] PCP - General Family Medicine 10/28/17 Team Status: Inactive Member Role Status Dates MENDEL Kerns Primary Care Provider, Referri Provider Active Reza Can TEXTILE CONSERVATOR, TEXTILE CONSERVATOR-C Attending Provider Active Retirement Officer Relationship Specialty Start Date End Date Sunday Carter PA-C [address] [place] [address] PCP - General Family Medicine 10/28/17 Retirement Officer Relationship Specialty Start Date End Date Sunday Carter PA-C [address] [place] [address] PCP - General Family Medicine 10/28/17 Team Status: Inactive Member Role Status Dates MENDEL Kerns Primary Care Provider Active Dr. Steven Akers DO Attending Provider Active Retirement Officer Relationship Specialty Start Date End Date Sunday Carter PA-C [address] [place] [address] PCP - General Family Medicine 10/28/17 Team [...] Dr. Jose Grimaldo MD Emergency Provider Active Retirement Officer Relationship Specialty Start Date End Date Sunday Carter PA-C [address] [place] [address] PCP - General Family Medicine 10/28/17 Retirement Officer Relationship Specialty Start Date End Date Sunday Carter PA-C [address] [place] [address] PCP - General Family Medicine 10/28/17 Retirement Officer Relationship Specialty Start Date End Date Sunday Carter PA-C [address] [place] [address] PCP - General Family Medicine 10/28/17 Retirement Officer Relationship Specialty Start Date End Date Sunday Carter PA-C [address] [place] [address] PCP - General Family Medicine 10/28/17 Retirement Officer Relationship Specialty Start Date End Date Sunday Carter PA-C [address] [place], [place] [address] PCP - General Family Medicine 10/28/17 Team Status: Inactive Member Role Status Dates MENDEL Kerns Primary Care Provider Active Dr. Jose Grimaldo MD Attending Provider, Emergency Provi denise Active Retirement Officer Relationship Specialty Start Date End Date Sunday Carter PA-C [address] [place] [address] PCP - General Family Medicine 10/28/17 Retirement Officer Relationship Specialty Start Date End Date Sunday Carter PA-C [address] [place] [address] PCP - General Family Medicine 10/28/17 Retirement Officer Relationship Specialty Start Date End Date Sunday Carter PA-C [address] [place] [address] PCP - General Family Medicine 10/28/17 Retirement Officer Relationship Specialty Start Date End Date Sunday Carter PA-C [address] [place] [address] PCP - General Family Medicine 10/28/17 Retirement Officer Relationship Specialty Start Date End Date Sunday Carter PA-C [address] [place] [address] PCP - General Family Medicine 10/28/17 Retirement Officer Relationship Specialty Start Date End Date Sunday Carter PA-C [address] [place] [address] PCP - General Family Medicine 10/28/17 Retirement Officer Relationship Specialty Start Date End Date Sunday Carter PA-C [address] [place] [address] PCP - General Family Medicine 10/28/17 Retirement Officer Relationship Specialty Start Date End Date Sunday Carter PA-C [address] [place] [address] PCP - General Family Medicine 10/28/17 Retirement Officer Relationship Specialty Start Date End Date Sunday Carter PA-C [address] [facility] [address] PCP - General Family Medicine 10/28/17 Retirement Officer Relationship Specialty Start Date End Date Sunday Carter PA-C [address] [facility] [address] PCP - General Family Medicine 10/28/17 Retirement Officer Relationship Specialty Start Date End Date Sunday Carter PA-C [address] [facility] [address] PCP - General Family Medicine 10/28/17 Retirement Officer Relationship Specialty Start Date End Date Sunday Carter PA-C [address] [facility] [address] PCP - General Family Medicine 10/28/17 Retirement Officer Relationship Specialty Start Date End Date Sunday Carter PA-C [address] [facility] [address] PCP - General Family Medicine 10/28/17 Retirement Officer Relationship Specialty Start Date End Date Sunday Carter PA-C [address] [facility] [address] PCP - General Family Medicine 10/28/17 Retirement Officer Relationship Specialty Start Date End Date Sunday Carter PA-C [address] [facility] [address] PCP - General Family Medicine 10/28/17 Retirement Officer Relationship Specialty Start Date End Date Sunday Carter PA-C [address] [facility] [address] PCP - General Family Medicine 10/28/17 Retirement Officer Relationship Specialty Start Date End Date Sunday Carter PA-C [address] [facility] [address] PCP - General Family Medicine 10/28/17 Retirement Officer Relationship Specialty Start Date End Date Sunday Carter PA-C [address] [facility] [address] PCP - General Family Medicine 10/28/17 Retirement Officer Relationship Specialty Start Date End Date Sunday Carter PA-C [address] [facility] [address] PCP - General Family Medicine 10/28/17 Retirement Officer Relationship Specialty Start Date End Date Sunday Carter PA-C [address] [facility] [address] PCP - General Family Medicine 10/28/17 Retirement Officer Relationship Specialty Start Date End Date Sunday Carter PA-C [address] [facility] [address] PCP - General Family Medicine 10/28/17 Retirement Officer Relationship Specialty Start Date End Date Sunday Carter PA-C [address] [facility] [address] PCP - General Family Medicine 10/28/17 Retirement Officer Relationship Specialty Start Date End Date Sunday Carter PA-C [address] [facility] [address] PCP - General Family Medicine 10/28/17 Retirement Officer Relationship Specialty Start Date End Date Sunday Carter PA-C [address] [place] [address] PCP - General Family Medicine 10/28/17 Retirement Officer Relationship Specialty Start Date End Date Sunday Carter PA-C [address] [place] [address] PCP - General Family Medicine 10/28/17 Retirement Officer Relationship Specialty Start Date End Date Sunday Carter PA-C [address] [place] [address] PCP - General Family Medicine 10/28/17 Retirement Officer Relationship Specialty Start Date End Date Sunday Carter PA-C [address] [place] [address] PCP - General Family Medicine 10/28/17 Retirement Officer Relationship Specialty Start Date End Date Sunday Carter PA-C [address] [place] [address] PCP - General Family Medicine 10/28/17 Retirement Officer Relationship Specialty Start Date End Date Sunday Carter PA-C [address] [place] [address] PCP - General Family Medicine 10/28/17 Retirement Officer Relationship Specialty Start Date End Date Sunday Carter PA-C [address] [place] [address] PCP - General Family Medicine 10/28/17 Retirement Officer Relationship Specialty Start Date End Date Sunday Carter PA-C [address] [facility] [address] PCP - General Family Medicine 10/28/17 Retirement Officer Relationship Specialty Start Date End Date Sunday Carter PA-C [address] [facility] [address] PCP - General Family Medicine 10/28/17 Retirement Officer Relationship Specialty Start Date End Date Sunday Carter PA-C [address] [facility] [address] PCP - General Family Medicine 10/28/17 Retirement Officer Relationship Specialty Start Date End Date Sunday Carter PA-C [address] [facility] [address] PCP - General Family Medicine 10/28/17 Retirement Officer Relationship Specialty Start Date End Date Sunday Carter PA-C [address] [facility] [address] PCP - General Family Medicine 10/28/17 Retirement Officer Relationship Specialty Start Date End Date Sunday Carter PA-C [address] [facility] [address] PCP - General Family Medicine 10/28/17 Retirement Officer Relationship Specialty Start Date End Date Sunday Carter PA-C [address] [facility] [address] PCP - General Family Medicine 10/28/17 Retirement Officer Relationship Specialty Start Date End Date Sunday Carter PA-C [address] [facility] [address] PCP - General Family Medicine 10/28/17 Retirement Officer Relationship Specialty Start Date End Date Hetal Carter PA-C PCP - General Family Medicine 10/28/17 Retirement Officer Relationship Specialty Start Date End Date Hetal Carter PA-C PCP - General Family Medicine 10/28/17 Retirement Officer Relationship Specialty Start Date End Date Hetal Carter PA-C PCP - General Family Medicine 10/28/17 Retirement Officer Relationship Specialty Start Date End Date Hetal Carter PA-C PCP - General Family Medicine 10/28/17 Retirement Officer Relationship Specialty Start Date End Date Hetal Carter PA-C PCP - General Family Medicine 10/28/17 Retirement Officer Relationship Specialty Start Date End Date Hetal Carter PA-C PCP - General Family Medicine 10/28/17 Retirement Officer Relationship Specialty Start Date End Date Hetal Carter PA-C PCP - General Family Medicine 10/28/17 Steven Akers DO [address] [place] [address] Hematology/Oncology 10/08/24 Salena Ricardo RN Specialty Field Artillery Operations Specialist Oncology 10/08/24 Retirement Officer Relationship Specialty Start Date End Date Hetal Carter PA-C PCP - General Family Medicine 10/28/17 Steven Akers DO [address] [facility] [place] [address] Hematology/Oncology 10/08/24 Salena Ricardo RN Specialty Field Artillery Operations Specialist Oncology 10/08/24 Retirement Officer Relationship Specialty Start Date End Date Hetal Carter PA-C PCP - General Family Medicine 10/28/17 Steven Akers DO [address] [place] [address] Hematology/Oncology 10/08/24 Salena Ricardo RN Specialty Field Artillery Operations Specialist Oncology 10/08/24 Retirement Officer Relationship Specialty Start Date End Date Hetal Carter PA-C PCP - General Family Medicine 10/28/17 Steven Akers DO [address] [facility] [place] [address] Hematology/Oncology 10/08/24 Salena Ricardo RN Specialty Field Artillery Operations Specialist Oncology 10/08/24 Retirement Officer Relationship Specialty Start Date End Date Hetal Carter PA-C PCP - General Family Medicine 10/28/17 Steven Akers DO [address] [facility] [place] [address] Hematology/Oncology 10/08/24 Salena Ricardo RN Specialty Field Artillery Operations Specialist Oncology 10/08/24 Anita Laboy, DELPHI PROGRAMMER.FACTORY REPRESENTATIVE [address] [place] [address] Nurse Practitioner [facility] 10/15/24 Gladys Da Silva, DELPHI PROGRAMMER.FACTORY REPRESENTATIVE [address] [facility] [place] [address] Nurse Practitioner [facility] Family [facility] 10/15/24 Retirement Officer Relationship Specialty Start Date End Date Hetal Carter PA-C PCP - General Family Medicine 10/28/17 Steven Akers DO [address] [place] [address] Hematology/Oncology 10/08/24 Salena Ricardo RN Specialty Field Artillery Operations Specialist Oncology 10/08/24 Anita Laboy, DELPHI PROGRAMMER.FACTORY REPRESENTATIVE [address] [place] [address] Nurse Practitioner [facility] 10/15/24 Gladys Da Silva APRN.FACTORY REPRESENTATIVE [address] [facility] [place] [address] Nurse Practitioner [place] Family [facility] 10/15/24 Retirement Officer Relationship Specialty Start Date End Date Hetal Carter PA-C PCP - General Family Medicine 10/28/17 Steven Akers DO [address] [facility] [place] [address] Hematology/Oncology 10/08/24 Salena Ricardo RN Specialty Field Artillery Operations Specialist Oncology 10/08/24 Anita Laboy APRN.FACTORY REPRESENTATIVE [address] [facility] [place] [address] [facility] 10/15/24 Gladys Da Silva DELPHI PROGRAMMER.FACTORY REPRESENTATIVE [address] [facility] [place] [address] [facility] 10/15/24 Retirement Officer Relationship Specialty Start Date End Date Hetal Carter PA-C PCP - General Family Medicine 10/28/17 Steven Akers DO [address] [place] [address] Hematology/Oncology 10/08/24 Salena Ricardo RN Specialty Field Artillery Operations Specialist Oncology 10/08/24 Anita Laboy APRN.FACTORY REPRESENTATIVE [address] [place] [address] Nurse Practitioner [facility] 10/15/24 Gladys Da Silva APRN.FACTORY REPRESENTATIVE [address] [facility] [address] Nurse Practitioner [facility] 10/15/24 Retirement Officer Relationship Specialty Start Date End Date Hetal Carter PA-C PCP - General Family Medicine 10/28/17 Steven Akers DO [address] [facility] [place] [address] Hematology/Oncology 10/08/24 Salena Ricardo RN Specialty Field Artillery Operations Specialist Oncology 10/08/24 Anita Laboy, DELPHI PROGRAMMER.FACTORY REPRESENTATIVE [address] [facility] [place] [address] Nurse Practitioner [facility] 10/15/24 Gladys Da Silva DELPHI PROGRAMMER.FACTORY REPRESENTATIVE [address] [facility] [address] Nurse Practitioner [facility] 10/15/24 Retirement Officer Relationship Specialty Start Date End Date Hetal Carter PA-C PCP - General Family Medicine 10/28/17 Steven Akers DO [address] [facility] [place] [address] Hematology/Oncology 10/08/24 Salena Ricardo RN Specialty Field Artillery Operations Specialist Oncology 10/08/24 Anita Laboy, DELPHI PROGRAMMER.FACTORY REPRESENTATIVE [address] [facility] [place] [address] Nurse Practitioner [facility] 10/15/24 Gladys Da Silva DELPHI PROGRAMMER.FACTORY REPRESENTATIVE [address] [facility] [address] Nurse Practitioner [facility] 10/15/24 Retirement Officer Relationship Specialty Start Date End Date Hetal Carter PA-C PCP - General Family Medicine 10/28/17 Steven Akers DO [address] [place] [address] Hematology/Oncology 10/08/24 Salena Ricardo RN Specialty Field Artillery Operations Specialist Oncology 10/08/24 Anita Laboy, DELPHI PROGRAMMER.FACTORY REPRESENTATIVE [address] [place] [address] Nurse Practitioner [facility] 10/15/24 Gladys Da Silva DELPHI PROGRAMMER.FACTORY REPRESENTATIVE [address] [facility] [address] Nurse Practitioner [facility] 10/15/24 Retirement Officer Relationship Specialty Start Date End Date Hetal Carter PA-C PCP - General Family Medicine 10/28/17 Steven Akers DO [address] [place] [address] Hematology/Oncology 10/08/24 Salena Ricardo RN Specialty Field Artillery Operations Specialist Oncology 10/08/24 Anita Laboy, DELPHI PROGRAMMER.FACTORY REPRESENTATIVE [address] [place] [address] Nurse Practitioner [facility] 10/15/24 Gladys Da Silva, DELPHI PROGRAMMER.FACTORY REPRESENTATIVE [address] [place] [address] Nurse Practitioner [facility] 10/15/24 Retirement Officer Relationship Specialty Start Date End Date Hetal Carter PA-C PCP - General Family Medicine 10/28/17 Steven Akers DO [address] [place] [address] Hematology/Oncology 10/08/24 Salena Ricardo RN Specialty Field Artillery Operations Specialist Oncology 10/08/24 Anita Laboy, HARVEY.FACTORY REPRESENTATIVE [address] [facility] [place] [address] Nurse Practitioner [facility] 10/15/24 Gladys Da Silva, DELPHI PROGRAMMER.FACTORY REPRESENTATIVE [address] [facility] [address] Nurse Practitioner [facility] 10/15/24 Retirement Officer Relationship Specialty Start Date End Date Hetal Carter PA-C PCP - General Family Medicine 10/28/17 Steven Akers DO [address] [place] [address] Hematology/Oncology 10/08/24 Salena Ricardo RN Specialty Field Artillery Operations Specialist Oncology 10/08/24 Anita Laboy, DELPHI PROGRAMMER.FACTORY REPRESENTATIVE [address] [place] [address] [facility] Family [facility] 10/15/24 Gladys Da Silva, DELPHI PROGRAMMER.FACTORY REPRESENTATIVE [address] [facility] [place] [address] [facility] Family [facility] 10/15/24 Retirement Officer Relationship Specialty Start Date End Date Steven Akers DO [address] [facility] [place] [address] Hematology/Oncology 10/08/24 Salena Ricardo RN Specialty Field Artillery Operations Specialist Oncology 10/08/24 Anita Laboy, DELPHI PROGRAMMER.FACTORY REPRESENTATIVE [address] [place] [address] Nurse Practitioner [facility] 10/15/24 Gladys Da Silva, DELPHI PROGRAMMER.FACTORY REPRESENTATIVE [address] [facility] [address] Nurse Practitioner [facility] 10/15/24 Retirement Officer Relationship Specialty Start Date End Date Steven Akers DO [address] [place] [address] Hematology/Oncology 10/08/24 Salena Ricardo RN Specialty Field Artillery Operations Specialist Oncology 10/08/24 Anita Laboy, DELPHI PROGRAMMER.FACTORY REPRESENTATIVE [address] [place] [address] Nurse Practitioner [facility] 10/15/24 Gladys Da Silva, DELPHI PROGRAMMER.FACTORY REPRESENTATIVE [address] [facility] [place] [address] Nurse Practitioner [facility] 10/15/24 Retirement Officer Relationship Specialty Start Date End Date Steven Akers DO [address] [place] [address] Hematology/Oncology 10/08/24 Salena Ricardo RN Specialty Field Artillery Operations Specialist Oncology 10/08/24 Anita Laboy, DELPHI PROGRAMMER.FACTORY REPRESENTATIVE [address] [place] [address] Nurse Practitioner [facility] 10/15/24 Gladys Da Silva, DELPHI PROGRAMMER.FACTORY REPRESENTATIVE [address] [facility] [address] Nurse Practitioner [facility] 10/15/24 Retirement Officer Relationship Specialty Start Date End Date Steven Akers DO [address] [place] [address] Hematology/Oncology 10/08/24 Salena Ricardo RN Specialty Field Artillery Operations Specialist Oncology 10/08/24 Anita Laboy, DELPHI PROGRAMMER.FACTORY REPRESENTATIVE [address] [place] [address] Nurse Practitioner [facility] 10/15/24 Gladys Da Silva, DELPHI PROGRAMMER.FACTORY REPRESENTATIVE [address] [facility] [address] Nurse Practitioner [facility] 10/15/24 Retirement Officer Relationship Specialty Start Date End Date Gladys Da Silva, DELPHI PROGRAMMER.FACTORY REPRESENTATIVE [address] [facility] [address] PCP - General Family Medicine 01/27/25 Steven Akers DO [address] [place] [address] Hematology/Oncology 10/08/24 Salena Ricardo RN Specialty Field Artillery Operations Specialist Oncology 10/08/24 Anita Laboy, DELPHI PROGRAMMER.FACTORY REPRESENTATIVE [address] [place] [address] Nurse Practitioner [facility] 10/15/24 Gladys Da Silva, DELPHI PROGRAMMER.FACTORY REPRESENTATIVE [address] [facility] [address] Nurse Practitioner [facility] 10/15/24 Retirement Officer Relationship Specialty Start Date End Date Gladys Da Silva, DELPHI PROGRAMMER.FACTORY REPRESENTATIVE [address] [facility] [address] PCP - General Family Medicine 01/27/25 Steven Akers DO [address] [place] [address] Hematology/Oncology 10/08/24 Salena Ricardo, RN Specialty Field Artillery Operations Specialist Oncology 10/08/24 Anita Laboy, HARVEY.FACTORY REPRESENTATIVE [address] [place] [address] Nurse Practitioner [facility] 10/15/24 Gladys Da Silva, DELPHI PROGRAMMER.FACTORY REPRESENTATIVE [address] [facility] [place] [address] Nurse Practitioner [facility] 10/15/24 Retirement Officer Relationship Specialty Start Date End Date Gladys Da Silva, DELPHI PROGRAMMER.FACTORY REPRESENTATIVE [address] [facility] [address] PCP - General Family Medicine 01/27/25 Steven Akers DO [address] [facility] [place] [address] Hematology/Oncology 10/08/24 Salena Ricardo RN Specialty Field Artillery Operations Specialist Oncology 10/08/24 Anita Laboy, DELPHI PROGRAMMER.FACTORY REPRESENTATIVE [address] [place] [address] Nurse Practitioner [facility] 10/15/24 Gladys Da Silva, DELPHI PROGRAMMER.FACTORY REPRESENTATIVE [address] [facility] [place] [address] Nurse Practitioner [facility] 10/15/24 Retirement Officer Relationship Specialty Start Date End Date Gladys Da Silva, DELPHI PROGRAMMER.FACTORY REPRESENTATIVE [address] [facility] [place] [address] PCP - General Family Medicine 01/27/25 Steven Akers DO [address] [place], [place] [address] Hematology/Oncology 10/08/24 Salena Ricardo RN Specialty Field Artillery Operations Specialist Oncology 10/08/24 Anita Laboy APRN.FACTORY REPRESENTATIVE [address] [place], [place] [id number] [facility] 10/15/24 Gladys Da Silva DELPHI PROGRAMMER.FACTORY REPRESENTATIVE [address] [place] [address] Formerly [facility] 10/15/24 Team Status: Active Member Role Status [...] [facility] Primary Care Provider Active Start: December 03, [...] January 28, 2025 End: March 21st, 2025 Retirement Officer Relationship Specialty Start Date End Date Suppan, Gladys A, DELPHI PROGRAMMER.FACTORY REPRESENTATIVE [address] [facility] [address] PCP - General Family Medicine 01/27/25 Steven Akers DO [address] [place] [address] Hematology/Oncology 10/08/24 Salena Ricardo RN Specialty Field Artillery Operations Specialist Oncology 10/08/24 Retirement Officer Relationship Specialty Start Date End Date Gladys Da Silva, DELPHI PROGRAMMER.FACTORY REPRESENTATIVE [address] [facility] [place] [address] PCP - General Family Medicine 01/27/25 Steven Akers DO [address] [facility] [place] [address] Hematology/Oncology 10/08/24 Salena Ricardo RN Specialty Field Artillery Operations Specialist Oncology 10/08/24 Retirement Officer Relationship Specialty Start Date End Date Gladys Da Silva, DELPHI PROGRAMMER.FACTORY REPRESENTATIVE [address] [facility] [place] [address] PCP - General Family Medicine 01/27/25 Steven Akers DO [address] [facility] [place] [address] Hematology/Oncology 10/08/24 Salena Ricardo RN Specialty Field Artillery Operations Specialist Oncology 10/08/24 Team Status: Active Member Role Status Dates PAWAN Ortiz Primary Care Provider Active Team Status: Inactive Member Role Status Dates Gladys Da Silva COCOA BEAN ROASTER HELPER Primary Care Provider Active Start: February 10, 2025 End: February 10, 2025 Dr. Esau Brothers DO Attending Provider Activ e Start: February 10, 2025 End: February 10, 2025 Dr. Esau Brothers DO Emergency Provider Activ e Start: February 10, 2025 End: February 10, 2025 Team Status: Active Member Role Status Dates Gladys Da Silva COCOA BEAN ROASTER HELPER Primary Care Provider Active Start: February 10, 2025 Dr. Lalo Felton MD Attending Provider Active S tart: February 10, 2025 Dr. Esau Brothers DO Referring Provider Activ e Start: February 10, 2025 Team Status: Inactive Member Role Status Dates Gladys Da Silva COCOA BEAN ROASTER HELPER Primary Care Provider Active Start: February 11, 2025 End: February 11, 2025 Dr. Steven Akers DO Attending Provider Active St art: February 11, 2025 End: February 11, 2025 Dr. Steven Akers DO Referring Provider Active St art: February 11, 2025 End: February 11, 2025 Team Status: Inactive Member Role Status Dates Gladys Da Silva , COCOA BEAN ROASTER HELPER Primary Care Provider Active Start: February 25, 2025 End: February 25, 2025 Dr. Steven Akers DO Attending Provider Active St art: February 25, 2025 End: February 25, 2025 Dr. Steven Akers DO Referring Provider Active St art: February 25, 2025 End: February 25, 2025 Retirement Officer Relationship Specialty Start Date End Date Gladys Da Silva APRN.FACTORY REPRESENTATIVE [address] [place] [address] PCP - General Family Medicine 01/27/25 Steven Akers DO [address] [place] [address] Hematology/Oncology 10/08/24 Salena Ricardo RN Specialty Field Artillery Operations Specialist Oncology 10/08/24 Retirement Officer Relationship Specialty Start Date End Date Gladys Da Silva APRN.FACTORY REPRESENTATIVE [address] [place], [place] [address] PCP - General Family Medicine 01/27/25 Steven Akers DO [address] [place] [address] Hematology/Oncology 10/08/24 Salena Ricardo RN Specialty Field Artillery Operations Specialist Oncology 10/08/24 Team Status: Inactive Member Role Status Dates Gladys Da Silva , COCOA BEAN ROASTER HELPER Primary Care Provider Active Start: March 11, 2025 End: March 11, 2025 Dr. Steven Akers DO Attending Provider Active St art: March 11, 2025 End: March 11, 2025 Dr. Steven Akers DO Referring Provider Active St art: March 11, 2025 End: March 11, 2025 Team Status: Inactive Member Role Status Dates Gladys Da Silva COCOA BEAN ROASTER HELPER Primary Care Provider Active Start: March 25, 2025 End: March 25, 2025 Dr. Steven Akers DO Attending Provider Active St art: March 25, 2025 End: March 25, 2025 Dr. Steven Akers DO Referring Provider Active St art: March 25, 2025 End: March 25, 2025 Retirement Officer Relationship Specialty Start Date End Date Gladys Da Silva APRN.FACTORY REPRESENTATIVE [address] [place], [place] [address] PCP - General Family Medicine 01/27/25 Steven Akers DO [address] [place], [place] [address] Hematology/Oncology 10/08/24 Salena Ricardo RN Specialty Field Artillery Operations Specialist Oncology 10/08/24 Team Status: Inactive Member Role Status Dates Gladys Da Silva COCOA BEAN ROASTER HELPER Primary Care Provider Active Start: April 08, 2025 End: April 08, 2025 Dr. Steven Akers DO Attending Provider Active St art: April 08, 2025 End: April 08, 2025 Dr. Steven Akers DO Referring Provider Active St art: April 08, 2025 End: April 08, 2025 Retirement Officer Relationship Specialty Start Date End Date Gladys Da Silva APRN.FACTORY REPRESENTATIVE [address] [place] [address] PCP - General Family Medicine 01/27/25 Steven Akers DO [address] [facility] [place] [address] Hematology/Oncology 10/08/24 Salena Ricardo RN Specialty Field Artillery Operations Specialist Oncology 10/08/24 Retirement Officer Relationship Specialty Start Date End Date Gladys Da Silva DELPHI PROGRAMMER.FACTORY REPRESENTATIVE [address] [facility] [address] PCP - General Family Medicine 01/27/25 Steven Akers DO [address] [facility] [place] [address] Hematology/Oncology 10/08/24 Salena Ricardo RN Specialty Field Artillery Operations Specialist Oncology 10/08/24 Retirement Officer Relationship Specialty Start Date End Date Gladys Da Silva DELPHI PROGRAMMER.FACTORY REPRESENTATIVE [address] [facility] [address] PCP - General Family Medicine 01/27/25 Steven Akers DO [address] [facility] [place] [address] Hematology/Oncology 10/08/24 Salena Ricardo RN Specialty Field Artillery Operations Specialist Oncology 10/08/24 Team Status: Inactive Member Role Status Dates PAWAN Ortiz Primary Care Provider Active Start: April 22, 2025 End: April 22, 2025 Dr. Steven Akers DO Attending Provider Active St art: April 22, 2025 End: April 22, 2025 Dr. Steven Akers DO Referring Provider Active St art: April 22, 2025 End: April 22, 2025 Retirement Officer Relationship Specialty Start Date End Date Gladys Da Silva DELPHI PROGRAMMER.FACTORY REPRESENTATIVE [address] [place] [address] PCP - General Family Medicine 01/27/25 Steven Akers DO [address] [place] [address] Hematology/Oncology 10/08/24 Salena Ricardo RN Specialty Field Artillery Operations Specialist Oncology 10/08/24 Team Status: Active Member Role/Relationship Status Dates Gladys Da Silva , COCOA BEAN ROASTER HELPER Primary Care Provider Active Team Status: Inactive [...] Role/Relationship Status Dates Gladys Da Silva , COCOA BEAN ROASTER HELPER Primary Care Provider Active Start: February 10, 2025 End: February 10, 2025 Dr. Esau Brothers DO Attending Provider Activ e Start: February 10, 2025 End: February 10, 2025 Dr. Esau Brothers DO Emergency Provider Activ e Start: February 10, 2025 End: February 10, 2025 Team Status: Active Member Role/Relationship Status Dates Gladys Da Silva COCOA BEAN ROASTER HELPER Primary Care Provider Active Start: February 10, 2025 Dr. Lalo Felton MD Attending Provider Active S tart: February 10, 2025 Dr. Esau Brothers DO Referring Provider Activ e Start: February 10, 2025 Team Status: Inactive Member Role/Relationship Status Dates Gladys Da Silva , COCOA BEAN ROASTER HELPER Primary Care Provider Active Start: February 11, 2025 End: February 11, 2025 Dr. Steven Akers DO Attending Provider Active St art: February 11, 2025 End: February 11, 2025 Dr. Steven Akers , Referring Provider Active St art: February 11, 2025 End: February 11, 2025 Team Status: Inactive Member Role/Relationship Status Dates Gladys Da Silva , COCOA BEAN ROASTER HELPER Primary Care Provider Active Start: February 25, 2025 End: February 25, 2025 Dr. Steven Akers , Attending Provider Active St art: February 25, 2025 End: February 25, 2025 Dr. Steven Akers , Referring Provider Active St art: February 25, 2025 End: February 25, 2025 Team Status: Inactive Member Role/Relationship Status Dates Gladys Da Silva , COCOA BEAN ROASTER HELPER Primary Care Provider Active Start: March 11, 2025 End: March 11, 2025 Dr. Steven Akers , Attending Provider Active St art: March 11, 2025 End: March 11, 2025 Dr. Steven Akers DO Referring Provider Active St art: March 11, 2025 End: March 11, 2025 Team Status: Inactive Member Role/Relationship Status Dates Gladys Da Silva , COCOA BEAN ROASTER HELPER Primary Care Provider Active Start: March 25, 2025 End: March 25, 2025 Dr. Steven Akers DO Attending Provider Active St art: March 25, 2025 End: March 25, 2025 Dr. Steven Akers , Referring Provider Active St art: March 25, 2025 End: March 25, 2025 Team Status: Inactive Member Role/Relationship Status Dates Gladys Da Silva , COCOA BEAN ROASTER HELPER Primary Care Provider Active Start: April 08, 2025 End: April 08, 2025 Dr. Steven Akers DO Attending Provider Active St art: April 08, 2025 End: April 08, 2025 Dr. Steven Akers DO Referring Provider Active St art: April 08, 2025 End: April 08, 2025 Team Status: Inactive Member Role/Relationship Status Dates Gladys Da Silva , COCOA BEAN ROASTER HELPER Primary Care Provider Active Start: April 22, 2025 End: April 22, 2025 Dr. Steven Akers DO Attending Provider Active St art: April 22, 2025 End: April 22, 2025 Dr. Steven Akers DO Referring Provider Active St art: April 22, 2025 End: April 22, 2025 Team Status: Inactive Member Role/Relationship Status Dates Gladys Da Silva , COCOA BEAN ROASTER HELPER Primary Care Provider Active Start: May 06, [...] Role/Relationship Status Dates Gladys Da Silva , COCOA BEAN ROASTER HELPER Primary Care Provider Active Start: February 10, 2025 End: February 10, 2025 Dr. Esau Brothers DO Attending Provider Activ e Start: February 10, 2025 End: February 10, 2025 Dr. Esau Brothers DO Emergency Provider Activ e Start: February 10, 2025 End: February 10, 2025 Team Status: Active Member Role/Relationship Status Dates Gladys Da Silva , COCOA BEAN ROASTER HELPER Primary Care Provider Active Start: February 10, 2025 Dr. Lalo Felton MD Attending Provider Active S tart: February 10, 2025 Dr. Esau Brothers DO Referring Provider Activ e Start: February 10, 2025 Team Status: Inactive Member Role/Relationship Status Dates Gladys Da Silva , COCOA BEAN ROASTER HELPER Primary Care Provider Active Start: February 11, 2025 End: February 11, 2025 Dr. Steven Akers DO Attending Provider Active St art: February 11, 2025 End: February 11, 2025 Dr. Steven Akers DO Referring Provider Active St art: February 11, 2025 End: February 11, 2025 Team Status: Inactive Member Role/Relationship Status Dates Gladys Da Silva , COCOA BEAN ROASTER HELPER Primary Care Provider Active Start: February 25, 2025 End: February 25, 2025 Dr. Steven Akers DO Attending Provider Active St art: February 25, 2025 End: February 25, 2025 Dr. Steven Akers DO Referring Provider Active St art: February 25, 2025 End: February 25, 2025 Team Status: Inactive Member Role/Relationship Status Dates Gladys Da Silva , COCOA BEAN ROASTER HELPER Primary Care Provider Active Start: March 11, 2025 End: March 11, 2025 Dr. Steven Akers , Attending Provider Active St art: March 11, 2025 End: March 11, 2025 Dr. Stevne Akers DO Referring Provider Active St art: March 11, 2025 End: March 11, 2025 Team Status: Inactive Member Role/Relationship Status Dates Gladys Da Silva , COCOA BEAN ROASTER HELPER Primary Care Provider Active Start: March 25, 2025 End: March 25, 2025 Dr. Steven Akers , Attending Provider Active St art: March 25, 2025 End: March 25, 2025 Dr. Steven Akers , Referring Provider Active St art: March 25, 2025 End: March 25, 2025 Team Status: Inactive Member Role/Relationship Status Dates Gladys Da Silva , COCOA BEAN ROASTER HELPER Primary Care Provider Active Start: April 08, 2025 End: April 08, 2025 Dr. Steven Akers , Attending Provider Active St art: April 08, 2025 End: April 08, 2025 Dr. Steven Akers DO Referring Provider Active St art: April 08, 2025 End: April 08, 2025 Team Status: Inactive Member Role/Relationship Status Dates Gladys Da Silva , COCOA BEAN ROASTER HELPER Primary Care Provider Active Start: April 22, 2025 End: April 22, 2025 Dr. Steven Akers DO Attending Provider Active St art: April 22, 2025 End: April 22, 2025 Dr. Steven Akers DO Referring Provider Active St art: April 22, 2025 End: April 22, 2025 Team Status: Inactive Member Role/Relationship Status Dates Gladys Da Silva , COCOA BEAN ROASTER HELPER Primary Care Provider Active Start: May 06, 2025 End: May 06, 2025 Dr. Steven Akers DO Attending Provider Active St art: May 06, 2025 End: May 06, 2025 Dr. Steven Akers DO Referring Provider Active St art: May 06, 2025 End: May 06, 2025 Team Status: Inactive Member Role/Relationship Status Dates Gladys Da Silva , COCOA BEAN ROASTER HELPER Primary Care Provider Active Start: May 20, 2025 End: May 20, 2025 Dr. Steven Akers , Attending Provider Active St art: May 20, 2025 End: May 20, 2025 Dr. Steven Akers , Referring Provider Active St art: May 20, 2025 End: May 20, 2025 Team Status: Inactive Member Role/Relationship Status Dates Gladys Da Silva , COCOA BEAN ROASTER HELPER Primary Care Provider Active Start: February 10, 2025 End: February 10, 2025 Dr. Esau Brothers DO Attending Provider Activ e Start: February 10, 2025 End: February 10, 2025 Dr. Esau Brothers DO Emergency Provider Activ e Start: February 10, 2025 End: February 10, 2025 Team Status: Active Member Role/Relationship Status Dates Gladys Da Silva , COCOA BEAN ROASTER HELPER Primary Care Provider Active Start: February 10, 2025 Dr. Lalo Felton MD Attending Provider Active S tart: February 10, 2025 Dr. Esau Brothers DO Referring Provider Activ e Start: February 10, 2025 Team Status: Inactive Member Role/Relationship Status Dates Gladys Da Silva , COCOA BEAN ROASTER HELPER Primary Care Provider Active Start: February 11, 2025 End: February 11, 2025 Dr. Steven Akers DO Attending Provider Active St art: February 11, 2025 End: February 11, 2025 Dr. Steven Akers DO Referring Provider Active St art: February 11, 2025 End: February 11, 2025 Team Status: Inactive Member Role/Relationship Status Dates Gladys Da Silva , COCOA BEAN ROASTER HELPER Primary Care Provider Active Start: February 25, 2025 End: February 25, 2025 Dr. Steven Akers DO Attending Provider Active St art: February 25, 2025 End: February 25, 2025 Dr. Steven Akers DO Referring Provider Active St art: February 25, 2025 End: February 25, 2025 Team Status: Inactive Member Role/Relationship Status Dates Gladys Da Silva , COCOA BEAN ROASTER HELPER Primary Care Provider Active Start: March 11, 2025 End: March 11, 2025 Dr. Steven Akers DO Attending Provider Active St art: March 11, 2025 End: March 11, 2025 Dr. Steven Akers DO Referring Provider Active St art: March 11, 2025 End: March 11, 2025 Team Status: Inactive Member Role/Relationship Status Dates Gladys Da Silva , COCOA BEAN ROASTER HELPER Primary Care Provider Active Start: March 25, 2025 End: March 25, 2025 Dr. Steven Akers , Attending Provider Active St art: March 25, 2025 End: March 25, 2025 Dr. Steven Akers DO Referring Provider Active St art: March 25, 2025 End: March 25, 2025 Team Status: Inactive Member Role/Relationship Status Yair Da Silva , COCOA BEAN ROASTER HELPER Primary Care Provider Active Start: April 08, 2025 End: April 08, 2025 Dr. Steven Akers DO Attending Provider Active St art: April 08, 2025 End: April 08, 2025 Dr. Steven Akers DO Referring Provider Active St art: April 08, 2025 End: April 08, 2025 Team Status: Inactive Member Role/Relationship Status Yair Da Silva , COCOA BEAN ROASTER HELPER Primary Care Provider Active Start: April 22, 2025 End: April 22, 2025 Dr. Steven Akers DO Attending Provider Active St art: April 22, 2025 End: April 22, 2025 Dr. Steven Akers DO Referring Provider Active St art: April 22, 2025 End: April 22, 2025 Team Status: Inactive Member Role/Relationship Status Yair Da Silva , COCOA BEAN ROASTER HELPER Primary Care Provider Active Start: May 06, 2025 End: May 06, 2025 Dr. Steven Akers DO Attending Provider Active St art: May 06, 2025 End: May 06, 2025 Dr. Steven Akers DO Referring Provider Active St art: May 06, 2025 End: May 06, 2025 Team Status: Inactive Member Role/Relationship Status Yair Da Silva , COCOA BEAN ROASTER HELPER Primary Care Provider Active Start: May 20, 2025 End: May 20, 2025 Dr. Steven Akers DO Attending Provider Active St art: May 20, 2025 End: May 20, 2025 Dr. Steven Akers DO Referring Provider Active St art: May 20, 2025 End: May 20, 2025 Team Status: Inactive Member Role/Relationship Status Yair Da Silva , COCOA BEAN ROASTER HELPER Primary Care Provider Active Start: June 03, 2025 End: June 03, 2025 Dr. Steven Akers DO Attending Provider Active St art: June 03, 2025 End: June 03, 2025 Dr. Steven Akers , Referring Provider Active St art: June 03, 2025 End: June 03, 2025 Team Status: Inactive Member Role/Relationship Status Dates Gladys Da Silva , COCOA BEAN ROASTER HELPER Primary Care Provider Active Start: February 25, 2025 End: February 25, 2025 Dr. Steven Akers , Attending Provider Active St art: February 25, 2025 End: February 25, 2025 Dr. Steven Akers , Referring Provider Active St art: February 25, 2025 End: February 25, 2025 Team Status: Inactive Member Role/Relationship Status Dates Gladys Da Silva , COCOA BEAN ROASTER HELPER Primary Care Provider Active Start: March 11, 2025 End: March 11, 2025 Dr. Steven Akers , Attending Provider Active St art: March 11, 2025 End: March 11, 2025 Dr. Steven Akers DO Referring Provider Active St art: March 11, 2025 End: March 11, 2025 Team Status: Inactive Member Role/Relationship Status Dates Gladys Da Silva , COCOA BEAN ROASTER HELPER Primary Care Provider Active Start: March 25, 2025 End: March 25, 2025 Dr. Steven Akers DO Attending Provider Active St art: March 25, 2025 End: March 25, 2025 Dr. Steven Akers , Referring Provider Active St art: March 25, 2025 End: March 25, 2025 Team Status: Inactive Member Role/Relationship Status Dates Gladys Da Silva , COCOA BEAN ROASTER HELPER Primary Care Provider Active Start: April 08, 2025 End: April 08, 2025 Dr. Steven Akers DO Attending Provider Active St art: April 08, 2025 End: April 08, 2025 Dr. Steven Akers DO Referring Provider Active St art: April 08, 2025 End: April 08, 2025 Team Status: Inactive Member Role/Relationship Status Dates Gladys Da Silva , COCOA BEAN ROASTER HELPER Primary Care Provider Active Start: April 22, 2025 End: April 22, 2025 Dr. Steven Akers DO Attending Provider Active St art: April 22, 2025 End: April 22, 2025 Dr. Steven Akers DO Referring Provider Active St art: April 22, 2025 End: April 22, 2025 Team Status: Inactive Member Role/Relationship Status Dates Gladys Da Silva , COCOA BEAN ROASTER HELPER Primary Care Provider Active Start: May 06, 2025 End: May 06, 2025 Dr. Steven Akers DO Attending Provider Active St art: May 06, 2025 End: May 06, 2025 Dr. Steven Akers DO Referring Provider Active St art: May 06, 2025 End: May 06, 2025 Team Status: Inactive Member Role/Relationship Status Dates Gladys Da Silva , COCOA BEAN ROASTER HELPER Primary Care Provider Active Start: May 20, 2025 End: May 20, 2025 Dr. Steven Akers DO Attending Provider Active St art: May 20, 2025 End: May 20, 2025 Dr. Steven Akers DO Referring Provider Active St art: May 20, 2025 End: May 20, 2025 Team Status: Inactive Member Role/Relationship Status Dates Gladys Da Silva , COCOA BEAN ROASTER HELPER Primary Care Provider Active Start: June 03, 2025 End: June 03, 2025 Dr. Steven Akers DO Attending Provider Active St art: June 03, 2025 End: June 03, 2025 Dr. Steven Akers DO Referring Provider Active St art: June 03, 2025 End: June 03, 2025 Team Status: Inactive Member Role/Relationship Status Dates Gladys Da Silva , COCOA BEAN ROASTER HELPER Primary Care Provider Active Start: June 17, 2025 End: June 17, 2025 Dr. Steven Akers DO Attending Provider Active St art: June 17, 2025 End: June 17, 2025 Dr. Steven Akers DO Referring Provider Active St art: June 17, 2025 End: June 17, 2025 Retirement Officer Relationship Specialty Start Date End Date Gladys Da Silva APRN.FACTORY REPRESENTATIVE [address] [place] [address] PCP - General Family Medicine 01/27/25 Steven Akers DO [address] [place], [place] [address] Hematology/Oncology 10/08/24 Salena Ricardo RN Specialty Field Artillery Operations Specialist Oncology 10/08/24 Retirement Officer Relationship Specialty Start Date End Date Gladys Da Silva APRN.FACTORY REPRESENTATIVE [address] [place] [address] PCP - General Family Medicine 01/27/25 Steven Akers DO [address] [place] [address] Hematology/Oncology 10/08/24 Salena Ricardo RN Specialty Field Artillery Operations Specialist Oncology 10/08/24 Team Status: Inactive Member Role/Relationship Status Dates Gladys Da Silva COCOA BEAN ROASTER HELPER Primary Care Provider Active Start: March 11, 2025 End: March 11, 2025 Dr. Steven Akers DO Attending Provider Active St art: March 11, 2025 End: March 11, 2025 Dr. Steven Akers DO Referring Provider Active St art: March 11, 2025 End: March 11, 2025 Team Status: Inactive Member Role/Relationship Status Dates Gladys Da Silva COCOA BEAN ROASTER HELPER Primary Care Provider Active Start: March 25, 2025 End: March 25, 2025 Dr. Steven Akers DO Attending Provider Active St art: March 25, 2025 End: March 25, 2025 Dr. Steven Akers DO Referring Provider Active St art: March 25, 2025 End: March 25, 2025 Team Status: Inactive Member Role/Relationship Status Dates Gladys Da Silva COCOA BEAN ROASTER HELPER Primary Care Provider Active Start: April 08, 2025 End: April 08, 2025 Dr. Steven Akers DO Attending Provider Active St art: April 08, 2025 End: April 08, 2025 Dr. Steven Akers DO Referring Provider Active St art: April 08, 2025 End: April 08, 2025 Team Status: Inactive Member Role/Relationship Status Dates Gladys Da Silva COCOA BEAN ROASTER HELPER Primary Care Provider Active Start: April 22, 2025 End: April 22, 2025 Dr. Steven Akers DO Attending Provider Active St art: April 22, 2025 End: April 22, 2025 Dr. Steven Akers DO Referring Provider Active St art: April 22, 2025 End: April 22, 2025 Team Status: Inactive Member Role/Relationship Status Dates Gladys Da Silva COCOA BEAN ROASTER HELPER Primary Care Provider Active Start: May 06, 2025 End: May 06, 2025 Dr. Steven Akers DO Attending Provider Active St art: May 06, 2025 End: May 06, 2025 Dr. Steven Akers DO Referring Provider Active St art: May 06, 2025 End: May 06, 2025 Team Status: Inactive Member Role/Relationship Status Dates Gladys Da Silva , COCOA BEAN ROASTER HELPER Primary Care Provider Active Start: May 20, 2025 End: May 20, 2025 Dr. Steven Akers DO Attending Provider Active St art: May 20, 2025 End: May 20, 2025 Dr. Steven Akers DO Referring Provider Active St art: May 20, 2025 End: May 20, 2025 Team Status: Inactive Member Role/Relationship Status Dates Gladys Da Silva , COCOA BEAN ROASTER HELPER Primary Care Provider Active Start: June 03, 2025 End: June 03, 2025 Dr. Steven Akers DO Attending Provider Active St art: June 03, 2025 End: June 03, 2025 Dr. Steven Akers DO Referring Provider Active St art: June 03, 2025 End: June 03, 2025 Team Status: Inactive Member Role/Relationship Status Dates Gladys Da Silva , COCOA BEAN ROASTER HELPER Primary Care Provider Active Start: June 17, 2025 End: June 17, 2025 Dr. Steven Akers DO Attending Provider Active St art: June 17, 2025 End: June 17, 2025 Dr. Steven Akers DO Referring Provider Active St art: June 17, 2025 End: June 17, 2025 Team Status: Inactive Member Role/Relationship Status Dates Gladys Da Silva , [employer] ROASTER HELPER Primary Care Provider Active Start: July 01, 2025 End: July 01, 2025 Dr. Steven Akers DO Attending Provider Active St art: July 01, 2025 End: July 01, 2025 Dr. Steven Akers DO Referring Provider Active St art: July 01, 2025 End: July 01, 2025 Retirement Officer Relationship Specialty Start Date End Date Gladys Da Silva APRN.FACTORY REPRESENTATIVE [address] [place] [address] PCP - General Family Medicine 01/27/25 Steven Akers DO [address] [place] [address] Hematology/Oncology 10/08/24 Salena Ricardo RN Specialty Field Artillery Operations Specialist Oncology 10/08/24 Team Status: Inactive Member Role/Relationship Status Dates Gladys Da Silva , [employer] ROASTER HELPER Primary Care Provider Active Start: March 25, 2025 End: March 25, 2025 Dr. Steven Akers DO Attending Provider Active St art: March 25, 2025 End: March 25, 2025 Dr. Steven Akers DO Referring Provider Active St art: March 25, 2025 End: March 25, 2025 Team Status: Inactive Member Role/Relationship Status Dates Gladys Da Silva , [employer] ROASTER HELPER Primary Care Provider Active Start: April 08, 2025 End: April 08, 2025 Dr. Steven Akers DO Attending Provider Active St art: April 08, 2025 End: April 08, 2025 Dr. Steven Akers DO Referring Provider Active St art: April 08, 2025 End: April 08, 2025 Team Status: Inactive Member Role/Relationship Status Dates Gladys Da Silva , [employer] ROASTER HELPER Primary Care Provider Active Start: April 22, 2025 End: April 22, 2025 Dr. Steven Akers DO Attending Provider Active St art: April 22, 2025 End: April 22, 2025 Dr. Steven Akers DO Referring Provider Active St art: April 22, 2025 End: April 22, 2025 Team Status: Inactive Member Role/Relationship Status Dates Gladys Da Silva , [employer] ROASTER HELPER Primary Care Provider Active Start: May 06, 2025 End: May 06, 2025 Dr. Steven Akers DO Attending Provider Active St art: May 06, 2025 End: May 06, 2025 Dr. Steven Akers DO Referring Provider Active St art: May 06, 2025 End: May 06, 2025 Team Status: Inactive Member Role/Relationship Status Dates Gladys Da Silva , [employer] ROASTER HELPER Primary Care Provider Active Start: May 20, 2025 End: May 20, 2025 Dr. Steven Akers DO Attending Provider Active St art: May 20, 2025 End: May 20, 2025 Dr. Steven Akers DO Referring Provider Active St art: May 20, 2025 End: May 20, 2025 Team Status: Inactive Member Role/Relationship Status Dates Gladys Da Silva , [employer] ROASTER HELPER Primary Care Provider Active Start: June 03, 2025 End: June 03, 2025 Dr. Steven Akers DO Attending Provider Active St art: June 03, 2025 End: June 03, 2025 Dr. Steven Akers DO Referring Provider Active St art: June 03, 2025 End: June 03, 2025 Team Status: Inactive Member Role/Relationship Status Dates Gladys Da Silva , [employer] ROASTER HELPER Primary Care Provider Active Start: June 17, 2025 End: June 17, 2025 Dr. Steven Akers DO Attending Provider Active St art: June 17, 2025 End: June 17, 2025 Dr. Steven Akers DO Referring Provider Active St art: June 17, 2025 End: June 17, 2025 Team Status: Inactive Member Role/Relationship Status Dates Gladys Da Silva , [employer] ROASTER HELPER Primary Care Provider Active Start: July 01, 2025 End: July 01, 2025 Dr. Steven Akers DO Attending Provider Active St art: July 01, 2025 End: July 01, 2025 Dr. Steven Akers DO Referring Provider Active St art: July 01, 2025 End: July 01, 2025 Team Status: Inactive Member Role/Relationship Status Dates Gladys Da Silva , [employer] ROASTER HELPER Primary Care Provider Active Start: July 15, 2025 End: July 15, 2025 Dr. Steven Akers DO Attending Provider Active St art: July 15, 2025 End: July 15, 2025 Dr. Steven Akers DO Referring Provider Active St art: July 15, 2025 End: July 15, 2025 Team Status: Active Member Role/Relationship Status Dates Gladys Da Silva , [employer] ROASTER HELPER Primary care physician Active Team Status: Inactive Member Role/Relationship Status Dates Gladys Da Silva , [employer] ROASTER HELPER Primary care physician Active Start: April 22, 2025 End: April 22, 2025 Dr. Steven Akers DO Attending physician Active S tart: April 22, 2025 End: April 22, 2025 Dr. Steven Akers DO Referring Provider Active St art: April 22, 2025 End: April 22, 2025 Team Status: Inactive Member Role/Relationship Status Dates Gladys Da Silva , [employer] ROASTER HELPER Primary care physician Active Start: May 06, 2025 End: May 06, 2025 Dr. Steven Akers , Attending physician Active S tart: May 06, 2025 End: May 06, 2025 Dr. Steven Akers DO Referring Provider Active St art: May 06, 2025 End: May 06, 2025 Team Status: Inactive Member Role/Relationship Status Dates Gladys Da Silva , [employer] ROASTER HELPER Primary care physician Active Start: May 20, 2025 End: May 20, 2025 Dr. Steven Akers DO Attending physician Active S tart: May 20, 2025 End: May 20, 2025 Dr. Steven Akers DO Referring Provider Active St art: May 20, 2025 End: May 20, 2025 Team Status: Inactive Member Role/Relationship Status Dates Gladys Da Silva , [employer] ROASTER HELPER Primary care physician Active Start: June 03, 2025 End: June 03, 2025 Dr. Steven Akers DO Attending physician Active S tart: June 03, 2025 End: June 03, 2025 Dr. Steven Akers DO Referring Provider Active St art: June 03, 2025 End: June 03, 2025 Team Status: Inactive Member Role/Relationship Status Dates Gladys Da Silva , [employer] ROASTER HELPER Primary care physician Active Start: June 17, 2025 End: June 17, 2025 Dr. Steven Akers DO Attending physician Active S tart: June 17, 2025 End: June 17, 2025 Dr. Steven Akers DO Referring Provider Active St art: June 17, 2025 End: June 17, 2025 Team Status: Inactive Member Role/Relationship Status Dates Gladys Da Silva [employer] ROASTER HELPER Primary care physician Active Start: July 01, 2025 End: July 01, 2025 Dr. Steven Akers DO Attending physician Active S tart: July 01, 2025 End: July 01, 2025 Dr. Steven Akers DO Referring Provider Active St art: July 01, 2025 End: July 01, 2025 Team Status: Inactive Member Role/Relationship Status Dates Gladys Da Silva , [employer] ROASTER HELPER Primary care physician Active Start: July 15, 2025 End: July 15, 2025 Dr. Steven Akers DO Attending physician Active S tart: July 15, 2025 End: July 15, 2025 Dr. Steven Akers DO Referring Provider Active St art: July 15, 2025 End: July 15, 2025 Team Status: Inactive Member Role/Relationship Status Dates Gladys Da Silva , [employer] ROASTER HELPER Primary care physician Active Start: July 29, 2025 End: July 29, 2025 Dr. Steven Akers , Attending physician Active S tart: July 29, 2025 End: July 29, 2025 Dr. Steven Akers DO Referring Provider Active St art: July 29, 2025 End: July 29, 2025 Team Status: Inactive Member Role/Relationship Status Dates Gladys Da Silva , [employer] ROASTER HELPER Primary care physician Active Start: August 12, 2025 End: August 12, 2025 Dr. Steven Akers , Attending physician Active S tart: August 12, 2025 End: August 12, 2025 Dr. Steven Akers DO Referring Provider Active St art: August 12, 2025 End: August 12, 2025 Team Status: Inactive Member Role/Relationship Status Yair Da Silva , [employer] ROASTER HELPER Primary care physician Active Start: May 20, 2025 End: May 20, 2025 Dr. Steven Akers DO Attending physician Active S tart: May 20, 2025 End: May 20, 2025 Dr. Steven Akers DO Referring Provider Active St art: May 20, 2025 End: May 20, 2025 Team Status: Inactive Member Role/Relationship Status Yair Da Silva , [employer] ROASTER HELPER Primary care physician Active Start: June 03, 2025 End: June 03, 2025 Dr. Steven Akers DO Attending physician Active S tart: June 03, 2025 End: June 03, 2025 Dr. Steven Akers DO Referring Provider Active St art: June 03, 2025 End: June 03, 2025 Team Status: Inactive Member Role/Relationship Status Yair Da Silva , [employer] ROASTER HELPER Primary care physician Active Start: June 17, 2025 End: June 17, 2025 Dr. Steven Akers DO Attending physician Active S tart: June 17, 2025 End: June 17, 2025 Dr. Steven Akers DO Referring Provider Active St art: June 17, 2025 End: June 17, 2025 Team Status: Inactive Member Role/Relationship Status Yair Da Silva , [employer] ROASTER HELPER Primary care physician Active Start: July 01, 2025 End: July 01, 2025 Dr. Steven Akers DO Attending physician Active S tart: July 01, 2025 End: July 01, 2025 Dr. Steven Akers DO Referring Provider Active St art: July 01, 2025 End: July 01, 2025 Team Status: Inactive Member Role/Relationship Status Dates Gladys Da Silva [employer] ROASTER HELPER Primary care physician Active Start: July 15, 2025 End: July 15, 2025 Dr. Steven Akers , Attending physician Active S tart: July 15, 2025 End: July 15, 2025 Dr. Steven Akers DO Referring Provider Active St art: July 15, 2025 End: July 15, 2025 Team Status: Inactive Member Role/Relationship Status Dates Gladys Da Silva [employer] ROASTER HELPER Primary care physician Active Start: July 29, 2025 End: July 29, 2025 Dr. Steven Akers DO Attending physician Active S tart: July 29, 2025 End: July 29, 2025 Dr. Steven Akers DO Referring Provider Active St art: July 29, 2025 End: July 29, 2025 Team Status: Inactive Member Role/Relationship Status Dates Gladys Da Silva [employer] ROASTER HELPER Primary care physician Active Start: August 12, 2025 End: August 12, 2025 Dr. Steven Akers DO Attending physician Active S tart: August 12, 2025 End: August 12, 2025 Dr. Steven Akers DO Referring Provider Active St art: August 12, 2025 End: August 12, 2025 Team Status: Inactive Member Role/Relationship Status Yair Da Silva [employer] ROASTER HELPER Primary care physician Active Start: August 26, 2025 End: August 26, 2025 Dr. Steven Akers DO Attending physician Active S tart: August 26, 2025 End: August 26, 2025 Dr. Steven Akers DO Referring Provider Active St art: August 26, 2025 End: August 26, 2025 Team Status: Inactive Member Role/Relationship Status Dates Gladys Da Silva [employer] ROASTER HELPER Primary care physician Active Start: September 09, [...] section and content) DATE CREATED AUTHOR 09/10/2025 [facility] DATE CREATED AUTHOR AUTHOR'S ORGANIZ ATION 09/18/2025 [facility] FOR RECORDS PERTAINING TO PATIENTS WHO ARE [...] BE BASED ON THE PRIMARY CLINICAL RECORDS. [facility] provides no warranty or guarantee of the accuracy or completeness of information in this document.
== END 2025-11-04 23:59 | disposition home or self-care (01) ==
LOC: MEDOUTP 08:35
PROVIDERS: PCP Clinical Nurse Specialist Adult Health; Referring Provider Internal Medicine Hematology & Oncology; Visit Provider Internal Medicine Hematology & Oncology
DX: D46.Z Other myelodysplastic syndromes (principal)
CPT/HCPCS: 36430; 86850; 86900; 86901; P9016; A4216